=== PATIENT | male | born 1965 | race Caucasian/White ===

== ENCOUNTER 2016-07-16 17:17 | Inpatient (IN) | payer OTHER ==
[2016-07-16] MEDS ORDERED: SODIUM CHLORIDE 0.9% 1,000 ML IV STA (17:31)
[2016-07-16] MEDS ORDERED: RX INFO: IV CONTRAST WAS GIVEN 1 EACH MISC MISCELLANE PRN (17:31)
[2016-07-16] MEDS ORDERED: LORazepam 2 MG/ML SYRINGE IV STA (17:34)
[2016-07-16 17:36] LABS: Glucose,Whole Blood 93 mg/dL (75-99)
--- NOTE | 2016-07-16 17:36 | ED ---
General Adult HPI - General Chief complaint: Neuro Symptoms/Deficit Stated complaint: Right-sided weakness Time Seen by Provider: 07/16/16 17:24 Source: patient, family, RN notes reviewed Mode of arrival: wheelchair Limitations: no limitations - History of Present Illness Initial comments: Patient is a pleasant 50-year-old male presenting to the emergency Department with right sided weakness. Patient states around 3:00 he was walking and [employer] when his right arm suddenly dropped. Patient feels his right arm has mostly been weak since that time. Patient has had some twitching of the right arm. Patient has had twitching of the right face mostly persistent since that time. Patient did have some mild involvement of the right leg however that has been coming and going. Patient did have similar symptoms around a year ago associated with a stroke. No confusion. - Related Data Home Medications Medication Instructions Recorded Confirmed Buprenorphine HCl/Naloxone HCl 1 film SUBLINGUAL DAILY 07/16/16 07/16/16 [Suboxone 2 mg-0.5 mg Sl Film] Carvedilol [Coreg] 25 mg PO BID 07/16/16 07/16/16 QUEtiapine [SEROquel] 50 mg PO HS 07/16/16 07/16/16 Valsartan/Hydrochlorothiazide 1 tab PO DAILY 07/16/16 07/16/16 [Diovan Hct 160-25 mg Tablet] amLODIPine [Norvasc] 10 mg PO DAILY 07/16/16 07/16/16 hydrALAZINE HCL [Apresoline] 50 mg PO BID 07/16/16 07/16/16 levETIRAcetam [Keppra] 500 mg PO BID 07/16/16 07/16/16 Previous Rx's Medication Instructions Recorded Escitalopram [Lexapro] 20 mg PO DAILY #30 tab 01/28/16 Allergies Allergy/AdvReac Type Severity Reaction Status Date / Time No Known Allergies Allergy Verified 07/16/16 17:21 Review of Systems ROS Statement: Those systems with pertinent positive or pertinent negative responses have been documented in the HPI. ROS Other: All systems not noted in ROS Statement are negative. Constitutional: Denies: fever Eyes: Denies: eye pain ENT: Denies: ear pain Respiratory: Denies: cough Cardiovascular: Denies: chest pain Endocrine: Denies: fatigue Gastrointestinal: Denies: abdominal pain Genitourinary: Denies: dysuria Musculoskeletal: Denies: back pain Skin: Denies: rash Neurological: Reports: weakness, numbness. Denies: headache, confusion Past Medical History Past Medical History: Chest Pain / Angina, CVA/TIA, GERD/Reflux, Hypertension, Memory Impairment, Seizure Disorder Additional Past Medical History / Comment(s): He was tx for L intraparenchymal hemorrhage with R sided weakness of arm and leg and aphasia/dysphagia. He was discharged from there to rehab and had improvement in his R sided weakness, now has minimal slurring of words and pt states dysphagia. Other HX L lung pneumothorax d/t trauma yrs ago, , History of Any Multi-Drug Resistant Organisms: None Reported Past Surgical History: No Surgical Hx Reported Additional Past Surgical History / Comment(s): COLONOSCOPY POLYPS REMOVED-NEG, bilateral cataract removal, R testicular surgery as a little boy. Past Anesthesia/Blood Transfusion Reactions: No Reported Reaction Additional Past Anesthesia/Blood Transfusion Reaction / Comment(s): Pt has never recieved blood. 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 PT resides with a friend. He is independent with his ADLs. He uses a walker some of the time. He is suppose to be starting home PT soon-he was recently discharged from rehab. Pt has hx of ETOH abuse-he quit drinking 3 yrs ago with one slip last 2013. He has hx of polysubstance abuse per old record but pt states he has not used meds not prescribed to him. He smoked marijuana he states as a young person. He has had suicidal idealations in the past- but not recently. Smoking Status: Current some day smoker Past Alcohol Use History: None Reported Additional Past Alcohol Use History / Comment(s): STARTED SMOKING AT AGE-7- used to SMOKE 1.5 PPD BUT started cutting down in the past 2-3 weeks. PT HAS'NT DRANK IN 3 YEARS BUT USED TO BINGE DRINK FOR DAYS AT A TIME-he had one slip last 2013. WHEN YOUNGER SMOKED MARIJUANA NONE NOW Past Drug Use History: Prescription Drug Abuse Additional Drug Use History / Comment(s): Pt has hx of polysubstance abuse per PMR-Adderall/xanax/flexeril, however pt currently denies this. - Past Family History Father Family Medical History: Cancer, Hyperlipidemia, Hypertension, Prostate Disorder Additional Family Medical History / Comment(s): DAD IS 73, PROSTATE CA Mother Family Medical History: Osteoarthritis (OA) Additional Family Medical History / Comment(s): MOM IS 71 General Exam Limitations: no limitations General appearance: alert, other (Patient is having right-sided facial twitching persistent during exam. Patient also has some episodes of right distal arm and hand twitching.) Head exam: Present: atraumatic, normocephalic Eye exam: Present: normal appearance, PERRL ENT exam: Present: normal oropharynx Neck exam: Present: normal inspection Respiratory exam: Present: normal lung sounds bilaterally Cardiovascular Exam: Present: regular rate, normal rhythm GI/Abdominal exam: Present: soft. Absent: tenderness Extremities exam: Present: normal inspection Neurological exam: Present: alert Expanded Neurological exam: Present: protecting the airway, other (Right facial palsy that does not affect the forehead) Cranial nerves: EOM's Intact: Normal, Facial Sensation: Abnormal Right Sensory exam: Upper Extremity Light Touch: Abnormal Right, Lower Extremity Light Touch: Normal Motor strength exam: RUE: 4, LUE: 5, RLE: 5, LLE: 5 Eye Response: (4) open spontaneously Motor Response: (6) obeys commands Verbal Response: (5) oriented Psychiatric exam: Present: normal affect, normal mood Skin exam: Absent: rash Course Vital Signs 07/16/16 17:18 Temperature 97.6 F Pulse Rate 68 Respiratory 20 Rate Blood Pressure 136/78 O2 Sat by Pulse 100 Oximetry - Reevaluation(s) Reevaluation #1: 07/16/16 18:03 There is question of onset could have been around 2:00 however they feel was likely more 3:00. Patient has had some seizure activity. Patient does have 2 episodes of intercranial hemorrhage in 2015 and again in 2016. Secondary to all of these patient is felt to not be a good candidate for TPA. Case was discussed in detail with Dr. Dhillon who is in agreement the patient is not a good candidate for TPA. He has reviewed computed tomography scan and will still evaluate patient. Patient and family were updated. EKG Findings - EKG Comments: EKG Findings:: Sinus rhythm at 69. First degree AV block with a NE of 228. QRS 90. QT 418. QTC 447. Normal axis. Normal QRS. Normal ST-T. Medical Decision Making - Medical Decision Making Patient reevaluated and updated. did evaluate patient and recommends medical admission with aspirin and Lipitor and continued Keppra. Dr. Ervin has been paged for admission. - Lab Data Result diagrams: 07/16/16 17:32 07/16/16 17:32 Lab Results 07/16/16 07/16/16 07/16/16 Range/Units 17:32 17:32 17:32 WBC 5.7 (3.8-10.6) k/uL RBC 3.90 L (4.30-5.90) m/uL Hgb 12.2 L (13.0-17.5) gm/dL Hct 36.3 L (39.0-53.0) % MCV 93.2 (80.0-100.0) fL MCH 31.3 (25.0-35.0) pg MCHC 33.6 (31.0-37.0) g/dL RDW 12.5 (11.5-15.5) % Plt Count 261 (150-450) k/uL Neutrophils % 51 % Lymphocytes % 35 % Monocytes % 7 % Eosinophils % 4 % Basophils % 1 % Neutrophils # 2.9 (1.3-7.7) k/uL Lymphocytes # 2.0 (1.0-4.8) k/uL Monocytes # 0.4 (0-1.0) k/uL Eosinophils # 0.2 (0-0.7) k/uL Basophils # 0.1 (0-0.2) k/uL PT (9.0-12.0) sec INR (<1.1) APTT (22.0-30.0) sec Sodium 137 (137-145) mmol/L Potassium 4.7 (3.5-5.1) mmol/L Chloride 107 (98-107) mmol/L Carbon Dioxide 21 L (22-30) mmol/L Anion Gap 9 mmol/L BUN 29 H (9-20) mg/dL Creatinine 1.52 H (0.66-1.25) mg/dL Est GFR (MDRD) Af Amer 59 (>60 ml/min/1.73 sqM) Est GFR (MDRD) Non-Af 48 (>60 ml/min/1.73 sqM) Glucose 89 (74-99) mg/dL POC Glucose (mg/dL) (75-99) mg/dL POC Glu Yarn Dyer ID Calcium 9.6 (8.4-10.2) mg/dL Total Bilirubin 0.6 (0.2-1.3) mg/dL AST 15 L (17-59) U/L ALT 20 L (21-72) U/L Alkaline Phosphatase 47 (38-126) U/L Total Creatine Kinase 64 (55-170) U/L CK-MB (CK-2) 0.3 (0.0-2.4) ng/mL CK-MB (CK-2) Rel Index 0.5 Troponin I <0.012 (0.000-0.034) ng/mL Total Protein 7.1 (6.3-8.2) g/dL Albumin 4.4 (3.5-5.0) g/dL 07/16/16 07/16/16 Range/Units 17:32 17:35 WBC (3.8-10.6) k/uL RBC (4.30-5.90) m/uL Hgb (13.0-17.5) gm/dL Hct (39.0-53.0) % MCV (80.0-100.0) fL MCH (25.0-35.0) pg MCHC (31.0-37.0) g/dL RDW (11.5-15.5) % Plt Count (150-450) k/uL Neutrophils % % Lymphocytes % % Monocytes % % Eosinophils % % Basophils % % Neutrophils # (1.3-7.7) k/uL Lymphocytes # (1.0-4.8) k/uL Monocytes # (0-1.0) k/uL Eosinophils # (0-0.7) k/uL Basophils # (0-0.2) k/uL PT 10.3 (9.0-12.0) sec INR 1.0 (<1.1) APTT 24.5 (22.0-30.0) sec Sodium (137-145) mmol/L Potassium (3.5-5.1) mmol/L Chloride (98-107) mmol/L Carbon Dioxide (22-30) mmol/L Anion Gap mmol/L BUN (9-20) mg/dL Creatinine (0.66-1.25) mg/dL Est GFR (MDRD) Af Amer (>60 ml/min/1.73 sqM) Est GFR (MDRD) Non-Af (>60 ml/min/1.73 sqM) Glucose (74-99) mg/dL POC Glucose (mg/dL) 93 (75-99) mg/dL POC Glu Yarn Dyer ID Angela Geiger Calcium (8.4-10.2) mg/dL Total Bilirubin (0.2-1.3) mg/dL AST (17-59) U/L ALT (21-72) U/L Alkaline Phosphatase (38-126) U/L Total Creatine Kinase (55-170) U/L CK-MB (CK-2) (0.0-2.4) ng/mL CK-MB (CK-2) Rel Index Troponin I (0.000-0.034) ng/mL Total Protein (6.3-8.2) g/dL Albumin (3.5-5.0) g/dL - Radiology Data Radiology results: report reviewed (CTA shows no acute significant stenosis.), image reviewed (Computed tomography scan of brain shows old left-sided infarct, no acute Gemelli.) Critical Care Time Critical Care Time: Yes Total Critical Care Time: 32 Disposition Clinical Impression: Cerebrovascular accident, Seizure Disposition: ADMITTED IP TO THIS [facility] Condition: Serious
[2016-07-16 17:50] LABS: Basophils # (A) 0.1 k/uL (0-0.2); Basophils % (A) 1 %; CH 32.1; CHCM 34.5; Eosinophils # (A) 0.2 k/uL (0-0.7); Eosinophils % (A) 4 %; HCT 36.3 % (39.0-53.0); HDW 2.21; HGB 12.2 gm/dL (13.0-17.5); Luc # (Auto) 0.11; Luc % (Auto) 2; Lymphocytes % (A) 35 %; MCH 31.3 pg (25.0-35.0); MCHC 33.6 g/dL (31.0-37.0); MCV 93.2 fL (80.0-100.0); Monocytes # (A) 0.4 k/uL (0-1.0); Monocytes % (A) 7 %; Neutrophils # (A) 2.9 k/uL (1.3-7.7); Neutrophils % (A) 51 %; RDW 12.5 % (11.5-15.5); WBC 5.7 k/uL (3.8-10.6); WBC (Perox) 5.74
[2016-07-16 17:57] LABS: Partial Thromboplastin Time 24.5 sec (22.0-30.0); Prothrombin Time 10.3 sec (9.0-12.0)
[2016-07-16 18:00] LABS: Calcium 9.6 mg/dL (8.4-10.2); Potassium 4.7 mmol/L (3.5-5.1); Total Bilirubin 0.6 mg/dL (0.2-1.3); Total Protein 7.1 g/dL (6.3-8.2)
--- NOTE | 2016-07-16 18:05 | CT ---
EXAMINATION TYPE: CT brain wo con for TPA DATE OF EXAM: 07/16/2016 5:55 PM COMPARISON: 03/30/2015 HISTORY: 50 year-old male history of stroke. Right sided weakness. TECHNIQUE: Examination was done in axial plane without intravenous contrast. Coronal and sagittal r econstructions performed. CT DLP: 1451.20 mGycm Automated exposure control for dose reduction was used. FINDINGS: There is no evidence of acute intracranial hemorrhage, acute ischemic changes, mass, mass-effect, or extra-axial fluid collection. There is no effacement of cerebral sulci or basal subarachnoid cister ns. There is no hydrocephalus. There is no midline shift. Gordon-white matter distinction is preserv ed. Redemonstrated hypodensity at the left frontoparietal junction compatible with prior infarct. Complete opacification of the posterior left ethmoid air cells. Orbits and globes are intact. Mastoid air cells well pneumatized. 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 No acute intracranial abnormality seen. Follow-up CT or MRI if symptoms persist.
--- NOTE | 2016-07-16 18:12 | CT ---
EXAMINATION TYPE: CT angio head neck DATE OF EXAM: 07/16/2016 6:09 PM COMPARISON: Correlation CT brain same day HISTORY: 50-year-old male right-sided weakness, neurologic deficits. TECHNIQUE: Contiguous axial scanning of the neck and brain performed after administration of 65 mL Om nipaque 350 IV contrast. Coronal and sagittal MIP reconstructions performed. 3-D reconstructions gene rated on a dedicated independent workstation. CT DLP: 1451.2 mGycm Automated exposure control for dose reduction was used. FINDINGS: NECK: Conventional arch vessel branching anatomy. Both vertebral artery origins are patent and the vertebra l arteries are codominant and patent throughout her course. Both common carotid arteries are patent. No significant atherosclerotic change at the right carotid bifurcation. The right internal carotid ar bridget is patent. There is mild atherosclerotic change at the left carotid bulb without significant narrowing. HEAD: There is congenital variation of persistent origin of the right posterior cerebral artery Both vertebral, basilar, and internal carotid arteries remain patent. The anterior cerebral and middl e cerebral artery circulation appears satisfactory. No arterial occlusion, significant stenosis, or a neurysmal change is identified. IMPRESSION: 1. NO SIGNIFICANT COMMON CAROTID OR ICA STENOSIS ON EITHER SIDE. THE VERTEBRAL ARTERIES ARE CODOMINAN T AND PATENT. 2. 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 NO LARGE VESSEL INTRACRANIAL OCCLUSION, SIGNIFICANT STENOSIS, OR ANEURYSMAL CHANGE SEEN.
[2016-07-16 18:13] LABS: Creatine Kinase 64 U/L (55-170)
[2016-07-16 18:25] LABS: Creatine Kinase MB 0.3 ng/mL (0.0-2.4); Troponin I <0.012 ng/mL (0.000-0.034)
[2016-07-16] MEDS ORDERED: ASPIRIN 325 MG TAB PO STA (18:34)
[2016-07-16] MEDS ORDERED: ATORVASTATIN 80 MG TAB PO SCH (18:45)
--- NOTE | 2016-07-16 19:01 | XR ---
EXAMINATION TYPE: XR chest 1V portable DATE OF EXAM: 07/16/2016 6:36 PM Comparison: 01/19/2016 Clinical History: 50-year-old male, confusion, possible CVA, altered mental status Findings: The cardiomediastinal silhouette, aorta, and pulmonary vasculature are within normal limits. Some st zander atelectasis at the cardiac apex. Otherwise, lungs and pleural spaces are clear. Impression: No acute cardiopulmonary process.
[2016-07-16] MEDS ORDERED: SODIUM CHLORIDE 0.9% 500 ML IV STA (21:36)
[2016-07-16] MEDS: levETIRAcetam 500 MG TAB PO SCH (22:09)
[2016-07-16 22:15] VITALS: BMI 26.7
[2016-07-16] MEDS: SODIUM CHLORIDE 0.9% 1,000 ML IV SCH (22:24)
[2016-07-16] MEDS ORDERED: ACETAMINOPHEN TAB 325 MG TAB PO PRN (22:41)
[2016-07-16] MEDS ORDERED: QUEtiapine 50 MG TAB PO SCH (22:45)
[2016-07-17] MEDS: SODIUM CHLORIDE 0.9% 1,000 ML IV SCH ×3 (02:55→16:44)
[2016-07-17] MEDS: levETIRAcetam 500 MG TAB PO SCH ×2 (08:22→21:52)
[2016-07-17 08:59] LABS: Basophils # (A) 0.1 k/uL (0-0.2); Basophils % (A) 1 %; CH 31.6; CHCM 33.5; Eosinophils # (A) 0.2 k/uL (0-0.7); Eosinophils % (A) 3 %; HCT 31.2 % (39.0-53.0); HGB 10.4 gm/dL (13.0-17.5); Luc # (Auto) 0.08; Luc % (Auto) 2; Lymphocytes # (A) 1.8 k/uL (1.0-4.8); Lymphocytes % (A) 34 %; MCH 31.6 pg (25.0-35.0); MCHC 33.4 g/dL (31.0-37.0); MCV 94.8 fL (80.0-100.0); Mean Platelet Volume 7.1; Monocytes # (A) 0.3 k/uL (0-1.0); Monocytes % (A) 6 %; Neutrophils # (A) 2.9 k/uL (1.3-7.7); Neutrophils % (A) 54 %; RBC 3.29 m/uL (4.30-5.90); RDW 12.6 % (11.5-15.5); WBC 5.3 k/uL (3.8-10.6); WBC (Perox) 5.14
[2016-07-17] MEDS ORDERED: hydrALAZINE HCL 50 MG TAB PO SCH (09:00)
[2016-07-17] MEDS ORDERED: CARVEDILOL 12.5 MG TAB PO SCH (09:00)
[2016-07-17] MEDS ORDERED: amLODIPine 10 MG TAB PO SCH (09:00)
[2016-07-17 09:10] LABS: Calcium 8.4 mg/dL (8.4-10.2)
[2016-07-17] MEDS: ESCITALOPRAM 20 MG TAB PO SCH (10:00)
--- NOTE | 2016-07-17 10:45 | US ---
EXAMINATION TYPE: US carotid duplex BILAT DATE OF EXAM: 07/17/2016 9:00 AM COMPARISON: NONE CLINICAL HISTORY: Stenosis, CVA. EXAM MEASUREMENTS: RIGHT: Peak Systolic Velocity (PSV) cm/sec ----- Right CCA: 82.3 ----- Right ICA: 108.2 ----- Right ECA: 103.3 ICA/CCA ratio: 1.3 RIGHT: End Diastole cm/sec ----- Right CCA: 32.2 ----- Right ICA: 43.5 ----- Right ECA: 11.2 LEFT: Peak Systolic Velocity (PSV) cm/sec ----- Left CCA: 124.5 ----- Left ICA: 118.7 ----- Left ECA: 123.8 ICA/CCA ratio: 1.0 LEFT: End Diastole cm/sec ----- Left CCA: 39.1 ----- Left ICA: 42.2 ----- Left ECA: 26.8 VERTEBRALS (direction of flow): Right Vertebral: Antegrade Left Vertebral: Antegrade No significant velocity elevations. IMPRESSION: I DO NOT SEE EVIDENCE OF A HEMODYNAMICALLY SIGNIFICANT STENOSIS IN EITHER CAROTID SYSTEM. Criteria for Assigning % of Stenosis / Diameter reduction (Estimation based on the indirect measurements of the internal carotid artery velocities (ICA PSV). 1. Normal (no stenosis)=ICA PSV < 125 cm/s: ratio < 2.0: ICA EDV<40 cm/s. 2. Less than 50% stenosis=ICA PSV < 125 cm/s: ratio < 2.0: ICA EDV<40 cm/s. 3. 50 to 69% stenosis=ICA PSV of 125 to 230 cm/s: ration 2.0 ? 4.0: ICA EDV 40-100 cm/s. 4. Greater than 70% stenosis to near occlusion= ICA PSV > 230 cm/s: ratio > 4.0: ICA EDV > 100 cm/s. 5. Near occlusion= ICA PSV velocities may be low or undetectable: variable ratio and ICA EDV. 6. Total occlusion=unable to detect flow.
[2016-07-17] MEDS: ASPIRIN 325 MG TAB PO SCH (16:42)
--- NOTE | 2016-07-17 17:45 | P.HPIM ---
History of Present Illness H&P Date: 07/17/16 Chief Complaint: Right-sided weakness Patient is a 50-year-old male, with medical history significant for hemorrhagic CVA in 2015 with residual right arm numbness, GERD, hypertension, memory impairment, major depressive disorder, polysubstance abuse, alcohol abuse , and nicotine dependence. Patient presenting to the emergency department with complaints of right-sided weakness while he was walking stating his arm suddenly dropped. Patient also had some twitching of the right side of his face. CT of brain with evidence of old left frontoparietal junctional infarct. CT and graphically with no evidence of significant, carotid or ICA stenosis on either side. Carotid Doppler study with no evidence of significant stenosis in either carotid system. Chest x-ray with no acute cardiopulmonary process. Admission lab work with evidence of anemia with hemoglobin of 12.2 and acute renal failure with creatinine of 1.52. In the emergency department, patient was not felt to be a good candidate for TPA as time of onset was debatable. Patient was admitted to the selective care unit on aspirin, Lipitor, and Keppra will consult requested for neurology. Upon examination, patient is lying in bed. Patient states his right arm and leg still feels numb but less numb than yesterday. Patient denies recent illness, fevers, chills, shortness of breath, chest pain, headache, dysphagia, vision changes, tinnitus, abdominal pain, constipation or diarrhea, urinary frequency, urgency, or dysuria. Patient is urinating without difficulty. Past Medical History Past Medical History: Chest Pain / Angina, CVA/TIA, GERD/Reflux, Hypertension, Memory Impairment, Seizure Disorder Additional Past Medical History / Comment(s): He was tx for L intraparenchymal hemorrhage with R sided weakness of arm and leg and aphasia/dysphagia. He was discharged from there to rehab and had improvement in his R sided weakness, now has minimal slurring of words and pt states dysphagia. Other HX L lung pneumothorax d/t trauma yrs ago, , History of Any Multi-Drug Resistant Organisms: None Reported Past Surgical History: No Surgical Hx Reported Additional Past Surgical History / Comment(s): COLONOSCOPY POLYPS REMOVED-NEG, bilateral cataract removal, R testicular surgery as a little boy. Past Anesthesia/Blood Transfusion Reactions: No Reported Reaction Additional Past Anesthesia/Blood Transfusion Reaction / Comment(s): Pt has never recieved blood. 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 PT resides with a friend. He is independent with his ADLs. He uses a walker some of the time. He is suppose to be starting home PT soon-he was recently discharged from rehab. Pt has hx of ETOH abuse-he quit drinking 3 yrs ago with one slip last 2013. He has hx of polysubstance abuse per old record but pt states he has not used meds not prescribed to him. He smoked marijuana he states as a young person. He has had suicidal idealations in the past- but not recently. Smoking Status: Current every day smoker Past Alcohol Use History: None Reported Additional Past Alcohol Use History / Comment(s): STARTED SMOKING AT AGE-7- used to SMOKE 1.5 PPD Past Drug Use History: Prescription Drug Abuse Additional Drug Use History / Comment(s): Pt has hx of polysubstance abuse per PMR-Adderall/xanax/flexeril, however pt currently denies this. - Past Family History Father Family Medical History: Cancer, Hyperlipidemia, Hypertension, Prostate Disorder Additional Family Medical History / Comment(s): PROSTATE CA Mother Family Medical History: Osteoarthritis (OA) Additional Family Medical History / Comment(s): MOM IS 71 Medications and Allergies Home Medications Medication Instructions Recorded Confirmed Type Buprenorphine HCl/Naloxone HCl 1 film SUBLINGUAL DAILY 07/16/16 07/16/16 History [Suboxone 2 mg-0.5 mg Sl Film] Carvedilol [Coreg] 25 mg PO BID 07/16/16 07/16/16 History QUEtiapine [SEROquel] 50 mg PO HS 07/16/16 07/16/16 History Valsartan/Hydrochlorothiazide 1 tab PO DAILY 07/16/16 07/16/16 History [Diovan Hct 160-25 mg Tablet] amLODIPine [Norvasc] 10 mg PO DAILY 07/16/16 07/16/16 History hydrALAZINE HCL [Apresoline] 50 mg PO BID 07/16/16 07/16/16 History levETIRAcetam [Keppra] 500 mg PO BID 07/16/16 07/16/16 History Allergies Allergy/AdvReac Type Severity Reaction Status Date / Time No Known Allergies Allergy Verified 07/16/16 21:57 Physical Exam Vitals: Vital Signs Temp Pulse Pulse Pulse Resp BP BP 07/17/16 14:51 97.6 F 62 18 108/55 07/17/16 11:15 98.1 F 55 L 18 104/59 07/17/16 08:03 07/17/16 08:00 97.8 F 60 18 99/51 07/17/16 04:00 88 16 154/94 07/17/16 00:00 98.1 F 61 16 108/54 07/16/16 21:00 98.4 F 58 L 16 94/54 07/16/16 20:34 57 L 16 99/51 07/16/16 19:34 97.7 F 58 L 16 99/57 07/16/16 19:17 56 L 16 96/57 07/16/16 18:45 56 L 18 100/59 Pulse Ox 07/17/16 14:51 96 07/17/16 11:15 96 07/17/16 08:03 97 07/17/16 08:00 96 07/17/16 04:00 95 07/17/16 00:00 98 07/16/16 21:00 97 07/16/16 20:34 07/16/16 19:34 07/16/16 19:17 98 07/16/16 18:45 98 Intake and Output 07/17/16 07/17/16 07/17/16 06:59 14:59 22:59 Intake Total 875 1298.5 Output Total 450 250 Balance 425 1048.5 Intake: IV 875 1062.5 Sodium Chloride 0.9% 1, 875 1062.5 000 ml @ 125 mls/hr IV . Q8H [facility] Rx#:[id number] Oral 236 Output: Urine 450 250 Other: Voiding Method Urinal # Voids 1 Weight 75.1 kg 75.1 kg Patient Weight 07/18/16 06:59 Weight 75.1 kg GENERAL: Pt awake and alert, well-nourished, and in no acute distress. HEAD: Atraumatic, normocephalic. EYES: Pupils equal, round, and reactive to light, extraocular movements intact, sclera anicteric, conjunctiva are normal. ENT: Oropharynx clear without exudates. Moist mucous membranes. Tongue smooth, pink, no lesions, protrudes in midline. NECK:Normal range of motion, supple without lymphadenopathy or JVD. LUNGS: Breath sounds clear to auscultation bilaterally. No wheezes, rales, or rhonchi. HEART: Heart S1, S2, no S3 or S4. Regular rate and rhythm. No murmurs, rubs or gallops. ABDOMEN: Soft, nontender, nondistended, normoactive bowel sounds. No guarding, no rebound. No masses or organomegaly appreciated. EXTREMITIES: 2+ peripheral pulses. No edema. No calf tenderness. NEUROLOGICAL: Pt oriented x 3. Cranial nerves II through XII grossly intact. Strength and sensation slightly diminished to right upper extremity. Sensation slightly diminished to right lower extremity. PSYCH: Normal mood, normal affect. Normal speech. Good insight. Good judgment. SKIN: Warm, dry, intact. Normal turgor. No rashes or lesions. Results CBC & Chem 7: 07/17/16 08:33 07/17/16 08:33 Labs: Abnormal Lab Results - Last 24 Hours (Table) 07/17/16 07/17/16 Range/Units 08:33 08:33 RBC 3.29 L (4.30-5.90) m/uL Hgb 10.4 L (13.0-17.5) gm/dL Hct 31.2 L (39.0-53.0) % Chloride 110 H (98-107) mmol/L BUN 26 H (9-20) mg/dL Creatinine 1.51 H (0.66-1.25) mg/dL Glucose 132 H (74-99) mg/dL Chest x-ray: report reviewed Thrombosis Risk Factor Assmnt - DVT/VTE Prophylaxis DVT/VTE Prophylaxis: Mechanical Prophylaxis ordered - Choose All That Apply Any of the Below Risk Factors Present?: Yes Each Factor Represents 1 point: Age 41-60 years, Obesity (BMI >25) Other Risk Factors: No Other congenital or acquired thrombophilia - If yes, enter type in comment: Yes Each Risk Factor Represents 5 Points: Stroke (< 1 month) Thrombosis Risk Factor Assessment Total Risk Factor Score: 7 Thrombosis Risk Factor Assessment Level: High Risk Assessment and Plan Plan: Impression and plan: 1. Acute on chronic right-sided weakness suspect secondary to cerebrovascular accident. Neurology consult in place, recommendations pending. Continue full- strength aspirin, Lipitor 80 mg, advanced neuro assessments, PT/OT. 2. Right facial and right arm twitching suspect secondary to seizure activity. Continue Keppra 500 mg by mouth twice a day. 3. Anemia. Check iron studies. 3. Acute kidney injury suspect secondary to hypoperfusion and possible dehydration. Continue IV hydration. 4. History of hypertension. Will start blood pressure medication when systolic blood pressures greater than 140. 5. GERD. Continue Pepcid 20 mg daily. 6. Nicotine dependence. Smoking cessation encouraged. 7. History of seizures. Maintain seizure precautions. 8. History of polysubstance abuse in past. 9. History of remote alcohol abuse. 10. History of major depressive disorder. 11. DVT prophylaxis. Continue medical compression sleeves to bilateral lower extremities. Encouraged early ambulation. 12. GI prophylaxis. Continue Pepcid. 13. Repeat CBC and BMP in a.m. The above impression and plan have been discussed and directed Dr. Fisher. Mic WEISS acting as scribe for Dr. Fisher.
--- NOTE | 2016-07-17 18:24 | P.CNNES ---
History of Present Illness Consult date: 07/17/16 History of Present Illness: The patient is a 50-year-old man reports that yesterday around 3 PM he was at [facility] when suddenly his right arm became weaker. He states that he does have some right-sided weakness from a previous stroke one and a half years ago but yesterday while walking at [facility] his right arm became weaker and his right face seemed to droop more. Also felt some twitching of the right side of his face. That his arm became somewhat contorted towards his chest. Rent was with him drove him to the emergency room. Reports some improvement of symptoms today.'s right arm is now back to his baseline. Reports a history of seizures occurring 1-1/2 years ago at the time of his stroke. He states the stroke occurred 1-1/2 years ago and he reports taking medication for seizure. He the patient is on Keppra. 8 she is only had a total of 2 seizures. There was no reported seizure at [facility]. CT of the brain in the emergency room revealed old left frontoparietal infarct. He had a CTA which showed no significant stenosis he has also had a carotid ultrasound which was unremarkable Review of Systems Eyes: denies blurred vision, denies pain Cardiovascular: Denies chest pain, Denies shortness of breath Respiratory: Denies cough Neurological: Denies numbness, Denies weakness Psychiatric: Denies anxiety, Denies depression Past Medical History Past Medical History: Chest Pain / Angina, CVA/TIA, GERD/Reflux, Hypertension, Memory Impairment, Seizure Disorder Additional Past Medical History / Comment(s): He was tx for L intraparenchymal hemorrhage with R sided weakness of arm and leg and aphasia/dysphagia. He was discharged from there to rehab and had improvement in his R sided weakness, now has minimal slurring of words and pt states dysphagia. Other HX L lung pneumothorax d/t trauma yrs ago, , History of Any Multi-Drug Resistant Organisms: None Reported Past Surgical History: No Surgical Hx Reported Additional Past Surgical History / Comment(s): COLONOSCOPY POLYPS REMOVED-NEG, bilateral cataract removal, R testicular surgery as a little boy. Past Anesthesia/Blood Transfusion Reactions: No Reported Reaction Additional Past Anesthesia/Blood Transfusion Reaction / Comment(s): Pt has never recieved blood. 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 PT resides with a friend. He is independent with his ADLs. He uses a walker some of the time. He is suppose to be starting home PT soon-he was recently discharged from rehab. Pt has hx of ETOH abuse-he quit drinking 3 yrs ago with one slip last 2013. He has hx of polysubstance abuse per old record but pt states he has not used meds not prescribed to him. He smoked marijuana he states as a young person. He has had suicidal idealations in the past- but not recently. Smoking Status: Current every day smoker Past Alcohol Use History: None Reported Additional Past Alcohol Use History / Comment(s): STARTED SMOKING AT AGE-7- used to SMOKE 1.5 PPD Past Drug Use History: Prescription Drug Abuse Additional Drug Use History / Comment(s): Pt has hx of polysubstance abuse per PMR-Adderall/xanax/flexeril, however pt currently denies this. - Past Family History Father Family Medical History: Cancer, Hyperlipidemia, Hypertension, Prostate Disorder Additional Family Medical History / Comment(s): PROSTATE CA Mother Family Medical History: Osteoarthritis (OA) Additional Family Medical History / Comment(s): MOM IS 71 Medications and Allergies Home Medications Medication Instructions Recorded Confirmed Type Buprenorphine HCl/Naloxone HCl 1 film SUBLINGUAL DAILY 07/16/16 07/16/16 History [Suboxone 2 mg-0.5 mg Sl Film] Carvedilol [Coreg] 25 mg PO BID 07/16/16 07/16/16 History QUEtiapine [SEROquel] 50 mg PO HS 07/16/16 07/16/16 History Valsartan/Hydrochlorothiazide 1 tab PO DAILY 07/16/16 07/16/16 History [Diovan Hct 160-25 mg Tablet] amLODIPine [Norvasc] 10 mg PO DAILY 07/16/16 07/16/16 History hydrALAZINE HCL [Apresoline] 50 mg PO BID 07/16/16 07/16/16 History levETIRAcetam [Keppra] 500 mg PO BID 07/16/16 07/16/16 History Allergies Allergy/AdvReac Type Severity Reaction Status Date / Time No Known Allergies Allergy Verified 07/16/16 21:57 Physical Examination - Vital Signs Vital Signs: Vital Signs Temp Pulse Pulse Pulse Resp BP BP 07/17/16 14:51 97.6 F 62 18 108/55 07/17/16 11:15 98.1 F 55 L 18 104/59 07/17/16 08:03 07/17/16 08:00 97.8 F 60 18 99/51 07/17/16 04:00 88 16 154/94 07/17/16 00:00 98.1 F 61 16 108/54 07/16/16 21:00 98.4 F 58 L 16 94/54 07/16/16 20:34 57 L 16 99/51 07/16/16 19:34 97.7 F 58 L 16 99/57 07/16/16 19:17 56 L 16 96/57 07/16/16 18:45 56 L 18 100/59 Pulse Ox 07/17/16 14:51 96 07/17/16 11:15 96 07/17/16 08:03 97 07/17/16 08:00 96 07/17/16 04:00 95 07/17/16 00:00 98 07/16/16 21:00 97 07/16/16 20:34 07/16/16 19:34 07/16/16 19:17 98 07/16/16 18:45 98 Intake and Output 07/17/16 07/17/16 07/17/16 06:59 14:59 22:59 Intake Total 875 1298.5 Output Total 450 250 400 Balance 425 1048.5 -400 Intake: IV 875 1062.5 Sodium Chloride 0.9% 1, 875 1062.5 000 ml @ 125 mls/hr IV . Q8H [facility] Rx#:[id number] Oral 236 Output: Urine 450 250 400 Other: Voiding Method Urinal # Voids 1 # Bowel Movements 1 Weight 75.1 kg 75.1 kg Patient Weight 07/18/16 06:59 Weight 75.1 kg - Constitutional General appearance: average body habitus - EENT EENT: PERRL, hearing intact, vision intact - Respiratory Respiratory: lungs clear - Cardiovascular Cardiovascular: regular rate, normal S1, normal S2 - Neurologic Logic examination: Mental status he was awake alert and oriented he answered questions appropriately he was short tempered Cranial nerve examination pupils were 3 mm and equal there was no ptosis no nystagmus there was minimal right facial droop visual callejas were full extraocular movements were intact Motor examination he had a mild right arm drift next Coordination was intact next Gait could not be checked Speech examination: intact Sensorimotor examination: intact - Psychiatric Psychiatric: agitated Results - Laboratory Findings CBC and BMP: 07/17/16 08:33 07/17/16 08:33 Abnormal Lab Findings: Abnormal Labs 07/17/16 07/17/16 08:33 08:33 RBC 3.29 L Hgb 10.4 L Hct 31.2 L Chloride 110 H BUN 26 H Creatinine 1.51 H Glucose 132 H Assessment and Plan (1) Cerebrovascular accident Status: Acute Code(s): I63.9 - CEREBRAL INFARCTION, UNSPECIFIED (2) Multiple substance abuse Status: Chronic Code(s): F19.10 - OTHER PSYCHOACTIVE SUBSTANCE ABUSE, UNCOMPLICATED (3) Seizure Status: Chronic Code(s): R56.9 - UNSPECIFIED CONVULSIONS (4) Depression Status: Chronic Code(s): F32.9 - MAJOR DEPRESSIVE DISORDER, SINGLE EPISODE, UNSPECIFIED Plan: The patient has a history of old left frontal parietal infarct and presents to the hospital with acute exacerbation and possible new stroke. He is back to his baseline currently and he may have suffered a TIA. Recommend further evaluation with echocardiogram, EEG, and patient to start on aspirin daily and reports she was not taking any a platelet agent. Recommend check a trough Keppra level .
[2016-07-17] MEDS: QUEtiapine 50 MG TAB PO SCH (21:52)
[2016-07-17] MEDS: ATORVASTATIN 80 MG TAB PO SCH (21:52)
[2016-07-17 22:22] VITALS: RESP 16
[2016-07-18] MEDS: SODIUM CHLORIDE 0.9% 1,000 ML IV SCH ×3 (00:02→17:39)
[2016-07-18] MEDS ORDERED: NON-FORMULARY DRUG (Buprenorphine Hcl/Naloxone Hcl [Suboxone 2 Mg-0.5 Mg Sl Film] 1 FILM) SUBLINGUAL SCH (09:00)
[2016-07-18] MEDS: FAMOTIDINE 20 MG TAB PO SCH (09:44)
[2016-07-18] MEDS: ASPIRIN 325 MG TAB PO SCH (09:44)
[2016-07-18] MEDS: levETIRAcetam 500 MG TAB PO SCH ×2 (09:44→20:25)
[2016-07-18] MEDS: ESCITALOPRAM 20 MG TAB PO SCH (09:45)
[2016-07-18 11:43] LABS: Anion Gap 8 mmol/L; Blood Urea Nitrogen 16 mg/dL (9-20); Calcium 8.5 mg/dL (8.4-10.2); Carbon Dioxide 21 mmol/L (22-30); Chloride 114 mmol/L (98-107); Glucose 89 mg/dL (74-99); Iron 78 ug/dL (49-181); Non-African American GFR(MDRD) 53 (>60 ml/min/1.73 sqM); Potassium 4.5 mmol/L (3.5-5.1); Sodium 143 mmol/L (137-145)
--- NOTE | 2016-07-18 11:46 | ECHOF ---
Referral Reason:Thrombus MEASUREMENTS -------- HEIGHT: 167.6 cm WEIGHT: 74.8 kg BP: 154/94 RVIDd: 3.5 cm (< 3.3) IVSd: 0.9 cm (0.6 - 1.1) LVIDd: 5.1 cm (3.9 - 5.3) LVPWd: 0.7 cm (0.6 - 1.1) IVSs: 1.8 cm LVIDs: 2.5 cm LVPWs: 1.9 cm LAESV Index (A-L): 34.72 ml/m Ao Diam: 2.8 cm (2.0 - 3.7) AV Cusp: 1.8 cm (1.5 - 2.6) LA Diam: 3.4 cm (2.7 - 3.8) MV EXCURSION: 14.967 mm (> 18.000) MV EF SLOPE: 61 mm/s (70 - 150) MV E Jose: 1.18 m/s MV DecT: 236 ms MV A Jose: 0.90 m/s MV E/A Ratio: 1.31 RAP: 5.00 mmHg RVSP: 11.54 mmHg FINDINGS -------- Sinus rhythm. This was a technically good study. Left ventricular wall thickness is normal. Overall left ventricular systolic function is normal with, an EF between 60 - 65 %. The right ventricle is mildly enlarged. Moderator band is visualized in the right ventricular apex. LA is moderately dilated 34-39 ml/m2 The right atrium is normal in size. Aortic valve is trileaflet and is mildly thickened. The mitral valve leaflets are mildly thickened. There is trace mitral regurgitation. Trace tricuspid regurgitation present. The right ventricular systolic pressure, as measured by Doppler, is 11.54mmHg. The pulmonic valve is normal. The aortic root size is normal. The pericardium is normal. CONCLUSIONS -------- 1. Sinus rhythm. 2. The mitral valve leaflets are mildly thickened. 3. There is trace mitral regurgitation. 4. Trace tricuspid regurgitation present. 5. The right ventricular systolic pressure, as measured by Doppler, is 11.54mmHg. 6. The pulmonic valve is normal. 7. The aortic root size is normal. 8. The pericardium is normal. 9. This was a technically good study. 10. Left ventricular wall thickness is normal. 11. Overall left ventricular systolic function is normal with, an EF between 60 - 65 %. 12. The right ventricle is mildly enlarged. 13. Moderator band is visualized in the right ventricular apex. 14. LA is moderately dilated 34-39 ml/m2 15. The right atrium is normal in size. 16. Aortic valve is trileaflet and is mildly thickened. HOUSE PAINTING INSTRUCTOR: Taryn Ogden RDCS
[2016-07-18 11:52] LABS: % Iron Saturation 33.5 % (20-50); Total Iron Binding Capacity 233 ug/dL (261-462)
[2016-07-18 12:47] LABS: Vitamin B12 411 pg/mL (239-931)
[2016-07-18 14:15] LABS: Basophils # (A) 0.1 k/uL (0-0.2); Basophils % (A) 2 %; CH 31.6; Eosinophils # (A) 0.2 k/uL (0-0.7); Eosinophils % (A) 5 %; HCT 32.7 % (39.0-53.0); HDW 2.17; HGB 10.8 gm/dL (13.0-17.5); Luc # (Auto) 0.09; Luc % (Auto) 2; Lymphocytes # (A) 1.7 k/uL (1.0-4.8); Lymphocytes % (A) 32 %; MCH 31.6 pg (25.0-35.0); MCHC 32.9 g/dL (31.0-37.0); MCV 96.1 fL (80.0-100.0); Mean Platelet Volume 7.7; Monocytes # (A) 0.4 k/uL (0-1.0); Monocytes % (A) 7 %; Neutrophils # (A) 2.8 k/uL (1.3-7.7); Neutrophils % (A) 54 %; RDW 12.7 % (11.5-15.5); WBC 5.2 k/uL (3.8-10.6); WBC (Perox) 5.14
[2016-07-18] MEDS: QUEtiapine 50 MG TAB PO SCH (20:25)
[2016-07-18] MEDS: ATORVASTATIN 80 MG TAB PO SCH (20:25)
[2016-07-19] MEDS: SODIUM CHLORIDE 0.9% 1,000 ML IV SCH (04:23)
[2016-07-19] MEDS: ASPIRIN 325 MG TAB PO SCH (08:35)
[2016-07-19] MEDS: levETIRAcetam 500 MG TAB PO SCH (08:35)
[2016-07-19] MEDS: FAMOTIDINE 20 MG TAB PO SCH (08:36)
[2016-07-19] MEDS: ESCITALOPRAM 20 MG TAB PO SCH (08:36)
[2016-07-19 10:20] VITALS: BP 117/59; PULSE 72; TEMP 96.8
--- NOTE | 2016-07-19 10:25 | EEG ---
DATE OF SERVICE: 07/18/2016 INDICATIONS FOR EXAMINATION: This patient is a 50-year-old male being evaluated for right-sided weakness and possible TIA. Patient also with twitching of the right facial muscles. EEG to rule out seizure disorder. AGE: 50Y EEG FINDINGS: A routine 21-channel, awake digital EEG recording was accomplished utilizing the 10 - 20 international system with bipolar and referential montages. The background activity in the most alert resting state consists of a low to medium amplitude, fairly well-developed and well-sustained 6 Hz activity over the posterior head regions. This posterior rhythm attenuates to eye opening. There is a small amount of low amplitude 18 - 20 Hz beta activity seen maximally over the anterior head regions. Muscle and movement artifact was observed on several occasions during the tracing. Hyperventilation was not performed. Photic stimulation at flash frequencies of 2 - 30 Hz produced a minimal occipital driving response. No epileptiform discharges were seen. IMPRESSION: This EEG is moderately abnormal in diffuse fashion due to slowing of the EEG background. The EEG failed to reveal any focal, lateralized or epileptiform abnormalities. If clinically indicated, a followup EEG is recommended. Clinical correlation is recommended.
--- NOTE | 2016-07-19 15:21 | P.DS ---
Providers Date of admission: 07/16/16 18:34 Expected date of discharge: 07/19/16 Attending physician: Srikanth Ervin Consults: Dr. Aldo Lai neurology service Primary care physician: Srikanth Ervin [facility] Course: Patient is a 50-year-old male, with medical history significant for hemorrhagic CVA in 2014 with residual right arm numbness, GERD, hypertension, memory impairment, major depressive disorder, polysubstance abuse, alcohol abuse , and nicotine dependence. Patient presenting to the emergency department with complaints of right-sided weakness while he was walking stating his arm suddenly dropped. Patient also had some twitching of the right side of his face. CT of brain with evidence of old left frontoparietal junctional infarct. CT and graphically with no evidence of significant, carotid or ICA stenosis on either side. Carotid Doppler study with no evidence of significant stenosis in either carotid system. Chest x-ray with no acute cardiopulmonary process. Admission lab work with evidence of anemia with hemoglobin of 12.2 and acute renal failure with creatinine of 1.52. In the emergency department, patient was not felt to be a good candidate for TPA as time of onset was debatable. Patient was admitted to the selective care unit on aspirin, Lipitor, and Keppra with consult requested for neurology. Patient's symptoms resolved back to baseline during his hospital stay. Patient did have facial twitching and Keppra was increased to 750 mg twice a day per neurology. Patient will have Keppra level checked in 1 week after discharge. Patient was felt stable for discharge to home with follow-up in the outpatient setting. Discharge diagnoses: 1. Acute on chronic right-sided weakness suspect secondary to TIA with history of cerebrovascular accident. 2. Right facial and right arm twitching suspect secondary to seizure activity, resolved. 3. Anemia, suspect secondary to acute kidney injury. 3. Acute kidney injury suspect secondary to hypoperfusion and possible dehydration, improved. Blood pressure medications have been discontinued. 4. History of hypertension. 5. GERD. 6. Nicotine dependence. 7. History of seizures. 8. History of polysubstance abuse in past. 9. History of remote alcohol abuse. 10. History of major depressive disorder. The above impression and plan have been discussed and directed by Dr. Fisher. Mic WEISS acting as scribe for Dr. Fisher. Pertinent Studies: Brain CT; chest x-ray; angiographic CT; EKG; echocardiogram with Doppler; carotid Doppler study Procedures: EEG; brain CT; chest x-ray; angiographic CT; echocardiogram with Doppler Patient Condition at Discharge: Good Plan - Discharge Summary New Discharge Prescriptions: Aspirin 325 mg PO DAILY #30 tab Atorvastatin [Lipitor] 80 mg PO HS #30 tab levETIRAcetam [Keppra] 750 mg PO BID #60 tab Discharge Medication List Escitalopram [Lexapro] 20 mg PO DAILY #30 tab 01/28/16 [Rx] Buprenorphine HCl/Naloxone HCl [Suboxone 2 mg-0.5 mg Sl Film] 1 film SUBLINGUAL DAILY 07/16/16 [History] QUEtiapine [SEROquel] 50 mg PO HS 07/16/16 [History] Acetaminophen Tab [Tylenol] 650 mg PO Q6HR PRN #0 tab 07/18/16 [Rx] Aspirin 325 mg PO DAILY #30 tab 07/18/16 [Rx] Atorvastatin [Lipitor] 80 mg PO HS #30 tab 07/18/16 [Rx] levETIRAcetam [Keppra] 750 mg PO BID #60 tab 07/19/16 [Rx] Follow up Appointment(s)/Referral(s): Natalee Lai MD [STAFF PHYSICIAN] - 08/02/16 2:15 pm Srikanth Ervin MD [Primary Care Provider] - 1-2 days (SundayJuly 28 at 4:15) Ambulatory/Diagnostic Orders: Miscellaneous Lab Order [LAB.AMB] Time Frame: 07/26/16, Location: Determined By Patient Patient Instructions/Handouts: Transient Ischemic Attack (DC) Activity/Diet/Wound Care/Special Instructions: Heart healthy diet No driving Keppra level in one week Discharge Disposition: HOME SELF-CARE
--- NOTE | 2016-07-19 15:25 | P.PN ---
Subjective Principal diagnosis: TIA Patient is a 50-year-old male, with medical history significant for hemorrhagic CVA in 2015 with residual right arm numbness, GERD, hypertension, memory impairment, major depressive disorder, polysubstance abuse, alcohol abuse , and nicotine dependence. Patient presenting to the emergency department with complaints of right-sided weakness while he was walking stating his arm suddenly dropped. Patient also had some twitching of the right side of his face. CT of brain with evidence of old left frontoparietal junctional infarct. CT and graphically with no evidence of significant, carotid or ICA stenosis on either side. Carotid Doppler study with no evidence of significant stenosis in either carotid system. Chest x-ray with no acute cardiopulmonary process. Admission lab work with evidence of anemia with hemoglobin of 12.2 and acute renal failure with creatinine of 1.52. In the emergency department, patient was not felt to be a good candidate for TPA as time of onset was debatable. Patient was admitted to the selective care unit on aspirin, Lipitor, and Keppra will consult requested for neurology. Upon examination, patient is lying in bed. Patient states his right arm numbness is back to baseline. Patient denies right leg numbness. Patient complains of right sided facial twitching. Patient denies recent illness, fevers, chills, shortness of breath, chest pain, headache, dysphagia, vision changes, tinnitus, abdominal pain, constipation or diarrhea, urinary frequency, urgency, or dysuria. Patient is urinating without difficulty. Patient has been up ambulating to the bathroom without difficulty. Patient is scheduled for EEG. Objective - Vital Signs Vital signs: Vital Signs Temp 96.8 F L 07/19/16 08:00 Pulse 72 07/19/16 11:51 Resp 16 07/19/16 11:51 BP 117/59 07/19/16 08:00 Pulse Ox 96 07/19/16 08:00 Intake & Output 07/18/16 07/19/16 07/19/16 18:59 06:59 18:59 Intake Total 1380 300 240 Output Total 300 Balance 1380 0 240 Weight 78 kg Intake: IV 900 Sodium Chloride 0.9% 1, 900 000 ml @ 125 mls/hr IV . Q8H [facility] Rx#:[id number] Oral 480 300 240 Output: Urine 300 Other: Voiding Method Toilet Urinal # Voids 1 1 # Bowel Movements 0 - Exam GENERAL: Pt awake and alert, well-nourished, and in no acute distress. HEAD: Atraumatic, normocephalic. EYES: Pupils equal, round, and reactive to light, extraocular movements intact, sclera anicteric, conjunctiva are normal. ENT: Oropharynx clear without exudates. Moist mucous membranes. Tongue smooth, pink, no lesions, protrudes in midline. NECK:Normal range of motion, supple without lymphadenopathy or JVD. LUNGS: Breath sounds clear to auscultation bilaterally. No wheezes, rales, or rhonchi. HEART: Heart S1, S2, no S3 or S4. Regular rate and rhythm. No murmurs, rubs or gallops. ABDOMEN: Soft, nontender, nondistended, normoactive bowel sounds. No guarding, no rebound. No masses or organomegaly appreciated. EXTREMITIES: 2+ peripheral pulses. No edema. No calf tenderness. NEUROLOGICAL: Pt oriented x 3. Cranial nerves II through XII grossly intact. Strength and sensation slightly diminished to right upper extremity. Facial twitching noted to right face. PSYCH: Normal mood, normal affect. Normal speech. Good insight. Good judgment. SKIN: Warm, dry, intact. Normal turgor. No rashes or lesions. - Labs CBC & Chem 7: 07/18/16 10:47 07/18/16 10:47 Assessment and Plan Plan: Impression and plan: 1. Acute on chronic right-sided weakness suspect secondary to cerebrovascular accident. Neurology consult in place, recommendations noted. Continue full- strength aspirin, Lipitor 80 mg, advanced neuro assessments, PT/OT. 2. Right facial and right arm twitching suspect secondary to seizure activity. Continue Keppra 500 mg by mouth twice a day. 3. Anemia, suspect secondary to acute kidney injury. 3. Acute kidney injury suspect secondary to hypoperfusion and possible dehydration, improved. 4. History of hypertension. Continue to hold blood pressure medications. 5. GERD. Continue Pepcid 20 mg daily. 6. Nicotine dependence. Smoking cessation encouraged. 7. History of seizures. Maintain seizure precautions. 8. History of polysubstance abuse in past. 9. History of remote alcohol abuse. 10. History of major depressive disorder. 11. DVT prophylaxis. Continue medical compression sleeves to bilateral lower extremities. Encouraged early ambulation. 12. GI prophylaxis. Continue Pepcid. 13. Repeat CBC and BMP in a.m. The above impression and plan have been discussed and directed Dr. Fisher. Mic WEISS acting as scribe for Dr. Fisher.
== END 2016-07-19 12:55 | disposition home or self-care (01) | DRG 101 ==
LOC: EC 17:17 → 6SEL 18:34
PROVIDERS: ADMIT Family Medicine; ATTEND Family Medicine
DX: G40.909 Epilepsy, unspecified, not intractable, without status epilepticus (principal); N17.9 Acute kidney failure, unspecified; G45.9 Transient cerebral ischemic attack, unspecified; I69.351 Hemiplegia and hemiparesis following cerebral infarction affecting right dominant side; E86.0 Dehydration; D64.9 Anemia, unspecified; I10 Essential (primary) hypertension; K21.9 Gastro-esophageal reflux disease without esophagitis; F17.200 Nicotine dependence, unspecified, uncomplicated; F41.0 Panic disorder [episodic paroxysmal anxiety]; F32.9 Major depressive disorder, single episode, unspecified; F10.10 Alcohol abuse, uncomplicated; Z86.010 Personal history of colon polyps; Z87.898 Personal history of other specified conditions; Z98.42 Cataract extraction status, left eye; Z98.41 Cataract extraction status, right eye; Z79.899 Other long term (current) drug therapy
CPT/HCPCS: 36415; 70450; 70496; 70498; 71010; 80048; 80053; 80177; 82550; 82553; 82607; 82728; 82746; 83540; 83550; 84484; 85025; 85610; 85730; 93005; 93306; 93880; 94760; 95816

== ENCOUNTER → 2016-12-08 | Outpatient (CLI) | payer OTHER ==
--- NOTE | 2016-12-08 11:49 | CT ---
EXAMINATION TYPE: CT brain wo con DATE OF EXAM: 12/08/2016 COMPARISON: 07/16/2016 HISTORY: Dizziness, Rt side weakness CT DLP: 1036 mGycm Automated exposure control for dose reduction was used. FINDINGS: Extensive changes of sinusitis involving the ethmoid air cells on the left. Orbits have a normal appe arance. Ventricular system is midline. Intracranial atherosclerotic changes are noted. No acute hemorrhage or mass effect. Ventricular system is age compatible in size. Area of low attenuation left parietal white matter compatible with remote ischemia. Calvarium is intact. IMPRESSION: NO DEFINITE ACUTE PROCESS. Findings suggestive remote infarct left parietal lobe with no acute hemorr alexandra or mass effect. If there is concern for acute ischemia than MRI would BE recommended Changes of chronic sinusitis.
== END | disposition home or self-care (01) ==
LOC: RADCTMAIN 11:15
PROVIDERS: ATTEND Family Medicine
DX: I61.2 Nontraumatic intracerebral hemorrhage in hemisphere, unspecified (principal)
CPT/HCPCS: 70450

== ENCOUNTER 2017-04-22 18:47 | Inpatient (IN) | payer OTHER ==
[2017-04-22] MEDS ORDERED: SODIUM CHLORIDE 0.9% 1,000 ML IV STA (18:56)
[2017-04-22 19:00] LABS: Glucose,Whole Blood 99 mg/dL (75-99)
[2017-04-22 19:26] LABS: Basophils # (A) 0.1 k/uL (0-0.2); Basophils % (A) 1 %; Eosinophils # (A) 0.3 k/uL (0-0.7); Eosinophils % (A) 4 %; HCT 44.5 % (39.0-53.0); Lymphocytes # (A) 2.3 k/uL (1.0-4.8); Lymphocytes % (A) 35 %; MCH 31.7 pg (25.0-35.0); MCHC 33.8 g/dL (31.0-37.0); MCV 93.8 fL (80.0-100.0); Mean Platelet Volume 7.3; Monocytes # (A) 0.5 k/uL (0-1.0); Monocytes % (A) 7 %; Neutrophils # (A) 3.3 k/uL (1.3-7.7); Neutrophils % (A) 50 %; Platelet Count 237 k/uL (150-450); RBC 4.75 m/uL (4.30-5.90); RDW 13.6 % (11.5-15.5); WBC 6.7 k/uL (3.8-10.6)
--- NOTE | 2017-04-22 19:35 | CT ---
EXAMINATION TYPE: CT brain wo con DATE OF EXAM: 04/22/2017 COMPARISON: 12/08/2016 HISTORY: Seizure activity. CT DLP: 1074.1 mGycm Automated exposure control for dose reduction was used. FINDINGS: Ventricles appear normal. There is no mass effect nor midline shift. There is no sign of intracranial hemorrhage. There is hypodensity in the left parietal lobe convexity consistent with old infarct. Th is measures 3 x 2 cm. Calvarium is intact. IMPRESSION: OLD LEFT PARIETAL CORTICAL INFARCT. NO ACUTE INTRACRANIAL ABNORMALITY. NO CHANGE.
[2017-04-22 19:44] LABS: ALT 40 U/L (21-72); AST 29 U/L (17-59); Albumin 4.3 g/dL (3.5-5.0); Alcohol <10 mg/dL; Alkaline Phosphatase 91 U/L (38-126); Anion Gap 18 mmol/L; Blood Urea Nitrogen 19 mg/dL (9-20); Calcium 9.4 mg/dL (8.4-10.2); Carbon Dioxide 21 mmol/L (22-30); Chloride 100 mmol/L (98-107); Glucose 99 mg/dL (74-99); Phenytoin (Dilantin) <3.0 ug/mL; Potassium 3.6 mmol/L (3.5-5.1); Sodium 139 mmol/L (137-145); Total Bilirubin 0.4 mg/dL (0.2-1.3); Total Protein 6.9 g/dL (6.3-8.2)
[2017-04-22 21:31] LABS: Appearance,Urine Clear (Clear); Bilirubin,Urine Negative (Negative); Blood,Urine Trace (Negative); Color,Urine Yellow; Glucose,Urine (UA) Negative (Negative); Ketones,Urine Negative (Negative); Leukocyte Esterase,Urine Negative (Negative); Mucus,Urine Rare /hpf; Nitrite,Urine Negative (Negative); PH, Urine 6.5 (5.0-8.0); Protein,Urine Negative (Negative); RBC,Urine 2 /hpf (0-5); Specific Gravity,Urine 1.013 (1.001-1.035); Urobilinogen,Urine <2.0 mg/dL (<2.0); WBC,Urine 1 /hpf (0-5)
[2017-04-22 21:36] LABS: Amphetamine Screen,Urine Not Detected (NotDetected); Barbiturate Screen,Urine Detected (NotDetected); Benzodiazepines Screen,Urine Not Detected (NotDetected); Cocaine Screen,Urine Not Detected (NotDetected); Methadone Screen, Urine Not Detected (NotDetected); Opiate Screen,Urine Not Detected (NotDetected); Oxycodone Screen, Urine Not Detected (NotDetected); Phencyclidine Screen,Urine Not Detected (NotDetected); Tricyclic Antidepressant,Urine Detected (NotDetected); Urn Cannabinoid Scrn Not Detected (NotDetected)
[2017-04-22] MEDS ORDERED: PHENYTOIN SODIUM INJ 50 MG/ML 2 ML VIAL IVP STA (22:36)
[2017-04-22] MEDS ORDERED: ONDANSETRON 4 MG/2 ML VIAL IVP STA (22:37)
[2017-04-22] MEDS ORDERED: HYDROmorphone 2 MG/ML 1 ML SYRINGE IVP STA (22:37)
--- NOTE | 2017-04-22 22:41 | ED ---
Seizure HPI - General Chief Complaint: Seizure Stated Complaint: seizure Time Seen by Provider: 04/22/17 18:53 Source: EMS Mode of arrival: EMS Limitations: altered mental status - History of Present Illness Initial Comments: 30 years old gentleman with a history of seizure disorder and CVA in the past and brought in by ambulance with a recurrent seizure he was quite elevated and they declared him unresponsive on arrival he was only responding to sternal rub but later his GCS improved to 15 minutes but then his arrival to the ER. He said he has been quite compliant with his medications he denies any alcohol or any street drugs. He is complaining about the headache blurred vision no chest pain or shortness of breath abdominal pain no frequency urgency dysuria - Related Data Home Medications Medication Instructions Recorded Confirmed Aspirin EC [Ecotrin] 325 mg PO DAILY 04/22/17 04/22/17 Buprenorphine HCl/Naloxone HCl 1 film SL DAILY 04/22/17 04/22/17 [Suboxone 4 mg-1 mg Sl Film] Buprenorphine HCl/Naloxone HCl 1 film SL DAILY 04/22/17 04/22/17 [Suboxone 8 mg-2 mg Sl Film] Carvedilol [Coreg] 25 mg PO BID 04/22/17 04/22/17 Phenytoin Sodium Extended 100 mg PO TID 04/22/17 04/22/17 [Dilantin] QUEtiapine FUMARATE [SEROquel] 200 mg PO HS 04/22/17 04/22/17 Valsartan/Hydrochlorothiazide 1 tab PO DAILY 04/22/17 04/22/17 [Valsartan-Hctz 160-25 mg Tab] Previous Rx's Medication Instructions Recorded Escitalopram [Lexapro] 20 mg PO DAILY #30 tab 01/28/16 Atorvastatin [Lipitor] 80 mg PO HS #30 tab 07/18/16 levETIRAcetam [Keppra] 750 mg PO BID #60 tab 07/19/16 Allergies Allergy/AdvReac Type Severity Reaction Status Date / Time No Known Allergies Allergy Verified 04/22/17 19:00 Review of Systems ROS Statement: Those systems with pertinent positive or pertinent negative responses have been documented in the HPI. ROS Other: All systems not noted in ROS Statement are negative. Past Medical History Past Medical History: Chest Pain / Angina, CVA/TIA, GERD/Reflux, Hypertension, Memory Impairment, Seizure Disorder Additional Past Medical History / Comment(s): He was tx for L intraparenchymal hemorrhage with R sided weakness of arm and leg and aphasia/dysphagia. He was discharged from there to rehab and had improvement in his R sided weakness, now has minimal slurring of words and pt states dysphagia. Other HX L lung pneumothorax d/t trauma yrs ago, , History of Any Multi-Drug Resistant Organisms: None Reported Past Surgical History: No Surgical Hx Reported Additional Past Surgical History / Comment(s): COLONOSCOPY POLYPS REMOVED-NEG, bilateral cataract removal, R testicular surgery as a little boy. Past Anesthesia/Blood Transfusion Reactions: No Reported Reaction Additional Past Anesthesia/Blood Transfusion Reaction / Comment(s): Pt has never recieved blood. Past Psychological History: Anxiety, Bipolar, Depression, Panic Disorder Smoking Status: Current every day smoker Past Alcohol Use History: None Reported Past Drug Use History: Prescription Drug Abuse - Past Family History Father Family Medical History: Cancer, Hyperlipidemia, Hypertension, Prostate Disorder Additional Family Medical History / Comment(s): PROSTATE CA Mother Family Medical History: Osteoarthritis (OA) Additional Family Medical History / Comment(s): MOM IS 71 General Exam - General Exam Comments Initial Comments: General: The patient is a response to the sternal rub but within 5 minutes his GCS improved to 15 Skin: Skin is warm and dry and no rashes or lesions are noted. Eye: Pupils are equal, round and reactive to light, extra-ocular movements are intact; there is normal conjunctiva bilaterally. Ears, nose, mouth and throat: There are moist mucous membranes and no oral lesions. Neck: The neck is supple, there is no tenderness or JVD. Cardiovascular: There is a regular rate and rhythm. No murmur, rub or gallop is appreciated. Respiratory: To auscultation bilateral, no wheezing no rhonchi no distress respiratory berry noticed Gastrointestinal: Soft, non-distended, non-tender abdomen without masses or organomegaly noted. There is no rebound or guarding present. Bowel sounds are unremarkable. Back: There is no tenderness to palpation in the midline. There is no obvious deformity. Musculoskeletal: Normal ROM, no tenderness, There is no pedal edema. There is no calf tenderness or swelling. No cords were appreciated. Neurological: CN II-XII intact, Cranial nerves III through XII are intact. There are no obvious motor or sensory deficits. Coordination appears grossly intact. Speech is normal. Psychiatric: Cooperative, appropriate mood & affect, normal judgment. Limitations: altered mental status Course Vital Signs 04/22/17 04/22/17 04/22/17 18:53 19:01 21:20 Temperature 98.1 F Pulse Rate 74 77 66 Respiratory 16 20 18 Rate Blood Pressure 131/68 112/64 99/60 O2 Sat by Pulse 100 99 97 Oximetry 04/22/17 22:00 Temperature Pulse Rate 66 Respiratory 20 Rate Blood Pressure 119/69 O2 Sat by Pulse 97 Oximetry EKG is sinus rhythm with a first-degree AV block is ventricular rate is 77 MO interval is 234 QRS duration is 96 QT/QTc is 48/473 56 EKG reveal any T-wave inversion in lead [address] depression in lead [address] elevation or ST depression noticed progressively She was reassessed at 20/200, his CBC looks normal, she had 2 bicarb is slightly low urinalysis is normal head CT shows old CVA her Dilantin level is quite low though he states that he has been compliant. He forgot his Dilantin and asked what caused the seizure at 20/200 he is reluctant to go home he said he'll be lives alone in his seizure pattern is quite quite quite scary and she had a seizure. He had recurrent seizures following 24 hours + he do not want to go home and I agree with him, he be admitted to Dr. Ervin service and will allow consult neurology Dr. Lai the contrast Medical Decision Making - Lab Data Result diagrams: 04/22/17 18:56 04/22/17 18:56 Lab Results 04/22/17 04/22/17 04/22/17 Range/Units 18:56 18:56 18:58 WBC 6.7 (3.8-10.6) k/uL RBC 4.75 (4.30-5.90) m/uL Hgb 15.0 (13.0-17.5) gm/dL Hct 44.5 (39.0-53.0) % MCV 93.8 (80.0-100.0) fL MCH 31.7 (25.0-35.0) pg MCHC 33.8 (31.0-37.0) g/dL RDW 13.6 (11.5-15.5) % Plt Count 237 (150-450) k/uL Neutrophils % 50 % Lymphocytes % 35 % Monocytes % 7 % Eosinophils % 4 % Basophils % 1 % Neutrophils # 3.3 (1.3-7.7) k/uL Lymphocytes # 2.3 (1.0-4.8) k/uL Monocytes # 0.5 (0-1.0) k/uL Eosinophils # 0.3 (0-0.7) k/uL Basophils # 0.1 (0-0.2) k/uL Sodium 139 (137-145) mmol/L Potassium 3.6 (3.5-5.1) mmol/L Chloride 100 (98-107) mmol/L Carbon Dioxide 21 L (22-30) mmol/L Anion Gap 18 mmol/L BUN 19 (9-20) mg/dL Creatinine 1.20 (0.66-1.25) mg/dL Est GFR (MDRD) Af Amer >60 (>60 ml/min/1.73 sqM) Est GFR (MDRD) Non-Af >60 (>60 ml/min/1.73 sqM) Glucose 99 (74-99) mg/dL POC Glucose (mg/dL) 99 (75-99) mg/dL POC Glu Distribution Superintendent ID Kari, Margie Calcium 9.4 (8.4-10.2) mg/dL Total Bilirubin 0.4 (0.2-1.3) mg/dL AST 29 (17-59) U/L ALT 40 (21-72) U/L Alkaline Phosphatase 91 (38-126) U/L Total Protein 6.9 (6.3-8.2) g/dL Albumin 4.3 (3.5-5.0) g/dL Urine Color Urine Appearance (Clear) Urine pH (5.0-8.0) Ur Specific Elysian (1.001-1.035) Urine Protein (Negative) Urine Glucose (UA) (Negative) Urine Ketones (Negative) Urine Blood (Negative) Urine Nitrite (Negative) Urine Bilirubin (Negative) Urine Urobilinogen (<2.0) mg/dL Ur Leukocyte Esterase (Negative) Urine RBC (0-5) /hpf Urine WBC (0-5) /hpf Urine Mucus (None) /hpf Urine Opiates Screen (NotDetected) Ur Oxycodone Screen (NotDetected) Urine Methadone Screen (NotDetected) Ur Propoxyphene Screen (NotDetected) Ur Barbiturates Screen (NotDetected) Phenytoin <3.0 ug/mL U Tricyclic Antidepress (NotDetected) Ur Phencyclidine Scrn (NotDetected) Ur Amphetamines Screen (NotDetected) U Methamphetamines Scrn (NotDetected) U Benzodiazepines Scrn (NotDetected) Urine Cocaine Screen (NotDetected) U Marijuana (THC) Screen (NotDetected) Serum Alcohol <10 mg/dL 04/22/17 Range/Units 21:13 WBC (3.8-10.6) k/uL RBC (4.30-5.90) m/uL Hgb (13.0-17.5) gm/dL Hct (39.0-53.0) % MCV (80.0-100.0) fL MCH (25.0-35.0) pg MCHC (31.0-37.0) g/dL RDW (11.5-15.5) % Plt Count (150-450) k/uL Neutrophils % % Lymphocytes % % Monocytes % % Eosinophils % % Basophils % % Neutrophils # (1.3-7.7) k/uL Lymphocytes # (1.0-4.8) k/uL Monocytes # (0-1.0) k/uL Eosinophils # (0-0.7) k/uL Basophils # (0-0.2) k/uL Sodium (137-145) mmol/L Potassium (3.5-5.1) mmol/L Chloride (98-107) mmol/L Carbon Dioxide (22-30) mmol/L Anion Gap mmol/L BUN (9-20) mg/dL Creatinine (0.66-1.25) mg/dL Est GFR (MDRD) Af Amer (>60 ml/min/1.73 sqM) Est GFR (MDRD) Non-Af (>60 ml/min/1.73 sqM) Glucose (74-99) mg/dL POC Glucose (mg/dL) (75-99) mg/dL POC Glu Distribution Superintendent ID Calcium (8.4-10.2) mg/dL Total Bilirubin (0.2-1.3) mg/dL AST (17-59) U/L ALT (21-72) U/L Alkaline Phosphatase (38-126) U/L Total Protein (6.3-8.2) g/dL Albumin (3.5-5.0) g/dL Urine Color Yellow Urine Appearance Clear (Clear) Urine pH 6.5 (5.0-8.0) Ur Specific Elysian 1.013 (1.001-1.035) Urine Protein Negative (Negative) Urine Glucose (UA) Negative (Negative) Urine Ketones Negative (Negative) Urine Blood Trace H (Negative) Urine Nitrite Negative (Negative) Urine Bilirubin Negative (Negative) Urine Urobilinogen <2.0 (<2.0) mg/dL Ur Leukocyte Esterase Negative (Negative) Urine RBC 2 (0-5) /hpf Urine WBC 1 (0-5) /hpf Urine Mucus Rare H (None) /hpf Urine Opiates Screen Not Detected (NotDetected) Ur Oxycodone Screen Not Detected (NotDetected) Urine Methadone Screen Not Detected (NotDetected) Ur Propoxyphene Screen Not Detected (NotDetected) Ur Barbiturates Screen Detected H (NotDetected) Phenytoin ug/mL U Tricyclic Antidepress Detected H (NotDetected) Ur Phencyclidine Scrn Not Detected (NotDetected) Ur Amphetamines Screen Not Detected (NotDetected) U Methamphetamines Scrn Not Detected (NotDetected) U Benzodiazepines Scrn Not Detected (NotDetected) Urine Cocaine Screen Not Detected (NotDetected) U Marijuana (THC) Screen Not Detected (NotDetected) Serum Alcohol mg/dL Disposition Clinical Impression: Seizure disorder Disposition: ADMITTED IP TO THIS [facility] Condition: Good Referrals: Srikanth Ervin MD [Primary Care Provider] - 1-2 days
[2017-04-22] MEDS ORDERED: ONDANSETRON 4 MG/2 ML VIAL IVP PRN (22:46)
[2017-04-22] MEDS ORDERED: NALOXONE 0.4 MG/ML 1 ML VIAL IV PRN (22:46)
[2017-04-22] MEDS ORDERED: LORazepam 2 MG/ML INJ IV PRN (22:46)
[2017-04-22] MEDS ORDERED: PHENYTOIN SODIUM INJ 1,000 MG in SODIUM CHLORIDE 0.9% 100 ML IVPB STA (22:53)
[2017-04-22] MEDS ORDERED: ACETAMINOPHEN TAB 325 MG TAB PO STA (23:15)
[2017-04-23 00:09] VITALS: BMI 28.6
[2017-04-23] MEDS: BUPRENORPHINE HCL SL SCH (07:44)
[2017-04-23] MEDS: NON-FORMULARY DRUG (Buprenorphine Hcl/Naloxone Hcl [Suboxone 8 Mg-2 Mg Sl Film] 1 FILM) SL SCH (07:44)
[2017-04-23] MEDS: NALOXONE HCL SL SCH (07:44)
[2017-04-23] MEDS: CARVEDILOL 12.5 MG TAB PO SCH ×2 (07:45→17:19)
[2017-04-23] MEDS: VALSARTAN 160 MG TAB PO SCH (07:45)
[2017-04-23] MEDS: ASPIRIN 325 MG TAB PO SCH (07:45)
[2017-04-23] MEDS: PHENYTOIN SODIUM EXTENDED 100 MG CAP PO SCH ×3 (07:46→21:16)
[2017-04-23] MEDS: ESCITALOPRAM 20 MG TAB PO SCH (07:47)
[2017-04-23] MEDS: HYDROCHLOROTHIAZIDE 25 MG TAB PO SCH (07:47)
[2017-04-23] MEDS ORDERED: PHENYTOIN SODIUM EXTENDED 100 MG CAP PO STA ×2 (09:47→11:18)
[2017-04-23] MEDS: ACETAMINOPHEN TAB 325 MG TAB PO PRN ×2 (10:32→19:42)
[2017-04-23] MEDS ORDERED: PNEUMOCOCCAL VACC-PNEUMOVAX 23 25 MCG/0.5 ML VIAL IM ONE (10:55)
[2017-04-23] MEDS ORDERED: INFLUENZA VACCINE (6 MOS+) 60 MCG/0.5 ML SYRINGE IM ONE (10:55)
--- NOTE | 2017-04-23 14:40 | P.HPIM ---
History of Present Illness H&P Date: 04/23/17 Chief Complaint: Seizure 51-year-old male who presented to the emergency room on 04/22/2017 after having a seizure at home. The patient states he had just made chili and was O2 sat down towards the [employer] when he began to experience his right arm and leg begin to shake and he knew a seizure was coming on. He called a friend to tell them to call EMS. The next thing he remembers is waking up with EMS in his house. His Dilantin level was found to be less than 3. The patient originally stated that he takes his seizure medications and never misses a dose. Upon further discussion with the patient, he states he may have missed a dose or 2. The patient does have right-sided weakness from a previous CVA. He is complaining of increased weakness and stiffness of his right arm and leg which he states occurs after he experiences a seizure. The patient has a history of CVA with residual right-sided weakness, gastro- section reflux disease, hypertension, seizure disorder. He also has a history of anxiety, bipolar disorder, panic disorder, and depression. He is a current everyday cigarette smoker. The patient has a history of alcohol abuse but states he has been sober for a few years. The patient also has a history of polysubstance drug abuse. CT of the brain was completed revealing old left parietal cortical infarct. No acute intracranial and released. EKG: Sinus mechanism with first-degree AV block. Rate 77 Laboratory data: WBC 6.7. Hemoglobin 15. Platelet count 237. Sodium 139. Potassium 3.6. BUN 19. Creatinine 1.2. GFR greater than 60. Glucose 99. LFTs and pancreatic enzymes within normal limits Urinalysis reveals: Trace blood and rare mucus. Serum alcohol less than 10. Urine drug screen positive for tricyclic antidepressants and barbiturates. Patient is prescribed antidepressants per primary care physician. However he does not have a prescription for any barbiturates. The patient was admitted to the hospital under the care of Dr. Fisher. Consultations were placed to neurology. Review of Systems GENERAL: Patient denies fever. Denies chills. EYES: Denies blurred vision. Denies vision changes. Denies eye pain. EARS, NOSE, MOUTH, & THROAT: Positive for headache. Denies sore throat. Denies ear pain. RESPIRATORY: Denies cough. Denies shortness of breath. Denies sputum production. Denies hemoptysis. CARDIOVASCULAR: Denies chest pain or pressure. Denies palpitations. Denies arrhythmias. GASTROINTESTINAL: Denies abdominal pain. Denies diarrhea. Denies constipation. Denies nausea. Denies vomiting. Denies heartburn. Denies blood in the stool. GENITOURINARY: Denies urinary frequency. Denies burning. Denies dysuria. Denies cloudy urine. Denies blood in the urine. MUSCULOSKELETAL: Positive for right-sided weakness from CVA. Positive for increased weakness and stiffness of right arm and leg. INTEGUMENTARY: Denies pruitis. Denies rash. PSYCHIATRIC: Positive for history of anxiety, depression, and bipolar disorder. Denies suicidal or homicial ideations. ENDOCRINE: Denies weight change. Denies polydipsia. Denies polyuria. HEMATOLOGIC: Denies bleeding disorders. Past Medical History Past Medical History: CVA/TIA, GERD/Reflux, Hypertension, Memory Impairment, Seizure Disorder Additional Past Medical History / Comment(s): He was tx for L intraparenchymal hemorrhage with R sided weakness of arm and leg and aphasia/dysphagia. He was discharged from there to rehab and had improvement in his R sided weakness, now has minimal slurring of words and pt states dysphagia. Other HX L lung pneumothorax d/t trauma yrs ago, , History of Any Multi-Drug Resistant Organisms: None Reported Past Surgical History: No Surgical Hx Reported Additional Past Surgical History / Comment(s): COLONOSCOPY POLYPS REMOVED-NEG, bilateral cataract removal, R testicular surgery as a little boy. Past Anesthesia/Blood Transfusion Reactions: No Reported Reaction Additional Past Anesthesia/Blood Transfusion Reaction / Comment(s): Pt has never recieved blood. 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 PT resides with a friend. He is independent with his ADLs. He uses a walker some of the time. He is suppose to be starting home PT soon-he was recently discharged from rehab. Pt has hx of ETOH abuse-he quit drinking 3 yrs ago with one slip last 2013. He has hx of polysubstance abuse per old record but pt states he has not used meds not prescribed to him. He smoked marijuana he states as a young person. He has had suicidal idealations in the past- but not recently. Smoking Status: Current every day smoker Past Alcohol Use History: None Reported Additional Past Alcohol Use History / Comment(s): pt states he has been smoking for 20 years. patient states he smokes one pack per day. Past Drug Use History: Prescription Drug Abuse Additional Drug Use History / Comment(s): Pt has hx of polysubstance abuse per PMR-Adderall/xanax/flexeril, however pt currently denies this. - Past Family History Father Family Medical History: Cancer, Hyperlipidemia, Hypertension, Prostate Disorder Additional Family Medical History / Comment(s): PROSTATE CA Mother Family Medical History: Osteoarthritis (OA) Additional Family Medical History / Comment(s): MOM IS 71 Medications and Allergies Home Medications Medication Instructions Recorded Confirmed Type Escitalopram [Lexapro] 20 mg PO DAILY #30 tab 01/28/16 04/22/17 Rx Atorvastatin [Lipitor] 80 mg PO HS #30 tab 07/18/16 04/22/17 Rx levETIRAcetam [Keppra] 750 mg PO BID #60 tab 07/19/16 04/22/17 Rx Aspirin EC [Ecotrin] 325 mg PO DAILY 04/22/17 04/22/17 History Buprenorphine HCl/Naloxone HCl 1 film SL DAILY 04/22/17 04/22/17 History [Suboxone 4 mg-1 mg Sl Film] Buprenorphine HCl/Naloxone HCl 1 film SL DAILY 04/22/17 04/22/17 History [Suboxone 8 mg-2 mg Sl Film] Carvedilol [Coreg] 25 mg PO BID 04/22/17 04/22/17 History Phenytoin Sodium Extended 100 mg PO TID 04/22/17 04/22/17 History [Dilantin] QUEtiapine FUMARATE [SEROquel] 200 mg PO HS 04/22/17 04/22/17 History Valsartan/Hydrochlorothiazide 1 tab PO DAILY 04/22/17 04/22/17 History [Valsartan-Hctz 160-25 mg Tab] Allergies Allergy/AdvReac Type Severity Reaction Status Date / Time No Known Allergies Allergy Verified 04/22/17 19:00 Physical Exam Vitals: Vital Signs Temp Pulse Pulse Resp BP BP Pulse Ox 04/23/17 08:00 59 L 16 04/23/17 07:00 98.3 F 59 L 16 103/58 95 04/22/17 23:53 98.2 F 68 18 106/64 95 04/22/17 23:20 98 F 77 18 122/64 98 04/22/17 22:00 66 20 119/69 97 04/22/17 21:20 66 18 99/60 97 04/22/17 19:01 77 20 112/64 99 04/22/17 18:53 98.1 F 74 16 131/68 100 Intake and Output 04/22/17 04/23/17 04/23/17 22:59 06:59 14:59 Intake Total 900 Output Total 600 Balance 900 -600 Intake: Intake, IV Titration 900 Amount Phenytoin Sodium Inj 1, 100 000 mg In Sodium Chloride 0.9% 100 ml @ 200 mls/hr IVPB ONCE STA Rx#: [id number] Sodium Chloride 0.9% 1, 800 000 ml @ 100 mls/hr IV . Q10H STA Rx#:[id number] Output: Urine 600 Other: Voiding Method Toilet Toilet Urinal Urinal # Voids 2 3 Weight 85.411 kg 85.411 kg GENERAL: This is a 51-year-old male in no apparent distress at the time of examination. Pleasant and cooperative. HEENT: Head is atraumatic, normocephalic. Pupils are equal, round, and reactive to light. Sclerae anicteric. Conjunctivae are clear. Mucus membranes of the mouth are moist. Neck is supple. RESPIRATORY: Clear to ausculation. No wheezes, rales, or rhonchi. No use of accessory muscles. Patient maintaining oxygen saturation greater than 92%. No chest wall tenderness is noted on palpation or with deep breathing. CARDIOVASCULAR: Regular rate and rhythm. S1 and S2 noted. No systolic or diastolic murmur auscultated. No JVD noted. No S3 or S4 noted. GASTROINTESTINAL: No distention noted. Abdomen soft and round. Normal active bowel sounds auscultated x 4 quadrants. No pain or tenderness noted upon palpation. INTEGUMENTARY: No cyanosis. No jaundice. No rashes noted. No cellulitis noted. EXTREMITIES: Weakness noted to right arm and leg. 2+ peripheral pulses. No evidence of peripheral edema. No calf tenderness noted. NEUROLOGIC: Cranial nerves II-XII intact. PSYCHIATRIC: Awake, alert, and oriented X 3. Results CBC & Chem 7: 04/22/17 18:56 04/22/17 18:56 Labs: Abnormal Lab Results - Last 24 Hours (Table) 04/22/17 04/22/17 Range/Units 18:56 21:13 Carbon Dioxide 21 L (22-30) mmol/L Urine Blood Trace H (Negative) Urine Mucus Rare H (None) /hpf Ur Barbiturates Screen Detected H (NotDetected) U Tricyclic Antidepress Detected H (NotDetected) Thrombosis Risk Factor Assmnt - Choose All That Apply Any of the Below Risk Factors Present?: Yes Each Factor Represents 1 point: Age 41-60 years, Obesity (BMI >25) Other Risk Factors: No Thrombosis Risk Factor Assessment Total Risk Factor Score: 2 Thrombosis Risk Factor Assessment Level: Low Risk Assessment and Plan Plan: ASSESSMENT: Seizure with subtherapeutic Dilantin levels, likely secondary to medication noncompliance History of CVA with residual right-sided weakness Seizure disorder Essential hypertension Anxiety, unspecified Depression, unspecified Bipolar disorder Nicotine dependence, patient is a current every day cigarette smoker History of polysubstance drug abuse PLAN: Neurology on consult. Appreciate recommendations and input EEG ordered. Await results Psychiatrist on consult. Await further recommendations and input Seizure precautions Repeat Dilantin level at 1700 Tylenol PRN for headaches Consult PT and OT for increased weakness and stiffness of right arm and leg Home meds as appropriate Monitor labs GI prophylaxis: Protonix 40 mg PO Daily DVT prophylaxis: Venodyne's to bilateral lower extremities Monitor vital signs and address as appropriate Discharge planning: Patient to return home when stable Further recommendations pending patient's course Nurse practitioner note has been reviewed by physician. Signing provider agrees with the documented findings, assessment, and plan of care.
--- NOTE | 2017-04-23 14:48 | P.CN ---
Psychiatric Consult - . Consult date: 04/23/17 Consult:: 04/23/17 14:15 Identification: Patient is a 51-year-old male who was admitted via EMS due to having a seizure. Reason for Consult: Consultation was requested for a mental health evaluation History of Present Illness: Patient states that since he had a CVA on the left side about 2 years ago he has had seizures since that time. He states he has had 7 seizures since he had the stroke and states that he has had one a month for the last 2 months. Patient states he does not recall much other than that he felt a seizure coming on notified a friend who contacted EMS to bring the patient to the hospital. Patient states that he has been compliant with his medications. Patient states that he is upset due to having continued seizures states that he lives alone and needs to be able to take care of himself. He reported to me that today he feels that he can't walk and states that his right leg feels the same as it did when he had his stroke about 2 years ago. He states that he has not followed up with [facility] since his discharge from the psychiatric unit here in January 2016 but his psychiatric medications have been prescribed by his primary care physician. Patient has been continued on Seroquel 200 mg at bedtime and Lexapro 20 mg a day. Patient had been changed to Lexapro and Abilify during his last psychiatric hospitalization. Patient states he returned to Seroquel because the Abilify did not work. Patient states that he has been treated for symptoms of depression and states that he was diagnosed as bipolar in the past. Patient is unable to endorse any symptoms of hypomanic or manic behavior currently or in the past. He does endorse symptoms of depression with decreased energy, lack of motivation, difficulty sleeping, feeling tired and states that he has made multiple suicide attempts in the past. Patient declined to discuss these further. Patient was not able to endorse currently or in the past any psychotic symptoms or anxiety symptoms. Patient states that he thinks his medications are working to treat his depression but states that ever since he has had the seizures he has felt increasingly depressed and was unclear at this time if he was feeling depressed or not. Patient stated he felt tired and was unable to be more specific about his symptoms at this time. Patient did deny any current suicidal ideation. Patient was concerned that his Seroquel may be discontinued due to it interacting with his antiseizure medication. Patient states that he has not been in treatment at [facility] per the patient because they would not see him however the patient was given a mental health referral for outpatient follow up after his discharge in January 2016. Patient at this time reported his only concern is whether he will be able to walk and return home living on his own. He states that a friend does assist him with his medications, he does use a pillbox and the friend assist him in getting refills. He also reports that he has not been eating well for the last several days but could not tell me why. Past Psychiatric History: Patient has multiple prior psychiatric admissions, being admitted here in 2013 and twice in 2016. Patient states that he has attempted suicide on multiple occasions in the past but would not further elaborate with me. Patient states that he has also been in rehabilitation for his alcohol use and states he has not used alcohol since 1998. Patient states that he has been on Lexapro, Abilify, trazodone, Seroquel, Neurontin, Effexor, Prozac, Zoloft, Cymbalta, lithium and Celexa and most recently was on Seroquel and Lexapro. Patient was also on Klonopin in the past and has a childhood history of ADD. Past Medical/Surgical History: Patient has hypertension, GERD, status post CVA of the left parietal lobe, seizure disorder, status post pneumothorax, status post cataract surgery. Family History: Patient states his mother is being treated for depression and alcohol and substance abuse occurring his family, specifically father, mother and siblings. Social History: Patient states that his father is , mother is living in senior housing and he has 2 older brothers were both , from a motor vehicle accident and leukemia. He denied any service and states that he completed a GED. 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 Patient has not worked since he had his CVA over 2 years ago and is currently on Social Security disability. He states that he lives alone. Patient has no children and has never been . He denied any sexual or physical abuse in the past. Substance Use History: Patient states that he abused alcohol in the past, was in rehabilitation and has not used since 1998. Patient states that he was misusing Vicodin in the past and has been on Suboxone for the last year with good results. Patient denied any other drug abuse. Patient uses tobacco. Legal History: Patient states that 19 years ago he had many DUIs and has been in long term does not have a farm truck driver's license. Mental status: Appearance/Attitude: Patient was lying in a hospital bed, was cooperative during the interview but stated he was tired and would frequently closes his eyes. Behavior: Patient did not exhibit any psychomotor agitation or retardation. Speech/Language: Patient's speech was spontaneous and of normal volume and rhythm and he was coherent. Thought Process: Patient was goal-directed, there is no evidence of loose associations or flight of ideas and he was not circumstantial or tangential. Thought Content: Patient denied any auditory or visual hallucinations and no paranoid ideation was elicited. Patient stated that he has not been eating well for the last several days and reports that without the Seroquel he does not sleep well. Suicidal/Homicidal Ideation: Patient denied any current suicidal or homicidal ideation. Sensorium/Cognition: Patient was alert and oriented to person, place, and time and his recent and remote memory were grossly intact. Mood/Affect: Patient reports that he is depressed due to his having seizures since he had a stroke about 2 years ago, his affect was slightly blunted. Insight/Judgment: Patient's insight and judgment are intact. Assessment: Patient is currently admitted to the hospital due to having a seizure and a mental health evaluation was requested. Patient has been taking Seroquel and Lexapro prescribed by his primary care physician for depressive symptoms although the patient does state he has been diagnosed with bipolar disorder in the past but he is unable to endorse any manic or hypomanic symptoms. Patient is currently depressed as he states he is unable to walk because his right leg is currently feeling the way that it did after his stroke several years ago, he is concerned that he continues to have seizures, 7 since the stroke was diagnosed 2 years ago and is concerned as he lives alone. Currently the patient is being continued on his psychotropic medication. Patient is not currently having any psychotic symptoms, he denies any current suicidal ideation and there is no evidence of any manic or hypomanic symptoms. Patient does express symptoms of depression secondary to his continuing to have seizures. Diagnosis: Major depressive disorder, recurrent rule out bipolar type II disorder; opioid use disorder on maintenance therapy Plan: Would recommend continuing the patient on Seroquel 200 mg daily at bedtime and Lexapro 20 mg daily, as patient did feel that these were beneficial but is concerned that his seizure disorder is not well controlled and states that he is depressed due to this as well as with his recent concerns regarding his inability to walk. Patient is also being maintained on Suboxone as an outpatient. Patient and I discussed that I will return to reevaluate how he is doing once his seizure medications have been stabilized to see if there needs to be any adjustments to his psychotropic medication. At that time I will discuss with patient whether he would like a referral for outpatient psychiatric care as he has been receiving his psychotropic medication from his primary care physician. 04/23/17 14:36 04/23/17 14:41
--- NOTE | 2017-04-23 16:27 | P.CNNES ---
History of Present Illness Consult date: 04/23/17 History of Present Illness: The patient is a 51-year-old right-handed white male with history of stroke and seizure disorder. Resent to the hospital with breakthrough seizure. His seizure consists of jerking movements of his right face arm and leg. He had a CAT scan of the brain which showed an old left parietal cortical infarct. He has been taking Keppra and Dilantin. He states he was alone yesterday evening around 6 PM and he knew a seizure was coming so he called his friend. EMS came and brought him to the hospital. His Dilantin level was subtherapeutic on admission and he states that he may have missed some pills. He complains of increased right leg weakness. He has a history of right hemiparesis from his previous stroke but he reports that after seizures his right side will become weaker. He is unaware of the names of his medications. And asked to name his medicines he states it's whatever is in the chart. He is unaware of any medication changes in the past 6 months or year. Review of Systems Constitutional: Reports as per HPI Eyes: denies blurred vision, denies pain Respiratory: Denies cough Gastrointestinal: Denies abdominal pain, Denies diarrhea, Denies nausea, Denies vomiting Musculoskeletal: Denies myalgias Neurological: Reports as per HPI Psychiatric: Denies anxiety, Denies depression Past Medical History Past Medical History: CVA/TIA, GERD/Reflux, Hypertension, Memory Impairment, Seizure Disorder Additional Past Medical History / Comment(s): He was tx for L intraparenchymal hemorrhage with R sided weakness of arm and leg and aphasia/dysphagia. He was discharged from there to rehab and had improvement in his R sided weakness, now has minimal slurring of words and pt states dysphagia. Other HX L lung pneumothorax d/t trauma yrs ago, , History of Any Multi-Drug Resistant Organisms: None Reported Past Surgical History: No Surgical Hx Reported Additional Past Surgical History / Comment(s): COLONOSCOPY POLYPS REMOVED-NEG, bilateral cataract removal, R testicular surgery as a little boy. Past Anesthesia/Blood Transfusion Reactions: No Reported Reaction Additional Past Anesthesia/Blood Transfusion Reaction / Comment(s): Pt has never recieved blood. 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 PT resides with a friend. He is independent with his ADLs. He uses a walker some of the time. He is suppose to be starting home PT soon-he was recently discharged from rehab. Pt has hx of ETOH abuse-he quit drinking 3 yrs ago with one slip last 2013. He has hx of polysubstance abuse per old record but pt states he has not used meds not prescribed to him. He smoked marijuana he states as a young person. He has had suicidal idealations in the past- but not recently. Smoking Status: Current every day smoker Past Alcohol Use History: None Reported Additional Past Alcohol Use History / Comment(s): pt states he has been smoking for 20 years. patient states he smokes one pack per day. Past Drug Use History: Prescription Drug Abuse Additional Drug Use History / Comment(s): Pt has hx of polysubstance abuse per PMR-Adderall/xanax/flexeril, however pt currently denies this. - Past Family History Father Family Medical History: Cancer, Hyperlipidemia, Hypertension, Prostate Disorder Additional Family Medical History / Comment(s): PROSTATE CA Mother Family Medical History: Osteoarthritis (OA) Additional Family Medical History / Comment(s): MOM IS 71 Medications and Allergies Home Medications Medication Instructions Recorded Confirmed Type Escitalopram [Lexapro] 20 mg PO DAILY #30 tab 01/28/16 04/22/17 Rx Atorvastatin [Lipitor] 80 mg PO HS #30 tab 07/18/16 04/22/17 Rx levETIRAcetam [Keppra] 750 mg PO BID #60 tab 07/19/16 04/22/17 Rx Aspirin EC [Ecotrin] 325 mg PO DAILY 04/22/17 04/22/17 History Buprenorphine HCl/Naloxone HCl 1 film SL DAILY 04/22/17 04/22/17 History [Suboxone 4 mg-1 mg Sl Film] Buprenorphine HCl/Naloxone HCl 1 film SL DAILY 04/22/17 04/22/17 History [Suboxone 8 mg-2 mg Sl Film] Carvedilol [Coreg] 25 mg PO BID 04/22/17 04/22/17 History Phenytoin Sodium Extended 100 mg PO TID 04/22/17 04/22/17 History [Dilantin] QUEtiapine FUMARATE [SEROquel] 200 mg PO HS 04/22/17 04/22/17 History Valsartan/Hydrochlorothiazide 1 tab PO DAILY 04/22/17 04/22/17 History [Valsartan-Hctz 160-25 mg Tab] Allergies Allergy/AdvReac Type Severity Reaction Status Date / Time No Known Allergies Allergy Verified 04/22/17 19:00 Physical Examination - Vital Signs Vital Signs: Vital Signs Temp Pulse Pulse Resp BP BP Pulse Ox 04/23/17 15:31 59 L 16 04/23/17 15:00 97.6 F 58 L 18 114/57 95 04/23/17 08:00 59 L 16 04/23/17 07:00 98.3 F 59 L 16 103/58 95 04/22/17 23:53 98.2 F 68 18 106/64 95 04/22/17 23:20 98 F 77 18 122/64 98 04/22/17 22:00 66 20 119/69 97 04/22/17 21:20 66 18 99/60 97 04/22/17 19:01 77 20 112/64 99 04/22/17 18:53 98.1 F 74 16 131/68 100 Intake and Output 04/23/17 04/23/17 04/23/17 06:59 14:59 22:59 Intake Total 900 Output Total 600 Balance 900 -600 Intake: Intake, IV Titration 900 Amount Phenytoin Sodium Inj 1, 100 000 mg In Sodium Chloride 0.9% 100 ml @ 200 mls/hr IVPB ONCE STA Rx#: [id number] Sodium Chloride 0.9% 1, 800 000 ml @ 100 mls/hr IV . Q10H STA Rx#:[id number] Output: Urine 600 Other: Voiding Method Toilet Toilet Toilet Urinal Urinal Urinal # Voids 2 3 Weight 85.411 kg 85.411 kg Patient Weight 04/24/17 06:59 Weight 85.411 kg - Constitutional General appearance: average body habitus - EENT EENT: PERRL, hearing intact, vision intact - Cardiovascular Cardiovascular: regular rate, normal S1, normal S2 - Neurologic Cranial nerve examination: PERRL, EOMI, face symmetric, tongue midline, intact Speech examination: intact Detailed motor examination: other (Mild right hemiparesis) Detailed sensory examination: intact Reflexes: 3+: knee (Right side) - Psychiatric Psychiatric: agitated Results - Laboratory Findings CBC and BMP: 04/22/17 18:56 04/22/17 18:56 Abnormal Lab Findings: Abnormal Labs 04/22/17 04/22/17 18:56 21:13 Carbon Dioxide 21 L Urine Blood Trace H Urine Mucus Rare H Ur Barbiturates Screen Detected H U Tricyclic Antidepress Detected H Assessment and Plan (1) Seizure disorder Current Visit: Yes Status: Acute SNOMED Code(s): 765097730 (2) History of stroke Current Visit: Yes Status: Acute Code(s): Z86.73 - PRSNL HX OF TIA (TIA), AND CEREB INFRC W/O RESID DEFICITS SNOMED Code(s): 425421684 Plan: The patient has had a breakthrough seizure likely secondary a therapeutic Dilantin level. He reports that he may have missed some doses. His Keppra level will be drawn in a.m. As well as a repeat Dilantin level. Recommend further evaluation with EEG and MRI scan of the brain.
--- NOTE | 2017-04-23 19:38 | P.PN ---
Progress Note - Text Progress Note Date: 04/23/17 This is 51 years old male who was admitted to [facility] secondary to seizure activity, on admission patient was complaining ,of severe headache, patient was started on Tylenol 650 mg by mouth every 6 hours ,when necessary, patient reports that the current medication helping him to control his headache, and his headache completely controlled , for this reason that is no need to adjust his management, please don't hesitate, to contact pain management services for, any pain related issues.
[2017-04-23] MEDS ORDERED: QUEtiapine 200 MG TAB PO SCH ×2 (21:00)
[2017-04-23] MEDS ORDERED: ATORVASTATIN 80 MG TAB PO SCH (21:00)
[2017-04-24] MEDS ORDERED: PANTOPRAZOLE 40 MG TABLET PO SCH (07:30)
[2017-04-24 08:35] VITALS: BP 108/55; PULSE 61; RESP 18; TEMP 97.8
[2017-04-24] MEDS: ASPIRIN 325 MG TAB PO SCH (09:07)
[2017-04-24] MEDS: CARVEDILOL 12.5 MG TAB PO SCH ×2 (09:07→17:37)
[2017-04-24] MEDS: NALOXONE HCL SL SCH (09:08)
[2017-04-24] MEDS: ESCITALOPRAM 20 MG TAB PO SCH (09:08)
[2017-04-24] MEDS: BUPRENORPHINE HCL SL SCH (09:08)
[2017-04-24] MEDS: NON-FORMULARY DRUG (Buprenorphine Hcl/Naloxone Hcl [Suboxone 8 Mg-2 Mg Sl Film] 1 FILM) SL SCH (09:08)
[2017-04-24] MEDS: HYDROCHLOROTHIAZIDE 25 MG TAB PO SCH (09:08)
[2017-04-24] MEDS: VALSARTAN 160 MG TAB PO SCH (09:09)
[2017-04-24] MEDS: PHENYTOIN SODIUM EXTENDED 100 MG CAP PO SCH ×2 (09:09→16:08)
--- NOTE | 2017-04-24 10:57 | P.DS ---
Providers Date of admission: 04/22/17 22:46 Expected date of discharge: 04/24/17 Attending physician: Srikanth Ervin Consults: 04/23/17 06:19 Consult Physician Urgent Consulting Provider: Claudia Marina Consult Reason/Comments: pain management Do you want consulting provider notified?: Yes 04/23/17 06:25 Consult Physician Urgent Consulting Provider: Lashell Nichole Consult Reason/Comments: mental health eval Do you want consulting provider notified?: Yes, Notify in am 04/23/17 07:00 Consult Physician Stat Consulting Provider: Merissa Lai Consult Reason/Comments: Seizure disorder Do you want consulting provider notified?: Yes Primary care physician: Srikanth [facility] Course: 51-year-old male who presented to the emergency room on 04/22/2017 after having a seizure at home. The patient states he had just made chili and was O2 sat down towards the [employer] when he began to experience his right arm and leg begin to shake and he knew a seizure was coming on. He called a friend to tell them to call EMS. The next thing he remembers is waking up with EMS in his house. His Dilantin level was found to be less than 3. The patient originally stated that he takes his seizure medications and never misses a dose. Upon further discussion with the patient, he states he may have missed a dose or 2. The patient does have right-sided weakness from a previous CVA. He is complaining of increased weakness and stiffness of his right arm and leg which he states occurs after he experiences a seizure. The patient has a history of CVA with residual right-sided weakness, gastro- section reflux disease, hypertension, seizure disorder. He also has a history of anxiety, bipolar disorder, panic disorder, and depression. He is a current everyday cigarette smoker. The patient has a history of alcohol abuse but states he has been sober for a few years. The patient also has a history of polysubstance drug abuse. CT of the brain was completed revealing old left parietal cortical infarct. No acute intracranial and released. EKG: Sinus mechanism with first-degree AV block. Rate 77 Laboratory data: WBC 6.7. Hemoglobin 15. Platelet count 237. Sodium 139. Potassium 3.6. BUN 19. Creatinine 1.2. GFR greater than 60. Glucose 99. LFTs and pancreatic enzymes within normal limits Urinalysis reveals: Trace blood and rare mucus. Serum alcohol less than 10. Urine drug screen positive for tricyclic antidepressants and barbiturates. Patient is prescribed antidepressants per primary care physician. However he does not have a prescription for any barbiturates. The patient was admitted to the hospital under the care of Dr. Fisher. Consultations were placed to neurology. The patient was evaluated by neurology. EEG and MRI of the brain were ordered. Patient is refusing to have both of these tests completed. He received an extra dose of Dilantin during hospitalization and his Dilantin level is currently 12.4. Patient was seen by psychiatry during hospitalization. Psychiatry recommends continuing patient on Seroquel 200 mg daily at bedtime and Lexapro 20 mg daily. Physical therapy and occupational therapy were consulted during hospitalization secondary to patient's right-sided weakness secondary to CVA. The patient has not had further episodes of seizure activity during hospitalization. Seizure at home was likely due to patient's noncompliance with seizure medication. Patient was deemed stable for discharge per Dr. Fisher. He is to follow up on an outpatient basis. DISCHARGE DIAGNOSIS: Seizure with subtherapeutic Dilantin levels, likely secondary to medication noncompliance History of CVA with residual right-sided weakness Seizure disorder Essential hypertension Anxiety, unspecified Depression, unspecified Bipolar disorder Nicotine dependence, patient is a current every day cigarette smoker History of polysubstance drug abuse Nurse practitioner note has been reviewed by physician. Signing provider agrees with the documented findings, assessment, and plan of care. Patient Condition at Discharge: Good Plan - Discharge Summary New Discharge Prescriptions: Continue Escitalopram [Lexapro] 20 mg PO DAILY #30 tab Atorvastatin [Lipitor] 80 mg PO HS #30 tab levETIRAcetam [Keppra] 750 mg PO BID #60 tab Buprenorphine HCl/Naloxone HCl [Suboxone 4 mg-1 mg Sl Film] 1 film SL DAILY Buprenorphine HCl/Naloxone HCl [Suboxone 8 mg-2 mg Sl Film] 1 film SL DAILY Carvedilol [Coreg] 25 mg PO BID Phenytoin Sodium Extended [Dilantin] 100 mg PO TID Valsartan/Hydrochlorothiazide [Valsartan-Hctz 160-25 mg Tab] 1 tab PO DAILY Aspirin EC [Ecotrin] 325 mg PO DAILY QUEtiapine FUMARATE [SEROquel] 200 mg PO HS Discharge Medication List Escitalopram [Lexapro] 20 mg PO DAILY #30 tab 01/28/16 [Rx] Atorvastatin [Lipitor] 80 mg PO HS #30 tab 07/18/16 [Rx] levETIRAcetam [Keppra] 750 mg PO BID #60 tab 07/19/16 [Rx] Aspirin EC [Ecotrin] 325 mg PO DAILY 04/22/17 [History] Buprenorphine HCl/Naloxone HCl [Suboxone 4 mg-1 mg Sl Film] 1 film SL DAILY 07/04 [History] Buprenorphine HCl/Naloxone HCl [Suboxone 8 mg-2 mg Sl Film] 1 film SL DAILY 07/04 [History] Carvedilol [Coreg] 25 mg PO BID 04/22/17 [History] Phenytoin Sodium Extended [Dilantin] 100 mg PO TID 04/22/17 [History] QUEtiapine FUMARATE [SEROquel] 200 mg PO HS 04/22/17 [History] Valsartan/Hydrochlorothiazide [Valsartan-Hctz 160-25 mg Tab] 1 tab PO DAILY 07/04 [History] Follow up Appointment(s)/Referral(s): Derrick Fisher Jr, DO [Doctor of Osteopathic Medicine] - 05/01/17 3:00 pm Natalee Lai MD [STAFF PHYSICIAN] - 05/15/17 2:10 pm Patient Instructions/Handouts: Recurrent Seizures in Adults (DC) Discharge Disposition: HOME SELF-CARE
--- NOTE | 2017-04-24 16:40 | P.PN ---
Progress Note - Text Progress Note Date: 04/24/17 Interval History: Patient is a 51-year-old male who was seen yesterday in consultation after having had a seizure at home he was admitted to the medical floor. Patient was seen today and reported that he was frustrated and angry as physical therapy had yet to see him and they were discussing discharging him today. Patient also states that he refused an MRI as well as an EEG. Patient stated that he had also refused home health because he knew how to do exercises that were given to him the last time he was in rehab. Patient today stated that [facility]. Patient stated that he was not having any suicidal ideation today and did not want to continue our conversation because he was frustrated and angry about being told he was going to be discharged. Mental Status:Appearance/Attitude: Patient is lying in a hospital bed and in no acute distress, he reported feeling angry and frustrated and was superficially cooperative and asked not to continue the interview. Behavior: Patient did not exhibit any psychomotor retardation or agitation. Speech/Language: Speech was spontaneous, normal volume and rhythm he was coherent. Thought Process: Patient was goal-directed was no evidence of loose associations or flight of ideas. Thought Content: Patient denied any auditory or visual hallucinations and no delusions or paranoid ideation were elicited. Patient stated he was frustrated and angry to being told he was given to be discharged today. Suicidal/Homicidal Ideation: Patient denied any current suicidal or homicidal ideation. Sensorium/Cognition: Patient was alert and oriented to person, place, time and his memory was grossly intact. Mood/Affect: Patient's mood was angry and frustrated and his affect was appropriate to his mood. Insight/Judgment: His insight and judgment are fair. Assessment: Spoke to staff regarding the patient, patient had refused an MRI and EEG and so was told he would be discharged home. Patient also refused home health and was upset that physical therapy and yet to see him. Patient has yet to ambulate in the hospital and he stated to me that he would get up and show people that he couldn't walk. Patient stated to me that he was not feeling suicidal but was upset that he was being sent home. Patient has been continued on his Seroquel and Lexapro. Today he told me that [facility] and but had missed the intake appointment. Plan: Patient asked to have the interview cut short because he was upset about being told he would be discharged today. Patient has been continued on his Seroquel and Lexapro at his prior doses and I asked if he wanted a referral to social work to assist with arranging follow-up counseling. Patient declined stating he would contact [facility] himself to reschedule an intake appointment. Will return to see the patient tomorrow to see if he needs any assistance setting up outpatient counseling.
== END 2017-04-24 17:45 | disposition home or self-care (01) | DRG 101 ==
LOC: EC 18:47 → 5MS5E 22:46
PROVIDERS: ADMIT Family Medicine; ATTEND Family Medicine
DX: G40.909 Epilepsy, unspecified, not intractable, without status epilepticus (principal); I69.351 Hemiplegia and hemiparesis following cerebral infarction affecting right dominant side; F17.210 Nicotine dependence, cigarettes, uncomplicated; K21.9 Gastro-esophageal reflux disease without esophagitis; F31.9 Bipolar disorder, unspecified; I69.391 Dysphagia following cerebral infarction; I69.323 Fluency disorder following cerebral infarction; R13.10 Dysphagia, unspecified; F41.0 Panic disorder [episodic paroxysmal anxiety]; I10 Essential (primary) hypertension; I44.0 Atrioventricular block, first degree; Z79.82 Long term (current) use of aspirin; Z79.899 Other long term (current) drug therapy; Z80.42 Family history of malignant neoplasm of prostate; Z82.49 Family history of ischemic heart disease and other diseases of the circulatory system; Z91.14 Patient's other noncompliance with medication regimen
CPT/HCPCS: 36415; 70450; 80053; 80177; 80185; 80306; 80320; 81001; 85025; 90686; 90732; 93005; 96361; 96374; 96375; 99285

== ENCOUNTER → 2017-05-26 | Outpatient (CLI) | payer OTHER | END | disposition home or self-care (01) | LOC: LABWHC1 08:54 | PROVIDERS: ATTEND Psychiatry & Neurology Neurology | DX: I61.9 Nontraumatic intracerebral hemorrhage, unspecified (principal) | CPT/HCPCS: 36415; 80177; 80185 ==

== ENCOUNTER 2017-06-16 13:03 | Emergency (ER) | payer OTHER ==
[2017-06-16] MEDS ORDERED: MORPHINE SULFATE/PF 10MG/10ML VL IVP STA ×2 (13:20→15:21)
[2017-06-16] MEDS ORDERED: LORazepam 2 MG/ML INJ IV STA (13:20)
[2017-06-16] MEDS ORDERED: levETIRAcetam IV 1,000 MG in SALINE 1 100ML.BAG IVPB STA (13:21)
[2017-06-16 13:54] LABS: ALT 40 U/L (21-72); AST 27 U/L (17-59); Alkaline Phosphatase 103 U/L (38-126); Anion Gap 16 mmol/L; Blood Urea Nitrogen 19 mg/dL (9-20); Calcium 9.4 mg/dL (8.4-10.2); Carbon Dioxide 21 mmol/L (22-30); Chloride 105 mmol/L (98-107); Glucose 103 mg/dL (74-99); Phenytoin (Dilantin) <3.0 ug/mL; Potassium 4.6 mmol/L (3.5-5.1); Sodium 142 mmol/L (137-145); Total Bilirubin 0.3 mg/dL (0.2-1.3); Total Protein 6.7 g/dL (6.3-8.2)
[2017-06-16 13:55] LABS: Basophils # (A) 0.1 k/uL (0-0.2); Basophils % (A) 1 %; Eosinophils # (A) 0.2 k/uL (0-0.7); Eosinophils % (A) 3 %; HCT 40.9 % (39.0-53.0); HGB 14.5 gm/dL (13.0-17.5); Lymphocytes # (A) 1.8 k/uL (1.0-4.8); Lymphocytes % (A) 24 %; MCH 32.7 pg (25.0-35.0); MCHC 35.6 g/dL (31.0-37.0); MCV 91.9 fL (80.0-100.0); Mean Platelet Volume 7.7; Monocytes # (A) 0.5 k/uL (0-1.0); Monocytes % (A) 7 %; Neutrophils # (A) 4.9 k/uL (1.3-7.7); Neutrophils % (A) 64 %; Platelet Count 303 k/uL (150-450); RBC 4.45 m/uL (4.30-5.90); RDW 13.1 % (11.5-15.5); WBC 7.7 k/uL (3.8-10.6)
[2017-06-16] MEDS ORDERED: PHENYTOIN SODIUM EXTENDED 100 MG CAP PO STA (13:56)
--- NOTE | 2017-06-16 14:26 | ED ---
Seizure HPI - General Chief Complaint: Seizure Stated Complaint: SEIZURE Time Seen by Provider: 06/16/17 13:12 Source: patient, EMS Mode of arrival: EMS Limitations: no limitations - History of Present Illness Initial Comments: This is a 51-year-old male with a history of left parietal CVA with right-sided deficits and recent development of seizures who presents emergency department for seizure. The patient stated that it started this morning. It was typical for his seizures with right-sided shaking in the upper and lower extremity and also facial twitching. Patient states that he did forget to take one of his seizure medications however is unsure which one. He is on Keppra 750 mg twice a day and Dilantin 100 mg 3 times a day. The patient also was instructed by his neurologist to increase the dose of his Dilantin over the last 3 days which he has because of low levels. He denies any headaches. No falls. No new weakness. Patient is very frustrated with his seizures. - Related Data Home Medications Medication Instructions Recorded Confirmed Aspirin EC [Ecotrin] 325 mg PO DAILY 04/22/17 06/16/17 Buprenorphine HCl/Naloxone HCl 1 film SL DAILY 04/22/17 06/16/17 [Suboxone 4 mg-1 mg Sl Film] Buprenorphine HCl/Naloxone HCl 1 film SL DAILY 04/22/17 06/16/17 [Suboxone 8 mg-2 mg Sl Film] Carvedilol [Coreg] 25 mg PO BID 04/22/17 06/16/17 Phenytoin Sodium Extended 100 mg PO TID 04/22/17 06/16/17 [Dilantin] QUEtiapine FUMARATE [SEROquel] 200 mg PO HS 04/22/17 06/16/17 Valsartan/Hydrochlorothiazide 1 tab PO DAILY 04/22/17 06/16/17 [Valsartan-Hctz 160-25 mg Tab] Previous Rx's Medication Instructions Recorded Escitalopram [Lexapro] 20 mg PO DAILY #30 tab 01/28/16 Atorvastatin [Lipitor] 80 mg PO HS #30 tab 07/18/16 levETIRAcetam [Keppra] 750 mg PO BID #60 tab 07/19/16 LORazepam [Ativan] 1 mg PO TID PRN #6 tab 06/16/17 Allergies Allergy/AdvReac Type Severity Reaction Status Date / Time No Known Allergies Allergy Verified 06/16/17 13:38 Review of Systems ROS Statement: Those systems with pertinent positive or pertinent negative responses have been documented in the HPI. ROS Other: All systems not noted in ROS Statement are negative. Past Medical History Past Medical History: CVA/TIA, GERD/Reflux, Hypertension, Memory Impairment, Seizure Disorder Additional Past Medical History / Comment(s): He was tx for L intraparenchymal hemorrhage with R sided weakness of arm and leg and aphasia/dysphagia. He was discharged from there to rehab and had improvement in his R sided weakness, now has minimal slurring of words and pt states dysphagia. Other HX L lung pneumothorax d/t trauma yrs ago, , History of Any Multi-Drug Resistant Organisms: None Reported Past Surgical History: No Surgical Hx Reported Additional Past Surgical History / Comment(s): COLONOSCOPY POLYPS REMOVED-NEG, bilateral cataract removal, R testicular surgery as a little boy. Past Anesthesia/Blood Transfusion Reactions: No Reported Reaction Additional Past Anesthesia/Blood Transfusion Reaction / Comment(s): Pt has never recieved blood. Past Psychological History: Anxiety, Bipolar, Depression, Panic Disorder Smoking Status: Current every day smoker Past Alcohol Use History: None Reported Past Drug Use History: Prescription Drug Abuse - Past Family History Father Family Medical History: Cancer, Hyperlipidemia, Hypertension, Prostate Disorder Additional Family Medical History / Comment(s): PROSTATE CA Mother Family Medical History: Osteoarthritis (OA) Additional Family Medical History / Comment(s): MOM IS 71 General Exam - General Exam Comments Initial Comments: Constitutional: Awake alert Appears comfortable Head: Normocephalic atraumatic Eyes: no conjunctival injection No scleral icterus EOMI Neck: No JVD Supple Heart: Regular rate rhythm normal S1-S2 no murmurs Lungs: Clear to auscultation bilaterally No wheezing No rales Abdomen: Soft nondistended nontender Extremities: Non edematous DP pulses intact Radial pulses intact Neuro: A&Ox3 upon initial evaluation the patient had clonic motions of his upper and lower extremity on the right side. The patient was awake and alert at that time and able to answer questions. His neck appeared to be spasmed to the right. Psych: Appropriate mood and affect Limitations: no limitations Course Vital Signs 06/16/17 06/16/17 06/16/17 13:11 13:34 14:48 Temperature 98.2 F Pulse Rate 84 66 Respiratory 18 16 Rate Blood Pressure 171/76 129/64 O2 Sat by Pulse 98 97 Oximetry 06/16/17 16:21 Temperature 98.3 F Pulse Rate 67 Respiratory 18 Rate Blood Pressure 129/62 O2 Sat by Pulse 98 Oximetry Medical Decision Making - Medical Decision Making Is a 51-year-old who came in for recurrent seizures. The patient was given 2 of Ativan and loaded with Keppra on arrival. His seizure activity subsided. Dilantin level was noted to be very low. Question of compliance with the patient and the patient's . I spoke with Dr. Lai who recommended loading him with IV Dilantin. The patient will be discharged home. I did give him some oral Ativan for breakthrough seizures at home. Needs close follow-up with Dr. Lai next week. All questions answered. - Lab Data Result diagrams: 06/16/17 13:33 06/16/17 13:33 Lab Results 06/16/17 06/16/17 06/16/17 Range/Units 13:33 13:33 14:28 WBC 7.7 (3.8-10.6) k/uL RBC 4.45 (4.30-5.90) m/uL Hgb 14.5 (13.0-17.5) gm/dL Hct 40.9 (39.0-53.0) % MCV 91.9 (80.0-100.0) fL MCH 32.7 (25.0-35.0) pg MCHC 35.6 (31.0-37.0) g/dL RDW 13.1 (11.5-15.5) % Plt Count 303 (150-450) k/uL Neutrophils % 64 % Lymphocytes % 24 % Monocytes % 7 % Eosinophils % 3 % Basophils % 1 % Neutrophils # 4.9 (1.3-7.7) k/uL Lymphocytes # 1.8 (1.0-4.8) k/uL Monocytes # 0.5 (0-1.0) k/uL Eosinophils # 0.2 (0-0.7) k/uL Basophils # 0.1 (0-0.2) k/uL Sodium 142 (137-145) mmol/L Potassium 4.6 (3.5-5.1) mmol/L Chloride 105 (98-107) mmol/L Carbon Dioxide 21 L (22-30) mmol/L Anion Gap 16 mmol/L BUN 19 (9-20) mg/dL Creatinine 1.00 (0.66-1.25) mg/dL Est GFR (CKD-EPI)AfAm >90 (>60 ml/min/1.73 sqM) Est GFR (CKD-EPI)NonAf 86 (>60 ml/min/1.73 sqM) Glucose 103 H (74-99) mg/dL Calcium 9.4 (8.4-10.2) mg/dL Total Bilirubin 0.3 (0.2-1.3) mg/dL AST 27 (17-59) U/L ALT 40 (21-72) U/L Alkaline Phosphatase 103 (38-126) U/L Total Protein 6.7 (6.3-8.2) g/dL Albumin 4.0 (3.5-5.0) g/dL Urine Color Dark Brown Urine Appearance Cloudy (Clear) Urine pH 5.5 (5.0-8.0) Ur Specific [place] 1.031 (1.001-1.035) Urine Protein 1+ H (Negative) Urine Glucose (UA) Negative (Negative) Urine Ketones 1+ H (Negative) Urine Blood Negative (Negative) Urine Nitrite Negative (Negative) Urine Bilirubin 1+ H (Negative) Urine Urobilinogen 6.0 (<2.0) mg/dL Ur Leukocyte Esterase Negative (Negative) Urine WBC 2 (0-5) /hpf Hyaline Casts 11 H (0-2) /lpf Urine Mucus Many H (None) /hpf Phenytoin <3.0 ug/mL Disposition Clinical Impression: Breakthrough seizure Disposition: HOME SELF-CARE Condition: Stable Instructions: Recurrent Seizures in Adults (ED) Prescriptions: LORazepam [Ativan] 1 mg PO TID PRN #6 tab PRN Reason: Seizures Referrals: Srikanth Ervin MD [Primary Care Provider] - 1-2 days Natalee Lai MD [STAFF PHYSICIAN] - 1-2 days
[2017-06-16 14:52] LABS: Appearance,Urine Cloudy (Clear); Bilirubin,Urine 1+ (Negative); Blood,Urine Negative (Negative); Color,Urine Dark Brown; Glucose,Urine (UA) Negative (Negative); Hyaline Casts,Urine 11 /lpf (0-2); Ketones,Urine 1+ (Negative); Leukocyte Esterase,Urine Negative (Negative); Mucus,Urine Many /hpf; Nitrite,Urine Negative (Negative); PH, Urine 5.5 (5.0-8.0); Protein,Urine 1+ (Negative); Specific Gravity,Urine 1.031 (1.001-1.035); WBC,Urine 2 /hpf (0-5)
[2017-06-16] MEDS ORDERED: PHENYTOIN SODIUM INJ 1,000 MG in SODIUM CHLORIDE 0.9% 100 ML IVPB STA (15:10)
[2017-06-16 16:22] VITALS: BP 129/62; PULSE 67; RESP 18; TEMP 98.3
== END 2017-06-16 16:25 | disposition home or self-care (01) ==
LOC: EC 13:03
DX: R56.9 Unspecified convulsions (principal); I10 Essential (primary) hypertension; F17.200 Nicotine dependence, unspecified, uncomplicated; Z86.73 Personal history of transient ischemic attack (TIA), and cerebral infarction without residual deficits; Z79.82 Long term (current) use of aspirin; Z79.891 Long term (current) use of opiate analgesic; Z79.02 Long term (current) use of antithrombotics/antiplatelets; Z79.899 Other long term (current) drug therapy
CPT/HCPCS: 36415; 80186; 80053; 80177; 80185; 85025; 81001; 99284; 96365; 96367; 96375 ×2; 96376; J2060; J1165; J1953; J2270

== ENCOUNTER → 2017-06-22 | Outpatient (CLI) | payer OTHER | END | disposition home or self-care (01) | LOC: LABWHC1 15:49 | PROVIDERS: ATTEND Family Medicine | DX: G40.89 Other seizures (principal); I63.9 Cerebral infarction, unspecified | CPT/HCPCS: 36415; 80177; 80185 ==

== ENCOUNTER 2017-08-19 17:29 | Emergency (ER) | payer OTHER ==
[2017-08-19 17:36] VITALS: BP 125/73; PULSE 79; RESP 20; TEMP 98
[2017-08-19] MEDS ORDERED: LORazepam 1 MG TAB PO STA (18:10)
--- NOTE | 2017-08-19 18:22 | XR ---
EXAMINATION TYPE: XR hand complete RT DATE OF EXAM: 08/19/2017 CLINICAL HISTORY: Pain, possible foreign body near fourth digit TECHNIQUE: Frontal, lateral and oblique images of the right hand are obtained. COMPARISON: None. FINDINGS: There is no acute fracture/dislocation evident in the right hand. The joint spaces in the right hand appear within normal limits. There is persistent 3 mm linear density or foreign body in th e palmar surface at mid to distal level of first distal phalanx. IMPRESSION: There is no acute fracture or dislocation in the right hand. Tiny linear foreign body in the right thumb noted.
--- NOTE | 2017-08-19 18:30 | ED ---
Extremity Problem HPI - General Chief complaint: Extremity Problem,Nontraumatic Stated complaint: Hand pain/issue Time Seen by Provider: 08/19/17 17:37 Source: patient, RN notes reviewed Mode of arrival: ambulatory Limitations: no limitations - History of Present Illness Initial comments: This a 51-year-old male presents emergency Department with chief complaint of foreign body to his right hand. Patient states he is not exactly sure how long this is pending states that he was told that he had a catheter tip from an IV in his hand. Patient states that there is no associated pain denies any redness fevers chills or night sweats. Denies any weakness or paresthesias at this time. Patient states that he was recently at [place] for the doctor there told him this is what it was. Patient has no chest pain or shortness of breath - Related Data Home Medications Medication Instructions Recorded Confirmed Aspirin EC [Ecotrin] 325 mg PO DAILY 04/22/17 06/16/17 Buprenorphine HCl/Naloxone HCl 1 film SL DAILY 04/22/17 06/16/17 [Suboxone 4 mg-1 mg Sl Film] Buprenorphine HCl/Naloxone HCl 1 film SL DAILY 04/22/17 06/16/17 [Suboxone 8 mg-2 mg Sl Film] Carvedilol [Coreg] 25 mg PO BID 04/22/17 06/16/17 Phenytoin Sodium Extended 100 mg PO TID 04/22/17 06/16/17 [Dilantin] QUEtiapine FUMARATE [SEROquel] 200 mg PO HS 04/22/17 06/16/17 Valsartan/Hydrochlorothiazide 1 tab PO DAILY 04/22/17 06/16/17 [Valsartan-Hctz 160-25 mg Tab] Previous Rx's Medication Instructions Recorded Escitalopram [Lexapro] 20 mg PO DAILY #30 tab 01/28/16 Atorvastatin [Lipitor] 80 mg PO HS #30 tab 07/18/16 levETIRAcetam [Keppra] 750 mg PO BID #60 tab 07/19/16 LORazepam [Ativan] 1 mg PO TID PRN #6 tab 06/16/17 Allergies Allergy/AdvReac Type Severity Reaction Status Date / Time No Known Allergies Allergy Verified 08/19/17 17:35 Review of Systems ROS Statement: Those systems with pertinent positive or pertinent negative responses have been documented in the HPI. ROS Other: All systems not noted in ROS Statement are negative. Past Medical History Past Medical History: CVA/TIA, GERD/Reflux, Hypertension, Memory Impairment, Seizure Disorder Additional Past Medical History / Comment(s): He was tx for L intraparenchymal hemorrhage with R sided weakness of arm and leg and aphasia/dysphagia. He was discharged from there to rehab and had improvement in his R sided weakness, now has minimal slurring of words and pt states dysphagia. Other HX L lung pneumothorax d/t trauma yrs ago, , History of Any Multi-Drug Resistant Organisms: None Reported Past Surgical History: No Surgical Hx Reported Additional Past Surgical History / Comment(s): COLONOSCOPY POLYPS REMOVED-NEG, bilateral cataract removal, R testicular surgery as a little boy. Past Anesthesia/Blood Transfusion Reactions: No Reported Reaction Additional Past Anesthesia/Blood Transfusion Reaction / Comment(s): Pt has never recieved blood. Past Psychological History: Anxiety, Bipolar, Depression, Panic Disorder Smoking Status: Current every day smoker Past Alcohol Use History: None Reported Past Drug Use History: Prescription Drug Abuse - Past Family History Father Family Medical History: Cancer, Hyperlipidemia, Hypertension, Prostate Disorder Additional Family Medical History / Comment(s): PROSTATE CA Mother Family Medical History: Osteoarthritis (OA) Additional Family Medical History / Comment(s): MOM IS 71 General Exam Limitations: no limitations General appearance: alert, in no apparent distress Head exam: Present: atraumatic, normocephalic, normal inspection Neck exam: Present: normal inspection, full ROM. Absent: tenderness, meningismus, lymphadenopathy Respiratory exam: Present: normal lung sounds bilaterally. Absent: respiratory distress, wheezes, rales, rhonchi, stridor Cardiovascular Exam: Present: regular rate, normal rhythm, normal heart sounds. Absent: systolic murmur, diastolic murmur, rubs, gallop, clicks Extremities exam: Present: other (Right hand dorsal aspect there is 2 and half centimeter foreign body noted is slightly mobile nontender no erythema pulses equal bilaterally) Course Vital Signs 08/19/17 17:32 Temperature 98.0 F Pulse Rate 79 Respiratory 20 Rate Blood Pressure 125/73 O2 Sat by Pulse 100 Oximetry Medical Decision Making - Medical Decision Making 51-year-old male presented from it for performed by to his right hand. Patient did have an x-ray which shows no foreign body in the dorsal aspect there is a foreign body noted in his right thumb. Ultrasound the bedside showed foreign body. Patient's case discussed with Dr. Jonas by Dr. Steiner vascular surgery states that he can call tomorrow for an appointment on Sunday. There is no emergent procedure needed. Disposition Clinical Impression: Soft tissues foreign body Disposition: HOME SELF-CARE Condition: Stable Instructions: Soft Tissue Foreign Body (ED) Additional Instructions: Please call for an appointment was Dr. Jonas.Please return to the Emergency Department if symptoms worsen or any other concerns. Is patient prescribed a controlled substance at d/c from ED?: No Referrals: Srikanth Ervin MD [Primary Care Provider] - 1-2 days Benjy Jonas MD [STAFF PHYSICIAN] - 1-2 days Time of Disposition: 18:30
== END 2017-08-19 18:45 | disposition home or self-care (01) ==
LOC: EC 17:29
DX: S60.351A Superficial foreign body of right thumb, initial encounter (principal); I10 Essential (primary) hypertension; G40.909 Epilepsy, unspecified, not intractable, without status epilepticus; F31.9 Bipolar disorder, unspecified; F41.0 Panic disorder [episodic paroxysmal anxiety]; F17.200 Nicotine dependence, unspecified, uncomplicated; Z86.73 Personal history of transient ischemic attack (TIA), and cerebral infarction without residual deficits; Z79.82 Long term (current) use of aspirin; Z79.891 Long term (current) use of opiate analgesic; Z79.899 Other long term (current) drug therapy; W45.8XXA Other foreign body or object entering through skin, initial encounter
CPT/HCPCS: 99284

== ENCOUNTER 2017-08-24 17:07 | Inpatient (IN) | payer MEDICAID, OTHER ==
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
[2017-08-24 18:30] LABS: Amphetamine Screen,Urine Not Detected (NotDetected); Benzodiazepines Screen,Urine Not Detected (NotDetected); Cocaine Screen,Urine Not Detected (NotDetected); Methadone Screen, Urine Not Detected (NotDetected); Opiate Screen,Urine Detected (NotDetected); Phencyclidine Screen,Urine Not Detected (NotDetected); Tricyclic Antidepressant,Urine Detected (NotDetected); Urn Cannabinoid Scrn Not Detected (NotDetected)
[2017-08-24 18:31] LABS: Barbiturate Screen,Urine Detected (NotDetected); Oxycodone Screen, Urine Detected (NotDetected)
[2017-08-24] MEDS ORDERED: MAG HYDROX/AL HYDROX/SIMETH 30 ML CUP PO PRN (20:05)
[2017-08-24] MEDS ORDERED: MAGNESIUM HYDROXIDE 2,400 MG/10 ML CUP PO PRN (20:05)
[2017-08-24 20:36] LABS: Appearance,Urine Clear (Clear); Bilirubin,Urine Negative (Negative); Blood,Urine Negative (Negative); Color,Urine Light Yellow; Glucose,Urine (UA) Negative (Negative); Ketones,Urine Negative (Negative); Leukocyte Esterase,Urine Negative (Negative); Nitrite,Urine Negative (Negative); PH, Urine 6.5 (5.0-8.0); Protein,Urine Negative (Negative); Specific Gravity,Urine 1.009 (1.001-1.035); Urobilinogen,Urine <2.0 mg/dL (<2.0)
[2017-08-24] MEDS ORDERED: QUEtiapine 200 MG TAB PO SCH (21:00)
[2017-08-24 21:53] VITALS: BMI 26.9
[2017-08-24] MEDS: ATORVASTATIN 80 MG TAB PO SCH (22:41)
[2017-08-24] MEDS: PHENYTOIN SODIUM EXTENDED 100 MG CAP PO SCH (22:44)
[2017-08-24] MEDS: CARVEDILOL 12.5 MG TAB PO SCH (22:45)
[2017-08-25] MEDS: NICOTINE 21MG/24HR PATCH TRANSDERM SCH (08:05)
[2017-08-25] MEDS: ASPIRIN 325 MG TAB PO SCH (08:06)
[2017-08-25] MEDS: CARVEDILOL 12.5 MG TAB PO SCH ×2 (08:06→17:05)
[2017-08-25] MEDS: VALSARTAN 160 MG TAB PO SCH (08:06)
[2017-08-25] MEDS: PHENYTOIN SODIUM EXTENDED 100 MG CAP PO SCH ×2 (08:06→21:07)
[2017-08-25] MEDS: LORazepam 1 MG TAB PO PRN ×2 (08:07→17:02)
[2017-08-25] MEDS: HYDROCHLOROTHIAZIDE 25 MG TAB PO SCH (08:07)
[2017-08-25] MEDS: ACETAMINOPHEN TAB 325 MG TAB PO PRN ×3 (08:08→17:02)
[2017-08-25 08:57] LABS: Basophils # (A) 0.1 k/uL (0-0.2); Basophils % (A) 1 %; Eosinophils # (A) 0.2 k/uL (0-0.7); Eosinophils % (A) 2 %; HCT 46.1 % (39.0-53.0); Lymphocytes % (A) 23 %; MCH 33.4 pg (25.0-35.0); MCHC 34.8 g/dL (31.0-37.0); MCV 96.1 fL (80.0-100.0); Mean Platelet Volume 6.5; Monocytes # (A) 0.6 k/uL (0-1.0); Monocytes % (A) 7 %; Neutrophils # (A) 5.6 k/uL (1.3-7.7); Neutrophils % (A) 66 %; Platelet Count 285 k/uL (150-450); RDW 13.4 % (11.5-15.5); WBC 8.6 k/uL (3.8-10.6)
[2017-08-25 09:24] LABS: ALT 30 U/L (21-72); AST 21 U/L (17-59); Albumin 4.5 g/dL (3.5-5.0); Alkaline Phosphatase 79 U/L (38-126); Anion Gap 14 mmol/L; Blood Urea Nitrogen 17 mg/dL (9-20); Calcium 9.6 mg/dL (8.4-10.2); Carbon Dioxide 27 mmol/L (22-30); Chloride 101 mmol/L (98-107); Cholesterol 161 mg/dL (<200); Glucose 107 mg/dL (74-99); HDL Cholesterol 35 mg/dL (40-60); LDL Cholesterol,Calculated 78 mg/dL (0-99); Potassium 4.5 mmol/L (3.5-5.1); Sodium 142 mmol/L (137-145); Total Bilirubin 0.4 mg/dL (0.2-1.3); Total Protein 6.7 g/dL (6.3-8.2); Triglycerides 238 mg/dL (<150)
[2017-08-25 10:18] LABS: Phenytoin (Dilantin) 3.5 ug/mL
[2017-08-25] MEDS: PARoxetine 20 MG TAB PO SCH (13:47)
--- NOTE | 2017-08-25 14:10 | HP ---
HISTORY AND PHYSICAL DATE OF ADMISSION: 08/24/2017 IDENTIFYING DATA: A 51-year-old male patient. HISTORY OF PRESENT ILLNESS: Mr. Jeronimo presents to the inpatient psychiatric unit for admission with recent depression and thoughts of suicide. He says he has been off antidepressant for a while. He has still continued to take his Seroquel, but he started getting depressed. He says that he had been on an opioid pain medication and wanted to be off it because it was over powering for him, so he was placed on Suboxone, which he seemed to do well with, but when he went off of that, he started having significant headaches. His weight has dropped. He has been depressed. He started having some thoughts of suicide. Says he was not supposed to be taking Motrin at home, but was taking it along with Tylenol. He makes reference to still having 2 catheters in his hand and he says he was going to sliced them out. PSYCHIATRIC HISTORY: He has been admitted as an inpatient more than 10 times. He has had more than 5 suicide attempts and one time he had the gas going, one time he had a noose in a tree, another time he was going to jump in front of a truck. He does not recently see a psychiatrist or a counselor. He has been on Seroquel recently 200 mg at bedtime. He has been on several antidepressants in the past including Zoloft, Lexapro. It sounds like among others. He has never been on Paxil. History of diagnoses of bipolar disorder, polysubstance dependence, and panic disorder. PSYCHIATRIC FAMILY HISTORY: None known per chart history. Mom and aunt treated for depression. MEDICAL HISTORY: History of stroke, major headaches, still with weakness on the right side, seizure history, hypertension, hyperlipidemia, degenerative joint disease, goiter. DRUG AND ALCOHOL HISTORY: He says he has not used alcohol in 20 years. He would drink heavily in the past. Denies any history of street drugs. He says he has had an issue with pain medications. SOCIAL HISTORY: He lives by himself in an apartment. He is on disability from the stroke. No current relationship. He did have a short marriage which ended in divorce. He has no children. MENTAL STATUS EXAM: He is alert, cooperative, pleasant, not showing any agitation. His mood is described as "okay" if I can get rid of the headache. Regarding suicidal ideations, he currently denies. He does not voice any thoughts of harm to others. No evidence of psychosis or current agitation. Cognitively, he does have difficulty remembering things from the past. IMPRESSIONS: 1. Bipolar disorder, depressed. 2. History of polysubstance dependence. 3. History of panic disorder. PLAN/RECOMMENDATIONS: The patient will be admitted to the inpatient psychiatric unit at [facility] on a voluntary basis. He will be placed on SP 15-minute precautions. He will participate in group and activity therapies. Baseline laboratory workup will be done. A patient medical consultation will be ordered. Will maintain Seroquel 200 mg at bedtime to help with mood stabilization. We will add Paxil which he has never been on 20 mg daily to help with depression and any anxiety component. Will look into any support systems. Estimated length of stay is 3 to 5 days. Prognosis is guarded. We will continue to cover this patient through the weekend. PROMISE / ESVIN: [id number] /
--- NOTE | 2017-08-25 18:38 | P.PN ---
Progress Note - Text patient seen and examined, detailed note pending
[2017-08-25 18:49] LABS: Hemoglobin A1C 5.5 % (4.0-6.0)
--- NOTE | 2017-08-25 19:39 | CT ---
EXAMINATION TYPE: CT brain wo con DATE OF EXAM: 08/25/2017 COMPARISON: 04/22/2017 HISTORY: Right sided headache. CT DLP: 1003.4 mGycm Automated exposure control for dose reduction was used. FINDINGS: Mild generalized degenerative change. Area of low-attenuation the superior left parietal lobe is stab le from prior exam compatible with remote ischemia. No midline shift. No acute hemorrhage. Calvarium intact. Changes of chronic sinusitis are noted. Area of low attenuation within the white matter is nonspecific. IMPRESSION: REMOTE INFARCT LEFT PARIETAL LOBE WITH NONSPECIFIC WHITE MATTER CHANGES. FINDINGS ARE SIMILAR TO THE PRIOR EXAM. IF THERE IS CONCERN FOR ACUTE ISCHEMIA CORRELATE WITH MRI.
[2017-08-25] MEDS: BUTALB/APAP/CAFF 50-325-40MG TAB PO PRN (21:05)
[2017-08-25] MEDS: ATORVASTATIN 80 MG TAB PO SCH (21:06)
[2017-08-25] MEDS: QUEtiapine 50 MG TAB PO SCH (21:07)
[2017-08-26] MEDS: BUTALB/APAP/CAFF 50-325-40MG TAB PO PRN ×3 (06:39→21:23)
[2017-08-26] MEDS: LORazepam 1 MG TAB PO PRN ×2 (07:45→21:23)
[2017-08-26] MEDS: ASPIRIN 325 MG TAB PO SCH (07:45)
[2017-08-26] MEDS: VALSARTAN 160 MG TAB PO SCH (07:46)
[2017-08-26] MEDS: PHENYTOIN SODIUM EXTENDED 100 MG CAP PO SCH ×2 (07:47→21:19)
[2017-08-26] MEDS: CARVEDILOL 12.5 MG TAB PO SCH ×2 (07:47→17:53)
[2017-08-26] MEDS: PARoxetine 20 MG TAB PO SCH (07:47)
[2017-08-26] MEDS: HYDROCHLOROTHIAZIDE 25 MG TAB PO SCH (07:47)
[2017-08-26] MEDS: NICOTINE 21MG/24HR PATCH TRANSDERM SCH (07:48)
[2017-08-26] MEDS: ACETAMINOPHEN TAB 325 MG TAB PO PRN ×2 (09:16→16:54)
--- NOTE | 2017-08-26 17:31 | P.PN ---
Progress Note - Text Progress Note Date: 08/26/17 Interval history: Patient seen in [facility] today again. He reports that he continues to have a headache although it seems to be under better control today. It is noted that his Seroquel dose is 50 mg at bedtime today instead of the 200 mg, order was from Dr. Ervin. He seems to be tolerating the Paxil well. He does report that he addressed the catheters in his hand with Dr. Ervin. Mental status exam: He is alert and cooperative with the interview. Speech is fluent, not rapid or pressured. His mood he describes as a little better this morning but then seemed to go down some. He denies any current thoughts of harm to self or others. No evidence of psychosis. He does not show any agitation. Plan: Patient will be maintained on current dose of Paxil. We will inquire with Dr. Ervin regarding the change in Seroquel dosing. Continue to monitor his ongoing response to monitor for any medication side effects.
[2017-08-26] MEDS: ATORVASTATIN 80 MG TAB PO SCH (21:18)
[2017-08-26] MEDS: QUEtiapine 50 MG TAB PO SCH (21:20)
[2017-08-27] MEDS: BUTALB/APAP/CAFF 50-325-40MG TAB PO PRN ×3 (06:43→17:41)
[2017-08-27] MEDS: ACETAMINOPHEN TAB 325 MG TAB PO PRN ×3 (06:44→18:52)
[2017-08-27] MEDS: PARoxetine 20 MG TAB PO SCH (08:48)
[2017-08-27] MEDS: CARVEDILOL 12.5 MG TAB PO SCH ×2 (08:48→18:17)
[2017-08-27] MEDS: PHENYTOIN SODIUM EXTENDED 100 MG CAP PO SCH ×2 (08:48→21:24)
[2017-08-27] MEDS: HYDROCHLOROTHIAZIDE 25 MG TAB PO SCH (08:48)
[2017-08-27] MEDS: LORazepam 1 MG TAB PO PRN ×2 (08:48→17:45)
[2017-08-27] MEDS: VALSARTAN 160 MG TAB PO SCH (08:49)
[2017-08-27] MEDS: ASPIRIN 325 MG TAB PO SCH (08:49)
[2017-08-27] MEDS: NICOTINE 21MG/24HR PATCH TRANSDERM SCH (09:32)
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
[2017-08-27] MEDS: DIVALPROEX ER 500 MG TAB.ER.24H PO SCH (10:50)
[2017-08-27] MEDS ORDERED: LOPERAMIDE 2 MG CAP PO PRN (17:09)
[2017-08-27] MEDS: SODIUM CHLORIDE 0.9% 1,000 ML IV SCH (17:24)
[2017-08-27] MEDS: QUEtiapine 100 MG TAB PO SCH (21:24)
[2017-08-27] MEDS: ATORVASTATIN 80 MG TAB PO SCH (21:24)
[2017-08-28] MEDS: SODIUM CHLORIDE 0.9% 1,000 ML IV SCH ×3 (05:25→19:54)
[2017-08-28] MEDS: BUTALB/APAP/CAFF 50-325-40MG TAB PO PRN ×2 (06:55→13:31)
[2017-08-28] MEDS: ACETAMINOPHEN TAB 325 MG TAB PO PRN ×3 (06:56→20:48)
[2017-08-28] MEDS: NICOTINE 21MG/24HR PATCH TRANSDERM SCH (08:32)
[2017-08-28] MEDS: VALSARTAN 160 MG TAB PO SCH (08:33)
[2017-08-28] MEDS: DIVALPROEX ER 500 MG TAB.ER.24H PO SCH (08:33)
[2017-08-28] MEDS: CARVEDILOL 12.5 MG TAB PO SCH ×2 (08:33→17:51)
[2017-08-28] MEDS: PHENYTOIN SODIUM EXTENDED 100 MG CAP PO SCH ×2 (08:33→20:26)
[2017-08-28] MEDS: ASPIRIN 325 MG TAB PO SCH (08:33)
[2017-08-28] MEDS: HYDROCHLOROTHIAZIDE 25 MG TAB PO SCH (08:33)
[2017-08-28] MEDS: LORazepam 1 MG TAB PO PRN ×3 (08:34→21:58)
--- NOTE | 2017-08-28 10:20 | P.PN ---
Progress Note - Text Progress Note Date: 08/28/17 Patient was seen for a follow-up examination. Patient was started on IV fluids this morning as ordered at 8:45 by the medical service. Patient reported he was having diarrhea, got dehydrated and was started on IV fluids. His blood pressure at 653 this morning was 109/70 and at 845 this morning it was 131/82. His tongue is moist. Patient's Seroquel was increased from 50 to 100 mg at bedtime yesterday since he was telling me that he was taking 200 mg at bedtime. His blood pressure at 1:44 AM today was 126/79. Patient continues to say that he has headaches, drank some coffee and he feels better etc. He does not have any other complaints. This is a white ambulatory male with fair hygiene. He does not show any psychomotor agitation or retardation. His speech is fairly spontaneous and goal -directed. His mood is dysphoric and affect is somewhat constricted in range. He continues to deny hallucinations, delusional thinking, suicide and homicide thoughts. He continues to have some cognitive deficits. Plan: Continue Depakote Seroquel, groups and other therapies.
[2017-08-28] MEDS: ATORVASTATIN 80 MG TAB PO SCH (20:26)
[2017-08-28] MEDS: QUEtiapine 100 MG TAB PO SCH (20:26)
[2017-08-29] MEDS: ACETAMINOPHEN TAB 325 MG TAB PO PRN (06:29)
[2017-08-29] MEDS: BUTALB/APAP/CAFF 50-325-40MG TAB PO PRN (06:31)
[2017-08-29 06:42] VITALS: BP 114/67; PULSE 70; RESP 16; TEMP 97.5
[2017-08-29] MEDS: HYDROCHLOROTHIAZIDE 25 MG TAB PO SCH (09:08)
[2017-08-29] MEDS: ASPIRIN 325 MG TAB PO SCH (09:08)
[2017-08-29] MEDS: CARVEDILOL 12.5 MG TAB PO SCH (09:09)
[2017-08-29] MEDS: VALSARTAN 160 MG TAB PO SCH (09:09)
[2017-08-29] MEDS: PHENYTOIN SODIUM EXTENDED 100 MG CAP PO SCH (09:09)
[2017-08-29] MEDS: NICOTINE 21MG/24HR PATCH TRANSDERM SCH (09:09)
--- NOTE | 2017-08-29 09:12 | P.DS ---
Providers Date of admission: 08/24/17 19:38 Expected date of discharge: 08/29/17 Attending physician: Sarah Burnett Consults: 08/24/17 20:05 Consult Physician Routine Consulting Provider: Srikanth Ervin Consult Reason/Comments: H&P for mental Health admission Do you want consulting provider notified?: Yes Primary care physician: Srikanth Ervin Hospital Course: Patient had psychiatric evaluation done by Dr. Pinon, had physical examination and psychosocial evaluation. After psychiatric evaluation Dr. Gross started him on Paxil and continued Seroquel at 50 mg at bedtime and made the diagnosis of bipolar disorder depressed history of polysubstance dependence headache and history of panic disorder. I saw him on 08/27/2017 and I continued his diagnosis of bipolar 1 disorder depressed moderate and chained other diagnoses to opioid use disorder moderate mild neurocognitive disorder. Since he reported of headaches with some symptoms suggestive of migraine headaches, he was counseled and he agreed to try Depakote 1500 mg at bedtime. Patient's computed tomography scan of the brain showed mild generalized degenerative changes and old infarct of left parietal lobe. Patient continued to complain of right sided headache since he said he has left parietal lobe lesion. Patient continued to be quite somatic and at one point he felt he was dehydrated, his doctor was called who had ordered him IV fluids. Patient said he did not see any difference in headaches from any of the medications including Depakote and has been saying that only thing that helps him with the headache is drinking coffee. However he did not want to take/try Exedrin. Because of this his Depakote was discontinued. He said he is not suicidal or homicidal, would like to go home and continue with outpatient treatment with his family doctor Dr. Ervin. Since his acute status has resolved it was agreed to discharge him. Condition on discharge: This is a white ambulatory male who is unshaven. He is cooperative. He does not show psychomotor agitation or retardation. His speech is spontaneous and goal-directed. His mood is dull and affect is appropriate to the thought content. He continues to deny suicide and homicide thoughts hallucinations and delusional thinking. He plans on seeing his family doctor for continued outpatient treatment for the next 2 months and then to go to [place] where he has some property. He continues to have some cognitive deficits. His insight is fair to poor and judgment is adequate. Diagnosis on discharge: Bipolar 1 disorder most recent episode depressed moderate F 31.32. Opioid use disorder moderate F 11.20. 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 NKDA. Hypertension. Seizure disorder. Hyper lipidemia. Chronic headaches. Patient was advised and agreed to comply with outpatient treatment, not to drink alcohol or use drugs, not to drive or operate machinery, to call his doctor if he feels confused or develops suicidal thoughts and if he cannot get hold of the doctor to go to the nearest ER. Patient Condition at Discharge: Stable Plan - Discharge Summary Discharge Rx Participant: Yes New Discharge Prescriptions: New Acetaminophen Tab [Tylenol] 650 mg PO Q4HR PRN tab PRN Reason: Pain/Discomfort Butalb/APAP/Caff 50-325-40Mg [Fioricet 50-325-40] 1 each PO Q4HR PRN tab PRN Reason: Headache Mag Hydrox/Al Hydrox/Simeth [Maalox] 30 ml PO Q4HR PRN cup PRN Reason: GI Upset QUEtiapine [SEROquel] 100 mg PO HS tab Valsartan [Diovan] 160 mg PO DAILY tab Continue Atorvastatin [Lipitor] 80 mg PO HS #30 tab Carvedilol [Coreg] 25 mg PO BID Phenytoin Sodium Extended [Dilantin] 200 mg PO BID Aspirin EC [Ecotrin] 325 mg PO DAILY levETIRAcetam [Keppra] 750 mg PO HS levETIRAcetam [Keppra] 1,500 mg PO QAM Discontinued Valsartan/Hydrochlorothiazide [Valsartan-Hctz 160-25 mg Tab] 1 tab PO DAILY QUEtiapine FUMARATE [SEROquel] 200 mg PO HS Discharge Medication List Atorvastatin [Lipitor] 80 mg PO HS #30 tab 07/18/16 [Rx] Aspirin EC [Ecotrin] 325 mg PO DAILY 04/22/17 [History] Carvedilol [Coreg] 25 mg PO BID 04/22/17 [History] Phenytoin Sodium Extended [Dilantin] 200 mg PO BID 04/22/17 [History] levETIRAcetam [Keppra] 1,500 mg PO QAM 08/24/17 [History] levETIRAcetam [Keppra] 750 mg PO HS 08/24/17 [History] Acetaminophen Tab [Tylenol] 650 mg PO Q4HR PRN tab 08/29/17 [Rx] Butalb/APAP/Caff 50-325-40Mg [Fioricet 50-325-40] 1 each PO Q4HR PRN tab [Rx] Mag Hydrox/Al Hydrox/Simeth [Maalox] 30 ml PO Q4HR PRN cup 08/29/17 [Rx] QUEtiapine [SEROquel] 100 mg PO HS tab 08/29/17 [Rx] Valsartan [Diovan] 160 mg PO DAILY tab 08/29/17 [Rx] Follow up Appointment(s)/Referral(s): Srikanth Ervin MD [Primary Care Provider] - 1-2 days Benjy Jonas MD [STAFF PHYSICIAN] - 1-2 Days (Per pt's. d/c from the [facility] on 08/19/17 he is to call for a follow-up appointment with DR. Jonas/ Vascular Surgeon r/t XR RT Hand showing a 3 mm linear density foreign body in the palmar surface at mid to distal level of first distal phalanx. See previous EC d/c recommendations from 08/24/17.)
== END 2017-08-29 10:02 | disposition home or self-care (01) | DRG 885 ==
LOC: EC 17:07 → 3MHU 19:38
PROVIDERS: ADMIT Psychiatry & Neurology Psychiatry; ATTEND Psychiatry & Neurology Psychiatry
DX: F31.32 Bipolar disorder, current episode depressed, moderate (principal); R45.851 Suicidal ideations; F17.200 Nicotine dependence, unspecified, uncomplicated; I10 Essential (primary) hypertension; E78.5 Hyperlipidemia, unspecified; M19.90 Unspecified osteoarthritis, unspecified site; G40.909 Epilepsy, unspecified, not intractable, without status epilepticus; R51 Headache; G31.84 Mild cognitive impairment of uncertain or unknown etiology; K21.9 Gastro-esophageal reflux disease without esophagitis; F11.90 Opioid use, unspecified, uncomplicated; R13.10 Dysphagia, unspecified; E86.0 Dehydration; I69.128 Other speech and language deficits following nontraumatic intracerebral hemorrhage; I69.191 Dysphagia following nontraumatic intracerebral hemorrhage; Z79.82 Long term (current) use of aspirin; Z79.899 Other long term (current) drug therapy; Z80.42 Family history of malignant neoplasm of prostate; Z81.8 Family history of other mental and behavioral disorders; Z82.49 Family history of ischemic heart disease and other diseases of the circulatory system; Z91.5 Personal history of self-harm
CPT/HCPCS: 70450; 80053; 80061; 80185; 80306; 81003; 82075; 83036; 84443; 85025; 99285

== ENCOUNTER 2017-08-30 19:20 | Emergency (ER) | payer OTHER ==
[2017-08-30 19:37] VITALS: RESP 18; TEMP 98.6
[2017-08-30] MEDS ORDERED: ACETAMINOPHEN TAB 500 MG TAB PO STA (20:47)
--- NOTE | 2017-08-30 20:52 | ED ---
General Adult HPI - General Chief complaint: Psychiatric Symptoms Stated complaint: Mental Health Time Seen by Provider: 08/30/17 19:35 Source: patient, EMS, RN notes reviewed, old records reviewed Mode of arrival: EMS Limitations: no limitations - History of Present Illness Initial comments: Is a 31-year-old female the ER for evaluation. She presents today for evaluation regards to suicidal thoughts psychiatric symptoms. Patient was just discharged as he thought he was feeling better yesterday psychiatric unit. Patient returns with similar symptoms today, not feeling well, angry suicidal. - Related Data Home Medications Medication Instructions Recorded Confirmed Aspirin EC [Ecotrin] 325 mg PO DAILY 04/22/17 08/30/17 Carvedilol [Coreg] 25 mg PO BID 04/22/17 08/30/17 Phenytoin Sodium Extended 200 mg PO BID 04/22/17 08/30/17 [Dilantin] levETIRAcetam [Keppra] 1,500 mg PO QAM 08/24/17 08/30/17 levETIRAcetam [Keppra] 750 mg PO HS 08/24/17 08/30/17 Previous Rx's Medication Instructions Recorded Atorvastatin [Lipitor] 80 mg PO HS #30 tab 07/18/16 Acetaminophen Tab [Tylenol] 650 mg PO Q4HR PRN tab 08/29/17 Butalb/APAP/Caff 50-325-40Mg 1 each PO Q4HR PRN tab 08/29/17 [Fioricet 50-325-40] Mag Hydrox/Al Hydrox/Simeth 30 ml PO Q4HR PRN cup 08/29/17 [Maalox] QUEtiapine [SEROquel] 100 mg PO HS tab 08/29/17 Valsartan [Diovan] 160 mg PO DAILY tab 08/29/17 Allergies Allergy/AdvReac Type Severity Reaction Status Date / Time No Known Allergies Allergy Verified 08/30/17 19:50 Review of Systems ROS Statement: Those systems with pertinent positive or pertinent negative responses have been documented in the HPI. ROS Other: All systems not noted in ROS Statement are negative. Past Medical History Past Medical History: CVA/TIA, GERD/Reflux, Hypertension, Memory Impairment, Seizure Disorder Additional Past Medical History / Comment(s): He was tx for L intraparenchymal hemorrhage with R sided weakness of arm and leg and aphasia/dysphagia. He was discharged from there to rehab and had improvement in his R sided weakness, now has minimal slurring of words and pt states dysphagia. Other HX L lung pneumothorax d/t trauma yrs ago, , History of Any Multi-Drug Resistant Organisms: None Reported Past Surgical History: No Surgical Hx Reported Additional Past Surgical History / Comment(s): COLONOSCOPY POLYPS REMOVED-NEG, bilateral cataract removal, R testicular surgery as a little boy. Past Anesthesia/Blood Transfusion Reactions: No Reported Reaction Additional Past Anesthesia/Blood Transfusion Reaction / Comment(s): Pt has never recieved blood. Past Psychological History: Anxiety, Bipolar, Depression, Panic Disorder Smoking Status: Current every day smoker - Past Family History Father Family Medical History: Cancer, Hyperlipidemia, Hypertension, Prostate Disorder Additional Family Medical History / Comment(s): PROSTATE CA Mother Family Medical History: Osteoarthritis (OA) Additional Family Medical History / Comment(s): MOM IS 71 General Exam Limitations: no limitations General appearance: alert, in no apparent distress Head exam: Present: atraumatic, normocephalic, normal inspection Eye exam: Present: normal appearance, PERRL, EOMI. Absent: scleral icterus, conjunctival injection, periorbital swelling ENT exam: Present: normal exam, mucous membranes moist Neck exam: Present: normal inspection. Absent: tenderness, meningismus, lymphadenopathy Respiratory exam: Present: normal lung sounds bilaterally. Absent: respiratory distress, wheezes, rales, rhonchi, stridor Cardiovascular Exam: Present: regular rate, normal rhythm, normal heart sounds. Absent: systolic murmur, diastolic murmur, rubs, gallop, clicks GI/Abdominal exam: Present: soft, normal bowel sounds. Absent: distended, tenderness, guarding, rebound, rigid Extremities exam: Present: normal inspection, full ROM, normal capillary refill. Absent: tenderness, pedal edema, joint swelling, calf tenderness Back exam: Present: normal inspection Neurological exam: Present: alert, oriented X3, CN II-XII intact Psychiatric exam: Present: normal affect, normal mood Skin exam: Present: warm, dry, intact, normal color. Absent: rash Course Vital Signs 08/30/17 19:34 Temperature 98.6 F Pulse Rate 79 Respiratory 18 Rate Blood Pressure 120/77 O2 Sat by Pulse 98 Oximetry - Reevaluation(s) Reevaluation #1: 08/30/17 20:51 Patient is medically clear for psychiatric evaluation Medical Decision Making - Medical Decision Making 51 male seen evaluated with psychiatry, patient is stable for discharge home Disposition Clinical Impression: Major depression Disposition: HOME SELF-CARE Condition: Good Instructions: Depression (ED) Is patient prescribed a controlled substance at d/c from ED?: No Referrals: Srikanth Ervin MD [Primary Care Provider] - 1-2 days
[2017-08-30] MEDS ORDERED: HYDROcodone/APAP 5-325MG 1 EACH TAB PO STA (21:05)
[2017-08-30 21:58] VITALS: BP 130/77; PULSE 74
== END 2017-08-30 21:56 | disposition home or self-care (01) ==
LOC: EC 19:20
DX: F32.9 Major depressive disorder, single episode, unspecified (principal); I10 Essential (primary) hypertension; G40.909 Epilepsy, unspecified, not intractable, without status epilepticus; F17.200 Nicotine dependence, unspecified, uncomplicated; Z86.73 Personal history of transient ischemic attack (TIA), and cerebral infarction without residual deficits; Z79.82 Long term (current) use of aspirin; Z79.02 Long term (current) use of antithrombotics/antiplatelets; Z79.899 Other long term (current) drug therapy; Z53.20 Procedure and treatment not carried out because of patient's decision for unspecified reasons
CPT/HCPCS: 82075; 99285

== ENCOUNTER 2017-09-06 14:35 | Inpatient (IN) | payer MEDICAID, OTHER ==
--- NOTE | 2017-09-06 16:07 | ED ---
Psych HPI - General Chief Complaint: Psychiatric Symptoms Stated Complaint: depression Time Seen by Provider: 09/06/17 15:11 Source: patient, RN notes reviewed Mode of arrival: ambulatory Limitations: no limitations - History of Present Illness Initial Comments: 51-year-old male present emergency Department chief complaint of depression, suicidal ideation. Patient has been hospital with recent worsening depression psychiatric problems. Patient states that he needs help and he cannot tolerate this anymore. Patient denies any alcohol or drug abuse. Patient denies any physical complaints. - Related Data Home Medications Medication Instructions Recorded Confirmed Aspirin EC [Ecotrin] 325 mg PO DAILY 04/22/17 09/06/17 Carvedilol [Coreg] 25 mg PO BID 04/22/17 09/06/17 Phenytoin Sodium Extended 200 mg PO BID 04/22/17 09/06/17 [Dilantin] levETIRAcetam [Keppra] 1,500 mg PO QAM 08/24/17 09/06/17 levETIRAcetam [Keppra] 750 mg PO HS 08/24/17 09/06/17 Butalb/APAP/Caff 50-325-40Mg 1 tab PO Q4HR PRN 09/06/17 09/06/17 [Fioricet 50-325-40] Previous Rx's Medication Instructions Recorded Atorvastatin [Lipitor] 80 mg PO HS #30 tab 07/18/16 Acetaminophen Tab [Tylenol] 650 mg PO Q4HR PRN tab 08/29/17 Mag Hydrox/Al Hydrox/Simeth 30 ml PO Q4HR PRN cup 08/29/17 [Maalox] QUEtiapine [SEROquel] 100 mg PO HS tab 08/29/17 Valsartan [Diovan] 160 mg PO DAILY tab 08/29/17 Allergies Allergy/AdvReac Type Severity Reaction Status Date / Time No Known Allergies Allergy Verified 09/06/17 15:24 Review of Systems ROS Statement: Those systems with pertinent positive or pertinent negative responses have been documented in the HPI. ROS Other: All systems not noted in ROS Statement are negative. Past Medical History Past Medical History: CVA/TIA, GERD/Reflux, Hypertension, Memory Impairment, Seizure Disorder Additional Past Medical History / Comment(s): He was tx for L intraparenchymal hemorrhage with R sided weakness of arm and leg and aphasia/dysphagia. He was discharged from there to rehab and had improvement in his R sided weakness, now has minimal slurring of words and pt states dysphagia. Other HX L lung pneumothorax d/t trauma yrs ago, , History of Any Multi-Drug Resistant Organisms: None Reported Past Surgical History: No Surgical Hx Reported Additional Past Surgical History / Comment(s): COLONOSCOPY POLYPS REMOVED-NEG, bilateral cataract removal, R testicular surgery as a little boy. Past Anesthesia/Blood Transfusion Reactions: No Reported Reaction Additional Past Anesthesia/Blood Transfusion Reaction / Comment(s): Pt has never recieved blood. Past Psychological History: Anxiety, Bipolar, Depression, Panic Disorder Smoking Status: Current every day smoker - Past Family History Father Family Medical History: Cancer, Hyperlipidemia, Hypertension, Prostate Disorder Additional Family Medical History / Comment(s): PROSTATE CA Mother Family Medical History: Osteoarthritis (OA) Additional Family Medical History / Comment(s): MOM IS 71 General Exam Limitations: no limitations General appearance: alert, in no apparent distress Head exam: Present: atraumatic, normocephalic, normal inspection Eye exam: Present: normal appearance, PERRL, EOMI. Absent: scleral icterus, conjunctival injection, periorbital swelling ENT exam: Present: normal exam, normal oropharynx, mucous membranes moist Neck exam: Present: normal inspection, full ROM. Absent: tenderness, meningismus, lymphadenopathy Respiratory exam: Present: normal lung sounds bilaterally. Absent: respiratory distress, wheezes, rales, rhonchi, stridor Cardiovascular Exam: Present: regular rate, normal rhythm, normal heart sounds. Absent: systolic murmur, diastolic murmur, rubs, gallop, clicks GI/Abdominal exam: Present: soft, normal bowel sounds. Absent: distended, tenderness, guarding, rebound, rigid Neurological exam: Present: alert, oriented X3, CN II-XII intact Psychiatric exam: Present: depressed Skin exam: Present: warm, dry, intact, normal color. Absent: rash Course Vital Signs 09/06/17 14:54 Temperature 98.5 F Pulse Rate 99 Respiratory 18 Rate Blood Pressure 141/95 O2 Sat by Pulse 96 Oximetry Medical Decision Making - Lab Data Lab Results 09/06/17 Range/Units 16:46 Urine Opiates Screen Not Detected (NotDetected) Ur Oxycodone Screen Not Detected (NotDetected) Urine Methadone Screen Not Detected (NotDetected) Ur Propoxyphene Screen Not Detected (NotDetected) Ur Barbiturates Screen Detected H (NotDetected) U Tricyclic Antidepress Detected H (NotDetected) Ur Phencyclidine Scrn Not Detected (NotDetected) Ur Amphetamines Screen Not Detected (NotDetected) U Methamphetamines Scrn Not Detected (NotDetected) U Benzodiazepines Scrn Detected H (NotDetected) Urine Cocaine Screen Not Detected (NotDetected) U Marijuana (THC) Screen Not Detected (NotDetected) Disposition Clinical Impression: Depression, Suicidal ideation Disposition: ADMITTED IP TO THIS HOSP
[2017-09-06 17:09] LABS: Cocaine Screen,Urine Not Detected (NotDetected); Opiate Screen,Urine Not Detected (NotDetected); Phencyclidine Screen,Urine Not Detected (NotDetected); Urn Cannabinoid Scrn Not Detected (NotDetected)
[2017-09-06 17:10] LABS: Amphetamine Screen,Urine Not Detected (NotDetected); Barbiturate Screen,Urine Detected (NotDetected); Benzodiazepines Screen,Urine Detected (NotDetected); Methadone Screen, Urine Not Detected (NotDetected); Oxycodone Screen, Urine Not Detected (NotDetected); Tricyclic Antidepressant,Urine Detected (NotDetected)
[2017-09-06] MEDS ORDERED: ACETAMINOPHEN TAB 325 MG TAB PO PRN (17:46)
[2017-09-06] MEDS ORDERED: MAG HYDROX/AL HYDROX/SIMETH 30 ML CUP PO PRN (17:46)
[2017-09-06] MEDS ORDERED: MAGNESIUM HYDROXIDE 2,400 MG/10 ML CUP PO PRN (17:46)
[2017-09-06 18:02] LABS: Appearance,Urine Clear (Clear); Bilirubin,Urine Negative (Negative); Blood,Urine Small (Negative); Color,Urine Yellow; Glucose,Urine (UA) Negative (Negative); Ketones,Urine Negative (Negative); Leukocyte Esterase,Urine Negative (Negative); Mucus,Urine Rare /hpf; Nitrite,Urine Negative (Negative); PH, Urine 6.5 (5.0-8.0); Protein,Urine Trace (Negative); RBC,Urine 10 /hpf (0-5); Specific Gravity,Urine 1.019 (1.001-1.035); Urobilinogen,Urine <2.0 mg/dL (<2.0); WBC,Urine <1 /hpf (0-5)
[2017-09-06 18:46] VITALS: BMI 27.0
[2017-09-06] MEDS: NICOTINE 14MG/24HR PATCH TRANSDERM SCH (19:08)
[2017-09-06] MEDS: PHENYTOIN SODIUM EXTENDED 100 MG CAP PO SCH (20:46)
[2017-09-06] MEDS: CARVEDILOL 12.5 MG TAB PO SCH (20:46)
[2017-09-06] MEDS: ATORVASTATIN 80 MG TAB PO SCH (20:47)
[2017-09-06] MEDS ORDERED: QUEtiapine 100 MG TAB PO SCH (21:00)
[2017-09-07] MEDS: NICOTINE 14MG/24HR PATCH TRANSDERM SCH ×2 (08:32→10:50)
[2017-09-07] MEDS: PHENYTOIN SODIUM EXTENDED 100 MG CAP PO SCH ×2 (08:33→20:08)
[2017-09-07] MEDS: CARVEDILOL 12.5 MG TAB PO SCH ×2 (08:33→20:08)
[2017-09-07] MEDS: VALSARTAN 160 MG TAB PO SCH (08:33)
[2017-09-07] MEDS: ASPIRIN 325 MG TAB PO SCH (08:33)
[2017-09-07 10:43] LABS: Basophils # (A) 0.1 k/uL (0-0.2); Basophils % (A) 1 %; Eosinophils # (A) 0.1 k/uL (0-0.7); Eosinophils % (A) 1 %; HCT 45.3 % (39.0-53.0); HGB 15.5 gm/dL (13.0-17.5); Lymphocytes # (A) 1.5 k/uL (1.0-4.8); Lymphocytes % (A) 13 %; MCH 33.5 pg (25.0-35.0); MCHC 34.2 g/dL (31.0-37.0); MCV 98.1 fL (80.0-100.0); Mean Platelet Volume 7.2; Monocytes # (A) 0.9 k/uL (0-1.0); Monocytes % (A) 8 %; Neutrophils # (A) 8.9 k/uL (1.3-7.7); Neutrophils % (A) 77 %; Platelet Count 248 k/uL (150-450); RBC 4.61 m/uL (4.30-5.90); WBC 11.6 k/uL (3.8-10.6)
[2017-09-07] MEDS: AMITRIPTYLINE HCL 50 MG TAB PO SCH ×2 (10:45→20:09)
[2017-09-07] MEDS: LORazepam 1 MG TAB PO PRN (10:47)
[2017-09-07 10:55] LABS: ALT 50 U/L (21-72); AST 25 U/L (17-59); Albumin 4.4 g/dL (3.5-5.0); Alkaline Phosphatase 81 U/L (38-126); Anion Gap 9 mmol/L; Blood Urea Nitrogen 23 mg/dL (9-20); Calcium 9.6 mg/dL (8.4-10.2); Carbon Dioxide 25 mmol/L (22-30); Chloride 104 mmol/L (98-107); Cholesterol 160 mg/dL (<200); Glucose 115 mg/dL (74-99); HDL Cholesterol 48 mg/dL (40-60); LDL Cholesterol,Calculated 52 mg/dL (0-99); Phenytoin (Dilantin) 5.8 ug/mL; Potassium 4.8 mmol/L (3.5-5.1); Sodium 138 mmol/L (137-145); Total Bilirubin 0.5 mg/dL (0.2-1.3); Total Protein 6.5 g/dL (6.3-8.2); Triglycerides 298 mg/dL (<150)
--- NOTE | 2017-09-07 14:12 | P.CONS ---
History of Present Illness - Reason for Consult Consult date: 09/07/17 headaches. h/o CVA - History of Present Illness He is admitted to psych for worse depression and suicical ideation. He was just admitted 2 weeks ago for the same problem. At that visit, his headaches had been more of an issue, and Fioricet was used to help control. He reports BOO now better. NO CP, pressure, SOB, N/V, diarrrhea, constripation. and other than mood , is overall better. He has a h/o poor control of HTN, tobaccoism and Hemorrhagic CVA Review of Systems All systems: negative Past Medical History Past Medical History: CVA/TIA, GERD/Reflux, Hypertension, Memory Impairment, Seizure Disorder Additional Past Medical History / Comment(s): L intraparenchymal hemorrhage L lung pneumothorax , Migraine Headaches. History of Any Multi-Drug Resistant Organisms: None Reported Past Surgical History: No Surgical Hx Reported Additional Past Surgical History / Comment(s): COLONOSCOPY POLYPS REMOVED-NEG, bilateral cataract removal, R testicular surgery as a little boy. Past Anesthesia/Blood Transfusion Reactions: No Reported Reaction Additional Past Anesthesia/Blood Transfusion Reaction / Comm: Pt has never recieved blood. Past Psychological History: Anxiety, Bipolar, Depression, Panic Disorder Smoking Status: Current every day smoker Past Alcohol Use History: None Reported Past Drug Use History: Prescription Drug Abuse Additional Drug Use History / Comment(s): Pt has hx of polysubstance abuse per PMR-Adderall/xanax/flexeril, however pt currently denies this. - Past Family History Father Family Medical History: Cancer, Hyperlipidemia, Hypertension, Prostate Disorder Additional Family Medical History / Comment(s): PROSTATE CA Mother Family Medical History: Osteoarthritis (OA) Additional Family Medical History / Comment(s): MOM IS 71 Medications and Allergies Home Medications Medication Instructions Recorded Confirmed Type Atorvastatin [Lipitor] 80 mg PO HS #30 tab 07/18/16 09/06/17 Rx Aspirin EC [Ecotrin] 325 mg PO DAILY 04/22/17 09/06/17 History Carvedilol [Coreg] 25 mg PO BID 04/22/17 09/07/17 History Phenytoin Sodium Extended 200 mg PO BID 04/22/17 09/07/17 History [Dilantin] levETIRAcetam [Keppra] 1,500 mg PO QAM 08/24/17 09/07/17 History levETIRAcetam [Keppra] 750 mg PO HS 08/24/17 09/07/17 History Acetaminophen Tab [Tylenol] 650 mg PO Q4HR PRN tab 08/29/17 09/06/17 Rx Mag Hydrox/Al Hydrox/Simeth 30 ml PO Q4HR PRN cup 08/29/17 09/07/17 Rx [Maalox] QUEtiapine [SEROquel] 100 mg PO HS tab 08/29/17 09/07/17 Rx Valsartan [Diovan] 160 mg PO DAILY tab 08/29/17 09/07/17 Rx Butalb/APAP/Caff 50-325-40Mg 1 tab PO Q4HR PRN 09/06/17 09/07/17 History [Fioricet 50-325-40] Allergies Allergy/AdvReac Type Severity Reaction Status Date / Time No Known Allergies Allergy Verified 09/07/17 05:47 Physical Exam Vitals: Vital Signs Temp Pulse Pulse Resp BP BP Pulse Ox 09/07/17 06:33 98.1 F 63 16 92/51 09/06/17 18:37 98.1 F 79 20 130/77 96 09/06/17 17:59 99.1 F 78 18 136/91 96 09/06/17 14:54 98.5 F 99 18 141/95 96 Intake and Output 09/06/17 09/07/17 09/07/17 22:59 06:59 14:59 Other: Weight 78.216 kg - Constitutional General appearance: average body habitus - EENT Eyes: EOMI, PERRLA - Neck Neck: no lymphadenopathy, normal ROM, no thyromegaly - Respiratory Respiratory: bilateral: diminished - Cardiovascular Rhythm: regular Heart sounds: normal: S1, S2 Abnormal Heart Sounds: no systolic murmur - Gastrointestinal General gastrointestinal: normal bowel sounds - Neurologic Neurologic: CNII-XII intact - Musculoskeletal Musculoskeletal: gait normal - Psychiatric Psychiatric: A&O x's 3 (deferred to Psychiatry) Results CBC & Chem 7: 09/07/17 10:03 09/07/17 10:03 Labs: Abnormal Lab Results - Last 24 Hours (Table) 09/06/17 09/06/17 09/07/17 Range/Units 16:46 16:46 10:03 WBC 11.6 H (3.8-10.6) k/uL Neutrophils # 8.9 H (1.3-7.7) k/uL BUN (9-20) mg/dL Glucose (74-99) mg/dL Triglycerides (<150) mg/dL Urine Protein Trace H (Negative) Urine Blood Small H (Negative) Urine RBC 10 H (0-5) /hpf Urine Mucus Rare H (None) /hpf Ur Barbiturates Screen Detected H (NotDetected) U Tricyclic Antidepress Detected H (NotDetected) U Benzodiazepines Scrn Detected H (NotDetected) 09/07/17 Range/Units 10:03 WBC (3.8-10.6) k/uL Neutrophils # (1.3-7.7) k/uL BUN 23 H (9-20) mg/dL Glucose 115 H (74-99) mg/dL Triglycerides 298 H (<150) mg/dL Urine Protein (Negative) Urine Blood (Negative) Urine RBC (0-5) /hpf Urine Mucus (None) /hpf Ur Barbiturates Screen (NotDetected) U Tricyclic Antidepress (NotDetected) U Benzodiazepines Scrn (NotDetected) Assessment and Plan (1) Tobacco abuse Current Visit: Yes Status: Acute Code(s): Z72.0 - TOBACCO USE SNOMED Code( s): 613081633 (2) Opioid abuse, in remission Current Visit: Yes Status: Acute Code(s): F11.11 - OPIOID ABUSE, IN REMISSION SNOMED Code(s): 4953662718991 (3) Depression Current Visit: Yes Status: Acute Code(s): F32.9 - MAJOR DEPRESSIVE DISORDER , SINGLE EPISODE, UNSPECIFIED SNOMED Code(s): 75851727 (4) Headache Current Visit: No Status: Acute Code(s): R51 - HEADACHE SNOMED Code(s): 51672428 (5) Hypertension Current Visit: No Status: Acute Code(s): I10 - ESSENTIAL (PRIMARY) HYPERTENSION SNOMED Code(s): 14209818 (6) Essential (primary) hypertension Current Visit: Yes Status: Acute Code(s): I10 - ESSENTIAL (PRIMARY) HYPERTENSION SNOMED Code(s): 74314207 (7) Personal history of stroke with residual effects Current Visit: Yes Status: Acute Code(s): I69.30 - UNSPECIFIED SEQUELAE OF CEREBRAL INFARCTION SNOMED Code(s): 972271857 Plan: He will only use tylenol for headaches. He does not wish other pain meds at this time. We will f/u with him as needed through his stay.
--- NOTE | 2017-09-07 16:31 | P.HP ---
Psychiatric H&P - . H&P Date: 09/07/17 History & Physical: IDENTIFYING DATA: The patient is a 51-year-old male who has a history of a CVA, hemiparesis, seizure disorder and recurrent depression. He is readmitted this psychiatric unit with complaints of worsening depression and suicidal ideation. HISTORY OF PRESENT ILLNESS: He is had multiple admissions to this psychiatric unit and was just discharged about 1 weeks ago. He alleged that he was depressed when he was discharge. He stated that he went to a bar immediately after discharge and had 4 drinks. He has a history of alcohol use problems and realizes that if he continued drinking he would have a full relapse. He alleged that he has not had a drink of alcohol since that "slip". He complained of increasing sadness, hopelessness, helplessness and worthlessness. He is unemployed and he is unable to work due to his multiple medical problems. He lost his class [employer]'s license after he was diagnosed with a seizure disorder. He feels that hehas let himself and other peoples down. He has guilty ruminations about his past failures and "sometimes" thinks that his depression is a punishment. He did not express delusions of guilt, or described or accusatory or denunciatory auditory hallucinations. He feels that life is not worth living and "sometimes" wishes that he were . He has thoughts of and suicide but denied suicide gestures or attempts. He is difficulty falling and staying asleep and alleged that he only sleeps "a few hours" at night. He feels fatigued and weak. He experiences subjective tension and irritability. Somatic anxiety symptoms included dry mouth, headaches, heart palpitations and sweating. He has heaviness in his arms and breaks. He has no interest in sex and has lost his appetite. He denied the use of drugs to get high, help him sleep or changes mood. He denied a period of elevated mood or sustained irritability consistent with florentino or hypomania. His UDS was positive for barbiturates, tricyclic antidepressants and benzodiazepines. He denied obsessions or compulsions. He denied such psychotic symptoms as auditory, visual or olfactory hallucinations, ideas reference, thought insertion, thought broadcasting or thought control. PAST PSYCHIATRIC HISTORY: This is his sixth admission to this psychiatric unit since 2013. He was last discharged on 08/29/2017 with the diagnoses of bipolar 1 disorder most recent episode depressed, opiate use disorder moderate, mild vascular neurocognitive disorder. His only psychotropic medications at discharge was Seroquel 100 mg at bedtime. He is enrolled with [facility] but did not follow through with [facility] after his last discharge. He's been diagnosed with bipolar disorder due to the reported history of florentino. PAST MEDICAL HISTORY: He sustained a CVA 2 years ago that resulted in the right hemiparesis and a seizure disorder. His history of GERD/reflux, hypertension and memory impairment. He also has history of a left intraparenchymal hemorrhage and a left lung pneumothorax.. ALLERGIES: NO KNOWN DRUG ALLERGIES. SUBSTANCE USE HISTORY: He has a history of an alcohol use disorder with multiple other DUIs that resulted in a 2 year incarceration "several years ago" . He also has a history of opiate and psychostimulant use problems. He's been in several substance-abuse treatment programs primarily for his alcohol problems. There is also a history of Xanax and Flexeril abuse. FAMILY PSYCHIATRIC/SUBSTANCE USE HISTORY: His parents and history of alcohol use problems.. LEGAL HISTORY: He has had multiple other DUIs and was in long-term for 2 years following his last DUI convictions. SOCIAL HISTORY: He is and lives alone in his own apartment. He's been unemployed since his CVA. He receives social security income. He graduated from high school. MENTAL STATUS EXAM: He presented as a casually groomed and casually dressed middle-aged male who was pleasant on approach. He made eye contact and attended to the interview. He walks slowly with a limp. He had a slight right hemiparesis. He had a depressed facial expression. He was alert and oriented to person, place and time. He showed psychomotor retardation but no abnormal movements. His speech was spontaneous with decreased rate, rhythm and volume. He had no articulation difficulties. His affect was depressed and not reactive. He describes suicidal ideation and wishes. He denied suicide intent or plan. He denied homicidal ideation. He expressed depressive cognitions including hopelessness, helplessness and worthlessness. He ruminated about his physical disability and his inability to work. He did not express phobias, ideas reference, paranoid ideation or delusional thoughts. His thinking was concrete but his associations were logical, coherent goal directed. He denied hallucinations and did not appear to be responding to internal stimuli. Global impression of intellect is average. He is aware of his illness and need for mental health treatment. STRENGTHS: Stable housing, stable income, involvement community mental health services. WEAKNESSES: Poor compliance with mental health care, multiple medical problems. Allergies Allergy/AdvReac Type Severity Reaction Status Date / Time No Known Allergies Allergy Verified 09/07/17 05:47 Vital Signs Temp 98.1 F 09/07/17 06:33 Pulse 63 09/07/17 06:33 Resp 16 09/07/17 06:33 BP 92/51 09/07/17 06:33 Pulse Ox 96 09/06/17 18:37 Intake & Output 09/06/17 09/07/17 09/07/17 18:59 06:59 18:59 Weight 78.216 kg Laboratory Last Values WBC 11.6 k/uL (3.8-10.6) H 09/07/17 10:03 RBC 4.61 m/uL (4.30-5.90) 09/07/17 10:03 Hgb 15.5 gm/dL (13.0-17.5) 09/07/17 10:03 Hct 45.3 % (39.0-53.0) 09/07/17 10:03 MCV 98.1 fL (80.0-100.0) 09/07/17 10:03 MCH 33.5 pg (25.0-35.0) 09/07/17 10:03 MCHC 34.2 g/dL (31.0-37.0) 09/07/17 10:03 RDW 14.0 % (11.5-15.5) 09/07/17 10:03 Plt Count 248 k/uL (150-450) 09/07/17 10:03 Neutrophils % 77 % 09/07/17 10:03 Lymphocytes % 13 % 09/07/17 10:03 Monocytes % 8 % 09/07/17 10:03 Eosinophils % 1 % 09/07/17 10:03 Basophils % 1 % 09/07/17 10:03 Neutrophils # 8.9 k/uL (1.3-7.7) H 09/07/17 10:03 Lymphocytes # 1.5 k/uL (1.0-4.8) 09/07/17 10:03 Monocytes # 0.9 k/uL (0-1.0) 09/07/17 10:03 Eosinophils # 0.1 k/uL (0-0.7) 09/07/17 10:03 Basophils # 0.1 k/uL (0-0.2) 09/07/17 10:03 Sodium 138 mmol/L (137-145) 09/07/17 10:03 Potassium 4.8 mmol/L (3.5-5.1) 09/07/17 10:03 Chloride 104 mmol/L (98-107) 09/07/17 10:03 Carbon Dioxide 25 mmol/L (22-30) 09/07/17 10:03 Anion Gap 9 mmol/L 09/07/17 10:03 BUN 23 mg/dL (9-20) H 09/07/17 10:03 Creatinine 1.00 mg/dL (0.66-1.25) 09/07/17 10:03 Est GFR (CKD-EPI)AfAm >90 (>60 ml/min/1.73 sqM) 09/07/17 10:03 Est GFR (CKD-EPI)NonAf 86 (>60 ml/min/1.73 sqM) 09/07/17 10:03 Glucose 115 mg/dL (74-99) H 09/07/17 10:03 Calcium 9.6 mg/dL (8.4-10.2) 09/07/17 10:03 Total Bilirubin 0.5 mg/dL (0.2-1.3) 09/07/17 10:03 AST 25 U/L (17-59) 09/07/17 10:03 ALT 50 U/L (21-72) 09/07/17 10:03 Alkaline Phosphatase 81 U/L (38-126) 09/07/17 10:03 Total Protein 6.5 g/dL (6.3-8.2) 09/07/17 10:03 Albumin 4.4 g/dL (3.5-5.0) 09/07/17 10:03 Triglycerides 298 mg/dL (<150) H 09/07/17 10:03 Cholesterol 160 mg/dL (<200) 09/07/17 10:03 LDL Cholesterol, Calc 52 mg/dL (0-99) 09/07/17 10:03 HDL Cholesterol 48 mg/dL (40-60) 09/07/17 10:03 TSH 0.964 mIU/L (0.465-4.680) 09/07/17 10:03 Urine Color Yellow 09/06/17 16:46 Urine Appearance Clear (Clear) 09/06/17 16:46 Urine pH 6.5 (5.0-8.0) 09/06/17 16:46 Ur Specific [place] 1.019 (1.001-1.035) 09/06/17 16:46 Urine Protein Trace (Negative) H 09/06/17 16:46 Urine Glucose (UA) Negative (Negative) 09/06/17 16:46 Urine Ketones Negative (Negative) 09/06/17 16:46 Urine Blood Small (Negative) H 09/06/17 16:46 Urine Nitrite Negative (Negative) 09/06/17 16:46 Urine Bilirubin Negative (Negative) 09/06/17 16:46 Urine Urobilinogen <2.0 mg/dL (<2.0) 09/06/17 16:46 Ur Leukocyte Esterase Negative (Negative) 09/06/17 16:46 Urine RBC 10 /hpf (0-5) H 09/06/17 16:46 Urine WBC <1 /hpf (0-5) 09/06/17 16:46 Urine Mucus Rare /hpf (None) H 09/06/17 16:46 Urine Opiates Screen Not Detected (NotDetected) 09/06/17 16:46 Ur Oxycodone Screen Not Detected (NotDetected) 09/06/17 16:46 Urine Methadone Screen Not Detected (NotDetected) 09/06/17 16:46 Ur Propoxyphene Screen Not Detected (NotDetected) 09/06/17 16:46 Ur Barbiturates Screen Detected (NotDetected) H 09/06/17 16:46 Phenytoin 5.8 ug/mL 09/07/17 10:03 U Tricyclic Antidepress Detected (NotDetected) H 09/06/17 16:46 Ur Phencyclidine Scrn Not Detected (NotDetected) 09/06/17 16:46 Ur Amphetamines Screen Not Detected (NotDetected) 09/06/17 16:46 U Methamphetamines Scrn Not Detected (NotDetected) 09/06/17 16:46 U Benzodiazepines Scrn Detected (NotDetected) H 09/06/17 16:46 Urine Cocaine Screen Not Detected (NotDetected) 09/06/17 16:46 U Marijuana (THC) Screen Not Detected (NotDetected) 09/06/17 16:46 09/07/17 14:38 09/07/17 16:27 Assessment and Plan Assessment: He has a 51-year-old male who has a history of an alcohol use disorder , physical disability secondary to a CVA and intraparenchymal bleed, chronic depression and multiple psychiatric hospitalizations. He presented to the psychiatric unit about one week after his prior discharge with complaints of increasing depression and suicidal ideation. He attributes the increasing depression and suicidal ideation to inadequate treatment of his depressive illness. We discussed treatment options and he agreed to a trial of the antidepressant Elavil an increase in Seroquel. (1) Personal history of stroke with residual effects Current Visit: Yes Status: Chronic Priority: Medium Code(s): I69.30 - UNSPECIFIED SEQUELAE OF CEREBRAL INFARCTION SNOMED Code(s): 912892718 (2) Suicidal ideation Current Visit: Yes Status: Acute Priority: Medium Code(s): R45.851 - SUICIDAL IDEATIONS SNOMED Code(s): 2851439 (3) Seizure disorder Current Visit: No Status: Chronic Priority: Low Code(s): G40.909 - EPILEPSY, UNSP, NOT INTRACTABLE, WITHOUT STATUS EPILEPTICUS SNOMED Code(s): 870209253 (4) Major depression Current Visit: No Status: Chronic Priority: High Code(s): F32.9 - MAJOR DEPRESSIVE DISORDER, SINGLE EPISODE, UNSPECIFIED SNOMED Code(s): 810340440 Plan: Admitted to the psychiatric unit under care of this journalists and other writers. Safety precautions. Consult medicine service for initial physical exam and medical history. Continue outpatient medications including aspirin 325 mg daily, Lipitor 80 mg at bedtime, Coreg 25 mg twice a day, Keppra 6 750 mg at bedtime and 1500 mg a.m., Dilantin 200 mg twice a day and valsartan 160 mg daily. Increase Seroquel to 200 mg at bedtime and begin a trial of Elavil 50 mg by mouth twice a day for the treatment of depression. case worker to complete initial psychosocial evaluation. Encourage participation in therapeutic groups and activities. Evaluate clinical status response to treatment daily basis.
[2017-09-07 18:40] LABS: Hemoglobin A1C 5.3 % (4.0-6.0)
[2017-09-07] MEDS: ATORVASTATIN 80 MG TAB PO SCH (20:08)
[2017-09-07] MEDS: QUEtiapine 100 MG TAB PO SCH (20:08)
[2017-09-08] MEDS: VALSARTAN 160 MG TAB PO SCH (08:45)
[2017-09-08] MEDS: NICOTINE 14MG/24HR PATCH TRANSDERM SCH (08:45)
[2017-09-08] MEDS: CARVEDILOL 12.5 MG TAB PO SCH ×2 (08:45→19:49)
[2017-09-08] MEDS: AMITRIPTYLINE HCL 50 MG TAB PO SCH ×2 (08:45→19:53)
[2017-09-08] MEDS: PHENYTOIN SODIUM EXTENDED 100 MG CAP PO SCH ×2 (08:45→19:49)
[2017-09-08] MEDS: ASPIRIN 325 MG TAB PO SCH (08:45)
--- NOTE | 2017-09-08 12:40 | P.PN ---
Subjective Progress Note Date: 09/08/17 Principal diagnosis: Major depressive disorder recurrent multiple episodes, suicidal ideation, seizure disorder, personality history of a CVA with residual deficits I reviewed the medical record and interviewed the patient. He stated that he is "feeling safe" and has not experienced suicidal thoughts since admission. He continues to feel sad, hopeless and worthless. He denied side effects to the Elavil. We reviewed his seizure history and he stated that he has last seizure in April 2017. He is attended most therapeutic groups and activities. He slept 6 hours last night. Objective - Vital Signs Vital signs: Vital Signs Temp 97.7 F 09/08/17 05:46 Pulse 78 09/08/17 09:44 Resp 20 09/08/17 09:44 BP 136/76 09/08/17 09:44 Pulse Ox 96 09/06/17 18:37 - Psychiatric Psychiatric Comment(s): He presented as a casually groomed 50-year-old male who is wearing a T -shirt and pajama bottoms. He made eye contact and attended the interview. He walks slowly with a limp but had no prominent physical difficulties. He had a depressed facial expression. He showed psychomotor retardation but no abnormal movements. His speech was spontaneous with decreased rate, rhythm and volume. His affect was depressed and not reactive. He denied suicidal ideation or wishes. He denied homicidal ideation. He expressed such depressive cognitions as hopelessness, helplessness and worthlessness. He did not express ideas reference, phobias, paranoid ideation or delusions. His thinking was abstract and associations were coherent and logical. He denied hallucinations and did not appear to be responding to internal stimuli. - Labs CBC & Chem 7: 09/07/17 10:03 09/07/17 10:03 Assessment and Plan Assessment: He Continues to have signs and symptoms of a depressive disorder but is denying suicidal thoughts or wishes. (1) Suicidal ideation Current Visit: Yes Status: Acute Priority: Medium Code(s): R45.851 - SUICIDAL IDEATIONS SNOMED Code(s): 7063753 (2) Major depressive disorder, recurrent episode Current Visit: Yes Status: Acute Priority: High Code(s): F33.9 - MAJOR DEPRESSIVE DISORDER, RECURRENT, UNSPECIFIED SNOMED Code(s): 511320712 (3) Seizure disorder Current Visit: No Status: Chronic Priority: Low Code(s): G40.909 - EPILEPSY, UNSP, NOT INTRACTABLE, WITHOUT STATUS EPILEPTICUS SNOMED Code(s): 009924363 (4) Personal history of stroke with residual effects Current Visit: Yes Status: Chronic Priority: Medium Code(s): I69.30 - UNSPECIFIED SEQUELAE OF CEREBRAL INFARCTION SNOMED Code(s): 628449411 Plan: Continue inpatient psychiatric hospitalization. Safety precautions. Continue outpatient medications including aspirin 325 mg daily, Lipitor 80 mg at bedtime , Coreg 25 mg twice a day, Keppra 6 750 mg at bedtime and 1500 mg a.m., Dilantin 200 mg twice a day and valsartan 160 mg daily. Continue Seroquel to 200 mg at bedtime and Elavil 50 mg by mouth twice a day for the treatment of depression. Adjust the dose of Elavil based on therapeutic effect and clinical tolerance. Encourage continued participation in therapeutic groups and activities. Evaluate clinical status response to treatment daily basis.
[2017-09-08] MEDS: LORazepam 1 MG TAB PO PRN (17:05)
[2017-09-08] MEDS: ATORVASTATIN 80 MG TAB PO SCH (19:49)
[2017-09-08] MEDS: QUEtiapine 100 MG TAB PO SCH (19:52)
[2017-09-09] MEDS: NICOTINE 14MG/24HR PATCH TRANSDERM SCH (09:09)
[2017-09-09] MEDS: PHENYTOIN SODIUM EXTENDED 100 MG CAP PO SCH ×2 (09:10→20:58)
[2017-09-09] MEDS: AMITRIPTYLINE HCL 50 MG TAB PO SCH ×2 (09:11→20:58)
[2017-09-09] MEDS: ASPIRIN 325 MG TAB PO SCH (09:11)
[2017-09-09] MEDS: CARVEDILOL 12.5 MG TAB PO SCH ×2 (09:11→20:58)
[2017-09-09] MEDS: VALSARTAN 160 MG TAB PO SCH (09:15)
[2017-09-09] MEDS: LORazepam 1 MG TAB PO PRN ×2 (10:34→22:08)
--- NOTE | 2017-09-09 12:39 | P.PN ---
Subjective Progress Note Date: 09/09/17 Principal diagnosis: Major depressive disorder recurrent multiple episodes, suicidal ideation, seizure disorder, personality history of a CVA with residual deficits I reviewed the medical record and interviewed the patient. He feels less depressed than when he was at home. At home, he was preoccupied by thoughts of suicide. He stated he has experienced "occasional thoughts" of suicide but the frequency and intensity have decreased considerably. He talked about feeling depressed since his CVA. He believes that the CVA has affected a part of his brain that is responsible for happiness and contentment. He recognizes that his depression and anhedonia has worsened since he abruptly stop Suboxone (12 mg per day) 1 month ago. 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 She denied side effects to the current dose of Elavil. We discussed treatment options and agreed to increase the dose to 150 mg per day. Objective - Vital Signs Vital signs: Vital Signs Temp 97.7 F 09/09/17 06:26 Pulse 77 09/09/17 06:26 Resp 16 09/09/17 06:26 BP 118/83 09/09/17 06:26 Pulse Ox 96 09/06/17 18:37 - Psychiatric Psychiatric Comment(s): He presented as a casually dressed and casually groomed 51-year-old male who was pleasant on approach. He made eye contact and attended to the interview. He had a depressed facial expression. He showed psychomotor retardation but no abnormal movements. His gait was slow but steady. His speech was spontaneous with decreased rate, rhythm and volume. His affect was depressed and reactive briefly when he talked about his hobby. He denied experiencing current suicidal ideation or wishes. He denied homicidal ideation. He continues to experience feelings of hopelessness, helplessness and worthlessness. He talked considerably about his losses including the loss of his license due to seizure disorder and his inability to maintain employment. He did not express phobias, ideas reference or paranoid delusions. His thinking was abstract and associations were coherent and logical. He denied current auditory or visual hallucinations and did not appear to be responding to internal stimuli. - Labs CBC & Chem 7: 09/07/17 10:03 09/07/17 10:03 Assessment and Plan Assessment: He cut continues to demonstrate symptoms of depression but is less preoccupied with suicidal thoughts. Overall, he is moderately mentally ill and minimally improve from admission. (1) Suicidal ideation Current Visit: Yes Status: Acute Priority: Medium Code(s): R45.851 - SUICIDAL IDEATIONS SNOMED Code(s): 1241927 (2) Major depressive disorder, recurrent episode Current Visit: Yes Status: Acute Priority: High Code(s): F33.9 - MAJOR DEPRESSIVE DISORDER, RECURRENT, UNSPECIFIED SNOMED Code(s): 463364729 (3) Seizure disorder Current Visit: No Status: Chronic Priority: Low Code(s): G40.909 - EPILEPSY, UNSP, NOT INTRACTABLE, WITHOUT STATUS EPILEPTICUS SNOMED Code(s): 454715819 (4) Personal history of stroke with residual effects Current Visit: Yes Status: Chronic Priority: Medium Code(s): I69.30 - UNSPECIFIED SEQUELAE OF CEREBRAL INFARCTION SNOMED Code(s): 130322413 Plan: Continue inpatient psychiatric hospitalization. Safety precautions. Continue outpatient medications including aspirin 325 mg daily, Lipitor 80 mg at bedtime , Coreg 25 mg twice a day, Keppra 6 750 mg at bedtime and 1500 mg a.m., Dilantin 200 mg twice a day and valsartan 160 mg daily. Continue Seroquel to 200 mg at bedtime. Increase Elavil to 50 mg daily and 100 mg at bedtime. Adjust the dose of Elavil based on therapeutic effect and clinical tolerance. Encourage continued participation in therapeutic groups and activities. Evaluate clinical status response to treatment daily basis.
[2017-09-09] MEDS: ATORVASTATIN 80 MG TAB PO SCH (20:58)
[2017-09-09] MEDS: QUEtiapine 100 MG TAB PO SCH (20:58)
[2017-09-10] MEDS: NICOTINE 14MG/24HR PATCH TRANSDERM SCH (09:16)
[2017-09-10] MEDS: VALSARTAN 160 MG TAB PO SCH (09:17)
[2017-09-10] MEDS: ASPIRIN 325 MG TAB PO SCH (09:17)
[2017-09-10] MEDS: AMITRIPTYLINE HCL 50 MG TAB PO SCH ×2 (09:17→20:03)
[2017-09-10] MEDS: PHENYTOIN SODIUM EXTENDED 100 MG CAP PO SCH ×2 (09:18→20:04)
[2017-09-10] MEDS: CARVEDILOL 12.5 MG TAB PO SCH ×2 (09:19→20:03)
[2017-09-10] MEDS: LORazepam 1 MG TAB PO PRN ×2 (09:23→19:19)
--- NOTE | 2017-09-10 13:09 | P.PN ---
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 He feels more depressed than yesterday but denied thoughts of or suicide. He perseverated about the loss of his ability to feel happy or experience pleasure. He talked about a part of his brain that is "not working." He remembers staff at [facility] telling him this was the result of his long use of opiate medications and that it would take "a while" for him to be able to once again experience pleasure. He sought assurance that he would be able to feel normal again. He slept 4 hours last night and has been attending therapeutic groups and activities. He denied side effects to the increased dose of Elavil. Objective - Vital Signs Vital signs: Vital Signs Temp 97.8 F 09/10/17 06:12 Pulse 78 09/10/17 09:27 Resp 18 09/10/17 09:27 BP 134/87 09/10/17 09:27 Pulse Ox 96 09/06/17 18:37 Intake & Output 09/09/17 09/10/17 09/10/17 18:59 06:59 18:59 Weight 80.4 kg - Psychiatric Psychiatric Comment(s): He presented as a casually groomed 51-year-old male who was pleasant on approach. He made eye contact and attended to the interview. He had a depressed facial expression. He showed psychomotor retardation but no abnormal movements. Her speech was spontaneous with decreased rate, rhythm and volume. His affect was depressed and not reactive. He denied suicidal ideation or wishes. He expressed feelings of hopelessness and helplessness particularly with regard to his anhedonia. He did not express ideas reference, paranoid ideation or delusions. His thinking was abstract and associations were coherent and logical. He denied hallucinations and did not appear to be responding to internal stimuli. - Labs CBC & Chem 7: 09/07/17 10:03 09/07/17 10:03 Assessment and Plan Assessment: He remains sad, hopeless and helpless but is denying suicidal ideation, intent or plan. Overall, he is moderately mentally ill and minimally improve from admission. (1) Suicidal ideation Current Visit: Yes Status: Acute Priority: Medium Code(s): R45.851 - SUICIDAL IDEATIONS SNOMED Code(s): 1249125 (2) Major depressive disorder, recurrent episode Current Visit: Yes Status: Acute Priority: High Code(s): F33.9 - MAJOR DEPRESSIVE DISORDER, RECURRENT, UNSPECIFIED SNOMED Code(s): 357307137 (3) Seizure disorder Current Visit: No Status: Chronic Priority: Low Code(s): G40.909 - EPILEPSY, UNSP, NOT INTRACTABLE, WITHOUT STATUS EPILEPTICUS SNOMED Code(s): 309122039 (4) Personal history of stroke with residual effects Current Visit: Yes Status: Chronic Priority: Medium Code(s): I69.30 - UNSPECIFIED SEQUELAE OF CEREBRAL INFARCTION SNOMED Code(s): 596786430 Plan: Continue inpatient psychiatric hospitalization. Safety precautions. Continue Seroquel to 200 mg at bedtime and Elavil to 50 mg daily and 100 mg at bedtime. Adjust the dose of Elavil based on therapeutic effect and clinical tolerance. Continue outpatient medications including aspirin 325 mg daily, Lipitor 80 mg at bedtime, Coreg 25 mg twice a day, Keppra 6 750 mg at bedtime and 1500 mg a.m. , Dilantin 200 mg twice a day and valsartan 160 mg daily. Encourage continued participation in therapeutic groups and activities. Evaluate clinical status response to treatment daily basis.
[2017-09-10] MEDS: ATORVASTATIN 80 MG TAB PO SCH (20:03)
[2017-09-10] MEDS: QUEtiapine 100 MG TAB PO SCH (20:03)
[2017-09-11] MEDS: ASPIRIN 325 MG TAB PO SCH (09:01)
[2017-09-11] MEDS: NICOTINE 14MG/24HR PATCH TRANSDERM SCH (09:01)
[2017-09-11] MEDS: PHENYTOIN SODIUM EXTENDED 100 MG CAP PO SCH ×2 (09:01→21:14)
[2017-09-11] MEDS: VALSARTAN 160 MG TAB PO SCH (09:01)
[2017-09-11] MEDS: CARVEDILOL 12.5 MG TAB PO SCH ×2 (09:02→21:14)
[2017-09-11] MEDS: AMITRIPTYLINE HCL 50 MG TAB PO SCH ×2 (09:02→21:13)
[2017-09-11] MEDS: LORazepam 1 MG TAB PO PRN ×2 (11:11→19:00)
--- NOTE | 2017-09-11 14:25 | P.PN ---
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 He stated that he feels less depressed than on admission. He denied having thoughts of suicide. 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 He talked about the difficulty he has motivating himself to engage in his hobbies. We discussed discharge and aftercare. He spoke with the liaison to [facility] and plans to resume treatment with [facility]. I explained that we could not keep him in the hospital beyond this week and he agreed to be discharged tomorrow. Objective - Vital Signs Vital signs: Vital Signs Temp 98.0 F 09/11/17 06:21 Pulse 78 09/11/17 09:04 Resp 16 09/11/17 06:21 BP 130/77 09/11/17 09:04 Pulse Ox 96 09/06/17 18:37 - Psychiatric Psychiatric Comment(s): He presented as a casually dressed and groomed 51-year-old male who was pleasant on approach. He made eye contact and attended to the interview. He had a depressed facial expression that did not change during the interview. He showed some psychomotor slowing but no abnormal movements. His speech was spontaneous with normal rate, rhythm and volume. His affect was depressed and not reactive. He denied suicidal ideation or wishes. He did not express ideas reference, paranoid ideation or delusions. His thinking was concrete but his associations were coherent and logical. He denied auditory hallucinations and did not appear to be responding to internal stimuli. - Labs CBC & Chem 7: 09/07/17 10:03 09/07/17 10:03 Assessment and Plan Assessment: He is depressed and reports ongoing anhedonia. He is denying suicidal ideation , intent or plan. Overall, he is moderately mentally ill and moderately improve from admission. (1) Suicidal ideation Current Visit: Yes Status: Resolved Priority: Low Code(s): R45.851 - SUICIDAL IDEATIONS SNOMED Code(s): 9525166 (2) Major depressive disorder, recurrent episode Current Visit: Yes Status: Acute Priority: Medium Code(s): F33.9 - MAJOR DEPRESSIVE DISORDER, RECURRENT, UNSPECIFIED SNOMED Code(s): 401621053 (3) Seizure disorder Current Visit: No Status: Chronic Priority: Low Code(s): G40.909 - EPILEPSY, UNSP, NOT INTRACTABLE, WITHOUT STATUS EPILEPTICUS SNOMED Code(s): 517142631 (4) Personal history of stroke with residual effects Current Visit: Yes Status: Chronic Priority: Medium Code(s): I69.30 - UNSPECIFIED SEQUELAE OF CEREBRAL INFARCTION SNOMED Code(s): 790835933 Plan: Continue inpatient psychiatric hospitalization. Safety precautions. Continue Seroquel to 200 mg at bedtime. Increase Elavil to 100 mg twice a day. Continue outpatient medications including aspirin 325 mg daily, Lipitor 80 mg at bedtime , Coreg 25 mg twice a day, Keppra 6 750 mg at bedtime and 1500 mg a.m., Dilantin 200 mg twice a day and valsartan 160 mg daily. Encourage continued participation in therapeutic groups and activities. Evaluate clinical status response to treatment daily basis. Plan for discharge on 09/12/2017.
[2017-09-11] MEDS: ATORVASTATIN 80 MG TAB PO SCH (21:13)
[2017-09-11] MEDS: QUEtiapine 100 MG TAB PO SCH (21:14)
[2017-09-12] MEDS: PHENYTOIN SODIUM EXTENDED 100 MG CAP PO SCH ×2 (08:38→21:03)
[2017-09-12] MEDS: AMITRIPTYLINE HCL 50 MG TAB PO SCH ×2 (08:38→21:04)
[2017-09-12] MEDS: CARVEDILOL 12.5 MG TAB PO SCH ×2 (08:38→21:03)
[2017-09-12] MEDS: ASPIRIN 325 MG TAB PO SCH (08:38)
[2017-09-12] MEDS: NICOTINE 14MG/24HR PATCH TRANSDERM SCH (08:38)
[2017-09-12] MEDS: VALSARTAN 160 MG TAB PO SCH (08:38)
--- NOTE | 2017-09-12 11:19 | P.PN ---
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 He realized that he was enjoying himself during activities yesterday. In retrospect, he was surprised because he "can't remember" when he enjoyed himself interacting with others. He denied problems with sleep or appetite. He feels less tense and apprehensive. He denied experiencing dry mouth, dry skin, constipation or sedation with the increased dose of Elavil. We discussed discharged and he agreed with the plan to return home tomorrow. He plans to follow-up with [facility] and talked about his past positive experience working with staff at [facility]. Objective - Vital Signs Vital signs: Vital Signs Temp 98.0 F 09/11/17 06:21 Pulse 78 09/12/17 08:38 Resp 20 09/12/17 08:38 BP 123/76 09/12/17 08:38 Pulse Ox 96 09/06/17 18:37 - Psychiatric Psychiatric Comment(s): He presented as a casually dressed and casually groomed middle-aged male who was pleasant on approach. He made eye contact and attended to interview. He did not have and apprehensive facial expression. He should had no abnormality of psychomotor activity. His speech was spontaneous with normal rate, rhythm and volume. His affect was blunted but stable and appropriate. He denied suicidal ideation, wishes or homicidal ideation. He denied feeling hopeless, helpless or worthless. He ruminated about his multiple psychiatric hospitalizations and need for continued mental health services. He did not express ideas reference, paranoid ideation or delusional thoughts. His thinking was concrete but his associations are coherent or logical. He denied hallucinations and did not appear to be responding to internal stimuli. Continue inpatient hospitalization. Safety precautions. Continue Elavil 100 mg by mouth twice a day. Plan for discharge on 09/13/2017. Encouraged continued participation in therapeutic groups and activities. Evaluate clinical status response to treatment on a daily basis. - Labs CBC & Chem 7: 09/07/17 10:03 09/07/17 10:03 Assessment and Plan Assessment: He reported improved mood and decrease in anhedonia. Overall, he appears moderately mentally ill and much improved from admission. (1) Suicidal ideation Current Visit: Yes Status: Resolved Priority: Low Code(s): R45.851 - SUICIDAL IDEATIONS SNOMED Code(s): 9442355 (2) Major depressive disorder, recurrent episode Current Visit: Yes Status: Acute Priority: Medium Code(s): F33.9 - MAJOR DEPRESSIVE DISORDER, RECURRENT, UNSPECIFIED SNOMED Code(s): 349761027 (3) Seizure disorder Current Visit: No Status: Chronic Priority: Low Code(s): G40.909 - EPILEPSY, UNSP, NOT INTRACTABLE, WITHOUT STATUS EPILEPTICUS SNOMED Code(s): 079582546 (4) Personal history of stroke with residual effects Current Visit: Yes Status: Chronic Priority: Medium Code(s): I69.30 - UNSPECIFIED SEQUELAE OF CEREBRAL INFARCTION SNOMED Code(s): 538397868 Plan: Continue inpatient psychiatric hospitalization. Safety precautions. Continue Seroquel to 200 mg at bedtime. Continue Elavil to 100 mg twice a day. Continue outpatient medications including aspirin 325 mg daily, Lipitor 80 mg at bedtime , Coreg 25 mg twice a day, Keppra 6 750 mg at bedtime and 1500 mg a.m., Dilantin 200 mg twice a day and valsartan 160 mg daily. Encourage continued participation in therapeutic groups and activities. Evaluate clinical status response to treatment daily basis. Discharge 09/13/2017.
[2017-09-12] MEDS: LORazepam 1 MG TAB PO PRN ×2 (12:20→21:26)
[2017-09-12] MEDS: ATORVASTATIN 80 MG TAB PO SCH (21:03)
[2017-09-12] MEDS: QUEtiapine 100 MG TAB PO SCH (21:04)
[2017-09-13 06:48] VITALS: BP 100/59; PULSE 65; RESP 18; TEMP 97.8
[2017-09-13] MEDS: NICOTINE 14MG/24HR PATCH TRANSDERM SCH (08:16)
[2017-09-13] MEDS: PHENYTOIN SODIUM EXTENDED 100 MG CAP PO SCH (08:16)
[2017-09-13] MEDS: ASPIRIN 325 MG TAB PO SCH (08:16)
[2017-09-13] MEDS: VALSARTAN 160 MG TAB PO SCH (08:16)
[2017-09-13] MEDS: CARVEDILOL 12.5 MG TAB PO SCH (08:16)
[2017-09-13] MEDS: AMITRIPTYLINE HCL 50 MG TAB PO SCH (08:17)
--- NOTE | 2017-09-13 14:39 | P.DS ---
Providers Date of admission: 09/06/17 17:42 Attending physician: Farhat Craig MD Consults: 09/06/17 17:46 Consult Physician Routine Consulting Provider: Srikanth Ervin Consult Reason/Comments: follow up H & P Do you want consulting provider notified?: Yes Primary care physician: Srikanth Ervin - Discharge Diagnosis(es) (1) Suicidal ideation Status: Resolved Priority: Low (2) Major depressive disorder, recurrent episode Status: Chronic Priority: Medium (3) Seizure disorder Status: Chronic Priority: Low (4) Personal history of stroke with residual effects Status: Chronic Priority: Medium Hospital Course: The patient is a 51-year-old male who has history of CVA, hemiparesis, seizure disorder and recurrent depression. He presented to the psychiatric unit with complaints of worsening depression and suicidal ideation. He is had multiple psychiatric admissions and was discharge one week prior to this admission. He alleged that he was depressed when he was discharge. 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 He complained of increasing sadness, hopelessness, helplessness and worthlessness. He had guilty ruminations about his past failures and "sometimes " thinks that his depression is a punishment for his misdeeds. He did not express delusions of guilt or described accusatory or denunciatory auditory hallucinations. He described other symptoms of depression including subjective tension and irritability. He drank after he left the hospital but denied use of drugs get high, help with sleep or change her mood. We admitted him to the psychiatric unit under care of this headline writer. We provided a biopsychosocial assessment. The leasing sales consultant tso completed the initial physical exam and medical history. The tso diagnosed seizure disorder, headache and hypertension and recommended to continue the his outpatient for same including Keppra 1500 mg a.m. and 750 mg at bedtime, valsartan 106 mg daily , Dilantin 200 mg twice a day, Coreg 25 mg by mouth twice a day, Lipitor 80 mg at bedtime and Ecotrin 2325 mg daily. We prescribed Habitrol 14 mg for nicotine withdrawal. We increase at bedtime dose of Seroquel to 200 mg and prescribed Elavil for the symptoms depression and anxiety. We titrated dose of Elavil to 100 mg by mouth twice a day. He participated in therapeutic groups and activities. He posed no management problem and required no medications for behavioral dyscontrol. He reported that gradual improvement in his mood and a decrease in his anxiety. At time of discharge she presented as a casually dressed and casually groomed 51 -year-old male who was pleasant on approach. He made eye contact and attended to the interview. He had a slight right hemiparesis. He had a blunted but bright facial expression. He was alert and oriented to person, place and time. He showed slight psychomotor retardation but no abnormal movements. His speech was spontaneous with normal rate, rhythm and volume. He had no articulation difficulties. His affect was blunted but stable and appropriate. He was able to smile and expressed positive emotion during interview. He denied suicidal ideation or wishes. He denied homicidal ideation. He denied feeling hopeless, helpless or worthless. He did not express obsessions, ruminations, phobias, ideas reference, paranoid ideation or delusional thoughts. His thinking was abstract and associations were coherent, logical and goal directed. He denied hallucinations and did not appear to be responding to internal stimuli. Patient Condition at Discharge: Stable Plan - Discharge Summary Discharge Rx Participant: No New Discharge Prescriptions: New Amitriptyline HCl [Elavil] 100 mg PO BID #60 tab Nicotine 14Mg/24Hr Patch [Habitrol] 1 patch TRANSDERM DAILY #7 patch QUEtiapine [SEROquel] 200 mg PO HS #60 tab Continue Atorvastatin [Lipitor] 80 mg PO HS #30 tab Carvedilol [Coreg] 25 mg PO BID Phenytoin Sodium Extended [Dilantin] 200 mg PO BID Aspirin EC [Ecotrin] 325 mg PO DAILY levETIRAcetam [Keppra] 750 mg PO HS levETIRAcetam [Keppra] 1,500 mg PO QAM Acetaminophen Tab [Tylenol] 650 mg PO Q4HR PRN tab PRN Reason: Pain/Discomfort Valsartan [Diovan] 160 mg PO DAILY tab Discontinued Mag Hydrox/Al Hydrox/Simeth [Maalox] 30 ml PO Q4HR PRN cup PRN Reason: GI Upset QUEtiapine [SEROquel] 100 mg PO HS tab Butalb/APAP/Caff 50-325-40Mg [Fioricet 50-325-40] 1 tab PO Q4HR PRN PRN Reason: Headache Discharge Medication List Atorvastatin [Lipitor] 80 mg PO HS #30 tab 07/18/16 [Rx] Aspirin EC [Ecotrin] 325 mg PO DAILY 04/22/17 [History] Carvedilol [Coreg] 25 mg PO BID 04/22/17 [History] Phenytoin Sodium Extended [Dilantin] 200 mg PO BID 04/22/17 [History] levETIRAcetam [Keppra] 1,500 mg PO QAM 08/24/17 [History] levETIRAcetam [Keppra] 750 mg PO HS 08/24/17 [History] Acetaminophen Tab [Tylenol] 650 mg PO Q4HR PRN tab 08/29/17 [Rx] Valsartan [Diovan] 160 mg PO DAILY tab 08/29/17 [Rx] Amitriptyline HCl [Elavil] 100 mg PO BID #60 tab 09/13/17 [Rx] Nicotine 14Mg/24Hr Patch [Habitrol] 1 patch TRANSDERM DAILY #7 patch 09/13/17 [ Rx] QUEtiapine [SEROquel] 200 mg PO HS #60 tab 09/13/17 [Rx] Follow up Appointment(s)/Referral(s): [facility] [Outside] - 09/13/17 1:00 pm (today at 1pm at [facility]. ) Srikanth Ervin MD [Primary Care Provider] - 1-2 days Patient Instructions/Handouts: How to Stop Smoking (DC), Depression (DC), Suicide Prevention for Adults (DC) Activity/Diet/Wound Care/Special Instructions: Take all medications as ordered and keep your follow up appointment as scheduled. Do not drink alcohol or use street drugs. Call the Crisis Line if needed . Discharge Disposition: HOME SELF-CARE
== END 2017-09-13 12:20 | disposition home or self-care (01) | DRG 885 ==
LOC: EC 14:35 → 3MHU 17:42
PROVIDERS: ADMIT Psychiatry & Neurology Psychiatry; ATTEND Psychiatry & Neurology Psychiatry
DX: F33.9 Major depressive disorder, recurrent, unspecified (principal); R45.851 Suicidal ideations; G40.919 Epilepsy, unspecified, intractable, without status epilepticus; I69.151 Hemiplegia and hemiparesis following nontraumatic intracerebral hemorrhage affecting right dominant side; F17.203 Nicotine dependence unspecified, with withdrawal; I10 Essential (primary) hypertension; K21.9 Gastro-esophageal reflux disease without esophagitis; F41.0 Panic disorder [episodic paroxysmal anxiety]; F41.9 Anxiety disorder, unspecified; I69.120 Aphasia following nontraumatic intracerebral hemorrhage; I69.191 Dysphagia following nontraumatic intracerebral hemorrhage; R13.10 Dysphagia, unspecified; I69.198 Other sequelae of nontraumatic intracerebral hemorrhage; F10.10 Alcohol abuse, uncomplicated; F11.21 Opioid dependence, in remission; R29.818 Other symptoms and signs involving the nervous system; G43.909 Migraine, unspecified, not intractable, without status migrainosus; Z56.0 Unemployment, unspecified; Z98.42 Cataract extraction status, left eye; Z79.899 Other long term (current) drug therapy; Z79.82 Long term (current) use of aspirin; Z80.42 Family history of malignant neoplasm of prostate; Z98.41 Cataract extraction status, right eye; Z73.6 Limitation of activities due to disability; Z86.010 Personal history of colon polyps; Z81.1 Family history of alcohol abuse and dependence; Z82.49 Family history of ischemic heart disease and other diseases of the circulatory system; Z82.61 Family history of arthritis; Z80.9 Family history of malignant neoplasm, unspecified; Z83.49 Family history of other endocrine, nutritional and metabolic diseases; Z87.828 Personal history of other (healed) physical injury and trauma; Z87.09 Personal history of other diseases of the respiratory system; Z71.41 Alcohol abuse counseling and surveillance of alcoholic; Z71.51 Drug abuse counseling and surveillance of drug abuser
CPT/HCPCS: 80053; 80061; 80185; 80306; 81001; 82075; 83036; 84443; 85025; 99285

== ENCOUNTER 2017-10-17 13:11 | Emergency (ER) | payer OTHER ==
[2017-10-17 13:20] VITALS: PULSE 77; TEMP 99
[2017-10-17] MEDS ORDERED: LORazepam 2 MG/ML INJ IV STA (13:42)
[2017-10-17 13:51] LABS: Basophils # (A) 0.1 k/uL (0-0.2); Basophils % (A) 1 %; Eosinophils # (A) 0.2 k/uL (0-0.7); Eosinophils % (A) 2 %; HCT 46.5 % (39.0-53.0); HGB 15.7 gm/dL (13.0-17.5); Lymphocytes # (A) 2.3 k/uL (1.0-4.8); Lymphocytes % (A) 25 %; MCH 32.4 pg (25.0-35.0); MCHC 33.7 g/dL (31.0-37.0); MCV 96.1 fL (80.0-100.0); Mean Platelet Volume 6.9; Monocytes # (A) 0.6 k/uL (0-1.0); Monocytes % (A) 6 %; Neutrophils % (A) 65 %; Platelet Count 222 k/uL (150-450); RBC 4.84 m/uL (4.30-5.90); WBC 9.2 k/uL (3.8-10.6)
--- NOTE | 2017-10-17 13:51 | ED ---
General Adult HPI - General Chief complaint: Seizure Stated complaint: Seizure Time Seen by Provider: 10/17/17 13:27 Source: patient, EMS, RN notes reviewed Mode of arrival: EMS Limitations: no limitations - History of Present Illness Initial comments: Patient is a 52-year-old male presenting to the emergency room today with a chief complaint of a seizure. Patient does admit to seizure history. States he has been taking his Keppra and Dilantin. States he was driving the car and felt a seizure coming on. He was in the passenger seat. Patient states he then had a seizure. At this time started to feel normal. EMS was called by the tank truck driver and brought here to the hospital. Patient states that when he has his seizures seem to affect his right side. Her having seizures after stroke 2 years ago. Patient states this is normal for him with a seizure activity. Patient states she's been no changes in medications over the last 6 months. Complaints or symptoms. Patient denies any recent fever, chills, shortness of breath, chest pain, back pain, abdominal pain, nausea or vomiting, headaches or visual changes, or any other complaints. - Related Data Home Medications Medication Instructions Recorded Confirmed Aspirin EC [Ecotrin] 325 mg PO DAILY 04/22/17 10/17/17 Phenytoin Sodium Extended 200 mg PO BID 04/22/17 10/17/17 [Dilantin] levETIRAcetam [Keppra] 1,500 mg PO QAM 08/24/17 10/17/17 levETIRAcetam [Keppra] 750 mg PO HS 08/24/17 10/17/17 Atorvastatin Calcium [Lipitor] 80 mg PO HS 10/17/17 10/17/17 Carvedilol 25 mg PO BID 10/17/17 10/17/17 Previous Rx's Medication Instructions Recorded Amitriptyline HCl [Elavil] 100 mg PO BID #60 tab 09/13/17 QUEtiapine [SEROquel] 200 mg PO HS #60 tab 09/13/17 Allergies Allergy/AdvReac Type Severity Reaction Status Date / Time No Known Allergies Allergy Verified 10/17/17 13:57 Review of Systems ROS Statement: Those systems with pertinent positive or pertinent negative responses have been documented in the HPI. ROS Other: All systems not noted in ROS Statement are negative. Past Medical History Past Medical History: Hyperlipidemia, Seizure Disorder Additional Past Medical History / Comment(s): L intraparenchymal hemorrhage L lung pneumothorax , Migraine Headaches. History of Any Multi-Drug Resistant Organisms: None Reported Past Surgical History: No Surgical Hx Reported Additional Past Surgical History / Comment(s): COLONOSCOPY POLYPS REMOVED-NEG, bilateral cataract removal, R testicular surgery as a little boy. Past Anesthesia/Blood Transfusion Reactions: No Reported Reaction Additional Past Anesthesia/Blood Transfusion Reaction / Comment(s): Pt has never recieved blood. Past Psychological History: Anxiety, Bipolar, Depression, Panic Disorder Smoking Status: Current every day smoker Past Alcohol Use History: None Reported Past Drug Use History: None Reported - Past Family History Father Family Medical History: Cancer, Hyperlipidemia, Hypertension, Prostate Disorder Additional Family Medical History / Comment(s): PROSTATE CA Mother Family Medical History: Osteoarthritis (OA) Additional Family Medical History / Comment(s): MOM IS 71 General Exam - General Exam Comments Initial Comments: General: The patient is awake and alert, in no distress, and does not appear acutely ill. Eye: Pupils are equal, round and reactive to light, extra-ocular movements are intact. No nystagmus. There is normal conjunctiva bilaterally. No signs of icterus. Ears, nose, mouth and throat: There are moist mucous membranes and no oral lesions. Neck: The neck is supple, there is no tenderness or JVD. Cardiovascular: There is a regular rate and rhythm. No murmur, rub or gallop is appreciated. Respiratory: Lungs are clear to auscultation, respirations are non-labored, breath sounds are equal. No wheezes, stridor, rales, or rhonchi. Gastrointestinal: Soft, non-distended, non-tender abdomen without masses or organomegaly noted. There is no rebound or guarding present. No CVA tenderness. Bowel sounds are unremarkable. Musculoskeletal: Normal ROM, no tenderness. Strength 5/5. Sensation intact. Pulses equal bilaterally 2+. Neurological: A&O x 3. CN II-XII intact, There are no obvious motor or sensory deficits. Coordination appears grossly intact. Speech is normal. Skin: Skin is warm and dry and no rashes or lesions are noted. Psychiatric: Cooperative, appropriate mood & affect, normal judgment. Limitations: no limitations Course Vital Signs 10/17/17 10/17/17 13:15 14:07 Temperature 99 F Pulse Rate 77 77 Respiratory 18 16 Rate Blood Pressure 129/82 111/76 O2 Sat by Pulse 92 L 95 Oximetry Medical Decision Making - Medical Decision Making Patient lives been reviewed and are unremarkable. Chest x-rays negative. Both Keppra and Dilantin levels are pending. Patient will be discharged home as he is feeling well at this time will be discharged home - Lab Data Result diagrams: 10/17/17 13:25 10/17/17 13:25 Lab Results 10/17/17 10/17/17 10/17/17 Range/Units 13:25 13:25 14:39 WBC 9.2 (3.8-10.6) k/uL RBC 4.84 (4.30-5.90) m/uL Hgb 15.7 (13.0-17.5) gm/dL Hct 46.5 (39.0-53.0) % MCV 96.1 (80.0-100.0) fL MCH 32.4 (25.0-35.0) pg MCHC 33.7 (31.0-37.0) g/dL RDW 13.0 (11.5-15.5) % Plt Count 222 (150-450) k/uL Neutrophils % 65 % Lymphocytes % 25 % Monocytes % 6 % Eosinophils % 2 % Basophils % 1 % Neutrophils # 6.0 (1.3-7.7) k/uL Lymphocytes # 2.3 (1.0-4.8) k/uL Monocytes # 0.6 (0-1.0) k/uL Eosinophils # 0.2 (0-0.7) k/uL Basophils # 0.1 (0-0.2) k/uL Sodium 136 L (137-145) mmol/L Potassium 4.0 (3.5-5.1) mmol/L Chloride 103 (98-107) mmol/L Carbon Dioxide 25 (22-30) mmol/L Anion Gap 8 mmol/L BUN 21 H (9-20) mg/dL Creatinine 1.00 (0.66-1.25) mg/dL Est GFR (CKD-EPI)AfAm >90 (>60 ml/min/1.73 sqM) Est GFR (CKD-EPI)NonAf 85 (>60 ml/min/1.73 sqM) Glucose 82 (74-99) mg/dL Calcium 9.1 (8.4-10.2) mg/dL Total Bilirubin 0.4 (0.2-1.3) mg/dL AST 17 (17-59) U/L ALT 32 (21-72) U/L Alkaline Phosphatase 72 (38-126) U/L Total Protein 6.6 (6.3-8.2) g/dL Albumin 4.2 (3.5-5.0) g/dL Urine Color Light Yellow Urine Appearance Clear (Clear) Urine pH 6.0 (5.0-8.0) Ur Specific Calvin 1.006 (1.001-1.035) Urine Protein Negative (Negative) Urine Glucose (UA) Negative (Negative) Urine Ketones Negative (Negative) Urine Blood Trace H (Negative) Urine Nitrite Negative (Negative) Urine Bilirubin Negative (Negative) Urine Urobilinogen <2.0 (<2.0) mg/dL Ur Leukocyte Esterase Negative (Negative) Urine RBC 1 (0-5) /hpf Urine Bacteria Rare H (None) /hpf Urine Mucus Rare H (None) /hpf Disposition Clinical Impression: Seizure Disposition: HOME SELF-CARE Condition: Good Instructions: Recurrent Seizures in Adults (ED) Additional Instructions: Please follow-up with neurologist/family doctor in the next 2 days of symptoms have not improved. Please return to emergency room if the symptoms increase or worsen or for any other concerns. Is patient prescribed a controlled substance at d/c from ED?: No Referrals: Srikanth Ervin MD [Primary Care Provider] - 1-2 days Time of Disposition: 15:00
[2017-10-17 14:01] LABS: ALT 32 U/L (21-72); AST 17 U/L (17-59); Albumin 4.2 g/dL (3.5-5.0); Alkaline Phosphatase 72 U/L (38-126); Anion Gap 8 mmol/L; Blood Urea Nitrogen 21 mg/dL (9-20); Calcium 9.1 mg/dL (8.4-10.2); Carbon Dioxide 25 mmol/L (22-30); Chloride 103 mmol/L (98-107); Glucose 82 mg/dL (74-99); Sodium 136 mmol/L (137-145); Total Bilirubin 0.4 mg/dL (0.2-1.3); Total Protein 6.6 g/dL (6.3-8.2)
--- NOTE | 2017-10-17 14:06 | XR ---
EXAMINATION TYPE: XR chest 2V DATE OF EXAM: 10/17/2017 COMPARISON: 01/19/2016, 07/16/2016 TECHNIQUE: PA and lateral views submitted. HISTORY: Seizure FINDINGS: The lungs are clear and there is no pneumothorax, pleural effusion, or focal pneumonia. IMPRESSION: 1. No acute process.
[2017-10-17 14:08] VITALS: RESP 16
[2017-10-17 14:50] LABS: Appearance,Urine Clear (Clear); Bacteria,Urine Rare /hpf; Bilirubin,Urine Negative (Negative); Blood,Urine Trace (Negative); Color,Urine Light Yellow; Glucose,Urine (UA) Negative (Negative); Ketones,Urine Negative (Negative); Leukocyte Esterase,Urine Negative (Negative); Mucus,Urine Rare /hpf; Nitrite,Urine Negative (Negative); Protein,Urine Negative (Negative); RBC,Urine 1 /hpf (0-5); Specific Gravity,Urine 1.006 (1.001-1.035); Urobilinogen,Urine <2.0 mg/dL (<2.0)
[2017-10-17 15:29] VITALS: BP 107/60
[2017-10-18 04:39] LABS: Phenytoin (Dilantin) Free <0.8 ug/mL (0.8-2.0)
[2017-10-19 11:06] LABS: Levetiracetam (Keppra) 24.9 ug/mL (3.0-60.0)
== END 2017-10-17 15:28 | disposition home or self-care (01) ==
LOC: EC 13:11
DX: R56.9 Unspecified convulsions (principal); F41.9 Anxiety disorder, unspecified; E78.5 Hyperlipidemia, unspecified; F17.200 Nicotine dependence, unspecified, uncomplicated; Z79.82 Long term (current) use of aspirin; Z79.899 Other long term (current) drug therapy
CPT/HCPCS: 36415; 93005; 80186; 80053; 80177; 85025; 81001; 71046; 99285; 96374; J2060

== ENCOUNTER 2017-12-10 15:41 | Inpatient (IN) | payer MEDICAID, OTHER ==
--- NOTE | 2017-12-10 16:25 | ED ---
Psych HPI - General Chief Complaint: Psychiatric Symptoms Stated Complaint: mental health Time Seen by Provider: 12/10/17 15:52 Source: patient, RN notes reviewed Mode of arrival: ambulatory Limitations: no limitations - History of Present Illness Initial Comments: This a 52-year-old male presents emergency Department with chief complaint of depression, suicidal ideation. Patient states that he has been taken his medications as directed but has been having worsening depression. He states that he has no energy states that he is very down about his current life situation and that he has not been taking care of himself or his animals. Patient states that he has had some thoughts of hurting himself. Patient is here with family members with similar concerns. Patient denies any alcohol abuse. He did admit that he bought some Xanax recently because he states that he wanted to sleep or had thoughts of hurting herself with the medication. Patient has no physical complaints. - Related Data Home Medications Medication Instructions Recorded Confirmed Phenytoin Sodium Extended 200 mg PO BID 04/22/17 12/10/17 [Dilantin] levETIRAcetam [Keppra] 1,500 mg PO HS 08/24/17 12/10/17 levETIRAcetam [Keppra] 750 mg PO QAM 08/24/17 12/10/17 Atorvastatin Calcium [Lipitor] 80 mg PO HS 10/17/17 12/10/17 Carvedilol 25 mg PO BID 10/17/17 12/10/17 Amitriptyline HCl [Elavil] 150 mg PO BID 12/10/17 12/10/17 Aspirin [Adult Low Dose Aspirin EC] 81 mg PO DAILY 12/10/17 12/10/17 Escitalopram Oxalate [Lexapro] 20 mg PO DAILY 12/10/17 12/10/17 Valsartan/Hydrochlorothiazide 1 tab PO DAILY 12/10/17 12/10/17 [Valsartan-Hctz 160-25 mg Tab] amLODIPine [Norvasc] 10 mg PO DAILY 12/10/17 12/10/17 hydrOXYzine PAMOATE 50 mg PO BID 12/10/17 12/10/17 Previous Rx's Medication Instructions Recorded QUEtiapine [SEROquel] 200 mg PO HS #60 tab 09/13/17 Allergies Allergy/AdvReac Type Severity Reaction Status Date / Time No Known Allergies Allergy Verified 12/10/17 20:25 Review of Systems ROS Statement: Those systems with pertinent positive or pertinent negative responses have been documented in the HPI. ROS Other: All systems not noted in ROS Statement are negative. Past Medical History Past Medical History: Hyperlipidemia, Seizure Disorder Additional Past Medical History / Comment(s): L intraparenchymal hemorrhage L lung pneumothorax , Migraine Headaches. History of Any Multi-Drug Resistant Organisms: None Reported Past Surgical History: No Surgical Hx Reported Additional Past Surgical History / Comment(s): COLONOSCOPY POLYPS REMOVED-NEG, bilateral cataract removal, R testicular surgery as a little boy. Past Anesthesia/Blood Transfusion Reactions: No Reported Reaction Additional Past Anesthesia/Blood Transfusion Reaction / Comment(s): Pt has never recieved blood. Past Psychological History: Anxiety, Bipolar, Depression, Panic Disorder Smoking Status: Current every day smoker Past Alcohol Use History: None Reported Past Drug Use History: None Reported - Past Family History Father Family Medical History: Cancer, Hyperlipidemia, Hypertension, Prostate Disorder Additional Family Medical History / Comment(s): PROSTATE CA Mother Family Medical History: Osteoarthritis (OA) Additional Family Medical History / Comment(s): MOM IS 71 General Exam Limitations: no limitations General appearance: alert, in no apparent distress ENT exam: Present: normal exam, normal oropharynx, mucous membranes moist Neck exam: Present: normal inspection, full ROM. Absent: tenderness, meningismus, lymphadenopathy Respiratory exam: Present: normal lung sounds bilaterally. Absent: respiratory distress, wheezes, rales, rhonchi, stridor Cardiovascular Exam: Present: regular rate, normal rhythm, normal heart sounds. Absent: systolic murmur, diastolic murmur, rubs, gallop, clicks Neurological exam: Present: alert, oriented X3, CN II-XII intact Psychiatric exam: Present: depressed, flat affect Skin exam: Present: warm, dry, intact, normal color. Absent: rash Course Vital Signs 12/10/17 15:48 Temperature 98.2 F Pulse Rate 87 Respiratory 20 Rate Blood Pressure 104/76 O2 Sat by Pulse 98 Oximetry Medical Decision Making - Lab Data Lab Results 12/10/17 Range/Units 17:22 Urine Opiates Screen Not Detected (NotDetected) Ur Oxycodone Screen Not Detected (NotDetected) Urine Methadone Screen Not Detected (NotDetected) Ur Propoxyphene Screen Not Detected (NotDetected) Ur Barbiturates Screen Detected H (NotDetected) U Tricyclic Antidepress Detected H (NotDetected) Ur Phencyclidine Scrn Not Detected (NotDetected) Ur Amphetamines Screen Not Detected (NotDetected) U Methamphetamines Scrn Not Detected (NotDetected) U Benzodiazepines Scrn Detected H (NotDetected) Urine Cocaine Screen Not Detected (NotDetected) U Marijuana (THC) Screen Not Detected (NotDetected) Disposition Clinical Impression: Bipolar disorder, Depression Disposition: ADMITTED IP TO THIS HOSP Time of Disposition: 18:20
[2017-12-10 17:36] LABS: Amphetamine Screen,Urine Not Detected (NotDetected); Barbiturate Screen,Urine Detected (NotDetected); Benzodiazepines Screen,Urine Detected (NotDetected); Cocaine Screen,Urine Not Detected (NotDetected); Methadone Screen, Urine Not Detected (NotDetected); Opiate Screen,Urine Not Detected (NotDetected); Oxycodone Screen, Urine Not Detected (NotDetected); Phencyclidine Screen,Urine Not Detected (NotDetected); Tricyclic Antidepressant,Urine Detected (NotDetected); Urn Cannabinoid Scrn Not Detected (NotDetected)
[2017-12-10 19:05] VITALS: BMI 27.2
[2017-12-10] MEDS ORDERED: MAGNESIUM HYDROXIDE 2,400 MG/10 ML CUP PO PRN (19:53)
[2017-12-10] MEDS ORDERED: AMITRIPTYLINE HCL 50 MG TAB PO SCH (21:00)
[2017-12-10] MEDS: CARVEDILOL 12.5 MG TAB PO SCH (22:37)
[2017-12-10] MEDS: hydrOXYzine HCL 25 MG TAB PO SCH (22:37)
[2017-12-10] MEDS: ATORVASTATIN 80 MG TAB PO SCH (22:37)
[2017-12-10] MEDS: PHENYTOIN SODIUM EXTENDED 100 MG CAP PO SCH (22:38)
[2017-12-11] MEDS: NICOTINE 21MG/24HR PATCH TRANSDERM SCH (08:50)
[2017-12-11] MEDS: ASPIRIN 81 MG PO SCH (08:50)
[2017-12-11] MEDS: amLODIPine 10 MG TAB PO SCH (08:51)
[2017-12-11] MEDS: PHENYTOIN SODIUM EXTENDED 100 MG CAP PO SCH ×2 (08:51→21:25)
[2017-12-11] MEDS: CARVEDILOL 12.5 MG TAB PO SCH ×2 (08:51→17:21)
[2017-12-11] MEDS: hydrOXYzine HCL 25 MG TAB PO SCH (08:51)
[2017-12-11] MEDS: HYDROCHLOROTHIAZIDE 25 MG TAB PO SCH (08:53)
[2017-12-11] MEDS ORDERED: ESCITALOPRAM 20 MG TAB PO SCH (09:00)
[2017-12-11] MEDS: VALSARTAN 160 MG TAB PO SCH (09:28)
[2017-12-11 09:54] LABS: Basophils # (A) 0.1 k/uL (0-0.2); Basophils % (A) 1 %; Eosinophils # (A) 0.2 k/uL (0-0.7); Eosinophils % (A) 2 %; HCT 48.8 % (39.0-53.0); HGB 16.2 gm/dL (13.0-17.5); Lymphocytes # (A) 1.7 k/uL (1.0-4.8); Lymphocytes % (A) 22 %; MCH 32.2 pg (25.0-35.0); MCHC 33.1 g/dL (31.0-37.0); MCV 97.2 fL (80.0-100.0); Monocytes # (A) 0.5 k/uL (0-1.0); Monocytes % (A) 6 %; Neutrophils # (A) 5.3 k/uL (1.3-7.7); Neutrophils % (A) 68 %; Platelet Count 280 k/uL (150-450); RBC 5.02 m/uL (4.30-5.90); RDW 12.1 % (11.5-15.5); WBC 7.9 k/uL (3.8-10.6)
[2017-12-11 10:09] LABS: Albumin 4.3 g/dL (3.5-5.0); Calcium 9.2 mg/dL (8.4-10.2); Potassium 4.3 mmol/L (3.5-5.1); Total Bilirubin 0.5 mg/dL (0.2-1.3); Total Protein 7.1 g/dL (6.3-8.2)
--- NOTE | 2017-12-11 10:33 | P.HP ---
Psychiatric H&P - . H&P Date: 12/11/17 History & Physical: Allergies Allergy/AdvReac Type Severity Reaction Status Date / Time No Known Allergies Allergy Verified 12/10/17 20:25 Vital Signs Temp 97.9 F 12/11/17 06:39 Pulse 74 12/11/17 08:49 Resp 18 12/11/17 08:49 BP 123/80 12/11/17 08:49 Pulse Ox 97 12/10/17 18:58 Intake & Output 12/10/17 12/11/17 12/11/17 18:59 06:59 18:59 Weight 78.953 kg Laboratory Last Values WBC 7.9 k/uL (3.8-10.6) 12/11/17 09:09 RBC 5.02 m/uL (4.30-5.90) 12/11/17 09:09 Hgb 16.2 gm/dL (13.0-17.5) 12/11/17 09:09 Hct 48.8 % (39.0-53.0) 12/11/17 09:09 MCV 97.2 fL (80.0-100.0) 12/11/17 09:09 MCH 32.2 pg (25.0-35.0) 12/11/17 09:09 MCHC 33.1 g/dL (31.0-37.0) 12/11/17 09:09 RDW 12.1 % (11.5-15.5) 12/11/17 09:09 Plt Count 280 k/uL (150-450) 12/11/17 09:09 Neutrophils % 68 % 12/11/17 09:09 Lymphocytes % 22 % 12/11/17 09:09 Monocytes % 6 % 12/11/17 09:09 Eosinophils % 2 % 12/11/17 09:09 Basophils % 1 % 12/11/17 09:09 Neutrophils # 5.3 k/uL (1.3-7.7) 12/11/17 09:09 Lymphocytes # 1.7 k/uL (1.0-4.8) 12/11/17 09:09 Monocytes # 0.5 k/uL (0-1.0) 12/11/17 09:09 Eosinophils # 0.2 k/uL (0-0.7) 12/11/17 09:09 Basophils # 0.1 k/uL (0-0.2) 12/11/17 09:09 Urine Opiates Screen Not Detected (NotDetected) 12/10/17 17:22 Ur Oxycodone Screen Not Detected (NotDetected) 12/10/17 17:22 Urine Methadone Screen Not Detected (NotDetected) 12/10/17 17:22 Ur Propoxyphene Screen Not Detected (NotDetected) 12/10/17 17:22 Ur Barbiturates Screen Detected (NotDetected) H 12/10/17 17:22 U Tricyclic Antidepress Detected (NotDetected) H 12/10/17 17:22 Ur Phencyclidine Scrn Not Detected (NotDetected) 12/10/17 17:22 Ur Amphetamines Screen Not Detected (NotDetected) 12/10/17 17:22 U Methamphetamines Scrn Not Detected (NotDetected) 12/10/17 17:22 U Benzodiazepines Scrn Detected (NotDetected) H 12/10/17 17:22 Urine Cocaine Screen Not Detected (NotDetected) 12/10/17 17:22 U Marijuana (THC) Screen Not Detected (NotDetected) 12/10/17 17:22 Assessment and Plan (1) Bipolar disorder Current Visit: Yes Status: Acute Priority: High Code(s): F31.9 - BIPOLAR DISORDER, UNSPECIFIED SNOMED Code(s): 30930977 (2) History of stroke Current Visit: No Status: Acute Priority: Low Code(s): Z86.73 - PRSNL HX OF TIA (TIA), AND CEREB INFRC W/O RESID DEFICITS SNOMED Code(s): 864105573 (3) Hypertension Current Visit: No Status: Acute Priority: Low Code(s): I10 - ESSENTIAL ( PRIMARY) HYPERTENSION SNOMED Code(s): 78577361 (4) Seizure disorder Current Visit: No Status: Chronic Priority: Low Code(s): G40.909 - EPILEPSY, UNSP, NOT INTRACTABLE, WITHOUT STATUS EPILEPTICUS SNOMED Code(s): 700392325 (5) Suicidal ideation Current Visit: Yes Status: Resolved Priority: Medium Code(s): R45.851 - SUICIDAL IDEATIONS SNOMED Code(s): 4518189 Plan: Chief Complaint: [his a 52-year-old male presents emergency Department with chief complaint of depression, suicidal ideation. Patient states that he has been taken his medications as directed but has been having worsening depression. He states that he has no energy states that he is very down about his current life situation and that he has not been taking care of himself or his animals. Patient states that he has had some thoughts of hurting himself. Patient is here with family members with similar concerns. Patient denies any alcohol abuse. He did admit that he bought some Xanax recently because he states that he wanted to sleep or had thoughts of hurting herself with the medication. Patient has no physical complaints. The patient is a 51-year-old male who has history of CVA, hemiparesis, seizure disorder and recurrent depression. He presented to the psychiatric unit with complaints of worsening depression and suicidal ideation. 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 History of Any Multi-Drug Resistant Organisms: None Reported Past Surgical History: No Surgical Hx Reported Additional Past Surgical History / Comment(s): COLONOSCOPY POLYPS REMOVED-NEG, bilateral cataract removal, R testicular surgery as a little boy. Past Anesthesia/Blood Transfusion Reactions: No Reported Reaction Additional Past Anesthesia/Blood Transfusion Reaction / Comment(s): Pt has never recieved blood. Past Psychological History: Anxiety, Bipolar, Depression, Panic Disorder Smoking Status: Current every day smoker Past Alcohol Use History: None Reported Past Drug Use History: None Reported recent uses Xanax Allergies: [Is known known drug ALLERGIES] Social History: [Lives alone] Family History: [On contributory] Musculoskeletal Examination - Abnormal/Involuntary Movements: [ tremors] Strength: [greater than antigravity (greater than/equal to 3/5) in all extremities, right-sided weakness] Muscle Tone: [no impairment] Gait: [grossly normal] Station: [grossly normal] Mental Status Examination - General Appearance: [disheveled, casual, appears older than stated age] Speech/Language: [ slow, slurred, mumbling, hesitant] Attitude/Behavior: [cooperative, guarded, withdrawn] Mood: [depressed, anxious, fearful, hopelessness] Affect: [ flat, incongruent, blunted constricted] Orientation: [time, person, place situation] Thought Content: [wnl, delusions] Risk Factors: [suicidal (ideations, plan)] Perception: [wnl,] Thought Processes: [goal-oriented, concrete] Concentration/Attention Span: [impaired] [Per observation and interview with the patient] Recent Memory: [wnl, impaired] [1 out of 3 in 3 minutes] Remote Memory: [wnl, impaired] [past events, as related history] Intelligence: [below average] [based on history, based on vocabulary, syntax, grammar, and content] Judgement: [poor] [per patient's behavior/history of present illness] Insight: [fair] [understanding severity of illness/history of present illness] Admitting Diagnosis: [Bipolar affective disorder] Patient Strengths - Personal Skills: [Motivated related to get treatment] Achievements: [Lives in apartment and has so security disability] Steady employment/financial stability: [Social security disability and owns a pack] Housing stability: [Owns apartment] Able to vocalize needs: [Able to verbalize why he needs help] Motivation, determination, readiness for change: [He's tried medications since October and they have not gotten better and he wants help] Setting and pursuing goals, hopes, dreams, aspirations: [Goals are to feel better] Resources - social, interpersonal, monetary: [Stable on money and housing] Interpersonal relationships and supports available - friends: [Minute support] Patient Limitations: [medication, pathological/unsupported environment, no interests, intellectual impairment, complicated medical illness] Initial Plan of Care: [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 unable to explain and has Vistaril and reevaluate on 12/12/2017] Estimated Length of Stay: [7 days] Initial Discharge Plan: [[facility], referred to therapist] Prognosis: [guarded] Justification for Inpatient Hospitalization - [anxiety, depression resulting in significant loss of functioning.] [Dangerous to self [Emotional or behavioral conditions and complications requiring 24 hour medical and nursing care.] [Need for special drug therapy] [Failure of social functioning.] [Inability to meet basic life and health needs.] [Biomedical conditions and complications requiring 24 hour medical and nursing care.] [High relapse potential due to inability to control substance use.] [Failure of treatment at a lower level of care.] Continue Atorvastatin [Lipitor] 80 mg PO HS Carvedilol [Coreg] 25 mg PO BID Phenytoin Sodium Extended [Dilantin] 200 mg PO BID Aspirin EC [Ecotrin] 325 mg PO DAILY levETIRAcetam [Keppra] 750 mg PO HS levETIRAcetam [Keppra] 1,500 mg PO QAM Acetaminophen Tab [Tylenol] 650 mg PO Q4HR PRN tab PRN Reason: Pain/Discomfort Valsartan [Diovan] 160 mg PO DAILY tab Plan is to stop his amitriptyline and Lexapro and his anti-anxiety medicine that was prescribed by [facility] and we'll reevaluate his psychiatric symptoms on Time with Patient: Greater than 30
--- NOTE | 2017-12-11 10:57 | P.CONS ---
History of Present Illness - Reason for Consult Consult date: 12/11/17 medical management Requesting physician: Subhash Collazo - Chief Complaint depression - History of Present Illness 52-year-old male who presented to the emergency room due to depression and thoughts of self-harm. The patient has had multiple admissions to the mental health unit due to suicidal ideations. The patient reports that his depression continues to get worse. 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 Patient states this has had a toll on his mental health and contribute due to his suicidal ideations. The patient denies shortness of breath or cough. Denies chest pain or pressure. Denies nausea or vomiting. Denies lightheadedness or dizziness. Denies difficulty voiding or change in bowel habits. Denies headache. Review of Systems Those systems with pertinent positive or pertinent negative responses have been documented in the HPI Past Medical History Past Medical History: Hyperlipidemia, Seizure Disorder Additional Past Medical History / Comment(s): L intraparenchymal hemorrhage L lung pneumothorax , Migraine Headaches. History of Any Multi-Drug Resistant Organisms: None Reported Past Surgical History: No Surgical Hx Reported Additional Past Surgical History / Comment(s): COLONOSCOPY POLYPS REMOVED-NEG, bilateral cataract removal, R testicular surgery as a little boy. Past Anesthesia/Blood Transfusion Reactions: No Reported Reaction Additional Past Anesthesia/Blood Transfusion Reaction / Comm: Pt has never recieved blood. 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 PT resides with a friend. He is independent with his ADLs. He uses a walker some of the time. He is suppose to be starting home PT soon-he was recently discharged from rehab. Pt has hx of ETOH abuse-he quit drinking 3 yrs ago with one slip last 2013. He has hx of polysubstance abuse per old record but pt states he has not used meds not prescribed to him. He smoked marijuana he states as a young person. He has had suicidal idealations in the past- but not recently. Smoking Status: Current every day smoker Past Alcohol Use History: None Reported Additional Past Alcohol Use History / Comment(s): pt states he has been smoking for 20 years. patient states he smokes one pack per day. Past Drug Use History: None Reported Additional Drug Use History / Comment(s): Pt has hx of polysubstance abuse per PMR-Adderall/xanax/flexeril, however pt currently denies this. - Past Family History Father Family Medical History: Cancer, Hyperlipidemia, Hypertension, Prostate Disorder Additional Family Medical History / Comment(s): PROSTATE CA Mother Family Medical History: Osteoarthritis (OA) Additional Family Medical History / Comment(s): MOM IS 71 Medications and Allergies Home Medications Medication Instructions Recorded Confirmed Type Phenytoin Sodium Extended 200 mg PO BID 04/22/17 12/10/17 History [Dilantin] levETIRAcetam [Keppra] 1,500 mg PO HS 08/24/17 12/10/17 History levETIRAcetam [Keppra] 750 mg PO QAM 08/24/17 12/10/17 History QUEtiapine [SEROquel] 200 mg PO HS #60 tab 09/13/17 12/10/17 Rx Atorvastatin Calcium [Lipitor] 80 mg PO HS 10/17/17 12/10/17 History Carvedilol 25 mg PO BID 10/17/17 12/10/17 History Amitriptyline HCl [Elavil] 150 mg PO BID 12/10/17 12/10/17 History Aspirin [Adult Low Dose Aspirin EC] 81 mg PO DAILY 12/10/17 12/10/17 History Escitalopram Oxalate [Lexapro] 20 mg PO DAILY 12/10/17 12/10/17 History Valsartan/Hydrochlorothiazide 1 tab PO DAILY 12/10/17 12/10/17 History [Valsartan-Hctz 160-25 mg Tab] amLODIPine [Norvasc] 10 mg PO DAILY 12/10/17 12/10/17 History hydrOXYzine PAMOATE 50 mg PO BID 12/10/17 12/10/17 History Allergies Allergy/AdvReac Type Severity Reaction Status Date / Time No Known Allergies Allergy Verified 12/10/17 20:25 Physical Exam Vitals: Vital Signs Temp Pulse Pulse Resp BP BP Pulse Ox 12/11/17 08:49 74 18 123/80 12/11/17 06:39 97.9 F 72 16 96/68 12/10/17 18:58 97.7 F 76 16 101/69 97 12/10/17 15:48 98.2 F 87 20 104/76 98 Intake and Output 12/10/17 12/11/17 12/11/17 22:59 06:59 14:59 Other: Weight 78.953 kg GENERAL: This is a 52-year-old male in no apparent distress at the time of examination. Pleasant and cooperative. HEENT: Head is atraumatic, normocephalic. Sclerae anicteric. Conjunctivae are clear. Mucus membranes of the mouth are moist. Neck is supple. RESPIRATORY: Clear to ausculation. No wheezes, rales, or rhonchi. No use of accessory muscles. Patient maintaining oxygen saturation greater than 92% CARDIOVASCULAR: Regular rate and rhythm. S1 and S2 noted. No systolic or diastolic murmur auscultated. No JVD noted. No S3 or S4 noted. GASTROINTESTINAL: No distention noted. Abdomen soft and round. Normal active bowel sounds auscultated x 4 quadrants. No pain or tenderness noted upon palpation. INTEGUMENTARY: No cyanosis. No jaundice. No rashes noted. No cellulitis noted. EXTREMITIES: 2+ peripheral pulses. No evidence of peripheral edema. No calf tenderness noted. NEUROLOGIC: Cranial nerves II-XII intact. PSYCHIATRIC: Awake, alert, and oriented X 3. Results CBC & Chem 7: 12/11/17 09:09 12/11/17 09:09 Labs: Abnormal Lab Results - Last 24 Hours (Table) 12/10/17 12/11/17 Range/Units 17:22 09:09 BUN 21 H (9-20) mg/dL Glucose 102 H (74-99) mg/dL Ur Barbiturates Screen Detected H (NotDetected) U Tricyclic Antidepress Detected H (NotDetected) U Benzodiazepines Scrn Detected H (NotDetected) Assessment and Plan Plan: ASSESSMENT: Depression with suicidal ideations History of CVA: left intraparenchymal hemorrhage Hyperlipidemia History of migraine headaches History of seizure disorder Nicotine dependence PLAN: Continue psychiatric care per Dr. Collazo [facility] as appropriate Monitor vital signs and address as appropriate Further recommendations pending patient's course Thank you for this consultation Please do not hesitate to contact us if you have questions or concerns Nurse practitioner note has been reviewed by physician. Signing provider agrees with the documented findings, assessment, and plan of care.
[2017-12-11 11:34] LABS: Phenytoin (Dilantin) 6.6 ug/mL
[2017-12-11] MEDS: ATORVASTATIN 80 MG TAB PO SCH (21:24)
[2017-12-11] MEDS ORDERED: traZODone HCL 50 MG TAB PO ONE (21:41)
[2017-12-12] MEDS: NICOTINE 21MG/24HR PATCH TRANSDERM SCH (08:17)
[2017-12-12] MEDS: PHENYTOIN SODIUM EXTENDED 100 MG CAP PO SCH ×2 (08:18→20:06)
[2017-12-12] MEDS: VALSARTAN 160 MG TAB PO SCH (08:18)
[2017-12-12] MEDS: amLODIPine 10 MG TAB PO SCH (08:19)
[2017-12-12] MEDS: CARVEDILOL 12.5 MG TAB PO SCH ×2 (08:19→16:57)
[2017-12-12] MEDS: HYDROCHLOROTHIAZIDE 25 MG TAB PO SCH (08:19)
[2017-12-12] MEDS: ASPIRIN 81 MG PO SCH (08:20)
--- NOTE | 2017-12-12 12:32 | P.PN ---
Subjective Progress Note Date: 12/12/17 Principal diagnosis: Bipolar affective disorder with subsequent seizure disorder chronic The patient is a 51-year-old male who has history of CVA, hemiparesis, seizure disorder and recurrent depression. He presented to the psychiatric unit with complaints of worsening depression and suicidal ideation. He is had multiple psychiatric admissions ] History of Present Illness: [Depressed and has not gotten better over the last 8 weeks] Past Medical History: Hyperlipidemia, Seizure Disorder Additional Past Medical History / Comment(s): L intraparenchymal hemorrhage L lung pneumothorax , Migraine Headaches. History of Any Multi-Drug Resistant Organisms: None Reported Past Surgical History: No Surgical Hx Reported Additional Past Surgical History / Comment(s): COLONOSCOPY POLYPS REMOVED-NEG, bilateral cataract removal, R testicular surgery as a little boy. Past Anesthesia/Blood Transfusion Reactions: No Reported Reaction Additional Past Anesthesia/Blood Transfusion Reaction / Comment(s): Pt has never recieved blood. Past Psychological History: Anxiety, Bipolar, Depression, Panic Disorder Smoking Status: Current every day smoker Past Alcohol Use History: None Reported Past Drug Use History: None Reported recent uses Xanax Allergies: [Is known known drug ALLERGIES] Social History: [Lives alone] Mental Status Examination - General Appearance: [disheveled, casual, appears older than stated age] Speech/Language: [ slow, slurred, mumbling, hesitant] Attitude/Behavior: [cooperative, guarded, withdrawn] Mood: [depressed 6/10, anxious 7/10, fearful, hopelessness] Affect: [ flat, incongruent, blunted constricted] Orientation: [time, person, place situation] Thought Content: [wnl, delusions] Risk Factors: [suicidal (ideations, plan)] Perception: [wnl,] Thought Processes: [goal-oriented, concrete] Concentration/Attention Span: [impaired] [Per observation and interview with the patient] Recent Memory: [wnl, impaired] [1 out of 3 in 3 minutes] Remote Memory: [wnl, impaired] [past events, as related history] Intelligence: [below average] [based on history, based on vocabulary, syntax, grammar, and content] Judgement: [poor] [per patient's behavior/history of present illness] Insight: [fair] [understanding severity of illness/history of present illness] Plan of Care: [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 Estimated Length of Stay: [6 days] Initial Discharge Plan: [[facility], referred to therapist] Prognosis: [guarded] Justification for Inpatient Hospitalization - [anxiety, depression resulting in significant loss of functioning.] [Dangerous to self [Emotional or behavioral conditions and complications requiring 24 hour medical and nursing care.] [Need for special drug therapy] [Failure of social functioning.] [Inability to meet basic life and health needs.] [Biomedical conditions and complications requiring 24 hour medical and nursing care.] [High relapse potential due to inability to control substance use.] [Failure of treatment at a lower level of care.] Objective - Vital Signs Vital signs: Vital Signs Temp 97.9 F 12/12/17 06:15 Pulse 95 12/12/17 08:24 Resp 20 12/12/17 08:24 BP 109/74 12/12/17 08:24 Pulse Ox 97 12/10/17 18:58 - Constitutional General appearance: Present: severe distress - Neurologic Neurologic: Present: CNII-XII intact - Musculoskeletal Musculoskeletal: Present: generalized weakness - Labs CBC & Chem 7: 12/11/17 09:09 12/11/17 09:09 Assessment and Plan (1) Bipolar disorder Current Visit: Yes Status: Acute Priority: High Code(s): F31.9 - BIPOLAR DISORDER, UNSPECIFIED SNOMED Code(s): 39296909 (2) History of stroke Current Visit: No Status: Acute Priority: Low Code(s): Z86.73 - PRSNL HX OF TIA (TIA), AND CEREB INFRC W/O RESID DEFICITS SNOMED Code(s): 816808707 (3) Hypertension Current Visit: No Status: Acute Priority: Low Code(s): I10 - ESSENTIAL ( PRIMARY) HYPERTENSION SNOMED Code(s): 88132901 (4) Seizure disorder Current Visit: No Status: Chronic Priority: Low Code(s): G40.909 - EPILEPSY, UNSP, NOT INTRACTABLE, WITHOUT STATUS EPILEPTICUS SNOMED Code(s): 477741107 (5) Suicidal ideation Current Visit: Yes Status: Resolved Priority: Medium Code(s): R45.851 - SUICIDAL IDEATIONS SNOMED Code(s): 6999203
[2017-12-12] MEDS ORDERED: lamoTRIgine 25 MG TAB PO SCH (20:00)
[2017-12-12] MEDS: ATORVASTATIN 80 MG TAB PO SCH (20:06)
[2017-12-12] MEDS ORDERED: VENLAFAXINE HCL ER 37.5 MG CAP PO SCH (21:00)
[2017-12-13] MEDS: amLODIPine 10 MG TAB PO SCH (08:06)
[2017-12-13] MEDS: PHENYTOIN SODIUM EXTENDED 100 MG CAP PO SCH ×2 (08:06→20:24)
[2017-12-13] MEDS: NICOTINE 21MG/24HR PATCH TRANSDERM SCH (08:06)
[2017-12-13] MEDS: CARVEDILOL 12.5 MG TAB PO SCH ×2 (08:07→15:42)
[2017-12-13] MEDS: HYDROCHLOROTHIAZIDE 25 MG TAB PO SCH (08:07)
[2017-12-13] MEDS: VALSARTAN 160 MG TAB PO SCH (08:07)
[2017-12-13] MEDS: ASPIRIN 81 MG PO SCH (08:17)
--- NOTE | 2017-12-13 11:58 | P.PN ---
Subjective Progress Note Date: 12/13/17 Principal diagnosis: Bipolar affective disorder with subsequent seizure disorder chronic The patient is a 51-year-old male who has history of CVA, hemiparesis, seizure disorder and recurrent depression. He presented to the psychiatric unit with complaints of worsening depression and suicidal ideation. He is had multiple psychiatric admissions ] History of Present Illness: [Depressed and has not gotten better over the last 8 weeks] Past Medical History: Hyperlipidemia, Seizure Disorder Additional Past Medical History / Comment(s): L intraparenchymal hemorrhage L lung pneumothorax , Migraine Headaches. History of Any Multi-Drug Resistant Organisms: None Reported Past Surgical History: No Surgical Hx Reported Additional Past Surgical History / Comment(s): COLONOSCOPY POLYPS REMOVED-NEG, bilateral cataract removal, R testicular surgery as a little boy. Past Anesthesia/Blood Transfusion Reactions: No Reported Reaction Additional Past Anesthesia/Blood Transfusion Reaction / Comment(s): Pt has never recieved blood. Past Psychological History: Anxiety, Bipolar, Depression, Panic Disorder Smoking Status: Current every day smoker Past Alcohol Use History: None Reported Past Drug Use History: None Reported recent uses Xanax Allergies: [Is known known drug ALLERGIES] Social History: [Lives alone] Mental Status Examination - General Appearance: [disheveled, casual, appears older than stated age] Speech/Language: [ slow, slurred, mumbling, hesitant] Attitude/Behavior: [cooperative, guarded, withdrawn] Mood: [depressed 5/10, anxious 6/10, fearful, hopelessness] Affect: [ flat, incongruent, blunted constricted] Orientation: [time, person, place situation] Thought Content: [wnl, delusions] Risk Factors: [suicidal (ideations, plan)] Perception: [wnl,] Thought Processes: [goal-oriented, concrete] Concentration/Attention Span: [impaired] [Per observation and interview with the patient] Recent Memory: [wnl, impaired] [1 out of 3 in 3 minutes] Remote Memory: [wnl, impaired] [past events, as related history] Intelligence: [below average] [based on history, based on vocabulary, syntax, grammar, and content] Judgement: [poor] [per patient's behavior/history of present illness] Insight: [fair] [understanding severity of illness/history of present illness] Plan of Care: [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 and has Vistaril and reevaluate on 12/12/2017; 12/12/2017 started venlafaxine 75 mg XR at bedtime, Mirapex 2 mg po tid, Lamictal 50 mg by mouth daily at bedtime.; Remeroun 7.5 mg po qh Estimated Length of Stay: [5 days] Initial Discharge Plan: [[facility], referred to therapist] Prognosis: [guarded] Justification for Inpatient Hospitalization - [anxiety, depression resulting in significant loss of functioning.] [Dangerous to self [Emotional or behavioral conditions and complications requiring 24 hour medical and nursing care.] [Need for special drug therapy] [Failure of social functioning.] [Inability to meet basic life and health needs.] [Biomedical conditions and complications requiring 24 hour medical and nursing care.] [High relapse potential due to inability to control substance use.] [Failure of treatment at a lower level of care.] Objective - Vital Signs Vital signs: Vital Signs Temp 97.9 F 12/13/17 06:20 Pulse 92 12/13/17 08:09 Resp 18 12/13/17 08:09 BP 103/68 12/13/17 08:09 Pulse Ox 97 12/10/17 18:58 - Labs CBC & Chem 7: 12/11/17 09:09 12/11/17 09:09 Assessment and Plan (1) Bipolar disorder Current Visit: Yes Status: Acute Priority: High Code(s): F31.9 - BIPOLAR DISORDER, UNSPECIFIED SNOMED Code(s): 31302260 (2) History of stroke Current Visit: No Status: Acute Priority: Low Code(s): Z86.73 - PRSNL HX OF TIA (TIA), AND CEREB INFRC W/O RESID DEFICITS SNOMED Code(s): 045184738 (3) Hypertension Current Visit: No Status: Acute Priority: Low Code(s): I10 - ESSENTIAL ( PRIMARY) HYPERTENSION SNOMED Code(s): 62259947 (4) Seizure disorder Current Visit: No Status: Chronic Priority: Low Code(s): G40.909 - EPILEPSY, UNSP, NOT INTRACTABLE, WITHOUT STATUS EPILEPTICUS SNOMED Code(s): 027498230 (5) Suicidal ideation Current Visit: Yes Status: Resolved Priority: Medium Code(s): R45.851 - SUICIDAL IDEATIONS SNOMED Code(s): 6583123
[2017-12-13] MEDS: PRAMIPEXOLE 0.5 MG TAB PO SCH ×2 (15:40→21:17)
[2017-12-13] MEDS: ATORVASTATIN 80 MG TAB PO SCH (20:23)
[2017-12-13] MEDS: MIRTAZAPINE 15 MG TAB PO SCH (20:27)
[2017-12-13] MEDS ORDERED: VENLAFAXINE HCL ER 75 MG CAP PO SCH (21:00)
[2017-12-14] MEDS: ACETAMINOPHEN TAB 325 MG TAB PO PRN ×3 (01:45→15:11)
[2017-12-14] MEDS: MAG HYDROX/AL HYDROX/SIMETH 30 ML CUP PO PRN (03:16)
[2017-12-14] MEDS ORDERED: LORazepam 1 MG TAB PO STA (03:22)
[2017-12-14] MEDS: PHENYTOIN SODIUM EXTENDED 100 MG CAP PO SCH ×2 (09:30→20:13)
[2017-12-14] MEDS: ASPIRIN 81 MG PO SCH (09:30)
[2017-12-14] MEDS: CARVEDILOL 12.5 MG TAB PO SCH ×2 (09:30→16:39)
[2017-12-14] MEDS: amLODIPine 10 MG TAB PO SCH (09:31)
[2017-12-14] MEDS: NICOTINE 21MG/24HR PATCH TRANSDERM SCH (09:31)
[2017-12-14] MEDS: HYDROCHLOROTHIAZIDE 25 MG TAB PO SCH (09:31)
[2017-12-14] MEDS: PRAMIPEXOLE 0.5 MG TAB PO SCH ×3 (09:32→21:47)
[2017-12-14] MEDS: VALSARTAN 160 MG TAB PO SCH (09:33)
--- NOTE | 2017-12-14 10:26 | P.PN ---
Subjective Progress Note Date: 12/14/17 Principal diagnosis: Bipolar affective disorder with subsequent seizure disorder chronic The patient is a 51-year-old male who has history of CVA, hemiparesis, seizure disorder and recurrent depression. He presented to the psychiatric unit with complaints of worsening depression and suicidal ideation. He is had multiple psychiatric admissions ] Interval history today because he had difficulty sleeping last night and after further discussion was started on 25 mg of Seroquel at nighttime and Ema to titrate that over the weekend drinking coverage History of Present Illness: [Depressed and has not gotten better over the last 8 weeks] Past Medical History: Hyperlipidemia, Seizure Disorder Additional Past Medical History / Comment(s): L intraparenchymal hemorrhage L lung pneumothorax , Migraine Headaches. History of Any Multi-Drug Resistant Organisms: None Reported Past Surgical History: No Surgical Hx Reported Additional Past Surgical History / Comment(s): COLONOSCOPY POLYPS REMOVED-NEG, bilateral cataract removal, R testicular surgery as a little boy. Past Anesthesia/Blood Transfusion Reactions: No Reported Reaction Additional Past Anesthesia/Blood Transfusion Reaction / Comment(s): Pt has never recieved blood. Past Psychological History: Anxiety, Bipolar, Depression, Panic Disorder Smoking Status: Current every day smoker Past Alcohol Use History: None Reported Past Drug Use History: None Reported recent uses Xanax Allergies: [Is known known drug ALLERGIES] Social History: [Lives alone] Mental Status Examination - General Appearance: [disheveled, casual, appears older than stated age] Speech/Language: [ slow, slurred, mumbling, hesitant] Attitude/Behavior: [cooperative, guarded, withdrawn] Mood: [depressed 5/10, anxious 6/10, fearful, hopelessness] Affect: [ flat, incongruent, blunted constricted] Orientation: [time, person, place situation] Thought Content: [wnl, delusions] Risk Factors: [suicidal (ideations, plan)] Perception: [wnl,] Thought Processes: [goal-oriented, concrete] Concentration/Attention Span: [impaired] [Per observation and interview with the patient] Recent Memory: [wnl, impaired] [1 out of 3 in 3 minutes] Remote Memory: [wnl, impaired] [past events, as related history] Intelligence: [below average] [based on history, based on vocabulary, syntax, grammar, and content] Judgement: [poor] [per patient's behavior/history of present illness] Insight: [fair] [understanding severity of illness/history of present illness] Plan of Care: started venlafaxine 75 mg XR 9 AM +37.5 mg extended release in the morning, Mirapex 2 mg po tid, Lamictal 50 mg by mouth daily at bedtime.; Remeroun 7.5 mg po qh will add Seroquel 25 mg at bedtime to see if that helps calm down his racing thoughts and able to allow him to get sleep Estimated Length of Stay: [5 days] Initial Discharge Plan: [[facility], referred to therapist] Prognosis: [guarded] Justification for Inpatient Hospitalization - [anxiety, depression resulting in significant loss of functioning.] [Dangerous to self [Emotional or behavioral conditions and complications requiring 24 hour medical and nursing care.] [Need for special drug therapy] [Failure of social functioning.] [Inability to meet basic life and health needs.] [Biomedical conditions and complications requiring 24 hour medical and nursing care.] [High relapse potential due to inability to control substance use.] [Failure of treatment at a lower level of care.] Objective - Vital Signs Vital signs: Vital Signs Temp 97.6 F 12/14/17 01:45 Pulse 104 H 12/14/17 09:26 Resp 18 12/14/17 09:26 BP 134/100 12/14/17 09:26 Pulse Ox 98 12/14/17 01:45 - Labs CBC & Chem 7: 12/11/17 09:09 12/11/17 09:09 Assessment and Plan (1) Bipolar disorder Current Visit: Yes Status: Acute Priority: High Code(s): F31.9 - BIPOLAR DISORDER, UNSPECIFIED SNOMED Code(s): 60893267 (2) History of stroke Current Visit: No Status: Acute Priority: Low Code(s): Z86.73 - PRSNL HX OF TIA (TIA), AND CEREB INFRC W/O RESID DEFICITS SNOMED Code(s): 230212732 (3) Hypertension Current Visit: No Status: Acute Priority: Low Code(s): I10 - ESSENTIAL ( PRIMARY) HYPERTENSION SNOMED Code(s): 49517658 (4) Seizure disorder Current Visit: No Status: Chronic Priority: Low Code(s): G40.909 - EPILEPSY, UNSP, NOT INTRACTABLE, WITHOUT STATUS EPILEPTICUS SNOMED Code(s): 617897343 (5) Suicidal ideation Current Visit: Yes Status: Resolved Priority: Medium Code(s): R45.851 - SUICIDAL IDEATIONS SNOMED Code(s): 9056363
[2017-12-14] MEDS ORDERED: VENLAFAXINE HCL ER 75 MG CAP PO STA (10:57)
[2017-12-14] MEDS: ATORVASTATIN 80 MG TAB PO SCH (20:13)
[2017-12-14] MEDS: QUEtiapine 25 MG TAB PO SCH (20:13)
[2017-12-14] MEDS: MIRTAZAPINE 15 MG TAB PO SCH (20:13)
[2017-12-15] MEDS: ACETAMINOPHEN TAB 325 MG TAB PO PRN ×2 (00:11→05:23)
[2017-12-15] MEDS: MAG HYDROX/AL HYDROX/SIMETH 30 ML CUP PO PRN ×2 (00:15→05:17)
[2017-12-15] MEDS ORDERED: hydrOXYzine PAMOATE 25 MG CAP PO ONE (00:50)
[2017-12-15] MEDS: VALSARTAN 160 MG TAB PO SCH (08:04)
[2017-12-15] MEDS: VENLAFAXINE HCL ER 37.5 MG CAP PO SCH (08:04)
[2017-12-15] MEDS: amLODIPine 10 MG TAB PO SCH (08:05)
[2017-12-15] MEDS: CARVEDILOL 12.5 MG TAB PO SCH ×2 (08:05→17:23)
[2017-12-15] MEDS: ASPIRIN 81 MG PO SCH (08:05)
[2017-12-15] MEDS: PHENYTOIN SODIUM EXTENDED 100 MG CAP PO SCH ×2 (08:06→20:20)
[2017-12-15] MEDS: HYDROCHLOROTHIAZIDE 25 MG TAB PO SCH (08:06)
[2017-12-15] MEDS: PRAMIPEXOLE 0.5 MG TAB PO SCH ×3 (08:06→20:21)
[2017-12-15] MEDS: NICOTINE 21MG/24HR PATCH TRANSDERM SCH (08:07)
[2017-12-15] MEDS ORDERED: VENLAFAXINE HCL ER 75 MG CAP PO SCH (09:00)
[2017-12-15] MEDS ORDERED: LORazepam 1 MG TAB PO STA (16:38)
--- NOTE | 2017-12-15 17:04 | P.PN ---
Progress Note - Text Progress Note Date: 12/15/17 IDENTIFICATION DATA: 52-year-old male with history of bipolar disorder admitted due to worsening depression and suicidal ideations. INTERVAL HISTORY: Behavioral problems He is demanding for ativan 1mg to be given to help him relax. He claims to have received one ativan tablet two days ago and claims it has helped him. He claims he has not slept well in five days and reports feeling very restless. He also claims to have been taking seroquel 200mg for the past fifteen years. He reports his seroquel dose was cut down to 25mg at the time of admission. He claims seroquel has helped him to sleep better. He also states he can eat well and think better with it. Mood disorder: He reports elavil that was prescribed to him during his last admission hasnt worked well for him as he continues to struggle with depression. He is currently prescribed effexor. He reports being complaint with his medicatios currently . No side effects reported. He currently rates his depression as 10/10 , ten being worst. He reports poor concentration, feeling confused and paranoid . He reports low motivation. Not wanting to do anything , not cleaning the house etc. He denies current suicidal or homicidal ideations. He reports having residual effects of stroke suffered two years ago. He complains of inability to do most of the things due to feeling numb especially his right hand. Psychosis Reports feeling confused and paranoid. Denies auditory and visual hallucinations. MENTAL STATUS EXAMINATION: 52- year-old male. He appeared his stated age in fair grooming and hygiene. He is dressed casually. No abnormal movements noted. The patient is alert and oriented 4 and in no apparent distress. His speech and thought process are persevarative and requests for ativan tablet to be prescribed now. Mood is reported as DEPRESSED and affect is APPROPRIATE. Denies suicidal or homicidal ideation. Denies auditory or visual hallucaintions. Not delusional. insight and judgment are limited.. ASSESSMENT AND PLAN: Ativan 1mg po now. Increase the dose of seroquel to 100mg po qhs. Continue current medications Continue all precuations Monitor for symptoms
[2017-12-15] MEDS: QUEtiapine 25 MG TAB PO SCH (20:20)
[2017-12-15] MEDS: MIRTAZAPINE 15 MG TAB PO SCH (20:20)
[2017-12-15] MEDS: QUEtiapine 100 MG TAB PO SCH (20:20)
[2017-12-15] MEDS: ATORVASTATIN 80 MG TAB PO SCH (20:20)
[2017-12-16] MEDS: MAG HYDROX/AL HYDROX/SIMETH 30 ML CUP PO PRN ×3 (01:50→23:24)
[2017-12-16] MEDS: CARVEDILOL 12.5 MG TAB PO SCH ×2 (07:53→16:44)
[2017-12-16] MEDS: PHENYTOIN SODIUM EXTENDED 100 MG CAP PO SCH ×2 (08:43→20:22)
[2017-12-16] MEDS: VENLAFAXINE HCL ER 37.5 MG CAP PO SCH (08:43)
[2017-12-16] MEDS: ASPIRIN 81 MG PO SCH (08:43)
[2017-12-16] MEDS: VALSARTAN 160 MG TAB PO SCH (08:44)
[2017-12-16] MEDS: amLODIPine 10 MG TAB PO SCH (08:44)
[2017-12-16] MEDS: HYDROCHLOROTHIAZIDE 25 MG TAB PO SCH (08:44)
[2017-12-16] MEDS: PRAMIPEXOLE 0.5 MG TAB PO SCH ×3 (08:44→20:21)
[2017-12-16] MEDS: NICOTINE 21MG/24HR PATCH TRANSDERM SCH (08:44)
--- NOTE | 2017-12-16 16:31 | P.PN ---
Progress Note - Text Progress Note Date: 12/16/17 IDENTIFICATION DATA : 52-year-old male with history of bipolar disorder admitted due to worsening depression and suicidal ideations. INTERVAL HISTORY: Patient claims to have slept for five hours yesterday night. He is thankful about increasing the dose of seroquel. He claims he was able to eat well today. He reports going to most of his groups. No major behavioral problems reported. He claims he did not take his miraex today. He states mirapex gives him heart burn. He claims he did not have any heart burn today as he did not take his mirapex. He refuses to take it any more. MENTAL STATUS EXAMINATION: The patient is alert and oriented 4 and in no apparent distress. he appears in fair grooming and hygiene. Dressed casually. He is pleasant and cooperative. Mood is "sad" and affect is constricted. Denies auditory and visual hallucinations. thought processes is linear and goal directed. thought content is negative for suicidal or homicidal ideation. insight and judgment are improving ASSESSMENT AND PLAN: Patient is non complaint with mirapex, says it gives him heart burn and refuses to take it. Continue current medications Continue precuations Monitor for symptoms
[2017-12-16] MEDS: ATORVASTATIN 80 MG TAB PO SCH (20:22)
[2017-12-16] MEDS: QUEtiapine 25 MG TAB PO SCH (20:26)
[2017-12-16] MEDS: MIRTAZAPINE 15 MG TAB PO SCH (20:27)
[2017-12-16] MEDS: QUEtiapine 100 MG TAB PO SCH (20:28)
[2017-12-17] MEDS: NICOTINE 21MG/24HR PATCH TRANSDERM SCH (08:39)
[2017-12-17] MEDS: CARVEDILOL 12.5 MG TAB PO SCH ×2 (08:39→16:37)
[2017-12-17] MEDS: VENLAFAXINE HCL ER 37.5 MG CAP PO SCH (08:40)
[2017-12-17] MEDS: VALSARTAN 160 MG TAB PO SCH (08:41)
[2017-12-17] MEDS: ASPIRIN 81 MG PO SCH (08:42)
[2017-12-17] MEDS: PRAMIPEXOLE 0.5 MG TAB PO SCH (08:42)
[2017-12-17] MEDS: PHENYTOIN SODIUM EXTENDED 100 MG CAP PO SCH ×2 (08:42→20:20)
[2017-12-17] MEDS: HYDROCHLOROTHIAZIDE 25 MG TAB PO SCH (08:42)
[2017-12-17] MEDS: amLODIPine 10 MG TAB PO SCH (08:42)
--- NOTE | 2017-12-17 09:42 | P.PN ---
Subjective Progress Note Date: 12/17/17 Principal diagnosis: Bipolar affective disorder with subsequent seizure disorder chronic The patient is a 51-year-old male who has history of CVA, hemiparesis, seizure disorder and recurrent depression. He presented to the psychiatric unit with complaints of worsening depression and suicidal ideation. He is had multiple psychiatric admissions ] Interval history today because he had difficulty sleeping last night and after further discussion was started on 25 mg of Seroquel at nighttime and Ema to titrate that over the weekend drinking coverage Remains hopless and helpless. History of Present Illness: [Depressed and has not gotten better over the last 8 weeks] Past Medical History: Hyperlipidemia, Seizure Disorder Additional Past Medical History / Comment(s): L intraparenchymal hemorrhage L lung pneumothorax , Migraine Headaches. History of Any Multi-Drug Resistant Organisms: None Reported Past Surgical History: No Surgical Hx Reported Additional Past Surgical History / Comment(s): COLONOSCOPY POLYPS REMOVED-NEG, bilateral cataract removal, R testicular surgery as a little boy. Past Anesthesia/Blood Transfusion Reactions: No Reported Reaction Additional Past Anesthesia/Blood Transfusion Reaction / Comment(s): Pt has never recieved blood. Past Psychological History: Anxiety, Bipolar, Depression, Panic Disorder Smoking Status: Current every day smoker Past Alcohol Use History: None Reported Past Drug Use History: None Reported recent uses Xanax Allergies: [Is known known drug ALLERGIES] Social History: [Lives alone] Mental Status Examination - General Appearance: [disheveled, casual, appears older than stated age] Speech/Language: [ slow, slurred, mumbling, hesitant] Attitude/Behavior: [cooperative, guarded, withdrawn] Mood: [depressed 5/10, anxious 6/10, fearful, hopelessness] Affect: [ flat, incongruent, blunted constricted] Orientation: [time, person, place situation] Thought Content: [wnl, delusions] Risk Factors: [suicidal (ideations, plan)] Perception: [wnl,] Thought Processes: [goal-oriented, concrete] Concentration/Attention Span: [impaired] [Per observation and interview with the patient] Recent Memory: [wnl, impaired] [1 out of 3 in 3 minutes] Remote Memory: [wnl, impaired] [past events, as related history] Intelligence: [below average] [based on history, based on vocabulary, syntax, grammar, and content] Judgement: [poor] [per patient's behavior/history of present illness] Insight: [fair] [understanding severity of illness/history of present illness] Plan of Care: started venlafaxine 150 mg XR extended release in the morning, Lamictal 50 mg by mouth daily at bedtime.; Remeroun 7.5 mg po qh will add Seroquel 200 mg at bedtime to see if that helps calm down his racing thoughts and able to allow him to get sleep Estimated Length of Stay: [5 days] Initial Discharge Plan: [[facility], referred to therapist] Prognosis: [guarded] Justification for Inpatient Hospitalization - [anxiety, depression resulting in significant loss of functioning.] [Dangerous to self [Emotional or behavioral conditions and complications requiring 24 hour medical and nursing care.] [Need for special drug therapy] [Failure of social functioning.] [Inability to meet basic life and health needs.] [Biomedical conditions and complications requiring 24 hour medical and nursing care.] [High relapse potential due to inability to control substance use.] [Failure of treatment at a lower level of care.] Objective - Vital Signs Vital signs: Vital Signs Temp 98.2 F 12/17/17 06:55 Pulse 103 H 12/17/17 08:54 Resp 16 12/17/17 08:54 BP 110/74 12/17/17 08:54 Pulse Ox 98 12/14/17 01:45 Intake & Output 12/16/17 12/17/17 12/17/17 18:59 06:59 18:59 Weight 79 kg - Labs CBC & Chem 7: 12/11/17 09:09 12/11/17 09:09 Assessment and Plan (1) Bipolar disorder Current Visit: Yes Status: Acute Priority: High Code(s): F31.9 - BIPOLAR DISORDER, UNSPECIFIED SNOMED Code(s): 86279919 (2) History of stroke Current Visit: No Status: Acute Priority: Low Code(s): Z86.73 - PRSNL HX OF TIA (TIA), AND CEREB INFRC W/O RESID DEFICITS SNOMED Code(s): 290869795 (3) Hypertension Current Visit: No Status: Acute Priority: Low Code(s): I10 - ESSENTIAL ( PRIMARY) HYPERTENSION SNOMED Code(s): 54424222 (4) Seizure disorder Current Visit: No Status: Chronic Priority: Low Code(s): G40.909 - EPILEPSY, UNSP, NOT INTRACTABLE, WITHOUT STATUS EPILEPTICUS SNOMED Code(s): 644050240 (5) Suicidal ideation Current Visit: Yes Status: Resolved Priority: Medium Code(s): R45.851 - SUICIDAL IDEATIONS SNOMED Code(s): 7028757
[2017-12-17 11:29] LABS: Appearance,Urine Clear (Clear); Bilirubin,Urine Negative (Negative); Blood,Urine Small (Negative); Color,Urine Yellow; Glucose,Urine (UA) Negative (Negative); Ketones,Urine Negative (Negative); Leukocyte Esterase,Urine Negative (Negative); Mucus,Urine Rare /hpf; Nitrite,Urine Negative (Negative); PH, Urine 6.5 (5.0-8.0); Protein,Urine 1+ (Negative); RBC,Urine 20 /hpf (0-5); Specific Gravity,Urine 1.026 (1.001-1.035); WBC,Urine 2 /hpf (0-5)
[2017-12-17] MEDS: ACETAMINOPHEN TAB 325 MG TAB PO PRN (19:27)
[2017-12-17] MEDS: MAG HYDROX/AL HYDROX/SIMETH 30 ML CUP PO PRN (19:27)
[2017-12-17] MEDS: QUEtiapine 200 MG TAB PO SCH (20:20)
[2017-12-17] MEDS: MIRTAZAPINE 15 MG TAB PO SCH (20:20)
[2017-12-17] MEDS: ATORVASTATIN 80 MG TAB PO SCH (20:20)
[2017-12-18] MEDS ORDERED: VENLAFAXINE HCL ER 150 MG CAP PO SCH (09:00)
[2017-12-18] MEDS: NICOTINE 21MG/24HR PATCH TRANSDERM SCH (09:03)
[2017-12-18] MEDS: PHENYTOIN SODIUM EXTENDED 100 MG CAP PO SCH ×2 (09:04→20:22)
[2017-12-18] MEDS: amLODIPine 10 MG TAB PO SCH (09:04)
[2017-12-18] MEDS: CARVEDILOL 12.5 MG TAB PO SCH ×2 (09:04→16:28)
[2017-12-18] MEDS: ASPIRIN 81 MG PO SCH (09:04)
[2017-12-18] MEDS: HYDROCHLOROTHIAZIDE 25 MG TAB PO SCH (09:04)
[2017-12-18] MEDS: VALSARTAN 160 MG TAB PO SCH (09:07)
[2017-12-18] MEDS: ACETAMINOPHEN TAB 325 MG TAB PO PRN ×2 (09:25→16:28)
--- NOTE | 2017-12-18 12:26 | P.PN ---
Subjective Progress Note Date: 12/18/17 Principal diagnosis: Bipolar affective disorder with subsequent seizure disorder chronic The patient is a 51-year-old male who has history of CVA, hemiparesis, seizure disorder and recurrent depression. He presented to the psychiatric unit with complaints of worsening depression and suicidal ideation. He is had multiple psychiatric admissions ] Interval history today because he had difficulty sleeping last night and after further discussion was started on 25 mg of Seroquel at nighttime and Ema to titrate that over the weekend drinking coverage Remains hopless and helpless. History of Present Illness: [Depressed and has gotten better over the last 8 weeks] Past Medical History: Hyperlipidemia, Seizure Disorder Additional Past Medical History / Comment(s): L intraparenchymal hemorrhage L lung pneumothorax , Migraine Headaches. History of Any Multi-Drug Resistant Organisms: None Reported Past Surgical History: No Surgical Hx Reported Additional Past Surgical History / Comment(s): COLONOSCOPY POLYPS REMOVED-NEG, bilateral cataract removal, R testicular surgery as a little boy. Past Anesthesia/Blood Transfusion Reactions: No Reported Reaction Additional Past Anesthesia/Blood Transfusion Reaction / Comment(s): Pt has never recieved blood. Past Psychological History: Anxiety, Bipolar, Depression, Panic Disorder Smoking Status: Current every day smoker Past Alcohol Use History: None Reported Past Drug Use History: None Reported recent uses Xanax Allergies: [Is known known drug ALLERGIES] Social History: [Lives alone] Mental Status Examination - General Appearance: [ casual, appears older than stated age] Speech/Language: [ slow, slurred, mumbling, hesitant] Attitude/Behavior: [cooperative, guarded, withdrawn] Mood: [depressed 4/10, anxious 3/10, fearful, hopelessness] Affect: [ flat, incongruent] Orientation: [time, person, place situation] Thought Content: [wnl] Risk Factors: [minimal suicidal (ideations] Perception: [wnl,] Thought Processes: [goal-oriented, concrete] Concentration/Attention Span: [impaired] [Per observation and interview with the patient] Recent Memory: [ impaired] [2 out of 3 in 3 minutes] Remote Memory: [impaired] [past events, as related history] Intelligence: [below average] [based on history, based on vocabulary, syntax, grammar, and content] Judgement: [fair] [per patient's behavior/history of present illness] Insight: [fair] [understanding severity of illness/history of present illness] Plan of Care: started venlafaxine 225 mg XR extended release in the morning, Lamictal 50 mg by mouth daily at bedtime.; Remeroun 7.5 mg po qh will add Seroquel 200 mg at bedtime to see if that helps calm down his racing thoughts and able to allow him to get sleep Estimated Length of Stay: [3 days] Initial Discharge Plan: [[facility], referred to therapist] Prognosis: [guarded] Justification for Inpatient Hospitalization - [anxiety, depression resulting in significant loss of functioning.] [Emotional or behavioral conditions and complications requiring 24 hour medical and nursing care.] [Need for special drug therapy] [Failure of social functioning.] [Biomedical conditions and complications requiring 24 hour medical and nursing care. [Failure of treatment at a lower level of care.] Objective - Vital Signs Vital signs: Vital Signs Temp 97.8 F 12/18/17 06:51 Pulse 103 H 12/18/17 09:14 Resp 18 12/18/17 09:14 BP 118/66 12/18/17 09:14 Pulse Ox 98 12/14/17 01:45 - Labs CBC & Chem 7: 12/11/17 09:09 12/11/17 09:09 Assessment and Plan (1) Bipolar disorder Current Visit: Yes Status: Acute Priority: High Code(s): F31.9 - BIPOLAR DISORDER, UNSPECIFIED SNOMED Code(s): 90842753 (2) History of stroke Current Visit: No Status: Acute Priority: Low Code(s): Z86.73 - PRSNL HX OF TIA (TIA), AND CEREB INFRC W/O RESID DEFICITS SNOMED Code(s): 761642258 (3) Hypertension Current Visit: No Status: Acute Priority: Low Code(s): I10 - ESSENTIAL ( PRIMARY) HYPERTENSION SNOMED Code(s): 93085268 (4) Seizure disorder Current Visit: No Status: Chronic Priority: Low Code(s): G40.909 - EPILEPSY, UNSP, NOT INTRACTABLE, WITHOUT STATUS EPILEPTICUS SNOMED Code(s): 017011657 (5) Suicidal ideation Current Visit: Yes Status: Resolved Priority: Medium Code(s): R45.851 - SUICIDAL IDEATIONS SNOMED Code(s): 2054535
[2017-12-18] MEDS: MIRTAZAPINE 15 MG TAB PO SCH (20:22)
[2017-12-18] MEDS: QUEtiapine 200 MG TAB PO SCH (20:22)
[2017-12-18] MEDS: ATORVASTATIN 80 MG TAB PO SCH (20:22)
[2017-12-19 04:09] VITALS: TEMP 97.7
[2017-12-19] MEDS: amLODIPine 10 MG TAB PO SCH (07:52)
[2017-12-19] MEDS: HYDROCHLOROTHIAZIDE 25 MG TAB PO SCH (07:52)
[2017-12-19] MEDS: PHENYTOIN SODIUM EXTENDED 100 MG CAP PO SCH (07:52)
[2017-12-19] MEDS: ASPIRIN 81 MG PO SCH ×2 (07:52→07:53)
[2017-12-19] MEDS: NICOTINE 21MG/24HR PATCH TRANSDERM SCH (07:52)
[2017-12-19] MEDS: VALSARTAN 160 MG TAB PO SCH (07:52)
[2017-12-19] MEDS: CARVEDILOL 12.5 MG TAB PO SCH (07:53)
[2017-12-19 08:00] VITALS: BP 106/73; PULSE 96; RESP 18
--- NOTE | 2017-12-19 09:28 | P.DS ---
Providers Date of admission: 12/10/17 18:04 Expected date of discharge: 12/19/17 Attending physician: Subhash Collazo DO Consults: 12/10/17 19:53 Consult Physician Routine Consulting Provider: Srikanth Ervin Consult Reason/Comments: H & P Do you want consulting provider notified?: Already Contacted Primary care physician: Srikanth Ervin - Discharge Diagnosis(es) (1) Bipolar disorder Chief Complaint: [his a 52-year-old male presents emergency Department with chief complaint of depression, suicidal ideation. Patient states that he has been taken his medications as directed but has been having worsening depression. He states that he has no energy states that he is very down about his current life situation and that he has not been taking care of himself or his animals. Patient states that he has had some thoughts of hurting himself. Patient is here with family members with similar concerns. Patient denies any alcohol abuse. He did admit that he bought some Xanax recently because he states that he wanted to sleep or had thoughts of hurting herself with the medication. Patient has no physical complaints. The patient is a 51-year-old male who has history of CVA, hemiparesis, seizure disorder and recurrent depression. He presented to the psychiatric unit with complaints of worsening depression and suicidal ideation. 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 Current Visit: Yes Status: Acute Priority: Low (2) History of stroke Current Visit: No Status: Acute Priority: Low (3) Hypertension Current Visit: No Status: Acute Priority: Low (4) Seizure disorder Current Visit: No Status: Chronic Priority: Low (5) Suicidal ideation Current Visit: Yes Status: Resolved Priority: Medium Hospital Course: Chief Complaint: [his a 52-year-old male presents emergency Department with chief complaint of depression, suicidal ideation. Patient states that he has been taken his medications as directed but has been having worsening depression. He states that he has no energy states that he is very down about his current life situation and that he has not been taking care of himself or his animals. Patient states that he has had some thoughts of hurting himself. Patient is here with family members with similar concerns. Patient denies any alcohol abuse. He did admit that he bought some Xanax recently because he states that he wanted to sleep or had thoughts of hurting herself with the medication. Patient has no physical complaints. The patient is a 51-year-old male who has history of CVA, hemiparesis, seizure disorder and recurrent depression. He presented to the psychiatric unit with complaints of worsening depression and suicidal ideation. 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 The patient presents alert, pleasant, and cooperative. There calmly seated without any agitated behavior. [He] reports that [his] mood is good. Affect is congruent and euthymic. [He] deny having any suicidal or homicidal ideation intent or plan. [He] denies any auditory or visual hallucinations. There is no evidence of any delusional thought content. [He] thought process is linear and goal-directed. [His] speech is fluent and nonpressured. [His] memory and concentration is grossly intact for the purposes of this session. This is a 52-year-old male who was extremely engaging in treatment why he was here. He wanted change in his medications and we did so by discontinuing his Lexapro and tricyclic antidepressant and switched him to venlafaxine, Seroquel 200 mg at bedtime, and Remeron 7.5 mg by mouth daily at bedtime which has a more sedative effect on the PKU value for histamine. He is now sleeping 6-7 hours a night, slowly increasing his appetite and interaction with his peers in appropriate manner. I discussed with him that he needs to say away from street medications including marijuana cocaine and any other psychoactive medication. Pertinent Studies: Keppra 27.3 ug/ml Dilantin ug/ml UDS negative Plan - Discharge Summary Discharge Rx Participant: Yes New Discharge Prescriptions: New Carvedilol [Coreg*] 12.5 mg PO BID-W/MEALS tab levETIRAcetam [Keppra] 750 mg PO QAM tab levETIRAcetam [Keppra] 1,500 mg PO HS tab Mirtazapine [Remeron] 7.5 mg PO HS 30 Days #30 tab Phenytoin Sodium Extended [Dilantin] 200 mg PO BID cap QUEtiapine [SEROquel] 200 mg PO HS 30 Days #30 tab Venlafaxine HCl ER [Effexor XR] 225 mg PO 1999 30 Days #90 cap.er.24h Continue Atorvastatin Calcium [Lipitor] 80 mg PO HS Carvedilol 25 mg PO BID amLODIPine [Norvasc] 10 mg PO DAILY Aspirin [Adult Low Dose Aspirin EC] 81 mg PO DAILY Discontinued Phenytoin Sodium Extended [Dilantin] 200 mg PO BID levETIRAcetam [Keppra] 750 mg PO QAM levETIRAcetam [Keppra] 1,500 mg PO HS QUEtiapine [SEROquel] 200 mg PO HS #60 tab Valsartan/Hydrochlorothiazide [Valsartan-Hctz 160-25 mg Tab] 1 tab PO DAILY Escitalopram Oxalate [Lexapro] 20 mg PO DAILY hydrOXYzine PAMOATE 50 mg PO BID Amitriptyline HCl [Elavil] 150 mg PO BID Discharge Medication List Atorvastatin Calcium [Lipitor] 80 mg PO HS 10/17/17 [History] Carvedilol 25 mg PO BID 10/17/17 [History] Aspirin [Adult Low Dose Aspirin EC] 81 mg PO DAILY 12/10/17 [History] amLODIPine [Norvasc] 10 mg PO DAILY 12/10/17 [History] Carvedilol [Coreg*] 12.5 mg PO BID-W/MEALS tab 12/19/17 [Rx] Mirtazapine [Remeron] 7.5 mg PO HS 30 Days #30 tab 12/19/17 [Rx] Phenytoin Sodium Extended [Dilantin] 200 mg PO BID cap 12/19/17 [Rx] QUEtiapine [SEROquel] 200 mg PO HS 30 Days #30 tab 12/19/17 [Rx] Venlafaxine HCl ER [Effexor XR] 225 mg PO 1999 30 Days #90 cap.er.24h 12/19/17 [ Rx] levETIRAcetam [Keppra] 1,500 mg PO HS tab 12/19/17 [Rx] levETIRAcetam [Keppra] 750 mg PO QAM tab 12/19/17 [Rx] Follow up Appointment(s)/Referral(s): [facility] [Outside] - 12/25/17 10:00 am (12-25-17 @ 10:00 with Fred Arce 12-28-17 @ 4:30 with Deedee Valencia ) Srikanth Ervin MD [Primary Care Provider] - 1 Week (Follow-up with Dr. Ervin upon d/c r/t abn. UA and pt. c/o residual urine) Patient Instructions/Handouts: Bipolar Disorder (GEN), Depression (GEN), Suicide Prevention (GEN) Activity/Diet/Wound Care/Special Instructions: Activity and diet as tolerated. Avoid the use of street drugs and alcohol. Take all medications as prescribed. When you are in need of refills for your medications please contact your medical provider and/or outpatient psychiatrist to have this done. Please go to scheduled outpatient appointment for aftercare treatment. If symptoms return or become worse call the crisis line at [phone] and/or go to the nearest emergency room for an evaluation. Discharge Disposition: HOME SELF-CARE
[2017-12-19] MEDS ORDERED: VENLAFAXINE HCL ER 75 MG CAP PO SCH (20:00)
== END 2017-12-19 14:09 | disposition home or self-care (01) | DRG 885 ==
LOC: EC 15:41 → 3MHU 18:04
PROVIDERS: ADMIT Psychiatry & Neurology Psychiatry; ATTEND Psychiatry & Neurology Psychiatry
DX: F31.9 Bipolar disorder, unspecified (principal); G40.919 Epilepsy, unspecified, intractable, without status epilepticus; R45.851 Suicidal ideations; E78.5 Hyperlipidemia, unspecified; F17.200 Nicotine dependence, unspecified, uncomplicated; F41.0 Panic disorder [episodic paroxysmal anxiety]; F19.11 Other psychoactive substance abuse, in remission; Z86.73 Personal history of transient ischemic attack (TIA), and cerebral infarction without residual deficits; I10 Essential (primary) hypertension; Z79.82 Long term (current) use of aspirin; Z79.899 Other long term (current) drug therapy; Z80.42 Family history of malignant neoplasm of prostate; Z82.49 Family history of ischemic heart disease and other diseases of the circulatory system; Z98.42 Cataract extraction status, left eye; Z98.41 Cataract extraction status, right eye; Z86.010 Personal history of colon polyps
CPT/HCPCS: 80053; 80177; 80185; 80306; 81001; 82075; 84443; 85025; 99285

== ENCOUNTER 2018-01-16 15:31 | Inpatient (IN) | payer MEDICAID, OTHER ==
--- NOTE | 2018-01-16 16:00 | ED ---
General Adult HPI - General Chief complaint: Psychiatric Symptoms Stated complaint: mental Health Time Seen by Provider: 01/16/18 15:48 Source: patient, family, RN notes reviewed Mode of arrival: ambulatory Limitations: no limitations - History of Present Illness Initial comments: 52-year-old male presenting for mental health evaluation. Patient has history of bipolar depression. He has been admitted for suicidal ideation in the past. States that he does not want to live anymore, he is tired of his life. He states he has no children or family and wishes he was . Denies any suicide attempt today. Was brought in by his family. Denies any physical complaints. Denies EtOH or illicit drugs. - Related Data Home Medications Medication Instructions Recorded Confirmed Atorvastatin Calcium [Lipitor] 80 mg PO HS 10/17/17 01/16/18 Carvedilol 25 mg PO BID 10/17/17 01/16/18 amLODIPine [Norvasc] 10 mg PO DAILY 12/10/17 01/16/18 Aspirin EC [Ecotrin] 325 mg PO DAILY 01/16/18 01/16/18 Valsartan/Hydrochlorothiazide 1 tab PO DAILY 01/16/18 01/16/18 [Valsartan-Hctz 160-12.5 mg Tab] Venlafaxine HCl ER [Effexor XR] 225 mg PO HS 01/16/18 01/16/18 Previous Rx's Medication Instructions Recorded Mirtazapine [Remeron] 7.5 mg PO HS 30 Days #30 tab 12/19/17 Phenytoin Sodium Extended 200 mg PO BID cap 12/19/17 [Dilantin] QUEtiapine [SEROquel] 200 mg PO HS 30 Days #30 tab 12/19/17 levETIRAcetam [Keppra] 1,500 mg PO HS tab 12/19/17 levETIRAcetam [Keppra] 750 mg PO QAM tab 12/19/17 Allergies Allergy/AdvReac Type Severity Reaction Status Date / Time No Known Allergies Allergy Verified 01/16/18 21:27 Review of Systems ROS Statement: Those systems with pertinent positive or pertinent negative responses have been documented in the HPI. ROS Other: All systems not noted in ROS Statement are negative. Past Medical History Past Medical History: Hyperlipidemia, Seizure Disorder Additional Past Medical History / Comment(s): L intraparenchymal hemorrhage L lung pneumothorax , Migraine Headaches. History of Any Multi-Drug Resistant Organisms: None Reported Past Surgical History: No Surgical Hx Reported Additional Past Surgical History / Comment(s): COLONOSCOPY POLYPS REMOVED-NEG, bilateral cataract removal, R testicular surgery as a little boy. Past Anesthesia/Blood Transfusion Reactions: No Reported Reaction Additional Past Anesthesia/Blood Transfusion Reaction / Comment(s): Pt has never recieved blood. Past Psychological History: Anxiety, Bipolar, Depression, Panic Disorder Smoking Status: Current every day smoker Past Alcohol Use History: None Reported Past Drug Use History: None Reported - Past Family History Father Family Medical History: Cancer, Hyperlipidemia, Hypertension, Prostate Disorder Additional Family Medical History / Comment(s): PROSTATE CA Mother Family Medical History: Osteoarthritis (OA) Additional Family Medical History / Comment(s): MOM IS 71 General Exam Limitations: no limitations General appearance: alert, in no apparent distress Head exam: Present: atraumatic, normocephalic Eye exam: Present: normal appearance, PERRL ENT exam: Present: normal exam Neck exam: Present: normal inspection. Absent: tenderness Respiratory exam: Present: normal lung sounds bilaterally. Absent: respiratory distress, wheezes Cardiovascular Exam: Present: regular rate, normal rhythm GI/Abdominal exam: Present: soft. Absent: distended, tenderness Extremities exam: Present: normal inspection, normal capillary refill. Absent: pedal edema Neurological exam: Present: alert, oriented X3 Psychiatric exam: Present: depressed, agitated, suicidal ideation. Absent: homicidal ideation Skin exam: Present: warm, dry, intact. Absent: cyanosis, diaphoretic Course Vital Signs 01/16/18 15:42 Temperature 98.1 F Pulse Rate 76 Respiratory 18 Rate Blood Pressure 108/84 O2 Sat by Pulse 98 Oximetry Medical Decision Making - Medical Decision Making Patient evaluated by mental health, and will be admitted for further psychiatric treatment and evaluation. - Lab Data Lab Results 01/16/18 01/16/18 Range/Units 18:00 18:00 Urine Color Yellow Urine Appearance Clear (Clear) Urine pH 6.5 (5.0-8.0) Ur Specific [place] 1.013 (1.001-1.035) Urine Protein Negative (Negative) Urine Glucose (UA) Negative (Negative) Urine Ketones Negative (Negative) Urine Blood Negative (Negative) Urine Nitrite Negative (Negative) Urine Bilirubin Negative (Negative) Urine Urobilinogen <2.0 (<2.0) mg/dL Ur Leukocyte Esterase Negative (Negative) Urine Opiates Screen Not Detected (NotDetected) Ur Oxycodone Screen Not Detected (NotDetected) Urine Methadone Screen Not Detected (NotDetected) Ur Propoxyphene Screen Not Detected (NotDetected) Ur Barbiturates Screen Detected H (NotDetected) U Tricyclic Antidepress Detected H (NotDetected) Ur Phencyclidine Scrn Not Detected (NotDetected) Ur Amphetamines Screen Not Detected (NotDetected) U Methamphetamines Scrn Not Detected (NotDetected) U Benzodiazepines Scrn Detected H (NotDetected) Urine Cocaine Screen Not Detected (NotDetected) U Marijuana (THC) Screen Not Detected (NotDetected) Disposition Clinical Impression: Suicidal ideation, Bipolar disorder Disposition: ADMITTED IP TO THIS [facility] Condition: Stable Is patient prescribed a controlled substance at d/c from ED?: No Decision to Admit Reason: Admit from EC
[2018-01-16] MEDS ORDERED: LORazepam 2 MG/ML INJ IM STA (18:03)
[2018-01-16] MEDS ORDERED: levETIRAcetam 500 MG TAB PO STA (18:53)
[2018-01-16] MEDS ORDERED: VENLAFAXINE HCL ER 75 MG CAP PO STA (18:54)
[2018-01-16] MEDS ORDERED: QUEtiapine 200 MG TAB PO STA (18:54)
[2018-01-16] MEDS ORDERED: PHENYTOIN SODIUM EXTENDED 100 MG CAP PO STA (18:55)
[2018-01-16] MEDS ORDERED: MIRTAZAPINE 15 MG TAB PO STA (18:56)
[2018-01-16] MEDS ORDERED: ATORVASTATIN 80 MG TAB PO STA (18:56)
[2018-01-16] MEDS ORDERED: CARVEDILOL 12.5 MG TAB PO STA (18:57)
[2018-01-16 18:58] LABS: Amphetamine Screen,Urine Not Detected (NotDetected); Barbiturate Screen,Urine Detected (NotDetected); Benzodiazepines Screen,Urine Detected (NotDetected); Cocaine Screen,Urine Not Detected (NotDetected); Methadone Screen, Urine Not Detected (NotDetected); Opiate Screen,Urine Not Detected (NotDetected); Oxycodone Screen, Urine Not Detected (NotDetected); Phencyclidine Screen,Urine Not Detected (NotDetected); Tricyclic Antidepressant,Urine Detected (NotDetected); Urn Cannabinoid Scrn Not Detected (NotDetected)
[2018-01-16 20:39] VITALS: BMI 26.5
[2018-01-16] MEDS ORDERED: ZIPRASIDONE 20 MG VIAL IM PRN (21:05)
[2018-01-16] MEDS ORDERED: MAG HYDROX/AL HYDROX/SIMETH 30 ML CUP PO PRN (21:05)
[2018-01-16] MEDS ORDERED: MAGNESIUM HYDROXIDE 2,400 MG/10 ML CUP PO PRN (21:05)
[2018-01-16] MEDS ORDERED: LORazepam 1 MG TAB PO PRN (21:05)
[2018-01-16 21:33] LABS: Appearance,Urine Clear (Clear); Bilirubin,Urine Negative (Negative); Blood,Urine Negative (Negative); Color,Urine Yellow; Glucose,Urine (UA) Negative (Negative); Ketones,Urine Negative (Negative); Leukocyte Esterase,Urine Negative (Negative); Nitrite,Urine Negative (Negative); PH, Urine 6.5 (5.0-8.0); Protein,Urine Negative (Negative); Specific Gravity,Urine 1.013 (1.001-1.035); Urobilinogen,Urine <2.0 mg/dL (<2.0)
[2018-01-16] MEDS: QUEtiapine 200 MG TAB PO SCH (21:57)
[2018-01-16] MEDS: PHENYTOIN SODIUM EXTENDED 100 MG CAP PO SCH (21:57)
[2018-01-16] MEDS: MIRTAZAPINE 15 MG TAB PO SCH (21:57)
[2018-01-16] MEDS: VENLAFAXINE HCL ER 75 MG CAP PO SCH (21:57)
[2018-01-17] MEDS: ASPIRIN 325 MG TAB PO SCH (08:08)
[2018-01-17] MEDS: HYDROCHLOROTHIAZIDE 12.5 MG CAP PO SCH (08:09)
[2018-01-17] MEDS: amLODIPine 10 MG TAB PO SCH (08:09)
[2018-01-17] MEDS: CARVEDILOL 12.5 MG TAB PO SCH ×2 (08:09→17:38)
[2018-01-17] MEDS: VALSARTAN 160 MG TAB PO SCH (08:09)
[2018-01-17] MEDS: NICOTINE 21MG/24HR PATCH TRANSDERM SCH (08:11)
[2018-01-17] MEDS: PHENYTOIN SODIUM EXTENDED 100 MG CAP PO SCH ×2 (09:38→19:51)
[2018-01-17 09:53] LABS: Basophils # (A) 0.1 k/uL (0-0.2); Basophils % (A) 1 %; Eosinophils # (A) 0.2 k/uL (0-0.7); Eosinophils % (A) 3 %; HCT 47.9 % (39.0-53.0); HGB 15.5 gm/dL (13.0-17.5); Lymphocytes # (A) 2.3 k/uL (1.0-4.8); Lymphocytes % (A) 30 %; MCH 32.1 pg (25.0-35.0); MCHC 32.5 g/dL (31.0-37.0); MCV 98.9 fL (80.0-100.0); Mean Platelet Volume 6.5; Monocytes # (A) 0.5 k/uL (0-1.0); Monocytes % (A) 6 %; Neutrophils # (A) 4.5 k/uL (1.3-7.7); Neutrophils % (A) 59 %; Platelet Count 289 k/uL (150-450); RBC 4.84 m/uL (4.30-5.90); RDW 12.9 % (11.5-15.5); WBC 7.6 k/uL (3.8-10.6)
--- NOTE | 2018-01-17 09:56 | P.HP ---
Psychiatric H&P - . H&P Date: 01/17/18 History & Physical: Allergies Allergy/AdvReac Type Severity Reaction Status Date / Time No Known Allergies Allergy Verified 01/16/18 21:27 Vital Signs Temp 98.7 F 01/17/18 06:21 Pulse 95 01/17/18 08:12 Resp 20 01/17/18 08:12 BP 112/80 01/17/18 08:12 Pulse Ox 98 01/16/18 15:42 Intake & Output 01/16/18 01/17/18 01/17/18 18:59 06:59 18:59 Weight 79.379 kg 76.9 kg Laboratory Last Values Urine Color Yellow 01/16/18 18:00 Urine Appearance Clear (Clear) 01/16/18 18:00 Urine pH 6.5 (5.0-8.0) 01/16/18 18:00 Ur Specific [place] 1.013 (1.001-1.035) 01/16/18 18:00 Urine Protein Negative (Negative) 01/16/18 18:00 Urine Glucose (UA) Negative (Negative) 01/16/18 18:00 Urine Ketones Negative (Negative) 01/16/18 18:00 Urine Blood Negative (Negative) 01/16/18 18:00 Urine Nitrite Negative (Negative) 01/16/18 18:00 Urine Bilirubin Negative (Negative) 01/16/18 18:00 Urine Urobilinogen <2.0 mg/dL (<2.0) 01/16/18 18:00 Ur Leukocyte Esterase Negative (Negative) 01/16/18 18:00 Urine Opiates Screen Not Detected (NotDetected) 01/16/18 18:00 Ur Oxycodone Screen Not Detected (NotDetected) 01/16/18 18:00 Urine Methadone Screen Not Detected (NotDetected) 01/16/18 18:00 Ur Propoxyphene Screen Not Detected (NotDetected) 01/16/18 18:00 Ur Barbiturates Screen Detected (NotDetected) H 01/16/18 18:00 U Tricyclic Antidepress Detected (NotDetected) H 01/16/18 18:00 Ur Phencyclidine Scrn Not Detected (NotDetected) 01/16/18 18:00 Ur Amphetamines Screen Not Detected (NotDetected) 01/16/18 18:00 U Methamphetamines Scrn Not Detected (NotDetected) 01/16/18 18:00 U Benzodiazepines Scrn Detected (NotDetected) H 01/16/18 18:00 Urine Cocaine Screen Not Detected (NotDetected) 01/16/18 18:00 U Marijuana (THC) Screen Not Detected (NotDetected) 01/16/18 18:00 Assessment and Plan Assessment: Chief Complaint: [his a 52-year-old male presents emergency Department with chief complaint of depression, suicidal ideation. Patient states that he has been taken his medications as directed but has been having worsening depression. He states that he has no energy states that he is very down about his current life situation and that he has not been taking care of himself or his animals. Patient states that he has had some thoughts of hurting himself. Patient is here with family members with similar concerns. Patient denies any alcohol abuse. He did admit that he bought some Xanax recently because he states that he wanted to sleep or had thoughts of hurting herself with the medication. Patient has no physical complaints. The patient is a 51-year-old male who has history of CVA, hemiparesis, seizure disorder and recurrent depression. He presented to the psychiatric unit with complaints of worsening depression and suicidal ideation. 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 History of Any Multi-Drug Resistant Organisms: None Reported Past Surgical History: No Surgical Hx Reported Additional Past Surgical History / Comment(s): COLONOSCOPY POLYPS REMOVED-NEG, bilateral cataract removal, R testicular surgery as a little boy. Past Anesthesia/Blood Transfusion Reactions: No Reported Reaction Additional Past Anesthesia/Blood Transfusion Reaction / Comment(s): Pt has never recieved blood. Past Psychological History: Anxiety, Bipolar, Depression, Panic Disorder Smoking Status: Current every day smoker Past Alcohol Use History: None Reported Past Drug Use History: None Reported recent uses Xanax Allergies: [Is known known drug ALLERGIES] Social History: [Lives alone] Family History: [On contributory] Musculoskeletal Examination - Abnormal/Involuntary Movements: [ tremors] Strength: [greater than antigravity (greater than/equal to 3/5) in all extremities, right-sided weakness] Muscle Tone: [no impairment] Gait: [grossly normal] Station: [grossly normal] Mental Status Examination - General Appearance: [disheveled, casual, appears older than stated age] Speech/Language: [ slow, slurred, mumbling, hesitant] Attitude/Behavior: [cooperative, guarded, withdrawn] Mood: [depressed, anxious, fearful, hopelessness] Affect: [ flat, incongruent, blunted constricted] Orientation: [time, person, place situation] Thought Content: [wnl, delusions] Risk Factors: [suicidal (ideations, plan)] Perception: [wnl,] Thought Processes: [goal-oriented, concrete] Concentration/Attention Span: [impaired] [Per observation and interview with the patient] Recent Memory: [wnl, impaired] [1 out of 3 in 3 minutes] Remote Memory: [wnl, impaired] [past events, as related history] Intelligence: [below average] [based on history, based on vocabulary, syntax, grammar, and content] Judgement: [poor] [per patient's behavior/history of present illness] Insight: [fair] [understanding severity of illness/history of present illness] Admitting Diagnosis: [Bipolar affective disorder] Patient Strengths - Personal Skills: [Motivated related to get treatment] Achievements: [Lives in apartment and has so security disability] Steady employment/financial stability: [Social security disability and owns a pack] Housing stability: [Owns apartment] Able to vocalize needs: [Able to verbalize why he needs help] Motivation, determination, readiness for change: [He's tried medications since October and they have not gotten better and he wants help] Setting and pursuing goals, hopes, dreams, aspirations: [Goals are to feel better] Resources - social, interpersonal, monetary: [Stable on money and housing] Interpersonal relationships and supports available - friends: [Minute support] Patient Limitations: [medication, pathological/unsupported environment, no interests, intellectual impairment, complicated medical illness] Initial Plan of Care: [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 unable to explain and has Vistaril and reevaluate on 12/12/2017] Estimated Length of Stay: [7 days] Initial Discharge Plan: [[facility], referred to therapist] Prognosis: [guarded] Justification for Inpatient Hospitalization - [anxiety, depression resulting in significant loss of functioning.] [Dangerous to self [Emotional or behavioral conditions and complications requiring 24 hour medical and nursing care.] [Need for special drug therapy] [Failure of social functioning.] [Inability to meet basic life and health needs.] [Biomedical conditions and complications requiring 24 hour medical and nursing care.] [High relapse potential due to inability to control substance use.] [Failure of treatment at a lower level of care.] Continue Atorvastatin [Lipitor] 80 mg PO HS Carvedilol [Coreg] 25 mg PO BID Phenytoin Sodium Extended [Dilantin] 200 mg PO BID Aspirin EC [Ecotrin] 325 mg PO DAILY levETIRAcetam [Keppra] 750 mg PO HS levETIRAcetam [Keppra] 1,500 mg PO QAM Acetaminophen Tab [Tylenol] 650 mg PO Q4HR PRN tab PRN Reason: Pain/Discomfort Valsartan [Diovan] 160 mg PO DAILY tab Plan is to stop his amitriptyline and Lexapro and his anti-anxiety medicine that was prescribed by [facility] and we'll reevaluate his psychiatric symptoms on Time with Patient: Greater than 30 (1) Bipolar disorder Current Visit: Yes Status: Acute Priority: Low Code(s): F31.9 - BIPOLAR DISORDER, UNSPECIFIED SNOMED Code(s): 90244132 Plan: We met to the hospital and restarted his medications Time with Patient: Less than 30
[2018-01-17 10:25] LABS: Albumin 4.1 g/dL (3.5-5.0); Calcium 9.4 mg/dL (8.4-10.2); Potassium 4.3 mmol/L (3.5-5.1); Total Bilirubin 0.4 mg/dL (0.2-1.3); Total Protein 6.7 g/dL (6.3-8.2)
--- NOTE | 2018-01-17 11:49 | P.MDCNMH ---
History of Present Illness H&P Date: 01/17/18 Chief Complaint: Depression 52-year-old male who presented to the emergency room with a chief complaint of depression and suicidal thoughts. The patient has had multiple admissions to the mental health unit due to suicidal ideations. The patient states he was recently hospitalized and was started on a new medication for depression. He states that he thought it was starting to help but he had difficulties obtaining this medication from his pharmacy and his depression has worsened since that time. The patient denies shortness of breath, cough, or congestion. Denies chest pain or pressure. Denies nausea or vomiting. Denies lightheadedness or dizziness. Denies change in bowel habits. Patient states he occasionally gets a headache but it is relieved with Tylenol. The patient does report a 2 month history of having difficulty initiating urine stream. Patient states he feels that he is not able to empty his bladder completely and is only able to urinate a little bit at a time. He states he often has to change positions or sit on the toilet and feels that he has to "push out" his urine. He denies dysuria. Denies burning with urination. Denies malodorous urine. Denies flank pain. Denies hematuria. Urinalysis was performed on 01/16 which was unremarkable. Review of Systems GENERAL: Patient denies fever. Denies chills. EYES: Denies blurred vision. Denies vision changes. Denies eye pain. EARS, NOSE, MOUTH, & THROAT: Reports occasional headaches. Denies sore throat. Denies ear pain. RESPIRATORY: Denies cough. Denies shortness of breath. Denies sputum production. Denies hemoptysis. CARDIOVASCULAR: Denies chest pain or pressure. Denies palpitations. Denies arrhythmias. GASTROINTESTINAL: Denies abdominal pain. Denies diarrhea. Denies constipation. Denies nausea. Denies vomiting. Denies heartburn. Denies blood in the stool. GENITOURINARY: Reports difficulty initiating urine stream. Denies burning. Denies dysuria. Denies cloudy urine. Denies blood in the urine. MUSCULOSKELETAL: Denies myalgias. Denies joint swelling. Denies decreased range of motion beyond patients baseline. INTEGUMENTARY: Denies pruitis. Denies rash. PSYCHIATRIC: Reports depression. ENDOCRINE: Denies weight change. Denies polydipsia. Denies polyuria. HEMATOLOGIC: Denies bleeding disorders. Past Medical History Past Medical History: Hyperlipidemia, Seizure Disorder Additional Past Medical History / Comment(s): L intraparenchymal hemorrhage L lung pneumothorax , Migraine Headaches. History of Any Multi-Drug Resistant Organisms: None Reported Past Surgical History: No Surgical Hx Reported Additional Past Surgical History / Comment(s): COLONOSCOPY POLYPS REMOVED-NEG, bilateral cataract removal, R testicular surgery as a little boy. Past Anesthesia/Blood Transfusion Reactions: No Reported Reaction Additional Past Anesthesia/Blood Transfusion Reaction / Comment(s): Pt has never recieved blood. Past Psychological History: Anxiety, Bipolar, Depression, Panic Disorder Smoking Status: Current every day smoker Past Alcohol Use History: None Reported Past Drug Use History: None Reported - Past Family History Father Family Medical History: Cancer, Hyperlipidemia, Hypertension, Prostate Disorder Additional Family Medical History / Comment(s): PROSTATE CA Mother Family Medical History: Osteoarthritis (OA) Additional Family Medical History / Comment(s): MOM IS 71 Medications and Allergies Home Medications Medication Instructions Recorded Confirmed Type Atorvastatin Calcium [Lipitor] 80 mg PO HS 10/17/17 01/16/18 History Carvedilol 25 mg PO BID 10/17/17 01/16/18 History amLODIPine [Norvasc] 10 mg PO DAILY 12/10/17 01/16/18 History Mirtazapine [Remeron] 7.5 mg PO HS 30 Days #30 tab 12/19/17 01/16/18 Rx Phenytoin Sodium Extended 200 mg PO BID cap 12/19/17 01/16/18 Rx [Dilantin] QUEtiapine [SEROquel] 200 mg PO HS 30 Days #30 tab 12/19/17 01/16/18 Rx levETIRAcetam [Keppra] 1,500 mg PO HS tab 12/19/17 01/16/18 Rx levETIRAcetam [Keppra] 750 mg PO QAM tab 12/19/17 01/16/18 Rx Aspirin EC [Ecotrin] 325 mg PO DAILY 01/16/18 01/16/18 History Valsartan/Hydrochlorothiazide 1 tab PO DAILY 01/16/18 01/16/18 History [Valsartan-Hctz 160-12.5 mg Tab] Venlafaxine HCl ER [Effexor XR] 225 mg PO HS 01/16/18 01/16/18 History Allergies Allergy/AdvReac Type Severity Reaction Status Date / Time No Known Allergies Allergy Verified 01/16/18 21:27 Physical Exam Vitals: Vital Signs Temp Pulse Pulse Resp BP BP Pulse Ox 01/17/18 08:12 95 20 112/80 01/17/18 06:21 98.7 F 70 14 111/67 01/16/18 20:27 97.3 F L 74 18 117/74 01/16/18 15:42 98.1 F 76 18 108/84 98 Intake and Output 01/16/18 01/17/18 01/17/18 22:59 06:59 14:59 Other: Weight 76.9 kg GENERAL: This is a 52-year-old male in no apparent distress at the time of examination. Pleasant and cooperative. HEENT: Head is atraumatic, normocephalic. Pupils are equal, round, and reactive to light. Sclerae anicteric. Conjunctivae are clear. Mucus membranes of the mouth are moist. Neck is supple. RESPIRATORY: Clear to auscultation. No wheezes, rales, or rhonchi. No use of accessory muscles. Patient maintaining oxygen saturation greater than 92%. No chest wall tenderness is noted on palpation or with deep breathing. CARDIOVASCULAR: Regular rate and rhythm. S1 and S2 noted. No systolic or diastolic murmur auscultated. No JVD noted. No S3 or S4 noted. GASTROINTESTINAL: No distention noted. Abdomen soft and round. Normal active bowel sounds auscultated x 4 quadrants. No pain or tenderness noted upon palpation. INTEGUMENTARY: No cyanosis. No jaundice. No rashes noted. No cellulitis noted. EXTREMITIES: 2+ peripheral pulses. No evidence of peripheral edema. No calf tenderness noted. NEUROLOGIC: Cranial nerves II-XII intact. PSYCHIATRIC: Awake, alert, and oriented X 3. Cranial Nerve Examination - Cranial Nerves Cranial Nerve I- Olfactory: Intact Cranial Nerve II- Optic: Intact Cranial Nerve III- Oculomotor: Intact Cranial Nerve IV- Trochlear: Intact Cranial Nerve V- Trigeminal: Intact Cranial Nerve - Abducens: Intact Cranial Nerve VII- Facial: Intact Cranial Nerve VIII- Auditory: Intact Cranial Nerve IX- Glossopharyngeal: Intact Cranial Nerve X- Vagus: Intact Cranial Nerve XI- Accessory: Intact Cranial Nerve XII- Hypoglossal: Intact Results CBC & Chem 7: 01/17/18 09:33 01/17/18 09:33 Labs: Abnormal Lab Results - Last 24 Hours (Table) 01/16/18 01/17/18 Range/Units 18:00 09:33 Carbon Dioxide 31 H (22-30) mmol/L Glucose 137 H (74-99) mg/dL Triglycerides 188 H (<150) mg/dL Ur Barbiturates Screen Detected H (NotDetected) U Tricyclic Antidepress Detected H (NotDetected) U Benzodiazepines Scrn Detected H (NotDetected) Assessment and Plan Plan: ASSESSMENT: Depression with suicidal ideations Recurrent hospitalizations to mental health unit for depression/suicidal ideations History of CVA: Left intraparenchymal hemorrhage History of migraine headaches History of seizure disorder Nicotine dependence Difficulty initiating urinary stream, suspect secondary to BPH PLAN: Continue psychiatric care per Dr. Collazo Nicotine patch daily Home meds as appropriate Begin Flomax 0.4 mg daily Obtain ultrasound kidney/bladder Obtain postvoid residual Further recommendation pending patient's course Thank you for this consultation Please do not hesitate to contact us if you have questions or concerns Nurse practitioner note has been reviewed by physician. Signing provider agrees with the documented findings, assessment, and plan of care.
[2018-01-17] MEDS: ACETAMINOPHEN TAB 325 MG TAB PO PRN ×2 (14:45→19:38)
[2018-01-17] MEDS: TAMSULOSIN 0.4 MG CAP.ER.24H PO SCH (15:42)
--- NOTE | 2018-01-17 15:50 | US ---
EXAMINATION TYPE: US kidneys/renal and bladder DATE OF EXAM: 01/17/2018 COMPARISON: 12/05/2013 CLINICAL HISTORY: difficulty urinating. EXAM MEASUREMENTS: Right Kidney: 9.2 x 5.8 x 5.2 cm Left Kidney: 9.1 x 4.5 4.6 cm Post Void Residual Volume: 130 mL Right Kidney: No hydronephrosis, nephrolithiasis or masses seen Left Kidney: No hydronephrosis, nephrolithiasis or masses seen Bladder: wnl Normal Post Void Residual: no There is no evidence for hydronephrosis at this point in time. No nephrolithiasis is seen. No jourdan s are identified. The urinary bladder is anechoic. Bilateral ureteral jets are seen. IMPRESSION: No acute process.
[2018-01-17 19:19] LABS: Hemoglobin A1C 5.2 % (4.0-6.0)
[2018-01-17] MEDS: VENLAFAXINE HCL ER 75 MG CAP PO SCH ×2 (19:39→19:40)
[2018-01-17] MEDS: MIRTAZAPINE 15 MG TAB PO SCH (19:40)
[2018-01-17] MEDS: ATORVASTATIN 80 MG TAB PO SCH (19:40)
[2018-01-17] MEDS: QUEtiapine 200 MG TAB PO SCH ×2 (19:41→19:56)
[2018-01-18] MEDS: NICOTINE 21MG/24HR PATCH TRANSDERM SCH (07:37)
[2018-01-18] MEDS: amLODIPine 10 MG TAB PO SCH (07:38)
[2018-01-18] MEDS: ASPIRIN 325 MG TAB PO SCH (07:38)
[2018-01-18] MEDS: PHENYTOIN SODIUM EXTENDED 100 MG CAP PO SCH ×2 (07:38→20:04)
[2018-01-18] MEDS: CARVEDILOL 12.5 MG TAB PO SCH ×2 (07:38→16:56)
[2018-01-18] MEDS: HYDROCHLOROTHIAZIDE 12.5 MG CAP PO SCH (07:39)
[2018-01-18] MEDS: VALSARTAN 160 MG TAB PO SCH (07:39)
[2018-01-18] MEDS: TAMSULOSIN 0.4 MG CAP.ER.24H PO SCH (07:39)
--- NOTE | 2018-01-18 11:24 | P.PN ---
Subjective Progress Note Date: 01/18/18 Principal diagnosis: Major depressive disorder recurrent severe nonadherence to medications Today he states that he is tired and fatigued and wanted to go back to his original dose of Effexor to 225 mg by mouth daily at bedtime, Remeron 7.5 mg by mouth daily at bedtime and Seroquel 200 mg by mouth daily at bedtime. He remains depressed and hopeless helpless anxiety and fearful.. He has multiple somatic complaints on with a seizure disorder and does tend to ruminate about his prostate and urination. Objective - Vital Signs Vital signs: Vital Signs Temp 97.9 F 01/18/18 06:17 Pulse 90 01/18/18 07:43 Resp 18 01/18/18 07:43 BP 117/76 01/18/18 07:43 Pulse Ox 98 01/16/18 15:42 Intake & Output 01/17/18 01/18/18 01/18/18 18:59 06:59 18:59 Output Total 0 Balance 0 Output: Post Void Residual 0 - Labs CBC & Chem 7: 01/17/18 09:33 01/17/18 09:33 Assessment and Plan Assessment: Chief Complaint: [his a 52-year-old male presents emergency Department with chief complaint of depression, suicidal ideation. Patient states that he has been taken his medications as directed but has been having worsening depression. He states that he has no energy states that he is very down about his current life situation and that he has not been taking care of himself or his animals. Patient states that he has had some thoughts of hurting himself. Patient is here with family members with similar concerns. Patient denies any alcohol abuse. He did admit that he bought some Xanax recently because he states that he wanted to sleep or had thoughts of hurting herself with the medication. Patient has no physical complaints. The patient is a 51-year-old male who has history of CVA, hemiparesis, seizure disorder and recurrent depression. He presented to the psychiatric unit with complaints of worsening depression and suicidal ideation. 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 History of Any Multi-Drug Resistant Organisms: None Reported Past Surgical History: No Surgical Hx Reported Additional Past Surgical History / Comment(s): COLONOSCOPY POLYPS REMOVED-NEG, bilateral cataract removal, R testicular surgery as a little boy. Past Anesthesia/Blood Transfusion Reactions: No Reported Reaction Additional Past Anesthesia/Blood Transfusion Reaction / Comment(s): Pt has never recieved blood. Past Psychological History: Anxiety, Bipolar, Depression, Panic Disorder Smoking Status: Current every day smoker Past Alcohol Use History: None Reported Past Drug Use History: None Reported recent uses Xanax Allergies: [Is known known drug ALLERGIES] Social History: [Lives alone] Family History: [On contributory] Musculoskeletal Examination - Abnormal/Involuntary Movements: [ tremors] Strength: [greater than antigravity (greater than/equal to 3/5) in all extremities, right-sided weakness] Muscle Tone: [no impairment] Gait: [grossly normal] Station: [grossly normal] Mental Status Examination - General Appearance: [disheveled, casual, appears older than stated age] Speech/Language: [ slow, slurred, mumbling, hesitant] Attitude/Behavior: [cooperative, guarded, withdrawn] Mood: [depressed, anxious, fearful, hopelessness] Affect: [ flat, incongruent, blunted constricted] Orientation: [time, person, place situation] Thought Content: [wnl, delusions] Risk Factors: [suicidal (ideations, plan)] Perception: [wnl,] Thought Processes: [goal-oriented, concrete] Concentration/Attention Span: [impaired] [Per observation and interview with the patient] Recent Memory: [wnl, impaired] [1 out of 3 in 3 minutes] Remote Memory: [wnl, impaired] [past events, as related history] Intelligence: [below average] [based on history, based on vocabulary, syntax, grammar, and content] Judgement: [poor] [per patient's behavior/history of present illness] Insight: [fair] [understanding severity of illness/history of present illness] Admitting Diagnosis: [Bipolar affective disorder] Patient Strengths - Personal Skills: [Motivated related to get treatment] Achievements: [Lives in apartment and has so security disability] Steady employment/financial stability: [Social security disability and owns a pack] Housing stability: [Owns apartment] Able to vocalize needs: [Able to verbalize why he needs help] Motivation, determination, readiness for change: [He's tried medications since October and they have not gotten better and he wants help] Setting and pursuing goals, hopes, dreams, aspirations: [Goals are to feel better] Resources - social, interpersonal, monetary: [Stable on money and housing] Interpersonal relationships and supports available - friends: [Minute support] Patient Limitations: [medication, pathological/unsupported environment, no interests, intellectual impairment, complicated medical illness] Initial Plan of Care: [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 to 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 and has Vistaril and reevaluate on 12/12/2017] Estimated Length of Stay: 3 days] Initial Discharge Plan: [[facility], referred to therapist] Prognosis: [guarded] Justification for Inpatient Hospitalization - [anxiety, depression resulting in significant loss of functioning.] [Dangerous to self [Emotional or behavioral conditions and complications requiring 24 hour medical and nursing care.] [Need for special drug therapy] [Failure of social functioning.] [Inability to meet basic life and health needs.] [Biomedical conditions and complications requiring 24 hour medical and nursing care.] [High relapse potential due to inability to control substance use.] [Failure of treatment at a lower level of care.] Continue Atorvastatin [Lipitor] 80 mg PO HS Carvedilol [Coreg] 25 mg PO BID Phenytoin Sodium Extended [Dilantin] 200 mg PO BID Aspirin EC [Ecotrin] 325 mg PO DAILY levETIRAcetam [Keppra] 750 mg PO HS levETIRAcetam [Keppra] 1,500 mg PO QAM Acetaminophen Tab [Tylenol] 650 mg PO Q4HR PRN tab PRN Reason: Pain/Discomfort Valsartan [Diovan] 160 mg PO DAILY tab Time with Patient: Greater than 30 (1) Bipolar disorder Current Visit: Yes Status: Acute Priority: Low Code(s): F31.9 - BIPOLAR DISORDER, UNSPECIFIED SNOMED Code(s): 72895569 Plan: He is titrated to Effexor 225 by mouth daily at bedtime, Seroquel 200 mg by mouth daily at bedtime, Remeron 7.5 mg by mouth daily at bedtime. We'll follow and observe and expect an early discharge . Time with Patient: Less than 30
[2018-01-18] MEDS: VENLAFAXINE HCL ER 75 MG CAP PO SCH (20:03)
[2018-01-18] MEDS: MIRTAZAPINE 15 MG TAB PO SCH (20:04)
[2018-01-18] MEDS: PRAMIPEXOLE 0.5 MG TAB PO SCH (20:04)
[2018-01-18] MEDS: QUEtiapine 200 MG TAB PO SCH (20:05)
[2018-01-18] MEDS: ATORVASTATIN 80 MG TAB PO SCH (20:06)
[2018-01-19] MEDS: PHENYTOIN SODIUM EXTENDED 100 MG CAP PO SCH ×2 (07:30→20:20)
[2018-01-19] MEDS: NICOTINE 21MG/24HR PATCH TRANSDERM SCH (07:30)
[2018-01-19] MEDS: amLODIPine 10 MG TAB PO SCH (07:30)
[2018-01-19] MEDS: CARVEDILOL 12.5 MG TAB PO SCH ×2 (07:30→16:49)
[2018-01-19] MEDS: HYDROCHLOROTHIAZIDE 12.5 MG CAP PO SCH (07:31)
[2018-01-19] MEDS: ACETAMINOPHEN TAB 325 MG TAB PO PRN (07:31)
[2018-01-19] MEDS: VALSARTAN 160 MG TAB PO SCH (07:31)
[2018-01-19] MEDS: ASPIRIN 325 MG TAB PO SCH (07:31)
[2018-01-19] MEDS: TAMSULOSIN 0.4 MG CAP.ER.24H PO SCH (07:31)
--- NOTE | 2018-01-19 08:05 | P.PN ---
Progress Note - Text Progress Note Date: 01/19/18 Interval history: [place] [facility] [place]. He reports that he felt his medications were working for him as an outpatient, he ran out of the medications. He seems to be tolerating the current psychotropic medications well. He does describe his mood is doing better currently. Mental status exam: He is alert and cooperative with the interview. Speech is fluent, not rapid or pressured. Thought processes are organized. His mood is described as better today. He does not verbalize any thoughts of harm to self or others. No evidence of active psychosis or agitation. Plan: Patient will be maintained on current psychotropic medication regimen. Continue to monitor for any medication side effects and monitor his ongoing response to treatment.
[2018-01-19] MEDS: PRAMIPEXOLE 0.5 MG TAB PO SCH (20:20)
[2018-01-19] MEDS: VENLAFAXINE HCL ER 75 MG CAP PO SCH (20:20)
[2018-01-19] MEDS: ATORVASTATIN 80 MG TAB PO SCH (20:20)
[2018-01-19] MEDS: QUEtiapine 200 MG TAB PO SCH (20:20)
[2018-01-19] MEDS: MIRTAZAPINE 15 MG TAB PO SCH (20:24)
[2018-01-20] MEDS: ASPIRIN 325 MG TAB PO SCH (07:50)
[2018-01-20] MEDS: TAMSULOSIN 0.4 MG CAP.ER.24H PO SCH (07:50)
[2018-01-20] MEDS: CARVEDILOL 12.5 MG TAB PO SCH ×2 (07:50→16:34)
[2018-01-20] MEDS: PHENYTOIN SODIUM EXTENDED 100 MG CAP PO SCH ×2 (07:50→20:59)
[2018-01-20] MEDS: amLODIPine 10 MG TAB PO SCH (07:50)
[2018-01-20] MEDS: NICOTINE 21MG/24HR PATCH TRANSDERM SCH (07:50)
[2018-01-20] MEDS: VALSARTAN 160 MG TAB PO SCH (07:50)
[2018-01-20] MEDS: HYDROCHLOROTHIAZIDE 12.5 MG CAP PO SCH (07:50)
--- NOTE | 2018-01-20 13:08 | P.PN ---
Progress Note - Text Progress Note Date: 01/20/18 Interval history: Patient is seen in [facility] today again. He says he slept about 5 hours last night, relays his stomach was kind of upset. He currently feels better and he is eating well. He does not voice any adverse psychotropic medication side effects. His mood overall seems to be improved. Mental status exam: He is alert and cooperative with the interview. His speech is fluent, not rapid or pressured. His affect overall is restricted. His mood he seems to describe is improved. He denies any thoughts of harm to self. He does not voice any thoughts of harm to others. No evidence of psychosis or agitation. Plan: Patient be maintained on current psychotropic medication regimen. Continue to monitor for any medication side effects and monitor his ongoing response to treatment.
[2018-01-20] MEDS: ATORVASTATIN 80 MG TAB PO SCH (20:51)
[2018-01-20] MEDS: QUEtiapine 200 MG TAB PO SCH (20:52)
[2018-01-20] MEDS: PRAMIPEXOLE 0.5 MG TAB PO SCH (20:52)
[2018-01-20] MEDS: MIRTAZAPINE 15 MG TAB PO SCH (20:53)
[2018-01-20] MEDS: VENLAFAXINE HCL ER 75 MG CAP PO SCH (20:53)
[2018-01-21] MEDS: NICOTINE 21MG/24HR PATCH TRANSDERM SCH (08:57)
[2018-01-21] MEDS: PHENYTOIN SODIUM EXTENDED 100 MG CAP PO SCH ×2 (08:58→20:58)
[2018-01-21] MEDS: amLODIPine 10 MG TAB PO SCH (08:58)
[2018-01-21] MEDS: ASPIRIN 325 MG TAB PO SCH (08:58)
[2018-01-21] MEDS: TAMSULOSIN 0.4 MG CAP.ER.24H PO SCH (08:59)
[2018-01-21] MEDS: CARVEDILOL 12.5 MG TAB PO SCH ×2 (08:59→17:17)
[2018-01-21] MEDS: HYDROCHLOROTHIAZIDE 12.5 MG CAP PO SCH (08:59)
[2018-01-21] MEDS: VALSARTAN 160 MG TAB PO SCH (08:59)
--- NOTE | 2018-01-21 12:26 | P.PN ---
Subjective Progress Note Date: 01/21/18 Principal diagnosis: Major depressive disorder recurrent severe nonadherence to medications Today he states that he is tired and fatigued and wanted to go back to his original dose of Effexor to 225 mg by mouth daily at bedtime, Remeron 7.5 mg by mouth daily at bedtime and Seroquel 200 mg by mouth daily at bedtime. He remains depressed and hopeless helpless anxiety and fearful.. He has multiple somatic complaints on with a seizure disorder and does tend to ruminate about his prostate and urination. Objective - Vital Signs Vital signs: Vital Signs Temp 97.9 F 01/21/18 06:24 Pulse 88 01/21/18 09:02 Resp 14 01/21/18 06:24 BP 136/86 01/21/18 09:02 Pulse Ox 98 01/16/18 15:42 Intake & Output 01/20/18 01/21/18 01/21/18 18:59 06:59 18:59 Weight 79.7 kg - Labs CBC & Chem 7: 01/17/18 09:33 01/17/18 09:33 Assessment and Plan Assessment: Chief Complaint: [his a 52-year-old male presents emergency Department with chief complaint of depression, suicidal ideation. Patient states that he has been taken his medications as directed but has been having worsening depression. He states that he has no energy states that he is very down about his current life situation and that he has not been taking care of himself or his animals. Patient states that he has had some thoughts of hurting himself. Patient is here with family members with similar concerns. Patient denies any alcohol abuse. He did admit that he bought some Xanax recently because he states that he wanted to sleep or had thoughts of hurting herself with the medication. Patient has no physical complaints. The patient is a 51-year-old male who has history of CVA, hemiparesis, seizure disorder and recurrent depression. He presented to the psychiatric unit with complaints of worsening depression and suicidal ideation. 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 History of Any Multi-Drug Resistant Organisms: None Reported Past Surgical History: No Surgical Hx Reported Additional Past Surgical History / Comment(s): COLONOSCOPY POLYPS REMOVED-NEG, bilateral cataract removal, R testicular surgery as a little boy. Past Anesthesia/Blood Transfusion Reactions: No Reported Reaction Additional Past Anesthesia/Blood Transfusion Reaction / Comment(s): Pt has never recieved blood. Past Psychological History: Anxiety, Bipolar, Depression, Panic Disorder Smoking Status: Current every day smoker Past Alcohol Use History: None Reported Past Drug Use History: None Reported recent uses Xanax Allergies: [Is known known drug ALLERGIES] Social History: [Lives alone] Family History: [On contributory] Musculoskeletal Examination - Abnormal/Involuntary Movements: [ tremors] Strength: [greater than antigravity (greater than/equal to 3/5) in all extremities, right-sided weakness] Muscle Tone: [no impairment] Gait: [grossly normal] Station: [grossly normal] Mental Status Examination - General Appearance: [disheveled, casual, appears older than stated age] Speech/Language: [ slow, slurred, mumbling, hesitant] Attitude/Behavior: [cooperative, guarded, withdrawn] Mood: [depressed, anxious, fearful, hopelessness] Affect: [ flat, incongruent, blunted constricted] Orientation: [time, person, place situation] Thought Content: [wnl, delusions] Risk Factors: [suicidal (ideations, plan)] Perception: [wnl,] Thought Processes: [goal-oriented, concrete] Concentration/Attention Span: [impaired] [Per observation and interview with the patient] Recent Memory: [wnl, impaired] [1 out of 3 in 3 minutes] Remote Memory: [wnl, impaired] [past events, as related history] Intelligence: [below average] [based on history, based on vocabulary, syntax, grammar, and content] Judgement: [poor] [per patient's behavior/history of present illness] Insight: [fair] [understanding severity of illness/history of present illness] Admitting Diagnosis: [Bipolar affective disorder] Patient Strengths - Personal Skills: [Motivated related to get treatment] Achievements: [Lives in apartment and has so security disability] Steady employment/financial stability: [Social security disability and owns a pack] Housing stability: [Owns apartment] Able to vocalize needs: [Able to verbalize why he needs help] Motivation, determination, readiness for change: [He's tried medications since October and they have not gotten better and he wants help] Setting and pursuing goals, hopes, dreams, aspirations: [Goals are to feel better] Resources - social, interpersonal, monetary: [Stable on money and housing] Interpersonal relationships and supports available - friends: [Minute support] Patient Limitations: [medication, pathological/unsupported environment, no interests, intellectual impairment, complicated medical illness] Initial Plan of Care: [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 to 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 and has Vistaril and reevaluate on 12/12/2017] Estimated Length of Stay: 3 days] Initial Discharge Plan: [[facility], referred to therapist] Prognosis: [guarded] Justification for Inpatient Hospitalization - [anxiety, depression resulting in significant loss of functioning.] [Dangerous to self [Emotional or behavioral conditions and complications requiring 24 hour medical and nursing care.] [Need for special drug therapy] [Failure of social functioning.] [Inability to meet basic life and health needs.] [Biomedical conditions and complications requiring 24 hour medical and nursing care.] [High relapse potential due to inability to control substance use.] [Failure of treatment at a lower level of care.] Continue Atorvastatin [Lipitor] 80 mg PO HS Carvedilol [Coreg] 25 mg PO BID Phenytoin Sodium Extended [Dilantin] 200 mg PO BID Aspirin EC [Ecotrin] 325 mg PO DAILY levETIRAcetam [Keppra] 750 mg PO HS levETIRAcetam [Keppra] 1,500 mg PO QAM Acetaminophen Tab [Tylenol] 650 mg PO Q4HR PRN tab PRN Reason: Pain/Discomfort Valsartan [Diovan] 160 mg PO DAILY tab Time with Patient: Greater than 30 (1) Bipolar disorder Current Visit: Yes Status: Acute Priority: Low Code(s): F31.9 - BIPOLAR DISORDER, UNSPECIFIED SNOMED Code(s): 54127385 Plan: He is titrated to Effexor 225 by mouth daily in am, Seroquel 200 mg by mouth daily at bedtime, Remeron 7.5 mg by mouth daily at bedtime. We'll follow and observe and expect an early discharge Stop Mirapex . Time with Patient: Greater than 30
[2018-01-21] MEDS: ACETAMINOPHEN TAB 325 MG TAB PO PRN (12:30)
[2018-01-21] MEDS: ATORVASTATIN 80 MG TAB PO SCH (20:58)
[2018-01-21] MEDS: QUEtiapine 200 MG TAB PO SCH (20:59)
[2018-01-21] MEDS: MIRTAZAPINE 15 MG TAB PO SCH (20:59)
[2018-01-22 06:26] VITALS: RESP 18
[2018-01-22] MEDS: VENLAFAXINE HCL ER 75 MG CAP PO SCH (08:36)
[2018-01-22] MEDS: CARVEDILOL 12.5 MG TAB PO SCH ×2 (08:36→16:57)
[2018-01-22] MEDS: ASPIRIN 325 MG TAB PO SCH (08:36)
[2018-01-22] MEDS: PHENYTOIN SODIUM EXTENDED 100 MG CAP PO SCH ×2 (08:36→21:19)
[2018-01-22] MEDS: amLODIPine 10 MG TAB PO SCH (08:36)
[2018-01-22] MEDS: NICOTINE 21MG/24HR PATCH TRANSDERM SCH (08:36)
[2018-01-22] MEDS: VALSARTAN 160 MG TAB PO SCH (08:37)
[2018-01-22] MEDS: TAMSULOSIN 0.4 MG CAP.ER.24H PO SCH (08:37)
[2018-01-22] MEDS: HYDROCHLOROTHIAZIDE 12.5 MG CAP PO SCH (08:37)
--- NOTE | 2018-01-22 12:14 | P.PN ---
Subjective Progress Note Date: 01/22/18 Principal diagnosis: Major depressive disorder recurrent severe nonadherence to medications Today he states that he is tired and fatigued and wanted to go back to his original dose of Effexor to 225 mg by mouth daily at bedtime, Remeron 7.5 mg by mouth daily at bedtime and Seroquel 200 mg by mouth daily at bedtime. He remains depressed and hopeless helpless anxiety and fearful.. He has multiple somatic complaints on with a seizure disorder and does tend to ruminate about his prostate and urination. Objective - Vital Signs Vital signs: Vital Signs Temp 97.5 F L 01/22/18 06:25 Pulse 73 01/22/18 06:25 Resp 18 01/22/18 06:25 BP 104/57 01/22/18 06:25 Pulse Ox 98 01/16/18 15:42 - Labs CBC & Chem 7: 01/17/18 09:33 01/17/18 09:33 Assessment and Plan Assessment: Chief Complaint: [his a 52-year-old male presents emergency Department with chief complaint of depression, suicidal ideation. Patient states that he has been taken his medications as directed but has been having worsening depression. He states that he has no energy states that he is very down about his current life situation and that he has not been taking care of himself or his animals. Patient states that he has had some thoughts of hurting himself. Patient is here with family members with similar concerns. Patient denies any alcohol abuse. He did admit that he bought some Xanax recently because he states that he wanted to sleep or had thoughts of hurting herself with the medication. Patient has no physical complaints. The patient is a 51-year-old male who has history of CVA, hemiparesis, seizure disorder and recurrent depression. He presented to the psychiatric unit with complaints of worsening depression and suicidal ideation. 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 History of Any Multi-Drug Resistant Organisms: None Reported Past Surgical History: No Surgical Hx Reported Additional Past Surgical History / Comment(s): COLONOSCOPY POLYPS REMOVED-NEG, bilateral cataract removal, R testicular surgery as a little boy. Past Anesthesia/Blood Transfusion Reactions: No Reported Reaction Additional Past Anesthesia/Blood Transfusion Reaction / Comment(s): Pt has never recieved blood. Past Psychological History: Anxiety, Bipolar, Depression, Panic Disorder Smoking Status: Current every day smoker Past Alcohol Use History: None Reported Past Drug Use History: None Reported recent uses Xanax Allergies: [Is known known drug ALLERGIES] Social History: [Lives alone] Family History: [On contributory] Musculoskeletal Examination - Abnormal/Involuntary Movements: [ tremors] Strength: [greater than antigravity (greater than/equal to 3/5) in all extremities, right-sided weakness] Muscle Tone: [no impairment] Gait: [grossly normal] Station: [grossly normal] Mental Status Examination - General Appearance: [disheveled, casual, appears older than stated age] Speech/Language: [ slow, slurred, mumbling, hesitant] Attitude/Behavior: [cooperative, guarded, withdrawn] Mood: [depressed, anxious, fearful, hopelessness] Affect: [ flat, incongruent, blunted constricted] Orientation: [time, person, place situation] Thought Content: [wnl, delusions] Risk Factors: [suicidal (ideations, plan)] Perception: [wnl,] Thought Processes: [goal-oriented, concrete] Concentration/Attention Span: [impaired] [Per observation and interview with the patient] Recent Memory: [wnl, impaired] [1 out of 3 in 3 minutes] Remote Memory: [wnl, impaired] [past events, as related history] Intelligence: [below average] [based on history, based on vocabulary, syntax, grammar, and content] Judgement: [poor] [per patient's behavior/history of present illness] Insight: [fair] [understanding severity of illness/history of present illness] Admitting Diagnosis: [Bipolar affective disorder] Patient Strengths - Personal Skills: [Motivated related to get treatment] Achievements: [Lives in apartment and has so security disability] Steady employment/financial stability: [Social security disability and owns a pack] Housing stability: [Owns apartment] Able to vocalize needs: [Able to verbalize why he needs help] Motivation, determination, readiness for change: [He's tried medications since October and they have not gotten better and he wants help] Setting and pursuing goals, hopes, dreams, aspirations: [Goals are to feel better] Resources - social, interpersonal, monetary: [Stable on money and housing] Interpersonal relationships and supports available - friends: [Minute support] Patient Limitations: [medication, pathological/unsupported environment, no interests, intellectual impairment, complicated medical illness] Initial Plan of Care: [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 unable to explain and has Vistaril and reevaluate on 12/12/2017] Estimated Length of Stay: 3 days] Initial Discharge Plan: [[facility], referred to therapist] Prognosis: [guarded] Justification for Inpatient Hospitalization - [anxiety, depression resulting in significant loss of functioning.] [Dangerous to self [Emotional or behavioral conditions and complications requiring 24 hour medical and nursing care.] [Need for special drug therapy] [Failure of social functioning.] [Inability to meet basic life and health needs.] [Biomedical conditions and complications requiring 24 hour medical and nursing care.] [High relapse potential due to inability to control substance use.] [Failure of treatment at a lower level of care.] Continue Atorvastatin [Lipitor] 80 mg PO HS Carvedilol [Coreg] 25 mg PO BID Phenytoin Sodium Extended [Dilantin] 200 mg PO BID Aspirin EC [Ecotrin] 325 mg PO DAILY levETIRAcetam [Keppra] 750 mg PO HS levETIRAcetam [Keppra] 1,500 mg PO QAM Acetaminophen Tab [Tylenol] 650 mg PO Q4HR PRN tab PRN Reason: Pain/Discomfort Valsartan [Diovan] 160 mg PO DAILY tab Time with Patient: Greater than 30 (1) Bipolar disorder Current Visit: Yes Status: Acute Priority: Low Code(s): F31.9 - BIPOLAR DISORDER, UNSPECIFIED SNOMED Code(s): 85657756 Plan: He is titrated to Effexor 225 by mouth daily in am, Seroquel 200 mg by mouth daily at bedtime, Remeron 15 mg by mouth daily at bedtime. We'll follow and observe and expect an early discharge Stop Mirapex. He stated that he is afraid to go home and his anxiety has gone extremely high and therefore I am going to delay his discharge until tomorrow he had his first good night sleep last night. . Time with Patient: Less than 30
[2018-01-22] MEDS: ACETAMINOPHEN TAB 325 MG TAB PO PRN (15:25)
[2018-01-22] MEDS: MIRTAZAPINE 15 MG TAB PO SCH (21:19)
[2018-01-22] MEDS: QUEtiapine 200 MG TAB PO SCH (21:19)
[2018-01-22] MEDS: ATORVASTATIN 80 MG TAB PO SCH (21:20)
[2018-01-23 06:50] VITALS: BP 117/65; PULSE 69; TEMP 97.9
[2018-01-23] MEDS: NICOTINE 21MG/24HR PATCH TRANSDERM SCH (09:15)
[2018-01-23] MEDS: CARVEDILOL 12.5 MG TAB PO SCH (09:16)
[2018-01-23] MEDS: VALSARTAN 160 MG TAB PO SCH (09:17)
[2018-01-23] MEDS: HYDROCHLOROTHIAZIDE 12.5 MG CAP PO SCH (09:17)
[2018-01-23] MEDS: ASPIRIN 325 MG TAB PO SCH (09:17)
[2018-01-23] MEDS: amLODIPine 10 MG TAB PO SCH (09:17)
[2018-01-23] MEDS: VENLAFAXINE HCL ER 75 MG CAP PO SCH (09:22)
[2018-01-23] MEDS: PHENYTOIN SODIUM EXTENDED 100 MG CAP PO SCH (09:22)
[2018-01-23] MEDS: TAMSULOSIN 0.4 MG CAP.ER.24H PO SCH (09:22)
--- NOTE | 2018-01-23 09:38 | P.DS ---
Providers Date of admission: 01/16/18 19:53 Expected date of discharge: 01/23/18 Attending physician: Subhash Collazo DO Consults: 01/16/18 21:05 Consult Physician Routine Consulting Provider: Srikanth Ervin Consult Reason/Comments: H&P for mental health admission Do you want consulting provider notified?: Already Contacted Primary care physician: Srikanth Ervin - Discharge Diagnosis(es) (1) Bipolar disorder hief Complaint: [his a 52-year-old male presents emergency Department with chief complaint of depression, suicidal ideation. Patient states that he has been taken his medications as directed but has been having worsening depression. He states that he has no energy states that he is very down about his current life situation and that he has not been taking care of himself or his animals. Patient states that he has had some thoughts of hurting himself. Patient is here with family members with similar concerns. Patient denies any alcohol abuse. He did admit that he bought some Xanax recently because he states that he wanted to sleep or had thoughts of hurting herself with the medication. Patient has no physical complaints. The patient is a 51-year-old male who has history of CVA, hemiparesis, seizure disorder and recurrent depression. He presented to the psychiatric unit with complaints of worsening depression and suicidal ideation. 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 History of Any Multi-Drug Resistant Organisms: None Reported Past Surgical History: No Surgical Hx Reported Additional Past Surgical History / Comment(s): COLONOSCOPY POLYPS REMOVED-NEG, bilateral cataract removal, R testicular surgery as a little boy. Past Anesthesia/Blood Transfusion Reactions: No Reported Reaction Additional Past Anesthesia/Blood Transfusion Reaction / Comment(s): Pt has never recieved blood. Past Psychological History: Anxiety, Bipolar, Depression, Panic Disorder Smoking Status: Current every day smoker Past Alcohol Use History: None Reported Past Drug Use History: None Reported recent uses Xanax Allergies: [Is known known drug ALLERGIES] Social History: [Lives alone] Family History: [NOn contributory] Current Visit: Yes Status: Chronic Priority: Low Hospital Course: This is a 52-year-old male who is admitted because of not getting proper medications and worsening of depression. He was reinstituted on his medications which included Effexor, Remeron as outlined below and was able to be stabilized. His sleep was stabilized with the Remeron and Seroquel combination and he had no adverse consequences to the age. He was able to sleep Eat and function well. Mental status examination at the time of discharge The patient presents alert, pleasant, and cooperative. There calmly seated without any agitated behavior. He reports that [his] mood is good. Affect is congruent and euthymic. [He] deny having any suicidal or homicidal ideation intent or plan. [He] denies any auditory or visual hallucinations. There is no evidence of any delusional thought content. [His] thought process is linear and goal-directed. [His] speech is fluent and nonpressured. [His] memory and concentration is grossly intact for the purposes of this session. He has a mental health appointment made and therapist and psychiatrist are listed below. Diagnoses at time of discharge: Bipolar affective disorder depressive type which is mild and in early remission Patient Condition at Discharge: Stable Plan - Discharge Summary Discharge Rx Participant: Yes New Discharge Prescriptions: New Hydrochlorothiazide [Hydrodiuril] 12.5 mg PO DAILY cap Mirtazapine [Remeron] 15 mg PO HS 30 Days #30 tab Tamsulosin [Flomax] 0.4 mg PO PC-BRKFST 30 Days #30 cap.er.24h Venlafaxine HCl ER [Effexor XR] 225 mg PO DAILY cap.er.24h Continue Atorvastatin Calcium [Lipitor] 80 mg PO HS Carvedilol 25 mg PO BID amLODIPine [Norvasc] 10 mg PO DAILY levETIRAcetam [Keppra] 750 mg PO QAM tab levETIRAcetam [Keppra] 1,500 mg PO HS tab Phenytoin Sodium Extended [Dilantin] 200 mg PO BID cap Valsartan/Hydrochlorothiazide [Valsartan-Hctz 160-12.5 mg Tab] 1 tab PO DAILY QUEtiapine [SEROquel] 200 mg PO HS 30 Days #30 tab Venlafaxine HCl ER [Effexor XR] 225 mg PO HS 30 Days #90 cap.er.24h Discontinued Mirtazapine [Remeron] 7.5 mg PO HS 30 Days #30 tab Aspirin EC [Ecotrin] 325 mg PO DAILY Discharge Medication List Atorvastatin Calcium [Lipitor] 80 mg PO HS 10/17/17 [History] Carvedilol 25 mg PO BID 10/17/17 [History] amLODIPine [Norvasc] 10 mg PO DAILY 12/10/17 [History] Phenytoin Sodium Extended [Dilantin] 200 mg PO BID cap 12/19/17 [Rx] levETIRAcetam [Keppra] 1,500 mg PO HS tab 12/19/17 [Rx] levETIRAcetam [Keppra] 750 mg PO QAM tab 12/19/17 [Rx] Valsartan/Hydrochlorothiazide [Valsartan-Hctz 160-12.5 mg Tab] 1 tab PO DAILY [History] Hydrochlorothiazide [Hydrodiuril] 12.5 mg PO DAILY cap 01/23/18 [Rx] Mirtazapine [Remeron] 15 mg PO HS 30 Days #30 tab 01/23/18 [Rx] QUEtiapine [SEROquel] 200 mg PO HS 30 Days #30 tab 01/23/18 [Rx] Tamsulosin [Flomax] 0.4 mg PO PC-BRKFST 30 Days #30 cap.er.24h 01/23/18 [Rx] Venlafaxine HCl ER [Effexor XR] 225 mg PO DAILY cap.er.24h 01/23/18 [Rx] Venlafaxine HCl ER [Effexor XR] 225 mg PO HS 30 Days #90 cap.er.24h 01/23/18 [Rx ] Follow up Appointment(s)/Referral(s): [facility] [Outside] - 01/25/18 1:00 pm (01/25 @ 13:00 with Fred Mendez 01-25-18 @ 12:30 with DUY Foster ) Srikanth Ervin MD [Primary Care Provider] - 1-2 days Care Plan Goals (MU): Remove all firearms from the home; Refrain from street drugs and alcohol; Diet and activity as tolerated; Follow-up with your PCP in 1-2 days; Keep all scheduled follow-up appointments for continuity of care; When you need prescription refills, contact your PCP or aftercare psychiatrist; If you have any problems or worsen, call the Crisis Line at or go to the nearest for a psychiatric evaluation. Discharge Disposition: HOME SELF-CARE
== END 2018-01-23 14:16 | disposition home or self-care (01) | DRG 885 ==
LOC: EC 15:31 → 3MHU 19:53
PROVIDERS: ADMIT Psychiatry & Neurology Psychiatry; ATTEND Psychiatry & Neurology Psychiatry
DX: F31.30 Bipolar disorder, current episode depressed, mild or moderate severity, unspecified (principal); I69.359 Hemiplegia and hemiparesis following cerebral infarction affecting unspecified side; R45.851 Suicidal ideations; E78.5 Hyperlipidemia, unspecified; F17.200 Nicotine dependence, unspecified, uncomplicated; F41.0 Panic disorder [episodic paroxysmal anxiety]; G40.909 Epilepsy, unspecified, not intractable, without status epilepticus; G43.909 Migraine, unspecified, not intractable, without status migrainosus; Z91.128 Patient's intentional underdosing of medication regimen for other reason; Z79.82 Long term (current) use of aspirin; Z79.899 Other long term (current) drug therapy; Z86.010 Personal history of colon polyps; Z98.42 Cataract extraction status, left eye; Z98.41 Cataract extraction status, right eye; Z96.1 Presence of intraocular lens; Z80.42 Family history of malignant neoplasm of prostate; Z82.49 Family history of ischemic heart disease and other diseases of the circulatory system; Z82.61 Family history of arthritis; Z84.89 Family history of other specified conditions
CPT/HCPCS: 76770; 80053; 80061; 80185; 80306; 81003; 82075; 83036; 84443; 85025; 99285

== ENCOUNTER 2018-03-09 13:19 | Emergency (ER) | payer OTHER ==
[2018-03-09 13:29] VITALS: RESP 18
[2018-03-09] MEDS ORDERED: METOCLOPRAMIDE 5 MG/ML 2 ML VIAL IVP STA (13:56)
[2018-03-09] MEDS ORDERED: HYDROmorphone 0.5 MG/0.5 ML SYRINGE IVP STA (13:56)
[2018-03-09] MEDS ORDERED: diphenhydrAMINE 50 MG/ML 1 ML VIAL IVP STA (13:56)
[2018-03-09] MEDS ORDERED: SODIUM CHLORIDE 0.9% 500 ML 500 ML IV STA (13:56)
--- NOTE | 2018-03-09 13:59 | ED ---
General Adult HPI - General Chief complaint: Headache Stated complaint: Headache poss from medication Time Seen by Provider: 03/09/18 13:51 Source: patient, RN notes reviewed, old records reviewed Mode of arrival: ambulatory Limitations: no limitations - History of Present Illness Initial comments: 52-year-old male presenting with 10 day history of headache. Headache is right frontal. Patient does have history of chronic headaches although this is more severe. Describes it as an electrical sensation. Patient was recently started on Effexor, this medication was discontinued approximately 10 days ago. He was started on this for depression and mental health issues. He has been evaluated this institution for mental health issues on multiple occasions. He also has history of seizure disorder as well as intracranial hemorrhage. He's not currently on any blood thinners. Denies nausea vomiting. Denies focal numbness or weakness. - Related Data Home Medications Medication Instructions Recorded Confirmed Atorvastatin Calcium [Lipitor] 80 mg PO HS 10/17/17 03/09/18 Carvedilol 25 mg PO BID 10/17/17 03/09/18 amLODIPine [Norvasc] 10 mg PO DAILY 12/10/17 03/09/18 Aspirin EC [Ecotrin] 325 mg PO DAILY 03/09/18 03/09/18 Cyclobenzaprine [Flexeril] 10 mg PO TID 03/09/18 03/09/18 hydrALAZINE HCL [Apresoline] 50 mg PO BID 03/09/18 03/09/18 Previous Rx's Medication Instructions Recorded Phenytoin Sodium Extended 200 mg PO BID cap 12/19/17 [Dilantin] levETIRAcetam [Keppra] 1,500 mg PO HS tab 12/19/17 levETIRAcetam [Keppra] 750 mg PO QAM tab 12/19/17 Hydrochlorothiazide [Hydrodiuril] 12.5 mg PO DAILY cap 01/23/18 Mirtazapine [Remeron] 15 mg PO HS 30 Days #30 tab 01/23/18 QUEtiapine [SEROquel] 200 mg PO HS 30 Days #30 tab 01/23/18 Allergies Allergy/AdvReac Type Severity Reaction Status Date / Time No Known Allergies Allergy Verified 03/09/18 13:29 Review of Systems ROS Statement: Those systems with pertinent positive or pertinent negative responses have been documented in the HPI. ROS Other: All systems not noted in ROS Statement are negative. Past Medical History Past Medical History: Hyperlipidemia, Seizure Disorder Additional Past Medical History / Comment(s): L intraparenchymal hemorrhage L lung pneumothorax , Migraine Headaches. History of Any Multi-Drug Resistant Organisms: None Reported Past Surgical History: No Surgical Hx Reported Additional Past Surgical History / Comment(s): COLONOSCOPY POLYPS REMOVED-NEG, bilateral cataract removal, R testicular surgery as a little boy. Past Anesthesia/Blood Transfusion Reactions: No Reported Reaction Additional Past Anesthesia/Blood Transfusion Reaction / Comment(s): Pt has never recieved blood. Past Psychological History: Anxiety, Bipolar, Depression, Panic Disorder Smoking Status: Current every day smoker Past Alcohol Use History: None Reported Past Drug Use History: Marijuana - Past Family History Father Family Medical History: Cancer, Hyperlipidemia, Hypertension, Prostate Disorder Additional Family Medical History / Comment(s): PROSTATE CA Mother Family Medical History: Osteoarthritis (OA) Additional Family Medical History / Comment(s): MOM IS 71 General Exam Limitations: no limitations General appearance: alert, in no apparent distress Head exam: Present: atraumatic, normocephalic Eye exam: Present: normal appearance, PERRL, EOMI ENT exam: Present: mucous membranes dry Neck exam: Present: normal inspection. Absent: tenderness, meningismus Respiratory exam: Present: normal lung sounds bilaterally. Absent: respiratory distress, wheezes Cardiovascular Exam: Present: regular rate, normal rhythm GI/Abdominal exam: Present: soft. Absent: distended, tenderness Extremities exam: Present: normal inspection, normal capillary refill. Absent: pedal edema Neurological exam: Present: alert, oriented X3, CN II-XII intact. Absent: motor sensory deficit Psychiatric exam: Present: agitated Skin exam: Present: warm, dry, intact. Absent: cyanosis, diaphoretic Course Vital Signs 03/09/18 03/09/18 03/09/18 13:26 14:26 15:00 Temperature 97.9 F Pulse Rate 72 67 61 Respiratory 18 18 18 Rate Blood Pressure 169/83 108/90 126/86 O2 Sat by Pulse 100 97 98 Oximetry - Reevaluation(s) Reevaluation #1: 03/09/18 15:55 Patient reevaluated, headache went from 12/26- 06/26. He is comfortable. Medical Decision Making - Medical Decision Making 52-year-old with severe right-sided headache. Previous CVA, previous intracranial hemorrhage, CT repeated, shows left parietal encephalomalacia, no acute hemorrhage or acute findings. Normal CBC, normal CMP. Patient is reevaluated after treatment, pain is significantly improved. Patient is comfortable with discharge at this time. Will follow-up with both his neurologist and primary care physician. Return with worsening or changing symptoms. - Lab Data Result diagrams: 03/09/18 14:10 03/09/18 14:10 Lab Results 03/09/18 03/09/18 03/09/18 Range/Units 14:10 14:10 14:10 WBC 7.2 (3.8-10.6) k/uL RBC 4.55 (4.30-5.90) m/uL Hgb 14.9 (13.0-17.5) gm/dL Hct 43.7 (39.0-53.0) % MCV 96.0 (80.0-100.0) fL MCH 32.7 (25.0-35.0) pg MCHC 34.0 (31.0-37.0) g/dL RDW 12.4 (11.5-15.5) % Plt Count 238 (150-450) k/uL Neutrophils % 61 % Lymphocytes % 29 % Monocytes % 6 % Eosinophils % 2 % Basophils % 1 % Neutrophils # 4.4 (1.3-7.7) k/uL Lymphocytes # 2.1 (1.0-4.8) k/uL Monocytes # 0.4 (0-1.0) k/uL Eosinophils # 0.1 (0-0.7) k/uL Basophils # 0.1 (0-0.2) k/uL PT 9.6 (9.0-12.0) sec INR 0.9 (<1.2) APTT 22.8 (22.0-30.0) sec Sodium 140 (137-145) mmol/L Potassium 4.9 (3.5-5.1) mmol/L Chloride 108 H (98-107) mmol/L Carbon Dioxide 25 (22-30) mmol/L Anion Gap 7 mmol/L BUN 20 (9-20) mg/dL Creatinine 1.01 (0.66-1.25) mg/dL Est GFR (CKD-EPI)AfAm >90 (>60 ml/min/1.73 sqM) Est GFR (CKD-EPI)NonAf 84 (>60 ml/min/1.73 sqM) Glucose 94 (74-99) mg/dL Calcium 9.3 (8.4-10.2) mg/dL Total Bilirubin 0.3 (0.2-1.3) mg/dL AST 22 (17-59) U/L ALT 40 (21-72) U/L Alkaline Phosphatase 91 (38-126) U/L Total Protein 6.5 (6.3-8.2) g/dL Albumin 4.0 (3.5-5.0) g/dL Disposition Clinical Impression: Headache Disposition: HOME SELF-CARE Condition: Good Instructions: Acute Headache (ED) Is patient prescribed a controlled substance at d/c from ED?: No Referrals: Srikanth Ervin MD [Primary Care Provider] - 1-2 days Time of Disposition: 15:57
[2018-03-09 14:40] LABS: Basophils # (A) 0.1 k/uL (0-0.2); Basophils % (A) 1 %; Eosinophils # (A) 0.1 k/uL (0-0.7); Eosinophils % (A) 2 %; HCT 43.7 % (39.0-53.0); HGB 14.9 gm/dL (13.0-17.5); Lymphocytes # (A) 2.1 k/uL (1.0-4.8); Lymphocytes % (A) 29 %; MCH 32.7 pg (25.0-35.0); Mean Platelet Volume 7.5; Monocytes # (A) 0.4 k/uL (0-1.0); Monocytes % (A) 6 %; Neutrophils # (A) 4.4 k/uL (1.3-7.7); Neutrophils % (A) 61 %; Platelet Count 238 k/uL (150-450); RBC 4.55 m/uL (4.30-5.90); RDW 12.4 % (11.5-15.5); WBC 7.2 k/uL (3.8-10.6)
[2018-03-09 14:48] LABS: INR 0.9 (<1.2); Partial Thromboplastin Time 22.8 sec (22.0-30.0); Prothrombin Time 9.6 sec (9.0-12.0)
[2018-03-09 14:49] LABS: ALT 40 U/L (21-72); AST 22 U/L (17-59); Alkaline Phosphatase 91 U/L (38-126); Anion Gap 7 mmol/L; Blood Urea Nitrogen 20 mg/dL (9-20); Calcium 9.3 mg/dL (8.4-10.2); Carbon Dioxide 25 mmol/L (22-30); Chloride 108 mmol/L (98-107); Glucose 94 mg/dL (74-99); Potassium 4.9 mmol/L (3.5-5.1); Sodium 140 mmol/L (137-145); Total Bilirubin 0.3 mg/dL (0.2-1.3); Total Protein 6.5 g/dL (6.3-8.2)
--- NOTE | 2018-03-09 15:00 | CT ---
EXAMINATION TYPE: CT brain wo con DATE OF EXAM: 03/09/2018 COMPARISON: 08/25/2017 HISTORY: BOO x1 week CT DLP: 1109.4 mGycm Automated exposure control for dose reduction was used. FINDINGS: Ventricles of normal size. There is no mass effect nor midline shift. There is no sign of intracrania l hemorrhage. There is linear area of hypodensity in the left parietal lobe consistent with focal enc ephalomalacia. Calvarium is intact. IMPRESSION: LEFT PARIETAL LOBE ENCEPHALOMALACIA UNCHANGED COMPARED TO OLD EXAM. NO ACUTE INTRACRANIAL ABNORMALITY .
[2018-03-09 16:19] VITALS: BP 114/80; PULSE 62; TEMP 98.2
== END 2018-03-09 16:19 | disposition home or self-care (01) ==
LOC: EC 13:19
DX: R51 Headache (principal); G93.89 Other specified disorders of brain; R45.1 Restlessness and agitation; E78.5 Hyperlipidemia, unspecified; F17.200 Nicotine dependence, unspecified, uncomplicated; Z79.82 Long term (current) use of aspirin; Z79.899 Other long term (current) drug therapy; Z86.73 Personal history of transient ischemic attack (TIA), and cerebral infarction without residual deficits
CPT/HCPCS: 36415; 80053; 85025; 85610; 85730; 70450; 99284; 96374; 96375 ×2; 96361; J1200; J2765; J1170

== ENCOUNTER 2018-03-11 12:27 | Emergency (ER) | payer OTHER ==
[2018-03-11 12:33] VITALS: RESP 18; TEMP 97.4
[2018-03-11] MEDS ORDERED: diphenhydrAMINE 50 MG/ML 1 ML VIAL IVP STA (13:10)
[2018-03-11] MEDS ORDERED: SODIUM CHLORIDE 0.9% 1,000 ML IV ONE (13:10)
[2018-03-11] MEDS ORDERED: HYDROmorphone 0.5 MG/0.5 ML SYRINGE IVP STA (13:10)
[2018-03-11] MEDS ORDERED: METOCLOPRAMIDE 5 MG/ML 2 ML VIAL IVP STA (13:10)
[2018-03-11] MEDS ORDERED: methylPREDNISolone SOD SUCCI 125 MG/2 ML VIAL IV STA (14:22)
[2018-03-11] MEDS ORDERED: ACET/COD 300 MG/30 MG STARTER PACK 6 TAB BTL PO STA (14:29)
--- NOTE | 2018-03-11 14:29 | ED ---
Headache HPI - General Chief Complaint: Headache Stated Complaint: Revist, feels worse, major headache Time Seen by Provider: 03/11/18 12:57 Mode of arrival: ambulatory Limitations: no limitations - History of Present Illness Initial Comments: 52-year-old male patient presents to the emergency department today for evaluation of right-sided headache. Patient states he's had this headache for the last couple days after being weaned off of Effexor. Patient states that the pain is constant all day every day. States he was seen and evaluated here in the emergency department for this on 03/09/2018, states he did feel improved after receiving medications here in the emergency department however once they were off the headache returned. Patient states with the headache he does experience some blurred vision upon standing. States he also experiences a "whooshing" sound whenever he stands up. Patient denies any numbness or tingling to the extremities. Denies any new weakness to the extremities. 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 He denies any fevers or chills, nasal congestion, or cough. Change to the type of headache since the last visit. Does see a neurologist for management of his seizures. Patient does report a history of bipolar disorder and history of headaches in the past. Patient denies any recent rash, shortness breath, chest pain, abdominal pain, nausea, vomiting, diarrhea, constipation, back pain, hematuria, dysuria, urinary urgency, urinary frequency, or any other complaints. - Related Data Home Medications Medication Instructions Recorded Confirmed Atorvastatin Calcium [Lipitor] 80 mg PO HS 10/17/17 03/09/18 Carvedilol 25 mg PO BID 10/17/17 03/09/18 amLODIPine [Norvasc] 10 mg PO DAILY 12/10/17 03/09/18 Aspirin EC [Ecotrin] 325 mg PO DAILY 03/09/18 03/09/18 Cyclobenzaprine [Flexeril] 10 mg PO TID 03/09/18 03/09/18 hydrALAZINE HCL [Apresoline] 50 mg PO BID 03/09/18 03/09/18 Previous Rx's Medication Instructions Recorded Phenytoin Sodium Extended 200 mg PO BID cap 12/19/17 [Dilantin] levETIRAcetam [Keppra] 1,500 mg PO HS tab 12/19/17 levETIRAcetam [Keppra] 750 mg PO QAM tab 12/19/17 Hydrochlorothiazide [Hydrodiuril] 12.5 mg PO DAILY cap 01/23/18 Mirtazapine [Remeron] 15 mg PO HS 30 Days #30 tab 01/23/18 QUEtiapine [SEROquel] 200 mg PO HS 30 Days #30 tab 01/23/18 Allergies Allergy/AdvReac Type Severity Reaction Status Date / Time No Known Allergies Allergy Verified 03/11/18 12:33 Review of Systems ROS Statement: Those systems with pertinent positive or pertinent negative responses have been documented in the HPI. ROS Other: All systems not noted in ROS Statement are negative. Past Medical History Past Medical History: Hyperlipidemia, Seizure Disorder Additional Past Medical History / Comment(s): L intraparenchymal hemorrhage L lung pneumothorax , Migraine Headaches. History of Any Multi-Drug Resistant Organisms: None Reported Past Surgical History: No Surgical Hx Reported Additional Past Surgical History / Comment(s): COLONOSCOPY POLYPS REMOVED-NEG, bilateral cataract removal, R testicular surgery as a little boy. Past Anesthesia/Blood Transfusion Reactions: No Reported Reaction Additional Past Anesthesia/Blood Transfusion Reaction / Comment(s): Pt has never recieved blood. Past Psychological History: Anxiety, Bipolar, Depression, Panic Disorder Smoking Status: Current every day smoker Past Alcohol Use History: None Reported Past Drug Use History: Marijuana - Past Family History Father Family Medical History: Cancer, Hyperlipidemia, Hypertension, Prostate Disorder Additional Family Medical History / Comment(s): PROSTATE CA Mother Family Medical History: Osteoarthritis (OA) Additional Family Medical History / Comment(s): MOM IS 71 General Exam Limitations: no limitations General appearance: alert, in no apparent distress, other (This is a well- developed, well-nourished adult male patient in no acute distress. Vital signs upon presentation are temperature 97.4F, pulse 72, respirations 18, blood pressure 125/72, pulse ox 99% on room air.) Eye exam: Present: normal appearance, PERRL, EOMI. Absent: scleral icterus, conjunctival injection, nystagmus, periorbital swelling ENT exam: Present: normal exam, normal oropharynx, mucous membranes moist, TM's normal bilaterally Respiratory exam: Present: normal lung sounds bilaterally. Absent: respiratory distress, wheezes, rales, rhonchi, stridor Cardiovascular Exam: Present: regular rate, normal rhythm, normal heart sounds. Absent: systolic murmur, diastolic murmur, rubs, gallop, clicks GI/Abdominal exam: Present: soft, normal bowel sounds. Absent: distended, tenderness, guarding, rebound, rigid Neurological exam: Present: alert, oriented X3, CN II-XII intact, other ( Strength in the right upper and right lower extremity is 3/5. Strength in the left upper and lower extremities 5/5.) Psychiatric exam: Present: normal affect, normal mood Skin exam: Present: warm, dry, intact, normal color. Absent: rash Course Vital Signs 03/11/18 12:30 Temperature 97.4 F L Pulse Rate 72 Respiratory 18 Rate Blood Pressure 125/72 O2 Sat by Pulse 99 Oximetry Medical Decision Making - Medical Decision Making 52-year-old male patient presents to the emergency department today for evaluation of right-sided headache has been going on for the last 12 days. Physical examination is unremarkable. He has no acute neurologic deficits. Patient was seen and evaluated here on the of this month and did have labs and CT of the brain which showed no acute abnormalities or findings. Patient believes his headache may be related to discontinuation of his Effexor. Patient was given IV medications here in the emergency department, upon reevaluation he is feeling better. We'll attempt giving IV Solu-Medrol. He is instructed to follow-up with his neurologist or his primary care physician for recheck in 1-2 days, he is instructed to discuss MRI. Return parameters were discussed in detail. He verbalizes understanding and agrees with this plan. Disposition Clinical Impression: Acute headache Disposition: HOME SELF-CARE Condition: Good Instructions: Acute Headache (ED) Additional Instructions: Follow up with your primary care physician or neurologist for recheck in 1-2 days. Discuss possible MRI for persistent headache. Take medication as discussed. Return immediately for any new, worsening, or concerning symptoms. Is patient prescribed a controlled substance at d/c from ED?: No Referrals: Srikanth Ervin MD [Primary Care Provider] - 1-2 days Time of Disposition: 14:29
[2018-03-11 15:05] VITALS: BP 131/88; PULSE 60
== END 2018-03-11 15:01 | disposition home or self-care (01) ==
LOC: EC 12:27
DX: R51 Headache (principal); H53.8 Other visual disturbances; E78.5 Hyperlipidemia, unspecified; F31.9 Bipolar disorder, unspecified; F41.0 Panic disorder [episodic paroxysmal anxiety]; F17.200 Nicotine dependence, unspecified, uncomplicated; Z79.82 Long term (current) use of aspirin; Z79.899 Other long term (current) drug therapy
CPT/HCPCS: 99283; 96374; 96375 ×3; 96361; J1200; J2765; J2930; J1170

== ENCOUNTER 2018-03-18 10:41 | Emergency (ER) | payer OTHER ==
[2018-03-18] MEDS ORDERED: HYDROmorphone 0.5 MG/0.5 ML SYRINGE IVP STA (11:12)
[2018-03-18] MEDS ORDERED: SODIUM CHLORIDE 0.9% 1,000 ML IV STA (11:12)
[2018-03-18] MEDS ORDERED: diphenhydrAMINE 50 MG/ML 1 ML VIAL IVP STA (11:12)
[2018-03-18] MEDS ORDERED: METOCLOPRAMIDE 5 MG/ML 2 ML VIAL IVP STA (11:12)
--- NOTE | 2018-03-18 11:16 | ED ---
General Adult HPI - General Chief complaint: Headache Stated complaint: headache Time Seen by Provider: 03/18/18 11:05 Source: patient, RN notes reviewed, old records reviewed Mode of arrival: ambulatory Limitations: no limitations - History of Present Illness Initial comments: 52-year-old male presents for reevaluation of chronic headache. Patient has significant past medical history including chronic headache, bipolar depression , previous CVA. He has been dealing with constant headache for the past 10 days. Initially began after starting new depression medication. This medication has since been decreased. He complains of persistent left retro- orbital headache. Patient has residual right-sided weakness secondary to previous CVA. This is his third ER visit for evaluation of the same headache. Denies fever or chills. Denies or worsening weakness or numbness. Denies vision changes. - Related Data Home Medications Medication Instructions Recorded Confirmed Atorvastatin Calcium [Lipitor] 80 mg PO HS 10/17/17 03/18/18 Carvedilol 25 mg PO BID 10/17/17 03/18/18 amLODIPine [Norvasc] 10 mg PO DAILY 12/10/17 03/18/18 Aspirin EC [Ecotrin] 325 mg PO DAILY 03/09/18 03/18/18 Cyclobenzaprine [Flexeril] 10 mg PO TID 03/09/18 03/18/18 hydrALAZINE HCL [Apresoline] 50 mg PO BID 03/09/18 03/18/18 Mirtazapine 45 mg PO HS 03/18/18 03/18/18 levETIRAcetam [Keppra] 750 mg PO TID 03/18/18 03/18/18 Previous Rx's Medication Instructions Recorded QUEtiapine [SEROquel] 200 mg PO HS 30 Days #30 tab 01/23/18 Butalb/APAP/Caff 50-325-40Mg 1 tab PO Q6H PRN #12 tablet 03/18/18 [Fioricet 50-325-40] Allergies Allergy/AdvReac Type Severity Reaction Status Date / Time No Known Allergies Allergy Verified 03/18/18 12:54 Review of Systems ROS Statement: Those systems with pertinent positive or pertinent negative responses have been documented in the HPI. ROS Other: All systems not noted in ROS Statement are negative. Past Medical History Past Medical History: Hyperlipidemia, Seizure Disorder Additional Past Medical History / Comment(s): L intraparenchymal hemorrhage L lung pneumothorax , Migraine Headaches. History of Any Multi-Drug Resistant Organisms: None Reported Past Surgical History: No Surgical Hx Reported Additional Past Surgical History / Comment(s): COLONOSCOPY POLYPS REMOVED-NEG, bilateral cataract removal, R testicular surgery as a little boy. Past Anesthesia/Blood Transfusion Reactions: No Reported Reaction Additional Past Anesthesia/Blood Transfusion Reaction / Comment(s): Pt has never recieved blood. Past Psychological History: Anxiety, Bipolar, Depression, Panic Disorder Smoking Status: Current every day smoker Past Alcohol Use History: None Reported Past Drug Use History: Marijuana - Past Family History Father Family Medical History: Cancer, Hyperlipidemia, Hypertension, Prostate Disorder Additional Family Medical History / Comment(s): PROSTATE CA Mother Family Medical History: Osteoarthritis (OA) Additional Family Medical History / Comment(s): MOM IS 71 General Exam Limitations: no limitations General appearance: alert, in no apparent distress Head exam: Present: atraumatic, normocephalic Eye exam: Present: normal appearance, PERRL, EOMI Neck exam: Present: normal inspection. Absent: tenderness, meningismus Respiratory exam: Present: normal lung sounds bilaterally. Absent: respiratory distress, wheezes, rales Cardiovascular Exam: Present: regular rate, normal rhythm GI/Abdominal exam: Present: soft. Absent: distended, tenderness, guarding Extremities exam: Present: normal inspection, normal capillary refill. Absent: pedal edema Neurological exam: Present: alert, motor sensory deficit (Mild right upper extremity drift, and ataxia) Psychiatric exam: Present: normal affect, normal mood Skin exam: Present: warm, dry, intact. Absent: cyanosis, diaphoretic Course Vital Signs 03/18/18 10:51 Temperature 97.6 F Pulse Rate 72 Respiratory 20 Rate Blood Pressure 121/71 O2 Sat by Pulse 99 Oximetry - Reevaluation(s) Reevaluation #1: 03/18/18 13:39 Pain significantly improved. Medical Decision Making - Medical Decision Making Patient with chronic headache presenting for evaluation of headache. Patient is afebrile, stable vitals, neurologic exam unchanged from baseline. History of previous CVA and intracranial hemorrhage. I did see this patient proximally one week ago, workup at that time revealed normal labs, CT head showing no intracranial hemorrhage. Symptoms are unchanged since that time. I did discuss possibility of admission versus outpatient evaluation with the patient and his primary care physician Dr. Ervin. Patient's would prefer discharge and patient's primary care physician is able to see him this week. We will start Fioricet for symptom control. Please return with worsening or changing symptoms. - Lab Data Result diagrams: 03/18/18 11:53 03/18/18 11:53 Lab Results 03/18/18 03/18/18 Range/Units 11:53 11:53 WBC 10.5 (3.8-10.6) k/uL RBC 4.13 L (4.30-5.90) m/uL Hgb 13.9 (13.0-17.5) gm/dL Hct 39.9 (39.0-53.0) % MCV 96.7 (80.0-100.0) fL MCH 33.6 (25.0-35.0) pg MCHC 34.7 (31.0-37.0) g/dL RDW 12.7 (11.5-15.5) % Plt Count 210 (150-450) k/uL Neutrophils % 71 % Lymphocytes % 19 % Monocytes % 7 % Eosinophils % 2 % Basophils % 1 % Neutrophils # 7.4 (1.3-7.7) k/uL Lymphocytes # 1.9 (1.0-4.8) k/uL Monocytes # 0.8 (0-1.0) k/uL Eosinophils # 0.2 (0-0.7) k/uL Basophils # 0.1 (0-0.2) k/uL Sodium 138 (137-145) mmol/L Potassium 4.2 (3.5-5.1) mmol/L Chloride 110 H (98-107) mmol/L Carbon Dioxide 23 (22-30) mmol/L Anion Gap 5 mmol/L BUN 24 H (9-20) mg/dL Creatinine 0.93 (0.66-1.25) mg/dL Est GFR (CKD-EPI)AfAm >90 (>60 ml/min/1.73 sqM) Est GFR (CKD-EPI)NonAf >90 (>60 ml/min/1.73 sqM) Glucose 101 H (74-99) mg/dL Calcium 8.6 (8.4-10.2) mg/dL Total Bilirubin 0.3 (0.2-1.3) mg/dL AST 31 (17-59) U/L ALT 36 (21-72) U/L Alkaline Phosphatase 83 (38-126) U/L Total Protein 5.9 L (6.3-8.2) g/dL Albumin 3.5 (3.5-5.0) g/dL Disposition Clinical Impression: Recurrent headache Disposition: HOME SELF-CARE Condition: Fair Instructions: General Headache (ED) Prescriptions: Butalb/APAP/Caff 50-325-40Mg [Fioricet 50-325-40] 1 tab PO Q6H PRN #12 tablet PRN Reason: Headache Is patient prescribed a controlled substance at d/c from ED?: No Referrals: Srikanth Ervin MD [Primary Care Provider] - 1-2 days Taz Burr MD [REFERRING] - 1-2 days Time of Disposition: 13:43
[2018-03-18 12:17] LABS: Basophils # (A) 0.1 k/uL (0-0.2); Basophils % (A) 1 %; Eosinophils # (A) 0.2 k/uL (0-0.7); Eosinophils % (A) 2 %; HCT 39.9 % (39.0-53.0); HGB 13.9 gm/dL (13.0-17.5); Lymphocytes # (A) 1.9 k/uL (1.0-4.8); Lymphocytes % (A) 19 %; MCH 33.6 pg (25.0-35.0); MCHC 34.7 g/dL (31.0-37.0); MCV 96.7 fL (80.0-100.0); Mean Platelet Volume 7.4; Monocytes # (A) 0.8 k/uL (0-1.0); Monocytes % (A) 7 %; Neutrophils # (A) 7.4 k/uL (1.3-7.7); Neutrophils % (A) 71 %; Platelet Count 210 k/uL (150-450); RBC 4.13 m/uL (4.30-5.90); RDW 12.7 % (11.5-15.5); WBC 10.5 k/uL (3.8-10.6)
[2018-03-18 12:30] LABS: ALT 36 U/L (21-72); AST 31 U/L (17-59); Albumin 3.5 g/dL (3.5-5.0); Alkaline Phosphatase 83 U/L (38-126); Anion Gap 5 mmol/L; Blood Urea Nitrogen 24 mg/dL (9-20); Calcium 8.6 mg/dL (8.4-10.2); Carbon Dioxide 23 mmol/L (22-30); Chloride 110 mmol/L (98-107); Glucose 101 mg/dL (74-99); Potassium 4.2 mmol/L (3.5-5.1); Sodium 138 mmol/L (137-145); Total Bilirubin 0.3 mg/dL (0.2-1.3); Total Protein 5.9 g/dL (6.3-8.2)
[2018-03-18 13:57] VITALS: BP 129/81; PULSE 62; RESP 18; TEMP 98.2
== END 2018-03-18 13:57 | disposition home or self-care (01) ==
LOC: EC 10:41
DX: R51 Headache (principal); I69.351 Hemiplegia and hemiparesis following cerebral infarction affecting right dominant side; I69.393 Ataxia following cerebral infarction; E78.5 Hyperlipidemia, unspecified; G40.909 Epilepsy, unspecified, not intractable, without status epilepticus; F31.9 Bipolar disorder, unspecified; F41.9 Anxiety disorder, unspecified; F17.200 Nicotine dependence, unspecified, uncomplicated; Z79.82 Long term (current) use of aspirin; Z79.899 Other long term (current) drug therapy; Z86.79 Personal history of other diseases of the circulatory system
CPT/HCPCS: 36415; 80053; 85025; 99284; 96374; 96375 ×2; 96361; J1200; J2765; J1170

== ENCOUNTER 2018-03-25 12:54 | Inpatient (IN) | payer MEDICAID, OTHER ==
[2018-03-25] MEDS ORDERED: KETOROLAC 30 MG/ML 1 ML VIAL IVP STA (14:41)
[2018-03-25] MEDS ORDERED: diphenhydrAMINE 50 MG/ML 1 ML VIAL IVP STA (14:41)
[2018-03-25] MEDS ORDERED: SODIUM CHLORIDE 0.9% 1,000 ML IV STA ×2 (14:41)
[2018-03-25] MEDS ORDERED: METOCLOPRAMIDE 5 MG/ML 2 ML VIAL IVP STA (14:41)
[2018-03-25] MEDS ORDERED: HYDROmorphone 1 MG/ML 1 ML SYRINGE IVP STA (15:39)
--- NOTE | 2018-03-25 15:48 | ED ---
Psych HPI - General Source: patient, RN notes reviewed, old records reviewed Mode of arrival: ambulatory <Rupa Alberto - Last Filed: 03/25/18 17:42> <Foster Vergara Fernanda - Last Filed: 03/25/18 18:58> - General Chief Complaint: Psychiatric Symptoms Stated Complaint: headache, mental health Time Seen by Provider: 03/25/18 14:24 - History of Present Illness Initial Comments: Patient is a 52-year-old male presents emergency department today with his friend. He complains of a severe headache. He's had this headache for the past 20 days. He's been evaluated in the emergency department 3 times for this similar headache. She received IV Dilaudid and has relief. Patient was offered admission last time he stated he preferred to go home. Patient reports that he try to follow-up with his primary care physician however his primary care physician canceled on his appointments. This may Patient extremely upset. Apparently Patient threw his coffee table through the TV. Patient states he just wants his headache to go away. He is quite adamant that Dilaudid is the only thing that will help with his headache. Patient reports that his headache radiates from the right retrocular area. Patient has had these types of headaches in the past. He relates that these headaches started after he was discontinued off of Effexor. Patient states that he was placed on Effexor when he was last and in the mental health unit. We followed up with his psychiatrist Sayed he was upset about this and wanted to have that medication discontinued. Since this change in medication is complaining of sharp headaches. states that due to these headaches is increasingly depressed and has had some suicidal thoughts. (Rupa Alberto) - Related Data Home Medications Medication Instructions Recorded Confirmed Atorvastatin Calcium [Lipitor] 80 mg PO HS 10/17/17 03/25/18 Carvedilol 25 mg PO BID 10/17/17 03/25/18 amLODIPine [Norvasc] 10 mg PO DAILY 12/10/17 03/25/18 Aspirin EC [Ecotrin] 325 mg PO DAILY 03/09/18 03/25/18 Cyclobenzaprine [Flexeril] 10 mg PO TID 03/09/18 03/25/18 hydrALAZINE HCL [Apresoline] 50 mg PO BID 03/09/18 03/25/18 Mirtazapine 45 mg PO HS 03/18/18 03/25/18 levETIRAcetam [Keppra] 750 mg PO TID 03/18/18 03/25/18 Previous Rx's Medication Instructions Recorded QUEtiapine [SEROquel] 200 mg PO HS 30 Days #30 tab 01/23/18 Allergies Allergy/AdvReac Type Severity Reaction Status Date / Time No Known Allergies Allergy Verified 03/25/18 15:39 Review of Systems ROS Other: All systems not noted in ROS Statement are negative. <Rupa Alberto - Last Filed: 03/25/18 17:42> ROS Other: All systems not noted in ROS Statement are negative. <Foster Vergara - Last Filed: 03/25/18 18:58> ROS Statement: Those systems with pertinent positive or pertinent negative responses have been documented in the HPI. Past Medical History Past Medical History: Hyperlipidemia, Seizure Disorder Additional Past Medical History / Comment(s): L intraparenchymal hemorrhage L lung pneumothorax , Migraine Headaches. History of Any Multi-Drug Resistant Organisms: None Reported Past Surgical History: No Surgical Hx Reported Additional Past Surgical History / Comment(s): COLONOSCOPY POLYPS REMOVED-NEG, bilateral cataract removal, R testicular surgery as a little boy. Past Anesthesia/Blood Transfusion Reactions: No Reported Reaction Additional Past Anesthesia/Blood Transfusion Reaction / Comment(s): Pt has never recieved blood. Past Psychological History: Anxiety, Bipolar, Depression, Panic Disorder Smoking Status: Current every day smoker Past Alcohol Use History: None Reported Past Drug Use History: Marijuana - Past Family History Father Family Medical History: Cancer, Hyperlipidemia, Hypertension, Prostate Disorder Additional Family Medical History / Comment(s): PROSTATE CA Mother Family Medical History: Osteoarthritis (OA) Additional Family Medical History / Comment(s): MOM IS 71 <Rupa Alberto - Last Filed: 03/25/18 17:42> General Exam Limitations: no limitations Head exam: Present: atraumatic, normocephalic, normal inspection Eye exam: Present: normal appearance, PERRL, EOMI. Absent: scleral icterus, conjunctival injection, periorbital swelling ENT exam: Present: normal exam, normal oropharynx, mucous membranes moist Neck exam: Present: normal inspection. Absent: tenderness, meningismus, lymphadenopathy Respiratory exam: Present: normal lung sounds bilaterally. Absent: respiratory distress, wheezes, rales, rhonchi, stridor Cardiovascular Exam: Present: regular rate, normal rhythm, normal heart sounds. Absent: systolic murmur, diastolic murmur, rubs, gallop, clicks GI/Abdominal exam: Present: soft, normal bowel sounds. Absent: distended, tenderness, guarding, rebound, rigid Back exam: Present: normal inspection Neurological exam: Present: alert, oriented X3, CN II-XII intact Expanded Speech: Present: fluid speech Cranial nerves: EOM's Intact: Normal Cerebellar function: Finger to Nose: Normal Upper motor neuron: Pronator Drift: Normal Motor strength exam: RUE: 3 (Pt states that it is chronic ), LUE: 5, RLE: 5, LLE : 5 Eye Response: (4) open spontaneously Motor Response: (6) obeys commands Verbal Response: (5) oriented Davis Total: 15 Psychiatric exam: Present: depressed, agitated. Absent: normal affect, normal mood Skin exam: Present: warm, dry, intact, normal color. Absent: rash <Rupa Alberto - Last Filed: 03/25/18 17:42> <Foster Vergara - Last Filed: 03/25/18 18:58> - General Exam Comments Initial Comments: 52-year-old male. Patient is quite temperamental and upset. (Rupa Alberto) Vital Signs 03/25/18 14:09 Temperature 98.6 F Pulse Rate 81 Respiratory 18 Rate Blood Pressure 135/95 O2 Sat by Pulse 95 Oximetry Medical Decision Making - Lab Data Result diagrams: 03/25/18 16:30 03/25/18 16:30 - Radiology Data Radiology results: report reviewed <Rupa Alberto - Last Filed: 03/25/18 17:42> - Lab Data Result diagrams: 03/25/18 16:30 03/25/18 16:30 <Foster Vergara - Last Filed: 03/25/18 18:58> - Medical Decision Making 52-year-old male patient's presenting today with evaluation for chronic headache. His symptoms have been going on for the past month since discontinuing Effexor. Patient has been quite agitated and unruly when first evaluated. Patient was offered migraine cocktail and was quite adamant in not of these medications would help with his headache. He has a history of CVA a few years ago. He does have chronic right-sided weakness since that time. He is no acute changes with this today. Patient does have an no acute changes on the CT today. Lab work was reviewed and unremarkable. Patient is medically clear for EPS evaluation of his headache is diminished after receiving the pain medicine. I discussed the case with Dr. Vergara. (Rupa Alberto) Patient presenting with headache and nausea for psychiatric evaluation. Patient is cleared from a headache standpoint, is chronic in nature, head CT is negative for intracranial hemorrhage. Patient is evaluated by EPS in the emergency department, and will be admitted for further psychiatric treatment and evaluation. (Foster Vergara) - Lab Data Lab Results 03/25/18 03/25/18 Range/Units 16:30 16:30 WBC 5.2 (3.8-10.6) k/uL RBC 4.63 (4.30-5.90) m/uL Hgb 15.0 (13.0-17.5) gm/dL Hct 45.0 (39.0-53.0) % MCV 97.3 (80.0-100.0) fL MCH 32.4 (25.0-35.0) pg MCHC 33.3 (31.0-37.0) g/dL RDW 13.1 (11.5-15.5) % Plt Count 272 (150-450) k/uL Neutrophils % 57 % Lymphocytes % 31 % Monocytes % 6 % Eosinophils % 3 % Basophils % 1 % Neutrophils # 3.0 (1.3-7.7) k/uL Lymphocytes # 1.6 (1.0-4.8) k/uL Monocytes # 0.3 (0-1.0) k/uL Eosinophils # 0.2 (0-0.7) k/uL Basophils # 0.0 (0-0.2) k/uL Sodium 139 (137-145) mmol/L Potassium 4.6 (3.5-5.1) mmol/L Chloride 108 H (98-107) mmol/L Carbon Dioxide 24 (22-30) mmol/L Anion Gap 7 mmol/L BUN 23 H (9-20) mg/dL Creatinine 0.98 (0.66-1.25) mg/dL Est GFR (CKD-EPI)AfAm >90 (>60 ml/min/1.73 sqM) Est GFR (CKD-EPI)NonAf 88 (>60 ml/min/1.73 sqM) Glucose 94 (74-99) mg/dL Calcium 9.5 (8.4-10.2) mg/dL Total Bilirubin 0.4 (0.2-1.3) mg/dL AST 30 (17-59) U/L ALT 43 (21-72) U/L Alkaline Phosphatase 77 (38-126) U/L Total Protein 6.9 (6.3-8.2) g/dL Albumin 4.4 (3.5-5.0) g/dL - Radiology Data No acute intracranial hemorrhage or midline shift. There is old left-sided infarct redemonstrated. Left ethmoid sinus disease again is seen. (Rupa Alberto) Disposition <Rupa Alberto - Last Filed: 03/25/18 17:42> Is patient prescribed a controlled substance at d/c from ED?: No Decision to Admit Reason: Admit from EC Decision Date: 03/25/18 Decision Time: 18:57 <Foster Vergara - Last Filed: 03/25/18 18:58> Clinical Impression: Suicidal ideation, Recurrent headache, Depression Disposition: ADMITTED IP TO THIS HOSP Condition: Stable
--- NOTE | 2018-03-25 17:01 | CT ---
EXAMINATION TYPE: CT brain wo con DATE OF EXAM: 03/25/2018 HISTORY: Headache. CT DLP: 1093.4 mGycm. Automated Exposure Control for Dose Reduction was Utilized. TECHNIQUE: CT scan of the head is performed without contrast. COMPARISON: CT brain March 09, 2018. FINDINGS: There is no acute intracranial hemorrhage or midline shift identified. There is diffuse v entricular and sulcal prominence consistent with diffuse age-related cerebral atrophy. Old infarct hi gh left posterior frontal lobe axial image 42 through 45 is redemonstrated. There is hyperdense mater ial filling posterior left ethmoid sinus similar to prior study. The globes are intact and the remai nder sinuses are clear. IMPRESSION: No acute intracranial hemorrhage or midline shift. There is old left-sided infarct rede monstrated. Left ethmoid sinus disease is again seen.
[2018-03-25 17:12] LABS: Basophils % (A) 1 %; Eosinophils # (A) 0.2 k/uL (0-0.7); Eosinophils % (A) 3 %; Lymphocytes # (A) 1.6 k/uL (1.0-4.8); Lymphocytes % (A) 31 %; MCH 32.4 pg (25.0-35.0); MCHC 33.3 g/dL (31.0-37.0); MCV 97.3 fL (80.0-100.0); Mean Platelet Volume 7.5; Monocytes # (A) 0.3 k/uL (0-1.0); Monocytes % (A) 6 %; Neutrophils % (A) 57 %; Platelet Count 272 k/uL (150-450); RBC 4.63 m/uL (4.30-5.90); RDW 13.1 % (11.5-15.5); WBC 5.2 k/uL (3.8-10.6)
[2018-03-25 17:21] LABS: ALT 43 U/L (21-72); AST 30 U/L (17-59); Albumin 4.4 g/dL (3.5-5.0); Alkaline Phosphatase 77 U/L (38-126); Anion Gap 7 mmol/L; Blood Urea Nitrogen 23 mg/dL (9-20); Calcium 9.5 mg/dL (8.4-10.2); Carbon Dioxide 24 mmol/L (22-30); Chloride 108 mmol/L (98-107); Glucose 94 mg/dL (74-99); Potassium 4.6 mmol/L (3.5-5.1); Sodium 139 mmol/L (137-145); Total Bilirubin 0.4 mg/dL (0.2-1.3); Total Protein 6.9 g/dL (6.3-8.2)
[2018-03-25] MEDS ORDERED: MAG HYDROX/AL HYDROX/SIMETH 30 ML CUP PO PRN (20:50)
[2018-03-25] MEDS ORDERED: MAGNESIUM HYDROXIDE 2,400 MG/10 ML CUP PO PRN (20:50)
[2018-03-25] MEDS ORDERED: MIRTAZAPINE 15 MG TAB PO SCH (21:00)
[2018-03-25] MEDS: ATORVASTATIN 80 MG TAB PO SCH (22:16)
[2018-03-25] MEDS: levETIRAcetam 250 MG TAB PO SCH (22:16)
[2018-03-25] MEDS: QUEtiapine 200 MG TAB PO SCH (22:18)
[2018-03-25] MEDS: ACETAMINOPHEN TAB 325 MG TAB PO PRN (23:37)
[2018-03-26] MEDS ORDERED: HALOPERIDOL LACTATE 5 MG/ML 1 ML VIAL IM ONE (01:06)
[2018-03-26 02:19] VITALS: BMI 28.0
[2018-03-26] MEDS: levETIRAcetam 250 MG TAB PO SCH ×3 (08:43→21:00)
[2018-03-26] MEDS: ACETAMINOPHEN TAB 325 MG TAB PO PRN ×3 (08:44→18:58)
--- NOTE | 2018-03-26 12:09 | P.HP ---
Psychiatric H&P - . H&P Date: 03/26/18 History & Physical: Allergies Allergy/AdvReac Type Severity Reaction Status Date / Time No Known Allergies Allergy Verified 03/25/18 15:39 Vital Signs Temp 97.7 F 03/26/18 04:09 Pulse 69 03/26/18 04:09 Resp 20 03/26/18 04:09 BP 109/59 03/26/18 04:09 Pulse Ox 98 03/25/18 19:20 Intake & Output 03/25/18 03/26/18 03/26/18 18:59 06:59 18:59 Weight 81.647 kg 81.363 kg Laboratory Last Values WBC 5.2 k/uL (3.8-10.6) 03/25/18 16:30 RBC 4.63 m/uL (4.30-5.90) 03/25/18 16:30 Hgb 15.0 gm/dL (13.0-17.5) 03/25/18 16:30 Hct 45.0 % (39.0-53.0) 03/25/18 16:30 MCV 97.3 fL (80.0-100.0) 03/25/18 16:30 MCH 32.4 pg (25.0-35.0) 03/25/18 16:30 MCHC 33.3 g/dL (31.0-37.0) 03/25/18 16:30 RDW 13.1 % (11.5-15.5) 03/25/18 16:30 Plt Count 272 k/uL (150-450) 03/25/18 16:30 Neutrophils % 57 % 03/25/18 16:30 Lymphocytes % 31 % 03/25/18 16:30 Monocytes % 6 % 03/25/18 16:30 Eosinophils % 3 % 03/25/18 16:30 Basophils % 1 % 03/25/18 16:30 Neutrophils # 3.0 k/uL (1.3-7.7) 03/25/18 16:30 Lymphocytes # 1.6 k/uL (1.0-4.8) 03/25/18 16:30 Monocytes # 0.3 k/uL (0-1.0) 03/25/18 16:30 Eosinophils # 0.2 k/uL (0-0.7) 03/25/18 16:30 Basophils # 0.0 k/uL (0-0.2) 03/25/18 16:30 Sodium 139 mmol/L (137-145) 03/25/18 16:30 Potassium 4.6 mmol/L (3.5-5.1) 03/25/18 16:30 Chloride 108 mmol/L (98-107) H 03/25/18 16:30 Carbon Dioxide 24 mmol/L (22-30) 03/25/18 16:30 Anion Gap 7 mmol/L 03/25/18 16:30 BUN 23 mg/dL (9-20) H 03/25/18 16:30 Creatinine 0.98 mg/dL (0.66-1.25) 03/25/18 16:30 Est GFR (CKD-EPI)AfAm >90 (>60 ml/min/1.73 sqM) 03/25/18 16:30 Est GFR (CKD-EPI)NonAf 88 (>60 ml/min/1.73 sqM) 03/25/18 16:30 Glucose 94 mg/dL (74-99) 03/25/18 16:30 Calcium 9.5 mg/dL (8.4-10.2) 03/25/18 16:30 Total Bilirubin 0.4 mg/dL (0.2-1.3) 03/25/18 16:30 AST 30 U/L (17-59) 03/25/18 16:30 ALT 43 U/L (21-72) 03/25/18 16:30 Alkaline Phosphatase 77 U/L (38-126) 03/25/18 16:30 Total Protein 6.9 g/dL (6.3-8.2) 03/25/18 16:30 Albumin 4.4 g/dL (3.5-5.0) 03/25/18 16:30 Phenytoin 5.0 ug/mL 03/25/18 16:30 Assessment and Plan Assessment: Patient is a 52-year-old male presents emergency department today with his friend. He complains of a severe headache. He's had this headache for the past 20 days. He's been evaluated in the emergency department 3 times for this similar headache. She received IV Dilaudid and has relief. Patient was offered admission last time he stated he preferred to go home. Patient reports that he try to follow-up with his primary care physician however his primary care physician canceled on his appointments. This may Patient extremely upset. Apparently Patient threw his coffee table through the TV. Patient states he just wants his headache to go away. He is quite adamant that Dilaudid is the only thing that will help with his headache. Patient reports that his headache radiates from the right retrocular area. Patient has had these types of headaches in the past. He relates that these headaches started after he was discontinued off of Effexor. Patient states that he was placed on Effexor when he was last and in the mental health unit. Since this change in medication is complaining of sharp headaches. He states that due to these headaches is increasingly depressed and has had some suicidal thoughts. - Related Data Home Medications Medication Instructions Recorded Confirmed Atorvastatin Calcium [Lipitor] 80 mg PO HS 10/17/17 03/25/18 Carvedilol 25 mg PO BID 10/17/17 03/25/18 amLODIPine [Norvasc] 10 mg PO DAILY 12/10/17 03/25/18 Aspirin EC [Ecotrin] 325 mg PO DAILY 03/09/18 03/25/18 Cyclobenzaprine [Flexeril] 10 mg PO TID 03/09/18 03/25/18 hydrALAZINE HCL [Apresoline] 50 mg PO BID 03/09/18 03/25/18 Mirtazapine 45 mg PO HS 03/18/18 03/25/18 levETIRAcetam [Keppra] 750 mg PO TID 03/18/18 03/25/18 Previous Rx's Medication Instructions Recorded QUEtiapine [SEROquel] 200 mg PO HS 30 Days #30 tab 01/23/18 Allergies Allergy/AdvReac Type Severity Reaction Status Date / Time No Known Allergies Allergy Verified 03/25/18 15:39 Past Medical History Past Medical History: Hyperlipidemia, Seizure Disorder Additional Past Medical History / Comment(s): L intraparenchymal hemorrhage L lung pneumothorax , Migraine Headaches. History of Any Multi-Drug Resistant Organisms: None Reported Past Surgical History: No Surgical Hx Reported Additional Past Surgical History / Comment(s): COLONOSCOPY POLYPS REMOVED-NEG, bilateral cataract removal, R testicular surgery as a little boy. Past Anesthesia/Blood Transfusion Reactions: No Reported Reaction Additional Past Anesthesia/Blood Transfusion Reaction / Comment(s): Pt has never recieved blood. Past Psychological History: Anxiety, Bipolar, Depression, Panic Disorder Smoking Status: Current every day smoker Past Alcohol Use History: None Reported Past Drug Use History: Marijuana - Past Family History Father Family Medical History: Cancer, Hyperlipidemia, Hypertension, Prostate Disorder Additional Family Medical History / Comment(s): PROSTATE CA Mother Family Medical History: Osteoarthritis (OA) Additional Family Medical History / Comment(s): MOM IS 71 Musculoskeletal Examination - Abnormal/Involuntary Movements: [ tremors] Strength: [greater than antigravity (greater than/equal to 3/5) in all extremities, right-sided weakness] Muscle Tone: [no impairment] Gait: [grossly normal] Station: [grossly normal] Head ache still there:07/26 Mental Status Examination - General Appearance: [disheveled, casual, appears older than stated age] Speech/Language: [ slow, slurred, mumbling, hesitant] Attitude/Behavior: [cooperative, guarded, withdrawn, anger, agitation] Mood: [depressed, anxious, fearful, hopelessness] Affect: [ flat, incongruent, blunted constricted] Orientation: [time, person, place situation] Thought Content: [wnl, delusions] Risk Factors: [suicidal (ideations, plan)] Perception: [wnl,] Thought Processes: [goal-oriented, concrete] Concentration/Attention Span: [impaired] [Per observation and interview with the patient] Recent Memory: [wnl, impaired] [1 out of 3 in 3 minutes] Remote Memory: [wnl, impaired] [past events, as related history] Intelligence: [below average] [based on history, based on vocabulary, syntax, grammar, and content] Judgement: [poor] [per patient's behavior/history of present illness] Insight: [fair] [understanding severity of illness/history of present illness] Admitting Diagnosis: [Bipolar affective disorder] Patient Strengths - Personal Skills: [Motivated related to get treatment] Achievements: [Lives in apartment and has so security disability] Steady employment/financial stability: [Social security disability and owns a pack] Housing stability: [Owns apartment] Able to vocalize needs: [Able to verbalize why he needs help] Motivation, determination, readiness for change: [He's tried medications since October and they have not gotten better and he wants help] Setting and pursuing goals, hopes, dreams, aspirations: [Goals are to feel better] Resources - social, interpersonal, monetary: [Stable on money and housing] Interpersonal relationships and supports available - friends: [Minute support] Patient Limitations: [medication, pathological/unsupported environment, no interests, intellectual impairment, complicated medical illness] Initial Plan of Care:dilantin for seizure disorder , topamax for mood stability , remeron for depression, seroquel for mood stability: The patient was admitted for a medical, psychiatric and psychosocial evaluation. He was encouraged to engage in psychosocial rehabilitation programs and classes. Coordination with the patient's outpatient provider will be initiated. Medication initiation will be started; medication monitoring and adjustment will be done during his hospital stay. He will be referred back to [facility] for continued outpatient treatment once stable. He is admitted voluntarily. I discussed with the patient that I was not the pentecostalism and a fear of Effexor and actually come from previous psychiatric admissions and [facility] psychotic, didn't know that she was on Effexor. (1) Depression Current Visit: Yes Status: Acute Priority: High Code(s): F32.9 - MAJOR DEPRESSIVE DISORDER, SINGLE EPISODE, UNSPECIFIED SNOMED Code(s): 45271872 (2) Recurrent headache Current Visit: Yes Status: Acute Priority: High Code(s): R51 - HEADACHE SNOMED Code(s): 87447400 Time with Patient: Less than 30
[2018-03-26] MEDS: amLODIPine 10 MG TAB PO SCH (12:54)
[2018-03-26] MEDS: TAMSULOSIN 0.4 MG CAP.ER.24H PO SCH (12:54)
[2018-03-26] MEDS: ASPIRIN 325 MG TAB PO SCH (12:54)
[2018-03-26] MEDS ORDERED: PHENYTOIN SODIUM EXTENDED 100 MG CAP PO SCH (16:00)
[2018-03-26] MEDS: CARVEDILOL 12.5 MG TAB PO SCH (16:40)
[2018-03-26 19:05] LABS: Hemoglobin A1C 5.3 % (4.0-6.0)
[2018-03-26] MEDS: QUEtiapine 200 MG TAB PO SCH (21:00)
[2018-03-26] MEDS: ATORVASTATIN 80 MG TAB PO SCH (21:00)
[2018-03-26] MEDS: MIRTAZAPINE 45 MG TABLET PO SCH (21:01)
[2018-03-26] MEDS: TOPIRAMATE 25 MG TAB PO SCH (21:01)
[2018-03-26] MEDS: PHENYTOIN SODIUM EXTENDED 100 MG CAP PO SCH (21:01)
[2018-03-26] MEDS: hydrALAZINE HCL 50 MG TAB PO SCH (21:02)
[2018-03-26] MEDS ORDERED: ACETAMINOPHEN TAB 325 MG TAB ONE (23:11)
[2018-03-27] MEDS: levETIRAcetam 250 MG TAB PO SCH ×3 (08:56→21:06)
[2018-03-27] MEDS: hydrALAZINE HCL 50 MG TAB PO SCH ×2 (08:56→21:04)
[2018-03-27] MEDS: CARVEDILOL 12.5 MG TAB PO SCH ×2 (08:56→17:03)
[2018-03-27] MEDS: amLODIPine 10 MG TAB PO SCH (08:57)
[2018-03-27] MEDS: PHENYTOIN SODIUM EXTENDED 100 MG CAP PO SCH ×2 (08:57→21:05)
[2018-03-27] MEDS: TOPIRAMATE 25 MG TAB PO SCH ×2 (08:57→21:05)
[2018-03-27] MEDS: ASPIRIN 325 MG TAB PO SCH (08:57)
[2018-03-27] MEDS: TAMSULOSIN 0.4 MG CAP.ER.24H PO SCH (08:58)
[2018-03-27] MEDS: ACETAMINOPHEN TAB 325 MG TAB PO PRN ×3 (09:28→19:21)
--- NOTE | 2018-03-27 12:45 | P.PN ---
Subjective Progress Note Date: 03/27/18 Principal diagnosis: Major depressive disorder severe with history of seizure disorder "Old doctor I'm so confused whether I want to be here go home [place] be better off if I stay here" he complains of headache today depression hopeless helpless and overwhelmed tearful at times and attempting to going to groups. Objective - Vital Signs Vital signs: Vital Signs Temp 98.0 F 03/27/18 06:35 Pulse 74 03/27/18 09:05 Resp 20 03/27/18 09:05 BP 137/81 03/27/18 09:05 Pulse Ox 98 03/25/18 19:20 - Labs CBC & Chem 7: 03/25/18 16:30 03/25/18 16:30 Assessment and Plan Assessment: Mental Status Examination - General Appearance: [disheveled, casual, appears older than stated age] Speech/Language: [ slow, slurred, mumbling, hesitant] Attitude/Behavior: [cooperative, guarded, withdrawn, anger, agitation] Mood: [depressed, anxious, fearful, hopelessness] Affect: [ flat, incongruent, blunted constricted] Orientation: [time, person, place situation] Thought Content: [wnl, delusions] Risk Factors: [suicidal (ideations, plan)] Perception: [wnl,] Thought Processes: [goal-oriented, concrete] Concentration/Attention Span: [impaired] [Per observation and interview with the patient] Recent Memory: [wnl, impaired] [1 out of 3 in 3 minutes] Remote Memory: [wnl, impaired] [past events, as related history] Intelligence: [below average] [based on history, based on vocabulary, syntax, grammar, and content] Judgement: [poor] [per patient's behavior/history of present illness] Insight: [fair] [understanding severity of illness/history of present illness] Admitting Diagnosis: [Bipolar affective disorder] Initial Plan of Care:dilantin for seizure disorder , topamax for mood stability , remeron for depression, seroquel for mood stability: The patient was admitted for a medical, psychiatric and psychosocial evaluation. He was encouraged to engage in psychosocial rehabilitation programs and classes. Coordination with the patient's outpatient provider will be initiated. Medication initiation will be started; medication monitoring and adjustment will be done during his hospital stay. He will be referred back to [facility] for continued outpatient treatment once stable. He is admitted voluntarily. I discussed with the patient that I was not goal 1 who prescribed Effexor and a fear of Effexor and actually come from previous psychiatric admissions and [facility] psychiatrist, didn't know that he was on Effexor. Discussed with patient today about continuing saying and taking his Topamax and he has agreed for today. (1) Depression Current Visit: Yes Status: Acute Priority: High Code(s): F32.9 - MAJOR DEPRESSIVE DISORDER, SINGLE EPISODE, UNSPECIFIED SNOMED Code(s): 53060806 (2) Recurrent headache Current Visit: Yes Status: Acute Priority: High Code(s): R51 - HEADACHE SNOMED Code(s): 16090222 Time with Patient: Greater than 30
[2018-03-27] MEDS: METHOCARBAMOL 750 MG TAB PO PRN (18:49)
[2018-03-27] MEDS: ATORVASTATIN 80 MG TAB PO SCH (21:04)
[2018-03-27] MEDS: QUEtiapine 200 MG TAB PO SCH (21:05)
[2018-03-27] MEDS: MIRTAZAPINE 45 MG TABLET PO SCH (21:05)
[2018-03-28 06:50] VITALS: BP 122/73; PULSE 67; RESP 16; TEMP 97.7
[2018-03-28] MEDS: ACETAMINOPHEN TAB 325 MG TAB PO PRN ×2 (06:55→10:07)
[2018-03-28] MEDS: METHOCARBAMOL 750 MG TAB PO PRN (07:57)
[2018-03-28] MEDS: TOPIRAMATE 25 MG TAB PO SCH (08:25)
[2018-03-28] MEDS: ASPIRIN 325 MG TAB PO SCH (08:25)
[2018-03-28] MEDS: TAMSULOSIN 0.4 MG CAP.ER.24H PO SCH (08:25)
[2018-03-28] MEDS: levETIRAcetam 250 MG TAB PO SCH (08:25)
[2018-03-28] MEDS: CARVEDILOL 12.5 MG TAB PO SCH (08:26)
[2018-03-28] MEDS: amLODIPine 10 MG TAB PO SCH (08:26)
[2018-03-28] MEDS: hydrALAZINE HCL 50 MG TAB PO SCH (08:26)
[2018-03-28] MEDS: PHENYTOIN SODIUM EXTENDED 100 MG CAP PO SCH (08:26)
--- NOTE | 2018-03-28 10:44 | P.MDCNMH ---
History of Present Illness H&P Date: 03/27/18 Chief Complaint: Depression 52-year-old male who was admitted to the mental health unit for suicidal ideations. Dr. Fisher was consulted for medical management. The patient was examined in the mental health unit. The patient currently denies suicidal or homicidal ideations. The patient does report occasional headaches which has been chronic for the patient but reports it has worsened since psychiatry discontinued his Effexor. He also complains of right-sided neck pain which has been ongoing for a few weeks. Review of Systems Those systems with pertinent positive or pertinent negative responses have been documented in the HPI Past Medical History Past Medical History: CVA/TIA, Hyperlipidemia, Seizure Disorder Additional Past Medical History / Comment(s): L intraparenchymal hemorrhage L lung pneumothorax , Migraine Headaches. History of Any Multi-Drug Resistant Organisms: None Reported Past Surgical History: No Surgical Hx Reported Additional Past Surgical History / Comment(s): COLONOSCOPY POLYPS REMOVED-NEG, bilateral cataract removal, R testicular surgery as a little boy. Past Anesthesia/Blood Transfusion Reactions: No Reported Reaction Additional Past Anesthesia/Blood Transfusion Reaction / Comment(s): Pt has never recieved blood. Past Psychological History: Anxiety, Bipolar, Depression, Panic Disorder Additional Psychological History / Comment(s): Has been FOLLOWED BY [facility] for yrs until recent CVA- ANGELA IS PT'S WORKER AT [facility] OR DR TORRES AT [facility]. PT resides with a friend. He is independent with his ADLs. He uses a walker some of the time. He is suppose to be starting home PT soon-he was recently discharged from rehab. Pt has hx of ETOH abuse-he quit drinking 3 yrs ago with one slip last 2013. He has hx of polysubstance abuse per old record but pt states he has not used meds not prescribed to him. He smoked marijuana he states as a young person. He has had suicidal idealations in the past- but not recently. Smoking Status: Current every day smoker Past Alcohol Use History: None Reported Additional Past Alcohol Use History / Comment(s): pt states he has been smoking for 20 years. patient states he smokes one pack per day. Past Drug Use History: Marijuana Additional Drug Use History / Comment(s): Pt has hx of polysubstance abuse per PMR-Adderall/xanax/flexeril, however pt currently denies this. - Past Family History Father Family Medical History: Cancer, Hyperlipidemia, Hypertension, Prostate Disorder Additional Family Medical History / Comment(s): PROSTATE CA Mother Family Medical History: Osteoarthritis (OA) Additional Family Medical History / Comment(s): MOM IS 71 Medications and Allergies Home Medications Medication Instructions Recorded Confirmed Type Atorvastatin Calcium [Lipitor] 80 mg PO HS 10/17/17 03/25/18 History Carvedilol 25 mg PO BID 10/17/17 03/25/18 History amLODIPine [Norvasc] 10 mg PO DAILY 12/10/17 03/25/18 History QUEtiapine [SEROquel] 200 mg PO HS 30 Days #30 tab 01/23/18 03/25/18 Rx Aspirin EC [Ecotrin] 325 mg PO DAILY 03/09/18 03/25/18 History Cyclobenzaprine [Flexeril] 10 mg PO TID 03/09/18 03/25/18 History hydrALAZINE HCL [Apresoline] 50 mg PO BID 03/09/18 03/25/18 History Mirtazapine 45 mg PO HS 03/18/18 03/25/18 History levETIRAcetam [Keppra] 750 mg PO TID 03/18/18 03/25/18 History Allergies Allergy/AdvReac Type Severity Reaction Status Date / Time No Known Allergies Allergy Verified 03/25/18 15:39 Physical Exam Vitals: Vital Signs Temp Pulse Pulse Resp BP BP Pulse Ox 03/26/18 04:09 97.7 F 69 20 109/59 03/25/18 22:27 71 16 121/73 03/25/18 20:14 97.2 F L 67 16 131/71 03/25/18 19:20 98.6 F 61 18 137/88 98 03/25/18 14:09 98.6 F 81 18 135/95 95 Intake and Output 03/25/18 03/26/18 03/26/18 22:59 06:59 14:59 Other: Weight 81.363 kg 81.363 kg GENERAL: This is a 52-year-old male in no apparent distress at the time of examination. HEENT: Head is atraumatic, normocephalic. Pupils are equal, round, and reactive to light. Sclerae anicteric. Conjunctivae are clear. Mucus membranes of the mouth are moist. Neck is supple. RESPIRATORY: Clear to auscultation. No wheezes, rales, or rhonchi. No use of accessory muscles. Patient maintaining oxygen saturation greater than 92%. CARDIOVASCULAR: Regular rate and rhythm. S1 and S2 noted. No systolic or diastolic murmur auscultated. GASTROINTESTINAL: No distention noted. Abdomen soft and round. Normal active bowel sounds auscultated x 4 quadrants. INTEGUMENTARY: No cyanosis. No jaundice. No rashes noted. No cellulitis noted. EXTREMITIES: 2+ peripheral pulses. No evidence of peripheral edema. NEUROLOGIC: Cranial nerves II-XII intact. PSYCHIATRIC: Awake, alert, and oriented X 3. Cranial Nerve Examination - Cranial Nerves Cranial Nerve I- Olfactory: Intact Cranial Nerve II- Optic: Intact Cranial Nerve III- Oculomotor: Intact Cranial Nerve IV- Trochlear: Intact Cranial Nerve V- Trigeminal: Intact Cranial Nerve - Abducens: Intact Cranial Nerve VII- Facial: Intact Cranial Nerve VIII- Auditory: Intact Cranial Nerve IX- Glossopharyngeal: Intact Cranial Nerve X- Vagus: Intact Cranial Nerve XI- Accessory: Intact Cranial Nerve XII- Hypoglossal: Intact Results CBC & Chem 7: 03/25/18 16:30 03/25/18 16:30 Labs: Abnormal Lab Results - Last 24 Hours (Table) 03/25/18 03/26/18 Range/Units 16:30 09:39 Chloride 108 H (98-107) mmol/L BUN 23 H (9-20) mg/dL Triglycerides 213 H (<150) mg/dL Assessment and Plan Plan: ASSESSMENT: Depression with suicidal ideations Recurrent hospitalizations to mental health unit for depression/suicidal ideations History of CVA: Left intraparenchymal hemorrhage History of migraine headaches History of seizure disorder Hypertension Nicotine dependence History of difficulty initiating urinary stream, suspect secondary to BPH Right-sided neck pain, suspect musculoskeletal in natura PLAN: Continue psychiatric care per Dr. Collazo Nicotine patch daily Home meds as appropriate Topamax started per psychiatry for headaches Begin Robaxin 750 mg 4 times a day as needed for neck spasms/pain Further recommendation pending patient's course Thank you for this consultation Please do not hesitate to contact us if you have questions or concerns Nurse practitioner note has been reviewed by physician. Signing provider agrees with the documented findings, assessment, and plan of care.
--- NOTE | 2018-03-28 11:44 | P.DS ---
Providers Date of admission: 03/25/18 18:45 Expected date of discharge: 03/28/18 Attending physician: Subhash Collazo DO Consults: 03/25/18 20:50 Consult Physician Routine Consulting Provider: Derrick Fisher Jr Consult Reason/Comments: H and P with medical follow Do you want consulting provider notified?: Already Contacted Primary care physician: Srikanth Ervin - Discharge Diagnosis(es) (1) Depression Patient is a 52-year-old male presents emergency department today with his friend. He complains of a severe headache. He's had this headache for the past 20 days. He's been evaluated in the emergency department 3 times for this similar headache. She received IV Dilaudid and has relief. Patient was offered admission last time he stated he preferred to go home. Patient reports that he try to follow-up with his primary care physician however his primary care physician canceled on his appointments. This may Patient extremely upset. Apparently Patient threw his coffee table through the TV. Patient states he just wants his headache to go away. He is quite adamant that Dilaudid is the only thing that will help with his headache. Patient reports that his headache radiates from the right retrocular area. Patient has had these types of headaches in the past. He relates that these headaches started after he was discontinued off of Effexor. Patient states that he was placed on Effexor when he was last and in the mental health unit. Since this change in medication is complaining of sharp headaches. He states that due to these headaches is increasingly depressed and has had some suicidal thoughts. - Related Data Home Medications Medication Instructions Recorded Confirmed Atorvastatin Calcium [Lipitor] 80 mg PO HS 10/17/17 03/25/18 Carvedilol 25 mg PO BID 10/17/17 03/25/18 amLODIPine [Norvasc] 10 mg PO DAILY 12/10/17 03/25/18 Aspirin EC [Ecotrin] 325 mg PO DAILY 03/09/18 03/25/18 Cyclobenzaprine [Flexeril] 10 mg PO TID 03/09/18 03/25/18 hydrALAZINE HCL [Apresoline] 50 mg PO BID 03/09/18 03/25/18 Mirtazapine 45 mg PO HS 03/18/18 03/25/18 levETIRAcetam [Keppra] 750 mg PO TID 03/18/18 03/25/18 Previous Rx's Medication Instructions Recorded QUEtiapine [SEROquel] 200 mg PO HS 30 Days #30 tab 01/23/18 Allergies Allergy/AdvReac Type Severity Reaction Status Date / Time No Known Allergies Allergy Verified 03/25/18 15:39 Past Medical History Past Medical History: Hyperlipidemia, Seizure Disorder Additional Past Medical History / Comment(s): L intraparenchymal hemorrhage L lung pneumothorax , Migraine Headaches. History of Any Multi-Drug Resistant Organisms: None Reported Past Surgical History: No Surgical Hx Reported Additional Past Surgical History / Comment(s): COLONOSCOPY POLYPS REMOVED-NEG, bilateral cataract removal, R testicular surgery as a little boy. Past Anesthesia/Blood Transfusion Reactions: No Reported Reaction Additional Past Anesthesia/Blood Transfusion Reaction / Comment(s): Pt has never recieved blood. Past Psychological History: Anxiety, Bipolar, Depression, Panic Disorder Smoking Status: Current every day smoker Past Alcohol Use History: None Reported Past Drug Use History: Marijuana - Past Family History Father Family Medical History: Cancer, Hyperlipidemia, Hypertension, Prostate Disorder Additional Family Medical History / Comment(s): PROSTATE CA Mother Family Medical History: Osteoarthritis (OA) Additional Family Medical History / Comment(s): MOM IS 71 Current Visit: Yes Status: Acute Priority: Low (2) Recurrent headache Current Visit: Yes Status: Acute Priority: Low Hospital Course: Plan of Care:dilantin for seizure disorder , topamax for mood stability , remeron for depression, seroquel for mood stability: The patient was admitted for a medical, psychiatric and psychosocial evaluation. He was encouraged to engage in psychosocial rehabilitation programs and classes. Coordination with the patient's outpatient provider will be initiated through the liaison. Medication initiation will be started; medication monitoring and adjustment will be done during his hospital stay. He will be referred back to [facility] for continued outpatient treatment once stable. He is admitted voluntarily. I discussed with the patient that I was not the psychiatrist who had started him on Effexor and actually come from previous psychiatric admissions and [facility] psychiatrist, didn't know that he was on Effexor. He was started on Topamax for mood stability and titrated to 1200 mg by mouth twice a day without any side effects and discussed the benefits of regular ratio for the mood stabilizer along with his Keppra and Dilantin for seizures. He had came in stating that he was depressed and irritable and angry agitated and today stated that he wanted to go home. He signed in formal voluntary. He denies any suicidal homicidal ideation at the current time and denies that he has a gun at home. He was discussed in team today with social work and nursing staff and community mental health liaison. Mental status examination time of discharge: The patient presents alert, pleasant, and cooperative. There calmly seated without any agitated behavior. [He] reports that [his] mood is good. Affect is congruent and euthymic. [He] deny having any suicidal or homicidal ideation intent or plan. [He] denies any auditory or visual hallucinations. There is no evidence of any delusional thought content. [His] thought process is linear and goal-directed. [His] speech is fluent and nonpressured. [His] memory and concentration is grossly intact for the purposes of this session. Patient Condition at Discharge: Stable Plan - Discharge Summary Discharge Rx Participant: Yes New Discharge Prescriptions: New Atorvastatin [Lipitor] 80 mg PO HS tab levETIRAcetam [Keppra] 750 mg PO TID tab Methocarbamol [Robaxin] 750 mg PO QID PRN tab PRN Reason: Muscle Spasm Mirtazapine [Remeron] 45 mg PO HS tablet Phenytoin Sodium Extended [Dilantin] 200 mg PO BID cap QUEtiapine [SEROquel] 200 mg PO HS tab Topiramate [Topamax] 100 mg PO BID 30 Days #60 tab Continue Atorvastatin Calcium [Lipitor] 80 mg PO HS Carvedilol 25 mg PO BID amLODIPine [Norvasc] 10 mg PO DAILY QUEtiapine [SEROquel] 200 mg PO HS 30 Days #30 tab Cyclobenzaprine [Flexeril] 10 mg PO TID hydrALAZINE HCL [Apresoline] 50 mg PO BID Mirtazapine 45 mg PO HS levETIRAcetam [Keppra] 750 mg PO TID Discontinued Aspirin EC [Ecotrin] 325 mg PO DAILY Discharge Medication List Atorvastatin Calcium [Lipitor] 80 mg PO HS 10/17/17 [History] Carvedilol 25 mg PO BID 10/17/17 [History] amLODIPine [Norvasc] 10 mg PO DAILY 12/10/17 [History] QUEtiapine [SEROquel] 200 mg PO HS 30 Days #30 tab 01/23/18 [Rx] Cyclobenzaprine [Flexeril] 10 mg PO TID 03/09/18 [History] hydrALAZINE HCL [Apresoline] 50 mg PO BID 03/09/18 [History] Mirtazapine 45 mg PO HS 03/18/18 [History] levETIRAcetam [Keppra] 750 mg PO TID 03/18/18 [History] Atorvastatin [Lipitor] 80 mg PO HS tab 03/28/18 [Rx] Methocarbamol [Robaxin] 750 mg PO QID PRN tab 03/28/18 [Rx] Mirtazapine [Remeron] 45 mg PO HS tablet 03/28/18 [Rx] Phenytoin Sodium Extended [Dilantin] 200 mg PO BID cap 03/28/18 [Rx] QUEtiapine [SEROquel] 200 mg PO HS tab 03/28/18 [Rx] Topiramate [Topamax] 100 mg PO BID 30 Days #60 tab 03/28/18 [Rx] levETIRAcetam [Keppra] 750 mg PO TID tab 03/28/18 [Rx] Follow up Appointment(s)/Referral(s): [facility] [Outside] - 04/02/18 10:30 am (04-02-17 @ 10:30 with DUY Foster 04-02-17 @ 11:00 with Fred Arce ) Srikanth Ervin MD [Primary Care Provider] - 1-2 days Patient Instructions/Handouts: Depression (DC), Suicide Prevention (DC) Activity/Diet/Wound Care/Special Instructions: Activity and Diet as tolerated. Avoid the use of street drugs and alcohol. Take all medications as prescribed, when you are in need of refills contact your medical doctor or psychiatrist. Please go to all scheduled outpatient appointments for aftercare treatment. If symptoms return or worsen you can call the crisis line @ and/or return to the nearest emergency room for evaluation. Discharge Disposition: HOME SELF-CARE
[2018-03-28] MEDS ORDERED: TOPIRAMATE 100 MG TAB PO SCH (21:00)
== END 2018-03-28 11:55 | disposition home or self-care (01) | DRG 885 ==
LOC: EC 12:54 → 3MHU 18:45
PROVIDERS: ADMIT Psychiatry & Neurology Psychiatry; ATTEND Psychiatry & Neurology Psychiatry
DX: F31.9 Bipolar disorder, unspecified (principal); R45.851 Suicidal ideations; E78.5 Hyperlipidemia, unspecified; F17.210 Nicotine dependence, cigarettes, uncomplicated; F22 Delusional disorders; F41.0 Panic disorder [episodic paroxysmal anxiety]; G40.909 Epilepsy, unspecified, not intractable, without status epilepticus; Z79.82 Long term (current) use of aspirin; Z80.42 Family history of malignant neoplasm of prostate; Z82.49 Family history of ischemic heart disease and other diseases of the circulatory system; Z86.73 Personal history of transient ischemic attack (TIA), and cerebral infarction without residual deficits; F10.11 Alcohol abuse, in remission; F13.11 Sedative, hypnotic or anxiolytic abuse, in remission; N40.0 Benign prostatic hyperplasia without lower urinary tract symptoms; M54.2 Cervicalgia; Z88.8 Allergy status to other drugs, medicaments and biological substances; Z98.42 Cataract extraction status, left eye; Z98.41 Cataract extraction status, right eye; G43.909 Migraine, unspecified, not intractable, without status migrainosus
CPT/HCPCS: 36415; 70450; 80053; 80061; 80177; 80185; 82075; 83036; 84443; 85025; 96361; 96374; 96375; 99285

== ENCOUNTER 2018-05-11 12:46 | Emergency (ER) | payer OTHER ==
[2018-05-11 12:55] VITALS: TEMP 98.1
[2018-05-11] MEDS ORDERED: METOCLOPRAMIDE 5 MG/ML 2 ML VIAL IVP STA (13:30)
[2018-05-11] MEDS ORDERED: diphenhydrAMINE 50 MG/ML 1 ML VIAL IVP STA (13:30)
[2018-05-11] MEDS ORDERED: HYDROmorphone 0.5 MG/0.5 ML SYRINGE IVP STA (13:30)
--- NOTE | 2018-05-11 13:30 | ED ---
Seizure HPI - General Chief Complaint: Seizure Stated Complaint: Seizure Time Seen by Provider: 05/11/18 13:08 Source: patient Mode of arrival: wheelchair Limitations: no limitations - History of Present Illness Initial Comments: 52-year-old male presents with ongoing headache for the last month. Patient is been being worked up from his family practitioner for sinus infection. Patient just finished his antibiotic. Patient states it's not helping. Patient states it's a generalized headache causing nausea and fatigue. Patient denies any dizziness but doesn't blurry vision. Patient states he did have 2 possible seizures today as well. Patient states his right side was shaky. Patient doesn 't history of a CVA that affected his right side. Patient does admit to having increased weakness on that side as well. - Related Data Home Medications Medication Instructions Recorded Confirmed Atorvastatin Calcium [Lipitor] 80 mg PO HS 10/17/17 03/25/18 Carvedilol 25 mg PO BID 10/17/17 03/25/18 amLODIPine [Norvasc] 10 mg PO DAILY 12/10/17 03/25/18 Cyclobenzaprine [Flexeril] 10 mg PO TID 03/09/18 03/25/18 hydrALAZINE HCL [Apresoline] 50 mg PO BID 03/09/18 03/25/18 Mirtazapine 45 mg PO HS 03/18/18 03/25/18 levETIRAcetam [Keppra] 750 mg PO TID 03/18/18 03/25/18 Previous Rx's Medication Instructions Recorded QUEtiapine [SEROquel] 200 mg PO HS 30 Days #30 tab 01/23/18 Atorvastatin [Lipitor] 80 mg PO HS tab 03/28/18 Methocarbamol [Robaxin] 750 mg PO QID PRN tab 03/28/18 Mirtazapine [Remeron] 45 mg PO HS tablet 03/28/18 Phenytoin Sodium Extended 200 mg PO BID cap 03/28/18 [Dilantin] QUEtiapine [SEROquel] 200 mg PO HS tab 03/28/18 Topiramate [Topamax] 100 mg PO BID 30 Days #60 tab 03/28/18 levETIRAcetam [Keppra] 750 mg PO TID tab 03/28/18 Allergies Allergy/AdvReac Type Severity Reaction Status Date / Time No Known Allergies Allergy Verified 05/11/18 12:55 Review of Systems ROS Statement: Those systems with pertinent positive or pertinent negative responses have been documented in the HPI. ROS Other: All systems not noted in ROS Statement are negative. Past Medical History Past Medical History: CVA/TIA, Hyperlipidemia, Seizure Disorder Additional Past Medical History / Comment(s): L intraparenchymal hemorrhage L lung pneumothorax , Migraine Headaches. History of Any Multi-Drug Resistant Organisms: None Reported Past Surgical History: No Surgical Hx Reported Additional Past Surgical History / Comment(s): COLONOSCOPY POLYPS REMOVED-NEG, bilateral cataract removal, R testicular surgery as a little boy. Past Anesthesia/Blood Transfusion Reactions: No Reported Reaction Additional Past Anesthesia/Blood Transfusion Reaction / Comment(s): Pt has never recieved blood. Past Psychological History: Anxiety, Bipolar, Depression, Panic Disorder Smoking Status: Current every day smoker Past Alcohol Use History: None Reported Past Drug Use History: Marijuana - Past Family History Father Family Medical History: Cancer, Hyperlipidemia, Hypertension, Prostate Disorder Additional Family Medical History / Comment(s): PROSTATE CA Mother Family Medical History: Osteoarthritis (OA) Additional Family Medical History / Comment(s): MOM IS 71 General Exam Limitations: no limitations Neurological exam: Present: alert, oriented X3, CN II-XII intact, abnormal gait (slightly slow ), reflexes normal. Absent: motor sensory deficit Psychiatric exam: Present: normal affect, normal mood, agitated Skin exam: Present: warm, dry, intact, normal color. Absent: rash Course Vital Signs 05/11/18 05/11/18 12:51 14:36 Temperature 98.1 F Pulse Rate 114 H 67 Respiratory 18 20 Rate Blood Pressure 164/107 136/88 O2 Sat by Pulse 98 95 Oximetry Medical Decision Making - Medical Decision Making pt evaluated by dr. Roach. We will await lab results and call Dr. Fisher. After discussing with Dr. Pressley patient will be followed up in outpatient setting. Patient Dilantin level was found to be less than 3 we will order 1 g of Dilantin. I discussed multiple times importance of following up with neurologist and management development specialist. pt did not have any seizure while in ER. pt able to have full movement of the right side witnessed by both me and dr. roach Patient decided to leave AMA and not get the Dilantin IV piggyback. Patient states he had lots of oral Dilantin all normal does take when he gets home is not explained to him that he needed to get a dose here because he is not therapeutic - Lab Data Result diagrams: 05/11/18 13:30 05/11/18 13:30 Lab Results 05/11/18 05/11/18 05/11/18 Range/Units 13:30 13:30 13:30 WBC 13.3 H (3.8-10.6) k/uL RBC 4.12 L (4.30-5.90) m/uL Hgb 13.8 (13.0-17.5) gm/dL Hct 40.9 (39.0-53.0) % MCV 99.1 (80.0-100.0) fL MCH 33.5 (25.0-35.0) pg MCHC 33.8 (31.0-37.0) g/dL RDW 12.9 (11.5-15.5) % Plt Count 265 (150-450) k/uL Neutrophils % 89 % Lymphocytes % 7 % Monocytes % 3 % Eosinophils % 1 % Basophils % 0 % Neutrophils # 11.8 H (1.3-7.7) k/uL Lymphocytes # 0.9 L (1.0-4.8) k/uL Monocytes # 0.4 (0-1.0) k/uL Eosinophils # 0.1 (0-0.7) k/uL Basophils # 0.0 (0-0.2) k/uL Sodium 140 (137-145) mmol/L Potassium 4.1 (3.5-5.1) mmol/L Chloride 113 H (98-107) mmol/L Carbon Dioxide 20 L (22-30) mmol/L Anion Gap 7 mmol/L BUN 17 (9-20) mg/dL Creatinine 1.11 (0.66-1.25) mg/dL Est GFR (CKD-EPI)AfAm 87 (>60 ml/min/1.73 sqM) Est GFR (CKD-EPI)NonAf 75 (>60 ml/min/1.73 sqM) Glucose 111 H (74-99) mg/dL Calcium 9.2 (8.4-10.2) mg/dL Total Bilirubin 0.5 (0.2-1.3) mg/dL AST 14 L (17-59) U/L ALT 27 (21-72) U/L Alkaline Phosphatase 67 (38-126) U/L Total Protein 6.1 L (6.3-8.2) g/dL Albumin 3.8 (3.5-5.0) g/dL Urine Color Urine Appearance (Clear) Urine pH (5.0-8.0) Ur Specific [place] (1.001-1.035) Urine Protein (Negative) Urine Glucose (UA) (Negative) Urine Ketones (Negative) Urine Blood (Negative) Urine Nitrite (Negative) Urine Bilirubin (Negative) Urine Urobilinogen (<2.0) mg/dL Ur Leukocyte Esterase (Negative) Urine RBC (0-5) /hpf Urine WBC (0-5) /hpf Urine Mucus (None) /hpf Urine Opiates Screen (NotDetected) Ur Oxycodone Screen (NotDetected) Urine Methadone Screen (NotDetected) Ur Propoxyphene Screen (NotDetected) Ur Barbiturates Screen (NotDetected) Phenytoin <3.0 ug/mL U Tricyclic Antidepress (NotDetected) Ur Phencyclidine Scrn (NotDetected) Ur Amphetamines Screen (NotDetected) U Methamphetamines Scrn (NotDetected) U Benzodiazepines Scrn (NotDetected) Urine Cocaine Screen (NotDetected) U Marijuana (THC) Screen (NotDetected) 05/11/18 Range/Units 14:30 WBC (3.8-10.6) k/uL RBC (4.30-5.90) m/uL Hgb (13.0-17.5) gm/dL Hct (39.0-53.0) % MCV (80.0-100.0) fL MCH (25.0-35.0) pg MCHC (31.0-37.0) g/dL RDW (11.5-15.5) % Plt Count (150-450) k/uL Neutrophils % % Lymphocytes % % Monocytes % % Eosinophils % % Basophils % % Neutrophils # (1.3-7.7) k/uL Lymphocytes # (1.0-4.8) k/uL Monocytes # (0-1.0) k/uL Eosinophils # (0-0.7) k/uL Basophils # (0-0.2) k/uL Sodium (137-145) mmol/L Potassium (3.5-5.1) mmol/L Chloride (98-107) mmol/L Carbon Dioxide (22-30) mmol/L Anion Gap mmol/L BUN (9-20) mg/dL Creatinine (0.66-1.25) mg/dL Est GFR (CKD-EPI)AfAm (>60 ml/min/1.73 sqM) Est GFR (CKD-EPI)NonAf (>60 ml/min/1.73 sqM) Glucose (74-99) mg/dL Calcium (8.4-10.2) mg/dL Total Bilirubin (0.2-1.3) mg/dL AST (17-59) U/L ALT (21-72) U/L Alkaline Phosphatase (38-126) U/L Total Protein (6.3-8.2) g/dL Albumin (3.5-5.0) g/dL Urine Color Yellow Urine Appearance Clear (Clear) Urine pH 6.0 (5.0-8.0) Ur Specific [employer] [place] 1.017 (1.001-1.035) Urine Protein Negative (Negative) Urine Glucose (UA) Negative (Negative) Urine Ketones Negative (Negative) Urine Blood Trace H (Negative) Urine Nitrite Negative (Negative) Urine Bilirubin Negative (Negative) Urine Urobilinogen <2.0 (<2.0) mg/dL Ur Leukocyte Esterase Negative (Negative) Urine RBC 2 (0-5) /hpf Urine WBC 1 (0-5) /hpf Urine Mucus Rare H (None) /hpf Urine Opiates Screen Not Detected (NotDetected) Ur Oxycodone Screen Not Detected (NotDetected) Urine Methadone Screen Not Detected (NotDetected) Ur Propoxyphene Screen Not Detected (NotDetected) Ur Barbiturates Screen Detected H (NotDetected) Phenytoin ug/mL U Tricyclic Antidepress Not Detected (NotDetected) Ur Phencyclidine Scrn Not Detected (NotDetected) Ur Amphetamines Screen Not Detected (NotDetected) U Methamphetamines Scrn Not Detected (NotDetected) U Benzodiazepines Scrn Not Detected (NotDetected) Urine Cocaine Screen Not Detected (NotDetected) U Marijuana (THC) Screen Not Detected (NotDetected) Disposition Clinical Impression: Headache, Generalized seizure, Radiculopathy of arm, Neck pain Disposition: Left Against Medical Advice Condition: Fair Instructions (If sedation given, give patient instructions): Acute Headache (ED ), Recurrent Seizures in Adults (ED) Is patient prescribed a controlled substance at d/c from ED?: No Referrals: Srikanth Ervin MD [Primary Care Provider] - 1-2 days Westley Sexton DO [Medical Doctor] - 1-2 days
[2018-05-11 13:42] LABS: Basophils % (A) 0 %; Eosinophils # (A) 0.1 k/uL (0-0.7); Eosinophils % (A) 1 %; HCT 40.9 % (39.0-53.0); HGB 13.8 gm/dL (13.0-17.5); Lymphocytes # (A) 0.9 k/uL (1.0-4.8); Lymphocytes % (A) 7 %; MCH 33.5 pg (25.0-35.0); MCHC 33.8 g/dL (31.0-37.0); MCV 99.1 fL (80.0-100.0); Mean Platelet Volume 7.1; Monocytes # (A) 0.4 k/uL (0-1.0); Monocytes % (A) 3 %; Neutrophils # (A) 11.8 k/uL (1.3-7.7); Neutrophils % (A) 89 %; Platelet Count 265 k/uL (150-450); RBC 4.12 m/uL (4.30-5.90); RDW 12.9 % (11.5-15.5); WBC 13.3 k/uL (3.8-10.6)
[2018-05-11 13:53] LABS: Potassium 4.1 mmol/L (3.5-5.1)
[2018-05-11 13:54] LABS: Albumin 3.8 g/dL (3.5-5.0); Calcium 9.2 mg/dL (8.4-10.2); Total Bilirubin 0.5 mg/dL (0.2-1.3); Total Protein 6.1 g/dL (6.3-8.2)
--- NOTE | 2018-05-11 14:24 | CT ---
EXAMINATION TYPE: CT brain cspine wo con DATE OF EXAM: 05/11/2018 COMPARISON: NONE HISTORY: Seizure CT DLP: 1340.5 mGycm. Automated Exposure Control for Dose Reduction was Utilized. TECHNIQUE: CT scan of the head and cervical spine are performed without contrast. FINDINGS: There is no acute intracranial hemorrhage or mass effect. Encephalomalacia is again seen in the left frontal lobe. The ventricles and sulci are unchanged in the interval. The globes are inta ct. Left ethmoid sinuses unchanged. Cervical spine is visualized in its entirety from C1 through upper thoracic levels and demonstrates s atisfactory alignment without evidence of acute fracture or dislocation. Prevertebral soft tissue ap pears within normal limits. The C1-C2 articulation is unremarkable. IMPRESSION: 1. No acute fracture or dislocation in the cervical spine. 2. No acute intracranial hemorrhage. 3. Stable encephalomalacia left frontal lobe
[2018-05-11] MEDS ORDERED: KETOROLAC 30 MG/ML 1 ML VIAL IVP STA (14:28)
[2018-05-11 14:37] VITALS: BP 136/88; PULSE 67; RESP 20
[2018-05-11 14:52] LABS: Appearance,Urine Clear (Clear); Bilirubin,Urine Negative (Negative); Blood,Urine Trace (Negative); Color,Urine Yellow; Glucose,Urine (UA) Negative (Negative); Ketones,Urine Negative (Negative); Leukocyte Esterase,Urine Negative (Negative); Mucus,Urine Rare /hpf; Nitrite,Urine Negative (Negative); Protein,Urine Negative (Negative); RBC,Urine 2 /hpf (0-5); Specific Gravity,Urine 1.017 (1.001-1.035); Urobilinogen,Urine <2.0 mg/dL (<2.0)
[2018-05-11 15:04] LABS: Amphetamine Screen,Urine Not Detected (NotDetected); Barbiturate Screen,Urine Detected (NotDetected); Benzodiazepines Screen,Urine Not Detected (NotDetected); Cocaine Screen,Urine Not Detected (NotDetected); Methadone Screen, Urine Not Detected (NotDetected); Opiate Screen,Urine Not Detected (NotDetected); Oxycodone Screen, Urine Not Detected (NotDetected); Phencyclidine Screen,Urine Not Detected (NotDetected); Tricyclic Antidepressant,Urine Not Detected (NotDetected); Urn Cannabinoid Scrn Not Detected (NotDetected)
[2018-05-11] MEDS ORDERED: PHENYTOIN SODIUM INJ 1,000 MG in SODIUM CHLORIDE 0.9% 100 ML IVPB STA (16:41)
== END 2018-05-11 17:06 | disposition left against medical advice (07) ==
LOC: EC 12:46
DX: G40.909 Epilepsy, unspecified, not intractable, without status epilepticus (principal); R51 Headache; M54.10 Radiculopathy, site unspecified; M54.2 Cervicalgia; E55.9 Vitamin D deficiency, unspecified; R11.0 Nausea; E78.5 Hyperlipidemia, unspecified; F41.9 Anxiety disorder, unspecified; F32.9 Major depressive disorder, single episode, unspecified; F17.200 Nicotine dependence, unspecified, uncomplicated; Z86.69 Personal history of other diseases of the nervous system and sense organs; Z86.73 Personal history of transient ischemic attack (TIA), and cerebral infarction without residual deficits; Z79.899 Other long term (current) drug therapy; Z53.20 Procedure and treatment not carried out because of patient's decision for unspecified reasons
CPT/HCPCS: 36415; 80053; 80177; 80185; 85025; 81001; 80306; 72125; 70450; 99284; 96374; 96375 ×3; J1200; J2765; J1885; J1170

== ENCOUNTER 2018-05-22 11:26 | Inpatient (IN) | payer MEDICAID, OTHER ==
--- NOTE | 2018-05-22 11:52 | ED ---
General Adult HPI - General Chief complaint: Psychiatric Symptoms Stated complaint: Mental health Time Seen by Provider: 05/22/18 11:35 Source: patient, RN notes reviewed, old records reviewed Mode of arrival: ambulatory Limitations: no limitations - History of Present Illness Initial comments: 52-year-old male history of bipolar depression presenting with increasing depression and suicidal thoughts. Patient states she has been off his medication for approximately one week. Yesterday evening he had significant thoughts of suicide. Denies self-harm. Denies suicide attempt. Patient states she has been attempting to call his therapist for one week but has been unable to contact him. Patient is requesting evaluation by psychiatry. Patient has previous history of intracranial hemorrhage with residual right-sided weakness. He states he believes he may have had some worsening of the symptoms over the past one week but does not want any workup or evaluation of these symptoms at this time. - Related Data Home Medications Medication Instructions Recorded Confirmed Carvedilol 25 mg PO BID 10/17/17 05/22/18 levETIRAcetam [Keppra] 750 mg PO TID 03/18/18 05/22/18 Aspirin 81 mg PO DAILY 05/22/18 05/22/18 Valsartan/Hydrochlorothiazide 1 tab PO DAILY 05/22/18 05/22/18 [Valsartan-Hctz 160-25 mg Tab] amLODIPine BESYLATE 5 mg PO DAILY 05/22/18 05/22/18 Previous Rx's Medication Instructions Recorded QUEtiapine [SEROquel] 200 mg PO HS 30 Days #30 tab 01/23/18 Atorvastatin [Lipitor] 80 mg PO HS tab 03/28/18 Phenytoin Sodium Extended 200 mg PO BID cap 03/28/18 [Dilantin] Allergies Allergy/AdvReac Type Severity Reaction Status Date / Time No Known Allergies Allergy Verified 05/22/18 11:52 Review of Systems ROS Statement: Those systems with pertinent positive or pertinent negative responses have been documented in the HPI. ROS Other: All systems not noted in ROS Statement are negative. Past Medical History Past Medical History: CVA/TIA, Hyperlipidemia, Seizure Disorder Additional Past Medical History / Comment(s): L intraparenchymal hemorrhage L lung pneumothorax , Migraine Headaches. History of Any Multi-Drug Resistant Organisms: None Reported Past Surgical History: No Surgical Hx Reported Additional Past Surgical History / Comment(s): COLONOSCOPY POLYPS REMOVED-NEG, bilateral cataract removal, R testicular surgery as a little boy. Past Anesthesia/Blood Transfusion Reactions: No Reported Reaction Additional Past Anesthesia/Blood Transfusion Reaction / Comment(s): Pt has never recieved blood. Past Psychological History: Anxiety, Bipolar, Depression, Panic Disorder Smoking Status: Current every day smoker Past Alcohol Use History: None Reported Past Drug Use History: Marijuana - Past Family History Father Family Medical History: Cancer, Hyperlipidemia, Hypertension, Prostate Disorder Additional Family Medical History / Comment(s): PROSTATE CA Mother Family Medical History: Osteoarthritis (OA) Additional Family Medical History / Comment(s): MOM IS 71 General Exam Limitations: no limitations General appearance: alert, in no apparent distress Head exam: Present: atraumatic, normocephalic Eye exam: Present: normal appearance, PERRL ENT exam: Present: normal exam Neck exam: Present: normal inspection. Absent: tenderness, meningismus Respiratory exam: Present: normal lung sounds bilaterally. Absent: respiratory distress, wheezes Cardiovascular Exam: Present: regular rate, normal rhythm Rectal exam: Present: deferred Extremities exam: Present: normal inspection, normal capillary refill. 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 Absent: cyanosis, diaphoretic Course Vital Signs 05/22/18 05/22/18 05/22/18 11:29 14:41 15:39 Temperature 97.9 F Pulse Rate 70 57 L 60 Respiratory 18 18 16 Rate Blood Pressure 119/115 173/107 170/93 O2 Sat by Pulse 98 95 97 Oximetry - Reevaluation(s) Reevaluation #1: 05/22/18 11:51 Patient requesting mental health evaluation, does not want workup otherwise, no head CT. Patient believes he symptoms are related to his depression. Medical Decision Making - Medical Decision Making 52-year-old male presents for psychiatric evaluation. Patient has increasing depression and suicidal ideation. He is medically cleared in the emergency department, evaluated by EPS. Recommendation at this time is for admission for further psychiatric evaluation and treatment. Patient will be admitted to this institution - Lab Data Lab Results 05/22/18 Range/Units 12:00 Urine Opiates Screen Not Detected (NotDetected) Ur Oxycodone Screen Not Detected (NotDetected) Urine Methadone Screen Not Detected (NotDetected) Ur Propoxyphene Screen Not Detected (NotDetected) Ur Barbiturates Screen Detected H (NotDetected) U Tricyclic Antidepress Not Detected (NotDetected) Ur Phencyclidine Scrn Not Detected (NotDetected) Ur Amphetamines Screen Not Detected (NotDetected) U Methamphetamines Scrn Not Detected (NotDetected) U Benzodiazepines Scrn Detected H (NotDetected) Urine Cocaine Screen Not Detected (NotDetected) U Marijuana (THC) Screen Not Detected (NotDetected) Disposition Clinical Impression: Depression, Suicidal ideation Disposition: ADMITTED IP TO THIS [facility] Condition: Stable Is patient prescribed a controlled substance at d/c from ED?: No Referrals: Srikanth Ervin MD [Primary Care Provider] - 1-2 days Time of Disposition: 16:01
[2018-05-22 12:47] LABS: Amphetamine Screen,Urine Not Detected (NotDetected); Barbiturate Screen,Urine Detected (NotDetected); Benzodiazepines Screen,Urine Detected (NotDetected); Cocaine Screen,Urine Not Detected (NotDetected); Methadone Screen, Urine Not Detected (NotDetected); Opiate Screen,Urine Not Detected (NotDetected); Oxycodone Screen, Urine Not Detected (NotDetected); Phencyclidine Screen,Urine Not Detected (NotDetected); Tricyclic Antidepressant,Urine Not Detected (NotDetected); Urn Cannabinoid Scrn Not Detected (NotDetected)
[2018-05-22] MEDS: amLODIPine 5 MG TAB PO SCH (14:42)
[2018-05-22] MEDS: PHENYTOIN SODIUM EXTENDED 100 MG CAP PO SCH ×2 (15:41→20:24)
[2018-05-22] MEDS: CARVEDILOL 12.5 MG TAB PO SCH ×2 (17:41→20:24)
[2018-05-22] MEDS: VALSARTAN 160 MG TAB PO SCH (17:42)
[2018-05-22] MEDS: HYDROCHLOROTHIAZIDE 25 MG TAB PO SCH (17:42)
[2018-05-22] MEDS ORDERED: MAGNESIUM HYDROXIDE 2,400 MG/10 ML CUP PO PRN (18:25)
[2018-05-22] MEDS ORDERED: ZIPRASIDONE 20 MG VIAL IM PRN (18:25)
[2018-05-22] MEDS ORDERED: LORazepam 1 MG TAB PO PRN (18:25)
[2018-05-22] MEDS ORDERED: MAG HYDROX/AL HYDROX/SIMETH 30 ML CUP PO PRN (18:25)
[2018-05-22] MEDS: ATORVASTATIN 80 MG TAB PO SCH (20:23)
[2018-05-22] MEDS: QUEtiapine 200 MG TAB PO SCH (20:24)
[2018-05-23] MEDS: NICOTINE 14MG/24HR PATCH TRANSDERM SCH (08:45)
[2018-05-23] MEDS: ASPIRIN 81 MG PO SCH (08:46)
[2018-05-23] MEDS: PHENYTOIN SODIUM EXTENDED 100 MG CAP PO SCH ×2 (08:46→20:42)
[2018-05-23] MEDS: amLODIPine 5 MG TAB PO SCH (08:46)
[2018-05-23] MEDS: VALSARTAN 160 MG TAB PO SCH (08:46)
[2018-05-23] MEDS: CARVEDILOL 12.5 MG TAB PO SCH ×2 (08:46→20:42)
[2018-05-23] MEDS: HYDROCHLOROTHIAZIDE 25 MG TAB PO SCH (08:47)
[2018-05-23 09:05] LABS: Basophils # (A) 0.1 k/uL (0-0.2); Basophils % (A) 1 %; Eosinophils # (A) 0.2 k/uL (0-0.7); Eosinophils % (A) 2 %; HCT 48.6 % (39.0-53.0); HGB 16.4 gm/dL (13.0-17.5); Lymphocytes # (A) 1.7 k/uL (1.0-4.8); Lymphocytes % (A) 16 %; MCH 33.1 pg (25.0-35.0); MCHC 33.6 g/dL (31.0-37.0); MCV 98.6 fL (80.0-100.0); Mean Platelet Volume 7.4; Monocytes # (A) 0.6 k/uL (0-1.0); Monocytes % (A) 6 %; Neutrophils % (A) 75 %; Platelet Count 269 k/uL (150-450); RBC 4.94 m/uL (4.30-5.90); RDW 12.3 % (11.5-15.5); WBC 10.6 k/uL (3.8-10.6)
[2018-05-23 09:06] LABS: ALT 26 U/L (21-72); AST 17 U/L (17-59); Albumin 4.5 g/dL (3.5-5.0); Alkaline Phosphatase 75 U/L (38-126); Anion Gap 9 mmol/L; Bilirubin, Delta 0.2 mg/dL (0.0-0.2); Bilirubin,Unconjugated 0.5 mg/dL (0.0-1.1); Blood Urea Nitrogen 13 mg/dL (9-20); Calcium 9.9 mg/dL (8.4-10.2); Carbon Dioxide 27 mmol/L (22-30); Chloride 104 mmol/L (98-107); Cholesterol 178 mg/dL (<200); Glucose 117 mg/dL (74-99); HDL Cholesterol 51 mg/dL (40-60); LDL Cholesterol,Calculated 84 mg/dL (0-99); Potassium 4.4 mmol/L (3.5-5.1); Sodium 140 mmol/L (137-145); Total Bilirubin 0.7 mg/dL (0.2-1.3); Total Protein 7.1 g/dL (6.3-8.2); Triglycerides 216 mg/dL (<150)
--- NOTE | 2018-05-23 10:53 | HP ---
HISTORY AND PHYSICAL DATE OF SERVICE/DICTATION: 05/23/2018 IDENTIFYING DATA: This patient is a 52-year-old single male who was admitted to the mental health unit through the emergency room for suicidal ideation. HISTORY OF PRESENT ILLNESS: The patient is well known to this mental health service. He has now been admitted to our unit 10 times since February of 2014. He states that he presented "depressed again". He reports being off of his antidepressant for the last 2 months. He states that it caused significant side effect including severe cephalgia and an electrifying sensation. He indicates he has been tearful. He has been feeling hopeless. He states he is overwhelmed with his current living situation. He has been renting a house and he feels that it is in too of a remote of the location. He feels isolated from others. Transportation is poor and he just feels like the montes are moving in on him. He has been staying with his mother and friends lately. He indicates sleep has been stable with the Seroquel. Appetite has been decreased, but he did eat here today. Energy level is low. He describes feeling anxious on a regular basis. He is endorsing no panic attacks. He has been diagnosed with major depressive disorder and alternatively depressive bipolar disorder. He is endorsing no actual hypomanic or manic episodes, but endorses mood swings and racing thoughts at times. He reports no auditory or visual hallucinations or any specific delusions. He reports no ownership of guns. PAST PSYCHIATRIC HISTORY: This is his 10th admission since February of 2014. He has had several admissions within the last 12 months. He does go to [facility] for outpatient care. He works with a therapist and possibly a physician academic support assistant for medication management. He states he has had a total of 3 suicide attempts in the past, one of them including a hanging attempt. He has complied with Seroquel 200 mg at bedtime. In the past, he has been on Remeron, Topamax, Prozac, Effexor, Celexa, Lexapro, Vistaril, and Cymbalta. He states that the Effexor was the worst and he will never go on that again. He feels that Celexa was helpful. He was on that a number of years and would like to try it again. He states that his primary care physician gave him Vistaril, which he would like to try again as he does not want to be on a benzodiazepine for anxiety. PAST MEDICAL HISTORY: He endorses a seizure disorder, hypertension. He stated he has had a stroke and believes he had a mini-stroke just this past weekend. He did present to the hospital and was diagnosed with a seizure. He is on anticonvulsant medication. MEDICATIONS: Medications include Norvasc, aspirin, Lipitor, Coreg, HydroDIURIL, Keppra, Dilantin, Diovan. ALLERGIES: No known drug allergies. CHEMICAL DEPENDENCY HISTORY: He reports no use of alcohol or illicit drugs. When reviewing his drug screen, however, it was positive for benzodiazepines and barbiturates. He states that he did take 3 Xanax lately. He did use a Percocet and also a Fioricet. He does have an extensive past history of substance use. FAMILY PSYCHIATRIC HISTORY: He states his mother is known to have bipolar disorder. No suicides in the family. FAMILY CHEMICAL DEPENDENCY HISTORY: Both parents noted to have alcoholism. SOCIAL HISTORY: The patient is 52 years old. He is single. He has no children. He has been residing alone, but has been staying with friends and family to avoid his rental home as he is unhappy with the location. He is unemployed. He is on a disability income. No history of service. He has a 10th grade education and later earned a GED. He reports having no living siblings. He does have frequent contact with his mother. LEGAL HISTORY: He states he has been arrested numerous times in the past. He has had greater than 3 DUI arrests. He was in senior living for 2 years. He states he has not had any arrests in the last 20 years. No abuse history reported. MENTAL STATUS EXAM: The patient is a male appearing his stated age. Hygiene and grooming are impaired. He has a disheveled appearance. He wears a mustache. He is dressed in his own clothing. He frequently runs his hand through his hair. Eye contact intermittent. Speech is fluent, spontaneous, non pressured. There is some psychomotor slowing. He endorses a depressed mood. He is briefly tearful. He reported suicidal ideation, but feels safe here in the hospital now. He reports no homicidal ideation, intent, or plan. He is endorsing no auditory or visual hallucinations or any specific delusions. There is no observed evidence of psychosis. Thought process was circumstantial at times. He could also be linear with brief questions. He demonstrates no tangential thinking, loose associations or flight of ideas. He does not appear hypomanic or manic. He demonstrates no verbal or physical aggressiveness. He demonstrates no involuntary repetitive movements. He is oriented to person, place, and date. He is able to name the days of the week backwards. He maintains a bland affect throughout the session. STRENGTHS: Housing, income, support from family. WEAKNESSES: Medication noncompliance. INTELLECT: Average. IMPRESSIONS: 1. Major depressive disorder, recurrent, severe, without psychosis. Rule out bipolar depression. Anxiety unspecified. History of polysubstance use disorder. 2. Hyperlipidemia, hypertension, reported history of CVA, seizure disorder. 3. Dissatisfaction with housing. PLAN: The patient has been admitted to the mental health unit. He is here voluntarily. We reviewed his presenting symptoms and treatment options. We decided we would continue the Seroquel 200 mg at bedtime. We would reinitiate the Celexa 20 mg daily for depressive and anxiety symptoms. Vistaril 25 mg 3 times a day will be available for anxiety symptoms. We will discontinue the Ativan. He will be seen by Internal Medicine for routine history and physical exam. Vital signs reviewed. Blood pressure looked good this morning. No lab values available at this time. Social Work will meet with the patient to complete a psychosocial assessment and begin discharge planning. We will monitor him for safety and encourage participation in the milieu. PROMISE / ESVIN: [id number] /
[2018-05-23] MEDS: CITALOPRAM HYDROBROMIDE 20 MG TAB PO SCH (11:05)
[2018-05-23] MEDS: hydrOXYzine PAMOATE 25 MG CAP PO PRN ×2 (11:07→19:22)
[2018-05-23 16:41] LABS: Hemoglobin A1C 5.1 % (4.0-6.0)
[2018-05-23] MEDS: ACETAMINOPHEN TAB 325 MG TAB PO PRN (16:56)
[2018-05-23] MEDS: QUEtiapine 200 MG TAB PO SCH (20:42)
[2018-05-23] MEDS: ATORVASTATIN 80 MG TAB PO SCH (20:42)
[2018-05-24] MEDS: NICOTINE 14MG/24HR PATCH TRANSDERM SCH (08:41)
[2018-05-24] MEDS: CITALOPRAM HYDROBROMIDE 20 MG TAB PO SCH (08:41)
[2018-05-24] MEDS: CARVEDILOL 12.5 MG TAB PO SCH ×2 (08:41→21:36)
[2018-05-24] MEDS: VALSARTAN 160 MG TAB PO SCH (08:42)
[2018-05-24] MEDS: HYDROCHLOROTHIAZIDE 25 MG TAB PO SCH (08:42)
[2018-05-24] MEDS: amLODIPine 5 MG TAB PO SCH (08:42)
[2018-05-24] MEDS: PHENYTOIN SODIUM EXTENDED 100 MG CAP PO SCH ×2 (08:42→21:36)
[2018-05-24] MEDS: ASPIRIN 81 MG PO SCH (08:42)
--- NOTE | 2018-05-24 09:18 | P.PN ---
Progress Note - Text Interval history: The patient is found in the hallway he follows me to an interview room. He indicates he continues to have hopelessness thinking and suicidal thoughts. He states he can't believe this is where he is at in life. We reviewed his psychotropic medications and his questions were answered. He was able to sleep last night he did eat breakfast this morning he indicates he will be attending groups today. He is somewhat somatically preoccupied. We reviewed his recent blood pressure readings and he was reassured. Mental status exam: The patient is alert he is dressed in hospital gowns. He is ambulating without use of an implement. He describes his mood as being in sad hopeless and still has suicidal thoughts. He describes feelings of anger towards himself. He is reporting no auditory or visual hallucinations or any specific delusions. There is no observed evidence of psychosis. Thought process is linear he demonstrates no tangential thinking loose associations or flight of ideas. He does not appear hypomanic or manic. He demonstrates no verbal or physical aggressiveness. Insight and judgment limited. Plan: The patient will continue on his current psychotropic medication. He is encouraged to fully participate in the milieu. Vital signs reviewed. We will continue to monitor him for safety.
[2018-05-24] MEDS: ACETAMINOPHEN TAB 325 MG TAB PO PRN ×2 (10:08→18:37)
[2018-05-24] MEDS: hydrOXYzine PAMOATE 25 MG CAP PO PRN ×2 (10:09→18:37)
--- NOTE | 2018-05-24 17:40 | P.HPIM ---
History of Present Illness H&P Date: 05/24/18 Chief Complaint: Suicidal ideations Josey is a 52-year-old male well-known to my practice with a history of bipolar disorder and depression presenting with increasing depression and suicidal ideations, patient states he got frustrated and stopped taking all his meds approximately a week ago. He had ongoing suicidal thoughts with increased agitation. As of admission he had not harmed himself. No plan was put together to do harm to himself. Patient did state to me yearly and try to call his therapist over and over and over again and his therapist would not call him back we had started him at started him on Vistaril 3 times daily to help with his anxiety as he has been a dictated to benzodiazepines in the past and he steadfastly stated he did not want to be placed on them. He also developed increased right sided weakness which actually originally occurred secondary to a neurologic stroke is 3 years ago symptoms have become increased over the last week we did perform a CAT scan that did not show any new bleeding. I believe this may be a TIA we may repeat his CAT scan once patient is discharged from the hospital Review of Systems Constitutional: Reports as per HPI Ears, nose, mouth and throat: Reports as per HPI Cardiovascular: Reports as per HPI Respiratory: Reports as per HPI Gastrointestinal: Reports as per HPI Genitourinary: Reports as per HPI Musculoskeletal: Reports as per HPI (Right-sided weakness right arm right leg walking with a clip to gait, bruising to the dorsum of the right foot suggesting foot drop) Psychiatric: Reports anxiety, Reports depression, Reports paranoia Endocrine: Reports as per HPI Past Medical History Past Medical History: CVA/TIA, Hyperlipidemia, Seizure Disorder Additional Past Medical History / Comment(s): L intraparenchymal hemorrhage L lung pneumothorax , Migraine Headaches. Left sided hemorrhagic stroke approximately 3 years ago occurred because patient had stopped all meds including antihypertensives History of Any Multi-Drug Resistant Organisms: None Reported Past Surgical History: No Surgical Hx Reported Additional Past Surgical History / Comment(s): COLONOSCOPY POLYPS REMOVED-NEG, bilateral cataract removal, R testicular surgery as a little boy. Past Anesthesia/Blood Transfusion Reactions: No Reported Reaction Additional Past Anesthesia/Blood Transfusion Reaction / Comment(s): Pt has never recieved blood. Smoking Status: Current every day smoker - Past Family History Father Family Medical History: Cancer, Hyperlipidemia, Hypertension, Prostate Disorder Additional Family Medical History / Comment(s): PROSTATE CA Mother Family Medical History: Osteoarthritis (OA) Additional Family Medical History / Comment(s): MOM IS 71 Medications and Allergies Home Medications Medication Instructions Recorded Confirmed Type Carvedilol 25 mg PO BID 10/17/17 05/22/18 History QUEtiapine [SEROquel] 200 mg PO HS 30 Days #30 tab 01/23/18 05/22/18 Rx levETIRAcetam [Keppra] 750 mg PO TID 03/18/18 05/22/18 History Atorvastatin [Lipitor] 80 mg PO HS tab 03/28/18 05/22/18 Rx Phenytoin Sodium Extended 200 mg PO BID cap 03/28/18 05/22/18 Rx [Dilantin] Aspirin 81 mg PO DAILY 05/22/18 05/22/18 History Valsartan/Hydrochlorothiazide 1 tab PO DAILY 05/22/18 05/22/18 History [Valsartan-Hctz 160-25 mg Tab] amLODIPine BESYLATE 5 mg PO DAILY 05/22/18 05/22/18 History Allergies Allergy/AdvReac Type Severity Reaction Status Date / Time No Known Allergies Allergy Verified 05/22/18 11:52 Physical Exam Osteopathic Statement: *. No significant issues noted on an osteopathic structural exam other than those noted in the History and Physical/Consult. Vitals: Vital Signs Temp Pulse Pulse Resp BP BP 05/24/18 08:45 81 122/78 05/24/18 05:29 97.7 F 77 18 99/66 05/23/18 21:04 72 142/93 General: [Patient awake, alert and oriented times 3. Patient in no acute distress.] HEENT: [PERRL. EOMI. No pharyngeal erythema or exudate.] Neck: [No adenopathy.] Cardiac: [Heart regular in rate and rhythm. No S3. No S4. No clicks, rubs. No murmur.] Lungs: [Clear to auscultation bilaterally.] Abdomen: [No mass. No organomegaly. Bowel sounds presnt and normoactive in all 4 quadrants.] Extremes: [No edema no cyanosis no claudication normal pulses] right-sided weakness both right arm and right leg with what appears to be a drop foot on the right leg although this is improved from the last visit approximately 10 days ago in the office : Normal male genitalia Musculoskeletal: [No joint erythema, edema or tenderness.] Skin: [No rash.] Neurologic: [No lateralizing deficits. CN II - XII grossly intact.] Lymphatic: [No adenopathy.] Results CBC & Chem 7: 05/23/18 08:20 05/23/18 08:20 Thrombosis Risk Factor Assmnt - DVT/VTE Prophylaxis DVT/VTE Prophylaxis: Low risk, early ambulation encouraged - Choose All That Apply Each Factor Represents 1 point: Age 41-60 years Other congenital or acquired thrombophilia - If yes, enter type in comment: No Thrombosis Risk Factor Assessment Total Risk Factor Score: 1 Thrombosis Risk Factor Assessment Level: Low Risk Assessment and Plan (1) History of stroke Narrative/Plan: Patient appears to have had a recent TIA blood pressure is currently elevated Will start patient on hydralazine 25 mg twice daily as well as the other antihypertensives he's currently taking Current Visit: No Status: Acute Priority: Low Code(s): Z86.73 - PRSNL HX OF TIA (TIA), AND CEREB INFRC W/O RESID DEFICITS SNOMED Code(s): 134142145 (2) Hypertension Narrative/Plan: Currently not well controlled, start hydralazine 25 mg twice daily We'll reevaluate blood pressure readings tomorrow Current Visit: No Status: Acute Priority: Low Code(s): I10 - ESSENTIAL (PRIMARY) HYPERTENSION SNOMED Code(s): 54502894 Plan: Uncontrolled hypertension Add hydralazine 25 twice daily to current blood pressure regimen We'll reevaluate in the morning to assess efficacy of blood pressure meds We will continue to follow with you we'll consider repeating CT of brain and symptoms do not improve Time with Patient: Greater than 30
[2018-05-24 18:00] LABS: Appearance,Urine Clear (Clear); Bilirubin,Urine Negative (Negative); Blood,Urine Small (Negative); Color,Urine Yellow; Glucose,Urine (UA) Negative (Negative); Ketones,Urine Negative (Negative); Leukocyte Esterase,Urine Negative (Negative); Mucus,Urine Rare /hpf; Nitrite,Urine Negative (Negative); Protein,Urine Negative (Negative); RBC,Urine 5 /hpf (0-5); Specific Gravity,Urine 1.012 (1.001-1.035); Squamous Epithelial Cell,Urine <1 /hpf (0-4); Urobilinogen,Urine <2.0 mg/dL (<2.0); WBC,Urine <1 /hpf (0-5)
[2018-05-24] MEDS: hydrALAZINE HCL 25 MG TAB PO SCH ×2 (21:36→23:09)
[2018-05-24] MEDS: QUEtiapine 200 MG TAB PO SCH (21:37)
[2018-05-24] MEDS: ATORVASTATIN 80 MG TAB PO SCH (21:37)
[2018-05-25] MEDS: CITALOPRAM HYDROBROMIDE 20 MG TAB PO SCH (09:02)
[2018-05-25] MEDS: NICOTINE 14MG/24HR PATCH TRANSDERM SCH (09:02)
[2018-05-25] MEDS: HYDROCHLOROTHIAZIDE 25 MG TAB PO SCH (09:03)
[2018-05-25] MEDS: CARVEDILOL 12.5 MG TAB PO SCH ×2 (09:03→20:53)
[2018-05-25] MEDS: ASPIRIN 81 MG PO SCH (09:03)
[2018-05-25] MEDS: amLODIPine 5 MG TAB PO SCH (09:03)
[2018-05-25] MEDS: hydrALAZINE HCL 25 MG TAB PO SCH ×2 (09:04→20:53)
[2018-05-25] MEDS: VALSARTAN 160 MG TAB PO SCH (09:04)
[2018-05-25] MEDS: PHENYTOIN SODIUM EXTENDED 100 MG CAP PO SCH ×2 (09:05→20:54)
--- NOTE | 2018-05-25 11:00 | P.PN ---
Subjective Progress Note Date: 05/25/18 Principal diagnosis: Depression, suicidal ideations, hypertension uncontrolled Patient had hydralazine 25 mg by mouth twice a day 30 yesterday blood pressures have been completely stable Objective - Vital Signs Vital signs: Vital Signs Temp 98.3 F 05/25/18 06:47 Pulse 63 05/25/18 06:47 Resp 14 05/25/18 06:47 BP 117/75 05/25/18 09:08 Pulse Ox 97 05/22/18 18:56 - Exam General: [Patient awake, alert and oriented times 3. Patient in no acute distress.] HEENT: [PERRL. EOMI. No pharyngeal erythema or exudate.] Neck: [No adenopathy.] Cardiac: [Heart regular in rate and rhythm. No S3. No S4. No clicks, rubs. No murmur.] Lungs: [Clear to auscultation bilaterally.] Abdomen: [No mass. No organomegaly. Bowel sounds presnt and normoactive in all 4 quadrants.] Extremes: [No edema no cyanosis no claudication normal pulses right-sided weakness, both in the arm and the leg the dorsum of his right foot has some mild ecchymosis suggesting he may be experiencing drop foot] : [] Musculoskeletal: [No joint erythema, edema or tenderness.] Skin: [No rash.] Neurologic: [No lateralizing deficits. CN II - XII grossly intact.] Lymphatic: [No adenopathy.] - Labs CBC & Chem 7: 05/23/18 08:20 05/23/18 08:20 Labs: Abnormal Lab Results - Last 24 Hours (Table) 05/24/18 Range/Units 17:30 Urine Blood Small H (Negative) Urine Mucus Rare H (None) /hpf Assessment and Plan (1) History of stroke Current Visit: No Status: Acute Priority: Low Code(s): Z86.73 - PRSNL HX OF TIA (TIA), AND CEREB INFRC W/O RESID DEFICITS SNOMED Code(s): 104455592 (2) Hypertension Current Visit: No Status: Acute Priority: Low Code(s): I10 - ESSENTIAL (PRIMARY) HYPERTENSION SNOMED Code(s): 38272555 Plan: Uncontrolled hypertension Add hydralazine 25 twice daily to current blood pressure regimen response to hydralazine was excellent blood pressures are completely stable at this time We'll reevaluate in the morning to assess efficacy of blood pressure meds We will continue to follow with you we'll consider repeating CT of brain and symptoms do not improve Time with Patient: Greater than 30
[2018-05-25] MEDS: hydrOXYzine PAMOATE 25 MG CAP PO PRN ×2 (13:36→20:55)
--- NOTE | 2018-05-25 15:11 | P.PN ---
Progress Note - Text Progress Note Date: 05/25/18 Interval history: Patient [place] in [facility] [place]. He makes reference to having had a mini stroke before he came in the hospital and was admitted for depression. He reports that he had been off antidepressant it sounds like. He is now on Celexa. He does not voice any adverse psychotropic medication side effects. He is eating. Mental status exam: He is alert and cooperative with the interview. Speech is fluent, not rapid or pressured. Thought processes organized. His mood is dep ressed. He does not show any evidence of psychosis. He denies any thoughts of harm to self or others. No evidence of any agitation. Plan: Patient will be maintained on current psychotropic medication regimen. We'll continue to monitor his ongoing response to treatment monitor for any medication side effects. We'll continue to cover this patient to the weekend.
[2018-05-25] MEDS: ACETAMINOPHEN TAB 325 MG TAB PO PRN (19:25)
[2018-05-25] MEDS: ATORVASTATIN 80 MG TAB PO SCH (20:53)
[2018-05-25] MEDS: QUEtiapine 200 MG TAB PO SCH (20:53)
[2018-05-26] MEDS: NICOTINE 14MG/24HR PATCH TRANSDERM SCH (08:06)
[2018-05-26] MEDS: CITALOPRAM HYDROBROMIDE 20 MG TAB PO SCH (08:07)
[2018-05-26] MEDS: PHENYTOIN SODIUM EXTENDED 100 MG CAP PO SCH ×2 (08:07→20:59)
[2018-05-26] MEDS: ASPIRIN 81 MG PO SCH (08:07)
[2018-05-26] MEDS: amLODIPine 5 MG TAB PO SCH (09:02)
[2018-05-26] MEDS: CARVEDILOL 12.5 MG TAB PO SCH ×2 (09:02→20:58)
[2018-05-26] MEDS: hydrALAZINE HCL 25 MG TAB PO SCH ×2 (09:02→20:58)
[2018-05-26] MEDS: HYDROCHLOROTHIAZIDE 25 MG TAB PO SCH (09:02)
[2018-05-26] MEDS: VALSARTAN 160 MG TAB PO SCH (09:02)
--- NOTE | 2018-05-26 12:44 | P.PN ---
Progress Note - Text Progress Note Date: 05/26/18 Interval history: Patient seen in [facility] today. He reports that he did sleep through the night. He states that he doesn't have much of an appetite but he is making himself eat some. He has been in contact with his mom. He is consistent with taking his psychotropic medications. He denies any adverse psychotropic medication side effects. Mental status exam: He is alert and cooperative with the interview. His speech is fluent, not rapid or pressured. Thought processes organized. His mood is depressed. He denies any thoughts of harm to self or others. No evidence of any active psychosis or agitation. Plan: Patient be maintained on current psychotropic medication regimen. Continue to monitor for any medication side effects and monitor his ongoing response to treatment.
[2018-05-26] MEDS: ACETAMINOPHEN TAB 325 MG TAB PO PRN ×2 (13:57→19:43)
[2018-05-26] MEDS: hydrOXYzine PAMOATE 25 MG CAP PO PRN ×2 (13:57→22:12)
[2018-05-26] MEDS: QUEtiapine 200 MG TAB PO SCH (20:58)
[2018-05-26] MEDS: ATORVASTATIN 80 MG TAB PO SCH (20:58)
[2018-05-27] MEDS: HYDROCHLOROTHIAZIDE 25 MG TAB PO SCH (09:11)
[2018-05-27] MEDS: ASPIRIN 81 MG PO SCH (09:11)
[2018-05-27] MEDS: NICOTINE 14MG/24HR PATCH TRANSDERM SCH (09:11)
[2018-05-27] MEDS: CARVEDILOL 12.5 MG TAB PO SCH ×2 (09:11→20:35)
[2018-05-27] MEDS: PHENYTOIN SODIUM EXTENDED 100 MG CAP PO SCH ×2 (09:12→20:35)
[2018-05-27] MEDS: amLODIPine 5 MG TAB PO SCH (09:12)
[2018-05-27] MEDS: CITALOPRAM HYDROBROMIDE 20 MG TAB PO SCH (09:12)
[2018-05-27] MEDS: hydrALAZINE HCL 25 MG TAB PO SCH ×2 (09:12→21:07)
[2018-05-27] MEDS: VALSARTAN 160 MG TAB PO SCH (09:13)
[2018-05-27] MEDS: hydrOXYzine PAMOATE 25 MG CAP PO PRN ×2 (10:03→18:30)
--- NOTE | 2018-05-27 10:03 | P.PN ---
Progress Note - Text Interval history: The patient is found in his room he follows me to an interview room. Indicates his mood is depressed he feels hopeless and states he feels useless. He states he has no idea what he can change after he is discharged to help his situation. We discussed engaging more fully in outpatient services with [facility]. He continues to consider changing his residence as he feels too isolated at home. He states he did not sleep well last night staff recorded he slept 6 hours. Appetite stable. Mental status exam: The patient is alert he is a disheveled appearance he is dressed in the same clothing as the other day. He endorses a depressed mood with hopelessness thinking. He states he feels useless. He reports no homicidal ideation intent or plan. He does continue to have suicidal thoughts. He is reporting no auditory or visual hallucinations or any specific delusions. There is no observed evidence of psychosis. He demonstrates no tangential thinking loose associations or flight of ideas. Overall he is quite pessimistic and it is difficult to have him consider suggestions for cognitive reframing. He demonstrates no verbal or physical aggressiveness. Insight and judgment limited. He is oriented to person place and date. Plan: The patient will continue his current medication we will titrate the Celexa to 40 mg daily. We will monitor him for safety and encourage full participation in the milieu. Vital signs reviewed. He requires continued psychiatric hospitalization.
[2018-05-27] MEDS: ACETAMINOPHEN TAB 325 MG TAB PO PRN (18:31)
[2018-05-27] MEDS: ATORVASTATIN 80 MG TAB PO SCH (20:34)
[2018-05-27] MEDS: QUEtiapine 200 MG TAB PO SCH (20:35)
[2018-05-28] MEDS: HYDROCHLOROTHIAZIDE 25 MG TAB PO SCH (08:49)
[2018-05-28] MEDS: amLODIPine 5 MG TAB PO SCH (08:49)
[2018-05-28] MEDS: NICOTINE 14MG/24HR PATCH TRANSDERM SCH (08:49)
[2018-05-28] MEDS: CARVEDILOL 12.5 MG TAB PO SCH ×2 (08:49→21:00)
[2018-05-28] MEDS: hydrALAZINE HCL 25 MG TAB PO SCH ×2 (08:50→21:01)
[2018-05-28] MEDS: PHENYTOIN SODIUM EXTENDED 100 MG CAP PO SCH ×2 (08:50→21:01)
[2018-05-28] MEDS: CITALOPRAM HYDROBROMIDE 20 MG TAB PO SCH (08:50)
[2018-05-28] MEDS: ASPIRIN 81 MG PO SCH (08:50)
[2018-05-28] MEDS: VALSARTAN 160 MG TAB PO SCH (08:50)
[2018-05-28] MEDS: ACETAMINOPHEN TAB 325 MG TAB PO PRN ×2 (09:22→19:02)
--- NOTE | 2018-05-28 10:12 | P.PN ---
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 He indicates his mood is depressed he feels hopeless. He states yesterday was a bad day. He felt his mood was much more depressed for unexplained reasons. He indicates he did not attend groups throughout the day but will go today. We discussed the need for him to begin planning for the future. He is most bothered by his current residence. We discussed his options. He continues to be quite pessimistic and does not receive input very w john. He continues to externalize his problems to the medication and continues to state he hopes the medicine works. Mental status exam: The patient is alert hygiene is adequate he is a disheveled appearance. He is dressed in his own clothing. Eye contact is appropriate speech is fluent spontaneous nonpressured. He reports a depressed mood with hopelessness thinking. He reports ongoing passive suicidal thoughts. He reports no homicidal ideation intent or plan. He demonstrates no pressured speech. He demonstrates no tangential thinking loose associations or flight of ideas. He does not appear hypomanic or manic. He demonstrates no involuntary repetitive movements. He demonstrates no verbal or physical aggressiveness. Insight and judgment are impaired. He is oriented to person place and date. Plan: The patient will continue on his current psychotropic medication. We will monitor him for safety. He is encouraged to fully participate in the milieu. He is encouraged to attempt some future oriented planning. We will monitor him for safety and encourage participation in the milieu. He requires continued psychiatric hospitalization.
[2018-05-28] MEDS: hydrOXYzine PAMOATE 25 MG CAP PO PRN (16:05)
[2018-05-28] MEDS: ATORVASTATIN 80 MG TAB PO SCH (21:00)
[2018-05-28] MEDS: QUEtiapine 200 MG TAB PO SCH (21:01)
[2018-05-29] MEDS: NICOTINE 14MG/24HR PATCH TRANSDERM SCH (08:05)
[2018-05-29] MEDS: CITALOPRAM HYDROBROMIDE 20 MG TAB PO SCH (08:06)
[2018-05-29] MEDS: HYDROCHLOROTHIAZIDE 25 MG TAB PO SCH (08:06)
[2018-05-29] MEDS: hydrALAZINE HCL 25 MG TAB PO SCH ×2 (08:06→21:17)
[2018-05-29] MEDS: VALSARTAN 160 MG TAB PO SCH (08:06)
[2018-05-29] MEDS: ASPIRIN 81 MG PO SCH (08:06)
[2018-05-29] MEDS: CARVEDILOL 12.5 MG TAB PO SCH ×2 (08:06→21:16)
[2018-05-29] MEDS: PHENYTOIN SODIUM EXTENDED 100 MG CAP PO SCH ×2 (08:06→21:17)
[2018-05-29] MEDS: amLODIPine 5 MG TAB PO SCH (08:06)
--- NOTE | 2018-05-29 10:04 | P.PN ---
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 He continues to feel that he is severely depressed and is stuck. He states he did speak with the community mental health liaison yesterday and is hoping that he can facilitate his transfer to a different outpatient therapist. He states he went to 2 groups yesterday. We discussed the importance of him participating fully in the milieu. He has no questions or concerns regarding his medication. Mental status exam: The patient is alert hygiene grooming impaired. He is dressed in the same clothing. Eye contact is appropriate speech is fluent and spontaneous he will interrupt in conversation at times. He maintains a bland affect. He endorses a depressed hopeless mood. He reports feeling safe here in the hospital. He denies having any homicidal ideation intent or plan. He endorses no auditory or visual hallucinations or any specific delusions. He demonstrates no verbal or physical aggressiveness no involuntary repetitive movements. Insight and judgment limited. Plan: The patient will continue on his current psychotropic medication. We continue to offer suggestions for cognitive reframing. He identifies a goal of wanting to change his residence and we discussed steps in terms of planning for that move. He is hoping his outpatient therapist will be changed to someone he has worked with before. Vital signs reviewed. We will continue to monitor him for safety.
[2018-05-29] MEDS: hydrOXYzine PAMOATE 25 MG CAP PO PRN ×2 (11:01→21:17)
[2018-05-29] MEDS: ACETAMINOPHEN TAB 325 MG TAB PO PRN ×2 (11:02→19:23)
[2018-05-29] MEDS: ATORVASTATIN 80 MG TAB PO SCH (21:16)
[2018-05-29] MEDS: QUEtiapine 200 MG TAB PO SCH (21:17)
[2018-05-30] MEDS: hydrALAZINE HCL 25 MG TAB PO SCH ×2 (08:46→20:53)
[2018-05-30] MEDS: VALSARTAN 160 MG TAB PO SCH (08:46)
[2018-05-30] MEDS: HYDROCHLOROTHIAZIDE 25 MG TAB PO SCH (08:46)
[2018-05-30] MEDS: ASPIRIN 81 MG PO SCH (08:46)
[2018-05-30] MEDS: NICOTINE 14MG/24HR PATCH TRANSDERM SCH (08:46)
[2018-05-30] MEDS: CARVEDILOL 12.5 MG TAB PO SCH ×2 (08:47→20:53)
[2018-05-30] MEDS: PHENYTOIN SODIUM EXTENDED 100 MG CAP PO SCH ×2 (08:47→20:54)
[2018-05-30] MEDS: CITALOPRAM HYDROBROMIDE 20 MG TAB PO SCH (08:47)
[2018-05-30] MEDS: ACETAMINOPHEN TAB 325 MG TAB PO PRN ×2 (08:58→16:34)
[2018-05-30] MEDS: amLODIPine 5 MG TAB PO SCH (09:04)
--- NOTE | 2018-05-30 11:22 | P.PN ---
Progress Note - Text Interval history: The patient is found in group he follows me to an interview room. His former therapist from [facility] visited him he states that was a good talk and he feels a little better as a result. We spent some time discussing discharge planning. We reviewed his psychotropic medication. He has no questions or concerns regarding his medication at this time. He states after his discussion yesterday with Davey he is willing to recommit to outpatient care and complying with appointments. Mental status exam: The patient is alert hygiene is adequate grooming is improved from yesterday. He is dressed in the same clothing. Speech is fluent spontaneous nonpressured. He maintains a constricted affect. He reports a depressed mood with still some hopelessness thinking. He indicates he safe here in the hospital. No homicidal ideation intent or plan. No auditory or visual hallucinations no specific delusions. He does not appear hypomanic or manic. Insight and judgment slowly improving. Plan: The patient will continue on his current psychotropic medication. He is encouraged to fully participate in the milieu. We discussed possible discharge early next week. Vital signs reviewed. We will continue to monitor him for safety.
[2018-05-30] MEDS: hydrOXYzine PAMOATE 25 MG CAP PO PRN (13:55)
[2018-05-30] MEDS: ATORVASTATIN 80 MG TAB PO SCH (20:53)
[2018-05-30] MEDS: QUEtiapine 200 MG TAB PO SCH (20:54)
--- NOTE | 2018-05-31 09:03 | P.PN ---
Progress Note - Text Interval history: The patient is found in the hallway he follows me to an interview room. He indicates his mood is a little better yet. He describes having some difficulty with sleep last night and asked that we adjust the Seroquel. We discussed titrating it to 300 mg at bedtime and he is agreeable. He's been compliant with his other psychotropic medication and has no other concerns. He reports he did better attending groups yesterday. Appetite stable. He has showered. Staff reported that he slept 7 hours last night. Mental status exam: The patient is alert hygiene grooming are much improved. He is dressed in his own clothing. Eye contact is appropriate speech is fluent and spontaneous nonpressured. Affect remains constricted. He reports feeling better today. He has less hopeless thinking he does feel safe here in the hospital. He is reporting no homicidal ideation intent or plan. He is reporting no auditory or visual hallucinations or any specific delusions. There is no observed evidence of psychosis. He does not appear hypomanic or manic. He demonstrates no tangential thinking loose associations or flight of ideas. Insight and judgment slowly improving. He demonstrates no verbal or physical aggressiveness. He demonstrates no involuntary repetitive movements. Plan: The patient will continue on his current psychotropic medication however we will titrate the Seroquel to 300 mg at bedtime. He is cautioned to watch for any symptoms of hypotension. Vital signs reviewed. He is encouraged to fully comply with groups. I anticipate discharging him Sunday or Sunday depending on his clinical status.
[2018-05-31] MEDS: NICOTINE 14MG/24HR PATCH TRANSDERM SCH (09:07)
[2018-05-31] MEDS: PHENYTOIN SODIUM EXTENDED 100 MG CAP PO SCH ×2 (09:07→21:00)
[2018-05-31] MEDS: CARVEDILOL 12.5 MG TAB PO SCH ×2 (09:07→21:01)
[2018-05-31] MEDS: hydrALAZINE HCL 25 MG TAB PO SCH ×2 (09:07→21:00)
[2018-05-31] MEDS: ASPIRIN 81 MG PO SCH (09:07)
[2018-05-31] MEDS: VALSARTAN 160 MG TAB PO SCH (09:07)
[2018-05-31] MEDS: CITALOPRAM HYDROBROMIDE 20 MG TAB PO SCH (09:07)
[2018-05-31] MEDS: amLODIPine 5 MG TAB PO SCH (09:07)
[2018-05-31] MEDS: HYDROCHLOROTHIAZIDE 25 MG TAB PO SCH (09:07)
[2018-05-31] MEDS: ACETAMINOPHEN TAB 325 MG TAB PO PRN ×3 (09:08→21:03)
[2018-05-31] MEDS: hydrOXYzine PAMOATE 25 MG CAP PO PRN (11:06)
[2018-05-31] MEDS: ATORVASTATIN 80 MG TAB PO SCH (21:00)
[2018-05-31] MEDS: QUEtiapine 100 MG TAB PO SCH (21:00)
[2018-06-01] MEDS: NICOTINE 14MG/24HR PATCH TRANSDERM SCH (09:01)
[2018-06-01] MEDS: CARVEDILOL 12.5 MG TAB PO SCH ×2 (09:01→21:55)
[2018-06-01] MEDS: PHENYTOIN SODIUM EXTENDED 100 MG CAP PO SCH ×2 (09:01→21:55)
[2018-06-01] MEDS: ASPIRIN 81 MG PO SCH (09:02)
[2018-06-01] MEDS: VALSARTAN 160 MG TAB PO SCH (09:02)
[2018-06-01] MEDS: CITALOPRAM HYDROBROMIDE 20 MG TAB PO SCH (09:02)
[2018-06-01] MEDS: amLODIPine 5 MG TAB PO SCH (09:02)
[2018-06-01] MEDS: HYDROCHLOROTHIAZIDE 25 MG TAB PO SCH (09:03)
[2018-06-01] MEDS: hydrALAZINE HCL 25 MG TAB PO SCH ×2 (09:03→21:55)
[2018-06-01] MEDS: ACETAMINOPHEN TAB 325 MG TAB PO PRN ×2 (13:37→19:09)
[2018-06-01] MEDS: hydrOXYzine PAMOATE 25 MG CAP PO PRN (13:37)
--- NOTE | 2018-06-01 15:53 | P.PN ---
Progress Note - Text Progress Note Date: 06/01/18 interval history: This is a 52-year-old male who is well-known to myself who was lying in bed and did not want to get up at lunchtime and was interviewed at bedside. He still states that he is depressed hopeless helpless and difficulty focusing. Mental status examination: This is a 52-year-old male who looks older than his stated age. He was dressed in sweat pants and T-shirt was able to sit up and did not have any abnormalities and movement. His attitude and behaviors guarded withdrawn and indifferent. His mood is depressed anxious fearful hopelessness. Affect is flat and blunted constricted and restricted. Orientation person place and time situation is intact. Thought content within normal. Risk factors mild suicidal ideation. Perception within normal denies any auditory or visual or tactile hallucinations. Processes concrete and circumstantial and tangential. Concentration is slow but within normal. Recent and remote memory are within normal. Intelligence is below average. Judgment and insight are fair. Plan: Will continue 15 minute checks than his usual [facility] milieu therapeutic environment. He is engaging in groups in the [facility] and milieu therapeutic environment and adherent to a medical treatment plan. His medications will be continued as ordered.
[2018-06-01] MEDS: QUEtiapine 100 MG TAB PO SCH (21:54)
[2018-06-01] MEDS: ATORVASTATIN 80 MG TAB PO SCH (21:55)
[2018-06-02] MEDS: NICOTINE 14MG/24HR PATCH TRANSDERM SCH (08:50)
[2018-06-02] MEDS: VALSARTAN 160 MG TAB PO SCH (08:51)
[2018-06-02] MEDS: CITALOPRAM HYDROBROMIDE 20 MG TAB PO SCH (08:51)
[2018-06-02] MEDS: ASPIRIN 81 MG PO SCH (08:51)
[2018-06-02] MEDS: CARVEDILOL 12.5 MG TAB PO SCH ×2 (08:51→22:12)
[2018-06-02] MEDS: PHENYTOIN SODIUM EXTENDED 100 MG CAP PO SCH ×2 (08:51→22:12)
[2018-06-02] MEDS: hydrALAZINE HCL 25 MG TAB PO SCH ×2 (08:51→22:12)
[2018-06-02] MEDS: HYDROCHLOROTHIAZIDE 25 MG TAB PO SCH (08:51)
[2018-06-02] MEDS: amLODIPine 5 MG TAB PO SCH (08:52)
--- NOTE | 2018-06-02 10:38 | P.PN ---
Progress Note - Text Progress Note Date: 06/02/18 Interval history: This 52-year-old male was seen in his bedroom since he left group because he did not like hearing but they had to set. He denies any suicidal homicidal ideation current time. He has moments where he tends to isolate to his room and other times he interacts with [facility] milieu therapeutic environment with peers. He has no new complaints today. Mental status examination: This is a 52-year-old male who is casually appearance and appears older than his age. Speech and language are slow monotone soft in nature. Attitude and behaviors cooperative. Mood is depressed and anxious. Affect is flat and blunted. Orientation is person place and time and situation. Thought content is within normal. Risk factors he still remains mildly suicidal but has no plan. Perception within normal denies any auditory visual tactile hallucinations. Thought processes is sometimes tangential and concrete. Concentration and attention is within normal recent remote memory are within normal intelligence is below average his judgment is fair per patient's behavior and history of present illness. Insight is fair understanding severity of illness and history of present illness. He lacks redoing on the inside and how to take care of himself. Plan: He'll continue his current medications and remain on 15 minute checks and encourage him to be in [facility] milieu therapeutic environment. Encourage him to maintain non-isolation and interact in a positive manner with his peers and staff. Encourage him to take his medications as indicated.
[2018-06-02] MEDS: hydrOXYzine PAMOATE 25 MG CAP PO PRN (17:15)
[2018-06-02] MEDS: QUEtiapine 100 MG TAB PO SCH (22:11)
[2018-06-02] MEDS: ATORVASTATIN 80 MG TAB PO SCH (22:12)
[2018-06-02] MEDS: ACETAMINOPHEN TAB 325 MG TAB PO PRN (22:13)
[2018-06-03 07:25] VITALS: TEMP 98
[2018-06-03] MEDS: amLODIPine 5 MG TAB PO SCH (08:53)
[2018-06-03] MEDS: CITALOPRAM HYDROBROMIDE 20 MG TAB PO SCH (08:53)
[2018-06-03] MEDS: PHENYTOIN SODIUM EXTENDED 100 MG CAP PO SCH (08:53)
[2018-06-03] MEDS: NICOTINE 14MG/24HR PATCH TRANSDERM SCH (08:53)
[2018-06-03] MEDS: VALSARTAN 160 MG TAB PO SCH (08:53)
[2018-06-03] MEDS: ASPIRIN 81 MG PO SCH (08:54)
[2018-06-03] MEDS: hydrALAZINE HCL 25 MG TAB PO SCH (08:54)
[2018-06-03] MEDS: HYDROCHLOROTHIAZIDE 25 MG TAB PO SCH (08:54)
[2018-06-03] MEDS: CARVEDILOL 12.5 MG TAB PO SCH (08:54)
[2018-06-03 08:56] VITALS: BP 147/77; PULSE 81; RESP 20
--- NOTE | 2018-06-03 10:21 | P.DS ---
Providers Date of admission: 05/22/18 18:12 Expected date of discharge: 06/03/18 Attending physician: Yuriy Duncan Consults: 05/22/18 18:25 Consult Physician Routine Consulting Provider: Srikanth Ervin Consult Reason/Comments: H &P and medical care Do you want consulting provider notified?: Yes Primary care physician: Srikanth Ervin - Discharge Diagnosis(es) (1) Major depressive disorder, recurrent severe without psychotic features Current Visit: Yes Status: Acute Priority: High (2) Anxiety Current Visit: Yes Status: Acute Priority: Medium Hospital Course: Brief summary admission note: This patient is a 52-year-old single male who was admitted to the mental health unit through the emergency room for suicidal ideation. The patient reported feeling depressed he had been off of his medication for 2 months. He reported he was tearful feeling hopeless and overwhelmed with his current living situation. He reported decreased appetite low energy and feelings of anxiety on a regular basis. The patient is well known to the psychiatric service. For full details please refer to my psychiatric evaluation dated 05/23/2018. Summary of hospital course: The patient was admitted to the mental health unit voluntarily. We reviewed his presenting symptoms and treatment options. We decided to reinitiate Celexa and the dose was titrated to 40 mg daily. We continued the Seroquel and the dose was titrated to 300 mg at bedtime. Vistaril was used 25 mg up to 3 times a day for anxiety symptoms but he took it less often. He selectively attended groups. He was seen by internal medicine for routine history and physical exam. Social work met with the patient to complete a psychosocial assessment and for discharge planning purposes. [facility] was involved in the treatment process. The patient's former clinician that with the patient and he will be seen today by his current clinician and a strategic planning specialist. The patient demonstrated no agitated behavior while here. Over the course of his stay he slowly reported an improvement in mood. He is able to verbalize future oriented thinking. He reports a resolution of any acute suicidal ideation. Mental status exam: The patient is alert hygiene grooming are much improved. He stressors own clothing. Eye contact is appropriate speech is fluent spontaneous nonpressured. He maintains a constricted affect. He states his mood is better. He reports no longer feeling hopeless he reports no suicidal ideation intent or plan. He reports no homicidal ideation intent or plan. He endorses no auditory or visual hallucinations or any specific delusions. There is no observed evidence of psychosis. He demonstrates a linear thought process he demonstrates no tangential thinking loose associations or flight of ideas. Insight and judgment have improved. He is oriented to person place and date. He demonstrates no verbal or physical aggressiveness. He demonstrates no inv oluntary repetitive movements. Impressions 1. Major depressive disorder recurrent severe without psychosis, anxiety and specified, history of polysubstance use disorder 2. Hyperlipidemia, hypertension, history of CVA, seizure disorder Plan: The patient will be discharged mental health unit today. He is decided to return home. He will reengage in outpatient services with [facility]. There will be a meeting involving the patient his current therapist and appear support person prior to discharge. The patient will continue on Celexa 40 mg daily, Seroquel 300 mg at bedtime, Vistaril 25 mg up to twice daily as needed. The patient's instructed to abstain from any use of alcohol and marijuana or any other substance as he substances can elevate his safety risk. At this time there is no imminent safety risk is appropriate for transition outpatient care. He is instructed to return to the hospital with any acute safety concerns. Patient Condition at Discharge: Stable Plan - Discharge Summary Discharge Rx Participant: No New Discharge Prescriptions: New hydrALAZINE HCL [Apresoline] 25 mg PO BID #60 tab Citalopram Hydrobromide [CeleXA] 40 mg PO DAILY #30 tab Nicotine 14Mg/24Hr Patch [Habitrol] 1 patch TRANSDERM DAILY #10 patch Hydrochlorothiazide [Hydrodiuril] 25 mg PO DAILY #30 tab QUEtiapine FUMARATE [SEROquel] 300 mg PO HS #30 tab hydrOXYzine PAMOATE [Vistaril] 25 mg PO BID PRN #60 capsule PRN Reason: Anxiety Continue Carvedilol 25 mg PO BID levETIRAcetam [Keppra] 750 mg PO TID Atorvastatin [Lipitor] 80 mg PO HS tab Phenytoin Sodium Extended [Dilantin] 200 mg PO BID cap amLODIPine BESYLATE 5 mg PO DAILY Valsartan/Hydrochlorothiazide [Valsartan-Hctz 160-25 mg Tab] 1 tab PO DAILY Aspirin 81 mg PO DAILY Discontinued QUEtiapine [SEROquel] 200 mg PO HS 30 Days #30 tab Discharge Medication List Carvedilol 25 mg PO BID 10/17/17 [History] levETIRAcetam [Keppra] 750 mg PO TID 03/18/18 [History] Atorvastatin [Lipitor] 80 mg PO HS tab 03/28/18 [Rx] Phenytoin Sodium Extended [Dilantin] 200 mg PO BID cap 03/28/18 [Rx] Aspirin 81 mg PO DAILY 05/22/18 [History] Valsartan/Hydrochlorothiazide [Valsartan-Hctz 160-25 mg Tab] 1 tab PO DAILY 05/22/18 [History] amLODIPine BESYLATE 5 mg PO DAILY 05/22/18 [History] Citalopram Hydrobromide [CeleXA] 40 mg PO DAILY #30 tab 06/03/18 [Rx] Hydrochlorothiazide [Hydrodiuril] 25 mg PO DAILY #30 tab 06/03/18 [Rx] Nicotine 14Mg/24Hr Patch [Habitrol] 1 patch TRANSDERM DAILY #10 patch 06/03/18 [Rx] QUEtiapine FUMARATE [SEROquel] 300 mg PO HS #30 tab 06/03/18 [Rx] hydrALAZINE HCL [Apresoline] 25 mg PO BID #60 tab 06/03/18 [Rx] hydrOXYzine PAMOATE [Vistaril] 25 mg PO BID PRN #60 capsule 06/03/18 [Rx] Follow up Appointment(s)/Referral(s): [facility] [Outside] - 06/06/18 9:30 am (06-06-18 @ 9:30 with DUY Foster 06-10-18 @ 10:00 with Fred Arce ) Srikanth Ervin MD [Primary Care Provider] - 1-2 days
[2018-06-03] MEDS: hydrOXYzine PAMOATE 25 MG CAP PO PRN (11:31)
== END 2018-06-03 12:15 | disposition home or self-care (01) | DRG 885 ==
LOC: EC 11:26 → 3MHU 18:12
PROVIDERS: ADMIT Psychiatry & Neurology Psychiatry; ATTEND Psychiatry & Neurology Psychiatry
DX: F33.2 Major depressive disorder, recurrent severe without psychotic features (principal); I69.351 Hemiplegia and hemiparesis following cerebral infarction affecting right dominant side; G45.9 Transient cerebral ischemic attack, unspecified; R45.851 Suicidal ideations; E78.5 Hyperlipidemia, unspecified; F17.210 Nicotine dependence, cigarettes, uncomplicated; F41.0 Panic disorder [episodic paroxysmal anxiety]; G40.909 Epilepsy, unspecified, not intractable, without status epilepticus; I10 Essential (primary) hypertension; Z79.82 Long term (current) use of aspirin; Z79.899 Other long term (current) drug therapy; Z80.42 Family history of malignant neoplasm of prostate; Z82.49 Family history of ischemic heart disease and other diseases of the circulatory system; Z91.5 Personal history of self-harm; G43.909 Migraine, unspecified, not intractable, without status migrainosus; M21.371 Foot drop, right foot; S20.229A Contusion of unspecified back wall of thorax, initial encounter; Z86.010 Personal history of colon polyps; Z98.42 Cataract extraction status, left eye; Z98.41 Cataract extraction status, right eye; Z81.1 Family history of alcohol abuse and dependence; Z82.61 Family history of arthritis; Z56.0 Unemployment, unspecified; F19.11 Other psychoactive substance abuse, in remission
CPT/HCPCS: 80053; 80061; 80306; 81001; 82075; 82248; 83036; 84443; 85025; 99285

== ENCOUNTER 2018-06-27 14:08 | Emergency (ER) | payer OTHER ==
[2018-06-27] MEDS: LORazepam 2 MG/ML INJ IV STA ×2 (14:24→22:07)
[2018-06-27] MEDS ORDERED: LORazepam 2 MG/ML INJ IV STA (14:25)
[2018-06-27] MEDS ORDERED: SODIUM CHLORIDE 0.9% 500 ML 500 ML IV STA (14:29)
[2018-06-27] MEDS ORDERED: levETIRAcetam IV 1,000 MG in SALINE 1 100ML.BAG IVPB STA (14:32)
[2018-06-27 15:07] VITALS: RESP 18
[2018-06-27 15:09] LABS: Basophils # (A) 0.1 k/uL (0-0.2); Basophils % (A) 1 %; Eosinophils # (A) 0.2 k/uL (0-0.7); Eosinophils % (A) 3 %; HGB 15.8 gm/dL (13.0-17.5); Lymphocytes % (A) 28 %; MCH 32.5 pg (25.0-35.0); MCHC 33.7 g/dL (31.0-37.0); MCV 96.4 fL (80.0-100.0); Mean Platelet Volume 8.6; Monocytes # (A) 0.5 k/uL (0-1.0); Monocytes % (A) 6 %; Neutrophils # (A) 4.3 k/uL (1.3-7.7); Neutrophils % (A) 60 %; Platelet Count 262 k/uL (150-450); RBC 4.88 m/uL (4.30-5.90); RDW 13.2 % (11.5-15.5); WBC 7.2 k/uL (3.8-10.6)
--- NOTE | 2018-06-27 15:11 | CT ---
EXAMINATION TYPE: CT brain wo con DATE OF EXAM: 06/27/2018 COMPARISON: Prior CT dated 05/11/2018 HISTORY: seizure today CT DLP: 1217.4 mGycm Automated exposure control for dose reduction was used. Helical acquisition through the brain. FINDINGS: Encephalomalacia towards the convexity shows a stable appearance. There is no hemorrhage or hydroceph alus. Some artifact is noted. There is inflammatory change present within the ethmoid air cells as on prior exam IMPRESSION: STABLE EXAM, NO SIGNIFICANT INTERVAL CHANGE. NO ACUTE ABNORMALITIES EVIDENT. STABLE SINUS DISEASE.
--- NOTE | 2018-06-27 15:41 | ED ---
Seizure HPI - General Chief Complaint: Seizure Stated Complaint: seizure Time Seen by Provider: 06/27/18 14:20 Source: family, EMS, RN notes reviewed Mode of arrival: EMS Limitations: altered mental status - History of Present Illness Initial Comments: 52-year-old male presents emergency Department with EMS was like activity. Patient does have a history of psychiatric disorders, seizures and alcohol abuse. Information is limited at this time and provided by EMS. Patient currently having a seizure. Patient unable to converse. Patient reports that he is on Keppra and Dilantin. Unsure if he is taking his medications. Patient had no fall. EMS did state that he had his time where he was conversing with no difficulty while having seizure activity. No obvious signs of trauma no other pertinent information at this time. - Related Data Home Medications Medication Instructions Recorded Confirmed Carvedilol 25 mg PO BID 10/17/17 06/27/18 levETIRAcetam [Keppra] 750 mg PO TID 03/18/18 06/27/18 Aspirin 81 mg PO DAILY 05/22/18 06/27/18 Valsartan/Hydrochlorothiazide 1 tab PO DAILY 05/22/18 06/27/18 [Valsartan-Hctz 160-25 mg Tab] amLODIPine [Norvasc] 5 mg PO DAILY 06/27/18 06/27/18 busPIRone HCL [Buspar] 15 mg PO BID 06/27/18 06/27/18 hydrOXYzine PAMOATE [Vistaril] 50 mg PO BID 06/27/18 06/27/18 Previous Rx's Medication Instructions Recorded Atorvastatin [Lipitor] 80 mg PO HS tab 03/28/18 Phenytoin Sodium Extended 200 mg PO BID cap 03/28/18 [Dilantin] Citalopram Hydrobromide [CeleXA] 40 mg PO DAILY #30 tab 06/03/18 QUEtiapine FUMARATE [SEROquel] 300 mg PO HS #30 tab 06/03/18 Allergies Allergy/AdvReac Type Severity Reaction Status Date / Time No Known Allergies Allergy Verified 06/27/18 14:57 Review of Systems ROS Statement: Those systems with pertinent positive or pertinent negative responses have been documented in the HPI. ROS Other: All systems not noted in ROS Statement are negative. Past Medical History Past Medical History: CVA/TIA, Hyperlipidemia, Seizure Disorder Additional Past Medical History / Comment(s): L intraparenchymal hemorrhage L lung pneumothorax , Migraine Headaches. Left sided hemorrhagic stroke approximately 3 years ago occurred because patient had stopped all meds including antihypertensives History of Any Multi-Drug Resistant Organisms: None Reported Past Surgical History: No Surgical Hx Reported Additional Past Surgical History / Comment(s): COLONOSCOPY POLYPS REMOVED-NEG, bilateral cataract removal, R testicular surgery as a little boy. Past Anesthesia/Blood Transfusion Reactions: No Reported Reaction Additional Past Anesthesia/Blood Transfusion Reaction / Comment(s): Pt has never recieved blood. Past Psychological History: Anxiety, Bipolar, Depression, Panic Disorder Smoking Status: Current every day smoker - Past Family History Father Family Medical History: Cancer, Hyperlipidemia, Hypertension, Prostate Disorder Additional Family Medical History / Comment(s): PROSTATE CA Mother Family Medical History: Osteoarthritis (OA) Additional Family Medical History / Comment(s): MOM IS 71 General Exam Limitations: altered mental status General appearance: alert, in no apparent distress Head exam: Present: atraumatic, normocephalic, normal inspection Eye exam: Present: normal appearance, PERRL, EOMI. Absent: scleral icterus, conjunctival injection, periorbital swelling ENT exam: Present: normal exam, normal oropharynx, mucous membranes moist Neck exam: Present: normal inspection, full ROM. Absent: tenderness, meningismus, lymphadenopathy Respiratory exam: Present: normal lung sounds bilaterally. Absent: respiratory distress, wheezes, rales, rhonchi, stridor Cardiovascular Exam: Present: regular rate, normal rhythm, normal heart sounds. Absent: systolic murmur, diastolic murmur, rubs, gallop, clicks GI/Abdominal exam: Present: soft, normal bowel sounds. Absent: distended, tenderness, guarding, rebound, rigid Neurological exam: Present: other (Patient currently having seizure-like activity) Skin exam: Present: warm, dry, intact, normal color. Absent: rash Course Vital Signs 06/27/18 06/27/18 06/27/18 14:15 14:31 15:02 Temperature Pulse Rate 103 H 80 Respiratory 24 20 Rate Blood Pressure 190/104 129/76 O2 Sat by Pulse 100 91 L 95 Oximetry 06/27/18 06/27/18 15:05 16:01 Temperature 99.1 F Pulse Rate 72 70 Respiratory 18 18 Rate Blood Pressure 129/87 129/83 O2 Sat by Pulse 95 95 Oximetry Medical Decision Making - Medical Decision Making 52-year-old male presented for a seizure. Patient found to have subtherapeutic Dilantin level. Patient most likely subtherapeutic Keppra. Level is not available at this time secondary to venous and no red. Patient was given dose of Keppra, Dilantin. Patient will follow-up with PCP. Patient stable for discharge, patient is coherent, no magical deficits normal neuro exam. - Lab Data Result diagrams: 06/27/18 14:40 06/27/18 15:30 Lab Results 06/27/18 06/27/18 Range/Units 14:40 15:30 WBC 7.2 (3.8-10.6) k/uL RBC 4.88 (4.30-5.90) m/uL Hgb 15.8 (13.0-17.5) gm/dL Hct 47.0 (39.0-53.0) % MCV 96.4 (80.0-100.0) fL MCH 32.5 (25.0-35.0) pg MCHC 33.7 (31.0-37.0) g/dL RDW 13.2 (11.5-15.5) % Plt Count 262 (150-450) k/uL Neutrophils % 60 % Lymphocytes % 28 % Monocytes % 6 % Eosinophils % 3 % Basophils % 1 % Neutrophils # 4.3 (1.3-7.7) k/uL Lymphocytes # 2.0 (1.0-4.8) k/uL Monocytes # 0.5 (0-1.0) k/uL Eosinophils # 0.2 (0-0.7) k/uL Basophils # 0.1 (0-0.2) k/uL Sodium 136 L (137-145) mmol/L Potassium 3.8 (3.5-5.1) mmol/L Chloride 107 (98-107) mmol/L Carbon Dioxide 23 (22-30) mmol/L Anion Gap 6 mmol/L BUN 16 (9-20) mg/dL Creatinine 0.97 (0.66-1.25) mg/dL Est GFR (CKD-EPI)AfAm >90 (>60 ml/min/1.73 sqM) Est GFR (CKD-EPI)NonAf 89 (>60 ml/min/1.73 sqM) Glucose 82 (74-99) mg/dL Calcium 8.5 (8.4-10.2) mg/dL Total Bilirubin 0.5 (0.2-1.3) mg/dL AST 17 (17-59) U/L ALT 25 (21-72) U/L Alkaline Phosphatase 60 (38-126) U/L Total Protein 6.2 L (6.3-8.2) g/dL Albumin 4.0 (3.5-5.0) g/dL Acetaminophen <10.0 ug/mL Phenytoin 7.5 ug/mL Valproic Acid <10.0 ug/mL Disposition Clinical Impression: Generalized seizure, Seizure secondary to subtherapeutic anticonvulsant medication Disposition: HOME SELF-CARE Condition: Stable Instructions (If sedation given, give patient instructions): Recurrent Seizures in Adults (ED) Additional Instructions: Please return to the Emergency Department if symptoms worsen or any other concerns. Is patient prescribed a controlled substance at d/c from ED?: No Referrals: Srikanth Ervin MD [Primary Care Provider] - 1-2 days Time of Disposition: 16:27
[2018-06-27 15:51] LABS: ALT 25 U/L (21-72); AST 17 U/L (17-59); Acetaminophen <10.0 ug/mL; Alkaline Phosphatase 60 U/L (38-126); Anion Gap 6 mmol/L; Blood Urea Nitrogen 16 mg/dL (9-20); Calcium 8.5 mg/dL (8.4-10.2); Carbon Dioxide 23 mmol/L (22-30); Chloride 107 mmol/L (98-107); Glucose 82 mg/dL (74-99); Phenytoin (Dilantin) 7.5 ug/mL; Potassium 3.8 mmol/L (3.5-5.1); Sodium 136 mmol/L (137-145); Total Bilirubin 0.5 mg/dL (0.2-1.3); Total Protein 6.2 g/dL (6.3-8.2)
[2018-06-27 15:54] LABS: Valproic Acid (Depakene) <10.0 ug/mL
[2018-06-27] MEDS ORDERED: PHENYTOIN SODIUM EXTENDED 100 MG CAP PO STA (16:00)
[2018-06-27 16:43] VITALS: BP 121/78; PULSE 64; TEMP 98.9
== END 2018-06-27 16:48 | disposition home or self-care (01) ==
LOC: EC 14:08
DX: G40.409 Other generalized epilepsy and epileptic syndromes, not intractable, without status epilepticus (principal); T42.0X6A Underdosing of hydantoin derivatives, initial encounter; R41.82 Altered mental status, unspecified; F31.9 Bipolar disorder, unspecified; F41.0 Panic disorder [episodic paroxysmal anxiety]; F17.200 Nicotine dependence, unspecified, uncomplicated; Z79.82 Long term (current) use of aspirin; Z79.899 Other long term (current) drug therapy; Z53.8 Procedure and treatment not carried out for other reasons; Z86.69 Personal history of other diseases of the nervous system and sense organs; Z86.73 Personal history of transient ischemic attack (TIA), and cerebral infarction without residual deficits
CPT/HCPCS: 99284; 96374; 96375; 96361; 36415; 93005; 80164; 80053; 80185; 85025; 83520; 70450; J2060; J1953

== ENCOUNTER 2018-09-22 14:43 | Inpatient (IN) | payer MEDICAID, OTHER ==
[2018-09-22] MEDS ORDERED: ASPIRIN-ACET-CAFF 250-250-65MG 1 EACH TAB PO STA (15:41)
--- NOTE | 2018-09-22 15:41 | ED ---
General Adult HPI - General Chief complaint: Psychiatric Symptoms Stated complaint: Mental Health Time Seen by Provider: 09/22/18 14:45 Source: patient, family, RN notes reviewed Mode of arrival: ambulatory Limitations: no limitations - History of Present Illness Initial comments: This is a 52-year-old male who presents emergency Department complaining of depression and suicidal ideations. Patient states he has a past medical history of suicide attempts depression and bipolar. Patient states today he became very depressed and was constant putting suicide. Friend states she came over the house 400 mg with a belt tied and social way that he could possibly hanging himself. Patient denies any alcohol use or drug use. Patient doesn't know what set him off today and made him suicidal but he definitely was. Patient states he thinks he needs to be admitted to get of medications straightened out. Patient denies any recent fever chills. Patient denies any trauma. Patient denies any chest pain difficulty breathing or shortness of breath. Patient denies any abdominal pain patient's nausea vomiting diarrhea. Patient states he has chronic headaches and he has one currently. - Related Data Home Medications Medication Instructions Recorded Confirmed Carvedilol 25 mg PO BID 10/17/17 09/22/18 levETIRAcetam [Keppra] 750 mg PO TID 03/18/18 09/22/18 Aspirin 81 mg PO DAILY 05/22/18 09/22/18 Valsartan/Hydrochlorothiazide 1 tab PO DAILY 05/22/18 09/22/18 [Valsartan-Hctz 160-25 mg Tab] amLODIPine [Norvasc] 5 mg PO DAILY 06/27/18 09/22/18 busPIRone HCL [Buspar] 15 mg PO BID 06/27/18 09/22/18 clonazePAM [KlonoPIN] 0.5 mg PO BID 09/22/18 09/22/18 Previous Rx's Medication Instructions Recorded Atorvastatin [Lipitor] 80 mg PO HS tab 03/28/18 Phenytoin Sodium Extended 200 mg PO BID cap 03/28/18 [Dilantin] Citalopram Hydrobromide [CeleXA] 40 mg PO DAILY #30 tab 06/03/18 QUEtiapine FUMARATE [SEROquel] 300 mg PO HS #30 tab 06/03/18 Allergies Allergy/AdvReac Type Severity Reaction Status Date / Time No Known Allergies Allergy Verified 09/22/18 15:26 Review of Systems ROS Statement: Those systems with pertinent positive or pertinent negative responses have been documented in the HPI. ROS Other: All systems not noted in ROS Statement are negative. Past Medical History Past Medical History: CVA/TIA, Hyperlipidemia, Seizure Disorder Additional Past Medical History / Comment(s): L intraparenchymal hemorrhage L lung pneumothorax , Migraine Headaches. Left sided hemorrhagic stroke approximately 3 years ago occurred because patient had stopped all meds including antihypertensives History of Any Multi-Drug Resistant Organisms: None Reported Past Surgical History: No Surgical Hx Reported Additional Past Surgical History / Comment(s): COLONOSCOPY POLYPS REMOVED-NEG, bilateral cataract removal, R testicular surgery as a little boy. Past Anesthesia/Blood Transfusion Reactions: No Reported Reaction Additional Past Anesthesia/Blood Transfusion Reaction / Comment(s): Pt has never recieved blood. Past Psychological History: Anxiety, Bipolar, Depression, Panic Disorder Smoking Status: Current every day smoker Past Alcohol Use History: None Reported Past Drug Use History: None Reported - Past Family History Father Family Medical History: Cancer, Hyperlipidemia, Hypertension, Prostate Disorder Additional Family Medical History / Comment(s): PROSTATE CA Mother Family Medical History: Osteoarthritis (OA) Additional Family Medical History / Comment(s): MOM IS 71 General Exam - General Exam Comments Initial Comments: GENERAL: Patient is well-developed and well-nourished. Patient is nontoxic and well- hydrated and is in no acute distress. ENT: Neck is soft and supple. No significant lymphadenopathy is noted. Oropharynx is clear. Moist mucous membranes. Neck has full range of motion without eliciting any pain. EYES: The sclera were anicteric and conjunctiva were pink and moist. Extraocular movements were intact and pupils were equal round and reactive to light. Eyelids were unremarkable. PULMONARY: Unlabored respirations. Good breath sounds bilaterally. No audible rales rhonchi or wheezing was noted. CARDIOVASCULAR: There is a regular rate and rhythm without any murmurs gallops or rubs. ABDOMEN: Soft and nontender with normal bowel sounds. SKIN: Skin is clear with no lesions or rashes and otherwise unremarkable. NEUROLOGIC: Patient is alert and oriented x3. Cranial nerves II through XII are grossly intact. Motor and sensory are also intact. Normal speech, volume and content. Symmetrical smile. MUSCULOSKELETAL: Normal extremities with adequate strength and full range of motion. LYMPHATICS: No significant lymphadenopathy is noted PSYCHIATRIC: Patient states he is depressed and suicidal at this time Limitations: no limitations Course Vital Signs 09/22/18 14:46 Temperature 98.8 F Pulse Rate 70 Respiratory 18 Rate Blood Pressure 124/87 O2 Sat by Pulse 96 Oximetry Medical Decision Making - Medical Decision Making Dr. Farah will be taking care of this patient at 5 PM - Lab Data Lab Results 09/22/18 Range/Units 15:00 Urine Opiates Screen Not Detected (NotDetected) Ur Oxycodone Screen Not Detected (NotDetected) Urine Methadone Screen Not Detected (NotDetected) Ur Propoxyphene Screen Not Detected (NotDetected) Ur Barbiturates Screen Detected H (NotDetected) U Tricyclic Antidepress Detected H (NotDetected) Ur Phencyclidine Scrn Not Detected (NotDetected) Ur Amphetamines Screen Not Detected (NotDetected) U Methamphetamines Scrn Not Detected (NotDetected) U Benzodiazepines Scrn Detected H (NotDetected) Urine Cocaine Screen Not Detected (NotDetected) U Marijuana (THC) Screen Not Detected (NotDetected) Disposition Referrals: Srikanth Ervin MD [Primary Care Provider] - 1-2 days
[2018-09-22 15:50] LABS: Amphetamine Screen,Urine Not Detected (NotDetected); Barbiturate Screen,Urine Detected (NotDetected); Benzodiazepines Screen,Urine Detected (NotDetected); Cocaine Screen,Urine Not Detected (NotDetected); Methadone Screen, Urine Not Detected (NotDetected); Opiate Screen,Urine Not Detected (NotDetected); Oxycodone Screen, Urine Not Detected (NotDetected); Phencyclidine Screen,Urine Not Detected (NotDetected); Tricyclic Antidepressant,Urine Detected (NotDetected); Urn Cannabinoid Scrn Not Detected (NotDetected)
[2018-09-22] MEDS ORDERED: ZIPRASIDONE 20 MG VIAL IM PRN (18:20)
[2018-09-22] MEDS ORDERED: MAG HYDROX/AL HYDROX/SIMETH 30 ML CUP PO PRN (18:20)
[2018-09-22] MEDS ORDERED: MAGNESIUM HYDROXIDE 2,400 MG/10 ML CUP PO PRN (18:20)
[2018-09-22 18:38] VITALS: BMI 27.9
[2018-09-22] MEDS: CARVEDILOL 12.5 MG TAB PO SCH (20:48)
[2018-09-22] MEDS: QUEtiapine 100 MG TAB PO SCH (20:48)
[2018-09-22] MEDS: PHENYTOIN SODIUM EXTENDED 100 MG CAP PO SCH (20:48)
[2018-09-22] MEDS: clonazePAM 0.5 MG TAB PO SCH (20:48)
[2018-09-22] MEDS: ATORVASTATIN 80 MG TAB PO SCH (20:49)
[2018-09-22] MEDS: busPIRone HCl 5 MG TAB PO SCH (20:49)
[2018-09-23] MEDS: clonazePAM 0.5 MG TAB PO SCH ×2 (07:47→21:03)
[2018-09-23] MEDS: ASPIRIN 81 MG PO SCH (07:47)
[2018-09-23] MEDS: CITALOPRAM HYDROBROMIDE 20 MG TAB PO SCH (07:47)
[2018-09-23] MEDS: busPIRone HCl 5 MG TAB PO SCH (07:48)
[2018-09-23] MEDS: CARVEDILOL 12.5 MG TAB PO SCH ×2 (07:48→21:04)
[2018-09-23] MEDS: PHENYTOIN SODIUM EXTENDED 100 MG CAP PO SCH ×2 (07:48→21:04)
[2018-09-23] MEDS: amLODIPine 5 MG TAB PO SCH (07:48)
[2018-09-23] MEDS: VALSARTAN 160 MG TAB PO SCH (07:48)
[2018-09-23] MEDS: HYDROCHLOROTHIAZIDE 25 MG TAB PO SCH (07:48)
[2018-09-23 08:12] LABS: Glucose,Whole Blood 143 mg/dL (75-99)
[2018-09-23] MEDS: SODIUM CHLORIDE 0.9% 1,000 ML IV SCH (09:14)
[2018-09-23 09:27] LABS: Basophils % (A) 0 %; Eosinophils # (A) 0.1 k/uL (0-0.7); Eosinophils % (A) 1 %; HCT 44.3 % (39.0-53.0); Lymphocytes # (A) 1.4 k/uL (1.0-4.8); Lymphocytes % (A) 13 %; MCH 31.9 pg (25.0-35.0); MCHC 33.8 g/dL (31.0-37.0); MCV 94.3 fL (80.0-100.0); Mean Platelet Volume 6.9; Monocytes # (A) 0.9 k/uL (0-1.0); Monocytes % (A) 9 %; Neutrophils # (A) 8.1 k/uL (1.3-7.7); Neutrophils % (A) 76 %; Platelet Count 224 k/uL (150-450); RDW 12.3 % (11.5-15.5); WBC 10.7 k/uL (3.8-10.6)
[2018-09-23 10:09] LABS: Calcium 8.6 mg/dL (8.4-10.2); Total Bilirubin 0.7 mg/dL (0.2-1.3); Total Protein 6.3 g/dL (6.3-8.2)
[2018-09-23] MEDS: ACETAMINOPHEN TAB 325 MG TAB PO PRN (13:27)
--- NOTE | 2018-09-23 15:13 | P.HP ---
Psychiatric H&P - . H&P Date: 09/23/18 History & Physical: Allergies Allergy/AdvReac Type Severity Reaction Status Date / Time No Known Allergies Allergy Verified 09/22/18 20:03 Vital Signs Temp 98.2 F 09/23/18 07:08 Pulse 92 09/23/18 08:22 Resp 18 09/23/18 08:22 BP 127/89 09/23/18 08:22 Pulse Ox 99 09/23/18 08:07 Intake & Output 09/22/18 09/23/18 09/23/18 18:59 06:59 18:59 Intake Total 1000 Balance 1000 Weight 76.566 kg Intake: IV 1000 Invasive Line 1 1000 Laboratory Last Values WBC 10.7 k/uL (3.8-10.6) H 09/23/18 09:10 RBC 4.70 m/uL (4.30-5.90) 09/23/18 09:10 Hgb 15.0 gm/dL (13.0-17.5) 09/23/18 09:10 Hct 44.3 % (39.0-53.0) 09/23/18 09:10 MCV 94.3 fL (80.0-100.0) 09/23/18 09:10 MCH 31.9 pg (25.0-35.0) 09/23/18 09:10 MCHC 33.8 g/dL (31.0-37.0) 09/23/18 09:10 RDW 12.3 % (11.5-15.5) 09/23/18 09:10 Plt Count 224 k/uL (150-450) 09/23/18 09:10 Neutrophils % 76 % 09/23/18 09:10 Lymphocytes % 13 % 09/23/18 09:10 Monocytes % 9 % 09/23/18 09:10 Eosinophils % 1 % 09/23/18 09:10 Basophils % 0 % 09/23/18 09:10 Neutrophils # 8.1 k/uL (1.3-7.7) H 09/23/18 09:10 Lymphocytes # 1.4 k/uL (1.0-4.8) 09/23/18 09:10 Monocytes # 0.9 k/uL (0-1.0) 09/23/18 09:10 Eosinophils # 0.1 k/uL (0-0.7) 09/23/18 09:10 Basophils # 0.0 k/uL (0-0.2) 09/23/18 09:10 Sodium 138 mmol/L (137-145) 09/23/18 09:10 Potassium 4.0 mmol/L (3.5-5.1) 09/23/18 09:10 Chloride 102 mmol/L (98-107) 09/23/18 09:10 Carbon Dioxide 29 mmol/L (22-30) 09/23/18 09:10 Anion Gap 7 mmol/L 09/23/18 09:10 BUN 29 mg/dL (9-20) H 09/23/18 09:10 Creatinine 1.18 mg/dL (0.66-1.25) 09/23/18 09:10 Est GFR (CKD-EPI)AfAm 80 (>60 ml/min/1.73 sqM) 09/23/18 09:10 Est GFR (CKD-EPI)NonAf 70 (>60 ml/min/1.73 sqM) 09/23/18 09:10 Glucose 120 mg/dL (74-99) H 09/23/18 09:10 POC Glucose (mg/dL) 143 mg/dL (75-99) H 09/23/18 08:01 POC Glu Gelatin Powder Mixer Charisma Kaba 09/23/18 08:01 Calcium 8.6 mg/dL (8.4-10.2) 09/23/18 09:10 Magnesium 2.4 mg/dL (1.6-2.3) H 09/23/18 09:13 Total Bilirubin 0.7 mg/dL (0.2-1.3) 09/23/18 09:10 AST 15 U/L (17-59) L 09/23/18 09:10 ALT 17 U/L (21-72) L 09/23/18 09:10 Alkaline Phosphatase 74 U/L (38-126) 09/23/18 09:10 Total Protein 6.3 g/dL (6.3-8.2) 09/23/18 09:10 Albumin 4.0 g/dL (3.5-5.0) 09/23/18 09:10 Triglycerides 274 mg/dL (<150) H 09/23/18 09:10 Cholesterol 141 mg/dL (<200) 09/23/18 09:10 LDL Cholesterol, Calc 48 mg/dL (0-99) 09/23/18 09:10 HDL Cholesterol 38 mg/dL (40-60) L 09/23/18 09:10 TSH 1.520 mIU/L (0.465-4.680) 09/23/18 09:10 Urine Opiates Screen Not Detected (NotDetected) 09/22/18 15:00 Ur Oxycodone Screen Not Detected (NotDetected) 09/22/18 15:00 Urine Methadone Screen Not Detected (NotDetected) 09/22/18 15:00 Ur Propoxyphene Screen Not Detected (NotDetected) 09/22/18 15:00 Ur Barbiturates Screen Detected (NotDetected) H 09/22/18 15:00 U Tricyclic Antidepress Detected (NotDetected) H 09/22/18 15:00 Ur Phencyclidine Scrn Not Detected (NotDetected) 09/22/18 15:00 Ur Amphetamines Screen Not Detected (NotDetected) 09/22/18 15:00 U Methamphetamines Scrn Not Detected (NotDetected) 09/22/18 15:00 U Benzodiazepines Scrn Detected (NotDetected) H 09/22/18 15:00 Urine Cocaine Screen Not Detected (NotDetected) 09/22/18 15:00 U Marijuana (THC) Screen Not Detected (NotDetected) 09/22/18 15:00 09/23/18 15:01 Identification: Patient is a 52-year-old male presented to the emergency room complaining of suicidal thoughts and depression History of Present Illness: Patient states he had not been feeling well stating that he was "going to blow my brains out" because he was sick of being sick. Patient states he's been falling all the time thinks he's had several strokes because his right side isn't working as well get tingling in his arms complained about his hands turning black complaining about them having left a catheter in his hand when he was here last. Patient states that he hasn't been feeling well, was last seen at [facility] in June and states when he called them no one returned his calls. Patient states he is tired of going there and once his primary care doctor to handle all his medications. Patient reports that he's been taking his medications for both seizures and hypertension as well as his anxiety and depressive medications. Patient is currently prescribed BuSpar 15 mg twice a day, Celexa 40 mg a day and Seroquel 300 mg a day at bedtime by [facility] as well as Vistaril 50 mg capsules 3 times a day as needed however the patient is no longer using the Vistaril and has been taking Klonopin prescribed by his primary care 0.5 mg twice a day for his anxiety. Patient states that he comes to the hospital because he doesn't know what else to do and states that he was recently here for having a seizure. He doesn't think that it was a seizure he thinks he had another stroke. Patient since he's been falling at home because he is weaker on the right side and only just started using his walker at home again. He states he is not sleeping at night and has been taking his medication as a friend places it in a pillbox for him. Patient states that he thought the changes that were made in May when he was here in the inpatient unit did help but can't tell me sweats changed between now and then. Patient had an episode this morning on the inpatient unit where he got dizzy and was found on the ground. Patient states he's been falling and states it's because he feels dizzy. Patient states that he has been eating at home. He denies any drug use or alcohol use. Patient has a history of multiple prior admissions and multiple prior suicide attempts. Patient denies any manic symptoms, anxiety symptoms currently or in the past. Past Psychiatric History: Patient has multiple prior inpatient psychiatric admissions his last was here in May 2018 and he was here in March 2018 as well. He had 3 admissions here in 2018. Patient states he has attempted suicide numerous times in the past. Patient has been tried on multiple medications and currently is taking the above prescribed meds. Past Medical/Surgical History: Patient has a history of a CVA 2 years ago, seizure disorder and hypertension. Family History: Patient states his mother is diagnosed with bipolar disorder and completed suicides or alcohol or drug use history that he is aware of Social History: Patient was born and raised in [place] and his parents are alive and he has 2 siblings. 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 He states he's never been and has no children. He lives alone in an apartment and states he is not currently on disability. Patient denies an abuse history. States his friend who lives in the apartment with his meds in a pillbox for Substance Use History: Patient denies any current substance or alcohol use and states he hasn't had anything to drink for 20 years. Legal History: Patient states that he was in residential for DUIs and has had any in the past Mental status: Appearance/Attitude: Patient is dressed in a hospital gown, his grooming is poor and he appears disheveled, using a walker to ambulate makes intermittent eye contact and is superficially cooperative Behavior: Patient does not display any psychomotor agitation or retardation Speech/Language: Patient's speech is spontaneous of normal volume and rhythm and he is coherent Thought Process: Patient is goal-directed with little elaboration no evidence of loose associations or flight of ideas Thought Content: Patient denies any auditory or visual hallucinations no delusions or paranoid ideation or elicited. Patient states he is tired of feeling sick, complains of multiple somatic issues such as having a catheter broken off in his hand, the backs of his hands turning black, he is had several strokes recently that have made his right side not work as well as it should, and patient states he is just tired of feeling sick. Patient states he was go ing to blow his brains out and asked why he presented to the hospital. Patient states that he doesn't want to [facility] and once his primary care doctor to prescribe his medications. Patient states he wasn't sleeping at home and was eating fairly well. Suicidal/Homicidal Ideation: Patient denies any current homicidal ideation and states he still feels suicidal but no current plan or intent to act Sensorium/Cognition: Patient is alert and oriented to person, place and time and his recent and remote memory were grossly intact. Mood/Affect: Patient's mood is depressed, irritable his affect is blunted Insight/Judgment: Patient's insight and judgment are fair Intellectual Functioning: Patient's intellectual functioning appears average Strength/Weakness: Patient has housing/lack of follow-up Assessment: Patient presents complaining that his depression and suicidal thoughts have increased recently they did give me no precipitant other than that he states that he's had a recent stroke again not a seizure and feels that his right side is not functioning as well as it should and recounts numerous somatic complaints about his backs of his hands turning black a catheter being left again when he was last here in the emergency room. Patient has been followed at [facility] and was last seen in June and states no one called back when he called a month ago. Patient states that he's been taking his Celexa, Seroquel and Klonopin and states he should not be using BuSpar anymore because he doesn't work. Patient states that he has not been using Vistaril at home to his knowledge. Patient has had numerous prior admissions to the hospital is most recent being in May of this year. Patient states that he wishes he could go back to [facility] as he did 2 years ago after his stroke. Admission Diagnosis: Major depressive disorder, recurrent, moderate severity Plan: Patient was admitted on a voluntary basis, placed on routine observation i n group and activity therapy were ordered. Patient also had routine laboratory studies including a Dilantin level and was continued on his prior medications for his medical problems. A medical consultation was also obtained. Patient will continue on Celexa 40 mg daily, his Klonopin 0.5 mg twice a day and Seroquel 300 mg at bedtime I will discontinue the BuSpar as the patient states he doesn't wish to take it anymore. Patient was encouraged to attend groups and activities. Patient requires hospitalization to further stabilize his mood.
[2018-09-23 17:12] LABS: Hemoglobin A1C 5.5 % (4.0-6.0)
[2018-09-23] MEDS: LORazepam 1 MG TAB PO PRN (18:29)
[2018-09-23] MEDS ORDERED: IPRATROPIUM-ALBUTEROL 3 ML NEB INHALATION PRN (18:53)
--- NOTE | 2018-09-23 19:10 | P.CONS ---
History of Present Illness - Reason for Consult Consult date: 09/23/18 medical management of COPD and ICB Hx - History of Present Illness Robert is a 52 y/o WM well know to me. He has recurrent migraines, seizures, mental illness, h/o ICB, hypertension and continues to smoke. He has been feeling weak and falling , hands numb along with ohter vague c/o. W/u in ER has been negative. He has been seeing Dr Fisher lately. Last night he was given IV fluids for Dehydraton suspect and has improved. Currently, he denies any chest pain, pessure, min SOB, no nausea, vomitting, diarrhea, constipation. he is on the psych floor wanting to get better. Review of Systems All systems: negative Past Medical History Past Medical History: CVA/TIA, Hyperlipidemia, Seizure Disorder Additional Past Medical History / Comment(s): L intraparenchymal hemorrhage L lung pneumothorax , Migraine Headaches. Left sided hemorrhagic stroke approximately 3 years ago occurred because patient had stopped all meds including antihypertensives History of Any Multi-Drug Resistant Organisms: None Reported Past Surgical History: No Surgical Hx Reported Additional Past Surgical History / Comment(s): COLONOSCOPY POLYPS REMOVED-NEG, bilateral cataract removal, R testicular surgery as a little boy. Past Anesthesia/Blood Transfusion Reactions: No Reported Reaction Additional Past Anesthesia/Blood Transfusion Reaction / Comm: Pt has never recieved blood. 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 PT resides with a friend. He is independent with his ADLs. He uses a walker some of the time. He is suppose to be starting home PT soon-he was recently discharged from rehab. Pt has hx of ETOH abuse-he quit drinking 3 yrs ago with one slip last 2013. He has hx of polysubstance abuse per old record but pt states he has not used meds not prescribed to him. He smoked marijuana he states as a young person. He has had suicidal idealations in the past- but not recently. Smoking Status: Current every day smoker Past Alcohol Use History: None Reported Additional Past Alcohol Use History / Comment(s): pt states he has been smoking for 20 years. patient states he smokes one pack per day. Past Drug Use History: None Reported Additional Drug Use History / Comment(s): Pt has hx of polysubstance abuse per PMR-Adderall/xanax/flexeril, however pt currently denies this. - Past Family History Father Family Medical History: Cancer, Hyperlipidemia, Hypertension, Prostate Disorder Additional Family Medical History / Comment(s): PROSTATE CA Mother Family Medical History: Osteoarthritis (OA) Additional Family Medical History / Comment(s): MOM IS 71 Medications and Allergies Home Medications Medication Instructions Recorded Confirmed Type Carvedilol 25 mg PO BID 10/17/17 09/22/18 History levETIRAcetam [Keppra] 750 mg PO TID 03/18/18 09/22/18 History Atorvastatin [Lipitor] 80 mg PO HS tab 03/28/18 09/22/18 Rx Phenytoin Sodium Extended 200 mg PO BID cap 03/28/18 09/22/18 Rx [Dilantin] Aspirin 81 mg PO DAILY 05/22/18 09/22/18 History Valsartan/Hydrochlorothiazide 1 tab PO DAILY 05/22/18 09/22/18 History [Valsartan-Hctz 160-25 mg Tab] Citalopram Hydrobromide [CeleXA] 40 mg PO DAILY #30 tab 06/03/18 09/22/18 Rx QUEtiapine FUMARATE [SEROquel] 300 mg PO HS #30 tab 06/03/18 09/22/18 Rx amLODIPine [Norvasc] 5 mg PO DAILY 06/27/18 09/22/18 History busPIRone HCL [Buspar] 15 mg PO BID 06/27/18 09/22/18 History clonazePAM [KlonoPIN] 0.5 mg PO BID 09/22/18 09/22/18 History Allergies Allergy/AdvReac Type Severity Reaction Status Date / Time No Known Allergies Allergy Verified 09/22/18 20:03 Physical Exam Vitals: Vital Signs Temp Pulse Resp BP Pulse Ox 09/23/18 18:26 98.1 F 58 L 16 182/92 98 09/23/18 08:22 92 18 127/89 09/23/18 08:15 76 18 132/93 09/23/18 08:07 73 18 150/99 99 09/23/18 08:01 80 18 166/108 09/23/18 07:52 130/78 99 09/23/18 07:08 98.2 F 74 16 103/64 09/22/18 20:45 77 111/67 Intake and Output 09/23/18 09/23/18 09/23/18 06:59 14:59 22:59 Intake Total 1000 Balance 1000 Intake: IV 1000 Invasive Line 1 1000 - Constitutional General appearance: average body habitus, disheveled - EENT Eyes: PERRLA - Neck Neck: no lymphadenopathy, no thyromegaly Carotids: bilateral: upstroke normal - Respiratory Respiratory: bilateral: CTA, diminished - Cardiovascular Rhythm: regular Heart sounds: normal: S1, S2 Abnormal Heart Sounds: no systolic murmur - Gastrointestinal General gastrointestinal: no hepatomegaly, normal bowel sounds, no splenomegaly - Neurologic Neurologic: CNII-XII intact - Musculoskeletal Musculoskeletal: gait normal - Psychiatric Psychiatric: A&O x's 3 Results CBC & Chem 7: 09/23/18 09:10 09/23/18 09:10 Labs: Abnormal Lab Results - Last 24 Hours (Table) 09/23/18 09/23/18 09/23/18 Range/Units 08:01 09:10 09:10 WBC 10.7 H (3.8-10.6) k/uL Neutrophils # 8.1 H (1.3-7.7) k/uL BUN 29 H (9-20) mg/dL Glucose 120 H (74-99) mg/dL POC Glucose (mg/dL) 143 H (75-99) mg/dL Magnesium (1.6-2.3) mg/dL AST 15 L (17-59) U/L ALT 17 L (21-72) U/L Triglycerides 274 H (<150) mg/dL HDL Cholesterol 38 L (40-60) mg/dL 09/23/18 Range/Units 09:13 WBC (3.8-10.6) k/uL Neutrophils # (1.3-7.7) k/uL BUN (9-20) mg/dL Glucose (74-99) mg/dL POC Glucose (mg/dL) (75-99) mg/dL Magnesium 2.4 H (1.6-2.3) mg/dL AST (17-59) U/L ALT (21-72) U/L Triglycerides (<150) mg/dL HDL Cholesterol (40-60) mg/dL Assessment and Plan (1) Anxiety Current Visit: No Status: Acute Priority: Medium Code(s): F41.9 - ANXIETY DISORDER, UNSPECIFIED SNOMED Code(s): 96141085 (2) Cerebrovascular accident Current Visit: No Status: Acute Code(s): I63.9 - CEREBRAL INFARCTION, UNSPECIFIED SNOMED Code(s): 653822703 (3) Dehydration Narrative/Plan: restart home meds as appropriate staff to closely monitor BP tobaccoism and smoking cessation education will follow with you as needed Thank you for allowing us to participate in his care! Current Visit: No Status: Acute Code(s): E86.0 - DEHYDRATION SNOMED Code(s): 48952175 (4) Essential (primary) hypertension Current Visit: No Status: Acute Code(s): I10 - ESSENTIAL (PRIMARY) HYPERTENSION SNOMED Code(s): 60000400 (5) Headache Current Visit: No Status: Acute Code(s): R51 - HEADACHE SNOMED Code(s): 66937532 (6) History of stroke Current Visit: No Status: Acute Priority: Low Code(s): Z86.73 - PRSNL HX OF TIA (TIA), AND CEREB INFRC W/O RESID DEFICITS SNOMED Code(s): 442647545 (7) Intracerebral hemorrhage Current Visit: No Status: Acute Code(s): I61.9 - NONTRAUMATIC INTRACEREBRAL HEMORRHAGE, UNSPECIFIED SNOMED Code(s): 259314226 (8) Major depressive disorder, recurrent severe without psychotic features Current Visit: No Status: Acute Priority: High Code(s): F33.2 - MAJOR DEPRESSV DISORDER, RECURRENT SEVERE W/O PSYCH FEATURES SNOMED Code(s): 87770686 (9) Nausea and vomiting Current Visit: No Status: Acute Code(s): R11.2 - NAUSEA WITH VOMITING, UNSPECIFIED SNOMED Code(s): 12037252 (10) Right lower quadrant abdominal pain Current Visit: No Status: Acute Code(s): R10.31 - RIGHT LOWER QUADRANT PAIN SNOMED Code(s): 412130313 (11) Suicidal ideation Current Visit: No Status: Acute Code(s): R45.851 - SUICIDAL IDEATIONS SNOMED Code(s): 4780331
--- NOTE | 2018-09-23 19:26 | XR ---
EXAMINATION TYPE: XR chest 1V DATE OF EXAM: 09/23/2018 COMPARISON: 10/17/2017 HISTORY: 52-year-old male with chest pain TECHNIQUE: Single frontal view of the chest is obtained. FINDINGS: Heart normal size. Aorta and pulmonary vasculature are within normal limits. Strandy atelectasis in t he lower lungs. No consolidation or pleural effusion. IMPRESSION: No acute cardiopulmonary process.
[2018-09-23] MEDS: QUEtiapine 100 MG TAB PO SCH (21:03)
[2018-09-23] MEDS: ATORVASTATIN 80 MG TAB PO SCH (21:06)
[2018-09-24] MEDS: CARVEDILOL 12.5 MG TAB PO SCH ×2 (09:04→21:26)
[2018-09-24] MEDS: VALSARTAN 160 MG TAB PO SCH (09:04)
[2018-09-24] MEDS: PHENYTOIN SODIUM EXTENDED 100 MG CAP PO SCH ×2 (09:04→21:26)
[2018-09-24] MEDS: clonazePAM 0.5 MG TAB PO SCH ×2 (09:04→21:29)
[2018-09-24] MEDS: HYDROCHLOROTHIAZIDE 25 MG TAB PO SCH (09:04)
[2018-09-24] MEDS: CITALOPRAM HYDROBROMIDE 20 MG TAB PO SCH (09:05)
[2018-09-24] MEDS: ASPIRIN 81 MG PO SCH (09:05)
[2018-09-24] MEDS: amLODIPine 5 MG TAB PO SCH (09:05)
--- NOTE | 2018-09-24 12:43 | P.PN ---
Progress Note - Text Progress Note Date: 09/24/18 Interval History: Patient is a 52-year-old male who was seen in his room as he stated he doesn't feel like getting up patient states that he's hungry and wants to eat. When I questioned the patient about the incident that occurred after dinner he states that he was just spitting up saliva that he did not throw up his dinner but that this occurred after he only took 2 bites. Patient is not going to groups, states he doesn't want to discuss anything at this time because he doesn't feel well from a physical standpoint. Mental Status: Appearance/Attitude: Patient is lying in bed, refuses to get up and come to the interview room, makes no eye contact and was superficially cooperative Behavior: Patient does not exhibit any psychomotor agitation or retardation Speech/Language: Patient responds to questions with very brief answers, he is coherent Thought Process: Patient is goal-directed although non-elaborative Thought Content: Patient denies auditory or visual hallucinations and no paranoid or delusional ideation is elicited. Patient complains about feeling hungry, stating he wants to eat, complaining about not feeling well from a physical standpoint. He states that when he woke up last night he couldn't tell there were people in his room. Suicidal/Homicidal Ideation: Patient states he still has some suicidal thoughts but no plan or intent to act and no current homicidal ideation Sensorium/Cognition: Patient is alert and oriented to person, place and time Mood/Affect: Patient's mood remains irritable, depressed and his affect is appropriate to his mood Insight/Judgment: Patient's insight and judgment are fair Assessment: Patient has remained in his room sleeping, is not attending groups or activities and declined a physical therapy assessment this morning. Patient was placed nothing by mouth last night after reporting to staff that he was throwing up he states today that he was just spitting up some saliva. He states he is now hungry and wants to eat. Patient remains irritable, stating that he doesn't feel well physically and refuses to leave his room to his coming to the interview room to speak with me. Patient's vital signs have been stable. Dilantin level was 9.4 which is on the low side. Plan: Patient continues on Celexa 40 mg daily, Seroquel 300 mg at bedtime and Klonopin 0.5 mg twice a day, patient is encouraged to get up out of his room and attend groups and activities. Patient continues to require hospitalization to further stabilize his mood.
[2018-09-24] MEDS: ACETAMINOPHEN TAB 325 MG TAB PO PRN ×2 (14:00→21:27)
[2018-09-24] MEDS: LORazepam 1 MG TAB PO PRN ×2 (14:04→19:07)
[2018-09-24] MEDS: QUEtiapine 100 MG TAB PO SCH (21:28)
[2018-09-24] MEDS: ATORVASTATIN 80 MG TAB PO SCH (21:28)
[2018-09-25] MEDS: amLODIPine 5 MG TAB PO SCH ×2 (10:17→13:23)
--- NOTE | 2018-09-25 11:54 | P.PN ---
Progress Note - Text Progress Note Date: 09/25/18 Interval History: Patient is a 52-year-old male who was seen and did come out in the huerta but asked to stop before he got to the interview room because it was too far for him to walk. Patient states that he is feeling weak because he hasn't had anything to eat and states that he'll be on a regular diet at lunchtime. Patient states that he's been staying in bed and feels weak. Patient reports that he can't answer questions about how he is feeling physically can't think that quickly. Patient has not been attending groups and has been in his room in bed. Patient again stated that he does not want any of his medications changed and only wants to take Celexa, Seroquel and Klonopin. Mental Status: Appearance/Attitude: Patient is dressed in a hospital gown, his grooming is disheveled using a walker to ambulate, makes only intermittent eye contact and is cooperative Behavior: Patient does not display any psychomotor agitation or retardation Speech/Language: Patient responds to questions only, speaks in a normal volume and rhythm and he is coherent Thought Process: Patient is goal-directed although not elaborative in his responses no evidence of loose association or flight of ideas Thought Content: Patient denies any auditory or visual hallucinations and no paranoid or delusional ideation is elicited. Patient states he's feeling too weak physically to really respond to question insist that none of his medications be changed from a psychiatric standpoint. Patient states that he is feeling weak and has been staying in bed but feels his stomach is okay to begin eating regular food today at lunchtime. Patient states that he has been sleeping Suicidal/Homicidal Ideation: patient states that he is not currently having any homicidal ideation and stated to me that he is too tired and weak to answer whether he is feeling suicidal, he thinks that he still has some suicidal thoughts Sensorium/Cognition: patient is alert and oriented to person, place and time Mood/Affect: patient's mood remains bland his affect restricted Insight/Judgment: patient's insight and judgment are fair Assessment: Patient continues to have somatic complaints, today reporting feeling weak due to not eating and stating that he does not want his medications changed once to continue on Celexa, Seroquel and Klonopin. Patient states the case too weak to think rapidly enough to answer a lot of questions. Patient has been staying in bed is not been attending groups or activities. Plan: patient will continue on Celexa 40 mg a day, Seroquel 300 at bedtime and Klonopin 0.5 twice a day. Patient was encouraged to get up out of bed and walk as well as attend groups and activities. Patient had declined a physical therapy evaluation yesterday. Patient continues to require hospitalization to further stabilize his mood and consider discharge later in the week.
[2018-09-25] MEDS: CITALOPRAM HYDROBROMIDE 20 MG TAB PO SCH (13:23)
[2018-09-25] MEDS: clonazePAM 0.5 MG TAB PO SCH ×2 (13:23→20:54)
[2018-09-25] MEDS: CARVEDILOL 12.5 MG TAB PO SCH ×2 (13:23→20:58)
[2018-09-25] MEDS: ASPIRIN 81 MG PO SCH (13:24)
[2018-09-25] MEDS: HYDROCHLOROTHIAZIDE 25 MG TAB PO SCH (13:24)
[2018-09-25] MEDS: VALSARTAN 160 MG TAB PO SCH (13:29)
[2018-09-25] MEDS: PHENYTOIN SODIUM EXTENDED 100 MG CAP PO SCH ×2 (13:29→20:52)
[2018-09-25] MEDS: ATORVASTATIN 80 MG TAB PO SCH (20:54)
[2018-09-25] MEDS: QUEtiapine 100 MG TAB PO SCH (20:54)
[2018-09-25] MEDS: ACETAMINOPHEN TAB 325 MG TAB PO PRN (20:56)
[2018-09-26] MEDS: LORazepam 1 MG TAB PO PRN (06:24)
[2018-09-26] MEDS: CARVEDILOL 12.5 MG TAB PO SCH ×2 (07:48→21:21)
[2018-09-26] MEDS: ASPIRIN 81 MG PO SCH (07:48)
[2018-09-26] MEDS: CITALOPRAM HYDROBROMIDE 20 MG TAB PO SCH (07:48)
[2018-09-26] MEDS: PHENYTOIN SODIUM EXTENDED 100 MG CAP PO SCH ×2 (07:49→20:50)
[2018-09-26] MEDS: HYDROCHLOROTHIAZIDE 25 MG TAB PO SCH (07:49)
[2018-09-26] MEDS: VALSARTAN 160 MG TAB PO SCH (07:50)
[2018-09-26] MEDS: clonazePAM 0.5 MG TAB PO SCH ×2 (09:01→20:50)
[2018-09-26] MEDS: NICOTINE 14MG/24HR PATCH TRANSDERM SCH (12:10)
--- NOTE | 2018-09-26 14:45 | P.PN ---
Progress Note - Text Progress Note Date: 09/26/18 Interval History: Patient is a 52-year-old male who was seen today, he is using a walker to ambulate and reports that he thinks all of his difficulties were due to restarting Flexeril which he states he wasn't supposed to restart but was accidentally restarted and his friend he takes care of his medications has been giving it to him. Patient states that he took this in the past and had difficulties when he stopped it for a month with the same side effects of feeling dizzy, and seeing spider webs at times. Patient states that he is not feeling suicidal, and that all of his current symptoms are due to having been recently on Flexeril. Patient states that he is eating and moving his bowels and feels better from that standpoint. Mental Status: Appearance/Attitude: Patient is casually dressed using a walker to ambulate, makes eye contact and is cooperative Behavior: Patient does not exhibit any psychomotor agitation or retardation. Speech/Language: Patient's speech is spontaneous of normal volume and rhythm and he is coherent. Thought Process: Patient is goal-directed there is no evidence of loose association or flight of ideas. Thought Content: Patient denies any auditory hallucinations and states that he occasionally sees what he describes as spider webs, patient has no paranoid or delusional ideation. Patient states that he's been up eating and has moved his bowels and feels better. Patient states that he feels all of his problems have been from the restart of Flexeril as an outpatient which she believes was an accident as he had discontinued in the past due to side effects similar what he is been feeling which is week, following and lightheaded. Patient is sleeping well. Suicidal/Homicidal Ideation: Patient denies any current suicidal or homicidal ideation Sensorium/Cognition: Patient is alert and oriented to person, place and time and his recent and remote memory are grossly intact Mood/Affect: Patient's mood remains bland his affect blunted Insight/Judgment: Patient insight and judgment are fair Assessment: Patient is reports that he feels all of the problems he is had recently her due to having restarted Flexeril, of falls at home feeling weak and dizzy, seeing spider web's. Patient states that he knows that this is what is causing because this is the same symptoms he had the last time he was on Flexeril and discontinued it. Patient has been eating, sleeping well and states he's moved his bowels and feels better. Patient is no longer any suicidal ideation and states that his mood will improve once he is withdrawn from the Flexeril. Patient has not been attending groups or activities but staying in his room all day. Patient continues to insist that no changes to his medications be made. Patient's blood pressure has been running low and his blood pressure medications have been adjusted. Plan: Patient will continue on Celexa 40 mg daily Seroquel 300 mg at night and Klonopin 0.5 mg twice a day, patient and I discussed discharge with no medication changes have been made to his psychiatric meds he feels that his symptoms that precipitated the admission were due to starting Flexeril again. Patient and I discussed discharge and he was agreeable to being discharged tomorrow.
--- NOTE | 2018-09-26 15:11 | P.PN ---
Subjective Progress Note Date: 09/26/18 Robert is a 52 y/o WM well know to me. He has recurrent migraines, seizures, mental illness, h/o ICB, hypertension and continues to smoke. He has been feeling weak and falling , hands numb along with ohter vague c/o. W/u in ER has been negative. He has been seeing Dr Fisher lately. Last night he was given IV fluids for Dehydraton suspect and has improved. Currently, he denies any chest pain, pessure, min SOB, no nausea, vomitting, diarrhea, constipation. he is on the psych floor wanting to get better. 09/26/2018 hypotensive, asymptomatic. Denies chest pain, palpitations or shortness of breath. Denies lightheadedness dizziness or focal deficits. Reports good diet intake with no nausea or vomiting. No abdominal pain. Objective - Vital Signs Vital signs: Vital Signs Temp 97.8 F 09/26/18 06:20 Pulse 69 09/26/18 08:58 Resp 16 09/26/18 06:20 BP 89/49 09/26/18 08:58 Pulse Ox 98 09/23/18 18:26 - Exam - Constitutional General appearance: average body habitus, disheveled - EENT Eyes: PERRLA - Neck Neck: no lymphadenopathy, no thyromegaly Carotids: bilateral: upstroke normal - Respiratory Respiratory: bilateral: CTA, diminished - Cardiovascular Rhythm: regular Heart sounds: normal: S1, S2 Abnormal Heart Sounds: no systolic murmur - Gastrointestinal General gastrointestinal: no hepatomegaly, normal bowel sounds, no splenomegaly - Neurologic Neurologic: CNII-XII intact - Musculoskeletal Musculoskeletal: gait normal - Psychiatric Psychiatric: A&O x's 3 - Labs CBC & Chem 7: 09/23/18 09:10 09/23/18 09:10 Assessment and Plan Assessment: (1) Anxiety Current Visit: No Status: Acute Priority: Medium Code(s): F41.9 - ANXIETY DISORDER, UNSPECIFIED SNOMED Code(s): 04438999 (2) Cerebrovascular accident Current Visit: No Status: Acute Code(s): I63.9 - CEREBRAL INFARCTION, UNSPECIFIED SNOMED Code(s): 501574538 (3) Dehydration Narrative/Plan: restart home meds as appropriate staff to closely monitor BP tobaccoism and smoking cessation education will follow with you as needed Thank you for allowing us to participate in his care! Current Visit: No Status: Acute Code(s): E86.0 - DEHYDRATION SNOMED Code(s): 45711961 (4) Essential (primary) hypertension Current Visit: No Status: Acute Code(s): I10 - ESSENTIAL (PRIMARY) HYPERTENSION SNOMED Code(s): 78217665 (5) Headache Current Visit: No Status: Acute Code(s): R51 - HEADACHE SNOMED Code(s): 42398316 (6) History of stroke Current Visit: No Status: Acute Priority: Low Code(s): Z86.73 - PRSNL HX OF TIA (TIA), AND CEREB INFRC W/O RESID DEFICITS SNOMED Code(s): 823291611 (7) Intracerebral hemorrhage Current Visit: No Status: Acute Code(s): I61.9 - NONTRAUMATIC INTRACEREBRAL HEMORRHAGE, UNSPECIFIED SNOMED Code(s): 523765357 (8) Major depressive disorder, recurrent severe without psychotic features Current Visit: No Status: Acute Priority: High Code(s): F33.2 - MAJOR DEPRESSV DISORDER, RECURRENT SEVERE W/O PSYCH FEATURES SNOMED Code(s): 71069643 (9) Nausea and vomiting Current Visit: No Status: Acute Code(s): R11.2 - NAUSEA WITH VOMITING, UNSPECIFIED SNOMED Code(s): 58597770 (10) hypotension, medications adjusted; Norvasc and HCTZ discontinued Plan: Continue current medication regime ,monitoring and symptomatic treatment. Norvasc and HCTZ discontinued. Close monitoring of blood pressure. Further recommendations to follow.
[2018-09-26] MEDS: ACETAMINOPHEN TAB 325 MG TAB PO PRN (15:13)
[2018-09-26] MEDS: QUEtiapine 100 MG TAB PO SCH (20:50)
[2018-09-26] MEDS: ATORVASTATIN 80 MG TAB PO SCH (20:50)
[2018-09-26] MEDS: SODIUM CHLORIDE 0.9% 1,000 ML IV SCH (23:54)
[2018-09-27 07:03] VITALS: BP 115/80; PULSE 66; RESP 14; TEMP 98.3
[2018-09-27] MEDS: ASPIRIN 81 MG PO SCH (08:46)
[2018-09-27] MEDS: VALSARTAN 160 MG TAB PO SCH (08:47)
[2018-09-27] MEDS: clonazePAM 0.5 MG TAB PO SCH (08:47)
[2018-09-27] MEDS: PHENYTOIN SODIUM EXTENDED 100 MG CAP PO SCH (08:47)
[2018-09-27] MEDS: CARVEDILOL 12.5 MG TAB PO SCH (08:47)
[2018-09-27] MEDS: NICOTINE 14MG/24HR PATCH TRANSDERM SCH (08:47)
[2018-09-27] MEDS: CITALOPRAM HYDROBROMIDE 20 MG TAB PO SCH (08:49)
--- NOTE | 2018-09-27 10:38 | P.DS ---
Providers Date of admission: 09/22/18 17:36 Expected date of discharge: 09/27/18 Attending physician: Lashell Nichole MD Consults: 09/22/18 20:01 Consult Physician Routine Consulting Provider: Derrick Fisher Jr Consult Reason/Comments: H and P Do you want consulting provider notified?: Yes Primary care physician: Srikanth Ervin [facility] Course: Discharge Diagnosis: Major depressive disorder, recurrent, moderate severity Reason for Admission: Patient is a 52-year-old male presented to the emergency room complaining of suicidal thoughts and depression. Patient states he had not been feeling well stating that he was "going to blow my brains out" because he was sick of being sick. Patient states he's been falling all the time thinks he's had several strokes because his right side isn't working as well get tingling in his arms complained about his hands turning black complaining about them having left a catheter in his hand when he was here last. Patient states that he hasn't been feeling well, was last seen at [facility] in June and states when he called them no one returned his calls. Patient states he is tired of going there and once his primary care doctor to handle all his medications. Patient reports that he's been taking his medications for both seizures and hypertension as well as his anxiety and depressive medications. Patient is currently prescribed BuSpar 15 mg twice a day, Celexa 40 mg a day and Seroquel 300 mg a day at bedtime by [facility] as well as Vistaril 50 mg capsules 3 times a day as needed however the patient is no longer using the Vistaril and has been taking Klonopin prescribed by his primary care 0.5 mg twice a day for his anxiety. Patient states that he comes to the hospital because he doesn't know what else to do and states that he was recently here for having a seizure. He doesn't think that it was a seizure he thinks he had another stroke. Patient since he's been falling at home because he is weaker on the right side and only just started using his walker at home again. He states he is not sleeping at night and has been taking his medication as a friend places it in a pillbox for him. Patient states that he thought the changes that were made in May when he was here in the inpatient unit did help but can't tell me sweats changed between now and then. Patient had an episode this morning on the inpatient unit where he got dizzy and was found on the ground. Patient states he's been falling and states it's because he feels dizzy. Patient states that he has been eating at home. He denies any drug use or alcohol use. Patient has a history of multiple prior admissions and multiple prior suicide attempts. Patient denies any manic symptoms, anxiety symptoms currently or in the past. Mental status on Admission: Appearance/Attitude: Patient is dressed in a hospital gown, his grooming is poor and he appears disheveled, using a walker to ambulate makes intermittent eye contact and is superficially cooperative Behavior: Patient does not display any psychomotor agitation or retardation Speech/Language: Patient's speech is spontaneous of normal volume and rhythm and he is coherent Thought Process: Patient is goal-directed with little elaboration no evidence of loose associations or flight of ideas Thought Content: Patient denies any auditory or visual hallucinations no delusions or paranoid ideation or elicited. Patient states he is tired of feeling sick, complains of multiple somatic issues such as having a catheter broken off in his hand, the backs of his hands turning black, he is had several strokes recently that have made his right side not work as well as it should, and patient states he is just tired of feeling sick. Patient states he was going to blow his brains out and asked why he presented to the hospital. Patient states that he doesn't want to return to [facility] and once his primary care doctor to prescribe his medications. Patient states he wasn't sleeping at home and was eating fairly well. Suicidal/Homicidal Ideation: Patient denies any current homicidal ideation and states he still feels suicidal but no current plan or intent to act Sensorium/Cognition: Patient is alert and oriented to person, place and time and his recent and remote memory were grossly intact. Mood/Affect: Patient's mood is depressed, irritable his affect is blunted Insight/Judgment: Patient's insight and judgment are fair Hospital Course: Patient was admitted on a voluntary basis, placed on routine observation in group and activity therapy were ordered. Patient also had routine laboratory studies including a Dilantin level and was continued on prior medications for his medical problems. A medical consultation was also obtained. Patient was to continue on Celexa 40 mg daily, Klonopin 0.5 mg twice a day and Seroquel 300 mg at bedtime. Patient complained of feeling lightheaded and dizzy during the course of the stay and his medications were adjusted. Patient also complained of nausea and vomiting during his stay he was placed on a clear liquid diet for a time and slowly advanced to a regular diet and no longer reported any nausea or vomiting. Patient's blood pressure stabilized after his medications were adjusted and he no longer reported feeling dizzy or lightheaded. Patient complained of his right arm feeling heavy like a weight was attached, was requesting transfer back to a rehabilitation unit, used a walker to ambulate. Patient reported that he no longer had that heavy sensation in his right arm and the swelling and numbness were much better. Patient spent the bulk of his stay in his room not attending any groups or activities. Patient reported on the night prior to discharge that he slept well, woke up without that heavy sensation in his right arm and felt ready to return home. Patient felt with the adjustments in his medications that he was doing well. Patient was not having any suicidal thoughts and states that he wasn't feeling as depressed. Allergies No Known Allergies Allergy (Verified 09/22/18 20:03) Laboratory Last Values WBC 10.7 k/uL (3.8-10.6) H 09/23/18 09:10 RBC 4.70 m/uL (4.30-5.90) 09/23/18 09:10 Hgb 15.0 gm/dL (13.0-17.5) 09/23/18 09:10 Hct 44.3 % (39.0-53.0) 09/23/18 09:10 MCV 94.3 fL (80.0-100.0) 09/23/18 09:10 MCH 31.9 pg (25.0-35.0) 09/23/18 09:10 MCHC 33.8 g/dL (31.0-37.0) 09/23/18 09:10 RDW 12.3 % (11.5-15.5) 09/23/18 09:10 Plt Count 224 k/uL (150-450) 09/23/18 09:10 Neutrophils % 76 % 09/23/18 09:10 Lymphocytes % 13 % 09/23/18 09:10 Monocytes % 9 % 09/23/18 09:10 Eosinophils % 1 % 09/23/18 09:10 Basophils % 0 % 09/23/18 09:10 Neutrophils # 8.1 k/uL (1.3-7.7) H 09/23/18 09:10 Lymphocytes # 1.4 k/uL (1.0-4.8) 09/23/18 09:10 Monocytes # 0.9 k/uL (0-1.0) 09/23/18 09:10 Eosinophils # 0.1 k/uL (0-0.7) 09/23/18 09:10 Basophils # 0.0 k/uL (0-0.2) 09/23/18 09:10 Sodium 138 mmol/L (137-145) 09/23/18 09:10 Potassium 4.0 mmol/L (3.5-5.1) 09/23/18 09:10 Chloride 102 mmol/L (98-107) 09/23/18 09:10 Carbon Dioxide 29 mmol/L (22-30) 09/23/18 09:10 Anion Gap 7 mmol/L 09/23/18 09:10 BUN 29 mg/dL (9-20) H 09/23/18 09:10 Creatinine 1.18 mg/dL (0.66-1.25) 09/23/18 09:10 Est GFR (CKD-EPI)AfAm 80 (>60 ml/min/1.73 sqM) 09/23/18 09:10 Est GFR (CKD-EPI)NonAf 70 (>60 ml/min/1.73 sqM) 09/23/18 09:10 Glucose 120 mg/dL (74-99) H 09/23/18 09:10 POC Glucose (mg/dL) 143 mg/dL (75-99) H 09/23/18 08:01 POC Glu Manager Call Center Charisma Kaba 09/23/18 08:[address] Glu mg/dL 111 09/23/18 09:10 Hemoglobin A1c 5.5 % (4.0-6.0) 09/23/18 09:10 Calcium 8.6 mg/dL (8.4-10.2) 09/23/18 09:10 Magnesium 2.4 mg/dL (1.6-2.3) H 09/23/18 09:13 Total Bilirubin 0.7 mg/dL (0.2-1.3) 09/23/18 09:10 AST 15 U/L (17-59) L 09/23/18 09:10 ALT 17 U/L (21-72) L 09/23/18 09:10 Alkaline Phosphatase 74 U/L (38-126) 09/23/18 09:10 Total Protein 6.3 g/dL (6.3-8.2) 09/23/18 09:10 Albumin 4.0 g/dL (3.5-5.0) 09/23/18 09:10 Triglycerides 274 mg/dL (<150) H 09/23/18 09:10 Cholesterol 141 mg/dL (<200) 09/23/18 09:10 LDL Cholesterol, Calc 48 mg/dL (0-99) 09/23/18 09:10 HDL Cholesterol 38 mg/dL (40-60) L 09/23/18 09:10 TSH 1.520 mIU/L (0.465-4.680) 09/23/18 09:10 Urine Opiates Screen Not Detected (NotDetected) 09/22/18 15:00 Ur Oxycodone Screen Not Detected (NotDetected) 09/22/18 15:00 Urine Methadone Screen Not Detected (NotDetected) 09/22/18 15:00 Ur Propoxyphene Screen Not Detected (NotDetected) 09/22/18 15:00 Ur Barbiturates Screen Detected (NotDetected) H 09/22/18 15:00 Phenytoin 9.4 ug/mL 09/24/18 09:50 U Tricyclic Antidepress Detected (NotDetected) H 09/22/18 15:00 Ur Phencyclidine Scrn Not Detected (NotDetected) 09/22/18 15:00 Ur Amphetamines Screen Not Detected (NotDetected) 09/22/18 15:00 U Methamphetamines Scrn Not Detected (NotDetected) 09/22/18 15:00 U Benzodiazepines Scrn Detected (NotDetected) H 09/22/18 15:00 Urine Cocaine Screen Not Detected (NotDetected) 09/22/18 15:00 U Marijuana (THC) Screen Not Detected (NotDetected) 09/22/18 15:00 Discharge Mental Status: Appearance/Attitude: Patient is casually dressed, grooming is slightly disheveled, he makes eye contact and uses a walker to ambulate and was cooperative Behavior: Patient did not display any psychomotor agitation or retardation. Speech/Language: Patient's speech was spontaneous of normal volume and rhythm and he was coherent. Thought Process: Patient is goal-directed there is no evidence of loose association or flight of ideas Thought Content: Patient denied any auditory or visual hallucinations and no delusions or paranoid ideation were elicited. Patient reported that he slept very well last night, reported no longer having the numbness and tingling in his right arm and no longer felt heavy is overweight was attached to it as he had been complaining about during his stay. Patient reported that he was no longer feeling lightheaded and dizzy and had been eating well. Suicidal/Homicidal Ideation: Patient denied any current suicidal or homicidal ideation Sensorium/Cognition: Patient was alert and oriented to person, place, and time and his recent and remote memory are grossly intact Mood/Affect: Patient's mood was bland his affect was appropriate Insight/Judgment: Patient's insight and judgment are fair Risk Assessment: Patient's risk for readmission is moderate should he not be compliant with medications and follow-up care. Discharge Plan: Patient will return home, he will continue on low-dose aspirin, Lipitor 80 mg at bedtime, Coreg 25 mg twice a day, Celexa 40 mg in the morning, Klonopin 0.5 mg twice a day, Keppra 750 mg 3 times a day, Dilantin 200 mg twice a day, Seroquel 300 mg at bedtime and Diovan 160 mg in the morning. Patient will be given prescriptions for all of his medications except his Klonopin which he states he has sufficient at home. Patient was encouraged to follow-up with his primary care physician in the next several days. Patient was encouraged to be compliant with follow-up care and appointments and avoid all alcohol and drugs. Patient will follow-up at [facility]. Patient Condition at Discharge: Stable Plan - Discharge Summary New Discharge Prescriptions: New Valsartan [Diovan] 160 mg PO DAILY #14 tab Continue clonazePAM [KlonoPIN] 0.5 mg PO BID Aspirin 81 mg PO DAILY #28 chew Carvedilol 25 mg PO BID #28 tablet Citalopram Hydrobromide [CeleXA] 40 mg PO DAILY #14 tab Phenytoin Sodium Extended [Dilantin] 200 mg PO BID #56 cap levETIRAcetam [Keppra] 750 mg PO TID #42 tab Atorvastatin [Lipitor] 80 mg PO HS #14 tab QUEtiapine FUMARATE [SEROquel] 300 mg PO HS #14 tab Discontinued Valsartan/Hydrochlorothiazide [Valsartan-Hctz 160-25 mg Tab] 1 tab PO DAILY amLODIPine [Norvasc] 5 mg PO DAILY busPIRone HCL [Buspar] 15 mg PO BID Discharge Medication List clonazePAM [KlonoPIN] 0.5 mg PO BID 09/22/18 [History] Aspirin 81 mg PO DAILY #28 chew 09/27/18 [Rx] Atorvastatin [Lipitor] 80 mg PO HS #14 tab 09/27/18 [Rx] Carvedilol 25 mg PO BID #28 tablet 09/27/18 [Rx] Citalopram Hydrobromide [CeleXA] 40 mg PO DAILY #14 tab 09/27/18 [Rx] Phenytoin Sodium Extended [Dilantin] 200 mg PO BID #56 cap 09/27/18 [Rx] QUEtiapine FUMARATE [SEROquel] 300 mg PO HS #14 tab 09/27/18 [Rx] Valsartan [Diovan] 160 mg PO DAILY #14 tab 09/27/18 [Rx] levETIRAcetam [Keppra] 750 mg PO TID #42 tab 09/27/18 [Rx] Follow up Appointment(s)/Referral(s): [facility] [Outside] - 10/03/18 12:00 pm (10-03-18 @12:00 with GABRIELA Ernandez 10-07-18 @ 11:00 with Fred Arce ) Srikanth Ervin MD [Primary Care Provider] - 1-2 days Patient Instructions/Handouts: Depression (DC), Suicide Prevention (DC) Activity/Diet/Wound Care/Special Instructions: Activity and diet as tolerated. No guns or weapons in the home. Refrain from alcohol and drugs that are not prescribed by your physician. Take all medications as prescribed by your physicians, and attend all follow up appointments as scheduled. If in need of medication refills, please go to your primary care physician, or your out patient psychiatric provider. If in crisis, please call , or go the nearest ER for an evaluation. Discharge Disposition: HOME SELF-CARE
== END 2018-09-27 14:15 | disposition home or self-care (01) | DRG 885 ==
LOC: EC 14:43 → 3MHU 17:36
PROVIDERS: ADMIT Psychiatry & Neurology Psychiatry; ATTEND Psychiatry & Neurology Psychiatry
DX: F33.1 Major depressive disorder, recurrent, moderate (principal); R45.851 Suicidal ideations; I95.9 Hypotension, unspecified; G40.909 Epilepsy, unspecified, not intractable, without status epilepticus; F41.0 Panic disorder [episodic paroxysmal anxiety]; E78.5 Hyperlipidemia, unspecified; G43.909 Migraine, unspecified, not intractable, without status migrainosus; R29.6 Repeated falls; J44.9 Chronic obstructive pulmonary disease, unspecified; E86.0 Dehydration; F10.11 Alcohol abuse, in remission; I10 Essential (primary) hypertension; F17.210 Nicotine dependence, cigarettes, uncomplicated; R10.31 Right lower quadrant pain; R11.2 Nausea with vomiting, unspecified; Z71.6 Tobacco abuse counseling; Z79.82 Long term (current) use of aspirin; Z79.899 Other long term (current) drug therapy; Z91.5 Personal history of self-harm; Z86.73 Personal history of transient ischemic attack (TIA), and cerebral infarction without residual deficits; Z86.010 Personal history of colon polyps; Z82.49 Family history of ischemic heart disease and other diseases of the circulatory system; Z80.42 Family history of malignant neoplasm of prostate; Z83.49 Family history of other endocrine, nutritional and metabolic diseases; Z82.61 Family history of arthritis
CPT/HCPCS: 71045; 80053; 80061; 80185; 80306; 82075; 83036; 83735; 84443; 85025; 93005; 94640; 99285

== ENCOUNTER 2018-10-17 18:47 | Emergency (ER) | payer OTHER ==
[2018-10-17] MEDS ORDERED: SODIUM CHLORIDE 0.9% 1,000 ML IV STA (18:54)
[2018-10-17] MEDS ORDERED: DIAZEPAM 5 MG/ML 2 ML INJ IVP STA (18:54)
[2018-10-17 18:55] VITALS: TEMP 98.3
[2018-10-17] MEDS ORDERED: levETIRAcetam IV 1,500 MG in SALINE 1 100ML.BAG IVPB STA (18:55)
[2018-10-17 19:13] LABS: Basophils # (A) 0.1 k/uL (0-0.2); Basophils % (A) 1 %; Eosinophils # (A) 0.3 k/uL (0-0.7); Eosinophils % (A) 5 %; HCT 38.4 % (39.0-53.0); HGB 13.2 gm/dL (13.0-17.5); Lymphocytes # (A) 1.2 k/uL (1.0-4.8); Lymphocytes % (A) 19 %; MCH 33.6 pg (25.0-35.0); MCHC 34.4 g/dL (31.0-37.0); MCV 97.7 fL (80.0-100.0); Monocytes # (A) 0.3 k/uL (0-1.0); Monocytes % (A) 5 %; Neutrophils # (A) 4.3 k/uL (1.3-7.7); Neutrophils % (A) 68 %; Platelet Count 211 k/uL (150-450); RBC 3.93 m/uL (4.30-5.90); RDW 13.9 % (11.5-15.5); WBC 6.3 k/uL (3.8-10.6)
--- NOTE | 2018-10-17 19:14 | ED ---
Seizure HPI - General Chief Complaint: Seizure Stated Complaint: seizure Time Seen by Provider: 10/17/18 18:53 Source: patient, EMS, RN notes reviewed, old records reviewed Mode of arrival: EMS Limitations: no limitations - History of Present Illness Initial Comments: This is a 53-year-old male the ER for evaluation. Patient had seizure, epileptic seizure prior to arrival. Seizure was just like prior alcohol about 10 minutes. Last seizure 2 weeks prior. Patient denies taking any drugs or alcohol, patient states he did taking all medications as prescribed. He is having a headache for a few days to see is all are from an elevated blood pressure leading to a stroke. Patient not currently on a blood thinners no current trauma. No symptoms currently MD Complaint: seizure -: hour(s) Description of Episode: loss of consciousness, tonic-clonic movement -: minutes(s) Witnessed: yes - by bystander Trauma: No Seizure History: known seizure disorder Place: home Possible Precipitating Event: none Associated Symptoms: denies other symptoms Treatments Prior to Arrival: none - Related Data Home Medications Medication Instructions Recorded Confirmed clonazePAM [KlonoPIN] 0.5 mg PO BID 09/22/18 10/17/18 Previous Rx's Medication Instructions Recorded Aspirin 81 mg PO DAILY #28 chew 09/27/18 Atorvastatin [Lipitor] 80 mg PO HS #14 tab 09/27/18 Carvedilol 25 mg PO BID #28 tablet 09/27/18 Citalopram Hydrobromide [CeleXA] 40 mg PO DAILY #14 tab 09/27/18 Phenytoin Sodium Extended 200 mg PO BID #56 cap 09/27/18 [Dilantin] QUEtiapine FUMARATE [SEROquel] 300 mg PO HS #14 tab 09/27/18 Valsartan [Diovan] 160 mg PO DAILY #14 tab 09/27/18 levETIRAcetam [Keppra] 750 mg PO TID #42 tab 09/27/18 Allergies Allergy/AdvReac Type Severity Reaction Status Date / Time No Known Allergies Allergy Verified 10/17/18 19:12 Review of Systems ROS Statement: Those systems with pertinent positive or pertinent negative responses have been documented in the HPI. ROS Other: All systems not noted in ROS Statement are negative. Past Medical History Past Medical History: CVA/TIA, Hyperlipidemia, Seizure Disorder Additional Past Medical History / Comment(s): L intraparenchymal hemorrhage L lung pneumothorax , Migraine Headaches. Left sided hemorrhagic stroke approximately 3 years ago occurred because patient had stopped all meds including antihypertensives History of Any Multi-Drug Resistant Organisms: None Reported Past Surgical History: No Surgical Hx Reported Additional Past Surgical History / Comment(s): COLONOSCOPY POLYPS REMOVED-NEG, bilateral cataract removal, R testicular surgery as a little boy. Past Anesthesia/Blood Transfusion Reactions: No Reported Reaction Additional Past Anesthesia/Blood Transfusion Reaction / Comment(s): Pt has never recieved blood. Past Psychological History: Anxiety, Bipolar, Depression, Panic Disorder Smoking Status: Current every day smoker Past Alcohol Use History: None Reported Past Drug Use History: None Reported - Past Family History Father Family Medical History: Cancer, Hyperlipidemia, Hypertension, Prostate Disorder Additional Family Medical History / Comment(s): PROSTATE CA Mother Family Medical History: Osteoarthritis (OA) Additional Family Medical History / Comment(s): MOM IS 71 General Exam Limitations: no limitations General appearance: alert, in no apparent distress Head exam: Present: atraumatic, normocephalic, normal inspection Eye exam: Present: normal appearance, PERRL, EOMI. Absent: scleral icterus, conjunctival injection, periorbital swelling ENT exam: Present: normal exam, mucous membranes moist Neck exam: Present: normal inspection. Absent: tenderness, meningismus, lymphadenopathy Respiratory exam: Present: normal lung sounds bilaterally. Absent: respiratory distress, wheezes, rales, rhonchi, stridor Cardiovascular Exam: Present: regular rate, normal rhythm, normal heart sounds. Absent: systolic murmur, diastolic murmur, rubs, gallop, clicks GI/Abdominal exam: Present: soft, normal bowel sounds. Absent: distended, tenderness, guarding, rebound, rigid Extremities exam: Present: normal inspection, full ROM, normal capillary refill. Absent: tenderness, pedal edema, joint swelling, calf tenderness Back exam: Present: normal inspection Neurological exam: Present: alert, oriented X3, CN II-XII intact Psychiatric exam: Present: normal affect, normal mood Skin exam: Present: warm, dry, intact, normal color. Absent: rash Course Vital Signs 10/17/18 10/17/18 10/17/18 18:52 19:30 20:00 Temperature 98.3 F Pulse Rate 56 L 52 L 57 L Respiratory 18 18 17 Rate Blood Pressure 182/108 173/112 166/100 O2 Sat by Pulse 97 97 95 Oximetry - Reevaluation(s) Reevaluation #1: 10/17/18 21:34 Medical records reviewed Reevaluation #2: 10/17/18 21:34 No seizure-like activity here in the ER Reevaluation #3: 10/17/18 21:34 Headache is resolved Medical Decision Making - Medical Decision Making 83 male the ER for evaluation. Patient patient presents for evaluation of recurrent seizure history of seizures. No seizures here in the ER CT labwork is normal aside from antiepileptics which are given here in the ER, patient can be discharged home - Lab Data Result diagrams: 10/17/18 18:54 10/17/18 18:54 Lab Results 10/17/18 10/17/18 10/17/18 Range/Units 18:54 18:54 19:20 WBC 6.3 (3.8-10.6) k/uL RBC 3.93 L (4.30-5.90) m/uL Hgb 13.2 (13.0-17.5) gm/dL Hct 38.4 L (39.0-53.0) % MCV 97.7 (80.0-100.0) fL MCH 33.6 (25.0-35.0) pg MCHC 34.4 (31.0-37.0) g/dL RDW 13.9 (11.5-15.5) % Plt Count 211 (150-450) k/uL Neutrophils % 68 % Lymphocytes % 19 % Monocytes % 5 % Eosinophils % 5 % Basophils % 1 % Neutrophils # 4.3 (1.3-7.7) k/uL Lymphocytes # 1.2 (1.0-4.8) k/uL Monocytes # 0.3 (0-1.0) k/uL Eosinophils # 0.3 (0-0.7) k/uL Basophils # 0.1 (0-0.2) k/uL Sodium 140 (137-145) mmol/L Potassium 3.8 (3.5-5.1) mmol/L Chloride 112 H (98-107) mmol/L Carbon Dioxide 21 L (22-30) mmol/L Anion Gap 7 mmol/L BUN 12 (9-20) mg/dL Creatinine 1.02 (0.66-1.25) mg/dL Est GFR (CKD-EPI)AfAm >90 (>60 ml/min/1.73 sqM) Est GFR (CKD-EPI)NonAf 83 (>60 ml/min/1.73 sqM) Glucose 84 (74-99) mg/dL Calcium 8.7 (8.4-10.2) mg/dL Total Bilirubin 0.3 (0.2-1.3) mg/dL AST 14 L (17-59) U/L ALT 14 L (21-72) U/L Alkaline Phosphatase 67 (38-126) U/L Creatine Kinase 76 (55-170) U/L Total Protein 6.0 L (6.3-8.2) g/dL Albumin 3.7 (3.5-5.0) g/dL Salicylates <1.0 mg/dL Urine Opiates Screen Not Detected (NotDetected) Ur Oxycodone Screen Not Detected (NotDetected) Urine Methadone Screen Not Detected (NotDetected) Ur Propoxyphene Screen Not Detected (NotDetected) Acetaminophen <10.0 ug/mL Ur Barbiturates Screen Detected H (NotDetected) Phenytoin 6.2 ug/mL Valproic Acid <10.0 ug/mL Carbamazepine <3.0 ug/mL U Tricyclic Antidepress Not Detected (NotDetected) Ur Phencyclidine Scrn Not Detected (NotDetected) Ur Amphetamines Screen Not Detected (NotDetected) U Methamphetamines Scrn Not Detected (NotDetected) U Benzodiazepines Scrn Not Detected (NotDetected) Urine Cocaine Screen Not Detected (NotDetected) U Marijuana (THC) Screen Not Detected (NotDetected) Serum Alcohol <10 mg/dL - EKG Data -: EKG Interpreted by Me (EKG shows sinus recurred 54, TX 236, QRS 90, QTc 445) - Radiology Data Radiology results: report reviewed (CT brain is negative for acute disease), image reviewed Disposition Clinical Impression: Epileptic seizure, Seizure disorder, Headache Disposition: HOME SELF-CARE Condition: Good Instructions (If sedation given, give patient instructions): Recurrent Seizures in Adults (ED) Is patient prescribed a controlled substance at d/c from ED?: No Referrals: Derrick Fisher Jr, [Primary Care Provider] - 1-2 days
[2018-10-17 19:25] LABS: ALT 14 U/L (21-72); AST 14 U/L (17-59); Acetaminophen <10.0 ug/mL; African American GFR (CKD) >90 (>60 ml/min/1.73 sqM); Albumin 3.7 g/dL (3.5-5.0); Alcohol <10 mg/dL; Alkaline Phosphatase 67 U/L (38-126); Anion Gap 7 mmol/L; Blood Urea Nitrogen 12 mg/dL (9-20); Calcium 8.7 mg/dL (8.4-10.2); Carbamazepine (Tegretol) <3.0 ug/mL; Carbon Dioxide 21 mmol/L (22-30); Chloride 112 mmol/L (98-107); Creatine Kinase 76 U/L (55-170); Glucose 84 mg/dL (74-99); Phenytoin (Dilantin) 6.2 ug/mL; Potassium 3.8 mmol/L (3.5-5.1); Salicylate <1.0 mg/dL; Sodium 140 mmol/L (137-145); Total Bilirubin 0.3 mg/dL (0.2-1.3)
[2018-10-17] MEDS ORDERED: MORPHINE SULFATE 4 MG/ML SYRINGE IVP STA (19:36)
[2018-10-17 19:51] LABS: Amphetamine Screen,Urine Not Detected (NotDetected); Barbiturate Screen,Urine Detected (NotDetected); Benzodiazepines Screen,Urine Not Detected (NotDetected); Cocaine Screen,Urine Not Detected (NotDetected); Methadone Screen, Urine Not Detected (NotDetected); Opiate Screen,Urine Not Detected (NotDetected); Oxycodone Screen, Urine Not Detected (NotDetected); Phencyclidine Screen,Urine Not Detected (NotDetected); Tricyclic Antidepressant,Urine Not Detected (NotDetected); Urn Cannabinoid Scrn Not Detected (NotDetected)
[2018-10-17] MEDS ORDERED: HYDROmorphone 1 MG/ML 1 ML SYRINGE IVP STA (20:30)
[2018-10-17] MEDS ORDERED: HYDROmorphone 1 MG/ML 1 ML SYRINGE IVP PRN (20:30)
--- NOTE | 2018-10-17 20:32 | CT ---
EXAMINATION: CT brain wo con DATE AND TIME: 10/17/2018 8:07 PM CLINICAL INDICATION: [facility]; Pain TECHNIQUE: Standard departmental protocol.; 1058.4; COMPARISON: CT 06/27/2018 FINDINGS: The calvarium is intact. There is no intracranial hemorrhage. There is no intracranial mass or mass effect. No definite new intra-axial attenuation defect. 2 cm left encephalomalacia high over the convexity redemonstrated, without interval change. The paranasal sinuses are unchanged from the prior study. The middle ear cavities and mastoid sinus air cells are clear. The orbits are unremarkable. IMPRESSION: No acute process; stable CT appearance.
--- NOTE | 2018-10-17 20:33 | XR ---
EXAMINATION: XR chest 2V DATE AND TIME: 10/17/2018 8:08 PM CLINICAL INDICATION: PH[facility]; Pain TECHNIQUE: Departmental protocol COMPARISON: 09/23/2018 FINDINGS: The lungs are clear. The pleural spaces are negative. The cardiac silhouette is not enlarged. The remainder of the mediastinal silhouette is unremarkable. The skeletal structures and soft tissues are negative for acute findings. IMPRESSION: No acute process.
[2018-10-17] MEDS ORDERED: PHENYTOIN SODIUM INJ 50 MG/ML 2 ML VIAL IV STA (21:03)
[2018-10-17] MEDS ORDERED: PHENYTOIN SODIUM IVPB STA (21:06)
[2018-10-17] MEDS ORDERED: SODIUM CHLORIDE 0.9% IVPB STA (21:06)
[2018-10-17 22:39] VITALS: BP 161/93; PULSE 58; RESP 12
[2018-10-17] MEDS ORDERED: cloNIDine HCL 0.2 MG TAB PO STA (23:11)
== END 2018-10-17 23:14 | disposition home or self-care (01) ==
LOC: EC 18:47
DX: G40.909 Epilepsy, unspecified, not intractable, without status epilepticus (principal); R51 Headache; F17.200 Nicotine dependence, unspecified, uncomplicated; Z79.899 Other long term (current) drug therapy; Z86.73 Personal history of transient ischemic attack (TIA), and cerebral infarction without residual deficits
CPT/HCPCS: 99285; 96365; 96375 ×4; 96361 ×2; 36415; 93005; 80156; 80164; 80053; 80177; 82550; 80185; 85025; 80306; 83520; 71046; 70450; G0480 ×2; J2270; J1165; J3360; J1170; J1953; 80320; 80329

== ENCOUNTER 2018-10-24 12:15 | Inpatient (IN) | payer MEDICAID, OTHER ==
[2018-10-24] MEDS ORDERED: ASPIRIN-ACET-CAFF 250-250-65MG 1 EACH TAB PO PRN (12:46)
[2018-10-24 13:30] LABS: Basophils # (A) 0.1 k/uL (0-0.2); Basophils % (A) 1 %; Eosinophils # (A) 0.2 k/uL (0-0.7); Eosinophils % (A) 3 %; Lymphocytes # (A) 1.2 k/uL (1.0-4.8); Lymphocytes % (A) 16 %; MCH 33.2 pg (25.0-35.0); MCHC 33.7 g/dL (31.0-37.0); MCV 98.5 fL (80.0-100.0); Mean Platelet Volume 7.3; Monocytes # (A) 0.6 k/uL (0-1.0); Monocytes % (A) 7 %; Neutrophils # (A) 5.5 k/uL (1.3-7.7); Neutrophils % (A) 72 %; Platelet Count 237 k/uL (150-450); RBC 5.08 m/uL (4.30-5.90); RDW 15.2 % (11.5-15.5); WBC 7.7 k/uL (3.8-10.6)
[2018-10-24 13:38] LABS: Albumin 4.8 g/dL (3.5-5.0); Calcium 9.3 mg/dL (8.4-10.2); Phenytoin (Dilantin) 18.9 ug/mL; Potassium 4.2 mmol/L (3.5-5.1); Total Bilirubin 0.5 mg/dL (0.2-1.3); Total Protein 7.6 g/dL (6.3-8.2)
[2018-10-24 13:44] LABS: HGB 16.8 gm/dL (13.0-17.5)
[2018-10-24 14:42] LABS: Amphetamine Screen,Urine Not Detected (NotDetected); Barbiturate Screen,Urine Detected (NotDetected); Benzodiazepines Screen,Urine Detected (NotDetected); Cocaine Screen,Urine Not Detected (NotDetected); Methadone Screen, Urine Not Detected (NotDetected); Opiate Screen,Urine Not Detected (NotDetected); Oxycodone Screen, Urine Detected (NotDetected); Phencyclidine Screen,Urine Not Detected (NotDetected); Tricyclic Antidepressant,Urine Detected (NotDetected); Urn Cannabinoid Scrn Not Detected (NotDetected)
--- NOTE | 2018-10-24 15:12 | ED ---
General Adult HPI - General Chief complaint: Psychiatric Symptoms Stated complaint: EPS eval Time Seen by Provider: 10/24/18 12:25 Source: patient, RN notes reviewed Mode of arrival: wheelchair Limitations: no limitations - History of Present Illness Initial comments: This a 53-year-old male who presents to the emergency department complaining of being suicidal. Patient states she's been having seizures for the last couple years ever since he had a stroke. Patient states he lives alone and is afraid and anxious because he is current have a seizure and therefore he is more recently come to the point where he is suicidal because he states he does nothing to worry about having a seizure and being alone and dieting. Patient has no specific plan but does state he is depressed and does not want to live anymore. Patient denies any physical complaints today other than his chronic headache. - Related Data Home Medications Medication Instructions Recorded Confirmed Baclofen [Lioresal] 10 mg PO TID 10/24/18 10/24/18 Phenytoin Sodium Extended 200 mg PO TID 10/24/18 10/24/18 [Dilantin] amLODIPine [Norvasc] 5 mg PO DAILY 10/24/18 10/24/18 levETIRAcetam [Keppra] 1,500 mg PO TID 10/24/18 10/24/18 Previous Rx's Medication Instructions Recorded Aspirin 81 mg PO DAILY #28 chew 09/27/18 Carvedilol 25 mg PO BID #28 tablet 09/27/18 Citalopram Hydrobromide [CeleXA] 40 mg PO DAILY #14 tab 09/27/18 QUEtiapine FUMARATE [SEROquel] 300 mg PO HS #14 tab 09/27/18 Valsartan [Diovan] 160 mg PO DAILY #14 tab 09/27/18 Allergies Allergy/AdvReac Type Severity Reaction Status Date / Time No Known Allergies Allergy Verified 10/24/18 13:08 Review of Systems ROS Statement: Those systems with pertinent positive or pertinent negative responses have been documented in the HPI. ROS Other: All systems not noted in ROS Statement are negative. Past Medical History Past Medical History: CVA/TIA, Hyperlipidemia, Seizure Disorder Additional Past Medical History / Comment(s): L intraparenchymal hemorrhage L lung pneumothorax , Migraine Headaches. Left sided hemorrhagic stroke approximately 3 years ago occurred because patient had stopped all meds including antihypertensives History of Any Multi-Drug Resistant Organisms: None Reported Past Surgical History: No Surgical Hx Reported Additional Past Surgical History / Comment(s): COLONOSCOPY POLYPS REMOVED-NEG, bilateral cataract removal, R testicular surgery as a little boy. Past Anesthesia/Blood Transfusion Reactions: No Reported Reaction Additional Past Anesthesia/Blood Transfusion Reaction / Comment(s): Pt has never recieved blood. Past Psychological History: Anxiety, Bipolar, Depression, Panic Disorder Smoking Status: Current every day smoker Past Alcohol Use History: None Reported Past Drug Use History: None Reported - Past Family History Father Family Medical History: Cancer, Hyperlipidemia, Hypertension, Prostate Disorder Additional Family Medical History / Comment(s): PROSTATE CA Mother Family Medical History: Osteoarthritis (OA) Additional Family Medical History / Comment(s): MOM IS 71 General Exam - General Exam Comments Initial Comments: GENERAL: Patient is well-developed and well-nourished. Patient is nontoxic and well- hydrated and is in mild distress. ENT: Neck is soft and supple. No significant lymphadenopathy is noted. Oropharynx is clear. Moist mucous membranes. Neck has full range of motion without eliciting any pain. EYES: The sclera were anicteric and conjunctiva were pink and moist. Extraocular movements were intact and pupils were equal round and reactive to light. Eyelids were unremarkable. PULMONARY: Unlabored respirations. Good breath sounds bilaterally. No audible rales rhonchi or wheezing was noted. CARDIOVASCULAR: There is a regular rate and rhythm without any murmurs gallops or rubs. ABDOMEN: Soft and nontender with normal bowel sounds. No palpable organomegaly was noted. There is no palpable pulsatile mass. SKIN: Skin is clear with no lesions or rashes and otherwise unremarkable. NEUROLOGIC: Patient is alert and oriented x3. Cranial nerves II through XII are grossly intact. Motor and sensory are also intact. Normal speech, volume and content. Symmetrical smile. MUSCULOSKELETAL: Normal extremities with adequate strength and full range of motion. No lower extremity swelling or edema. No calf tenderness. LYMPHATICS: No significant lymphadenopathy is noted PSYCHIATRIC: Patient states she suicidal and is extremely anxious Limitations: no limitations Course Vital Signs 10/24/18 12:25 Temperature 98.1 F Pulse Rate 72 Respiratory 18 Rate Blood Pressure 112/74 O2 Sat by Pulse 97 Oximetry Medical Decision Making - Medical Decision Making EPS evaluated the patient decided the patient should be admitted. - Lab Data Result diagrams: 10/24/18 13:10 10/24/18 13:10 Lab Results 10/24/18 10/24/18 10/24/18 Range/Units 13:10 13:10 13:50 WBC 7.7 (3.8-10.6) k/uL RBC 5.08 (4.30-5.90) m/uL Hgb 16.8 D (13.0-17.5) gm/dL Hct 50.0 (39.0-53.0) % MCV 98.5 (80.0-100.0) fL MCH 33.2 (25.0-35.0) pg MCHC 33.7 (31.0-37.0) g/dL RDW 15.2 (11.5-15.5) % Plt Count 237 (150-450) k/uL Neutrophils % 72 % Lymphocytes % 16 % Monocytes % 7 % Eosinophils % 3 % Basophils % 1 % Neutrophils # 5.5 (1.3-7.7) k/uL Lymphocytes # 1.2 (1.0-4.8) k/uL Monocytes # 0.6 (0-1.0) k/uL Eosinophils # 0.2 (0-0.7) k/uL Basophils # 0.1 (0-0.2) k/uL Sodium 137 (137-145) mmol/L Potassium 4.2 (3.5-5.1) mmol/L Chloride 101 (98-107) mmol/L Carbon Dioxide 22 (22-30) mmol/L Anion Gap 14 mmol/L BUN 30 H (9-20) mg/dL Creatinine 1.29 H (0.66-1.25) mg/dL Est GFR (CKD-EPI)AfAm 72 (>60 ml/min/1.73 sqM) Est GFR (CKD-EPI)NonAf 62 (>60 ml/min/1.73 sqM) Glucose 96 (74-99) mg/dL Calcium 9.3 (8.4-10.2) mg/dL Total Bilirubin 0.5 (0.2-1.3) mg/dL AST 15 L (17-59) U/L ALT 14 L (21-72) U/L Alkaline Phosphatase 79 (38-126) U/L Total Protein 7.6 (6.3-8.2) g/dL Albumin 4.8 (3.5-5.0) g/dL Urine Opiates Screen Not Detected (NotDetected) Ur Oxycodone Screen Detected H (NotDetected) Urine Methadone Screen Not Detected (NotDetected) Ur Propoxyphene Screen Not Detected (NotDetected) Ur Barbiturates Screen Detected H (NotDetected) Phenytoin 18.9 ug/mL U Tricyclic Antidepress Detected H (NotDetected) Ur Phencyclidine Scrn Not Detected (NotDetected) Ur Amphetamines Screen Not Detected (NotDetected) U Methamphetamines Scrn Not Detected (NotDetected) U Benzodiazepines Scrn Detected H (NotDetected) Urine Cocaine Screen Not Detected (NotDetected) U Marijuana (THC) Screen Not Detected (NotDetected) Disposition Clinical Impression: Acute anxiety, Suicidal ideation, Depression Disposition: ADMITTED IP TO THIS HOSP Referrals: Srikanth Ervin MD [Primary Care Provider] - 1-2 days Time of Disposition: 17:01
[2018-10-24 17:59] LABS: Appearance,Urine Clear (Clear); Bilirubin,Urine Negative (Negative); Blood,Urine Trace (Negative); Color,Urine Yellow; Glucose,Urine (UA) Negative (Negative); Ketones,Urine Negative (Negative); Leukocyte Esterase,Urine Negative (Negative); Nitrite,Urine Negative (Negative); PH, Urine 5.5 (5.0-8.0); Protein,Urine Negative (Negative); RBC,Urine 1 /hpf (0-5); Specific Gravity,Urine 1.009 (1.001-1.035); Urobilinogen,Urine <2.0 mg/dL (<2.0)
[2018-10-24] MEDS: CARVEDILOL 12.5 MG TAB PO SCH (18:46)
[2018-10-24] MEDS: NICOTINE 14MG/24HR PATCH TRANSDERM SCH (18:46)
[2018-10-24] MEDS ORDERED: QUEtiapine 100 MG TAB PO SCH (21:00)
[2018-10-24] MEDS ORDERED: QUEtiapine 50 MG TAB PO SCH (21:00)
[2018-10-24] MEDS: BACLOFEN 10 MG TAB PO SCH (21:00)
[2018-10-24] MEDS: PHENYTOIN SODIUM EXTENDED 100 MG CAP PO SCH (21:00)
[2018-10-24] MEDS: clonazePAM 0.5 MG TAB PO PRN (21:03)
[2018-10-25] MEDS: PHENYTOIN SODIUM EXTENDED 100 MG CAP PO SCH ×3 (08:02→20:49)
[2018-10-25] MEDS: CITALOPRAM HYDROBROMIDE 20 MG TAB PO SCH (08:03)
[2018-10-25] MEDS: CARVEDILOL 12.5 MG TAB PO SCH ×2 (08:03→16:50)
[2018-10-25] MEDS: VALSARTAN 160 MG TAB PO SCH (08:03)
[2018-10-25] MEDS: amLODIPine 5 MG TAB PO SCH (08:03)
[2018-10-25] MEDS: ATORVASTATIN 80 MG TAB PO SCH (08:03)
[2018-10-25] MEDS: HYDROCHLOROTHIAZIDE 25 MG TAB PO SCH (08:03)
[2018-10-25] MEDS: ASPIRIN 81 MG PO SCH (08:03)
[2018-10-25] MEDS: NICOTINE 14MG/24HR PATCH TRANSDERM SCH (08:03)
[2018-10-25] MEDS: BACLOFEN 10 MG TAB PO SCH ×3 (08:03→20:49)
[2018-10-25] MEDS: clonazePAM 0.5 MG TAB PO PRN (13:53)
--- NOTE | 2018-10-25 14:50 | P.HP ---
Psychiatric H&P - . H&P Date: 10/25/18 History & Physical: Allergies Allergy/AdvReac Type Severity Reaction Status Date / Time No Known Allergies Allergy Verified 10/24/18 13:08 Vital Signs Temp 97.7 F 10/25/18 06:52 Pulse 56 L 10/25/18 06:52 Resp 18 10/25/18 06:52 BP 96/56 10/25/18 06:52 Pulse Ox 98 10/24/18 17:52 Intake & Output 10/24/18 10/25/18 10/25/18 18:59 06:59 18:59 Weight 78.2 kg Laboratory Last Values WBC 7.7 k/uL (3.8-10.6) 10/24/18 13:10 RBC 5.08 m/uL (4.30-5.90) 10/24/18 13:10 Hgb 16.8 gm/dL (13.0-17.5) D 10/24/18 13:10 Hct 50.0 % (39.0-53.0) 10/24/18 13:10 MCV 98.5 fL (80.0-100.0) 10/24/18 13:10 MCH 33.2 pg (25.0-35.0) 10/24/18 13:10 MCHC 33.7 g/dL (31.0-37.0) 10/24/18 13:10 RDW 15.2 % (11.5-15.5) 10/24/18 13:10 Plt Count 237 k/uL (150-450) 10/24/18 13:10 Neutrophils % 72 % 10/24/18 13:10 Lymphocytes % 16 % 10/24/18 13:10 Monocytes % 7 % 10/24/18 13:10 Eosinophils % 3 % 10/24/18 13:10 Basophils % 1 % 10/24/18 13:10 Neutrophils # 5.5 k/uL (1.3-7.7) 10/24/18 13:10 Lymphocytes # 1.2 k/uL (1.0-4.8) 10/24/18 13:10 Monocytes # 0.6 k/uL (0-1.0) 10/24/18 13:10 Eosinophils # 0.2 k/uL (0-0.7) 10/24/18 13:10 Basophils # 0.1 k/uL (0-0.2) 10/24/18 13:10 Sodium 137 mmol/L (137-145) 10/24/18 13:10 Potassium 4.2 mmol/L (3.5-5.1) 10/24/18 13:10 Chloride 101 mmol/L (98-107) 10/24/18 13:10 Carbon Dioxide 22 mmol/L (22-30) 10/24/18 13:10 Anion Gap 14 mmol/L 10/24/18 13:10 BUN 30 mg/dL (9-20) H 10/24/18 13:10 Creatinine 1.29 mg/dL (0.66-1.25) H 10/24/18 13:10 Est GFR (CKD-EPI)AfAm 72 (>60 ml/min/1.73 sqM) 10/24/18 13:10 Est GFR (CKD-EPI)NonAf 62 (>60 ml/min/1.73 sqM) 10/24/18 13:10 Glucose 96 mg/dL (74-99) 10/24/18 13:10 Calcium 9.3 mg/dL (8.4-10.2) 10/24/18 13:10 Total Bilirubin 0.5 mg/dL (0.2-1.3) 10/24/18 13:10 AST 15 U/L (17-59) L 10/24/18 13:10 ALT 14 U/L (21-72) L 10/24/18 13:10 Alkaline Phosphatase 79 U/L (38-126) 10/24/18 13:10 Total Protein 7.6 g/dL (6.3-8.2) 10/24/18 13:10 Albumin 4.8 g/dL (3.5-5.0) 10/24/18 13:10 Urine Color Yellow 10/24/18 13:50 Urine Appearance Clear (Clear) 10/24/18 13:50 Urine pH 5.5 (5.0-8.0) 10/24/18 13:50 Ur Specific [place]by 1.009 (1.001-1.035) 10/24/18 13:50 Urine Protein Negative (Negative) 10/24/18 13:50 Urine Glucose (UA) Negative (Negative) 10/24/18 13:50 Urine Ketones Negative (Negative) 10/24/18 13:50 Urine Blood Trace (Negative) H 10/24/18 13:50 Urine Nitrite Negative (Negative) 10/24/18 13:50 Urine Bilirubin Negative (Negative) 10/24/18 13:50 Urine Urobilinogen <2.0 mg/dL (<2.0) 10/24/18 13:50 Ur Leukocyte Esterase Negative (Negative) 10/24/18 13:50 Urine RBC 1 /hpf (0-5) 10/24/18 13:50 Urine Opiates Screen Not Detected (NotDetected) 10/24/18 13:50 Ur Oxycodone Screen Detected (NotDetected) H 10/24/18 13:50 Urine Methadone Screen Not Detected (NotDetected) 10/24/18 13:50 Ur Propoxyphene Screen Not Detected (NotDetected) 10/24/18 13:50 Ur Barbiturates Screen Detected (NotDetected) H 10/24/18 13:50 Phenytoin 18.9 ug/mL 10/24/18 13:10 U Tricyclic Antidepress Detected (NotDetected) H 10/24/18 13:50 Levetiracetam 56.6 ug/mL (3.0-60.0) 10/24/18 13:10 Ur Phencyclidine Scrn Not Detected (NotDetected) 10/24/18 13:50 Ur Amphetamines Screen Not Detected (NotDetected) 10/24/18 13:50 U Methamphetamines Scrn Not Detected (NotDetected) 10/24/18 13:50 U Benzodiazepines Scrn Detected (NotDetected) H 10/24/18 13:50 Urine Cocaine Screen Not Detected (NotDetected) 10/24/18 13:50 U Marijuana (THC) Screen Not Detected (NotDetected) 10/24/18 13:50 10/25/18 14:08 IDENTIFYING DATA: Patient is a 53-year-old malewith the chronic history of depression, and significant seizure disorder uncontrolled, who lives alone in an apartment, unmarried and currently collects Social Security. HPI: Patient presented to the hospital with complaints of having suicidal ideations which are increasing with no specific plan along with increasing depression and anxiety. patient was agreeable to be interviewed in the office today Destiny was somewhat directable. Patient appeared to have poor hygiene and poor grooming and appeared to have a depressed affect. He states that he has been going through a lot with his seizure history claiming that he often fears that he is could have seizure and state how painful they are when they do occur. He claims that he has had 2 in the past month and feels hopeless in trying to prevent him. Patient also claims that 2 years ago he suffered a stroke and lost the right side of his body's function. He claims that he went through rehab however has not been adjusting as well. Patient claims that he cannot walk properly without a walker and has become more irritable, agitated at times tearful and isolative since his strokes. Patient claims that he feels that he is a burden on everybody because he is hard to take care of. He states that his sleep is poor however his appetite is good. At this current time he denies any suicidal or homicidal ideations intent or plan. He denies any history or current manic symptoms. At this time patient denies any auditory or visual hallucinations. Patient denies any flight of ideas racing thoughts and increased in goal directed behavior. Patient denies the use of any other recreational drugs including marijuana and however admits to using a half a pack to 2 packs per day of smoking cigarettes. PAST PSYCHIATRIC HISTORY: depression, anxiety. Patient was last admitted to this unit and discharged by Dr. Nichole on 09/22/2018. Patient has history of multiple psychiatric admissions to this unit in the past. Patient has been set up with [facility] however has had difficulty connecting with them. He states that Fred is his counselor at [facility]. He denies having a regular psychiatrist. His previous and only suicide attempt in the past was in the 90s and he tended to hang himself however claims that his mother interrupted it. PMH:uncontrolled seizure disorder. History of CVA 2 years ago with right-sided hemiparesis. Hypertension, hyperlipidemia. ALLERGIES: NKDA CHEMICAL DEPENDENCY HISTORY: as above FAMILY PSYCHIATRIC/SUBSTANCE USE HISTORY: claims that his mother suffers from bipolar disorder. SOCIAL HISTORY: lives alone in an apartment. Has support from his mother and a close friend. He is single, unemployed and collecting Social Security. MENTAL STATUS EXAM: General Appearance: [Patient appears to be other than stated age is directable however appears to have a depressed affect. Behavior: [Patient is calmly seated without any agitated behavior.] Speech: Patient's speech is fluent and nonpressured. Mood/Affect: Patient reports their mood is depressed, affect is congruent and constricted Suicidality/Homicidality: Patient denies having any suicidal or homicidal ideation intent or plan. patient did have passive suicidal ideations. Perceptions: Patient denies any auditory or visual hallucinations. Though content/process: There is no evidence of any delusional thought content and thought process is linear and goal-directed. Memory and concentration: AOX3, grossly intact for the purposes of this session. Can spell "WORLD" backwards Judgment and insight: poor STRENGTHS/WEAKNESSES: poor coping skills and difficulty with adjustment. Patient is resilient INTELLECT: average IMPRESSIONS: major depressive disorder, moderate-severe. Anxiety disorder unspecified. Nicotine use disorder PLAN: -Patient is admitted under voluntary status to [facility] for stabilization of psychiatric symptoms and safety.patient signed for medications and signed adult voluntary form, placed in the chart. -Will restart patient on 300 mg of Seroquel daily at bedtime for mood/irritability/insomnia. We'll also restart patient's citalopram at 40 mg daily for mood. We'll resume Klonopin 0.5 mg twice a day when necessary for anxiety. -Haldol PRN for agitation/aggression -given patient's history of recurrent/uncontrolled seizures, along with history of CVA will consult neurology for evaluation and recommendation on better controlling seizures along with possibly switching Keppra to an antiepileptic which preferably would not make patient's psychiatric symptoms worse. -Patient's creatinine level was increased on admission along with BUN. Levels were 1.29/30. Patient was encouraged to hydrate orally with fluids and will repeat basic metabolic panel. -Patient was informed of the risks, benefits and side effects of the medication and patient verbally consented to taking the medications. Patient signed med consent form and was placed in chart. -NRT was offered and patient accepted, ordered nicotine patch. - on board for discharge planning. patient will need to be reconnected again and closely monitored by [facility] upon discharge and put in place a crisis prevention plan. 10/25/18 14:36 10/25/18 14:47
[2018-10-25] MEDS: HALOPERIDOL LACTATE 5 MG/ML 1 ML VIAL IM PRN (20:49)
[2018-10-25] MEDS: QUEtiapine 100 MG TAB PO SCH (20:49)
[2018-10-25] MEDS: ACETAMINOPHEN TAB 325 MG TAB PO PRN (20:51)
[2018-10-26] MEDS: CARVEDILOL 12.5 MG TAB PO SCH (09:07)
[2018-10-26] MEDS: PHENYTOIN SODIUM EXTENDED 100 MG CAP PO SCH ×3 (09:07→21:27)
[2018-10-26] MEDS: NICOTINE 14MG/24HR PATCH TRANSDERM SCH (09:07)
[2018-10-26] MEDS: CITALOPRAM HYDROBROMIDE 20 MG TAB PO SCH (09:07)
[2018-10-26] MEDS: VALSARTAN 160 MG TAB PO SCH (09:07)
[2018-10-26] MEDS: ATORVASTATIN 80 MG TAB PO SCH (09:07)
[2018-10-26] MEDS: HYDROCHLOROTHIAZIDE 25 MG TAB PO SCH (09:08)
[2018-10-26] MEDS: amLODIPine 5 MG TAB PO SCH (09:08)
[2018-10-26] MEDS: ASPIRIN 81 MG PO SCH (09:08)
[2018-10-26] MEDS: BACLOFEN 10 MG TAB PO SCH ×3 (09:08→21:27)
--- NOTE | 2018-10-26 12:36 | P.HPIM ---
History of Present Illness H&P Date: 10/26/18 Chief Complaint: Suicidal ideations\depression Robert Johnson is a 53-year-old male patient well-known to our practice, with a long-standing history of depression and suicidal ideations, known history of hemorrhagic stroke and uncontrolled hypertension, which has become controlled over the last several months I saw Robert in the office last Sunday ordered and a seizure medication levels including Keppra, and Dilantin levels. Robert states that he feels like he is having seizures all the time and he told me he becomes depressed about that in the past he is Keppra nor Dilantin levels ever reach therapeutic levels I would discuss his meds with him at length and how to take them, he stated he had a lady friend that would come in and put his medications in a med bonilla 4 daily doses for him and somehow the only time he was therapeutic on his antiseizure meds was when he was in the hospital. I dosed meds Dilantin 100 mg 2 pills 3 times daily and Keppra 750 mg 2 pills twice daily on Sunday once I noticed Dilantin levels from emergency room visit the night before were quite subtherapeutic I asked Robert to return to the office the following Sunday or Sunday to obtain accurate levels he did not show up in the office and on he was admitted to the medical unit for depression and suicidal ideations. His Dilantin and Keppra levels were both therapeutic as no thomas in the chart . Blood pressure was noted to be stable however slightly low I held his evening dose of 25 mg carvedilol, All other blood pressure medicines the same we will reassess blood pressure in the morning. Currently recommending Keppra be given 750 mg 1 pill 3 times a day, Dilantin to 100 mg extended release pills 3 times daily. Will continue to follow patient closely Review of Systems Constitutional: Reports as per HPI, Reports chronic headaches Ears, nose, mouth and throat: Reports as per HPI Cardiovascular: Reports as per HPI Respiratory: Reports as per HPI Gastrointestinal: Reports as per HPI Genitourinary: Reports as per HPI Musculoskeletal: Reports as per HPI Neurological: Reports ataxia, Reports balance difficulties, Reports seizures Psychiatric: Reports anhedonia, Reports anxiety, Reports depression, Reports difficulty concentrating, Reports hopelessness, Reports sleep disturbances, Reports suicidal ideation Endocrine: Reports as per HPI Past Medical History Past Medical History: CVA/TIA, Hyperlipidemia, Seizure Disorder Additional Past Medical History / Comment(s): L intraparenchymal hemorrhage L lung pneumothorax , Migraine Headaches. Left sided hemorrhagic stroke approximately 3 years ago occurred because patient had stopped all meds including antihypertensives. Please note that this patient indescriminately uses narcotic medications for headaches that are given to him by other people or he purchase this I have spoken to him about these issues multiple times. And have asked him to make appointments to address these issues when they arise. I made myself available to him when he needs it History of Any Multi-Drug Resistant Organisms: None Reported Past Surgical History: No Surgical Hx Reported Additional Past Surgical History / Comment(s): COLONOSCOPY POLYPS REMOVED-NEG, bilateral cataract removal, R testicular surgery as a little boy. Past Anesthesia/Blood Transfusion Reactions: No Reported Reaction Additional Past Anesthesia/Blood Transfusion Reaction / Comment(s): Pt has never recieved blood. Past Psychological History: Anxiety, Bipolar, Depression, Panic Disorder Smoking Status: Current every day smoker Past Alcohol Use History: None Reported Past Drug Use History: None Reported - Past Family History Father Family Medical History: Cancer, Hyperlipidemia, Hypertension, Prostate Disorder Additional Family Medical History / Comment(s): PROSTATE CA Mother Family Medical History: Osteoarthritis (OA) Additional Family Medical History / Comment(s): MOM IS 71 Medications and Allergies Home Medications Medication Instructions Recorded Confirmed Type Carvedilol 25 mg PO BID #28 tablet 09/27/18 10/24/18 Rx Citalopram Hydrobromide [CeleXA] 40 mg PO DAILY #14 tab 09/27/18 10/24/18 Rx QUEtiapine FUMARATE [SEROquel] 300 mg PO HS #14 tab 09/27/18 10/24/18 Rx Aspirin [Adult Low Dose Aspirin EC] 81 mg PO DAILY 10/24/18 10/24/18 History Atorvastatin [Lipitor] 80 mg PO DAILY 10/24/18 10/24/18 History Baclofen [Lioresal] 10 mg PO TID 10/24/18 10/24/18 History Phenytoin Sodium Extended 200 mg PO TID 10/24/18 10/24/18 History [Dilantin] Valsartan/Hydrochlorothiazide 1 tab PO DAILY 10/24/18 10/24/18 History [Valsartan-Hctz 160-25 mg Tab] amLODIPine [Norvasc] 5 mg PO DAILY 10/24/18 10/24/18 History clonazePAM [KlonoPIN] 0.5 mg PO BID PRN 10/24/18 10/24/18 History levETIRAcetam [Keppra] 1,500 mg PO BID 10/24/18 10/24/18 History Allergies Allergy/AdvReac Type Severity Reaction Status Date / Time No Known Allergies Allergy Verified 10/24/18 13:08 Physical Exam Osteopathic Statement: *. No significant issues noted on an osteopathic structural exam other than those noted in the History and Physical/Consult. Vitals: Vital Signs Temp Pulse Pulse Resp BP 10/26/18 06:41 97.6 F 53 L 18 108/72 10/25/18 17:00 54 L 18 101/57 General: [Patient awake, alert and oriented times 3. Patient in no acute distress.] HEENT: [PERRL. EOMI. No pharyngeal erythema or exudate.] Neck: [No adenopathy.] Cardiac: [Heart regular in rate and rhythm. No S3. No S4. No clicks, rubs. No murmur.] Lungs: [Clear to auscultation bilaterally.] Abdomen: [No mass. No organomegaly. Bowel sounds presnt and normoactive in all 4 quadrants.] Extremes: [No edema no cyanosis no claudication normal pulses] : [] Musculoskeletal: [No joint erythema, edema or tenderness.] Skin: [No rash.] Neurologic: [No lateralizing deficits. CN II - XII grossly intact.] Lymphatic: [No adenopathy.] Results CBC & Chem 7: 10/24/18 13:10 10/24/18 13:10 Assessment and Plan (1) Acute anxiety Current Visit: Yes Status: Acute Code(s): F41.9 - ANXIETY DISORDER, UNSPECIFIED SNOMED Code(s): 28097112 (2) Depression Current Visit: Yes Status: Acute Priority: Low Code(s): F32.9 - MAJOR DEPRESSIVE DISORDER, SINGLE EPISODE, UNSPECIFIED SNOMED Code(s): 62934705 (3) Suicidal ideation Current Visit: Yes Status: Acute Code(s): R45.851 - SUICIDAL IDEATIONS SNOMED Code(s): 2476945 (4) Abdominal pain Current Visit: No Status: Acute Code(s): R10.9 - UNSPECIFIED ABDOMINAL PAIN SNOMED Code(s): 81405414 (5) Cerebrovascular accident Current Visit: No Status: Acute Code(s): I63.9 - CEREBRAL INFARCTION, UNSPECIFIED SNOMED Code(s): 137307032 (6) Epileptic seizure Current Visit: No Status: Acute Code(s): G40.909 - EPILEPSY, UNSP, NOT INTRACTABLE, WITHOUT STATUS EPILEPTICUS SNOMED Code(s): 80934400 (7) Essential (primary) hypertension Current Visit: No Status: Acute Code(s): I10 - ESSENTIAL (PRIMARY) HYPERTENSION SNOMED Code(s): 31496334 (8) Recurrent headache Current Visit: No Status: Acute Priority: Low Code(s): R51 - HEADACHE SNOMED Code(s): 68813234 Plan: Will monitor blood pressure and seizures as issues arise Will go over all meds including antiseizure medications as well as antihypertensives prior to discharge how the meds are supposed to be taken and when. We will attempt to make this as simple as possible for Josey when the time comes for him to be discharged home Time with Patient: Greater than 30
[2018-10-26] MEDS: ACETAMINOPHEN TAB 325 MG TAB PO PRN ×2 (12:43→18:47)
[2018-10-26] MEDS: clonazePAM 0.5 MG TAB PO PRN ×2 (12:43→21:33)
--- NOTE | 2018-10-26 15:19 | P.PN ---
Progress Note - Text Progress Note Date: 10/26/18 Interval history: Patient reports he was admitted with depression. He states that he did have a recent seizure prior to admission. Dr. Fisher saw him today and he is on Dilantin and Keppra. He states he was admitted with depression and was having thoughts of suicide. He does not voice any adverse psychotropic medication side effects. Mental status exam: He is alert and cooperative with the interview. His speech is fluent, not rapid or pressured. His thought processes are organized. His mood he describes recent depression. He denies any current thoughts of suicide. He does not show any active evidence of psychosis or agitation. Plan: Patient will be maintained on current psychotropic medication regimen. He does describe that of Klonopin right now is every 12 hours as needed, we discussed making it every 8 hours as needed with maximum of 2 doses per day, as he would like to be able to take it earlier than 12 hours if needed for anxiety. Continue to monitor for any medication side effects and monitor his ongoing response to treatment.
[2018-10-26] MEDS: QUEtiapine 100 MG TAB PO SCH (21:27)
[2018-10-27] MEDS: amLODIPine 5 MG TAB PO SCH (07:51)
[2018-10-27] MEDS: PHENYTOIN SODIUM EXTENDED 100 MG CAP PO SCH ×3 (07:51→21:00)
[2018-10-27] MEDS: ATORVASTATIN 80 MG TAB PO SCH (07:51)
[2018-10-27] MEDS: NICOTINE 14MG/24HR PATCH TRANSDERM SCH (07:51)
[2018-10-27] MEDS: HYDROCHLOROTHIAZIDE 25 MG TAB PO SCH (07:51)
[2018-10-27] MEDS: CARVEDILOL 12.5 MG TAB PO SCH (07:51)
[2018-10-27] MEDS: VALSARTAN 160 MG TAB PO SCH (07:52)
[2018-10-27] MEDS: ASPIRIN 81 MG PO SCH (07:52)
[2018-10-27] MEDS: CITALOPRAM HYDROBROMIDE 20 MG TAB PO SCH (07:52)
[2018-10-27] MEDS: clonazePAM 0.5 MG TAB PO PRN ×2 (07:53→19:13)
[2018-10-27] MEDS: ACETAMINOPHEN TAB 325 MG TAB PO PRN ×3 (07:54→21:01)
[2018-10-27] MEDS: BACLOFEN 10 MG TAB PO SCH ×3 (07:58→21:00)
[2018-10-27 09:10] LABS: African American GFR (CKD) >90 (>60 ml/min/1.73 sqM); Anion Gap 11 mmol/L; Blood Urea Nitrogen 33 mg/dL (9-20); Calcium 9.5 mg/dL (8.4-10.2); Carbon Dioxide 25 mmol/L (22-30); Chloride 103 mmol/L (98-107); Glucose 139 mg/dL (74-99); Non-African American GFR(CKD) 78 (>60 ml/min/1.73 sqM); Potassium 4.6 mmol/L (3.5-5.1); Sodium 139 mmol/L (137-145)
--- NOTE | 2018-10-27 11:01 | P.PN ---
Progress Note - Text Progress Note Date: 10/27/18 Interval history: Patient seen in [facility] in today. He reports his sleep was on and off last night. He says he woke up in an okay mood today he verbalizes continuing to have some on and off thoughts of suicide but feels safe here on the unit. We discussed his blood pressure today and it is noted that his Keppra and Dilantin levels are within therapeutic range Mental status exam: He is alert and cooperative with the interview. His speech is fluent, not rapid or pressured. His affect overall is restricted. His mood he describes he woke up in an okay mood. He admits to some on and off thoughts of suicide but reports he feels safe here on the unit. I do not note any evidence of psychosis. He does not show any agitation. Plan: Patient will be maintained on current psychotropic medication regimen. We'll continue to monitor for any medication side effects and monitor his ongoing response to treatment.
[2018-10-27] MEDS: QUEtiapine 100 MG TAB PO SCH (21:00)
[2018-10-28] MEDS: NICOTINE 14MG/24HR PATCH TRANSDERM SCH (08:45)
[2018-10-28] MEDS: PHENYTOIN SODIUM EXTENDED 100 MG CAP PO SCH ×3 (08:45→20:55)
[2018-10-28] MEDS: CARVEDILOL 12.5 MG TAB PO SCH (08:46)
[2018-10-28] MEDS: BACLOFEN 10 MG TAB PO SCH ×3 (08:46→20:11)
[2018-10-28] MEDS: VALSARTAN 160 MG TAB PO SCH (08:46)
[2018-10-28] MEDS: ATORVASTATIN 80 MG TAB PO SCH (08:46)
[2018-10-28] MEDS: ASPIRIN 81 MG PO SCH (08:46)
[2018-10-28] MEDS: HYDROCHLOROTHIAZIDE 25 MG TAB PO SCH (08:46)
[2018-10-28] MEDS: CITALOPRAM HYDROBROMIDE 20 MG TAB PO SCH (08:46)
[2018-10-28] MEDS: amLODIPine 5 MG TAB PO SCH (09:24)
--- NOTE | 2018-10-28 13:59 | P.PN ---
Progress Note - Text Progress Note Date: 10/28/18 Interval History: Patient was seen in the hallways and was agreeable to speak to technical writer in room. Patient was more cooperative today and appeared to have a mildly brighter affect. Patient states that he continues to feel depressed and dizzy however it is mildly improving for him. He claims that he still has some suicidal ideations however no active plan and states that he feels safe in the hospital being cared for. Patient claims that he has been trying to go to more groups now and is finding some of them helpful. Patient claims that he spoke with a neurologist earlier today and is on board with switching his antiepileptic medications. He states that he continues to have anxiety and thoughts about his seizures and how painful they are. At this time patient denies any suicidal or homical ideations, intent or plan. Patient denies any auditory, visual hallucinations and denies any paranoia or delusions. Mental Status Exam: General Appearance: [Patient appears to be stated age is alert, cooperative and directable. Patient's grooming and hygiene are mildly improved. Behavior: [Patient is calmly seated without any agitated behavior.] Speech: Patient's speech is fluent and nonpressured. Mood/Affect: Patient reports their mood is improving, affect is congruent and constricted. Suicidality/Homicidality: Patient denies having any suicidal or homicidal ideation intent or plan. Perceptions: Patient denies any auditory or visual hallucinations. Though content/process: [There is no evidence of any delusional thought content and thought process is linear and goal-directed.] Some depressive content. Memory and concentration: AOX3, grossly intact for the purposes of this session Judgment and insight: Improving IMPRESSIONS: major depressive disorder, moderate-severe. Anxiety disorder unspecified. Nicotine use disorder PLAN: -Patient continues to meet criteria for inpatient psychiatric hospitalization for safety. patient signed for medications and signed adult voluntary form, placed in the chart. -Medications : We'll continue 300 mg of Seroquel daily at bedtime for mood/irritability/insomnia. Continue with citalopram at 40 mg daily for mood. Will decrease Klonopin to 0.5 mg twice a day when necessary for anxiety. -Haldol PRN for agitation/aggression -given patient's history of recurrent/uncontrolled seizures, along with history of CVA, neurology consult did and awaiting recommendations on cross titration of antiepileptics. -NRT was offered and patient accepted, ordered nicotine patch. -SW on board for discharge planning. patient will need to be reconnected again and closely monitored by [facility] upon discharge and put in place a crisis prevention plan.
[2018-10-28] MEDS: ACETAMINOPHEN TAB 325 MG TAB PO PRN ×2 (14:07→20:11)
[2018-10-28] MEDS: clonazePAM 0.5 MG TAB PO PRN ×2 (14:12→21:54)
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
[2018-10-28] MEDS ORDERED: ASPIRIN-ACET-CAFF 250-250-65MG 1 EACH TAB PO ONE ×2 (17:25→17:29)
[2018-10-28] MEDS: QUEtiapine 100 MG TAB PO SCH (20:11)
[2018-10-28] MEDS: HALOPERIDOL LACTATE 5 MG/ML 1 ML VIAL IM PRN (20:21)
[2018-10-29] MEDS: ATORVASTATIN 80 MG TAB PO SCH (09:03)
[2018-10-29] MEDS: NICOTINE 14MG/24HR PATCH TRANSDERM SCH (09:03)
[2018-10-29] MEDS: lamoTRIgine 25 MG TAB PO SCH (09:04)
[2018-10-29] MEDS: CARVEDILOL 12.5 MG TAB PO SCH (09:04)
[2018-10-29] MEDS: HYDROCHLOROTHIAZIDE 25 MG TAB PO SCH (09:04)
[2018-10-29] MEDS: CITALOPRAM HYDROBROMIDE 20 MG TAB PO SCH (09:05)
[2018-10-29] MEDS: VALSARTAN 160 MG TAB PO SCH (09:05)
[2018-10-29] MEDS: PHENYTOIN SODIUM EXTENDED 100 MG CAP PO SCH ×3 (09:05→20:59)
[2018-10-29] MEDS: amLODIPine 5 MG TAB PO SCH (09:05)
--- NOTE | 2018-10-29 09:06 | P.PN ---
Progress Note - Text Progress Note Date: 10/29/18 Interval History: Patient was seen this morning in the hallways and was agreeable to speak to wr margy. Patient appeared to be irritable today and states that he is upset because he was served a court paper to appear in court tomorrow from the [facility] with regards to noncompliance of follow-up and treatment. Patient states that he was feeling much better until he got served the court papers yesterday and states that it was downhill from there. Patient claims that today he feels slightly more positive about it and claims that he cannot explain to the housing court judge what happened. He claims that he is attempting to go to some groups and finding them beneficial. Patient continues to be preoccupied with his seizure medications and asked several questions about the new medication Lamictal which is being recommended to start.. At this time patient denies any suicidal or homical ideations, intent or plan. Patient denies any auditory, visual hallucinations and denies any paranoia or delusions. Patient denies any side effects from the medications and has been compliant with meds. Mental Status Exam: General Appearance: Patient appears to be stated age is alert, cooperative and directable. Patient's grooming and hygiene are mildly improved. Behavior: [Patient is calmly seated without any agitated behavior.] Speech: Patient's speech is fluent and nonpressured. Mood/Affect: Patient reports their mood is improving, affect is congruent and constricted. Suicidality/Homicidality: Patient denies having any suicidal or homicidal ideation intent or plan. Perceptions: Patient denies any auditory or visual hallucinations. Though content/process: [There is no evidence of any delusional thought content and thought process is linear and goal-directed.] Preoccupied with court and seizure medications. Memory and concentration: AOX3, grossly intact for the purposes of this session Judgment and insight: Improving IMPRESSIONS: major depressive disorder, moderate-severe. Anxiety disorder unspecified. Nicotine use disorder PLAN: -Patient continues to meet criteria for inpatient psychiatric hospitalization for safety. patient signed for medications and signed adult voluntary form, placed in the chart. -Medications : We'll continue 300 mg of Seroquel daily at bedtime for mood/irritability/insomnia. Continue with citalopram at 40 mg daily for mood. Will decrease Klonopin to 0.5 mg twice a day when necessary for anxiety. -As per neurology recommendation, we will start 50 mg of Lamictal daily with plan to titrate up to target dose and plan to titrate off Keppra as Keppra is likely contributing to increased in psychiatric symptoms. -Haldol PRN for agitation/aggression -NRT was offered and patient accepted, ordered nicotine patch. -SW on board for discharge planning. Patient was served papers to appear in court tomorrow to have a court order for mandated outpatient treatment.
[2018-10-29] MEDS: ASPIRIN 81 MG PO SCH (09:07)
[2018-10-29] MEDS: ACETAMINOPHEN TAB 325 MG TAB PO PRN ×2 (09:07→15:17)
[2018-10-29] MEDS: BACLOFEN 10 MG TAB PO SCH ×3 (09:55→20:58)
[2018-10-29] MEDS: clonazePAM 0.5 MG TAB PO PRN (19:21)
[2018-10-29] MEDS: QUEtiapine 100 MG TAB PO SCH (20:58)
[2018-10-30] MEDS: NICOTINE 14MG/24HR PATCH TRANSDERM SCH (08:49)
[2018-10-30] MEDS: amLODIPine 5 MG TAB PO SCH (08:50)
[2018-10-30] MEDS: CITALOPRAM HYDROBROMIDE 20 MG TAB PO SCH (08:50)
[2018-10-30] MEDS: lamoTRIgine 25 MG TAB PO SCH ×2 (08:51→21:41)
[2018-10-30] MEDS: ATORVASTATIN 80 MG TAB PO SCH (08:51)
[2018-10-30] MEDS: PHENYTOIN SODIUM EXTENDED 100 MG CAP PO SCH ×3 (08:51→21:41)
[2018-10-30] MEDS: VALSARTAN 160 MG TAB PO SCH (08:51)
[2018-10-30] MEDS: ASPIRIN 81 MG PO SCH (08:51)
[2018-10-30] MEDS: HYDROCHLOROTHIAZIDE 25 MG TAB PO SCH (08:51)
[2018-10-30] MEDS: CARVEDILOL 12.5 MG TAB PO SCH (08:51)
[2018-10-30] MEDS: BACLOFEN 10 MG TAB PO SCH ×3 (08:52→21:41)
[2018-10-30] MEDS: ACETAMINOPHEN TAB 325 MG TAB PO PRN ×3 (09:22→20:19)
[2018-10-30] MEDS: SODIUM CHLORIDE 0.65% NASAL SPRAY 44 ML BTL NASAL PRN ×2 (10:03→17:28)
--- NOTE | 2018-10-30 10:06 | P.PN ---
Progress Note - Text Progress Note Date: 10/30/18 Interval History: Patient was seen in group this morning, was participating and was agreeable to speak to continuity writer in the office. Patient continues to be somatically preoccupied with pain and restrictions in his movement with his arm due to his stroke which has been chronic. Patient always also speaks of headaches which she's had and how he thinks it may be migraines. Patient spoke of having anxiety about court today and claims that he is willing to go at 3 PM. Patient claims that his mood is improving gradually and feels less depressed. He claims that his anxiety is a little more under control. He states that his sleep is still "on and off". He states that he is eating well at this time. At this time patient denies any suicidal or homical ideations, intent or plan. Patient denies any auditory, visual hallucinations and denies any paranoia or delusions. Patient has been compliant with meds. Mental Status Exam: General Appearance: Patient appears to be stated age is alert, cooperative and directable. Patient's grooming and hygiene are mildly improved. Behavior: Patient is calmly seated without any agitated behavior. Speech: Patient's speech is fluent and nonpressured. Mood/Affect: Patient reports their mood is mildly improving, affect is congruent and constricted. Suicidality/Homicidality: Patient denies having any suicidal or homicidal ideation intent or plan. Perceptions: Patient denies any auditory or visual hallucinations. Though content/process: There is no evidence of any delusional thought content and thought process is linear and goal-directed. Preoccupied with court and seizure medications, and somatic symptoms. Memory and concentration: AOX3, grossly intact for the purposes of this session Judgment and insight: Improving IMPRESSIONS: major depressive disorder, moderate-severe rule out bipolar depression. Anxiety disorder unspecified. Nicotine use disorder PLAN: -Patient continues to meet criteria for inpatient psychiatric hospitalization for safety. patient signed for medications and signed adult voluntary form, placed in the chart. -Medications : We'll continue 300 mg of Seroquel daily at bedtime for mood/irritability/insomnia. Continue with citalopram at 40 mg daily for mood. Will continue with Klonopin to 0.5 mg twice a day when necessary for anxiety. -As per neurology recommendation, we will continue with cross titration of Lamictal with Keppra. Today increase Lamictal to 50 mg daily +25 mg daily at bedtime with plan to titrate up to target dose and plan to titrate off Keppra as Keppra is likely contributing to increased in psychiatric symptoms. -Haldol PRN for agitation/aggression -NRT was offered and patient accepted, ordered nicotine patch. -SW on board for discharge planning. Patient was served papers to appear in court today to have a court order for mandated outpatient treatment.
[2018-10-30] MEDS: clonazePAM 0.5 MG TAB PO PRN (10:55)
[2018-10-30] MEDS: QUEtiapine 100 MG TAB PO SCH (21:41)
[2018-10-31] MEDS ORDERED: lamoTRIgine 25 MG TAB PO SCH (09:00)
[2018-10-31] MEDS: ATORVASTATIN 80 MG TAB PO SCH (09:03)
[2018-10-31] MEDS: NICOTINE 14MG/24HR PATCH TRANSDERM SCH (09:03)
[2018-10-31] MEDS: VALSARTAN 160 MG TAB PO SCH (09:03)
[2018-10-31] MEDS: lamoTRIgine 25 MG TAB PO SCH ×2 (09:03→20:40)
[2018-10-31] MEDS: BACLOFEN 10 MG TAB PO SCH ×3 (09:03→20:41)
[2018-10-31] MEDS: CITALOPRAM HYDROBROMIDE 20 MG TAB PO SCH (09:03)
[2018-10-31] MEDS: PHENYTOIN SODIUM EXTENDED 100 MG CAP PO SCH ×3 (09:03→20:42)
[2018-10-31] MEDS: amLODIPine 5 MG TAB PO SCH (09:04)
[2018-10-31] MEDS: HYDROCHLOROTHIAZIDE 25 MG TAB PO SCH (09:04)
[2018-10-31] MEDS: ASPIRIN 81 MG PO SCH (09:04)
[2018-10-31] MEDS: CARVEDILOL 12.5 MG TAB PO SCH (09:04)
[2018-10-31] MEDS: ACETAMINOPHEN TAB 325 MG TAB PO PRN ×3 (09:08→20:44)
[2018-10-31] MEDS: SODIUM CHLORIDE 0.65% NASAL SPRAY 44 ML BTL NASAL PRN ×3 (09:46→20:44)
--- NOTE | 2018-10-31 09:48 | P.PN ---
Progress Note - Text Progress Note Date: 10/31/18 Interval History: Patient was seen in the hallways and was agreeable to speak to casualty underwriter, patient was directable and appropriate during interview. Patient continues to state that he has ongoing headaches from the moment that he wakes up he claims that coffee/caffeine is helping with that however patient points to his sinuses in the back of his neck and states that it is ongoing and would really like something to help with that. She states that he is attempting to use less of a walker to walk around which is helping him to become more mobile. Patient claims that his mood is gradually improving with the medications and states they're important to him. Patient also spoke about the meeting with the assistant administrator yesterday claims that he opted to defer a court at this time and agrees with the order for follow-up. Patient claims that his anxiety is improving. He states that he slept a little bit better last night. At this time patient admits to passive suicidal ideations however no active plan or intent. Patient denies any auditory, visual hallucinations and denies any paranoia or delusions. Patient denies any side effects from the medications and has been compliant with meds. Patient was again informed of the risk of a rash associated with Lamictal, patient claims that he does not have any significant rash and shows casualty underwriter his arms legs which don't appear to have any new rash. Mental Status Exam: General Appearance: Patient appears to be stated age is alert, cooperative and directable. Patient's grooming and hygiene are mildly improved. Behavior: Patient is calmly seated without any agitated behavior. Speech: Patient's speech is fluent and nonpressured. Mood/Affect: Patient reports their mood is mildly improving, affect is congruent and constricted. Suicidality/Homicidality: Patient denies having any suicidal or homicidal ideation intent or plan. Perceptions: Patient denies any auditory or visual hallucinations. Somatically preoccupied Though content/process: There is no evidence of any delusional thought content and thought process is linear and goal-directed. Preoccupied with court and seizure medications, and somatic symptoms. Memory and concentration: AOX3, grossly intact for the purposes of this session Judgment and insight: Improving mildly IMPRESSIONS: major depressive disorder, moderate-severe. R/O bipolar depression. Anxiety disorder unspecified. Nicotine use disorder PLAN: -Patient continues to meet criteria for inpatient psychiatric hospitalization for safety. patient signed for medications and signed adult voluntary form, placed in the chart. -Medications : We'll continue 300 mg of Seroquel daily at bedtime for mood stabilization/irritability/insomnia. Continue with citalopram at 40 mg daily for mood. Will continue with Klonopin to 0.5 mg twice a day when necessary for anxiety. -As per neurology recommendation, we will continue with cross titration of Lamictal with Keppra. Continue with Lamictal to 50 mg daily +25 mg daily at bedtime with plan to titrate up to target dose and plan to titrate off Keppra as Keppra is likely contributing to increased in psychiatric symptoms. -Haldol PRN for agitation/aggression -NRT - nicotine patch. - on board for discharge planning. Patient has deferred a court and agreed to mandated outpatient treatment. When psychiatrically stable, patient to follow up with [facility] with appropriate home visits and contact.
[2018-10-31] MEDS ORDERED: diphenhydrAMINE 25 MG CAP PO STA (15:02)
[2018-10-31] MEDS: clonazePAM 0.5 MG TAB PO PRN (19:23)
[2018-10-31] MEDS: QUEtiapine 100 MG TAB PO SCH (20:41)
[2018-11-01] MEDS: NICOTINE 14MG/24HR PATCH TRANSDERM SCH (08:49)
[2018-11-01] MEDS: VALSARTAN 160 MG TAB PO SCH (08:49)
[2018-11-01] MEDS: ATORVASTATIN 80 MG TAB PO SCH (08:49)
[2018-11-01] MEDS: ASPIRIN 81 MG PO SCH (08:50)
[2018-11-01] MEDS: CITALOPRAM HYDROBROMIDE 20 MG TAB PO SCH (08:50)
[2018-11-01] MEDS: CARVEDILOL 12.5 MG TAB PO SCH (08:50)
[2018-11-01] MEDS: BACLOFEN 10 MG TAB PO SCH ×3 (08:50→21:41)
[2018-11-01] MEDS: lamoTRIgine 25 MG TAB PO SCH ×2 (08:51→21:40)
[2018-11-01] MEDS: PHENYTOIN SODIUM EXTENDED 100 MG CAP PO SCH ×3 (08:51→21:39)
[2018-11-01] MEDS: amLODIPine 5 MG TAB PO SCH (08:51)
[2018-11-01] MEDS: HYDROCHLOROTHIAZIDE 25 MG TAB PO SCH (08:52)
[2018-11-01] MEDS: ACETAMINOPHEN TAB 325 MG TAB PO PRN ×2 (08:55→17:20)
--- NOTE | 2018-11-01 10:39 | P.PN ---
Progress Note - Text Progress Note Date: 11/01/18 Interval History: patient was seen in the hallways and was agreeable to speak with the comic writer in the office. Patient states that he is continuing to have headaches which started in the morning and are only relieved by caffeine however persist throughout the day. Patient claims that he used ice pack yesterday which gave him some relief. He states that overall his mood and anxiety have gradually been improving. Patient claims that he is still anxious about being discharged soon however acknowledges it. Patient was trying to walk without a walker. He states that he is sleeping better at night and has fair energy and appetite.. At this time patient denies any suicidal or homical ideations, intent or plan. Patient denies any auditory, visual hallucinations and denies any paranoia or delusions. Patient denies any side effects from the medications and has been compliant with meds. Mental Status Exam: General Appearance: Patient appears to be stated age is alert, cooperative and directable. Patient's grooming and hygiene are mildly improved. Behavior: Patient is calmly seated without any agitated behavior. Speech: Patient's speech is fluent and nonpressured. Mood/Affect: Patient reports their mood is mildly improving, affect is congruent and constricted. Suicidality/Homicidality: Patient denies having any suicidal or homicidal ideation intent or plan. Perceptions: Patient denies any auditory or visual hallucinations. Somatically preoccupied Though content/process: There is no evidence of any delusional thought content and thought process is linear and goal-directed. Memory and concentration: AOX3, grossly intact for the purposes of this session Judgment and insight: Improving mildly IMPRESSIONS: major depressive disorder, moderate-severe. R/O bipolar depression. Anxiety disorder unspecified. Nicotine use disorder PLAN: -Patient continues to meet criteria for inpatient psychiatric hospitalization for safety. patient signed for medications and signed adult voluntary form, placed in the chart. -Medications : We'll continue 300 mg of Seroquel daily at bedtime for mood stabilization/irritability/insomnia. Continue with citalopram at 40 mg daily for mood. Will continue with Klonopin to 0.5 mg twice a day when necessary for anxiety. -As per neurology recommendation, we will continue with cross titration of Lamictal with Keppra. Continue increasing Lamictal to 50 mg daily +50 mg daily at bedtime with plan to titrate up to target dose and plan to titrate off Keppra as Keppra is likely contributing to increased in psychiatric symptoms.Keppra would likely need to be titrated off as an outpatient by his neurologist. -we'll appreciate further recommendations by medical doctor with regards to management of chronic persistent headaches. -Haldol PRN for agitation/aggression -NRT - nicotine patch. -SW on board for discharge planning. Patient has deferred a court and agreed to mandated outpatient treatment. When psychiatrically stable, patient to follow up with [facility] with appropriate home visits and contact.
[2018-11-01] MEDS ORDERED: SUMAtriptan SUCCINATE 50 MG TAB PO STA (13:33)
[2018-11-01] MEDS ORDERED: TOPIRAMATE 25 MG TAB PO SCH (13:45)
--- NOTE | 2018-11-01 14:00 | P.PN ---
Subjective Progress Note Date: 11/01/18 Robert Johnson is a 53-year-old male patient well-known to our practice, with a long-standing history of depression and suicidal ideations, known history of hemorrhagic stroke and uncontrolled hypertension, which has become controlled over the last several months I saw Robert in the office last Sunday ordered and a seizure medication levels including Keppra, and Dilantin levels. Robert states that he feels like he is having seizures all the time and he told me he becomes depressed about that in the past he is Keppra nor Dilantin levels ever reach therapeutic levels I would discuss his meds with him at length and how to take them, he stated he had a lady friend that would come in and put his medications in a med bonilla 4 daily doses for him and somehow the only time he was therapeutic on his antiseizure meds was when he was in the hospital. I dosed meds Dilantin 100 mg 2 pills 3 times daily and Keppra 750 mg 2 pills twice daily on Sunday once I noticed Dilantin levels from emergency room visit the night before were quite subtherapeutic I asked Robert to return to the office the following Sunday or Sunday to obtain accurate levels he did not show up in the office and on he was admitted to the medical unit for depression and suicidal ideations. His Dilantin and Keppra levels were both therapeutic as noted in the chart . Blood pressure was noted to be stable however slightly low I held his evening dose of 25 mg carvedilol, All other blood pressure medicines the same we will reassess blood pressure in the morning. Currently recommending Keppra be given 750 mg 1 pill 3 times a day, Dilantin to 100 mg extended release pills 3 times daily. Will continue to follow patient closely 11/01/2018 Complaints of fluctuating headache that recurred last night, radiating from neck, up through frontal head. Mild worsening with light. Denies blurred vision, lightheadedness, dizziness or focal deficits. No nausea or vomiting. VSS, blood pressure controlled, no tachycardia, afebrile. Objective - Vital Signs Vital signs: Vital Signs Temp 98 F 11/01/18 06:53 Pulse 63 11/01/18 06:53 Resp 18 11/01/18 06:53 BP 129/79 11/01/18 06:53 Pulse Ox 98 10/27/18 19:10 - Exam General: [Patient awake, alert and oriented times 3. Patient in no acute distress.] HEENT: [PERRL. EOMI. No pharyngeal erythema or exudate. Positive horizontal nystagmus Neck: [No adenopathy.] Negative Spurling's Cardiac: [Heart regular in rate and rhythm. No S3. No S4. No clicks, rubs. No murmur.] Lungs: [Clear to auscultation bilaterally.] Abdomen: [No mass. No organomegaly. Bowel sounds presnt and normoactive in all 4 quadrants.] Extremes: [No edema no cyanosis no claudication normal pulses] Musculoskeletal: [No joint erythema, edema or tenderness.] Skin: [No rash.] Neurologic: Positive horizontal nystagmus. Ambulating with walker without difficulty, no motor strength/sensitivity loss, speech fluent and appropriate. Strength and sensation grossly intact Lymphatic: [No adenopathy.] - Labs CBC & Chem 7: 10/24/18 13:10 10/27/18 08:26 Assessment and Plan Assessment: (1) Acute anxiety Current Visit: Yes Status: Acute Code(s): F41.9 - ANXIETY DISORDER, UNSPECIFIED SNOMED Code(s): 92452563 (2) Depression Current Visit: Yes Status: Acute Priority: Low Code(s): F32.9 - MAJOR DEPRESSIVE DISORDER, SINGLE EPISODE, UNSPECIFIED SNOMED Code(s): 41593676 (3) Suicidal ideation Current Visit: Yes Status: Acute Code(s): R45.851 - SUICIDAL IDEATIONS SNOMED Code(s): 6828547 (4) Abdominal pain Current Visit: No Status: Acute Code(s): R10.9 - UNSPECIFIED ABDOMINAL PAIN SNOMED Code(s): 65677172 (5) Cerebrovascular accident Current Visit: No Status: Acute Code(s): I63.9 - CEREBRAL INFARCTION, UNSPECIFIED SNOMED Code(s): 744589001 (6) Epileptic seizure Current Visit: No Status: Acute Code(s): G40.909 - EPILEPSY, UNSP, NOT INTRACTABLE, WITHOUT STATUS EPILEPTICUS SNOMED Code(s): 74607049 (7) Essential (primary) hypertension Current Visit: No Status: Acute Code(s): I10 - ESSENTIAL (PRIMARY) HYPERTENSION SNOMED Code(s): 01952665 (8) Recurrent headache Current Visit: No Status: Acute Priority: Low Code(s): R51 - HEADACHE SNOMED Code(s): 58910692 Plan: Continue current medication regime ,monitoring and symptomatic treatment. Imitrex, Topamax ordered. Head CT ordered. Further recommendations to follow. The impression and plan of care has been dictated as directed. : I performed a history and examination of this patient, discussed the same with the dictator. I agree with the dictator's note ,documented as a scribe. Any additional findings or plans will be noted.
--- NOTE | 2018-11-01 15:07 | CT ---
EXAMINATION TYPE: CT brain wo con DATE OF EXAM: 11/01/2018 COMPARISON: 10/17/2018 HISTORY: Headache. CT DLP: 1061.8 mGycm Automated exposure control for dose reduction was used. FINDINGS: No acute intracranial hemorrhage. Redemonstration of left frontal linear areas encephalomalacia exten ding to the callosal junction, similar to prior. Extra-axial spaces are clear. No hydrocephalus. Ther e appears to be an asymmetric low-attenuation area in the medial right temporal lobe on axial image 1 6 and coronal image 30. Otherwise, werner-white matter differentiation is preserved. Skull base is inta ct. Redemonstration of opacified left middle and posterior ethmoid air cells. Mastoid air cells are c lear. Orbits are intact. IMPRESSION: NO ACUTE INTRACRANIAL HEMORRHAGE. SLIGHTLY ASYMMETRIC AREA OF LOW ATTENUATION IN THE MEDIAL RIGHT TEMPORAL LOBE IN THE MIDDLE CRANIAL F VANDANA. FINDINGS ARE LIKELY RELATED TO STREAK ARTIFACT FROM BONE, BUT OTHER ETIOLOGIES ARE NOT EXCLUDED . IF SYMPTOMS PERSIST, FURTHER EVALUATION WITH MRI OF THE BRAIN WITHOUT CONTRAST MAY BE PERFORMED.
[2018-11-01] MEDS: SODIUM CHLORIDE 0.65% NASAL SPRAY 44 ML BTL NASAL PRN (17:41)
[2018-11-01] MEDS: clonazePAM 0.5 MG TAB PO PRN (19:11)
[2018-11-01] MEDS: QUEtiapine 100 MG TAB PO SCH (21:39)
[2018-11-02] MEDS: VALSARTAN 160 MG TAB PO SCH (08:50)
[2018-11-02] MEDS: lamoTRIgine 25 MG TAB PO SCH ×2 (08:55→21:01)
[2018-11-02] MEDS: CARVEDILOL 12.5 MG TAB PO SCH (08:55)
[2018-11-02] MEDS: PHENYTOIN SODIUM EXTENDED 100 MG CAP PO SCH ×3 (08:55→21:01)
[2018-11-02] MEDS: amLODIPine 5 MG TAB PO SCH (08:55)
[2018-11-02] MEDS: HYDROCHLOROTHIAZIDE 25 MG TAB PO SCH (08:55)
[2018-11-02] MEDS: NICOTINE 14MG/24HR PATCH TRANSDERM SCH (08:56)
[2018-11-02] MEDS: ATORVASTATIN 80 MG TAB PO SCH (08:56)
[2018-11-02] MEDS: BACLOFEN 10 MG TAB PO SCH ×3 (08:56→21:02)
[2018-11-02] MEDS: CITALOPRAM HYDROBROMIDE 20 MG TAB PO SCH (08:56)
[2018-11-02] MEDS: ASPIRIN 81 MG PO SCH (08:56)
[2018-11-02] MEDS: clonazePAM 0.5 MG TAB PO PRN ×2 (08:57→21:00)
[2018-11-02] MEDS: ACETAMINOPHEN TAB 325 MG TAB PO PRN ×2 (08:58→18:57)
[2018-11-02] MEDS: SODIUM CHLORIDE 0.65% NASAL SPRAY 44 ML BTL NASAL PRN ×2 (13:03→21:02)
[2018-11-02] MEDS: IBUPROFEN 800 MG TAB PO PRN ×2 (15:42→20:23)
--- NOTE | 2018-11-02 18:48 | PN ---
PROGRESS NOTE DATE OF SERVICE: 11/02/2018. CHIEF COMPLAINT: The patient had depression with suicidal thinking without a plan. He had a number of stress issues including having recurrent seizures. INTERVAL HISTORY: Patient has been doing fair. He had a quiet evening last night. He comes out in the day area. He will wander about. He will interact some with others. Mostly he seems to keep to himself. He has been having persistent complaints of a headache. He says he gets headaches in the back of his head that radiate over the top of his head and down to his sinuses. He reports that he sleeps fair at night. Today, he has been up. He comes out in the day area. He attends groups sporadically. His main focus is on his headache and he seeks medications to help. He talked at length about seizure problems that he has had which causes him a lot of distress. He seems to indicate that he is quite prone to recurring seizures. He notes that he can feel a seizure coming on. He described to Ms Lala in the office prior to admission that he feels like he is having a seizure "all the time." He says that is one factor in his depression because he feels helpless and scared. He was seen by Dr. Muhammad on the . Dr. Muhammad apparently ordered an EEG, though it has yet to be completed. He had 3 past EEGs that were unremarkable and did not show seizure activity. The patient said his mood has been fair. He feels he is doing somewhat better with his medications. He tolerates his psychotropic medications. It is noted, the patient was quite concerned about his having been petitioned by his therapist at [facility], he said that he deferred because he had no interest in pursuing the process in court. He notes that he has been working with a therapist that he found to be not helpful. He said the [facility] liaison person indicated he would be setting up getting set up for the ACT team once he is discharged. MENTAL STATUS: Patient gave fair eye contact. He was somewhat restless. He answered questions with direct responses. He, at times, made tangential comments about some of his treatment issues. His affect was constricted. He was somewhat anxious. His mood dysphoric. He seems somewhat distressed. There was no outward evidence of thought disorder. Cognition was clear. ASSESSMENT: I will continue the current diagnosis and treatment plan. I will continue psychotropic medications the same. I will add Motrin 800 mg 3 times a day for headaches. The patient indicates that he has used Motrin at home with good relief of headaches. I reviewed his psychotropic medications. He is in the process of being cross titrated, adding Lamictal and ultimately going off Keppra. We will continue to focus on stabilization and discharge planning. PROMISE / ESVIN: [id number] /
[2018-11-02] MEDS: QUEtiapine 100 MG TAB PO SCH (21:01)
[2018-11-03] MEDS: HYDROCHLOROTHIAZIDE 25 MG TAB PO SCH (09:28)
[2018-11-03] MEDS: CITALOPRAM HYDROBROMIDE 20 MG TAB PO SCH (09:28)
[2018-11-03] MEDS: amLODIPine 5 MG TAB PO SCH (09:28)
[2018-11-03] MEDS: ATORVASTATIN 80 MG TAB PO SCH (09:28)
[2018-11-03] MEDS: ASPIRIN 81 MG PO SCH (09:28)
[2018-11-03] MEDS: VALSARTAN 160 MG TAB PO SCH (09:28)
[2018-11-03] MEDS: BACLOFEN 10 MG TAB PO SCH ×4 (09:29→19:54)
[2018-11-03] MEDS: CARVEDILOL 12.5 MG TAB PO SCH (09:29)
[2018-11-03] MEDS: NICOTINE 14MG/24HR PATCH TRANSDERM SCH (09:30)
[2018-11-03] MEDS: PHENYTOIN SODIUM EXTENDED 100 MG CAP PO SCH ×3 (09:31→20:49)
[2018-11-03] MEDS: lamoTRIgine 25 MG TAB PO SCH ×2 (09:32→20:48)
[2018-11-03] MEDS: IBUPROFEN 800 MG TAB PO PRN ×3 (09:37→20:51)
--- NOTE | 2018-11-03 11:53 | PN ---
PROGRESS NOTE DATE OF SERVICE: 11/03/2018. CHIEF COMPLAINT: The patient had depression with suicidal thinking without a plan. He had a number of stress issues including having recurrent seizures. INTERVAL HISTORY: Patient continues to struggle. His main focus is headaches. He described persistent headaches as noted yesterday. He was asking for some additional doses of Imitrex and Topamax which he received on Sunday. He says that Motrin which was added has not helped him. He said he is taking it at home and it had not helped, though it is noteworthy, when I talked to him yesterday, he seemed to indicate that he would get some benefit from Motrin, though typically he would take 1600 mg at a time. His mood was down. He slept fair last night. Today he has been up. He wanders about the unit. He continues to show a down mood. He attended group at 9:30 am this morning. He was noted to show the following: "Depressed, flat, disheveled, drowsy, minimally verbal, low energy." He appears to tolerate his psychotropic medications. MENTAL STATUS: Patient gave fair eye contact. He was restless. He answered questions with brief responses. His thoughts were clear. His affect was flat. Mood depressed. He was significantly distressed. There was no outward evidence of thought disorder. ASSESSMENT: I will continue the current diagnosis and treatment plan. I discussed options for his headaches with the patient. I offered that we go up on Seroquel and give him some lower doses during the day time, which may help reduce stress, calm his body down and potentially help with headaches. The patient was adamant about not wanting to take any more Seroquel and said he was fixed on just taking his nighttime Seroquel as prescribed. I also said we could consider adding caffeine. In regard to his request for Imitrex and Topamax, I indicated to the patient that Dr. Ervin had written the order for those medications on Sunday, then in consultation with Dr. Alatorre the medications were discontinued. I indicated that we would try to contact Dr. Ervin or his partner and if we were not able to get a hold of either of them, I would not be able to prescribe those medications given that the clinical decision was made between Dr. Ervin and Dr. Alatorre. We would have to defer those issues until [place]. We will continue to focus on stabilization and discharge planning. MMODL / IJN: [id number] /
[2018-11-03] MEDS ORDERED: SUMAtriptan SUCCINATE 50 MG TAB PO PRN (12:15)
[2018-11-03] MEDS ORDERED: SUMAtriptan SUCCINATE 6 MG/0.5 ML VIAL SQ PRN (12:16)
[2018-11-03] MEDS ORDERED: ASPIRIN-ACET-CAFF 250-250-65MG 1 EACH TAB PO PRN (12:17)
[2018-11-03] MEDS: clonazePAM 0.5 MG TAB PO PRN ×2 (15:11→20:49)
[2018-11-03] MEDS: SODIUM CHLORIDE 0.65% NASAL SPRAY 44 ML BTL NASAL PRN (15:18)
[2018-11-03] MEDS: QUEtiapine 100 MG TAB PO SCH (20:48)
[2018-11-04] MEDS: NICOTINE 14MG/24HR PATCH TRANSDERM SCH (08:52)
[2018-11-04] MEDS: BACLOFEN 10 MG TAB PO SCH ×3 (08:53→20:44)
[2018-11-04] MEDS: CITALOPRAM HYDROBROMIDE 20 MG TAB PO SCH (08:53)
[2018-11-04] MEDS: ATORVASTATIN 80 MG TAB PO SCH (08:53)
[2018-11-04] MEDS: CARVEDILOL 12.5 MG TAB PO SCH (08:53)
[2018-11-04] MEDS: amLODIPine 5 MG TAB PO SCH (08:53)
[2018-11-04] MEDS: VALSARTAN 160 MG TAB PO SCH (08:53)
[2018-11-04] MEDS: lamoTRIgine 25 MG TAB PO SCH ×2 (08:53→20:44)
[2018-11-04] MEDS: PHENYTOIN SODIUM EXTENDED 100 MG CAP PO SCH ×3 (08:53→20:45)
[2018-11-04] MEDS: HYDROCHLOROTHIAZIDE 25 MG TAB PO SCH (08:53)
[2018-11-04] MEDS: ASPIRIN 81 MG PO SCH (08:53)
[2018-11-04] MEDS: IBUPROFEN 800 MG TAB PO PRN ×3 (08:54→20:52)
[2018-11-04 08:57] VITALS: RESP 18
[2018-11-04] MEDS: SODIUM CHLORIDE 0.65% NASAL SPRAY 44 ML BTL NASAL PRN (08:58)
--- NOTE | 2018-11-04 10:30 | P.PN ---
Progress Note - Text Progress Note Date: 11/04/18 Interval History: Patient was seen in the hallways and was agreeable to speak to publications writer in the o ffice. And appears to have some breathing difficulties during the interview however when nursing staff took vitals patient was saturating 97% on room air and on physical exam did not have any wheezing or rhonchi on chest auscultation. Patient states that he is sleeping much better at this time and claims that his mood is gradually improving however he continues to be somatically preoccupied. Patient continues to express concern about his Keppra and how he would like to titrate off it. Patient denied any rashes that he's noticed on his skin and visual examination of the skin did not reveal any rashes that were notably present. Patient states that his anxiety is improving and his headaches have mildly improved as well as ibuprofen. Patient states that he would like to speak to a neurologist prior to his discharge about his headache medication and also his antiepileptic medication. Patient states that he's been going to group and trying to participate and has been walking around the unit without his walker. He states that he has appetite is good and his energy is fair. At this time patient denies any suicidal or homical ideations, intent or plan. Patient denies any auditory, visual hallucinations and denies any paranoia or delusions. Patient admits to being compliant with meds. Mental Status Exam: General Appearance: Patient appears to be stated age is alert, cooperative and directable. Patient's grooming and hygiene are mildly improved. Behavior: Patient is calmly seated without any agitated behavior. Speech: Patient's speech is fluent and nonpressured. Mood/Affect: Patient reports their mood is mildly improving, affect is congruent and constricted. Suicidality/Homicidality: Patient denies having any suicidal or homicidal ideation intent or plan. Perceptions: Patient denies any auditory or visual hallucinations. Somatically preoccupied Though content/process: There is no evidence of any delusional thought content and thought process is linear and goal-directed. Memory and concentration: AOX3, grossly intact for the purposes of this session Judgment and insight: Improving mildly IMPRESSIONS: major depressive disorder, moderate-severe. R/O bipolar depression. Anxiety disorder unspecified. Nicotine use disorder PLAN: -Patient continues to meet criteria for inpatient psychiatric hospitalization for safety. patient signed for medications and signed adult voluntary form, placed in the chart. -Medications : We'll continue 300 mg of Seroquel daily at bedtime for mood stabilization/irritability/insomnia. Continue with citalopram at 40 mg daily for mood. Will continue with Klonopin to 0.5 mg twice a day when necessary for anxiety. -As per neurology recommendation, we will continue with cross titration of Lamictal with Keppra. Continue with Lamictal to 50 mg daily +50 mg daily at bedtime with plan to titrate up to target dose and plan to titrate off Keppra as Keppra is likely contributing to increased in psychiatric symptoms. Keppra would likely need to be titrated off as an outpatient by his neurologist or primary care physician as this will take weeks to do. -we'll appreciate further recommendations by neurologist with regards to antiepileptic medication and chronic headaches. -Haldol PRN for agitation/aggression -NRT - nicotine patch. -SW on board for discharge planning. Patient has deferred a court and agreed to mandated outpatient treatment. When psychiatrically stable, patient to follow up with [facility] with appropriate home visits and contact. Patient to be connected with the ACT team for close outpatient monitoring due to patient being high risk for relapse of symptoms and noncompliance of medications.
[2018-11-04] MEDS: ACETAMINOPHEN TAB 325 MG TAB PO PRN ×2 (13:32→20:47)
--- NOTE | 2018-11-04 18:03 | P.PN ---
Subjective Progress Note Date: 11/04/18 Principal diagnosis: Seizure disorder Chronic headache h/o hemorrhagic CVA d/t HTN Dr. Muhammad in neurology saw patient on 10/24/18 and started patient on lamotrigine. Called by psychiatry to see patient again to adjust his AEDs and provide additional recs for headache management. He had sumatriptan in-house that did not do that. He is concerned about taking ibuprofen 800mg because of his h/o hemorrhagic CVA. He is scheduled to go home tomorrow. Remains on PHT 200mg po tid and LEV 750mg po tid. LTG is now 50mg po bid as he is on an enzyme- inducing AED, i.e. PHT. Objective - Vital Signs Vital signs: Vital Signs Temp 97.7 F 11/04/18 06:35 Pulse 77 11/04/18 10:00 Resp 18 11/04/18 10:00 BP 119/74 11/04/18 10:00 Pulse Ox 98 11/01/18 20:14 Intake & Output 11/03/18 11/04/18 11/04/18 18:59 06:59 18:59 Weight 79.7 kg - Exam Gen NAD Pleasant and cooperative MS A+Ox4 Normal speech CN Mild right UMN FD o/w remainder of II-XII grossly intact no nystagmus Motor Normal bulk/tone No tremors Strength 4+/5 right 5/5 left Sens Intact to LT x4 No neglect Coord No dysmetria on FTN bilaterally DTRs 2+/4 sym throughout Gait Deferred NIHSS 3 - Labs CBC & Chem 7: 10/24/18 13:10 10/27/18 08:26 Labs: 10/24/18. PHT 18.9 LEV 56.6 Assessment and Plan Assessment: Seizure disorder- AED titration in progress Chronic headache h/o hemorrhagic CVA Plan: -Agree with patient that he should shy away from strong NSAID given his h/o hemorrhagic CVA. Would also be careful with vasoconstrictor use such as triptan given his h/o HTN and hemorrhagic CVA -So, options a bit limited, but it is safe to start him on MgOx 400mg po qd that was studied in migraine prophylaxis with good level of evidence for efficacy -Decrease LEV to 500mg po tid -Continue LTG 50mg po bid with further titration as previously detailed in Dr. Muhammad's consult note on 10/24/18 -He will need to follow up outpatient for continued AED titration; goal would be for him to be on PHT/LTG together and LEV tapered off -d/w patient at length. All questions answered -No further inpatient neuro recs at this time. Patient is scheduled to be discharged tomorrow. Will revisit patient prn. Please call with new ?. Thank you again for this consultation. Time with Patient: Greater than 30 (Time spent in direct patient care, greater than 50% of which was spent in [id number] counseling and coordination of care: 35 minutes)
[2018-11-04] MEDS: MAGNESIUM OXIDE 400 MG TAB PO SCH (18:32)
[2018-11-04] MEDS: clonazePAM 0.5 MG TAB PO PRN (18:33)
[2018-11-04] MEDS: levETIRAcetam 500 MG TAB PO SCH (20:44)
[2018-11-04] MEDS: QUEtiapine 100 MG TAB PO SCH (20:45)
[2018-11-05 06:42] VITALS: BP 116/67; PULSE 69; TEMP 98
[2018-11-05] MEDS: NICOTINE 14MG/24HR PATCH TRANSDERM SCH (09:23)
[2018-11-05] MEDS: PHENYTOIN SODIUM EXTENDED 100 MG CAP PO SCH (09:23)
[2018-11-05] MEDS: ASPIRIN 81 MG PO SCH (09:23)
[2018-11-05] MEDS: amLODIPine 5 MG TAB PO SCH (09:23)
[2018-11-05] MEDS: CITALOPRAM HYDROBROMIDE 20 MG TAB PO SCH (09:24)
[2018-11-05] MEDS: HYDROCHLOROTHIAZIDE 25 MG TAB PO SCH (09:24)
[2018-11-05] MEDS: VALSARTAN 160 MG TAB PO SCH (09:24)
[2018-11-05] MEDS: levETIRAcetam 500 MG TAB PO SCH (09:24)
[2018-11-05] MEDS: CARVEDILOL 12.5 MG TAB PO SCH (09:24)
[2018-11-05] MEDS: MAGNESIUM OXIDE 400 MG TAB PO SCH (09:24)
[2018-11-05] MEDS: ATORVASTATIN 80 MG TAB PO SCH (09:24)
[2018-11-05] MEDS: lamoTRIgine 25 MG TAB PO SCH (09:25)
[2018-11-05] MEDS: IBUPROFEN 800 MG TAB PO PRN (09:26)
[2018-11-05] MEDS: clonazePAM 0.5 MG TAB PO PRN (09:26)
[2018-11-05] MEDS: ACETAMINOPHEN TAB 325 MG TAB PO PRN (09:30)
[2018-11-05] MEDS: BACLOFEN 10 MG TAB PO SCH (09:39)
--- NOTE | 2018-11-05 11:34 | P.DS ---
Providers Date of admission: 10/24/18 17:14 Expected date of discharge: 11/05/18 Attending physician: Yared Rodriguez MD Consults: 10/24/18 17:30 Consult Physician Routine Consulting Provider: Srikanth Ervin Consult Reason/Comments: H & P and medical care Do you want consulting provider notified?: Yes 10/25/18 14:53 Consult Physician Routine Consulting Provider: Leda Muhammad Consult Reason/Comments: CVA, R sided hemipar. Uncontrolled seizures. Change Keppra? Do you want consulting provider notified?: Yes 11/04/18 13:55 Consult Physician Routine Consulting Provider: Vish Samson Consult Reason/Comments: headaches and seizure meds Do you want consulting provider notified?: Yes Primary care physician: Srikanth Ervin - Discharge Diagnosis(es) (1) Major depress dis, severe Current Visit: Yes Status: Acute Priority: High (2) Nicotine dependence Current Visit: Yes Status: Acute Priority: Medium (3) Acute anxiety Current Visit: Yes Status: Acute Priority: High Hospital Course: Admission HPI: Patient is a 53-year-old malewith the chronic history of depression, and significant seizure disorder uncontrolled, who lives alone in an apartment, unmarried and currently collects Social Security. Patient presented to the hospital with complaints of having suicidal ideations which are increasing with no specific plan along with increasing depression and anxiety. patient was agreeable to be interviewed in the office today Destiny was somewhat directable. Patient appeared to have poor hygiene and poor grooming and appeared to have a depressed affect. He states that he has been going through a lot with his seizure history claiming that he often fears that he is could have seizure and state how painful they are when they do occur. He claims that he has had 2 in the past month and feels hopeless in trying to prevent him. Patient also claims that 2 years ago he suffered a stroke and lost the right side of his body's function. He claims that he went through rehab however has not been adjusting as well. Patient claims that he cannot walk properly without a walker and has become more irritable, agitated at times tearful and isolative since his strokes. Patient claims that he feels that he is a burden on everybody because he is hard to take care of. He states that his sleep is poor however his appetite is good. At this current time he denies any suicidal or homicidal ideations intent or plan. He denies any history or current manic symptoms. At this time patient denies any auditory or visual hallucinations. Patient denies any flight of ideas racing thoughts and increased in goal directed behavior. Patient denies the use of any other recreational drugs including marijuana and however admits to using a half a pack to 2 packs per day of smoking cigarettes. Hospital course: Upon admission to the unit patient was initially noted to have a depressed affect, poor mood and poor coping skills along with thoughts of wanting to end his life. Patient was agreeable to treatment and attempted to engage with it. Patient got along well with other patients on the unit and followed unit protocol. Patient was compliant with the medications overall however was somatically preoccupied, speaking of his poor ability to use his arms and legs, gait disturbance, headaches. Patient was started on his home medications Seroquel 300 mg daily at bedtime for insomnia and mood stabilization, Celexa 40 mg daily for mood and anxiety. Patient was also started on Lamictal and titrated up to 50 mg twice a day for mood stabilization and as an AED. It was discussed with patient that Keppra which she was on may have been contributing to his agitation/irritability/mood symptoms which he has been experiencing and it may be a good idea to be titrated off and switched for lamotrigine. Neurology consult was placed and neurologists recommended patient to have the switch in AEDs further titrated as an outpatient. Final recommendation was to have patient on Dilantin and lamotrigine only for seizures. Neurology also recommended avoiding NSAIDs and acetaminophen due to risk of hemorrhagic stroke in the patient. The recommendation was to proceed with magnesium oxide daily for headache prophylaxis. Patient gradually improved in terms of his gait and motor function and was walking without his walker on the unit. Patient spoke of his stressors and engaged in therapy both group and individual. Patient was also seen by medical team for history and physical exam. A outpatient court order was also generated by [facility] as patient was failing to follow up with his appointments and not taking his medications leaving him at high risk at home. Patient is now agreeable to a court order and to have the ACT team to make frequent contacts with them at home. Throughout the course of the hospitalization patient gradually improved with regards to mood, anxiety and sleep and became future oriented and hopeful for the future. On the day of discharge patient denied any suicidal or homicidal ideations intent or plan denied any auditory or visual hallucinations. Patient denied any paranoia and did not endorse any delusions. [Patient does not have a significant history of substance abuse however was counseled on abstaining from all substances incl uding alcohol and marijuana.] [Patient was also counseled on the medications and need for regular compliance and was encouraged to follow-up with their outpatient appointment for mental health and also for primary care.] Prior to discharge patient will meet with the ACT team to set up further care and management. Mental status exam: General Appearance: [Patient appears to be stated age is alert, pleasant, and cooperative. Patient is in no acute distress and has fair hygiene and grooming] Behavior: [Patient is calmly seated without any agitated behavior.] Speech: Patient's speech is fluent and nonpressured. Mood/Affect: Patient reports their mood is "good", affect is congruent and euthymic. Suicidality/Homicidality: Patient denies having any suicidal or homicidal ideation intent or plan. Perceptions: Patient denies any auditory or visual hallucinations. Though content/process: There is no evidence of any delusional thought content and thought process is linear and goal-directed. Memory and concentration: AOX3, grossly intact for the purposes of this session. Can spell "WORLD" backwards correctly. Judgment and insight: fair, improved Impression: Major depressive disorder, moderate-severe. Anxiety disorder unspecified. Nicotine use disorder Plan: -Continue with discharge today as patient has improved and stabilized psychiatrically and no longer remains an imminent threat to [himself] and/or others. -Continue medications: Seroquel 300 mg daily at bedtime for insomnia and mood stabilization. Celexa 40 mg daily for mood and anxiety. Continue with Lamictal 50 mg twice a day for mood stabilization and AED. The plan will be to continue titrating up gradually the Lamictal and continue the downward titration of Keppra for his seizure disorder. Patient to follow-up with his primary care doctor or neurologist to continue the cross titration. -Patient was counseled on the need for medication compliance and appropriate follow-up at mental health and also primary care for medical issues. Patient verbalized understanding and agreed. -An outpatient court order was also generated by [facility] as patient was failing to follow up with his appointments and not taking his medications leaving him at high risk at home. Patient is now agreeable to the court order and to have the ACT team to make frequent contacts with him at home. Patient to continue following up with [facility] for a psychiatric care. -Patient counseled on abstaining from recreational drugs and marijuana and alcohol. Was informed/educated on the adverse effects on their physical and mental health. -Patient was instructed to return to the hospital or seek immediate medical care if their psychiatric or medical systems do worsen or reoccur. Allergies Allergy/AdvReac Type Severity Reaction Status Date / Time No Known Allergies Allergy Verified 10/24/18 13:08 Laboratory Results WBC 7.7 k/uL (3.8-10.6) 10/24/18 13:10 RBC 5.08 m/uL (4.30-5.90) 10/24/18 13:10 Hgb 16.8 gm/dL (13.0-17.5) D 10/24/18 13:10 Hct 50.0 % (39.0-53.0) 10/24/18 13:10 MCV 98.5 fL (80.0-100.0) 10/24/18 13:10 MCH 33.2 pg (25.0-35.0) 10/24/18 13:10 MCHC 33.7 g/dL (31.0-37.0) 10/24/18 13:10 RDW 15.2 % (11.5-15.5) 10/24/18 13:10 Plt Count 237 k/uL (150-450) 10/24/18 13:10 Neutrophils % 72 % 10/24/18 13:10 Lymphocytes % 16 % 10/24/18 13:10 Monocytes % 7 % 10/24/18 13:10 Eosinophils % 3 % 10/24/18 13:10 Basophils % 1 % 10/24/18 13:10 Neutrophils # 5.5 k/uL (1.3-7.7) 10/24/18 13:10 Lymphocytes # 1.2 k/uL (1.0-4.8) 10/24/18 13:10 Monocytes # 0.6 k/uL (0-1.0) 10/24/18 13:10 Eosinophils # 0.2 k/uL (0-0.7) 10/24/18 13:10 Basophils # 0.1 k/uL (0-0.2) 10/24/18 13:10 Sodium 139 mmol/L (137-145) 10/27/18 08:26 Potassium 4.6 mmol/L (3.5-5.1) 10/27/18 08:26 Chloride 103 mmol/L (98-107) 10/27/18 08:26 Carbon Dioxide 25 mmol/L (22-30) 10/27/18 08:26 Anion Gap 11 mmol/L 10/27/18 08:26 BUN 33 mg/dL (9-20) H 10/27/18 08:26 Creatinine 1.07 mg/dL (0.66-1.25) 10/27/18 08:26 Est GFR (CKD-EPI)AfAm >90 (>60 ml/min/1.73 sqM) 10/27/18 08:26 Est GFR (CKD-EPI)NonAf 78 (>60 ml/min/1.73 sqM) 10/27/18 08:26 Glucose 139 mg/dL (74-99) H 10/27/18 08:26 Calcium 9.5 mg/dL (8.4-10.2) 10/27/18 08:26 Total Bilirubin 0.5 mg/dL (0.2-1.3) 10/24/18 13:10 AST 15 U/L (17-59) L 10/24/18 13:10 ALT 14 U/L (21-72) L 10/24/18 13:10 Alkaline Phosphatase 79 U/L (38-126) 10/24/18 13:10 Total Protein 7.6 g/dL (6.3-8.2) 10/24/18 13:10 Albumin 4.8 g/dL (3.5-5.0) 10/24/18 13:10 Urine Color Yellow 10/24/18 13:50 Urine Appearance Clear (Clear) 10/24/18 13:50 Urine pH 5.5 (5.0-8.0) 10/24/18 13:[address] 1.009 (1.001-1.035) 10/24/18 13:50 Urine Protein Negative (Negative) 10/24/18 13:50 Urine Glucose (UA) Negative (Negative) 10/24/18 13:50 Urine Ketones Negative (Negative) 10/24/18 13:50 Urine Blood Trace (Negative) H 10/24/18 13:50 Urine Nitrite Negative (Negative) 10/24/18 13:50 Urine Bilirubin Negative (Negative) 10/24/18 13:50 Urine Urobilinogen <2.0 mg/dL (<2.0) 10/24/18 13:50 Ur Leukocyte Esterase Negative (Negative) 10/24/18 13:50 Urine RBC 1 /hpf (0-5) 10/24/18 13:50 Urine Opiates Screen Not Detected (NotDetected) 10/24/18 13:50 Ur Oxycodone Screen Detected (NotDetected) H 10/24/18 13:50 Urine Methadone Screen Not Detected (NotDetected) 10/24/18 13:50 Ur Propoxyphene Screen Not Detected (NotDetected) 10/24/18 13:50 Ur Barbiturates Screen Detected (NotDetected) H 10/24/18 13:50 Phenytoin 18.9 ug/mL 10/24/18 13:10 U Tricyclic Antidepress Detected (NotDetected) H 10/24/18 13:50 Levetiracetam 56.6 ug/mL (3.0-60.0) 10/24/18 13:10 Ur Phencyclidine Scrn Not Detected (NotDetected) 10/24/18 13:50 Ur Amphetamines Screen Not Detected (NotDetected) 10/24/18 13:50 U Methamphetamines Scrn Not Detected (NotDetected) 10/24/18 13:50 U Benzodiazepines Scrn Detected (NotDetected) H 10/24/18 13:50 Urine Cocaine Screen Not Detected (NotDetected) 10/24/18 13:50 U Marijuana (THC) Screen Not Detected (NotDetected) 10/24/18 13:50 Vital Signs Temp 98 F 11/05/18 06:41 Pulse 69 11/05/18 06:41 Resp 18 11/05/18 06:41 BP 116/67 11/05/18 06:41 Pulse Ox 98 11/01/18 20:14 Patient Condition at Discharge: Stable Plan - Discharge Summary Discharge Rx Participant: No New Discharge Prescriptions: New Citalopram Hydrobromide [CeleXA] 40 mg PO DAILY #28 tab Nicotine 14Mg/24Hr Patch [Habitrol] 1 patch TRANSDERM DAILY #7 patch levETIRAcetam [Keppra] 500 mg PO TID #42 tab clonazePAM [KlonoPIN] 0.5 mg PO BID PRN tab PRN Reason: Anxiety lamoTRIgine [LaMICtal] 50 mg PO DAILY #56 tab Magnesium Oxide [Mag-Ox] 400 mg PO DAILY #28 tab Continue Carvedilol 25 mg PO BID #28 tablet Phenytoin Sodium Extended [Dilantin] 200 mg PO TID amLODIPine [Norvasc] 5 mg PO DAILY Baclofen [Lioresal] 10 mg PO TID Valsartan/Hydrochlorothiazide [Valsartan-Hctz 160-25 mg Tab] 1 tab PO DAILY Atorvastatin [Lipitor] 80 mg PO DAILY Aspirin [Adult Low Dose Aspirin EC] 81 mg PO DAILY QUEtiapine FUMARATE [SEROquel] 300 mg PO HS #28 tab Discontinued Citalopram Hydrobromide [CeleXA] 40 mg PO DAILY #14 tab levETIRAcetam [Keppra] 1,500 mg PO BID clonazePAM [KlonoPIN] 0.5 mg PO BID PRN PRN Reason: Anxiety Discharge Medication List Carvedilol 25 mg PO BID #28 tablet 09/27/18 [Rx] Aspirin [Adult Low Dose Aspirin EC] 81 mg PO DAILY 10/24/18 [History] Atorvastatin [Lipitor] 80 mg PO DAILY 10/24/18 [History] Baclofen [Lioresal] 10 mg PO TID 10/24/18 [History] Phenytoin Sodium Extended [Dilantin] 200 mg PO TID 10/24/18 [History] Valsartan/Hydrochlorothiazide [Valsartan-Hctz 160-25 mg Tab] 1 tab PO DAILY 10/24/18 [History] amLODIPine [Norvasc] 5 mg PO DAILY 10/24/18 [History] Citalopram Hydrobromide [CeleXA] 40 mg PO DAILY #28 tab 11/05/18 [Rx] Magnesium Oxide [Mag-Ox] 400 mg PO DAILY #28 tab 11/05/18 [Rx] Nicotine 14Mg/24Hr Patch [Habitrol] 1 patch TRANSDERM DAILY #7 patch 11/05/18 [Rx] QUEtiapine FUMARATE [SEROquel] 300 mg PO HS #28 tab 11/05/18 [Rx] clonazePAM [KlonoPIN] 0.5 mg PO BID PRN tab 11/05/18 [Rx] lamoTRIgine [LaMICtal] 50 mg PO DAILY #56 tab 11/05/18 [Rx] levETIRAcetam [Keppra] 500 mg PO TID #42 tab 11/05/18 [Rx] Follow up Appointment(s)/Referral(s): 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 No guns or weapons in the home. Refrain from any alcohol and drugs not prescribed by physician. Please take all medications as prescribed, and attend all after care appointments as scheduled. If in need of medication refills, please go to your primary care physician, or your out patient psychiatric provider. If in crisis, please go the nearest ER for evaluation, or call the crisis line at [phone]. Discharge Disposition: HOME WITH HOME HEALTH SERVICES
== END 2018-11-05 13:24 | disposition home or self-care (01) | DRG 885 ==
LOC: EC 12:15 → 3MHU 17:14
PROVIDERS: ADMIT Psychiatry & Neurology Psychiatry; ATTEND Psychiatry & Neurology Psychiatry
DX: F32.2 Major depressive disorder, single episode, severe without psychotic features (principal); R45.851 Suicidal ideations; G81.91 Hemiplegia, unspecified affecting right dominant side; G40.909 Epilepsy, unspecified, not intractable, without status epilepticus; F41.0 Panic disorder [episodic paroxysmal anxiety]; G47.00 Insomnia, unspecified; G43.909 Migraine, unspecified, not intractable, without status migrainosus; R40.2362 Coma scale, best motor response, obeys commands, at arrival to emergency department; R40.2142 Coma scale, eyes open, spontaneous, at arrival to emergency department; R40.2252 Coma scale, best verbal response, oriented, at arrival to emergency department; R10.9 Unspecified abdominal pain; I10 Essential (primary) hypertension; E78.5 Hyperlipidemia, unspecified; Z91.19 Patient's noncompliance with other medical treatment and regimen; F17.210 Nicotine dependence, cigarettes, uncomplicated; Z71.6 Tobacco abuse counseling; Z98.42 Cataract extraction status, left eye; Z79.82 Long term (current) use of aspirin; Z79.899 Other long term (current) drug therapy; Z91.5 Personal history of self-harm; Z87.820 Personal history of traumatic brain injury; Z98.890 Other specified postprocedural states; Z86.010 Personal history of colon polyps; Z98.41 Cataract extraction status, right eye; Z80.42 Family history of malignant neoplasm of prostate; Z82.49 Family history of ischemic heart disease and other diseases of the circulatory system; Z83.49 Family history of other endocrine, nutritional and metabolic diseases; Z82.61 Family history of arthritis; Z81.8 Family history of other mental and behavioral disorders
CPT/HCPCS: 36415; 70450; 80048; 80053; 80177; 80185; 80306; 81001; 82075; 85025; 99285

== ENCOUNTER 2018-11-19 22:03 | Observation (INO) | payer OTHER ==
[2018-11-19] MEDS ORDERED: NALOXONE 0.4 MG/ML 1 ML VIAL IV STA (22:53)
--- NOTE | 2018-11-19 23:00 | ED ---
Altered Mental Status HPI - General Chief Complaint: Altered Mental Status Stated Complaint: Altered Mental Time Seen by Provider: 11/19/18 22:24 Source: police, EMS Mode of arrival: EMS Limitations: no limitations - History of Present Illness Initial Comments: This patient is 53-year-old man who comes emergency Department be evaluated for mental status change. It is reported to me that the patient's neighbor found him in the patient's home, on the floor and inappropriate. He was speaking in the triage reportedly but when I see the patient, he is somnolent. He is not providing any history. MD Complaint: altered mental status -: unknown Severity: moderate Consistency of Symptoms: getting worse - Related Data Home Medications Medication Instructions Recorded Confirmed Aspirin [Adult Low Dose Aspirin EC] 81 mg PO DAILY 10/24/18 11/19/18 Atorvastatin [Lipitor] 80 mg PO DAILY 10/24/18 11/19/18 Baclofen [Lioresal] 10 mg PO TID 10/24/18 11/19/18 Phenytoin Sodium Extended 200 mg PO TID 10/24/18 11/19/18 [Dilantin] Valsartan/Hydrochlorothiazide 1 tab PO DAILY 10/24/18 11/19/18 [Valsartan-Hctz 160-25 mg Tab] amLODIPine [Norvasc] 5 mg PO DAILY 10/24/18 11/19/18 Previous Rx's Medication Instructions Recorded Carvedilol 25 mg PO BID #28 tablet 09/27/18 Citalopram Hydrobromide [CeleXA] 40 mg PO DAILY #28 tab 11/05/18 Magnesium Oxide [Mag-Ox] 400 mg PO DAILY #28 tab 11/05/18 Nicotine 14Mg/24Hr Patch [Habitrol] 1 patch TRANSDERM DAILY #7 patch 11/05/18 QUEtiapine FUMARATE [SEROquel] 300 mg PO HS #28 tab 11/05/18 clonazePAM [KlonoPIN] 0.5 mg PO BID PRN tab 11/05/18 lamoTRIgine [LaMICtal] 50 mg PO DAILY #56 tab 11/05/18 levETIRAcetam [Keppra] 500 mg PO TID #42 tab 11/05/18 Allergies Allergy/AdvReac Type Severity Reaction Status Date / Time No Known Allergies Allergy Verified 11/19/18 22:08 Review of Systems ROS Statement: Those systems with pertinent positive or pertinent negative responses have been documented in the HPI. ROS Other: All systems not noted in ROS Statement are negative. Limitations: ROS unobtainable due to patients medical condition (Patient not giving any verbal history.) Past Medical History Past Medical History: CVA/TIA, Hyperlipidemia, Seizure Disorder Additional Past Medical History / Comment(s): L intraparenchymal hemorrhage L lung pneumothorax , Migraine Headaches. Left sided hemorrhagic stroke approxi mately 3 years ago occurred because patient had stopped all meds including antihypertensives. Please note that this patient indescriminately uses narcotic medications for headaches that are given to him by other people or he purchase this I have spoken to him about these issues multiple times. And have asked him to make appointments to address these issues when they arise. I made myself available to him when he needs it History of Any Multi-Drug Resistant Organisms: None Reported Past Surgical History: No Surgical Hx Reported Additional Past Surgical History / Comment(s): COLONOSCOPY POLYPS REMOVED-NEG, bilateral cataract removal, R testicular surgery as a little boy. Past Anesthesia/Blood Transfusion Reactions: No Reported Reaction Additional Past Anesthesia/Blood Transfusion Reaction / Comment(s): Pt has never recieved blood. Past Psychological History: Anxiety, Bipolar, Depression, Panic Disorder Smoking Status: Current every day smoker Past Alcohol Use History: None Reported Past Drug Use History: None Reported - Past Family History Father Family Medical History: Cancer, Hyperlipidemia, Hypertension, Prostate Disorder Additional Family Medical History / Comment(s): PROSTATE CA Mother Family Medical History: Osteoarthritis (OA) Additional Family Medical History / Comment(s): MOM IS 71 General Exam Limitations: no limitations General appearance: obtunded Head exam: Present: atraumatic, normocephalic Eye exam: Present: normal appearance. Absent: scleral icterus, conjunctival injection Pupils: Present: miosis ENT exam: Present: mucous membranes dry, normal external ear exam Neck exam: Present: normal inspection, full ROM. Absent: tenderness, meningismus Respiratory exam: Present: normal lung sounds bilaterally. Absent: respiratory distress, wheezes, rales, rhonchi, stridor Cardiovascular Exam: Present: regular rate, normal rhythm, normal heart sounds. Absent: systolic murmur, diastolic murmur, rubs, gallop GI/Abdominal exam: Present: soft. Absent: tenderness, guarding, rebound, mass Extremities exam: Present: normal inspection, normal capillary refill. Absent: pedal edema, calf tenderness Back exam: Present: normal inspection. Absent: CVA tenderness (R), CVA tenderness (L) Neurological exam: Present: altered Skin exam: Present: warm, dry, intact, normal color. Absent: rash Course Vital Signs 11/19/18 11/19/18 11/20/18 22:06 23:15 01:00 Temperature 98 F Pulse Rate 74 55 L 62 Respiratory 16 15 15 Rate Blood Pressure 138/63 134/76 126/84 O2 Sat by Pulse 96 96 95 Oximetry 11/20/18 11/20/18 01:51 02:00 Temperature Pulse Rate 58 L Respiratory 14 16 Rate Blood Pressure 115/68 O2 Sat by Pulse 96 Oximetry Medical Decision Making - Lab Data Result diagrams: 11/19/18 23:35 11/19/18 23:35 Lab Results 11/19/18 11/19/18 11/19/18 Range/Units 23:35 23:35 23:35 WBC 11.4 H (3.8-10.6) k/uL RBC 4.15 L (4.30-5.90) m/uL Hgb 13.9 (13.0-17.5) gm/dL Hct 40.7 (39.0-53.0) % MCV 98.1 (80.0-100.0) fL MCH 33.6 (25.0-35.0) pg MCHC 34.3 (31.0-37.0) g/dL RDW 13.4 (11.5-15.5) % Plt Count 266 (150-450) k/uL Neutrophils % 77 % Lymphocytes % 14 % Monocytes % 6 % Eosinophils % 2 % Basophils % 1 % Neutrophils # 8.8 H (1.3-7.7) k/uL Lymphocytes # 1.5 (1.0-4.8) k/uL Monocytes # 0.7 (0-1.0) k/uL Eosinophils # 0.3 (0-0.7) k/uL Basophils # 0.1 (0-0.2) k/uL PT 10.0 (9.0-12.0) sec INR 0.9 (<1.2) APTT 22.4 (22.0-30.0) sec Sodium 139 (137-145) mmol/L Potassium 4.6 (3.5-5.1) mmol/L Chloride 106 (98-107) mmol/L Carbon Dioxide 26 (22-30) mmol/L Anion Gap 7 mmol/L BUN 25 H (9-20) mg/dL Creatinine 1.24 (0.66-1.25) mg/dL Est GFR (CKD-EPI)AfAm 76 (>60 ml/min/1.73 sqM) Est GFR (CKD-EPI)NonAf 65 (>60 ml/min/1.73 sqM) Glucose 124 H (74-99) mg/dL POC Glucose (mg/dL) (75-99) mg/dL POC Glu Brake Repairer Air ID Plasma Lactic Acid Shahbaz (0.7-2.0) mmol/L Calcium 8.3 L (8.4-10.2) mg/dL Total Bilirubin 0.5 (0.2-1.3) mg/dL AST 25 (17-59) U/L ALT 16 L (21-72) U/L Alkaline Phosphatase 61 (38-126) U/L Ammonia (<30) umol/L Troponin I (0.000-0.034) ng/mL Total Protein 6.2 L (6.3-8.2) g/dL Albumin 3.7 (3.5-5.0) g/dL Serum Alcohol <10 mg/dL 11/19/18 11/19/18 11/20/18 Range/Units 23:35 23:35 01:46 WBC (3.8-10.6) k/uL RBC (4.30-5.90) m/uL Hgb (13.0-17.5) gm/dL Hct (39.0-53.0) % MCV (80.0-100.0) fL MCH (25.0-35.0) pg MCHC (31.0-37.0) g/dL RDW (11.5-15.5) % Plt Count (150-450) k/uL Neutrophils % % Lymphocytes % % Monocytes % % Eosinophils % % Basophils % % Neutrophils # (1.3-7.7) k/uL Lymphocytes # (1.0-4.8) k/uL Monocytes # (0-1.0) k/uL Eosinophils # (0-0.7) k/uL Basophils # (0-0.2) k/uL PT (9.0-12.0) sec INR (<1.2) APTT (22.0-30.0) sec Sodium (137-145) mmol/L Potassium (3.5-5.1) mmol/L Chloride (98-107) mmol/L Carbon Dioxide (22-30) mmol/L Anion Gap mmol/L BUN (9-20) mg/dL Creatinine (0.66-1.25) mg/dL Est GFR (CKD-EPI)AfAm (>60 ml/min/1.73 sqM) Est GFR (CKD-EPI)NonAf (>60 ml/min/1.73 sqM) Glucose (74-99) mg/dL POC Glucose (mg/dL) 107 H (75-99) mg/dL POC Glu Brake Repairer Air ID Marce Gamboa Plasma Lactic Acid Shahbaz 1.4 (0.7-2.0) mmol/L Calcium (8.4-10.2) mg/dL Total Bilirubin (0.2-1.3) mg/dL AST (17-59) U/L ALT (21-72) U/L Alkaline Phosphatase (38-126) U/L Ammonia 22 (<30) umol/L Troponin I <0.012 (0.000-0.034) ng/mL Total Protein (6.3-8.2) g/dL Albumin (3.5-5.0) g/dL Serum Alcohol mg/dL - EKG Data -: EKG Interpreted by [facility] EKG shows normal: sinus rhythm, axis (Normal), intervals (VA interval is 222 ms, prolonged consistent with first-degree AV block. QRS duration 90 ms, normal. QTC 480 ms prolonged.), QRS complexes (Normal), ST-T waves (Normal) Rate: normal (Normal) Disposition Clinical Impression: Altered mental status Disposition: ADMITTED IP TO THIS HOSP Condition: Fair Referrals: Srikanth Ervin MD [Primary Care Provider] - 1-2 days
--- NOTE | 2018-11-19 23:50 | XR ---
EXAM: XR Chest, 1 View CLINICAL HISTORY: altered mental status TECHNIQUE: Frontal view of the chest. COMPARISON: 10/17/2018 FINDINGS: Lungs: Hypoventilatory lungs. No consolidation. Pleural space: Unremarkable. No pneumothorax. Heart: Stable cardiomediastinal silhouette. Mediastinum: See above. Bones/joints: No acute osseous abnormality. IMPRESSION: No acute cardiopulmonary process.
[2018-11-19 23:58] LABS: Basophils # (A) 0.1 k/uL (0-0.2); Basophils % (A) 1 %; Eosinophils # (A) 0.3 k/uL (0-0.7); Eosinophils % (A) 2 %; HCT 40.7 % (39.0-53.0); HGB 13.9 gm/dL (13.0-17.5); Lymphocytes # (A) 1.5 k/uL (1.0-4.8); Lymphocytes % (A) 14 %; MCH 33.6 pg (25.0-35.0); MCHC 34.3 g/dL (31.0-37.0); MCV 98.1 fL (80.0-100.0); Mean Platelet Volume 6.9; Monocytes # (A) 0.7 k/uL (0-1.0); Monocytes % (A) 6 %; Neutrophils # (A) 8.8 k/uL (1.3-7.7); Neutrophils % (A) 77 %; Platelet Count 266 k/uL (150-450); RBC 4.15 m/uL (4.30-5.90); RDW 13.4 % (11.5-15.5); WBC 11.4 k/uL (3.8-10.6)
[2018-11-20 00:11] LABS: Lactic Acid, Venous 1.4 mmol/L (0.7-2.0)
[2018-11-20 00:13] LABS: AST 25 U/L (17-59); African American GFR (CKD) 76 (>60 ml/min/1.73 sqM); Albumin 3.7 g/dL (3.5-5.0); Alcohol <10 mg/dL; Calcium 8.3 mg/dL (8.4-10.2); Carbon Dioxide 26 mmol/L (22-30); Glucose 124 mg/dL (74-99); Sodium 139 mmol/L (137-145)
--- NOTE | 2018-11-20 00:21 | CT ---
EXAM: CT Head Without Intravenous Contrast CLINICAL HISTORY: altered mental status TECHNIQUE: Axial computed tomography images of the head/brain without intravenous contrast. CTDI is 0.085, 0.085, 49.1 mGy and DLP is 1117.4 mGy-cm. This CT exam was performed using one or more of the following dose reduction techniques: automated exposure control, adjustment of the mA and/or kV according to patient size, and/or use of iterative reconstruction technique. COMPARISON: 11/01/2018 FINDINGS: Brain: No acute intracranial hemorrhage, acute cortical infarct, or significant mass effect. Small area of encephalomalacia in the left frontal lobe, similar to prior. Ventricles: Unremarkable. No ventriculomegaly. Bones/joints: Unremarkable. No acute fracture. Soft tissues: Unremarkable. Sinuses: Opacification of the left middle and posterior ethmoid air cells with high density material. Mastoid air cells: Unremarkable. IMPRESSION: No acute intracranial abnormality. Chronic left ethmoid sinus disease.
[2018-11-20] MEDS ORDERED: LORazepam 2 MG/ML INJ IM STA (00:24)
[2018-11-20 00:27] LABS: ALT 16 U/L (21-72); Alkaline Phosphatase 61 U/L (38-126); Anion Gap 7 mmol/L; Blood Urea Nitrogen 25 mg/dL (9-20); Chloride 106 mmol/L (98-107); Total Bilirubin 0.5 mg/dL (0.2-1.3); Total Protein 6.2 g/dL (6.3-8.2)
[2018-11-20 00:29] LABS: Potassium 4.6 mmol/L (3.5-5.1)
[2018-11-20 00:31] LABS: INR 0.9 (<1.2); Partial Thromboplastin Time 22.4 sec (22.0-30.0)
[2018-11-20 01:48] LABS: Glucose,Whole Blood 107 mg/dL (75-99)
[2018-11-20] MEDS ORDERED: NALOXONE 0.4 MG/ML 1 ML VIAL IV PRN (02:41)
[2018-11-20 03:28] LABS: Appearance,Urine Clear (Clear); Bilirubin,Urine Negative (Negative); Blood,Urine Moderate (Negative); Color,Urine Yellow; Glucose,Urine (UA) Negative (Negative); Hyaline Casts,Urine 7 /lpf (0-2); Ketones,Urine Negative (Negative); Leukocyte Esterase,Urine Negative (Negative); Mucus,Urine Rare /hpf; Nitrite,Urine Negative (Negative); Protein,Urine Negative (Negative); RBC,Urine 39 /hpf (0-5); Specific Gravity,Urine 1.017 (1.001-1.035); Squamous Epithelial Cell,Urine 1 /hpf (0-4); Transitional Epi Cells,Urine 1 /hpf (0-1); Urobilinogen,Urine <2.0 mg/dL (<2.0); WBC,Urine 2 /hpf (0-5)
[2018-11-20 03:31] LABS: Amphetamine Screen,Urine Not Detected (NotDetected); Barbiturate Screen,Urine Detected (NotDetected); Benzodiazepines Screen,Urine Detected (NotDetected); Cocaine Screen,Urine Not Detected (NotDetected); Methadone Screen, Urine Not Detected (NotDetected); Opiate Screen,Urine Not Detected (NotDetected); Oxycodone Screen, Urine Not Detected (NotDetected); Phencyclidine Screen,Urine Not Detected (NotDetected); Tricyclic Antidepressant,Urine Detected (NotDetected); Urn Cannabinoid Scrn Not Detected (NotDetected)
--- NOTE | 2018-11-20 04:13 | CT ---
EXAM: CT Lumbar Spine Without Intravenous Contrast CLINICAL HISTORY: Pain TECHNIQUE: Axial computed tomography images of the lumbar spine without intravenous contrast. CTDI is 0.085, 0.085, 29.8 mGy and DLP is 1226 mGy- cm. This CT exam was performed using one or more of the following dose reduction techniques: automated exposure control, adjustment of the mA and/or kV according to patient size, and/or use of iterative reconstruction technique. COMPARISON: 02/15/2014 FINDINGS: Artifacts: Motion. Vertebrae: No acute fracture or malalignment. Straightening of the normal lumbar lordosis. Small disc bulges, facet arthropathy, and thickening of the ligamentum flavum, in combination with developmental narrowing of the spinal canal, result in multilevel spinal stenosis which is worst/severe at L4-L5. Multilevel foraminal narrowing. Discs/spinal canal/neural foramina: Developmental narrowing of the spinal canal. Soft tissues: Unremarkable. Vasculature: Aortic atherosclerosis. Kidneys and ureters: Mild bilateral nonspecific perinephric stranding. No calcified renal calculi or hydronephrosis. IMPRESSION: Degenerative changes in combination with developmental narrowing of the spinal canal result in multilevel spinal and foraminal stenosis.
[2018-11-20] MEDS ORDERED: LORazepam 2 MG/ML INJ IV STA (07:52)
[2018-11-20] MEDS: SODIUM CHLORIDE 0.9% 1,000 ML IV SCH (08:01)
[2018-11-20] MEDS: CARVEDILOL 12.5 MG TAB PO SCH ×2 (08:02→16:41)
[2018-11-20] MEDS ORDERED: lamoTRIgine 25 MG TAB PO SCH (09:00)
[2018-11-20] MEDS: ASPIRIN 81 MG PO SCH (11:31)
[2018-11-20] MEDS: amLODIPine 5 MG TAB PO SCH (11:31)
[2018-11-20] MEDS: MAGNESIUM OXIDE 400 MG TAB PO SCH (11:32)
[2018-11-20] MEDS: ATORVASTATIN 80 MG TAB PO SCH (11:32)
[2018-11-20] MEDS: FAMOTIDINE 20 MG TAB PO SCH ×2 (11:32→22:43)
[2018-11-20] MEDS: HYDROCHLOROTHIAZIDE 25 MG TAB PO SCH (11:32)
[2018-11-20] MEDS: levETIRAcetam 500 MG TAB PO SCH ×3 (11:32→22:42)
[2018-11-20] MEDS: VALSARTAN 160 MG TAB PO SCH (11:33)
[2018-11-20] MEDS: PHENYTOIN SODIUM EXTENDED 100 MG CAP PO SCH ×3 (11:33→22:43)
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
[2018-11-20] MEDS ORDERED: LORazepam 2 MG/ML INJ IV PRN ×3 (16:31)
[2018-11-20] MEDS ORDERED: THIAMINE 100 MG/ML 2 ML VIAL IM STA (16:31)
--- NOTE | 2018-11-20 17:05 | P.PN ---
Progress Note - Text Progress Note Date: 11/20/18 We attempted to see the patient today at bedside. He declined a consultation for her spine surgery stated that he is really not having any significant pain in his back reveals legs. He was unsure why spine surgery was counseled for him. He does have some history of degenerative changes at his low back and lower extremity radicular symptoms for which he sees neurology on an outpatient basis. We will go ahead and cancel the consultation is patient declines.
[2018-11-20] MEDS ORDERED: QUEtiapine 100 MG TAB PO SCH (21:00)
[2018-11-20] MEDS: lamoTRIgine 25 MG TAB PO SCH (22:43)
[2018-11-21] MEDS: SODIUM CHLORIDE 0.9% 1,000 ML IV SCH ×4 (03:04→08:41)
[2018-11-21 05:08] VITALS: RESP 18
[2018-11-21] MEDS: ACETAMINOPHEN TAB 325 MG TAB PO PRN ×2 (05:15→10:54)
[2018-11-21 08:18] LABS: Basophils % (A) 1 %; Eosinophils # (A) 0.1 k/uL (0-0.7); Eosinophils % (A) 2 %; HCT 41.3 % (39.0-53.0); HGB 13.8 gm/dL (13.0-17.5); Lymphocytes # (A) 1.9 k/uL (1.0-4.8); Lymphocytes % (A) 26 %; MCHC 33.5 g/dL (31.0-37.0); MCV 98.4 fL (80.0-100.0); Mean Platelet Volume 7.2; Monocytes # (A) 0.5 k/uL (0-1.0); Monocytes % (A) 7 %; Neutrophils # (A) 4.5 k/uL (1.3-7.7); Neutrophils % (A) 63 %; Platelet Count 238 k/uL (150-450); RDW 13.3 % (11.5-15.5); WBC 7.1 k/uL (3.8-10.6)
[2018-11-21 08:29] LABS: African American GFR (CKD) >90 (>60 ml/min/1.73 sqM); Anion Gap 6 mmol/L; Blood Urea Nitrogen 17 mg/dL (9-20); Calcium 8.9 mg/dL (8.4-10.2); Carbon Dioxide 25 mmol/L (22-30); Chloride 109 mmol/L (98-107); Glucose 91 mg/dL (74-99); Potassium 4.1 mmol/L (3.5-5.1); Sodium 140 mmol/L (137-145)
[2018-11-21] MEDS: levETIRAcetam 500 MG TAB PO SCH (08:39)
[2018-11-21] MEDS: FAMOTIDINE 20 MG TAB PO SCH (08:39)
[2018-11-21] MEDS: THIAMINE 100 MG TAB PO SCH ×2 (08:39→17:37)
[2018-11-21] MEDS: MAGNESIUM OXIDE 400 MG TAB PO SCH (08:39)
[2018-11-21] MEDS: ATORVASTATIN 80 MG TAB PO SCH (08:39)
[2018-11-21] MEDS: CARVEDILOL 12.5 MG TAB PO SCH ×2 (08:39→17:37)
[2018-11-21] MEDS: ASPIRIN 81 MG PO SCH (08:39)
[2018-11-21] MEDS: amLODIPine 5 MG TAB PO SCH (08:39)
[2018-11-21] MEDS: lamoTRIgine 25 MG TAB PO SCH (08:40)
[2018-11-21] MEDS: HYDROCHLOROTHIAZIDE 25 MG TAB PO SCH (08:40)
[2018-11-21] MEDS: PHENYTOIN SODIUM EXTENDED 100 MG CAP PO SCH ×2 (08:40→16:15)
[2018-11-21] MEDS: VALSARTAN 160 MG TAB PO SCH (08:41)
--- NOTE | 2018-11-21 08:56 | P.PN ---
Progress Note - Text Progress Note Date: 11/21/18 SUBJECTIVE/INTERVAL EVENTS: No acute overnight events. Patient states that he slept very well overnight. Patient is not sure how he is taking his medications. I provided a sheet with the medication names, dose, frequency, which the patient will use to get help from his friend who helps with his pillbox. PHYSICAL EXAMINATION: VITAL SIGNS: Temperature 98.1 pulse rate 58 respiratory rate 18 blood pressure 123/80 O2 saturation 99% on room air GEN.: NAD, cooperative HEENT: NCAT, sclera without icterus NECK: Supple SKIN AND EXTREMITIES: Warm to touch, no edema NEURO: MENTAL STATUS: Patient alert and oriented to self, place, time. (yesterday, patient said 2018) Able to name the current president. Speech fluent, able to name and repeat, following all commands readily. CRANIAL NERVES II THROUGH XII: II: Pupils are equal and reactive to light symmetrically. No afferent pupillary defect. Visual callejas are intact. III, IV, : No ptosis. Extraocular movements full. No nystagmus. V: Facial sensation intact from V1-3. VII. mild right facial droop VIII: Hearing intact to finger rub bilaterally. IX, X: Symmetric palate elevation. XII: Shoulder shrug intact. XII: Tongue midline without fasciculation or atrophy. MOTOR: Normal bulk/tone. No pronator drift or tremor. Strength is 4+/5 in right upper and lower extremity. However, patient also gives poor effort when examining his right extremities. 5/5 in left upper and lower extremities. SENSORY: Intact to light touch, temperature, pinprick in all 4 extremities. REFLEXES: 2+ throughout. Toes are downgoing. COORDINATION: Finger to nose intact. No dysmetria. Slightly slow when using his right upper extremity. GAIT: Narrow-based with much caution DIAGNOSTIC TESTING: LABORATORY: WBC 11.4 hemoglobin 13.9 platelet 266 PT 10 INR 0.9 sodium 139 potassium 4.6 chloride 106 bicarb 26 BUN 25 creatinine 1.24 glucose 124 AST 25 ALT 16 and alk phos 61 troponin<0.012 urinalysis negative utox +barbiturate, benzo, TCA IMAGING: CT brain without contrast 10/17/2018: No acute process. 2 cm left encephalomalacia over the complexity be demonstrated without interval change ASSESSMENT: Mr. Jeronimo is a 53 year-old man with past medical history of hemorrhagic stroke 3 years ago (most likely secondary to HTN), hyperlipidemia, seizure disorder, migraines, depression, anxiety, multiple psychiatric admissions, presented to [facility] for [facility] ideation, consulting neurology for altered mental status. Patient has no recollection of the last 2-3 days. Unclear if patient is providing effort to actually remember those days. It is possible the patient had a seizure episode. RECOMMENDATIONS: 1. Continue with phenytoin 200 mg TID 2. Continue with Keppra 500mg BID. With increased dosing of lamotrigine in the future to at least 100 mg twice a day dosing, Keppra should be taken off. 3. Continue with lamotrigine dose to 50mg BID 4. Continue with lamotrigine with strict titration schedule this patient with multiple psychiatric conditions: - Week 1 and 2: 50 mg BID - Week 3 and beyond: 100 mg BID and follow up with outpatient Neurologist to continue titrating up on this medication. 5. Please educate patient about the importance of looking out for any rashes. If patient sees any rashes, patient is to go to urgent care or emergency room immediately. 6. Patient also needs to be followed up with psychiatry as outpatient 1-2 weeks after discharge as patient currently does not have an outpatient neurologist, and patient is to closely monitored with the new addition of lamotrigine. It appears that patient has seen the the sister Dr. Lai. Patient will prefer to be seen by the brother Dr. Lai. 7. Neurology will sign off
[2018-11-21 12:01] VITALS: BP 124/82; PULSE 74; TEMP 98.2
--- NOTE | 2018-11-21 14:34 | P.HPIM ---
Past Medical History Past Medical History: CVA/TIA, GERD/Reflux, Hyperlipidemia, Hypertension, Pneumonia, Seizure Disorder Additional Past Medical History / Comment(s): L hemorrhagic stroke-R sided weakness and has had occasions of increased irritability/agitation/isolation, multiple mental health unit admissions with most recent on 10/24/18 [facility] with major depression/suicidal ideations without plan/acute anxiety, uncontrolled seizures, L pneumothorax with chest tube, migraines-has used other people's narcotics in the past per past medical record but pt denies, chronic back and R hip pain, benign rectal polyp. History of Any Multi-Drug Resistant Organisms: None Reported Past Surgical History: No Surgical Hx Reported Additional Past Surgical History / Comment(s): COLONOSCOPY POLYPS REMOVED-NEG, bilateral cataract removal, R testicular surgery as a little boy. Past Anesthesia/Blood Transfusion Reactions: No Reported Reaction Additional Past Anesthesia/Blood Transfusion Reaction / Comment(s): Pt has never recieved blood. Smoking Status: Current every day smoker - Past Family History Father Family Medical History: Cancer, Hyperlipidemia, Hypertension, Prostate Disorder Additional Family Medical History / Comment(s): PROSTATE CA Mother Family Medical History: Osteoarthritis (OA) Additional Family Medical History / Comment(s): MOM IS 71 Medications and Allergies Home Medications Medication Instructions Recorded Confirmed Type Carvedilol 25 mg PO BID #28 tablet 09/27/18 11/19/18 Rx Aspirin [Adult Low Dose Aspirin EC] 81 mg PO DAILY 10/24/18 11/19/18 History Atorvastatin [Lipitor] 80 mg PO DAILY 10/24/18 11/19/18 History Baclofen [Lioresal] 10 mg PO TID 10/24/18 11/19/18 History Phenytoin Sodium Extended 200 mg PO TID 10/24/18 11/19/18 History [Dilantin] Valsartan/Hydrochlorothiazide 1 tab PO DAILY 10/24/18 11/19/18 History [Valsartan-Hctz 160-25 mg Tab] amLODIPine [Norvasc] 5 mg PO DAILY 10/24/18 11/19/18 History Citalopram Hydrobromide [CeleXA] 40 mg PO DAILY #28 tab 11/05/18 11/19/18 Rx Magnesium Oxide [Mag-Ox] 400 mg PO DAILY #28 tab 11/05/18 11/19/18 Rx Nicotine 14Mg/24Hr Patch [Habitrol] 1 patch TRANSDERM DAILY #7 patch 11/05/18 11/19/18 Rx QUEtiapine FUMARATE [SEROquel] 300 mg PO HS #28 tab 11/05/18 11/19/18 Rx clonazePAM [KlonoPIN] 0.5 mg PO BID PRN tab 11/05/18 11/19/18 Rx lamoTRIgine [LaMICtal] 50 mg PO DAILY #56 tab 11/05/18 11/19/18 Rx levETIRAcetam [Keppra] 500 mg PO TID #42 tab 11/05/18 11/19/18 Rx Allergies Allergy/AdvReac Type Severity Reaction Status Date / Time No Known Allergies Allergy Verified 11/19/18 22:08 Physical Exam Vitals: Vital Signs Temp Pulse Pulse Resp BP BP Pulse Ox 11/20/18 12:22 16 11/20/18 11:34 96.4 F L 71 15 154/105 97 11/20/18 10:32 98.6 F 90 16 139/90 98 11/20/18 08:00 97.6 F 67 17 124/91 98 11/20/18 02:00 58 L 16 115/68 96 11/20/18 01:51 14 11/20/18 01:00 62 15 126/84 95 11/19/18 23:15 55 L 15 134/76 96 11/19/18 22:06 98 F 74 16 138/63 96 Intake and Output 11/19/18 11/20/18 11/20/18 22:59 06:59 14:59 Output Total 200 Balance -200 Output: Urine 200 Straight 200 Other: Voiding Method Toilet Urinal Weight 77.111 kg Results CBC & Chem 7: 11/19/18 23:35 11/19/18 23:35 Labs: Abnormal Lab Results - Last 24 Hours (Table) 11/19/18 11/19/18 11/20/18 Range/Units 23:35 23:35 01:46 WBC 11.4 H (3.8-10.6) k/uL RBC 4.15 L (4.30-5.90) m/uL Neutrophils # 8.8 H (1.3-7.7) k/uL BUN 25 H (9-20) mg/dL Glucose 124 H (74-99) mg/dL POC Glucose (mg/dL) 107 H (75-99) mg/dL Calcium 8.3 L (8.4-10.2) mg/dL ALT 16 L (21-72) U/L Total Protein 6.2 L (6.3-8.2) g/dL Urine Blood (Negative) Urine RBC (0-5) /hpf Hyaline Casts (0-2) /lpf Urine Mucus (None) /hpf Ur Barbiturates Screen (NotDetected) U Tricyclic Antidepress (NotDetected) U Benzodiazepines Scrn (NotDetected) 11/20/18 11/20/18 Range/Units 02:53 02:53 WBC (3.8-10.6) k/uL RBC (4.30-5.90) m/uL Neutrophils # (1.3-7.7) k/uL BUN (9-20) mg/dL Glucose (74-99) mg/dL POC Glucose (mg/dL) (75-99) mg/dL Calcium (8.4-10.2) mg/dL ALT (21-72) U/L Total Protein (6.3-8.2) g/dL Urine Blood Moderate H (Negative) Urine RBC 39 H (0-5) /hpf Hyaline Casts 7 H (0-2) /lpf Urine Mucus Rare H (None) /hpf Ur Barbiturates Screen Detected H (NotDetected) U Tricyclic Antidepress Detected H (NotDetected) U Benzodiazepines Scrn Detected H (NotDetected) Thrombosis Risk Factor Assmnt - Choose All That Apply Any of the Below Risk Factors Present?: Yes Each Factor Represents 1 point: Age 41-60 years Other Risk Factors: No Other congenital or acquired thrombophilia - If yes, enter type in comment: No Thrombosis Risk Factor Assessment Total Risk Factor Score: 1 Thrombosis Risk Factor Assessment Level: Low Risk
--- NOTE | 2018-11-21 16:25 | P.CN ---
Psychiatric Consult - . Consult date: 11/21/18 Consult:: 11/21/18 16:15 IDENTIFYING DATA: This patient is a 83-year-old male with a history of depression and seizures and noncompliance with medications currently lives alone in an apartment unmarried HISTORY OF PRESENT ILLNESS: The patient was brought into the emergency room for altered mental status as one of his neighbors found him on the floor in his house. Patient was somnolent and appeared to have had a seizure at per report. Patient was recently discharged from the mental health unit last month for stay relating to depression and noncompliance. Psychiatry was consulted for site psychiatric evaluation for depression. Patient was seen by caption writer walking the hallways and was agreeable to speak in his room. Patient states that he is upset at [facility] for not giving him his proper medications and states that after he was discharged from mental health unit last month he was on a strict regimen to titrate up on his Lamictal and titrated off his Keppra and patient understands that this however he states that [facility] fail to deliver his medications and were not calling him back. Patient currently is on a court order for outpatient treatment which was started last month. She claims that "I'm firing everybody from [facility] and the act team". Patient claims that he would like to just follow up with his primary care doctor at this time for his medications. Patient denies any depression at this time denies any symptoms of florentino denies any anxiety. He states that his seizure could've been prevented if he was on his medications. At this time patient denies any suicidal or homical ideations, intent or plan. Patient denies any auditory, visual hallucinations and denies any paranoia or delusions. PAST PSYCHIATRIC HISTORY: Patient has a diagnosis of depression and is currently on Celexa 40 mg daily Seroquel 300 mg daily at bedtime and Klonopin 0.5 mg twice a day when necessary. Patient was recently discharged from the mental health unit at [facility] for depression last month. Patient denies any previous suicide attempts and states that he is not using any substances at this time.. PAST MEDICAL HISTORY: Seizures, hypertension, hyperlipidemia, previous history of stroke. ALLERGIES: No known drug allergies. CHEMICAL DEPENDENCY HISTORY: As per HPI. FAMILY PSYCHIATRIC/SUBSTANCE USE HISTORY: Denies. SOCIAL HISTORY: Patient currently lives in a apartment is currently single unemployed collecting Social Security. MENTAL STATUS EXAM: General Appearance: Patient appears to be stated age is alert, directable, and cooperative. Patient appeared to be in somewhat mild distress and was upset Behavior: Patient is calmly sitting in bed without any agitated behavior. Speech: Patient's speech is fluent and nonpressured. Mood/Affect: Patient reports their mood is "just fine", affect is congruent Suicidality/Homicidality: Patient denies having any suicidal or homicidal ideation intent or plan. Perceptions: Patient denies any auditory or visual hallucinations. Though content/process: There is no evidence of any delusional thought content and thought process is linear and goal-directed. He showed his accusational. Memory and concentration: AOX3, grossly intact for the purposes of this session. Can spell "WORLD" backwards Judgment and insight: Superficial IMPRESSIONS: Major depressive disorder, mild PLAN: -At this time patient patient does NOT meet criteria for inpatient psychiatric admission. -Would recommend the following medication changes/additions: Continue with the same medication regimen Celexa 40 mg daily for mood Seroquel 300 mg daily at bedtime for mood stabilization/insomnia Klonopin 0.5 mg twice a day when necessary for anxiety. -Patient understands and was well-informed by neurology and his other physicians of the cross titration schedule for increasing Lamictal from 50 mg twice a day up to possible dose of 200 mg daily for his seizures. Also to gradually titrated off Keppra as Keppra may be contributing to his psychiatric symptoms. - was seen by neurology who recommends patient have outpatient neurology follow-up. -Will inform [facility] liaison in the hospital as patient is currently on outpatient order which was started last month. At this time patient claims he is refusing to meet with anyone from [facility] including the ACT team. -Patient feels comfortable following up with his primary care physician for cross titration of his antiepileptic meds and refill of his medications. -Psychiatry will sign off at this point Thank you for the consult 11/21/18 16:22
--- NOTE | 2018-12-04 10:24 | P.DS ---
Providers Date of admission: 11/20/18 02:44 Expected date of discharge: 11/21/18 Attending physician: Srikanth Ervin Consults: 11/20/18 14:20 Consult Physician Routine Consulting Provider: Leda Muhammad Consult Reason/Comments: confusion Do you want consulting provider notified?: Yes 11/20/18 14:47 Consult Physician Routine Consulting Provider: Yared Rodriguez Consult Reason/Comments: possible overdose Do you want consulting provider notified?: Already Contacted Primary care physician: Srikanth Ervin Hospital Course: Final diagnoses -Altered mental status, possibly post ictal for recurrent breakthrough seizures in a patient with history of uncontrolled seizure disorder with recent medication changes in October 2018. -Depression, recently discharged from mental health unit -Bipolar, history of -History of hemorrhagic stroke with right-sided residual weakness -Gastroesophageal reflux disease -Hypertension Hospital course.This is a 53-year-old gentleman brought into the ER via EMS secondary to change in mental status, in a patient with history of hemorrhagic CVA with residual right-sided weakness, leg gastroesophageal reflux disease, hypertension, hyperlipidemia, uncontrolled seizure disorder-last med adjustments noted in October 2018, anxiety, bipolar, depression, scratch:-Recently discharged from mental health unit, panic disorder and multiple other medical issues. Patient was discovered by a neighbor, on the floor, crawling, inappropriate. Patient does not recall any events of the last couple of days. Denies nausea vomiting or diarrhea. Denies chest pain, palpitations or shortness of breath. Denies lightheadedness dizziness or focal deficits. Denies any seizure activity. Afebrile, WBC 11.4, creatinine 1.24, baseline 1. Brain CT, chest x- ray reporting nonacute. Lumbar spine reported multilevel spinal and foraminal stenosis worse at L4-L5. Toxicology screen detected barbiturates, tricyclics and benzodiazepines, serum alcohol less than 10. Troponin negative 1. EKG reporting normal sinus rhythm with first-degree AV block. Orthopedic surgery, neurology and psychiatry consulted. Significant clinical improvement. Patient will be discharged today in a stable condition with guarded prognosis pending evaluation, final DC recommendations and clearance from both neurology and psychiatry. EXAM: GENERAL: Alert and oriented 3, no acute distress CARDIOVASCULAR: S1, S2 regular.. No murmur RESPIRATION: Breath sounds diminished in the bases. No rhonchi or crackles. No bronchial breathing. ABDOMEN: Soft, nontender . No guarding. no masses palpable. Bowel sounds heard. NERVOUS SYSTEM: No focal deficits. The impression and plan of care has been dictated as directed. : I performed a history and examination of this patient, discussed the same with the dictator. I agree with the dictator's note ,documented as a scribe. Any additional findings or plans will be noted. Patient Condition at Discharge: Stable Plan - Discharge Summary Discharge Rx Participant: No New Discharge Prescriptions: New lamoTRIgine [LaMICtal] See Taper PO BID 30 Days #168 tab levETIRAcetam [Keppra] 500 mg PO BID tab Famotidine [Pepcid] 20 mg PO BID #60 tab Continue Carvedilol 25 mg PO BID #28 tablet Phenytoin Sodium Extended [Dilantin] 200 mg PO TID amLODIPine [Norvasc] 5 mg PO DAILY Baclofen [Lioresal] 10 mg PO TID Valsartan/Hydrochlorothiazide [Valsartan-Hctz 160-25 mg Tab] 1 tab PO DAILY Atorvastatin [Lipitor] 80 mg PO DAILY Aspirin [Adult Low Dose Aspirin EC] 81 mg PO DAILY Citalopram Hydrobromide [CeleXA] 40 mg PO DAILY #28 tab Nicotine 14Mg/24Hr Patch [Habitrol] 1 patch TRANSDERM DAILY #7 patch clonazePAM [KlonoPIN] 0.5 mg PO BID PRN tab PRN Reason: Anxiety Magnesium Oxide [Mag-Ox] 400 mg PO DAILY #28 tab QUEtiapine FUMARATE [SEROquel] 300 mg PO HS #28 tab Discontinued levETIRAcetam [Keppra] 500 mg PO TID #42 tab lamoTRIgine [LaMICtal] 50 mg PO DAILY #56 tab Discharge Medication List Carvedilol 25 mg PO BID #28 tablet 09/27/18 [Rx] Aspirin [Adult Low Dose Aspirin EC] 81 mg PO DAILY 10/24/18 [History] Atorvastatin [Lipitor] 80 mg PO DAILY 10/24/18 [History] Baclofen [Lioresal] 10 mg PO TID 10/24/18 [History] Phenytoin Sodium Extended [Dilantin] 200 mg PO TID 10/24/18 [History] Valsartan/Hydrochlorothiazide [Valsartan-Hctz 160-25 mg Tab] 1 tab PO DAILY 10/24/18 [History] amLODIPine [Norvasc] 5 mg PO DAILY 10/24/18 [History] Citalopram Hydrobromide [CeleXA] 40 mg PO DAILY #28 tab 11/05/18 [Rx] Magnesium Oxide [Mag-Ox] 400 mg PO DAILY #28 tab 11/05/18 [Rx] Nicotine 14Mg/24Hr Patch [Habitrol] 1 patch TRANSDERM DAILY #7 patch 11/05/18 [Rx] QUEtiapine FUMARATE [SEROquel] 300 mg PO HS #28 tab 11/05/18 [Rx] clonazePAM [KlonoPIN] 0.5 mg PO BID PRN tab 11/05/18 [Rx] Famotidine [Pepcid] 20 mg PO BID #60 tab 11/21/18 [Rx] lamoTRIgine [LaMICtal] See Taper PO BID 30 Days #168 tab 11/21/18 [Rx] levETIRAcetam [Keppra] 500 mg PO BID tab 11/21/18 [Rx] Follow up Appointment(s)/Referral(s): RASHAWN, psychiatry [Other] - 1 Week (Patient to call and make own appt. [facility] unwilling to make appt. stating HIPPA compliance was an issue. ) Merissa Lai MD [STAFF PHYSICIAN] - 12/09/18 2:00 pm Srikanth Ervin MD [Primary Care Provider] - 11/25/18 2:30 pm Patient Instructions/Handouts: Famotidine (By mouth), Lamotrigine (By mouth) Activity/Diet/Wound Care/Special Instructions: Per Dr. Muhammad inpatient neurologist RECOMMENDATIONS: 1. Continue with phenytoin 200 mg TID 2. Continue with Keppra 500mg BID. With increased dosing of lamotrigine in the future to at least 100 mg twice a day dosing, Keppra should be taken off. 3. Continue with lamotrigine dose to 50mg BID 4. Continue with lamotrigine with strict titration schedule this patient with multiple psychiatric conditions: - Week 1 and 2: 50 mg BID - Week 3 and beyond: 100 mg BID and follow up with outpatient Neurologist to co ntinue titrating up on this medication. 5. Please educate patient about the importance of looking out for any rashes. If patient sees any rashes, patient is to go to urgent care or emergency room i mmediately. 6. Patient also needs to be followed up with psychiatry as outpatient 1-2 weeks after discharge as patient currently does not have an outpatient neurologist, and patient is to closely monitored with the new addition of lamotrigine. It appears that patient has seen the the sister Dr. Lai. Patient will prefer to be seen by the brother Dr. Lai. Discharge Disposition: HOME SELF-CARE
== END 2018-11-21 18:00 | disposition home or self-care (01) ==
LOC: EC 22:03 → 3NMEDONC 11-20 02:43 → OBSVTOIN 11-20 02:44 → INTOOBSV 11-20 02:44 → 4MS4W 11-20 06:16 → 3NMEDONC 11-20 06:58 → UNDODISIN 11-21 18:00
PROVIDERS: ADMIT Family Medicine; ATTEND Family Medicine
DX: R41.82 Altered mental status, unspecified (principal); G40.909 Epilepsy, unspecified, not intractable, without status epilepticus; I69.351 Hemiplegia and hemiparesis following cerebral infarction affecting right dominant side; R45.851 Suicidal ideations; I44.0 Atrioventricular block, first degree; F17.200 Nicotine dependence, unspecified, uncomplicated; K21.9 Gastro-esophageal reflux disease without esophagitis; M48.061 Spinal stenosis, lumbar region without neurogenic claudication; E78.5 Hyperlipidemia, unspecified; F31.9 Bipolar disorder, unspecified; F41.0 Panic disorder [episodic paroxysmal anxiety]; I10 Essential (primary) hypertension; Z87.820 Personal history of traumatic brain injury; Z79.82 Long term (current) use of aspirin; Z79.899 Other long term (current) drug therapy; Z80.42 Family history of malignant neoplasm of prostate; Z82.49 Family history of ischemic heart disease and other diseases of the circulatory system; Z82.61 Family history of arthritis; Z87.01 Personal history of pneumonia (recurrent); G43.909 Migraine, unspecified, not intractable, without status migrainosus; G89.29 Other chronic pain; M25.551 Pain in right hip; Z91.14 Patient's other noncompliance with medication regimen; Z60.2 Problems related to living alone; R45.1 Restlessness and agitation; Z87.19 Personal history of other diseases of the digestive system
CPT/HCPCS: 96376 ×2; 96361 ×3; 51701; 96374; 96375; 99285; 36415 ×2; 93005; 80053; 80048; 82140; 83605; 84484; 85025 ×2; 85610; 85730; 81001; 80306; 71045; 72131; 70450; G0378 ×2; G0480; J2060 ×2; J2310; 80320

== ENCOUNTER → 2019-04-15 | Outpatient (CLI) | payer OTHER ==
[2019-04-15 17:38] LABS: Phenytoin (Dilantin) 7.2 ug/mL (10.0-20.0)
[2019-04-15 18:12] LABS: ALT 15 U/L (10-49); AST 15 U/L (14-35); Albumin/Globulin Ratio 2.75 (1.60-3.17); Alkaline Phosphatase 100 U/L (41-126); Bilirubin, Conjugated <0.20 mg/dL (0.20-0.40); Globulin 1.6 g/dL (1.6-3.3); Total Bilirubin 0.2 mg/dL (0.2-1.2)
== END | disposition home or self-care (01) ==
LOC: LABWHC1 09:16
PROVIDERS: ATTEND Psychiatry & Neurology Neurology
DX: I10 Essential (primary) hypertension (principal); F41.1 Generalized anxiety disorder; G40.109 Localization-related (focal) (partial) symptomatic epilepsy and epileptic syndromes with simple partial seizures, not intractable, without status epilepticus; Z86.73 Personal history of transient ischemic attack (TIA), and cerebral infarction without residual deficits
CPT/HCPCS: 36415; 80076; 80175; 80185

== ENCOUNTER → 2019-05-13 | Outpatient (CLI) | payer OTHER | END | disposition home or self-care (01) | LOC: LABWHC1 15:07 | PROVIDERS: ATTEND Psychiatry & Neurology Neurology | DX: Z09 Encounter for follow-up examination after completed treatment for conditions other than malignant neoplasm (principal); Z86.73 Personal history of transient ischemic attack (TIA), and cerebral infarction without residual deficits | CPT/HCPCS: 36415; 80175; 80185 ==

== ENCOUNTER → 2019-05-28 | Outpatient (CLI) | payer OTHER | END | disposition home or self-care (01) | LOC: LABWHC1 14:45 | PROVIDERS: ATTEND Psychiatry & Neurology Neurology | DX: G40.209 Localization-related (focal) (partial) symptomatic epilepsy and epileptic syndromes with complex partial seizures, not intractable, without status epilepticus (principal) | CPT/HCPCS: 36415; 80175; 80185 ==

== ENCOUNTER → 2019-10-08 | Outpatient (CLI) | payer OTHER ==
[2019-10-08 21:18] LABS: Phenytoin (Dilantin) 3.5 ug/mL (10.0-20.0)
== END | disposition home or self-care (01) ==
LOC: LABWHC1 13:17
PROVIDERS: ATTEND Psychiatry & Neurology Neurology
DX: G40.209 Localization-related (focal) (partial) symptomatic epilepsy and epileptic syndromes with complex partial seizures, not intractable, without status epilepticus (principal)
CPT/HCPCS: 36415; 80175; 80185; 84450; 84460

== ENCOUNTER 2019-12-24 19:11 | Observation (INO) | payer OTHER ==
[2019-12-24] MEDS ORDERED: DIAZEPAM 5 MG/ML 2 ML INJ IVP STA (19:56)
[2019-12-24] MEDS ORDERED: PHENYTOIN SODIUM INJ 1,000 MG in SODIUM CHLORIDE 0.9% 100 ML IVPB STA (19:56)
[2019-12-24] MEDS ORDERED: SODIUM CHLORIDE 0.9% 500 ML 500 ML IV STA (19:56)
[2019-12-24] MEDS ORDERED: SODIUM CHLORIDE 0.9% 1,000 ML IV STA ×2 (19:56)
--- NOTE | 2019-12-24 19:57 | ED ---
Seizure HPI - General Chief Complaint: Seizure Stated Complaint: Seizure Time Seen by Provider: 12/24/19 19:54 Source: patient, EMS, RN notes reviewed, old records reviewed Mode of arrival: EMS Limitations: no limitations - History of Present Illness Initial Comments: This is a 54-year-old male DF for evaluation postictal for a prolonged seizure. Patient is a 10 Minute Seizure Prior to Arrival Has Been off His Seizure Medications for about a Week Now. Patient States He Was Unable to Get in and See His Neurologist Prior to This Decision and He Went to Get His Medications at [facility] They Do Not Have His Medications. Patient Is Been off His Medications Again for about a Week Emesis for Seizures since MD Complaint: seizure -: minutes(s) Description of Episode: loss of consciousness, tonic-clonic movement, post-event confusion -: minutes(s) Witnessed: yes - by bystander Trauma: No Seizure History: known seizure disorder, history of withdrawal seizures Place: home Possible Precipitating Event: none Associated Symptoms: denies other symptoms Treatments Prior to Arrival: none - Related Data Home Medications Medication Instructions Recorded Confirmed Aspirin [Adult Low Dose Aspirin EC] 81 mg PO DAILY 10/24/18 12/24/19 Atorvastatin [Lipitor] 80 mg PO HS 10/24/18 12/24/19 Baclofen [Lioresal] 10 mg PO TID 10/24/18 12/24/19 amLODIPine [Norvasc] 5 mg PO DAILY 10/24/18 12/24/19 Tamsulosin HCl [Flomax] 0.4 mg PO DAILY 12/24/19 12/24/19 Valsartan 160 mg PO DAILY 12/24/19 12/24/19 hydroCHLOROthiazide [Hydrodiuril] 25 mg PO DAILY 12/24/19 12/24/19 Previous Rx's Medication Instructions Recorded carvediloL [Carvedilol] 25 mg PO BID #28 tablet 09/27/18 Citalopram Hydrobromide [CeleXA] 40 mg PO DAILY #28 tab 11/05/18 Magnesium Oxide [Mag-Ox] 400 mg PO DAILY #28 tab 11/05/18 QUEtiapine FUMARATE [SEROquel] 300 mg PO HS #28 tab 11/05/18 clonazePAM [KlonoPIN] 0.5 mg PO BID PRN tab 11/05/18 Famotidine [Pepcid] 20 mg PO BID #60 tab 11/21/18 Allergies Allergy/AdvReac Type Severity Reaction Status Date / Time No Known Allergies Allergy Verified 11/19/18 22:08 Review of Systems ROS Statement: Those systems with pertinent positive or pertinent negative responses have been documented in the HPI. ROS Other: All systems not noted in ROS Statement are negative. Past Medical History Past Medical History: CVA/TIA, GERD/Reflux, Hyperlipidemia, Hypertension, Pneumonia, Seizure Disorder Additional Past Medical History / Comment(s): L hemorrhagic stroke-R sided weakness and has had occasions of increased irritability/agitation/isolation, multiple mental health unit admissions with most recent on 10/24/18 [facility] with major depression/suicidal ideations without plan/acute anxiety, uncontrolled seizures, L pneumothorax with chest tube, migraines-has used other people's narcotics in the past per past medical record but pt denies, chronic back and R hip pain, benign rectal polyp. History of Any Multi-Drug Resistant Organisms: None Reported Past Surgical History: No Surgical Hx Reported Additional Past Surgical History / Comment(s): COLONOSCOPY POLYPS REMOVED-NEG, bilateral cataract removal, R testicular surgery as a little boy. Past Anesthesia/Blood Transfusion Reactions: No Reported Reaction Additional Past Anesthesia/Blood Transfusion Reaction / Comment(s): Pt has never recieved blood. Past Psychological History: Anxiety, Bipolar, Depression, Panic Disorder Past Alcohol Use History: None Reported Past Drug Use History: None Reported - Past Family History Father Family Medical History: Cancer, Hyperlipidemia, Hypertension, Prostate Disorder Additional Family Medical History / Comment(s): PROSTATE CA Mother Family Medical History: Osteoarthritis (OA) Additional Family Medical History / Comment(s): MOM IS 71 General Exam Limitations: no limitations General appearance: alert, in no apparent distress, anxious Head exam: Present: atraumatic, normocephalic, normal inspection Eye exam: Present: normal appearance, PERRL, EOMI. Absent: scleral icterus, conjunctival injection, periorbital swelling ENT exam: Present: normal exam, mucous membranes moist Neck exam: Present: normal inspection. Absent: tenderness, meningismus, lymphadenopathy Respiratory exam: Present: normal lung sounds bilaterally. Absent: respiratory distress, wheezes, rales, rhonchi, stridor Cardiovascular Exam: Present: regular rate, normal rhythm, normal heart sounds. Absent: systolic murmur, diastolic murmur, rubs, gallop, clicks GI/Abdominal exam: Present: soft, normal bowel sounds. Absent: distended, tenderness, guarding, rebound, rigid Extremities exam: Present: normal inspection, full ROM, normal capillary refill. Absent: tenderness, pedal edema, joint swelling, calf tenderness Back exam: Present: normal inspection Neurological exam: Present: alert, oriented X3, CN II-XII intact Psychiatric exam: Present: normal affect, normal mood Skin exam: Present: warm, dry, intact, normal color. Absent: rash Course Vital Signs 12/24/19 19:19 Temperature 98.7 F Pulse Rate 84 Respiratory 16 Rate Blood Pressure 99/68 O2 Sat by Pulse 95 Oximetry - Reevaluation(s) Reevaluation #1: 12/24/19 21:14 Medical records reviewed Reevaluation #2: 12/24/19 21:14 Patient has no recurrent seizure here in the ER Medical Decision Making - Medical Decision Making 54 male DEL with seizure disorder recurrent seizures. For medication ad ministration and monitoring. Patient is off all medications as he was unable to get them filled - Lab Data Result diagrams: 12/24/19 20:11 12/24/19 20:11 Lab Results 12/24/19 12/24/19 Range/Units 20:11 20:11 WBC 7.5 (3.8-10.6) k/uL RBC 4.30 (4.30-5.90) m/uL Hgb 13.7 (13.0-17.5) gm/dL Hct 41.8 (39.0-53.0) % MCV 97.2 (80.0-100.0) fL MCH 31.9 (25.0-35.0) pg MCHC 32.8 (31.0-37.0) g/dL RDW 12.6 (11.5-15.5) % Plt Count 232 (150-450) k/uL Neutrophils % 79 % Lymphocytes % 11 % Monocytes % 7 % Eosinophils % 2 % Basophils % 1 % Neutrophils # 5.9 (1.3-7.7) k/uL Lymphocytes # 0.8 L (1.0-4.8) k/uL Monocytes # 0.5 (0-1.0) k/uL Eosinophils # 0.1 (0-0.7) k/uL Basophils # 0.0 (0-0.2) k/uL Sodium 135 L (137-145) mmol/L Potassium 4.2 (3.5-5.1) mmol/L Chloride 104 (98-107) mmol/L Carbon Dioxide 15 L (22-30) mmol/L Anion Gap 16 mmol/L BUN 15 (9-20) mg/dL Creatinine 1.32 H (0.66-1.25) mg/dL Est GFR (CKD-EPI)AfAm 70 (>60 ml/min/1.73 sqM) Est GFR (CKD-EPI)NonAf 60 (>60 ml/min/1.73 sqM) Glucose 91 (74-99) mg/dL Calcium 9.4 (8.4-10.2) mg/dL Phosphorus 3.1 (2.5-4.5) mg/dL Magnesium 2.4 H (1.6-2.3) mg/dL Total Bilirubin 0.4 (0.2-1.3) mg/dL AST 28 (17-59) U/L ALT 19 (4-49) U/L Alkaline Phosphatase 62 (38-126) U/L Total Protein 6.7 (6.3-8.2) g/dL Albumin 4.3 (3.5-5.0) g/dL Salicylates <1.0 mg/dL Acetaminophen <10.0 ug/mL Phenytoin <3.0 ug/mL Serum Alcohol <10 mg/dL - EKG Data -: EKG Interpreted by Me (EKG shows sinus rhythm 65 WA 204 QRS 82 QTc 474) Disposition Clinical Impression: Epileptic seizure, generalized, Intractable seizure disorder, Nausea and vomiting, Dehydration Disposition: ADMITTED IP TO THIS HOSP Condition: Fair Is patient prescribed a controlled substance at d/c from ED?: No Referrals: Derrick Fisher Jr, [Primary Care Provider] - 1-2 days
[2019-12-24 20:21] LABS: Basophils % (A) 1 %; Eosinophils # (A) 0.1 k/uL (0-0.7); Eosinophils % (A) 2 %; HCT 41.8 % (39.0-53.0); HGB 13.7 gm/dL (13.0-17.5); Lymphocytes # (A) 0.8 k/uL (1.0-4.8); Lymphocytes % (A) 11 %; MCH 31.9 pg (25.0-35.0); MCHC 32.8 g/dL (31.0-37.0); MCV 97.2 fL (80.0-100.0); Mean Platelet Volume 8.4; Monocytes # (A) 0.5 k/uL (0-1.0); Monocytes % (A) 7 %; Neutrophils # (A) 5.9 k/uL (1.3-7.7); Neutrophils % (A) 79 %; Platelet Count 232 k/uL (150-450); RDW 12.6 % (11.5-15.5); WBC 7.5 k/uL (3.8-10.6)
[2019-12-24 20:31] LABS: AST 28 U/L (17-59); Acetaminophen <10.0 ug/mL; African American GFR (CKD) 70 (>60 ml/min/1.73 sqM); Albumin 4.3 g/dL (3.5-5.0); Alcohol <10 mg/dL; Alkaline Phosphatase 62 U/L (38-126); Anion Gap 16 mmol/L; Blood Urea Nitrogen 15 mg/dL (9-20); Calcium 9.4 mg/dL (8.4-10.2); Carbon Dioxide 15 mmol/L (22-30); Chloride 104 mmol/L (98-107); Glucose 91 mg/dL (74-99); Magnesium 2.4 mg/dL (1.6-2.3); Non-African American GFR(CKD) 60 (>60 ml/min/1.73 sqM); Phenytoin (Dilantin) <3.0 ug/mL; Phosphorus 3.1 mg/dL (2.5-4.5); Potassium 4.2 mmol/L (3.5-5.1); Salicylate <1.0 mg/dL; Sodium 135 mmol/L (137-145); Total Bilirubin 0.4 mg/dL (0.2-1.3); Total Protein 6.7 g/dL (6.3-8.2)
[2019-12-24 20:35] LABS: ALT 19 U/L (4-49)
[2019-12-24] MEDS ORDERED: SODIUM CHLORIDE 0.9% 1,000 ML IV ONE (21:10)
[2019-12-24] MEDS ORDERED: LORazepam 2 MG/ML INJ IV PRN ×4 (21:10→21:15)
[2019-12-24] MEDS ORDERED: LORazepam 2 MG/ML INJ IV STA (21:10)
[2019-12-24] MEDS ORDERED: THIAMINE 100 MG/ML 2 ML VIAL IM STA (21:15)
[2019-12-24] MEDS: THIAMINE 100 MG TAB PO SCH (21:21)
[2019-12-24 22:10] LABS: Amphetamine Screen,Urine Not Detected (NotDetected); Barbiturate Screen,Urine Detected (NotDetected); Benzodiazepines Screen,Urine Not Detected (NotDetected); Cocaine Screen,Urine Not Detected (NotDetected); Methadone Screen, Urine Not Detected (NotDetected); Opiate Screen,Urine Not Detected (NotDetected); Oxycodone Screen, Urine Not Detected (NotDetected); Phencyclidine Screen,Urine Not Detected (NotDetected); Tricyclic Antidepressant,Urine Detected (NotDetected); Urn Cannabinoid Scrn Not Detected (NotDetected)
[2019-12-25] MEDS ORDERED: clonazePAM 0.5 MG TAB PO PRN (00:16)
[2019-12-25] MEDS ORDERED: QUEtiapine 100 MG TAB PO SCH (00:30)
[2019-12-25] MEDS: BACLOFEN 10 MG TAB PO SCH ×2 (07:38→17:23)
[2019-12-25] MEDS: THIAMINE 100 MG TAB PO SCH ×2 (07:38→17:23)
[2019-12-25] MEDS: carvediloL 12.5 MG TAB PO SCH ×2 (07:38→17:25)
[2019-12-25] MEDS ORDERED: amLODIPine 5 MG TAB PO SCH (09:00)
[2019-12-25] MEDS ORDERED: ASPIRIN 81 MG PO SCH (09:00)
[2019-12-25] MEDS ORDERED: CITALOPRAM HYDROBROMIDE 20 MG TAB PO SCH (09:00)
[2019-12-25] MEDS ORDERED: FAMOTIDINE 20 MG TAB PO SCH (09:00)
[2019-12-25] MEDS ORDERED: VALSARTAN 160 MG TAB PO SCH (09:00)
[2019-12-25] MEDS ORDERED: TAMSULOSIN 0.4 MG CAP.ER.24H PO SCH (09:00)
[2019-12-25] MEDS ORDERED: MAGNESIUM OXIDE 400 MG TAB PO SCH (09:00)
[2019-12-25] MEDS ORDERED: hydroCHLOROthiazide 25 MG TAB PO SCH (09:00)
[2019-12-25 12:12] VITALS: TEMP 98.7
--- NOTE | 2019-12-25 13:53 | P.HPIM ---
History of Present Illness H&P Date: 12/25/19 Chief Complaint: Seizure Rboert is a 54-year-old male well-known to the practice, who was admitted for prolonged seizure. His Dilantin levels were basically 0, he had not gotten into the office in fact he no showed 3 appointments over the last week and had not been taking his seizure meds either because he ran out or he just stopped taking it. Review of Systems Constitutional: Reports as per HPI, Reports fatigue, Reports lethargy Ears, nose, mouth and throat: Reports as per HPI Cardiovascular: Reports as per HPI Respiratory: Reports as per HPI Gastrointestinal: Reports as per HPI Genitourinary: Reports as per HPI Musculoskeletal: Reports as per HPI Integumentary: Reports as per HPI Neurological: Reports seizures (Known hemorrhagic stroke by history, patient has been having episodic seizures since that time and has been on both Keppra and or Dilantin since that time) Psychiatric: Reports anxiety, Reports depression, Reports difficulty concentrating, Reports memory loss, Reports mood swings Past Medical History Past Medical History: CVA/TIA, GERD/Reflux, Hyperlipidemia, Hypertension, Pneumonia, Seizure Disorder Additional Past Medical History / Comment(s): L hemorrhagic stroke-R sided weakness and has had occasions of increased irritability/agitation/isolation, multiple mental health unit admissions with most recent on [facility]/24/[facility] with major depression/suicidal ideations without plan/acute anxiety, uncontrolled seizures, L pneumothorax with chest tube, migraines-has used other people's narcotics in the past per past medical record but pt denies, benign rectal polyp, etoh last drink more than 10 years ago. History of Any Multi-Drug Resistant Organisms: None Reported Past Surgical History: No Surgical Hx Reported Additional Past Surgical History / Comment(s): COLONOSCOPY POLYPS REMOVED-NEG, bilateral cataract removal, R testicular surgery as a little boy. Past Anesthesia/Blood Transfusion Reactions: No Reported Reaction Additional Past Anesthesia/Blood Transfusion Reaction / Comment(s): Pt has never recieved blood. Past Psychological History: Anxiety, Bipolar, Depression, Panic Disorder Additional Psychological History / Comment(s): Pt resides alone in an apartment. He states he has hx of depression and has had suicidal ideation in the past few weeks but no specific plan. When what would he do to commit suicide he states "I don't know, I would just do it." Pt recently re-established with [facility] and has a ACT team. He does not drive, he uses the bus to get to appointments. He uses a walker to ambulate. He states he can cook. Smoking Status: Current every day smoker Past Alcohol Use History: None Reported Additional Past Alcohol Use History / Comment(s): Pt started smoking in 1976 and is a 1 ppd smoker. He has hx of alcohol abuse but quit long ago. Past Drug Use History: None Reported Additional Drug Use History / Comment(s): Pt has hx of polysubstance abuse per PMR-Adderall/xanax/flexeril, however pt currently denies this. - Past Family History Father Family Medical History: Cancer, Hyperlipidemia, Hypertension, Prostate Disorder Additional Family Medical History / Comment(s): PROSTATE CA Mother Family Medical History: Osteoarthritis (OA) Additional Family Medical History / Comment(s): MOM IS 71 Medications and Allergies Home Medications Medication Instructions Recorded Confirmed Type carvediloL [Carvedilol] 25 mg PO BID #28 tablet 09/27/18 12/24/19 Rx Aspirin [Adult Low Dose Aspirin EC] 81 mg PO DAILY 10/24/18 12/24/19 History Atorvastatin [Lipitor] 80 mg PO HS 10/24/18 12/24/19 History Baclofen [Lioresal] 10 mg PO TID 10/24/18 12/24/19 History amLODIPine [Norvasc] 5 mg PO DAILY 10/24/18 12/24/19 History Citalopram Hydrobromide [CeleXA] 40 mg PO DAILY #28 tab 11/05/18 12/24/19 Rx Magnesium Oxide [Mag-Ox] 400 mg PO DAILY #28 tab 11/05/18 12/24/19 Rx QUEtiapine FUMARATE [SEROquel] 300 mg PO HS #28 tab 11/05/18 12/24/19 Rx clonazePAM [KlonoPIN] 0.5 mg PO BID PRN tab 11/05/18 12/24/19 Rx Famotidine [Pepcid] 20 mg PO BID #60 tab 11/21/18 12/24/19 Rx Tamsulosin HCl [Flomax] 0.4 mg PO DAILY 12/24/19 12/24/19 History Valsartan 160 mg PO DAILY 12/24/19 12/24/19 History hydroCHLOROthiazide [Hydrodiuril] 25 mg PO DAILY 12/24/19 12/24/19 History Buprenorphine HCl/Naloxone HCl 1 film PO HS 12/25/19 12/25/19 History [Suboxone 4 mg-1 mg Sl Film] Buprenorphine HCl/Naloxone HCl 1 film PO QAM 12/25/19 12/25/19 History [Suboxone 8 mg-2 mg Sl Film] Allergies Allergy/AdvReac Type Severity Reaction Status Date / Time No Known Allergies Allergy Verified 11/19/18 22:08 Physical Exam Osteopathic Statement: *. No significant issues noted on an osteopathic structural exam other than those noted in the History and Physical/Consult. Vitals: Vital Signs Temp Pulse Pulse Resp BP BP Pulse Ox 12/25/19 12:11 98.7 F 66 18 85/50 96 12/25/19 05:00 97.8 F 56 L 18 95/61 95 12/24/19 22:30 98.1 F 70 18 97/60 95 12/24/19 19:19 98.7 F 84 16 99/68 95 Intake and Output 12/24/19 12/25/19 12/25/19 22:59 06:59 14:59 Intake Total 800 Balance 800 Intake: Intake, IV Titration 800 Amount Sodium Chloride 0.9% 1, 800 000 ml @ 100 mls/hr IV . Q10H ONE Rx#:[id number] Other: Voiding Method Toilet Urinal # Voids 1 1 1 Weight 74.843 kg General: [Patient awake, alert and oriented times 3. Patient in no acute dis tress.] HEENT: [PERRL. EOMI. No pharyngeal erythema or exudate.] Neck: [No adenopathy.] Cardiac: [Heart regular in rate and rhythm. No S3. No S4. No clicks, rubs. No murmur.] Lungs: [Clear to auscultation bilaterally.] Abdomen: [No mass. No organomegaly. Bowel sounds presnt and normoactive in all 4 quadrants.] Extremes: [No edema no cyanosis no claudication normal pulses] : Normal male genitalia Musculoskeletal: [No joint erythema, edema or tenderness.] Skin: [No rash.] Neurologic: [No lateralizing deficits. CN II - XII grossly intact.] Lymphatic: [No adenopathy.] Results CBC & Chem 7: 12/24/19 20:11 12/24/19 20:11 Labs: Abnormal Lab Results - Last 24 Hours (Table) 12/24/19 12/24/19 12/24/19 Range/Units 20:11 20:11 21:38 Lymphocytes # 0.8 L (1.0-4.8) k/uL Sodium 135 L (137-145) mmol/L Carbon Dioxide 15 L (22-30) mmol/L Creatinine 1.32 H (0.66-1.25) mg/dL Magnesium 2.4 H (1.6-2.3) mg/dL Ur Barbiturates Screen Detected H (NotDetected) U Tricyclic Antidepress Detected H (NotDetected) Thrombosis Risk Factor Assmnt - DVT/VTE Prophylaxis DVT/VTE Prophylaxis: Low risk, early ambulation encouraged - Choose All That Apply Any of the Below Risk Factors Present?: Yes Each Factor Represents 1 point: Age 41-60 years Other Risk Factors: No Thrombosis Risk Factor Assessment Total Risk Factor Score: 1 Thrombosis Risk Factor Assessment Level: Low Risk Assessment and Plan (1) Non-compliant behavior Current Visit: Yes Status: Acute Code(s): R46.89 - OTHER SYMPTOMS AND SIGNS INVOLVING APPEARANCE AND BEHAVIOR SNOMED Code(s): 454592495 (2) Dehydration Current Visit: Yes Status: Acute Code(s): E86.0 - DEHYDRATION SNOMED Code(s): 62522948 (3) Epileptic seizure, generalized Current Visit: Yes Status: Acute Code(s): G40.309 - GEN IDIOPATHIC EPILEPSY, NOT INTRACTABLE, W/O STAT EPI SNOMED Code(s): 07031380 (4) Essential (primary) hypertension Current Visit: No Status: Acute Code(s): I10 - ESSENTIAL (PRIMARY) HYPERTENSION SNOMED Code(s): 10837394 (5) Tobacco abuse Current Visit: No Status: Acute Code(s): Z72.0 - TOBACCO USE SNOMED Code(s): 274018815 (6) Personal history of stroke with residual effects Current Visit: No Status: Chronic Priority: Medium Code(s): I69.30 - UNSPECIFIED SEQUELAE OF CEREBRAL INFARCTION SNOMED Code(s): 6588831183970 (7) Seizure Current Visit: No Status: Chronic Code(s): R56.9 - UNSPECIFIED CONVULSIONS SNOMED Code(s): 37967050 Plan: Renew antiseizure medication Load orally with Dilantin Discharge patient home Follow up with either Dr. Fisher, Dr. Ervin or one of the mid-level's We will renew Dilantin as scheduled Time with Patient: Greater than 30
--- NOTE | 2019-12-25 14:02 | P.DS ---
Providers Date of admission: 12/24/19 21:10 Expected date of discharge: 12/25/19 Attending physician: Derrick Fisher Primary care physician: Derrick Fisher - Discharge Diagnosis(es) (1) Non-compliant behavior Current Visit: Yes Status: Acute (2) Dehydration Current Visit: Yes Status: Acute (3) Epileptic seizure, generalized Current Visit: Yes Status: Acute (4) Essential (primary) hypertension Current Visit: No Status: Acute (5) Tobacco abuse Current Visit: No Status: Acute (6) Personal history of stroke with residual effects Current Visit: No Status: Chronic Priority: Medium (7) Seizure Current Visit: No Status: Chronic Hospital Course: We'll discharge home today pending Dilantin level Patient Condition at Discharge: Fair Plan - Discharge Summary Discharge Rx Participant: No New Discharge Prescriptions: New Phenytoin Sodium Extended [Dilantin] 200 mg PO TID #30 capsule No Action carvediloL [Carvedilol] 25 mg PO BID #28 tablet amLODIPine [Norvasc] 5 mg PO DAILY Baclofen [Lioresal] 10 mg PO TID Atorvastatin [Lipitor] 80 mg PO HS Aspirin [Adult Low Dose Aspirin EC] 81 mg PO DAILY Citalopram Hydrobromide [CeleXA] 40 mg PO DAILY #28 tab clonazePAM [KlonoPIN] 0.5 mg PO BID PRN tab PRN Reason: Anxiety Magnesium Oxide [Mag-Ox] 400 mg PO DAILY #28 tab QUEtiapine FUMARATE [SEROquel] 300 mg PO HS #28 tab Famotidine [Pepcid] 20 mg PO BID #60 tab Valsartan 160 mg PO DAILY hydroCHLOROthiazide [Hydrodiuril] 25 mg PO DAILY Tamsulosin HCl [Flomax] 0.4 mg PO DAILY Buprenorphine HCl/Naloxone HCl [Suboxone 4 mg-1 mg Sl Film] 1 film PO HS Buprenorphine HCl/Naloxone HCl [Suboxone 8 mg-2 mg Sl Film] 1 film PO QAM Discharge Medication List carvediloL [Carvedilol] 25 mg PO BID #28 tablet 09/27/18 [Rx] Aspirin [Adult Low Dose Aspirin EC] 81 mg PO DAILY 10/24/18 [History] Atorvastatin [Lipitor] 80 mg PO HS 10/24/18 [History] Baclofen [Lioresal] 10 mg PO TID 10/24/18 [History] amLODIPine [Norvasc] 5 mg PO DAILY 10/24/18 [History] Citalopram Hydrobromide [CeleXA] 40 mg PO DAILY #28 tab 11/05/18 [Rx] Magnesium Oxide [Mag-Ox] 400 mg PO DAILY #28 tab 11/05/18 [Rx] QUEtiapine FUMARATE [SEROquel] 300 mg PO HS #28 tab 11/05/18 [Rx] clonazePAM [KlonoPIN] 0.5 mg PO BID PRN tab 11/05/18 [Rx] Famotidine [Pepcid] 20 mg PO BID #60 tab 11/21/18 [Rx] Tamsulosin HCl [Flomax] 0.4 mg PO DAILY 12/24/19 [History] Valsartan 160 mg PO DAILY 12/24/19 [History] hydroCHLOROthiazide [Hydrodiuril] 25 mg PO DAILY 12/24/19 [History] Buprenorphine HCl/Naloxone HCl [Suboxone 4 mg-1 mg Sl Film] 1 film PO HS 12/25/19 [History] Buprenorphine HCl/Naloxone HCl [Suboxone 8 mg-2 mg Sl Film] 1 film PO QAM 12/25/19 [History] Phenytoin Sodium Extended [Dilantin] 200 mg PO TID #30 capsule 12/25/19 [Rx] Follow up Appointment(s)/Referral(s): Derrick Fisher Jr, DO [Primary Care Provider] - 1-2 days
[2019-12-25 17:23] VITALS: BP 121/70; PULSE 53; RESP 16
[2019-12-25] MEDS ORDERED: PHENYTOIN SODIUM EXTENDED 100 MG CAP PO STA (18:17)
[2019-12-25] MEDS ORDERED: ATORVASTATIN 80 MG TAB PO SCH (21:00)
== END 2019-12-25 20:56 | disposition home or self-care (01) ==
LOC: EC 19:11 → INTOOBSV 21:10 → 6NMEDSUR 21:10 → UNDODISIN 12-25 20:56
PROVIDERS: ADMIT Family Medicine; ATTEND Family Medicine
DX: G40.419 Other generalized epilepsy and epileptic syndromes, intractable, without status epilepticus (principal); I69.298 Other sequelae of other nontraumatic intracranial hemorrhage; E86.0 Dehydration; I69.251 Hemiplegia and hemiparesis following other nontraumatic intracranial hemorrhage affecting right dominant side; R45.851 Suicidal ideations; F17.210 Nicotine dependence, cigarettes, uncomplicated; E78.5 Hyperlipidemia, unspecified; F31.9 Bipolar disorder, unspecified; G43.909 Migraine, unspecified, not intractable, without status migrainosus; F41.0 Panic disorder [episodic paroxysmal anxiety]; I10 Essential (primary) hypertension; K21.9 Gastro-esophageal reflux disease without esophagitis; Z91.19 Patient's noncompliance with other medical treatment and regimen; T42.76XA Underdosing of unspecified antiepileptic and sedative-hypnotic drugs, initial encounter; Z91.128 Patient's intentional underdosing of medication regimen for other reason; F10.11 Alcohol abuse, in remission; Z79.82 Long term (current) use of aspirin; Z79.899 Other long term (current) drug therapy; Z87.01 Personal history of pneumonia (recurrent); Z98.42 Cataract extraction status, left eye; Z98.41 Cataract extraction status, right eye; Z86.010 Personal history of colon polyps; Z80.42 Family history of malignant neoplasm of prostate; Z82.49 Family history of ischemic heart disease and other diseases of the circulatory system; Z82.61 Family history of arthritis
CPT/HCPCS: 96361; 96374; 96375; 99285; 36415; 93005; 80053; 80175; 80185 ×2; 83735; 84100; 85025; 80306; 83520; G0378 ×2; G0480 ×2; J2060; J1165; J3360; 80320; 80329; 96365; 96366

== ENCOUNTER 2020-01-12 21:56 | Inpatient (IN) | payer OTHER ==
--- NOTE | 2020-01-12 22:22 | ED ---
General Adult HPI - General Chief complaint: Weakness Stated complaint: weakness Time Seen by Provider: 01/12/20 22:10 Source: patient, EMS Mode of arrival: EMS Limitations: physical limitation - History of Present Illness Initial comments: Dictation was produced using [employer] dictation software. please excuse any grammatical, word or spelling errors. This patient was cared for during a federal and state declared state of emergency secondary to Covid 19 Chief Complaint: 54-year-old male past medical history of stroke and seizures. He presents today with weakness, difficulty ambulating History of Present Illness: Patient is 54-year-old male. He has past medical history of stroke. Patient states that he suffered a stroke 3 years ago and now has chronic seizures secondary to this. His neurologist is Dr. Lai. He takes Dilantin. Patient states she's been compliant with his medication. On Sunday he reports that he had a stroke. Patient has history of partial right- sided seizures. Patient states that since then he has been feeling weak and having difficulty ambulating. Patient does feel like the room was spinning. Denies any fever, chills or night sweats. He has history of residual right- sided weakness however since Sunday he is having worsening right-sided weakness. Patient feels as though the room is spinning. He states it's worse with position changes. No constitutional symptoms. The ROS documented in this emergency department record has been reviewed and confirmed by me. Those systems with pertinent positive or negative responses have been documented in the HPI. All other systems are other negative and/or noncontributory. PHYSICAL EXAM: General Impression: Alert and oriented x3, not in acute distress HEENT: Normocephalic atraumatic, extra-ocular movements intact, pupils equal and reactive to light bilaterally, dry mucous membranes Cardiovascular: Heart regular rate and rhythm Chest: Able to complete full sentences, no retractions, no tachypnea Abdomen: abdomen soft, non-tender, non-distended, no organomegaly Musculoskeletal: Pulses present and equal in all extremities, no peripheral edema Motor: no focal deficits noted Neurological: CN II-XII grossly intact, drift of the right lower extremity, no drift of the upper extremities, left beating nystagmus with left gaze, non-dire ction changing, no truncal ataxia Skin: Intact with no visualized rashes Psych: Normal affect and mood ED course: 54-year-old male presents with generalized weakness. Vital signs upon arrival are within acceptable limits. His physical exam shows nystagmus with left gaze. The fast phases to the left. It is not direction changing. Patient reports having difficulty ambulating. Chart review was performed. Patient has history of taking Dilantin. He has long history of medication noncompliance. He was recently admitted earlier this month for seizure with prolonged postictal state. Laboratory evaluation obtained. CBC unremarkable. Coag panel unremarkable. Metabolic panel is negative. Patient care will be signed out to Dr. Banegas EKG interpretation: Ventricular rate 59, sinus bradycardia,. Interval to 18, QRS 110, QTc 473. No NC prolongation, no QTC prolongation, no ST or T-wave changes noted. EKG compared to 12/24/2019 showing no changes. Overall, this EKG is unremarkable - Related Data Home Medications Medication Instructions Recorded Confirmed Aspirin [Adult Low Dose Aspirin EC] 81 mg PO DAILY 10/24/18 01/13/20 Atorvastatin [Lipitor] 80 mg PO HS 10/24/18 01/13/20 amLODIPine [Norvasc] 5 mg PO DAILY 10/24/18 01/13/20 Tamsulosin HCl [Flomax] 0.4 mg PO DAILY 12/24/19 01/13/20 Valsartan 160 mg PO DAILY 12/24/19 01/13/20 hydroCHLOROthiazide [Hydrodiuril] 25 mg PO DAILY 12/24/19 01/13/20 Baclofen [Lioresal] 20 mg PO TID 01/12/20 01/13/20 Citalopram Hydrobromide [CeleXA] 40 mg PO DAILY 01/12/20 01/13/20 lamoTRIgine [LaMICtal] 25 mg PO BID 01/13/20 01/13/20 lamoTRIgine [LaMICtal] 200 mg PO BID 01/13/20 01/13/20 Previous Rx's Medication Instructions Recorded carvediloL [Carvedilol] 25 mg PO BID #28 tablet 09/27/18 Magnesium Oxide [Mag-Ox] 400 mg PO DAILY #28 tab 11/05/18 QUEtiapine FUMARATE [SEROquel] 300 mg PO HS #28 tab 11/05/18 Famotidine [Pepcid] 20 mg PO BID #60 tab 11/21/18 Phenytoin Sodium Extended 200 mg PO TID #30 capsule 12/25/19 [Dilantin] Allergies Allergy/AdvReac Type Severity Reaction Status Date / Time No Known Allergies Allergy Verified 01/13/20 12:07 Review of Systems ROS Statement: Those systems with pertinent positive or pertinent negative responses have been documented in the HPI. ROS Other: All systems not noted in ROS Statement are negative. Past Medical History Past Medical History: CVA/TIA, GERD/Reflux, Hyperlipidemia, Hypertension, Pneumonia, Seizure Disorder Additional Past Medical History / Comment(s): L hemorrhagic stroke-R sided weakness and has had occasions of increased irritability/agitation/isolation, multiple mental health unit admissions with most recent on 10/24/18 [facility] with major depression/suicidal ideations without plan/acute anxiety, uncontrolled seizures, L pneumothorax with chest tube, migraines-has used other people's narcotics in the past per past medical record but pt denies, benign rectal polyp, etoh last drink more than 10 years ago. History of Any Multi-Drug Resistant Organisms: None Reported Past Surgical History: No Surgical Hx Reported Additional Past Surgical History / Comment(s): COLONOSCOPY POLYPS REMOVED-NEG, bilateral cataract removal, R testicular surgery as a little boy. Past Anesthesia/Blood Transfusion Reactions: No Reported Reaction Additional Past Anesthesia/Blood Transfusion Reaction / Comment(s): Pt has never recieved blood. Past Psychological History: Anxiety, Bipolar, Depression, Panic Disorder Smoking Status: Current every day smoker Past Alcohol Use History: None Reported Past Drug Use History: None Reported - Past Family History Father Family Medical History: Cancer, Hyperlipidemia, Hypertension, Prostate Disorder Additional Family Medical History / Comment(s): PROSTATE CA Mother Family Medical History: Osteoarthritis (OA) Additional Family Medical History / Comment(s): MOM IS 71 General Exam Limitations: physical limitation Course Vital Signs 01/12/20 01/12/20 01/12/20 22:02 22:56 23:45 Temperature 98.9 F Pulse Rate 64 60 64 Respiratory 18 18 20 Rate Blood Pressure 133/81 117/83 129/84 O2 Sat by Pulse 98 94 L 97 Oximetry 01/13/20 01/13/20 00:00 01:00 Temperature Pulse Rate 59 L 61 Respiratory 18 20 Rate Blood Pressure 115/70 116/74 O2 Sat by Pulse 97 97 Oximetry Medical Decision Making - Lab Data Result diagrams: 01/12/20 22:21 01/12/20 22:21 Lab Results 01/12/20 01/12/20 01/12/20 Range/Units 22:21 22:21 22:21 WBC 7.6 (3.8-10.6) k/uL RBC 4.34 (4.30-5.90) m/uL Hgb 14.2 (13.0-17.5) gm/dL Hct 42.6 (39.0-53.0) % MCV 98.1 (80.0-100.0) fL MCH 32.6 (25.0-35.0) pg MCHC 33.3 (31.0-37.0) g/dL RDW 12.0 (11.5-15.5) % Plt Count 288 (150-450) k/uL Neutrophils % 66 % Lymphocytes % 23 % Monocytes % 6 % Eosinophils % 2 % Basophils % 1 % Neutrophils # 5.0 (1.3-7.7) k/uL Lymphocytes # 1.8 (1.0-4.8) k/uL Monocytes # 0.5 (0-1.0) k/uL Eosinophils # 0.2 (0-0.7) k/uL Basophils # 0.1 (0-0.2) k/uL PT 10.2 (9.0-12.0) sec INR 1.0 (<1.2) APTT 24.4 (22.0-30.0) sec Sodium 136 L (137-145) mmol/L Potassium 3.8 (3.5-5.1) mmol/L Chloride 102 (98-107) mmol/L Carbon Dioxide 26 (22-30) mmol/L Anion Gap 8 mmol/L BUN 15 (9-20) mg/dL Creatinine 1.07 (0.66-1.25) mg/dL Est GFR (CKD-EPI)AfAm >90 (>60 ml/min/1.73 sqM) Est GFR (CKD-EPI)NonAf 78 (>60 ml/min/1.73 sqM) Glucose 117 H (74-99) mg/dL Calcium 9.2 (8.4-10.2) mg/dL Magnesium 2.1 (1.6-2.3) mg/dL Total Bilirubin 0.4 (0.2-1.3) mg/dL AST 22 (17-59) U/L ALT 13 (4-49) U/L Alkaline Phosphatase 73 (38-126) U/L Total Protein 6.9 (6.3-8.2) g/dL Albumin 4.2 (3.5-5.0) g/dL Disposition Clinical Impression: Weakness Disposition: ADMITTED IP TO THIS [facility] Condition: Fair Decision Time: 15:02
[2020-01-12] MEDS ORDERED: MECLIZINE 12.5 MG TAB PO STA (22:30)
[2020-01-12 22:34] LABS: Basophils # (A) 0.1 k/uL (0-0.2); Basophils % (A) 1 %; Eosinophils # (A) 0.2 k/uL (0-0.7); Eosinophils % (A) 2 %; HCT 42.6 % (39.0-53.0); HGB 14.2 gm/dL (13.0-17.5); Lymphocytes # (A) 1.8 k/uL (1.0-4.8); Lymphocytes % (A) 23 %; MCH 32.6 pg (25.0-35.0); MCHC 33.3 g/dL (31.0-37.0); MCV 98.1 fL (80.0-100.0); Mean Platelet Volume 7.7; Monocytes # (A) 0.5 k/uL (0-1.0); Monocytes % (A) 6 %; Neutrophils % (A) 66 %; Platelet Count 288 k/uL (150-450); RBC 4.34 m/uL (4.30-5.90); WBC 7.6 k/uL (3.8-10.6)
[2020-01-12 22:37] LABS: Partial Thromboplastin Time 24.4 sec (22.0-30.0); Prothrombin Time 10.2 sec (9.0-12.0)
[2020-01-12 22:40] LABS: ALT 13 U/L (4-49); AST 22 U/L (17-59); African American GFR (CKD) >90 (>60 ml/min/1.73 sqM); Albumin 4.2 g/dL (3.5-5.0); Alkaline Phosphatase 73 U/L (38-126); Anion Gap 8 mmol/L; Blood Urea Nitrogen 15 mg/dL (9-20); Calcium 9.2 mg/dL (8.4-10.2); Carbon Dioxide 26 mmol/L (22-30); Chloride 102 mmol/L (98-107); Glucose 117 mg/dL (74-99); Magnesium 2.1 mg/dL (1.6-2.3); Non-African American GFR(CKD) 78 (>60 ml/min/1.73 sqM); Potassium 3.8 mmol/L (3.5-5.1); Sodium 136 mmol/L (137-145); Total Bilirubin 0.4 mg/dL (0.2-1.3); Total Protein 6.9 g/dL (6.3-8.2)
--- NOTE | 2020-01-12 23:09 | CT ---
EXAMINATION TYPE: CT brain wo con DATE OF EXAM: 01/12/2020 COMPARISON: 11/19/2018 HISTORY: Weakness, pt states he cannot walk. CT DLP: 1247.4 mGycm Automated exposure control for dose reduction was used. Ventricles have normal size. There is grade white matter hypodensity left posterior parietal lobe con sistent with an old infarct. There is no mass effect nor midline shift. There is no evidence of intra cranial hemorrhage. The calvarium is intact. There is mucosal thickening left side of the ethmoid sin us that measures 2.5 cm. I see no definite bone destruction. IMPRESSION: Old left parietal infarct unchanged compared to old exam. No acute intracranial abnormality. Chronic left side ethmoid sinusitis not significantly different than old exam. This could be a mucocele or mu cous retention cyst.
[2020-01-12] MEDS ORDERED: CALCIUM CARBONATE 500 MG CHEWABLE PO STA (23:33)
[2020-01-13] MEDS ORDERED: DIAZEPAM 5 MG/ML 2 ML INJ IVP STA (01:06)
[2020-01-13] MEDS ORDERED: NALOXONE 0.4 MG/ML 1 ML VIAL IV PRN (01:22)
[2020-01-13] MEDS: carvediloL 12.5 MG TAB PO SCH ×2 (06:26→17:21)
[2020-01-13] MEDS: ASPIRIN 81 MG PO SCH (10:37)
[2020-01-13] MEDS: amLODIPine 5 MG TAB PO SCH (10:37)
[2020-01-13] MEDS: FAMOTIDINE 20 MG TAB PO SCH ×2 (10:38→21:31)
[2020-01-13] MEDS: CITALOPRAM HYDROBROMIDE 20 MG TAB PO SCH (10:38)
[2020-01-13] MEDS: hydroCHLOROthiazide 25 MG TAB PO SCH (10:39)
[2020-01-13] MEDS: VALSARTAN 160 MG TAB PO SCH (10:39)
[2020-01-13] MEDS: PHENYTOIN SODIUM EXTENDED 100 MG CAP PO SCH ×3 (10:39→17:24)
[2020-01-13] MEDS: MAGNESIUM OXIDE 400 MG TAB PO SCH (13:10)
[2020-01-13] MEDS: lamoTRIgine 100 MG TAB PO SCH ×2 (13:10→21:30)
[2020-01-13] MEDS: lamoTRIgine 25 MG TAB PO SCH ×2 (13:10→21:31)
--- NOTE | 2020-01-13 13:49 | P.HPIM ---
History of Present Illness H&P Date: 01/06/20 Chief Complaint: dizzyness This is a 54 y/o male well known to me from my practice c.o 4 day h/o dizzyness with any head movement and walking. He reports some worsening of his right sided hemiplegia. He has a h/o hemorraghic CVA in 2015. he has seizures disorder related to that event and an extensive psych histroy with depression. anxiety and suicidal ideation. Most recetnly He has been tx with Subxone for OUD. He continues to smoke and occasionally use NSAIDS despite my warnings. currently he resting comfortably in the bed. He is able to stand and walk with walker but states he feels dizzy and would otherwise fall without support. He denies any chest pain, pressure, SOB, nausea or vomiting. HE states his wekness is better now Per the pateint, He recently had seen his neurologist and had his Dilantin doubled to 100mg , 2 tabs tid Review of Systems All systems: negative Past Medical History Past Medical History: CVA/TIA, GERD/Reflux, Hyperlipidemia, Hypertension, Pneumonia, Seizure Disorder Additional Past Medical History / Comment(s): L hemorrhagic stroke-R sided weakness and has had occasions of increased irritability/agitation/isolation, multiple mental health unit admissions with most recent on 10/24/18 [facility] with major depression/suicidal ideations without plan/acute anxiety, uncontrolled seizures, L pneumothorax with chest tube, migraines-has used other people's narcotics in the past per past medical record but pt denies, benign rectal sabrina yp, etoh last drink more than 10 years ago. History of Any Multi-Drug Resistant Organisms: None Reported Past Surgical History: No Surgical Hx Reported Additional Past Surgical History / Comment(s): COLONOSCOPY POLYPS REMOVED-NEG, bilateral cataract removal, R testicular surgery as a little boy. Past Anesthesia/Blood Transfusion Reactions: No Reported Reaction Additional Past Anesthesia/Blood Transfusion Reaction / Comment(s): Pt has never recieved blood. Past Psychological History: Anxiety, Bipolar, Depression, Panic Disorder Additional Psychological History / Comment(s): Pt resides alone in an apartment. He states he has hx of depression and has had suicidal ideation. Pt recently re- established with [facility] and has a ACT team. He does not drive, he uses the bus to get to appointments. He uses a walker to ambulate. He states he can cook. Smoking Status: Current every day smoker Past Alcohol Use History: None Reported Additional Past Alcohol Use History / Comment(s): Pt started smoking in 1976 and is a 1 ppd smoker. He has hx of alcohol abuse but quit long ago. Past Drug Use History: None Reported Additional Drug Use History / Comment(s): Pt has hx of polysubstance abuse per PMR-Adderall/xanax/flexeril, however pt currently denies this. - Past Family History Father Family Medical History: Cancer, Hyperlipidemia, Hypertension, Prostate Disorder Additional Family Medical History / Comment(s): PROSTATE CA Mother Family Medical History: Osteoarthritis (OA) Additional Family Medical History / Comment(s): MOM IS 71 Medications and Allergies Home Medications Medication Instructions Recorded Confirmed Type carvediloL [Carvedilol] 25 mg PO BID #28 tablet 09/27/18 01/13/20 Rx Aspirin [Adult Low Dose Aspirin EC] 81 mg PO DAILY 10/24/18 01/13/20 History Atorvastatin [Lipitor] 80 mg PO HS 10/24/18 01/13/20 History amLODIPine [Norvasc] 5 mg PO DAILY 10/24/18 01/13/20 History Magnesium Oxide [Mag-Ox] 400 mg PO DAILY #28 tab 11/05/18 01/13/20 Rx QUEtiapine FUMARATE [SEROquel] 300 mg PO HS #28 tab 11/05/18 01/13/20 Rx Famotidine [Pepcid] 20 mg PO BID #60 tab 11/21/18 01/13/20 Rx Tamsulosin HCl [Flomax] 0.4 mg PO DAILY 12/24/19 01/13/20 History Valsartan 160 mg PO DAILY 12/24/19 01/13/20 History hydroCHLOROthiazide [Hydrodiuril] 25 mg PO DAILY 12/24/19 01/13/20 History Phenytoin Sodium Extended 200 mg PO TID #30 capsule 12/25/19 01/13/20 Rx [Dilantin] Baclofen [Lioresal] 20 mg PO TID 01/12/20 01/13/20 History Citalopram Hydrobromide [CeleXA] 40 mg PO DAILY 01/12/20 01/13/20 History lamoTRIgine [LaMICtal] 25 mg PO BID 01/13/20 01/13/20 History lamoTRIgine [LaMICtal] 200 mg PO BID 01/13/20 01/13/20 History Allergies Allergy/AdvReac Type Severity Reaction Status Date / Time No Known Allergies Allergy Verified 01/13/20 12:07 Physical Exam Vitals: Vital Signs Temp Pulse Pulse Resp BP BP Pulse Ox 01/13/20 11:48 98.1 F 57 L 17 119/69 97 01/13/20 07:51 98.1 F 60 18 99/57 95 01/13/20 03:00 98.1 F 61 19 149/79 96 01/13/20 02:03 78 20 100/65 97 01/13/20 01:00 61 20 116/74 97 01/13/20 00:00 59 L 18 115/70 97 01/12/20 23:45 64 20 129/84 97 01/12/20 22:56 60 18 117/83 94 L 01/12/20 22:02 98.9 F 64 18 133/81 98 Intake and Output 01/12/20 01/13/20 01/13/20 22:59 06:59 14:59 Output Total 200 Balance -200 Output: Urine 200 Other: # Voids 1 Weight 79.333 kg 79.1 kg - Constitutional General appearance: average body habitus - EENT obvious right sided nystagmus horizontally Eyes: EOMI, PERRLA ENT: normal oropharynx - Neck Neck: no lymphadenopathy Carotids: bilateral: upstroke normal Thyroid: bilateral: normal size - Respiratory Respiratory: bilateral: diminished - Cardiovascular Rhythm: regular Heart sounds: normal: S1, S2 Abnormal Heart Sounds: no systolic murmur - Gastrointestinal General gastrointestinal: normal bowel sounds - Neurologic Neurologic: CNII-XII intact, focal deficits (minimal right sided weakness) - Psychiatric Psychiatric: A&O x's 3 (flat affect-baseline) Results CBC & Chem 7: 01/12/20 22:21 01/12/20 22:21 Labs: Abnormal Lab Results - Last 24 Hours (Table) 01/12/20 Range/Units 22:21 Sodium 136 L (137-145) mmol/L Glucose 117 H (74-99) mg/dL CT Scan - head: report reviewed Thrombosis Risk Factor Assmnt - DVT/VTE Prophylaxis DVT/VTE Prophylaxis: Low risk, early ambulation encouraged - Choose All That Apply Each Factor Represents 1 point: Age 41-60 years Thrombosis Risk Factor Assessment Total Risk Factor Score: 1 Thrombosis Risk Factor Assessment Level: Low Risk Assessment and Plan Plan: assessment: dizzyness h/o hemorraghic CVA right sided hemiplegia tobaccoism hypertension seizure disorder Anxiety Migraine Opiod use disorder Depression Anxiety plan: ambulation, pt/ot to evaluate consult neurology check dliantin and lamictal levels repeat labs monitor will reevaluate in 24 hr
--- NOTE | 2020-01-13 14:00 | P.CNNES ---
History of Present Illness Consult date: 01/13/20 Requesting physician: Freda Banegas Reason for Consult: dizziness and weakness with hx of hemorrhagic stroke 2017 with seizure History of Present Illness: This is a 54-year-old right-handed gentleman with medical history of hemorrhagic stroke (left parietal) 2015 with residual right sided weakness, seizure disorder, hypertension, hyperlipidemia who presented emergency department on 01/12/2020 for worsening weakness over the right side, difficulty ambulating and feeling dizzy for the past 4-5 days. Patient is accompanied by his was at bedside that. Because of his history of stroke he has residual right-sided weakness and he feels he has progression of his weakness recently. He said when he walks he feels wobbly. He feels the room is spining around him and mostly it is positional but alleviated with rest. Yesterday in afternoon he had diplopia out of both eyes (side to side) lasting one hour and when covered either eye it resolved. Denies ringing of ears or hearing loss. He denies any fever or chills. Denies any head trauma. Patient smokes 1 pack a day and he's been smoking in the 4 years. He denies F any alcohol use. Denies of any illicit drug use. Regarding his seizures he said that he usually has a tonic-clonic over the right upper and lower extremity at. Initially starts with numbness over the right hand then it progresses to tonic-clonic over right upper extremity and lower extremity at. He denies any loss of consciousness this episode. Denies any tongue bite. Sometimes he has urinary incontinence with this episode. Denies any bowel incontinence. Episode happens once every 2 weeks at. Last episode was about 2 weeks ago and he said that during the episode he lost consciousness and that episode was prolonged at. He saw Dr. Lai his neurologist, and he increased his Dilantin ER from the 100 mg 1 tablet 3 times a day to 200 mg 3 times a day the past 1-2 weeks. He continues to be on lamotrigine 225 mg twice a day. He said that he doesn't believe that he is over that indicating on seizure medication and it's in the box pill. In the past he was on Keppra and he said he not have any side effects from the medication but he felt like it wasn't working for him. He doesn't recall the dose that he was on. Last time he saw Dr. Lai was a within the last 1 month. Prior to the hemorrhagic stroke in 2015 the patient never had any seizures. Patient's history is the normal. He was a product of normal gestation, and then no complication. There is no family history of seizures. Workup in the hospital consisted of: Initial vital signs is blood pressure of 133/81, heart rate of 64, respiratory of 18, temperature of 98.9 Fahrenheit oral and pulse ox of 98% room air. CT of the head which is reported as old left parietal infarct unchanged compared to old exam. No acute intracranial abnormality. Chronic left sided ethmoid sinusitis not significant only different than old exam. This could be and mucosal or mucous retention cyst. I did review the CT of the head and the patient does have an old left parietal encephalomalacia consistent with his history of stroke stroke. There is no acute the ischemia or hemorrhage is seen on the CT of the head. EKG was reported as sinus bradycardia with first-degree AV block. Ventricle rate of 59. Otherwise normal EKG. Also the patient the was on Dilantin for years since the patient had seizures. He was also on Keppra but then it was a titrated down and discontinued and then the lamotrigine was started because of the psychiatric problems in which also helps with his seizures. Patient was seen by the neuro hospitalist at [facility] on 11/20/2018 for altered mental status. He was also seen by Dr. Lai and 2017/2017. Last routine EEG in our system is on 2017 and was reported as diffuse background slowing of moderate encephalopathy. There is no focal slowing, a platform discharges or seizures. In 2014 the EEG was normal. Patient had CT angiography of the head and neck and was reported no significant common carotid oral ICA stenosis of on either side. The vertebral arteries are codominant dominants and patent. 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 No large vessel intracranial occlusion, significant stenosis or aneurysm changes seen. Patient was told that he had hemorrhagic stroke as a result of hypertension. Review of Systems Review of system: The 12 point system was reviewed and apparent positive and negative per HPI. Past Medical History Past Medical History: CVA/TIA, GERD/Reflux, Hyperlipidemia, Hypertension, Pneumonia, Seizure Disorder Additional Past Medical History / Comment(s): L hemorrhagic stroke-R sided weakness and has had occasions of increased irritability/agitation/isolation, multiple mental health unit admissions with most recent on 10/24/18 [facility] with major depression/suicidal ideations without plan/acute anxiety, uncontrolled seizures, L pneumothorax with chest tube, migraines-has used other people's narcotics in the past per past medical record but pt denies, benign rectal polyp, etoh last drink more than 10 years ago. History of Any Multi-Drug Resistant Organisms: None Reported Past Surgical History: No Surgical Hx Reported Additional Past Surgical History / Comment(s): COLONOSCOPY POLYPS REMOVED-NEG, bilateral cataract removal, R testicular surgery as a little boy. Past Anesthesia/Blood Transfusion Reactions: No Reported Reaction Additional Past Anesthesia/Blood Transfusion Reaction / Comment(s): Pt has never recieved blood. Past Psychological History: Anxiety, Bipolar, Depression, Panic Disorder Additional Psychological History / Comment(s): Pt resides alone in an apartment. He states he has hx of depression and has had suicidal ideation. Pt recently re- established with [facility] and has a ACT team. He does not drive, he uses the bus to get to appointments. He uses a walker to ambulate. He states he can cook. Smoking Status: Current every day smoker Past Alcohol Use History: None Reported Additional Past Alcohol Use History / Comment(s): Pt started smoking in 1976 and is a 1 ppd smoker. He has hx of alcohol abuse but quit long ago. Past Drug Use History: None Reported Additional Drug Use History / Comment(s): Pt has hx of polysubstance abuse per PMR-Adderall/xanax/flexeril, however pt currently denies this. - Past Family History Father Family Medical History: Cancer, Hyperlipidemia, Hypertension, Prostate Disorder Additional Family Medical History / Comment(s): PROSTATE CA Mother Family Medical History: Osteoarthritis (OA) Additional Family Medical History / Comment(s): MOM IS 71 Medications and Allergies Home Medications Medication Instructions Recorded Confirmed Type carvediloL [Carvedilol] 25 mg PO BID #28 tablet 09/27/18 01/13/20 Rx Aspirin [Adult Low Dose Aspirin EC] 81 mg PO DAILY 10/24/18 01/13/20 History Atorvastatin [Lipitor] 80 mg PO HS 10/24/18 01/13/20 History amLODIPine [Norvasc] 5 mg PO DAILY 10/24/18 01/13/20 History Magnesium Oxide [Mag-Ox] 400 mg PO DAILY #28 tab 11/05/18 01/13/20 Rx QUEtiapine FUMARATE [SEROquel] 300 mg PO HS #28 tab 11/05/18 01/13/20 Rx Famotidine [Pepcid] 20 mg PO BID #60 tab 11/21/18 01/13/20 Rx Tamsulosin HCl [Flomax] 0.4 mg PO DAILY 12/24/19 01/13/20 History Valsartan 160 mg PO DAILY 12/24/19 01/13/20 History hydroCHLOROthiazide [Hydrodiuril] 25 mg PO DAILY 12/24/19 01/13/20 History Phenytoin Sodium Extended 200 mg PO TID #30 capsule 12/25/19 01/13/20 Rx [Dilantin] Baclofen [Lioresal] 20 mg PO TID 01/12/20 01/13/20 History Citalopram Hydrobromide [CeleXA] 40 mg PO DAILY 01/12/20 01/13/20 History lamoTRIgine [LaMICtal] 25 mg PO BID 01/13/20 01/13/20 History lamoTRIgine [LaMICtal] 200 mg PO BID 01/13/20 01/13/20 History Allergies Allergy/AdvReac Type Severity Reaction Status Date / Time No Known Allergies Allergy Verified 01/13/20 12:07 Physical Examination - Vital Signs Vital Signs: Vital Signs Temp Pulse Pulse Resp BP BP Pulse Ox 01/13/20 11:48 98.1 F 57 L 17 119/69 97 01/13/20 07:51 98.1 F 60 18 99/57 95 01/13/20 03:00 98.1 F 61 19 149/79 96 01/13/20 02:03 78 20 100/65 97 01/13/20 01:00 61 20 116/74 97 01/13/20 00:00 59 L 18 115/70 97 01/12/20 23:45 64 20 129/84 97 01/12/20 22:56 60 18 117/83 94 L 01/12/20 22:02 98.9 F 64 18 133/81 98 Intake and Output 01/12/20 01/13/20 01/13/20 22:59 06:59 14:59 Output Total 200 Balance -200 Output: Urine 200 Other: # Voids 1 Weight 79.333 kg 79.1 kg GENERAL: The patient is lying in bed and is not in acute distress. CHEST: The heart rate is regular rate rhythm. No murmurs to auscultation. LUNG: Clear to auscultation bilaterally no wheezing noted throughout. Not labored breathing. ABDOMEN/GI: Bowel sounds present in all 4 quadrants. No tenderness to palpation throughout. NEUROLOGICAL: Higher mental function: The patient is awake, alert, oriented to self, place and time. Patient is following commands. No aphasia and no neglect. Cranial nerves: The pupils are round, equal and reactive to light and acco mmodation. Visual callejas are full to confrontation throughout. Extraocular movement is intact no nystagmus is noted. Facial sensation is normal to touch throughout. The facial strength is normal throughout. Hearing is normal bilaterally to hand rub. Tongue is midline and moved [id number] without any difficulty. No dysarthria is noted. Shoulder shrug is normal bilaterally. Motor: Gait: He seemed somewhat wobbly upon walking but was not leaning towards one side or the other. The strength is right deltoid is 5-, Knee extension and flexion is 4+ to 5- otherwise 5/5 throughout. Normal tone and bulk. Cerebellum: Right finger to nose seemed ataxiac over the right otherwise normal over the left. Heel to mcknight is normal bilaterally. Sensation: Sensation is normal to touch throughout. Reflexes (right/left): Bradchioradialis 3+ bilaterally, patellar 3+ bilaterally Otherwise 2+ throughout. Plantars are downgoing bilaterally. Results AST of 22, ALT of 13. Dilation study: PT of 10.2, INR 1.0 and PTT of 24.4. - Laboratory Findings CBC and BMP: 01/12/20 22:21 01/12/20 22:21 Abnormal Lab Findings: Abnormal Labs 01/12/20 22:21 Sodium 136 L Glucose 117 H Assessment and Plan Assessment: 54-year-old gentleman with medical history of hemorrhagic stroke (left parietal) 2015 with residual right sided weakness, seizure disorder, who presented emergency department on 01/12/2020 for worsening weakness over the right side, difficulty ambulating and feeling dizzy for the past 4-5 days. He had an episode of having diplopia out of both eyes yesterday lasting 1 hour. His dilantin was increased in last 1-2 weeks from 100mg 1 tab tid to 200mg 1 tab tid and on chronic dose of Lamictal 225mg 1 tab bid. 1. Vertigo seems positional, transient diplopia (resolved) and feeling wobbly upon walking: I felt one of the possibilities is a drastic increase in Dilantin which was done in the last the 1-2 weeks, another possibility was the it could be benign positional vertigo and lastly I could not rule out a stroke. 2. Old left parietal hemorrhagic stroke (2014) with residual right-sided weakness 3. Seizure disorder due to above 4. Hypertension 5. Tobacco use Plan: I ordered a Dilantin level as well as the Lamictal levels. Regarding the patient vertigo the patient was given meclizine 50 mg once in the ED as well as was given Valium 5 mg IVP. Start the patient on meclizine 12.5 mg a 1 tablet twice a day. I notified the patient that the like to get MRI of the brain the but he stated that he is claustrophobic. I notified him that I can give him some Ativan prior to the MRI but he declined and he said that he once again open MRI as an outpatient. Continue home Dilantin ER 200mg 1 tab tid 200mg Lamictal 225mg 1 tab bid. Patient is also continued on the his home aspirin 81 mg and Lipitor 80 mg daily for secondary stroke prophylaxis. My opinion that the patient had a hemorrhagic stroke and don't see a reason for the aspirin or statin but I'll defer to his the outpatient neurologist. She was notified to continue controlling his hypertension. Patient was counseled on tobacco cessation Upon discharge the patient needs to follow-up with Dr. Lai as an outpatient. The plan was discussed with the patient as well as his . Thank you for the consultation. Jose Fernando M.D. Neuro-hospitalist Time with Patient: Greater than 30
[2020-01-13] MEDS ORDERED: LORazepam 2 MG/ML INJ IV STA (14:02)
[2020-01-13] MEDS: MECLIZINE 12.5 MG TAB PO SCH (21:30)
[2020-01-13] MEDS: QUEtiapine 100 MG TAB PO SCH (21:31)
[2020-01-13] MEDS: ATORVASTATIN 80 MG TAB PO SCH (21:44)
[2020-01-14] MEDS: carvediloL 12.5 MG TAB PO SCH ×2 (06:20→17:30)
[2020-01-14 07:46] LABS: Lamotrigine (Lamictal) 3.5 ug/mL (2.0-15.0)
[2020-01-14] MEDS: CITALOPRAM HYDROBROMIDE 20 MG TAB PO SCH (10:01)
[2020-01-14] MEDS: lamoTRIgine 25 MG TAB PO SCH ×2 (10:01→21:21)
[2020-01-14] MEDS: lamoTRIgine 100 MG TAB PO SCH ×2 (10:01→21:20)
[2020-01-14] MEDS: MAGNESIUM OXIDE 400 MG TAB PO SCH (10:01)
[2020-01-14] MEDS: ASPIRIN 81 MG PO SCH (10:01)
[2020-01-14] MEDS: FAMOTIDINE 20 MG TAB PO SCH ×2 (10:01→21:20)
[2020-01-14] MEDS: hydroCHLOROthiazide 25 MG TAB PO SCH (10:01)
[2020-01-14] MEDS: TAMSULOSIN 0.4 MG CAP.ER.24H PO SCH (10:02)
[2020-01-14] MEDS: amLODIPine 5 MG TAB PO SCH (10:02)
[2020-01-14] MEDS: PHENYTOIN SODIUM EXTENDED 100 MG CAP PO SCH ×2 (10:02→21:21)
[2020-01-14] MEDS: MECLIZINE 12.5 MG TAB PO SCH ×2 (12:26→21:21)
[2020-01-14] MEDS: VALSARTAN 160 MG TAB PO SCH (12:26)
--- NOTE | 2020-01-14 16:27 | P.PN ---
Subjective Progress Note Date: 01/14/20 Patient was seen at bedside and he said that he is doing better today compared to yesterday. He still continues to have some dizziness with position but nothing like yesterday. He denies of any nausea any vomiting. Denies of any further worsening of the weakness. His free Dilantin is supratherapeutic at 2.3 normal ranges 0.8 to 2. Also the the total Dilantin level was supratherapeutic was 27.9 and the normal range is a 10-20. The lumbar to G level is within the therapeutic range it's the 3.5 norm al range is between 2 to 15. Objective - Vital Signs Vital signs: Vital Signs Temp 97.7 F 01/14/20 12:00 Pulse 65 01/14/20 12:00 Resp 18 01/14/20 12:00 BP 112/69 01/14/20 12:00 Pulse Ox 97 01/14/20 12:00 Intake & Output 01/13/20 01/14/20 01/14/20 18:59 06:59 18:59 Intake Total 200 360 Output Total 1000 260 Balance -800 -260 360 Weight 74.3 kg Intake: Oral 200 360 Output: Urine 1000 260 Other: Voiding Method Toilet Bedside Commode # Voids 3 1 1 - Exam GENERAL: The patient is lying in bed and is not in acute distress. CHEST: The heart rate is regular rate rhythm. No murmurs to auscultation. LUNG: Clear to auscultation bilaterally no wheezing noted throughout. Not labored breathing. ABDOMEN/GI: Bowel sounds present in all 4 quadrants. No tenderness to palpation throughout. NEUROLOGICAL: Higher mental function: The patient is awake, alert, oriented to self, place and time. Patient is following commands. No aphasia and no neglect. Cranial nerves: The pupils are round, equal and reactive to light and accommodation. Visual callejas are full to confrontation throughout. Extraocular movement is intact no nystagmus is noted. Facial sensation is normal to touch throughout. The facial strength is normal throughout. Hearing is normal bilaterally to hand rub. Tongue is midline and moved [id number] without any difficulty. No dysarthria is noted. Shoulder shrug is normal bilaterally. Motor: Gait: He seemed somewhat wobbly upon walking but was not leaning towards one side or the other. The strength is right deltoid is 5-, Knee extension and flexion is 4+ to 5- otherwise 5/5 throughout. Normal tone and bulk. Cerebellum: Right finger to nose seemed ataxiac over the right otherwise normal over the left. Heel to mcknight is normal bilaterally. Sensation: Sensation is normal to touch throughout. Reflexes (right/left): Bradchioradialis 3+ bilaterally, patellar 3+ bilaterally Otherwise 2+ throughout. Plantars are downgoing bilaterally. - Labs CBC & Chem 7: 01/12/20 22:21 01/12/20 22:21 Labs: Abnormal Lab Results - Last 24 Hours (Table) 01/13/20 Range/Units 14:40 Free Phenytoin 2.3 H (0.8-2.0) ug/mL Assessment and Plan Assessment: 54-year-old gentleman with medical history of hemorrhagic stroke (left parietal) 2014 with residual right sided weakness, seizure disorder, who presented emergency department on 01/12/2020 for worsening weakness over the right side, difficulty ambulating and feeling dizzy for the past 4-5 days. He had an episode of having diplopia out of both eyes yesterday lasting 1 hour. His dilantin was increased in last 1-2 weeks from 100mg 1 tab tid to 200mg 1 tab tid and on chronic dose of Lamictal 225mg 1 tab bid. 1. Vertigo seems positional, transient diplopia (resolved) and feeling wobbly upon walking:Likely due to supratherapeutic dilantin. So the patient has a component of the benign positional vertigo. 2. Supratherapeutic Dilantin 3. Old left parietal hemorrhagic stroke (2014) with residual right-sided weakness 4. Seizure disorder due to above 5. Hypertension 6. Tobacco use Plan: Decrease the Dilantin ER from 200 mg 1 tablet the 3 times a day 250 one tablet 3 times a day. I will increase the Lamictal from 225 one tablet twice a day to the 250 mg twice a day. Regarding the patient vertigo the patient was given meclizine 50 mg once in the ED as well as was given Valium 5 mg IVP. Continue meclizine 12.5 mg a 1 tablet twice a day. He refused MRI the brain since she is claustrophobic and he said he'll get as an outpatient but I will think its needed as an inpatient since there is improvement in his condition and likely it's the super therapeutic Dilantin the is likely the culprit. The reason for MRI initially was he stated that he was having the dizziness worsening weakness and the was having visual disturbance as well. Patient is also continued on the his home aspirin 81 mg and Lipitor 80 mg daily for secondary stroke prophylaxis. My opinion that the patient had a hemorrhagic stroke and don't see a reason for the aspirin or statin but I'll defer to his the outpatient neurologist. He was notified to continue controlling his hypertension. Patient was counseled on tobacco cessation He is improving compared to yesterday and if he continues to improve by tomorrow and then the he is clear from a neurology perspective. Upon discharge the patient needs to follow-up with Dr. Lai as an outpatient. The plan was discussed with the patient We'll continue to follow Jose Fernando M.D. Neuro-hospitalist Time with Patient: Less than 30
--- NOTE | 2020-01-14 17:25 | P.PN ---
Subjective This is a 54 y/o male well known to me from my practice c.o 4 day h/o dizzyness with any head movement and walking. He reports some worsening of his right sided hemiplegia. He has a h/o hemorraghic CVA in 2014. he has seizures disorder related to that event and an extensive psych histroy with depression. anxiety and suicidal ideation. Most recetnly He has been tx with Subxone for OUD. He continues to smoke and occasionally use NSAIDS despite my warnings. currently he resting comfortably in the bed. He is able to stand and walk with walker but states he feels dizzy and would otherwise fall without support. He denies any chest pain, pressure, SOB, nausea or vomiting. HE states his wekness is better now Per the pateint, He recently had seen his neurologist and had his Dilantin doubled to 100mg , 2 tabs tid 01/14/2020: pateint was found to have elevated dialntin level, which may be casuing his vertigo sx. He is still refusing an MRI brain today requested by Neuro. Reassuranc and meds d/w pt for his claustraphobia. He reports sx better today a little. no chest paion, sob, nausea or vomitting. Neuro notes reviewed Objective - Vital Signs Vital signs: Vital Signs Temp 97.7 F 01/14/20 12:00 Pulse 65 01/14/20 12:00 Resp 18 01/14/20 16:00 BP 112/69 01/14/20 12:00 Pulse Ox 97 01/14/20 12:00 Intake & Output 01/13/20 01/14/20 01/14/20 18:59 06:59 18:59 Intake Total 200 360 Output Total 1000 260 Balance -800 -260 360 Weight 74.3 kg Intake: Oral 200 360 Output: Urine 1000 260 Other: Voiding Method Toilet Toilet Bedside Commode Bedside Commode # Voids 3 1 1 - Constitutional General appearance: Present: average body habitus - Neck Neck: Absent: lymphadenopathy Carotids: bilateral: upstroke normal Thyroid: bilateral: normal size - Respiratory Respiratory: bilateral: diminished - Cardiovascular Rhythm: regular Heart sounds: normal: S1, S2 - Neurologic Neurologic: Present: focal deficits (minmal right LE wekaness) - Psychiatric Psychiatric: Present: A&O x's 3 (flat affect) - Allied health notes Allied health notes reviewed: nursing - Labs CBC & Chem 7: 01/12/20 22:21 01/12/20 22:21 Labs: Abnormal Lab Results - Last 24 Hours (Table) 01/13/20 Range/Units 14:40 Free Phenytoin 2.3 H (0.8-2.0) ug/mL Assessment and Plan (1) Vertigo Current Visit: Yes Status: Acute Code(s): R42 - DIZZINESS AND GIDDINESS SNOMED Code(s): 256793622 (2) H/O intracranial hemorrhage Current Visit: Yes Status: Acute Code(s): Z86.79 - PERSONAL HISTORY OF OTHER DISEASES OF THE CIRCULATORY SYSTEM SNOMED Code(s): 07992162476184785 (3) Hypertension Current Visit: No Status: Acute Priority: Low Code(s): I10 - ESSENTIAL (PRIMARY) HYPERTENSION SNOMED Code(s): 53638386 (4) Nicotine dependence Current Visit: No Status: Acute Priority: Medium Code(s): F17.200 - NICOTINE DEPENDENCE, UNSPECIFIED, UNCOMPLICATED SNOMED Code(s): 73550911 (5) Non-compliant behavior Current Visit: No Status: Acute Code(s): R46.89 - OTHER SYMPTOMS AND SIGNS INVOLVING APPEARANCE AND BEHAVIOR SNOMED Code(s): 694583695 (6) Tobacco abuse Current Visit: No Status: Acute Code(s): Z72.0 - TOBACCO USE SNOMED Code(s): 144424171 (7) Bipolar disorder Current Visit: No Status: Chronic Priority: Low Code(s): F31.9 - BIPOLAR DISORDER, UNSPECIFIED SNOMED Code(s): 10340520 (8) Multiple substance abuse Current Visit: No Status: Chronic Code(s): F19.10 - OTHER PSYCHOACTIVE SUBSTANCE ABUSE, UNCOMPLICATED SNOMED Code(s): 61677989 (9) Personal history of stroke with residual effects Current Visit: No Status: Chronic Priority: Medium Code(s): I69.30 - UNSPECIFIED SEQUELAE OF CEREBRAL INFARCTION SNOMED Code(s): 0274905347233 (10) Seizure disorder Current Visit: No Status: Chronic Priority: Low Code(s): G40.909 - EPILEPSY, UNSP, NOT INTRACTABLE, WITHOUT STATUS EPILEPTICUS SNOMED Code(s): 552374676 (11) Elevated Dilantin level Current Visit: Yes Status: Acute Code(s): R78.89 - FINDING OF OTH SUBSTANCES, NOT NORMALLY FOUND IN BLOOD SNOMED Code(s): 300257392 (12) Medication side effects present Current Visit: Yes Status: Acute Code(s): T50.905A - ADVERSE EFFECT OF UNSP DRUG/MEDS/BIOL SUBST, INIT SNOMED Code(s): 312249301 Plan: add ENT to consults add prednisone to address a component of peripheral vertigo pt/ot continue Neuro Evaluation recheck dliantin and lamictal levels repeat labs monitor will reevaluate in 24 hr
[2020-01-14] MEDS: predniSONE 20 MG TAB PO SCH (18:17)
[2020-01-14] MEDS: QUEtiapine 100 MG TAB PO SCH (21:21)
[2020-01-14] MEDS: ATORVASTATIN 80 MG TAB PO SCH (21:21)
[2020-01-14] MEDS: PHENYTOIN 50 MG CHEWABLE PO SCH (21:22)
[2020-01-14] MEDS ORDERED: PHENYTOIN SODIUM EXTENDED 100 MG CAP PO SCH (22:00)
[2020-01-15] MEDS: carvediloL 12.5 MG TAB PO SCH ×2 (06:15→18:31)
[2020-01-15] MEDS: MECLIZINE 12.5 MG TAB PO SCH ×2 (08:43→20:37)
[2020-01-15] MEDS: predniSONE 20 MG TAB PO SCH (08:43)
[2020-01-15] MEDS: amLODIPine 5 MG TAB PO SCH (08:44)
[2020-01-15] MEDS: CITALOPRAM HYDROBROMIDE 20 MG TAB PO SCH (08:44)
[2020-01-15] MEDS: hydroCHLOROthiazide 25 MG TAB PO SCH (08:44)
[2020-01-15] MEDS: VALSARTAN 160 MG TAB PO SCH (08:44)
[2020-01-15] MEDS: TAMSULOSIN 0.4 MG CAP.ER.24H PO SCH (08:44)
[2020-01-15] MEDS: lamoTRIgine 25 MG TAB PO SCH ×2 (08:44→20:36)
[2020-01-15] MEDS: ASPIRIN 81 MG PO SCH (08:44)
[2020-01-15] MEDS: FAMOTIDINE 20 MG TAB PO SCH ×2 (08:44→20:36)
[2020-01-15] MEDS: lamoTRIgine 100 MG TAB PO SCH ×2 (08:44→20:35)
[2020-01-15] MEDS: MAGNESIUM OXIDE 400 MG TAB PO SCH (08:46)
[2020-01-15 08:56] LABS: Basophils # (A) 0.1 k/uL (0-0.2); Basophils % (A) 1 %; Eosinophils % (A) 1 %; HCT 46.6 % (39.0-53.0); HGB 15.4 gm/dL (13.0-17.5); Lymphocytes # (A) 1.5 k/uL (1.0-4.8); Lymphocytes % (A) 19 %; MCH 32.9 pg (25.0-35.0); MCV 99.8 fL (80.0-100.0); Mean Platelet Volume 7.7; Monocytes # (A) 0.5 k/uL (0-1.0); Monocytes % (A) 6 %; Neutrophils # (A) 5.6 k/uL (1.3-7.7); Neutrophils % (A) 72 %; Platelet Count 254 k/uL (150-450); RBC 4.67 m/uL (4.30-5.90); RDW 11.8 % (11.5-15.5); WBC 7.9 k/uL (3.8-10.6)
[2020-01-15 09:10] LABS: Albumin 4.4 g/dL (3.5-5.0); Calcium 9.7 mg/dL (8.4-10.2); Magnesium 2.2 mg/dL (1.6-2.3); Phenytoin (Dilantin) 21.8 ug/mL; Potassium 4.2 mmol/L (3.5-5.1); Total Bilirubin 0.5 mg/dL (0.2-1.3); Total Protein 7.3 g/dL (6.3-8.2)
[2020-01-15] MEDS: PHENYTOIN SODIUM EXTENDED 100 MG CAP PO SCH ×2 (12:35→20:36)
--- NOTE | 2020-01-15 12:44 | P.PN ---
Subjective Progress Note Date: 01/15/20 Patient stated that he is feeling dizzy he is having the diplopia feels somewhat nauseous. Otherwise denies any new weakness or numbness. Yesterday his Dilantin was reintroduced but was cut down from 200 TID to 250 TID. His Lamictal was increased from 225 twice a day to 250 twice a day. His total Chris tin level today is 21.8. Objective - Vital Signs Vital signs: Vital Signs Temp 97.7 F 01/15/20 04:00 Pulse 63 01/15/20 08:00 Resp 16 01/15/20 12:00 BP 138/84 01/15/20 08:00 Pulse Ox 99 01/15/20 08:00 Intake & Output 01/14/20 01/15/20 01/15/20 18:59 06:59 18:59 Intake Total 480 180 Output Total 300 Balance 480 -300 180 Weight 74 kg Intake: Oral 480 180 Output: Urine 300 Other: Voiding Method Toilet Toilet Toilet Bedside Commode Bedside Commode Bedside Commode # Voids 1 2 1 - Exam GENERAL: The patient is lying in bed and is not in acute distress. CHEST: The heart rate is regular rate rhythm. No murmurs to auscultation. LUNG: Clear to auscultation bilaterally no wheezing noted throughout. Not labored breathing. ABDOMEN/GI: Bowel sounds present in all 4 quadrants. No tenderness to palpation throughout. NEUROLOGICAL: Higher mental function: The patient is awake, alert, oriented to self, place and time. Patient is following commands. No aphasia and no neglect. Cranial nerves: The pupils are round, equal and reactive to light and accommodation. Visual callejas are full to confrontation throughout. Extraocular movement is intact and horizontal nystagmus is seen when looking to the right or to the left. Patient did have diplopia [id number] on either eye bowling covered he said it was somewhat improved. Facial sensation is normal to touch throughout. The facial strength is normal throughout. Hearing is normal bilaterally to hand rub. Tongue is midline and moved [id number] without any difficulty. No dysarthria is noted. Shoulder shrug is normal bilaterally. Motor: Gait: He seemed somewhat wobbly upon walking but was not leaning towards one side or the other. The strength is right deltoid is 5-, right hand marriage therapist was 4+ to 5-, right Knee extension and flexion are 5- otherwise 5/5 throughout. Normal tone and bulk. Cerebellum: Right finger to nose seemed ataxiac over the right otherwise normal over the left. Heel to mcknight is normal bilaterally. Sensation: Sensation is normal to touch throughout. Reflexes (right/left): Bradchioradialis 3+ bilaterally, patellar 3+ bilaterally Otherwise 2+ throughout. Plantars are downgoing bilaterally. - Labs CBC & Chem 7: 01/15/20 07:37 01/15/20 07:37 Labs: Abnormal Lab Results - Last 24 Hours (Table) 01/15/20 Range/Units 07:37 BUN 26 H (9-20) mg/dL Assessment and Plan Assessment: 54-year-old gentleman with medical history of hemorrhagic stroke (left parietal) 2014 with residual right sided weakness, seizure disorder, who presented emergency department on 01/12/2020 for worsening weakness over the right side, difficulty ambulating and feeling dizzy for the past 4-5 days. He had an episode of having diplopia out of both eyes yesterday lasting 1 hour. His dilantin was increased in last 1-2 weeks from 100mg 1 tab tid to 200mg 1 tab tid and on chronic dose of Lamictal 225mg 1 tab bid. 1. Vertigo, diplopia and feeling wobbly upon walking: Likely due to supratherapeutic Dilantin. 2. Supratherapeutic Dilantin 3. Old left parietal hemorrhagic stroke (2014) with residual right-sided weakness 4. Seizure disorder due to above 5. Hypertension 6. Tobacco use Plan: Decrease the Dilantin ER from 200 mg 1 tablet the 3 times to 100mg ER 1 tab TID and 50mg 1 tab tid (so no ER in hospital) yesterday but continues to have symptoms and Dilantin is supratherapeutic. So I will decrease the Dilantin to 100 mg extended release 1 tablet 3 times a day. Continue Lamictal 250 mg twice a day (from 225mg 1 tab bid home dose) Regarding the patient vertigo the patient was given meclizine 50 mg once in the ED as well as was given Valium 5 mg IVP. Continue meclizine 12.5 mg a 1 tablet twice a day. He refused MRI the brain since she is claustrophobic and he said he'll get as an outpatient but I will think its needed as an inpatient since there is improvem ent in his condition and likely it's the super therapeutic Dilantin the is likely the culprit. The reason for MRI initially was he stated that he was having the dizziness worsening weakness and the was having visual disturbance as well. Patient is also continued on the his home aspirin 81 mg and Lipitor 80 mg daily for secondary stroke prophylaxis. My opinion that the patient had a hemorrhagic stroke and don't see a reason for the aspirin or statin but I'll defer to his the outpatient neurologist. He was notified to continue controlling his hypertension. Patient was counseled on tobacco cessation Upon discharge the patient needs to follow-up with Dr. Lai as an outpatient. The plan was discussed with the patient We'll continue to follow Jose Fernando M.D. Neuro-hospitalist Time with Patient: Less than 30
--- NOTE | 2020-01-15 14:32 | P.PN ---
Subjective Progress Note Date: 01/15/20 This is a 54 y/o male well known to me from my practice c.o 4 day h/o dizzyness with any head movement and walking. He reports some worsening of his right sided hemiplegia. He has a h/o hemorraghic CVA in 2014. he has seizures disorder related to that event and an extensive psych histroy with depression. anxiety and suicidal ideation. Most recetnly He has been tx with Subxone for OUD. He continues to smoke and occasionally use NSAIDS despite my warnings. currently he resting comfortably in the bed. He is able to stand and walk with walker but states he feels dizzy and would otherwise fall without support. He denies any chest pain, pressure, SOB, nausea or vomiting. HE states his wekness is better now Per the pateint, He recently had seen his neurologist and had his Dilantin doubled to 100mg , 2 tabs tid 01/14/2020: pateint was found to have elevated dialntin level, which may be casuing his vertigo sx. He is still refusing an MRI brain today requested by Neuro. Reassuranc and meds d/w pt for his claustraphobia. He reports sx better today a little. no chest paion, sob, nausea or vomitting. Neuro notes reviewed 01/15/2020 complains of double vision, dizziness. Patient's Dilantin level on a dmission was's toxic, initially placed on hold. Later resumed at a lower dose as per neurology with Lamictal increased. Dilantin level trending down, currently 21.8. No seizure activity. Denies chest pain, palpitations or shortness of breath. Continues to refuse inpatient MRI. Objective - Vital Signs Vital signs: Vital Signs Temp 97.7 F 01/15/20 04:00 Pulse 69 01/15/20 12:00 Resp 16 01/15/20 12:00 BP 120/66 01/15/20 12:00 Pulse Ox 91 L 01/15/20 12:00 Intake & Output 01/14/20 01/15/20 01/15/20 18:59 06:59 18:59 Intake Total 480 180 Output Total 300 Balance 480 -300 180 Weight 74 kg Intake: Oral 480 180 Output: Urine 300 Other: Voiding Method Toilet Toilet Toilet Bedside Commode Bedside Commode Bedside Commode # Voids 1 2 1 - Exam - Constitutional General appearance: Present: average body habitus - Neck Neck: Absent: lymphadenopathy Carotids: bilateral: upstroke normal Thyroid: bilateral: normal size - Respiratory Respiratory: bilateral: diminished - Cardiovascular Rhythm: regular Heart sounds: normal: S1, S2 - Neurologic Neurologic: Present: focal deficits (minmal right LE wekaness), right nystagmus - Psychiatric Psychiatric: Present: A&O x's 3 (flat affect) - Allied health notes Allied health notes reviewed: nursing - Labs CBC & Chem 7: 01/15/20 07:37 01/15/20 07:37 Labs: Abnormal Lab Results - Last 24 Hours (Table) 01/15/20 Range/Units 07:37 BUN 26 H (9-20) mg/dL Assessment and Plan Assessment: (1) Vertigo, related to toxic levels of Dilantin, possibly some BPV as well. Current Visit: Yes Status: Acute Code(s): R42 - DIZZINESS AND GIDDINESS SNOMED Code(s): 615961463 (2) H/O intracranial hemorrhage Current Visit: Yes Status: Acute Code(s): Z86.79 - PERSONAL HISTORY OF OTHER DISEASES OF THE CIRCULATORY SYSTEM SNOMED Code(s): 77931293664067214 (3) Hypertension Current Visit: No Status: Acute Priority: Low Code(s): I10 - ESSENTIAL (PRIMARY) HYPERTENSION SNOMED Code(s): 51540157 (4) Nicotine dependence Current Visit: No Status: Acute Priority: Medium Code(s): F17.200 - NICOTINE DEPENDENCE, UNSPECIFIED, UNCOMPLICATED SNOMED Code(s): 02489967 (5) Non-compliant behavior Current Visit: No Status: Acute Code(s): R46.89 - OTHER SYMPTOMS AND SIGNS INVOLVING APPEARANCE AND BEHAVIOR SNOMED Code(s): 772914543 (6) Tobacco abuse Current Visit: No Status: Acute Code(s): Z72.0 - TOBACCO USE SNOMED Code(s): 327531417 (7) Bipolar disorder Current Visit: No Status: Chronic Priority: Low Code(s): F31.9 - BIPOLAR DISORDER, UNSPECIFIED SNOMED Code(s): 81750255 (8) Multiple substance abuse Current Visit: No Status: Chronic Code(s): F19.10 - OTHER PSYCHOACTIVE SUBSTANCE ABUSE, UNCOMPLICATED SNOMED Code(s): 21727032 (9) Personal history of stroke with residual effects Current Visit: No Status: Chronic Priority: Medium Code(s): I69.30 - UNSPECIFIED SEQUELAE OF CEREBRAL INFARCTION SNOMED Code(s): 0374133578735 (10) Seizure disorder Current Visit: No Status: Chronic Priority: Low Code(s): G40.909 - EPILEPSY, UNSP, NOT INTRACTABLE, WITHOUT STATUS EPILEPTICUS SNOMED Code(s): 791816346 (11) Elevated Dilantin level Current Visit: Yes Status: Acute Code(s): R78.89 - FINDING OF OTH SUBSTANCES, NOT NORMALLY FOUND IN BLOOD SNOMED Code(s): 239909368 (12) Medication side effects present, toxic encephalopathy Current Visit: Yes Status: Acute Code(s): T50.905A - ADVERSE EFFECT OF UNSP DRUG/MEDS/BIOL SUBST, INIT SNOMED Code(s): 766790433 Assessment : Continue on current medication regime , prednisone, monitoring and symptomatic treatment. ENT consult in place, recommendations pending. Close monitoring of Dilantin levels, with antiepileptic medication regimen as per neurology Complaining of decreased strength and balance. Evaluated by PT, recommended subacute rehab. Patient in agreement for short-term rehab, requesting [facility]. Discharge planning as early as tomorrow pending final DC recommendations and clearance from neurology. Patient continues to refuse inpatient MRI and will need outpatient open MRI for further evaluation. Smoking cessation reinforced. The impression and plan of care has been dictated as directed. : I performed a history and examination of this patient, discussed the same with the dictator. I agree with the dictator's note ,documented as a scribe. Any additional findings or plans will be noted.
[2020-01-15] MEDS: ATORVASTATIN 80 MG TAB PO SCH (20:36)
[2020-01-15] MEDS: QUEtiapine 100 MG TAB PO SCH (20:37)
[2020-01-16] MEDS: carvediloL 12.5 MG TAB PO SCH ×3 (06:18→16:42)
[2020-01-16] MEDS: TAMSULOSIN 0.4 MG CAP.ER.24H PO SCH (09:35)
[2020-01-16] MEDS: PHENYTOIN SODIUM EXTENDED 100 MG CAP PO SCH (09:35)
[2020-01-16] MEDS: amLODIPine 5 MG TAB PO SCH (09:35)
[2020-01-16] MEDS: hydroCHLOROthiazide 25 MG TAB PO SCH (09:35)
[2020-01-16] MEDS: FAMOTIDINE 20 MG TAB PO SCH ×2 (09:35→20:29)
[2020-01-16] MEDS: lamoTRIgine 25 MG TAB PO SCH ×2 (09:35→20:29)
[2020-01-16] MEDS: MECLIZINE 12.5 MG TAB PO SCH ×2 (09:36→20:30)
[2020-01-16] MEDS: ASPIRIN 81 MG PO SCH (09:36)
[2020-01-16] MEDS: lamoTRIgine 100 MG TAB PO SCH ×2 (09:36→20:30)
[2020-01-16] MEDS: CITALOPRAM HYDROBROMIDE 20 MG TAB PO SCH (09:36)
[2020-01-16] MEDS: predniSONE 20 MG TAB PO SCH (09:37)
[2020-01-16] MEDS: VALSARTAN 160 MG TAB PO SCH (09:37)
[2020-01-16] MEDS: MAGNESIUM OXIDE 400 MG TAB PO SCH (09:37)
[2020-01-16] MEDS ORDERED: lamoTRIgine 100 MG TAB PO STA (10:17)
--- NOTE | 2020-01-16 10:27 | P.PN ---
Subjective Progress Note Date: 01/16/20 Patient was seen at bedside and he said that she continues to feel dizzy, having double vision on both eyes, feels nauseous. It's with rest as well as position. He said that the he received prednisone ordered by the primary team and he felt like he could not tolerate really well. He felt like he could not sleep. Otherwise denies any worsening of his symptoms. Patient free Dilantin level yesterday was 2.0. His total Dilantin level today is 20.2. He did not receive his Dilantin dose in the morning or the afternoon but recently that night at around 2200. Objective - Vital Signs Vital signs: Vital Signs Temp 98.8 F 01/16/20 04:00 Pulse 66 01/16/20 04:00 Resp 18 01/16/20 04:00 BP 106/70 01/16/20 04:00 Pulse Ox 96 01/16/20 04:00 Intake & Output 01/15/20 01/16/20 01/16/20 18:59 06:59 18:59 Intake Total 420 480 Output Total 0 0 Balance 420 480 Weight 74 kg Intake: Oral 420 480 Output: Stool 0 0 Other: Voiding Method Toilet Toilet Bedside Commode Bedside Commode # Voids 1 2 # Bowel Movements 0 - Exam GENERAL: The patient is lying in bed and is not in acute distress. CHEST: The heart rate is regular rate rhythm. No murmurs to auscultation. LUNG: Clear to auscultation bilaterally no wheezing noted throughout. Not labored breathing. ABDOMEN/GI: Bowel sounds present in all 4 quadrants. No tenderness to palpation throughout. NEUROLOGICAL: Higher mental function: The patient is awake, alert, oriented to self, place and time. Patient is following commands. No aphasia and no neglect. Cranial nerves: The pupils are round, equal and reactive to light and accommodation. Visual callejas are full to confrontation throughout. Extraocular movement is intact and no nystagmus. Patient did have diplopia [id number] on either eye bowling covered he said it was somewhat improved. Facial sensation is normal to touch throughout. The facial strength is normal throughout. Hearing is normal bilaterally to hand rub. Tongue is midline and moved [id number] without any difficulty. No dysarthria is noted. Shoulder shrug is normal bilaterally. Motor: Gait: He seemed somewhat wobbly upon walking but was not leaning towards one side or the other. The strength is right deltoid is 5-, right hand heat treat supervisor was 4+ to 5-, right Knee extension and flexion are 5- otherwise 5/5 throughout. Normal tone and bulk. Cerebellum: Right finger to nose seemed ataxiac over the right (but improved compared to yesterday) and slightly over the left. Heel to mcknight is normal bilaterally. Sensation: Sensation is normal to touch throughout. Reflexes (right/left): Bradchioradialis 3+ bilaterally, patellar 3+ bilaterally Otherwise 2+ throughout. Plantars are downgoing bilaterally. - Labs CBC & Chem 7: 01/15/20 07:37 01/15/20 07:37 Assessment and Plan Assessment: 54-year-old gentleman with medical history of hemorrhagic stroke (left parietal) 2014 with residual right sided weakness, seizure disorder, who presented emergency department on 01/12/2020 for worsening weakness over the right side, difficulty ambulating and feeling dizzy for the past 4-5 days. He had an episode of having diplopia out of both eyes yesterday lasting 1 hour. His dilantin was increased in last 1-2 weeks from 100mg 1 tab tid to 200mg 1 tab tid and on chronic dose of Lamictal 225mg 1 tab bid. 1. Vertigo, diplopia and feeling wobbly upon walking: Likely due to supratherapeutic Dilantin 2. Supratherapeutic Dilantin-coming down 3. Old left parietal hemorrhagic stroke (2014) with residual right-sided weakness 4. Seizure disorder due to above 5. Hypertension 6. Tobacco use Plan: Decrease the Dilantin ER from 200 mg 1 tablet the 3 times to 100mg ER 1 tab TID and 50mg 1 tab tid (no ER in hospital) but continued to have symptoms so decreased it yesterday to 100mg ER 1 tab tid (yesterday only received night dose). As a result of his symptoms, patient was to be off Dilantin. I will stop the Dilantin. And I'll place the patient on the Vimpat (Lacosamide), load him with 200 mg a in the morning and then 100 mg twice a day. Patient is in agreement. Continue Lamictal 250 mg twice a day (from 225mg 1 tab bid home dose) Regarding the patient vertigo the patient was given meclizine 50 mg once in the ED as well as was given Valium 5 mg IVP. Continue meclizine 12.5 mg a 1 tablet twice a day. I initially wanted to get MRI of the brain to rule out any intracranial process. He refused MRI the brain since she is claustrophobic and he said he'll get as an outpatient but I will think its needed as an inpatient since there is improvement in his condition and likely it's the super therapeutic Dilantin the is likely the culprit. The reason for MRI initially was he stated that he was having the dizziness worsening weakness and the was having visual disturbance as well. Patient is also continued on the his home aspirin 81 mg and Lipitor 80 mg daily for secondary stroke prophylaxis. My opinion that the patient had a hemorrhagic stroke and don't see a reason for the aspirin or statin but I'll defer to his the outpatient neurologist. He was notified to continue controlling his hypertension. Patient was counseled on tobacco cessation Upon discharge the patient needs to follow-up with Dr. Lai as an outpatient. The plan was discussed with the patient. There is no neurology coverage over the weekend. If needed please Perfect Serve. Jose Fernando M.D. Neuro-hospitalist Time with Patient: Less than 30
--- NOTE | 2020-01-16 11:31 | P.DS ---
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 Current Visit: Yes Status: Acute Code(s): R42 - DIZZINESS AND GIDDINESS SNOMED Code(s): 809659480 (2) H/O intracranial hemorrhage Current Visit: Yes Status: Acute Code(s): Z86.79 - PERSONAL HISTORY OF OTHER DISEASES OF THE CIRCULATORY SYSTEM SNOMED Code(s): 07399791091303065 (3) Hypertension Current Visit: No Status: Acute Priority: Low Code(s): I10 - ESSENTIAL (PRIMARY) HYPERTENSION SNOMED Code(s): 16463362 (4) Nicotine dependence Current Visit: No Status: Acute Priority: Medium Code(s): F17.200 - NICOTINE DEPENDENCE, UNSPECIFIED, UNCOMPLICATED SNOMED Code(s): 02233664 (5) Non-compliant behavior Current Visit: No Status: Acute Code(s): R46.89 - OTHER SYMPTOMS AND SIGNS INVOLVING APPEARANCE AND BEHAVIOR SNOMED Code(s): 708249777 (6) Tobacco abuse Current Visit: No Status: Acute Code(s): Z72.0 - TOBACCO USE SNOMED Code(s): 121856589 (7) Bipolar disorder Current Visit: No Status: Chronic Priority: Low Code(s): F31.9 - BIPOLAR DISORDER, UNSPECIFIED SNOMED Code(s): 57482673 (8) Multiple substance abuse Current Visit: No Status: Chronic Code(s): F19.10 - OTHER PSYCHOACTIVE SUBSTANCE ABUSE, UNCOMPLICATED SNOMED Code(s): 29666341 (9) Personal history of stroke with residual effects Current Visit: No Status: Chronic Priority: Medium Code(s): I69.30 - UNSPECIFIED SEQUELAE OF CEREBRAL INFARCTION SNOMED Code(s): 2783140758274 (10) Seizure disorder Current Visit: No Status: Chronic Priority: Low Code(s): G40.909 - EPILEPSY, UNSP, NOT INTRACTABLE, WITHOUT STATUS EPILEPTICUS SNOMED Code(s): 384785040 (11) Elevated Dilantin level Current Visit: Yes Status: Acute Code(s): R78.89 - FINDING OF OTH SUBSTANCES, NOT NORMALLY FOUND IN BLOOD SNOMED Code(s): 506292831 (12) Medication side effects present, toxic encephalopathy Current Visit: Yes Status: Acute Code(s): T50.905A - ADVERSE EFFECT OF UNSP DRUG/MEDS/BIOL SUBST, INIT SNOMED Code(s): 588658343 Hospital course:This is a 54 y/o male well known to me from my practice c.o 4 day h/o dizzyness with any head movement and walking. He reports some worsening of his right sided hemiplegia. He has a h/o hemorraghic CVA in 2014. he has seizures disorder related to that event and an extensive psych histroy with depression. anxiety and suicidal ideation. Most recetnly He has been tx with Subxone for OUD. He continues to smoke and occasionally use NSAIDS despite my warnings. currently he resting comfortably in the bed. He is able to stand and walk with walker but states he feels dizzy and would otherwise fall without support. He denies any chest pain, pressure, SOB, nausea or vomiting. HE states his wekness is better now Per the pateint, He recently had seen his neurologist and had his Dilantin doubled to 100mg , 2 tabs tid 01/14/2020: pateint was found to have elevated dialntin level, which may be casuing his vertigo sx. He is still refusing an MRI brain today requested by Neuro. Reassuranc and meds d/w pt for his claustraphobia. He reports sx better today a little. no chest paion, sob, nausea or vomitting. Neuro notes reviewed 01/15/2020 complains of double vision, dizziness. Patient's Dilantin level on admission was's toxic, initially placed on hold. Later resumed at a lower dose as per neurology with Lamictal increased. Dilantin level trending down, currently 21.8. No seizure activity. Denies chest pain, palpitations or shortness of breath. Continues to refuse inpatient MRI. Further adjustments of antiepileptic med regimen with Dilantin discontinued as per neurology. Significant clinical improvement. Patient will be discharged to [facility] subacute rehab today in a stable condition with guarded prognosis pending final DC recommendations and clearance from neurology. Please refer to EHR for specific details. The impression and plan of care has been dictated as directed. : I performed a history and examination of this patient, discussed the same with the dictator. I agree with the dictator's note ,documented as a scribe. Any additional findings or plans will be noted. Patient Condition at Discharge: Stable Plan - Discharge Summary Discharge Rx Participant: No New Discharge Prescriptions: New Meclizine [Antivert] 12.5 mg PO BID tab lamoTRIgine [LaMICtal] 50 mg PO BID tab lamoTRIgine [LaMICtal] 200 mg PO BID tab predniSONE 10 mg PO DIRECTED #30 tab Lacosamide [Vimpat] 100 mg PO BID tablet Continue carvediloL [Carvedilol] 25 mg PO BID #28 tablet amLODIPine [Norvasc] 5 mg PO DAILY Atorvastatin [Lipitor] 80 mg PO HS Aspirin [Adult Low Dose Aspirin EC] 81 mg PO DAILY Magnesium Oxide [Mag-Ox] 400 mg PO DAILY #28 tab QUEtiapine FUMARATE [SEROquel] 300 mg PO HS #28 tab Famotidine [Pepcid] 20 mg PO BID #60 tab Valsartan 160 mg PO DAILY hydroCHLOROthiazide [Hydrodiuril] 25 mg PO DAILY Tamsulosin HCl [Flomax] 0.4 mg PO DAILY Citalopram Hydrobromide [CeleXA] 40 mg PO DAILY Discontinued Phenytoin Sodium Extended [Dilantin] 200 mg PO TID #30 capsule Baclofen [Lioresal] 20 mg PO TID lamoTRIgine [LaMICtal] 200 mg PO BID lamoTRIgine [LaMICtal] 25 mg PO BID Discharge Medication List carvediloL [Carvedilol] 25 mg PO BID #28 tablet 09/27/18 [Rx] Aspirin [Adult Low Dose Aspirin EC] 81 mg PO DAILY 10/24/18 [History] Atorvastatin [Lipitor] 80 mg PO HS 10/24/18 [History] amLODIPine [Norvasc] 5 mg PO DAILY 10/24/18 [History] Magnesium Oxide [Mag-Ox] 400 mg PO DAILY #28 tab 11/05/18 [Rx] QUEtiapine FUMARATE [SEROquel] 300 mg PO HS #28 tab 11/05/18 [Rx] Famotidine [Pepcid] 20 mg PO BID #60 tab 11/21/18 [Rx] Tamsulosin HCl [Flomax] 0.4 mg PO DAILY 12/24/19 [History] Valsartan 160 mg PO DAILY 12/24/19 [History] hydroCHLOROthiazide [Hydrodiuril] 25 mg PO DAILY 12/24/19 [History] Citalopram Hydrobromide [CeleXA] 40 mg PO DAILY 01/12/20 [History] Lacosamide [Vimpat] 100 mg PO BID tablet 01/16/20 [Rx] Meclizine [Antivert] 12.5 mg PO BID tab 01/16/20 [Rx] lamoTRIgine [LaMICtal] 50 mg PO BID tab 01/16/20 [Rx] lamoTRIgine [LaMICtal] 200 mg PO BID tab 01/16/20 [Rx] predniSONE 10 mg PO DIRECTED #30 tab 01/16/20 [Rx] Follow up Appointment(s)/Referral(s): Derrick Fisher Jr, DO [Primary Care Provider] - 1 Week (After DC from subacute rehab) Natalee Lai MD [REFERRING] - 2 Weeks Activity/Diet/Wound Care/Special Instructions: Pending final DC recommendations and clearance from neurology. Outpatient open MRI of the brain to rule out any intracranial process. Patient refused secondary to his being claustrophobic.
[2020-01-16] MEDS: ATORVASTATIN 80 MG TAB PO SCH (20:29)
[2020-01-16] MEDS: LACOSAMIDE 50 MG TABLET PO SCH (20:29)
[2020-01-16] MEDS: QUEtiapine 100 MG TAB PO SCH (20:30)
[2020-01-16] MEDS: PHENYTOIN 50 MG CHEWABLE PO SCH (20:34)
[2020-01-17] MEDS: carvediloL 12.5 MG TAB PO SCH (06:31)
[2020-01-17] MEDS: VALSARTAN 160 MG TAB PO SCH (09:40)
[2020-01-17] MEDS: MAGNESIUM OXIDE 400 MG TAB PO SCH (09:40)
[2020-01-17] MEDS: FAMOTIDINE 20 MG TAB PO SCH (09:40)
[2020-01-17] MEDS: MECLIZINE 12.5 MG TAB PO SCH (09:40)
[2020-01-17] MEDS: hydroCHLOROthiazide 25 MG TAB PO SCH (09:40)
[2020-01-17] MEDS: TAMSULOSIN 0.4 MG CAP.ER.24H PO SCH (09:40)
[2020-01-17] MEDS: amLODIPine 5 MG TAB PO SCH (09:40)
[2020-01-17] MEDS: CITALOPRAM HYDROBROMIDE 20 MG TAB PO SCH (09:40)
[2020-01-17] MEDS: lamoTRIgine 100 MG TAB PO SCH (09:41)
[2020-01-17] MEDS: lamoTRIgine 25 MG TAB PO SCH (09:41)
[2020-01-17] MEDS: predniSONE 20 MG TAB PO SCH (09:42)
[2020-01-17] MEDS: LACOSAMIDE 50 MG TABLET PO SCH (09:42)
[2020-01-17] MEDS: ASPIRIN 81 MG PO SCH (09:46)
[2020-01-17 11:19] VITALS: BP 110/68; PULSE 66; RESP 14; TEMP 98
== END 2020-01-17 12:32 | DRG 917 ==
LOC: EC 21:56 → 3SCARD 01-13 01:22 → OBSVTOIN 01-15 08:36
PROVIDERS: ADMIT Family Medicine; ATTEND Family Medicine
DX: T42.0X1A Poisoning by hydantoin derivatives, accidental (unintentional), initial encounter (principal); G92 Toxic encephalopathy; G40.919 Epilepsy, unspecified, intractable, without status epilepticus; I69.351 Hemiplegia and hemiparesis following cerebral infarction affecting right dominant side; E78.5 Hyperlipidemia, unspecified; F17.210 Nicotine dependence, cigarettes, uncomplicated; F31.9 Bipolar disorder, unspecified; F41.0 Panic disorder [episodic paroxysmal anxiety]; G43.909 Migraine, unspecified, not intractable, without status migrainosus; H55.00 Unspecified nystagmus; H53.2 Diplopia; H81.10 Benign paroxysmal vertigo, unspecified ear; I10 Essential (primary) hypertension; I44.0 Atrioventricular block, first degree; R32 Unspecified urinary incontinence; Z79.82 Long term (current) use of aspirin; Z79.899 Other long term (current) drug therapy; Z80.42 Family history of malignant neoplasm of prostate; Z20.828 Contact with and (suspected) exposure to other viral communicable diseases; Z82.49 Family history of ischemic heart disease and other diseases of the circulatory system; Z91.14 Patient's other noncompliance with medication regimen; Z91.19 Patient's noncompliance with other medical treatment and regimen; J32.2 Chronic ethmoidal sinusitis; F40.240 Claustrophobia; F10.11 Alcohol abuse, in remission; F15.11 Other stimulant abuse, in remission; F13.11 Sedative, hypnotic or anxiolytic abuse, in remission; Z60.2 Problems related to living alone; Z79.1 Long term (current) use of non-steroidal anti-inflammatories (NSAID); Z86.010 Personal history of colon polyps; Z98.42 Cataract extraction status, left eye; Z98.41 Cataract extraction status, right eye; Z82.61 Family history of arthritis
CPT/HCPCS: 36415; 70450; 80053; 80175; 80185; 80186; 83735; 85025; 85610; 85730; 87635; 93005; 96374; 99285

== ENCOUNTER 2020-04-12 17:50 | Emergency (ER) | payer OTHER ==
[2020-04-12 17:58] VITALS: RESP 16; TEMP 97.9
[2020-04-12] MEDS ORDERED: SODIUM CHLORIDE 0.9% 1,000 ML IV STA (18:06)
--- NOTE | 2020-04-12 18:10 | ED ---
General Adult HPI - General Chief complaint: Seizure Stated complaint: seizure Time Seen by Provider: 04/12/20 17:52 Source: patient, EMS, RN notes reviewed Mode of arrival: EMS Limitations: no limitations - History of Present Illness Initial comments: Patient is a pleasant 54-year-old male presenting to the emergency department following seizure. Seizure reportedly lasted 5 or 6 minutes. Patient is drowsy at this time. Patient denies any recent illness. Patient denies any seen doses of his medications. Patient states he does get seizures quite frequently, last was around 5 days ago. Patient denies any injury. Patient states he does have right-sided weakness which is chronic from a previous stroke. Patient states this is unchanged - Related Data Home Medications Medication Instructions Recorded Confirmed Aspirin [Adult Low Dose Aspirin EC] 81 mg PO DAILY 10/24/18 04/12/20 Atorvastatin [Lipitor] 80 mg PO HS 10/24/18 04/12/20 amLODIPine [Norvasc] 5 mg PO DAILY 10/24/18 04/12/20 Tamsulosin HCl [Flomax] 0.4 mg PO DAILY 12/24/19 04/12/20 Valsartan 160 mg PO DAILY 12/24/19 04/12/20 hydroCHLOROthiazide [Hydrodiuril] 25 mg PO DAILY 12/24/19 04/12/20 Baclofen [Lioresal] 20 mg PO TID 04/12/20 04/12/20 Buprenorphine HCl/Naloxone HCl 1 film SL DAILY 04/12/20 04/12/20 [Suboxone 4 mg-1 mg Sl Film] Buprenorphine HCl/Naloxone HCl 1 film SL DAILY 04/12/20 04/12/20 [Suboxone 8 mg-2 mg Sl Film] Previous Rx's Medication Instructions Recorded carvediloL [Carvedilol] 25 mg PO BID #28 tablet 09/27/18 Magnesium Oxide [Mag-Ox] 400 mg PO DAILY #28 tab 11/05/18 Famotidine [Pepcid] 20 mg PO BID #60 tab 11/21/18 Lacosamide [Vimpat] 100 mg PO BID 3 Days #6 tab 01/16/20 lamoTRIgine [LaMICtal] 50 mg PO BID tab 01/16/20 lamoTRIgine [LaMICtal] 200 mg PO BID tab 01/16/20 Allergies Allergy/AdvReac Type Severity Reaction Status Date / Time No Known Allergies Allergy Verified 04/12/20 17:58 Review of Systems ROS Statement: Those systems with pertinent positive or pertinent negative responses have been documented in the HPI. ROS Other: All systems not noted in ROS Statement are negative. Constitutional: Denies: fever Eyes: Denies: eye pain ENT: Denies: ear pain Respiratory: Denies: cough Cardiovascular: Denies: chest pain Endocrine: Denies: fatigue Gastrointestinal: Denies: abdominal pain Genitourinary: Denies: dysuria Musculoskeletal: Denies: back pain Skin: Denies: rash Neurological: Denies: headache Past Medical History Past Medical History: CVA/TIA, GERD/Reflux, Hyperlipidemia, Hypertension, Pneumonia, Seizure Disorder Additional Past Medical History / Comment(s): L hemorrhagic stroke-R sided weakness and has had occasions of increased irritability/agitation/isolation, multiple mental health unit admissions with most recent on 10/24/18 [facility] with major depression/suicidal ideations without plan/acute anxiety, uncontrolled seizures, L pneumothorax with chest tube, migraines-has used other people's narcotics in the past per past medical record but pt denies, benign rectal p olyp, etoh last drink more than 10 years ago. History of Any Multi-Drug Resistant Organisms: None Reported Past Surgical History: No Surgical Hx Reported Additional Past Surgical History / Comment(s): COLONOSCOPY POLYPS REMOVED-NEG, bilateral cataract removal, R testicular surgery as a little boy. Past Anesthesia/Blood Transfusion Reactions: No Reported Reaction Additional Past Anesthesia/Blood Transfusion Reaction / Comment(s): Pt has never recieved blood. Past Psychological History: Anxiety, Bipolar, Depression, Panic Disorder Smoking Status: Current every day smoker Past Alcohol Use History: None Reported Past Drug Use History: None Reported - Past Family History Father Family Medical History: Cancer, Hyperlipidemia, Hypertension, Prostate Disorder Additional Family Medical History / Comment(s): PROSTATE CA Mother Family Medical History: Osteoarthritis (OA) Additional Family Medical History / Comment(s): MOM IS 71 General Exam Limitations: no limitations General appearance: in no apparent distress Head exam: Present: atraumatic, normocephalic Eye exam: Present: normal appearance, PERRL, EOMI Neck exam: Present: normal inspection. Absent: tenderness Respiratory exam: Present: normal lung sounds bilaterally Cardiovascular Exam: Present: regular rate, normal rhythm GI/Abdominal exam: Present: soft. Absent: tenderness Extremities exam: Present: normal inspection Neurological exam: Present: alert, CN II-XII intact Expanded Neurological exam: Present: protecting the airway Cranial nerves: EOM's Intact: Normal Sensory exam: Upper Extremity Light Touch: Normal, Lower Extremity Light Touch: Normal Motor strength exam: RUE: 4 (Patient states normal), LUE: 5, RLE: 4 (Patient states normal), LLE: 5 Eye Response: (3) open to voice Motor Response: (6) obeys commands Verbal Response: (5) oriented Psychiatric exam: Present: normal affect, normal mood Skin exam: Present: normal color Course Vital Signs 04/12/20 04/12/20 17:52 19:43 Temperature 97.9 F Pulse Rate 73 66 Respiratory 16 16 Rate Blood Pressure 104/73 105/61 O2 Sat by Pulse 98 96 Oximetry EKG Findings - EKG Comments: EKG Findings:: Sinus rhythm at 74. For screening AV block MS of 226. QRS 112. QT 442. QTC 490. Left axis. Normal QRS. No acute ST change. Medical Decision Making - Medical Decision Making Patient reevaluated and resting comfortably in bed. Patient is awake and appropriate. Patient updated on results and plan. Case was discussed with Dr. Pressley who is familiar with this patient and agreeable with discharge. - Lab Data Result diagrams: 04/12/20 18:22 04/12/20 18:22 Lab Results 04/12/20 04/12/20 04/12/20 Range/Units 18:22 18:22 19:13 WBC 12.4 H (3.8-10.6) k/uL RBC 4.16 L (4.30-5.90) m/uL Hgb 13.8 (13.0-17.5) gm/dL Hct 40.3 (39.0-53.0) % MCV 96.8 (80.0-100.0) fL MCH 33.0 (25.0-35.0) pg MCHC 34.1 (31.0-37.0) g/dL RDW 12.3 (11.5-15.5) % Plt Count 235 (150-450) k/uL MPV 7.8 Neutrophils % 86 % Lymphocytes % 8 % Monocytes % 4 % Eosinophils % 2 % Basophils % 1 % Neutrophils # 10.6 H (1.3-7.7) k/uL Lymphocytes # 1.0 (1.0-4.8) k/uL Monocytes # 0.5 (0-1.0) k/uL Eosinophils # 0.2 (0-0.7) k/uL Basophils # 0.1 (0-0.2) k/uL Sodium 134 L (137-145) mmol/L Potassium 4.2 (3.5-5.1) mmol/L Chloride 102 (98-107) mmol/L Carbon Dioxide 17 L (22-30) mmol/L Anion Gap 15 mmol/L BUN 20 (9-20) mg/dL Creatinine 1.64 H (0.66-1.25) mg/dL Est GFR (CKD-EPI)AfAm 53 (>60 ml/min/1.73 sqM) Est GFR (CKD-EPI)NonAf 46 (>60 ml/min/1.73 sqM) Glucose 126 H (74-99) mg/dL Calcium 9.7 (8.4-10.2) mg/dL Total Bilirubin 0.6 (0.2-1.3) mg/dL AST 20 (17-59) U/L ALT 17 (4-49) U/L Alkaline Phosphatase 65 (38-126) U/L Total Protein 7.3 (6.3-8.2) g/dL Albumin 4.5 (3.5-5.0) g/dL Urine Opiates Screen Not Detected (NotDetected) Ur Oxycodone Screen Not Detected (NotDetected) Urine Methadone Screen Not Detected (NotDetected) Ur Propoxyphene Screen Not Detected (NotDetected) Ur Barbiturates Screen Not Detected (NotDetected) U Tricyclic Antidepress Detected H (NotDetected) Ur Phencyclidine Scrn Not Detected (NotDetected) Ur Amphetamines Screen Not Detected (NotDetected) U Methamphetamines Scrn Not Detected (NotDetected) U Benzodiazepines Scrn Not Detected (NotDetected) Urine Cocaine Screen Not Detected (NotDetected) U Marijuana (THC) Screen Not Detected (NotDetected) Serum Alcohol <10 mg/dL - Radiology Data Radiology results: report reviewed (Computed tomography scan of the brain reveals old left parietal infarct. No acute abdomen abnormality.) Disposition Clinical Impression: Generalized seizure Disposition: HOME SELF-CARE Condition: Stable Instructions (If sedation given, give patient instructions): Recurrent Seizures in Adults (ED) Additional Instructions: Please follow-up with Dr. Pressley in the next couple of days for recheck. Return for uncontrolled seizures, increased weakness, worsening or change in symptoms or other concerns. Is patient prescribed a controlled substance at d/c from ED?: No Referrals: Derrick Fisher Jr, [Primary Care Provider] - 1-2 days Time of Disposition: 19:54
[2020-04-12 18:26] LABS: Basophils # (A) 0.1 k/uL (0-0.2); Basophils % (A) 1 %; Eosinophils # (A) 0.2 k/uL (0-0.7); Eosinophils % (A) 2 %; HCT 40.3 % (39.0-53.0); HGB 13.8 gm/dL (13.0-17.5); Lymphocytes % (A) 8 %; MCHC 34.1 g/dL (31.0-37.0); MCV 96.8 fL (80.0-100.0); Mean Platelet Volume 7.8; Monocytes # (A) 0.5 k/uL (0-1.0); Monocytes % (A) 4 %; Neutrophils # (A) 10.6 k/uL (1.3-7.7); Neutrophils % (A) 86 %; Platelet Count 235 k/uL (150-450); RBC 4.16 m/uL (4.30-5.90); RDW 12.3 % (11.5-15.5); WBC 12.4 k/uL (3.8-10.6)
[2020-04-12 18:36] LABS: ALT 17 U/L (4-49); AST 20 U/L (17-59); African American GFR (CKD) 53 (>60 ml/min/1.73 sqM); Albumin 4.5 g/dL (3.5-5.0); Alcohol <10 mg/dL; Alkaline Phosphatase 65 U/L (38-126); Anion Gap 15 mmol/L; Blood Urea Nitrogen 20 mg/dL (9-20); Calcium 9.7 mg/dL (8.4-10.2); Carbon Dioxide 17 mmol/L (22-30); Chloride 102 mmol/L (98-107); Glucose 126 mg/dL (74-99); Non-African American GFR(CKD) 46 (>60 ml/min/1.73 sqM); Potassium 4.2 mmol/L (3.5-5.1); Sodium 134 mmol/L (137-145); Total Bilirubin 0.6 mg/dL (0.2-1.3); Total Protein 7.3 g/dL (6.3-8.2)
--- NOTE | 2020-04-12 19:26 | CT ---
EXAMINATION TYPE: CT brain wo con DATE OF EXAM: 04/12/2020 COMPARISON: 01/12/2020 HISTORY: Seizure activity. CT DLP: 1090.4 mGycm Automated exposure control for dose reduction was used. There is 3 x 1 cm area of fluid density in the left parietal lobe consistent with old area of encepha lomalacia unchanged. There is no mass effect nor midline shift. There is no sign of intracranial hemo rrhage. Calvarium is intact. There is no evidence of cerebral edema. There is slight enlargement of t he left lateral ventricle compared to the right consistent with the adjacent parietal atrophy and enc ephalomalacia. IMPRESSION: Old infarct left posterior parietal lobe. No acute intracranial abnormality. No change compared to ol d exam.
[2020-04-12 19:42] LABS: Amphetamine Screen,Urine Not Detected (NotDetected); Barbiturate Screen,Urine Not Detected (NotDetected); Benzodiazepines Screen,Urine Not Detected (NotDetected); Cocaine Screen,Urine Not Detected (NotDetected); Methadone Screen, Urine Not Detected (NotDetected); Opiate Screen,Urine Not Detected (NotDetected); Oxycodone Screen, Urine Not Detected (NotDetected); Phencyclidine Screen,Urine Not Detected (NotDetected); Tricyclic Antidepressant,Urine Detected (NotDetected); Urn Cannabinoid Scrn Not Detected (NotDetected)
[2020-04-12 19:47] VITALS: BP 105/61; PULSE 66
[2020-04-12] MEDS ORDERED: LORazepam 2 MG/ML INJ IV STA (19:53)
== END 2020-04-12 20:28 | disposition home or self-care (01) ==
LOC: EC 17:50
DX: G40.909 Epilepsy, unspecified, not intractable, without status epilepticus (principal); I10 Essential (primary) hypertension; E78.5 Hyperlipidemia, unspecified; F17.200 Nicotine dependence, unspecified, uncomplicated; Z79.82 Long term (current) use of aspirin; Z79.899 Other long term (current) drug therapy; Z86.73 Personal history of transient ischemic attack (TIA), and cerebral infarction without residual deficits
CPT/HCPCS: 93005; 80053; 80175; 85025; 80306; 70450; 99284; 96374; 96361 ×2; G0480; J2060; 36415; 80320

== ENCOUNTER 2020-04-26 05:31 | Inpatient (IN) | payer OTHER ==
[2020-04-26 05:35] LABS: Glucose,Whole Blood 96 mg/dL (75-99)
--- NOTE | 2020-04-26 05:45 | ED ---
Altered Mental Status HPI - General Chief Complaint: Altered Mental Status Stated Complaint: Altered Mental Status Time Seen by Provider: 04/26/20 05:38 Source: patient, EMS Mode of arrival: EMS Limitations: altered mental status - History of Present Illness Initial Comments: This patient is 54-year-old man who reportedly has history of previous hemorrh agic stroke as well as seizure disorder, brought by ambulance to be evaluated for altered mental status. It is reported that a friend had come to check on him at 4:30 this morning and found him to be unresponsive. Friend had reported that he had not been acting his usual self for approximately one week. Patient is not able to give any history.. MD Complaint: decreased responsiveness -: unknown Severity: severe Consistency of Symptoms: getting worse Context: seizure disorder - Related Data Home Medications Medication Instructions Recorded Confirmed Aspirin [Adult Low Dose Aspirin EC] 81 mg PO DAILY 10/24/18 04/26/20 Atorvastatin [Lipitor] 80 mg PO HS 10/24/18 04/26/20 Tamsulosin HCl [Flomax] 0.4 mg PO DAILY 12/24/19 04/26/20 Citalopram Hydrobromide [CeleXA] 40 mg PO DAILY 04/26/20 04/26/20 Lacosamide [Vimpat] 150 mg PO BID 04/26/20 04/26/20 Meclizine HCl 25 mg PO DAILY PRN 04/26/20 04/26/20 QUEtiapine FUMARATE [SEROquel] 300 mg PO HS 04/26/20 04/26/20 lamoTRIgine [LaMICtal] 25 mg PO BID 04/26/20 04/26/20 Previous Rx's Medication Instructions Recorded Magnesium Oxide [Mag-Ox] 400 mg PO DAILY #28 tab 11/05/18 Famotidine [Pepcid] 20 mg PO BID #60 tab 11/21/18 lamoTRIgine [LaMICtal] 200 mg PO BID tab 01/16/20 carvediloL [Coreg] 6.25 mg PO BID #60 tab 04/27/20 Allergies Allergy/AdvReac Type Severity Reaction Status Date / Time No Known Allergies Allergy Verified 04/26/20 07:04 Review of Systems ROS Statement: Those systems with pertinent positive or pertinent negative responses have been documented in the HPI. ROS Other: All systems not noted in ROS Statement are negative. Limitations: ROS unobtainable due to patients medical condition Past Medical History Past Medical History: CVA/TIA, GERD/Reflux, Hyperlipidemia, Hypertension, Pneumonia, Seizure Disorder Additional Past Medical History / Comment(s): L hemorrhagic stroke-R sided weakness and has had occasions of increased irritability/agitation/isolation, multiple mental health unit admissions with most recent on 10/24/18 [facility] with major depression/suicidal ideations without plan/acute anxiety, uncontrolled seizures, L pneumothorax with chest tube, migraines-has used other people's narcotics in the past per past medical record but pt denies, benign rectal polyp, etoh last drink more than 10 years ago. History of Any Multi-Drug Resistant Organisms: None Reported Past Surgical History: No Surgical Hx Reported Additional Past Surgical History / Comment(s): COLONOSCOPY POLYPS REMOVED-NEG, bilateral cataract removal, R testicular surgery as a little boy. Past Anesthesia/Blood Transfusion Reactions: No Reported Reaction Additional Past Anesthesia/Blood Transfusion Reaction / Comment(s): Pt has never recieved blood. Past Psychological History: Anxiety, Bipolar, Depression, Panic Disorder Smoking Status: Current every day smoker Past Alcohol Use History: None Reported Past Drug Use History: None Reported - Past Family History Father Family Medical History: Cancer, Hyperlipidemia, Hypertension, Prostate Disorder Additional Family Medical History / Comment(s): PROSTATE CA Mother Family Medical History: Osteoarthritis (OA) Additional Family Medical History / Comment(s): MOM IS 71 General Exam Limitations: no limitations General appearance: obtunded Head exam: Present: atraumatic, normocephalic Eye exam: Present: normal appearance, PERRL. Absent: scleral icterus, conjunctival injection ENT exam: Present: mucous membranes dry Neck exam: Present: normal inspection. Absent: tenderness Respiratory exam: Present: normal lung sounds bilaterally. Absent: respiratory distress, wheezes, rales, rhonchi, stridor, accessory muscle use, decreased breath sounds, prolonged expiratory Cardiovascular Exam: Present: normal rhythm, bradycardia, normal heart sounds. Absent: systolic murmur, diastolic murmur, rubs, gallop GI/Abdominal exam: Present: soft. Absent: distended, tenderness, guarding, rigid, mass Extremities exam: Present: normal inspection, normal capillary refill. Absent: pedal edema, calf tenderness Neurological exam: Present: altered, CN II-XII intact, reflexes normal, other (GCS is 13 (E=4, V=4, M=5). Patient not able to cooperate with neurologic exam.). Absent: motor sensory deficit Skin exam: Present: warm, dry, intact, normal color. Absent: rash Course Vital Signs 04/26/20 04/26/20 04/26/20 05:33 05:55 06:00 Temperature 97.6 F Pulse Rate 58 L 54 L 60 Respiratory 12 14 14 Rate Blood Pressure 110/73 99/60 95/63 O2 Sat by Pulse 96 96 97 Oximetry 04/26/20 04/26/20 04/26/20 06:05 06:15 06:30 Temperature Pulse Rate 62 61 Respiratory 12 14 16 Rate Blood Pressure 106/63 91/59 O2 Sat by Pulse 97 96 Oximetry 04/26/20 04/26/20 07:11 07:21 Temperature 98 F Pulse Rate 61 Respiratory 56 H 16 Rate Blood Pressure 87/53 93/60 O2 Sat by Pulse 96 98 Oximetry - Reevaluation(s) Reevaluation #1: 04/26/20 06:51 Patient is 54-year-old man brought for altered mental status. On arrival, he is unresponsive, and sent directly for CAT scan. On return from CAT scan he is beginning to attempt to speak, and over the next 20-30 minutes was beginning to produce intelligible speech though he is still clearly disoriented. He does follow commands. Patient creatinine markedly elevated versus his baseline, and patient be admitted for further workup of the acute kidney injury and nephrology consultation. Medical Decision Making - Medical Decision Making Patient's 54-year-old man who is sent for evaluation after he was found with altered mental status. The patient's mental status is showing marked improvement from his arrival. The differential diagnosis did include postictal period following seizure, as well as uremia due to the acute kidney injury suspected dehydration. Patient be admitted to have further evaluation and treatment of the kidney function as well as his mental status changes. - Lab Data Result diagrams: 04/28/20 05:49 04/28/20 05:49 Lab Results 04/26/20 04/26/20 04/26/20 Range/Units 05:34 05:47 05:47 WBC 8.3 (3.8-10.6) k/uL RBC 3.98 L (4.30-5.90) m/uL Hgb 13.1 (13.0-17.5) gm/dL Hct 37.5 L (39.0-53.0) % MCV 94.4 (80.0-100.0) fL MCH 33.0 (25.0-35.0) pg MCHC 35.0 (31.0-37.0) g/dL RDW 11.8 (11.5-15.5) % Plt Count 224 (150-450) k/uL MPV 7.7 Neutrophils % 64 % Lymphocytes % 22 % Monocytes % 9 % Eosinophils % 2 % Basophils % 1 % Neutrophils # 5.3 (1.3-7.7) k/uL Lymphocytes # 1.9 (1.0-4.8) k/uL Monocytes # 0.7 (0-1.0) k/uL Eosinophils # 0.2 (0-0.7) k/uL Basophils # 0.1 (0-0.2) k/uL PT 10.1 (9.0-12.0) sec INR 0.9 (<1.2) APTT 23.7 (22.0-30.0) sec Sodium (137-145) mmol/L Potassium (3.5-5.1) mmol/L Chloride (98-107) mmol/L Carbon Dioxide (22-30) mmol/L Anion Gap mmol/L BUN (9-20) mg/dL Creatinine (0.66-1.25) mg/dL Est GFR (CKD-EPI)AfAm (>60 ml/min/1.73 sqM) Est GFR (CKD-EPI)NonAf (>60 ml/min/1.73 sqM) Glucose (74-99) mg/dL POC Glucose (mg/dL) 96 (75-99) mg/dL POC Glu Legal Editor ID Katherine Denson Osmolality (280-301) mosm/kg Plasma Lactic Acid Shahbaz (0.7-2.0) mmol/L Calcium (8.4-10.2) mg/dL Total Bilirubin (0.2-1.3) mg/dL AST (17-59) U/L ALT (4-49) U/L Alkaline Phosphatase (38-126) U/L Ammonia (<30) umol/L Troponin I (0.000-0.034) ng/mL Total Protein (6.3-8.2) g/dL Albumin (3.5-5.0) g/dL Urine Color Urine Appearance (Clear) Urine pH (5.0-8.0) Ur Specific Johnston (1.001-1.035) Urine Protein (Negative) Urine Glucose (UA) (Negative) Urine Ketones (Negative) Urine Blood (Negative) Urine Nitrite (Negative) Urine Bilirubin (Negative) Urine Urobilinogen (<2.0) mg/dL Ur Leukocyte Esterase (Negative) Urine Osmolality (50-1400) mosm/kg Urine Opiates Screen (NotDetected) Ur Oxycodone Screen (NotDetected) Urine Methadone Screen (NotDetected) Ur Propoxyphene Screen (NotDetected) Ur Barbiturates Screen (NotDetected) Lamotrigine (2.0-15.0) ug/mL U Tricyclic Antidepress (NotDetected) Ur Phencyclidine Scrn (NotDetected) Ur Amphetamines Screen (NotDetected) U Methamphetamines Scrn (NotDetected) U Benzodiazepines Scrn (NotDetected) Urine Cocaine Screen (NotDetected) U Marijuana (THC) Screen (NotDetected) Serum Alcohol mg/dL 04/26/20 04/26/20 04/26/20 Range/Units 05:47 05:47 05:47 WBC (3.8-10.6) k/uL RBC (4.30-5.90) m/uL Hgb (13.0-17.5) gm/dL Hct (39.0-53.0) % MCV (80.0-100.0) fL MCH (25.0-35.0) pg MCHC (31.0-37.0) g/dL RDW (11.5-15.5) % Plt Count (150-450) k/uL MPV Neutrophils % % Lymphocytes % % Monocytes % % Eosinophils % % Basophils % % Neutrophils # (1.3-7.7) k/uL Lymphocytes # (1.0-4.8) k/uL Monocytes # (0-1.0) k/uL Eosinophils # (0-0.7) k/uL Basophils # (0-0.2) k/uL PT (9.0-12.0) sec INR (<1.2) APTT (22.0-30.0) sec Sodium 134 L (137-145) mmol/L Potassium 3.8 (3.5-5.1) mmol/L Chloride 97 L (98-107) mmol/L Carbon Dioxide 26 (22-30) mmol/L Anion Gap 11 mmol/L BUN 61 H (9-20) mg/dL Creatinine 5.11 H (0.66-1.25) mg/dL Est GFR (CKD-EPI)AfAm 13 (>60 ml/min/1.73 sqM) Est GFR (CKD-EPI)NonAf 12 (>60 ml/min/1.73 sqM) Glucose 87 (74-99) mg/dL POC Glucose (mg/dL) (75-99) mg/dL POC Glu Legal Editor ID Osmolality (280-301) mosm/kg Plasma Lactic Acid Shahbaz 0.7 (0.7-2.0) mmol/L Calcium 8.8 (8.4-10.2) mg/dL Total Bilirubin 0.3 (0.2-1.3) mg/dL AST 18 (17-59) U/L ALT 9 (4-49) U/L Alkaline Phosphatase 59 (38-126) U/L Ammonia 13 (<30) umol/L Troponin I <0.012 (0.000-0.034) ng/mL Total Protein 6.5 (6.3-8.2) g/dL Albumin 4.1 (3.5-5.0) g/dL Urine Color Urine Appearance (Clear) Urine pH (5.0-8.0) Ur Specific Johnston (1.001-1.035) Urine Protein (Negative) Urine Glucose (UA) (Negative) Urine Ketones (Negative) Urine Blood (Negative) Urine Nitrite (Negative) Urine Bilirubin (Negative) Urine Urobilinogen (<2.0) mg/dL Ur Leukocyte Esterase (Negative) Urine Osmolality (50-1400) mosm/kg Urine Opiates Screen (NotDetected) Ur Oxycodone Screen (NotDetected) Urine Methadone Screen (NotDetected) Ur Propoxyphene Screen (NotDetected) Ur Barbiturates Screen (NotDetected) Lamotrigine (2.0-15.0) ug/mL U Tricyclic Antidepress (NotDetected) Ur Phencyclidine Scrn (NotDetected) Ur Amphetamines Screen (NotDetected) U Methamphetamines Scrn (NotDetected) U Benzodiazepines Scrn (NotDetected) Urine Cocaine Screen (NotDetected) U Marijuana (THC) Screen (NotDetected) Serum Alcohol <10 mg/dL 04/26/20 04/26/20 04/26/20 Range/Units 05:47 05:47 06:17 WBC (3.8-10.6) k/uL RBC (4.30-5.90) m/uL Hgb (13.0-17.5) gm/dL Hct (39.0-53.0) % MCV (80.0-100.0) fL MCH (25.0-35.0) pg MCHC (31.0-37.0) g/dL RDW (11.5-15.5) % Plt Count (150-450) k/uL MPV Neutrophils % % Lymphocytes % % Monocytes % % Eosinophils % % Basophils % % Neutrophils # (1.3-7.7) k/uL Lymphocytes # (1.0-4.8) k/uL Monocytes # (0-1.0) k/uL Eosinophils # (0-0.7) k/uL Basophils # (0-0.2) k/uL PT (9.0-12.0) sec INR (<1.2) APTT (22.0-30.0) sec Sodium (137-145) mmol/L Potassium (3.5-5.1) mmol/L Chloride (98-107) mmol/L Carbon Dioxide (22-30) mmol/L Anion Gap mmol/L BUN (9-20) mg/dL Creatinine (0.66-1.25) mg/dL Est GFR (CKD-EPI)AfAm (>60 ml/min/1.73 sqM) Est GFR (CKD-EPI)NonAf (>60 ml/min/1.73 sqM) Glucose (74-99) mg/dL POC Glucose (mg/dL) (75-99) mg/dL POC Glu Legal Editor ID Osmolality 293 (280-301) mosm/kg Plasma Lactic Acid Shahbaz (0.7-2.0) mmol/L Calcium (8.4-10.2) mg/dL Total Bilirubin (0.2-1.3) mg/dL AST (17-59) U/L ALT (4-49) U/L Alkaline Phosphatase (38-126) U/L Ammonia (<30) umol/L Troponin I (0.000-0.034) ng/mL Total Protein (6.3-8.2) g/dL Albumin (3.5-5.0) g/dL Urine Color Yellow Urine Appearance Clear (Clear) Urine pH 6.0 (5.0-8.0) Ur Specific Johnston 1.014 (1.001-1.035) Urine Protein Trace H (Negative) Urine Glucose (UA) Negative (Negative) Urine Ketones Negative (Negative) Urine Blood Negative (Negative) Urine Nitrite Negative (Negative) Urine Bilirubin Negative (Negative) Urine Urobilinogen <2.0 (<2.0) mg/dL Ur Leukocyte Esterase Negative (Negative) Urine Osmolality (50-1400) mosm/kg Urine Opiates Screen Not Detected (NotDetected) Ur Oxycodone Screen Not Detected (NotDetected) Urine Methadone Screen Not Detected (NotDetected) Ur Propoxyphene Screen Not Detected (NotDetected) Ur Barbiturates Screen Not Detected (NotDetected) Lamotrigine 15.2 H (2.0-15.0) ug/mL U Tricyclic Antidepress Detected H (NotDetected) Ur Phencyclidine Scrn Not Detected (NotDetected) Ur Amphetamines Screen Not Detected (NotDetected) U Methamphetamines Scrn Not Detected (NotDetected) U Benzodiazepines Scrn Detected H (NotDetected) Urine Cocaine Screen Not Detected (NotDetected) U Marijuana (THC) Screen Not Detected (NotDetected) Serum Alcohol mg/dL 04/26/20 Range/Units 06:17 WBC (3.8-10.6) k/uL RBC (4.30-5.90) m/uL Hgb (13.0-17.5) gm/dL Hct (39.0-53.0) % MCV (80.0-100.0) fL MCH (25.0-35.0) pg MCHC (31.0-37.0) g/dL RDW (11.5-15.5) % Plt Count (150-450) k/uL MPV Neutrophils % % Lymphocytes % % Monocytes % % Eosinophils % % Basophils % % Neutrophils # (1.3-7.7) k/uL Lymphocytes # (1.0-4.8) k/uL Monocytes # (0-1.0) k/uL Eosinophils # (0-0.7) k/uL Basophils # (0-0.2) k/uL PT (9.0-12.0) sec INR (<1.2) APTT (22.0-30.0) sec Sodium (137-145) mmol/L Potassium (3.5-5.1) mmol/L Chloride (98-107) mmol/L Carbon Dioxide (22-30) mmol/L Anion Gap mmol/L BUN (9-20) mg/dL Creatinine (0.66-1.25) mg/dL Est GFR (CKD-EPI)AfAm (>60 ml/min/1.73 sqM) Est GFR (CKD-EPI)NonAf (>60 ml/min/1.73 sqM) Glucose (74-99) mg/dL POC Glucose (mg/dL) (75-99) mg/dL POC Glu Legal Editor ID Osmolality (280-301) mosm/kg Plasma Lactic Acid Shahbaz (0.7-2.0) mmol/L Calcium (8.4-10.2) mg/dL Total Bilirubin (0.2-1.3) mg/dL AST (17-59) U/L ALT (4-49) U/L Alkaline Phosphatase (38-126) U/L Ammonia (<30) umol/L Troponin I (0.000-0.034) ng/mL Total Protein (6.3-8.2) g/dL Albumin (3.5-5.0) g/dL Urine Color Urine Appearance (Clear) Urine pH (5.0-8.0) Ur Specific Johnston (1.001-1.035) Urine Protein (Negative) Urine Glucose (UA) (Negative) Urine Ketones (Negative) Urine Blood (Negative) Urine Nitrite (Negative) Urine Bilirubin (Negative) Urine Urobilinogen (<2.0) mg/dL Ur Leukocyte Esterase (Negative) Urine Osmolality 346 (50-1400) mosm/kg Urine Opiates Screen (NotDetected) Ur Oxycodone Screen (NotDetected) Urine Methadone Screen (NotDetected) Ur Propoxyphene Screen (NotDetected) Ur Barbiturates Screen (NotDetected) Lamotrigine (2.0-15.0) ug/mL U Tricyclic Antidepress (NotDetected) Ur Phencyclidine Scrn (NotDetected) Ur Amphetamines Screen (NotDetected) U Methamphetamines Scrn (NotDetected) U Benzodiazepines Scrn (NotDetected) Urine Cocaine Screen (NotDetected) U Marijuana (THC) Screen (NotDetected) Serum Alcohol mg/dL - EKG Data -: EKG Interpreted by Ok EKG shows normal: sinus rhythm, axis (Normal), intervals (FL interval 238 ms, prolonged consistent with first-degree AV block. QRS duration 116 ms, QTC 451 ms, both normal.), QRS complexes (Normal), ST-T waves (Normal) Rate: bradycardia Critical Care Time Critical Care Time: Yes (35 minutes) Disposition Clinical Impression: Altered mental status, Acute kidney injury Disposition: ADMITTED IP TO THIS [facility] Condition: Stable
[2020-04-26] MEDS ORDERED: NALOXONE 0.4 MG/ML 1 ML VIAL IVP STA (05:59)
[2020-04-26 06:14] LABS: Basophils # (A) 0.1 k/uL (0-0.2); Basophils % (A) 1 %; Eosinophils # (A) 0.2 k/uL (0-0.7); Eosinophils % (A) 2 %; HCT 37.5 % (39.0-53.0); HGB 13.1 gm/dL (13.0-17.5); Lymphocytes # (A) 1.9 k/uL (1.0-4.8); Lymphocytes % (A) 22 %; MCV 94.4 fL (80.0-100.0); Mean Platelet Volume 7.7; Monocytes # (A) 0.7 k/uL (0-1.0); Monocytes % (A) 9 %; Neutrophils # (A) 5.3 k/uL (1.3-7.7); Neutrophils % (A) 64 %; Platelet Count 224 k/uL (150-450); RBC 3.98 m/uL (4.30-5.90); RDW 11.8 % (11.5-15.5); WBC 8.3 k/uL (3.8-10.6)
[2020-04-26] MEDS ORDERED: SODIUM CHLORIDE 0.9% 1,000 ML IV ONE ×2 (06:20→06:44)
[2020-04-26 06:22] LABS: INR 0.9 (<1.2); Partial Thromboplastin Time 23.7 sec (22.0-30.0); Prothrombin Time 10.1 sec (9.0-12.0)
[2020-04-26 06:28] LABS: Lactic Acid, Venous 0.7 mmol/L (0.7-2.0)
[2020-04-26 06:29] LABS: ALT 9 U/L (4-49); AST 18 U/L (17-59); African American GFR (CKD) 13 (>60 ml/min/1.73 sqM); Albumin 4.1 g/dL (3.5-5.0); Alcohol <10 mg/dL; Alkaline Phosphatase 59 U/L (38-126); Anion Gap 11 mmol/L; Blood Urea Nitrogen 61 mg/dL (9-20); Calcium 8.8 mg/dL (8.4-10.2); Carbon Dioxide 26 mmol/L (22-30); Chloride 97 mmol/L (98-107); Glucose 87 mg/dL (74-99); Non-African American GFR(CKD) 12 (>60 ml/min/1.73 sqM); Potassium 3.8 mmol/L (3.5-5.1); Sodium 134 mmol/L (137-145); Total Bilirubin 0.3 mg/dL (0.2-1.3); Total Protein 6.5 g/dL (6.3-8.2)
[2020-04-26 06:32] LABS: Appearance,Urine Clear (Clear); Bilirubin,Urine Negative (Negative); Blood,Urine Negative (Negative); Color,Urine Yellow; Glucose,Urine (UA) Negative (Negative); Ketones,Urine Negative (Negative); Leukocyte Esterase,Urine Negative (Negative); Nitrite,Urine Negative (Negative); Protein,Urine Trace (Negative); Specific Gravity,Urine 1.014 (1.001-1.035); Urobilinogen,Urine <2.0 mg/dL (<2.0)
--- NOTE | 2020-04-26 06:37 | CT ---
EXAM: CT Head Without Intravenous Contrast CLINICAL HISTORY: Reason: Altered mental status TECHNIQUE: Axial computed tomography images of the head/brain without intravenous contrast. CTDI is 49.27 mGy and DLP is 1164.40 mGy-cm. This CT exam was performed using one or more of the following dose reduction techniques: automated exposure control, adjustment of the mA and/or kV according to patient size, and/or use of iterative reconstruction technique. COMPARISON: 04/12/20. FINDINGS: Brain: No evidence of acute intracranial hemorrhage. No mass effect or midline shift. Chronic superior parasagittal left frontal lobe cortical infarct. Ventricles: Unremarkable. No ventriculomegaly. Bones/joints: Unremarkable. No acute fracture. Soft tissues: Unremarkable. Sinuses: Again seen is complete opacification of several left-sided ethmoid sinus cells. Remaining paranasal sinuses are well pneumatized. Mastoid air cells: Unremarkable as visualized. No mastoid effusion. IMPRESSION: No evidence of acute intracranial abnormality.
--- NOTE | 2020-04-26 06:40 | XR ---
EXAM: XR Chest, 1 View CLINICAL HISTORY: Reason: altered mental status TECHNIQUE: Frontal view of the chest. COMPARISON: 11/19/18 FINDINGS: Lungs: Lungs are slightly hypoinflated. No evidence of airspace consolidation. No pulmonary edema. Pleural space: Unremarkable. No pneumothorax. Heart: Cardiac silhouette is within normal limits. Mediastinum: No mediastinal widening or shift. Bones/joints: No acute osseous abnormality. IMPRESSION: No definite airspace consolidation or pulmonary edema.
[2020-04-26 06:44] LABS: Amphetamine Screen,Urine Not Detected (NotDetected); Barbiturate Screen,Urine Not Detected (NotDetected); Benzodiazepines Screen,Urine Detected (NotDetected); Cocaine Screen,Urine Not Detected (NotDetected); Methadone Screen, Urine Not Detected (NotDetected); Opiate Screen,Urine Not Detected (NotDetected); Oxycodone Screen, Urine Not Detected (NotDetected); Phencyclidine Screen,Urine Not Detected (NotDetected); Tricyclic Antidepressant,Urine Detected (NotDetected); Urn Cannabinoid Scrn Not Detected (NotDetected)
[2020-04-26] MEDS ORDERED: NALOXONE 0.4 MG/ML 1 ML VIAL IV PRN (06:45)
[2020-04-26] MEDS: SODIUM CHLORIDE 0.9% 1,000 ML IV SCH ×2 (07:02→09:02)
--- NOTE | 2020-04-26 08:17 | US ---
EXAMINATION TYPE: US renals and bladder DATE OF EXAM: 04/26/2020 COMPARISON: US 2018 CLINICAL HISTORY: Acute kidney injury. EXAM MEASUREMENTS: Right Kidney: 10.0 x 5.9 x 5.8 cm Left Kidney: 10.4 x 6.1 x 5.6 cm Right Kidney: No hydronephrosis or masses seen Left Kidney: No hydronephrosis or masses seen Bladder: wnl Bilateral Jets seen: yes There is no evidence for hydronephrosis at this point in time. No nephrolithiasis is seen. Cortical medullary differentiation is maintained. No masses are identified. The urinary bladder is anechoic. Bilateral ureteral jets are seen. IMPRESSION: Normal renal ultrasound.
[2020-04-26] MEDS ORDERED: VALSARTAN 160 MG TAB PO SCH (09:00)
[2020-04-26] MEDS ORDERED: FAMOTIDINE 20 MG TAB PO SCH (09:00)
[2020-04-26] MEDS ORDERED: amLODIPine 5 MG TAB PO SCH (09:00)
[2020-04-26] MEDS ORDERED: carvediloL 12.5 MG TAB PO SCH (09:00)
[2020-04-26 09:55] LABS: Glucose,Whole Blood 119 mg/dL (75-99)
[2020-04-26 11:29] LABS: ABG Base Excess -5.2 mmol/L; ABG HCO3 21 mmol/L (21-25); ABG Oxygen Saturation 94.2 % (94-97); ABG PCO2 39 mmHg (35-45); ABG PH 7.33 (7.35-7.45); ABG PO2 79 mmHg (83-108); ABG TCO2 22 mmol/L (19-24); Allen Test Performed? Yes
[2020-04-26] MEDS: MAGNESIUM OXIDE 400 MG TAB PO SCH (13:45)
[2020-04-26] MEDS: lamoTRIgine 100 MG TAB PO SCH ×2 (13:45→21:19)
[2020-04-26] MEDS: PANTOPRAZOLE 40 MG/10 ML VIAL IVP SCH (13:45)
[2020-04-26] MEDS: TAMSULOSIN 0.4 MG CAP.ER.24H PO SCH (13:45)
[2020-04-26] MEDS: lamoTRIgine 25 MG TAB PO SCH ×2 (13:45→21:18)
[2020-04-26] MEDS: LACOSAMIDE 50 MG TABLET PO SCH ×2 (13:45→21:19)
[2020-04-26] MEDS: NON FORMULARY DRUG (Buprenorphine Hcl/Naloxone Hcl [Suboxone 4 Mg-1 Mg Sl Film] 1 EACH Fil SUBLINGUAL SCH (13:45)
--- NOTE | 2020-04-26 14:59 | P.CNPUL ---
History of Present Illness Consult date: 04/26/20 Chief complaint: Altered mentation History of present illness: 54-year-old male patient with previous history of CVA and chronic right-sided hemiplegia related to previous hemorrhagic stroke and no history of polysubstance abuse came into the emergency department after the patient was found by a friend to be unresponsive and very difficult to arouse. He was found at around 4:30 AM and apparently was not acting himself for almost a week. The patient admitted to take any drugs that he could've put his hand on. Specifically, or he had taken a total of 8 tablets of Xanax and he took this yesterday during the day yesterday and high and strictly for pleasure. He has no intention to harm himself. His urine drug screen was positive for monserrat zodiazepines and tricyclics. Covid 19 testing came back negative. The patient came into the emergency department. He was found to be in acute kidney injury. His creatinine was up to 5.1 with a mean of 61 and this is consistent with an acute kidney injury knowing that his previous renal function was within normal limits. The rest of the electrolytes were within normal. The patient had a blood gas of pH of 7.33 with a pCO2 of 39 and pO2 of 79 this was on room air oxygen. His white cell count is at 8.3 with hemoglobin of 13.1. Coagulation profile was within normal limits. The CAT scan of the brain was within normal limits and showed no acute abnormalities. The chest x-ray was also within normal limits and there was no evidence of any airspace disease or consolidation. Renal ultrasound showed no evidence of any hydronephrosis. The patient was given IV fluids a total of 3 L in the emergency department and patient is currently on normal sed rate of 130 mL an hour. His home medications were resumed including his seizure medication which includes a combination of Lamictal and Vimpat. A Saenz catheter will be inserted to monitor his urine output. Nephrology consultation is been obtained. Note that the patient has history of seizure disorder. He has hypertension and hyperlipidemia. Has difficulty with ambulation. 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 Review of Systems ROS unobtainable: due to mental status Past Medical History Past Medical History: CVA/TIA, GERD/Reflux, Hyperlipidemia, Hypertension, Osteoarthritis (OA), Pneumonia, Prostate Disorder, Seizure Disorder Additional Past Medical History / Comment(s): Pt's friend (Charles) and exgirl friend of 20 yrs states pt has had weakness/falls/ not eating or drinking much and change of behavior for the past few days. She states pt is a very heavy smoker and coffee drinker and has not wanted either past few days, he refused medical help then last night he asked her to call 911. Pt's friend has been staying with him the past few days d/t these concerns. Other hx: L hemorrhagic stroke-R sided weakness and has had occasions of increased irritability/agitation/isolation, multiple mental health unit admissions with major depression/suicidal, anxiety, seizures-unsure when had last seizure, L pneumothorax with chest tube, migraines benign rectal polyp, etoh last drink more than 10 years ago with the exception of one slip, polysubstance abuse/pt is on suboxone, BPH, past vertigo with toxic levels of dilantin. History of Any Multi-Drug Resistant Organisms: None Reported Past Surgical History: No Surgical Hx Reported Additional Past Surgical History / Comment(s): COLONOSCOPY POLYPS REMOVED-NEG, bilateral cataract removal, R testicular surgery as a little boy. Past Anesthesia/Blood Transfusion Reactions: No Reported Reaction Additional Past Anesthesia/Blood Transfusion Reaction / Comment(s): Pt has never recieved blood. Smoking Status: Current every day smoker, Heavy tobacco smoker - Past Family History Father Family Medical History: Cancer, Hyperlipidemia, Hypertension, Osteoarthritis (OA), Prostate Disorder Additional Family Medical History / Comment(s): PROSTATE CA. Father lives in [facility]. Mother Family Medical History: Osteoarthritis (OA) Additional Family Medical History / Comment(s): Mother has mental health issues. Medications and Allergies Home Medications Medication Instructions Recorded Confirmed Type carvediloL [Carvedilol] 25 mg PO BID #28 tablet 09/27/18 04/26/20 Rx Aspirin [Adult Low Dose Aspirin EC] 81 mg PO DAILY 10/24/18 04/26/20 History Atorvastatin [Lipitor] 80 mg PO HS 10/24/18 04/26/20 History amLODIPine [Norvasc] 5 mg PO DAILY 10/24/18 04/26/20 History Magnesium Oxide [Mag-Ox] 400 mg PO DAILY #28 tab 11/05/18 04/26/20 Rx Famotidine [Pepcid] 20 mg PO BID #60 tab 11/21/18 04/26/20 Rx Tamsulosin HCl [Flomax] 0.4 mg PO DAILY 12/24/19 04/26/20 History Valsartan 160 mg PO DAILY 12/24/19 04/26/20 History lamoTRIgine [LaMICtal] 200 mg PO BID tab 01/16/20 04/26/20 Rx Citalopram Hydrobromide [CeleXA] 40 mg PO DAILY 04/26/20 04/26/20 History Lacosamide [Vimpat] 150 mg PO BID 04/26/20 04/26/20 History Meclizine HCl 25 mg PO DAILY PRN 04/26/20 04/26/20 History QUEtiapine FUMARATE [SEROquel] 300 mg PO HS 04/26/20 04/26/20 History hydroCHLOROthiazide 25 mg PO DAILY 04/26/20 04/26/20 History lamoTRIgine [LaMICtal] 25 mg PO BID 04/26/20 04/26/20 History Allergies Allergy/AdvReac Type Severity Reaction Status Date / Time No Known Allergies Allergy Verified 04/26/20 07:04 Physical Exam Vitals: Vital Signs Temp Pulse Resp BP Pulse Ox 04/26/20 14:00 61 14 124/87 97 04/26/20 13:00 51 L 9 L 85/50 96 04/26/20 12:00 51 L 10 L 81/48 94 L 04/26/20 11:00 51 L 11 L 9 L 04/26/20 10:00 97.8 F 62 21 114/67 93 L 04/26/20 09:52 60 14 95 04/26/20 07:21 98 F 61 16 93/60 98 04/26/20 07:11 56 H 87/53 96 04/26/20 06:30 61 16 91/59 96 04/26/20 06:15 62 14 106/63 97 04/26/20 06:05 12 04/26/20 06:00 60 14 95/63 97 04/26/20 05:55 54 L 14 99/60 96 04/26/20 05:33 97.6 F 58 L 12 110/73 96 Intake and Output 04/25/20 04/26/20 04/26/20 22:59 06:59 14:59 Intake Total 520 Output Total 400 650 Balance -400 -130 Intake: IV 520 Sodium Chloride 0.9% 1, 520 000 ml @ 130 mls/hr IV . [id number] [facility] Rx#:[id number] Output: Urine 400 650 Straight 400 Other: Voiding Method Urinal Weight 77.111 kg 77.111 kg Gen. appearance, comfortable likely distress. He is very much lethargic and arousable. Head exam was generally normal. There was no scleral icterus or corneal arcus. Mucous membranes were moist. No the Sominex stiffness. Neck was supple and without jugular venous distension, thyromegaly, or carotid bruits. Carotids were easily palpable bilaterally. There was no adenopathy. Lungs were clear to auscultation and percussion, and with normal diaphragmatic excursion. No wheezes or rales were noted. Cardiac exam revealed the PMI to be normally situated and sized. The rhythm was regular and no extrasystoles were noted during several minutes of auscultation. The first and second heart sounds were normal and physiologic splitting of the second heart sound was noted. There were no murmurs, rubs, clicks, or gallops. Abdominal exam revealed normal bowel sounds. The abdomen was soft, non-tender, and without masses, organomegaly, or appreciable enlargement of the abdominal aorta. Examination of the extremities revealed easily palpable radial, femoral and pedal pulses. There was no cyanosis, clubbing or edema. Examination of the skin revealed no evidence of significant rashes, suspicious appearing nevi or other concerning lesions. Neurologically, the patient is arousable. He is withdrawing to painful stimulation. He does have weakness in his right side and is very to call beverage specialist shahnaz motor weakness. Gait was not assessed. Reflexes are slightly more hyper on the right and the patient has adequate strength on the left and strength on the right is about 4 out of 5. No neck stiffness. There is some facial asymmetry with right sided facial droop. Tongue is in the midline. His pupils are equal and reactive to light. No nystagmus. Results - Laboratory Findings CBC and BMP: 04/26/20 05:47 04/26/20 05:47 ABG ABG pH 7.33 (7.35-7.45) L 04/26/20 11:26 ABG pCO2 39 mmHg (35-45) 02/08/21 11:26 ABG pO2 79 mmHg (83-108) L 04/26/20 11:26 ABG O2 Saturation 94.2 % (94-97) 04/26/20 11:26 PT/INR, D-dimer PT 10.1 sec (9.0-12.0) 04/26/20 05:47 INR 0.9 (<1.2) 04/26/20 05:47 Abnormal lab findings: Abnormal Labs 04/26/20 04/26/20 04/26/20 05:47 05:47 06:17 RBC 3.98 L Hct 37.5 L ABG pH ABG pO2 Sodium 134 L Chloride 97 L BUN 61 H Creatinine 5.11 H POC Glucose (mg/dL) Urine Protein Trace H U Tricyclic Antidepress Detected H U Benzodiazepines Scrn Detected H 04/26/20 04/26/20 09:53 11:26 RBC Hct ABG pH 7.33 L ABG pO2 79 L Sodium Chloride BUN Creatinine POC Glucose (mg/dL) 119 H Urine Protein U Tricyclic Antidepress U Benzodiazepines Scrn - Diagnostic Findings Chest x-ray: image reviewed Assessment and Plan Plan: 1 altered mentation, likely secondary to medication effect as the patient has been taking various drugs most recently Xanax. CAT scan of the brain was negative. No seizure activity has been reported and no clear indication of any and there is no evidence of hydronephrosis. recurrent stroke or seizure activity or postictal state. Also consider the possibility of metabolic encephalopathy. The patient is an acute kidney injury which is obviously a new finding 2 acute kidney injury, likely secondary to intravascular volume depletion. The patient is being resuscitated IV fluids. No evidence of hydronephrosis. A total of 3 L of fluid was given and the patient is currently on a maintenance 3 history of an old left parietal hemorrhagic stroke 2015 with right-sided weakness 4 seizure disorder 5 hypertension 6 major depression with multiple admissions to the psychiatric unit 7 hypertension 8 hyperlipidemia 9 chronic anxiety disorder 10 smoker Plan For now, the obvious concern is that is mental status change and acute kidney injury that has evolved since his last hospitalization. My recommendation is to continue IV fluids. The patient particularly being given a total of 3 L. We'll continue the maintenance at the rate of 130s's an hour. Monitor the electrolytes. Monitor metabolic encephalopathy. Avoid any nephrotoxic agents. Restart Vimpat and Lamictal for now. Watch for any seizure activity. There is no indication for any infections this point in time. We'll continue to follow. We'll monitor the patient ICU for 24 hours.
--- NOTE | 2020-04-26 15:40 | P.HPIM ---
History of Present Illness H&P Date: 04/26/20 Chief Complaint: Altered mental status, brought in by EMS This is a 54-year-old gentleman with past medical history of hemorrhagic stroke, seizure disorder, noncompliant behavior, probably into the ER for altered mental status. ER reports friend discovered him unresponsive at 4:30 in the morning and that patient had not been acting like his normal self for the last week. Brain CT reported no acute intracranial abnormality. EKG reported sinus bradycardia with first degree AV block, troponin negative 1. Afebrile, normal WBC.Covid 19 testing came back negative. Urine drug screen was positive for benzodiazepines and tricyclics. At time of exam, patient unresponsive, systolic Blood pressure dropped into the 60s, is currently on his third liter fluid bolus with report that patient had been Narcan'd in the ER. Maintaining O2 sats in the 90s on 2 L nasal cannula. Sodium 134, potassium 3.8, chloride 97, BUN 61, creatinine 5.11-significantly elevated, baseline 1.1. Hemoglobin 13.1, MCV 94.4, platelets 224. Coagulation profile within normal limits. T bili, LFTs within normal limits. Review of Systems Unable to obtain, secondary to current mental status Past Medical History Past Medical History: CVA/TIA, GERD/Reflux, Hyperlipidemia, Hypertension, Osteoarthritis (OA), Pneumonia, Prostate Disorder, Seizure Disorder Additional Past Medical History / Comment(s): Pt's friend (Charles) and exgirlfriend of 20 yrs states pt has had weakness/falls/ not eating or drinking much and change of behavior for the past few days. She states pt is a very heavy smoker and coffee drinker and has not wanted either past few days, he refused medical help then last night he asked her to call 911. Pt's friend has been staying with him the past few days d/t these concerns. Other hx: L hemorrhagic stroke-R sided weakness and has had occasions of increased irritability/agitation/isolation, multiple mental health unit admissions with major depression/suicidal, anxiety, seizures-unsure when had last seizure, L pneumothorax with chest tube, migraines benign rectal polyp, etoh last drink more than 10 years ago with the exception of one slip, polysubstance abuse/pt is on suboxone, BPH, past vertigo with toxic levels of dilantin. History of Any Multi-Drug Resistant Organisms: None Reported Past Surgical History: No Surgical Hx Reported Additional Past Surgical History / Comment(s): COLONOSCOPY POLYPS REMOVED-NEG, bilateral cataract removal, R testicular surgery as a little boy. Past Anesthesia/Blood Transfusion Reactions: No Reported Reaction Additional Past Anesthesia/Blood Transfusion Reaction / Comment(s): Pt has never recieved blood. Smoking Status: Current every day smoker, Heavy tobacco smoker - Past Family History Father Family Medical History: Cancer, Hyperlipidemia, Hypertension, Osteoarthritis (OA), Prostate Disorder Additional Family Medical History / Comment(s): PROSTATE CA. Father lives in [facility]. Mother Family Medical History: Osteoarthritis (OA) Additional Family Medical History / Comment(s): Mother has mental health issues. Medications and Allergies Home Medications Medication Instructions Recorded Confirmed Type carvediloL [Carvedilol] 25 mg PO BID #28 tablet 09/27/18 04/26/20 Rx Aspirin [Adult Low Dose Aspirin EC] 81 mg PO DAILY 10/24/18 04/26/20 History Atorvastatin [Lipitor] 80 mg PO HS 10/24/18 04/26/20 History amLODIPine [Norvasc] 5 mg PO DAILY 10/24/18 04/26/20 History Magnesium Oxide [Mag-Ox] 400 mg PO DAILY #28 tab 11/05/18 04/26/20 Rx Famotidine [Pepcid] 20 mg PO BID #60 tab 11/21/18 04/26/20 Rx Tamsulosin HCl [Flomax] 0.4 mg PO DAILY 12/24/19 04/26/20 History Valsartan 160 mg PO DAILY 12/24/19 04/26/20 History lamoTRIgine [LaMICtal] 200 mg PO BID tab 01/16/20 04/26/20 Rx Citalopram Hydrobromide [CeleXA] 40 mg PO DAILY 04/26/20 04/26/20 History Lacosamide [Vimpat] 150 mg PO BID 04/26/20 04/26/20 History Meclizine HCl 25 mg PO DAILY PRN 04/26/20 04/26/20 History QUEtiapine FUMARATE [SEROquel] 300 mg PO HS 04/26/20 04/26/20 History hydroCHLOROthiazide 25 mg PO DAILY 04/26/20 04/26/20 History lamoTRIgine [LaMICtal] 25 mg PO BID 04/26/20 04/26/20 History Allergies Allergy/AdvReac Type Severity Reaction Status Date / Time No Known Allergies Allergy Verified 04/26/20 07:04 Physical Exam Vitals: Vital Signs Temp Pulse Resp BP Pulse Ox 04/26/20 07:21 98 F 61 16 93/60 98 04/26/20 07:11 56 H 87/53 96 04/26/20 06:30 61 16 91/59 96 04/26/20 06:15 62 14 106/63 97 04/26/20 06:05 12 04/26/20 06:00 60 14 95/63 97 04/26/20 05:55 54 L 14 99/60 96 04/26/20 05:33 97.6 F 58 L 12 110/73 96 Intake and Output 04/25/20 04/26/20 04/26/20 22:59 06:59 14:59 Output Total 400 Balance -400 Output: Urine 400 Straight 400 Other: Weight 77.111 kg 77.111 kg PHYSICAL EXAM: VITAL SIGNS: As above GENERAL: Lying in bed, Trendelenburg position, unresponsive HEENT: Conjunctivae normal. eyes normal, reactive. Oral mucosa dry. NECK: No JVD. No thyroid enlargement. No LNs CARDIOVASCULAR: S1, S2 regular..No murmur RESPIRATION: Breath sounds diminished in the bases. No rhonchi or crackles. No bronchial breathing. ABDOMEN: Soft, nontender . No guarding. no masses palpable. No ascites, No hepatosplenomegaly.Bowel sounds heard. LEGS: No edema. no swelling PSYCHIATRY: Currently unable to assess NERVOUS SYSTEM: Currently to assess, patient unresponsive, not responding to noxious stimuli, pending transfer to ICU Skin: Warm and dry, no rash Lymphatic system. No LN neck axilla. Results CBC & Chem 7: 04/26/20 05:47 04/26/20 05:47 Labs: Abnormal Lab Results - Last 24 Hours (Table) 04/26/20 04/26/20 04/26/20 Range/Units 05:47 05:47 06:17 RBC 3.98 L (4.30-5.90) m/uL Hct 37.5 L (39.0-53.0) % Sodium 134 L (137-145) mmol/L Chloride 97 L (98-107) mmol/L BUN 61 H (9-20) mg/dL Creatinine 5.11 H (0.66-1.25) mg/dL Urine Protein Trace H (Negative) U Tricyclic Antidepress Detected H (NotDetected) U Benzodiazepines Scrn Detected H (NotDetected) Thrombosis Risk Factor Assmnt - Choose All That Apply Any of the Below Risk Factors Present?: Yes Each Factor Represents 1 point: Age 41-60 years, Medical pt on bed rest Other Risk Factors: Yes Each Risk Factor Represents 2 Points: Patient confined to bed Other congenital or acquired thrombophilia - If yes, enter type in comment: No Thrombosis Risk Factor Assessment Total Risk Factor Score: 4 Thrombosis Risk Factor Assessment Level: Moderate Risk Assessment and Plan Assessment: Acute metabolic encephalopathy, secondary to acute renal failure ,possibly toxic encephalopathy in a patient with noncompliant behavior, tricyclics and benzos on toxicology screen. Acute renal failure secondary to dehydration, currently on third liter fluid bolus, baseline is around 1.1. Hypotension, secondary to the above h/o hemorraghic CVA, left parietal 2015 with residual right-sided weakness History of BPH Nicotine dependence History of hypertension Hyperlipidemia seizure disorder Anxiety Migraine Opiod use disorder, polysubstance abuse Major Depression Anxiety Noncompliant Plan: Continue on current medication regime ,monitoring and symptomatic treatment. Maintain IV fluid resuscitation, nephrology evaluation this morning.renal ultrasound .Saenz catheter .ABGs ordered .Transfer to ICU, discus sed with blue line trimmer team. Seizure precautions, Lamictal and Vimpat levels ordered. Seizure precautions. The impression and plan of care has been dictated as directed. : I performed a history and examination of this patient, discussed the same with the dictator. I agree with the dictator's note ,documented as a scribe. Any additional findings or plans will be noted.
[2020-04-26] MEDS: carvediloL 6.25 MG TAB PO SCH (21:19)
[2020-04-26] MEDS: FAMOTIDINE 20 MG TAB PO SCH (21:20)
[2020-04-26] MEDS: HEPARIN SODIUM,PORCINE 5,000 UNIT/ML 1 ML VIAL SQ SCH (21:20)
--- NOTE | 2020-04-26 22:53 | CONS ---
CONSULTATION REASON FOR CONSULT: Renal failure. HISTORY OF PRESENT ILLNESS: Patient is a 54-year-old male who was admitted to the hospital early this morning with complaints of weakness, lethargy, not feeling well. He has a previous history of seizure disorder, and a friend had found the patient to be unresponsive and called EMS. The patient was quite lethargic this morning and was therefore transferred to the ICU. However, it appears that he was sleepy and did wake up when he was aroused. It also appears that the patient had taken benzodiazepines prior to admission. His creatinine was noted to be 5.1 mg/dL, and a previous creatinine on 04/12/2020 was 1.64, and on 01/14 it was 1.10. I do not see any nonsteroidal anti-inflammatory agents on his medication list. However, patient is maintained on angiotensin receptor blockers. He is also on hydrochlorothiazide. The patient has had good urine output. According to nursing staff, he has been voiding. His potassium was 3.8 mEq/L. Patient's blood pressure was low with systolic in the 80s and he has received fluid boluses. Currently blood pressure later this afternoon was 124/87. Ultrasound showed no evidence of hydronephrosis. His UA is quite benign with urine protein of trace. Random urine sodium was 42. Urine drug screen was positive for benzodiazepines and tricyclic antidepressants. PAST MEDICAL HISTORY: Significant for hypertension, history of CVA, left hemorrhagic stroke with right-sided weakness, previous history of agitation and irritability with hospitalization in mental health unit for major depression and suicidal ideations, history of seizures, history of pneumothorax, migraines, rectal polyp, ETOH abuse, bipolar disorder, panic disorder, cataracts bilaterally. PAST SURGICAL HISTORY: Cataract surgery, right testicular surgery during childhood, colonoscopy with polypectomy. SOCIAL HISTORY: Positive for smoking. The patient did have history of EtOH abuse as well. No other drug abuse at this point. MEDICATIONS: Medications prior to admission included Norvasc, Lipitor, aspirin, Flomax, hydrochlorothiazide, valsartan, baclofen, Coreg, magnesium, Pepcid, Vimpat, Lamictal. ALLERGIES: NONE. REVIEW OF SYSTEMS: Review of systems cannot be obtained, but no ongoing bleeding, fever, nausea, vomiting or abdominal pain. PHYSICAL EXAMINATION: Patient is sleeping. He is arousable but goes back to sleep. His blood pressure was 85/50, heart rate 51 per minute. EXAMINATION OF THE HEART: S1 and S2. EXAMINATION OF LUNGS: Bilateral breath sounds are heard. ABDOMEN: Soft, non-tender. Examination of lower extremities shows no evidence of edema. 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 However, he is not able to communicate at this point. LABS: Labs show sodium 134, potassium 3.8, chloride 97. CO2 is 26, BUN 61, serum creatinine 5.1. UA shows trace protein. Drug screen positive for benzodiazepines and tricyclic antidepressant. Alcohol level less than 10. Coronavirus not detected. ASSESSMENT: 1. Acute kidney injury, mostly prerenal and ischemic acute tubular necrosis associated with low blood pressure, hypovolemia, as well as use of angiotensin receptor blockers. There is no evidence of hydronephrosis on ultrasound and UA is quite benign. Agree with fluid resuscitation. I will discontinue the valsartan and the Coreg for now. Avoid any other nephrotoxic agents. 2. Lethargy and mental status changes, most likely associated with use of benzodiazepine, tricyclic antidepressants. Brain CT was negative for acute findings. 3. History of cerebrovascular accident prior to admission which was hemorrhagic, and history of weakness on the right side. 4. Hypotension associated with hypovolemia; rule out sepsis. No obvious source of infection identified at this time. PLAN: Continue with IV hydration. Discontinue valsartan, Coreg. Repeat labs in a.m. Avoid nephrotoxic agents. Continue with Flomax. Thank you for this consultation. We will continue to follow the patient with you during his hospitalization. MMODL / IJN: [id number] /
[2020-04-27 06:10] LABS: Basophils % (A) 1 %; Eosinophils # (A) 0.1 k/uL (0-0.7); Eosinophils % (A) 3 %; HCT 35.3 % (39.0-53.0); HGB 11.9 gm/dL (13.0-17.5); Lymphocytes # (A) 1.6 k/uL (1.0-4.8); Lymphocytes % (A) 28 %; MCH 32.7 pg (25.0-35.0); MCHC 33.8 g/dL (31.0-37.0); MCV 96.7 fL (80.0-100.0); Mean Platelet Volume 7.7; Monocytes # (A) 0.4 k/uL (0-1.0); Monocytes % (A) 7 %; Neutrophils # (A) 3.4 k/uL (1.3-7.7); Neutrophils % (A) 60 %; Platelet Count 195 k/uL (150-450); RBC 3.66 m/uL (4.30-5.90); RDW 11.9 % (11.5-15.5); WBC 5.7 k/uL (3.8-10.6)
[2020-04-27 06:33] LABS: Calcium 8.3 mg/dL (8.4-10.2); Potassium 3.7 mmol/L (3.5-5.1)
--- NOTE | 2020-04-27 09:34 | P.PN ---
Subjective Progress Note Date: 04/27/20 54-year-old male patient with previous history of CVA and chronic right-sided hemiplegia related to previous hemorrhagic stroke and no history of polysubstance abuse came into the emergency department after the patient was found by a friend to be unresponsive and very difficult to arouse. He was found at around 4:30 AM and apparently was not acting himself for almost a week. The patient admitted to take any drugs that he could've put his hand on. Specifically, or he had taken a total of 8 tablets of Xanax and he took this yesterday during the day yesterday and high and strictly for pleasure. He has no intention to harm himself. His urine drug screen was positive for benzodiazepines and tricyclics. Covid 19 testing came back negative. The patient came into the emergency department. He was found to be in acute kidney injury. His creatinine was up to 5.1 with a mean of 61 and this is consistent with an acute kidney injury knowing that his previous renal function was within normal limits. The rest of the electrolytes were within normal. The patient had a blood gas of pH of 7.33 with a pCO2 of 39 and pO2 of 79 this was on room air oxygen. His white cell count is at 8.3 with hemoglobin of 13.1. Coagulation profile was within normal limits. The CAT scan of the brain was within normal limits and showed no acute abnormalities. The chest x-ray was also within normal limits and there was no evidence of any airspace disease or consolidation. Renal ultrasound showed no evidence of any hydronephrosis. The patient was given IV fluids a total of 3 L in the emergency department and patient is currently on normal sed rate of 130 mL an hour. His home medications were resumed including his seizure medication which includes a combination of Lamictal and Vimpat. A Saenz catheter will be inserted to monitor his urine output. Nephrology consultation is been obtained. Note that the patient has history of seizure disorder. He has hypertension and hyperlipidemia. Has difficulty with ambulation. He needs infertility medical assistant and his is the main caregiver. On 04/27/2020 patient is seen in follow-up in intensive care unit, he is much more arousable today, he is answering questions, stated that he doesn't believe that he was unresponsive when he came in he states that she came in because he could not walk. On room air, and a pulse ox of 95%, afebrile, hemodynamically patient is stable, he is in sinus mechanism, with a rate of 56. No specific complaints, no difficulty breathing, no complaints of chest pain, lung sounds are clear. Labs have been reviewed, showing with blood cell count is 5.7, hemoglobin of 11.9, potassium is 3.7, sodium is 140, chloride is 114, CO2 is 20, BUN is 32 creatinine is 2.33 and renal profile has significantly improved, he continues on 0.9 normal saline at a rate of 130 mL hour. No nausea vomiting or diarrhea. He is tested for coronavirus and tested negative. Objective - Vital Signs Vital signs: Vital Signs Temp 98.3 F 04/27/20 04:00 Pulse 56 L 04/27/20 07:00 Resp 14 04/27/20 07:00 BP 101/61 04/27/20 07:00 Pulse Ox 95 04/27/20 07:00 Intake & Output 04/26/20 04/27/20 04/27/20 18:59 06:59 18:59 Intake Total 1170 1560 Output Total 1500 1670 Balance -330 -110 Weight 77.111 kg 81.3 kg Intake: IV 1170 1560 Sodium Chloride 0.9% 1, 1170 1560 000 ml @ 130 mls/hr IV . Q7H42M [facility] Rx#:[id number] Output: Urine 1500 1670 Other: Voiding Method Indwelling Catheter Indwelling Catheter - Exam GENERAL EXAM: Alert, pleasant, 54-year-old white male, resting comfortably in bed, on room air comfortable in no apparent distress. HEAD: Normocephalic/atraumatic. EYES: Normal reaction of pupils, equal size. Conjunctiva pink, sclera white. NOSE: Clear with pink turbinates. THROAT: No erythema or exudates. NECK: No masses, no JVD, no thyroid enlargement, no adenopathy. CHEST: No chest wall deformity. Symmetrical expansion. LUNGS: Equal air entry with no crackles, wheeze, rhonchi or dullness. CVS: Regular rate and rhythm, normal S1 and S2, no gallops, no murmurs, no rubs ABDOMEN: Soft, nontender. No hepatosplenomegaly, normal bowel sounds, no gu arding or rigidity. EXTREMITIES: No clubbing, no edema, no cyanosis, 2+ pulses and upper and lower e xtremities. MUSCULOSKELETAL: Muscle strength and tone normal. Right sided weakness from history of a stroke SPINE: No scoliosis or deformity SKIN: No rashes CENTRAL NERVOUS SYSTEM: Alert and oriented -3. No focal deficits, tone is normal in all 4 extremities. PSYCHIATRIC: Alert and oriented -3. Appropriate affect. Intact judgment and insight. - Labs CBC & Chem 7: 04/27/20 05:32 04/27/20 05:32 Labs: Abnormal Lab Results - Last 24 Hours (Table) 04/26/20 04/26/20 04/27/20 Range/Units 09:53 11:26 05:32 RBC 3.66 L (4.30-5.90) m/uL Hgb 11.9 L (13.0-17.5) gm/dL Hct 35.3 L (39.0-53.0) % ABG pH 7.33 L (7.35-7.45) ABG pO2 79 L (83-108) mmHg Chloride (98-107) mmol/L Carbon Dioxide (22-30) mmol/L BUN (9-20) mg/dL Creatinine (0.66-1.25) mg/dL POC Glucose (mg/dL) 119 H (75-99) mg/dL Calcium (8.4-10.2) mg/dL 04/27/20 Range/Units 05:32 RBC (4.30-5.90) m/uL Hgb (13.0-17.5) gm/dL Hct (39.0-53.0) % ABG pH (7.35-7.45) ABG pO2 (83-108) mmHg Chloride 114 H (98-107) mmol/L Carbon Dioxide 20 L (22-30) mmol/L BUN 32 H (9-20) mg/dL Creatinine 2.33 H (0.66-1.25) mg/dL POC Glucose (mg/dL) (75-99) mg/dL Calcium 8.3 L (8.4-10.2) mg/dL Assessment and Plan Plan: Assessment: 1 altered mentation, likely secondary to medication effect as the patient has been taking various drugs most recently Xanax. CAT scan of the brain was negative. No seizure activity has been reported and no clear indication of any and there is no evidence of hydronephrosis. recurrent stroke or seizure activity or postictal state. Also consider the possibility of metabolic encephalopathy. The patient is an acute kidney injury which is obviously a new finding. On April 27, 2020 is seen in follow-up in the intensive care unit, remains on IV hydration, today's labs reveal improving renal function and creatinine is down to 2.33 on today's labs. 2 acute kidney injury, likely secondary to intravascular volume depletion, impoving. The patient is being resuscitated IV fluids. No evidence of hydronephrosis. A total of 3 L of fluid was given and the patient is currently on a maintenance 3 history of an old left parietal hemorrhagic stroke 2014 with right-sided weakness 4 seizure disorder 5 hypertension 6 major depression with multiple admissions to the psychiatric unit 7 hypertension 8 hyperlipidemia 9 chronic anxiety disorder 10 smoker Plan: IV hydration, renal profile is improving, patient has had no acute events overnight, vital signs have been stable, no fever or chills, hemodynamically patient has been stable, no nausea vomiting or diarrhea. No seizure activity. Much more awake and alert on today's exam, answering questions appropriately. Lactic patient can be transferred to general medical floor. Continue current medical treatment. I performed a history & physical examination of the patient and discussed their management with my nurse practitioner, Viviana Fields. I reviewed the nurse practitioner's note and agree with the documented findings and plan of care. Lung sounds are positive for diffuse wheezes throughout the lung callejas. The findings and the impression was discussed with the patient. I attest to the documentation by the nurse practitioner.
[2020-04-27] MEDS: MAGNESIUM OXIDE 400 MG TAB PO SCH (09:43)
[2020-04-27] MEDS: carvediloL 6.25 MG TAB PO SCH ×2 (09:43→21:38)
[2020-04-27] MEDS: lamoTRIgine 100 MG TAB PO SCH ×2 (09:43→21:38)
[2020-04-27] MEDS: TAMSULOSIN 0.4 MG CAP.ER.24H PO SCH (09:43)
[2020-04-27] MEDS: PANTOPRAZOLE 40 MG/10 ML VIAL IVP SCH (09:43)
[2020-04-27] MEDS: HEPARIN SODIUM,PORCINE 5,000 UNIT/ML 1 ML VIAL SQ SCH ×2 (09:43→21:37)
[2020-04-27] MEDS: LACOSAMIDE 50 MG TABLET PO SCH ×2 (09:43→21:38)
[2020-04-27] MEDS: lamoTRIgine 25 MG TAB PO SCH ×2 (09:44→21:38)
[2020-04-27] MEDS: NON FORMULARY DRUG (Buprenorphine Hcl/Naloxone Hcl [Suboxone 4 Mg-1 Mg Sl Film] 1 EACH Fil SUBLINGUAL SCH (10:31)
[2020-04-27 11:14] VITALS: BMI 25.7
[2020-04-27] MEDS: SODIUM CHLORIDE 0.9% 1,000 ML IV SCH ×4 (11:43→21:39)
--- NOTE | 2020-04-27 13:40 | P.PN ---
Subjective Progress Note Date: 04/27/20 This is a 54-year-old gentleman with past medical history of hemorrhagic stroke, seizure disorder, noncompliant behavior, probably into the ER for altered mental status. ER reports friend discovered him unresponsive at 4:30 in the morning and that patient had not been acting like his normal self for the last week. Brain CT reported no acute intracranial abnormality. EKG reported sinus bradycardia with first degree AV block, troponin negative 1. Afebrile, normal WBC.Covid 19 testing came back negative. Urine drug screen was positive for benzodiazepines and tricyclics. At time of exam, patient unresponsive, systolic Blood pressure dropped into the 60s, is currently on his third liter fluid bolus with report that patient had been Narcan'd in the ER. Maintaining O2 sats in the 90s on 2 L nasal cannula. Sodium 134, potassium 3.8, chloride 97, BUN 61, creatinine 5.11-significantly elevated, baseline 1.1. Hemoglobin 13.1, MCV 94.4, platelets 224. Coagulation profile within normal limits. T bili, LFTs within normal limits. 04/27/2020 maintained on aggressive IV fluid hydration, significant clinical improvement. BUN 32, creatinine 2.33, vital signs stable, and her O2 sats in the 90s on room air. Afebrile, normal WBC .Telemetry sinus rhythm. No seizure activity. Denies chest pain, palpitations or shortness of breath.Discussed his toxicology screen findings which detected both tricyclics and benzodiazepines- patient denies the same, at this time. Objective - Vital Signs Vital signs: Vital Signs Temp 98.4 F 04/27/20 09:00 Pulse 58 L 04/27/20 11:00 Resp 11 L 04/27/20 11:00 BP 113/59 04/27/20 11:00 Pulse Ox 95 04/27/20 11:00 Intake & Output 04/26/20 04/27/20 04/27/20 18:59 06:59 18:59 Intake Total 1170 1560 750 Output Total 1500 1670 300 Balance -330 -110 450 Weight 77.111 kg 81.3 kg 81.3 kg Intake: IV 1170 1560 390 Sodium Chloride 0.9% 1, 1170 1560 390 000 ml @ 130 mls/hr IV . Q7H42M [facility] Rx#:[id number] Oral 360 Output: Urine 1500 1670 300 Other: Voiding Method Indwelling Catheter Indwelling Catheter Indwelling Catheter - Exam PHYSICAL EXAM: VITAL SIGNS: As above GENERAL: Sitting up in bed, no acute distress, staring up at the ceiling, minimally conversing. HEENT: Conjunctivae normal. eyes normal, reactive. Oral mucosa moist NECK: Supple, No JVD. CARDIOVASCULAR: S1, S2 regular.No murmur RESPIRATION: Breath sounds diminished in the bases. No rhonchi ,crackles, or expiratory wheezes. ABDOMEN: Soft, nondistended, nontender . No guarding. Positive Bowel sounds. LEGS: No edema. no swelling. No calf tenderness. PSYCHIATRY: Alert and oriented 3, mood and affect normal. NERVOUS SYSTEM: Cranial nerves II through XII grossly intact, moves all extremities, no focal deficits Skin: Warm and dry, no rash. - Labs CBC & Chem 7: 04/27/20 05:32 04/27/20 05:32 Labs: Abnormal Lab Results - Last 24 Hours (Table) 04/26/20 04/27/20 04/27/20 Range/Units 05:47 05:32 05:32 RBC 3.66 L (4.30-5.90) m/uL Hgb 11.9 L (13.0-17.5) gm/dL Hct 35.3 L (39.0-53.0) % Chloride 114 H (98-107) mmol/L Carbon Dioxide 20 L (22-30) mmol/L BUN 32 H (9-20) mg/dL Creatinine 2.33 H (0.66-1.25) mg/dL Calcium 8.3 L (8.4-10.2) mg/dL Lamotrigine 15.2 H (2.0-15.0) ug/mL Assessment and Plan Assessment: Acute metabolic encephalopathy, secondary to acute renal failure , toxic encephalopathy in a patient with noncompliant behavior, polysubstance abuse; tricyclics and benzos on toxicology screen. Acute renal failure secondary to dehydration, hypotension, currently on third liter fluid bolus, baseline is around 1.1. Prerenal and ischemic ATN.Significantly improved Hypotension, secondary to the above, resolved with IV fluid hydration h/o hemorraghic CVA, left parietal 2014 with residual right-sided weakness History of BPH Nicotine dependence History of hypertension Hyperlipidemia seizure disorder Anxiety Migraine Opiod use disorder, polysubstance abuse Major Depression Anxiety Noncompliant Plan: Continue on current medication regime ,monitoring and symptomatic treatment. Maintain Seizure precautions, Lamictal and Vimpat levels pending. Stable for transfer out of ICU, MedSurg bed pending. Discussed benzodiazepines and tricyclic abuse; patient declining substance abuse at this time. Patient is on Suboxone, will need for someone to bring in from outside, Discharge planning in progress for tomorrow. The impression and plan of care has been dictated as directed. : I performed a history and examination of this patient, discussed the same with the dictator. I agree with the dictator's note ,documented as a scribe. Any additional findings or plans will be noted.
--- NOTE | 2020-04-27 16:06 | PN ---
PROGRESS NOTE Patient is seen for followup for acute kidney injury. Currently patient is awake, comfortable. He denies any significant complaints. On examination today, blood pressure was 113/59, heart rate 58 per minute. He is afebrile. EXAMINATION OF THE HEART: S1 and S2. EXAMINATION OF LUNGS: Bilateral breath sounds are heard. Decreased breath sounds at bases. ABDOMEN: Soft, non-tender. Examination of lower extremities shows no evidence of edema. 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 Labs show sodium 140, potassium 3.7, chloride 114. CO2 is 20, BUN 32, creatinine 2.3, hemoglobin 11.9 g/dL. ASSESSMENT: 1. Acute kidney injury secondary to hypotension, hypoperfusion and hypovolemia in the setting of use of angiotensin receptor blockers, currently significantly improved with creatinine down from 5.1 to 2.3 mg/dL. Patient has good urine output. His blood pressure is improved. He is maintained on IV fluids. 2. Mental status changes secondary to benzodiazepines as well as renal failure, now improved. 3. Hypotension associated with hypovolemia, improved post resuscitation. No evidence of sepsis. 4. History of cerebrovascular accident prior to admission with right-sided weakness. Current CT scan did not show any significant abnormalities. PLAN: Continue to encourage increased oral intake. Continue physical therapy. Maintain IV fluids. Repeat labs in a.m. Continue to avoid nephrotoxic medications. MMODL / IJN: [id number] /
--- NOTE | 2020-04-27 18:07 | P.CNNES ---
History of Present Illness Consult date: 04/27/20 Requesting physician: Andreas Lemus Reason for Consult: Leg pain, weakness, unable to walk History of Present Illness: Patient is a 54-year-old right-handed male with history of hemorrhagic stroke involving left parietal region in 2014, with residual mild right hemiparesis, came to the hospital yesterday by ambulance at 5:31 AM for altered mental status. According to EMS flow sheet patient's friend was on the scene stated that patient has not been acting normal for about a week. Friend was unaware when she saw him last normal. Friend has mentioned that he has not been eating or drinking and has become increasingly more week. EKG shows sinus rhythm. Patient's blood pressure at the scene was 111/78, pulse rate 56, respirations 16 saturation 96%. Blood glucose was 101. On arrival, vital signs were blood pressure 110/73, pulse rate 58, temperature 97.6 CT head showed no evidence of acute intracranial abnormality. Chronic superior parasagittal left frontal lobe cortical infarct. Chest x-ray showed no definite airspace consolidation or pulmonary edema. EKG shows sinus bradycardia with first-degree AV block. Patient's EEG from 07/17/2016 showed background slowing with no epileptiform activity. Blood test shows WBC 8.3 hemoglobin 13.1, platelets 224. PT/PTT normal. Sodium 134 potassium 3.8, BUN 61, creatinine 5.11. Renal functions are improving now, BUN 32, creatinine 2.33. Ammonia is 13, hepatic panel normal, UA negative, urine drug screen positive for tricyclics and benzodiazepine. Lamictal level was elevated 15.2 (2-15). Blood alcohol level negative, boss virus PCR negative. Patient says that he had stroke about 3-4 years ago, which affected his right side. He has seizure disorder for which she follows up with Dr. Ramirez. Patient states that currently he is taking Vimpat and Lamictal. He gets seizures once every 2 weeks. He does not remember exact doses of seizure medication, as he gets a bubble pack from the pharmacy and he takes the pills as directed. On his medication list, it appears he takes Lamictal 225 mg twice a day and Vimpat 150 mg twice a day. Patient states that he smoked 1 pack per day for 30 years. He quit drinking about 26 years ago. He is drank heavily for 5-10 years. He lives by himself, has no children. On review of records, it appears patient was on Dilantin in the past, as well as Keppra 1500 mg twice a day as well as Dilantin 200 mg 3 times a day in the past. Review of Systems Patient denies any headache problems with vision, hoarseness, sore throat, dysphagia. Denies any chest pain, abdominal pain, nausea vomiting diarrhea. Patient has chronic right-sided weakness. Denies any diplopia. Denies loss of control of urine. Denies dysuria. All other review of systems noncontributory. Past Medical History Past Medical History: CVA/TIA, GERD/Reflux, Hyperlipidemia, Hypertension, Osteoarthritis (OA), Pneumonia, Prostate Disorder, Seizure Disorder Additional Past Medical History / Comment(s): Pt's friend (Charles) and exgirlfrie nd of 20 yrs states pt has had weakness/falls/ not eating or drinking much and change of behavior for the past few days. She states pt is a very heavy smoker and coffee drinker and has not wanted either past few days, he refused medical help then last night he asked her to call 911. Pt's friend has been staying with him the past few days d/t these concerns. Other hx: L hemorrhagic stroke-R sided weakness and has had occasions of increased irritability/agitation/isolation, multiple mental health unit admissions with major depression/suicidal, anxiety, seizures-unsure when had last seizure, L pneumothorax with chest tube, migraines benign rectal polyp, etoh last drink more than 10 years ago with the exception of one slip, polysubstance abuse/pt is on suboxone, BPH, past vertigo with toxic levels of dilantin. History of Any Multi-Drug Resistant Organisms: None Reported Past Surgical History: No Surgical Hx Reported Additional Past Surgical History / Comment(s): COLONOSCOPY POLYPS REMOVED-NEG, bilateral cataract removal, R testicular surgery as a little boy. Past Anesthesia/Blood Transfusion Reactions: No Reported Reaction Additional Past Anesthesia/Blood Transfusion Reaction / Comment(s): Pt has never recieved blood. Smoking Status: Current every day smoker, Heavy tobacco smoker - Past Family History Father Family Medical History: Cancer, Hyperlipidemia, Hypertension, Osteoarthritis (OA), Prostate Disorder Additional Family Medical History / Comment(s): PROSTATE CA. Father lives in [facility]. Mother Family Medical History: Osteoarthritis (OA) Additional Family Medical History / Comment(s): Mother has mental health issues. Medications and Allergies Home Medications Medication Instructions Recorded Confirmed Type Aspirin [Adult Low Dose Aspirin EC] 81 mg PO DAILY 10/24/18 04/26/20 History Atorvastatin [Lipitor] 80 mg PO HS 10/24/18 04/26/20 History Magnesium Oxide [Mag-Ox] 400 mg PO DAILY #28 tab 11/05/18 04/26/20 Rx Famotidine [Pepcid] 20 mg PO BID #60 tab 11/21/18 04/26/20 Rx Tamsulosin HCl [Flomax] 0.4 mg PO DAILY 12/24/19 04/26/20 History lamoTRIgine [LaMICtal] 200 mg PO BID tab 01/16/20 04/26/20 Rx Citalopram Hydrobromide [CeleXA] 40 mg PO DAILY 04/26/20 04/26/20 History Lacosamide [Vimpat] 150 mg PO BID 04/26/20 04/26/20 History Meclizine HCl 25 mg PO DAILY PRN 04/26/20 04/26/20 History QUEtiapine FUMARATE [SEROquel] 300 mg PO HS 04/26/20 04/26/20 History lamoTRIgine [LaMICtal] 25 mg PO BID 04/26/20 04/26/20 History carvediloL [Coreg] 6.25 mg PO BID #60 tab 04/27/20 Rx Allergies Allergy/AdvReac Type Severity Reaction Status Date / Time No Known Allergies Allergy Verified 04/26/20 07:04 Physical Examination - Vital Signs Vital Signs: Vital Signs Temp Pulse Resp BP Pulse Ox 04/27/20 13:00 59 L 108/69 91 L 04/27/20 12:00 98.0 F 59 L 11 L 113/59 93 L 04/27/20 11:00 58 L 11 L 113/59 95 04/27/20 10:00 61 19 93/71 95 04/27/20 09:00 98.4 F 56 L 6 L 95/58 94 L 04/27/20 08:00 54 L 8 L 94/65 95 04/27/20 07:00 56 L 14 101/61 95 04/27/20 06:00 58 L 12 97/54 91 L 04/27/20 05:00 60 12 99/61 94 L 04/27/20 04:00 98.3 F 56 L 14 107/63 94 L 04/27/20 03:00 55 L 16 111/64 93 L 04/27/20 02:00 63 15 85/63 94 L 04/27/20 01:00 55 L 12 91/59 93 L 04/27/20 00:00 98.5 F 52 L 12 98/59 95 04/26/20 23:24 16 04/26/20 23:00 54 L 16 98/53 94 L 04/26/20 22:00 53 L 16 105/69 94 L 04/26/20 21:00 59 L 20 81/60 96 04/26/20 20:00 98.3 F 52 L 16 98/54 12 L 04/26/20 19:00 51 L 12 97/69 96 04/26/20 18:00 50 L 16 78/57 97 04/26/20 17:00 52 L 12 83/50 97 04/26/20 16:00 54 L 16 88/55 97 04/26/20 15:00 52 L 11 L 94/54 95 04/26/20 14:00 61 14 124/87 97 Intake and Output 04/26/20 04/27/20 04/27/20 22:59 06:59 14:59 Intake Total 1040 1170 1640 Output Total 1400 1120 650 Balance -360 50 990 Intake: IV 1040 1170 780 Sodium Chloride 0.9% 1, 1040 1170 780 000 ml @ 130 mls/hr IV . Q7H42M [facility] Rx#:[id number] Oral 860 Output: Urine 1400 1120 650 Other: Voiding Method Indwelling Catheter Indwelling Catheter Indwelling Catheter Weight 81.3 kg 81.3 kg On examination patient is a middle aged male, in no acute distress. Patient is alert and awake fairly well oriented. Patient states that it is Willi solano and the year is 2020. He knows that he is in [facility] in the previous in the current president. On cranial nerve exam her pupils are round and reacting to light, visual callejas are full on confrontation, extraocular muscles are intact with no nystagmus. Face is symmetric, tongue protrudes the midline. Palatal elevation and sensation normal. Hearing and shoulder shrug normal. Facial sensation normal on muscle strength testing patient has mild right pronation no drift. The strength is normal in the left arm and left leg. 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 Reflexes are (right/left) biceps 2/1+, brachioradialis 2/1+, knees 2+/to ankle 2+/1, plantar is up on the right, down on left. Sensory touch is slightly decreased on the right. No ataxia for [id number], tone is slightly increased on the right, and bulk of muscles normal. On generalization is no carotid bruit or murmur, peripheral pulses present, abdomen soft nontender, chest is clear. Results - Laboratory Findings CBC and BMP: 04/27/20 05:32 04/27/20 05:32 Abnormal Lab Findings: Abnormal Labs 04/26/20 04/26/20 04/26/20 05:47 05:47 05:47 RBC 3.98 L Hgb Hct 37.5 L ABG pH ABG pO2 Sodium 134 L Chloride 97 L Carbon Dioxide BUN 61 H Creatinine 5.11 H POC Glucose (mg/dL) Calcium Urine Protein Lamotrigine 15.2 H U Tricyclic Antidepress U Benzodiazepines Scrn 04/26/20 04/26/20 04/26/20 06:17 09:53 11:26 RBC Hgb Hct ABG pH 7.33 L ABG pO2 79 L Sodium Chloride Carbon Dioxide BUN Creatinine POC Glucose (mg/dL) 119 H Calcium Urine Protein Trace H Lamotrigine U Tricyclic Antidepress Detected H U Benzodiazepines Scrn Detected H 04/27/20 04/27/20 05:32 05:32 RBC 3.66 L Hgb 11.9 L Hct 35.3 L ABG pH ABG pO2 Sodium Chloride 114 H Carbon Dioxide 20 L BUN 32 H Creatinine 2.33 H POC Glucose (mg/dL) Calcium 8.3 L Urine Protein Lamotrigine U Tricyclic Antidepress U Benzodiazepines Scrn Assessment and Plan Assessment: * 54-year-old male with history of post stroke epilepsy, was found unresponsive at home. Uncertain if patient had an unwitnessed seizure with postictal state. Patient was also in acute renal failure, therefore metabolic encephalopathy is also in the differential. Current examination shows no new focal findings except for some mild weakness on the right from previous stroke. Some concern about possible taking multiple drugs including Xanax. * Seizure disorder, not well controlled, probably medically intractable. * History of left parietal hemorrhagic stroke in 2015 with residual mild right hemiparesis * Tobacco use * Hypertension * Depression Plan: * Patient's mentation has improved, likely due to improvement in his metabolic encephalopathy. Patient's renal functions are improving. * Continue same dose of Lamictal 225 mg twice a day, and Vimpat 150 mg twice a day * May follow up with his neurologist as outpatient, to further optimize control of seizure disorder.
[2020-04-27] MEDS: FAMOTIDINE 20 MG TAB PO SCH (21:38)
[2020-04-28 05:05] VITALS: RESP 16
[2020-04-28 07:38] LABS: Basophils # (A) 0.1 k/uL (0-0.2); Basophils % (A) 1 %; Eosinophils # (A) 0.2 k/uL (0-0.7); Eosinophils % (A) 4 %; HCT 34.4 % (39.0-53.0); HGB 11.8 gm/dL (13.0-17.5); Lymphocytes # (A) 1.7 k/uL (1.0-4.8); Lymphocytes % (A) 32 %; MCH 33.1 pg (25.0-35.0); MCHC 34.4 g/dL (31.0-37.0); MCV 96.2 fL (80.0-100.0); Mean Platelet Volume 9.1; Monocytes # (A) 0.4 k/uL (0-1.0); Monocytes % (A) 8 %; Neutrophils # (A) 2.9 k/uL (1.3-7.7); Neutrophils % (A) 54 %; Platelet Count 197 k/uL (150-450); RBC 3.57 m/uL (4.30-5.90); RDW 11.9 % (11.5-15.5); WBC 5.4 k/uL (3.8-10.6)
[2020-04-28 07:50] LABS: Potassium 3.5 mmol/L (3.5-5.1)
[2020-04-28 07:51] LABS: Calcium 8.6 mg/dL (8.4-10.2)
[2020-04-28 08:01] VITALS: BP 107/57; PULSE 55; TEMP 98.2
[2020-04-28] MEDS: LACOSAMIDE 50 MG TABLET PO SCH (08:12)
[2020-04-28] MEDS: HEPARIN SODIUM,PORCINE 5,000 UNIT/ML 1 ML VIAL SQ SCH (08:12)
[2020-04-28] MEDS: carvediloL 6.25 MG TAB PO SCH (08:12)
[2020-04-28] MEDS: PANTOPRAZOLE 40 MG/10 ML VIAL IVP SCH (08:12)
[2020-04-28] MEDS: TAMSULOSIN 0.4 MG CAP.ER.24H PO SCH (08:12)
[2020-04-28] MEDS: MAGNESIUM OXIDE 400 MG TAB PO SCH (08:12)
[2020-04-28] MEDS: lamoTRIgine 100 MG TAB PO SCH (08:12)
[2020-04-28] MEDS: SODIUM CHLORIDE 0.9% 1,000 ML IV SCH (08:15)
[2020-04-28] MEDS: NON FORMULARY DRUG (Buprenorphine Hcl/Naloxone Hcl [Suboxone 4 Mg-1 Mg Sl Film] 1 EACH Fil SUBLINGUAL SCH (08:15)
[2020-04-28] MEDS: lamoTRIgine 25 MG TAB PO SCH (09:24)
--- NOTE | 2020-04-28 09:29 | P.DS ---
Providers Date of admission: 04/26/20 06:47 Expected date of discharge: 04/28/20 Attending physician: Srikanth Ervin Consults: 04/26/20 06:46 Consult Physician Routine Consulting Provider: Bobbi Kaufman Consult Reason/Comments: Acute kidney injury Do you want consulting provider notified?: Yes 04/26/20 09:20 Consult Physician Routine Consulting Provider: Andreas Lemus Consult Reason/Comments: icu management Do you want consulting provider notified?: Yes 04/27/20 10:18 Consult Physician Routine Consulting Provider: Soniya Lancaster Consult Reason/Comments: leg pain weakness unable to walk Do you want consulting provider notified?: Yes Primary care physician: [facility] Course: Final Diagnoses: Acute metabolic encephalopathy, secondary to acute renal failure , toxic encephalopathy in a patient with noncompliant behavior, polysubstance abuse; tricyclics and benzos on toxicology screen. Acute renal failure secondary to dehydration, hypotension, currently on third liter fluid bolus, baseline is around 1.1. 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 ER reports friend discovered him unresponsive at 4:30 in the morning and that patient had not been acting like his normal self for the last week. Brain CT reported no acute intracranial abnormality. EKG reported sinus bradycardia with first degree AV block, troponin negative 1. Afebrile, normal WBC.Covid 19 testing came back negative. Urine drug screen was positive for benzodiazepines and tricyclics. At time of exam, patient unresponsive, systolic Blood pressure dropped into the 60s, is currently on his third liter fluid bolus with report that patient had been Narcan'd in the ER. Maintaining O2 sats in the 90s on 2 L nasal cannula. Sodium 134, potassium 3.8, chloride 97, BUN 61, creatinine 5.11-significantly elevated, baseline 1.1. Hemoglobin 13.1, MCV 94.4, platelets 224. Coagulation profile within normal limits. T bili, LFTs within normal limits. 04/27/2020 maintained on aggressive IV fluid hydration, significant clinical improvement. BUN 32, creatinine 2.33, vital signs stable, and her O2 sats in the 90s on room air. Afebrile, normal WBC .Telemetry sinus rhythm. No seizure activity. Denies chest pain, palpitations or shortness of breath.Discussed his toxicology screen findings which detected both tricyclics and benzodiazepines- patient denies the same, at this time. Evaluated by neurology ; recommending continuing same home dose of Lamictal 225 mg twice a day and Vimpat 150 mg twice a day.Significant clinical improvement. Cleared by neurology for discharge. Patient will be discharged home today, in a stable condition with guarded prognosis, pending final DC recommendations and clearance from nephrology. Polysubstance abuse and Smoking cessation reinf orced. No driving reinforced secondary to seizure disorder and possible unwitnessed seizure. The impression and plan of care has been dictated as directed. : I performed a history and examination of this patient, discussed the same with the dictator. I agree with the dictator's note ,documented as a scribe. Any additional findings or plans will be noted. Patient Condition at Discharge: Stable Plan - Discharge Summary Discharge Rx Participant: No New Discharge Prescriptions: New carvediloL [Coreg] 6.25 mg PO BID #60 tab Buprenorphine HCl/Naloxone HCl [Suboxone 4 mg-1 mg Sl Film] 1 film SUBLINGUAL DAILY Lacosamide [Vimpat] 150 mg PO BID 3 Days #6 tab Continue Atorvastatin [Lipitor] 80 mg PO HS Aspirin [Adult Low Dose Aspirin EC] 81 mg PO DAILY Magnesium Oxide [Mag-Ox] 400 mg PO DAILY #28 tab Famotidine [Pepcid] 20 mg PO BID #60 tab Tamsulosin HCl [Flomax] 0.4 mg PO DAILY lamoTRIgine [LaMICtal] 200 mg PO BID tab QUEtiapine FUMARATE [SEROquel] 300 mg PO HS Citalopram Hydrobromide [CeleXA] 40 mg PO DAILY lamoTRIgine [LaMICtal] 25 mg PO BID #0 Changed Meclizine HCl 12.5 mg PO BID PRN #0 PRN Reason: Vertigo Discontinued carvediloL [Carvedilol] 25 mg PO BID #28 tablet amLODIPine [Norvasc] 5 mg PO DAILY Valsartan 160 mg PO DAILY Lacosamide [Vimpat] 150 mg PO BID hydroCHLOROthiazide 25 mg PO DAILY Discharge Medication List Aspirin [Adult Low Dose Aspirin EC] 81 mg PO DAILY 10/24/18 [History] Atorvastatin [Lipitor] 80 mg PO HS 10/24/18 [History] Magnesium Oxide [Mag-Ox] 400 mg PO DAILY #28 tab 11/05/18 [Rx] Famotidine [Pepcid] 20 mg PO BID #60 tab 11/21/18 [Rx] Tamsulosin HCl [Flomax] 0.4 mg PO DAILY 12/24/19 [History] lamoTRIgine [LaMICtal] 200 mg PO BID tab 01/16/20 [Rx] Citalopram Hydrobromide [CeleXA] 40 mg PO DAILY 04/26/20 [History] QUEtiapine FUMARATE [SEROquel] 300 mg PO HS 04/26/20 [History] carvediloL [Coreg] 6.25 mg PO BID #60 tab 04/27/20 [Rx] Buprenorphine HCl/Naloxone HCl [Suboxone 4 mg-1 mg Sl Film] 1 film SUBLINGUAL DAILY 04/28/20 [Rx] Lacosamide [Vimpat] 150 mg PO BID 3 Days #6 tab 04/28/20 [Rx] Meclizine HCl 12.5 mg PO BID PRN #0 04/28/20 [Rx] lamoTRIgine [LaMICtal] 25 mg PO BID #0 04/28/20 [Rx] Follow up Appointment(s)/Referral(s): Derrick Fisher Jr, DO [Primary Care Provider] - 05/03/20 2:15 pm Natalee Lai MD [REFERRING] - 1 Week Ambulatory/Diagnostic Orders: Complete Blood Count w/diff [LAB.AMB] Time Frame: 3 Days, Location: None Selected Activity/Diet/Wound Care/Special Instructions: No driving, seizure precautions. Discharge Disposition: TRANSFER TO SNF/ECF
--- NOTE | 2020-04-28 14:02 | P.PN ---
Subjective Progress Note Date: 04/28/20 54-year-old male patient with previous history of CVA and chronic right-sided hemiplegia related to previous hemorrhagic stroke and no history of polysubstance abuse came into the emergency department after the patient was found by a friend to be unresponsive and very difficult to arouse. He was found at around 4:30 AM and apparently was not acting himself for almost a week. The patient admitted to take any drugs that he could've put his hand on. Specifically, or he had taken a total of 8 tablets of Xanax and he took this yesterday during the day yesterday and high and strictly for pleasure. He has no intention to harm himself. His urine drug screen was positive for benzodiazepines and tricyclics. Covid 19 testing came back negative. The patient came into the emergency department. He was found to be in acute kidney injury. His creatinine was up to 5.1 with a mean of 61 and this is consistent with an acute kidney injury knowing that his previous renal function was within normal limits. The rest of the electrolytes were within normal. The patient had a blood gas of pH of 7.33 with a pCO2 of 39 and pO2 of 79 this was on room air oxygen. His white cell count is at 8.3 with hemoglobin of 13.1. Coagulation profile was within normal limits. The CAT scan of the brain was within normal limits and showed no acute abnormalities. The chest x-ray was also within normal limits and there was no evidence of any airspace disease or consolidation. Renal ultrasound showed no evidence of any hydronephrosis. The patient was given IV fluids a total of 3 L in the emergency department and patient is currently on normal sed rate of 130 mL an hour. His home medications were resumed including his seizure medication which includes a combination of Lamictal and Vimpat. A Saenz catheter will be inserted to monitor his urine output. Nephrology consultation is been obtained. Note that the patient has history of seizure disorder. He has hypertension and hyperlipidemia. Has difficulty with ambulation. He needs special education educational assistant and his is the main caregiver. On 04/27/2020 patient is seen in follow-up in intensive care unit, he is much more arousable today, he is answering questions, stated that he doesn't believe that he was unresponsive when he came in he states that she came in because he could not walk. On room air, and a pulse ox of 95%, afebrile, hemodynamically patient is stable, he is in sinus mechanism, with a rate of 56. No specific complaints, no difficulty breathing, no complaints of chest pain, lung sounds are clear. Labs have been reviewed, showing with blood cell count is 5.7, hemoglobin of 11.9, potassium is 3.7, sodium is 140, chloride is 114, CO2 is 20, BUN is 32 creatinine is 2.33 and renal profile has significantly improved, he continues on 0.9 normal saline at a rate of 130 mL hour. No nausea vomiting or diarrhea. He is tested for coronavirus and tested negative. 04/28/2020 the patient is doing well. He is already been transferred out of the intensive care unit. He is sitting up on a chair and his communicating. No altered mentation. He has chronic focal neurological deficit related to previous CVA. Mother the patient has had a previous hemorrhagic stroke and he has right-sided weakness. His speech is within normal limits. Unfortunately continues to improve in the creatinine is down to 1.39. BUN is at 21. Rest of the electrodes are within normal limits. The patient's at 5.4 with a hemoglobin of 11.8. Platelet count is also within normal limits. Cultures are all within normal limits. Outpatient medication of been all resumed. Objective - Vital Signs Vital signs: Vital Signs Temp 98.2 F 04/28/20 08:00 Pulse 55 L 04/28/20 08:00 Resp 16 04/28/20 08:00 BP 107/57 04/28/20 08:00 Pulse Ox 95 04/28/20 08:00 Intake & Output 04/27/20 04/28/20 04/28/20 18:59 06:59 18:59 Intake Total 2420 Output Total 1300 Balance 1120 Weight 81.3 kg Intake: IV 1560 Sodium Chloride 0.9% 1, 1560 000 ml @ 130 mls/hr IV . Q7H42M [facility] Rx#:[id number] Oral 860 Output: Urine 1300 Other: Voiding Method Indwelling Catheter # Voids 3 # Bowel Movements 1 1 - Exam GENERAL EXAM: Alert, pleasant, 54-year-old white male, resting comfortably in bed, on room air comfortable in no apparent distress. HEAD: Normocephalic/atraumatic. EYES: Normal reaction of pupils, equal size. Conjunctiva pink, sclera white. NOSE: Clear with pink turbinates. THROAT: No erythema or exudates. NECK: No masses, no JVD, no thyroid enlargement, no adenopathy. CHEST: No chest wall deformity. Symmetrical expansion. LUNGS: Equal air entry with no crackles, wheeze, rhonchi or dullness. CVS: Regular rate and rhythm, normal S1 and S2, no gallops, no murmurs, no rubs ABDOMEN: Soft, nontender. No hepatosplenomegaly, normal bowel sounds, no guarding or rigidity. EXTREMITIES: No clubbing, no edema, no cyanosis, 2+ pulses and upper and lower extremities. MUSCULOSKELETAL: Muscle strength and tone normal. Right sided weakness from history of a stroke SPINE: No scoliosis or deformity SKIN: No rashes CENTRAL NERVOUS SYSTEM: Alert and oriented -3. There is right-sided weakness secondary to previous hemorrhagic stroke causing right-sided weakness and deficits. PSYCHIATRIC: Alert and oriented -3. Appropriate affect. Intact judgment and insight. - Labs CBC & Chem 7: 04/28/20 05:49 04/28/20 05:49 Labs: Abnormal Lab Results - Last 24 Hours (Table) 04/28/20 04/28/20 Range/Units 05:49 05:49 RBC 3.57 L (4.30-5.90) m/uL Hgb 11.8 L (13.0-17.5) gm/dL Hct 34.4 L (39.0-53.0) % Chloride 110 H (98-107) mmol/L BUN 21 H (9-20) mg/dL Creatinine 1.39 H (0.66-1.25) mg/dL Glucose 109 H (74-99) mg/dL Assessment and Plan Plan: 1 altered mentation, likely secondary to medication effect as the patient has been taking various drugs most recently Xanax. CAT scan of the brain was negative. No seizure activity has been reported and no clear indication of any and there is no evidence of hydronephrosis. recurrent stroke or seizure activity or postictal state. Also consider the possibility of metabolic encephalopathy. The patient is an acute kidney injury . The patient was initially admitted to the intensive care unit. His mental status completely recovered. He is seen by neurology. He is back to his baseline for now. Consider drug effect/metabolic encephalopathy which is also improving. 2 acute kidney injury, likely secondary to intravascular volume depletion, recovering with fluid resuscitation creatinine is down to 1.39 3 history of an old left parietal hemorrhagic stroke 2014 with right-sided weakness 4 seizure disorder 5 hypertension 6 major depression with multiple admissions to the psychiatric unit 7 hypertension 8 hyperlipidemia 9 chronic anxiety disorder 10 smoker Plan mental status is back to his baseline. Renal function is improving. No other major pulmonary or critical care issue and we are going to sign off the case. Possible discharge either today or tomorrow and I will leave it up to the medica l team to decide on his discharge.
--- NOTE | 2020-04-28 15:12 | PN ---
PROGRESS NOTE significantly it was mostly prerenal secondary to low blood pressure and hypovolemia. JASON inhibitors were held. Creatinine is down to 1.39 today from 5 on initial admission. UA is quite benign and ultrasound showed no significant abnormalities. PHYSICAL EXAMINATION: On examination today, patient is comfortable. Blood pressure is 107/57, heart rate 55 per minute. He is afebrile. EXAMINATION OF THE HEART: S1, S2. EXAMINATION OF THE LUNGS: Bilateral breath sounds are heard. Abdomen is soft, nontender. Examination of lower extremities shows no significant edema. [employer] exam grossly intact. LABS: Labs show sodium 139, potassium 3.5, BUN 21, creatinine 1.39. Hemoglobin 11.8 g/dL. ASSESSMENT: 1. Acute kidney injury, prerenal, currently improved. 2. Volume depletion, now resolved, status post IV fluids. 3. Mental status changes associated with use of benzodiazepines failure, now resolved. 4. History of cerebrovascular accident with right-sided weakness. PLAN: Patient is stable for discharge from nephrology standpoint. Monitor blood pressure at home and if it is elevated, he can resume lower dose of JASON inhibitors. However, at this time blood pressure remains on the lower side. MMODL / IJN: [id number] /
[2020-04-28] MEDS ORDERED: FAMOTIDINE 20 MG TAB PO SCH (21:00)
[2020-04-29] MEDS ORDERED: PANTOPRAZOLE 40 MG TABLET PO SCH (07:30)
== END 2020-04-28 13:39 | disposition home health service (06) | DRG 682 ==
LOC: EC 05:31 → 5NMEDONC 06:47 → 2SICU 10:01 → 4SSUR 04-27 22:18
PROVIDERS: ADMIT Family Medicine; ATTEND Family Medicine
DX: N17.0 Acute kidney failure with tubular necrosis (principal); G92 Toxic encephalopathy; G40.919 Epilepsy, unspecified, intractable, without status epilepticus; I69.351 Hemiplegia and hemiparesis following cerebral infarction affecting right dominant side; E86.1 Hypovolemia; E86.0 Dehydration; E78.5 Hyperlipidemia, unspecified; F10.10 Alcohol abuse, uncomplicated; Z20.822 Contact with and (suspected) exposure to COVID-19; F17.200 Nicotine dependence, unspecified, uncomplicated; F41.0 Panic disorder [episodic paroxysmal anxiety]; F31.9 Bipolar disorder, unspecified; G43.909 Migraine, unspecified, not intractable, without status migrainosus; I10 Essential (primary) hypertension; I44.0 Atrioventricular block, first degree; N40.0 Benign prostatic hyperplasia without lower urinary tract symptoms; H26.9 Unspecified cataract; Z91.19 Patient's noncompliance with other medical treatment and regimen; Z82.49 Family history of ischemic heart disease and other diseases of the circulatory system; Z80.42 Family history of malignant neoplasm of prostate; Z79.899 Other long term (current) drug therapy; Z79.82 Long term (current) use of aspirin; Z82.61 Family history of arthritis; I69.398 Other sequelae of cerebral infarction
CPT/HCPCS: 36415; 36600; 51701; 70450; 71045; 76770; 80048; 80053; 80175; 80235; 80306; 80320; 81003; 82140; 82570; 82805; 83605; 83930; 83935; 84133; 84300; 84484; 85025; 85610; 85730; 87635; 93005; 96360; 96361; 96374; 99291

== ENCOUNTER 2020-04-30 02:42 | Observation (INO) | payer OTHER ==
[2020-04-30] MEDS ORDERED: SODIUM CHLORIDE 0.9% 1,000 ML IV STA ×2 (02:53)
--- NOTE | 2020-04-30 02:59 | ED ---
Seizure HPI - General Chief Complaint: Seizure Stated Complaint: Seizure Time Seen by Provider: 04/30/20 02:43 Source: EMS, RN notes reviewed, old records reviewed Mode of arrival: EMS Limitations: altered mental status - History of Present Illness Initial Comments: This is a 54-year-old male who is a poor historian. Patient presents for unresponsive episode possible seizure-like activity with history of seizures. Patient states he is acting fine feels fine and has no complaints here in the emergency department. MD Complaint: seizure, possible seizure, shaking, other (ams) Description of Episode: loss of consciousness, tonic-clonic movement -: second(s) Witnessed: yes - by bystander Seizure History: known seizure disorder, history of withdrawal seizures, history of non-compliance with treatment Place: home Possible Precipitating Event: none Associated Symptoms: confusion Treatments Prior to Arrival: none - Related Data Home Medications Medication Instructions Recorded Confirmed Aspirin [Adult Low Dose Aspirin EC] 81 mg PO DAILY 10/24/18 04/26/20 Atorvastatin [Lipitor] 80 mg PO HS 10/24/18 04/26/20 Tamsulosin HCl [Flomax] 0.4 mg PO DAILY 12/24/19 04/26/20 Citalopram Hydrobromide [CeleXA] 40 mg PO DAILY 04/26/20 04/26/20 QUEtiapine FUMARATE [SEROquel] 300 mg PO HS 04/26/20 04/26/20 Previous Rx's Medication Instructions Recorded Magnesium Oxide [Mag-Ox] 400 mg PO DAILY #28 tab 11/05/18 Famotidine [Pepcid] 20 mg PO BID #60 tab 11/21/18 lamoTRIgine [LaMICtal] 200 mg PO BID tab 01/16/20 carvediloL [Coreg] 6.25 mg PO BID #60 tab 04/27/20 Buprenorphine HCl/Naloxone HCl 1 film SUBLINGUAL DAILY 04/28/20 [Suboxone 4 mg-1 mg Sl Film] Lacosamide [Vimpat] 150 mg PO BID 3 Days #6 tab 04/28/20 Meclizine HCl 12.5 mg PO BID PRN #0 04/28/20 lamoTRIgine [LaMICtal] 25 mg PO BID #0 04/28/20 Allergies Allergy/AdvReac Type Severity Reaction Status Date / Time No Known Allergies Allergy Verified 04/30/20 02:48 Review of Systems ROS Statement: Those systems with pertinent positive or pertinent negative responses have been documented in the HPI. ROS Other: All systems not noted in ROS Statement are negative. Past Medical History Past Medical History: CVA/TIA, GERD/Reflux, Hyperlipidemia, Hypertension, Pneumonia, Seizure Disorder Additional Past Medical History / Comment(s): L hemorrhagic stroke-R sided weakness and has had occasions of increased irritability/agitation/isolation, multiple mental health unit admissions with most recent on 10/24/18 [facility] with major depression/suicidal ideations without plan/acute anxiety, uncontrolled seizures, L pneumothorax with chest tube, migraines-has used other people's narcotics in the past per past medical record but pt denies, benign rectal polyp, etoh last drink more than 10 years ago. History of Any Multi-Drug Resistant Organisms: None Reported Past Surgical History: No Surgical Hx Reported Additional Past Surgical History / Comment(s): COLONOSCOPY POLYPS REMOVED-NEG, bilateral cataract removal, R testicular surgery as a little boy. Past Anesthesia/Blood Transfusion Reactions: No Reported Reaction Additional Past Anesthesia/Blood Transfusion Reaction / Comment(s): Pt has never recieved blood. Past Psychological History: Anxiety, Bipolar, Depression, Panic Disorder Smoking Status: Current every day smoker Past Alcohol Use History: None Reported Past Drug Use History: None Reported - Past Family History Father Family Medical History: Cancer, Hyperlipidemia, Hypertension, Prostate Disorder Additional Family Medical History / Comment(s): PROSTATE CA Mother Family Medical History: Osteoarthritis (OA) Additional Family Medical History / Comment(s): MOM IS 71 General Exam Limitations: altered mental status General appearance: alert, in no apparent distress Head exam: Present: atraumatic, normocephalic, normal inspection Eye exam: Present: normal appearance, PERRL, EOMI. Absent: scleral icterus, conjunctival injection, periorbital swelling ENT exam: Present: normal exam, mucous membranes moist Neck exam: Present: normal inspection. Absent: tenderness, meningismus, lymphadenopathy Respiratory exam: Present: normal lung sounds bilaterally. Absent: respiratory distress, wheezes, rales, rhonchi, stridor Cardiovascular Exam: Present: regular rate, normal rhythm, normal heart sounds. Absent: systolic murmur, diastolic murmur, rubs, gallop, clicks GI/Abdominal exam: Present: soft, normal bowel sounds. Absent: distended, tenderness, guarding, rebound, rigid Extremities exam: Present: normal inspection, full ROM, normal capillary refill. Absent: tenderness, pedal edema, joint swelling, calf tenderness Back exam: Present: normal inspection Neurological exam: Present: alert, oriented X3, CN II-XII intact Psychiatric exam: Present: normal affect, normal mood Skin exam: Present: warm, dry, intact, normal color. Absent: rash Course Vital Signs 04/30/20 04/30/20 02:44 04:25 Temperature 98.6 F Pulse Rate 78 68 Respiratory 18 16 Rate Blood Pressure 117/75 114/74 O2 Sat by Pulse 99 100 Oximetry - Reevaluation(s) Reevaluation #1: 04/30/20 03:34 Medical records reviewed Reevaluation #2: 04/30/20 04:31 patient acting inappropriate still sleeping but arousable - Consultations Consultation #1: spoke w Dr Fisher and ok for admission, does state patient has substance abuse issues Medical Decision Making - Medical Decision Making 54 male to the ED co ams, possible seizure, weakness, not feeling well. Patient is having persistent sleeping and weakness. - Lab Data Result diagrams: 04/30/20 02:55 04/30/20 02:55 Lab Results 04/30/20 04/30/20 Range/Units 02:55 02:55 WBC 9.3 (3.8-10.6) k/uL RBC 3.95 L (4.30-5.90) m/uL Hgb 12.9 L (13.0-17.5) gm/dL Hct 37.3 L (39.0-53.0) % MCV 94.6 (80.0-100.0) fL MCH 32.7 (25.0-35.0) pg MCHC 34.6 (31.0-37.0) g/dL RDW 11.9 (11.5-15.5) % Plt Count 240 (150-450) k/uL MPV 7.5 Neutrophils % 67 % Lymphocytes % 19 % Monocytes % 8 % Eosinophils % 4 % Basophils % 1 % Neutrophils # 6.2 (1.3-7.7) k/uL Lymphocytes # 1.7 (1.0-4.8) k/uL Monocytes # 0.7 (0-1.0) k/uL Eosinophils # 0.4 (0-0.7) k/uL Basophils # 0.1 (0-0.2) k/uL Sodium 142 (137-145) mmol/L Potassium 3.9 (3.5-5.1) mmol/L Chloride 107 (98-107) mmol/L Carbon Dioxide 25 (22-30) mmol/L Anion Gap 10 mmol/L BUN 17 (9-20) mg/dL Creatinine 1.67 H (0.66-1.25) mg/dL Est GFR (CKD-EPI)AfAm 52 (>60 ml/min/1.73 sqM) Est GFR (CKD-EPI)NonAf 45 (>60 ml/min/1.73 sqM) Glucose 91 (74-99) mg/dL Calcium 9.4 (8.4-10.2) mg/dL Phosphorus 3.8 (2.5-4.5) mg/dL Magnesium 1.8 (1.6-2.3) mg/dL Total Bilirubin 0.5 (0.2-1.3) mg/dL AST 18 (17-59) U/L ALT 15 (4-49) U/L Alkaline Phosphatase 69 (38-126) U/L Total Protein 6.7 (6.3-8.2) g/dL Albumin 4.3 (3.5-5.0) g/dL Salicylates <1.0 mg/dL Acetaminophen <10.0 ug/mL Phenytoin <3.0 ug/mL Valproic Acid <10.0 ug/mL Carbamazepine <3.0 ug/mL [place] <0.2 mmol/L Serum Alcohol <10 mg/dL - EKG Data -: EKG Interpreted by Me (EKG is sinus rhythm 74 [place] 204 QRS 96 QTc 492) Disposition Clinical Impression: Weakness, Altered mental status, Epileptic seizure, generalized Disposition: ADMITTED IP TO THIS HOSP Condition: Fair Is patient prescribed a controlled substance at d/c from ED?: No Referrals: Derrick Fisher Jr, [Primary Care Provider] - 1-2 days
[2020-04-30 03:04] LABS: Basophils # (A) 0.1 k/uL (0-0.2); Basophils % (A) 1 %; Eosinophils # (A) 0.4 k/uL (0-0.7); Eosinophils % (A) 4 %; HCT 37.3 % (39.0-53.0); HGB 12.9 gm/dL (13.0-17.5); Lymphocytes # (A) 1.7 k/uL (1.0-4.8); Lymphocytes % (A) 19 %; MCH 32.7 pg (25.0-35.0); MCHC 34.6 g/dL (31.0-37.0); MCV 94.6 fL (80.0-100.0); Mean Platelet Volume 7.5; Monocytes # (A) 0.7 k/uL (0-1.0); Monocytes % (A) 8 %; Neutrophils # (A) 6.2 k/uL (1.3-7.7); Neutrophils % (A) 67 %; Platelet Count 240 k/uL (150-450); RBC 3.95 m/uL (4.30-5.90); RDW 11.9 % (11.5-15.5); WBC 9.3 k/uL (3.8-10.6)
[2020-04-30 03:22] LABS: ALT 15 U/L (4-49); AST 18 U/L (17-59); Acetaminophen <10.0 ug/mL; African American GFR (CKD) 52 (>60 ml/min/1.73 sqM); Albumin 4.3 g/dL (3.5-5.0); Alcohol <10 mg/dL; Alkaline Phosphatase 69 U/L (38-126); Anion Gap 10 mmol/L; Blood Urea Nitrogen 17 mg/dL (9-20); Calcium 9.4 mg/dL (8.4-10.2); Carbon Dioxide 25 mmol/L (22-30); Chloride 107 mmol/L (98-107); Glucose 91 mg/dL (74-99); Magnesium 1.8 mg/dL (1.6-2.3); Non-African American GFR(CKD) 45 (>60 ml/min/1.73 sqM); Phosphorus 3.8 mg/dL (2.5-4.5); Potassium 3.9 mmol/L (3.5-5.1); Salicylate <1.0 mg/dL; Sodium 142 mmol/L (137-145); Total Bilirubin 0.5 mg/dL (0.2-1.3); Total Protein 6.7 g/dL (6.3-8.2)
[2020-04-30 04:06] LABS: Carbamazepine (Tegretol) <3.0 ug/mL; Lithium <0.2 mmol/L; Phenytoin (Dilantin) <3.0 ug/mL
[2020-04-30 04:19] LABS: Valproic Acid (Depakene) <10.0 ug/mL
[2020-04-30] MEDS ORDERED: NALOXONE 0.4 MG/ML 1 ML VIAL IV PRN (04:22)
[2020-04-30] MEDS: DEXTROSE 5%-0.45% NACL 1,000 ML IV SCH ×2 (05:19→19:40)
[2020-04-30] MEDS ORDERED: MECLIZINE 25 MG TAB PO PRN (09:28)
[2020-04-30] MEDS ORDERED: lamoTRIgine 25 MG TAB PO SCH (09:30)
[2020-04-30] MEDS ORDERED: HALOPERIDOL LACTATE 5 MG/ML 1 ML VIAL IM ONE (11:22)
[2020-04-30] MEDS ORDERED: HALOPERIDOL LACTATE 5 MG/ML 1 ML VIAL IM PRN ×2 (11:22→13:36)
[2020-04-30] MEDS: ENOXAPARIN 40 MG/0.4 ML SYRINGE SQ SCH (11:58)
[2020-04-30] MEDS: TAMSULOSIN 0.4 MG CAP.ER.24H PO SCH (12:05)
[2020-04-30] MEDS: lamoTRIgine 100 MG TAB PO SCH ×2 (12:05→20:35)
[2020-04-30] MEDS: LACOSAMIDE 150 MG TABLET PO SCH ×2 (12:05→20:35)
--- NOTE | 2020-04-30 13:44 | P.CN ---
Psychiatric Consult - . Consult date: 04/30/20 Consult:: 04/30/20 13:40 Patient is a 54-year-old male who is single unemployed and currently lives with his friend. Psychiatrist consulted for altered mental status. Patient was brought into the ER for a witnessed seizure. Patient apparently had been denying any complaints in the ER however due to confusion and inappropriate behaviors and a history of noncompliance patient was admitted to the medical floors. Patient does have a history of seizures substance abuse and bipolar disorder. Patient's nurse claims the patient was aggressive earlier when he first came onto the medical floors however has been fairly somnolent since then. Patient was seen at the bedside by writer producer and writer producer attempted to wake up patient several times however patient was not responding and was somnolent. Plan: Due to patient's history of aggression/agitation will order Haldol IM and by mouth prns. Can continue with current medications including Seroquel, Lamictal and Celexa. It is likely that patient is delirious versus having postictal conf usion. Was not able to do a evaluation and will have weekend psychiatrist re- attempt to evaluate patient tomorrow to give any further recommendations.
--- NOTE | 2020-04-30 15:25 | P.HPIM ---
History of Present Illness H&P Date: 04/30/20 Chief Complaint: Altered mental status History and physical and discharge summary This is a 54-year-old gentleman with past medical history of hemorrhagic stroke, seizure disorder, noncompliant behavior, brought into the ER by EMS for altered mental status in a patient who was just discharged nearly 48 hours ago for similar presentation. At that time evaluated by neurology with neuro workup completed. EMS report states patient was standing up upon their arrival, with some confusion at 2:30 in the morning, girlfriend stated patient's behavior was not the norm for him and they brought him into the ER. Nursing staff reports girlfriend reported at 2 AM he came into her bedroom was leaning against her bed post, not acting right and was aggressive, called EMS and had him brought into the ER. Psychiatry attempted to evaluate patient secondary to the patient's aggressive behavior earlier, which has since subsided. Patient would not wake up for psychiatrist for full evaluation. Evaluated by Dr. Fisher, patient was awakened, alert and oriented 2, discussed plan of care including discharge home with follow-up in office on Sunday. Review of Systems Review systems unable to obtain at this time secondary to patient's behavior; aggressive, threatening, inappropriate-security at bedside Past Medical History Past Medical History: CVA/TIA, GERD/Reflux, Hyperlipidemia, Hypertension, Pneumonia, Seizure Disorder Additional Past Medical History / Comment(s): L hemorrhagic stroke-R sided weakness and has had occasions of increased irritability/agitation/isolation, multiple mental health unit admissions with most recent on 10/24/18 [facility] with major depression/suicidal ideations without plan/acute anxiety, uncontrolled seizures, L pneumothorax with chest tube, migraines-has used other people's narcotics in the past per past medical record but pt denies, benign rectal polyp, etoh last drink more than 10 years ago. History of Any Multi-Drug Resistant Organisms: None Reported Past Surgical History: No Surgical Hx Reported Additional Past Surgical History / Comment(s): COLONOSCOPY POLYPS REMOVED-NEG, bilateral cataract removal, R testicular surgery as a little boy. Past Anesthesia/Blood Transfusion Reactions: No Reported Reaction Additional Past Anesthesia/Blood Transfusion Reaction / Comment(s): Pt has never recieved blood. Past Psychological History: Anxiety, Bipolar, Depression, Panic Disorder Smoking Status: Current every day smoker Past Alcohol Use History: None Reported Past Drug Use History: None Reported - Past Family History Father Family Medical History: Cancer, Hyperlipidemia, Hypertension, Prostate Disorder Additional Family Medical History / Comment(s): PROSTATE CA Mother Family Medical History: Osteoarthritis (OA) Additional Family Medical History / Comment(s): MOM IS 71 Medications and Allergies Home Medications Medication Instructions Recorded Confirmed Type Aspirin [Adult Low Dose Aspirin EC] 81 mg PO DAILY 10/24/18 04/30/20 History Atorvastatin [Lipitor] 80 mg PO HS 10/24/18 04/30/20 History Magnesium Oxide [Mag-Ox] 400 mg PO DAILY #28 tab 11/05/18 04/30/20 Rx Famotidine [Pepcid] 20 mg PO BID #60 tab 11/21/18 04/30/20 Rx Tamsulosin HCl [Flomax] 0.4 mg PO DAILY 12/24/19 04/30/20 History lamoTRIgine [LaMICtal] 200 mg PO BID tab 01/16/20 04/30/20 Rx Citalopram Hydrobromide [CeleXA] 40 mg PO DAILY 04/26/20 04/30/20 History QUEtiapine FUMARATE [SEROquel] 300 mg PO HS 04/26/20 04/30/20 History carvediloL [Coreg] 6.25 mg PO BID #60 tab 04/27/20 04/30/20 Rx Lacosamide [Vimpat] 150 mg PO BID 3 Days #6 tab 04/28/20 04/30/20 Rx Meclizine HCl 12.5 mg PO BID PRN #0 04/28/20 04/30/20 Rx lamoTRIgine [LaMICtal] 25 mg PO BID #0 04/28/20 04/30/20 Rx Buprenorphine HCl/Naloxone HCl 1 film SUBLINGUAL DAILY 04/30/20 04/30/20 History [Suboxone 4 mg-1 mg Sl Film] Allergies Allergy/AdvReac Type Severity Reaction Status Date / Time No Known Allergies Allergy Verified 04/30/20 07:05 Physical Exam Vitals: Vital Signs Temp Pulse Pulse Resp BP BP Pulse Ox 04/30/20 07:51 70 20 04/30/20 07:24 98.6 F 70 20 152/55 93 L 04/30/20 06:41 52 L 16 100/62 98 04/30/20 04:25 68 16 114/74 100 04/30/20 02:44 98.6 F 78 18 117/75 99 Intake and Output 04/29/20 04/30/20 04/30/20 22:59 06:59 14:59 Other: Weight 104.326 kg PHYSICAL EXAM: VITAL SIGNS: As above GENERAL: Sitting up in bed, no acute distress HEENT: Conjunctivae normal. eyes normal. Oral mucosa moist NECK: No JVD. No thyroid enlargement. No LNs CARDIOVASCULAR: S1, S2 regular.. No murmur RESPIRATION: Breath sounds diminished in the bases. No rhonchi or crackles. No bronchial breathing. ABDOMEN: Soft, nontender . No guarding. no masses palpable. No ascites, No hepatosplenomegaly.Bowel sounds heard. LEGS: No edema. no swelling PSYCHIATRY: Alert and oriented X2, mood and affect normal. NERVOUS SYSTEM: Cranial N 2-12 grossly normal. Moves all 4 limbs. Diffuse weakness No focal deficits. Strength and sensation grossly intact. Skin: Warm and dry, no rash Lymphatic system. No LN neck axilla or groin. Results CBC & Chem 7: 04/30/20 02:55 04/30/20 02:55 Labs: Abnormal Lab Results - Last 24 Hours (Table) 04/30/20 04/30/20 Range/Units 02:55 02:55 RBC 3.95 L (4.30-5.90) m/uL Hgb 12.9 L (13.0-17.5) gm/dL Hct 37.3 L (39.0-53.0) % Creatinine 1.67 H (0.66-1.25) mg/dL Assessment and Plan Assessment: Recently discharged with Acute metabolic encephalopathy, secondary to acute re nal failure , toxic encephalopathy in a patient with noncompliant behavior, polysubstance abuse; tricyclics and benzos on toxicology screen. Recent Acute renal failure secondary to dehydration, hypotension, currently on third liter fluid bolus, baseline is around 1.1. Prerenal and ischemic ATN.Sign ificantly improved Seizure disorder, with recent possible unwitnessed seizure with post ictal state h/o hemorraghic CVA, left parietal 2014 with residual mild right-sided hemiparesis History of BPH Nicotine dependence History of hypertension Hyperlipidemia Anxiety Migraine Opiod use disorder, polysubstance abuse Major Depression Anxiety Noncompliant Plan: Continue on current medication regime ,monitoring and symptomatic treatment. Evaluated by currently at the bedside. No seizure activity. Patient is being discharged home today in a stable condition with guarded prognosis. No driving. The impression and plan of care has been dictated as directed. : I performed a history and examination of this patient, discussed the same with the dictator. I agree with the dictator's note ,documented as a scribe. Any additional findings or plans will be noted.
[2020-04-30] MEDS: carvediloL 6.25 MG TAB PO SCH (17:26)
[2020-04-30] MEDS ORDERED: LORazepam 2 MG/ML INJ IM STA (19:58)
[2020-04-30] MEDS ORDERED: HALOPERIDOL LACTATE 5 MG/ML 1 ML VIAL IM STA (19:58)
[2020-04-30] MEDS ORDERED: FAMOTIDINE 20 MG TAB PO SCH ×2 (21:00)
[2020-04-30] MEDS ORDERED: ATORVASTATIN 80 MG TAB PO SCH (21:00)
[2020-04-30] MEDS ORDERED: QUEtiapine 100 MG TAB PO SCH (21:00)
[2020-05-01] MEDS: DEXTROSE 5%-0.45% NACL 1,000 ML IV SCH (02:52)
[2020-05-01 08:14] VITALS: BP 133/82; PULSE 65; RESP 16; TEMP 97.5
[2020-05-01] MEDS ORDERED: MAGNESIUM OXIDE 400 MG TAB PO SCH (09:00)
[2020-05-01] MEDS ORDERED: CITALOPRAM HYDROBROMIDE 20 MG TAB PO SCH (09:00)
[2020-05-01] MEDS ORDERED: NALOXONE HCL SUBLINGUAL SCH (09:00)
[2020-05-01] MEDS ORDERED: ASPIRIN 81 MG PO SCH (09:00)
[2020-05-01] MEDS ORDERED: BUPRENORPHINE HCL SUBLINGUAL SCH (09:00)
[2020-05-01] MEDS: LACOSAMIDE 150 MG TABLET PO SCH (09:32)
[2020-05-01] MEDS: TAMSULOSIN 0.4 MG CAP.ER.24H PO SCH (09:32)
[2020-05-01] MEDS: ENOXAPARIN 40 MG/0.4 ML SYRINGE SQ SCH (09:33)
[2020-05-01] MEDS: lamoTRIgine 100 MG TAB PO SCH (09:33)
[2020-05-01] MEDS: carvediloL 6.25 MG TAB PO SCH (09:33)
--- NOTE | 2020-05-01 12:00 | P.CON ---
Consult Note - . Consult date: 05/01/20 Assessment/Plan:: Clinical Problems: Delirium due to multiple medical conditions, chronic renal failure, personal history of CVA with residual effects, seizure disorder, history of major depressive disorder Interim history: I reviewed the medical record, spoke with the his nurse about his medical management and interviewed the patient. He is known to psychiatry service from prior admissions. He is a 54-year-old male who has a psychiatric history of a recurrent depressive disorder. He was last discharged from the psychiatric unit in October 2018 with the diagnoses of major depressive disorder and anxiety disorder. His medical history is significant for a left hemorrhagic stroke with right-sided weakness and uncontrolled seizure disorder. He was discharged from medicine service on 04/28/2020 with the diagnoses of acute metabolic encephalopathy secondary to acute renal failure, toxic encephalopathy, polysubstance abuse and a seizure disorder. He is angry and minimally cooperative. He complained that he has been held in the hospital against his will. He was angry that he was not discharged yesterday and placed in restraints. He perseverated on "not doing anything wrong." He received 2 injections of Haldol and 2 mg of Ativan yesterday evening for agitation and aggression. He is unable to provide a clear explanation as to the reason for his medical hospitalization. He was "at home" when "they brought me here." He believes that his girlfriend may have called EMS because she told him that she was concerned about him. According to the medical record he was readmitted 48 hours after he is discharged with the diagnosis of a metabolic encephalopathy. His girlfriend called EMS because she was concerned about his well-being. She told the nursing staff that he was "not acting right and was "aggressive." He impr ession of the intestines this was that the confusion was possibly related to attend unwitnessed seizure with postictal state in addition to recovering from her recent metabolic encephalopathy with acute renal failure. The patient denied thoughts of or suicide. He denied homicidal ideation. He denied experiencing auditory, visual or olfactory hallucinations, ideas reference, thought insertion or thought broadcasting. He denied recent use of alcohol or drugs; a recent urine drug screen was not available for review. Mental status exam: He presented as a somewhat disheveled appearing 54-year-old male who made eye contact and appeared to attend to the interview. He had no distinction features are prominent physical abnormalities. He had an angry facial expression. He was alert and oriented to person and place. He was not restless, agitated, or irritable. His speech was nonspontaneous and consistent with his mood. His affect was angry, irritable and uncooperative. He denied suicidal ideation and wishes. He denied homicidal ideation. He did not express feelings of hopelessness or worthlessness. He feels helpless regarding this hospitalization and our unwillingness to allow him to leave the hospital. He did not express ideas reference, paranoid ideation or delusions. He ruminated about the episodes of seclusion or restraint yesterday. His thinking was concrete but his associations were goal-directed. He denied hallucinations and did not appear to be responding to internal stimuli. Assessment: This gentleman with prominent medical problems including residual from the left CVA and uncontrolled seizure disorder. He presented to medicine with increasing confusion 2 days after discharge. His behavior is unlike the result of a psychiatric illness and has mostly she related to his underlying medical disorders. There is no indication for transfer to the psychiatric unit at this time. Plan: Continue Seroquel 300 mg at bedtime, continue with antiseizure medications Lamictal 200 mg twice a day and Vimpat 150 mg twice a day, follow up with his primary care provider. Thank you for this consult.
[2020-05-01 12:49] LABS: Appearance,Urine Clear (Clear); Bilirubin,Urine Negative (Negative); Blood,Urine Negative (Negative); Color,Urine Yellow; Glucose,Urine (UA) Negative (Negative); Ketones,Urine Negative (Negative); Leukocyte Esterase,Urine Negative (Negative); Nitrite,Urine Negative (Negative); PH, Urine 7.5 (5.0-8.0); Protein,Urine Negative (Negative); Specific Gravity,Urine 1.014 (1.001-1.035); Urobilinogen,Urine <2.0 mg/dL (<2.0)
[2020-05-01 13:09] LABS: Amphetamine Screen,Urine Not Detected (NotDetected); Barbiturate Screen,Urine Not Detected (NotDetected); Benzodiazepines Screen,Urine Detected (NotDetected); Cocaine Screen,Urine Not Detected (NotDetected); Methadone Screen, Urine Not Detected (NotDetected); Opiate Screen,Urine Not Detected (NotDetected); Oxycodone Screen, Urine Not Detected (NotDetected); Phencyclidine Screen,Urine Not Detected (NotDetected); Tricyclic Antidepressant,Urine Detected (NotDetected); Urn Cannabinoid Scrn Not Detected (NotDetected)
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
== END 2020-05-01 14:16 | disposition home or self-care (01) ==
LOC: EC 02:42 → 6NMEDSUR 04:22 → 4SSUR 05:24
PROVIDERS: ADMIT Family Medicine; ATTEND Family Medicine
DX: R41.82 Altered mental status, unspecified (principal); R53.1 Weakness; R42 Dizziness and giddiness; R45.1 Restlessness and agitation; E78.5 Hyperlipidemia, unspecified; K21.9 Gastro-esophageal reflux disease without esophagitis; I69.351 Hemiplegia and hemiparesis following cerebral infarction affecting right dominant side; G43.909 Migraine, unspecified, not intractable, without status migrainosus; F31.9 Bipolar disorder, unspecified; F41.0 Panic disorder [episodic paroxysmal anxiety]; F17.200 Nicotine dependence, unspecified, uncomplicated; G40.909 Epilepsy, unspecified, not intractable, without status epilepticus; N40.0 Benign prostatic hyperplasia without lower urinary tract symptoms; Z91.19 Patient's noncompliance with other medical treatment and regimen; F11.90 Opioid use, unspecified, uncomplicated; F19.10 Other psychoactive substance abuse, uncomplicated; F05 Delirium due to known physiological condition; N18.9 Chronic kidney disease, unspecified; I12.9 Hypertensive chronic kidney disease with stage 1 through stage 4 chronic kidney disease, or unspecified chronic kidney disease; G40.409 Other generalized epilepsy and epileptic syndromes, not intractable, without status epilepticus; Z79.82 Long term (current) use of aspirin; Z79.899 Other long term (current) drug therapy; Z87.01 Personal history of pneumonia (recurrent); Z87.19 Personal history of other diseases of the digestive system; Z80.42 Family history of malignant neoplasm of prostate; Z82.49 Family history of ischemic heart disease and other diseases of the circulatory system; Z82.61 Family history of arthritis; Z56.0 Unemployment, unspecified; Z78.1 Physical restraint status; Z20.822 Contact with and (suspected) exposure to COVID-19
CPT/HCPCS: 96372; 96360; 96361; 99285; 36415; 93005; 80156; 80164; 80053; 80185; 80178; 83735; 84100; 85025; 81003; 80306; 80143; 87635; 80179; G0378 ×2; G0480; J2060; J1630; 80320

== ENCOUNTER 2020-05-02 11:09 | Emergency (ER) | payer OTHER ==
--- NOTE | 2020-05-02 11:32 | ED ---
General Adult HPI - General Chief complaint: Altered Mental Status Stated complaint: Altered LOC Source: EMS, RN notes reviewed Mode of arrival: EMS Limitations: altered mental status - History of Present Illness Initial comments: Patient is a 54-year-old male that presents to emergency department via EMS with altered level of consciousness/altered mental status. Patient was uncooperative initially with examination interview. Stated that he knows where he is at noted daily has but couldn't tell us exactly where he was at or location. EMS noted that he tried giving them his home address can accurately given. Patient does have a history of seizure-like activities but it is unknown if he had 1 prior to arrival. Patient was very poor historian. He denied any chest pain shortness of breath headache nausea vomiting diarrhea constipation fever fatigue chills. - Related Data Home Medications Medication Instructions Recorded Confirmed Aspirin [Adult Low Dose Aspirin EC] 81 mg PO DAILY 10/24/18 05/02/20 Atorvastatin [Lipitor] 80 mg PO HS 10/24/18 05/02/20 Tamsulosin HCl [Flomax] 0.4 mg PO DAILY 12/24/19 05/02/20 Citalopram Hydrobromide [CeleXA] 40 mg PO DAILY 04/26/20 05/02/20 QUEtiapine FUMARATE [SEROquel] 300 mg PO HS 04/26/20 05/02/20 Buprenorphine HCl/Naloxone HCl 1 film SUBLINGUAL DAILY 04/30/20 05/02/20 [Suboxone 4 mg-1 mg Sl Film] Previous Rx's Medication Instructions Recorded Magnesium Oxide [Mag-Ox] 400 mg PO DAILY #28 tab 11/05/18 Famotidine [Pepcid] 20 mg PO BID #60 tab 11/21/18 lamoTRIgine [LaMICtal] 200 mg PO BID tab 01/16/20 carvediloL [Coreg] 6.25 mg PO BID #60 tab 04/27/20 Lacosamide [Vimpat] 150 mg PO BID 3 Days #6 tab 04/28/20 Meclizine HCl 12.5 mg PO BID PRN #0 04/28/20 lamoTRIgine [LaMICtal] 25 mg PO BID #0 04/28/20 Allergies Allergy/AdvReac Type Severity Reaction Status Date / Time No Known Allergies Allergy Verified 04/30/20 07:05 Review of Systems ROS Statement: Those systems with pertinent positive or pertinent negative responses have been documented in the HPI. ROS Other: All systems not noted in ROS Statement are negative. Past Medical History Past Medical History: CVA/TIA, GERD/Reflux, Hyperlipidemia, Hypertension, Pneumonia, Seizure Disorder Additional Past Medical History / Comment(s): L hemorrhagic stroke-R sided weakness and has had occasions of increased irritability/agitation/isolation, multiple mental health unit admissions with most recent on 10/24/18 [facility] with major depression/suicidal ideations without plan/acute anxiety, uncontrolled seizures, L pneumothorax with chest tube, migraines-has used other people's narcotics in the past per past medical record but pt denies, benign rectal polyp, etoh last drink more than 10 years ago. History of Any Multi-Drug Resistant Organisms: None Reported Past Surgical History: No Surgical Hx Reported Additional Past Surgical History / Comment(s): COLONOSCOPY POLYPS REMOVED-NEG, bilateral cataract removal, R testicular surgery as a little boy. Past Anesthesia/Blood Transfusion Reactions: No Reported Reaction Additional Past Anesthesia/Blood Transfusion Reaction / Comment(s): Pt has never recieved blood. Past Psychological History: Anxiety, Bipolar, Depression, Panic Disorder Smoking Status: Current every day smoker Past Alcohol Use History: None Reported Past Drug Use History: None Reported - Past Family History Father Family Medical History: Cancer, Hyperlipidemia, Hypertension, Prostate Disorder Additional Family Medical History / Comment(s): PROSTATE CA Mother Family Medical History: Osteoarthritis (OA) Additional Family Medical History / Comment(s): MOM IS 71 General Exam Limitations: altered mental status General appearance: alert, in no apparent distress Head exam: Present: atraumatic, normocephalic, normal inspection Eye exam: Present: normal appearance, PERRL, EOMI. Absent: scleral icterus, conjunctival injection, periorbital swelling ENT exam: Present: normal exam, mucous membranes moist Neck exam: Present: normal inspection. Absent: tenderness, meningismus, lymphadenopathy Respiratory exam: Present: normal lung sounds bilaterally. Absent: respiratory distress, wheezes, rales, rhonchi, stridor Cardiovascular Exam: Present: regular rate, normal rhythm, normal heart sounds. Absent: systolic murmur, diastolic murmur, rubs, gallop, clicks GI/Abdominal exam: Present: soft, normal bowel sounds. Absent: distended, tenderness, guarding, rebound, rigid Extremities exam: Present: normal inspection, full ROM, normal capillary refill. Absent: tenderness, pedal edema, joint swelling, calf tenderness Neurological exam: Present: alert, CN II-XII intact. Absent: oriented X3 (Patient does not know his location or time.) Psychiatric exam: Present: depressed, agitated, flat affect. Absent: normal affect, normal mood Skin exam: Present: warm, dry, intact, normal color. Absent: rash Course Vital Signs 05/02/20 05/02/20 05/02/20 11:13 11:33 12:33 Temperature 98.6 F Pulse Rate 75 Respiratory 18 18 18 Rate Blood Pressure 156/94 O2 Sat by Pulse 98 Oximetry 05/02/20 05/02/20 05/02/20 13:33 14:00 15:00 Temperature Pulse Rate 68 71 69 Respiratory 18 18 18 Rate Blood Pressure 139/67 O2 Sat by Pulse 98 98 98 Oximetry 05/02/20 05/02/20 05/02/20 16:00 17:00 18:00 Temperature Pulse Rate 62 65 63 Respiratory 18 18 18 Rate Blood Pressure 100/62 116/83 O2 Sat by Pulse 98 98 99 Oximetry 05/02/20 05/02/20 19:15 21:32 Temperature Pulse Rate 67 67 Respiratory 18 18 Rate Blood Pressure 146/89 O2 Sat by Pulse 99 99 Oximetry Medical Decision Making - Medical Decision Making 54-year-old male with altered level of consciousness. Basic labs, EKG ordered. Labs unremarkable, Ativan ordered for acute agitation. Patient refused urine sample and straight cath. Patient is medically cleared. Case discussed with Dr. Steiner, was decided to get patient a psych consult on the emergency department. - Lab Data Result diagrams: 05/02/20 12:00 05/02/20 12:00 Lab Results 05/02/20 05/02/20 05/02/20 Range/Units 12:00 12:00 17:36 WBC 9.6 (3.8-10.6) k/uL RBC 3.90 L (4.30-5.90) m/uL Hgb 12.4 L (13.0-17.5) gm/dL Hct 36.8 L (39.0-53.0) % MCV 94.4 (80.0-100.0) fL MCH 31.9 (25.0-35.0) pg MCHC 33.8 (31.0-37.0) g/dL RDW 12.8 (11.5-15.5) % Plt Count 282 (150-450) k/uL MPV 8.3 Neutrophils % 73 % Lymphocytes % 13 % Monocytes % 8 % Eosinophils % 4 % Basophils % 1 % Neutrophils # 7.0 (1.3-7.7) k/uL Lymphocytes # 1.3 (1.0-4.8) k/uL Monocytes # 0.7 (0-1.0) k/uL Eosinophils # 0.4 (0-0.7) k/uL Basophils # 0.1 (0-0.2) k/uL Sodium 142 (137-145) mmol/L Potassium 4.5 (3.5-5.1) mmol/L Chloride 110 H (98-107) mmol/L Carbon Dioxide 22 (22-30) mmol/L Anion Gap 10 mmol/L BUN 18 (9-20) mg/dL Creatinine 1.10 (0.66-1.25) mg/dL Est GFR (CKD-EPI)AfAm 86 (>60 ml/min/1.73 sqM) Est GFR (CKD-EPI)NonAf 75 (>60 ml/min/1.73 sqM) Glucose 119 H (74-99) mg/dL Calcium 9.8 (8.4-10.2) mg/dL Total Bilirubin 0.4 (0.2-1.3) mg/dL AST 26 (17-59) U/L ALT 17 (4-49) U/L Alkaline Phosphatase 59 (38-126) U/L Total Protein 6.9 (6.3-8.2) g/dL Albumin 4.4 (3.5-5.0) g/dL Serum Alcohol <10 mg/dL Coronavirus (PCR) (Not Detectd) 05/02/20 Range/Units 17:36 WBC (3.8-10.6) k/uL RBC (4.30-5.90) m/uL Hgb (13.0-17.5) gm/dL Hct (39.0-53.0) % MCV (80.0-100.0) fL MCH (25.0-35.0) pg MCHC (31.0-37.0) g/dL RDW (11.5-15.5) % Plt Count (150-450) k/uL MPV Neutrophils % % Lymphocytes % % Monocytes % % Eosinophils % % Basophils % % Neutrophils # (1.3-7.7) k/uL Lymphocytes # (1.0-4.8) k/uL Monocytes # (0-1.0) k/uL Eosinophils # (0-0.7) k/uL Basophils # (0-0.2) k/uL Sodium (137-145) mmol/L Potassium (3.5-5.1) mmol/L Chloride (98-107) mmol/L Carbon Dioxide (22-30) mmol/L Anion Gap mmol/L BUN (9-20) mg/dL Creatinine (0.66-1.25) mg/dL Est GFR (CKD-EPI)AfAm (>60 ml/min/1.73 sqM) Est GFR (CKD-EPI)NonAf (>60 ml/min/1.73 sqM) Glucose (74-99) mg/dL Calcium (8.4-10.2) mg/dL Total Bilirubin (0.2-1.3) mg/dL AST (17-59) U/L ALT (4-49) U/L Alkaline Phosphatase (38-126) U/L Total Protein (6.3-8.2) g/dL Albumin (3.5-5.0) g/dL Serum Alcohol mg/dL Coronavirus (PCR) Not Detected (Not Detectd) - EKG Data -: EKG Interpreted by Tx EKG Comments: Ventricular rate 71 bpm, CA interval 230 ms, QRS duration 94 ms, QT/QTc 416/450 ms, PT axes 1/-38/-7. Sinus rhythm with first-degree AV block, left axis deviation, ST and T-wave abnormality, consider inferior ischemia, abnormal ECG. Nurse noted the patient would not sit still for test and will retry in a few minutes. Disposition Clinical Impression: Delirium due to general medical condition, Depression, Seizure Disposition: ADMITTED IP TO THIS [facility] Instructions (If sedation given, give patient instructions): Altered Mental Status (ED) Referrals: Srikanth Ervin MD [Primary Care Provider] - 1-2 days
[2020-05-02 11:33] VITALS: RESP 18; TEMP 98.6
[2020-05-02 12:10] LABS: Basophils # (A) 0.1 k/uL (0-0.2); Basophils % (A) 1 %; Eosinophils # (A) 0.4 k/uL (0-0.7); Eosinophils % (A) 4 %; HCT 36.8 % (39.0-53.0); HGB 12.4 gm/dL (13.0-17.5); Lymphocytes # (A) 1.3 k/uL (1.0-4.8); Lymphocytes % (A) 13 %; MCH 31.9 pg (25.0-35.0); MCHC 33.8 g/dL (31.0-37.0); MCV 94.4 fL (80.0-100.0); Mean Platelet Volume 8.3; Monocytes # (A) 0.7 k/uL (0-1.0); Monocytes % (A) 8 %; Neutrophils % (A) 73 %; Platelet Count 282 k/uL (150-450); RDW 12.8 % (11.5-15.5); WBC 9.6 k/uL (3.8-10.6)
[2020-05-02 12:18] LABS: Albumin 4.4 g/dL (3.5-5.0); Calcium 9.8 mg/dL (8.4-10.2); Potassium 4.5 mmol/L (3.5-5.1); Total Bilirubin 0.4 mg/dL (0.2-1.3); Total Protein 6.9 g/dL (6.3-8.2)
[2020-05-02] MEDS ORDERED: LORazepam 2 MG/ML INJ IV STA (13:14)
[2020-05-02] MEDS ORDERED: LORazepam 2 MG/ML INJ IM STA (13:14)
[2020-05-02] MEDS ORDERED: HALOPERIDOL LACTATE 5 MG/ML 1 ML VIAL IVP STA (13:14)
[2020-05-02 19:15] VITALS: PULSE 67
[2020-05-02 21:56] VITALS: BP 146/89
== END 2020-05-02 21:45 | disposition other institution (70) ==
LOC: EC 11:09
DX: F05 Delirium due to known physiological condition (principal); F41.9 Anxiety disorder, unspecified; F31.9 Bipolar disorder, unspecified; F41.0 Panic disorder [episodic paroxysmal anxiety]; F17.200 Nicotine dependence, unspecified, uncomplicated; I10 Essential (primary) hypertension; G40.909 Epilepsy, unspecified, not intractable, without status epilepticus; Z20.822 Contact with and (suspected) exposure to COVID-19; Z79.82 Long term (current) use of aspirin; Z79.899 Other long term (current) drug therapy; Z86.73 Personal history of transient ischemic attack (TIA), and cerebral infarction without residual deficits; Z98.42 Cataract extraction status, left eye; Z98.41 Cataract extraction status, right eye
CPT/HCPCS: 99285; 96374; 96372; 93005; 80053; 85025; 87635; G0480; J2060; J1630; 80320

== ENCOUNTER 2020-05-15 20:33 | Emergency (ER) | payer OTHER ==
[2020-05-15] MEDS ORDERED: NALOXONE 0.4 MG/ML 1 ML VIAL IVP STA (20:41)
[2020-05-15 20:49] LABS: Glucose,Whole Blood 124 mg/dL (75-99)
--- NOTE | 2020-05-15 20:54 | ED ---
General Adult HPI - General Stated complaint: Altered Mental Status Time Seen by Provider: 05/15/20 20:40 - History of Present Illness Initial comments: Dictation was produced using [employer] dictation software. please excuse any grammatical, word or spelling errors. This patient was cared for during a federal and state declared state of emergency secondary to Covid 19 Chief Complaint: 54-year-old male with past medical history of CVA, distal edema hypertension seizure disorder presents to the emergency department for altered mental status History of Present Illness: 54-year-old male. It's unclear what patient's medical history is. EMS reports that they're familiar with the patient. He has extensive history of altered mental status, combative behavior, illicit drug abuse. Patient was last seen normal at approximately 3 PM today. Allegedly patient told his roommate or family member that he was given a have a seizure. Patient supposedly has past medical history of seizure disorder. Patient is unable to provide HPI. Normal sugar and normal vitals per EMS. He reports that he was responsive to painful stimuli. Unable to obtain R was secondary to mental status PHYSICAL EXAM: General Impression: Eyes open, not acute distress HEENT: Normocephalic atraumatic, extra-ocular movements intact, pupils equal and reactive to light bilaterally, mucous membranes moist. Cardiovascular: Heart regular rate and rhythm Chest: no retractions, no tachypnea Abdomen: abdomen soft, non-distended, no organomegaly Musculoskeletal: Pulses present and equal in all extremities, no peripheral edema Neurologic: Unresponsive, does not follow commands, eyes open, moves all extremities with painful stimuli Skin: Intact with no visualized rashes ED course: 54-year-old male presents with acute altered mental status. Last seen normal at 3 PM. Vital signs upon arrival are within acceptable limits. Point of care blood glucose is unremarkable. I am not familiar with this patient however chart review shows that patient has been seen here in emergency department on multiple occasions within the last 2 years. I did obtain more history from patient's primary care physician Dr. Fisher who is familiar with patient states that he has extensive history of drug abuse, hemorrhagic stroke and aggressive behavior. He is allegedly noncompliant. Also a Suboxone user. Code stroke was paged. After discussion with code stroke doctor recommend CT and CTA. Patient's 88 candidate for TPA. ED skin the brain and CT angios the head and neck shows no acute processes. Chest x-rays negative. Images reviewed by stroke doctor who recommended patient is not a TPA or thrombectomy candidate. Laboratory evaluation obtained. CBC, coag panel is unremarkable. Metabolic panel shows creatinine of 2.0. Patient's history of kidney injury. Rest of blood labs are unremarkable. Patient reevaluated at 10 PM with significant improvement of symptoms. He is now able to have normal conversation. He Is moving most of the extremities. EKG interpretation: Ventricular rate 55, sinus bradycardia with first-degree AV block, NC interval to 54, QRS 116, QTc 464. No NC prolongation, no QTC prolongation, no ST or T-wave changes noted. EKG compared to 05/02/2020 showing no changes. Overall, this EKG is unremarkable Laboratory evaluation obtained. CBC, coag panel, metabolic panel is obtained. Patient has slight elevation in renal markers. Tox labs negative. Urine drug screen is negative. Computed tomography scan of the brain, CT angios the head and neck and chest x-ray all appear nonacute. Patient reevaluated at 1045 found to be in stable medical condition. Discussed with patient and recommend that he be admitted to the hospital for altered mental status workup. Patient believes that he had a seizure because he has this often. Since that he is compliant with his seizure medication. Patient refuses admission. He wants to sign out AGAINST MEDICAL ADVICE. Patient told that he could have a significant severe life-threatening process occurring currently. Patient understands. Patient feels at baseline at this point. Return parameters discussed. Patient signed out AMA. Risks, Benefits, and Treatment alternatives were discussed in detail with the patient. The patient is alert and oriented X 3 and has the capacity to make an informed decision. The risks of increased morbidity including the possibly of were explained to and understood by the patient who is choosing to leave against medical advice. The patient is encouraged to return any time should they want further treatment and diagnostic investigation. - Related Data Home Medications Medication Instructions Recorded Confirmed Aspirin [Adult Low Dose Aspirin EC] 81 mg PO DAILY 10/24/18 05/15/20 Atorvastatin [Lipitor] 80 mg PO HS 10/24/18 05/15/20 Tamsulosin HCl [Flomax] 0.4 mg PO DAILY 12/24/19 05/15/20 Citalopram Hydrobromide [CeleXA] 40 mg PO DAILY 04/26/20 05/15/20 QUEtiapine FUMARATE [SEROquel] 300 mg PO HS 04/26/20 05/15/20 Carvedilol [Coreg] 25 mg PO BID 05/15/20 05/15/20 Lacosamide [Vimpat] 50 mg PO BID 05/15/20 05/15/20 Lacosamide [Vimpat] 100 mg PO BID 05/15/20 05/15/20 Valsartan [Diovan] 160 mg PO DAILY 05/15/20 05/15/20 amLODIPine [Norvasc] 5 mg PO DAILY 05/15/20 05/15/20 hydroCHLOROthiazide [Hydrodiuril] 25 mg PO DAILY 05/15/20 05/15/20 Previous Rx's Medication Instructions Recorded Magnesium Oxide [Mag-Ox] 400 mg PO DAILY #28 tab 11/05/18 Famotidine [Pepcid] 20 mg PO BID #60 tab 11/21/18 lamoTRIgine [LaMICtal] 200 mg PO BID tab 01/16/20 Meclizine HCl 12.5 mg PO BID PRN #0 04/28/20 lamoTRIgine [LaMICtal] 25 mg PO BID #0 04/28/20 Allergies Allergy/AdvReac Type Severity Reaction Status Date / Time No Known Allergies Allergy Verified 05/15/20 22:18 Review of Systems ROS Statement: Those systems with pertinent positive or pertinent negative responses have been documented in the HPI. ROS Other: All systems not noted in ROS Statement are negative. Past Medical History Past Medical History: CVA/TIA, GERD/Reflux, Hyperlipidemia, Hypertension, Pneumonia, Seizure Disorder Additional Past Medical History / Comment(s): L hemorrhagic stroke-R sided weakness and has had occasions of increased irritability/agitation/isolation, multiple mental health unit admissions with most recent on 10/24/18 [facility] with major depression/suicidal ideations without plan/acute anxiety, uncontrolled seizures, L pneumothorax with chest tube, migraines-has used other people's narcotics in the past per past medical record but pt denies, benign rectal polyp, etoh last drink more than 10 years ago. History of Any Multi-Drug Resistant Organisms: None Reported Past Surgical History: No Surgical Hx Reported Additional Past Surgical History / Comment(s): COLONOSCOPY POLYPS REMOVED-NEG, bilateral cataract removal, R testicular surgery as a little boy. Past Anesthesia/Blood Transfusion Reactions: No Reported Reaction Additional Past Anesthesia/Blood Transfusion Reaction / Comment(s): Pt has never recieved blood. Past Psychological History: Anxiety, Bipolar, Depression, Panic Disorder Smoking Status: Current every day smoker Past Alcohol Use History: None Reported Past Drug Use History: None Reported - Past Family History Father Family Medical History: Cancer, Hyperlipidemia, Hypertension, Prostate Disorder Additional Family Medical History / Comment(s): PROSTATE CA Mother Family Medical History: Osteoarthritis (OA) Additional Family Medical History / Comment(s): MOM IS 71 Course Vital Signs 05/15/20 05/15/20 05/15/20 20:45 20:50 21:02 Temperature 97.6 F Pulse Rate 58 L 99 Respiratory 24 24 24 Rate Blood Pressure 130/81 108/57 O2 Sat by Pulse 97 99 Oximetry 05/15/20 05/15/20 05/15/20 22:00 22:15 22:30 Temperature Pulse Rate 80 78 70 Respiratory 20 20 18 Rate Blood Pressure 117/72 110/82 116/78 O2 Sat by Pulse 98 99 99 Oximetry 05/15/20 22:45 Temperature Pulse Rate 64 Respiratory 18 Rate Blood Pressure 118/64 O2 Sat by Pulse 98 Oximetry Medical Decision Making - Lab Data Result diagrams: 05/15/20 20:52 05/15/20 20:52 Lab Results 05/15/20 05/15/20 05/15/20 Range/Units 20:42 20:52 20:52 WBC 7.8 (3.8-10.6) k/uL RBC 3.89 L (4.30-5.90) m/uL Hgb 12.8 L (13.0-17.5) gm/dL Hct 37.2 L (39.0-53.0) % MCV 95.7 (80.0-100.0) fL MCH 33.0 (25.0-35.0) pg MCHC 34.5 (31.0-37.0) g/dL RDW 12.5 (11.5-15.5) % Plt Count 272 (150-450) k/uL MPV 7.7 Neutrophils % 75 % Lymphocytes % 15 % Monocytes % 5 % Eosinophils % 3 % Basophils % 1 % Neutrophils # 5.9 (1.3-7.7) k/uL Lymphocytes # 1.2 (1.0-4.8) k/uL Monocytes # 0.4 (0-1.0) k/uL Eosinophils # 0.3 (0-0.7) k/uL Basophils # 0.1 (0-0.2) k/uL PT 10.0 (9.0-12.0) sec INR 0.9 (<1.2) APTT 19.1 L (22.0-30.0) sec Sodium (137-145) mmol/L Potassium (3.5-5.1) mmol/L Chloride (98-107) mmol/L Carbon Dioxide (22-30) mmol/L Anion Gap mmol/L BUN (9-20) mg/dL Creatinine (0.66-1.25) mg/dL Est GFR (CKD-EPI)AfAm (>60 ml/min/1.73 sqM) Est GFR (CKD-EPI)NonAf (>60 ml/min/1.73 sqM) Glucose (74-99) mg/dL POC Glucose (mg/dL) 124 H (75-99) mg/dL POC Glu [employer] Rodrigo Javier Osmolality (280-301) mosm/kg Calcium (8.4-10.2) mg/dL Magnesium (1.6-2.3) mg/dL Total Bilirubin (0.2-1.3) mg/dL AST (17-59) U/L ALT (4-49) U/L Alkaline Phosphatase (38-126) U/L Troponin I (0.000-0.034) ng/mL Total Protein (6.3-8.2) g/dL Albumin (3.5-5.0) g/dL Salicylates mg/dL Urine Opiates Screen (NotDetected) Ur Oxycodone Screen (NotDetected) Urine Methadone Screen (NotDetected) Ur Propoxyphene Screen (NotDetected) Acetaminophen ug/mL Ur Barbiturates Screen (NotDetected) U Tricyclic Antidepress (NotDetected) Ur Phencyclidine Scrn (NotDetected) Ur Amphetamines Screen (NotDetected) U Methamphetamines Scrn (NotDetected) U Benzodiazepines Scrn (NotDetected) Urine Cocaine Screen (NotDetected) U Marijuana (THC) Screen (NotDetected) 05/15/20 05/15/20 05/15/20 Range/Units 20:52 20:52 Unknown WBC (3.8-10.6) k/uL RBC (4.30-5.90) m/uL Hgb (13.0-17.5) gm/dL Hct (39.0-53.0) % MCV (80.0-100.0) fL MCH (25.0-35.0) pg MCHC (31.0-37.0) g/dL RDW (11.5-15.5) % Plt Count (150-450) k/uL MPV Neutrophils % % Lymphocytes % % Monocytes % % Eosinophils % % Basophils % % Neutrophils # (1.3-7.7) k/uL Lymphocytes # (1.0-4.8) k/uL Monocytes # (0-1.0) k/uL Eosinophils # (0-0.7) k/uL Basophils # (0-0.2) k/uL PT (9.0-12.0) sec INR (<1.2) APTT (22.0-30.0) sec Sodium 135 L (137-145) mmol/L Potassium 4.3 (3.5-5.1) mmol/L Chloride 105 (98-107) mmol/L Carbon Dioxide 21 L (22-30) mmol/L Anion Gap 9 mmol/L BUN 22 H (9-20) mg/dL Creatinine 2.00 H (0.66-1.25) mg/dL Est GFR (CKD-EPI)AfAm 42 (>60 ml/min/1.73 sqM) Est GFR (CKD-EPI)NonAf 36 (>60 ml/min/1.73 sqM) Glucose 119 H (74-99) mg/dL POC Glucose (mg/dL) (75-99) mg/dL POC Glu [employer] ID Osmolality 288 ([phone]) mosm/kg Calcium 9.3 (8.4-10.2) mg/dL Magnesium 2.3 (1.6-2.3) mg/dL Total Bilirubin 0.5 (0.2-1.3) mg/dL AST 17 (17-59) U/L ALT 11 (4-49) U/L Alkaline Phosphatase 74 (38-126) U/L Troponin I <0.012 (0.000-0.034) ng/mL Total Protein 6.8 (6.3-8.2) g/dL Albumin 4.4 (3.5-5.0) g/dL Salicylates <1.0 mg/dL Urine Opiates Screen Not Detected (NotDetected) Ur Oxycodone Screen Not Detected (NotDetected) Urine Methadone Screen Not Detected (NotDetected) Ur Propoxyphene Screen Not Detected (NotDetected) Acetaminophen <10.0 ug/mL Ur Barbiturates Screen Not Detected (NotDetected) U Tricyclic Antidepress Detected H (NotDetected) Ur Phencyclidine Scrn Not Detected (NotDetected) Ur Amphetamines Screen Not Detected (NotDetected) U Methamphetamines Scrn Not Detected (NotDetected) U Benzodiazepines Scrn Not Detected (NotDetected) Urine Cocaine Screen Not Detected (NotDetected) U Marijuana (THC) Screen Not Detected (NotDetected) Disposition Clinical Impression: Altered mental status Disposition: Left Against Medical Advice Condition: Fair Instructions (If sedation given, give patient instructions): Altered Mental Status (ED) Is patient prescribed a controlled substance at d/c from ED?: No Referrals: Srikanth Ervin MD [Primary Care Provider] - 1-2 days Time of Disposition: 22:55
[2020-05-15 20:59] LABS: Basophils # (A) 0.1 k/uL (0-0.2); Basophils % (A) 1 %; Eosinophils # (A) 0.3 k/uL (0-0.7); Eosinophils % (A) 3 %; HCT 37.2 % (39.0-53.0); HGB 12.8 gm/dL (13.0-17.5); Lymphocytes # (A) 1.2 k/uL (1.0-4.8); Lymphocytes % (A) 15 %; MCHC 34.5 g/dL (31.0-37.0); MCV 95.7 fL (80.0-100.0); Mean Platelet Volume 7.7; Monocytes # (A) 0.4 k/uL (0-1.0); Monocytes % (A) 5 %; Neutrophils # (A) 5.9 k/uL (1.3-7.7); Neutrophils % (A) 75 %; Platelet Count 272 k/uL (150-450); RBC 3.89 m/uL (4.30-5.90); RDW 12.5 % (11.5-15.5); WBC 7.8 k/uL (3.8-10.6)
[2020-05-15 21:12] LABS: ALT 11 U/L (4-49); AST 17 U/L (17-59); Acetaminophen <10.0 ug/mL; African American GFR (CKD) 42 (>60 ml/min/1.73 sqM); Albumin 4.4 g/dL (3.5-5.0); Alkaline Phosphatase 74 U/L (38-126); Anion Gap 9 mmol/L; Blood Urea Nitrogen 22 mg/dL (9-20); Calcium 9.3 mg/dL (8.4-10.2); Carbon Dioxide 21 mmol/L (22-30); Chloride 105 mmol/L (98-107); Glucose 119 mg/dL (74-99); Magnesium 2.3 mg/dL (1.6-2.3); Non-African American GFR(CKD) 36 (>60 ml/min/1.73 sqM); Potassium 4.3 mmol/L (3.5-5.1); Salicylate <1.0 mg/dL; Sodium 135 mmol/L (137-145); Total Bilirubin 0.5 mg/dL (0.2-1.3); Total Protein 6.8 g/dL (6.3-8.2)
[2020-05-15 21:14] LABS: INR 0.9 (<1.2)
--- NOTE | 2020-05-15 21:20 | CT ---
EXAMINATION TYPE: CT brain wo con for TPA DATE OF EXAM: 05/15/2020 COMPARISON: 04/26/2020 HISTORY: Neuro deficits, stroke suspected. CT DLP: 1250.8 mGycm Automated exposure control for dose reduction was used. Exam performed without contrast. Ventricles have normal size. There is some cortical hypodensity left posterior parietal lobe that chan sures 4 x 1 cm and consistent with an old infarct. There is no midline shift. There is no sign of int racranial hemorrhage. There is mucosal thickening in the left side ethmoid sinus with mild wall thick ening of the sinus. This measures approximate 2.4 cm in diameter. There is mild expansile appearance. IMPRESSION: Old left parietal infarct. No acute intracranial abnormality. Mucosal thickening left side ethmoid sinus that could relate to a mucocele and not changed compared t o recent exam.
[2020-05-15 21:22] LABS: Partial Thromboplastin Time 19.1 sec (22.0-30.0)
--- NOTE | 2020-05-15 21:22 | XR ---
EXAMINATION TYPE: XR chest 1V DATE OF EXAM: 05/15/2020 COMPARISON: 04/26/2020 HISTORY: Altered mental status Heart and mediastinum are normal. Lungs are clear of consolidation. There are no hilar masses. There are chest leads. Costophrenic angles are clear. IMPRESSION: No active cardiopulmonary disease. No significant change.
--- NOTE | 2020-05-15 21:56 | CT ---
EXAMINATION TYPE: CT angio head neck DATE OF EXAM: 05/15/2020 COMPARISON: 07/16/2016 HISTORY: Neuro deficits, stroke suspected CT DLP: 542.2 mGycm Automated exposure control for dose reduction was used. CONTRAST: Performed with IV Contrast, patient injected with 65 mL of Isovue 370. There are 3-D post processed images. Images obtained from the aortic arch to the vertex of the brain with IV contrast. There is normal branching pattern of the great vessels on the aortic arch. There is arterial flow in both subclavian arteries. There is arterial flow in the common internal and external carotid arteries bilaterally. There is some mild plaque formation at the carotid artery bifurcations and less than 10 % stenosis. There is no evidence of carotid or vertebral artery aneurysm or dissection. There is wide patency of the vertebral arteries. There is arterial flow in the anterior middle and posterior cerebral arteries. There is no mass effec t. There is no evidence of intracranial aneurysm or neovascularity. There is normal contrast opacific ation of the venous sinuses. There is mucosal thickening in the left side ethmoid sinus with some expansion and consistent with a mucocele. Unchanged compared to CT scan of 07/16/2016. IMPRESSION: Negative CT angiogram of the neck. Negative CT angiogram of the brain. No evidence of hemodynamic yan nosis.
[2020-05-15] MEDS ORDERED: ASPIRIN 81 MG PO STA (22:02)
[2020-05-15 22:43] LABS: Amphetamine Screen,Urine Not Detected (NotDetected); Barbiturate Screen,Urine Not Detected (NotDetected); Benzodiazepines Screen,Urine Not Detected (NotDetected); Cocaine Screen,Urine Not Detected (NotDetected); Methadone Screen, Urine Not Detected (NotDetected); Opiate Screen,Urine Not Detected (NotDetected); Oxycodone Screen, Urine Not Detected (NotDetected); Phencyclidine Screen,Urine Not Detected (NotDetected); Tricyclic Antidepressant,Urine Detected (NotDetected); Urn Cannabinoid Scrn Not Detected (NotDetected)
[2020-05-15 23:30] VITALS: BP 118/78; PULSE 72; RESP 16; TEMP 97.8
== END 2020-05-15 23:20 | disposition left against medical advice (07) ==
LOC: EC 20:33
DX: R41.82 Altered mental status, unspecified (principal); Z53.29 Procedure and treatment not carried out because of patient's decision for other reasons; Z91.19 Patient's noncompliance with other medical treatment and regimen; E78.5 Hyperlipidemia, unspecified; I10 Essential (primary) hypertension; G40.909 Epilepsy, unspecified, not intractable, without status epilepticus; F41.0 Panic disorder [episodic paroxysmal anxiety]; F31.9 Bipolar disorder, unspecified; F17.200 Nicotine dependence, unspecified, uncomplicated; Z79.82 Long term (current) use of aspirin; Z79.02 Long term (current) use of antithrombotics/antiplatelets; Z79.899 Other long term (current) drug therapy; Z86.73 Personal history of transient ischemic attack (TIA), and cerebral infarction without residual deficits
CPT/HCPCS: 36415; 93005; 83930; 80053; 83735; 84484; 85025; 85610; 85730; 80306; 80143; 80179; 71045; 70496; 70450; 70498; 99285; 96374; J2310; Q9967

== ENCOUNTER 2021-01-25 14:12 | Inpatient (IN) | payer OTHER ==
[2021-01-25] MEDS ORDERED: SODIUM CHLORIDE 0.9% 1,000 ML IV STA (14:18)
--- NOTE | 2021-01-25 14:27 | ED ---
Seizure HPI - General Stated Complaint: seizure, head injury Time Seen by Provider: 01/25/21 14:12 Source: RN/MD, RN notes reviewed, old records reviewed Mode of arrival: EMS - History of Present Illness Initial Comments: 55-year-old male history of seizure disorder as well as history bipolar depression history of substance abuse in the past history of acute kidney injury who was last seen in his usual self last evening and was found by apparently family and the floor next to his chair which was toppled over. No definitive seizure activity was seen by the suspected he had a seizure he normally does have a somewhat prolonged postictal state. Patient was noted have trauma to the left orbit initially was somnolent and sonorous but became more responsive in route to. He was noted to be moving all of his extremities. He did respond to physical stimulus. No other history available at this time MD Complaint: possible seizure - Related Data Home Medications Medication Instructions Recorded Confirmed Aspirin [Adult Low Dose Aspirin EC] 81 mg PO DAILY 10/24/18 01/25/21 Atorvastatin [Lipitor] 80 mg PO HS 10/24/18 01/25/21 Tamsulosin HCl [Flomax] 0.4 mg PO DAILY 12/24/19 01/25/21 Citalopram Hydrobromide [CeleXA] 40 mg PO DAILY 04/26/20 01/25/21 QUEtiapine FUMARATE [SEROquel] 300 mg PO HS 04/26/20 01/25/21 Carvedilol [Coreg] 25 mg PO BID 05/15/20 01/25/21 amLODIPine [Norvasc] 5 mg PO DAILY 05/15/20 01/25/21 hydroCHLOROthiazide [Hydrodiuril] 25 mg PO DAILY 05/15/20 01/25/21 Baclofen [Lioresal] 20 mg PO TID 01/25/21 01/25/21 Valsartan/Hydrochlorothiazide 1 tab PO DAILY 01/25/21 01/25/21 [Valsartan-Hctz 160-25 mg Tab] Zonisamide [Zonegran] 200 mg PO BID 01/25/21 01/25/21 Previous Rx's Medication Instructions Recorded Magnesium Oxide [Mag-Ox] 400 mg PO DAILY #28 tab 11/05/18 Famotidine [Pepcid] 20 mg PO BID #60 tab 11/21/18 lamoTRIgine [LaMICtal] 200 mg PO BID tab 01/16/20 lamoTRIgine [LaMICtal] 25 mg PO BID #0 04/28/20 Allergies Allergy/AdvReac Type Severity Reaction Status Date / Time No Known Allergies Allergy Verified 01/25/21 16:26 Review of Systems ROS Statement: Those systems with pertinent positive or pertinent negative responses have been documented in the HPI. ROS Other: All systems not noted in ROS Statement are negative. Limitations: ROS unobtainable due to patients medical condition Past Medical History Past Medical History: CVA/TIA, GERD/Reflux, Hyperlipidemia, Hypertension, Pneumonia, Seizure Disorder Additional Past Medical History / Comment(s): L hemorrhagic stroke-R sided weakness and has had occasions of increased irritability/agitation/isolation, multiple mental health unit admissions with most recent on 10/24/18 [facility] with major depression/suicidal ideations without plan/acute anxiety, uncontrolled seizures, L pneumothorax with chest tube, migraines-has used other people's narcotics in the past per past medical record but pt denies, benign rectal polyp, etoh last drink more than 10 years ago. History of Any Multi-Drug Resistant Organisms: None Reported Past Surgical History: No Surgical Hx Reported Additional Past Surgical History / Comment(s): COLONOSCOPY POLYPS REMOVED-NEG, bilateral cataract removal, R testicular surgery as a little boy. Past Anesthesia/Blood Transfusion Reactions: No Reported Reaction Additional Past Anesthesia/Blood Transfusion Reaction / Comment(s): Pt has never recieved blood. Past Psychological History: Anxiety, Bipolar, Depression, Panic Disorder Smoking Status: Current every day smoker Past Alcohol Use History: None Reported Past Drug Use History: None Reported - Past Family History Father Family Medical History: Cancer, Hyperlipidemia, Hypertension, Prostate Disorder Additional Family Medical History / Comment(s): PROSTATE CA Mother Family Medical History: Osteoarthritis (OA) Additional Family Medical History / Comment(s): MOM IS 71 General Exam - General Exam Comments Initial Comments: This is a well-developed well-nourished male who was lethargic does respond to painful stimulus is moving his extremities. Limitations: altered mental status, physical limitation General appearance: lethargic, obtunded Head exam: Present: other (Ecchymosis seen around the left orbit with edema to the eyelids. No definitive step-off or crepitation.) Eye exam: Present: PERRL, EOMI, other (Slight amount of exudate the left eye.) ENT exam: Present: mucous membranes dry Neck exam: Present: normal inspection, other (No overt tenderness palpation also given a bruise) Respiratory exam: Present: normal lung sounds bilaterally. Absent: respiratory distress, wheezes, rales, rhonchi, stridor Cardiovascular Exam: Present: regular rate, normal rhythm, normal heart sounds. Absent: systolic murmur, diastolic murmur, rubs, gallop, clicks GI/Abdominal exam: Present: soft, normal bowel sounds. Absent: distended, tenderness, guarding, rebound, rigid Rectal exam: Present: deferred Extremities exam: Present: full ROM, normal capillary refill, other (Old bruising seen to the extremities). Absent: tenderness Back exam: Present: normal inspection Neurological exam: Present: altered, CN II-XII intact, reflexes normal Psychiatric exam: Present: other (Unable to evaluate) Skin exam: Present: warm, dry. Absent: normal color Course Vital Signs 01/25/21 01/25/21 14:16 14:41 Temperature 97.2 F L Pulse Rate 67 71 Respiratory 26 H 20 Rate Blood Pressure 85/69 126/86 O2 Sat by Pulse 98 96 Oximetry - Reevaluation(s) Reevaluation #1: 01/25/21 16:59 Reevaluation patient finds that he does respond to physical stimulus I did discuss the case with the patient's significant other he apparently was seen by her to have a seizure today he did fall out of his chair and chair over he has been noncompliant with his medication recently. No reports of fevers chills nausea vomiting sweats or other illnesses. Reevaluation #2: 01/25/21 17:00 Hernia insertion of a Saenz catheter patient was noted to be more awake alert and conversant. Medical Decision Making - Medical Decision Making I did discuss findings with the patient's significant other as well as with Dr. Delcid and Dr. Marley. Patient be admitted he does appear to have a seizure with a prolonged postictal state. Also demonstrates on CAT scan a left orbital hematoma with a possibly nondisplaced zygomatic arch fracture. He does have chronic sinusitis and appears. He will be admitted with neurological consultation. - Lab Data Result diagrams: 01/25/21 14:34 01/25/21 14:34 Lab Results 01/25/21 01/25/21 Range/Units 14:34 14:34 WBC 11.9 H (3.8-10.6) k/uL RBC 4.11 L (4.30-5.90) m/uL Hgb 13.8 (13.0-17.5) gm/dL Hct 39.4 (39.0-53.0) % MCV 95.9 (80.0-100.0) fL MCH 33.6 (25.0-35.0) pg MCHC 35.0 (31.0-37.0) g/dL RDW 12.3 (11.5-15.5) % Plt Count 231 (150-450) k/uL MPV 8.1 Neutrophils % 84 % Lymphocytes % 7 % Monocytes % 7 % Eosinophils % 1 % Basophils % 0 % Neutrophils # 10.0 H (1.3-7.7) k/uL Lymphocytes # 0.8 L (1.0-4.8) k/uL Monocytes # 0.9 (0-1.0) k/uL Eosinophils # 0.1 (0-0.7) k/uL Basophils # 0.0 (0-0.2) k/uL Sodium 142 (137-145) mmol/L Potassium 4.6 (3.5-5.1) mmol/L Chloride 106 (98-107) mmol/L Carbon Dioxide 24 (22-30) mmol/L Anion Gap 12 mmol/L BUN 40 H (9-20) mg/dL Creatinine 2.26 H (0.66-1.25) mg/dL Est GFR (CKD-EPI)AfAm 36 (>60 ml/min/1.73 sqM) Est GFR (CKD-EPI)NonAf 31 (>60 ml/min/1.73 sqM) Glucose 135 H (74-99) mg/dL Calcium 9.8 (8.4-10.2) mg/dL Magnesium 2.6 H (1.6-2.3) mg/dL Total Bilirubin 0.6 (0.2-1.3) mg/dL AST 44 (17-59) U/L ALT 55 H (4-49) U/L Alkaline Phosphatase 86 (38-126) U/L Total Protein 7.0 (6.3-8.2) g/dL Albumin 4.5 (3.5-5.0) g/dL Serum Alcohol <10 mg/dL - EKG Data -: EKG Interpreted by Me EKG shows normal: sinus rhythm EKG Comments: Sinus rhythm first-degree AV block rate 70. Interval to 42 QRS 110 QT since QTC 466/503 that exodeviation prolonged QT - Radiology Data Radiology results: report reviewed, image reviewed Critical Care Time Critical Care Time: Yes Total Critical Care Time: 39 Critical Care Time: Critical care time includes initial presentation with history physical labs x- rays multiple reevaluation the patient review old charting was available discussed with multiple physicians and the significant other discussed with paramedics upon arrival review of old charting documentation the above and admission orders Disposition Clinical Impression: Generalized seizure, Post-ictal state, Contusion of left orbital tissues, Zygomatic arch fracture, Renal insufficiency syndrome, Noncompliance Disposition: ADMITTED IP TO THIS [facility] Condition: Fair Instructions (If sedation given, give patient instructions): Seizure/Epilepsy Discharge Instructions & Follow-Up Referrals: Srikanth Ervin MD [STAFF PHYSICIAN] - 1-2 days
[2021-01-25] MEDS ORDERED: levETIRAcetam IV 1,000 MG in SALINE 1 100ML.BAG IVPB STA (14:40)
[2021-01-25 14:46] LABS: Basophils % (A) 0 %; Eosinophils # (A) 0.1 k/uL (0-0.7); Eosinophils % (A) 1 %; HCT 39.4 % (39.0-53.0); HGB 13.8 gm/dL (13.0-17.5); Lymphocytes # (A) 0.8 k/uL (1.0-4.8); Lymphocytes % (A) 7 %; MCH 33.6 pg (25.0-35.0); MCV 95.9 fL (80.0-100.0); Mean Platelet Volume 8.1; Monocytes # (A) 0.9 k/uL (0-1.0); Monocytes % (A) 7 %; Neutrophils % (A) 84 %; Platelet Count 231 k/uL (150-450); RBC 4.11 m/uL (4.30-5.90); RDW 12.3 % (11.5-15.5); WBC 11.9 k/uL (3.8-10.6)
[2021-01-25 14:59] LABS: ALT 55 U/L (4-49); AST 44 U/L (17-59); African American GFR (CKD) 36 (>60 ml/min/1.73 sqM); Albumin 4.5 g/dL (3.5-5.0); Alcohol <10 mg/dL; Alkaline Phosphatase 86 U/L (38-126); Anion Gap 12 mmol/L; Blood Urea Nitrogen 40 mg/dL (9-20); Calcium 9.8 mg/dL (8.4-10.2); Carbon Dioxide 24 mmol/L (22-30); Chloride 106 mmol/L (98-107); Glucose 135 mg/dL (74-99); Magnesium 2.6 mg/dL (1.6-2.3); Non-African American GFR(CKD) 31 (>60 ml/min/1.73 sqM); Potassium 4.6 mmol/L (3.5-5.1); Sodium 142 mmol/L (137-145); Total Bilirubin 0.6 mg/dL (0.2-1.3)
--- NOTE | 2021-01-25 15:14 | XR ---
EXAMINATION TYPE: XR chest 1V portable DATE OF EXAM: 01/25/2021 COMPARISON: Chest x-ray May 15, 2020 HISTORY: Seizure and weakness. TECHNIQUE: Single frontal view of the chest is obtained. FINDINGS: There is no new suspicious focal air space opacity, pleural effusion, or pneumothorax seen . The cardiac silhouette size is stable and within normal limits. The osseous structures are intac t. IMPRESSION: No acute process. No significant change from prior.
--- NOTE | 2021-01-25 16:00 | CT ---
EXAMINATION TYPE: CT brain cspine wo con DATE OF EXAM: 01/25/2021 COMPARISON: Brain 05/15/2020 HISTORY: 55-year-old male Left sided orbital bruising, pain, and swelling. Possible seizure. CT DLP: 1261 mGycm Automated exposure control for dose reduction was used. Technique: Examination of the head was done in axial plane without intravenous contrast. Coronal and sagittal reconstructions performed. CT of the cervical spine was obtained in axial plane without intravenous injection of contrast mater ial. Coronal and sagittal reformatted images were obtained from the axial views for evaluation of f ractures, spinal alignment and canal. FINDINGS: Head: There is no evidence of acute intracranial hemorrhage, acute ischemic changes, mass, mass-effect, or extra-axial fluid collection. There is no effacement of cerebral sulci or basal subarachnoid cister ns. There is no hydrocephalus. There is no midline shift. Gordon-white matter distinction is preserv ed. Continued severe opacification posterior left ethmoid air cells. Otherwise, facial bones reported sep arately. Mastoid air cells well pneumatized. No calvarial fracture. There is anterior and left fronta l scalp contusion. Old encephalomalacia at the left frontoparietal junction superiorly. Cervical spine: No craniocervical junction abnormality, predental space widening, or prevertebral soft tissue swellin g. Some degenerative change of the C1 dens articulation. Straightening of the normal cervical lordosis. Mild to moderate degenerative disc disease especially C4-C5 and C6-C7 levels. Discussed by complexes may contribute to variable mild narrowing of the spinal canal. However, assessment of the spinal charo l from C4 to C5 and below is limited due to artifact from patient's shoulders. No acute fracture of the cervical spine. Scattered facet and uncovertebral joint arthropathy. Changes result in variable mild neuroforaminal s tenoses, more moderate to severe on the left and moderate on the right at C6-C7. Sagittal and coronal reformatted images confirm above findings. COMBINED IMPRESSION: 1. No acute intracranial abnormality seen. Facial bones reported separately. Old encephalomalacia lef t frontoparietal junction. 2. Mild/moderate spondylytic change. No acute fracture or malalignment. 3. Facial bones reported separately.
--- NOTE | 2021-01-25 16:06 | CT ---
EXAMINATION TYPE: CT facial bones wo con DATE OF EXAM: 01/25/2021 COMPARISON: None HISTORY: 55-year-old male Left sided orbital bruising, pain, and swelling. Possible seizure. TECHNIQUE: Contiguous axial scanning of the facial bones without IV contrast. Coronal reconstructions performed. CT DLP: 1261 mGycm Automated exposure control for dose reduction was used. FINDINGS: Continued severe opacification posterior left ethmoid air cells. Otherwise, the paranasal sinuses rem ain clear. Slight rightward nasal septal deviation. The mandible, TMJ's, pterygoid plates, zygomatic arches, nasal bones appear intact. There is a linear lucency extending at the anterior margin of the left zygomatic arch. Given the asso ciated left premaxillary and left periorbital soft tissue contusion and hematoma, unable to exclude a subtle nondisplaced fracture here. Otherwise, the facial bones appear intact. Orbits and globes appear intact swelling extends to the bridge of the nose. No underlying nasal bone fracture is clearly identified. IMPRESSION: 1. Extensive soft tissue swelling, bruising, hematoma along the left premaxillary and left periorbita l region extending over the bridge of the nose and bifrontal regions. 2. Underlying nondisplaced fracture along the anterior margin of the left zygomatic arch suspected, r efer to coronal image 26. 3. No additional acute facial bone fracture identified.
[2021-01-25] MEDS ORDERED: NALOXONE 0.4 MG/ML 1 ML VIAL IV PRN (17:05)
[2021-01-25 17:08] LABS: Appearance,Urine Clear (Clear); Bilirubin,Urine Negative (Negative); Blood,Urine Negative (Negative); Color,Urine Yellow; Glucose,Urine (UA) Negative (Negative); Hyaline Casts,Urine 4 /lpf (0-2); Ketones,Urine Negative (Negative); Leukocyte Esterase,Urine Negative (Negative); Nitrite,Urine Negative (Negative); PH, Urine 6.5 (5.0-8.0); Protein,Urine 1+ (Negative); RBC,Urine 2 /hpf (0-5); Specific Gravity,Urine 1.019 (1.001-1.035); Squamous Epithelial Cell,Urine <1 /hpf (0-4); Urobilinogen,Urine <2.0 mg/dL (<2.0); WBC,Urine <1 /hpf (0-5)
[2021-01-25 17:16] LABS: Amphetamine Screen,Urine Not Detected (NotDetected); Barbiturate Screen,Urine Not Detected (NotDetected); Benzodiazepines Screen,Urine Not Detected (NotDetected); Cocaine Screen,Urine Not Detected (NotDetected); Methadone Screen, Urine Not Detected (NotDetected); Opiate Screen,Urine Not Detected (NotDetected); Oxycodone Screen, Urine Detected (NotDetected); Phencyclidine Screen,Urine Not Detected (NotDetected); Tricyclic Antidepressant,Urine Detected (NotDetected); Urn Cannabinoid Scrn Not Detected (NotDetected)
--- NOTE | 2021-01-25 20:23 | HP ---
HISTORY AND PHYSICAL DATE OF SERVICE: 01/25/2021. CHIEF COMPLAINT: Seizure. HISTORY OF PRESENT ILLNESS: This 55-year-old gentleman with a past medical history of multiple medical problems, including CVA, TIA, GERD, hypertension, hyperlipidemia, history of pneumonia, seizure disorder, being followed by Dr. Marlow in the outpatient setting, apparently was noncompliant with medications. The patient also has a history of substance abuse. The family found him and toppled over and he apparently had a seizure which was not witnessed. The patient also had significant ecchymosis and hematoma over the left eye. The patient is confused. Patient is admitted for further evaluation and treatment. The patient is unable to give any coherent history; most of the history is taken from my discussion with staff as well as discussion with the ER physician, Dr. Steiner. CT scan has been done which showed no evidence of any acute abnormality. Severe opacification of the posterior left ethmoid was noted. encephalomalacia of the left frontoparietal junction was also noted. PAST MEDICAL HISTORY: History of CVA, TIA, history of GERD, hypertension, hyperlipidemia, history of pneumonia, history of seizure disorder. HOME MEDICATIONS: Lamictal, zonisamide, valsartan, hydrochlorothiazide, Seroquel, Lioresal, HydroDIURIL, Norvasc, Flomax, Pepcid, Celexa, Coreg, Lipitor. Doses are reviewed. ALLERGIES: NONE. Family history, social history, review of systems could not be taken. Per chart, hypertension, hyperlipidemia, prostate cancer in the family and smoking history. PHYSICAL EXAMINATION: Patient is arousable, confused. Pulse 71, blood pressure 126/83, respiration 20, temperature 97.2, pulse ox 96% on room air. HEENT: Conjunctivae normal. Significant left ecchymosis present. Otherwise, oral mucosa is moist. NECK: No jugular venous distention. No carotid bruit. No lymph node enlargement. CARDIOVASCULAR: S1, S2 muffled. RESPIRATION: Breath sounds diminished at the bases. A few scattered rhonchi. ABDOMEN: Soft, nontender. LEGS: No edema. No swelling. NERVOUS SYSTEM: Moves all 4 limbs. No focal deficit appreciated. SKIN: As mentioned earlier. JOINTS: No active deforming arthropathy. LYMPHATICS: No lymph node palpable in neck, axillae or groin. LABS: WBC 7.3, hemoglobin 13.8, sodium 142, potassium 4.6. Creatinine is 2.26. The baseline creatinine was 2. ASSESSMENT: 1. Acute seizure disorder with breakthrough seizures, possibly secondary to noncompliance. 2. Change in mental status, acute metabolic encephalopathy secondary to seizures. 3. Left eye ecchymosis and hematoma. 4. Increased white count. 5. Increased creatinine with chronic kidney disease, stage 3. 6. History of gastroesophageal reflux disease. 7. History of cerebrovascular accident. 8.encephalomalacia in the left frontoparietal junction. 9. Pneumonia. 10.History of seizure disorder. 11.History of left hemorrhagic stroke with right-sided weakness. 12.Anxiety, bipolar, depression, panic disorder. 13.FULL CODE. RECOMMENDATIONS AND DISCUSSION: In this 55-year-old gentleman who presented with multiple complex medical issues, we will monitor the patient closely. The patient has already received Keppra. Neurology consultation. Seizure precautions. Resume the home medications. Prognosis guarded because of multiple complex medical issues. Further recommendations to follow. Surgery has also been consulted because of the fall and other injuries. See orders for further details. A copy of this dictation is being forwarded to Dr. aMrlow, who is the primary physician. MMSYLVIAL / DEBRAN: [id number] / MTDD
[2021-01-25] MEDS ORDERED: FAMOTIDINE 20 MG TAB PO SCH (21:00)
[2021-01-25] MEDS: lamoTRIgine 25 MG TAB PO SCH (21:23)
[2021-01-25] MEDS: carvediloL 12.5 MG TAB PO SCH (21:23)
[2021-01-25] MEDS: lamoTRIgine 100 MG TAB PO SCH (21:23)
[2021-01-25] MEDS: ATORVASTATIN 80 MG TAB PO SCH (21:23)
[2021-01-25] MEDS: QUEtiapine 100 MG TAB PO SCH (21:23)
[2021-01-25] MEDS: ZONISAMIDE 100 MG CAP PO SCH (21:23)
[2021-01-25] MEDS: BACLOFEN 10 MG TAB PO SCH (21:24)
[2021-01-26] MEDS: SODIUM CHLORIDE 0.9% 1,000 ML IV SCH ×3 (00:03→19:18)
--- NOTE | 2021-01-26 01:18 | ED ---
Medical Decision Making - Lab Data Result diagrams: 01/25/21 14:34 01/25/21 14:34 Lab Results 01/25/21 01/25/21 01/25/21 Range/Units 14:34 14:34 16:58 WBC 11.9 H (3.8-10.6) k/uL RBC 4.11 L (4.30-5.90) m/uL Hgb 13.8 (13.0-17.5) gm/dL Hct 39.4 (39.0-53.0) % MCV 95.9 (80.0-100.0) fL MCH 33.6 (25.0-35.0) pg MCHC 35.0 (31.0-37.0) g/dL RDW 12.3 (11.5-15.5) % Plt Count 231 (150-450) k/uL MPV 8.1 Neutrophils % 84 % Lymphocytes % 7 % Monocytes % 7 % Eosinophils % 1 % Basophils % 0 % Neutrophils # 10.0 H (1.3-7.7) k/uL Lymphocytes # 0.8 L (1.0-4.8) k/uL Monocytes # 0.9 (0-1.0) k/uL Eosinophils # 0.1 (0-0.7) k/uL Basophils # 0.0 (0-0.2) k/uL Sodium 142 (137-145) mmol/L Potassium 4.6 (3.5-5.1) mmol/L Chloride 106 (98-107) mmol/L Carbon Dioxide 24 (22-30) mmol/L Anion Gap 12 mmol/L BUN 40 H (9-20) mg/dL Creatinine 2.26 H (0.66-1.25) mg/dL Est GFR (CKD-EPI)AfAm 36 (>60 ml/min/1.73 sqM) Est GFR (CKD-EPI)NonAf 31 (>60 ml/min/1.73 sqM) Glucose 135 H (74-99) mg/dL Calcium 9.8 (8.4-10.2) mg/dL Magnesium 2.6 H (1.6-2.3) mg/dL Total Bilirubin 0.6 (0.2-1.3) mg/dL AST 44 (17-59) U/L ALT 55 H (4-49) U/L Alkaline Phosphatase 86 (38-126) U/L Total Protein 7.0 (6.3-8.2) g/dL Albumin 4.5 (3.5-5.0) g/dL Urine Color Yellow Urine Appearance Clear (Clear) Urine pH 6.5 (5.0-8.0) Ur Specific [place] 1.019 (1.001-1.035) Urine Protein 1+ H (Negative) Urine Glucose (UA) Negative (Negative) Urine Ketones Negative (Negative) Urine Blood Negative (Negative) Urine Nitrite Negative (Negative) Urine Bilirubin Negative (Negative) Urine Urobilinogen <2.0 (<2.0) mg/dL Ur Leukocyte Esterase Negative (Negative) Urine RBC 2 (0-5) /hpf Urine WBC <1 (0-5) /hpf Ur Squamous Epith Cells <1 (0-4) /hpf Hyaline Casts 4 H (0-2) /lpf Urine Opiates Screen Not Detected (NotDetected) Ur Oxycodone Screen Detected H (NotDetected) Urine Methadone Screen Not Detected (NotDetected) Ur Propoxyphene Screen Not Detected (NotDetected) Ur Barbiturates Screen Not Detected (NotDetected) U Tricyclic Antidepress Detected H (NotDetected) Ur Phencyclidine Scrn Not Detected (NotDetected) Ur Amphetamines Screen Not Detected (NotDetected) U Methamphetamines Scrn Not Detected (NotDetected) U Benzodiazepines Scrn Not Detected (NotDetected) Urine Cocaine Screen Not Detected (NotDetected) U Marijuana (THC) Screen Not Detected (NotDetected) Serum Alcohol <10 mg/dL Disposition Clinical Impression: Generalized seizure, Post-ictal state, Contusion of left orbital tissues, Zygomatic arch fracture, Renal insufficiency syndrome, Noncompliance Disposition: ADMITTED IP TO THIS [facility] Condition: Fair Procedures - Restraint - Face to Face Restraint Occurrence 1 Patient's Immediate Situation: Endangers self safety Patient's Reaction to the Intervention: Appropriate, Uncooperative, Restless, Resistive to care Patient's Medical & Behavioral Condition: Awake Need to Continue or Terminate Restraint or Seclusion: Continue Face to Face Eval of Restraint Date: 01/25/21 Face to Face Eval of Restraint Time: 23:30
[2021-01-26 06:22] LABS: Basophils # (A) 0.1 k/uL (0-0.2); Basophils % (A) 0 %; Eosinophils % (A) 0 %; HCT 43.8 % (39.0-53.0); HGB 14.7 gm/dL (13.0-17.5); Lymphocytes % (A) 6 %; MCH 33.6 pg (25.0-35.0); MCHC 33.6 g/dL (31.0-37.0); Mean Platelet Volume 8.3; Monocytes # (A) 1.5 k/uL (0-1.0); Monocytes % (A) 10 %; Neutrophils # (A) 13.1 k/uL (1.3-7.7); Neutrophils % (A) 83 %; Platelet Count 235 k/uL (150-450); RBC 4.38 m/uL (4.30-5.90); RDW 12.3 % (11.5-15.5); WBC 15.8 k/uL (3.8-10.6)
[2021-01-26] MEDS ORDERED: FAMOTIDINE 20 MG TAB PO SCH (09:00)
[2021-01-26] MEDS: lamoTRIgine 100 MG TAB PO SCH ×2 (09:01→21:02)
[2021-01-26] MEDS: lamoTRIgine 25 MG TAB PO SCH (09:01)
[2021-01-26] MEDS: CITALOPRAM HYDROBROMIDE 20 MG TAB PO SCH (09:01)
[2021-01-26] MEDS: amLODIPine 5 MG TAB PO SCH (09:01)
[2021-01-26] MEDS: carvediloL 12.5 MG TAB PO SCH ×2 (09:01→14:47)
[2021-01-26] MEDS: hydroCHLOROthiazide 25 MG TAB PO SCH (09:01)
[2021-01-26] MEDS: BACLOFEN 10 MG TAB PO SCH ×3 (09:01→21:02)
[2021-01-26] MEDS: MAGNESIUM OXIDE 400 MG TAB PO SCH (09:02)
[2021-01-26] MEDS: TAMSULOSIN 0.4 MG CAP.ER.24H PO SCH (09:02)
[2021-01-26] MEDS: VALSARTAN 160 MG TAB PO SCH (09:02)
[2021-01-26] MEDS: ZONISAMIDE 100 MG CAP PO SCH ×2 (09:02→21:03)
--- NOTE | 2021-01-26 09:04 | P.CNNES ---
History of Present Illness Consult date: 01/26/21 Requesting physician: Foster Steiner Reason for Consult: seizure with post-ictal state History of Present Illness: This is a 55-year-old gentleman with medical history of epilepsy (due to post- stroke), old left parietal hemorrhagic stroke (2014) with residual right sided weakness, hypertension, tobacco use, depression who presented to the emergency department who presented to the emergency department for suspected seizure. Patient is known to our neurology service. Some of the history is obtained from medical records and patient's nurse since patient is unable to provide that history. The ED note it is mentioned that the patient was in his usual state last evening and was found apparently by family on the floor next his chair and he was toppled over. It is documented by the ED that is there is no definite of seizure activity that was seen by family. The patient was noted to have trauma to left orbit. He was more responsive on route to the hospital and was moving all extremities. Was notified by the patient's nurse that the patient the has a history of medication noncompliance as well as polysubstance use. Per the patient's nurse and she stated that overnight the patient was hostile and aggressive and was spitting and nurses therefore the patient had to be 4 point restraint as well as the placed a knit mask over the face to avoid spitting. Otherwise no seizure-like activity. Per the EMR patient home medication for seizures is Lamictal 225 mg 1 tablet twice a day as well as zonogram 200 mg 1 tablet twice a day. He is also on home medication of baclofen and Seroquel 300 mg daily at bedtime. Patient was seen last by Dr. Lancaster on 04/27/2020 an episode of unresponsiveness. He recommended for the patient the to continue the same dose of Lamictal 225 mg twice a day and Vimpat 150 mg twice a day. Some of the workup in the hospital consisted of: Initial vital signs his blood pressure of 85/69, heart rate of 67, respiratory of 26, temperature of 97.2 Fahrenheit axillary and pulse ox of 98% room air. Otherwise patient's a blood pressure has been in the range of 120s to 140s systolic. Initial white blood cell is 11.9 repeated 15.8. Creatinine is 2.26, sodium is 142, glucose is 135, calcium is 9.8, magnesium 2.6, AST is 44 and ALT of 55. Urine drug screen: +ve for oxycodone and Tricyclic. Lamotrigene is 7.0 (normal is 2-15). Serum alcohol was less than 10. Otherwise the rest of urine drug serene is negative. Batres virus PCR was not detected. Urinalysis negative for urinary tract infection. CT of the head is reported as old encephalomalacia over the left frontal parietal junction. No acute intracranial abnormality seen. Facial bone reported that separately. Personally reviewed the CT of the head there is no acute subacute ischemic stroke or no parenchymal hemorrhage is appreciated. CT of the cervical spine is reported as Mild to moderate spondylitic change. No acute fracture or malalignment. CT facial is reported as extensive soft tissue swelling or bruising, hematoma along the left Giorgio maxillary and left periorbital region extending over the bridge of the nose and not bifrontal region. Underlying non-displaced fracture along the anterior margin of the left zygomatic arch suspected, refer to the coronal image 26. No additional acute left facial bone fracture identified. Review of Systems Review of system is limited but the pertitent positive and negative as per HPI. Past Medical History Past Medical History: CVA/TIA, GERD/Reflux, Hyperlipidemia, Hypertension, Pne umonia, Seizure Disorder Additional Past Medical History / Comment(s): L hemorrhagic stroke-R sided weakness and has had occasions of increased irritability/agitation/isolation, multiple mental health unit admissions with most recent on [facility]/18 [facility] with major depression/suicidal ideations without plan/acute anxiety, uncontrolled seizures, L pneumothorax with chest tube, migraines-has used other people's narcotics in the past per past medical record but pt denies, benign rectal polyp, etoh last drink more than 10 years ago. History of Any Multi-Drug Resistant Organisms: None Reported Past Surgical History: No Surgical Hx Reported Additional Past Surgical History / Comment(s): COLONOSCOPY POLYPS REMOVED-NEG, bilateral cataract removal, R testicular surgery as a little boy. Past Anesthesia/Blood Transfusion Reactions: No Reported Reaction Additional Past Anesthesia/Blood Transfusion Reaction / Comment(s): Pt has never recieved blood. Past Psychological History: Anxiety, Bipolar, Depression, Panic Disorder Additional Psychological History / Comment(s): Pt normally resides alone. He uses a walker prn. He does not drive, his friend, Charles, takes him to [employer]. He gets his prescriptions thru [facility] in blister packs and normally can manage his meds from there but not the past few days, his friend has been giving him his prescribed medications. Pt's friend, Charles, states pt takes prescription drugs like xanax that are not prescribed to him. She states pt's mother just recently gave him some xanax. Smoking Status: Current every day smoker Past Alcohol Use History: None Reported Additional Past Alcohol Use History / Comment(s): Pt has hx of alcohol abuse but has not drank in 10 yrs except for one slip on his birthday 1 yrs ago. He is at least a 2 ppd smoker. Past Drug Use History: None Reported Additional Drug Use History / Comment(s): Pt has hx of polysubstance abuse per PMR-Adderall/xanax/flexeril. Pt's friend states he has polysubstance abuse with prescription meds/not always his own prescriptions. - Past Family History Father Family Medical History: Cancer, Hyperlipidemia, Hypertension, Prostate Disorder Additional Family Medical History / Comment(s): PROSTATE CA Mother Family Medical History: Osteoarthritis (OA) Additional Family Medical History / Comment(s): MOM IS 71 Medications and Allergies Home Medications Medication Instructions Recorded Confirmed Type Aspirin [Adult Low Dose Aspirin EC] 81 mg PO DAILY 10/24/18 01/25/21 History Atorvastatin [Lipitor] 80 mg PO HS 10/24/18 01/25/21 History Magnesium Oxide [Mag-Ox] 400 mg PO DAILY #28 tab 11/05/18 01/25/21 Rx Famotidine [Pepcid] 20 mg PO BID #60 tab 11/21/18 01/25/21 Rx Tamsulosin HCl [Flomax] 0.4 mg PO DAILY 12/24/19 01/25/21 History lamoTRIgine [LaMICtal] 200 mg PO BID tab 01/16/20 01/25/21 Rx Citalopram Hydrobromide [CeleXA] 40 mg PO DAILY 04/26/20 01/25/21 History QUEtiapine FUMARATE [SEROquel] 300 mg PO HS 04/26/20 01/25/21 History lamoTRIgine [LaMICtal] 25 mg PO BID #0 04/28/20 01/25/21 Rx Carvedilol [Coreg] 25 mg PO BID 05/15/20 01/25/21 History amLODIPine [Norvasc] 5 mg PO DAILY 05/15/20 01/25/21 History hydroCHLOROthiazide [Hydrodiuril] 25 mg PO DAILY 05/15/20 01/25/21 History Baclofen [Lioresal] 20 mg PO TID 01/25/21 01/25/21 History Valsartan/Hydrochlorothiazide 1 tab PO DAILY 01/25/21 01/25/21 History [Valsartan-Hctz 160-25 mg Tab] Zonisamide [Zonegran] 200 mg PO BID 01/25/21 01/25/21 History Allergies Allergy/AdvReac Type Severity Reaction Status Date / Time No Known Allergies Allergy Verified 01/25/21 16:26 Physical Examination - Vital Signs Vital Signs: Vital Signs Temp Pulse Pulse Resp BP BP Pulse Ox 01/26/21 04:58 99.1 F 69 16 141/78 99 01/26/21 00:50 98.4 F 77 16 141/89 96 01/26/21 00:45 16 01/25/21 23:57 81 18 139/87 99 01/25/21 22:30 80 18 140/80 98 01/25/21 21:15 70 18 129/79 92 L 01/25/21 19:20 72 20 127/94 95 01/25/21 18:27 83 20 131/81 96 01/25/21 17:30 74 18 128/83 96 01/25/21 16:58 82 18 105/56 95 01/25/21 16:30 78 18 126/76 98 01/25/21 15:30 80 20 122/70 98 01/25/21 14:41 71 20 126/86 96 01/25/21 14:16 97.2 F L 67 26 H 85/69 98 Intake and Output 01/25/21 01/26/21 01/26/21 22:59 06:59 14:59 Output Total 1000 Balance -1000 Output: Urine 1000 Other: Voiding Method Indwelling Catheter GENERAL: The patient is lying in bed and is restless. He seems to be in acute distress. HENT: Has hematoma around the left eye and bruise in mid-forehead. Is moving his neck side to side without difficulty. Has a knit mask over face. CHEST: The heart rate is regular rate rhythm. No murmurs to auscultation. LUNG: Clear to auscultation bilaterally no wheezing noted throughout. Not labored breathing. ABDOMEN/GI: Bowel sounds present in all 4 quadrants. No tenderness to palpation throughout. NEUROLOGICAL: Limited because of his cooperation. Higher mental function: The patient is awake, alert oriented to self. With options he was able to chose the correct year. Otherwise the patient is preservation and repeating himself. Unable to assess his language. Followed few simple command (thumbs up and stuck his tongue out once). Otherwise not following commands. , Cranial nerves: The pupil over the right is 2-3mm and reactive to light but has hematoma over the left and upon trying his left eye he was in pain and was resistant. Could not assess Visual callejas. No facial weakness appreciated. No dysarthria. Rest of cranial nerves could not be assessed. Motor: Gait is deferred. Upon removing his all 4 point restraints The strength is moving the left side > right side (has history of mild hemiparesis over the right from old stroke). Normal bulk. Could not assess tone because of cooperation. Cerebellum: Could not asses. Sensation:Could not asses. Reflexes (right/left): Could not asses. Plantars are mute bilaterally. Results - Laboratory Findings CBC and BMP: 01/26/21 05:23 01/25/21 14:34 Abnormal Lab Findings: Abnormal Labs 01/25/21 01/25/21 01/25/21 14:34 14:34 16:58 WBC 11.9 H RBC 4.11 L Neutrophils # 10.0 H Lymphocytes # 0.8 L Monocytes # BUN 40 H Creatinine 2.26 H Glucose 135 H Magnesium 2.6 H ALT 55 H Urine Protein 1+ H Hyaline Casts 4 H Ur Oxycodone Screen Detected H U Tricyclic Antidepress Detected H 01/26/21 05:23 WBC 15.8 H RBC Neutrophils # 13.1 H Lymphocytes # Monocytes # 1.5 H BUN Creatinine Glucose Magnesium ALT Urine Protein Hyaline Casts Ur Oxycodone Screen U Tricyclic Antidepress Assessment and Plan Assessment: Episode of unresponsiveness home with confusion afterwards. Suspect provoked seizure due to medication non-compliance (would expect his Lamictal level to be higher since on high dose). Suspected Non-displaced fracture of left zygomatic arch from fall. History of post stroke epilepsy History of left fronto-parietal hemorrhage in 2015 with residual mild right hemiparesis Acute on chronic kidney insufficiency Hypertension Polysubstance use (+UDS for Oxycodone even though per EMR is not perscribed) Tobacco use Depression Plan: * In the ED the patient was given Keppra 1 g once. * He was continued on his home dose of Lamictal 225mg one tablet twice a day area didn't is also continued on his home dose of zonisamide 200 mg 1 tablet twice a day. In the past per Dr. Lancaster he recommended on Vimpat 150mg 1 tab bid in addition to his Lamictal but not sure if patient could not tolerate medication or his Neurologist modified medication since it failed. Will verify what medication he truly is on. * Patient is on seizure precaution pads. * Continue neuro checks * General surgery is consulted. * We'll defer the rest of the medical management to the primary team. * Upon discharge recommend the patient to follow-up with his neurologist within 1-2 weeks. Update: Spoke with the patient's girlfriend via phone and she stated that patient a day prior to presenting to the hospital he missed he night dose and next morning dose. He forgets to take his medication mostly at night.She said he is having a seizure on a daily basis. She denies patient has any history of illicit drug use and not sure about use of Oxycodone. He had an Epilepsy Monitoring Unit (a couple months ago) for p ossibly 3-5 days at [facility] ([place]) he was started on Zonisamide. She said that she think at that time he was taken off a medication (?Lacosamide) and was kept on Lamictal. She is unsure of exact dose but thinks 125mg 1 tab bid for Lamictal. She said the patient continues to be dizzy. He could not tolerate Keppra in the past. Patient follow-up with Dr. Lai for his neurological management and has a follow-up appointment soon. I spoke with our inpatient pharmacy and they contacted his pharmacy and it was verified that he is perscribed Lamictal 225mg 1 tab bid and Zonisamide 200mg 1 tab bid. I asked his girlfriend to verify with the bottle. Also I asked her for patient to continue to follow-up with epilepsy team at [facility] since he had a recent EMU and help with management. I will decrease Lamictal from 225mg 1 tab bid to 200mg bid, continue Zonisamide 200mg bid and start patient on Onfi 5mg 1 tab bid (asked pharmacy if we get the medication since not available as formulary). I feel patient is on high dose of Lamictal which can cause dizziness and recommend titrating slowly and can be done as outpatient after following-up with his neurology team. Thank you for the consultation. The plan is discussed with the patient's nurse. Jose Fernando MD Neuro-Hospitalist. Time with Patient: Greater than 30
[2021-01-26] MEDS ORDERED: LORazepam 2 MG/ML INJ IV STA (09:47)
[2021-01-26] MEDS ORDERED: HALOPERIDOL LACTATE 5 MG/ML 1 ML VIAL IM PRN (10:56)
--- NOTE | 2021-01-26 12:10 | P.GSCN ---
History of Present Illness Consult date: 01/26/21 History of present illness: CHIEF COMPLAINT: Head injury and episode of unresponsiveness HISTORY OF PRESENT ILLNESS: This is a 55-year-old male with a history of seizure disorder and substance abuse. History was obtained from patient's chart. He is currently in 4. restraints due to aggressive episode last night and he is awake but unable to answer questions. Apparently patient had been sitting in a chair at home and family found him on the floor with the chair palpable. Patient has injury to his face. He is noncompliant with his seizure medications. Neurology is following and has adjusted seizure medications. Patient did have a computed tomography scan of the face completed which did show a hematoma of the left maxillary and left periorbital region as well as a nondisplaced fracture of the left zygomatic arch is suspected. Patient states no to every question that is asked. He was unable to even tell me his name or where he was. Currently afebrile. Vitals are stable. Surgical service consulted due to fall and trauma PAST MEDICAL HISTORY: Seizure, CVA, GERD, hyperlipidemia, hypertension. Anxiety, bipolar, depression, panic disorder PAST SURGICAL HISTORY: None MEDICATIONS: See list. ALLERGIES: See list. SOCIAL HISTORY: No illicit drug use. Smoker. Prior history of alcohol use. REVIEW OF SYSTEMS: CONSTITUTIONAL: Denies fever or chills. HEENT: Denies blurred vision, vision changes, or eye pain. Denies hemoptysis CARDIOVASCULAR: Denies chest pain or pressure. RESPIRATORY: No shortness of breath. GASTROINTESTINAL: Denies any nausea or vomiting or bowel movement changes HEMATOLOGIC: Denies bleeding disorders. GENITOURINARY: Denies any blood in urine or increased urinary frequency. SKIN: Denies pruitis. Denies rash. PHYSICAL EXAM: VITAL SIGNS: Reviewed GENERAL: Well-developed in no acute distress. HEENT: No sclera icterus. Extraocular movements grossly intact. Moist buccal mucosa. Head is traumatic, normocephalic. No nasal drainage. Patient has significant bruising and swelling around both eyes. Left eye patient is able to open a small amount. ABDOMEN: Soft. Nondistended. Nontender NEUROLOGIC: Awake and alert. Orientated 0. Patient answers no to every question. LABORATORY DATA: WBC 15.8 Hgb 14.7 platelets 235 Creatinine 2.26 potassium 4.6 sodium 142 magnesium 2.6 AST 44 ALT 55 Drug screen positive for oxycodone and tricyclic antidepressants Alcohol level less than 10 IMAGING: Computed tomography scan of face extensive soft tissue swelling, bruising, hematoma along the left pre-maxillary and left periorbital region extending over the bridge of the nose and bifrontal regions. Underlying nondisplaced fracture along the anterior margin of the left zygomatic arch suspected. No additional acute facial bone fracture identified. CT of head and cervical spine no acute intracranial abnormality seen. Old encephalomalacia left frontal parietal junction. No acute fracture or malalignment Chest x-ray no acute process ASSESSMENT: 1. Fall with trauma to facial bones 2. Hematoma along the left premaxillary and left periorbital region 3. Possible nondisplaced fracture of the left zygomatic arch 4. Episode of unresponsiveness and confusion. Possible seizure. Followed by neurology 5. Medication noncompliance PLAN: -No surgical intervention planned -Continue supportive care -Continue neurology workup -Continue regular diet -Recommend ENT consult for suspected zygomatic arch fracture Thank you for this consultation Physician Director Product note has been reviewed by physician. Signing provider agrees with the documented findings, assessment, and plan of care. Past Medical History Past Medical History: CVA/TIA, GERD/Reflux, Hyperlipidemia, Hypertension, Pneumonia, Seizure Disorder Additional Past Medical History / Comment(s): L hemorrhagic stroke-R sided weakness and has had occasions of increased irritability/agitation/isolation, multiple mental health unit admissions with most recent on 10/24/18 [facility] with major depression/suicidal ideations without plan/acute anxiety, uncontrolled seizures, L pneumothorax with chest tube, migraines-has used other people's narcotics in the past per past medical record but pt denies, benign rectal polyp, etoh last drink more than 10 years ago. History of Any Multi-Drug Resistant Organisms: None Reported Past Surgical History: No Surgical Hx Reported Additional Past Surgical History / Comment(s): COLONOSCOPY POLYPS REMOVED-NEG, bilateral cataract removal, R testicular surgery as a little boy. Past Anesthesia/Blood Transfusion Reactions: No Reported Reaction Additional Past Anesthesia/Blood Transfusion Reaction / Comm: Pt has never recieved blood. Past Psychological History: Anxiety, Bipolar, Depression, Panic Disorder Additional Psychological History / Comment(s): Pt normally resides alone. He uses a walker prn. He does not drive, his friend, Charles, takes him to [facility]. H e gets his prescriptions thru [facility] in blister packs and normally can manage his meds from there but not the past few days, his friend has been giving him his prescribed medications. Pt's friend, Charles, states pt takes prescription drugs like xanax that are not prescribed to him. She states pt's mother just recently gave him some xanax. Smoking Status: Current every day smoker Past Alcohol Use History: None Reported Additional Past Alcohol Use History / Comment(s): Pt has hx of alcohol abuse but has not drank in 10 yrs except for one slip on his birthday 1 yrs ago. He is at least a 2 ppd smoker. Past Drug Use History: None Reported Additional Drug Use History / Comment(s): Pt has hx of polysubstance abuse per PMR-Adderall/xanax/flexeril. Pt's friend states he has polysubstance abuse with prescription meds/not always his own prescriptions. - Past Family History Father Family Medical History: Cancer, Hyperlipidemia, Hypertension, Prostate Disorder Additional Family Medical History / Comment(s): PROSTATE CA Mother Family Medical History: Osteoarthritis (OA) Additional Family Medical History / Comment(s): MOM IS 71 Medications and Allergies Home Medications Medication Instructions Recorded Confirmed Type Aspirin [Adult Low Dose Aspirin EC] 81 mg PO DAILY 10/24/18 01/25/21 History Atorvastatin [Lipitor] 80 mg PO HS 10/24/18 01/25/21 History Magnesium Oxide [Mag-Ox] 400 mg PO DAILY #28 tab 11/05/18 01/25/21 Rx Famotidine [Pepcid] 20 mg PO BID #60 tab 11/21/18 01/25/21 Rx Tamsulosin HCl [Flomax] 0.4 mg PO DAILY 12/24/19 01/25/21 History lamoTRIgine [LaMICtal] 200 mg PO BID tab 01/16/20 01/25/21 Rx Citalopram Hydrobromide [CeleXA] 40 mg PO DAILY 04/26/20 01/25/21 History QUEtiapine FUMARATE [SEROquel] 300 mg PO HS 04/26/20 01/25/21 History lamoTRIgine [LaMICtal] 25 mg PO BID #0 04/28/20 01/25/21 Rx Carvedilol [Coreg] 25 mg PO BID 05/15/20 01/25/21 History amLODIPine [Norvasc] 5 mg PO DAILY 05/15/20 01/25/21 History hydroCHLOROthiazide [Hydrodiuril] 25 mg PO DAILY 05/15/20 01/25/21 History Baclofen [Lioresal] 20 mg PO TID 01/25/21 01/25/21 History Valsartan/Hydrochlorothiazide 1 tab PO DAILY 01/25/21 01/25/21 History [Valsartan-Hctz 160-25 mg Tab] Zonisamide [Zonegran] 200 mg PO BID 01/25/21 01/25/21 History Allergies Allergy/AdvReac Type Severity Reaction Status Date / Time No Known Allergies Allergy Verified 01/25/21 16:26 Surgical - Exam Vital Signs Temp Pulse Resp BP Pulse Ox 97.2 F L 67 26 H 85/69 98 01/25/21 14:16 01/25/21 14:16 01/25/21 14:16 01/25/21 14:16 01/25/21 14:16 Results - Labs 01/26/21 05:23 01/26/21 05:23 Abnormal Lab Results - Last 24 Hours (Table) 01/25/21 01/25/21 01/25/21 Range/Units 14:34 14:34 16:58 WBC 11.9 H (3.8-10.6) k/uL RBC 4.11 L (4.30-5.90) m/uL Neutrophils # 10.0 H (1.3-7.7) k/uL Lymphocytes # 0.8 L (1.0-4.8) k/uL Monocytes # (0-1.0) k/uL BUN 40 H (9-20) mg/dL Creatinine 2.26 H (0.66-1.25) mg/dL Glucose 135 H (74-99) mg/dL Magnesium 2.6 H (1.6-2.3) mg/dL ALT 55 H (4-49) U/L Urine Protein 1+ H (Negative) Hyaline Casts 4 H (0-2) /lpf Ur Oxycodone Screen Detected H (NotDetected) U Tricyclic Antidepress Detected H (NotDetected) 01/26/21 Range/Units 05:23 WBC 15.8 H (3.8-10.6) k/uL RBC (4.30-5.90) m/uL Neutrophils # 13.1 H (1.3-7.7) k/uL Lymphocytes # (1.0-4.8) k/uL Monocytes # 1.5 H (0-1.0) k/uL BUN (9-20) mg/dL Creatinine (0.66-1.25) mg/dL Glucose (74-99) mg/dL Magnesium (1.6-2.3) mg/dL ALT (4-49) U/L Urine Protein (Negative) Hyaline Casts (0-2) /lpf Ur Oxycodone Screen (NotDetected) U Tricyclic Antidepress (NotDetected) Diabetes panel 01/25/21 Range/Units 14:34 Sodium 142 (137-145) mmol/L Potassium 4.6 (3.5-5.1) mmol/L Chloride 106 (98-107) mmol/L Carbon Dioxide 24 (22-30) mmol/L BUN 40 H (9-20) mg/dL Creatinine 2.26 H (0.66-1.25) mg/dL Glucose 135 H (74-99) mg/dL Calcium 9.8 (8.4-10.2) mg/dL AST 44 (17-59) U/L ALT 55 H (4-49) U/L Alkaline Phosphatase 86 (38-126) U/L Total Protein 7.0 (6.3-8.2) g/dL Albumin 4.5 (3.5-5.0) g/dL Calcium panel 01/25/21 Range/Units 14:34 Calcium 9.8 (8.4-10.2) mg/dL Albumin 4.5 (3.5-5.0) g/dL Pituitary panel 01/25/21 Range/Units 14:34 Sodium 142 (137-145) mmol/L Potassium 4.6 (3.5-5.1) mmol/L Chloride 106 (98-107) mmol/L Carbon Dioxide 24 (22-30) mmol/L BUN 40 H (9-20) mg/dL Creatinine 2.26 H (0.66-1.25) mg/dL Glucose 135 H (74-99) mg/dL Calcium 9.8 (8.4-10.2) mg/dL Adrenal panel 01/25/21 Range/Units 14:34 Sodium 142 (137-145) mmol/L Potassium 4.6 (3.5-5.1) mmol/L Chloride 106 (98-107) mmol/L Carbon Dioxide 24 (22-30) mmol/L BUN 40 H (9-20) mg/dL Creatinine 2.26 H (0.66-1.25) mg/dL Glucose 135 H (74-99) mg/dL Calcium 9.8 (8.4-10.2) mg/dL Total Bilirubin 0.6 (0.2-1.3) mg/dL AST 44 (17-59) U/L ALT 55 H (4-49) U/L Alkaline Phosphatase 86 (38-126) U/L Total Protein 7.0 (6.3-8.2) g/dL Albumin 4.5 (3.5-5.0) g/dL
[2021-01-26 12:45] LABS: African American GFR (CKD) 57.2 (60.0-200.0); Anion Gap 16.8 mmol/L (4.00-12.00); BUN/Creat Ratio 22.08 Ratio (12.00-20.00); Calcium 9.7 mg/dL (8.7-10.3); Carbon Dioxide 18.2 mmol/L (21.6-31.8); Non-African American GFR(CKD) 49.4 (60.0-200.0); Potassium 3.8 mmol/L (3.5-5.5)
[2021-01-26] MEDS: 1: THIAMINE 100 MG, FOLIC ACID 1 MG in SODIUM CHLORIDE 0.9% 1,000 ML 2: SODIUM CHLORIDE IVPB SCH ×3 (12:45→23:10)
[2021-01-26] MEDS: MULTIVITAMINS, THERA 1 EACH TAB PO SCH (12:45)
--- NOTE | 2021-01-26 13:10 | P.PN ---
Progress Note - Text Progress Note Date: 01/26/21 Psychiatry attempted to evaluate the patient at approximately 12:45 PM. As at the patient's bedside is the patient's friend/significant other Charles. The patient is unable to participate in the psychiatric interview as he appears to be sedated and unarousable at this time. The patient's significant other Charles provides some collateral information stating that she the patient has been expressing low energy, sleeping all day, and has likely been nonadherent with his medications for at least the night before and the morning of his hospitalization. Psychiatry will reattempt to evaluate the patient tomorrow when he is more appropriate for the psychiatric interview.
[2021-01-26] MEDS: FAMOTIDINE 20 MG TAB PO SCH (21:02)
[2021-01-26] MEDS: ATORVASTATIN 80 MG TAB PO SCH (21:03)
[2021-01-26] MEDS: QUEtiapine 100 MG TAB PO SCH (21:05)
--- NOTE | 2021-01-26 21:52 | PN ---
PROGRESS NOTE DATE OF SERVICE: 01/26/2021 This 55-year-old gentleman admitted with seizure disorder also had significant change in mental status. The patient also left eye ecchymosis. No chest pain. No palpitations. No fever. PHYSICAL EXAMINATION: Alert and oriented x3. Pulse is 68, blood pressure 145/51, respirations 16, temperature 98.1, pulse ox 92% on room air. HEENT: Conjunctivae normal. Left eye ecchymosis present. NECK: No jugular venous distention. CARDIOVASCULAR: S1, S2 muffled. RESPIRATION: Breath sounds diminished at the bases. ABDOMEN: Soft, nontender. LABS: WBC 15.8, hemoglobin 14.7. Sodium 140, potassium 3.8 and creatine kinase 728. ASSESSMENT: 1. Acute seizure disorder and breakthrough seizures, possibly secondary to noncompliance. 2. Change in mental status, acute metabolic encephalopathy secondary to seizures. 3. Left eye ecchymosis and hematoma. 4. Increased white count. 5. Increased creatinine with chronic kidney disease, stage 3. 6. History of gastroesophageal reflux disease. 7. History of cerebrovascular accident. 8. Encephalomalacia in the left frontoparietal junction. 9. History of pneumonia. 10.History of seizure disorder. 11.History of left hemorrhagic stroke with right-sided weakness. 12.History of anxiety, bipolar, depression, panic disorder. 13.FULL CODE. RECOMMENDATIONS AND DISCUSSION: I recommend to continue current medications, continue with symptomatic treatment. Closely follow with Neurology. Prognosis guarded because of multiple complex medical issues. Further recommendations to follow. Drug screen is positive for oxycodone and tricyclic antidepressants only. COVID-19 is negative. Further recommendations to follow. We will also obtain ophthalmology consultation. MMODL / IJN: [id number] /
[2021-01-27] MEDS: MAGNESIUM OXIDE 400 MG TAB PO SCH (09:16)
[2021-01-27] MEDS: lamoTRIgine 100 MG TAB PO SCH ×2 (09:16→21:38)
[2021-01-27] MEDS: TAMSULOSIN 0.4 MG CAP.ER.24H PO SCH (09:16)
[2021-01-27] MEDS: MULTIVITAMINS, THERA 1 EACH TAB PO SCH (09:16)
[2021-01-27] MEDS: FAMOTIDINE 20 MG TAB PO SCH ×2 (09:16→21:38)
[2021-01-27] MEDS: carvediloL 12.5 MG TAB PO SCH ×2 (09:16→18:12)
[2021-01-27] MEDS: VALSARTAN 160 MG TAB PO SCH (09:17)
[2021-01-27] MEDS: hydroCHLOROthiazide 25 MG TAB PO SCH (09:17)
[2021-01-27] MEDS: ZONISAMIDE 100 MG CAP PO SCH ×2 (09:17→21:40)
[2021-01-27] MEDS: BACLOFEN 10 MG TAB PO SCH ×3 (09:17→21:38)
[2021-01-27] MEDS: amLODIPine 5 MG TAB PO SCH (09:17)
[2021-01-27] MEDS: CITALOPRAM HYDROBROMIDE 20 MG TAB PO SCH (09:17)
[2021-01-27] MEDS: SODIUM CHLORIDE 0.9% 1,000 ML IV SCH ×2 (09:20→22:22)
[2021-01-27] MEDS: CLOBAZAM 10 MG PO SCH ×3 (09:44→21:38)
--- NOTE | 2021-01-27 11:08 | P.PN ---
Subjective Progress Note Date: 01/27/21 The patient is seen at bedside and he stated he is doing better. No further seizure-like activity. Per the patient he is compliant taking his seizure medications and denies of side-effects. He denies that he had a seizure recently. Objective - Vital Signs Vital signs: Vital Signs Temp 98.3 F 01/27/21 04:31 Pulse 65 01/27/21 09:15 Resp 18 01/27/21 04:31 BP 144/83 01/27/21 09:15 Pulse Ox 99 01/27/21 04:31 Intake & Output 01/26/21 01/27/21 01/27/21 18:59 06:59 18:59 Intake Total 1140 2601.2 Output Total 1100 500 Balance 40 2101.2 Intake: Intake, IV Titration 900 2201.2 Amount Sodium Chloride 0.9% 1, 1200 000 ml @ 100 mls/hr IVPB .BY DURATION PRISCILA Rx#: [id number] Sodium Chloride 0.9% 1, 900 000 ml @ 75 mls/hr IV . [id number] PRISCILA Rx#:[id number] Thiamine 100 mg Folic 1001.2 Acid 1 mg In Sodium Chloride 0.9% 1,000 ml @ 100 mls/hr IVPB .BY DURATION PRISCILA Rx#: [id number] Oral 240 400 Output: Urine 1100 500 Other: Voiding Method Indwelling Catheter Indwelling Catheter - Exam GENERAL: The patient is lying in bed and is not in acute distress. HENT: Has hematoma around the left eye and bruise in mid-forehead. NEUROLOGICAL: Higher mental function: The patient is awake, alert, oriented to self, place and time. Patient is following commands. No aphasia and no neglect. Cranial nerves: The pupils are round, equal and reactive to light and accommodation. He has hematoma meredith-orbital eye and is able to open eye. Visual callejas are full to confrontation throughout. Extraocular movement is intact no nystagmus is noted. Facial sensation is normal to touch throughout. The facial strength is normal throughout. Tongue is midline and moved nccn-[id number] without any difficulty. No dysarthria is noted. Motor: The motor strength is limited but seems the left side is 4+. Cerebellum: Normal finger to nose bilaterally. Sensation: Sensation is normal to touch throughout. - Labs CBC & Chem 7: 01/26/21 05:23 01/26/21 05:23 Labs: Abnormal Lab Results - Last 24 Hours (Table) 01/26/21 Range/Units 05:23 Carbon Dioxide 18.2 L (21.6-31.8) mmol/L Anion Gap 16.80 H (4.00-12.00) mmol/L BUN 34.0 H (9.0-27.0) mg/dL Est GFR (CKD-EPI)AfAm 57.2 L (60.0-200.0) Est GFR (CKD-EPI)NonAf 49.4 L (60.0-200.0) BUN/Creatinine Ratio 22.08 H (12.00-20.00) Ratio Glucose 115 H (70-110) mg/dL Creatine Kinase 728 H (35-257) U/L Assessment and Plan Assessment: Episode of unresponsiveness home with postictal confusion. Suspect provoked seizure due to medication non-compliance (would expect his Lamictal level to be higher since on high dose). Medication non-compliance. Per patient's girlfriend patient has history of medication non-compliance (forget to take his medication at night and states he is having dizziness to his medication but patient denies) Suspected Non-displaced fracture of left zygomatic arch from fall. 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 Started the patient on Onfi 5mg 1 tab bid (is not in formulary and pending for pharmacy to get medication). I feel patient is on high dose of Lamictal which can cause dizziness and recommend titrating slowly and can be done as outpatient after following-up with his neurology team.Waiting for the patient's girlfriend to bring his home antiepileptic bottles to verity what he is taking. (Of note patient could not tolerate Keppra and possibly Vimpat). * Patient is on seizure precaution pads. * Continue neuro checks * An EEG is not warranted. * General surgery is consulted. * We'll defer the rest of the medical management to the primary team. * Patient was notified that per [place] DMV that he cannot drive for 6 month unless seizure free, to avoid heights, using heavy machinary or swim unassisted. * Upon discharge recommend the patient to follow-up with his neurologist within 1-2 weeks (Dr. Lai and Neurology team at [facility] since he had Epilepsy Monitoring Unit). The plan is discussed with the patient and his nurse. Jose Fernando MD Neuro-Hospitalist. Time with Patient: Less than 30
--- NOTE | 2021-01-27 11:20 | P.CN ---
Psychiatric Consult - . Consult date: 01/27/21 Consult:: 01/27/21 11:19 IDENTIFYING DATA: This patient is a single, on Social Security, 55-year-old male with significant history of seizure disorder and depression was admitted to the hospital for suspected seizure. HISTORY OF PRESENT ILLNESS: The patient presented to the hospital on 01/25/21 brought into the hospital for suspected seizure. The patient was found by his family on the floor next to his chair and he was toppled over. The seizure was not witnessed by any family. The patient was noted in the emergency department to have significant signs of facial trauma including swelling and lacerations over his face and over his left orbit. On the wrists department, the patient was also noted to be hostile and aggressive and was spitting at nurses and required 4-point restraints. Psychiatry has been consulted for the patient's history of depression and bipolar disorder. Upon evaluation on the hospital floor, the patient is currently not endorsing any significant issues regarding mood. He states he does not remember anything prior to coming to the hospital. When inquiring about any mood disorder, the patient denies any symptoms of depression or bipolar disorder over the past year. He reports no anhedonia, issues with sleep, appetite, hopelessness, or helplessness. He vehemently denies any suicidal or homicidal ideation, intention, or plan. He reports that he has been happy with his life and has not been expressing any significant psychiatric symptoms over the past year. The patient currently denies any illicit drug use. He states he only smokes 1 PPD of tobacco. He did test positive for oxycodone and TCAs prior to this admission to the hospital. PAST PSYCHIATRIC HISTORY: Patient has a a history of bipolar disorder and depression. The patient is currently on a home regimen of Lamictal 225 mg by mouth twice a day, Nenana 30 mg by mouth at bedtime, Celexa 40 mg by mouth daily. The patient has had multiple inpatient psychiatric hospitalizations with the last time being in October 2018. The patient has had about 11 inpatient psychiatric hospitalizations on 3 W. Currently denies any outpatient psychiatric follow-up. Admit previous suicide attempts but denies any current suicidal ideation. PAST MEDICAL HISTORY: Past Medical History: CVA/TIA, GERD/Reflux, Hyperlipidemia, Hypertension, Pneumonia, Seizure Disorder Additional Past Medical History / Comment(s): L hemorrhagic stroke-R sided weakness and has had occasions of increased irritability/agitation/isolation, multiple mental health unit admissions with most recent on 10/24/18 [facility] with major depression/suicidal ideations without plan/acute anxiety, uncontrolled seizures, L pneumothorax with chest tube, migraines-has used other people's narcotics in the past per past medical record but pt denies, benign rectal polyp, etoh last drink more than 10 years ago. History of Any Multi-Drug Resistant Organisms: None Reported Past Surgical History: No Surgical Hx Reported Additional Past Surgical History / Comment(s): COLONOSCOPY POLYPS REMOVED-NEG, bilateral cataract removal, R testicular surgery as a little boy. Past Anesthesia/Blood Transfusion Reactions: No Reported Reaction Additional Past Anesthesia/Blood Transfusion Reaction / Comment(s): Pt has never recieved blood. Past Psychological History: Anxiety, Bipolar, Depression, Panic Disorder Smoking Status: Current every day smoker Past Alcohol Use History: None Reported Past Drug Use History: None Reported ALLERGIES: NO KNOWN DRUG ALLERGIES. CHEMICAL DEPENDENCY HISTORY: The patient is currently denying any substance abuse aside from tobacco. Despite this, the patient's urinary drug screen did test positive for oxycodone. FAMILY PSYCHIATRIC/SUBSTANCE USE HISTORY: The patient's mother was diagnosed bipolar disorder. SOCIAL HISTORY: Patient was born and raised in [place]. He has 2 siblings. 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 He has been never been and has no children. MENTAL STATUS EXAM: General Appearance: Patient appears to be stated age is alert, pleasant, and cooperative. Patient appears to have poor hygiene and grooming wearing hospital gown with fair eye contact. The patient has significant hematoma around his left eye. He has numerous lacerations all over his face. Behavior: Patient is calmly lying in bed without any agitated behavior. Speech: Patient's speech is fluent and nonpressured. Mood/Affect: Patient reports their mood is "I just have a headache", affect is constricted in range but otherwise euthymic. Suicidality/Homicidality: Patient is denying any suicidal or homicidal ideation, intention, and/or plan. Perceptions: Patient denies any visual hallucinations and denies any auditory hallucinations Though content/process: There is no evidence of any delusional thought content and thought process is linear and goal-directed. Memory and concentration: Patient is alert and oriented to person and place but believed the year was 2019. He was able to identify the current president. Concentration grossly intact for the purposes of this session. Can spell "WORLD" backwards Judgment and insight: Appears fair at this time IMPRESSIONS: Seizure disorder History of poststroke epilepsy History of left frontal parietal hemorrhage in 2015 Rule out opiate use disorder Nicotine dependence Major depressive disorder Alcohol use disorder, in sustained remission PLAN: -At this time patient DOES NOT meet criteria for inpatient psychiatric admission. Currently, the patient is not reporting any significant psychiatric pathology at this time. He is denying any suicidal or homicidal ideation, intention, and/or plan. He appears to be future goal oriented. -Delirium precautions recommended with patient including - avoiding use of narcotics and POTATO SORTER sedatives, limit anticholinergic medications when possible, frequent re-orientation, minimize use of restraints, open window shades during the day and close them at night -Would recommend the following medication changes/additions: Continue Seroquel 200 mg by mouth at bedtime for mood stabilization/augmentation Continue citalopram 40 mg by mouth daily for depression/anxiety Agree with Lamictal 200 mg by mouth twice a day for seizure disorder. Agree with taper from 225 mg as per recommendation from neurology. The patient may continue the taper of Lamictal and the outpatient setting. Patient is also receiving zonisamide 200 mg by mouth twice a day. -Psychiatry will sign off at this point, please contact with any questions. 01/27/21 11:19
[2021-01-27] MEDS: ACETAMINOPHEN TAB 325 MG TAB PO PRN ×2 (13:03→18:25)
--- NOTE | 2021-01-27 13:16 | P.PN ---
Subjective Progress Note Date: 01/27/21 CHIEF COMPLAINT: Head injury and episode of unresponsiveness HISTORY OF PRESENT ILLNESS: Patient is currently sleeping comfortably. Per nurse patient is doing better. He has been up and ambulating. No further seizures. He is tolerating's small amount of diet. Afebrile. PHYSICAL EXAM: VITAL SIGNS: Reviewed. GENERAL: Well-developed in no acute distress. HEENT: No sclera icterus. Extraocular movements grossly intact. Moist buccal mucosa. Head is atraumatic, normocephalic. ABDOMEN: Soft. Nondistended. Nontender. NEUROLOGIC: Alert and oriented. Cranial nerves II through XII grossly intact. ASSESSMENT: 1. Fall with trauma to facial bones 2. Hematoma along the left premaxillary and left periorbital region 3. Possible nondisplaced fracture of the left zygomatic arch 4. Episode of unresponsiveness and confusion. Possible seizure. Followed by neurology 5. Medication noncompliance PLAN: -No surgical intervention planned -Continue supportive care -Continue regular diet -Recommend ENT consult for suspected zygomatic arch fracture Physician Fire Officer note has been reviewed by physician. Signing provider agrees with the documented findings, assessment, and plan of care. Objective - Vital Signs Vital signs: Vital Signs Temp 98.3 F 01/27/21 04:31 Pulse 65 01/27/21 09:15 Resp 18 01/27/21 04:31 BP 144/83 01/27/21 09:15 Pulse Ox 99 01/27/21 04:31 Intake & Output 01/26/21 01/27/21 01/27/21 18:59 06:59 18:59 Intake Total 1140 2601.2 Output Total 1100 500 Balance 40 2101.2 Intake: Intake, IV Titration 900 2201.2 Amount Sodium Chloride 0.9% 1, 1200 000 ml @ 100 mls/hr IVPB .BY DURATION PRISCILA Rx#: [id number] Sodium Chloride 0.9% 1, 900 000 ml @ 75 mls/hr IV . [id number] PRISCILA Rx#:[id number] Thiamine 100 mg Folic 1001.2 Acid 1 mg In Sodium Chloride 0.9% 1,000 ml @ 100 mls/hr IVPB .BY DURATION PRISCILA Rx#: [id number] Oral 240 400 Output: Urine 1100 500 Other: Voiding Method Indwelling Catheter Indwelling Catheter - Labs CBC & Chem 7: 01/26/21 05:23 01/26/21 05:23 Labs: Abnormal Lab Results - Last 24 Hours (Table) 01/26/21 Range/Units 05:23 Carbon Dioxide 18.2 L (21.6-31.8) mmol/L Anion Gap 16.80 H (4.00-12.00) mmol/L BUN 34.0 H (9.0-27.0) mg/dL Est GFR (CKD-EPI)AfAm 57.2 L (60.0-200.0) Est GFR (CKD-EPI)NonAf 49.4 L (60.0-200.0) BUN/Creatinine Ratio 22.08 H (12.00-20.00) Ratio Glucose 115 H (70-110) mg/dL Creatine Kinase 728 H (35-257) U/L
[2021-01-27] MEDS: 1: THIAMINE 100 MG, FOLIC ACID 1 MG in SODIUM CHLORIDE 0.9% 1,000 ML 2: SODIUM CHLORIDE IVPB SCH (18:13)
--- NOTE | 2021-01-27 21:28 | PN ---
PROGRESS NOTE DATE OF SERVICE: 01/27/2021 This 55-year-old gentleman who was admitted with seizure disorder had breakthrough seizures. The patient also received thiamine and the patient also had possible Wernicke's encephalopathy. No chest pain. No palpitations. No fever. PHYSICAL EXAMINATION: Alert and oriented x2. Pulse 60, blood pressure 130/76, respiration 16, temperature 97.2, pulse ox 98% on room air. HEENT: Conjunctivae normal. NECK: No jugular venous distention. CARDIOVASCULAR: S1, S2 muffled. RESPIRATION: Breath sounds diminished at the bases. ABDOMEN: Soft. NERVOUS SYSTEM: No focal deficit. Vision is normal. LABS: WBC 15.8, hemoglobin 14.7. Creatine kinase 728. ASSESSMENT: 1. Acute seizure disorder and breakthrough seizures, possibly secondary to noncompliance. 2. Change in mental status, acute metabolic encephalopathy secondary to seizures. 3. Wernicke's encephalopathy, acute. 4. Left eye ecchymosis and hematoma without any visual changes. 5. Increased white count. 6. Creatinine with chronic kidney disease, stage 3. 7. History of gastroesophageal reflux disease. 8. History of cardiovascular incident. 9. Encephalomalacia, left frontoparietal area. 10.History of pneumonia. 11.History of seizure disorder. 12.History of left hemorrhagic stroke with right-sided weakness. 13.History of anxiety, bipolar, depression and panic disorder. 14.FULL CODE. RECOMMENDATIONS AND DISCUSSION: I recommend to continue current medications, continue with symptomatic treatment. Otherwise at this time I recommend continuing with vitamin supplementations. Otherwise, social service evaluation. Guarded prognosis because of multiple complex medical issues. Further recommendations to follow. MMODL / IJN: [id number] /
[2021-01-27] MEDS: ATORVASTATIN 80 MG TAB PO SCH (21:38)
[2021-01-27] MEDS: QUEtiapine 100 MG TAB PO SCH (21:39)
[2021-01-28 04:37] VITALS: RESP 18
[2021-01-28 07:24] LABS: Basophils # (A) 0.1 k/uL (0-0.2); Basophils % (A) 1 %; Eosinophils # (A) 0.2 k/uL (0-0.7); Eosinophils % (A) 4 %; HCT 37.8 % (39.0-53.0); HGB 12.5 gm/dL (13.0-17.5); Lymphocytes % (A) 37 %; MCH 32.4 pg (25.0-35.0); MCHC 33.1 g/dL (31.0-37.0); MCV 97.9 fL (80.0-100.0); Mean Platelet Volume 8.4; Monocytes # (A) 0.4 k/uL (0-1.0); Monocytes % (A) 8 %; Neutrophils # (A) 2.6 k/uL (1.3-7.7); Neutrophils % (A) 47 %; Platelet Count 193 k/uL (150-450); RBC 3.86 m/uL (4.30-5.90); WBC 5.5 k/uL (3.8-10.6)
[2021-01-28] MEDS: lamoTRIgine 100 MG TAB PO SCH (08:48)
[2021-01-28] MEDS: MAGNESIUM OXIDE 400 MG TAB PO SCH (08:49)
[2021-01-28] MEDS: CITALOPRAM HYDROBROMIDE 20 MG TAB PO SCH (08:49)
[2021-01-28] MEDS: amLODIPine 5 MG TAB PO SCH (08:49)
[2021-01-28] MEDS: VALSARTAN 160 MG TAB PO SCH (08:49)
[2021-01-28] MEDS: BACLOFEN 10 MG TAB PO SCH (08:49)
[2021-01-28] MEDS: hydroCHLOROthiazide 25 MG TAB PO SCH (08:49)
[2021-01-28] MEDS: TAMSULOSIN 0.4 MG CAP.ER.24H PO SCH (08:49)
[2021-01-28] MEDS: MULTIVITAMINS, THERA 1 EACH TAB PO SCH (08:49)
[2021-01-28] MEDS: ZONISAMIDE 100 MG CAP PO SCH (08:50)
[2021-01-28] MEDS: FAMOTIDINE 20 MG TAB PO SCH (08:50)
[2021-01-28] MEDS: carvediloL 12.5 MG TAB PO SCH (08:51)
[2021-01-28] MEDS: CLOBAZAM 10 MG PO SCH (09:10)
[2021-01-28 11:16] LABS: African American GFR (CKD) 79.7 (60.0-200.0); Anion Gap 11.7 mmol/L (4.00-12.00); BUN/Creat Ratio 15.9 Ratio (12.00-20.00); Blood Urea Nitrogen 18.6 mg/dL (9.0-27.0); Calcium 8.4 mg/dL (8.7-10.3); Carbon Dioxide 18.7 mmol/L (21.6-31.8); Non-African American GFR(CKD) 68.8 (60.0-200.0); Potassium 3.1 mmol/L (3.5-5.5)
--- NOTE | 2021-01-28 11:39 | P.PN ---
Subjective Progress Note Date: 01/28/21 CHIEF COMPLAINT: Head injury and episode of unresponsiveness HISTORY OF PRESENT ILLNESS: Patient is sitting up in bed eating breakfast. Patient is awake and alert. Able to answer questions. He has been up and ambulating. Denies any nausea or vomiting. Tolerating diet. He is followed by psychiatry and neurology. For his facial bone fracture he will be following up with ENT service outpatient. Patient denies any difficulty with vision. PHYSICAL EXAM: VITAL SIGNS: Reviewed. GENERAL: Well-developed in no acute distress. HEENT: No sclera icterus. Extraocular movements grossly intact. Moist buccal mucosa. Head is traumatic, normocephalic. Significant bruising periorbital on the left. He is now able to open his eyes fully. ABDOMEN: Soft. Nondistended. Nontender. NEUROLOGIC: Alert and oriented. Cranial nerves II through XII grossly intact. ASSESSMENT: 1. Fall with trauma to facial bones 2. Hematoma along the left premaxillary and left periorbital region 3. Possible nondisplaced fracture of the left zygomatic arch 4. Episode of unresponsiveness and confusion. Possible seizure. Followed by neurology 5. Medication noncompliance PLAN: -No surgical intervention planned -Continue supportive care -Continue regular diet -Follow up with ENT outpatient -Trauma service will sign off. Please call with any questions or concerns Physician Recreation Therapy Aide note has been reviewed by physician. Signing provider agrees with the documented findings, assessment, and plan of care. Objective - Vital Signs Vital signs: Vital Signs Temp 97.7 F 01/28/21 04:35 Pulse 54 L 01/28/21 08:47 Resp 18 01/28/21 04:35 BP 118/70 01/28/21 08:47 Pulse Ox 96 01/28/21 04:35 Intake & Output 01/27/21 01/28/21 01/28/21 18:59 06:59 18:59 Intake Total 2800 1500 Balance 2800 1500 Intake: Intake, IV Titration 2200 900 Amount Sodium Chloride 0.9% 1, 2200 000 ml @ 100 mls/hr IVPB .BY DURATION PRISCILA Rx#: [id number] Sodium Chloride 0.9% 1, 900 000 ml @ 75 mls/hr IV . [id number] PRISCILA Rx#:[id number] Oral 600 600 Other: Voiding Method Toilet Toilet Toilet Diaper Diaper Diaper # Voids 2 3 # Bowel Movements 1 - Labs CBC & Chem 7: 01/28/21 06:25 01/28/21 06:25 Labs: Abnormal Lab Results - Last 24 Hours (Table) 01/28/21 01/28/21 Range/Units 06:25 06:25 RBC 3.86 L (4.30-5.90) m/uL Hgb 12.5 L (13.0-17.5) gm/dL Hct 37.8 L (39.0-53.0) % Potassium 3.1 L (3.5-5.5) mmol/L Chloride 111 H (96-109) mmol/L Carbon Dioxide 18.7 L (21.6-31.8) mmol/L Glucose 132 H (70-110) mg/dL Calcium 8.4 L (8.7-10.3) mg/dL
--- NOTE | 2021-01-28 11:50 | P.PN ---
Subjective Progress Note Date: 01/28/21 The patient is seen at bedside and had no further seizure-like activity. He states he is doing well. Objective - Vital Signs Vital signs: Vital Signs Temp 97.7 F 01/28/21 04:35 Pulse 54 L 01/28/21 08:47 Resp 18 01/28/21 04:35 BP 118/70 01/28/21 08:47 Pulse Ox 96 01/28/21 04:35 Intake & Output 01/27/21 01/28/21 01/28/21 18:59 06:59 18:59 Intake Total 2800 1500 Balance 2800 1500 Intake: Intake, IV Titration 2200 900 Amount Sodium Chloride 0.9% 1, 2200 000 ml @ 100 mls/hr IVPB .BY DURATION PRISCILA Rx#: [id number] Sodium Chloride 0.9% 1, 900 000 ml @ 75 mls/hr IV . [id number] PRISCILA Rx#:[id number] Oral 600 600 Other: Voiding Method Toilet Toilet Toilet Diaper Diaper Diaper # Voids 2 3 # Bowel Movements 1 - Exam GENERAL: The patient is lying in bed and is not in acute distress. HENT: Has hematoma around the left eye and bruise in mid-forehead--improving. NEUROLOGICAL: Higher mental function: The patient is awake, alert, oriented to self, place and time. Patient is following commands. No aphasia and no neglect. Cranial nerves: The pupils are round, equal and reactive to light and accommodation. He has hematoma meredith-orbital eye and is able to open eye. Visual callejas are full to confrontation throughout. Extraocular movement is intact no nystagmus is noted. Facial sensation is normal to touch throughout. The facial strength is normal throughout. Tongue is midline and moved [id number] without any difficulty. No dysarthria is noted. Motor: The motor strength is right upper is 5- and lower is 5-. Otherwise 5/5 throughout. Cerebellum: Normal finger to nose bilaterally. Sensation: Sensation is normal to touch throughout. - Labs CBC & Chem 7: 01/28/21 06:25 01/28/21 06:25 Labs: Abnormal Lab Results - Last 24 Hours (Table) 01/28/21 01/28/21 Range/Units 06:25 06:25 RBC 3.86 L (4.30-5.90) m/uL Hgb 12.5 L (13.0-17.5) gm/dL Hct 37.8 L (39.0-53.0) % Potassium 3.1 L (3.5-5.5) mmol/L Chloride 111 H (96-109) mmol/L Carbon Dioxide 18.7 L (21.6-31.8) mmol/L Glucose 132 H (70-110) mg/dL Calcium 8.4 L (8.7-10.3) mg/dL Assessment and Plan Assessment: Episode of unresponsiveness home with postictal confusion. Suspect provoked seizure due to medication non-compliance (would expect his Lamictal level to be higher since on high dose). Medication non-compliance. Per patient's girlfriend patient has history of medication non-compliance (forget to take his medication at night and states he is having dizziness to his medication but patient denies) Suspected Non-displaced fracture of left zygomatic arch from fall. 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 Continue Onfi 5mg 1 tab bid (is not in formulary . I feel patient is on high dose of Lamictal which can cause dizziness and recommend titrating slowly and can be done as outpatient after following-up with his neurology team. Per nurse patient brought pills but does not have labels of dose. Per patient he is on Lamictal 225mg at home and Zoninsamide 200mg 1 tab bid for both. (Of note patient could not tolerate Keppra and possibly Vimpat in past). * Patient is on seizure precaution pads. * Continue neuro checks * An EEG is not warranted. * General surgery is consulted. * We'll defer the rest of the medical management to the primary team. * Patient was notified that per [facility] that he cannot drive for 6 month unless seizure free, to avoid heights, using heavy machinary or swim unassisted. * Upon discharge recommend the patient to follow-up with his neurologist within 1-2 weeks (Dr. Lai and Neurology team at [facility] since he had Epilepsy Monitoring Unit). The plan is discussed with the patient and his nurse. Patient is clear from neurological perspective. Jose Fernando MD Neuro-Hospitalist. Time with Patient: Less than 30
[2021-01-28] MEDS ORDERED: THIAMINE 100 MG TAB PO SCH (12:00)
[2021-01-28 13:07] VITALS: BP 94/60; PULSE 57; TEMP 97.5
[2021-01-28] MEDS: ACETAMINOPHEN TAB 325 MG TAB PO PRN (13:08)
--- NOTE | 2021-02-01 08:57 | CDI ---
Documentation Clarification Form Date: 02/01/21 From: Sadie Limon Admit Date: 01/25/2021 05:07:00 PM Patient Name: Robert Jeronimo Visit Number: [id number] Discharge Date: 01/28/2021 04:32:00 PM ATTENTION: The Clinical Documentation Specialists (CDI) and [facility] Coding Staff appreciate your assistance in clarifying documentation. Please respond to the clarification below the line at the bottom and electronically sign. The CDI & [facility] Coding staff will review the response and follow-up if needed. Please note: Queries are made part of the Legal Health Record. If you have any questions, please contact the author of this message via ITS. Dr. Ramon Delcid, Your patient has an elevated creatinine on admission of 2.26. Based on this information and the findings below, is there an additional diagnosis that is clinically appropriate for this patient? Patient history/risk factors: HTN w Stage 3 CKD, right hemiparesis and epilepsy Clinical Indicators: H&P states increased creatinine with CKD stage 3. Treatment: IV fluids Is there an additional diagnosis that is clinically appropriate for this patient? [ ] Acute kidney injury [ ] Other, please specify [ ] Unable to determine Acute kidney injury MTDD
--- NOTE | 2021-02-01 10:59 | CDI ---
Documentation Clarification Form Date: 02/01/21 From: Sadie Limon Admit Date: 01/25/2021 05:07:00 PM Patient Name: Robert Jeronimo Visit Number: [id number] Discharge Date: 01/28/2021 04:32:00 PM ATTENTION: The Clinical Documentation Specialists (CDI) and [facility] Coding Staff appreciate your assistance in clarifying documentation. Please respond to the clarification below the line at the bottom and electronically sign. The CDI & [facility] Coding staff will review the response and follow-up if needed. Please note: Queries are made part of the Legal Health Record. If you have any questions, please contact the author of this message via ITS. Dr. Ramon Delcid, Conflicting documentation has been found in the medical record. As attending physician, please provide clarification. Per your H&P & 01/26 PN "Change in mental status, acute metabolic encephalopathy secondary to seizures." Per your 01/27 PN "Change in mental status, acute metabolic encephalopathy secondary to seizures. 3.Wernicke's encephalopathy, acute." History/Risk Factors: Epilepsy, HTN w Stage 3 CKD, right hemiparesis Clinical Indicators: This 55-year-old gentleman admitted with seizure disorder also had significant change in mental status. Treatment: CT brain cspine wo con, narcon 0.2 IV on 01/25, Haldol 5 mg IM 01/26, Please clarify which diagnosis is most appropriate: [ ] Metabolic encephalopathy [ ] Wernicke's encephalopathy [ ] Both metabolic & Wernicke's encephalopathy [ ] Other (please specify) [ ] Unable to determine Wernicke's encephalopathy already documented MTDD
== END 2021-01-28 16:32 | disposition home or self-care (01) | DRG 101 ==
LOC: SUPCPDRO 14:12 → EC 14:12 → 5NMEDONC 17:07
PROVIDERS: ADMIT Hospitalist; ATTEND Hospitalist
DX: G40.909 Epilepsy, unspecified, not intractable, without status epilepticus (principal); N17.9 Acute kidney failure, unspecified; S02.40FA Zygomatic fracture, left side, initial encounter for closed fracture; I69.351 Hemiplegia and hemiparesis following cerebral infarction affecting right dominant side; E51.2 Wernicke's encephalopathy; F31.30 Bipolar disorder, current episode depressed, mild or moderate severity, unspecified; N18.30 Chronic kidney disease, stage 3 unspecified; F13.11 Sedative, hypnotic or anxiolytic abuse, in remission; Z20.822 Contact with and (suspected) exposure to COVID-19; G93.89 Other specified disorders of brain; S05.12XA Contusion of eyeball and orbital tissues, left eye, initial encounter; T50.916A Underdosing of multiple unspecified drugs, medicaments and biological substances, initial encounter; I12.9 Hypertensive chronic kidney disease with stage 1 through stage 4 chronic kidney disease, or unspecified chronic kidney disease; I69.398 Other sequelae of cerebral infarction; Z91.128 Patient's intentional underdosing of medication regimen for other reason; G43.909 Migraine, unspecified, not intractable, without status migrainosus; I44.0 Atrioventricular block, first degree; K21.9 Gastro-esophageal reflux disease without esophagitis; E78.5 Hyperlipidemia, unspecified; F41.0 Panic disorder [episodic paroxysmal anxiety]; J32.9 Chronic sinusitis, unspecified; F10.11 Alcohol abuse, in remission; F17.210 Nicotine dependence, cigarettes, uncomplicated; Z71.6 Tobacco abuse counseling; Z91.19 Patient's noncompliance with other medical treatment and regimen; Z79.82 Long term (current) use of aspirin; Z79.899 Other long term (current) drug therapy; Z78.1 Physical restraint status; Z87.01 Personal history of pneumonia (recurrent); Z91.5 Personal history of self-harm; Z86.018 Personal history of other benign neoplasm; Z98.42 Cataract extraction status, left eye; Z98.41 Cataract extraction status, right eye; Z87.438 Personal history of other diseases of male genital organs; Z98.890 Other specified postprocedural states; Y63.6 Underdosing and nonadministration of necessary drug, medicament or biological substance; W07.XXXA Fall from chair, initial encounter; Z80.42 Family history of malignant neoplasm of prostate; Z82.49 Family history of ischemic heart disease and other diseases of the circulatory system; Z81.1 Family history of alcohol abuse and dependence; Z82.61 Family history of arthritis; Z83.49 Family history of other endocrine, nutritional and metabolic diseases; Y92.039 Unspecified place in apartment as the place of occurrence of the external cause
CPT/HCPCS: 36415; 70450; 70486; 71045; 72125; 80048; 80053; 80175; 80306; 80320; 81001; 82550; 83735; 85025; 87635; 93005; 96361; 96374; 99291

== ENCOUNTER → 2021-02-02 | Outpatient (CLI) | payer OTHER ==
[2021-02-03 01:47] LABS: ALT 21 U/L (10-49); AST 14 U/L (14-35)
[2021-02-03 07:14] LABS: Lamotrigine (Lamictal) 7.5 ug/mL (2.0-15.0)
== END | disposition home or self-care (01) ==
LOC: LABWHC1 14:30
PROVIDERS: ATTEND Psychiatry & Neurology Neurology
DX: G40.209 Localization-related (focal) (partial) symptomatic epilepsy and epileptic syndromes with complex partial seizures, not intractable, without status epilepticus (principal); Z86.73 Personal history of transient ischemic attack (TIA), and cerebral infarction without residual deficits
CPT/HCPCS: 36415; 80175; 80203; 84450; 84460

== ENCOUNTER 2021-02-13 13:16 | Inpatient (IN) | payer OTHER ==
[2021-02-13] MEDS ORDERED: SODIUM CHLORIDE 0.9% 1,000 ML IV ONE (13:21)
[2021-02-13] MEDS ORDERED: levETIRAcetam IV 2,000 MG in SODIUM CHLORIDE 0.9% 250 ML IVPB ONE (13:21)
[2021-02-13] MEDS ORDERED: MAGNESIUM SULFATE-D5W PMX 1 GM in DEXTROSE/WATER 1 100ML.BAG IVPB ONE (13:29)
[2021-02-13 13:48] LABS: Basophils # (A) 0.1 k/uL (0-0.2); Basophils % (A) 0 %; Eosinophils # (A) 0.2 k/uL (0-0.7); Eosinophils % (A) 1 %; HCT 38.6 % (39.0-53.0); HGB 13.4 gm/dL (13.0-17.5); Lymphocytes # (A) 0.8 k/uL (1.0-4.8); Lymphocytes % (A) 5 %; MCH 32.9 pg (25.0-35.0); MCHC 34.6 g/dL (31.0-37.0); MCV 95.1 fL (80.0-100.0); Monocytes # (A) 0.9 k/uL (0-1.0); Monocytes % (A) 5 %; Neutrophils # (A) 14.6 k/uL (1.3-7.7); Neutrophils % (A) 88 %; Platelet Count 299 k/uL (150-450); RBC 4.06 m/uL (4.30-5.90); RDW 12.7 % (11.5-15.5); WBC 16.6 k/uL (3.8-10.6)
[2021-02-13 13:57] LABS: ALT 18 U/L (4-49); AST 22 U/L (17-59); African American GFR (CKD) 30 (>60 ml/min/1.73 sqM); Albumin 4.4 g/dL (3.5-5.0); Alcohol <10 mg/dL; Alkaline Phosphatase 93 U/L (38-126); Anion Gap 13 mmol/L; Blood Urea Nitrogen 41 mg/dL (9-20); Calcium 9.5 mg/dL (8.4-10.2); Carbon Dioxide 22 mmol/L (22-30); Chloride 106 mmol/L (98-107); Creatine Kinase 67 U/L (55-170); Glucose 147 mg/dL (74-99); Non-African American GFR(CKD) 26 (>60 ml/min/1.73 sqM); Potassium 4.3 mmol/L (3.5-5.1); Sodium 141 mmol/L (137-145); Total Bilirubin 0.4 mg/dL (0.2-1.3)
[2021-02-13 14:04] LABS: INR 0.9 (<1.2); Prothrombin Time 10.2 sec (9.0-12.0)
[2021-02-13] MEDS ORDERED: SODIUM CHLORIDE 0.9% 1,000 ML IV STA (14:04)
--- NOTE | 2021-02-13 14:10 | ED ---
General Adult HPI - General Chief complaint: Seizure Stated complaint: seizures/head injury Time Seen by Provider: 02/13/21 13:20 Source: EMS, RN notes reviewed, old records reviewed Mode of arrival: EMS Limitations: altered mental status - History of Present Illness Initial comments: Patient is a 55-year-old male who frequents this emergency department presents after being found down at home. Patient was found face down. He does have a history of seizures with breakthrough seizures. He is on Lamictal at home. He had a unknown downtime at home. He was recently seen for similar complaints, and had a left-sided hematoma around the left eye as well as zygomatic arch fracture. He was admitted and eventually discharged home. Patient has a hist ory of prolonged post ictal phase. He presents currently confused, nonverbal. He is moving all 4 extremities. There are no tonic-clonic movements or seizure activity at this time. Pupils are 3 mm and equally reactive to light. He is unable to provide much history otherwise. He is not on blood thinners. - Related Data Home Medications Medication Instructions Recorded Confirmed Aspirin [Adult Low Dose Aspirin EC] 81 mg PO DAILY 10/24/18 02/13/21 Atorvastatin [Lipitor] 80 mg PO HS 10/24/18 02/13/21 Tamsulosin HCl [Flomax] 0.4 mg PO DAILY 12/24/19 02/13/21 Citalopram Hydrobromide [CeleXA] 40 mg PO DAILY 04/26/20 02/13/21 QUEtiapine FUMARATE [SEROquel] 300 mg PO HS 04/26/20 02/13/21 Carvedilol [Coreg] 25 mg PO BID 05/15/20 02/13/21 amLODIPine [Norvasc] 5 mg PO DAILY 05/15/20 02/13/21 hydroCHLOROthiazide [Hydrodiuril] 25 mg PO DAILY 05/15/20 02/13/21 Baclofen [Lioresal] 20 mg PO TID 01/25/21 02/13/21 Valsartan/Hydrochlorothiazide 1 tab PO DAILY 01/25/21 02/13/21 [Valsartan-Hctz 160-25 mg Tab] Zonisamide [Zonegran] 200 mg PO BID 01/25/21 02/13/21 Multivitamins, Thera [Multivitamin 1 tab PO DAILY 02/13/21 02/13/21 (formulary)] Previous Rx's Medication Instructions Recorded Magnesium Oxide [Mag-Ox] 400 mg PO DAILY #28 tab 11/05/18 Famotidine [Pepcid] 20 mg PO BID #60 tab 11/21/18 lamoTRIgine [LaMICtal] 200 mg PO BID tab 01/16/20 lamoTRIgine [LaMICtal] 25 mg PO BID #0 04/28/20 Thiamine [Vitamin B-1] 100 mg PO DAILY@1200 tab 01/28/21 Allergies Allergy/AdvReac Type Severity Reaction Status Date / Time No Known Allergies Allergy Verified 02/13/21 14:07 Review of Systems ROS Statement: Those systems with pertinent positive or pertinent negative responses have been documented in the HPI. Unable to obtain secondary to patient's current clinical status. ROS Other: All systems not noted in ROS Statement are negative. Past Medical History Past Medical History: CVA/TIA, GERD/Reflux, Hyperlipidemia, Hypertension, Pneumonia, Seizure Disorder Additional Past Medical History / Comment(s): L hemorrhagic stroke-R sided weakness and has had occasions of increased irritability/agitation/isolation, multiple mental health unit admissions with most recent on 10/24/18 [facility] with major depression/suicidal ideations without plan/acute anxiety, uncontrolled seizures, L pneumothorax with chest tube, migraines-has used other people's narcotics in the past per past medical record but pt denies, benign rectal polyp, etoh last drink more than 10 years ago. History of Any Multi-Drug Resistant Organisms: None Reported Past Surgical History: No Surgical Hx Reported Additional Past Surgical History / Comment(s): COLONOSCOPY POLYPS REMOVED-NEG, bilateral cataract removal, R testicular surgery as a little boy. Past Anesthesia/Blood Transfusion Reactions: No Reported Reaction Additional Past Anesthesia/Blood Transfusion Reaction / Comment(s): Pt has never recieved blood. Past Psychological History: Anxiety, Bipolar, Depression, Panic Disorder Smoking Status: Current every day smoker Past Alcohol Use History: None Reported Past Drug Use History: None Reported - Past Family History Father Family Medical History: Cancer, Hyperlipidemia, Hypertension, Prostate Disorder Additional Family Medical History / Comment(s): PROSTATE CA Mother Family Medical History: Osteoarthritis (OA) Additional Family Medical History / Comment(s): MOM IS 71 General Exam - General Exam Comments Initial Comments: General: Appears postictal HEAD: Patient has a large hematoma located over his forehead muscles in the left side. No obvious fractures or deformities. Gabriel sign negative, raccoon eyes negative. EYES: PERRLA, EOMI, conjunctiva normal, no discharge. ENT: Hearing grossly intact, normal oropharynx. No nasal septal hematoma. no hemotympanum RESPIRATORY: Clear breath sounds bilaterally. No wheezes, rales, or rhonchi. C/V: Regular rate and rhythm. S1 and S2 auscultated, no edema, peripheral pulses 2+ and intact throughout ABD: Abd is soft, nontender, nondistended EXT: Normal range of motion, no obvious deformity SKIN: No rashes or lesions observed on exposed skin. NEURO: Alert. Not oriented. Appears postictal. Moving all 4 extremities. Below mental status baseline. Limitations: altered mental status Course Vital Signs 02/13/21 02/13/21 02/13/21 13:24 14:29 15:35 Pulse Rate 72 80 68 Respiratory 16 20 18 Rate Blood Pressure 112/68 86/56 124/80 O2 Sat by Pulse 98 Oximetry 02/13/21 16:46 Pulse Rate 69 Respiratory 18 Rate Blood Pressure 109/76 O2 Sat by Pulse Oximetry Medical Decision Making - Medical Decision Making Based on the patient's presentation and physical exam, he currently appears postictal was found face down at home. Only obvious injury is a hematoma loca thomas over his forehead which is similar on his last presentation. He is not yet back to baseline. Therefore we will obtain CT imaging of the head, face, neck in addition to laboratory studies as well as an EKG and chest x-ray. He'll be administered 2 g of IV Keppra. He'll be given a fluid bolus. We also obtain a CPK level. Patient will be administered magnesium due to the slightly prolonged QT. We will observe the patient in the emergency department on continuous cardiac monitoring and assessment improvement, however he will likely require admission to hospital due to his history of prolonged postictal phases. EKG shows no signs of acute ischemia.Patient's CT imaging revealed no acute intracranial process but there is a nasal bone fracture as well as a forehead hematoma. Chest x-ray reveals slightly increased interstitial markings compared to the old exam. There is no heart failure pulmonary consolidation. Laboratory studies were remarkable for a leukocytosis of 16.6 which is likely reactive with no obvious source of infection. Patient has an AK I with an acutely elevated creatinine of 2.61 and be on a 41. Like to lites are otherwise normal. Lactate is negative. Tox screen is negative. Troponin is negative. Covid swab is negative. Attempts are made to straight cath the patient, however he does wake up and is more agitated at this time. Less stimuli appears to be needed to awaken the patient. This does appear similar to prior admission, with a prolonged post ictal phase following seizures that were suspected at home. He does not appear to be having acute seizures, as he is having some purposeful movements towards stimuli, and is actively snoring and sleeping. I will place the patient on empiric Rest therapy until he awakens and can continue his Lamictal. Neurology was consulted to evaluate in the morning. I initially did speak with trauma surgery, Dr. Graham who turned the patient down as admission to their service. They requested to be a consult. Patient's only to medic injury was the hematoma as well as nasal bone fracture. He requested that I consult ENT which was done. Patient will receive a one-time dose of Unasyn empirically for the nasal bone fracture. ENT was consulted to evaluate the patient tomorrow. I initially spoke with the admitting team, Dr. Santiago accepted the patient, however patient's mother presented and we found that the patient has a PCP, Dr. Marlow who admits to [facility]. Therefore I contacted [facility], Dr. Alvarenga who accepted the patient. Patient will be admitted in serious condition to telemetry bed for his prolonged postictal state and altered mental status likely secondary to breakthrough seizures as he appears to have poor outpatient follow-up. - Lab Data Result diagrams: 02/13/21 13:37 02/13/21 13:37 Lab Results 02/13/21 02/13/21 02/13/21 Range/Units 13:37 13:37 13:37 WBC 16.6 H (3.8-10.6) k/uL RBC 4.06 L (4.30-5.90) m/uL Hgb 13.4 (13.0-17.5) gm/dL Hct 38.6 L (39.0-53.0) % MCV 95.1 (80.0-100.0) fL MCH 32.9 (25.0-35.0) pg MCHC 34.6 (31.0-37.0) g/dL RDW 12.7 (11.5-15.5) % Plt Count 299 (150-450) k/uL MPV 8.0 Neutrophils % 88 % Lymphocytes % 5 % Monocytes % 5 % Eosinophils % 1 % Basophils % 0 % Neutrophils # 14.6 H (1.3-7.7) k/uL Lymphocytes # 0.8 L (1.0-4.8) k/uL Monocytes # 0.9 (0-1.0) k/uL Eosinophils # 0.2 (0-0.7) k/uL Basophils # 0.1 (0-0.2) k/uL PT 10.2 (9.0-12.0) sec INR 0.9 (<1.2) APTT 21.5 L (22.0-30.0) sec Sodium 141 (137-145) mmol/L Potassium 4.3 (3.5-5.1) mmol/L Chloride 106 (98-107) mmol/L Carbon Dioxide 22 (22-30) mmol/L Anion Gap 13 mmol/L BUN 41 H (9-20) mg/dL Creatinine 2.61 H (0.66-1.25) mg/dL Est GFR (CKD-EPI)AfAm 30 (>60 ml/min/1.73 sqM) Est GFR (CKD-EPI)NonAf 26 (>60 ml/min/1.73 sqM) Glucose 147 H (74-99) mg/dL Plasma Lactic Acid Shahbaz (0.7-2.0) mmol/L Calcium 9.5 (8.4-10.2) mg/dL Total Bilirubin 0.4 (0.2-1.3) mg/dL AST 22 (17-59) U/L ALT 18 (4-49) U/L Alkaline Phosphatase 93 (38-126) U/L Ammonia (<30) umol/L Creatine Kinase 67 (55-170) U/L Troponin I (0.000-0.034) ng/mL Total Protein 7.0 (6.3-8.2) g/dL Albumin 4.4 (3.5-5.0) g/dL Salicylates mg/dL Acetaminophen ug/mL Serum Alcohol <10 mg/dL 02/13/21 02/13/2102/13/21 Range/Units 13:37 13:37 13:37 WBC (3.8-10.6) k/uL RBC (4.30-5.90) m/uL Hgb (13.0-17.5) gm/dL Hct (39.0-53.0) % MCV (80.0-100.0) fL MCH (25.0-35.0) pg MCHC (31.0-37.0) g/dL RDW (11.5-15.5) % Plt Count (150-450) k/uL MPV Neutrophils % % Lymphocytes % % Monocytes % % Eosinophils % % Basophils % % Neutrophils # (1.3-7.7) k/uL Lymphocytes # (1.0-4.8) k/uL Monocytes # (0-1.0) k/uL Eosinophils # (0-0.7) k/uL Basophils # (0-0.2) k/uL PT (9.0-12.0) sec INR (<1.2) APTT (22.0-30.0) sec Sodium (137-145) mmol/L Potassium (3.5-5.1) mmol/L Chloride (98-107) mmol/L Carbon Dioxide (22-30) mmol/L Anion Gap mmol/L BUN (9-20) mg/dL Creatinine (0.66-1.25) mg/dL Est GFR (CKD-EPI)AfAm (>60 ml/min/1.73 sqM) Est GFR (CKD-EPI)NonAf (>60 ml/min/1.73 sqM) Glucose (74-99) mg/dL Plasma Lactic Acid Shahbaz (0.7-2.0) mmol/L Calcium (8.4-10.2) mg/dL Total Bilirubin (0.2-1.3) mg/dL AST (17-59) U/L ALT (4-49) U/L Alkaline Phosphatase (38-126) U/L Ammonia 13 (<30) umol/L Creatine Kinase (55-170) U/L Troponin I <0.012 (0.000-0.034) ng/mL Total Protein (6.3-8.2) g/dL Albumin (3.5-5.0) g/dL Salicylates <1.0 mg/dL Acetaminophen <10.0 ug/mL Serum Alcohol mg/dL 02/13/21 Range/Units 14:39 WBC (3.8-10.6) k/uL RBC (4.30-5.90) m/uL Hgb (13.0-17.5) gm/dL Hct (39.0-53.0) % MCV (80.0-100.0) fL MCH (25.0-35.0) pg MCHC (31.0-37.0) g/dL RDW (11.5-15.5) % Plt Count (150-450) k/uL MPV Neutrophils % % Lymphocytes % % Monocytes % % Eosinophils % % Basophils % % Neutrophils # (1.3-7.7) k/uL Lymphocytes # (1.0-4.8) k/uL Monocytes # (0-1.0) k/uL Eosinophils # (0-0.7) k/uL Basophils # (0-0.2) k/uL PT (9.0-12.0) sec INR (<1.2) APTT (22.0-30.0) sec Sodium (137-145) mmol/L Potassium (3.5-5.1) mmol/L Chloride (98-107) mmol/L Carbon Dioxide (22-30) mmol/L Anion Gap mmol/L BUN (9-20) mg/dL Creatinine (0.66-1.25) mg/dL Est GFR (CKD-EPI)AfAm (>60 ml/min/1.73 sqM) Est GFR (CKD-EPI)NonAf (>60 ml/min/1.73 sqM) Glucose (74-99) mg/dL Plasma Lactic Acid Shahbaz 1.1 (0.7-2.0) mmol/L Calcium (8.4-10.2) mg/dL Total Bilirubin (0.2-1.3) mg/dL AST (17-59) U/L ALT (4-49) U/L Alkaline Phosphatase (38-126) U/L Ammonia (<30) umol/L Creatine Kinase (55-170) U/L Troponin I (0.000-0.034) ng/mL Total Protein (6.3-8.2) g/dL Albumin (3.5-5.0) g/dL Salicylates mg/dL Acetaminophen ug/mL Serum Alcohol mg/dL - EKG Data -: EKG Interpreted by Me EKG Comments: 12-lead Electrocardiogram Interpretation Note EKG was reviewed and interpreted by myself. 12-lead ECG performed at 1324 is interpreted by me as revealing normal sinus rhythm at a rate of 72 beats per minute. [place] is normal. PA interval is 192 ms, QRS duration is 100 ms, QTc is 505 ms.. There were no ST or T wave abnormalities to suggest myocardial ischemia or injury. R wave progression across the precordium was satisfactory. By my interpretation this EKG is non-diagnostic for acute ischemia. Disposition Clinical Impression: Breakthrough seizure, Post-ictal state, Fall, MARY (acute kidney injury), Nasal bone fracture, Traumatic hematoma of forehead Disposition: ADMITTED IP TO THIS HOSP Condition: Serious
[2021-02-13 14:11] LABS: Partial Thromboplastin Time 21.5 sec (22.0-30.0)
--- NOTE | 2021-02-13 14:42 | CT ---
EXAMINATION TYPE: CT facial bones wo con DATE OF EXAM: 02/13/2021 COMPARISON: HISTORY: History of seizures, Found in home unconscious and bloody CT DLP: 1266.6 mGycm Automated exposure control for dose reduction was used. Images obtained from the bottom of the mandible to the top of the frontal sinuses without contrast. The mandibular ring is intact. Temporomandibular joints are intact. Zygomatic arches appear normal. T he maxilla is intact. There is fracture of the nasal bone on the right side. There is some right late ral mild displacement. There is increased density in the anterior nasopharynx and anterior ethmoid ai r cells on the left side consistent with hemorrhage and debris. There is soft tissue swelling around the frontal bone and left orbit. There is scalp hematoma over the left frontal bone that measures 8 m m in thickness. There is no evidence of orbital blowout fracture. There is no retro-orbital mass. Orbital margins are intact. There is normal aeration of the mastoid sinuses. Temporal bones are intact. IMPRESSION: Left side frontal scalp hematoma and periorbital soft tissue swelling. Nasal bone fracture.
--- NOTE | 2021-02-13 14:48 | CT ---
EXAMINATION TYPE: CT brain cspine wo con DATE OF EXAM: 02/13/2021 COMPARISON: 01/25/2021 HISTORY: AMS, History of seizures, Found in home unconscious and bloody CT DLP: 1266.6 mGycm Automated exposure control for dose reduction was used. Images obtained of the brain and cervical spine without contrast. Ventricles have normal size. There is no mass effect nor midline shift. There is no sign of intracran ial hemorrhage. Calvarium is intact. Skull base appears intact. There is normal aeration of the masto id sinuses. The cervical vertebra have normal alignment. There is mild degenerative disc space narrowing at C6-7 with spurring. Facet joints are intact. There is left side chronic mucosal thickening in the left dylan e ethmoid sinus and nasopharynx. This is slightly increased compared to old exam. I see no focal bone destruction. IMPRESSION: No acute intracranial abnormality. Brain not changed compared to old exam. There is left side ethmoid sinusitis slightly increased compared to old exam. Sinus disease not significantly different than ol dasha CT scan of 11/20/2018 and consistent with benign etiology. Mild spondylotic changes in the lower cervical spine. No fracture. No change.
[2021-02-13] MEDS ORDERED: AMPICILLIN-SULBACTAM 3 GM in SODIUM CHLORIDE 0.9% 100 ML IVPB STA (15:06)
[2021-02-13] MEDS ORDERED: NALOXONE 0.4 MG/ML 1 ML VIAL IV PRN (15:21)
--- NOTE | 2021-02-13 15:31 | XR ---
EXAMINATION TYPE: XR chest 1V portable DATE OF EXAM: 02/13/2021 COMPARISON: 01/25/2021 HISTORY: Seizure TECHNIQUE: Single view FINDINGS: There is some mild coarsening of the interstitial markings. Heart size is normal. There is no pleural effusion. There are no hilar masses. IMPRESSION: Slight increased interstitial markings compared to old exam. No heart failure or pulmonar y consolidation.
[2021-02-13] MEDS ORDERED: LORazepam 2 MG/ML INJ IV STA (17:14)
[2021-02-13 17:27] LABS: Acetaminophen <10.0 ug/mL; Salicylate <1.0 mg/dL
[2021-02-13] MEDS: carvediloL 12.5 MG TAB PO SCH (17:31)
[2021-02-13] MEDS: ATORVASTATIN 80 MG TAB PO SCH (20:39)
[2021-02-13] MEDS: FAMOTIDINE 20 MG TAB PO SCH (20:39)
[2021-02-13] MEDS: SODIUM CHLORIDE 0.9% 1,000 ML IV SCH (20:56)
[2021-02-13] MEDS: lamoTRIgine 25 MG TAB PO SCH (22:18)
[2021-02-13] MEDS: lamoTRIgine 100 MG TAB PO SCH (22:18)
[2021-02-13] MEDS: ZONISAMIDE 100 MG CAP PO SCH (22:18)
[2021-02-13] MEDS: levETIRAcetam IV 1,000 MG in SALINE 1 100ML.BAG IVPB SCH (22:30)
[2021-02-13] MEDS: LORazepam 2 MG/ML INJ IV PRN (23:59)
[2021-02-14] MEDS: LORazepam 2 MG/ML INJ IV PRN ×3 (04:42→22:22)
[2021-02-14] MEDS: SODIUM CHLORIDE 0.9% 1,000 ML IV SCH ×2 (05:43→16:38)
[2021-02-14 06:48] LABS: Basophils # (A) 0.1 k/uL (0-0.2); Basophils % (A) 0 %; Eosinophils % (A) 0 %; HCT 39.3 % (39.0-53.0); HGB 13.2 gm/dL (13.0-17.5); Lymphocytes # (A) 0.6 k/uL (1.0-4.8); Lymphocytes % (A) 4 %; MCH 32.2 pg (25.0-35.0); MCHC 33.6 g/dL (31.0-37.0); MCV 96.1 fL (80.0-100.0); Mean Platelet Volume 8.1; Monocytes # (A) 0.8 k/uL (0-1.0); Monocytes % (A) 5 %; Neutrophils # (A) 14.2 k/uL (1.3-7.7); Neutrophils % (A) 90 %; Platelet Count 292 k/uL (150-450); RBC 4.09 m/uL (4.30-5.90); RDW 12.6 % (11.5-15.5); WBC 15.9 k/uL (3.8-10.6)
[2021-02-14 07:19] LABS: Calcium 9.2 mg/dL (8.4-10.2); Potassium 3.8 mmol/L (3.5-5.1)
[2021-02-14] MEDS ORDERED: NON FORMULARY DRUG (Valsartan/Hydrochlorothiazide [Valsartan-Hctz 160-25 Mg Tab] 1 EACH Ta PO SCH (09:00)
--- NOTE | 2021-02-14 11:03 | P.CNNES ---
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 Per EMS flow sheet, when they arrived, patient was sitting in the chair in kitchen. Patient was responsive to pain with no purposeful movement. Patient was noted to have blood on his face. Patient was found facedown in the kitchen. Patient remained unresponsive while being transported to the hospital. Patient's vital signs the scene blood pressure 130/49, pulse rate 72, respiration 18, saturation 98%. Patient's blood test shows WBC 16.6, hemoglobin 13.4, platelets 299. PT/PTT normal, electrolytes normal, BUN 41, creatinine 2.61, which has now improved to 33/1.45 respectively. Hepatic panel normal, ammonia normal, CK normal. Troponin negative. Blood alcohol level negative. Batres virus PCR negative. Patient's last Vimpat level on 04/12/2020 was 5.8 (normally levels up to 15.0 g per mL). Computed tomography scan of the head shows no acute intracranial abnormality. There is left-sided ethmoid sinusitis slightly increased compared to old exam. Mild spondylotic changes in the lower cervical spine. No fracture. CT of the facial bones revealed nasal bone fracture. Left-sided frontal scalp hematoma and prior to orbital soft tissue swelling. Patient at present not able to provide any history. He appears obviously postictal/encephalopathic, restless, does not follow, wants. Please refer to examination below. Patient not able to provide any history. I spoke to patient's significant other Miss Soto, who states that she was going to get her laundry done, but went to his home to check on him and found him laying on the floor face down with blood all over his face. He had a seizure 2 weeks ago for which he was not hospitalized for 3-4 days. He broke his eye socket with that seizure. He keeps on slamming his face on the floor with each seizure. She states that he receive his medication as a bubble pack by the pharmacist. His girlfriend believes that he does take medication regularly although does not take according to the days of the month listed on the bubble pack. He just takes a medication randomly from any days from the bubble pack. I called the pharmacy and spoke to the pharmacist, and appears that he is picking up his medications regularly at the pharmacy. The last time he refilled was on 01/24/2021 and the one prior was on 12/23/2020. Patient does not drink any alcohol. He still smokes 2 packs per day. Patient's home medications include Lipitor 80 mg, aspirin 81 mg, magnesium 400 mg, Pepcid, Flomax, Lamictal 200 mg twice a day, Seroquel 300 mg at bedtime, Celexa 40 mg, Lamictal 25 mg twice a day, HCTZ, amlodipine 5 mg, carvedilol, zonisamide 200 mg twice a day, valsartan/HCTZ, baclofen 20 mg 3 times a day, thiamine and multivitamin. Patient had stroke about 4 years ago, which affected his right side. He has developed seizure disorder for which he follows up with Dr. Ramirez. Patient was taking Vimpat and Lamictal. Patient gets seizures once every 2 weeks. Review of Systems ROS unobtainable: due to mental status Past Medical History Past Medical History: CVA/TIA, GERD/Reflux, Hyperlipidemia, Hypertension, Pneumonia, Seizure Disorder Additional Past Medical History / Comment(s): L hemorrhagic stroke-R sided weakness and has had occasions of increased irritability/agitation/isolation, multiple mental health unit admissions with most recent on 10/24/18 [facility] with major depression/suicidal ideations without plan/acute anxiety, uncontrolled seizures, L pneumothorax with chest tube, migraines-has used other people's n arcotics in the past per past medical record but pt denies, benign rectal polyp, etoh last drink more than 10 years ago. History of Any Multi-Drug Resistant Organisms: None Reported Past Surgical History: No Surgical Hx Reported Additional Past Surgical History / Comment(s): COLONOSCOPY POLYPS REMOVED-NEG, bilateral cataract removal, R testicular surgery as a little boy. Past Anesthesia/Blood Transfusion Reactions: No Reported Reaction Additional Past Anesthesia/Blood Transfusion Reaction / Comment(s): Pt has never recieved blood. Past Psychological History: Anxiety, Bipolar, Depression, Panic Disorder Smoking Status: Current every day smoker Past Alcohol Use History: None Reported Past Drug Use History: None Reported - Past Family History Father Family Medical History: Cancer, Hyperlipidemia, Hypertension, Prostate Disorder Additional Family Medical History / Comment(s): PROSTATE CA Mother Family Medical History: Osteoarthritis (OA) Additional Family Medical History / Comment(s): MOM IS 71 Medications and Allergies Home Medications Medication Instructions Recorded Confirmed Type Aspirin [Adult Low Dose Aspirin EC] 81 mg PO DAILY 10/24/18 02/13/21 History Atorvastatin [Lipitor] 80 mg PO HS 10/24/18 02/13/21 History Magnesium Oxide [Mag-Ox] 400 mg PO DAILY #28 tab 11/05/18 02/13/21 Rx Famotidine [Pepcid] 20 mg PO BID #60 tab 11/21/18 02/13/21 Rx Tamsulosin HCl [Flomax] 0.4 mg PO DAILY 12/24/19 02/13/21 History lamoTRIgine [LaMICtal] 200 mg PO BID tab 01/16/20 02/13/21 Rx Citalopram Hydrobromide [CeleXA] 40 mg PO DAILY 04/26/20 02/13/21 History QUEtiapine FUMARATE [SEROquel] 300 mg PO HS 04/26/20 02/13/21 History lamoTRIgine [LaMICtal] 25 mg PO BID #0 04/28/20 02/13/21 Rx Carvedilol [Coreg] 25 mg PO BID 05/15/20 02/13/21 History amLODIPine [Norvasc] 5 mg PO DAILY 05/15/20 02/13/21 History hydroCHLOROthiazide [Hydrodiuril] 25 mg PO DAILY 05/15/20 02/13/21 History Baclofen [Lioresal] 20 mg PO TID 01/25/21 02/13/21 History Valsartan/Hydrochlorothiazide 1 tab PO DAILY 01/25/21 02/13/21 History [Valsartan-Hctz 160-25 mg Tab] Zonisamide [Zonegran] 200 mg PO BID 01/25/21 02/13/21 History Thiamine [Vitamin B-1] 100 mg PO DAILY@1200 tab 01/28/21 02/13/21 Rx Multivitamins, Thera [Multivitamin 1 tab PO DAILY 02/13/21 02/13/21 History (formulary)] Allergies Allergy/AdvReac Type Severity Reaction Status Date / Time No Known Allergies Allergy Verified 02/13/21 14:07 Physical Examination - Vital Signs Vital Signs: Vital Signs Temp Pulse Pulse Resp BP BP Pulse Ox 02/14/21 08:07 98.9 F 87 20 164/94 98 02/14/21 03:32 85 20 172/98 94 L 02/14/21 00:00 97.6 F 79 20 140/91 95 02/13/21 20:00 97.5 F L 76 20 129/83 95 02/13/21 16:46 69 18 109/76 02/13/21 15:35 68 18 124/80 98 02/13/21 14:29 80 20 86/56 02/13/21 13:24 72 16 112/68 Intake and Output 02/13/21 02/14/21 02/14/21 22:59 06:59 14:59 Intake Total 0 900 Balance 0 900 Intake: Intake, IV Titration 900 Amount Sodium Chloride 0.9% 1, 900 000 ml @ 75 mls/hr IV . [id number] [facility] Rx#:[id number] Oral 0 Other: Voiding Method Diaper Diaper Diaper # Voids 2 1 # Bowel Movements 2 Patient is a middle aged male, who is very confused, encephalopathic. Patient is awake, but very restless, laying diagonally in the bed, trying to get out of the bed sometimes. Inform the nurse. Patient does not follow commands. He does open his eyes, has dried up blood on his face. He has dried up blood noticeable in the inside of the lips and the teeth. Patient did not protrude his tongue to look for any oral trauma. Patient not able to tell me his name, or any other questions. He does moan sometimes. Speech and language functions cannot be assessed. Attention, concentration and fund of knowledge is severely limited. On cranial examination, pupils are round and reacting to light, patient's left eyelids are swollen shut, but does open his eyelids, and pupils are then visible. Visual callejas cannot be tested. extraocular muscles are intact, as he does look to both sides. No abnormal obvious nystagmus. Face is symmetric, patient did not protrude his tongue, and lower cranial nerves couldn't be assessed. Patient did not shrug his shoulders. On muscle strength testing, patient has mild right-sided weakness, which is baseline. He did not cooperate with the examination at all. Patient's right arm drops down faster as compared to the left. He does move his left arm and both legs spontaneously. Deep tendon reflexes adiminished and plantars is possible up on the right, down on left. Sensory to tcould not be assessed. Patient does moan to painful stimuli bilaterally. Cerebellar function cannot be tested Tone is increased in the right upper limb as compared to the left and bulk of muscles normal. Gait not able to be checked. On general examination, there is no carotid bruit or murmur, S1-S2 audible. Abdomen is soft nontender. Chest is clear. Peripheral pulses are present. No edema. 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 Patient came with breakthrough seizure with prolonged postictal state. * Breakthrough seizure, unclear etiology. Apparently based upon report from patient's girlfriend and patient's pharmacist, he is taking medication regularly. * Altered mental status, encephalopathy, probably due to postictal state. * Nasal bone fracture, due to the fall from seizure. * History of left parietal hemorrhagic stroke in 2015 with residual mild right hemiparesis * History of tobacco use, still smokes 2 packs per day. * Hypertension * Depression. Plan: * Check Lamictal level, zonisamide level. * EEG * Repeat CT head, rule out slow-growing subdural hematoma. * Resume his medications including Lamictal 225 mg twice a day and zonisamide 200 mg twice a day. * Patient may benefit from prolonged EEG monitoring at epilepsy monitoring unit for further evaluation of medically intractable epilepsy. * We will follow patient clinically.
[2021-02-14] MEDS: carvediloL 12.5 MG TAB PO SCH ×2 (11:30→16:34)
[2021-02-14] MEDS: ASPIRIN 81 MG PO SCH (11:30)
[2021-02-14] MEDS: lamoTRIgine 100 MG TAB PO SCH ×3 (11:31→23:20)
[2021-02-14] MEDS: TAMSULOSIN 0.4 MG CAP.ER.24H PO SCH (11:31)
[2021-02-14] MEDS: lamoTRIgine 25 MG TAB PO SCH ×3 (11:31→23:20)
[2021-02-14] MEDS: ZONISAMIDE 100 MG CAP PO SCH ×3 (11:32→23:19)
[2021-02-14] MEDS: levETIRAcetam IV 1,000 MG in SALINE 1 100ML.BAG IVPB SCH ×2 (11:40→20:42)
--- NOTE | 2021-02-14 12:12 | P.GSCN ---
History of Present Illness Consult date: 02/14/21 History of present illness: Is a 55-year-old male presented to the emergency department with a known history of seizure disorder he was postictal when he arrived at the emergency department found down. He did have some ecchymosis across to his orbits. On CT he did have a nasal bone fracture and a scalp hematoma. No other acute traumatic injuries noted. Trauma was consulted Past Medical History Past Medical History: CVA/TIA, GERD/Reflux, Hyperlipidemia, Hypertension, Pneumonia, Seizure Disorder Additional Past Medical History / Comment(s): L hemorrhagic stroke-R sided weakn ess and has had occasions of increased irritability/agitation/isolation, multiple mental health unit admissions with most recent on 10/24/18 [facility] with major depression/suicidal ideations without plan/acute anxiety, uncontrolled seizures, L pneumothorax with chest tube, migraines-has used other people's narcotics in the past per past medical record but pt denies, benign rectal polyp, etoh last drink more than 10 years ago. History of Any Multi-Drug Resistant Organisms: None Reported Past Surgical History: No Surgical Hx Reported Additional Past Surgical History / Comment(s): COLONOSCOPY POLYPS REMOVED-NEG, bilateral cataract removal, R testicular surgery as a little boy. Past Anesthesia/Blood Transfusion Reactions: No Reported Reaction Additional Past Anesthesia/Blood Transfusion Reaction / Comm: Pt has never recieved blood. Past Psychological History: Anxiety, Bipolar, Depression, Panic Disorder Smoking Status: Current every day smoker Past Alcohol Use History: None Reported Past Drug Use History: None Reported - Past Family History Father Family Medical History: Cancer, Hyperlipidemia, Hypertension, Prostate Disorder Additional Family Medical History / Comment(s): PROSTATE CA Mother Family Medical History: Osteoarthritis (OA) Additional Family Medical History / Comment(s): MOM IS 71 Medications and Allergies Home Medications Medication Instructions Recorded Confirmed Type Aspirin [Adult Low Dose Aspirin EC] 81 mg PO DAILY 10/24/18 02/13/21 History Atorvastatin [Lipitor] 80 mg PO HS 10/24/18 02/13/21 History Magnesium Oxide [Mag-Ox] 400 mg PO DAILY #28 tab 11/05/18 02/13/21 Rx Famotidine [Pepcid] 20 mg PO BID #60 tab 11/21/18 02/13/21 Rx Tamsulosin HCl [Flomax] 0.4 mg PO DAILY 12/24/19 02/13/21 History lamoTRIgine [LaMICtal] 200 mg PO BID tab 01/16/20 02/13/21 Rx Citalopram Hydrobromide [CeleXA] 40 mg PO DAILY 04/26/20 02/13/21 History QUEtiapine FUMARATE [SEROquel] 300 mg PO HS 04/26/20 02/13/21 History lamoTRIgine [LaMICtal] 25 mg PO BID #0 04/28/20 02/13/21 Rx Carvedilol [Coreg] 25 mg PO BID 05/15/20 02/13/21 History amLODIPine [Norvasc] 5 mg PO DAILY 05/15/20 02/13/21 History hydroCHLOROthiazide [Hydrodiuril] 25 mg PO DAILY 05/15/20 02/13/21 History Baclofen [Lioresal] 20 mg PO TID 01/25/21 02/13/21 History Valsartan/Hydrochlorothiazide 1 tab PO DAILY 01/25/21 02/13/21 History [Valsartan-Hctz 160-25 mg Tab] Zonisamide [Zonegran] 200 mg PO BID 01/25/21 02/13/21 History Thiamine [Vitamin B-1] 100 mg PO DAILY@1200 tab 01/28/21 02/13/21 Rx Multivitamins, Thera [Multivitamin 1 tab PO DAILY 02/13/21 02/13/21 History (formulary)] Allergies Allergy/AdvReac Type Severity Reaction Status Date / Time No Known Allergies Allergy Verified 02/13/21 14:07 Surgical - Exam Osteopathic Statement: *. No significant issues noted on an osteopathic structural exam other than those noted in the History and Physical/Consult. Vital Signs Pulse Resp BP 72 16 112/68 02/13/21 13:24 02/13/21 13:24 02/13/21 13:24 - General well developed, no distress - Eyes PERRL - ENT Ecchymosis across bilateral orbits - Neck trachea midline - Respiratory normal expansion, normal respiratory effort - Cardiovascular Rhythm: regular - Abdomen Abdomen: soft, non tender - Neurologic disoriented Results - Labs 02/14/21 05:54 02/14/21 05:54 Abnormal Lab Results - Last 24 Hours (Table) 02/13/21 02/13/21 02/13/21 Range/Units 13:37 13:37 13:37 WBC 16.6 H (3.8-10.6) k/uL RBC 4.06 L (4.30-5.90) m/uL Hct 38.6 L (39.0-53.0) % Neutrophils # 14.6 H (1.3-7.7) k/uL Lymphocytes # 0.8 L (1.0-4.8) k/uL APTT 21.5 L (22.0-30.0) sec Chloride (98-107) mmol/L Carbon Dioxide (22-30) mmol/L BUN 41 H (9-20) mg/dL Creatinine 2.61 H (0.66-1.25) mg/dL Glucose 147 H (74-99) mg/dL 02/14/21 02/14/21 Range/Units 05:54 05:54 WBC 15.9 H (3.8-10.6) k/uL RBC 4.09 L (4.30-5.90) m/uL Hct (39.0-53.0) % Neutrophils # 14.2 H (1.3-7.7) k/uL Lymphocytes # 0.6 L (1.0-4.8) k/uL APTT (22.0-30.0) sec Chloride 113 H (98-107) mmol/L Carbon Dioxide 18 L (22-30) mmol/L BUN 33 H (9-20) mg/dL Creatinine 1.45 H (0.66-1.25) mg/dL Glucose 132 H (74-99) mg/dL Diabetes panel 02/13/21 02/14/21 Range/Units 13:37 05:54 Sodium 141 142 (137-145) mmol/L Potassium 4.3 3.8 (3.5-5.1) mmol/L Chloride 106 113 H (98-107) mmol/L Carbon Dioxide 22 18 L (22-30) mmol/L BUN 41 H 33 H (9-20) mg/dL Creatinine 2.61 H 1.45 H (0.66-1.25) mg/dL Glucose 147 H 132 H (74-99) mg/dL Calcium 9.5 9.2 (8.4-10.2) mg/dL AST 22 (17-59) U/L ALT 18 (4-49) U/L Alkaline Phosphatase 93 (38-126) U/L Total Protein 7.0 (6.3-8.2) g/dL Albumin 4.4 (3.5-5.0) g/dL Calcium panel 02/13/21 02/14/21 Range/Units 13:37 05:54 Calcium 9.5 9.2 (8.4-10.2) mg/dL Albumin 4.4 (3.5-5.0) g/dL Pituitary panel 02/13/21 02/14/21 Range/Units 13:37 05:54 Sodium 141 142 (137-145) mmol/L Potassium 4.3 3.8 (3.5-5.1) mmol/L Chloride 106 113 H (98-107) mmol/L Carbon Dioxide 22 18 L (22-30) mmol/L BUN 41 H 33 H (9-20) mg/dL Creatinine 2.61 H 1.45 H (0.66-1.25) mg/dL Glucose 147 H 132 H (74-99) mg/dL Calcium 9.5 9.2 (8.4-10.2) mg/dL Adrenal panel 02/13/21 02/14/21 Range/Units 13:37 05:54 Sodium 141 142 (137-145) mmol/L Potassium 4.3 3.8 (3.5-5.1) mmol/L Chloride 106 113 H (98-107) mmol/L Carbon Dioxide 22 18 L (22-30) mmol/L BUN 41 H 33 H (9-20) mg/dL Creatinine 2.61 H 1.45 H (0.66-1.25) mg/dL Glucose 147 H 132 H (74-99) mg/dL Calcium 9.5 9.2 (8.4-10.2) mg/dL Total Bilirubin 0.4 (0.2-1.3) mg/dL AST 22 (17-59) U/L ALT 18 (4-49) U/L Alkaline Phosphatase 93 (38-126) U/L Total Protein 7.0 (6.3-8.2) g/dL Albumin 4.4 (3.5-5.0) g/dL Assessment and Plan Assessment: Status post seizure. Nasal bone fracture, scalp hematoma Plan: There is no acute injury requiring trauma surgery intervention. Neurology and medicine recs regarding seizure disorder. ENT is consulted follow-up recommendations for nasal bone fracture. Trauma surgery will sign off please contact directly with any further concerns.
[2021-02-14] MEDS: hydroCHLOROthiazide 25 MG TAB PO SCH ×2 (12:16)
[2021-02-14] MEDS: VALSARTAN 160 MG TAB PO SCH (12:16)
[2021-02-14] MEDS: CITALOPRAM HYDROBROMIDE 20 MG TAB PO SCH (12:16)
--- NOTE | 2021-02-14 12:28 | P.HPIM ---
History of Present Illness This is a pleasant 55 years old male with past medical history of CVA/TIA, GERD/Reflux, Hyperlipidemia, Hypertension, Seizure Disorder, L hemorrhagic stroke-R sided weakness and has had occasions of increased irritability/agitation/isolation, multiple mental health unit admissions with most recent on [facility] with major depression/suicidal ideations without plan/acute anxiety, uncontrolled seizures, L pneumothorax with chest tube, migraines Patient is poor historian, he looks confused and agitated, hiccups moving his extremity, he has no attention span, he does not follow commands. Patient cannot provide information and they were obtained from the mother at bedside for most of her records. Mother she haven't seen him recently however she talked him Prince. And then she got a call yesterday from his friends that they found him on the floor patient has ecchymosis around his both eyes, some swelling around his nose. He has tenderness in the left lower quadrant, patient does not allow me to touch this area Vitas looks stable, slightly tachypneic, blood pressure is slightly elevated 16 . He has mild leukocytosis 15.9 K. INR is 0.9. Elevated creatinine 2.6, and down to baseline at 1.4, baseline is 1.2-1.5 Her enzymes not elevated. Troponin is negative less than 0.01 Salicylate less than 1, serum alcohol less than 10, Tylenol level less than 10. Coronavirus not detected. Chest x-ray: Slightly increased interstitial markings compared to old exam. No heart failure or pulmonary consolidation EKG showed normal sinus rhythm at 72 CT of the head showed no acute intracranial abnormality. Face CT: Left side frontal scalp hematoma and periorbital soft tissue swelling. Nasal bone fracture in Emergency room he was started on Unasyn and Keppra and IV fluids, currently he is on normal saline 75 mL/h he also received 2 L of NS Review of Systems n/a he cannot provide Past Medical History Past Medical History: CVA/TIA, GERD/Reflux, Hyperlipidemia, Hypertension, Pneumonia, Seizure Disorder Additional Past Medical History / Comment(s): L hemorrhagic stroke-R sided weakness and has had occasions of increased irritability/agitation/isolation, multiple mental health unit admissions with most recent on 10/24/18 [facility] with major depression/suicidal ideations without plan/acute anxiety, uncontrolled seizures, L pneumothorax with chest tube, migraines-has used other people's narcotics in the past per past medical record but pt denies, benign rectal polyp, etoh last drink more than 10 years ago. History of Any Multi-Drug Resistant Organisms: None Reported Past Surgical History: No Surgical Hx Reported Additional Past Surgical History / Comment(s): COLONOSCOPY POLYPS REMOVED-NEG, bilateral cataract removal, R testicular surgery as a little boy. Past Anesthesia/Blood Transfusion Reactions: No Reported Reaction Additional Past Anesthesia/Blood Transfusion Reaction / Comment(s): Pt has never recieved blood. Past Psychological History: Anxiety, Bipolar, Depression, Panic Disorder Smoking Status: Current every day smoker Past Alcohol Use History: None Reported Past Drug Use History: None Reported - Past Family History Father Family Medical History: Cancer, Hyperlipidemia, Hypertension, Prostate Disorder Additional Family Medical History / Comment(s): PROSTATE CA Mother Family Medical History: Osteoarthritis (OA) Additional Family Medical History / Comment(s): MOM IS 71 Medications and Allergies Home Medications Medication Instructions Recorded Confirmed Type Aspirin [Adult Low Dose Aspirin EC] 81 mg PO DAILY 10/24/18 02/13/21 History Atorvastatin [Lipitor] 80 mg PO HS 10/24/18 02/13/21 History Magnesium Oxide [Mag-Ox] 400 mg PO DAILY #28 tab 11/05/18 02/13/21 Rx Famotidine [Pepcid] 20 mg PO BID #60 tab 11/21/18 02/13/21 Rx Tamsulosin HCl [Flomax] 0.4 mg PO DAILY 12/24/19 02/13/21 History lamoTRIgine [LaMICtal] 200 mg PO BID tab 01/16/20 02/13/21 Rx Citalopram Hydrobromide [CeleXA] 40 mg PO DAILY 04/26/20 02/13/21 History QUEtiapine FUMARATE [SEROquel] 300 mg PO HS 04/26/20 02/13/21 History lamoTRIgine [LaMICtal] 25 mg PO BID #0 04/28/20 02/13/21 Rx Carvedilol [Coreg] 25 mg PO BID 05/15/20 02/13/21 History amLODIPine [Norvasc] 5 mg PO DAILY 05/15/20 02/13/21 History hydroCHLOROthiazide [Hydrodiuril] 25 mg PO DAILY 05/15/20 02/13/21 History Baclofen [Lioresal] 20 mg PO TID 01/25/21 02/13/21 History Valsartan/Hydrochlorothiazide 1 tab PO DAILY 01/25/21 02/13/21 History [Valsartan-Hctz 160-25 mg Tab] Zonisamide [Zonegran] 200 mg PO BID 01/25/21 02/13/21 History Thiamine [Vitamin B-1] 100 mg PO DAILY@1200 tab 01/28/21 02/13/21 Rx Multivitamins, Thera [Multivitamin 1 tab PO DAILY 02/13/21 02/13/21 History (formulary)] Allergies Allergy/AdvReac Type Severity Reaction Status Date / Time No Known Allergies Allergy Verified 02/13/21 14:07 Physical Exam Vitals: Vital Signs Temp Pulse Pulse Resp BP BP Pulse Ox 02/14/21 08:07 98.9 F 87 20 164/94 98 02/14/21 03:32 85 20 172/98 94 L 02/14/21 00:00 97.6 F 79 20 140/91 95 02/13/21 20:00 97.5 F L 76 20 129/83 95 02/13/21 16:46 69 18 109/76 02/13/21 15:35 68 18 124/80 98 02/13/21 14:29 80 20 86/56 02/13/21 13:24 72 16 112/68 Intake and Output 02/13/21 02/14/21 02/14/21 22:59 06:59 14:59 Intake Total 0 900 Balance 0 900 Intake: Intake, IV Titration 900 Amount Sodium Chloride 0.9% 1, 900 000 ml @ 75 mls/hr IV . [id number] [facility] Rx#:[id number] Oral 0 Other: Voiding Method Diaper Diaper Diaper # Voids 2 1 # Bowel Movements 2 -GENERAL: The patient is confused, patient keeps moving while in bed, not in any acute distress. Well developed, well nourished. -HEENT: Pupils are round and equally reacting to light. EOMI. No scleral icterus. No conjunctival pallor. Normocephalic, atraumatic. No pharyngeal erythema. No thyromegaly. Ecchymosis around both eyes CARDIOVASCULAR: S1 and S2 present. No murmurs, rubs, or gallops. PULMONARY: Chest is clear to auscultation, no wheezing or crackles. ABDOMEN: Soft, nontender, nondistended, normoactive bowel sounds. No palpable organomegaly. MUSCULOSKELETAL: No joint swelling or deformity. EXTREMITIES: No cyanosis, clubbing, or pedal edema. -NEUROLOGICAL: Examination is limited by patient mental status changes. Current on the proximal intact. Patient moves both upper and lower extremities symmetrically. SKIN: No rashes. No petechiae Results CBC & Chem 7: 02/14/21 05:54 02/14/21 05:54 Labs: Abnormal Lab Results - Last 24 Hours (Table) 02/13/21 02/13/21 02/13/21 Range/Units 13:37 13:37 13:37 WBC 16.6 H (3.8-10.6) k/uL RBC 4.06 L (4.30-5.90) m/uL Hct 38.6 L (39.0-53.0) % Neutrophils # 14.6 H (1.3-7.7) k/uL Lymphocytes # 0.8 L (1.0-4.8) k/uL APTT 21.5 L (22.0-30.0) sec Chloride (98-107) mmol/L Carbon Dioxide (22-30) mmol/L BUN 41 H (9-20) mg/dL Creatinine 2.61 H (0.66-1.25) mg/dL Glucose 147 H (74-99) mg/dL 02/14/21 02/14/21 Range/Units 05:54 05:54 WBC 15.9 H (3.8-10.6) k/uL RBC 4.09 L (4.30-5.90) m/uL Hct (39.0-53.0) % Neutrophils # 14.2 H (1.3-7.7) k/uL Lymphocytes # 0.6 L (1.0-4.8) k/uL APTT (22.0-30.0) sec Chloride 113 H (98-107) mmol/L Carbon Dioxide 18 L (22-30) mmol/L BUN 33 H (9-20) mg/dL Creatinine 1.45 H (0.66-1.25) mg/dL Glucose 132 H (74-99) mg/dL Assessment and Plan Assessment: Altered mental status, rule out intracranial lesions. Possible metabolic encephalopathy Breakthrough seizureA suspected Left lower quadrant tenderness Nasal bone fracture Left forehead hematoma Patient with mild tachypnea and leukocytosis Acute kidney injury, present on admission. Improving Hypertension Chronic kidney disease stage III Hyperlipidemia History of GERD History of left side hemorrhagic stroke with right hemiparesis with periods of irritable and agitation History of depression and suicidal ideation History of left pneumothorax status post chest tube Plan: Sizer pleasant 55 years old male who presents with breakthrough seizure Ativan as needed Currently on Keppra 1000 twice a day. Continued on Lamictal home dose of Neurology consult ENT and surgery consulted for trauma and broken nasal bone Were going to order CT of the abdomen and pelvis with no contrast for patients with elevated creatinine Patient is a started empirically on Unasyn. Follow-up calcitonin. Blood cult ure, sent urine in analysis labs and meds were reviewed.. Continue same treatment. Continue with s ymptomatic treatment. Resume home medication. Monitor lytes and vitals. DVT and GI prophylaxis. Further recommendations depends on the clinical course of the patient DVT prophylaxis: Subcutaneous heparin GI Prophylaxis: Pepcid Prognosis is guarded
[2021-02-14] MEDS: amLODIPine 5 MG TAB PO SCH (13:02)
--- NOTE | 2021-02-14 13:20 | CT ---
EXAMINATION TYPE: CT abdomen pelvis wo con DATE OF EXAM: 02/14/2021 COMPARISON: 02/15/2014 INDICATION: LLQ tenderness DLP: 1669.4 mGycm, Automated exposure control for dose reduction was used. CONTRAST: 0 mL of Isovue 300. Study performed without Oral Contrast TECHNIQUE: Axial images were obtained from above the diaphragm to the pubic rami in the axial plane a t 5 mm thick sections. Reconstructed images are reviewed on the computer in the coronal plane. Ther e is some limitation due to motion artifact present especially the diaphragms. FINDINGS: Limited CT sections are obtained the lung bases. The lung bases are clear. CT ABDOMEN: Liver: Normal Spleen: Normal Pancreas: Normal Adrenal glands: The adrenal glands are normal. Gallbladder: Normal Kidneys: No masses are evident. There is some prominence of the renal pelves and proximal ureters. Ho wever, the ureters mediastinum normal caliber within the proximal portions without suspicious etiolog ies for obstruction. No suspicious renal or ureteral calcifications are identified. No cysts are pre sent. Aorta: Vascular calcification is within the aorta. Inferior vena cava: Normal. CT PELVIS: Loops of bowel within the abdomen and pelvis are normal. Study is without oral contrast limiting bowel evaluation. Appendix: Normal as visualized. Urinary bladder: Distended. Genitourinary structures: Prostate appears normal. Osseous structures: No suspicious lytic or sclerotic lesions. IMPRESSIONS: 1. Urinary bladder distention with some prominence of the proximal bilateral renal collecting system s. No suspicious etiology for obstruction is identified and findings are in interval development.
[2021-02-14 15:54] LABS: Appearance,Urine Clear (Clear); Bacteria,Urine Rare /hpf; Bilirubin,Urine Negative (Negative); Blood,Urine Small (Negative); Color,Urine Yellow; Glucose,Urine (UA) Negative (Negative); Ketones,Urine Negative (Negative); Leukocyte Esterase,Urine Negative (Negative); Mucus,Urine Rare /hpf; Nitrite,Urine Negative (Negative); PH, Urine 6.5 (5.0-8.0); Protein,Urine 1+ (Negative); RBC,Urine 119 /hpf (0-5); Specific Gravity,Urine 1.021 (1.001-1.035); Squamous Epithelial Cell,Urine <1 /hpf (0-4); Urobilinogen,Urine <2.0 mg/dL (<2.0); WBC,Urine 1 /hpf (0-5)
[2021-02-14 16:00] LABS: Amphetamine Screen,Urine Not Detected (NotDetected); Barbiturate Screen,Urine Not Detected (NotDetected); Benzodiazepines Screen,Urine Detected (NotDetected); Cocaine Screen,Urine Not Detected (NotDetected); Methadone Screen, Urine Not Detected (NotDetected); Opiate Screen,Urine Not Detected (NotDetected); Oxycodone Screen, Urine Not Detected (NotDetected); Phencyclidine Screen,Urine Not Detected (NotDetected); Tricyclic Antidepressant,Urine Detected (NotDetected); Urn Cannabinoid Scrn Not Detected (NotDetected)
[2021-02-14] MEDS: FAMOTIDINE 20 MG TAB PO SCH (20:38)
[2021-02-14] MEDS: ATORVASTATIN 80 MG TAB PO SCH (20:38)
[2021-02-14] MEDS: HEPARIN SODIUM,PORCINE/PF 5,000 UNIT/0.5 ML SYRINGE SQ SCH (20:41)
[2021-02-15] MEDS: carvediloL 12.5 MG TAB PO SCH ×2 (06:25→18:52)
[2021-02-15] MEDS: SODIUM CHLORIDE 0.9% 1,000 ML IV SCH ×2 (06:25→23:04)
--- NOTE | 2021-02-15 08:02 | XR ---
EXAMINATION TYPE: XR chest 1V DATE OF EXAM: 02/15/2021 COMPARISON: 02/13/2021 HISTORY: Shortness of breath TECHNIQUE: Single frontal view of the chest is obtained. FINDINGS: Subsegmental changes at the left lung base. No pleural effusion or pneumothorax. No overt failure. Mild hyperinflation. Interstitium is improved. IMPRESSION: Improving interstitium which now has a normal appearance. Left basilar atelectasis versu s early infiltrate correlate clinically.
[2021-02-15 08:51] LABS: Basophils # (A) 0.1 k/uL (0-0.2); Basophils % (A) 1 %; Eosinophils # (A) 0.2 k/uL (0-0.7); Eosinophils % (A) 3 %; HCT 35.3 % (39.0-53.0); HGB 12.4 gm/dL (13.0-17.5); Lymphocytes # (A) 1.4 k/uL (1.0-4.8); Lymphocytes % (A) 15 %; MCH 33.6 pg (25.0-35.0); MCHC 35.2 g/dL (31.0-37.0); MCV 95.4 fL (80.0-100.0); Mean Platelet Volume 7.8; Monocytes # (A) 0.9 k/uL (0-1.0); Monocytes % (A) 9 %; Neutrophils # (A) 6.9 k/uL (1.3-7.7); Neutrophils % (A) 72 %; Platelet Count 244 k/uL (150-450); RDW 12.6 % (11.5-15.5); WBC 9.6 k/uL (3.8-10.6)
[2021-02-15 08:56] LABS: Calcium 8.4 mg/dL (8.4-10.2); Potassium 3.4 mmol/L (3.5-5.1)
[2021-02-15] MEDS: ASPIRIN 81 MG PO SCH (09:00)
[2021-02-15] MEDS: levETIRAcetam IV 1,000 MG in SALINE 1 100ML.BAG IVPB SCH ×2 (10:00→21:47)
[2021-02-15] MEDS: lamoTRIgine 25 MG TAB PO SCH ×2 (10:00→21:46)
[2021-02-15] MEDS: CITALOPRAM HYDROBROMIDE 20 MG TAB PO SCH (10:00)
[2021-02-15] MEDS: amLODIPine 5 MG TAB PO SCH (10:00)
[2021-02-15] MEDS: ZONISAMIDE 100 MG CAP PO SCH ×2 (10:00→21:48)
[2021-02-15] MEDS: lamoTRIgine 100 MG TAB PO SCH ×2 (10:00→21:45)
[2021-02-15] MEDS: HEPARIN SODIUM,PORCINE/PF 5,000 UNIT/0.5 ML SYRINGE SQ SCH ×2 (10:00→23:05)
--- NOTE | 2021-02-15 11:41 | EEG ---
ELECTROENCEPHALOGRAM REPORT DATE OF SERVICE: 02/15/2021 PREAMBLE: This is a 55-year-old male with seizure disorder. This study is performed to evaluate for any epileptiform activity. EEG FINDINGS: This is a 21-channel digital EEG recorded with video component, utilizing 10/20 international system with referential bipolar montages. Background consists of moderately developed, poorly regulated, predominantly moderate amplitude theta in the 5- 6 hertz range, seen bilaterally in anterior and posterior head regions. Background does not seem to be reactive to eye opening or closing. Occasional left temporal sharp- appearing waves were seen, particularly in the later part of the study. Different stages of sleep were not seen. Photic driving response was not seen. No electrographic seizure was recorded. EKG channel showed no arrhythmia. Hyperventilation was not done. IMPRESSION: This is an abnormal EEG due to: 1) background slowing of moderate degree, suggestive of generalized cerebral dysfunction as can be seen in toxic metabolic encephalopathy or due to diffuse structural brain abnormality or from postictal state; 2) occasional left temporal sharp-appearing waves were seen. These did not appear clearly epileptiform. Consider prolonged EEG. No electrographic seizure was recorded. MMODL / IJN: [id number] / MTDD
[2021-02-15] MEDS: VALSARTAN 160 MG TAB PO SCH (12:00)
[2021-02-15] MEDS: TAMSULOSIN 0.4 MG CAP.ER.24H PO SCH (12:00)
[2021-02-15] MEDS: hydroCHLOROthiazide 25 MG TAB PO SCH ×2 (12:08)
--- NOTE | 2021-02-15 15:20 | CONS ---
CONSULTATION REASON FOR CONSULT: Acute kidney injury. HISTORY OF PRESENT ILLNESS: The patient is a 55-year-old male who was admitted to the hospital with increased irritability and agitation. He was found on the floor by his friend and was noted to have significant ecchymosis around his eyes and swelling on the face. Face CT done on February 13 on initial admission showed left side frontal scalp hematoma and periorbital soft tissue swelling. Nasal bone fracture was seen. A CT of the abdomen showed no major abnormalities. Urinary bladder was distended with prominent of bilateral renal collecting systems was noted. Patient's serum creatinine was 2.6 on initial admission. The patient now has a Saenz catheter. His creatinine is down to 1.17. Review of vital signs shows blood pressure was low on 2 locations with systolic of 86 and 109, otherwise it has been mostly above 120 mmHg systolic. MEDICATIONS: Home medications included hydrochlorothiazide. I do not see any JASON inhibitors. I do see angiotensin receptor blockers and no NSAIDs. PAST MEDICAL HISTORY: History of CVA, TIA, gastroesophageal reflux disease, hyperlipidemia, hypertension, previous history of pneumonia, seizure disorder, left hemorrhagic stroke with right- sided weakness, history of depression, history of left pneumothorax with chest tube placement, a narcotic addiction. PAST SURGICAL HISTORY: Colonoscopy, cataract surgery, testicular surgery during childhood. SOCIAL HISTORY: Positive for current smoking. MEDICATIONS: Medications prior to admission included aspirin, Lipitor, magnesium oxide, Pepcid, Flomax, Lamictal, Seroquel, Lamictal, Seroquel, Coreg, Norvasc, hydrochlorothiazide, valsartan, vitamin B1, multivitamins. ALLERGIES: None. REVIEW OF SYSTEMS: As per HPI. Other systems negative. EXAMINATION: Awake, comfortable. He is not in any acute distress. He has significant ecchymosis on the eyes. Examination of the heart S1, S2. Examination of the lungs, bilateral breath sounds are heard. Abdomen is soft, nontender. Examination of lower extremities shows no edema. EN[employer] MARK[employer] exam cannot be assessed accurately. There is some right-sided weakness noted. Patient is not very cooperative. LAB: Show sodium 140, potassium 3.4, chloride 113, BUN 31, creatinine 1.17, hemoglobin 12.4 g/dL. ASSESSMENT: 1. Acute kidney injury prerenal associated with low blood pressure, volume depletion as well as obstructive uropathy currently with indwelling Saenz catheter with good urine output and improving renal function. Patient is maintained on IV fluids which I will continue. I will hold off on the hydrochlorothiazide and the Diovan as blood pressure remains low. If blood pressure is high, we can resume the angiotensin receptor blockers. 2. Status post fall and ecchymosis with nasal fracture. 3. History of depression and agitation. 4. History of cerebrovascular accident with intracranial hemorrhage and right-sided weakness. PLAN: Continue with the Saenz catheter. Continue with IV fluids. Hold diuretics and can resume angiotensin receptor blockers if blood pressure is elevated. MMODL / IJN: [id number] /
--- NOTE | 2021-02-15 19:30 | CT ---
EXAMINATION TYPE: CT brain wo con DATE OF EXAM: 02/15/2021 COMPARISON: Brain CT 02/13/2021 and 01/25/2021 HISTORY: Confusion. CT DLP: 1174.3 mGycm Automated exposure control for dose reduction was used. FINDINGS: There is new serpiginous hyperdensity in the left central sulcus. There is redemonstration of a left greater than right scalp hematoma and periorbital swelling. No large vessel territory territory infarct, mass, mass effect or midline shift. No hydrocephalus. Th e werner-white distinction is maintained. Opacification of ethmoid air cells on the left. The temporal bone structures are well-aerated. The gl obes and orbits skull base and calvarium of an unremarkable appearance. IMPRESSION: 1. NEW LEFT SUBARACHNOID HEMORRHAGE. 2. There is redemonstration of a left greater than right scalp hematoma ad periorbital swelling.
[2021-02-15] MEDS: FAMOTIDINE 20 MG TAB PO SCH (21:45)
[2021-02-15] MEDS: ATORVASTATIN 80 MG TAB PO SCH (21:47)
[2021-02-15] MEDS: ACETAMINOPHEN TAB 325 MG TAB PO PRN (21:47)
[2021-02-16] MEDS: carvediloL 12.5 MG TAB PO SCH ×2 (06:27→18:22)
[2021-02-16] MEDS: levETIRAcetam IV 1,000 MG in SALINE 1 100ML.BAG IVPB SCH ×2 (08:48→20:39)
[2021-02-16] MEDS: VALSARTAN 160 MG TAB PO SCH (08:48)
[2021-02-16] MEDS: lamoTRIgine 25 MG TAB PO SCH ×2 (08:49→20:38)
[2021-02-16] MEDS: amLODIPine 5 MG TAB PO SCH (08:49)
[2021-02-16] MEDS: TAMSULOSIN 0.4 MG CAP.ER.24H PO SCH (08:49)
[2021-02-16] MEDS: lamoTRIgine 100 MG TAB PO SCH ×2 (08:49→20:37)
[2021-02-16] MEDS: CITALOPRAM HYDROBROMIDE 20 MG TAB PO SCH (08:49)
[2021-02-16] MEDS: ZONISAMIDE 100 MG CAP PO SCH ×2 (08:50→20:38)
[2021-02-16] MEDS: SODIUM CHLORIDE 0.9% 1,000 ML IV SCH (08:52)
--- NOTE | 2021-02-16 09:04 | P.PN ---
Subjective Progress Note Date: 02/15/21 Patient was seen for a follow-up. Patient's mother was also present today. Patient's mother states that he is sleeping a lot. He is not eating much. However she feels he is better than how he was. Still very confused. Patient's mother states that he lives by himself. He follows up with Dr. Lai. No further seizures have been reported. Patient complains of headache, and in in the nose from nasal fracture. Objective - Vital Signs Vital signs: Vital Signs Temp 97.9 F 02/16/21 04:00 Pulse 79 02/16/21 06:25 Resp 18 02/16/21 04:00 BP 127/62 02/16/21 06:25 Pulse Ox 97 02/16/21 04:00 Intake & Output 02/15/21 02/16/21 02/16/21 18:59 06:59 18:59 Intake Total 1460 Output Total 475 1125 Balance 985 -1125 Intake: IV 20 Invasive Line 4 20 Oral 1440 Output: Urine 475 1125 Other: Voiding Method Indwelling Catheter Indwelling Catheter # Bowel Movements 1 - Exam Patient is still slightly drowsy, but much more awake, and follows commands. He has recall eyes. Left orbital swelling more than the right. Pupils are round and reacting. Visual callejas appears full, face is symmetric. Muscle strength is normal in the arms and legs. No ataxia. Sensations equal. 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 Patient came with breakthrough seizure with prolonged postictal state. * Breakthrough seizure, unclear etiology. Apparently based upon report from patient's girlfriend and patient's pharmacist, he is taking medication regularly. * Altered mental status, encephalopathy, probably due to postictal state. * Nasal bone fracture, due to the fall from seizure. * History of left parietal hemorrhagic stroke in 2015 with residual mild right hemiparesis * History of tobacco use, still smokes 2 packs per day. * Hypertension * Depression. Plan: * Lamictal level 7.7 (2-15), zonisamide level 22 (10-40). Both are in therapeutic range. * EEG was performed, which revealed background slowing of moderate degree, suggestive of generalized cerebral dysfunction as can be seen with toxic me tabolic encephalopathy or due to diffuse structural brain abnormality or from postictal state. Occasional left temporal sharp-appearing waves were seen. These did not appear clearly epileptiform. Consider prolonged EEG. * Repeat CT head today, rule out slow-growing subdural hematoma. * Resume his medications including Lamictal 225 mg twice a day and zonisamide 200 mg twice a day. * Patient may benefit from prolonged EEG monitoring at epilepsy monitoring unit for further evaluation of medically intractable epilepsy. * Discussed with patient's mother in detail. Addendum: CT head was performed at 7:20 PM. It revealed new left subarachnoid hemorrhage. There is redemonstration of a left greater than right scalp hematoma and periorbital swelling. We will stop heparin and aspirin. Repeat CT head in couple days.
[2021-02-16 10:36] LABS: ALT 15 U/L (4-49); AST 19 U/L (17-59); African American GFR (CKD) >90 (>60 ml/min/1.73 sqM); Albumin 3.1 g/dL (3.5-5.0); Alkaline Phosphatase 60 U/L (38-126); Anion Gap 6 mmol/L; Blood Urea Nitrogen 18 mg/dL (9-20); Calcium 8.4 mg/dL (8.4-10.2); Carbon Dioxide 19 mmol/L (22-30); Chloride 111 mmol/L (98-107); Glucose 93 mg/dL (74-99); Non-African American GFR(CKD) 82 (>60 ml/min/1.73 sqM); Potassium 3.3 mmol/L (3.5-5.1); Sodium 136 mmol/L (137-145); Total Bilirubin 0.6 mg/dL (0.2-1.3); Total Protein 5.5 g/dL (6.3-8.2)
[2021-02-16] MEDS ORDERED: Potassium Replacement Protocol 1 EACH MISC MISCELLANE PRN (12:12)
[2021-02-16] MEDS: POTASSIUM CHLORIDE ER 20 MEQ TAB.ER PO SCH ×2 (12:29→14:11)
[2021-02-16 14:15] LABS: Glucose,Whole Blood 88 mg/dL (75-99)
--- NOTE | 2021-02-16 14:15 | P.PN ---
Subjective Progress Note Date: 02/16/21 Patient was seen for a follow-up. Patient's mother was also present today. Patient states the headache is 2-3/10. It involves right orbital region. He appears much more alert and awake. Denies any new numbness tingling or any problem with the vision. Patient is laying comfortably in the bed. Patient states that he was taking aspirin for headaches, does not have any cardiac issues. Objective - Vital Signs Vital signs: Vital Signs Temp 97.2 F L 02/16/21 12:07 Pulse 61 02/16/21 12:07 Resp 18 02/16/21 12:07 BP 134/82 02/16/21 12:07 Pulse Ox 98 02/16/21 12:07 Intake & Output 02/15/21 02/16/21 02/16/21 18:59 06:59 18:59 Intake Total 1460 20 Output Total 475 1125 Balance 985 -1125 20 Weight 60.5 kg Intake: IV 20 20 Invasive Line 4 20 20 Oral 1440 0 Output: Urine 475 1125 Other: Voiding Method Indwelling Catheter Indwelling Catheter Indwelling Catheter # Bowel Movements 1 - Exam Patient is mildly drowsy, but much more alert and awake than yesterday, answering appropriately. Patient knows the year is 21, could not concentrate about a month. He knows name of the president and that he is in [facility]. Speech and language functions are normal. Pupils are round and reacting to light. Visual callejas are full. Extraocular muscles are intact. Facial bruises and left orbital swelling has much improved. Face is symmetric. Tongue protrudes the midline. Muscle strength is normal in the arms and legs except hip flexion which is 4+ bilaterally. Sensations are equal. No ataxia. 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 Patient came with breakthrough seizure with prolonged postictal state. * Breakthrough seizure, unclear etiology. Apparently based upon report from patient's girlfriend and patient's pharmacist, he is taking medication regularly. * Altered mental status, encephalopathy, probably due to postictal state, concussion, now improved. * Nasal bone fracture, due to the fall from seizure. * History of left parietal hemorrhagic stroke in 2015 with residual mild right hemiparesis * History of tobacco use, still smokes 2 packs per day. * Hypertension * Depression. Plan: * Lamictal level 7.7 (2-15), zonisamide level 22 (10-40). Both are in therapeutic range. * EEG was performed, which revealed background slowing of moderate degree, suggestive of generalized cerebral dysfunction as can be seen with toxic metabolic encephalopathy or due to diffuse structural brain abnormality or from postictal state. Occasional left temporal sharp-appearing waves were seen. These did not appear clearly epileptiform. Consider prolonged EEG. * Repeat CT head today, rule out slow-growing subdural hematoma. * Resume his medications including Lamictal 225 mg twice a day and zonisamide 200 mg twice a day. * Patient may benefit from prolonged EEG monitoring at epilepsy monitoring unit for further evaluation of medically intractable epilepsy. * Discussed with patient's mother in detail. * CT head was performed 02/15/2021 revealed right-sided subdural hematoma along the right tentorium. Also revealed new left subarachnoid hemorrhage. There is redemonstration of a left greater than right scalp hematoma and periorbital swelling. * We will stop heparin and aspirin. * Repeat CT head in a.m. * Patient being considered for transfer to higher level of care for neurosurgical evaluation.
--- NOTE | 2021-02-16 16:24 | PN ---
PROGRESS NOTE Patient is seen for followup for acute kidney injury, mostly prerenal, improved with IV hydration. The patient's creatinine is down to 1.01 from 2.6 on initial admission. PHYSICAL EXAMINATION: On examination today, blood pressure is 134/82, heart rate 61 per minute. He is afebrile. Examination of the heart S1, S2. Examination of the lungs, bilateral breath sounds are heard. Abdomen is soft, nontender and there is no evidence of edema. Patient has bilateral ecchymosis on the face around the eyes. LAB: Show sodium 136, potassium 3.3, chloride 111, CO2 is 19, BUN 18, creatinine 1.0. ASSESSMENT: 1. Acute kidney injury, prerenal, currently improved with IV hydration. Patient also had obstructive uropathy, currently with indwelling Saenz catheter with good urine output. Blood pressure has been low and diuretics and angiotensin receptor blockers on hold. 2. Status post fall and ecchymosis with nasal fracture. 3. History of depression and agitation. 4. History of cerebrovascular accident with intracranial hemorrhage and right-sided weakness. PLAN: Continue with the IV fluids for now. Decrease dose of Diovan if blood pressure remains low, however, currently it is mostly around 119-130 mmHg. Therefore, we can continue with the same dose for now. MMODL / IJN: [id number] /
--- NOTE | 2021-02-16 18:06 | P.CNPUL ---
History of Present Illness Consult date: 02/16/21 Chief complaint: Subarachnoid hemorrhage History of present illness: This is a 55-year-old male patient who got transferred to the intensive care unit for monitoring of the mental status. The patient was hospitalized on 02/14/2021. 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 The patient arrived to the hospital as the patient was found to be unresponsive and he was noted to have some blood on his face. The patient was found face down in the kitchen and he was unresponsive during transport to the hospital. His vitals were stable. Workup that was done in the maintenance department showed a white second of 16.6 remote over 15.4. Normal correlation profile. Normal platelet count. Creatinine of 2.6 with a mean of 41. Normal LFTs. Normal ammonia level. Normal CPK level. Troponins were negative. Alcohol was negative. Overnight the testing was negative. The patient's Vimpat level was 5.8 which is subtherapeutic knowing that he has history of seizures. CAT scan of the brain was done that showed no acute infection or abnormalities. The patient had a left-sided ethmoid sinusitis. No fractures. CAT scan of the facial bones revealed some nose bone fracture. The patient also had a left-sided frontal scalp hematoma and some left orbital soft tissue swelling. He was unable to provide any history. Seizure was suspected. Post ictal state was suspected. Apparently his last seizure was around 2 weeks ago for which she was hospita lized for several days. He had broken his eye socket with that seizure. Based on the history, the patient continues to have episodes where he stands his face on the floor with the seizures. No history of any drug noncompliance.. Apparently he developed seizure disorder following his hemorrhagic stroke approximately 5 years ago. During the hospital stay, the patient had some recovery in his mentation. He appeared much more alert and awake on subsequent follow-ups. A repeat CAT scan of the brain that was done on 02/15/2021 showed a new left subarachnoid hemorrhage and there was also demonstration of the left greater than right scalp hematoma. For that reason, the patient got transferred to the ICU for further monitoring and the patient is ultimately going to be transferred to neurology service at [facility]. The patient is currently on IV Keppra for seizures. The patient is also on Lamictal. His renal function is normalized. He was started on IV Rocephin for a possibility of an underlying urine checked infection. Urine injection was positive for tricyclics and benzodiazepines. His pro-calcitonin level is at 0.1. His white cell count is down to 9.6. Review of Systems Constitutional: Reports daytime sleepiness, Reports fatigue, Reports lethargy, Reports poor appetite Eyes: denies as per HPI, denies blurred vision, denies bulging eye, denies decreased vision, denies diplopia, denies discharge, denies dry eye, denies irritation, denies itching, denies pain, denies photophobia, denies loss of meredith pheral vision, denies loss of vision, denies tunnel vision/blind spots Ears: deny: decreased hearing, ear discharge, earache, tinnitus Ears, nose, mouth and throat: Reports as per HPI Cardiovascular: Reports as per HPI Respiratory: Reports as per HPI Gastrointestinal: Reports as per HPI Genitourinary: Reports as per HPI Musculoskeletal: Reports frequent falls Musculoskeletal: absent: ankle pain, ankle stiffness, ankle swelling Integumentary: Reports as per HPI Neurological: Reports head injury, Reports paralysis, Reports seizures, Reports weakness Psychiatric: Reports as per HPI Endocrine: Reports as per HPI, Reports fatigue Hematologic/Lymphatic: Reports as per HPI Allergic/Immunologic: Reports as per HPI Past Medical History Past Medical History: CVA/TIA, GERD/Reflux, Hyperlipidemia, Hypertension, Pneumonia, Seizure Disorder Additional Past Medical History / Comment(s): L hemorrhagic stroke-R sided weakness and has had occasions of increased irritability/agitation/isolation, multiple mental health unit admissions with [facility] on [facility] with major depression/suicidal ideations without plan/acute anxiety, uncontrolled seizures, L pneumothorax with chest tube, migraines-has used other people's narcotics in the past per past medical record but pt denies, benign rectal polyp, etoh last drink more than 10 years ago. History of Any Multi-Drug Resistant Organisms: None Reported Past Surgical History: No Surgical Hx Reported Additional Past Surgical History / Comment(s): COLONOSCOPY POLYPS REMOVED-NEG, bilateral cataract removal, R testicular surgery as a little boy. Past Anesthesia/Blood Transfusion Reactions: No Reported Reaction Additional Past Anesthesia/Blood Transfusion Reaction / Comment(s): Pt has never recieved blood. Past Psychological History: Anxiety, Bipolar, Depression, Panic Disorder Smoking Status: Current every day smoker Past Alcohol Use History: None Reported Past Drug Use History: None Reported - Past Family History Father Family Medical History: Cancer, Hyperlipidemia, Hypertension, Prostate Disorder Additional Family Medical History / Comment(s): PROSTATE CA Mother Family Medical History: Osteoarthritis (OA) Additional Family Medical History / Comment(s): MOM IS 71 Medications and Allergies Home Medications Medication Instructions Recorded Confirmed Type Aspirin [Adult Low Dose Aspirin EC] 81 mg PO DAILY 10/24/18 02/13/21 History Atorvastatin [Lipitor] 80 mg PO HS 10/24/18 02/13/21 History Magnesium Oxide [Mag-Ox] 400 mg PO DAILY #28 tab 11/05/18 02/13/21 Rx Famotidine [Pepcid] 20 mg PO BID #60 tab 11/21/18 02/13/21 Rx Tamsulosin HCl [Flomax] 0.4 mg PO DAILY 12/24/19 02/13/21 History lamoTRIgine [LaMICtal] 200 mg PO BID tab 01/16/20 02/13/21 Rx Citalopram Hydrobromide [CeleXA] 40 mg PO DAILY 04/26/20 02/13/21 History QUEtiapine FUMARATE [SEROquel] 300 mg PO HS 04/26/20 02/13/21 History lamoTRIgine [LaMICtal] 25 mg PO BID #0 04/28/20 02/13/21 Rx Carvedilol [Coreg] 25 mg PO BID 05/15/20 02/13/21 History amLODIPine [Norvasc] 5 mg PO DAILY 05/15/20 02/13/21 History hydroCHLOROthiazide [Hydrodiuril] 25 mg PO DAILY 05/15/20 02/13/21 History Baclofen [Lioresal] 20 mg PO TID 01/25/21 02/13/21 History Valsartan/Hydrochlorothiazide 1 tab PO DAILY 01/25/21 02/13/21 History [Valsartan-Hctz 160-25 mg Tab] Zonisamide [Zonegran] 200 mg PO BID 01/25/21 02/13/21 History Thiamine [Vitamin B-1] 100 mg PO DAILY@1200 tab 01/28/21 02/13/21 Rx Multivitamins, Thera [Multivitamin 1 tab PO DAILY 02/13/21 02/13/21 History (formulary)] Allergies Allergy/AdvReac Type Severity Reaction Status Date / Time No Known Allergies Allergy Verified 02/13/21 14:07 Physical Exam Vitals: Vital Signs Temp Pulse Resp BP Pulse Ox 02/16/21 12:07 97.2 F L 61 18 134/82 98 02/16/21 08:49 97.6 F 62 18 119/58 98 02/16/21 06:25 79 127/62 02/16/21 04:00 97.9 F 63 18 104/62 97 02/16/21 00:00 97.9 F 67 20 135/81 98 02/15/21 20:00 97.8 F 63 18 126/70 97 Intake and Output 02/16/21 02/16/21 02/16/21 06:59 14:59 22:59 Intake Total 695 150 Output Total 1125 200 Balance -1125 495 150 Intake: IV 695 75 Invasive Line 4 20 Sodium Chloride 0.9% 1, 525 75 000 ml @ 75 mls/hr IV . [id number] [facility] Rx#:[id number] cefTRIAXone 2 gm In 50 Sodium Chloride 0.9% 50 ml @ 100 mls/hr IVPB Q24HR [facility] Rx#:[id number] levETIRAcetam IV 1,000 mg 100 In Saline 1 100ml.bag @ 400 mls/hr IVPB Q12HR [facility] Rx#:[id number] Intake, IV Titration 75 Amount Sodium Chloride 0.9% 1, 75 000 ml @ 75 mls/hr IV . [id number] [facility] Rx#:[id number] Oral 0 Output: Urine 1125 200 Other: Voiding Method Indwelling Catheter Indwelling Catheter Weight 60.5 kg -GENERAL: The patient is awake and alert and following commands, not in any acute distress. Well developed, well nourished. The patient has left orbital swelling and without evidence swelling, left more than right -HEENT: Pupils are round and equally reacting to light. EOMI. No scleral icterus. No conjunctival pallor. Normocephalic, atraumatic. No pharyngeal erythema. No thyromegaly. Ecchymosis around both eyes CARDIOVASCULAR: S1 and S2 present. No murmurs, rubs, or gallops. PULMONARY: Chest is clear to auscultation, no wheezing or crackles. ABDOMEN: Soft, nontender, nondistended, normoactive bowel sounds. No palpable organomegaly. MUSCULOSKELETAL: No joint swelling or deformity. EXTREMITIES: No cyanosis, clubbing, or pedal edema. -NEUROLOGICAL: Patient is still slightly drowsy, but much more awake, and follows commands. He has recall eyes. Left orbital swelling more than the right. Pupils are round and reacting. Visual callejas appears full, face is symmetric. Muscle strength is normal in the arms and legs. No ataxia. Sensations equal. SKIN: No rashes. No petechiae Results - Laboratory Findings CBC and BMP: 02/15/21 07:58 02/16/21 17:01 PT/INR, D-dimer PT 10.2 sec (9.0-12.0) 02/13/21 13:37 INR 0.9 (<1.2) 02/13/21 13:37 Abnormal lab findings: Abnormal Labs 02/13/21 02/13/21 02/13/21 13:37 13:37 13:37 WBC 16.6 H RBC 4.06 L Hgb Hct 38.6 L Neutrophils # 14.6 H Lymphocytes # 0.8 L APTT 21.5 L Sodium Potassium Chloride Carbon Dioxide BUN 41 H Creatinine 2.61 H Glucose 147 H Total Protein Albumin Procalcitonin Urine Protein Urine Blood Urine RBC Urine Bacteria Urine Mucus U Tricyclic Antidepress U Benzodiazepines Scrn 02/14/21 02/14/21 02/14/21 05:54 05:54 15:26 WBC 15.9 H RBC 4.09 L Hgb Hct Neutrophils # 14.2 H Lymphocytes # 0.6 L APTT Sodium Potassium Chloride 113 H Carbon Dioxide 18 L BUN 33 H Creatinine 1.45 H Glucose 132 H Total Protein Albumin Procalcitonin Urine Protein 1+ H Urine Blood Small H Urine RBC 119 H Urine Bacteria Rare H Urine Mucus Rare H U Tricyclic Antidepress Detected H U Benzodiazepines Scrn Detected H 02/15/21 02/15/21 02/15/21 07:58 07:58 07:58 WBC RBC 3.70 L Hgb 12.4 L Hct 35.3 L Neutrophils # Lymphocytes # APTT Sodium Potassium 3.4 L Chloride 113 H Carbon Dioxide 21 L BUN 31 H Creatinine Glucose 100 H Total Protein Albumin Procalcitonin 0.10 H Urine Protein Urine Blood Urine RBC Urine Bacteria Urine Mucus U Tricyclic Antidepress U Benzodiazepines Scrn 02/16/21 10:04 WBC RBC Hgb Hct Neutrophils # Lymphocytes # APTT Sodium 136 L Potassium 3.3 L Chloride 111 H Carbon Dioxide 19 L BUN Creatinine Glucose Total Protein 5.5 L Albumin 3.1 L Procalcitonin Urine Protein Urine Blood Urine RBC Urine Bacteria Urine Mucus U Tricyclic Antidepress U Benzodiazepines Scrn - Diagnostic Findings Chest x-ray: image reviewed Assessment and Plan Plan: 1 new-onset left-sided subarachnoid hemorrhage, awaiting to be transferred to a neurology surgical Center at [facility]. This could be traumatic in nature. 2 history of seizure disorder. The patient has medical intractable epilepsy and the patient has been having frequent breakthrough seizure and the patient was postictal state at a time of admission, improved 3 altered mentation secondary to postictal state in addition to possibility of a brain concussion due to fall and trauma, improving 4 history of a hemorrhagic stroke involving the left parietal hemisphere with some right-sided weakness back in 2016 [place] by development of epilepsy 5 nasal bone fracture secondary to fall 6 hypertension 7 depression 8 history of smoking 9 acute kidney injury improving with fluid 10 hypertension 11 hyperlipidemia Plan Management of seizures and epilepsy per neurology. The patient is on Lamictal and zonisamide and IV Keppra. Neurochecks Follow-up CAT scan regarding the subarachnoid hemorrhage which is of a new onset Stop all form of anticoagulant including aspirin and heparin Seizure precautions IV fluids IV Rocephin EEG per neurology We'll continue to follow.
[2021-02-16] MEDS: ATORVASTATIN 80 MG TAB PO SCH (20:36)
[2021-02-16] MEDS: FAMOTIDINE 20 MG TAB PO SCH (20:37)
--- NOTE | 2021-02-16 23:33 | P.PN ---
Subjective Progress Note Date: 02/15/21 Principal diagnosis: Altered mental status due to toxic metabolic encephalopathy and postictal state. Status post fall and nasal bone fracture. This is a pleasant 55 years old male with past medical history of CVA/TIA, GERD/Reflux, Hyperlipidemia, Hypertension, Seizure Disorder, L hemorrhagic stroke-R sided weakness and has had occasions of increased i rritability/agitation/isolation, multiple mental health unit admissions with most recent on 10/24/18 [facility] with major depression/suicidal ideations without plan/acute anxiety, uncontrolled seizures, L pneumothorax with chest tube, migraines Patient is poor historian, he looks confused and agitated, hiccups moving his extremity, he has no attention span, he does not follow commands. Patient cannot provide information and they were obtained from the mother at bedside for most of her records. Mother she haven't seen him recently however she talked him Sunday. And then she got a call yesterday from his friends that they found him on the floor patient has ecchymosis around his both eyes, some swelling around his nose. He has tenderness in the left lower quadrant, patient does not allow me to touch this area Vitas looks stable, slightly tachypneic, blood pressure is slightly elevated 164/94. He has mild leukocytosis 15.9 K. INR is 0.9. Elevated creatinine 2.6, and down to baseline at 1.4, baseline is 1.2-1.5 Her enzymes not elevated. Troponin is negative less than 0.01 Salicylate less than 1, serum alcohol less than 10, Tylenol level less than 10. Coronavirus not detected. Chest x-ray: Slightly increased interstitial markings compared to old exam. No heart failure or pulmonary consolidation EKG showed normal sinus rhythm at 72 CT of the head showed no acute intracranial abnormality. Face CT: Left side frontal scalp hematoma and periorbital soft tissue swelling. Nasal bone fracture in Emergency room he was started on Unasyn and Keppra and IV fluids, currently he is on normal saline 75 mL/h he also received 2 L of NS 02/15/2021 Patient is currently lying in the bed. Patient is sleeping a lot and confused and drowsy. Patient's mother at bedside who is able to provide history. Otherwise patient denied any complaints of headache. No complaints of eye pain. CT head and cervical spine showed no acute intra-abdominal 3. There is a left- sided ethmoid sinusitis slightly increasing compared to well exam. Facial CT showed left-sided facial scalp hematoma and periorbital soft tissue swelling and nasal bone fracture. Repeat CT brain was ordered and neurology is on board. EEG showed background slowing of moderate degree suggestive of generalized cerebral dysfunction as seen in the toxic versus metabolic encephalopathy are due to diffuse structural brain abnormality or from postictal state. Chest x-ray showed improving interstitial which now has a normal appearance. Left basilar atelectasis versus early infiltrate correlate clinically. Laboratory data showed WBC 9.6 hemoglobin 12.4 and platelets 244 Sodium 140 potassium 3.4 chloride 113 BUN 31 and creatinine 1.17 and procalcitonin level is 0.10 patient is antibiotics involve ceftriaxone. Current medications reviewed. Objective - Vital Signs Vital signs: Vital Signs Temp 98.3 F 02/15/21 12:00 Pulse 63 02/15/21 12:00 Resp 18 02/15/21 12:00 BP 123/83 02/15/21 12:00 Pulse Ox 98 02/15/21 12:00 Intake & Output 02/14/21 02/15/21 02/15/21 18:59 06:59 18:59 Intake Total 1000 1340 Output Total 1100 400 Balance -100 -400 1340 Intake: IV 20 Invasive Line 4 20 Intake, IV Titration 1000 Amount Sodium Chloride 0.9% 1, 900 000 ml @ 75 mls/hr IV . [id number] [facility] Rx#:[id number] levETIRAcetam IV 1,000 mg 100 In Saline 1 100ml.bag @ 400 mls/hr IVPB Q12HR [facility] Rx#:[id number] Oral 1320 Output: Urine 1100 400 Straight 1100 Other: Voiding Method Diaper Indwelling Catheter Indwelling Catheter # Voids 2 # Bowel Movements 1 - Exam -GENERAL: The patient is confused, patient keeps moving while in bed, not in any acute distress. Well developed, well nourished. -HEENT: Pupils are round and equally reacting to light. EOMI. No scleral icterus. No conjunctival pallor. Normocephalic, atraumatic. No pharyngeal erythema. No thyromegaly. Ecchymosis around both eyes CARDIOVASCULAR: S1 and S2 present. No murmurs, rubs, or gallops. PULMONARY: Chest is clear to auscultation, no wheezing or crackles. ABDOMEN: Soft, nontender, nondistended, normoactive bowel sounds. No palpable organomegaly. MUSCULOSKELETAL: No joint swelling or deformity. EXTREMITIES: No cyanosis, clubbing, or pedal edema. -NEUROLOGICAL: Examination is limited by patient mental status changes. Patient moves both upper and lower extremities symmetrically. SKIN: No rashes. No petechiae - Labs CBC & Chem 7: 02/15/21 07:58 02/16/21 17:01 Labs: Abnormal Lab Results - Last 24 Hours (Table) 02/15/21 02/15/21 02/15/21 Range/Units 07:58 07:58 07:58 RBC 3.70 L (4.30-5.90) m/uL Hgb 12.4 L (13.0-17.5) gm/dL Hct 35.3 L (39.0-53.0) % Potassium 3.4 L (3.5-5.1) mmol/L Chloride 113 H (98-107) mmol/L Carbon Dioxide 21 L (22-30) mmol/L BUN 31 H (9-20) mg/dL Glucose 100 H (74-99) mg/dL Procalcitonin 0.10 H (0.02-0.09) ng/mL Microbiology - Last 24 Hours (Table) 02/14/21 10:36 Blood Culture - Preliminary Blood No Growth after 24 hours Assessment and Plan Assessment: Altered mental status, ruled out intracranial lesions. Possible metabolic encephalopathy Breakthrough seizure suspected Left lower quadrant tenderness Nasal bone fracture Left forehead hematoma Patient with mild tachypnea and leukocytosis Acute kidney injury, present on admission. Improving Hypertension Chronic kidney disease stage III Hyperlipidemia History of GERD History of left side hemorrhagic stroke with right hemiparesis with periods of irritable and agitation History of depression and suicidal ideation History of left pneumothorax status post chest tube Plan: Pt. is a pleasant 55 years old male who presents with breakthrough seizure Ativan as needed Currently on Keppra 1000 twice a day. Continued on Lamictal home dose of Neurology is following ENT and surgery consulted for trauma and broken nasal bone Patient is a started empirically on ceftriaxone. calcitonin 0.1. Blood culture, sent urine in analysis-no growth labs and meds were reviewed.. DVT prophylaxis: Subcutaneous heparin GI Prophylaxis: Pepcid Prognosis is guarded Time with Patient: Greater than 30
--- NOTE | 2021-02-16 23:36 | P.PN ---
Subjective Progress Note Date: 02/16/21 Principal diagnosis: Altered mental status due to toxic metabolic encephalopathy and postictal state. Status post fall and nasal bone fracture. This is a pleasant 55 years old male with past medical history of CVA/TIA, GERD/Reflux, Hyperlipidemia, Hypertension, Seizure Disorder, L hemorrhagic stroke-R sided weakness and has had occasions of increased i rritability/agitation/isolation, multiple mental health unit admissions with most recent on 10/24/18 [facility] with major depression/suicidal ideations without plan/acute anxiety, uncontrolled seizures, L pneumothorax with chest tube, migraines Patient is poor historian, he looks confused and agitated, hiccups moving his extremity, he has no attention span, he does not follow commands. Patient cannot provide information and they were obtained from the mother at bedside for most of her records. Mother she haven't seen him recently however she talked him Sunday. And then she got a call yesterday from his friends that they found him on the floor patient has ecchymosis around his both eyes, some swelling around his nose. He has tenderness in the left lower quadrant, patient does not allow me to touch this area Vitas looks stable, slightly tachypneic, blood pressure is slightly elevated 164/94. He has mild leukocytosis 15.9 K. INR is 0.9. Elevated creatinine 2.6, and down to baseline at 1.4, baseline is 1.2-1.5 Her enzymes not elevated. Troponin is negative less than 0.01 Salicylate less than 1, serum alcohol less than 10, Tylenol level less than 10. Coronavirus not detected. Chest x-ray: Slightly increased interstitial markings compared to old exam. No heart failure or pulmonary consolidation EKG showed normal sinus rhythm at 72 CT of the head showed no acute intracranial abnormality. Face CT: Left side frontal scalp hematoma and periorbital soft tissue swelling. Nasal bone fracture in Emergency room he was started on Unasyn and Keppra and IV fluids, currently he is on normal saline 75 mL/h he also received 2 L of NS 02/15/2021 Patient is currently lying in the bed. Patient is sleeping a lot and confused and drowsy. Patient's mother at bedside who is able to provide history. Otherwise patient denied any complaints of headache. No complaints of eye pain. CT head and cervical spine showed no acute intra-abdominal 3. There is a left- sided ethmoid sinusitis slightly increasing compared to well exam. Facial CT showed left-sided facial scalp hematoma and periorbital soft tissue swelling and nasal bone fracture. Repeat CT brain was ordered and neurology is on board. EEG showed background slowing of moderate degree suggestive of generalized cerebral dysfunction as seen in the toxic versus metabolic encephalopathy are due to diffuse structural brain abnormality or from postictal state. Chest x-ray showed improving interstitial which now has a normal appearance. Left basilar atelectasis versus early infiltrate correlate clinically. Laboratory data showed WBC 9.6 hemoglobin 12.4 and platelets 244 Sodium 140 potassium 3.4 chloride 113 BUN 31 and creatinine 1.17 and procalcitonin level is 0.10 patient is antibiotics involve ceftriaxone. 02/16/2021 Patient is currently lying in the bed. Awake alert and oriented. Denies any complaints of chest pain or shortness of. Patient has been afebrile. No headache or dizziness. Patient is being continued on seizure precautions and fall precautions. Patient had repeat CT head yesterday evening showed right-sided subdural hematoma as well as a left-sided subarachnoid hemorrhage are both related to fall at home. Patient also has nasal bone fracture with admission. Due to new finding of subarachnoid hemorrhage neurology recommends neurosurgery evaluation. I did discuss with neurosurgery and admitting service at [facility]. Patient was not accepted at this time. Critical care team was consulted for possible ICU transfer and continued neuro checks. Laboratory showed sodium 136 potassium 3.3 chloride 101 bicarb is 19 BUN 18 and creatinine 1.01 Current medications reviewed. Objective - Vital Signs Vital signs: Vital Signs Temp 97.6 F 02/16/21 20:00 Pulse 56 L 02/16/21 20:00 Resp 14 02/16/21 20:00 BP 132/87 02/16/21 20:00 Pulse Ox 97 02/16/21 20:00 Intake & Output 02/16/21 02/16/21 02/17/21 06:59 18:59 06:59 Intake Total 920 250 Output Total 1125 575 175 Balance -1125 345 75 Weight 60.5 kg Intake: IV 845 150 Invasive Line 4 20 Sodium Chloride 0.9% 1, 675 150 000 ml @ 75 mls/hr IV . [id number] [facility] Rx#:[id number] cefTRIAXone 2 gm In 50 Sodium Chloride 0.9% 50 ml @ 100 mls/hr IVPB Q24HR [facility] Rx#:[id number] levETIRAcetam IV 1,000 mg 100 In Saline 1 100ml.bag @ 400 mls/hr IVPB Q12HR [facility] Rx#:[id number] Intake, IV Titration 75 100 Amount Sodium Chloride 0.9% 1, 75 000 ml @ 75 mls/hr IV . [id number] [facility] Rx#:[id number] levETIRAcetam IV 1,000 mg 100 In Saline 1 100ml.bag @ 400 mls/hr IVPB Q12HR [facility] Rx#:[id number] Oral 0 Output: Urine 1125 575 175 Other: Voiding Method Indwelling Catheter Indwelling Catheter Indwelling Catheter - Exam -GENERAL: The patient is confused, patient keeps moving while in bed, not in any acute distress. Well developed, well nourished. -HEENT: Pupils are round and equally reacting to light. EOMI. No scleral icterus. No conjunctival pallor. Normocephalic, atraumatic. No pharyngeal erythema. No thyromegaly. Ecchymosis around both eyes CARDIOVASCULAR: S1 and S2 present. No murmurs, rubs, or gallops. PULMONARY: Chest is clear to auscultation, no wheezing or crackles. ABDOMEN: Soft, nontender, nondistended, normoactive bowel sounds. No palpable organomegaly. MUSCULOSKELETAL: No joint swelling or deformity. EXTREMITIES: No cyanosis, clubbing, or pedal edema. -NEUROLOGICAL: Examination is limited by patient mental status changes. Patient moves both upper and lower extremities symmetrically. SKIN: No rashes. No petechiae - Labs CBC & Chem 7: 02/15/21 07:58 02/16/21 17:01 Labs: Abnormal Lab Results - Last 24 Hours (Table) 02/16/21 Range/Units 10:04 Sodium 136 L (137-145) mmol/L Potassium 3.3 L (3.5-5.1) mmol/L Chloride 111 H (98-107) mmol/L Carbon Dioxide 19 L (22-30) mmol/L Total Protein 5.5 L (6.3-8.2) g/dL Albumin 3.1 L (3.5-5.0) g/dL Microbiology - Last 24 Hours (Table) 02/14/21 10:36 Blood Culture - Preliminary Blood No Growth after 48 hours Assessment and Plan Assessment: Subarachnoid hemorrhage due to fall at home. Altered mental status, ruled out intracranial lesions. Possible metabolic encephalopathy.Patient is more awake and oriented at this time. Breakthrough seizure suspected Left lower quadrant tenderness Nasal bone fracture Left forehead hematoma Patient with mild tachypnea and leukocytosis Acute kidney injury, present on admission. Improving Hypertension Chronic kidney disease stage III Hyperlipidemia History of GERD History of left side hemorrhagic stroke with right hemiparesis with periods of irritable and agitation History of depression and suicidal ideation History of left pneumothorax status post chest tube Plan: Pt. is a pleasant 55 years old male who presents with breakthrough seizure Ativan as needed Currently on Keppra 1000 twice a day. Continued on Lamictal home dose of Neurology is following ENT and surgery consulted for trauma and broken nasal bone Anticoagulation including heparin and aspirin on hold. Patient is a started empirically on ceftriaxone. Follow-up calcitonin. Blood culture, sent urine in analysis labs and meds were reviewed. Monitor lytes and vitals. DVT and GI prophylaxis. DVT prophylaxis: Subcutaneous heparin GI Prophylaxis: Pepcid Prognosis is guarded Time with Patient: Greater than 30
[2021-02-17 04:24] LABS: Basophils # (A) 0.1 k/uL (0-0.2); Basophils % (A) 1 %; Eosinophils # (A) 0.3 k/uL (0-0.7); Eosinophils % (A) 6 %; HCT 34.6 % (39.0-53.0); Lymphocytes # (A) 1.6 k/uL (1.0-4.8); Lymphocytes % (A) 29 %; MCH 32.8 pg (25.0-35.0); MCHC 34.8 g/dL (31.0-37.0); MCV 94.4 fL (80.0-100.0); Mean Platelet Volume 7.7; Monocytes # (A) 0.5 k/uL (0-1.0); Monocytes % (A) 9 %; Neutrophils % (A) 54 %; Platelet Count 262 k/uL (150-450); RBC 3.67 m/uL (4.30-5.90); RDW 12.1 % (11.5-15.5); WBC 5.5 k/uL (3.8-10.6)
[2021-02-17 04:30] LABS: African American GFR (CKD) >90 (>60 ml/min/1.73 sqM); Anion Gap 6 mmol/L; Blood Urea Nitrogen 16 mg/dL (9-20); Calcium 8.6 mg/dL (8.4-10.2); Carbon Dioxide 18 mmol/L (22-30); Chloride 110 mmol/L (98-107); Glucose 110 mg/dL (74-99); Non-African American GFR(CKD) 81 (>60 ml/min/1.73 sqM); Potassium 3.5 mmol/L (3.5-5.1); Sodium 134 mmol/L (137-145)
[2021-02-17] MEDS: ACETAMINOPHEN TAB 325 MG TAB PO PRN (05:01)
[2021-02-17] MEDS: POTASSIUM CHLORIDE ER 20 MEQ TAB.ER PO SCH ×2 (05:04→07:08)
[2021-02-17] MEDS: SODIUM CHLORIDE 0.9% 1,000 ML IV SCH ×2 (05:04→15:30)
[2021-02-17] MEDS: carvediloL 12.5 MG TAB PO SCH ×2 (07:08→19:13)
[2021-02-17] MEDS: lamoTRIgine 100 MG TAB PO SCH ×2 (08:41→22:04)
[2021-02-17] MEDS: amLODIPine 5 MG TAB PO SCH (08:41)
[2021-02-17] MEDS: TAMSULOSIN 0.4 MG CAP.ER.24H PO SCH (08:41)
[2021-02-17] MEDS: VALSARTAN 160 MG TAB PO SCH (08:41)
[2021-02-17] MEDS: CITALOPRAM HYDROBROMIDE 20 MG TAB PO SCH (08:41)
[2021-02-17] MEDS: ZONISAMIDE 100 MG CAP PO SCH ×2 (08:42→22:05)
[2021-02-17] MEDS: lamoTRIgine 25 MG TAB PO SCH ×2 (08:47→22:04)
--- NOTE | 2021-02-17 09:05 | P.PN ---
Subjective Progress Note Date: 02/17/21 This is a 55-year-old male patient who got transferred to the intensive care unit for monitoring of the mental status. The patient was hospitalized on 02/14/2021. 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 The patient arrived to the hospital as the patient was found to be unresponsive and he was noted to have some blood on his face. The patient was found face down in the kitchen and he was unresponsive during transport to the hospital. His vitals were stable. Workup that was done in the maintenance department showed a white second of 16.6 remote over 15.4. Normal correlation profile. Normal platelet c ount. Creatinine of 2.6 with a mean of 41. Normal LFTs. Normal ammonia level. Normal CPK level. Troponins were negative. Alcohol was negative. Overnight the testing was negative. The patient's Vimpat level was 5.8 which is subtherapeutic knowing that he has history of seizures. CAT scan of the brain was done that showed no acute infection or abnormalities. The patient had a left-sided ethmoid sinusitis. No fractures. CAT scan of the facial bones revealed some nose bone fracture. The patient also had a left-sided frontal scalp hematoma and some left orbital soft tissue swelling. He was unable to provide any history. Seizure was suspected. Post ictal state was suspected. Apparently his last seizure was around 2 weeks ago for which she was hospitalized for several days. He had broken his eye socket with that seizure. Based on the history, the patient continues to have episodes where he stands his face on the floor with the seizures. No history of any drug noncompliance.. Apparently he developed seizure disorder following his hemorrhagic stroke approximately 5 years ago. During the hospital stay, the patient had some recovery in his mentation. He appeared much more alert and awake on subsequent follow-ups. A repeat CAT scan of the brain that was done on 02/15/2021 showed a new left subarachnoid hemorrhage and there was also demonstration of the left greater than right scalp hematoma. For that reason, the patient got transferred to the ICU for further monitoring and the patient is ultimately going to be transferred to neurology service at [facility]. The patient is currently on IV Keppra for seizures. The patient is also on Lamictal. His renal function is normalized. He was started on IV Rocephin for a possibility of an underlying urine checked infection. Urine injection was positive for tricyclics and benzodiazepines. His pro-calcitonin level is at 0.1. His white cell count is down to 9.6. 2 2020, the patient is occasionally confused. For the most part his communicating. He expressed wishes of going home yesterday. I think he was feeling gases. He was given a dose of Ativan at 0.5 mg an ECC much more comfortable today. He is moving all 4 extremities. He is weak and he has global generalized weakness in all 4 extremities. He denies having any headaches. He is able to swallow without any major difficulties. No seizure activity has been noted. The plan for today is to do an EEG and monitor his neuro status. He has a follow-up CAT scan of the head to be done tomorrow per neurology recommendations. In terms of his blood work, the patient has a serum bicarb of 18, sodium is at 134, white cell count is at 5.5 with a platelet of 262. Saenz catheter is still in place. No other significant events overnight otherwise. Objective - Vital Signs Vital signs: Vital Signs Temp 98.2 F 02/17/21 04:00 Pulse 64 02/17/21 07:00 Resp 14 02/17/21 07:00 BP 134/82 02/17/21 07:00 Pulse Ox 96 02/17/21 07:00 Intake & Output 02/16/21 02/17/21 02/17/21 18:59 06:59 18:59 Intake Total 920 1050 75 Output Total 575 975 150 Balance 345 75 -75 Weight 60.5 kg 80.3 kg Intake: IV 845 950 75 Invasive Line 4 20 Sodium Chloride 0.9% 1, 675 800 75 000 ml @ 75 mls/hr IV . [id number] [facility] Rx#:[id number] cefTRIAXone 2 gm In 50 150 Sodium Chloride 0.9% 50 ml @ 100 mls/hr IVPB Q24HR [facility] Rx#:[id number] levETIRAcetam IV 1,000 mg 100 In Saline 1 100ml.bag @ 400 mls/hr IVPB Q12HR [facility] Rx#:[id number] Intake, IV Titration 75 100 Amount Sodium Chloride 0.9% 1, 75 000 ml @ 75 mls/hr IV . [id number] [facility] Rx#:[id number] levETIRAcetam IV 1,000 mg 100 In Saline 1 100ml.bag @ 400 mls/hr IVPB Q12HR [facility] Rx#:[id number] Oral 0 Output: Urine 575 975 150 Other: Voiding Method Indwelling Catheter Indwelling Catheter # Bowel Movements 1 - Exam -GENERAL: The patient is awake and alert and following commands, not in any [place] distress. Well developed, well nourished. The patient has left orbital swelling and without evidence swelling, left more than right -HEENT: Pupils are round and equally reacting to light. EOMI. No scleral icterus. No conjunctival pallor. Normocephalic, atraumatic. No pharyngeal erythema. No thyromegaly. Ecchymosis around both eyes CARDIOVASCULAR: S1 and S2 present. No murmurs, rubs, or gallops. PULMONARY: Chest is clear to auscultation, no wheezing or crackles. ABDOMEN: Soft, nontender, nondistended, normoactive bowel sounds. No palpable organomegaly. MUSCULOSKELETAL: No joint swelling or deformity. EXTREMITIES: No cyanosis, clubbing, or pedal edema. -NEUROLOGICAL: Patient is still slightly drowsy, but much more awake, and follows commands. He has recall eyes. Left orbital swelling more than the right. Pupils are round and reacting. Visual callejas appears full, face is symmetric. Muscle strength is normal in the arms and legs. No ataxia. Sensations equal. SKIN: No rashes. No petechiae - Labs CBC & Chem 7: 02/17/21 03:32 02/17/21 03:32 Labs: Abnormal Lab Results - Last 24 Hours (Table) 02/16/21 02/17/21 02/17/21 Range/Units 10:04 03:32 03:32 RBC 3.67 L (4.30-5.90) m/uL Hgb 12.0 L (13.0-17.5) gm/dL Hct 34.6 L (39.0-53.0) % Sodium 136 L 134 L (137-145) mmol/L Potassium 3.3 L (3.5-5.1) mmol/L Chloride 111 H 110 H (98-107) mmol/L Carbon Dioxide 19 L 18 L (22-30) mmol/L Glucose 110 H (74-99) mg/dL Total Protein 5.5 L (6.3-8.2) g/dL Albumin 3.1 L (3.5-5.0) g/dL Microbiology - Last 24 Hours (Table) 02/14/21 10:36 Blood Culture - Preliminary Blood No Growth after 48 hours Assessment and Plan Plan: 1 new-onset left-sided subarachnoid hemorrhage, awaiting to be transferred to a neurology surgical Center at [facility]. This could be traumatic in nature. Neurologically stable. No headaches for now. The follow-up CAT scan of the brain will be done tomorrow. The patient was supposed to get transferred to [facility] for further neurologic evaluation. Apparently was able to be a nonsurgical case and the patient was accordingly kept here in our hospital. Neurologically stable for the past 24 hours. 2 history of seizure disorder. The patient has medical intractable epilepsy and the patient has been having frequent breakthrough seizure and the patient was postictal state at a time of admission, improved, and the patient is seizure free for now on a combination of antiepileptic medications. 3 altered mentation secondary to postictal state in addition to possibility of a brain concussion due to fall and trauma, improving 4 history of a hemorrhagic stroke involving the left parietal hemisphere with some right-sided weakness back in 2016 complicated by development of epilepsy 5 nasal bone fracture secondary to fall 6 hypertension 7 depression 8 history of smoking 9 acute kidney injury improving with fluid 10 hypertension 11 hyperlipidemia Plan Management of seizures and epilepsy per neurology. The patient is on Lamictal and zonisamide and IV Keppra. Neurochecks EEG today CT head tomorrow regarding the subarachnoid hemorrhage which is of a new onset Stop all form of anticoagulant including aspirin and heparin Seizure precautions IV fluids 75 cc/hr NSS IV Rocephin We'll continue to follow. The patient can be downgraded to a medical floor. The patient also can be sent to extended EEG monitoring at neurology lab
[2021-02-17] MEDS: levETIRAcetam IV 1,000 MG in SALINE 1 100ML.BAG IVPB SCH ×2 (09:15→22:05)
[2021-02-17] MEDS: LORazepam 2 MG/ML INJ IV PRN ×2 (13:04→22:05)
--- NOTE | 2021-02-17 14:33 | PN ---
PROGRESS NOTE Patient is seen for followup for acute kidney injury. Renal function has improved with IV hydration. The patient is currently resting comfortably. He is going down for repeat EEG. EXAMINATION: Today blood pressure is 135/79, heart rate 63 per minute. Patient is afebrile. Examination of the heart S1, S2. Examination of the lungs, bilateral breath sounds are heard. Abdomen is soft, nontender. Examination of lower extremities shows no significant edema. Patient has ecchymosis bilaterally on the face near the eyes. LAB: Show sodium 134, potassium 3.5, chloride 110, CO2 is 18, BUN 16, creatinine 1.0, hemoglobin 12.0 g/dL. ASSESSMENT: 1. Acute kidney injury, prerenal, currently improved with IV hydration. 2. Status post fall, nasal fracture and ecchymosis. 3. History of depression and agitation. 4. History of recent CVA with intracranial hemorrhage and right-sided weakness prior to admission. 5. Hypertension, blood pressure controlled. 6. Hypokalemia currently being replaced. PLAN: Continue IV fluids. Replace potassium. Continue with Diovan. MMODL / IJN: [id number] /
[2021-02-17 15:15] VITALS: BMI 26.9
--- NOTE | 2021-02-17 16:03 | EEG ---
ELECTROENCEPHALOGRAM REPORT DATE OF SERVICE: 02/17/2021 PREAMBLE: This is a 55-year-old male with a seizure, fall. This study is performed to evaluate for any epileptiform activity. EEG FINDINGS THIS: This is a 21-channel digital EEG recorded with video competent, utilizing 10/20 international system with referential and bipolar montages. Background consists of moderately well developed but poorly regulated, predominantly 6-7 hertz moderate amplitude theta, seen in bihemispheric region. Background does not seem to be reactive to eye opening or closing. Photic driving response was not seen. Different stages of sleep were not seen. This study was intended for 2-1/2 hours, but after 37 minutes, patient declined further continuation of the study. Different stages of sleep were not seen. No focal or generalized epileptiform activity was seen. Frequent myogenic artifact was also seen. IMPRESSION: This is an abnormal EEG due to background slowing of moderate degree. This is suggestive of generalized cerebral dysfunction as can be seen with toxic metabolic encephalopathy or related to diffuse structural brain abnormality. No epileptiform activity was seen. MMODL / IJN: [id number] / [facility]OSPITALJudah
--- NOTE | 2021-02-17 16:16 | P.PN ---
Subjective Progress Note Date: 02/17/21 Patient was seen for a follow-up. Patient was asleep, when I came to see the patient. He did wake up, answer appropriately, but was still groggy, possibly mildly encephalopathic. Patient however denies headache or any visual symptoms. Denies any new numbness tingling. Patient is laying comfortably in the bed. Patient states that he was taking aspirin for headaches, does not have any cardiac issues. Objective - Vital Signs Vital signs: Vital Signs Temp 98.5 F 02/17/21 15:22 Pulse 67 02/17/21 15:22 Resp 16 02/17/21 15:22 BP 140/76 02/17/21 15:22 Pulse Ox 96 02/17/21 15:22 Intake & Output 02/16/21 02/17/21 02/17/21 18:59 06:59 18:59 Intake Total 920 1050 690 Output Total 058 740 5313 Balance 345 75 -1210 Weight 60.5 kg 80.3 kg 80.3 kg Intake: IV 845 950 450 Invasive Line 4 20 Sodium Chloride 0.9% 1, 675 800 450 000 ml @ 75 mls/hr IV . [id number] [facility] Rx#:[id number] cefTRIAXone 2 gm In 50 150 Sodium Chloride 0.9% 50 ml @ 100 mls/hr IVPB Q24HR [facility] Rx#:[id number] levETIRAcetam IV 1,000 mg 100 In Saline 1 100ml.bag @ 400 mls/hr IVPB Q12HR [facility] Rx#:[id number] Intake, IV Titration 75 100 Amount Sodium Chloride 0.9% 1, 75 000 ml @ 75 mls/hr IV . [id number] [facility] Rx#:[id number] levETIRAcetam IV 1,000 mg 100 In Saline 1 100ml.bag @ 400 mls/hr IVPB Q12HR [facility] Rx#:[id number] Oral 0 240 Output: Urine 535 495 6293 Other: Voiding Method Indwelling Catheter Indwelling Catheter Indwelling Catheter # Bowel Movements 1 - Exam Patient was asleep, when he woke up, was groggy. Speech and language functions appears normal. Pupils are round and reacting, visual callejas are full, face is symmetric and tongue protrudes to the midline. On muscle strength testing (right/left) deltoid 4/5, biceps 5-/5, triceps 5/5, fire inspector 5-/5 minus. In the lower limbs hip flexion is 4+, ankles are normal. Patient has very tender right big toe and metatarsal. Sensations are equal. No ataxia. - Labs CBC & Chem 7: 02/17/21 03:32 02/17/21 03:32 Labs: Abnormal Lab Results - Last 24 Hours (Table) 02/17/21 02/17/21 Range/Units 03:32 03:32 RBC 3.67 L (4.30-5.90) m/uL Hgb 12.0 L (13.0-17.5) gm/dL Hct 34.6 L (39.0-53.0) % Sodium 134 L (137-145) mmol/L Chloride 110 H (98-107) mmol/L Carbon Dioxide 18 L (22-30) mmol/L Glucose 110 H (74-99) mg/dL Microbiology - Last 24 Hours (Table) 02/14/21 10:36 Blood Culture - Preliminary Blood No Growth after 72 hours Assessment and Plan Assessment: * Seizure disorder, probable medically intractable post stroke epilepsy. Patient came with breakthrough seizure with prolonged postictal state. * Breakthrough seizure, unclear etiology. Apparently based upon report from patient's girlfriend and patient's pharmacist, he is taking medication regular ly. Patient's seizure medications levels are therapeutic. * Altered mental status, encephalopathy, probably due to postictal state, concussion, now improved. * Right subdural hematoma along the tentorium, left parietal subarachnoid hemorrhage, likely traumatic, due to seizure/fall. * Nasal bone fracture, due to the fall from seizure. * History of left parietal hemorrhagic stroke in 2015 with residual mild right hemiparesis * History of tobacco use, still smokes 2 packs per day. * Hypertension * Depression. Plan: * Patient could not be transferred to higher level of care, either unavailability of the bed, or declined transfer related to nonsurgical subdural/subarachnoid hemorrhages. * We will repeat computed tomography scan of the head to follow-up on subarac hnoid hemorrhage and subdural hematoma. * CTA of head and neck, rule out aneurysm, rule out dissection. * X-ray of the right foot, possible fracture of the big toe or first metatarsal bone. * Lamictal level 7.7 (2-15), zonisamide level 22 (10-40). Both are in therapeutic range. * Patient was sent for prolonged EEG for 2.5 hours recording to the EEG lab. Patient's EEG was started, but after 37 minutes of recording, he wanted to quit. It revealed background slowing of moderate degree, suggestive of generalized cerebral dysfunction as can be seen with toxic metabolic encephalopathy or due to diffuse structural brain abnormality. No epileptiform activity was seen. * Continue seizure medications including Lamictal 225 mg twice a day and zonisamide 200 mg twice a day. * Patient may benefit from prolonged EEG monitoring at epilepsy monitoring unit for further evaluation of medically intractable epilepsy. * stay heparin and aspirin. * Patient on SCDs for DVT prophylaxis.
--- NOTE | 2021-02-17 16:52 | XR ---
EXAMINATION TYPE: XR foot complete RT DATE OF EXAM: 02/17/2021 CLINICAL HISTORY: Pain and swelling after seizure injury. TECHNIQUE: Frontal, lateral, and oblique images of the right foot are obtained. COMPARISON: None FINDINGS: There is osseous overlap first interphalangeal joint on frontal and oblique images. This i s suboptimally evaluated on lateral view due to osseous overlap. It appears grossly within normal heredia its on lateral view. Cannot exclude subluxation or dislocation at this level on frontal and oblique i mages. No acute fracture in the right foot clearly seen. Small calcifications distal Achilles tendon near its calcaneal insertion. The overlying soft tissue appears unremarkable. IMPRESSION: As above.
--- NOTE | 2021-02-17 18:19 | CT ---
EXAMINATION: CT brain wo con DATE AND TIME: 02/17/2021 5:49 PM CLINICAL INDICATION: PHH; Follow-up subarachnoid hemorrhage, subdural hemato TECHNIQUE: Standard departmental protocol Dose: 1102.8 mGy-cm COMPARISON: CT brain without contrast 02/15/2021 FINDINGS: The previously seen abnormalities, including the right tentorial and left central sulcus hyperdensiti es are redemonstrated. There are stable appearance, with no interval change. There are no new proces ses. There is no intracranial mass or mass effect. No definite new intra-axial or extra-axial attenua tion defect. Except for the previously seen right nasal bone fracture, the skeletal structures are otherwise intac t. Except for the left middle and posterior ethmoid sinus air cells, which are completely opacified as s een on the prior study, the remainder of the paranasal sinuses, middle ear cavities, and mastoid sinu s air cells are clear. Orbits are unremarkable. IMPRESSION: Stable CT appearance.
--- NOTE | 2021-02-17 20:52 | CT ---
EXAMINATION TYPE: CT angio head neck DATE OF EXAM: 02/17/2021 HISTORY: Follow-up subarachnoid hemorrhage, subdural hematoma TECHNIQUE: Departmental protocol CT DLP: 697 mGycm. Automated Exposure Control for Dose Reduction was Utilized. COMPARISON: 05/15/2020 FINDINGS: NECK CTA: Bilateral carotid and vertebral arterial systems are widely patent, without dissection or focal steno sis or filling defect. NASCET criteria was used in interpretation of this exam. ? Other: No incidental extravascular neck findings. BRAIN CTA: The anterior and posterior arterial circulation are widely patent, without aneurysm or focal stenosis or filling defect or dissection. Other: No incidental extravascular intracranial findings. IMPRESSION: No acute process.
[2021-02-17] MEDS: FAMOTIDINE 20 MG TAB PO SCH (22:04)
[2021-02-17] MEDS: ATORVASTATIN 80 MG TAB PO SCH (22:04)
[2021-02-18] MEDS: SODIUM CHLORIDE 0.9% 1,000 ML IV SCH (02:38)
[2021-02-18] MEDS: TAMSULOSIN 0.4 MG CAP.ER.24H PO SCH (08:17)
[2021-02-18] MEDS: lamoTRIgine 100 MG TAB PO SCH ×2 (08:17→20:14)
[2021-02-18] MEDS: VALSARTAN 160 MG TAB PO SCH (08:17)
[2021-02-18] MEDS: lamoTRIgine 25 MG TAB PO SCH ×2 (08:17→20:14)
[2021-02-18] MEDS: carvediloL 12.5 MG TAB PO SCH ×2 (08:17→18:10)
[2021-02-18] MEDS: CITALOPRAM HYDROBROMIDE 20 MG TAB PO SCH (08:17)
[2021-02-18] MEDS: amLODIPine 5 MG TAB PO SCH (08:17)
[2021-02-18] MEDS: LORazepam 2 MG/ML INJ IV PRN ×2 (08:18→18:10)
[2021-02-18] MEDS: ZONISAMIDE 100 MG CAP PO SCH ×2 (08:18→20:14)
[2021-02-18] MEDS: levETIRAcetam IV 1,000 MG in SALINE 1 100ML.BAG IVPB SCH (09:14)
--- NOTE | 2021-02-18 12:44 | P.PN ---
Subjective Progress Note Date: 02/18/21 This is a 55-year-old male patient who got transferred to the intensive care unit for monitoring of the mental status. The patient was hospitalized on 02/14/2021. 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 The patient arrived to the hospital as the patient was found to be unresponsive and he was noted to have some blood on his face. The patient was found face down in the kitchen and he was unresponsive during transport to the hospital. His vitals were stable. Workup that was done in the maintenance department showed a white second of 16.6 remote over 15.4. Normal correlation profile. Normal platelet count. Creatinine of 2.6 with a mean of 41. Normal LFTs. Normal ammonia level. Normal CPK level. Troponins were negative. Alcohol was negative. Overnight the testing was negative. The patient's Vimpat level was 5.8 which is subtherapeutic knowing that he has history of seizures. CAT scan of the brain was done that showed no acute infection or abnormalities. The patient had a left-sided ethmoid sinusitis. No fractures. CAT scan of the facial bones revealed some nose bone fracture. The patient also had a left-sided frontal scalp hematoma and some left orbital soft tissue swelling. He was unable to provide any history. Seizure was suspected. Post ictal state was suspected. Apparently his last seizure was around 2 weeks ago for which she was hospitalized for several days. He had broken his eye socket with that seizure. Based on the history, the patient continues to have episodes where he stands his face on the floor with the seizures. No history of any drug noncompliance.. Apparently he developed seizure disorder following his hemorrhagic stroke approximately 5 years ago. During the hospital stay, the patient had some recovery in his mentation. He appeared much more alert and awake on subsequent follow-ups. A repeat CAT scan of the brain that was done on 02/15/2021 showed a new left subarachnoid hemorrhage and there was also demonstration of the left greater than right scalp hematoma. For that reason, the patient got transferred to the ICU for further monitoring and the patient is ultimately going to be transferred to neurology service at [facility]. The patient is currently on IV Keppra for seizures. The patient is also on Lamictal. His renal function is normalized. He was started on IV Rocephin for a possibility of an underlying urine checked infection. Urine injection was positive for tricyclics and benzodiazepines. His pro-calcitonin level is at 0.1. His white cell count is down to 9.6. 02 17 2021, the patient is occasionally confused. For the most part his communicating. He expressed wishes of going home yesterday. I think he was feeling gases. He was given a dose of Ativan at 0.5 mg an ECC much more comfortable today. He is moving all 4 extremities. He is weak and he has global generalized weakness in all 4 extremities. He denies having any headaches. He is able to swallow without any major difficulties. No seizure activity has been noted. The plan for today is to do an EEG and monitor his neuro status. He has a follow-up CAT scan of the head to be done tomorrow per neurology recommendations. In terms of his blood work, the patient has a serum bicarb of 18, sodium is at 134, white cell count is at 5.5 with a platelet of 262. Saenz catheter is still in place. No other significant events overnight otherwise. The patient is seen today 02/18/2021 in follow-up on the regular medical floor. He is currently resting in bed. Arousable. He continues to be quite weak with generalized weakness in all 4 extremities. EEG revealed an abnormal background slowing of moderate degree. Suggestive of generalized cerebral dysfunction is seen with toxic metabolic encephalopathy or diffuse structural brain abn ormality. No epileptiform activity was seen. Computed tomography scan of the brain revealed previously seen abnormalities including right tentorial and left central sulcus hyperdensities. There is stable appearance with no interval change. No new processes seen. Previously seen right nasal bone fracture. CT angiogram revealed widely patent bilateral carotid and vertebral arteries. No dissection or focal stenosis. CT angiogram of the brain revealed anterior and posterior arterial circulation widely patent without aneurysm or focal stenosis, filling defect or dissection. No acute process. Cultures reveal no growth. No labs today. He is continued on ceftriaxone and anticonvulsants. 0.9 normal saline at 75 ML's per hour. Objective - Vital Signs Vital signs: Vital Signs Temp 97.8 F 02/18/21 07:20 Pulse 60 02/18/21 07:20 Resp 18 02/18/21 07:20 BP 158/85 02/18/21 07:20 Pulse Ox 96 02/18/21 07:50 Intake & Output 02/17/21 02/18/21 02/18/21 18:59 06:59 18:59 Intake Total 765 1975 Output Total 2500 1800 Balance -1735 175 Weight 80.3 kg 77 kg Intake: IV 525 375 Sodium Chloride 0.9% 1, 525 375 000 ml @ 75 mls/hr IV . [id number] PRISCILA Rx#:[id number] Intake, IV Titration 900 Amount Sodium Chloride 0.9% 1, 900 000 ml @ 75 mls/hr IV . [id number] PRISCILA Rx#:[id number] Oral 240 700 Output: Urine 2500 1800 Other: Voiding Method Indwelling Catheter Indwelling Catheter Indwelling Catheter # Bowel Movements 1 1 - Exam -GENERAL: The patient is awake and alert and following commands, not in any acute distress. Well developed, well nourished. The patient has left orbital swelling and without evidence swelling, left more than right -HEENT: Pupils are round and equally reacting to light. EOMI. No scleral icterus. No conjunctival pallor. Normocephalic, atraumatic. No pharyngeal erythema. No thyromegaly. Ecchymosis around both eyes CARDIOVASCULAR: S1 and S2 present. No murmurs, rubs, or gallops. PULMONARY: Chest is clear to auscultation, no wheezing or crackles. ABDOMEN: Soft, nontender, nondistended, normoactive bowel sounds. No palpable organomegaly. MUSCULOSKELETAL: No joint swelling or deformity. EXTREMITIES: No cyanosis, clubbing, or pedal edema. -NEUROLOGICAL: Patient is still slightly drowsy, but much more awake, and follows commands. He has recall eyes. Left orbital swelling more than the right. Pupils are round and reacting. Visual callejas appears full, face is symmetric. Muscle strength is normal in the arms and legs. No ataxia. Sensations equal. SKIN: No rashes. No petechiae - Labs CBC & Chem 7: 02/17/21 03:32 02/17/21 03:32 Labs: Microbiology - Last 24 Hours (Table) 02/14/21 10:36 Blood Culture - Preliminary Blood No Growth after 72 hours Assessment and Plan Assessment: 1 new-onset left-sided subarachnoid hemorrhage, awaiting to be transferred to a neurology surgical Center at [facility]. This could be traumatic in nature. Neurologically stable. No headaches for now. Follow up Computed tomography scan of the brain revealed previously seen abnormalities including ri ght tentorial and left central sulcus hyperdensities. There is stable appearance with no interval change. No new processes seen. Previously seen right nasal bone fracture. CT angiogram revealed widely patent bilateral carotid and vertebral arteries. No dissection or focal stenosis. CT angiogram of the brain revealed anterior and posterior arterial circulation widely patent without aneurysm or focal stenosis, filling defect or dissection. No acute process. The patient was supposed to get transferred to [facility] for further neurologic evaluation. Apparently was able to be a nonsurgical case and the patient was accordingly kept here in our hospital. Neurologically stable for the past 24 hours. 2 history of seizure disorder. The patient has medical intractable epilepsy and the patient has been having frequent breakthrough seizure and the patient was postictal state at a time of admission, improved, and the patient is seizure free for now on a combination of antiepileptic medications. 3 altered mentation secondary to postictal state in addition to possibility of a brain concussion due to fall and trauma, improving 4 history of a hemorrhagic stroke involving the left parietal hemisphere with some right-sided weakness back in 2016 complicated by development of epilepsy 5 nasal bone fracture secondary to fall 6 hypertension 7 depression 8 history of smoking 9 acute kidney injury improving with fluid 10 hypertension 11 hyperlipidemia Plan The patient was seen and evaluated today Computed tomography scan of the brain, EEG and CT angiogram reviewed Stable from the pulmonary and critical care standpoint We will see as needed
--- NOTE | 2021-02-18 18:04 | P.PN ---
Subjective Progress Note Date: 02/18/21 Patient was seen for a follow-up. Patient's mother was also present. Patient is much more alert and awake. Patient just wants to go home. Denies any new numbness tingling. Patient is laying comfortably in the bed. Patient states that he was taking aspirin for headaches, does not have any cardiac issues. Objective - Vital Signs Vital signs: Vital Signs Temp 98.4 F 02/18/21 13:00 Pulse 60 02/18/21 13:00 Resp 17 02/18/21 13:00 BP 113/74 02/18/21 13:00 Pulse Ox 96 02/18/21 13:00 Intake & Output 02/17/21 02/18/21 02/18/21 18:59 06:59 18:59 Intake Total 765 1975 Output Total 2500 1800 1000 Balance -1735 175 -1000 Weight 80.3 kg 77 kg Intake: IV 525 375 Sodium Chloride 0.9% 1, 525 375 000 ml @ 75 mls/hr IV . [id number] PRISCILA Rx#:[id number] Intake, IV Titration 900 Amount Sodium Chloride 0.9% 1, 900 000 ml @ 75 mls/hr IV . [id number] PRISCILA Rx#:[id number] Oral 240 700 Output: Urine 2500 1800 1000 Straight 1000 Other: Voiding Method Indwelling Catheter Indwelling Catheter Indwelling Catheter # Bowel Movements 1 1 - Exam Patient is still slightly groggy, but much more alert and awake. Speech and language functions appears normal. Pupils are round and reacting, visual callejas are full, face is symmetric and tongue protrudes to the midline. Periorbital swelling much improved. On muscle strength testing (right/left) deltoid 4/5, biceps 5-/5, triceps 5/5, credit adjuster 5-/5 minus. In the lower limbs hip flexion is 4+, ankles are normal. Patient has very tender right big toe and metatarsal. Sensations are equal. No ataxia. 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 Patient came with breakthrough seizure with a severe fall with prolonged postictal state. * Breakthrough seizure, unclear etiology. Apparently based upon report from patient's girlfriend and patient's pharmacist, he is taking medication regularly. Patient's seizure medications levels are therapeutic. * Altered mental status, encephalopathy, probably due to postictal state, concussion, now improved. * Right subdural hematoma along the tentorium, left parietal subarachnoid hemorrhage, likely traumatic, due to seizure/fall. * Nasal bone fracture, due to the fall from seizure. * History of left parietal hemorrhagic stroke in 2015 with residual mild right hemiparesis * History of tobacco use, still smokes 2 packs per day. * Hypertension * Depression. Plan: * Patient could not be transferred to higher level of care, either unavailability of the bed, or declined transfer related to nonsurgical s ubdural/subarachnoid hemorrhages. * CT head from 02/17/[address] appearance. The right subdural hematoma along the tentorium appears slightly less pronounced. The left sided subarachnoid hemorrhage remains unchanged. * CTA of head and neck, showed no aneurysm, dissection. * X-ray of the right foot showed osseous overlap, cannot rule out fracture. Suggest orthopedic consultation. * Lamictal level 7.7 (2-15), zonisamide level 22 (10-40). Both are in therapeutic range. * Stop Keppra, increase Lamictal to 250 mg twice a day. Continue same dose of zonisamide 200 mg twice a day. Patient states that he follows up with Dr. Lai. She had previously arranged him to go to [facility] for 5 days of inpatient video EEG monitoring, and was recommended above AED regimen. He was doing very well for quite some time but now started having breakthrough seizures. He has previously failed Keppra. I am not sure if he has ever tried Vimpat. * Patient was sent for prolonged EEG for 2.5 hours recording to the EEG lab. Patient's EEG was started, but after 37 minutes of recording, he wanted to quit. It revealed background slowing of moderate degree, suggestive of gener alized cerebral dysfunction as can be seen with toxic metabolic encephalopathy or due to diffuse structural brain abnormality. No epileptiform activity was seen. * stay off heparin and aspirin. * Patient on SCDs for DVT prophylaxis. * PT OT evaluate gait and for home safety. Otherwise patient may be a candidate for short-term rehab. * If patient is discharged, need to follow-up with his neurologist in 1 week, with pre-clinic CT head to follow-up on subdural hematoma and subarachnoid hemorrhage. * Dr. Jose Fernando Will resume neurology service from the morning.
[2021-02-18] MEDS: FAMOTIDINE 20 MG TAB PO SCH (20:14)
[2021-02-18] MEDS: ATORVASTATIN 80 MG TAB PO SCH (20:14)
[2021-02-19] MEDS: LORazepam 2 MG/ML INJ IV PRN ×4 (01:06→22:00)
[2021-02-19] MEDS: SODIUM CHLORIDE 0.9% 1,000 ML IV SCH ×2 (04:30→11:10)
[2021-02-19] MEDS: ZONISAMIDE 100 MG CAP PO SCH ×2 (11:12→20:20)
[2021-02-19] MEDS: lamoTRIgine 25 MG TAB PO SCH ×2 (11:13→20:19)
[2021-02-19] MEDS: VALSARTAN 160 MG TAB PO SCH (11:13)
[2021-02-19] MEDS: carvediloL 12.5 MG TAB PO SCH ×2 (11:17→16:37)
[2021-02-19] MEDS: amLODIPine 5 MG TAB PO SCH (11:18)
[2021-02-19] MEDS: CITALOPRAM HYDROBROMIDE 20 MG TAB PO SCH (11:18)
[2021-02-19] MEDS: TAMSULOSIN 0.4 MG CAP.ER.24H PO SCH (11:19)
[2021-02-19] MEDS: lamoTRIgine 100 MG TAB PO SCH ×2 (11:19→20:19)
--- NOTE | 2021-02-19 14:00 | PN ---
PROGRESS NOTE Patient is seen for followup for acute kidney injury, mostly prerenal. Renal function has improved now with IV hydration. Patient was admitted status post fall. His creatinine has improved significantly, down to 1.0 now from 2.6 on initial admission. Patient has been tolerating oral intake. He is maintained on IV fluids at 75 mL/hour. On examination today, blood pressure 131/76, heart rate 62 per minute. He is afebrile. EXAMINATION OF THE HEART: S1 and S2. EXAMINATION OF LUNGS: Bilateral breath sounds are heard. Abdomen is soft, non-tender. Examination of lower extremities shows no evidence of edema. KENO MANAGER EXAM: Grossly intact. Ecchymoses on bilateral eyes are now improved. Labs show sodium 135, potassium 3.5, chloride 110, CO2 is 18, BUN 16, creatinine 1.03, hemoglobin 12.0. ASSESSMENT: 1. Acute kidney injury, prerenal, currently improved. 2. Hypokalemia, status post replacement. 3. Status post fall, nasal fractures, bilateral ecchymosis on the eyes, currently improved. 4. History of recent cerebrovascular accident. 5. New left-sided subarachnoid hemorrhage, being followed by Neurology. PLAN: Continue to encourage increased oral intake. Will sign off. MMODL / IJN: [id number] /
--- NOTE | 2021-02-19 15:52 | P.PN ---
Subjective Progress Note Date: 02/17/21 Principal diagnosis: Altered mental status due to toxic metabolic encephalopathy and postictal state. Status post fall and nasal bone fracture. This is a pleasant 55 years old male with past medical history of CVA/TIA, GERD/Reflux, Hyperlipidemia, Hypertension, Seizure Disorder, L hemorrhagic stroke-R sided weakness and has had occasions of increased i rritability/agitation/isolation, multiple mental health unit admissions with most recent on 10/24/18 [facility] with major depression/suicidal ideations without plan/acute anxiety, uncontrolled seizures, L pneumothorax with chest tube, migraines Patient is poor historian, he looks confused and agitated, hiccups moving his extremity, he has no attention span, he does not follow commands. Patient cannot provide information and they were obtained from the mother at bedside for most of her records. Mother she haven't seen him recently however she talked him Sunday. And then she got a call yesterday from his friends that they found him on the floor patient has ecchymosis around his both eyes, some swelling around his nose. He has tenderness in the left lower quadrant, patient does not allow me to touch this area Vitas looks stable, slightly tachypneic, blood pressure is slightly elevated 164/94. He has mild leukocytosis 15.9 K. INR is 0.9. Elevated creatinine 2.6, and down to baseline at 1.4, baseline is 1.2-1.5 Her enzymes not elevated. Troponin is negative less than 0.01 Salicylate less than 1, serum alcohol less than 10, Tylenol level less than 10. Coronavirus not detected. Chest x-ray: Slightly increased interstitial markings compared to old exam. No heart failure or pulmonary consolidation EKG showed normal sinus rhythm at 72 CT of the head showed no acute intracranial abnormality. Face CT: Left side frontal scalp hematoma and periorbital soft tissue swelling. Nasal bone fracture in Emergency room he was started on Unasyn and Keppra and IV fluids, currently he is on normal saline 75 mL/h he also received 2 L of NS 02/15/2021 Patient is currently lying in the bed. Patient is sleeping a lot and confused and drowsy. Patient's mother at bedside who is able to provide history. Otherwise patient denied any complaints of headache. No complaints of eye pain. CT head and cervical spine showed no acute intra-abdominal 3. There is a left- sided ethmoid sinusitis slightly increasing compared to well exam. Facial CT showed left-sided facial scalp hematoma and periorbital soft tissue swelling and nasal bone fracture. Repeat CT brain was ordered and neurology is on board. EEG showed background slowing of moderate degree suggestive of generalized cerebral dysfunction as seen in the toxic versus metabolic encephalopathy are due to diffuse structural brain abnormality or from postictal state. Chest x-ray showed improving interstitial which now has a normal appearance. Left basilar atelectasis versus early infiltrate correlate clinically. Laboratory data showed WBC 9.6 hemoglobin 12.4 and platelets 244 Sodium 140 potassium 3.4 chloride 113 BUN 31 and creatinine 1.17 and procalcitonin level is 0.10 patient is antibiotics involve ceftriaxone. 02/16/2021 Patient is currently lying in the bed. Awake alert and oriented. Denies any complaints of chest pain or shortness of. Patient has been afebrile. No headache or dizziness. Patient is being continued on seizure precautions and fall precautions. Patient had repeat CT head yesterday evening showed right-sided subdural hematoma as well as a left-sided subarachnoid hemorrhage are both related to fall at home. Patient also has nasal bone fracture with admission. Due to new finding of subarachnoid hemorrhage neurology recommends neurosurgery evaluation. I did discuss with neurosurgery and admitting service at [facility]. Patient was not accepted at this time. Critical care team was consulted for possible ICU transfer and continued neuro checks. Laboratory showed sodium 136 potassium 3.3 chloride 101 bicarb is 19 BUN 18 and creatinine 1.01 02-17 Patient is awake alert and but still confused. No complaints of headache or dizziness. Patient was given a dose of Ativan 0.5 mg due to anxiety. No complaints of chest pain or shortness of breath. No further seizure activity was noted. Repeat EEG is being done today. Laboratory data showed WBC 5.4 hemoglobin 12.0 and platelets 262, sodium 134 potassium 3.5 chloride 110 bicarb is 18 years 16 and creatinine 1[address] head showed stable appearance. Current medications reviewed. Objective - Vital Signs Vital signs: Vital Signs Temp 98.2 F 02/17/21 04:00 Pulse 63 02/17/21 11:00 Resp 12 02/17/21 11:00 BP 135/79 02/17/21 11:00 Pulse Ox 97 02/17/21 11:00 Intake & Output 02/16/21 02/17/21 02/17/21 18:59 06:59 18:59 Intake Total 920 1050 690 Output Total 607 515 9605 Balance 345 75 -710 Weight 60.5 kg 80.3 kg Intake: IV 845 950 450 Invasive Line 4 20 Sodium Chloride 0.9% 1, 675 800 450 000 ml @ 75 mls/hr IV . [id number] PRISCILA Rx#:[id number] cefTRIAXone 2 gm In 50 150 Sodium Chloride 0.9% 50 ml @ 100 mls/hr IVPB Q24HR PRISCILA Rx#:[id number] levETIRAcetam IV 1,000 mg 100 In Saline 1 100ml.bag @ 400 mls/hr IVPB Q12HR PRISCILA Rx#:[id number] Intake, IV Titration 75 100 Amount Sodium Chloride 0.9% 1, 75 000 ml @ 75 mls/hr IV . [id number] PRISCILA Rx#:[id number] levETIRAcetam IV 1,000 mg 100 In Saline 1 100ml.bag @ 400 mls/hr IVPB Q12HR PRISCILA Rx#:[id number] Oral 0 240 Output: Urine 817 286 3518 Other: Voiding Method Indwelling Catheter Indwelling Catheter Indwelling Catheter # Bowel Movements 1 - Exam -GENERAL: The patient is confused, patient keeps moving while in bed, not in any acute distress. Well developed, well nourished. -HEENT: Pupils are round and equally reacting to light. EOMI. No scleral icterus. No conjunctival pallor. Normocephalic, atraumatic. No pharyngeal erythema. No thyromegaly. Ecchymosis around both eyes CARDIOVASCULAR: S1 and S2 present. No murmurs, rubs, or gallops. PULMONARY: Chest is clear to auscultation, no wheezing or crackles. ABDOMEN: Soft, nontender, nondistended, normoactive bowel sounds. No palpable organomegaly. MUSCULOSKELETAL: No joint swelling or deformity. EXTREMITIES: No cyanosis, clubbing, or pedal edema. -NEUROLOGICAL: Examination is limited by patient mental status changes. Patient moves both upper and lower extremities symmetrically. SKIN: No rashes. No petechiae - Labs CBC & Chem 7: 02/17/21 03:32 02/17/21 03:32 Labs: Abnormal Lab Results - Last 24 Hours (Table) 02/17/21 02/17/21 Range/Units 03:32 03:32 RBC 3.67 L (4.30-5.90) m/uL Hgb 12.0 L (13.0-17.5) gm/dL Hct 34.6 L (39.0-53.0) % Sodium 134 L (137-145) mmol/L Chloride 110 H (98-107) mmol/L Carbon Dioxide 18 L (22-30) mmol/L Glucose 110 H (74-99) mg/dL Microbiology - Last 24 Hours (Table) 02/14/21 10:36 Blood Culture - Preliminary Blood No Growth after 72 hours Assessment and Plan Assessment: Subarachnoid hemorrhage due to fall at home. Repeat CT stable. Altered mental status, ruled out intracranial lesions. Possible metabolic encephalopathy.Patient is more awake and oriented at this time. Breakthrough seizure suspected Left lower quadrant tenderness Nasal bone fracture Left forehead hematoma Patient with mild tachypnea and leukocytosis Acute kidney injury, present on admission. Improving Hypertension Chronic kidney disease stage III Hyperlipidemia History of GERD History of left side hemorrhagic stroke with right hemiparesis with periods of irritable and agitation History of depression and suicidal ideation History of left pneumothorax status post chest tube Plan: Pt. is a pleasant 55 years old male who presents with breakthrough seizure Ativan as needed Currently on Keppra 1000 twice a day. Continued on Lamictal home dose of Neurology is following ENT and surgery consulted for trauma and broken nasal bone Anticoagulation including heparin and aspirin on hold. Patient is a started empirically on ceftriaxone. Follow-up calcitonin. Blood culture, sent urine in analysis labs and meds were reviewed. Monitor lytes and vitals. DVT and GI prophylaxis. DVT prophylaxis: Subcutaneous heparin GI Prophylaxis: Pepcid Prognosis is guarded. PTOT will be consulted.
--- NOTE | 2021-02-19 16:02 | P.PN ---
Subjective Progress Note Date: 02/18/21 Principal diagnosis: Altered mental status due to toxic metabolic encephalopathy and postictal state. Status post fall and nasal bone fracture. This is a pleasant 55 years old male with past medical history of CVA/TIA, GERD/Reflux, Hyperlipidemia, Hypertension, Seizure Disorder, L hemorrhagic stroke-R sided weakness and has had occasions of increased i rritability/agitation/isolation, multiple mental health unit admissions with most recent on 10/24/18 [facility] with major depression/suicidal ideations without plan/acute anxiety, uncontrolled seizures, L pneumothorax with chest tube, migraines Patient is poor historian, he looks confused and agitated, hiccups moving his extremity, he has no attention span, he does not follow commands. Patient cannot provide information and they were obtained from the mother at bedside for most of her records. Mother she haven't seen him recently however she talked him Sunday. And then she got a call yesterday from his friends that they found him on the floor patient has ecchymosis around his both eyes, some swelling around his nose. He has tenderness in the left lower quadrant, patient does not allow me to touch this area Vitas looks stable, slightly tachypneic, blood pressure is slightly elevated 164/94. He has mild leukocytosis 15.9 K. INR is 0.9. Elevated creatinine 2.6, and down to baseline at 1.4, baseline is 1.2-1.5 Her enzymes not elevated. Troponin is negative less than 0.01 Salicylate less than 1, serum alcohol less than 10, Tylenol level less than 10. Coronavirus not detected. Chest x-ray: Slightly increased interstitial markings compared to old exam. No heart failure or pulmonary consolidation EKG showed normal sinus rhythm at 72 CT of the head showed no acute intracranial abnormality. Face CT: Left side frontal scalp hematoma and periorbital soft tissue swelling. Nasal bone fracture in Emergency room he was started on Unasyn and Keppra and IV fluids, currently he is on normal saline 75 mL/h he also received 2 L of NS 02/15/2021 Patient is currently lying in the bed. Patient is sleeping a lot and confused and drowsy. Patient's mother at bedside who is able to provide history. Otherwise patient denied any complaints of headache. No complaints of eye pain. CT head and cervical spine showed no acute intra-abdominal 3. There is a left- sided ethmoid sinusitis slightly increasing compared to well exam. Facial CT showed left-sided facial scalp hematoma and periorbital soft tissue swelling and nasal bone fracture. Repeat CT brain was ordered and neurology is on board. EEG showed background slowing of moderate degree suggestive of generalized cerebral dysfunction as seen in the toxic versus metabolic encephalopathy are due to diffuse structural brain abnormality or from postictal state. Chest x-ray showed improving interstitial which now has a normal appearance. Left basilar atelectasis versus early infiltrate correlate clinically. Laboratory data showed WBC 9.6 hemoglobin 12.4 and platelets 244 Sodium 140 potassium 3.4 chloride 113 BUN 31 and creatinine 1.17 and procalcitonin level is 0.10 patient is antibiotics involve ceftriaxone. 02/16/2021 Patient is currently lying in the bed. Awake alert and oriented. Denies any complaints of chest pain or shortness of. Patient has been afebrile. No headache or dizziness. Patient is being continued on seizure precautions and fall precautions. Patient had repeat CT head yesterday evening showed right-sided subdural hematoma as well as a left-sided subarachnoid hemorrhage are both related to fall at home. Patient also has nasal bone fracture with admission. Due to new finding of subarachnoid hemorrhage neurology recommends neurosurgery evaluation. I did discuss with neurosurgery and admitting service at [facility]. Patient was not accepted at this time. Critical care team was consulted for possible ICU transfer and continued neuro checks. Laboratory showed sodium 136 potassium 3.3 chloride 101 bicarb is 19 BUN 18 and creatinine 1.01 12-2 21 Patient is awake alert and but still confused. No complaints of headache or dizziness. Patient was given a dose of Ativan 0.5 mg due to anxiety. No complaints of chest pain or shortness of breath. No further seizure activity was noted. Repeat EEG is being done today. Laboratory data showed WBC 5.4 hemoglobin 12.0 and platelets 262, sodium 134 potassium 3.5 chloride 110 bicarb is 18 years 16 and creatinine 1.[address] head showed stable appearance. 02/18/2021 Patient is currently lying in the bed awake alert and oriented. Still feels weak and could not get out of bed. PT OT will be consulted. X-ray of the right foot showed osseous overlap first interphalangeal joint on frontal and oblique images. It appears grossly within normal limits on W. Cannot exclude subluxation or dislocation at this level on frontal en darterectomies. Orthopedic surgery was consulted. Otherwise patient is being continued on lidocaine dose increased to 250 mg twice daily and continue zonisamide 200 mg twice a day. Keppra has been discontinued. Neurology is following. Patient wants to be discharged home. Discussed with the patient and his mother at bedside in detail. Current medications reviewed. Objective - Vital Signs Vital signs: Vital Signs Temp 98.6 F 02/18/21 20:50 Pulse 64 02/18/21 20:50 Resp 16 02/18/21 20:50 BP 163/84 02/18/21 20:50 Pulse Ox 98 02/18/21 20:50 Intake & Output 02/18/21 02/18/21 02/19/21 06:59 18:59 06:59 Intake Total 1975 1150 Output Total 1800 2000 Balance 175 -850 Weight 77 kg Intake: IV 375 600 Sodium Chloride 0.9% 1, 375 600 000 ml @ 75 mls/hr IV . [id number] PRISCILA Rx#:[id number] Intake, IV Titration 900 150 Amount Sodium Chloride 0.9% 1, 900 000 ml @ 75 mls/hr IV . [id number] PRISCILA Rx#:[id number] cefTRIAXone 2 gm In 50 Sodium Chloride 0.9% 50 ml @ 100 mls/hr IVPB Q24HR PRISC[facility]A Rx#:[id number] levETIRAcetam IV 1,000 mg 100 In Saline 1 100ml.bag @ 400 mls/hr IVPB Q12HR PRISCILA Rx#:[id number] Oral 700 400 Output: Urine 1800 2000 Straight 1000 Other: Voiding Method Indwelling Catheter Indwelling Catheter # Bowel Movements 1 - Exam -GENERAL: The patient is confused, patient keeps moving while in bed, not in any acute distress. Well developed, well nourished. -HEENT: Pupils are round and equally reacting to light. EOMI. No scleral icterus. No conjunctival pallor. Normocephalic, atraumatic. No pharyngeal erythema. No thyromegaly. Ecchymosis around both eyes CARDIOVASCULAR: S1 and S2 present. No murmurs, rubs, or gallops. PULMONARY: Chest is clear to auscultation, no wheezing or crackles. ABDOMEN: Soft, nontender, nondistended, normoactive bowel sounds. No palpable organomegaly. MUSCULOSKELETAL: No joint swelling or deformity. EXTREMITIES: No cyanosis, clubbing, or pedal edema. -NEUROLOGICAL: Examination is limited by patient mental status changes. Patient moves both upper and lower extremities symmetrically. SKIN: No rashes. No petechiae - Labs CBC & Chem 7: 02/17/21 03:32 02/17/21 03:32 Labs: Microbiology - Last 24 Hours (Table) 02/14/21 10:36 Blood Culture - Preliminary Blood No Growth after 96 hours Assessment and Plan Assessment: Subarachnoid hemorrhage due to fall at home. Repeat CT stable. Altered mental status, ruled out intracranial lesions. Possible metabolic encephalopathy.Patient is more awake and oriented at this time. Breakthrough seizure suspected Left lower quadrant tenderness Nasal bone fracture Left forehead hematoma Patient with mild tachypnea and leukocytosis Acute kidney injury, present on admission. Improving Hypertension Chronic kidney disease stage III Hyperlipidemia History of GERD History of left side hemorrhagic stroke with right hemiparesis with periods of irritable and agitation History of depression and suicidal ideation History of left pneumothorax status post chest tube Plan: Pt. is a pleasant 55 years old male who presents with breakthrough seizure. Repeat CT study showed normal appearance. Resolving subarachnoid hemorrhage. Patient could not be transferred to the [facility] for neurosurgical evaluation due to be done abnormality. Stop Keppra, increase Lamictal to 250 mg twice a day. Continue same dose of zonisamide 200 mg twice a day. Patient states that he follows up with Dr. Lai. ENT and surgery consulted for trauma and broken nasal bone . No surgical intervention recommended this time. Anticoagulation including heparin and aspirin on hold. Pain does not have any cardiac issues. labs and meds were reviewed. Monitor lytes and vitals. DVT and GI prophylaxis. DVT prophylaxis: Subcutaneous heparin GI Prophylaxis: Pepcid Prognosis is guarded. PTOT will be consulted. Patient may need rehab transfer. Time with Patient: Greater than 30
--- NOTE | 2021-02-19 16:28 | P.PN ---
Subjective Progress Note Date: 02/19/21 I am seeing the patient for the first time during this admission for neurological management. Please refer to Dr. Lancaster for further details. Per the patient's nurse, no further seizure overnight or today. Objective - Vital Signs Vital signs: Vital Signs Temp 97.7 F 02/19/21 12:46 Pulse 67 02/19/21 12:46 Resp 18 02/19/21 08:40 BP 136/72 02/19/21 12:46 Pulse Ox 97 02/19/21 12:46 Intake & Output 02/18/21 02/19/21 02/19/21 18:59 06:59 18:59 Intake Total 1150 Output Total 2000 3000 1600 Balance -850 -3000 -1600 Intake: IV 600 Sodium Chloride 0.9% 1, 600 000 ml @ 75 mls/hr IV . [id number] PRISCILA Rx#:[id number] Intake, IV Titration 150 Amount cefTRIAXone 2 gm In 50 Sodium Chloride 0.9% 50 ml @ 100 mls/hr IVPB Q24HR PRISCILA Rx#:[id number] levETIRAcetam IV 1,000 mg 100 In Saline 1 100ml.bag @ 400 mls/hr IVPB Q12HR PRISCILA Rx#:[id number] Oral 400 Output: Urine 2000 3000 1600 Straight 1000 Other: Voiding Method Indwelling Catheter Indwelling Catheter Indwelling Catheter # Voids 2 2 - Exam GENERAL: The patient is lying in bed and is not in acute distress. NEUROLOGICAL: Higher mental function: The patient is awake, alert, oriented to self, place and time. Patient is following commands. No aphasia and no neglect. Cranial nerves: The pupils are round, equal and reactive to light. Visual callejas are full to confrontation throughout. Has echymoses around his eyes. Extraocular movement is intact no nystagmus is noted. Facial sensation is normal to touch throughout. The facial strength is normal throughout. Tongue is midline and moved [id number] without any difficulty. No dysarthria is noted. Shoulder shrug is normal bilaterally. Motor: The strength is right forearm extension is 4+ while left forearm flexion is 4+ to 5-. Otherwise 5 over 5 throughout. Normal tone and bulk. Cerebellum: Normal finger to nose bilaterally. Sensation: Sensation is normal to touch throughout. 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 Patient came with breakthrough seizure with a severe fall with prolonged postictal state. * Breakthrough seizure, unclear etiology. Apparently based upon report from patient's girlfriend and patient's pharmacist, he is taking medication regularly. Patient's seizure medications levels are therapeutic. * Altered mental status, encephalopathy, probably due to postictal state, concussion, now improved. * Right subdural hematoma along the tentorium, left parietal subarachnoid hemorrhage, likely traumatic, due to seizure/fall. * Nasal bone fracture, due to the fall from seizure. * History of left fronto-parietal hemorrhagic stroke in 2014 with residual mild right hemiparesis * History of tobacco use, still smokes 2 packs per day. * Hypertension * Depression. Plan: * Patient could not be transferred to higher level of care, either unavailability of the bed, or declined transfer related to nonsurgical subdural/subarachnoid hemorrhages. * CT head from 02/17/[address] appearance. The right subdural hematoma along the tentorium appears slightly less pronounced. The left sided subarachnoid hemorrhage remains unchanged. * CTA of head and neck, showed no aneurysm, dissection. * X-ray of the right foot showed osseous overlap, cannot rule out fracture. Suggest orthopedic consultation. * Lamictal level 7.7 (2-15), zonisamide level 22 (10-40). Both are in therapeutic range. * Keppra was stopped during this admission, Dr. Lancaster increased Lamictal to 250 mg twice a day. Continue same dose of zonisamide 200 mg twice a day. Patient states that he follows up with Dr. Lai. She had previously arranged him to go to [facility] for 5 days of inpatient video EEG monitoring, and was recommended above AED regimen. He was doing very well for quite some time but now started having breakthrough seizures. He has previously failed Keppra. Personally saw the patient on 01/28/2021 and at that time and noted that the patient could not tight Keppra and possibly Vimpat in the past. * Patient was sent for prolonged EEG for 2.5 hours recording to the EEG lab. Patient's EEG was started, but after 37 minutes of recording, he wanted to quit. It revealed background slowing of moderate degree, suggestive of generalized cerebral dysfunction as can be seen with toxic metabolic encephalopathy or due to diffuse structural brain abnormality. No epilep tiform activity was seen. * stay off heparin and aspirin. * Patient on SCDs for DVT prophylaxis. * PT OT evaluate gait and for home safety. Otherwise patient may be a candidate for short-term rehab. * If patient is discharged, need to follow-up with his neurologist in 1 week, with pre-clinic CT head to follow-up on subdural hematoma and subarachnoid hemorrhage. * Commend the patient to follow-up with [facility] neurology team (especially since had Epilepsy monitoring unit) which will help to detect whether down line he is a surgical candidate for his seizure or only treatment with medication. Jose Fernando MD Neuro-Hospitalist Time with Patient: Less than 30
--- NOTE | 2021-02-19 17:06 | P.CNOR ---
History of Present Illness - [facility] Consult date: 02/19/21 Requesting physician: Shivani Durbin Consult reason: other (possible Fx of Right foot and ankle) History of present illness: Patient is a 55-year-old male who presents to the emergency department on 02/05/2021 after being found on the floor at home. Patient has a history of seizures. Patient was recently seen for similar complaints and issues. Patient has a past medical history of CVA/TIA and hypertension and hyperlipidemia. We are consult for possible right foot/ankle fracture. Patient was seen at bedside this morning resting comfortably sitting up in chair. nurse was present throughout the encounter in the room. Nurse did mention patient got up for the first time during this stay at the hospital this morning with assistance and a walker. Nurse did mention patient was little bit unsteady but was able to use a walker to get up from bed and get to the chair. Nurse mentions patient did not complain of any right foot/ankle pain while he was up. Patient mentions he is not having any right foot/ankle pain at this time. Throughout the encounter patient is plantar and dorsiflexion right ankle without pain. There is no evident swelling/erythema/ecchymosis on the right foot/ankle. Patient denies any other issues. Patient denies chest pain, fever, shortness breath, nausea, vomiting, change in vision, loss of bowel/bladder control. Past Medical History Past Medical History: CVA/TIA, GERD/Reflux, Hyperlipidemia, Hypertension, Pneumonia, Seizure Disorder Additional Past Medical History / Comment(s): L hemorrhagic stroke-R sided weakness and has had occasions of increased irritability/agitation/isolation, multiple mental health unit admissions with most recent on 10/24/18 [facility] with major depression/suicidal ideations without plan/acute anxiety, uncontrolled seizures, L pneumothorax with chest tube, migraines-has used other people's narcotics in the past per past medical record but pt denies, benign rectal polyp, etoh last drink more than 10 years ago. History of Any Multi-Drug Resistant Organisms: None Reported Past Surgical History: No Surgical Hx Reported Additional Past Surgical History / Comment(s): COLONOSCOPY POLYPS REMOVED-NEG, bilateral cataract removal, R testicular surgery as a little boy. Past Anesthesia/Blood Transfusion Reactions: No Reported Reaction Additional Past Anesthesia/Blood Transfusion Reaction / Comm: Pt has never recieved blood. Past Psychological History: Anxiety, Bipolar, Depression, Panic Disorder Smoking Status: Current every day smoker Past Alcohol Use History: None Reported Past Drug Use History: None Reported - Past Family History Father Family Medical History: Cancer, Hyperlipidemia, Hypertension, Prostate Disorder Additional Family Medical History / Comment(s): PROSTATE CA Mother Family Medical History: Osteoarthritis (OA) Additional Family Medical History / Comment(s): MOM IS 71 Medications and Allergies Home Medications Medication Instructions Recorded Confirmed Type Aspirin [Adult Low Dose Aspirin EC] 81 mg PO DAILY 10/24/18 02/13/21 History Atorvastatin [Lipitor] 80 mg PO HS 10/24/18 02/13/21 History Magnesium Oxide [Mag-Ox] 400 mg PO DAILY #28 tab 11/05/18 02/13/21 Rx Famotidine [Pepcid] 20 mg PO BID #60 tab 11/21/18 02/13/21 Rx Tamsulosin HCl [Flomax] 0.4 mg PO DAILY 12/24/19 02/13/21 History lamoTRIgine [LaMICtal] 200 mg PO BID tab 01/16/20 02/13/21 Rx Citalopram Hydrobromide [CeleXA] 40 mg PO DAILY 04/26/20 02/13/21 History QUEtiapine FUMARATE [SEROquel] 300 mg PO HS 04/26/20 02/13/21 History lamoTRIgine [LaMICtal] 25 mg PO BID #0 04/28/20 02/13/21 Rx Carvedilol [Coreg] 25 mg PO BID 05/15/20 02/13/21 History amLODIPine [Norvasc] 5 mg PO DAILY 05/15/20 02/13/21 History hydroCHLOROthiazide [Hydrodiuril] 25 mg PO DAILY 05/15/20 02/13/21 History Baclofen [Lioresal] 20 mg PO TID 01/25/21 02/13/21 History Valsartan/Hydrochlorothiazide 1 tab PO DAILY 01/25/21 02/13/21 History [Valsartan-Hctz 160-25 mg Tab] Zonisamide [Zonegran] 200 mg PO BID 01/25/21 02/13/21 History Thiamine [Vitamin B-1] 100 mg PO DAILY@1200 tab 01/28/21 02/13/21 Rx Multivitamins, Thera [Multivitamin 1 tab PO DAILY 02/13/21 02/13/21 History (formulary)] Allergies Allergy/AdvReac Type Severity Reaction Status Date / Time No Known Allergies Allergy Verified 02/13/21 14:07 Physical Examination focused - right foot/ankle inspection - scabs present over digits in right foot. Scab present over right lateral malleolus. Negative for any open fractures, erythema, ecchymoses. Sensation - sensation is equal, symmetric, bilaterally intact throughout lower extremities Palpation - nontender to palpation throughout the right foot and right ankle. Range of motion - patient has full range of motion of digits of right foot and extension flexion. Full range of motion in plantar and dorsiflexion right ankle without pain Motor - 4+/5 in resisted plantar/dorsiflexion of her ankle. Neurovascular - DP pulses intact, bilaterally, 2+. Cap refill below 3 seconds bilaterally and digits of feet Results - Labs Labs: Microbiology - Last 24 Hours (Table) 02/14/21 10:36 Blood Culture - Preliminary Blood No Growth after 96 hours H & H 02/13/21 02/14/21 02/15/21 Range/Units 13:37 05:54 07:58 Hgb 13.4 13.2 12.4 L (13.0-17.5) gm/dL Hct 38.6 L 39.3 35.3 L (39.0-53.0) % 02/17/21 Range/Units 03:32 Hgb 12.0 L (13.0-17.5) gm/dL Hct 34.6 L (39.0-53.0) % Coagulation 02/13/21 Range/Units 13:37 INR 0.9 (<1.2) Result Diagrams: 02/17/21 03:32 02/17/21 03:32 Assessment and Plan Assessment: 1. Right foot/ankle pain 2. History of seizures 3. Multiple medical comorbidities Plan: 1. Right foot/ankle pain - x-ray right foot has been reviewed and I did review the images with my attending, Dr. Brooks. X-rays negative for any fr actures. At this time we do not recommend any urgent/emergent orthopedic surgical intervention. Patient is able to ambulate on his own this morning getting up from bed and getting to chair using walker. Patient did not complain of any right foot/ankle plain throughout the encounter. Patient is stable from an orthopedic standpoint for discharge home. Orthopedics is signing off at this time. Please do not hesitate to contact us for any further questions. 2. Appreciate medical management 3. Pain Management - Tylenol 4. GI ppx - pepcid 5. PT/OT - WBAT w/walker and assistance 6. Appreciate consult Time with Patient: Less than 30
[2021-02-19] MEDS: FAMOTIDINE 20 MG TAB PO SCH (20:19)
[2021-02-19] MEDS: ATORVASTATIN 80 MG TAB PO SCH (20:19)
[2021-02-20] MEDS: SODIUM CHLORIDE 0.9% 1,000 ML IV SCH ×3 (03:32→21:42)
[2021-02-20] MEDS: LORazepam 2 MG/ML INJ IV PRN ×2 (03:52→20:15)
[2021-02-20] MEDS ORDERED: LORazepam 0.5 MG TAB PO ONE (09:06)
[2021-02-20] MEDS: lamoTRIgine 25 MG TAB PO SCH ×2 (09:09→20:08)
[2021-02-20] MEDS: lamoTRIgine 100 MG TAB PO SCH ×2 (09:09→20:07)
[2021-02-20] MEDS: TAMSULOSIN 0.4 MG CAP.ER.24H PO SCH (09:09)
[2021-02-20] MEDS: amLODIPine 5 MG TAB PO SCH (09:09)
[2021-02-20] MEDS: CITALOPRAM HYDROBROMIDE 20 MG TAB PO SCH (09:09)
[2021-02-20] MEDS: ZONISAMIDE 100 MG CAP PO SCH ×2 (09:10→20:48)
[2021-02-20] MEDS: VALSARTAN 160 MG TAB PO SCH (09:10)
[2021-02-20] MEDS: carvediloL 12.5 MG TAB PO SCH ×2 (09:12→18:07)
--- NOTE | 2021-02-20 15:45 | P.PN ---
Subjective Progress Note Date: 02/20/21 The patient is seen at bedside and feels he is doing well. No further seizures. He denies of any further neurological problems. He wants to go home today but his mother and girlfriend do not feel comfortable. Objective - Vital Signs Vital signs: Vital Signs Temp 98.1 F 02/20/21 11:41 Pulse 62 02/20/21 11:41 Resp 18 02/20/21 11:41 BP 111/70 02/20/21 11:41 Pulse Ox 95 02/20/21 11:41 Intake & Output 02/19/21 02/20/21 02/20/21 18:59 06:59 18:59 Intake Total 240 Output Total 1600 1000 Balance -1360 -1000 Intake: Oral 240 Output: Urine 1600 1000 Other: Voiding Method Indwelling Catheter Indwelling Catheter Toilet # Voids 1 5 - Exam GENERAL: The patient is lying in bed and is not in acute distress. NEUROLOGICAL: Higher mental function: The patient is awake, alert, oriented to self, place and time. Patient is following commands. No aphasia and no neglect. Cranial nerves: The pupils are round, equal and reactive to light. Visual callejas are full to confrontation throughout. Has echymoses around his eyes. Extraocular movement is intact no nystagmus is noted. Facial sensation is normal to touch throughout. The facial strength is normal throughout. Tongue is midline and moved [id number] without any difficulty. No dysarthria is noted. Shoulder shrug is normal bilaterally. Motor: The strength is right forearm extension is 4+ while left forearm flexion is 4+ to 5-. Otherwise 5 over 5 throughout. Normal tone and bulk. Cerebellum: Normal finger to nose bilaterally. Sensation: Sensation is normal to touch throughout. WORK-UP: * Patient was sent for prolonged EEG for 2.5 hours recording to the EEG lab. Patient's EEG was started, but after 37 minutes of recording, he wanted to quit. It revealed background slowing of moderate degree, suggestive of generalized cerebral dysfunction as can be seen with toxic metabolic encephalopathy or due to diffuse structural brain abnormality. No epileptiform activity was seen. * CT head from 02/17/[address] appearance. The right subdural hematoma along the tentorium appears slightly less pronounced. The left sided subarachnoid hemorrhage remains unchanged. * CTA of head and neck, showed no aneurysm, dissection. * X-ray of the right foot showed osseous overlap, cannot rule out fracture. * Lamictal level 7.7 (2-15), zonisamide level 22 (10-40). Both are in therapeutic range. 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 Patient came with breakthrough seizure with a severe fall with prolonged postictal state. * Breakthrough seizure, unclear etiology. Apparently based upon report from patient's girlfriend and patient's pharmacist, he is taking medication regularly. Patient's seizure medications levels are therapeutic. I feel patient has medical refractory seizure. * Altered mental status, encephalopathy, probably due to postictal state, concussion, now improved. * Right subdural hematoma along the tentorium, left parietal subarachnoid hemorrhage, likely traumatic, due to seizure/fall. * Nasal bone fracture, due to the fall from seizure. * History of left fronto-parietal hemorrhagic stroke in 2014 with residual mild right hemiparesis * History of tobacco use, still smokes 2 packs per day. * Hypertension * Depression. Plan: * Patient could not be transferred to higher level of care, either unavailabilit y of the bed, or declined transfer related to nonsurgical subdural/subarachnoid hemorrhages. * Keppra was stopped during this admission, Dr. Lancaster increased Lamictal to 250 mg twice a day. I will increase his zonisamide 200 mg twice a day to 250mg twice a day. Recommend patient to follow-up with his neurologist NATE to evaluate if his medications (antiepileptic drugs) needs to be modified further. * Patient states that he follows up with Dr. Lai. She had previously arranged him to go to [facility] for 5 days of inpatient video EEG monitoring, and was recommended above AED regimen. He was doing very well for quite some time but now started having breakthrough seizures. He has previously failed Keppra. Personally saw the patient on 01/28/2021 and at that time and noted that the patient could not tolerate Keppra and possibly Vimpat in the past. * I will get repeat CT head tomorrow AM. * stay off heparin and aspirin because of bleed. * Orthopedic team is on board * ENT team is on board * Patient on SCDs for DVT prophylaxis. * PT OT evaluate gait and for home safety. Otherwise patient may be a candidate for short-term rehab. * If patient is discharged, need to follow-up with his neurologist in 1 week, with pre-clinic CT head to follow-up on subdural hematoma and subarachnoid hemorrhage. * Commend the patient to follow-up with [facility] neurology team (especially since had Epilepsy monitoring unit) which will help to detect whether down line he is a surgical candidate for his seizure or only treatment with medication. * Per [place] DMV, patient was notified he cannot drive for 6 months until seizure free, to avoid height, heavy machinery or swim unassisted. The plan is discussed with patient and primary team. Jose Fernando MD Neuro-Hospitalist Time with Patient: Less than 30
[2021-02-20] MEDS: FAMOTIDINE 20 MG TAB PO SCH (20:07)
[2021-02-20] MEDS: ATORVASTATIN 80 MG TAB PO SCH (20:07)
[2021-02-20 20:11] VITALS: RESP 16
[2021-02-20] MEDS: ZONISAMIDE 25 MG CAP PO SCH (21:44)
--- NOTE | 2021-02-21 00:22 | P.PN ---
Subjective Progress Note Date: 02/20/21 Principal diagnosis: Altered mental status due to toxic metabolic encephalopathy and postictal state. Status post fall and nasal bone fracture. This is a pleasant 55 years old male with past medical history of CVA/TIA, GERD/Reflux, Hyperlipidemia, Hypertension, Seizure Disorder, L hemorrhagic stroke-R sided weakness and has had occasions of increased i rritability/agitation/isolation, multiple mental health unit admissions with most recent on 10/24/18 [facility] with major depression/suicidal ideations without plan/acute anxiety, uncontrolled seizures, L pneumothorax with chest tube, migraines Patient is poor historian, he looks confused and agitated, hiccups moving his extremity, he has no attention span, he does not follow commands. Patient cannot provide information and they were obtained from the mother at bedside for most of her records. Mother she haven't seen him recently however she talked him Sunday. And then she got a call yesterday from his friends that they found him on the floor patient has ecchymosis around his both eyes, some swelling around his nose. He has tenderness in the left lower quadrant, patient does not allow me to touch this area Vitas looks stable, slightly tachypneic, blood pressure is slightly elevated 164/94. He has mild leukocytosis 15.9 K. INR is 0.9. Elevated creatinine 2.6, and down to baseline at 1.4, baseline is 1.2-1.5 Her enzymes not elevated. Troponin is negative less than 0.01 Salicylate less than 1, serum alcohol less than 10, Tylenol level less than 10. Coronavirus not detected. Chest x-ray: Slightly increased interstitial markings compared to old exam. No heart failure or pulmonary consolidation EKG showed normal sinus rhythm at 72 CT of the head showed no acute intracranial abnormality. Face CT: Left side frontal scalp hematoma and periorbital soft tissue swelling. Nasal bone fracture in Emergency room he was started on Unasyn and Keppra and IV fluids, currently he is on normal saline 75 mL/h he also received 2 L of NS 02/15/2021 Patient is currently lying in the bed. Patient is sleeping a lot and confused and drowsy. Patient's mother at bedside who is able to provide history. Otherwise patient denied any complaints of headache. No complaints of eye pain. CT head and cervical spine showed no acute intra-abdominal 3. There is a left- sided ethmoid sinusitis slightly increasing compared to well exam. Facial CT showed left-sided facial scalp hematoma and periorbital soft tissue swelling and nasal bone fracture. Repeat CT brain was ordered and neurology is on board. EEG showed background slowing of moderate degree suggestive of generalized cerebral dysfunction as seen in the toxic versus metabolic encephalopathy are due to diffuse structural brain abnormality or from postictal state. Chest x-ray showed improving interstitial which now has a normal appearance. Left basilar atelectasis versus early infiltrate correlate clinically. Laboratory data showed WBC 9.6 hemoglobin 12.4 and platelets 244 Sodium 140 potassium 3.4 chloride 113 BUN 31 and creatinine 1.17 and procalcitonin level is 0.10 patient is antibiotics involve ceftriaxone. 02/16/2021 Patient is currently lying in the bed. Awake alert and oriented. Denies any complaints of chest pain or shortness of. Patient has been afebrile. No headache or dizziness. Patient is being continued on seizure precautions and fall precautions. Patient had repeat CT head yesterday evening showed right-sided subdural hematoma as well as a left-sided subarachnoid hemorrhage are both related to fall at home. Patient also has nasal bone fracture with admission. Due to new finding of subarachnoid hemorrhage neurology recommends neurosurgery evaluation. I did discuss with neurosurgery and admitting service at [facility]. Patient was not accepted at this time. Critical care team was consulted for possible ICU transfer and continued neuro checks. Laboratory showed sodium 136 potassium 3.3 chloride 101 bicarb is 19 BUN 18 and creatinine 1.01 12-2 21 Patient is awake alert and but still confused. No complaints of headache or dizziness. Patient was given a dose of Ativan 0.5 mg due to anxiety. No complaints of chest pain or shortness of breath. No further seizure activity was noted. Repeat EEG is being done today. Laboratory data showed WBC 5.4 hemoglobin 12.0 and platelets 262, sodium 134 potassium 3.5 chloride 110 bicarb is 18 years [address] creatinine [address] head showed stable appearance. 02/18/2021 Patient is currently lying in the bed awake alert and oriented. Still feels weak and could not get out of bed. PT OT will be consulted. X-ray of the right foot showed osseous overlap first interphalangeal joint on frontal and oblique images. It appears grossly within normal limits on W. Cannot exclude subluxation or dislocation at this level on frontal en darterectomies. Orthopedic surgery was consulted. Otherwise patient is being continued on lamictal dose increased to 250 mg twice daily and continue zonisamide 200 mg twice a day. Keppra has been discontinued. Neurology is following. Patient wants to be discharged home. Discussed with the patient and his mother at bedside in detail. 02/19/2021 Patient is currently resting in bed. Awake alert and oriented. Patient still weak and lethargic and unable to get out of bed. No episodes of follow-up seizures. Patient is being continued on Lamictal and zonisamide 200 mg twice a day. Neurology is on board. PT OT will be consulted and possible discharge to rehab versus home. Patient is tolerating oral diet. No complaints of headache. No nausea vomiting or abdominal pain. Patient did have involvement. No fever no chills. No further episodes of seizures. 02/20/2021 Patient is currently lying in the bed. Denied any complaints of further episodes of seizures. No chest pain. No nausea vomiting abdominal pain. No shortness breath. No fever or chills. Patient would like to go home. PT OT was consulted. Neurology is following. Zonisamide dose increased to 50 mg twice daily. Current medications reviewed. Objective - Vital Signs Vital signs: Vital Signs Temp 98 F 02/20/21 20:10 Pulse 62 02/20/21 20:10 Resp 16 02/20/21 20:10 BP 123/75 02/20/21 20:10 Pulse Ox 97 02/20/21 20:10 Intake & Output 02/20/21 02/20/21 02/21/21 06:59 18:59 06:59 Intake Total 240 Output Total 1000 800 Balance -1000 -560 Intake: Oral 240 Output: Urine 1000 800 Other: Voiding Method Indwelling Catheter Toilet # Voids 5 - Exam -GENERAL: The patient is confused, patient keeps moving while in bed, not in any acute distress. Well developed, well nourished. -HEENT: Pupils are round and equally reacting to light. EOMI. No scleral icterus. No conjunctival pallor. Normocephalic, atraumatic. No pharyngeal erythema. No thyromegaly. Ecchymosis around both eyes CARDIOVASCULAR: S1 and S2 present. No murmurs, rubs, or gallops. PULMONARY: Chest is clear to auscultation, no wheezing or crackles. ABDOMEN: Soft, nontender, nondistended, normoactive bowel sounds. No palpable organomegaly. MUSCULOSKELETAL: No joint swelling or deformity. EXTREMITIES: No cyanosis, clubbing, or pedal edema. -NEUROLOGICAL: Examination is limited by patient mental status changes. Patient moves both upper and lower extremities symmetrically. SKIN: No rashes. No petechiae - Labs CBC & Chem 7: 02/17/21 03:32 02/17/21 03:32 Labs: Microbiology - Last 24 Hours (Table) 02/14/21 10:36 Blood Culture - Final Blood No Growth after 144 hours Assessment and Plan Assessment: Subarachnoid hemorrhage due to fall at home. Repeat CT stable. Altered mental status, ruled out intracranial lesions. Possible metabolic encephalopathy.Patient is more awake and oriented at this time. Breakthrough seizures Left lower quadrant tenderness Nasal bone fracture Left forehead hematoma Patient with mild tachypnea and leukocytosis Acute kidney injury, present on admission. Improving Hypertension Chronic kidney disease stage III Hyperlipidemia History of GERD History of left side hemorrhagic stroke with right hemiparesis with periods of irritable and agitation History of depression and suicidal ideation History of left pneumothorax status post chest tube Plan: Pt. is a pleasant 55 years old male who presents with breakthrough seizure. Repeat CT study showed normal appearance. Resolving subarachnoid hemorrhage. Patient could not be transferred to the [facility] for neurosurgical evaluation due to be done abnormality. Stop Keppra, increase Lamictal to 250 mg twice a day. Continue same dose of zonisamide 200 mg-->250mg twice a day. Patient states that he follows up with Dr. Lai. ENT and surgery consulted for trauma and broken nasal bone . No surgical intervention recommended this time. Anticoagulation including heparin and aspirin on hold. Pain does not have any cardiac issues. labs and meds were reviewed. Monitor lytes and vitals. DVT and GI prophylaxis. DVT prophylaxis: Subcutaneous heparin GI Prophylaxis: Pepcid Prognosis is guarded. PTOT will be consulted. Patient may need rehab transfer.
[2021-02-21] MEDS: LORazepam 2 MG/ML INJ IV PRN ×2 (03:42→09:48)
[2021-02-21 06:23] LABS: Basophils # (A) 0.1 k/uL (0-0.2); Basophils % (A) 1 %; Eosinophils # (A) 0.3 k/uL (0-0.7); Eosinophils % (A) 3 %; HCT 37.6 % (39.0-53.0); HGB 13.6 gm/dL (13.0-17.5); Lymphocytes # (A) 1.7 k/uL (1.0-4.8); Lymphocytes % (A) 22 %; MCH 33.9 pg (25.0-35.0); MCHC 36.1 g/dL (31.0-37.0); MCV 93.9 fL (80.0-100.0); Mean Platelet Volume 7.8; Monocytes # (A) 0.7 k/uL (0-1.0); Monocytes % (A) 9 %; Neutrophils % (A) 64 %; Platelet Count 295 k/uL (150-450); WBC 7.8 k/uL (3.8-10.6)
[2021-02-21] MEDS: CITALOPRAM HYDROBROMIDE 20 MG TAB PO SCH (09:39)
[2021-02-21] MEDS: lamoTRIgine 25 MG TAB PO SCH (09:40)
[2021-02-21] MEDS: amLODIPine 5 MG TAB PO SCH (09:40)
[2021-02-21] MEDS: TAMSULOSIN 0.4 MG CAP.ER.24H PO SCH (09:40)
[2021-02-21] MEDS: lamoTRIgine 100 MG TAB PO SCH (09:40)
[2021-02-21] MEDS: carvediloL 12.5 MG TAB PO SCH (09:40)
[2021-02-21] MEDS: VALSARTAN 160 MG TAB PO SCH (09:41)
[2021-02-21] MEDS: ZONISAMIDE 100 MG CAP PO SCH (09:41)
[2021-02-21 09:47] LABS: African American GFR (CKD) 96.4 (60.0-200.0); Anion Gap 11.2 mmol/L (10.00-18.00); BUN/Creat Ratio 13.5 Ratio (12.00-20.00); Blood Urea Nitrogen 13.5 mg/dL (9.0-27.0); Calcium 9.2 mg/dL (8.7-10.3); Carbon Dioxide 17.8 mmol/L (20.0-27.5); Non-African American GFR(CKD) 83.2 (60.0-200.0); Potassium 3.6 mmol/L (3.5-5.5)
--- NOTE | 2021-02-21 09:49 | CT ---
EXAMINATION TYPE: CT brain wo con DATE OF EXAM: 02/21/2021 HISTORY: Evaluate bleeding evolution CT DLP: 1159 mGycm. Automated Exposure Control for Dose Reduction was Utilized. TECHNIQUE: CT scan of the head is performed without contrast. COMPARISON: CT brain 4 days ago and older studies. FINDINGS: There is no new acute intracranial hemorrhage or midline shift identified. Ventricles and sulci are stable and within normal limits in size for patient's age. Linear hyperdensity along the p ost central sulcus is unchanged from several most recent prior studies back through February 15. Some focal CSF prominence superior to this remains present axial image 44 towards the midline suspect old infarct. There is stable high left frontoparietal extra-axial or subdural CSF prominence isodense to CSF. Mucous retention cysts or polyps in the left ethmoid sinus is redemonstrated. Globes are intact bilaterally. IMPRESSION: No new acute intracranial hemorrhage or midline shift. Stable linear hyperdensity appear s to localize to the posterior central sulcus or motor cortex adjacent to the central gyrus. 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 No significant change from most recent CT. Tiny high left-sided subdural chronic hematoma or hygroma redemonstrated.
--- NOTE | 2021-02-21 10:16 | P.PN ---
Subjective Progress Note Date: 02/21/21 Patient is seen at bedside and he stated he is doing drastically better. Per his nurse no further seizures. He feels back to baseline and being assessed by physical therapy in the morning. He denies alcohol use and stated he is compliant taking medications. Objective - Vital Signs Vital signs: Vital Signs Temp 98.2 F 02/21/21 05:00 Pulse 73 02/21/21 05:00 Resp 16 02/21/21 05:00 BP 105/68 02/21/21 05:00 Pulse Ox 98 02/21/21 05:00 Intake & Output 02/20/21 02/21/21 02/21/21 18:59 06:59 18:59 Intake Total 240 Output Total 800 Balance -560 Intake: Oral 240 Output: Urine 800 Other: Voiding Method Toilet Toilet # Voids 6 - Exam GENERAL: The patient is lying in bed and is not in acute distress. NEUROLOGICAL: Higher mental function: The patient is awake, alert, oriented to self, place and time. Patient is following commands. No aphasia and no neglect. Cranial nerves: The pupils are round, equal and reactive to light. Visual callejas are full to confrontation throughout. Has echymoses around his eyes---resolved. Extraocular movement is intact no nystagmus is noted. Facial sensation is normal to touch throughout. The facial strength is normal throughout. Tongue is midline and moved [id number] without any difficulty. No dysarthria is noted. Shoulder shrug is normal bilaterally. Motor: Gait is normal. The strength is right forearm extension is 4+ while left forearm flexion is 4+ to 5-. Otherwise 5 over 5 throughout. Normal tone and bulk. Cerebellum: Normal finger to nose bilaterally. Sensation: Sensation is normal to touch throughout. WORK-UP: * Patient was sent for prolonged EEG for 2.5 hours recording to the EEG lab. Patient's EEG was started, but after 37 minutes of recording, he wanted to quit. It revealed background slowing of moderate degree, suggestive of gener alized cerebral dysfunction as can be seen with toxic metabolic encephalopathy or due to diffuse structural brain abnormality. No epileptiform activity was seen. * CT head from 02/17/[address] appearance. The right subdural hematoma along the tentorium appears slightly less pronounced. The left sided subarachnoid hemorrhage remains unchanged. * CTA of head and neck, showed no aneurysm, dissection. * X-ray of the right foot showed osseous overlap, cannot rule out fracture. * Lamictal level 7.7 (2-15), zonisamide level 22 (10-40). Both are in therapeutic range. * Urine drug screen is positive for tricyclic antidepressants as well as benzo. Serum alcohol was less than 10, acetaminophen less than 10, salsalate is less than 1.0. 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 Patient came with breakthrough seizure with a severe fall with prolonged postictal state. * Breakthrough seizure, unclear etiology. Apparently based upon report from patient's girlfriend and patient's pharmacist, he is taking medication regularly. Patient's seizure medications levels are therapeutic. I feel patient has medical refractory seizure. * Altered mental status, encephalopathy, probably due to postictal state, concussion, now improved. * Right subdural hematoma along the tentorium, left parietal subarachnoid hemorrhage, likely traumatic, due to seizure/fall. * Nasal bone fracture, due to the fall from seizure. * History of left fronto-parietal hemorrhagic stroke in 2014 with residual mild right hemiparesis * History of tobacco use, still smokes 2 packs per day. * Hypertension * Depression. Plan: * Patient could not be transferred to higher level of care, either unavailability of the bed, or declined transfer related to nonsurgical subdural/subarachnoid hemorrhages. * Keppra was stopped during this admission, Dr. Lancaster increased Lamictal to 250 mg twice a day (from 225mg 1 tab bid). Continue zonisamide 250mg 1 tab twice a day (was increased during this admission from 200mg 1 tab bid). Recommend patient to follow-up with his neurologist NATE to evaluate if his medications (antiepileptic drugs) needs to be modified further. * Patient states that he follows up with Dr. Lai. She had previously a rranged him to go to [facility] for 5 days of inpatient video EEG monitoring, and was recommended above AED regimen. He was doing very well for quite some time but now started having breakthrough seizures. Personally saw the patient on 01/28/2021 and at that time and noted that the patient could not tolerate Keppra and possibly Vimpat in the past. I do not understand why the patient continues to have seizures at home while in the hospital his seizures seems to be controlled. * Repeat CT head today AM: Was reported as no new acute intracranial hemorrhage or midline shift. Stable linear hyperdensity appears to localize to the posterior central sulcus or motor cortex adjacent to the central gyrus. 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 No significant change from most recent CT. Tiny high left-sided subdural chronic hematoma or hygroma redemonstrated. * Avoid antiplatelet for now because of his bleed. Recommend a repeat CT of the head in 5 days as outpatient and if it stable possibly consider antiplatelets. Will defer that as an outpatient for his neurologist or primary team. * Orthopedic team is on board * ENT team is on board * Patient on SCDs for DVT prophylaxis. Recommend the subcu heparin 5000 units every 12 hours since the the bleed is stable * PT OT evaluate gait and for home safety. Otherwise patient may be a candidate for short-term rehab. * If patient is discharged, need to follow-up with his neurologist in 1 week. * Recommend the patient to follow-up with [facility] neurology team (especially since had Epilepsy monitoring unit) which will help to detect whether down line he is a surgical candidate for his seizure or only medical management. Also to continue to follow-up with Dr. Lai (local neurologist). * Per [place] DMV, patient was notified he cannot drive for 6 months until seizure free, to avoid height, heavy machinery or swim unassisted and this is explained to patient. The plan is discussed with patient and his nurse. There is no further neurological work-up. Jose Fernando MD Neuro-Hospitalist Time with Patient: Less than 30
[2021-02-21] MEDS: ZONISAMIDE 25 MG CAP PO SCH (11:36)
[2021-02-21 14:22] VITALS: BP 110/70; PULSE 66; TEMP 97.8
[2021-02-21 16:11] LABS: Amorphous Sediment,Urine Occasional /hpf; Appearance,Urine Turbid (Clear); Bilirubin,Urine Negative (Negative); Blood,Urine Negative (Negative); Color,Urine Yellow; Glucose,Urine (UA) Negative (Negative); Ketones,Urine Negative (Negative); Leukocyte Esterase,Urine Negative (Negative); Mucus,Urine Many /hpf; Nitrite,Urine Negative (Negative); PH, Urine 6.5 (5.0-8.0); Protein,Urine Trace (Negative); RBC,Urine 18 /hpf (0-5); Specific Gravity,Urine 1.015 (1.001-1.035); Squamous Epithelial Cell,Urine 1 /hpf (0-4); Urobilinogen,Urine <2.0 mg/dL (<2.0)
== END 2021-02-21 18:10 | disposition home or self-care (01) | DRG 100 ==
LOC: EC 13:16 → 3SCARD 15:21 → 2SICU 02-16 14:05 → 5NMEDONC 02-17 23:48
PROVIDERS: ADMIT Internal Medicine; ATTEND Internal Medicine
DX: G40.919 Epilepsy, unspecified, intractable, without status epilepticus (principal); S06.5X0A Traumatic subdural hemorrhage without loss of consciousness, initial encounter; S06.6X0A Traumatic subarachnoid hemorrhage without loss of consciousness, initial encounter; G92.8 Other toxic encephalopathy; I69.351 Hemiplegia and hemiparesis following cerebral infarction affecting right dominant side; N17.9 Acute kidney failure, unspecified; F11.20 Opioid dependence, uncomplicated; S02.402A Zygomatic fracture, unspecified side, initial encounter for closed fracture; Z20.822 Contact with and (suspected) exposure to COVID-19; D72.829 Elevated white blood cell count, unspecified; E78.5 Hyperlipidemia, unspecified; E86.9 Volume depletion, unspecified; E87.6 Hypokalemia; F17.210 Nicotine dependence, cigarettes, uncomplicated; F31.9 Bipolar disorder, unspecified; F41.0 Panic disorder [episodic paroxysmal anxiety]; I12.9 Hypertensive chronic kidney disease with stage 1 through stage 4 chronic kidney disease, or unspecified chronic kidney disease; J32.2 Chronic ethmoidal sinusitis; N13.9 Obstructive and reflux uropathy, unspecified; N18.30 Chronic kidney disease, stage 3 unspecified; F32.9 Major depressive disorder, single episode, unspecified; W18.30XA Fall on same level, unspecified, initial encounter; Z91.81 History of falling; Y92.009 Unspecified place in unspecified non-institutional (private) residence as the place of occurrence of the external cause; Z79.82 Long term (current) use of aspirin; Z79.899 Other long term (current) drug therapy; S06.0X0A Concussion without loss of consciousness, initial encounter; I69.398 Other sequelae of cerebral infarction; Z87.01 Personal history of pneumonia (recurrent); Z82.49 Family history of ischemic heart disease and other diseases of the circulatory system; Z80.42 Family history of malignant neoplasm of prostate; K21.9 Gastro-esophageal reflux disease without esophagitis; R94.31 Abnormal electrocardiogram [ECG] [EKG]; R79.89 Other specified abnormal findings of blood chemistry
CPT/HCPCS: 36415; 70450; 70486; 70496; 70498; 71045; 72125; 74176; 80048; 80053; 80143; 80175; 80179; 80203; 80306; 80320; 81001; 82140; 82550; 83605; 84132; 84145; 84484; 85025; 85610; 85730; 87040; 87635; 93005; 94760; 95816; 96360; 96361; 99285

== ENCOUNTER 2021-07-13 14:27 | Emergency (ER) | payer OTHER ==
[2021-07-13 15:25] VITALS: BP 107/72; PULSE 61; RESP 16; TEMP 98
--- NOTE | 2021-07-13 17:40 | ED ---
General Adult HPI - General Chief complaint: Recheck/Abnormal Lab/Rx Stated complaint: med refil Time Seen by Provider: 07/13/21 15:51 Source: patient Mode of arrival: ambulatory Limitations: no limitations - History of Present Illness Initial comments: This 55-year-old male presents to the emergency department requesting medication refill. Patient states he was seeing who has seen for years, however he went to refill of his medication a few days ago and they informed him that they no longer take patient's insurance which was [employer]. Patient's and room states she got in contact with her insurance company to see which physicians in the area will take her insurance. She states she did schedule an appointment with Dr. Jaziel Lockhart for July 26 but states they only have 2 more days worth of medications. Patient denies any symptoms at this time. He denies any chest pain, shortness of breath, abdominal pain, nausea, vomiting, change in bowel or bladder, change in appetite, swelling, weakness, fever, rash, lightheadedness, dizziness, change in vision, sore throat, cough. Patient states he feels well with no complaints other than being unable to refill his medication. - Related Data Home Medications Medication Instructions Recorded Confirmed Atorvastatin [Lipitor] 80 mg PO HS 10/24/18 02/13/21 Tamsulosin HCl [Flomax] 0.4 mg PO DAILY 12/24/19 02/13/21 Citalopram Hydrobromide [CeleXA] 40 mg PO DAILY 04/26/20 02/13/21 amLODIPine [Norvasc] 5 mg PO DAILY 05/15/20 02/13/21 Zonisamide [Zonegran] 200 mg PO BID 01/25/21 02/13/21 Multivitamins, Thera [Multivitamin 1 tab PO DAILY 02/13/21 02/13/21 (formulary)] Previous Rx's Medication Instructions Recorded Magnesium Oxide [Mag-Ox] 400 mg PO DAILY #28 tab 11/05/18 Famotidine [Pepcid] 20 mg PO BID #60 tab 11/21/18 lamoTRIgine [LaMICtal] 200 mg PO BID tab 01/16/20 Thiamine [Vitamin B-1] 100 mg PO DAILY@1200 tab 01/28/21 Valsartan [Diovan] 160 mg PO DAILY #30 tab 02/21/21 Zonisamide [Zonegran] 50 mg PO BID #60 cap 02/21/21 carvediloL [Coreg*] 12.5 mg PO BID-W/MEALS #60 tab 02/21/21 lamoTRIgine [LaMICtal] 50 mg PO BID #60 tab 02/21/21 Atorvastatin [Lipitor] 80 mg PO HS #30 tab 07/13/21 Atorvastatin [Lipitor] 80 mg PO HS #30 tab 07/13/21 Baclofen [Lioresal] 20 mg PO TID #15 tab 07/13/21 Carvedilol [Coreg] 25 mg PO BID #60 tablet 07/13/21 Citalopram Hydrobromide 40 mg PO DAILY #30 tablet 07/13/21 Famotidine 20 mg PO BID #60 tab 07/13/21 QUEtiapine FUMARATE [SEROquel] 300 mg PO HS #30 tab 07/13/21 Tamsulosin [Flomax] 0.4 mg PO DAILY #30 cap 07/13/21 Valsartan/Hydrochlorothiazide 1 each PO DAILY #30 tablet 07/13/21 [Valsartan-Hctz 160-25 mg Tab] Zonisamide 100 mg PO BID #60 capsule 07/13/21 amLODIPine [Norvasc] 5 mg PO DAILY #30 tab 07/13/21 hydroCHLOROthiazide 25 mg PO DAILY #30 tablet 07/13/21 lamoTRIgine 200 mg PO BID #60 tablet 07/13/21 lamoTRIgine [LaMICtal] 25 mg PO BID #60 tab 07/13/21 Allergies Allergy/AdvReac Type Severity Reaction Status Date / Time No Known Allergies Allergy Verified 07/13/21 15:25 Review of Systems ROS Statement: Those systems with pertinent positive or pertinent negative responses have been documented in the HPI. ROS Other: All systems not noted in ROS Statement are negative. Past Medical History Past Medical History: CVA/TIA, GERD/Reflux, Hyperlipidemia, Hypertension, Pneumonia, Seizure Disorder Additional Past Medical History / Comment(s): L hemorrhagic stroke-R sided weakness and has had occasions of increased irritability/agitation/isolation, multiple mental health unit admissions with most recent [facility] with major depression/suicidal ideations without plan/acute anxiety, uncontrolled seizures, L pneumothorax with chest tube, migraines-has used other people's narcotics in the past per past medical record but pt denies, benign rectal polyp, etoh last drink more than 10 years ago. History of Any Multi-Drug Resistant Organisms: None Reported Past Surgical History: No Surgical Hx Reported Additional Past Surgical History / Comment(s): COLONOSCOPY POLYPS REMOVED-NEG, bilateral cataract removal, R testicular surgery as a little boy. Past Anesthesia/Blood Transfusion Reactions: No Reported Reaction Additional Past Anesthesia/Blood Transfusion Reaction / Comment(s): Pt has never recieved blood. Past Psychological History: Anxiety, Bipolar, Depression, Panic Disorder Smoking Status: Current every day smoker Past Alcohol Use History: None Reported Past Drug Use History: None Reported - Past Family History Father Family Medical History: Cancer, Hyperlipidemia, Hypertension, Prostate Disorder Additional Family Medical History / Comment(s): PROSTATE CA Mother Family Medical History: Osteoarthritis (OA) Additional Family Medical History / Comment(s): MOM IS 71 General Exam Limitations: no limitations General appearance: alert, in no apparent distress Head exam: Present: atraumatic, normocephalic, normal inspection Eye exam: Present: normal appearance, PERRL, EOMI. Absent: scleral icterus, conjunctival injection, periorbital swelling Pupils: Present: normal accommodation ENT exam: Present: normal exam, mucous membranes moist Neck exam: Present: normal inspection, full ROM. Absent: tenderness, meningismus, lymphadenopathy Respiratory exam: Present: normal lung sounds bilaterally. Absent: respiratory distress, wheezes, rales, rhonchi, stridor, chest wall tenderness Cardiovascular Exam: Present: regular rate, normal rhythm, normal heart sounds. Absent: systolic murmur, diastolic murmur, rubs, gallop, clicks GI/Abdominal exam: Present: soft, normal bowel sounds. Absent: distended, tenderness, guarding, rebound, rigid Extremities exam: Present: normal inspection, full ROM, normal capillary refill. Absent: tenderness, pedal edema, joint swelling, calf tenderness Back exam: Present: full ROM. Absent: CVA tenderness (R), CVA tenderness (L), paraspinal tenderness, vertebral tenderness Neurological exam: Present: alert, oriented X3, CN II-XII intact Psychiatric exam: Present: normal affect, normal mood Skin exam: Present: warm, dry, intact, normal color. Absent: rash Course Vital Signs 07/13/21 15:18 Temperature 98.0 F Pulse Rate 61 Respiratory 16 Rate Blood Pressure 107/72 O2 Sat by Pulse 98 Oximetry Medical Decision Making - Medical Decision Making This 65-year-old male presents emergency Department requesting refill prescription. Patient did have his bubble pack with medication names listed along with dosing on his bubble pack. For all medications that he takes once a day I did prescribed 30 pills and instructed him to take as prescribed. For all BID prescriptions I gave 60 pills and instructed him to take as prescribed. I did not refill patient medications that he was able to get [id number] such aspirin and magnesium. I did re-prescribe his baclofen TID that is pres cribed TID, however I only gave 15 pills (5 days worth). Instructed patient to call Jaziel Lockhart for earliest appointment or present to his scheduled appointment on August 05. Strict return precautions were discussed. Patient verbally agreed to plan. Patient sent home in stable condition. Case discussed in detail attending, Dr. Pringle. Disposition Clinical Impression: Encounter for medication refill Disposition: HOME SELF-CARE Condition: Stable Instructions (If sedation given, give patient instructions): Medicine Refill (ED) Additional Instructions: Please follow-up with your primary care provider as soon as possible. Return to the emergency department if any symptoms arise. Prescriptions: Citalopram Hydrobromide 40 mg PO DAILY #30 tablet Carvedilol [Coreg] 25 mg PO BID #60 tablet Famotidine 20 mg PO BID #60 tab Tamsulosin [Flomax] 0.4 mg PO DAILY #30 cap hydroCHLOROthiazide 25 mg PO DAILY #30 tablet lamoTRIgine [LaMICtal] 25 mg PO BID #60 tab lamoTRIgine 200 mg PO BID #60 tablet Baclofen [Lioresal] 20 mg PO TID #15 tab Atorvastatin [Lipitor] 80 mg PO HS #30 tab Atorvastatin [Lipitor] 80 mg PO HS #30 tab amLODIPine [Norvasc] 5 mg PO DAILY #30 tab QUEtiapine FUMARATE [SEROquel] 300 mg PO HS #30 tab Valsartan/Hydrochlorothiazide [Valsartan-Hctz 160-25 mg Tab] 1 each PO DAILY #30 tablet Zonisamide 100 mg PO BID #60 capsule Is patient prescribed a controlled substance at d/c from ED?: No Referrals: None,Stated [Primary Care Provider] - 1-2 days Jaziel Lockhart MD [STAFF PHYSICIAN] - 1-2 days Time of Disposition: 17:40
== END 2021-07-13 18:08 | disposition home or self-care (01) ==
LOC: EC 14:27
DX: Z76.0 Encounter for issue of repeat prescription (principal); K21.9 Gastro-esophageal reflux disease without esophagitis; E78.5 Hyperlipidemia, unspecified; I10 Essential (primary) hypertension; G40.909 Epilepsy, unspecified, not intractable, without status epilepticus; F41.9 Anxiety disorder, unspecified; F31.9 Bipolar disorder, unspecified; F17.200 Nicotine dependence, unspecified, uncomplicated; Z86.73 Personal history of transient ischemic attack (TIA), and cerebral infarction without residual deficits; Z87.19 Personal history of other diseases of the digestive system; Z79.899 Other long term (current) drug therapy
CPT/HCPCS: 99281

== ENCOUNTER 2021-07-26 13:21 | Emergency (ER) | payer OTHER ==
[2021-07-26 13:36] VITALS: BP 97/71; PULSE 80; RESP 16; TEMP 98.1
--- NOTE | 2021-07-26 14:16 | XR ---
EXAMINATION TYPE: XR chest 2V DATE OF EXAM: 07/26/2021 COMPARISON: 02/15/2021 TECHNIQUE: PA and lateral views submitted. HISTORY: Pain FINDINGS: The lungs are clear and there is no pneumothorax, pleural effusion, or focal pneumonia. Heart size normal. No overt failure. Biapical pleural thickening. Mild hyperinflation correlate for COPD. Hypert rophic and degenerative changes of the spine. IMPRESSION: 1. No acute process.
--- NOTE | 2021-07-26 16:41 | ED ---
Fall HPI - General Chief Complaint: Fall Stated Complaint: Fall/back/side pain Time Seen by Provider: 07/26/21 15:15 Source: patient Mode of arrival: wheelchair - History of Present Illness Initial Comments: 55-year-old male with past history of CVA and right-sided weakness, hypertension, hyperlipidemia presents emergency Department after he sustained a fall 2 days ago. He reports that he was working on his car, tripped over some tables and fell on the right chest wall, on top of his drill. He was able to get him today. Denies any headache injury. No neck or back pain. Does report to right-sided chest wall pain. States it's difficult to take in a deep breath. He denies any hematemesis. No fevers. No purulent cough. No other injuries. Denies syncope and admits to mechanical fall. No other alleviating, precipitating or modifying factors - Related Data Home Medications Medication Instructions Recorded Confirmed Atorvastatin [Lipitor] 80 mg PO HS 10/24/18 02/13/21 Tamsulosin HCl [Flomax] 0.4 mg PO DAILY 12/24/19 02/13/21 Citalopram Hydrobromide [CeleXA] 40 mg PO DAILY 04/26/20 02/13/21 amLODIPine [Norvasc] 5 mg PO DAILY 05/15/20 02/13/21 Zonisamide [Zonegran] 200 mg PO BID 01/25/21 02/13/21 Multivitamins, Thera [Multivitamin 1 tab PO DAILY 02/13/21 02/13/21 (formulary)] Previous Rx's Medication Instructions Recorded Magnesium Oxide [Mag-Ox] 400 mg PO DAILY #28 tab 11/05/18 Famotidine [Pepcid] 20 mg PO BID #60 tab 11/21/18 lamoTRIgine [LaMICtal] 200 mg PO BID tab 01/16/20 Thiamine [Vitamin B-1] 100 mg PO DAILY@1200 tab 01/28/21 Valsartan [Diovan] 160 mg PO DAILY #30 tab 02/21/21 Zonisamide [Zonegran] 50 mg PO BID #60 cap 02/21/21 carvediloL [Coreg*] 12.5 mg PO BID-W/MEALS #60 tab 02/21/21 lamoTRIgine [LaMICtal] 50 mg PO BID #60 tab 02/21/21 Atorvastatin [Lipitor] 80 mg PO HS #30 tab 07/13/21 Atorvastatin [Lipitor] 80 mg PO HS #30 tab 07/13/21 Baclofen [Lioresal] 20 mg PO TID #15 tab 07/13/21 Carvedilol [Coreg] 25 mg PO BID #60 tablet 07/13/21 Citalopram Hydrobromide 40 mg PO DAILY #30 tablet 07/13/21 Famotidine 20 mg PO BID #60 tab 07/13/21 QUEtiapine FUMARATE [SEROquel] 300 mg PO HS #30 tab 07/13/21 Tamsulosin [Flomax] 0.4 mg PO DAILY #30 cap 07/13/21 Valsartan/Hydrochlorothiazide 1 each PO DAILY #30 tablet 07/13/21 [Valsartan-Hctz 160-25 mg Tab] Zonisamide 100 mg PO BID #60 capsule 07/13/21 amLODIPine [Norvasc] 5 mg PO DAILY #30 tab 07/13/21 hydroCHLOROthiazide 25 mg PO DAILY #30 tablet 07/13/21 lamoTRIgine 200 mg PO BID #60 tablet 07/13/21 lamoTRIgine [LaMICtal] 25 mg PO BID #60 tab 07/13/21 HYDROcodone/APAP 7.5-325MG [Celoron 1 tab PO Q6HR PRN 3 Days #12 tab 07/26/21 7.5-325] Lidocaine [Lidoderm 5% Patch] 1 patch TRANSDERM DAILY #20 patch 07/26/21 Allergies Allergy/AdvReac Type Severity Reaction Status Date / Time No Known Allergies Allergy Verified 07/26/21 13:36 Review of Systems ROS Statement: Those systems with pertinent positive or pertinent negative responses have been documented in the HPI. ROS Other: All systems not noted in ROS Statement are negative. Past Medical History Past Medical History: CVA/TIA, GERD/Reflux, Hyperlipidemia, Hypertension, Pneumonia, Seizure Disorder Additional Past Medical History / Comment(s): L hemorrhagic stroke-R sided weakness and has had occasions of increased irritability/agitation/isolation, multiple mental health unit admissions with most [facility] with major depression/suicidal ideations without plan/acute anxiety, uncontrolled seizures, L pneumothorax with chest tube, migraines-has used other people's narcotics in the past per past medical record but pt denies, benign rectal polyp, etoh last drink more than 10 years ago. History of Any Multi-Drug Resistant Organisms: None Reported Past Surgical History: No Surgical Hx Reported Additional Past Surgical History / Comment(s): COLONOSCOPY POLYPS REMOVED-NEG, bilateral cataract removal, R testicular surgery as a little boy. Past Anesthesia/Blood Transfusion Reactions: No Reported Reaction Additional Past Anesthesia/Blood Transfusion Reaction / Comment(s): Pt has never recieved blood. Past Psychological History: Anxiety, Bipolar, Depression, Panic Disorder Smoking Status: Current every day smoker Past Alcohol Use History: None Reported Past Drug Use History: None Reported - Past Family History Father Family Medical History: Cancer, Hyperlipidemia, Hypertension, Prostate Disorder Additional Family Medical History / Comment(s): PROSTATE CA Mother Family Medical History: Osteoarthritis (OA) Additional Family Medical History / Comment(s): MOM IS 71 General Exam Limitations: no limitations General appearance: alert, in no apparent distress Head exam: Present: atraumatic, normocephalic, normal inspection Eye exam: Present: normal appearance, PERRL, EOMI. Absent: scleral icterus, conjunctival injection, periorbital swelling ENT exam: Present: normal exam, mucous membranes moist Neck exam: Present: normal inspection. Absent: tenderness, meningismus, lymphadenopathy Respiratory exam: Present: normal lung sounds bilaterally, chest wall tenderness (right lateral chest wall - ribs 4-8. mild overlying ecchymosis in this area. no palpable step offs). Absent: respiratory distress, wheezes, rales, rhonchi, stridor Cardiovascular Exam: Present: regular rate, normal rhythm, normal heart sounds. Absent: systolic murmur, diastolic murmur, rubs, gallop, clicks GI/Abdominal exam: Present: soft, normal bowel sounds. Absent: distended, tenderness, guarding, rebound, rigid Extremities exam: Present: normal inspection, full ROM, normal capillary refill. Absent: tenderness, pedal edema, joint swelling, calf tenderness Back exam: Present: normal inspection Neurological exam: Present: alert, oriented X3, CN II-XII intact Psychiatric exam: Present: normal affect, normal mood Skin exam: Present: warm, dry, intact, normal color. Absent: rash Course Vital Signs 07/26/21 13:34 Temperature 98.1 F Pulse Rate 80 Respiratory 16 Rate Blood Pressure 97/71 O2 Sat by Pulse 99 Oximetry Medical Decision Making - Medical Decision Making Upon arrival patient is placed into [facility]. He is sent over for an x-ray as well as a right-sided rib x-ray. Results are reviewed and are negative. Patient will be given a Lidoderm patches and Celoron for pain control. Recommended providing him with an incentive spirometer however patient refused. Patient is to follow-up with his primary care doctor in 2-4 days and return for any new or worsening symptoms. Patient was discharged home in stable condition Disposition Clinical Impression: Fall, Rib pain on right side Disposition: HOME SELF-CARE Condition: Stable Instructions (If sedation given, give patient instructions): Chest Wall Pain (ED) Additional Instructions: Follow up with your PCP in 2-4 days. Return for any new or worsening symptoms. Prescriptions: Lidocaine [Lidoderm 5% Patch] 1 patch TRANSDERM DAILY #20 patch HYDROcodone/APAP 7.5-325MG [Celoron 7.5-325] 1 tab PO Q6HR PRN 3 Days #12 tab PRN Reason: Pain Is patient prescribed a controlled substance at d/c from ED?: Yes When asked, does pt state using other controlled substances?: No If prescribed controlled substance>3 days was MAPS reviewed?: Prescribed <3 Days If opioid is for acute pain is fill amount 7 days or less?: Yes If Rx opioid, was Start Talking consent form obtained?: Yes Referrals: Jaziel Lockhart MD [Primary Care Provider] - 1-2 days Time of Disposition: 16:57
--- NOTE | 2021-07-26 16:49 | XR ---
EXAMINATION TYPE: XR ribs RT DATE OF EXAM: 07/26/2021 COMPARISON: NONE HISTORY: Rib pain TECHNIQUE: 4 views FINDINGS: There is no evidence of pleural effusion or pneumothorax. Right lung is clear of infiltrate . No rib fracture seen. IMPRESSION: Negative right rib exam.
== END 2021-07-26 17:01 | disposition home or self-care (01) ==
LOC: EC 13:21
DX: S20.211A Contusion of right front wall of thorax, initial encounter (principal); I10 Essential (primary) hypertension; G40.909 Epilepsy, unspecified, not intractable, without status epilepticus; K21.9 Gastro-esophageal reflux disease without esophagitis; E78.5 Hyperlipidemia, unspecified; F31.9 Bipolar disorder, unspecified; F41.9 Anxiety disorder, unspecified; F17.200 Nicotine dependence, unspecified, uncomplicated; Z86.73 Personal history of transient ischemic attack (TIA), and cerebral infarction without residual deficits; Z79.899 Other long term (current) drug therapy; W01.198A Fall on same level from slipping, tripping and stumbling with subsequent striking against other object, initial encounter
CPT/HCPCS: 71046; 99284

== ENCOUNTER 2021-09-03 22:22 | Inpatient (IN) | payer OTHER ==
[2021-09-03] MEDS ORDERED: SODIUM CHLORIDE 0.9% 1,000 ML IV STA (22:59)
[2021-09-03 23:18] LABS: Basophils # (A) 0.1 k/uL (0-0.2); Basophils % (A) 2 %; Eosinophils # (A) 0.1 k/uL (0-0.7); Eosinophils % (A) 3 %; HGB 13.2 gm/dL (13.0-17.5); Lymphocytes # (A) 0.8 k/uL (1.0-4.8); Lymphocytes % (A) 16 %; MCH 34.8 pg (25.0-35.0); MCHC 33.9 g/dL (31.0-37.0); MCV 102.6 fL (80.0-100.0); Macrocytosis Slight; Mean Platelet Volume 7.9; Monocytes # (A) 0.3 k/uL (0-1.0); Monocytes % (A) 6 %; Neutrophils # (A) 3.3 k/uL (1.3-7.7); Neutrophils % (A) 71 %; Platelet Count 230 k/uL (150-450); RDW 13.2 % (11.5-15.5); WBC 4.6 k/uL (3.8-10.6)
[2021-09-03 23:31] LABS: Albumin 3.8 g/dL (3.5-5.0); Calcium 8.3 mg/dL (8.4-10.2); Magnesium 2.1 mg/dL (1.6-2.3); Potassium 3.8 mmol/L (3.5-5.1); Total Bilirubin 0.3 mg/dL (0.2-1.3); Total Protein 6.1 g/dL (6.3-8.2)
[2021-09-04] MEDS ORDERED: levETIRAcetam IV 2,000 MG in SODIUM CHLORIDE 0.9% 250 ML IVPB ONE (00:39)
[2021-09-04] MEDS ORDERED: NALOXONE 0.4 MG/ML 1 ML VIAL IV PRN (00:46)
--- NOTE | 2021-09-04 00:46 | ED ---
Seizure HPI - General Chief Complaint: Seizure Stated Complaint: Seizure Time Seen by Provider: 09/03/21 22:58 Source: patient Mode of arrival: ambulatory - History of Present Illness Initial Comments: Robert is a 55-year-old male history of seizure disorder which developed after he had a previous stroke. Patient follows with Dr. Lai he is compliant with his medications. However the past couple months patient seizures event happening and increased frequency. Patient reports he had a seizure earlier in the day today, girlfriend and witnessed a second seizure which lasted approximately 6 minutes due to recurrent seizures EMS was called, found to the hospital the patient had a third seizure without returning to his baseline mental status he was treated with Versed. On arrival patient is sedated, answers one word answers. No complaints of headache or pain. No obvious injuries. Reports that his girlfriend manages all his meds and he doesn't miss doses or refused to take them. Patient states that historically he would only have about 1 seizure a month but now he's having multiple daily. - Related Data Home Medications Medication Instructions Recorded Confirmed Atorvastatin [Lipitor] 80 mg PO HS 10/24/18 02/13/21 Tamsulosin HCl [Flomax] 0.4 mg PO DAILY 12/24/19 02/13/21 Citalopram Hydrobromide [CeleXA] 40 mg PO DAILY 04/26/20 02/13/21 amLODIPine [Norvasc] 5 mg PO DAILY 05/15/20 02/13/21 Zonisamide [Zonegran] 200 mg PO BID 01/25/21 02/13/21 Multivitamins, Thera [Multivitamin 1 tab PO DAILY 02/13/21 02/13/21 (formulary)] Previous Rx's Medication Instructions Recorded Magnesium Oxide [Mag-Ox] 400 mg PO DAILY #28 tab 11/05/18 Famotidine [Pepcid] 20 mg PO BID #60 tab 11/21/18 lamoTRIgine [LaMICtal] 200 mg PO BID tab 01/16/20 Thiamine [Vitamin B-1] 100 mg PO DAILY@1200 tab 01/28/21 Valsartan [Diovan] 160 mg PO DAILY #30 tab 02/21/21 Zonisamide [Zonegran] 50 mg PO BID #60 cap 02/21/21 carvediloL [Coreg*] 12.5 mg PO BID-W/MEALS #60 tab 02/21/21 lamoTRIgine [LaMICtal] 50 mg PO BID #60 tab 02/21/21 Atorvastatin [Lipitor] 80 mg PO HS #30 tab 07/13/21 Atorvastatin [Lipitor] 80 mg PO HS #30 tab 07/13/21 Baclofen [Lioresal] 20 mg PO TID #15 tab 07/13/21 Citalopram Hydrobromide 40 mg PO DAILY #30 tablet 07/13/21 [Citalopram HBr] Famotidine 20 mg PO BID #60 tab 07/13/21 QUEtiapine FUMARATE [SEROquel] 300 mg PO HS #30 tab 07/13/21 Tamsulosin [Flomax] 0.4 mg PO DAILY #30 cap 07/13/21 Valsartan/Hydrochlorothiazide 1 each PO DAILY #30 tablet 07/13/21 [Valsartan-Hctz 160-25 mg Tab] Zonisamide 100 mg PO BID #60 capsule 07/13/21 amLODIPine [Norvasc] 5 mg PO DAILY #30 tab 07/13/21 carvediloL [Coreg] 25 mg PO BID #60 tablet 07/13/21 hydroCHLOROthiazide 25 mg PO DAILY #30 tablet 07/13/21 lamoTRIgine 200 mg PO BID #60 tablet 07/13/21 lamoTRIgine [LaMICtal] 25 mg PO BID #60 tab 07/13/21 HYDROcodone/APAP 7.5-325MG [[place] 1 tab PO Q6HR PRN 3 Days #12 tab 07/26/21 7.5-325] Lidocaine [Lidoderm 5% Patch] 1 patch TRANSDERM DAILY #20 patch 07/26/21 Allergies Allergy/AdvReac Type Severity Reaction Status Date / Time No Known Allergies Allergy Verified 07/26/21 13:36 Review of Systems ROS Statement: Those systems with pertinent positive or pertinent negative responses have been documented in the HPI. ROS Other: All systems not noted in ROS Statement are negative. Past Medical History Past Medical History: CVA/TIA, GERD/Reflux, Hyperlipidemia, Hypertension, Pneumo eula, Seizure Disorder Additional Past Medical History / Comment(s): L hemorrhagic stroke-R sided weakness and has had occasions of increased irritability/agitation/isolation, multiple mental health unit admissions with most recent on 10/24/18 [facility] with major depression/suicidal ideations without plan/acute anxiety, uncontrolled seizures, L pneumothorax with chest tube, migraines-has used other people's narcotics in the past per past medical record but pt denies, benign rectal polyp, etoh last drink more than 10 years ago. History of Any Multi-Drug Resistant Organisms: None Reported Past Surgical History: No Surgical Hx Reported Additional Past Surgical History / Comment(s): COLONOSCOPY POLYPS REMOVED-NEG, bilateral cataract removal, R testicular surgery as a little boy. Past Anesthesia/Blood Transfusion Reactions: No Reported Reaction Additional Past Anesthesia/Blood Transfusion Reaction / Comment(s): Pt has never recieved blood. Past Psychological History: Anxiety, Bipolar, Depression, Panic Disorder Smoking Status: Current every day smoker Past Alcohol Use History: None Reported Past Drug Use History: None Reported - Past Family History Father Family Medical History: Cancer, Hyperlipidemia, Hypertension, Prostate Disorder Additional Family Medical History / Comment(s): PROSTATE CA Mother Family Medical History: Osteoarthritis (OA) Additional Family Medical History / Comment(s): MOM IS 71 General Exam - General Exam Comments Initial Comments: Physical Exam GENERAL: Patient is well-developed and well-nourished. Patient is nontoxic and well-hydrated HENT: Normocephalic, Atraumatic. EYES: PERRL, EOMI PULMONARY: Unlabored respirations. CARDIOVASCULAR: RRR ABDOMEN: non-distended SKIN: Minimal injury : Deferred NEUROLOGIC: Patient is alert and oriented to person, able to identify hes in the hospital, knows he had seizures earlier Moving all extremities spontaneously MUSCULOSKELETAL: Normal extremities with adequate strength and full range of motion. No lower extremity swelling or edema. No calf tenderness. Course Vital Signs 09/03/21 22:24 Temperature 98 F Pulse Rate 62 Respiratory 19 Rate Blood Pressure 143/98 O2 Sat by Pulse 98 Oximetry Medical Decision Making - Medical Decision Making Patient was seen and evaluated, history is obtained from the patient and mother bedside Mother concerned that these could be results of recurrent strokes not to seizures so the patient did respond appropriately to benzodiazepine medications. I advised him that he had 3 seizures in a very short period of time in 2 of those happen without returning to his mental baseline status could be considered status epilepticus and we will admit him for further evaluation by neurology. Plan for admission was discussed with who accepts. - Lab Data Result diagrams: 09/03/21 23:04 09/03/21 23:04 Lab Results 09/03/21 09/03/21 Range/Units 23:04 23:04 WBC 4.6 (3.8-10.6) k/uL RBC 3.80 L (4.30-5.90) m/uL Hgb 13.2 (13.0-17.5) gm/dL Hct 39.0 (39.0-53.0) % MCV 102.6 H (80.0-100.0) fL MCH 34.8 (25.0-35.0) pg MCHC 33.9 (31.0-37.0) g/dL RDW 13.2 (11.5-15.5) % Plt Count 230 (150-450) k/uL MPV 7.9 Neutrophils % 71 % Lymphocytes % 16 % Monocytes % 6 % Eosinophils % 3 % Basophils % 2 % Neutrophils # 3.3 (1.3-7.7) k/uL Lymphocytes # 0.8 L (1.0-4.8) k/uL Monocytes # 0.3 (0-1.0) k/uL Eosinophils # 0.1 (0-0.7) k/uL Basophils # 0.1 (0-0.2) k/uL Macrocytosis Slight Sodium 137 (137-145) mmol/L Potassium 3.8 (3.5-5.1) mmol/L Chloride 112 H (98-107) mmol/L Carbon Dioxide 18 L (22-30) mmol/L Anion Gap 7 mmol/L BUN 15 (9-20) mg/dL Creatinine 1.26 H (0.66-1.25) mg/dL Est GFR (CKD-EPI)AfAm 73 (>60 ml/min/1.73 sqM) Est GFR (CKD-EPI)NonAf 63 (>60 ml/min/1.73 sqM) Glucose 70 L (74-99) mg/dL Calcium 8.3 L (8.4-10.2) mg/dL Magnesium 2.1 (1.6-2.3) mg/dL Total Bilirubin 0.3 (0.2-1.3) mg/dL AST 18 (17-59) U/L ALT 16 (4-49) U/L Alkaline Phosphatase 66 (38-126) U/L Total Protein 6.1 L (6.3-8.2) g/dL Albumin 3.8 (3.5-5.0) g/dL Disposition Clinical Impression: Status epilepticus Disposition: ADMITTED IP TO THIS [facility] Condition: Serious Instructions (If sedation given, give patient instructions): Seizure/Epilepsy Discharge Instructions & Follow-Up Is patient prescribed a controlled substance at d/c from ED?: No Referrals: Jaziel Lockhart MD [Primary Care Provider] - 1-2 days
[2021-09-04] MEDS: SODIUM CHLORIDE 0.9% 1,000 ML IV SCH ×4 (01:16→23:51)
[2021-09-04 02:11] LABS: Amphetamine Screen,Urine Not Detected (NotDetected); Barbiturate Screen,Urine Not Detected (NotDetected); Benzodiazepines Screen,Urine Not Detected (NotDetected); Cocaine Screen,Urine Not Detected (NotDetected); Methadone Screen, Urine Not Detected (NotDetected); Opiate Screen,Urine Not Detected (NotDetected); Oxycodone Screen, Urine Not Detected (NotDetected); Phencyclidine Screen,Urine Not Detected (NotDetected); Tricyclic Antidepressant,Urine Detected (NotDetected); Urn Cannabinoid Scrn Not Detected (NotDetected)
[2021-09-04 05:52] LABS: Glucose,Whole Blood 115 mg/dL (70-110)
[2021-09-04] MEDS ORDERED: lamoTRIgine 25 MG TAB PO SCH (13:15)
[2021-09-04] MEDS ORDERED: ACETAMINOPHEN TAB 325 MG TAB PO PRN (13:44)
[2021-09-04] MEDS: lamoTRIgine 100 MG TAB PO SCH ×2 (13:48→20:37)
[2021-09-04] MEDS: HEPARIN SODIUM,PORCINE/PF 5,000 UNIT/0.5 ML SYRINGE SQ SCH ×2 (15:35→23:54)
[2021-09-04] MEDS ORDERED: KETOROLAC 15 MG/ML 1 ML VIAL IM STA (16:36)
[2021-09-04] MEDS: HYDROcodone/APAP 5-325MG 1 EACH TAB PO PRN ×2 (17:10→22:28)
[2021-09-04] MEDS: carvediloL 12.5 MG TAB PO SCH (20:35)
[2021-09-04] MEDS: FAMOTIDINE 20 MG TAB PO SCH (20:35)
[2021-09-04] MEDS: lamoTRIgine 25 MG TAB PO SCH (20:35)
[2021-09-04] MEDS: ZONISAMIDE 100 MG CAP PO SCH (20:35)
[2021-09-04] MEDS ORDERED: QUEtiapine 100 MG TAB PO SCH (21:00)
[2021-09-04] MEDS ORDERED: ATORVASTATIN 80 MG TAB PO SCH (21:00)
[2021-09-04 22:19] VITALS: RESP 16
--- NOTE | 2021-09-05 00:43 | P.CNNES ---
History of Present Illness Consult date: 09/04/21 Requesting physician: Freda Banegas Reason for Consult: Recurrent seizures History of Present Illness: This is a telemedicine neurology consultation performed today on 09/04/2021. 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 As per EMS flow sheet when they a rrived, found patient on the couch postictal after having a seizure that according to his friend lasted about 6-7 minutes. Patient has history of seizure disorder. Patient's friend stated that he took his nighttime seizure medication just prior to the start of it. Upon EMS arrival, he was postictal and not responsive. He started having more seizure activity and was given 10 mg of Versed IM which stopped seizure activity. EKG shows sinus rhythm. The heart rate of 60. Oxygen saturation was 93%. Blood pressure 144/82, pulse is 61, blood sugar 103. Patient states that with his seizure, he was sitting in the couch, therefore did not hit his head. Patient states he gets seizures about once a month. Lately he has been having seizures, that are occurring 2 in a row. He follows up with Dr. Lai. He states that he gets a warning signs of numbness of the right arm lasting for a minute before he has a seizure. The seizure only involves the right side of the body. He sometimes gets loss of control of urine, but never had any tongue bite. He lives by himself, has no children. He smokes one pack per day for last 30 years. Denies any alcohol use, marijuana or drugs. Patient has been seen by myself the last time on 02/14/2021 for breakthrough seizures. 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 Patient follows up with Dr. Ramirez. Patient has previously tried Vimpat and Lamictal. On the last time he was seen in the hospital, he was taking Lamictal 225 mg twice a day and zonisamide 200 mg twice a day. His zonisamide level was therapeutic 22 (10-40), and Lamictal level was 7.7 (2-15). On review of records, it appears patient was previously on Dilantin 200 mg 3 times a day back in April 2017. He also was on Vimpat 150 mg twice a day in the past. He was started on Lamictal on by Dr. Muhammad. Patient's blood test shows normal WBC hemoglobin 13.2, platelets 2:30. Left right side normal, BUN 15 creatinine 1.26. Hepatic panel normal, urine drug screen positive for tricyclic antidepressant. Patient's previous CT head from 02/21/2021 showed stable linear hyperdensity appears to localize to the posterior central sulcus or motor cortex adjacent to the central gyrus. 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 Tiny high left-sided subdural chronic hematoma or hygroma redemonstrated. Review of Systems Negative except as mentioned in HPI. Past Medical History Past Medical History: CVA/TIA, GERD/Reflux, Hyperlipidemia, Hypertension, Pneumonia, Seizure Disorder Additional Past Medical History / Comment(s): L hemorrhagic stroke-R sided weakness and has had occasions of increased irritability/agitation/isolation, multiple mental health unit admissions with [facility] with major depression/suicidal ideations without plan/acute anxiety, uncontrolled seizures, L pneumothorax with chest tube, migraines-has used other people's narcotics in the past per past medical record but pt denies, benign rectal polyp, etoh last drink more than 10 years ago. History of Any Multi-Drug Resistant Organisms: None Reported Past Surgical History: No Surgical Hx Reported Additional Past Surgical History / Comment(s): COLONOSCOPY POLYPS REMOVED-NEG, bilateral cataract removal, R testicular surgery as a little boy. Past Anesthesia/Blood Transfusion Reactions: No Reported Reaction Additional Past Anesthesia/Blood Transfusion Reaction / Comment(s): Pt has never recieved blood. Past Psychological History: Anxiety, Bipolar, Depression, Panic Disorder Additional Psychological History / Comment(s): Pt normally resides alone. He uses a walker prn. He does not drive, his friend, Charles, takes him to [facility]. He gets his prescriptions thru [facility] in blister packs and normally can manage his meds from there but not the past few days, his friend has been giving him his prescribed medications. Pt's friend, Charles, states pt takes prescription drugs like xanax that are not prescribed to him. She states pt's mother just recently gave him some xanax. 09/04/21 Pt denies taking prescription drugs that are not prescribed to him currently. Smoking Status: Current every day smoker Past Alcohol Use History: None Reported Additional Past Alcohol Use History / Comment(s): Pt has hx of alcohol abuse but has not drank in 10 yrs except for one slip on his birthday 2 yrs ago. He is 1ppd smoker Past Drug Use History: None Reported Additional Drug Use History / Comment(s): Pt has hx of polysubstance abuse per PMR-Adderall/xanax/flexeril. Pt's friend states he has polysubstance abuse with prescription meds/not always his own prescriptions. - Past Family History Father Family Medical History: Cancer, Hyperlipidemia, Hypertension, Prostate Disorder Additional Family Medical History / Comment(s): PROSTATE CA Mother Family Medical History: Osteoarthritis (OA) Additional Family Medical History / Comment(s): MOM IS 71 Medications and Allergies Home Medications Medication Instructions Recorded Confirmed Type Magnesium Oxide [Mag-Ox] 400 mg PO DAILY #28 tab 11/05/18 09/04/21 Rx Famotidine [Pepcid] 20 mg PO BID #60 tab 11/21/18 09/04/21 Rx lamoTRIgine [LaMICtal] 200 mg PO BID tab 01/16/20 09/04/21 Rx Atorvastatin [Lipitor] 80 mg PO HS #30 tab 07/13/21 09/04/21 Rx Baclofen [Lioresal] 20 mg PO TID #15 tab 07/13/21 09/04/21 Rx QUEtiapine FUMARATE [SEROquel] 300 mg PO HS #30 tab 07/13/21 09/04/21 Rx Tamsulosin [Flomax] 0.4 mg PO DAILY #30 cap 07/13/21 09/04/21 Rx Zonisamide 100 mg PO BID #60 capsule 07/13/21 09/04/21 Rx amLODIPine [Norvasc] 5 mg PO DAILY #30 tab 07/13/21 09/04/21 Rx carvediloL [Coreg] 25 mg PO BID #60 tablet 07/13/21 09/04/21 Rx lamoTRIgine [LaMICtal] 25 mg PO BID #60 tab 07/13/21 09/04/21 Rx Aspirin EC [Ecotrin Low Dose] 81 mg PO DAILY 09/04/21 09/04/21 History Allergies Allergy/AdvReac Type Severity Reaction Status Date / Time No Known Allergies Allergy Verified 09/04/21 12:08 Physical Examination - Vital Signs Vital Signs: Vital Signs Temp Pulse Pulse Pulse Resp BP BP 09/04/21 07:37 09/04/21 05:41 97.8 F 49 L 16 114/69 09/04/21 02:44 98.3 F 60 18 147/82 09/04/21 01:14 97.6 F 59 L 18 132/83 09/03/21 22:24 98 F 62 19 143/98 Pulse Ox 09/04/21 07:37 94 L 09/04/21 05:41 97 09/04/21 02:44 100 09/04/21 01:14 100 09/03/21 22:24 98 Intake and Output 09/03/21 09/04/21 09/04/21 22:59 06:59 14:59 Intake Total 300 Balance 300 Intake: Intake, IV Titration 300 Amount Sodium Chloride 0.9% 1, 300 000 ml @ 75 mls/hr IV . [id number] [facility] Rx#:[id number] Other: Voiding Method Toilet # Voids 1 Weight 90.718 kg 90.718 kg Patient is a middle aged male, in no acute distress. Patient is alert awake oriented to time place and person. Patient knows it is August 2011 through that he is in [place] in [place] in [facility]. Speech and language functions are normal. Attention, concentration and fund of knowledge is adequate. On cranial nerve examination, pupils are round and reacting to light, visual callejas are full on confrontation, extraocular muscles are intact with no nystagmus. Face is symmetric, tongue protrudes to the midline. Palatal elevation and sensation normal, hearing and shoulder shrug normal, facial sensa tion normal. Shoulder shrug normal. On muscle strength testing, there is no pronator drift and the strength is slightly weak in the right upper extremity as compared to the left. The right senior hardware design engineer is 4, left 5. In the lower extremity right hip flexion is slightly weaker as compared to the left. Right foot is also slightly weaker than the left. Deep tendon reflexes are diminished and plantars probable upon the right, downgoing left. Sensory to touch is equal with no neglect. Cerebellar function showed mild ataxia for [id number] testing on the right. Tone is increased on the right and bulk of muscles normal. Gait not checked. On general examination, there is no carotid bruit or murmur, S1-S2 audible. Abdomen is soft nontender. No organomegaly, bowel sounds present. Chest is c lear. Peripheral pulses are present. No edema. Results - Laboratory Findings CBC and BMP: 09/03/21 23:04 09/03/21 23:04 Abnormal Lab Findings: Abnormal Labs 09/03/21 09/03/21 09/04/21 23:04 23:04 01:26 RBC 3.80 L MCV 102.6 H Lymphocytes # 0.8 L Chloride 112 H Carbon Dioxide 18 L Creatinine 1.26 H Glucose 70 L POC Glucose (mg/dL) Calcium 8.3 L Total Protein 6.1 L U Tricyclic Antidepress Detected H 09/04/21 05:51 RBC MCV Lymphocytes # Chloride Carbon Dioxide Creatinine Glucose POC Glucose (mg/dL) 115 H Calcium Total Protein U Tricyclic Antidepress Assessment and Plan Assessment: * Post stroke epilepsy. Patient came with breakthrough seizure. Exact cause is uncertain. * History of left parietal hemorrhagic stroke in 2014 with mild residual right hemiparesis. * History of tobacco use * Hypertension * Depression Plan: * Continue Lamictal 275 mg twice a day. * Continue zonisamide 100 mg twice a day. * Patient has previously tried Dilantin, Keppra and Vimpat. We will now start him on Trileptal 150 mg twice a day. He should follow-up with his neurologist in 1-2 weeks for a follow-up. Consider taking off zonisamide, as it has not been effective. Patient was informed to stop medication if he gets any rash. * Patient probably should undergo evaluation at comprehensive epilepsy center for identification of the epileptic focus, and consideration for vagal nerve stimulator or possible epilepsy surgery, if possible. * Patient is aware of [place] state law of no driving unless seizure free for 6 months, climbing ladders or operating dangerous machinery or unsupervised swimming. * Neurologically clear for discharge, if he remains stable overnight. * Thank you for the consult.
--- NOTE | 2021-09-05 03:08 | P.HPIM ---
History of Present Illness H&P Date: 09/04/21 Chief Complaint: Seizures Patient is a 55-year-old male with a known history of CVA/TIA with right-sided weakness, hypertension, hyperlipidemia, seizure disorder and a prior history of left hemorrhagic stroke, depression/suicidal ideation, anxiety, currently everyday smoker, anxiety/depression and bipolar disorder and panic disorder and other multiple medical problems presents to ER due to seizures. Patient states that he was at home and suddenly started having generalized shaking movement. Patient did have another seizure episode after half an hour. Which is unusual for for him as per patient. Patient's girlfriend called the ER. Patient states that he woke up in the ER. Patient was given 10 mg of Versed IM which stopped seizure activity. EKG showed normal sinus rhythm. Patient was given Keppra loading dose in the ER and was admitted to hospital. Patient is currently taking Lamictal and zonisamide at home. Laboratory test showed WBC 5.6 hemoglobin 13.1 platelets 230 Sodium 137 potassium 3.8 chloride 112 bicarb is 18 BUN 15 and creatinine 1.26 and UDS is positive for tricyclic antidepressants. Patient states that he had a fall few weeks ago and since then he has been having right-sided rib cage pain. Chest x-ray on 07/26/2021 showed negative right rib exam. Review of Systems Constitutional: Patient denies any fever or chills . no Generalized weakness. Abdomen: Patient denied any nausea or vomiting or abd. pain Cardiovascular: Patient denies any chest pain or short of breath no palpitations. Respiratory: patient denied any cough is from production. No shortness of breath Neurologic: Patient denied any numbness or tingling headache. Musculoskeletal: Patient denies any complaints of joint swelling or deformity. rt rib pain Skin: Negative Psychiatric: Negative Endocrine: No heat or cold intolerance. No recent weight gain. Genitourinary: No dysuria or hematuria. All other 14 point ROS negative except the above Past Medical History Past Medical History: CVA/TIA, GERD/Reflux, Hyperlipidemia, Hypertension, Pneumonia, Seizure Disorder Additional Past Medical History / Comment(s): L hemorrhagic stroke-R sided weakness and has had occasions of increased irritability/agitation/isolation, multiple mental health unit admissions with most recent on 10/24/18 [facility] with major depression/suicidal ideations without plan/acute anxiety, uncontrolled seizures, L pneumothorax with chest tube, migraines-has used other people's narcotics in the past per past medical record but pt denies, benign rectal polyp, etoh last drink more than 10 years ago. History of Any Multi-Drug Resistant Organisms: None Reported Past Surgical History: No Surgical Hx Reported Additional Past Surgical History / Comment(s): COLONOSCOPY POLYPS REMOVED-NEG, bilateral cataract removal, R testicular surgery as a little boy. Past Anesthesia/Blood Transfusion Reactions: No Reported Reaction Additional Past Anesthesia/Blood Transfusion Reaction / Comment(s): Pt has never recieved blood. Past Psychological History: Anxiety, Bipolar, Depression, Panic Disorder Additional Psychological History / Comment(s): Pt normally resides alone. He uses a walker prn. He does not drive, his friend, Charles, takes him to [employer]. He gets his prescriptions thru [facility] in blister packs and normally can manage his meds from there but not the past few days, his friend has been giving him his prescribed medications. Pt's friend, Charles, states pt takes prescription drugs like xanax that are not prescribed to him. She states pt's mother just recently gave him some xanax. 09/04/21 Pt denies taking prescription drugs that are not prescribed to him currently. Smoking Status: Current every day smoker Past Alcohol Use History: None Reported Additional Past Alcohol Use History / Comment(s): Pt has hx of alcohol abuse but has not drank in 10 yrs except for one slip on his birthday 1 yrs ago. He is 1ppd smoker Past Drug Use History: None Reported Additional Drug Use History / Comment(s): Pt has hx of polysubstance abuse per PMR-Adderall/xanax/flexeril. Pt's friend states he has polysubstance abuse with prescription meds/not always his own prescriptions. - Past Family History Father Family Medical History: Cancer, Hyperlipidemia, Hypertension, Prostate Disorder Additional Family Medical History / Comment(s): PROSTATE CA Mother Family Medical History: Osteoarthritis (OA) Additional Family Medical History / Comment(s): MOM IS 71 Medications and Allergies Home Medications Medication Instructions Recorded Confirmed Type RX: Magnesium Oxide [Mag-Ox] 400 mg PO DAILY #28 tab 11/05/18 09/04/21 Rx RX: Famotidine [Pepcid] 20 mg PO BID #60 tab 11/21/18 09/04/21 Rx RX: lamoTRIgine [LaMICtal] 200 mg PO BID tab 01/16/20 09/04/21 Rx QUEtiapine FUMARATE [SEROquel] 300 mg PO HS #30 tab 07/13/21 09/04/21 Rx RX: Atorvastatin [Lipitor] 80 mg PO HS #30 tab 07/13/21 09/04/21 Rx RX: Baclofen [Lioresal] 20 mg PO TID #15 tab 07/13/21 09/04/21 Rx RX: Tamsulosin [Flomax] 0.4 mg PO DAILY #30 cap 07/13/21 09/04/21 Rx RX: Zonisamide 100 mg PO BID #60 capsule 07/13/21 09/04/21 Rx RX: amLODIPine [Norvasc] 5 mg PO DAILY #30 tab 07/13/21 09/04/21 Rx RX: carvediloL [Coreg] 25 mg PO BID #60 tablet 07/13/21 09/04/21 Rx RX: lamoTRIgine [LaMICtal] 25 mg PO BID #60 tab 07/13/21 09/04/21 Rx Aspirin EC [Ecotrin Low Dose] 81 mg PO DAILY 09/04/21 09/04/21 History Allergies Allergy/AdvReac Type Severity Reaction Status Date / Time No Known Allergies Allergy Verified 09/04/21 12:08 Physical Exam Vitals: Vital Signs Temp Pulse Pulse Pulse Resp BP BP 09/04/21 07:37 09/04/21 05:41 97.8 F 49 L 16 114/69 09/04/21 02:44 98.3 F 60 18 147/82 09/04/21 01:14 97.6 F 59 L 18 132/83 09/03/21 22:24 98 F 62 19 143/98 Pulse Ox 09/04/21 07:37 94 L 09/04/21 05:41 97 09/04/21 02:44 100 09/04/21 01:14 100 09/03/21 22:24 98 Intake and Output 09/03/21 09/04/21 09/04/21 22:59 06:59 14:59 Intake Total 300 Balance 300 Intake: Intake, IV Titration 300 Amount Sodium Chloride 0.9% 1, 300 000 ml @ 75 mls/hr IV . [id number] [facility] Rx#:[id number] Other: Voiding Method Toilet Toilet # Voids 1 Weight 90.718 kg 90.718 kg PHYSICAL EXAMINATION: Patient is lying in the bed comfortably, no acute distress, awake alert and oriented.. HEENT: Normocephalic. Neck is supple. Pupils reactive. Nostrils clear. Oral cavity is moist. Neck reveals no JVD, carotid bruits, or thyromegaly. CHEST EXAMINATION: Trachea is central. Symmetrical expansion. Right lower rib cage tenderness. Lung callejas clear to auscultation and percussion. CARDIAC: Normal S1, S2 with no gallops. No murmurs ABDOMEN: Soft. Bowel sounds present. Nontender. No organomegaly. No abdominal bruits. Extremities: reveal no edema. No clubbing or cyanosis Neurologically awake, alert, oriented x3. Patient does have right-sided weakness. Skin: No rash or skin lesions. Psychiatric: Coperative. Nonsuicidal, anxious. Musculoskeletal: No joint swelling or deformity. Results CBC & Chem 7: 09/03/21 23:04 09/03/21 23:04 Labs: Abnormal Lab Results - Last 24 Hours (Table) 09/03/21 09/03/21 09/04/21 Range/Units 23:04 23:04 01:26 RBC 3.80 L (4.30-5.90) m/uL MCV 102.6 H (80.0-100.0) fL Lymphocytes # 0.8 L (1.0-4.8) k/uL Chloride 112 H (98-107) mmol/L Carbon Dioxide 18 L (22-30) mmol/L Creatinine 1.26 H (0.66-1.25) mg/dL Glucose 70 L (74-99) mg/dL POC Glucose (mg/dL) (70-110) mg/dL Calcium 8.3 L (8.4-10.2) mg/dL Total Protein 6.1 L (6.3-8.2) g/dL U Tricyclic Antidepress Detected H (NotDetected) 09/04/21 Range/Units 05:51 RBC (4.30-5.90) m/uL MCV (80.0-100.0) fL Lymphocytes # (1.0-4.8) k/uL Chloride (98-107) mmol/L Carbon Dioxide (22-30) mmol/L Creatinine (0.66-1.25) mg/dL Glucose (74-99) mg/dL POC Glucose (mg/dL) 115 H (70-110) mg/dL Calcium (8.4-10.2) mg/dL Total Protein (6.3-8.2) g/dL U Tricyclic Antidepress (NotDetected) Thrombosis Risk Factor Assmnt - Choose All That Apply Any of the Below Risk Factors Present?: Yes Each Factor Represents 1 point: Age 41-60 years Other Risk Factors: No Other congenital or acquired thrombophilia - If yes, enter type in comment: No Thrombosis Risk Factor Assessment Total Risk Factor Score: 1 Thrombosis Risk Factor Assessment Level: Low Risk Assessment and Plan Assessment: Acute breakthrough seizures. History of left parietal hemorrhagic stroke in 2014 with right-sided weakness. Right lower rib cage pain. GERD Hypertension Hyperlipidemia Anxiety/depression, bipolar disorder and panic disorder Currently everyday smoker DVT prophylax with heparin subcu Plan: Patient (with precautions and fall precautions. Started back on Lamictal and zonisamide. Patient was started on Trileptal as per neurology recommendations. Patient will need to follow-up with his neurologist and evaluation at [facility]. Continue to monitor closely. Patient will be continued pain management for right lower rib cage pain. Follow-up chest x-ray. Encourage incentive spirometry. Continue with home medications. Anticipate discharge tomorrow. Time with Patient: Greater than 30
[2021-09-05] MEDS: carvediloL 12.5 MG TAB PO SCH (08:28)
[2021-09-05] MEDS: lamoTRIgine 100 MG TAB PO SCH (08:28)
[2021-09-05] MEDS: FAMOTIDINE 20 MG TAB PO SCH (08:29)
[2021-09-05] MEDS: lamoTRIgine 25 MG TAB PO SCH (08:29)
[2021-09-05] MEDS: ZONISAMIDE 100 MG CAP PO SCH (08:30)
[2021-09-05] MEDS: HEPARIN SODIUM,PORCINE/PF 5,000 UNIT/0.5 ML SYRINGE SQ SCH (08:32)
[2021-09-05] MEDS: HYDROcodone/APAP 5-325MG 1 EACH TAB PO PRN (08:39)
[2021-09-05 08:44] LABS: Basophils # (A) 0.06 X 10*3/uL (0.00-0.10); Basophils % (A) 1.4 %; Eosinophils # (A) 0.14 X 10*3/uL (0.04-0.35); Eosinophils % (A) 3.2 %; HCT 35.3 % (39.6-50.0); HGB 11.6 g/dL (13.0-17.0); Immature Grans, Automated 0.2 %; Lymphocytes # (A) 1.72 X 10*3/uL (0.90-5.00); Lymphocytes % (A) 39.6 %; MCHC 32.9 g/dL (32.0-37.0); MCV 100.3 fL (80.0-97.0); Mean Platelet Volume 10.8 fL (9.5-12.2); Monocytes # (A) 0.44 X 10*3/uL (0.20-1.00); Monocytes % (A) 10.1 %; NRBC Per 100 WBC 0 /100 WBCS (0.0-0.0); Neutrophils # (A) 1.97 X 10*3/uL (1.80-7.70); Neutrophils % (A) 45.5 %; Platelet Count 220 X 10*3/uL (140-440); RBC 3.52 X 10*6/uL (4.40-5.60); RDW 13.8 % (11.5-14.5); WBC 4.34 X 10*3/uL (4.50-10.00)
--- NOTE | 2021-09-05 08:48 | XR ---
EXAMINATION TYPE: XR chest 2V DATE OF EXAM: 09/05/2021 COMPARISON: Chest x-ray 07/26/2021 HISTORY: Right lower rib pain TECHNIQUE: Frontal and lateral views of the chest are obtained. FINDINGS: There is no focal air space opacity, pleural effusion, or pneumothorax seen. The cardiac silhouette size is within normal limits. The osseous structures are stable. IMPRESSION: No acute cardiopulmonary process. Consider bone scan for increased sensitivity.
[2021-09-05] MEDS ORDERED: OXcarbazepine 150 MG TAB PO SCH (09:00)
[2021-09-05] MEDS ORDERED: TAMSULOSIN 0.4 MG CAP.ER.24H PO SCH (09:00)
[2021-09-05] MEDS ORDERED: amLODIPine 5 MG TAB PO SCH (09:00)
[2021-09-05] MEDS ORDERED: ASPIRIN 81 MG PO SCH (09:00)
[2021-09-05 09:01] LABS: African American GFR (CKD) 77.3 (60.0-200.0); Anion Gap 9.6 mmol/L (10.00-18.00); BUN/Creat Ratio 11.83 Ratio (12.00-20.00); Blood Urea Nitrogen 14.2 mg/dL (9.0-27.0); Calcium 8.6 mg/dL (8.7-10.3); Carbon Dioxide 18.4 mmol/L (20.0-27.5); Non-African American GFR(CKD) 66.7 (60.0-200.0); Potassium 3.7 mmol/L (3.5-5.5)
[2021-09-05 11:44] VITALS: TEMP 98.3
[2021-09-05 11:46] VITALS: BP 149/75; PULSE 58
[2021-09-05 13:27] VITALS: BMI 27.1
--- NOTE | 2021-09-06 10:03 | P.DS ---
Providers Date of admission: 09/04/21 00:46 Expected date of discharge: 09/05/21 Attending physician: Shivani Durbin Consults: 09/04/21 00:46 Consult Physician Urgent Consulting Provider: Soniya Lancaster Consult Reason/Comments: recurrent seizures Do you want consulting provider notified?: Yes, Notify in am Primary care physician: Jazile Lockhart Hospital Course: Final diagnosis Acute breakthrough seizures History of left parietal hemorrhagic stroke in 2015 with right-sided weakness. Right lower rib cage pain. GERD Hypertension Hyperlipidemia Anxiety/depression, bipolar disorder and panic disorder Currently everyday smoker DVT prophylaxis Full code Discharge disposition Patient is being discharged in a stable condition with guarded prognosis to home. Patient will follow-up with Dr. Lockhart in the outpatient setting upon discharge. Patient is to allow up with neurology Dr. Lai as scheduled next week. Patient will continue on Trileptal twice a day . Total time taken is greater than 35 minutes. Hospital course This is a 55-year-old male who was recently admitted with seizure activity. Patient has been reportedly having seizures and follows with neurology in the outpatient setting. Patient has been on Keppra and Lamictal and continues to have seizures. Patient was seen and evaluated by neurology and started on Trileptal and will follow-up with his neurologist Dr. Lai next week. No further seizure-like activity and patient is anxious and asking to go home. Patient has been cleared by neurology to follow-up in the outpatient setting. Currently no reports of chest pain, shortness of breath, or palpitations. Patient is afebrile. No reports of nausea or vomiting and patient is tolerating diet. Patient will be discharged home today. Guarded prognosis. On exam vital signs are stable. Cardio S1, S2 are muffled. Respiratory system shows diminished breath sounds at the bases with no wheezing or rhonchi noted. Abdomen is soft and nontender. Nervous system shows no focal deficits. Please refer to medication reconciliation sheet for a list of medications. The impression and plan of care has been dictated by Freda Ellis, Nurse Practitioner as directed. Dr. Bhavin MD I have performed a history and examination and MDM of this patient, discussed the same with the dictator, and agree with the dictator's assessment and plan as written ,documented as a scribe. Based on total visit time, I have performed more than 50% of the visit. Patient Condition at Discharge: Stable Plan - Discharge Summary Discharge Rx Participant: No New Discharge Prescriptions: New OXcarbazepine [Trileptal] 150 mg PO BID 30 Days #60 tab Acetaminophen Tab [Tylenol] 650 mg PO Q6HR PRN #30 tab PRN Reason: Fever And/ Or Pain Continue Magnesium Oxide [Mag-Ox] 400 mg PO DAILY #28 tab Famotidine [Pepcid] 20 mg PO BID #60 tab lamoTRIgine [LaMICtal] 200 mg PO BID tab Tamsulosin [Flomax] 0.4 mg PO DAILY #30 cap lamoTRIgine [LaMICtal] 25 mg PO BID #60 tab carvediloL [Coreg] 25 mg PO BID #60 tablet amLODIPine [Norvasc] 5 mg PO DAILY #30 tab Atorvastatin [Lipitor] 80 mg PO HS #30 tab Zonisamide 100 mg PO BID #60 capsule QUEtiapine FUMARATE [SEROquel] 300 mg PO HS #30 tab Aspirin EC [Ecotrin Low Dose] 81 mg PO DAILY Discontinued Baclofen [Lioresal] 20 mg PO TID #15 tab Discharge Medication List Magnesium Oxide [Mag-Ox] 400 mg PO DAILY #28 tab 11/05/18 [Rx] Famotidine [Pepcid] 20 mg PO BID #60 tab 11/21/18 [Rx] lamoTRIgine [LaMICtal] 200 mg PO BID tab 01/16/20 [Rx] Atorvastatin [Lipitor] 80 mg PO HS #30 tab 07/13/21 [Rx] QUEtiapine FUMARATE [SEROquel] 300 mg PO HS #30 tab 07/13/21 [Rx] Tamsulosin [Flomax] 0.4 mg PO DAILY #30 cap 07/13/21 [Rx] Zonisamide 100 mg PO BID #60 capsule 07/13/21 [Rx] amLODIPine [Norvasc] 5 mg PO DAILY #30 tab 07/13/21 [Rx] carvediloL [Coreg] 25 mg PO BID #60 tablet 07/13/21 [Rx] lamoTRIgine [LaMICtal] 25 mg PO BID #60 tab 07/13/21 [Rx] Aspirin EC [Ecotrin Low Dose] 81 mg PO DAILY 09/04/21 [History] Acetaminophen Tab [Tylenol] 650 mg PO Q6HR PRN #30 tab 09/05/21 [Rx] OXcarbazepine [Trileptal] 150 mg PO BID 30 Days #60 tab 09/05/21 [Rx] Follow up Appointment(s)/Referral(s): Jaziel Lockhart MD [Primary Care Provider] - 09/07/21 4:20 pm Merissa Lai MD [REFERRING] - 09/14/21 9:50 am Patient Instructions/Handouts: Seizure/Epilepsy Discharge Instructions & Follow-Up, Acetaminophen (By mouth), Oxcarbazepine (By mouth) Activity/Diet/Wound Care/Special Instructions: Activity Limited until follow-up Follow-up with primary care provider on discharge Recommend follow-up labs for Lamictal and Trileptal with neurology Continue taking medications as prescribed Follow-up with neurology in 1-2 weeks Discharge Disposition: HOME SELF-CARE
== END 2021-09-05 14:38 | disposition home or self-care (01) | DRG 100 ==
LOC: EC 22:22 → 5NMEDONC 09-04 00:46
PROVIDERS: ADMIT Internal Medicine; ATTEND Internal Medicine
DX: G40.909 Epilepsy, unspecified, not intractable, without status epilepticus (principal); I62.03 Nontraumatic chronic subdural hemorrhage; I69.251 Hemiplegia and hemiparesis following other nontraumatic intracranial hemorrhage affecting right dominant side; E78.5 Hyperlipidemia, unspecified; F17.210 Nicotine dependence, cigarettes, uncomplicated; F31.9 Bipolar disorder, unspecified; F41.0 Panic disorder [episodic paroxysmal anxiety]; I10 Essential (primary) hypertension; K21.9 Gastro-esophageal reflux disease without esophagitis; R27.0 Ataxia, unspecified; F41.9 Anxiety disorder, unspecified; W19.XXXA Unspecified fall, initial encounter; R07.81 Pleurodynia; F10.11 Alcohol abuse, in remission; F19.11 Other psychoactive substance abuse, in remission; G43.909 Migraine, unspecified, not intractable, without status migrainosus; I69.398 Other sequelae of cerebral infarction; Z79.82 Long term (current) use of aspirin; Z79.899 Other long term (current) drug therapy; Z71.3 Dietary counseling and surveillance; Z98.42 Cataract extraction status, left eye; Z98.41 Cataract extraction status, right eye; Z87.01 Personal history of pneumonia (recurrent); Z91.51 Personal history of suicidal behavior; Z87.09 Personal history of other diseases of the respiratory system; Z98.890 Other specified postprocedural states; Z86.010 Personal history of colon polyps; Z80.42 Family history of malignant neoplasm of prostate; Z82.49 Family history of ischemic heart disease and other diseases of the circulatory system; Z82.61 Family history of arthritis
CPT/HCPCS: 36415; 71046; 80048; 80053; 80306; 83735; 85025; 93005; 94760; 96361; 96374; 99285

== ENCOUNTER 2021-10-09 14:42 | Emergency (ER) | payer OTHER ==
[2021-10-09] MEDS ORDERED: levETIRAcetam IV 1,000 MG in SALINE 1 100ML.BAG IVPB STA (15:14)
[2021-10-09] MEDS ORDERED: OXcarbazepine 150 MG TAB PO STA (15:15)
[2021-10-09] MEDS ORDERED: lamoTRIgine 100 MG TAB PO STA (15:15)
[2021-10-09] MEDS ORDERED: lamoTRIgine 25 MG TAB PO STA (15:15)
[2021-10-09] MEDS ORDERED: ZONISAMIDE 100 MG CAP PO STA (15:15)
[2021-10-09] MEDS ORDERED: SODIUM CHLORIDE 0.9% 1,000 ML IV STA (15:15)
[2021-10-09 15:26] LABS: Basophils # (A) 0.1 k/uL (0-0.2); Basophils % (A) 2 %; Eosinophils # (A) 0.2 k/uL (0-0.7); Eosinophils % (A) 3 %; HGB 13.1 gm/dL (13.0-17.5); Lymphocytes % (A) 16 %; MCH 32.2 pg (25.0-35.0); MCV 100.5 fL (80.0-100.0); Mean Platelet Volume 8.1; Monocytes # (A) 0.4 k/uL (0-1.0); Monocytes % (A) 6 %; Neutrophils # (A) 4.2 k/uL (1.3-7.7); Neutrophils % (A) 72 %; Platelet Count 248 k/uL (150-450); RBC 4.07 m/uL (4.30-5.90); RDW 12.6 % (11.5-15.5); WBC 5.9 k/uL (3.8-10.6)
[2021-10-09 15:37] LABS: ALT 14 U/L (4-49); AST 19 U/L (17-59); African American GFR (CKD) >90 (>60 ml/min/1.73 sqM); Albumin 3.6 g/dL (3.5-5.0); Alcohol <10 mg/dL; Alkaline Phosphatase 72 U/L (38-126); Anion Gap 4 mmol/L; Blood Urea Nitrogen 20 mg/dL (9-20); Calcium 8.5 mg/dL (8.4-10.2); Carbon Dioxide 21 mmol/L (22-30); Chloride 111 mmol/L (98-107); Glucose 97 mg/dL (74-99); Magnesium 1.9 mg/dL (1.6-2.3); Non-African American GFR(CKD) 81 (>60 ml/min/1.73 sqM); Sodium 136 mmol/L (137-145); Total Bilirubin 0.7 mg/dL (0.2-1.3)
[2021-10-09 15:44] LABS: Potassium 3.9 mmol/L (3.5-5.1)
--- NOTE | 2021-10-09 16:17 | ED ---
General Adult HPI - General Chief complaint: Seizure Stated complaint: Seizure Time Seen by Provider: 10/09/21 14:44 Source: patient, RN notes reviewed, old records reviewed Mode of arrival: ambulatory Limitations: no limitations - History of Present Illness Initial comments: Patient is a 56-year-old male with past medical history remarkable for prior CVA with residual right-sided numbness, as well as right-sided seizures post CVA, hypertension who presents emergency Department after having a breakthrough seizure. Patient is noncompliant with his seizure medications this morning as he was at a [facility] yesterday and forgot to bring them with him. Was having focal right arm and right side of face seizures witnessed by EMS. They provided him with 2 mg of IV Versed and symptoms stopped. No further symptoms. These were typical seizures for the patient. Is due to follow-up with his neurologist soon. Denies any acute complaints at this time. Presents for further evaluation. States some of his antiepileptic medications he has not been very compliant with because he doesn't like how they make him feel. - Related Data Home Medications Medication Instructions Recorded Confirmed Aspirin EC [Ecotrin Low Dose] 81 mg PO DAILY 09/04/21 09/04/21 Previous Rx's Medication Instructions Recorded Magnesium Oxide [Mag-Ox] 400 mg PO DAILY #28 tab 11/05/18 Famotidine [Pepcid] 20 mg PO BID #60 tab 11/21/18 lamoTRIgine [LaMICtal] 200 mg PO BID tab 01/16/20 Atorvastatin [Lipitor] 80 mg PO HS #30 tab 07/13/21 QUEtiapine FUMARATE [SEROquel] 300 mg PO HS #30 tab 07/13/21 Tamsulosin [Flomax] 0.4 mg PO DAILY #30 cap 07/13/21 Zonisamide 100 mg PO BID #60 capsule 07/13/21 amLODIPine [Norvasc] 5 mg PO DAILY #30 tab 07/13/21 carvediloL [Coreg] 25 mg PO BID #60 tablet 07/13/21 lamoTRIgine [LaMICtal] 25 mg PO BID #60 tab 07/13/21 Acetaminophen Tab [Tylenol] 650 mg PO Q6HR PRN #30 tab 09/05/21 OXcarbazepine [Trileptal] 150 mg PO BID 30 Days #60 tab 09/05/21 Allergies Allergy/AdvReac Type Severity Reaction Status Date / Time No Known Allergies Allergy Verified 10/09/21 14:54 Review of Systems ROS Statement: Those systems with pertinent positive or pertinent negative responses have been documented in the HPI. Review of Systems: CONST: Denies fever EYES: Denies blurry vision ENT: Denies nasal congestion C/V: Denies Chest pain RESP: Denies shortness of breath GI: Denies abdominal pain : Denies dysuria SKIN: Denies rash. MSK: Denies joint pain. NEURO: Denies headache ROS Other: All systems not noted in ROS Statement are negative. Past Medical History Past Medical History: CVA/TIA, GERD/Reflux, Hyperlipidemia, Hypertension, Pneumonia, Seizure Disorder Additional Past Medical History / Comment(s): L hemorrhagic stroke-R sided weakness and has had occasions of increased irritability/agitation/isolation, multiple mental health unit admissions with most recent on 10/24/18 [facility] with major depression/suicidal ideations without plan/acute anxiety, uncontrolled seizures, L pneumothorax with chest tube, migraines-has used other people's narcotics in the past per past medical record but pt denies, benign rectal polyp, etoh last drink more than 10 years ago. History of Any Multi-Drug Resistant Organisms: None Reported Past Surgical History: No Surgical Hx Reported Additional Past Surgical History / Comment(s): COLONOSCOPY POLYPS REMOVED-NEG, bilateral cataract removal, R testicular surgery as a little boy. Past Anesthesia/Blood Transfusion Reactions: No Reported Reaction Additional Past Anesthesia/Blood Transfusion Reaction / Comment(s): Pt has never recieved blood. Past Psychological History: Anxiety, Bipolar, Depression, Panic Disorder Smoking Status: Current every day smoker Past Alcohol Use History: None Reported Past Drug Use History: None Reported - Past Family History Father Family Medical History: Cancer, Hyperlipidemia, Hypertension, Prostate Disorder Additional Family Medical History / Comment(s): PROSTATE CA Mother Family Medical History: Osteoarthritis (OA) Additional Family Medical History / Comment(s): MOM IS 71 General Exam - General Exam Comments Initial Comments: General: Appears in no acute distress. HEAD: Normal with no signs of head trauma. EYES: PERRLA, EOMI, conjunctiva normal, no discharge. ENT: Hearing grossly intact, normal oropharynx. RESPIRATORY: Clear breath sounds bilaterally. No wheezes, rales, or rhonchi. C/V: Regular rate and rhythm. S1 and S2 auscultated, no edema, peripheral pulses 2+ and intact throughout ABD: Abd is soft, nontender, nondistended EXT: Normal range of motion, no obvious deformity SKIN: No rashes or lesions observed on exposed skin. NEURO: Alert and oriented x 4. Cranial nerves II-XII intact. No focal sensory or strength deficits. NIH of 0. GCS is 15. Limitations: no limitations Course Vital Signs 10/09/21 14:54 Temperature 98.2 F Pulse Rate 66 Respiratory 16 Rate Blood Pressure 145/95 O2 Sat by Pulse 96 Oximetry Medical Decision Making - Medical Decision Making Abdomen the patient's presentation and physical exam, I do believe he is experiencing a breakthrough seizure secondary to medication noncompliance. Is uncertain which medications he is still taking. Empirically he will be started given a 1 g bolus of Keppra while we attempt to figure this out. We'll obtain basic labs. No current seizure activity. Vital signs within normal limits. Seizure precautions were placed. Patient will be observed here in the department for further seizures. He was in agreement this plan. EKG showed no signs of acute ischemia, chronic first degree av block. Laboratory studies were unremarkable. After discussion with the patient's mother who presents at bedside, patient was restarted on his home antiepileptic medications and given his morning dose of Lamictal, Trileptal, Zonegran. He'll be observed for any breakthrough seizure activity. He was in agreement this plan. After 2 hours of observation here in the department, patient no further seizure s. Will be discharged home at this time. He was in agreement this plan. Recommended plan to follow-up with neurology. He does not require refills on any medications. Counseled him on proper medication complaints. I instructed the patient to follow up with their PCP in the next 1-3 days. I explained that the patient should return to the emergency department if they experience any worsening symptoms. Strict return precautions were discussed with the patient. The patient expressed understanding of these instructions. I answered all questions that the patient had. The patient was discharged home in good condition with their prescriptions and follow up information. - Lab Data Result diagrams: 10/09/21 15:16 10/09/21 15:16 Lab Results 10/09/21 10/09/21 Range/Units 15:16 15:16 WBC 5.9 (3.8-10.6) k/uL RBC 4.07 L (4.30-5.90) m/uL Hgb 13.1 (13.0-17.5) gm/dL Hct 41.0 (39.0-53.0) % MCV 100.5 H (80.0-100.0) fL MCH 32.2 (25.0-35.0) pg MCHC 32.0 (31.0-37.0) g/dL RDW 12.6 (11.5-15.5) % Plt Count 248 (150-450) k/uL MPV 8.1 Neutrophils % 72 % Lymphocytes % 16 % Monocytes % 6 % Eosinophils % 3 % Basophils % 2 % Neutrophils # 4.2 (1.3-7.7) k/uL Lymphocytes # 1.0 (1.0-4.8) k/uL Monocytes # 0.4 (0-1.0) k/uL Eosinophils # 0.2 (0-0.7) k/uL Basophils # 0.1 (0-0.2) k/uL Sodium 136 L (137-145) mmol/L Potassium 3.9 (3.5-5.1) mmol/L Chloride 111 H (98-107) mmol/L Carbon Dioxide 21 L (22-30) mmol/L Anion Gap 4 mmol/L BUN 20 (9-20) mg/dL Creatinine 1.02 (0.66-1.25) mg/dL Est GFR (CKD-EPI)AfAm >90 (>60 ml/min/1.73 sqM) Est GFR (CKD-EPI)NonAf 81 (>60 ml/min/1.73 sqM) Glucose 97 (74-99) mg/dL Calcium 8.5 (8.4-10.2) mg/dL Magnesium 1.9 (1.6-2.3) mg/dL Total Bilirubin 0.7 (0.2-1.3) mg/dL AST 19 (17-59) U/L ALT 14 (4-49) U/L Alkaline Phosphatase 72 (38-126) U/L Total Protein 6.0 L (6.3-8.2) g/dL Albumin 3.6 (3.5-5.0) g/dL Serum Alcohol <10 mg/dL - EKG Data -: EKG Interpreted by Me EKG Comments: 12-lead Electrocardiogram Interpretation Note EKG was reviewed and interpreted by myself. 12-lead ECG performed at 1447 is interpreted by me as revealing normal sinus rhythm at a rate of 65 beats per minute. [place] is normal. TN interval is 235 ms. QRS duration is 117 ms, QTc is 438 ms. Patient is an isolated T-wave inversion in lead III.. There were no ST or T wave abnormalities to suggest myocardial ischemia or injury. R wave progression across the precordium was satisfactory. By my interpretation this EKG is non-diagnostic for acute ischemia. Disposition Clinical Impression: Breakthrough seizure, Nonadherence to medication, First degree AV block Disposition: HOME SELF-CARE Condition: Good Instructions (If sedation given, give patient instructions): Seizure/Epilepsy Discharge Instructions & Follow-Up Is patient prescribed a controlled substance at d/c from ED?: No Referrals: Jaziel Lockhart MD [Primary Care Provider] - 1-2 days Time of Disposition: 16:30
[2021-10-09 16:41] VITALS: BP 132/84; PULSE 57; RESP 18; TEMP 98
== END 2021-10-09 16:42 | disposition home or self-care (01) ==
LOC: EC 14:42
DX: R56.9 Unspecified convulsions (principal); I44.0 Atrioventricular block, first degree; Z91.14 Patient's other noncompliance with medication regimen; E78.5 Hyperlipidemia, unspecified; F17.200 Nicotine dependence, unspecified, uncomplicated; I10 Essential (primary) hypertension; K21.9 Gastro-esophageal reflux disease without esophagitis; Z79.83 Long term (current) use of bisphosphonates; Z86.73 Personal history of transient ischemic attack (TIA), and cerebral infarction without residual deficits
CPT/HCPCS: 36415; 80053; 83735; 85025; 99285; 96374; 96361; G0480; J1953; 80320

== ENCOUNTER 2021-11-07 14:03 | Observation (INO) | payer OTHER ==
[2021-11-07 15:19] LABS: Basophils # (A) 0.1 k/uL (0-0.2); Basophils % (A) 1 %; Eosinophils # (A) 0.1 k/uL (0-0.7); Eosinophils % (A) 1 %; HCT 43.5 % (39.0-53.0); HGB 14.2 gm/dL (13.0-17.5); Lymphocytes # (A) 0.8 k/uL (1.0-4.8); Lymphocytes % (A) 7 %; MCH 32.6 pg (25.0-35.0); MCHC 32.6 g/dL (31.0-37.0); MCV 100.1 fL (80.0-100.0); Mean Platelet Volume 7.9; Monocytes # (A) 0.3 k/uL (0-1.0); Monocytes % (A) 3 %; Neutrophils # (A) 10.2 k/uL (1.3-7.7); Neutrophils % (A) 89 %; Platelet Count 268 k/uL (150-450); RBC 4.35 m/uL (4.30-5.90); RDW 12.6 % (11.5-15.5); WBC 11.5 k/uL (3.8-10.6)
[2021-11-07 15:39] LABS: Albumin 4.4 g/dL (3.5-5.0); Calcium 9.4 mg/dL (8.4-10.2); Magnesium 2.3 mg/dL (1.6-2.3); Potassium 4.1 mmol/L (3.5-5.1); Total Bilirubin 0.5 mg/dL (0.2-1.3); Total Protein 7.1 g/dL (6.3-8.2)
--- NOTE | 2021-11-07 15:51 | CT ---
EXAMINATION TYPE: CT brain wo con CT DLP: 1125.4 mGycm, Automated exposure control for dose reduction was used. DATE OF EXAM: 11/07/2021 3:40 PM COMPARISON: Prior CT Brain from 02/21/2021 . CLINICAL INDICATION:Male, 56 years old with history of weakness, TECHNIQUE: Brain: Multiple axial CT images of the brain were obtained without IV contrast. Coronal and sagittal reformats reviewed. FINDINGS: Brain: Extra-axial spaces: No abnormal extra-axial fluid collections. Stable high left frontoparietal extra- axial or subdural CSF prominence isodense to CSF. Ventricular system: Within normal limits Cerebral parenchyma: No acute intraparenchymal hemorrhage or mass effect. The werner-white junction is well differentiated. Redemonstration of linear hyperdensity along the postcentral sulcus which is un changed. Focal CSF prominence superior to this remains present towards the midline, suspect old infar ct. Cerebellum: Unremarkable. Mass effect: No evidence of midline shift. Intracranial vasculature: unremarkable Soft tissues: Normal. Calvarium/osseous structures: No depressed skull fracture. Paranasal sinuses and mastoid air cells: Complete opacification left ethmoid sinus again demonstrated . Visualized orbits: Orbital contents are intact. IMPRESSION: No acute intracranial process. No significant change from prior exams.
--- NOTE | 2021-11-07 16:36 | ED ---
General Adult HPI - General Chief complaint: Weakness Stated complaint: failure to thrive Time Seen by Provider: 11/07/21 14:20 Source: patient, EMS, RN notes reviewed, old records reviewed Mode of arrival: EMS Limitations: no limitations - History of Present Illness Initial comments: This a 56-year-old male who presents emergency Department with EMS. Only history we received from EMS that the patient cannot walk. Patient agrees that twice here he cannot walk however he doesn't answer all questions accurately. Patient denies any trauma. Patient denies any pain. Patient denies chest pain difficulty breathing first breath per patient denies abdominal pain patient states today inability to ambulate started about 3 days ago and he states it's w eakness in both legs. Patient states he can move his legs in bed but when he goes to stand on he can't get steady and he feels like it's in a fall over. - Related Data Home Medications Medication Instructions Recorded Confirmed Aspirin EC [Ecotrin Low Dose] 81 mg PO DAILY 09/04/21 11/07/21 Atorvastatin [Lipitor] 80 mg PO DAILY 11/07/21 11/07/21 Baclofen [Lioresal] 20 mg PO TID 11/07/21 11/07/21 Zonisamide 200 mg PO BID 11/07/21 11/07/21 lamoTRIgine [LaMICtal] 75 mg PO BID 11/07/21 11/07/21 lamoTRIgine [LaMICtal] 200 mg PO BID 11/07/21 11/07/21 Previous Rx's Medication Instructions Recorded Magnesium Oxide [Mag-Ox] 400 mg PO DAILY #28 tab 11/05/18 Famotidine [Pepcid] 20 mg PO BID #60 tab 11/21/18 QUEtiapine FUMARATE [SEROquel] 300 mg PO HS #30 tab 07/13/21 Tamsulosin [Flomax] 0.4 mg PO DAILY #30 cap 07/13/21 amLODIPine [Norvasc] 5 mg PO DAILY #30 tab 07/13/21 carvediloL [Coreg] 25 mg PO BID #60 tablet 07/13/21 Allergies Allergy/AdvReac Type Severity Reaction Status Date / Time No Known Allergies Allergy Verified 11/07/21 16:15 Review of Systems ROS Statement: Those systems with pertinent positive or pertinent negative responses have been documented in the HPI. ROS Other: All systems not noted in ROS Statement are negative. Past Medical History Past Medical History: CVA/TIA, GERD/Reflux, Hyperlipidemia, Hypertension, Pneumonia, Seizure Disorder Additional Past Medical History / Comment(s): L hemorrhagic stroke-R sided weakness and has had occasions of increased irritability/agitation/isolation, multiple mental health unit admissions with most recent on 10/24/18 [facility] with major depression/suicidal ideations without plan/acute anxiety, uncontrolled seizures, L pneumothorax with chest tube, migraines-has used other people's narcotics in the past per past medical record but pt denies, benign rectal polyp, etoh last drink more than 10 years ago. History of Any Multi-Drug Resistant Organisms: None Reported Past Surgical History: No Surgical Hx Reported Additional Past Surgical History / Comment(s): COLONOSCOPY POLYPS REMOVED-NEG, bilateral cataract removal, R testicular surgery as a little boy. Past Anesthesia/Blood Transfusion Reactions: No Reported Reaction Additional Past Anesthesia/Blood Transfusion Reaction / Comment(s): Pt has never recieved blood. Past Psychological History: Anxiety, Bipolar, Depression, Panic Disorder Smoking Status: Current every day smoker Past Alcohol Use History: None Reported Past Drug Use History: None Reported - Past Family History Father Family Medical History: Cancer, Hyperlipidemia, Hypertension, Prostate Disorder Additional Family Medical History / Comment(s): PROSTATE CA Mother Family Medical History: Osteoarthritis (OA) Additional Family Medical History / Comment(s): MOM IS 71 General Exam - General Exam Comments Initial Comments: GENERAL: Patient is well-developed and well-nourished. Patient is nontoxic and well-hydrated and is in no acute distress. ENT: Neck is soft and supple. No significant lymphadenopathy is noted. Oropharynx is clear. Moist mucous membranes. Neck has full range of motion without eliciting any pain. EYES: The sclera were anicteric and conjunctiva were pink and moist. Extraocular movements were intact and pupils were equal round and reactive to light. Eyelids were unremarkable. PULMONARY: Unlabored respirations. Good breath sounds bilaterally. No audible rales rhonchi or wheezing was noted. CARDIOVASCULAR: There is a regular rate and rhythm without any murmurs gallops or rubs. ABDOMEN: Soft and nontender with normal bowel sounds. SKIN: Skin is clear with no lesions or rashes and otherwise unremarkable. NEUROLOGIC: Patient is alert and oriented 2. Cranial nerves II through XII are grossly intact. Motor and sensory are also intact. MUSCULOSKELETAL: Normal extremities with adequate strength and full range of motion. I started the patient up and he was unable to steady himself though his legs did appear strong enough to hold him up he became very unsteady on his feet LYMPHATICS: No significant lymphadenopathy is noted PSYCHIATRIC: Difficult to assess since he doesn't always answer questions Limitations: no limitations Course Vital Signs 11/07/21 14:20 Temperature 97.0 F L Pulse Rate 64 Respiratory 12 Rate Blood Pressure 159/100 O2 Sat by Pulse 94 L Oximetry Medical Decision Making - Medical Decision Making EKG shows sinus rhythm at 63 bpm ME interval is 261 QRS is 149 QT interval is 458 QTC is 465. Patient's EKG shows no ST segment elevation or depression. CT of the brain shows no acute normalities. I went back in the room to reevaluate the patient he still was complaining that he couldn't walk and he seemed altered to me and the ex- was in the room and states that he on a regular basis abuses baclofen and use to abuse narcotics. Patient refuses to give us a urine. - Lab Data Result diagrams: 11/07/21 14:38 11/07/21 14:38 Lab Results 11/07/21 11/07/21 11/07/21 Range/Units 14:38 14:38 14:38 WBC 11.5 H (3.8-10.6) k/uL RBC 4.35 (4.30-5.90) m/uL Hgb 14.2 (13.0-17.5) gm/dL Hct 43.5 (39.0-53.0) % MCV 100.1 H (80.0-100.0) fL MCH 32.6 (25.0-35.0) pg MCHC 32.6 (31.0-37.0) g/dL RDW 12.6 (11.5-15.5) % Plt Count 268 (150-450) k/uL MPV 7.9 Neutrophils % 89 % Lymphocytes % 7 % Monocytes % 3 % Eosinophils % 1 % Basophils % 1 % Neutrophils # 10.2 H (1.3-7.7) k/uL Lymphocytes # 0.8 L (1.0-4.8) k/uL Monocytes # 0.3 (0-1.0) k/uL Eosinophils # 0.1 (0-0.7) k/uL Basophils # 0.1 (0-0.2) k/uL PT (9.0-12.0) sec INR (<1.2) APTT (22.0-30.0) sec Sodium 139 (137-145) mmol/L Potassium 4.1 (3.5-5.1) mmol/L Chloride 106 (98-107) mmol/L Carbon Dioxide 20 L (22-30) mmol/L Anion Gap 13 mmol/L BUN 17 (9-20) mg/dL Creatinine 1.09 (0.66-1.25) mg/dL Est GFR (CKD-EPI)AfAm 86 (>60 ml/min/1.73 sqM) Est GFR (CKD-EPI)NonAf 75 (>60 ml/min/1.73 sqM) Glucose 139 H (74-99) mg/dL Plasma Lactic Acid Shahbaz 1.4 (0.7-2.0) mmol/L Calcium 9.4 (8.4-10.2) mg/dL Magnesium 2.3 (1.6-2.3) mg/dL Total Bilirubin 0.5 (0.2-1.3) mg/dL AST 24 (17-59) U/L ALT 33 (4-49) U/L Alkaline Phosphatase 99 (38-126) U/L Troponin I (0.000-0.034) ng/mL Total Protein 7.1 (6.3-8.2) g/dL Albumin 4.4 (3.5-5.0) g/dL 11/07/21 11/07/21 Range/Units 14:38 16:39 WBC (3.8-10.6) k/uL RBC (4.30-5.90) m/uL Hgb (13.0-17.5) gm/dL Hct (39.0-53.0) % MCV (80.0-100.0) fL MCH (25.0-35.0) pg MCHC (31.0-37.0) g/dL RDW (11.5-15.5) % Plt Count (150-450) k/uL MPV Neutrophils % % Lymphocytes % % Monocytes % % Eosinophils % % Basophils % % Neutrophils # (1.3-7.7) k/uL Lymphocytes # (1.0-4.8) k/uL Monocytes # (0-1.0) k/uL Eosinophils # (0-0.7) k/uL Basophils # (0-0.2) k/uL PT 10.3 (9.0-12.0) sec INR 0.9 (<1.2) APTT 20.5 L (22.0-30.0) sec Sodium (137-145) mmol/L Potassium (3.5-5.1) mmol/L Chloride (98-107) mmol/L Carbon Dioxide (22-30) mmol/L Anion Gap mmol/L BUN (9-20) mg/dL Creatinine (0.66-1.25) mg/dL Est GFR (CKD-EPI)AfAm (>60 ml/min/1.73 sqM) Est GFR (CKD-EPI)NonAf (>60 ml/min/1.73 sqM) Glucose (74-99) mg/dL Plasma Lactic Acid Shahbaz (0.7-2.0) mmol/L Calcium (8.4-10.2) mg/dL Magnesium (1.6-2.3) mg/dL Total Bilirubin (0.2-1.3) mg/dL AST (17-59) U/L ALT (4-49) U/L Alkaline Phosphatase (38-126) U/L Troponin I <0.012 (0.000-0.034) ng/mL Total Protein (6.3-8.2) g/dL Albumin (3.5-5.0) g/dL Disposition Clinical Impression: Altered mental status, Ataxia Disposition: ADMITTED IP TO THIS HOSP Referrals: Jaziel Lockhart MD [Primary Care Provider] - 1-2 days Time of Disposition: 17:40
[2021-11-07 17:06] LABS: INR 0.9 (<1.2); Prothrombin Time 10.3 sec (9.0-12.0)
[2021-11-07 17:15] LABS: Partial Thromboplastin Time 20.5 sec (22.0-30.0)
[2021-11-07] MEDS ORDERED: SODIUM CHLORIDE 0.9% 1,000 ML IV ONE (17:41)
[2021-11-07 17:56] LABS: Amphetamine Screen,Urine Not Detected (NotDetected); Barbiturate Screen,Urine Not Detected (NotDetected); Benzodiazepines Screen,Urine Detected (NotDetected); Cocaine Screen,Urine Not Detected (NotDetected); Methadone Screen, Urine Not Detected (NotDetected); Opiate Screen,Urine Not Detected (NotDetected); Oxycodone Screen, Urine Detected (NotDetected); Phencyclidine Screen,Urine Not Detected (NotDetected); Tricyclic Antidepressant,Urine Detected (NotDetected); Urn Cannabinoid Scrn Not Detected (NotDetected)
[2021-11-07] MEDS ORDERED: ONDANSETRON 4 MG/2 ML VIAL IVP PRN (20:53)
[2021-11-07] MEDS: carvediloL 12.5 MG TAB PO SCH (21:49)
[2021-11-07] MEDS: ZONISAMIDE 100 MG CAP PO SCH (21:49)
[2021-11-07] MEDS: FAMOTIDINE 20 MG TAB PO SCH (21:49)
[2021-11-08] MEDS: amLODIPine 5 MG TAB PO SCH (09:05)
[2021-11-08] MEDS: carvediloL 12.5 MG TAB PO SCH ×2 (09:05→21:39)
[2021-11-08] MEDS: FAMOTIDINE 20 MG TAB PO SCH ×2 (09:05→21:39)
[2021-11-08] MEDS: ATORVASTATIN 80 MG TAB PO SCH (09:05)
[2021-11-08] MEDS: ASPIRIN 81 MG PO SCH (09:06)
[2021-11-08] MEDS: MAGNESIUM OXIDE 400 MG TAB PO SCH (09:06)
[2021-11-08] MEDS: TAMSULOSIN 0.4 MG CAP.ER.24H PO SCH (09:06)
[2021-11-08 09:11] LABS: Basophils # (A) 0.06 X 10*3/uL (0.00-0.10); Basophils % (A) 0.6 %; HCT 36.5 % (39.6-50.0); Immature Grans, Automated 0.4 %; Lymphocytes # (A) 1.73 X 10*3/uL (0.90-5.00); Lymphocytes % (A) 17.3 %; MCH 34.8 pg (27.0-32.0); MCHC 35.6 g/dL (32.0-37.0); MCV 97.6 fL (80.0-97.0); Mean Platelet Volume 10.6 fL (9.5-12.2); Monocytes # (A) 1.04 X 10*3/uL (0.20-1.00); Monocytes % (A) 10.4 %; NRBC Per 100 WBC 0 /100 WBCS (0.0-0.0); Neutrophils # (A) 7.02 X 10*3/uL (1.80-7.70); Neutrophils % (A) 70.3 %; Platelet Count 241 X 10*3/uL (140-440); RBC 3.74 X 10*6/uL (4.40-5.60); RDW 12.7 % (11.5-14.5); WBC 9.99 X 10*3/uL (4.50-10.00)
[2021-11-08] MEDS: ZONISAMIDE 100 MG CAP PO SCH ×2 (09:23→21:40)
[2021-11-08 09:25] LABS: African American GFR (CKD) 85.3 (60.0-200.0); Anion Gap 11.7 mmol/L (10.00-18.00); BUN/Creat Ratio 16.82 Ratio (12.00-20.00); Blood Urea Nitrogen 18.5 mg/dL (9.0-27.0); Calcium 9.1 mg/dL (8.7-10.3); Carbon Dioxide 19.3 mmol/L (20.0-27.5); Non-African American GFR(CKD) 73.6 (60.0-200.0); Potassium 3.7 mmol/L (3.5-5.5)
--- NOTE | 2021-11-08 10:35 | P.CNNES ---
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 Patient states that he could not walk for last 2 days, was crawling to the bathroom. He does have mild residual right-sided weakness from his previous stroke. He denies overdosing on baclofen. He states that he is taking a whole big pile of medication every morning. He believes it is the blood pressure medication that makes him weak. He says that he has not taken his baclofen for last 2 days. He has been feeling dizzy. Sometimes he feels pending. As per EMS flow sheet, patient was complaining of decreased ability to walk for last 3 days and failure to thrive. Patient came home from [facility] 3 days ago for rehab with his walking. Patient was walking on his own at the rehab facility therefore was brought home. Once he got home, he laid on the couch and refused to get up and was barely eating. He was alert and oriented 4 as per EMS, answering all questions appropriately. Stroke scale was negative. Patient mentioned that he was feeling weak and wanted to be seen in the ER. Patient's blood pressure was 149/86 pulse rate 59 respiration 14 saturation 97% and blood sugar 174. Patient's blood test shows WBC 11.5 hemoglobin 14.2 with elevated MCV 100.1 and platelets 268. PT/PTT normal, Chem-20 normal. Troponin negative. Urine drug screen positive for oxycodone, tricyclic and benzodiazepine. Patient's previous B12 was 411 on 07/18/[address] folate borderline 6.69. CT head showed no acute intracranial process. Patient at present is taking Mag-Ox 400 mg daily, Pepcid, Flomax, Coreg, amlodipine, Seroquel 300 mg at bedtime, aspirin 81 mg, Lamictal 200 mg twice a day and 75 mg twice a day. Baclofen 20 mg 3 times a day, Lipitor 80 mg and zonisamide 200 mg twice a day. Patient states that he has been smoking one pack per day for last 20 years, recently cut back to 3/4 quarters pack per day. Patient states he is feeling better. Patient states that he walked to the bathroom with his walker and was feeling all right. Review of Systems Constitutional: Denies chills, Denies fever Eyes: denies blurred vision, denies pain Ears, nose, mouth and throat: Denies headache, Denies sore throat Cardiovascular: Denies chest pain, Denies shortness of breath Respiratory: Denies cough Gastrointestinal: Denies abdominal pain, Denies diarrhea, Denies nausea, Denies vomiting Musculoskeletal: Denies myalgias Neurological: Reports as per HPI Endocrine: Reports fatigue Past Medical History Past Medical History: CVA/TIA, GERD/Reflux, Hyperlipidemia, Hypertension, Pneumonia, Seizure Disorder Additional Past Medical History / Comment(s): L hemorrhagic stroke-R sided weakness and has had occasions of increased irritability/agitation/isolation, multiple mental health unit admissions with most recent on 10/24/18 [facility] with major depression/suicidal ideations without plan/acute anxiety, uncontrolled sei zures, L pneumothorax with chest tube, migraines-has used other people's narcotics in the past per past medical record but pt denies, benign rectal polyp, etoh last drink more than 10 years ago. History of Any Multi-Drug Resistant Organisms: None Reported Past Surgical History: No Surgical Hx Reported Additional Past Surgical History / Comment(s): COLONOSCOPY POLYPS REMOVED-NEG, bilateral cataract removal, R testicular surgery as a little boy. Past Anesthesia/Blood Transfusion Reactions: No Reported Reaction Additional Past Anesthesia/Blood Transfusion Reaction / Comment(s): Pt has never recieved blood. Past Psychological History: Anxiety, Bipolar, Depression, Panic Disorder Additional Psychological History / Comment(s): Pt normally resides alone. He uses a walker prn. He does not drive, his friend, Charles, takes him to [employer] [place]. He gets his prescriptions thru [facility] in blister packs and normally can manage his meds from there but not the past few days, his friend has been giving him his prescribed medications. Pt's friend, Charles, states pt takes prescription drugs like xanax that are not prescribed to him. She states pt's mother just recently gave him some xanax. Smoking Status: Current every day smoker Past Alcohol Use History: None Reported Additional Past Alcohol Use History / Comment(s): Pt has hx of alcohol abuse but has not drank in 10 yrs except for one slip on his birthday 2 yrs ago. He is 1ppd smoker Past Drug Use History: None Reported Additional Drug Use History / Comment(s): Pt has hx of polysubstance abuse per PMR-Adderall/xanax/flexeril/baclofen. Pt's friend states he has polysubstance abuse with prescription meds/not always his own prescriptions. - Past Family History Father Family Medical History: Cancer, Hyperlipidemia, Hypertension, Prostate Disorder Additional Family Medical History / Comment(s): PROSTATE CA Mother Family Medical History: Osteoarthritis (OA) Additional Family Medical History / Comment(s): MOM IS 71 Medications and Allergies Home Medications Medication Instructions Recorded Confirmed Type Magnesium Oxide [Mag-Ox] 400 mg PO DAILY #28 tab 11/05/18 11/07/21 Rx Famotidine [Pepcid] 20 mg PO BID #60 tab 11/21/18 11/07/21 Rx QUEtiapine FUMARATE [SEROquel] 300 mg PO HS #30 tab 07/13/21 11/07/21 Rx Tamsulosin [Flomax] 0.4 mg PO DAILY #30 cap 07/13/21 11/07/21 Rx amLODIPine [Norvasc] 5 mg PO DAILY #30 tab 07/13/21 11/07/21 Rx carvediloL [Coreg] 25 mg PO BID #60 tablet 07/13/21 11/07/21 Rx Aspirin EC [Ecotrin Low Dose] 81 mg PO DAILY 09/04/21 11/07/21 History Atorvastatin [Lipitor] 80 mg PO DAILY 11/07/21 11/07/21 History Baclofen [Lioresal] 20 mg PO TID 11/07/21 11/07/21 History Zonisamide 200 mg PO BID 11/07/21 11/07/21 History lamoTRIgine [LaMICtal] 75 mg PO BID 11/07/21 11/07/21 History lamoTRIgine [LaMICtal] 200 mg PO BID 11/07/21 11/07/21 History Allergies Allergy/AdvReac Type Severity Reaction Status Date / Time No Known Allergies Allergy Verified 11/07/21 16:15 Physical Examination - Vital Signs Vital Signs: Vital Signs Temp Pulse Pulse Resp BP BP Pulse Ox 11/08/21 04:36 98.8 F 69 18 116/55 95 11/07/21 18:46 71 16 153/94 97 11/07/21 14:20 97.0 F L 64 12 159/100 94 L Intake and Output 11/07/21 11/08/21 11/08/21 22:59 06:59 14:59 Intake Total 240 480 Output Total 350 Balance 240 130 Intake: Oral 240 480 Output: Urine 350 Other: Weight 90.718 kg Patient is a middle aged male, in no acute distress. Patient is alert awake oriented to time place and person. He knows it is October 2021 and that he is in [facility] in [place].More the current president. Speech and language functions are normal. Patient can name and repeat very well. No aphasia or dysarthria. Attention, concentration and fund of knowledge is adequate. On cranial nerve examination, pupils are equal, round and reacting to light, visual callejas are full on confrontation, with no neglect on double simultaneous depression. Extraocular muscles are intact with no nystagmus. Patient has very minimal right-sided facial asymmetry. His tongue protrudes to the midline. Palatal elevation and sensation normal, hearing and shoulder shrug normal, facial sensation normal. On muscle strength testing, there is no pronator drift and the strength is normal in arms and legs distally and proximally, except right shoulder 4, and right hip flexion 5-, rest of the strength testing is normal. Deep tendon reflexes are (right/left) biceps 2/1+, brachioradialis 2/1+, knee 2+/1+, plantar is flat on the right, downgoing on the left. Sensory to touch is equal with no neglect on double simultaneous stimulation. Cerebellar function showed no ataxia for [id number] testing. No dysdiadoch okinesia. No ataxia for [id number] testing on either side. Tone and bulk of muscles normal. Gait deferred.. On general examination, there is no carotid bruit or murmur, S1-S2 audible. Chest is clear on consultation. Abdomen is soft nontender. No organomegaly, bowel sounds present. Peripheral pulses are present. No edema. Results - Laboratory Findings CBC and BMP: 11/08/21 04:24 11/08/21 04:24 Abnormal Lab Findings: Abnormal Labs 11/07/21 11/07/21 11/07/21 14:38 14:38 14:38 WBC 11.5 H MCV 100.1 H Neutrophils # 10.2 H Lymphocytes # 0.8 L APTT Carbon Dioxide 20 L Glucose 139 H Ur Oxycodone Screen Detected H U Tricyclic Antidepress Detected H U Benzodiazepines Scrn Detected H 11/07/21 16:39 WBC MCV Neutrophils # Lymphocytes # APTT 20.5 L Carbon Dioxide Glucose Ur Oxycodone Screen U Tricyclic Antidepress U Benzodiazepines Scrn Assessment and Plan Assessment: * Gait imbalance, dizziness, possible medication side effect. Patient believes it is either blood pressure medication, or Lamictal that is making him dizzy. He is on Lamictal 275 mg twice a day, which is a fairly high dose. Also on zonisamide 200 mg twice a day. * Post stroke epilepsy * History of tobacco use * Hypertension * Depression Plan: * We will check B12, folate, MMA, B6, TSH, Lamictal level * Continue zonisamide 200 mg twice a day for seizure prophylaxis. * Decrease Lamictal to 225 mg twice a day. (Patient prior to arrival on Lamictal 275 mg twice a day). He has not received his Lamictal since last night and is feeling better. * Patient states he is feeling better, and if stable, would be clear for discharge if above blood test comes back normal. * Patient has an appointment with his neurologist Dr. Lai on 11/25/2021. * Thank you for the consult.
[2021-11-08] MEDS: lamoTRIgine 100 MG TAB PO SCH ×2 (12:28→21:39)
[2021-11-08] MEDS: HEPARIN SODIUM,PORCINE/PF 5,000 UNIT/0.5 ML SYRINGE SQ SCH (21:41)
[2021-11-09] MEDS: ASPIRIN 81 MG PO SCH (08:16)
[2021-11-09] MEDS: ATORVASTATIN 80 MG TAB PO SCH (08:16)
[2021-11-09] MEDS: TAMSULOSIN 0.4 MG CAP.ER.24H PO SCH (08:16)
[2021-11-09] MEDS: lamoTRIgine 100 MG TAB PO SCH (08:17)
[2021-11-09] MEDS: FAMOTIDINE 20 MG TAB PO SCH (08:17)
[2021-11-09] MEDS: ZONISAMIDE 100 MG CAP PO SCH (08:17)
[2021-11-09] MEDS: MAGNESIUM OXIDE 400 MG TAB PO SCH (08:17)
[2021-11-09] MEDS: amLODIPine 5 MG TAB PO SCH (08:17)
[2021-11-09] MEDS: carvediloL 12.5 MG TAB PO SCH (08:17)
[2021-11-09] MEDS: HEPARIN SODIUM,PORCINE/PF 5,000 UNIT/0.5 ML SYRINGE SQ SCH (08:18)
--- NOTE | 2021-11-09 08:40 | HP ---
HISTORY AND PHYSICAL CHIEF COMPLAINT: Weakness, tremors, and ataxia. HISTORY OF PRESENT ILLNESS: This is a 56-year-old gentleman with a past medical history of multiple medical problems including CVA and GERD, being followed by Dr. Jaziel Lockhart. Now, the patient complains of dizziness. The patient is taking Lamictal. Blood pressure is also elevated. There is no history of any fever, rigors, or chills at this time. Neurology evaluation in progress. PAST MEDICAL HISTORY: Reviewed and includes hypertension and hyperlipidemia. HOME MEDICATIONS: Reviewed, Seroquel. Dose and rest of the medications reviewed. ALLERGIES: None. FAMILY HISTORY: Multiple history of hypertension and hyperlipidemia. SOCIAL HISTORY: History of smoking. Previous history of alcohol abuse. REVIEW OF SYSTEMS: A 14-point review of systems is negative except mentioned earlier. PHYSICAL EXAMINATION: VITAL SIGNS: Pulse 61, blood pressure , respirations 16. HEENT: Conjunctivae are normal. NECK: No jugular venous distention. CARDIOVASCULAR: S1 and S2 muffled. RESPIRATORY: Breath sounds diminished at the bases. No rhonchi. ABDOMEN: Soft and nontender. LEGS: No edema. CENTRAL NERVOUS SYSTEM: Diffusely weak and ataxic. Tremors present. SKIN: No ulcers or rashes. JOINTS: No active deforming arthropathy. LABORATORY DATA: WBC is 9.99. Other labs are reviewed. ASSESSMENT: 1. Ataxia and tremors, possibly drug-induced. 2. Gait dysfunction. Rule out transient ischemic attack versus stroke. 3. Hypertension. 4. Hyperlipidemia. 5. Seizure disorder. 6. Multiple medical issues. RECOMMENDATIONS AND DISCUSSION: This is a 56-year-old gentleman presented with multiple complex medical issues. We will monitor the patient closely. . A CT brain, which was reviewed personally by me. Neurology is following the patient closely. Neuro checks. Fall precautions. PT and OT evaluation. Lamictal p.o. b.i.d., and continue to monitor. Further recommendations to follow. MMODL / IJN: [id number] / MTDD
[2021-11-09 09:09] LABS: Basophils # (A) 0.08 X 10*3/uL (0.00-0.10); Basophils % (A) 1.2 %; Eosinophils # (A) 0.15 X 10*3/uL (0.04-0.35); Eosinophils % (A) 2.3 %; HCT 39.2 % (39.6-50.0); HGB 13.3 g/dL (13.0-17.0); Immature Grans, Automated 0.5 %; Lymphocytes # (A) 1.96 X 10*3/uL (0.90-5.00); Lymphocytes % (A) 29.9 %; MCH 32.8 pg (27.0-32.0); MCHC 33.9 g/dL (32.0-37.0); MCV 96.8 fL (80.0-97.0); Mean Platelet Volume 10.7 fL (9.5-12.2); Monocytes # (A) 0.69 X 10*3/uL (0.20-1.00); Monocytes % (A) 10.5 %; NRBC Per 100 WBC 0 /100 WBCS (0.0-0.0); Neutrophils # (A) 3.65 X 10*3/uL (1.80-7.70); Neutrophils % (A) 55.6 %; Platelet Count 264 X 10*3/uL (140-440); RBC 4.05 X 10*6/uL (4.40-5.60); RDW 12.7 % (11.5-14.5); WBC 6.56 X 10*3/uL (4.50-10.00)
[2021-11-09] MEDS ORDERED: lamoTRIgine 25 MG TAB PO SCH (09:15)
[2021-11-09 09:39] LABS: African American GFR (CKD) 63.7 (60.0-200.0); Anion Gap 11.1 mmol/L (10.00-18.00); BUN/Creat Ratio 16.36 Ratio (12.00-20.00); Blood Urea Nitrogen 22.9 mg/dL (9.0-27.0); Carbon Dioxide 19.9 mmol/L (20.0-27.5); Potassium 3.5 mmol/L (3.5-5.5)
[2021-11-09] MEDS ORDERED: FOLIC ACID 1 MG TAB PO SCH (12:00)
[2021-11-09] MEDS ORDERED: THIAMINE 100 MG TAB PO SCH (12:00)
[2021-11-09] MEDS ORDERED: MULTIVITAMINS, THERA 1 EACH TAB PO SCH (12:00)
[2021-11-09 12:15] VITALS: BP 137/84; PULSE 59; RESP 19; TEMP 97.3
[2021-11-09] MEDS ORDERED: LORazepam 2 MG/ML INJ IV STA (13:47)
--- NOTE | 2021-11-11 15:23 | P.DS ---
Providers Date of admission: 11/07/21 17:41 Expected date of discharge: 11/09/21 Attending physician: Ramon Delcid Consults: 11/07/21 17:41 Consult Physician Urgent Consulting Provider: Soniya Lancaster Consult Reason/Comments: Altered mental status, ataxia Do you want consulting provider notified?: Yes Primary care physician: Jaziel Lockhart Hospital Course: Final diagnosis Ataxia and tremors, possibly drug-induced Gait dysfunction, ruled out TIA versus stroke Elevated Lamictal levels Hypertension hyperlipidemia seizure disorder Multiple medical issues Discharge disposition Patient is being discharged in a stable condition with guarded prognosis to home. Patient will follow-up with Dr. Lockhart in the outpatient setting upon discharge. Patient is to also follow-up with neurologist in the outpatient setting. Patient is to continued on decreased dose of Lamictal per neurology recommendations and prescription provided for repeat labs in the next 2-3 days. Total time taken is greater than 35 minutes. Hospital course This is a 56-year-old male who was recently admitted with dizziness and possible baclofen overdose. Patient was being closely monitored with neurology following and Lamictal levels were elevated with decreased dose being recommended and close outpatient follow-up. Patient does have appointment with Dr. Lai neurologist this week. Patient also has been off baclofen for 2 days. Patient having some dizziness although improved and continues with some anxiety and will give some oral Ativan as needed and encourage the patient to follow-up with [facility] care provider along with neurology as scheduled. Patient reports to feeling better and would like to go home. Encourage the patient to monitor blood pressure and keep a diary of readings for primary or follow-up. Currently no reports of chest pain, shortness of breath, or palpitations. Patient is afebrile. No reports of nausea or vomiting and patient is tolerating diet. Patient will be discharged home today. Guarded prognosis Physical exam: Gen: This is a 56-year-old male awake, alert and oriented 3, well-developed, well-nourished. HEENT: Head is atraumatic, normocephalic. Pupils equal, round. Sclerae is anicteric. NECK: Supple. No JVD. No lymphadenopathy. No thyromegaly. LUNGS: Diminished breath sounds bilaterally with no wheezes or rhonchi. No intercostal retractions. HEART: S1, S2 are muffled ABDOMEN: Soft. Bowel sounds are present. No masses. No tenderness. EXTREMITIES: No pedal edema. No calf tenderness. NEUROLOGICAL: Patient is awake, alert and oriented x3. Cranial nerves 2 through 12 are grossly intact. Please refer to medication reconciliation sheet for a list of medications. The impression and plan of care has been dictated by Freda Ellis, Nurse Practitioner as directed. Dr. Bhavin MD I have performed a history and examination and MDM of this patient, discussed the same with the dictator, and agree with the dictator's assessment and plan as written ,documented as a scribe. Based on total visit time, I have performed more than 50% of the visit. Patient Condition at Discharge: Fair Plan - Discharge Summary New Discharge Prescriptions: New LORazepam [Ativan] 0.5 mg PO TID PRN #6 tab PRN Reason: Anxiety Folic Acid 1 mg PO DAILY@1200 #30 tab Thiamine [Vitamin B-1] 100 mg PO DAILY@1200 #30 tab Multivitamins, Thera [Multivitamin (formulary)] 1 each PO DAILY@1200 #30 tab Continue Magnesium Oxide [Mag-Ox] 400 mg PO DAILY #28 tab Famotidine [Pepcid] 20 mg PO BID #60 tab Tamsulosin [Flomax] 0.4 mg PO DAILY #30 cap lamoTRIgine [LaMICtal] 200 mg PO BID Atorvastatin [Lipitor] 80 mg PO DAILY carvediloL [Coreg] 25 mg PO BID #60 tablet amLODIPine [Norvasc] 5 mg PO DAILY #30 tab Aspirin EC [Ecotrin Low Dose] 81 mg PO DAILY Zonisamide 200 mg PO BID lamoTRIgine [LaMICtal] 25 mg PO BID #0 Discontinued QUEtiapine FUMARATE [SEROquel] 300 mg PO HS #30 tab Baclofen [Lioresal] 20 mg PO TID Discharge Medication List Magnesium Oxide [Mag-Ox] 400 mg PO DAILY #28 tab 11/05/18 [Rx] Famotidine [Pepcid] 20 mg PO BID #60 tab 11/21/18 [Rx] Tamsulosin [Flomax] 0.4 mg PO DAILY #30 cap 07/13/21 [Rx] amLODIPine [Norvasc] 5 mg PO DAILY #30 tab 07/13/21 [Rx] carvediloL [Coreg] 25 mg PO BID #60 tablet 07/13/21 [Rx] Aspirin EC [Ecotrin Low Dose] 81 mg PO DAILY 09/04/21 [History] Atorvastatin [Lipitor] 80 mg PO DAILY 11/07/21 [History] Zonisamide 200 mg PO BID 11/07/21 [History] lamoTRIgine [LaMICtal] 200 mg PO BID 11/07/21 [History] Folic Acid 1 mg PO DAILY@1200 #30 tab 11/09/21 [Rx] LORazepam [Ativan] 0.5 mg PO TID PRN #6 tab 11/09/21 [Rx] Multivitamins, Thera [Multivitamin (formulary)] 1 each PO DAILY@1200 #30 tab 11/09/21 [Rx] Thiamine [Vitamin B-1] 100 mg PO DAILY@1200 #30 tab 11/09/21 [Rx] lamoTRIgine [LaMICtal] 25 mg PO BID #0 11/09/21 [Rx] Follow up Appointment(s)/Referral(s): Jaziel Lockhart MD [Primary Care Provider] - 11/16/21 11:00 am Merissa Lai MD [REFERRING] - 1 Week (Keep your already scheduled appointment) Ambulatory/Diagnostic Orders: Basic Metabolic Panel [LAB.AMB] Time Frame: 3 Days, Location: None Selected Activity/Diet/Wound Care/Special Instructions: Activity Limited until follow-up Follow-up with primary care provider on discharge Follow-up with your neurologist at your scheduled appointment Follow-up with [facility] outpatient Continue taking medications as prescribed Recommend repeat labs in the next 2-3 days Discharge Disposition: HOME SELF-CARE
== END 2021-11-09 16:20 | disposition home or self-care (01) ==
LOC: EC 14:03 → 5NMEDONC 17:41 → INTOOBSV 17:41 → 5NMEDONC 17:55 → UNDODISIN 11-09 16:20
PROVIDERS: ADMIT Hospitalist; ATTEND Hospitalist
DX: R27.0 Ataxia, unspecified (principal); R25.1 Tremor, unspecified; I69.351 Hemiplegia and hemiparesis following cerebral infarction affecting right dominant side; K21.9 Gastro-esophageal reflux disease without esophagitis; E78.5 Hyperlipidemia, unspecified; I10 Essential (primary) hypertension; G40.909 Epilepsy, unspecified, not intractable, without status epilepticus; F31.9 Bipolar disorder, unspecified; F32.A Depression, unspecified; F41.0 Panic disorder [episodic paroxysmal anxiety]; F17.200 Nicotine dependence, unspecified, uncomplicated; Z79.82 Long term (current) use of aspirin; Z79.899 Other long term (current) drug therapy; Z98.42 Cataract extraction status, left eye; Z98.41 Cataract extraction status, right eye; Z82.49 Family history of ischemic heart disease and other diseases of the circulatory system; Z80.42 Family history of malignant neoplasm of prostate; Z82.61 Family history of arthritis
CPT/HCPCS: 96374; 99285; 36415; 93005; 97162; 97166; 84207; 83921; 80053; 80048 ×2; 80175; 84443; 82607; 82746; 83605; 83735; 84484; 85025 ×3; 85610; 85730; 80306; 70450; G0378 ×3; J2060

== ENCOUNTER → 2021-11-28 | Outpatient (CLI) | payer OTHER ==
[2021-11-29 07:05] LABS: Lamotrigine (Lamictal) 11.6 ug/mL (2.0-15.0)
== END | disposition home or self-care (01) ==
LOC: LABWHC1 11:15
PROVIDERS: ATTEND Psychiatry & Neurology Neurology
DX: Z86.73 Personal history of transient ischemic attack (TIA), and cerebral infarction without residual deficits (principal)
CPT/HCPCS: 36415; 80175; 80203

== ENCOUNTER 2022-02-21 09:49 | Day surgery (SDC) | payer OTHER ==
[2022-02-20 10:53] VITALS: BMI 25.8
[~2022-02-21 09:49] MED LIST: LACTATED RINGERS 1,000 ML IV SCH; LIDOCAINE 1% (10MG/ML) FOR IV START INTRADERMA PRN
[2022-02-21] MEDS ORDERED: IV FLUID CONTINUATION 1,000 ML IV ONE (11:20)
== END 2022-02-21 10:45 | disposition home or self-care (01) ==
LOC: ORWHC2ENDO 09:49
PROVIDERS: ATTEND Surgery
DX: Z53.9 Procedure and treatment not carried out, unspecified reason (principal)

== ENCOUNTER 2022-07-25 08:24 | Day surgery (SDC) | payer OTHER ==
[2022-07-19 16:22] VITALS: BMI 26.6
[2022-07-25] MEDS ORDERED: LACTATED RINGERS 1,000 ML IV ONE (08:36)
[2022-07-25 08:44] VITALS: RESP 16; TEMP 98
[2022-07-25] MEDS ORDERED: PROPOFOL 10 MG/ML 20 ML VIAL IV ONE (09:00)
[2022-07-25] MEDS ORDERED: LIDOCAINE 2% INJ 20 MG/ML (2 ML VIAL) ONE (09:00)
--- NOTE | 2022-07-25 09:02 | P.GSHP ---
History of Present Illness H&P Date: 07/25/22 Chief Complaint: Colon cancer screening with history of polyps 56-year-old male here for colonoscopy. He is unsure when his last colonoscopy was. He thinks he had polyps. No family history of colon cancer. No bowel complaints. Past Medical History Past Medical History: CVA/TIA, GERD/Reflux, Hyperlipidemia, Hypertension, Pneumonia, Seizure Disorder Additional Past Medical History / Comment(s): L hemorrhagic stroke-R sided weakness and has had occasions of increased irritability/agitation/isolation, multiple mental health unit admissions, uncontrolled seizures, L pneumothorax with chest tube, migraines History of Any Multi-Drug Resistant Organisms: None Reported Past Surgical History: No Surgical Hx Reported Additional Past Surgical History / Comment(s): COLONOSCOPY w/ POLYPS REMOVED- NEG, bilateral cataract removal, R testicular surgery as a child Past Anesthesia/Blood Transfusion Reactions: No Reported Reaction Additional Past Anesthesia/Blood Transfusion Reaction / Comment(s): Pt has never recieved blood. Past Psychological History: Anxiety, Bipolar, Depression, Panic Disorder Additional Psychological History / Comment(s): previous mental health admissions Smoking Status: Current every day smoker Past Alcohol Use History: None Reported Additional Past Alcohol Use History / Comment(s): past hx of etoh abuse, last drink about 10 yrs ago Past Drug Use History: None Reported Additional Drug Use History / Comment(s): Pt has hx of polysubstance abuse per PMR-Adderall/xanax/flexeril/baclofen. Pt's friend states he has polysubstance abuse with prescription meds/not always his own prescriptions. - Past Family History Father Family Medical History: Cancer, Hyperlipidemia, Hypertension, Prostate Disorder Additional Family Medical History / Comment(s): PROSTATE CA Mother Family Medical History: Osteoarthritis (OA) Additional Family Medical History / Comment(s): MOM IS 71 Medications and Allergies Home Medications Medication Instructions Recorded Confirmed Type Magnesium Oxide [Mag-Ox] 400 mg PO DAILY #28 tab 11/05/18 07/25/22 Rx Famotidine [Pepcid] 20 mg PO BID #60 tab 11/21/18 07/25/22 Rx carvediloL [Coreg] 25 mg PO BID #60 tablet 07/13/21 07/25/22 Rx Aspirin EC [Ecotrin Low Dose] 81 mg PO DAILY 09/04/21 07/25/22 History Atorvastatin [Lipitor] 80 mg PO DAILY 11/07/21 07/25/22 History Zonisamide 200 mg PO BID 11/07/21 07/25/22 History lamoTRIgine [LaMICtal] 275 mg PO BID 11/07/21 07/25/22 History Tamsulosin [Flomax] 0.4 mg PO QAM 02/20/22 07/25/22 History amLODIPine [Norvasc] 5 mg PO QAM 02/20/22 07/25/22 History Allergies Allergy/AdvReac Type Severity Reaction Status Date / Time No Known Allergies Allergy Verified 07/25/22 08:39 Surgical - Exam Vital Signs Temp Pulse Resp BP Pulse Ox 98 F 65 16 121/82 96 07/25/22 08:43 07/25/22 08:43 07/25/22 08:43 07/25/22 08:43 07/25/22 08:43 Physical exam: General: Well-developed, well-nourished HEENT: Normocephalic, sclerae nonicteric Abdomen: Nontender, nondistended Extremities: No edema Neuro: Alert and oriented Assessment and Plan (1) Colon cancer screening Narrative/Plan: Will proceed with colonoscopy at this time Current Visit: Yes Status: Acute Code(s): Z12.11 - ENCOUNTER FOR SCREENING FOR MALIGNANT NEOPLASM OF COLON SNOMED Code(s): 859466738
--- NOTE | 2022-07-25 09:18 | P.PCN ---
Date of Procedure: 07/25/22 Procedure(s) Performed: PREOPERATIVE DIAGNOSIS: Screening, history of polyps POSTOPERATIVE DIAGNOSIS: Transverse colon polyp, diverticulosis PROCEDURE: Colonoscopy with snare polypectomy ANESTHESIA: MAC SURGEON: Dago Rojo M.D. SPECIMENS: Polyp ENDOSCOPIC PROCEDURE: The patient was placed on the endoscopy table in the left decubitus position. The Olympus colonoscope was inserted into the anus and passed under direct visualization to the base of the cecum. The appendiceal orifice was visualized. From that point the scope was slowly withdrawn inspecting all surfaces carefully. There were no neoplastic inflammatory or polypoid lesions throughout the cecum or ascending colon. In the transverse colon small polyp was seen and removed using the snare with cautery technique. The remainder of the transverse descending sigmoid and rectum is normal. There was scattered diverticulosis. Digital rectal examination was normal. The patient was taken to the recovery room in stable condition per anesthesia guidelines. RECOMMENDATIONS: Await biopsy results. Repeat colonoscopy in 5 years.
[2022-07-25 09:37] VITALS: BP 129/78; PULSE 57
== END 2022-07-25 10:08 ==
LOC: ORWHC2ENDO 08:24
PROVIDERS: ATTEND Surgery
DX: Z12.11 Encounter for screening for malignant neoplasm of colon (principal); D12.3 Benign neoplasm of transverse colon; K57.30 Diverticulosis of large intestine without perforation or abscess without bleeding; E78.5 Hyperlipidemia, unspecified; I10 Essential (primary) hypertension; K21.9 Gastro-esophageal reflux disease without esophagitis; F17.200 Nicotine dependence, unspecified, uncomplicated; F31.9 Bipolar disorder, unspecified; F41.9 Anxiety disorder, unspecified; Z86.73 Personal history of transient ischemic attack (TIA), and cerebral infarction without residual deficits; Z86.010 Personal history of colon polyps; Z86.59 Personal history of other mental and behavioral disorders; Z82.61 Family history of arthritis; Z82.49 Family history of ischemic heart disease and other diseases of the circulatory system; Z83.49 Family history of other endocrine, nutritional and metabolic diseases; Z79.82 Long term (current) use of aspirin; Z79.899 Other long term (current) drug therapy
CPT/HCPCS: 88305; 45385; J2704; J2001

== ENCOUNTER 2022-09-18 16:16 | Observation (INO) | payer OTHER ==
[2022-09-18 17:42] LABS: Basophils # (A) 0.1 k/uL (0-0.2); Basophils % (A) 1 %; Eosinophils # (A) 0.4 k/uL (0-0.7); Eosinophils % (A) 4 %; HCT 48.3 % (39.0-53.0); HGB 16.4 gm/dL (13.0-17.5); Lymphocytes # (A) 1.4 k/uL (1.0-4.8); Lymphocytes % (A) 15 %; MCH 33.7 pg (25.0-35.0); MCHC 33.9 g/dL (31.0-37.0); MCV 99.4 fL (80.0-100.0); Monocytes # (A) 0.4 k/uL (0-1.0); Monocytes % (A) 5 %; Neutrophils % (A) 75 %; Platelet Count 281 k/uL (150-450); RBC 4.86 m/uL (4.30-5.90); RDW 12.1 % (11.5-15.5); WBC 9.3 k/uL (3.8-10.6)
[2022-09-18 17:50] LABS: Partial Thromboplastin Time 25.4 sec (22.0-30.0); Prothrombin Time 10.3 sec (9.0-12.0)
--- NOTE | 2022-09-18 17:56 | XR ---
EXAMINATION TYPE: XR chest 2V DATE OF EXAM: 09/18/2022 5:36 PM COMPARISON: Chest radiographs from 09/05/2021 TECHNIQUE: XR chest 2V Frontal and lateral views of the chest. CLINICAL INDICATION:Male, 56 years old with history of Chest Pain; FINDINGS: Lungs/Pleura: There is no evidence of pleural effusion, focal consolidation, or pneumothorax. Pulmonary vascularity: Unremarkable. Heart/mediastinum: Cardiomediastinal silhouette is unremarkable. Musculoskeletal: No acute osseous pathology. IMPRESSION: No acute cardiopulmonary disease/process.
[2022-09-18 18:04] LABS: ALT 27 U/L (4-49); AST 26 U/L (17-59); African American GFR (CKD) 59 (>60 ml/min/1.73 sqM); Albumin 4.8 g/dL (3.5-5.0); Alkaline Phosphatase 99 U/L (38-126); Anion Gap 11 mmol/L; Blood Urea Nitrogen 16 mg/dL (9-20); Calcium 9.5 mg/dL (8.4-10.2); Carbon Dioxide 21 mmol/L (22-30); Chloride 108 mmol/L (98-107); Glucose 109 mg/dL (74-99); Magnesium 2.4 mg/dL (1.6-2.3); Non-African American GFR(CKD) 51 (>60 ml/min/1.73 sqM); Sodium 140 mmol/L (137-145); Total Bilirubin 0.7 mg/dL (0.2-1.3); Total Protein 7.8 g/dL (6.3-8.2)
--- NOTE | 2022-09-18 19:05 | ED ---
General Adult HPI - General Chief complaint: Chest Pain Stated complaint: Chest Pain Time Seen by Provider: 09/18/22 18:18 Source: patient, family Mode of arrival: ambulatory Limitations: no limitations - History of Present Illness Initial comments: Dictation was produced using [employer] dictation software. please excuse any grammatical, word or spelling errors. Chief Complaint: 56-year-old male presents to the emergency room 2 months of chest pain History of Present Illness: Patient is a 56-year-old male he presents with pressure to the left anterior chest. Pain is nonradiating no associated diaphoresis or nausea. Pain are reproduced with deep inspiration or movements. He has had this pain consistently for the last 2 months. Patient has a history of heart attack he has history of tobacco use high cholesterol and hypertension. The ROS documented in this emergency department record has been reviewed and confirmed by me. Those systems with pertinent positive or negative responses have been documented in the HPI. All other systems are other negative and/or noncontributory. - Related Data Home Medications Medication Instructions Recorded Confirmed Aspirin EC [Ecotrin Low Dose] 81 mg PO DAILY 09/04/21 07/25/22 Atorvastatin [Lipitor] 80 mg PO DAILY 11/07/21 07/25/22 Zonisamide 200 mg PO BID 11/07/21 07/25/22 lamoTRIgine [LaMICtal] 275 mg PO BID 11/07/21 07/25/22 Tamsulosin [Flomax] 0.4 mg PO QAM 02/20/22 07/25/22 amLODIPine [Norvasc] 5 mg PO QAM 02/20/22 07/25/22 Previous Rx's Medication Instructions Recorded Magnesium Oxide [Mag-Ox] 400 mg PO DAILY #28 tab 11/05/18 Famotidine [Pepcid] 20 mg PO BID #60 tab 11/21/18 carvediloL [Coreg] 25 mg PO BID #60 tablet 07/13/21 Allergies Allergy/AdvReac Type Severity Reaction Status Date / Time No Known Allergies Allergy Verified 07/25/22 08:39 Review of Systems ROS Statement: Those systems with pertinent positive or pertinent negative responses have been documented in the HPI. ROS Other: All systems not noted in ROS Statement are negative. Past Medical History Past Medical History: CVA/TIA, GERD/Reflux, Hyperlipidemia, Hypertension, Pneumonia, Seizure Disorder Additional Past Medical History / Comment(s): L hemorrhagic stroke-R sided weakness and has had occasions of increased irritability/agitation/isolation, multiple mental health unit admissions, uncontrolled seizures, L pneumothorax with chest tube, migraines History of Any Multi-Drug Resistant Organisms: None Reported Past Surgical History: No Surgical Hx Reported Additional Past Surgical History / Comment(s): COLONOSCOPY w/ POLYPS REMOVED- NEG, bilateral cataract removal, R testicular surgery as a child Past Anesthesia/Blood Transfusion Reactions: No Reported Reaction Additional Past Anesthesia/Blood Transfusion Reaction / Comment(s): Pt has never recieved blood. Past Psychological History: Anxiety, Bipolar, Depression, Panic Disorder Smoking Status: Current every day smoker Past Alcohol Use History: None Reported Past Drug Use History: None Reported - Past Family History Father Family Medical History: Cancer, Hyperlipidemia, Hypertension, Prostate Disorder Additional Family Medical History / Comment(s): PROSTATE CA Mother Family Medical History: Osteoarthritis (OA) Additional Family Medical History / Comment(s): MOM IS 71 General Exam - General Exam Comments Initial Comments: PHYSICAL EXAM: General Impression: Alert and oriented x3, not in acute distress HEENT: Normocephalic atraumatic, extra-ocular movements intact, pupils equal and reactive to light bilaterally, mucous membranes moist. Cardiovascular: Heart regular rate and rhythm Chest: Able to complete full sentences, no retractions, no tachypnea Abdomen: abdomen soft, non-tender, non-distended, no organomegaly Musculoskeletal: Pulses present and equal in all extremities, no peripheral edema Motor: no focal deficits noted Neurological: CN II-XII grossly intact, no focal motor or sensory deficits noted Skin: Intact with no visualized rashes Psych: Normal affect and mood Limitations: no limitations Course Vital Signs 09/18/22 09/18/22 16:26 18:02 Temperature 98.3 F 98.5 F Pulse Rate 67 64 Respiratory 18 18 Rate Blood Pressure 145/84 158/100 O2 Sat by Pulse 96 96 Oximetry EKG Findings - EKG Comments: EKG Findings:: My EKG interpretation: Ventricular rate 67, sinus rhythm,. Interval to 25, QRS 120, QTC 439. No OR prolongation, no QTC prolongation, no ST or T-wave changes noted. Overall, this EKG is unremarkable Medical Decision Making - Medical Decision Making Was pt. sent in by a medical professional or institution (, PA, [employer], urgent care, hospital, or senior living...) When possible be specific @ -No Did you speak to anyone other than the patient for history (EMS, parent, family, police, friend...)? What history was obtained from this source @ -No Did you review nursing and triage notes (agree or disagree)? Why? @ -I reviewed and agree with nursing and triage notes Were old charts reviewed (outside hosp., previous admission, EMS record, old EKG, old radiological studies, urgent care reports/EKG's, senior living records)? Report findings @ -No old charts were reviewed Differential Diagnosis (chest pain, altered mental status, abdominal pain women, abdominal pain men, vaginal bleeding, musculoskeletal, weakness, fever, dyspnea, syncope, headache, dizziness, GI bleed, back pain, seizure, CVA, palpatations, mental health)? @ -Differential Chest Pain: Stable Angina, Unstable Angina, STEMI, NSTEMI Aortic Dissection, Pneumothorax, Musculoskeletal, Esophageal Spasm GERD, Cholecystitis, Pancreatitis, Zoster, this is not meant to be an all-inclusive list. EKG interpreted by me (3pts min.). @ -See above X-rays interpreted by me (1pt min.). @ -None done CT interpreted by me (1pt min.). @ -None done U/S interpreted by me (1pt. min.). @ -None done What testing was considered but not performed or refused? (CT, X-rays, U/S, labs)? Why? @ -None What meds were considered but not given or refused? Why? @ -None Did you discuss the management of the patient with other professionals (professionals i.e. , PA, [employer], lab, RT, psych nurse, social media assistant, customer manager, teacher, chief financial officer, high risk case manager)? Give summary @ -Case discussed with on-call hospitalist for admission to [facility] hospitalist group Was smoking cessation discussed for >3mins.? @ -No Was critical care preformed (if so, how long)? @ -No Were there social determinants of health that impacted care today? How? (Homel essness, low income, unemployed, alcoholism, drug addiction, transportation, low edu. Level, literacy, decrease access to med. care, mcc, rehab)? @ -No Was there de-escalation of care discussed even if they declined (Discuss DNR or withdrawal of care, Hospice)? DNR status @ -No What co-morbidities impacted this encounter? (DM, HTN, Smoking, COPD, CAD, Cancer, CVA, ARF, Chemo, Hep., AIDS, mental health diagnosis, sleep apnea, morbid obesity)? @ -None Was patient admitted / discharged? Hospital course, mention meds given and route, prescriptions, significant lab abnormalities, going to OR and other pertinent info. @ -48-year-old male presents emergency department with atypical chest pain typical features. Vital signs upon arrival are within acceptable limits. EKG does not show any signs of ischemia infarction. Laboratory evaluation obtained. Troponin is negative. Chest x-ray is nonacute. Patient will be admitted consultation cardiology. Patient given aspirin Undiagnosed new problem with uncertain prognosis? @ -No Drug Therapy requiring intensive monitoring for toxicity (Heparin, Nitro, I nsulin, Cardizem)? @ -No Were any procedures done? @ -No Diagnosis/symptom? Acute, or Chronic, or Acute on Chronic? Uncomplicated (without systemic symptoms) or Complicated (systemic symptoms)? @ -1. Chest pain Side effects of treatment? @ -No Exacerbation, Progression, or Severe Exacerbation? @ -No Poses a threat to life or bodily function? How? (Chest pain, [place], [place], pneumonia, PE, COPD, DKA, ARF, appy, cholecystitis, CVA, Diverticulitis, Homicidal, Suicidal, threat to staff... and all critical care pts) @ -yes - Lab Data Result diagrams: 09/18/22 17:32 09/18/22 17:32 Lab Results 09/18/22 09/18/22 09/18/22 Range/Units 17:32 17:32 17:32 WBC 9.3 (3.8-10.6) k/uL RBC 4.86 (4.30-5.90) m/uL Hgb 16.4 (13.0-17.5) gm/dL Hct 48.3 (39.0-53.0) % MCV 99.4 (80.0-100.0) fL MCH 33.7 (25.0-35.0) pg MCHC 33.9 (31.0-37.0) g/dL RDW 12.1 (11.5-15.5) % Plt Count 281 (150-450) k/uL MPV 8.0 Neutrophils % 75 % Lymphocytes % 15 % Monocytes % 5 % Eosinophils % 4 % Basophils % 1 % Neutrophils # 7.0 (1.3-7.7) k/uL Lymphocytes # 1.4 (1.0-4.8) k/uL Monocytes # 0.4 (0-1.0) k/uL Eosinophils # 0.4 (0-0.7) k/uL Basophils # 0.1 (0-0.2) k/uL PT 10.3 (9.0-12.0) sec INR 1.0 (<1.2) APTT 25.4 (22.0-30.0) sec Sodium 140 (137-145) mmol/L Potassium 4.0 (3.5-5.1) mmol/L Chloride 108 H (98-107) mmol/L Carbon Dioxide 21 L (22-30) mmol/L Anion Gap 11 mmol/L BUN 16 (9-20) mg/dL Creatinine 1.50 H (0.66-1.25) mg/dL Est GFR (CKD-EPI)AfAm 59 (>60 ml/min/1.73 sqM) Est GFR (CKD-EPI)NonAf 51 (>60 ml/min/1.73 sqM) Glucose 109 H (74-99) mg/dL Calcium 9.5 (8.4-10.2) mg/dL Magnesium 2.4 H (1.6-2.3) mg/dL Total Bilirubin 0.7 (0.2-1.3) mg/dL AST 26 (17-59) U/L ALT 27 (4-49) U/L Alkaline Phosphatase 99 (38-126) U/L Troponin I (0.000-0.034) ng/mL Total Protein 7.8 (6.3-8.2) g/dL Albumin 4.8 (3.5-5.0) g/dL 09/18/22 Range/Units 17:32 WBC (3.8-10.6) k/uL RBC (4.30-5.90) m/uL Hgb (13.0-17.5) gm/dL Hct (39.0-53.0) % MCV (80.0-100.0) fL MCH (25.0-35.0) pg MCHC (31.0-37.0) g/dL RDW (11.5-15.5) % Plt Count (150-450) k/uL MPV Neutrophils % % Lymphocytes % % Monocytes % % Eosinophils % % Basophils % % Neutrophils # (1.3-7.7) k/uL Lymphocytes # (1.0-4.8) k/uL Monocytes # (0-1.0) k/uL Eosinophils # (0-0.7) k/uL Basophils # (0-0.2) k/uL PT (9.0-12.0) sec INR (<1.2) APTT (22.0-30.0) sec Sodium (137-145) mmol/L Potassium (3.5-5.1) mmol/L Chloride (98-107) mmol/L Carbon Dioxide (22-30) mmol/L Anion Gap mmol/L BUN (9-20) mg/dL Creatinine (0.66-1.25) mg/dL Est GFR (CKD-EPI)AfAm (>60 ml/min/1.73 sqM) Est GFR (CKD-EPI)NonAf (>60 ml/min/1.73 sqM) Glucose (74-99) mg/dL Calcium (8.4-10.2) mg/dL Magnesium (1.6-2.3) mg/dL Total Bilirubin (0.2-1.3) mg/dL AST (17-59) U/L ALT (4-49) U/L Alkaline Phosphatase (38-126) U/L Troponin I <0.012 (0.000-0.034) ng/mL Total Protein (6.3-8.2) g/dL Albumin (3.5-5.0) g/dL Disposition Clinical Impression: Chest pain Disposition: ADMITTED IP TO THIS [facility] Condition: Fair Referrals: Jaziel Lockhart MD [Primary Care Provider] - 1-2 days Decision Time: 19:40
[2022-09-18] MEDS ORDERED: NITROGLYCERIN SL TABS 0.4 MG TAB SUBLINGUAL PRN (19:37)
[2022-09-18] MEDS ORDERED: ASPIRIN 81 MG PO STA (19:37)
[2022-09-19] MEDS ORDERED: ASPIRIN 325 MG TAB PO SCH (09:00)
[2022-09-19 10:15] LABS: Chol/HDL Ratio 3.52 Ratio; LDL Cholesterol,Calculated 83.4 mg/dL (0.0-131.0); VLDL Calculation 16.76 mg/dL (5.00-40.00)
--- NOTE | 2022-09-19 10:28 | P.CRDCN ---
History of Present Illness History of present illness: HISTORY OF PRESENT ILLNESS: This is a 56-year-old male with a past medical history significant for hypertension, hyperlipidemia, and nicotine dependence. 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 We have been asked to see the patient in consultation for chest pain. Patient examined at the bedside. Patient states he has been having chest pain for the past 2 months. He states that it used to be intermittent but now it is occurring every day and is pretty much constant. He states it feels like a pressure type sensation. He states nothing makes the pain better or worse. He denies any radiation of the pain. He states the pain is not worse with deep inspiration or with chest wall palpation. The patient reports he is a current smoker and smokes presently 1 pack per day. He denies any drug or alcohol use. He denies a family history of coronary artery disease. * EKG reveals sinus mechanism with no signs of acute ischemia * Chest xray negative for acute process * Laboratory data: WBC 9.3. Hemoglobin 16.4. Platelet count 281. Sodium 140. Potassium 4.0. BUN 16. Creatinine 1.50. Troponin negative 3 * Current home cardiac medications include aspirin 81 mg daily, Lipitor 80 mg at night, carvedilol 25 mg twice a day, amlodipine 5 mg at night * Most recent echocardiogram obtained in July 2016 revealed ejection fraction 60- 65% REVIEW OF SYSTEMS: At the time of my exam: CONSTITUTIONAL: Denies fever or chills. HEENT: Denies blurred vision, vision changes, or eye pain. Denies hemoptysis CARDIOVASCULAR: Denies chest pain. Denies orthopnea. Denies PND. Denies palpitations RESPIRATORY: Denies shortness of breath. GASTROINTESTINAL: Denies abdominal pain. Denies nausea or vomiting. HEMATOLOGIC: Denies bleeding disorders. GENITOURINARY: Denies any blood in urine. SKIN: Denies pruitis. Denies rash. PHYSICAL EXAM: VITAL SIGNS: Reviewed. GENERAL: Well-developed in no acute distress. HEENT: Head is normocephalic. Pupils are equal, round. Sclerae anicteric. Mucous membranes of the mouth are moist. Neck supple. No JVD or thyromegaly LUNGS: Respirations even and unlabored. Lungs essentially clear to auscultation bilaterally. HEART: Regular rate and rhythm. S1 and S2 heard. ABDOMEN: Soft. Nondistended. Nontender. EXTREMITIES: Normal range of motion. No clubbing or cyanosis. Peripheral pulses intact. No lower extremity edema NEUROLOGIC: Awake and alert. Oriented x 3. ASSESSMENT: Chest pain, troponin negative x 3 Hypertension Hyperlipidemia Nicotine dependence PLAN: An acute coronary event has been ruled out Resume home cardiac medications Obtain 2-D echo to assess cardiac structure and function Nothing by mouth at midnight Hold Coreg in AM Patient to undergo stress echocardiogram tomorrow Further recommendations pending patient's course Nurse practitioner note has been reviewed by physician. Signing provider agrees with the documented findings, assessment, and plan of care. Past Medical History Past Medical History: CVA/TIA, GERD/Reflux, Hyperlipidemia, Hypertension, Pneumonia, Seizure Disorder Additional Past Medical History / Comment(s): L hemorrhagic stroke-R sided weakness and has had occasions of increased irritability/agitation/isolation, multiple mental health unit admissions, uncontrolled seizures, L pneumothorax with chest tube, migraines History of Any Multi-Drug Resistant Organisms: None Reported Past Surgical History: No Surgical Hx Reported Additional Past Surgical History / Comment(s): COLONOSCOPY w/ POLYPS REMOVED- NEG, bilateral cataract removal, R testicular surgery as a child Past Anesthesia/Blood Transfusion Reactions: No Reported Reaction Additional Past Anesthesia/Blood Transfusion Reaction / Comment(s): Pt has never recieved blood. Past Psychological History: Anxiety, Bipolar, Depression, Panic Disorder Additional Psychological History / Comment(s): previous mental health admissions Smoking Status: Current every day smoker Past Alcohol Use History: None Reported Additional Past Alcohol Use History / Comment(s): past hx of etoh abuse, last drink about 10 yrs ago Past Drug Use History: None Reported Additional Drug Use History / Comment(s): Pt has hx of polysubstance abuse per PMR-Adderall/xanax/flexeril/baclofen. Pt's friend states he has polysubstance abuse with prescription meds/not always his own prescriptions. - Past Family History Father Family Medical History: Cancer, Hyperlipidemia, Hypertension, Prostate Disorder Additional Family Medical History / Comment(s): PROSTATE CA Mother Family Medical History: Osteoarthritis (OA) Additional Family Medical History / Comment(s): MOM IS 71 Medications and Allergies Home Medications Medication Instructions Recorded Confirmed Type Famotidine [Pepcid] 20 mg PO BID #60 tab 11/21/18 09/18/22 Rx carvediloL [Coreg] 25 mg PO BID #60 tablet 07/13/21 09/18/22 Rx Aspirin EC [Ecotrin Low Dose] 81 mg PO HS 09/04/21 09/18/22 History Atorvastatin [Lipitor] 80 mg PO HS 11/07/21 09/18/22 History Zonisamide 200 mg PO BID 11/07/21 09/18/22 History Tamsulosin [Flomax] 0.4 mg PO DAILY 02/20/22 09/18/22 History amLODIPine [Norvasc] 5 mg PO HS 02/20/22 09/18/22 History Baclofen [Lyvispah] 20 mg PO TID 09/18/22 09/18/22 History Magnesium Oxide [Mag-Ox] 400 mg PO HS 09/18/22 09/18/22 History QUEtiapine FUMARATE [SEROquel] 300 mg PO HS 09/18/22 09/18/22 History lamoTRIgine [LaMICtal] 75 mg PO BID 09/18/22 09/18/22 History lamoTRIgine [LaMICtal] 200 mg PO DIRECTED 09/18/22 09/18/22 History Allergies Allergy/AdvReac Type Severity Reaction Status Date / Time No Known Allergies Allergy Verified 09/18/22 20:29 Physical Exam Vitals: Vital Signs Temp Pulse Pulse Resp BP BP Pulse Ox 09/19/22 08:00 97.9 F 64 16 134/78 96 09/19/22 07:25 55 L 18 100/66 95 09/19/22 04:02 59 L 18 92/56 94 L 09/18/22 23:30 64 18 109/72 94 L 09/18/22 18:02 98.5 F 64 18 158/100 96 09/18/22 16:26 98.3 F 67 18 145/84 96 Intake and Output 09/18/22 09/19/22 09/19/22 22:59 06:59 14:59 Other: Weight 81.647 kg 81.647 kg Results 09/18/22 17:32 09/18/22 17:32 Cardiac Enzymes 09/18/22 09/18/22 09/18/22 Range/Units 17:32 17:32 20:33 AST 26 (17-59) U/L Troponin I <0.012 <0.012 (0.000-0.034) ng/mL 09/18/22 Range/Units 23:14 AST (17-59) U/L Troponin I <0.012 (0.000-0.034) ng/mL Coagulation 09/18/22 Range/Units 17:32 PT 10.3 (9.0-12.0) sec APTT 25.4 (22.0-30.0) sec CBC 09/18/22 Range/Units 17:32 WBC 9.3 (3.8-10.6) k/uL RBC 4.86 (4.30-5.90) m/uL Hgb 16.4 (13.0-17.5) gm/dL Hct 48.3 (39.0-53.0) % Plt Count 281 (150-450) k/uL Comprehensive Metabolic Panel 09/18/22 Range/Units 17:32 Sodium 140 (137-145) mmol/L Potassium 4.0 (3.5-5.1) mmol/L Chloride 108 H (98-107) mmol/L Carbon Dioxide 21 L (22-30) mmol/L BUN 16 (9-20) mg/dL Creatinine 1.50 H (0.66-1.25) mg/dL Glucose 109 H (74-99) mg/dL Calcium 9.5 (8.4-10.2) mg/dL AST 26 (17-59) U/L ALT 27 (4-49) U/L Alkaline Phosphatase 99 (38-126) U/L Total Protein 7.8 (6.3-8.2) g/dL Albumin 4.8 (3.5-5.0) g/dL Current Medications Generic Name Dose Route Start Last Admin Trade Name Freq PRN Reason Stop Dose Admin Aspirin 325 mg 09/19/22 09:00 Aspirin 325 Mg Tab PO DAILY PRISCILA Nitroglycerin 0.4 mg 09/18/22 19:37 Nitroglycerin Sl Tabs 0.4 Mg Tab SUBLINGUAL Q5M PRN Chest Pain Intake and Output 09/18/22 09/19/22 09/19/22 22:59 06:59 14:59 Other: Weight 81.647 kg 81.647 kg Patient Weight 09/20/22 06:59 Weight 81.647 kg 09/18/22 17:32 09/18/22 17:32
--- NOTE | 2022-09-19 11:56 | HP ---
HISTORY AND PHYSICAL CHIEF COMPLAINT: Chest pain. HISTORY OF PRESENT ILLNESS: A 56-year-old gentleman with a past medical history of multiple medical problems, CVA, TIA, hypertension, and hyperlipidemia, was admitted with chest pain, which was felt in the anterior part of chest, it is a pressure-type of pain with no associated radiation or diaphoresis or nausea. The patient came to [facility]. Troponins are negative. Cardiology saw the patient. Creatinine is elevated to 1.5. The EKG showed non- progression R-waves. R-waves showed nonspecific changes. Cardiology is planning a stress test tomorrow. There is no history of any fever, rigors, or chills. PAST MEDICAL HISTORY: Reviewed, include hypertension, hyperlipidemia. Rest of the history and rest of the chart is also reviewed. HOME MEDICATIONS: Reviewed include Janumet. Dose and rest of medications reviewed. ALLERGIES: None. FAMILY HISTORY: History of hypertension, hyperlipidemia. Rest reviewed. SOCIAL HISTORY: History of smoking. REVIEW OF SYSTEMS: Fourteen-point review is negative except as mentioned earlier. PHYSICAL EXAMINATION: VITAL SIGNS: Pulse is 59, blood pressure 100/66, respirations 18. HEENT: Conjunctivae normal. NECK: No jugular venous distention. RESPIRATIONS: Breath sounds diminished at the bases. ABDOMEN: Soft and nontender. LEGS: No edema. NERVOUS SYSTEM: No focal deficits. SKIN: No ulcers or rashes. JOINTS: No active deforming arthropathy. LABORATORY DATA: Reviewed. ASSESSMENT: 1. Chest pain, possible unstable angina. 2. Hypertension. 3. Hyperlipidemia. 4. History of seizure disorder. 5. Multiple medical issues. RECOMMENDATIONS: This is a 56-year-old gentleman, who presented with multiple complex medical issues. We will monitor the patient closely. Rule out myocardial infarction. Unstable angina protocol. Closely follow with Cardiology. Possible stress test. Repeat labs. IV fluids. Resume the home medications. Prognosis guarded. Further recommendations to follow. Discussed with the patient. MMODL / IJN: [id number] /
[2022-09-19] MEDS: BACLOFEN 10 MG TAB PO SCH ×3 (12:58→20:58)
[2022-09-19] MEDS: FAMOTIDINE 20 MG TAB PO SCH ×2 (12:58→20:58)
[2022-09-19] MEDS: lamoTRIgine 25 MG TAB PO SCH ×2 (12:58→20:58)
[2022-09-19] MEDS: ZONISAMIDE 100 MG CAP PO SCH ×2 (12:58→20:58)
[2022-09-19] MEDS: TAMSULOSIN 0.4 MG CAP.ER.24H PO SCH (12:59)
--- NOTE | 2022-09-19 14:48 | CA ---
Transthoracic Echo Report Name: Robert Jeronimo Age: 56 Gender: M : 1965 Exam Date: 09/19/2022 13:02 Exam Location: [facility] Ht (in): 67 Wt (lb): 180 Ordering Physician: Kevin Mayberry MD ([id number]) Attending/Referring Phys: Jefe BARROW [employer] Operator Hayde Hollingsworth [facility] Procedure CPT: Indications: Chest Pain Cardiac Hx: Technical Quality: Fair Contrast 1: Total Dose (mL): Contrast 2: Total Dose (mL): MEASUREMENTS (Male / Female) Normal Values 2D ECHO LV Diastolic Diameter PLAX 4.2 cm 4.2 - 5.9 / 3.9 - 5.3 cm LV Systolic Diameter PLAX 2.7 cm IVS Diastolic Thickness 1.0 cm 0.6 - 1.0 / 0.6 - 0.9 cm LVPW Diastolic Thickness 1.0 cm 0.6 - 1.0 / 0.6 - 0.9 cm LV Relative Wall Thickness 0.5 Ascending Aorta Diameter 3.3 cm M-MODE Aortic Root Diameter MM 2.7 cm LA Systolic Diameter MM 3.4 cm LA Ao Ratio MM 1.2 AV Cusp Separation MM 2.0 cm DOPPLER AV Peak Velocity 115.4 cm/s AV Peak Gradient 5.3 mmHg AV Mean Velocity 88.7 cm/s AV Mean Gradient 3.4 mmHg AV Velocity Time Integral 26.7 cm LVOT Peak Velocity 121.1 cm/s LVOT Peak Gradient 5.9 mmHg LVOT Velocity Time Integral 26.9 cm Mitral E Point Velocity 80.1 cm/s Mitral A Point Velocity 74.8 cm/s Mitral E to A Ratio 1.1 MV Deceleration Time 276.0 ms LV E' Lateral Velocity 9.3 cm/s Mitral E to LV E' Lateral Ratio 8.6 LV E' Septal Velocity 8.0 cm/s Mitral E to LV E' Septal Ratio 10.0 Right Atrial Pressure 3.0 mmHg FINDINGS Left Ventricle Mildly increased left ventricular wall thickness. Left ventricular cavity size normal. No obvious regional wall motion abnormalities. Left ventricular ejection fraction is estimated at 55-60%. Right Ventricle Normal right ventricular size and function. Right Atrium Normal right atrial size. Left Atrium Normal left atrial size. Mitral Valve Structurally normal mitral valve. No mitral regurgitation. Aortic Valve Trileaflet aortic valve. No aortic valve stenosis or regurgitation. Tricuspid Valve Structurally normal tricuspid valve. No tricuspid regurgitation. Pulmonic Valve Structurally normal pulmonic valve. No pulmonic regurgitation. Pericardium No pericardial effusion. Echo free space anterior to the right ventricle likely represents a fat pad. Aorta Normal size aortic root and proximal ascending aorta. CONCLUSIONS Normal LV systolic function Previewed by: Dr. Kevin Mayberry MD (Electronically Signed) Final Date: 19 September 2022 14:47
[2022-09-19] MEDS: SODIUM CHLORIDE 0.9% 1,000 ML IV SCH (17:08)
[2022-09-19] MEDS: carvediloL 12.5 MG TAB PO SCH (17:09)
[2022-09-19] MEDS ORDERED: amLODIPine 5 MG TAB PO SCH (21:00)
[2022-09-19] MEDS ORDERED: ATORVASTATIN 80 MG TAB PO SCH (21:00)
[2022-09-19] MEDS ORDERED: MAGNESIUM OXIDE 400 MG TAB PO SCH (21:00)
[2022-09-19] MEDS ORDERED: QUEtiapine 100 MG TAB PO SCH (21:00)
[2022-09-20] MEDS: SODIUM CHLORIDE 0.9% 1,000 ML IV SCH (03:30)
--- NOTE | 2022-09-20 07:37 | P.PN ---
Subjective HISTORY OF PRESENT ILLNESS: This is a 56-year-old male with a past medical history significant for hypertension, hyperlipidemia, and nicotine dependence. 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 We have been asked to see the patient in consultation for chest pain. Patient examined at the bedside. Patient states he has been having chest pain for the past 2 months. He states that it used to be intermittent but now it is occurring every day and is pretty much constant. He states it feels like a pressure type sensation. He states nothing makes the pain better or worse. He denies any radiation of the pain. He states the pain is not worse with deep inspiration or with chest wall palpation. The patient reports he is a current smoker and smokes presently 1 pack per day. He denies any drug or alcohol use. He denies a family history of coronary artery disease. * EKG reveals sinus mechanism with no signs of acute ischemia * Chest xray negative for acute process * Laboratory data: WBC 9.3. Hemoglobin 16.4. Platelet count 281. Sodium 140. Potassium 4.0. BUN 16. Creatinine 1.50. Troponin negative 3 * Current home cardiac medications include aspirin 81 mg daily, Lipitor 80 mg at night, carvedilol 25 mg twice a day, amlodipine 5 mg at night * Most recent echocardiogram obtained in July 2016 revealed ejection fraction 60- 65% 09/20/2022 Patient examined this morning at the bedside. Patient denies any chest pain or pressure. Denies SOB. Echo completed revealing 55-60%. Vital signs are stable. PHYSICAL EXAM: VITAL SIGNS: Reviewed. GENERAL: Well-developed in no acute distress. HEENT: Head is normocephalic. Pupils are equal, round. Sclerae anicteric. Mucous membranes of the mouth are moist. Neck supple. No JVD or thyromegaly LUNGS: Respirations even and unlabored. Lungs essentially clear to auscultation bilaterally. HEART: Regular rate and rhythm. S1 and S2 heard. ABDOMEN: Soft. Nondistended. Nontender. EXTREMITIES: Normal range of motion. No clubbing or cyanosis. Peripheral pulses intact. No lower extremity edema NEUROLOGIC: Awake and alert. Oriented x 3. ASSESSMENT: Chest pain, troponin negative x 3 Hypertension Hyperlipidemia Nicotine dependence PLAN: An acute coronary event has been ruled out Continue current cardiac medications Patient to undergo stress echocardiogram today If negative, patient may be discharged home today from a cardiac standpoint Further recommendations pending patient's course Nurse practitioner note has been reviewed by physician. Signing provider agrees with the documented findings, assessment, and plan of care. Objective - Vital Signs Vital signs: Vital Signs Temp 98.1 F 09/20/22 03:00 Pulse 54 L 09/20/22 03:00 Resp 15 09/20/22 03:00 BP 126/73 09/20/22 03:00 Pulse Ox 97 09/20/22 03:00 FiO2 Intake & Output 09/19/22 09/20/22 09/20/22 18:59 06:59 18:59 Intake Total 236 Balance 236 Weight 81.647 kg Intake: Oral 236 Other: Voiding Method Toilet # Voids 2 2 - Labs CBC & Chem 7: 09/18/22 17:32 09/18/22 17:32 Labs: Abnormal Lab Results - Last 24 Hours (Table) 09/19/22 Range/Units 06:15 HDL Cholesterol 39.80 L (40.00-60.00) mg/dL
[2022-09-20] MEDS: FAMOTIDINE 20 MG TAB PO SCH (08:17)
[2022-09-20] MEDS: lamoTRIgine 25 MG TAB PO SCH (08:17)
[2022-09-20] MEDS: BACLOFEN 10 MG TAB PO SCH (08:17)
[2022-09-20] MEDS: TAMSULOSIN 0.4 MG CAP.ER.24H PO SCH ×2 (08:18→08:21)
[2022-09-20] MEDS: ZONISAMIDE 100 MG CAP PO SCH (08:21)
[2022-09-20 08:39] LABS: Basophils # (A) 0.12 X 10*3/uL (0.00-0.10); Basophils % (A) 1.6 %; Eosinophils % (A) 4.1 %; HGB 15.2 d/dL (12.0-15.0); Lymphocytes # (A) 2.04 X 10*3/uL (0.90-5.00); Lymphocytes % (A) 27.7 %; MCH 33.5 pg (27.0-32.0); MCHC 33.8 d/dL (32.0-37.0); MCV 99.1 FL (80.0-97.0); Mean Platelet Volume 10.3 FL (9.5-12.2); Monocytes # (A) 0.78 X 10*3/uL (0.20-1.00); Monocytes % (A) 10.6 %; NRBC Per 100 WBC 0 X 10*3/uL (0.00-0.01); Neutrophils # (A) 4.11 X 10*3/uL (1.80-7.70); Neutrophils % (A) 55.7 %; Platelet Count 233 X 10*3/uL (140-440); RBC 4.54 X 10*6/uL (4.40-5.60); RDW 12.4 % (11.5-14.5); WBC 7.37 X 10*3/uL (4.50-10.00)
[2022-09-20] MEDS ORDERED: ASPIRIN 81 MG PO SCH (09:00)
[2022-09-20 09:17] LABS: ALT 21 U/L (10-49); AST 14 U/L (14-35); Albumin 4.4 d/dL (3.8-4.9); Alkaline Phosphatase 98 U/L (41-126); Calcium 9.7 mg/dL (8.7-10.3); Carbon Dioxide 19.9 mmol/L (21.6-31.8); Chloride 110 mmol/L (96-109); Glucose 107 mg/dL (70-110); Magnesium 2.3 mg/dL (1.5-2.4); Potassium 4.1 mmol/L (3.5-5.5); Sodium 144 mmol/L (135-145); Total Bilirubin 0.2 mg/dL (0.3-1.2); Total Protein 6.4 d/dL (6.2-8.2)
[2022-09-20] MEDS ORDERED: lamoTRIgine 100 MG TAB PO ONE (09:30)
[2022-09-20] MEDS ORDERED: lamoTRIgine 100 MG TAB PO SCH ×2 (09:30→21:00)
[2022-09-20] MEDS ORDERED: lamoTRIgine 25 MG TAB PO ONE (09:30)
[2022-09-20] MEDS ORDERED: DOBUTamine DRIP for NUC MED 500 MG in DEXTROSE/WATER 1 250ML.BAG IV PRN ×2 (10:30→11:31)
[2022-09-20] MEDS ORDERED: DOBUTamine DRIP for NUC MED 500 MG/250 ML BAG IV ONE (10:45)
[2022-09-20] MEDS: carvediloL 12.5 MG TAB PO SCH (11:50)
[2022-09-20 15:01] VITALS: BP 114/68; PULSE 65; RESP 18; TEMP 98.1
[2022-09-21] MEDS ORDERED: FAMOTIDINE 20 MG TAB PO SCH (09:00)
--- NOTE | 2022-09-21 13:28 | CA ---
Dobutamine Stress Echocardiogram Report Robert Jeronimo Age: 56 Gender: M : 1965 Exam Date: 09/20/2022 10:20 Exam Location: [place] [facility] Ordering Physician: Shila Patel Referring Physician: [id number] Administrator: Inna Watts RDCS Technologist: Ht (in): 67 Wt (lb): 180 Procedure CPT: Indication: CP ICD-9 Codes: Rhythm: Patient History: Chest pain Cardiac Medications: Medications in past 24 hours: Contrast: Total Dose (mL): Stress Results Protocol: Dobutamine Peak Dose (???g/kg/min): 40 Duration (min:sec): Atropine:(mg) Target HR: 138 Double Product: [id number] Resting HR: 61 Resting BP: 124 / 80 Peak HR: 87 Peak BP: 168 / 82 Max Predicted HR: 162 54 % Max Predicted HR Stress Summary: BP Response: Reason for Termination: Infusion complete Cardiac Symptoms: No symptoms ECG Analysis Resting EKG: Stress EKG: Arrhythmia: Echo Analysis Base Echo Analysis: Low Echo Anaylsis: Peak Echo Analysis: Recovery Echo: MEASUREMENTS (Male/Female) Normal Values CONCLUSIONS Patient unable to exercise on a Obi protocol on account of foot pain 2 between stress echo performed No ECG evidence for ischemia Stepwise augmentation of overall LV contractility, without development of any wall motion abnormalities At recovery, regional and global LV systolic function with normal Impression No ECG also ischemia or arrhythmia No echocardiographic evidence for ischemia Dr. Clay Hernández MD (Electronically Signed) Final Date: 20 September 2022 12:12
--- NOTE | 2022-09-25 06:53 | P.DS ---
Providers Date of admission: 09/18/22 19:37 Expected date of discharge: 09/20/22 Attending physician: Ramon Delcid Consults: 09/18/22 19:37 Consult Physician Urgent Consulting Provider: Zenon Cotton Consult Reason/Comments: chest pain Do you want consulting provider notified?: Yes Primary care physician: Jaziel Lockhart Hospital Course: Final diagnosis Chest pain, possible unstable angina, ruled out ACS History of hypertension History of hyperlipidemia History of seizure disorder GI prophylaxis DVT prophylaxis Full code Discharge disposition Patient is being discharged in a stable condition with guarded prognosis to home Patient will follow-up with Dr. Lockhart in the outpatient setting upon discharge. Patient is to follow-up with cardiology outpatient as scheduled. Total time taken is greater than 35 minutes. Hospital course This is a 56-year-old male who was recently admitted with chest pain and pressure being closely monitored. Patient maintained on telemetry monitoring underwent cardiac stress test which was negative and patient has been cleared by consultations for discharge today. Please refer to other consultation notes for further HPI. Currently no reports of chest pain, shortness of breath, or palpitations. Patient is afebrile. No reports of nausea or vomiting and patient is tolerating diet. Patient will be discharged home today. Guarded prognosis. Physical exam: Gen: This is a 48-year-old male who is awake, alert and oriented 3, well- developed, well-nourished HEENT: Head is atraumatic, normocephalic. Pupils equal, round. Sclerae is anicteric. NECK: Supple. No JVD. No lymphadenopathy. No thyromegaly. LUNGS: Clear to auscultation. No wheezes or rhonchi. No intercostal retractions. HEART: Regular rate and rhythm. No murmur. ABDOMEN: Soft. Bowel sounds are present. No masses. No tenderness. EXTREMITIES: No pedal edema. No calf tenderness. NEUROLOGICAL: Patient is awake, alert and oriented x3. Cranial nerves 2 through 12 are grossly intact. Please refer to medication reconciliation sheet for a list of medications. The impression and plan of care has been dictated by Freda Ellis, Nurse Practitioner as directed. Dr. Bhavin MD I have performed a history and examination and MDM of this patient, discussed the same with the dictator, and agree with the dictator's assessment and plan as written ,documented as a scribe. Based on total visit time, I have performed more than 50% of the visit. Patient Condition at Discharge: Fair Plan - Discharge Summary New Discharge Prescriptions: New Nitroglycerin Sl Tabs [Nitrostat] 0.4 mg SUBLINGUAL Q5M PRN #20 tab PRN Reason: Chest Pain Continue Famotidine [Pepcid] 20 mg PO BID #60 tab Atorvastatin [Lipitor] 80 mg PO HS Tamsulosin [Flomax] 0.4 mg PO DAILY QUEtiapine FUMARATE [SEROquel] 300 mg PO HS lamoTRIgine [LaMICtal] 200 mg PO BID carvediloL [Coreg] 25 mg PO BID #60 tablet Aspirin EC [Ecotrin Low Dose] 81 mg PO HS Zonisamide 200 mg PO BID amLODIPine [Norvasc] 5 mg PO HS Magnesium Oxide [Mag-Ox] 400 mg PO HS Baclofen [Lyvispah] 20 mg PO TID Discharge Medication List Famotidine [Pepcid] 20 mg PO BID #60 tab 11/21/18 [Rx] carvediloL [Coreg] 25 mg PO BID #60 tablet 07/13/21 [Rx] Aspirin EC [Ecotrin Low Dose] 81 mg PO HS 09/04/21 [History] Atorvastatin [Lipitor] 80 mg PO HS 11/07/21 [History] Zonisamide 200 mg PO BID 11/07/21 [History] Tamsulosin [Flomax] 0.4 mg PO DAILY 02/20/22 [History] amLODIPine [Norvasc] 5 mg PO HS 02/20/22 [History] Baclofen [Lyvispah] 20 mg PO TID 09/18/22 [History] Magnesium Oxide [Mag-Ox] 400 mg PO HS 09/18/22 [History] QUEtiapine FUMARATE [SEROquel] 300 mg PO HS 09/18/22 [History] lamoTRIgine [LaMICtal] 200 mg PO BID 09/18/22 [History] Nitroglycerin Sl Tabs [Nitrostat] 0.4 mg SUBLINGUAL Q5M PRN #20 tab 09/20/22 [Rx] Follow up Appointment(s)/Referral(s): Jaziel Lockhart MD [Primary Care Provider] - 1-2 days Hima Keyes MD [STAFF PHYSICIAN] - 1 Week (office will call patient with appointment ) Ambulatory/Diagnostic Orders: Basic Metabolic Panel [LAB.AMB] Time Frame: 3 Days, Location: None Selected Patient Instructions/Handouts: Chest Pain (DC) Activity/Diet/Wound Care/Special Instructions: Activity Limited until follow-up Follow-up with cardiology in 1-2 weeks Follow-up with primary care provider on discharge Continue taking medications as prescribed Recommend follow-up labs in the next few days to monitor kidney functions Discharge Disposition: HOME SELF-CARE
== END 2022-09-20 15:13 | disposition home or self-care (01) ==
LOC: EC 16:16 → 6NMEDSUR 19:37
PROVIDERS: ADMIT Hospitalist; ATTEND Hospitalist
DX: R07.89 Other chest pain (principal); I10 Essential (primary) hypertension; E78.00 Pure hypercholesterolemia, unspecified; K21.9 Gastro-esophageal reflux disease without esophagitis; G81.91 Hemiplegia, unspecified affecting right dominant side; G40.909 Epilepsy, unspecified, not intractable, without status epilepticus; R79.89 Other specified abnormal findings of blood chemistry; F17.210 Nicotine dependence, cigarettes, uncomplicated; G43.909 Migraine, unspecified, not intractable, without status migrainosus; I25.2 Old myocardial infarction; F41.0 Panic disorder [episodic paroxysmal anxiety]; F31.9 Bipolar disorder, unspecified; F41.9 Anxiety disorder, unspecified; Z79.82 Long term (current) use of aspirin; Z79.899 Other long term (current) drug therapy; Z86.73 Personal history of transient ischemic attack (TIA), and cerebral infarction without residual deficits; Z87.01 Personal history of pneumonia (recurrent); Z86.010 Personal history of colon polyps; Z98.42 Cataract extraction status, left eye; Z98.41 Cataract extraction status, right eye; Z90.79 Acquired absence of other genital organ(s); Z87.898 Personal history of other specified conditions; Z80.42 Family history of malignant neoplasm of prostate; Z82.49 Family history of ischemic heart disease and other diseases of the circulatory system; Z83.49 Family history of other endocrine, nutritional and metabolic diseases; Z82.61 Family history of arthritis
CPT/HCPCS: 99285; 36415; 93005; 93306; 93351; 80061; 80053 ×2; 80175; 83735 ×2; 84484; 85025 ×2; 85610; 85730; 71046; G0378 ×3; J1250

== ENCOUNTER 2023-04-16 16:00 | Emergency (ER) | payer OTHER ==
[2023-04-16 16:27] LABS: Glucose,Whole Blood 135 mg/dL (70-110)
--- NOTE | 2023-04-16 16:33 | ED ---
General Adult HPI - General Chief complaint: Seizure Stated complaint: Seizure Time Seen by Provider: 04/16/23 16:02 Source: EMS Mode of arrival: EMS Limitations: altered mental status - History of Present Illness Initial comments: Dictation was produced using [employer] dictation software. please excuse any grammatical, word or spelling errors. Chief Complaint: 57-year-old male presents to the emergency department after having had seizure History of Present Illness: Patient is a 57-year-old male who has extensive history of seizure disorder, stroke GERD and dyslipidemia. Patient takes multiple seizure medications. Patient brought in by EMS. EMS provides the history of present illness. EMS states that they are very familiar with the patient. He allegedly had a seizure that lasted for around 10 minutes. EMS states that normally they called to the house for seizure however did not usually last this long and after being monitored for couple minutes he returns to baseline and refuses transfer to the hospital. This time he did not return b ack to baseline after having had a 10-minute seizure. Unable to obtain ROS secondary to mental status - Related Data Home Medications Medication Instructions Recorded Confirmed Aspirin EC [Ecotrin Low Dose] 81 mg PO HS 09/04/21 09/18/22 Atorvastatin [Lipitor] 80 mg PO HS 11/07/21 09/18/22 Zonisamide 200 mg PO BID 11/07/21 09/18/22 Tamsulosin [Flomax] 0.4 mg PO DAILY 02/20/22 09/18/22 amLODIPine [Norvasc] 5 mg PO HS 02/20/22 09/18/22 Baclofen [Lyvispah] 20 mg PO TID 09/18/22 09/18/22 Magnesium Oxide [Mag-Ox] 400 mg PO HS 09/18/22 09/18/22 QUEtiapine FUMARATE [SEROquel] 300 mg PO HS 09/18/22 09/18/22 lamoTRIgine [LaMICtal] 200 mg PO BID 09/18/22 09/20/22 Previous Rx's Medication Instructions Recorded Famotidine [Pepcid] 20 mg PO BID #60 tab 11/21/18 carvediloL [Coreg] 25 mg PO BID #60 tablet 07/13/21 Nitroglycerin Sl Tabs [Nitrostat] 0.4 mg SUBLINGUAL Q5M PRN #20 tab 09/20/22 Allergies Allergy/AdvReac Type Severity Reaction Status Date / Time No Known Allergies Allergy Verified 04/16/23 16:17 Review of Systems ROS Statement: Those systems with pertinent positive or pertinent negative responses have been documented in the HPI. ROS Other: All systems not noted in ROS Statement are negative. Past Medical History Past Medical History: CVA/TIA, GERD/Reflux, Hyperlipidemia, Hypertension, Pneumonia, Seizure Disorder Additional Past Medical History / Comment(s): L hemorrhagic stroke-R sided weakness and has had occasions of increased irritability/agitation/isolation, multiple mental health unit admissions, uncontrolled seizures, L pneumothorax with chest tube, migraines History of Any Multi-Drug Resistant Organisms: None Reported Past Surgical History: No Surgical Hx Reported Additional Past Surgical History / Comment(s): COLONOSCOPY w/ POLYPS REMOVED- NEG, bilateral cataract removal, R testicular surgery as a child Past Anesthesia/Blood Transfusion Reactions: No Reported Reaction Additional Past Anesthesia/Blood Transfusion Reaction / Comment(s): Pt has never recieved blood. Past Psychological History: Anxiety, Bipolar, Depression, Panic Disorder Smoking Status: Current every day smoker Past Alcohol Use History: None Reported Past Drug Use History: None Reported - Past Family History Father Family Medical History: Cancer, Hyperlipidemia, Hypertension, Prostate Disorder Additional Family Medical History / Comment(s): PROSTATE CA Mother Family Medical History: Osteoarthritis (OA) Additional Family Medical History / Comment(s): MOM IS 71 General Exam - General Exam Comments Initial Comments: PHYSICAL EXAM: General Impression: Alert, lethargic HEENT: Normocephalic atraumatic, extra-ocular movements intact, pupils equal and reactive to light bilaterally, mucous membranes moist. Cardiovascular: Heart regular rate and rhythm Chest: no retractions, no tachypnea Abdomen: abdomen soft, non-tender, non-distended, no organomegaly Musculoskeletal: Pulses present and equal in all extremities, no peripheral edema Motor: no focal deficits noted Neurological: Face is symmetrical, patient is lethargic and minimally follows commands, no hyperreflexia to the extremities, no clonus, localizes pain Skin: Intact with no visualized rashes Psych: Normal affect and mood Limitations: altered mental status Course Vital Signs 04/16/23 04/16/23 04/16/23 16:10 16:19 16:21 Temperature 97.9 F Pulse Rate 64 Respiratory 20 Rate Blood Pressure 103/71 O2 Sat by Pulse 83 L 94 L Oximetry 04/16/23 04/16/23 17:49 18:52 Temperature Pulse Rate 60 69 Respiratory 20 20 Rate Blood Pressure 120/79 130/93 O2 Sat by Pulse 91 L 97 Oximetry EKG Findings - EKG Comments: EKG Findings:: My EKG interpretation: Ventricular rate 62, sinus rhythm,. Oh to 59, cures 132, QTc 457. No SC prolongation, no QTC prolongation, no ST or T- wave changes noted. EKG compared to September 18, 2022 showing no changes. Overall, this EKG is unremarkable Medical Decision Making - Medical Decision Making Was pt. sent in by a medical professional or institution (, PA, MIXING TUMBLER OPERATOR, urgent care, hospital, or group home...) When possible be specific @ -No Did you speak to anyone other than the patient for history (EMS, parent, family, police, friend...)? What history was obtained from this source @ -EMS as discussed above Did you review nursing and triage notes (agree or disagree)? Why? @ -I reviewed and agree with nursing and triage notes Were old charts reviewed (outside hosp., previous admission, EMS record, old EKG, old radiological studies, urgent care reports/EKG's, group home records)? Report findings @ -No old charts were reviewed Differential Diagnosis (chest pain, altered mental status, abdominal pain women, abdominal pain men, vaginal bleeding, musculoskeletal, weakness, fever, dyspnea, syncope, headache, dizziness, GI bleed, back pain, seizure, CVA, palpatations, mental health)? @ -Differential Seizure: Recurrent seizure disorder, febrile seizure, alcohol withdrawal, stimulants, meningitis, encephalitis, intercranial hemorrhage, intracranial tumor, stroke, eclampsia, thyrotoxicosis, hypocalcemia, hyponatremia, hypernatremia, hypomagnesemia, psychogenic, this is not meant to be an all-inclusive list. EKG interpreted by me (3pts min.). @ -See above X-rays interpreted by me (1pt min.). @ -None done CT interpreted by me (1pt min.). @ -CT scan the brain shows no acute processes U/S interpreted by me (1pt. min.). @ -None done What testing was considered but not performed or refused? (CT, X-rays, U/S, labs)? Why? @ -Admission was offered however patient refused What meds were considered but not given or refused? Why? @ -None Did you discuss the management of the patient with other professionals (professionals i.e. , PA, MIXING TUMBLER OPERATOR, lab, RT, psych nurse, social services manager, six sigma black trainer, teacher, juvenile detention officer, case sealer)? Give summary @ -No Was smoking cessation discussed for >3mins.? @ -No Was critical care preformed (if so, how long)? @ -No Were there social determinants of health that impacted care today? How? (Homelessness, low income, unemployed, alcoholism, drug addiction, t ransportation, low edu. Level, literacy, decrease access to med. care, [facility], rehab)? @ -No Was there de-escalation of care discussed even if they declined (Discuss DNR or withdrawal of care, Hospice)? DNR status @ -No What co-morbidities impacted this encounter? (DM, HTN, Smoking, COPD, CAD, Cance r, CVA, ARF, Chemo, Hep., AIDS, mental health diagnosis, sleep apnea, morbid obesity)? @ -None Was patient admitted / discharged? Hospital course, mention meds given and route, prescriptions, significant lab abnormalities, going to OR and other pertinent info. @ -57-year-old male presents emergency department with seizure. Patient had prolonged postictal state. Imaging studies were negative. Patient has extensive history of sugars. Initial physical examination shows obtunded male that appears to be in a postictal state. Laboratory evaluation obtained. CBC is unremarkable. Coag panel negative. Metabolic panel shows lactic acidosis. Creatinine is 1.6. CT imaging is negative. Patient reevaluated bedside 7:15 PM he is awake alert oriented times 4 out of 4. Denies any symptoms whatsoever. It is recommended that he be admitted for seizure with prolonged postictal state. Patient refused. He is well-known to our hospital for multiple admissions. States that if he is put in the hospital that they will do nothing again. Patient is going to sign out AGAINST MEDICAL ADVICE after refusing further medical care. He is of sound mind and judgment during the conversation of AMA. Risk and benefits were discussed including risk of and worsening neurologic function. Patient signed out at 7:20 PM. Undiagnosed new problem with uncertain prognosis? @ -No Drug Therapy requiring intensive monitoring for toxicity (Heparin, Nitro, Insulin, Cardizem)? @ -No Were any procedures done? @ -No Diagnosis/symptom? Acute, or Chronic, or Acute on Chronic? Uncomplicated (without systemic symptoms) or Complicated (systemic symptoms)? @ -Seizure complicated by prolonged postictal state Side effects of treatment? @ -No Exacerbation, Progression, or Severe Exacerbation? @ -No Poses a threat to life or bodily function? How? (Chest pain, [place], [place], pneumonia, PE, COPD, DKA, ARF, appy, cholecystitis, CVA, Diverticulitis, Homicidal, Suicidal, threat to staff... and all critical care pts) @ -yes - Lab Data Result diagrams: 04/16/23 16:25 04/16/23 16:25 Lab Results 04/16/23 04/16/23 04/16/23 Range/Units 16:25 16:25 16:25 WBC 10.1 (3.8-10.6) k/uL RBC 4.50 (4.30-5.90) m/uL Hgb 15.0 (13.0-17.5) gm/dL Hct 45.2 (39.0-53.0) % MCV 100.5 H (80.0-100.0) fL MCH 33.3 (25.0-35.0) pg MCHC 33.1 (31.0-37.0) g/dL RDW 12.1 (11.5-15.5) % Plt Count 236 (150-450) k/uL MPV 8.7 Neutrophils % 74 % Lymphocytes % 15 % Monocytes % 5 % Eosinophils % 3 % Basophils % 1 % Neutrophils # 7.5 (1.3-7.7) k/uL Lymphocytes # 1.5 (1.0-4.8) k/uL Monocytes # 0.5 (0-1.0) k/uL Eosinophils # 0.3 (0-0.7) k/uL Basophils # 0.1 (0-0.2) k/uL PT 11.5 (10.0-12.5) sec INR 1.1 (<1.2) APTT 23.3 (22.0-30.0) sec Sodium 139 (137-145) mmol/L Potassium 4.9 (3.5-5.1) mmol/L Chloride 108 H (98-107) mmol/L Carbon Dioxide 15 L (22-30) mmol/L Anion Gap 16 mmol/L BUN 17 (9-20) mg/dL Creatinine 1.60 H (0.66-1.25) mg/dL Est GFR (CKD-EPI)AfAm 54 (>60 ml/min/1.73 sqM) Est GFR (CKD-EPI)NonAf 47 (>60 ml/min/1.73 sqM) Glucose 136 H (74-99) mg/dL POC Glucose (mg/dL) (70-110) mg/dL POC Glu Mortgage Loan Counselor ID Plasma Lactic Acid Shahbaz (0.7-2.0) mmol/L Calcium 9.1 (8.4-10.2) mg/dL Magnesium 2.2 (1.6-2.3) mg/dL Total Bilirubin 0.9 (0.2-1.3) mg/dL AST 41 (17-59) U/L ALT 29 (4-49) U/L Alkaline Phosphatase 95 (38-126) U/L Troponin I (0.000-0.034) ng/mL Total Protein 7.5 (6.3-8.2) g/dL Albumin 4.7 (3.5-5.0) g/dL TSH 3.780 (0.465-4.680) mIU/L 04/16/23 04/16/23 04/16/23 Range/Units 16:25 16:25 16:25 WBC (3.8-10.6) k/uL RBC (4.30-5.90) m/uL Hgb (13.0-17.5) gm/dL Hct (39.0-53.0) % MCV (80.0-100.0) fL MCH (25.0-35.0) pg MCHC (31.0-37.0) g/dL RDW (11.5-15.5) % Plt Count (150-450) k/uL MPV Neutrophils % % Lymphocytes % % Monocytes % % Eosinophils % % Basophils % % Neutrophils # (1.3-7.7) k/uL Lymphocytes # (1.0-4.8) k/uL Monocytes # (0-1.0) k/uL Eosinophils # (0-0.7) k/uL Basophils # (0-0.2) k/uL PT (10.0-12.5) sec INR (<1.2) APTT (22.0-30.0) sec Sodium (137-145) mmol/L Potassium (3.5-5.1) mmol/L Chloride (98-107) mmol/L Carbon Dioxide (22-30) mmol/L Anion Gap mmol/L BUN (9-20) mg/dL Creatinine (0.66-1.25) mg/dL Est GFR (CKD-EPI)AfAm (>60 ml/min/1.73 sqM) Est GFR (CKD-EPI)NonAf (>60 ml/min/1.73 sqM) Glucose (74-99) mg/dL POC Glucose (mg/dL) 135 H (70-110) mg/dL POC Glu Mortgage Loan Counselor ID Clovis Thorne Plasma Lactic Acid Shahbaz 6.3 H* (0.7-2.0) mmol/L Calcium (8.4-10.2) mg/dL Magnesium (1.6-2.3) mg/dL Total Bilirubin (0.2-1.3) mg/dL AST (17-59) U/L ALT (4-49) U/L Alkaline Phosphatase (38-126) U/L Troponin I <0.012 (0.000-0.034) ng/mL Total Protein (6.3-8.2) g/dL Albumin (3.5-5.0) g/dL TSH (0.465-4.680) mIU/L Disposition Clinical Impression: Seizure Disposition: LEFT AGAINST MEDICAL ADVICE Condition: Fair Instructions (If sedation given, give patient instructions): Recurrent Seizures in Adults (ED) Is patient prescribed a controlled substance at d/c from ED?: No Referrals: Jaziel Lockhart MD [Primary Care Provider] - 1-2 days Time of Disposition: 19:22
--- NOTE | 2023-04-16 16:59 | CT ---
EXAMINATION TYPE: CT brain wo con DATE OF EXAM: 04/16/2023 COMPARISON: 11/07/2021 HISTORY: Seizure, prolonged postictal CT DLP: 1183.[address] of the brain was performed. The ventricles, basal cisterns and sulci overlying the cerebral convexities demonstrate mild enlargem ent. Remote insult high left frontal region. There is no evidence for intracranial hemorrhage or sulcal effacement. There is decreased attenuation about the periventricular white matter and deep white matter of both c erebral hemispheres, compatible with chronic small vessel ischemia. Differential diagnosis does inclu de demyelination. No mass effects are seen.No midline shift. Osseous calvarium is intact. If symptoms persist consider MRI. Chronic ethmoidal sinusitis left maxillary sinus. IMPRESSION: 1. Age related atrophic and chronic small vessel ischemic change without acute intracranial process s een at this time.
[2023-04-16 17:20] LABS: Basophils # (A) 0.1 k/uL (0-0.2); Basophils % (A) 1 %; Eosinophils # (A) 0.3 k/uL (0-0.7); Eosinophils % (A) 3 %; HCT 45.2 % (39.0-53.0); Lymphocytes # (A) 1.5 k/uL (1.0-4.8); Lymphocytes % (A) 15 %; MCH 33.3 pg (25.0-35.0); MCHC 33.1 g/dL (31.0-37.0); MCV 100.5 fL (80.0-100.0); Mean Platelet Volume 8.7; Monocytes # (A) 0.5 k/uL (0-1.0); Monocytes % (A) 5 %; Neutrophils # (A) 7.5 k/uL (1.3-7.7); Neutrophils % (A) 74 %; Platelet Count 236 k/uL (150-450); RDW 12.1 % (11.5-15.5); WBC 10.1 k/uL (3.8-10.6)
[2023-04-16 17:35] LABS: INR 1.1 (<1.2); Partial Thromboplastin Time 23.3 sec (22.0-30.0); Prothrombin Time 11.5 sec (10.0-12.5)
[2023-04-16 17:40] LABS: ALT 29 U/L (4-49); AST 41 U/L (17-59); African American GFR (CKD) 54 (>60 ml/min/1.73 sqM); Albumin 4.7 g/dL (3.5-5.0); Alkaline Phosphatase 95 U/L (38-126); Anion Gap 16 mmol/L; Blood Urea Nitrogen 17 mg/dL (9-20); Calcium 9.1 mg/dL (8.4-10.2); Carbon Dioxide 15 mmol/L (22-30); Chloride 108 mmol/L (98-107); Glucose 136 mg/dL (74-99); Magnesium 2.2 mg/dL (1.6-2.3); Non-African American GFR(CKD) 47 (>60 ml/min/1.73 sqM); Sodium 139 mmol/L (137-145); Total Bilirubin 0.9 mg/dL (0.2-1.3); Total Protein 7.5 g/dL (6.3-8.2)
[2023-04-16 17:58] LABS: Potassium 4.9 mmol/L (3.5-5.1)
[2023-04-16 19:36] VITALS: BP 125/85; PULSE 64; RESP 18; TEMP 98
== END 2023-04-16 20:02 | disposition left against medical advice (07) ==
LOC: EC 16:00
DX: R56.9 Unspecified convulsions (principal); I10 Essential (primary) hypertension; E78.5 Hyperlipidemia, unspecified; K21.9 Gastro-esophageal reflux disease without esophagitis; F31.9 Bipolar disorder, unspecified; F41.9 Anxiety disorder, unspecified; F17.200 Nicotine dependence, unspecified, uncomplicated; Z79.82 Long term (current) use of aspirin; Z79.899 Other long term (current) drug therapy; Z53.29 Procedure and treatment not carried out because of patient's decision for other reasons
CPT/HCPCS: 36415; 70450; 80053; 83605; 83735; 84443; 84484; 85025; 85610; 85730; 93005; 99285

== ENCOUNTER 2023-06-14 22:25 | Emergency (ER) | payer OTHER ==
[2023-06-14 23:18] VITALS: RESP 18; TEMP 98.5
--- NOTE | 2023-06-14 23:28 | ED ---
General Adult HPI - General Chief complaint: Seizure Stated complaint: Seizure Time Seen by Provider: 06/14/23 22:32 Source: patient Mode of arrival: EMS - History of Present Illness Initial comments: 57-year-old male well-known to our department with a history of seizures presenting to the ED with a chief complaint of seizure. Patient states known history of seizures and reports that he has been compliant with all his medications. States today he felt aura typical of his seizures and ended up having a seizure which described by EMS focal in nature. At this time, patient reports that he feels back to his normal self and would like to go home. Currently has no complaints. No chest pain, shortness of breath, headache, abdominal pain, nausea, vomiting, diarrhea, fever, chills. No other complaints at this time. - Related Data Home Medications Medication Instructions Recorded Confirmed Aspirin EC [Ecotrin Low Dose] 81 mg PO HS 09/04/21 09/18/22 Atorvastatin [Lipitor] 80 mg PO HS 11/07/21 09/18/22 Zonisamide 200 mg PO BID 11/07/21 09/18/22 Tamsulosin [Flomax] 0.4 mg PO DAILY 02/20/22 09/18/22 amLODIPine [Norvasc] 5 mg PO HS 02/20/22 09/18/22 Baclofen [Lyvispah] 20 mg PO TID 09/18/22 09/18/22 Magnesium Oxide [Mag-Ox] 400 mg PO HS 09/18/22 09/18/22 QUEtiapine FUMARATE [SEROquel] 300 mg PO HS 09/18/22 09/18/22 lamoTRIgine [LaMICtal] 200 mg PO BID 09/18/22 09/20/22 Previous Rx's Medication Instructions Recorded Famotidine [Pepcid] 20 mg PO BID #60 tab 11/21/18 carvediloL [Coreg] 25 mg PO BID #60 tablet 07/13/21 Nitroglycerin Sl Tabs [Nitrostat] 0.4 mg SUBLINGUAL Q5M PRN #20 tab 09/20/22 Allergies Allergy/AdvReac Type Severity Reaction Status Date / Time No Known Allergies Allergy Verified 06/14/23 22:56 Review of Systems ROS Statement: Those systems with pertinent positive or pertinent negative responses have been documented in the HPI. ROS Other: All systems not noted in ROS Statement are negative. Past Medical History Past Medical History: CVA/TIA, GERD/Reflux, Hyperlipidemia, Hypertension, Pneumonia, Seizure Disorder Additional Past Medical History / Comment(s): L hemorrhagic stroke-R sided weakness and has had occasions of increased irritability/agitation/isolation, multiple mental health unit admissions, uncontrolled seizures, L pneumothorax with chest tube, migraines History of Any Multi-Drug Resistant Organisms: None Reported Past Surgical History: No Surgical Hx Reported Additional Past Surgical History / Comment(s): COLONOSCOPY w/ POLYPS REMOVED- NEG, bilateral cataract removal, R testicular surgery as a child Past Anesthesia/Blood Transfusion Reactions: No Reported Reaction Additional Past Anesthesia/Blood Transfusion Reaction / Comment(s): Pt has never recieved blood. Past Psychological History: Anxiety, Bipolar, Depression, Panic Disorder Smoking Status: Current every day smoker Past Alcohol Use History: None Reported Past Drug Use History: None Reported - Past Family History Father Family Medical History: Cancer, Hyperlipidemia, Hypertension, Prostate Disorder Additional Family Medical History / Comment(s): PROSTATE CA Mother Family Medical History: Osteoarthritis (OA) Additional Family Medical History / Comment(s): MOM IS 71 General Exam General appearance: alert, in no apparent distress Head exam: Present: atraumatic, normocephalic Eye exam: Present: normal appearance, PERRL, EOMI Respiratory exam: Present: normal lung sounds bilaterally Cardiovascular Exam: Present: regular rate GI/Abdominal exam: Present: soft, normal bowel sounds. Absent: distended, tenderness, guarding, rebound, rigid Neurological exam: Present: alert, oriented X3, CN II-XII intact Skin exam: Present: warm, dry Course Vital Signs 06/14/23 06/14/23 06/14/23 22:31 23:02 23:44 Temperature 98.5 F Pulse Rate 69 72 68 Respiratory 18 18 18 Rate Blood Pressure 114/81 121/84 119/73 O2 Sat by Pulse 97 96 94 L Oximetry Medical Decision Making - Medical Decision Making Was pt. sent in by a medical professional or institution (, PA, CITY MAGISTRATE, urgent care, hospital, or prison...) When possible be specific @ -No Did you speak to anyone other than the patient for history (EMS, parent, family, police, friend...)? What history was obtained from this source @ -No Did you review nursing and triage notes (agree or disagree)? Why? @ -I reviewed and agree with nursing and triage notes Were old charts reviewed (outside hosp., previous admission, EMS record, old EKG, old radiological studies, urgent care reports/EKG's, prison records)? Report findings @ -Prior charts reviewed showing extensive history of seizures and multiple visits to this facility secondary to those complaints. Differential Diagnosis (chest pain, altered mental status, abdominal pain women, abdominal pain men, vaginal bleeding, weakness, fever, dyspnea, syncope, headache, dizziness, GI bleed, back pain, seizure, CVA, palpatations, mental health, musculoskeletal)? @ -Differential Seizure: Recurrent seizure disorder, febrile seizure, alcohol withdrawal, stimulants, meningitis, encephalitis, intercranial hemorrhage, intracranial tumor, stroke, eclampsia, thyrotoxicosis, hypocalcemia, hyponatremia, hypernatremia, hypomagnesemia, psychogenic, this is not meant to be an all-inclusive list. EKG interpreted by me (3pts min.). @ -None X-rays interpreted by me (1pt min.). @ -None done CT interpreted by me (1pt min.). @ -None done U/S interpreted by me (1pt. min.). @ -None done What testing was considered but not performed or refused? (CT, X-rays, U/S, labs)? Why? @ -None What meds were considered but not given or refused? Why? @ -None Did you discuss the management of the patient with other professionals (professionals i.e. , PA, [employer] MAGIST[employer], lab, RT, psych nurse, professor of social work, animal health technician, teacher, code enforcement officer, case mgr)? Give summary @ -No Was smoking cessation discussed for >3mins.? @ -No Was critical care preformed (if so, how long)? @ -No Were there social determinants of health that impacted care today? How? (Homelessness, low income, unemployed, alcoholism, drug addiction, transportation, low edu. Level, literacy, decrease access to med. care, detention, rehab)? @ -No Was there de-escalation of care discussed even if they declined (Discuss DNR or withdrawal of care, Hospice)? DNR status @ -No What co-morbidities impacted this encounter? (DM, HTN, Smoking, COPD, CAD, Cancer, CVA, ARF, Chemo, Hep., AIDS, mental health diagnosis, sleep apnea, morbid obesity)? @ -Seizure disorder Was patient admitted / discharged? Hospital course, mention meds given and route, prescriptions, significant lab abnormalities, going to OR and other pertinent info. @ -Discharge 57-year-old male presenting to the ED with a chief complaint of seizures. Patient has known history of seizure disorder and has been been compliant with his medications. Patient reports today had aura typical prior to his seizures and reportedly had a focal seizure. At this time patient is back to his normal self. Neurologic exam largely unremarkable. Patient reports that he would like to go home and would not like to have any further testing. Patient discharged home in stable condition. Discussed strict return precautions with patient who verbalized agreement. Undiagnosed new problem with uncertain prognosis? @ -No Drug Therapy requiring intensive monitoring for toxicity (Heparin, Nitro, Insulin, Cardizem)? @ -No Were any procedures done? @ -No Diagnosis/symptom? @ -Seizure Acute, or Chronic, or Acute on Chronic? @ -Acute on chronic Uncomplicated (without systemic symptoms) or Complicated (systemic symptoms)? @ -Complicated Side effects of treatment? @ -No Exacerbation, Progression, or Severe Exacerbation? @ -No Poses a threat to life or bodily function? How? (Chest pain, [place], [place], pneumonia, PE, COPD, DKA, ARF, appy, cholecystitis, CVA, Diverticulitis, Homicidal, Suicidal, threat to staff... and all critical care pts) @ -Unlikely Disposition Clinical Impression: Seizure Disposition: HOME SELF-CARE Condition: Good Instructions (If sedation given, give patient instructions): Recurrent Seizures in Adults (ED) Additional Instructions: Please return to the Emergency Department if symptoms worsen or any other concerns. Please follow-up with your primary care provider and neurologist. Continue taking medications as prescribed. Is patient prescribed a controlled substance at d/c from ED?: No Referrals: Jaziel Lockhart MD [Primary Care Provider] - 1-2 days Time of Disposition: 23:15
[2023-06-14 23:50] VITALS: BP 119/73; PULSE 68
== END 2023-06-15 00:08 | disposition home or self-care (01) ==
LOC: EC 22:25
DX: G40.909 Epilepsy, unspecified, not intractable, without status epilepticus (principal); F17.200 Nicotine dependence, unspecified, uncomplicated
CPT/HCPCS: 99285

== ENCOUNTER 2023-06-20 18:22 | Inpatient (IN) | payer OTHER ==
--- NOTE | 2023-06-20 19:18 | ED ---
General Adult HPI - General Chief complaint: Neuro Symptoms/Deficit Stated complaint: Weakness Time Seen by Provider: 06/20/23 18:30 Source: patient, EMS, RN notes reviewed, old records reviewed Mode of arrival: EMS Limitations: no limitations - History of Present Illness Initial comments: This is a 57-year-old male who presents to the emergency department stating that since she is had a stroke 6 years ago he had some right-sided deficit. Patient states the last time he had a seizure he was in the hospital and ever since then his right side has been weaker. Patient states he is at the point where he feels as though he is not can to be able to use his walker and get around and he comes in because he thinks he needs rehabilitation again. Patient denies any recent fall or injury patient denies any fever chills or cough or patient has any chest pain difficult breathing shortness of breath. Patient denies any nausea vomiting diarrhea. Patient has any abdominal pain. - Related Data Home Medications Medication Instructions Recorded Confirmed Aspirin EC [Ecotrin Low Dose] 81 mg PO HS 09/04/21 06/20/23 Atorvastatin [Lipitor] 80 mg PO DAILY 11/07/21 06/20/23 Tamsulosin [Flomax] 0.4 mg PO DAILY 02/20/22 06/20/23 amLODIPine [Norvasc] 5 mg PO DAILY 02/20/22 06/20/23 Baclofen [Lyvispah] 20 mg PO TID 09/18/22 06/20/23 Magnesium Oxide [Mag-Ox] 400 mg PO DAILY 09/18/22 06/20/23 QUEtiapine FUMARATE [SEROquel] 300 mg PO DIRECTED 09/18/22 06/20/23 lamoTRIgine [LaMICtal] 200 mg PO BID 09/18/22 06/20/23 Brivaracetam [Briviact] 100 mg PO BID 06/20/23 06/20/23 Cholecalciferol [Vitamin D3 (25 50 mcg PO DAILY 06/20/23 06/20/23 Mcg = 1000 Iu)] Clopidogrel [Plavix] 75 mg PO DAILY 06/20/23 06/20/23 lamoTRIgine [LaMICtal] 75 mg PO BID 06/20/23 06/20/23 Previous Rx's Medication Instructions Recorded Famotidine [Pepcid] 20 mg PO BID #60 tab 09/05/19 carvediloL [Coreg] 25 mg PO BID #60 tablet 07/13/21 Nitroglycerin Sl Tabs [Nitrostat] 0.4 mg SUBLINGUAL Q5M PRN #20 tab 09/20/22 Allergies Allergy/AdvReac Type Severity Reaction Status Date / Time No Known Allergies Allergy Verified 06/20/23 18:37 Review of Systems ROS Statement: Those systems with pertinent positive or pertinent negative responses have been documented in the HPI. ROS Other: All systems not noted in ROS Statement are negative. Past Medical History Past Medical History: CVA/TIA, GERD/Reflux, Hyperlipidemia, Hypertension, Pneumo eula, Seizure Disorder Additional Past Medical History / Comment(s): L hemorrhagic stroke-R sided weakness and has had occasions of increased irritability/agitation/isolation, multiple mental health unit admissions, uncontrolled seizures, L pneumothorax with chest tube, migraines History of Any Multi-Drug Resistant Organisms: None Reported Past Surgical History: No Surgical Hx Reported Additional Past Surgical History / Comment(s): COLONOSCOPY w/ POLYPS REMOVED- NEG, bilateral cataract removal, R testicular surgery as a child Past Anesthesia/Blood Transfusion Reactions: No Reported Reaction Additional Past Anesthesia/Blood Transfusion Reaction / Comment(s): Pt has never recieved blood. Past Psychological History: Anxiety, Bipolar, Depression, Panic Disorder Smoking Status: Current every day smoker Past Alcohol Use History: None Reported Past Drug Use History: None Reported - Past Family History Father Family Medical History: Cancer, Hyperlipidemia, Hypertension, Prostate Disorder Additional Family Medical History / Comment(s): PROSTATE CA Mother Family Medical History: Osteoarthritis (OA) Additional Family Medical History / Comment(s): MOM IS 71 General Exam - General Exam Comments Initial Comments: GENERAL: Patient is well-developed and well-nourished. Patient is nontoxic and well- hydrated and is in no acute distress. ENT: Neck is soft and supple. No significant lymphadenopathy is noted. Oropharynx is clear. Moist mucous membranes. Neck has full range of motion without eliciting any pain. EYES: The sclera were anicteric and conjunctiva were pink and moist. Extraocular movements were intact and pupils were equal round and reactive to light. Eyelids were unremarkable. PULMONARY: Unlabored respirations. Good breath sounds bilaterally. No audible rales rhonchi or wheezing was noted. CARDIOVASCULAR: There is a regular rate and rhythm without any murmurs gallops or rubs. ABDOMEN: Soft and nontender with normal bowel sounds. SKIN: Skin is clear with no lesions or rashes and otherwise unremarkable. NEUROLOGIC: Patient is alert and oriented x3. Cranial nerves II through XII are grossly intact. Normal speech, volume and content. Symmetrical smile. MUSCULOSKELETAL: Patient has weakness in the right arm and leg for out of 5 compared to the left side LYMPHATICS: No significant lymphadenopathy is noted PSYCHIATRIC: Normal psychiatric evaluation. Limitations: no limitations Course Vital Signs 06/20/23 18:25 Temperature 98.5 F Pulse Rate 75 Respiratory 20 Rate Blood Pressure 138/87 O2 Sat by Pulse 95 Oximetry Medical Decision Making - Medical Decision Making EKG is interpreted by myself. EKG shows a sinus rhythm at 64 bpm NH interval is 232 QRS is 124 QT interval is 443 QTc is 452. Patient's EKG shows no ST segment ovation or depression Was pt. sent in by a medical professional or institution (, PA, LOANS CONSULTANT, urgent care, hospital, or fpc...) When possible be specific @ -No Did you speak to anyone other than the patient for history (EMS, parent, family, police, friend...)? What history was obtained from this source @ -No Did you review nursing and triage notes (agree or disagree)? Why? @ -I reviewed and agree with nursing and triage notes Were old charts reviewed (outside hosp., previous admission, EMS record, old E KG, old radiological studies, urgent care reports/EKG's, fpc records)? Report findings @ -I reviewed patient's prior CT scan to compare to the current CT scan. I also looked at the patient's prior lab work. And compared to today's lab work. Differential Diagnosis (chest pain, altered mental status, abdominal pain women, abdominal pain men, vaginal bleeding, weakness, fever, dyspnea, syncope, headache, dizziness, GI bleed, back pain, seizure, CVA, palpatations, mental health, musculoskeletal)? @ -Differential Seizure: Recurrent seizure disorder, febrile seizure, alcohol withdrawal, stimulants, meningitis, encephalitis, intercranial hemorrhage, intracranial tumor, stroke, eclampsia, thyrotoxicosis, hypocalcemia, hyponatremia, hypernatremia, hypomagnesemia, psychogenic, this is not meant to be an all-inclusive list. EKG interpreted by me (3pts min.). @ -As above X-rays interpreted by me (1pt min.). @ -None done CT interpreted by me (1pt min.). @ -CT scan showed no acute abnormality U/S interpreted by me (1pt. min.). @ -None done What testing was considered but not performed or refused? (CT, X-rays, U/S, labs)? Why? @ -None What meds were considered but not given or refused? Why? @ -None Did you discuss the management of the patient with other professionals (professionals i.e. , PA, LOANS CONSULTANT, lab, RT, psych nurse, drug abuse social worker, landfill gas collection operator, teacher, chief fundraising officer, case management manager)? Give summary @ -I spoke with [facility]ist they agreed to admit the patient Was smoking cessation discussed for >3mins.? @ -No Was critical care preformed (if so, how long)? @ -No Were there social determinants of health that impacted care today? How? (Homelessness, low income, unemployed, alcoholism, drug addiction, transportation, low edu. Level, literacy, decrease access to med. care, senior living, rehab)? @ -No Was there de-escalation of care discussed even if they declined (Discuss DNR or withdrawal of care, Hospice)? DNR status @ -No What co-morbidities impacted this encounter? (DM, HTN, Smoking, COPD, CAD, Cancer, CVA, ARF, Chemo, Hep., AIDS, mental health diagnosis, sleep apnea, morbid obesity)? @ -None Was patient admitted / discharged? Hospital course, mention meds given and route, prescriptions, significant lab abnormalities, going to OR and other pertinent info. @ -Patient's lab work was unremarkable. I spoke with [facility] they agreed admit the patient admit the patient wrote admitting orders Undiagnosed new problem with uncertain prognosis? @ -No Drug Therapy requiring intensive monitoring for toxicity (Heparin, Nitro, Insulin, Cardizem)? @ -No Were any procedures done? @ -No Diagnosis/symptom? @ -Right-sided weakness Acute, or Chronic, or Acute on Chronic? @ -Acute on chronic Uncomplicated (without systemic symptoms) or Complicated (systemic symptoms)? @ -Complicated Side effects of treatment? @ -No Exacerbation, Progression, or Severe Exacerbation? @ -No Poses a threat to life or bodily function? How? (Chest pain, [place], [place], pneumonia, PE, COPD, DKA, ARF, appy, cholecystitis, CVA, Diverticulitis, Homicidal, Suicidal, threat to staff... and all critical care pts) @ -No - Lab Data Result diagrams: 06/20/23 19:20 06/20/23 19:20 Lab Results 06/20/23 06/20/23 06/20/23 Range/Units 19:20 19:20 19:20 WBC 9.7 (3.8-10.6) k/uL RBC 5.01 (4.30-5.90) m/uL Hgb 16.4 (13.0-17.5) gm/dL Hct 49.3 (39.0-53.0) % MCV 98.4 (80.0-100.0) fL MCH 32.7 (25.0-35.0) pg MCHC 33.2 (31.0-37.0) g/dL RDW 11.9 (11.5-15.5) % Plt Count 279 (150-450) k/uL MPV 7.9 Neutrophils % 72 % Lymphocytes % 13 % Monocytes % 8 % Eosinophils % 4 % Basophils % 1 % Neutrophils # 7.0 (1.3-7.7) k/uL Lymphocytes # 1.3 (1.0-4.8) k/uL Monocytes # 0.7 (0-1.0) k/uL Eosinophils # 0.4 (0-0.7) k/uL Basophils # 0.1 (0-0.2) k/uL PT 10.7 (10.0-12.5) sec INR 1.0 (<1.2) APTT 25.7 (22.0-30.0) sec Sodium 140 (137-145) mmol/L Potassium 4.5 (3.5-5.1) mmol/L Chloride 107 (98-107) mmol/L Carbon Dioxide 20 L (22-30) mmol/L Anion Gap 13 mmol/L BUN 20 (9-20) mg/dL Creatinine 1.63 H (0.66-1.25) mg/dL Est GFR (CKD-EPI)AfAm 53 (>60 ml/min/1.73 sqM) Est GFR (CKD-EPI)NonAf 45 (>60 ml/min/1.73 sqM) Glucose 96 (74-99) mg/dL Calcium 9.6 (8.4-10.2) mg/dL Total Bilirubin 0.6 (0.2-1.3) mg/dL AST 26 (17-59) U/L ALT 20 (4-49) U/L Alkaline Phosphatase 109 (38-126) U/L Creatine Kinase 49 L (55-170) U/L Troponin I (0.000-0.034) ng/mL Total Protein 7.4 (6.3-8.2) g/dL Albumin 4.7 (3.5-5.0) g/dL 06/20/23 Range/Units 19:20 WBC (3.8-10.6) k/uL RBC (4.30-5.90) m/uL Hgb (13.0-17.5) gm/dL Hct (39.0-53.0) % MCV (80.0-100.0) fL MCH (25.0-35.0) pg MCHC (31.0-37.0) g/dL RDW (11.5-15.5) % Plt Count (150-450) k/uL MPV Neutrophils % % Lymphocytes % % Monocytes % % Eosinophils % % Basophils % % Neutrophils # (1.3-7.7) k/uL Lymphocytes # (1.0-4.8) k/uL Monocytes # (0-1.0) k/uL Eosinophils # (0-0.7) k/uL Basophils # (0-0.2) k/uL PT (10.0-12.5) sec INR (<1.2) APTT (22.0-30.0) sec Sodium (137-145) mmol/L Potassium (3.5-5.1) mmol/L Chloride (98-107) mmol/L Carbon Dioxide (22-30) mmol/L Anion Gap mmol/L BUN (9-20) mg/dL Creatinine (0.66-1.25) mg/dL Est GFR (CKD-EPI)AfAm (>60 ml/min/1.73 sqM) Est GFR (CKD-EPI)NonAf (>60 ml/min/1.73 sqM) Glucose (74-99) mg/dL Calcium (8.4-10.2) mg/dL Total Bilirubin (0.2-1.3) mg/dL AST (17-59) U/L ALT (4-49) U/L Alkaline Phosphatase (38-126) U/L Creatine Kinase (55-170) U/L Troponin I <0.012 (0.000-0.034) ng/mL Total Protein (6.3-8.2) g/dL Albumin (3.5-5.0) g/dL Disposition Clinical Impression: Right sided weakness Disposition: ADMITTED IP TO THIS HOSP Referrals: Jaziel Lockhart MD [Primary Care Provider] - 1-2 days Time of Disposition: 20:18
[2023-06-20 19:26] LABS: Basophils # (A) 0.1 k/uL (0-0.2); Basophils % (A) 1 %; Eosinophils # (A) 0.4 k/uL (0-0.7); Eosinophils % (A) 4 %; HCT 49.3 % (39.0-53.0); HGB 16.4 gm/dL (13.0-17.5); Lymphocytes # (A) 1.3 k/uL (1.0-4.8); Lymphocytes % (A) 13 %; MCH 32.7 pg (25.0-35.0); MCHC 33.2 g/dL (31.0-37.0); MCV 98.4 fL (80.0-100.0); Mean Platelet Volume 7.9; Monocytes # (A) 0.7 k/uL (0-1.0); Monocytes % (A) 8 %; Neutrophils % (A) 72 %; Platelet Count 279 k/uL (150-450); RBC 5.01 m/uL (4.30-5.90); RDW 11.9 % (11.5-15.5); WBC 9.7 k/uL (3.8-10.6)
[2023-06-20 19:36] LABS: Partial Thromboplastin Time 25.7 sec (22.0-30.0); Prothrombin Time 10.7 sec (10.0-12.5)
[2023-06-20 19:47] LABS: ALT 20 U/L (4-49); AST 26 U/L (17-59); African American GFR (CKD) 53 (>60 ml/min/1.73 sqM); Albumin 4.7 g/dL (3.5-5.0); Alkaline Phosphatase 109 U/L (38-126); Anion Gap 13 mmol/L; Blood Urea Nitrogen 20 mg/dL (9-20); Calcium 9.6 mg/dL (8.4-10.2); Carbon Dioxide 20 mmol/L (22-30); Chloride 107 mmol/L (98-107); Creatine Kinase 49 U/L (55-170); Glucose 96 mg/dL (74-99); Non-African American GFR(CKD) 45 (>60 ml/min/1.73 sqM); Potassium 4.5 mmol/L (3.5-5.1); Sodium 140 mmol/L (137-145); Total Bilirubin 0.6 mg/dL (0.2-1.3); Total Protein 7.4 g/dL (6.3-8.2)
[2023-06-20] MEDS: ASPIRIN 325 MG TAB PO STA (20:56)
--- NOTE | 2023-06-20 21:47 | CT ---
EXAMINATION TYPE: CT brain wo con CT DLP: 1091.4 mGycm, Automated exposure control for dose reduction was used. DATE OF EXAM: 06/20/2023 8:30 PM COMPARISON: CT 04/16/2023. CLINICAL INDICATION:Male, 57 years old with history of Neuro deficit, acute, stroke suspected, diffic ulty walking TECHNIQUE: Brain: Axial CT images of the brain were obtained with coronal and sagittal reformats created and rev iewed. Contrast used: None. Oral contrast used: None. FINDINGS: Mild atrophy with mild commensurate enlargement of the CSF spaces, as before. No significant white ma tter abnormalities by CT, however mild chronic ischemic changes cannot be excluded. No acute intracranial hemorrhage, midline shift, or mass effect. There is slightly asymmetric appearance of the right parieto-occipital region compared to the left wi th asymmetrically small occipital horn, however the appearance is stable from prior and this is most compatible with anatomic variation. There is no definite new loss of werner/white matter distinction to suggest acute territorial infarct. Basilar cisterns are patent. There is a small structure of near CSF attenuation seen axial image 41 which appears to lie at the an terior aspect of the parietal lobe, this appears similar to prior and of uncertain etiology but very likely benign such as sequela of remote insult or a cystic structure such as arachnoid cyst. There is no evidence of calvarial fracture. The left mid and anterior ethmoid air cells are nearly co mpletely opacified, similar to prior, likely from mucosal thickening versus polyps. Other paranasal s inuses appear clear. Mastoid air cells are clear. There are mild calcifications of the ICAs suggested at the skull base. Orbits and extra cranial soft tissues show no acute or concerning abnormality. MRI is more sensitive for detecting acute processes such as infarct, and may be considered if clinica lly warranted. IMPRESSION: Overall stable intracranial findings. No CT evidence of an acute intracranial abnormality.
[2023-06-21] MEDS ORDERED: NITROGLYCERIN SL TABS 0.4 MG TAB SUBLINGUAL PRN (07:36)
[2023-06-21] MEDS ORDERED: ACETAMINOPHEN TAB 325 MG TAB PO PRN (07:37)
[2023-06-21] MEDS ORDERED: ASPIRIN 325 MG TAB PO SCH (09:00)
[2023-06-21] MEDS: BRIVARACETAM 50 MG PO SCH (09:07)
[2023-06-21] MEDS: CLOPIDOGREL 75 MG TAB PO SCH (09:10)
[2023-06-21] MEDS: FAMOTIDINE 20 MG TAB PO SCH ×2 (09:10→22:56)
[2023-06-21] MEDS: TAMSULOSIN 0.4 MG CAP.ER.24H PO SCH (09:10)
[2023-06-21] MEDS: CHOLECALCIFEROL 25 MCG (1000 IU) TABLET PO SCH (09:10)
[2023-06-21] MEDS: lamoTRIgine 100 MG TAB PO SCH (09:10)
[2023-06-21] MEDS: MAGNESIUM OXIDE 400 MG TAB PO SCH (09:10)
[2023-06-21] MEDS: ATORVASTATIN 80 MG TAB PO SCH (09:10)
[2023-06-21] MEDS: HEPARIN SODIUM,PORCINE 5,000 UNIT/ML 1 ML VIAL SQ SCH (09:11)
[2023-06-21] MEDS: carvediloL 12.5 MG TAB PO SCH (09:15)
[2023-06-21] MEDS: lamoTRIgine 25 MG TAB PO SCH ×2 (09:16→22:56)
[2023-06-21 10:08] LABS: Chol/HDL Ratio 3.54 Ratio; LDL Cholesterol,Calculated 85.8 mg/dL (0.0-131.0)
[2023-06-21 10:41] LABS: African American GFR (CKD) 73 (>60 ml/min/1.73 sqM); Anion Gap 10 mmol/L; Blood Urea Nitrogen 23 mg/dL (9-20); Calcium 9.1 mg/dL (8.4-10.2); Carbon Dioxide 21 mmol/L (22-30); Chloride 109 mmol/L (98-107); Glucose 104 mg/dL (74-99); Magnesium 2.1 mg/dL (1.6-2.3); Non-African American GFR(CKD) 63 (>60 ml/min/1.73 sqM); Sodium 140 mmol/L (137-145)
--- NOTE | 2023-06-21 15:03 | P.HPIM ---
History of Present Illness H&P Date: 06/21/23 This is a 57-year-old male who presented to the emergency department via EMS with increased weakness with [place] right-sided deficits. Patient follows with Dr. Lockhart in the outpatient setting with a past medical history of CVA/TIA, GERD, hyperlipidemia, hypertension, seizure disorder poststroke, migraines, anxiety, bipolar depression, panic disorder. Patient reports to continued ongoing nicotine dependence daily and denies any other drug use or alcohol use. Patient takes a number of psychiatric medications as well as attempted seizure medications although reports nothing has been helping. Patient reports since his for stroke 5 or 6 years ago he has had seizures and difficulty with right- sided weakness. Patient reports over the last few days and 2 weeks he has been progressively becoming more weak and reports to having a seizure although unsure of when but reported significant right-sided weakness that has developed into allowing him not to walk and is also having difficulty using a walker. Patient was admitted with neurological evaluation along with PT/OT therapy and social work for possible ECF. Patient reports he had gone to [facility] previously for continued rehab which helped. Patient also reports he was seeing Dr. Patino previously neurology although he does not accept his insurance and was discharged from his practice. Patient does have an upcoming appointment with Dr. Burr next week to establish. Patient also was mentioning following up in the [facility] system for possible surgical intervention regarding his continued seizures. CT brain showed overall stable intracranial findings with no evidence of acute intracranial abnormality. Labs reviewed showing normal CBC, sodium 140, potassium 4.0, BUN 20, creatinine 1.63, LFTs within normal limits, magn esium 2.1, troponin negative, cholesterol panel ordered and pending REVIEW OF SYSTEMS: CONSTITUTIONAL: No fever, no malaise, no fatigue. HEENT: No recent visual problems or hearing problems. Denied any sore throat. CARDIOVASCULAR: No chest pain, orthopnea, PND, no palpitations, no syncope. PULMONARY: No shortness of breath, no cough, no hemoptysis. GASTROINTESTINAL: No diarrhea, no nausea, no vomiting, no abdominal pain. NEUROLOGICAL: No headaches, reports of right-sided weakness, reports of right leg numbness. Reports gait dysfunction HEMATOLOGICAL: Denies any bleeding or petechiae. GENITOURINARY: Denies any burning micturition, frequency, or urgency. MUSCULOSKELETAL/RHEUMATOLOGICAL: Denies any joint pain, swelling, or any muscle pain. ENDOCRINE: Denies any polyuria or polydipsia. The rest of the 14-point review of systems is negative. PHYSICAL EXAMINATION: GENERAL: The patient is alert and oriented x3, not in any acute distress. Well developed, well nourished. HEENT: Pupils are round and equally reacting to light. EOMI. No scleral icterus. No conjunctival pallor. Normocephalic, atraumatic. No pharyngeal erythema. No thyromegaly. CARDIOVASCULAR: S1 and S2 present. No murmurs, rubs, or gallops. PULMONARY: Chest is clear to auscultation, no wheezing or crackles. ABDOMEN: Soft, nontender, nondistended, normoactive bowel sounds. No palpable organomegaly. MUSCULOSKELETAL: No joint swelling or deformity. EXTREMITIES: No cyanosis, clubbing, or pedal edema. NEUROLOGICAL: Gross neurological examination did not reveal any focal deficits. Diffusely weak SKIN: No rashes. Assessment: Right-sided weakness with history of CVA/TIA and reported right-sided deficits since History of seizures status post CVA following with neurology outpatient discussing possible surgical intervention for uncontrolled seizures GERD Hyperlipidemia Hypertension History of left hemorrhagic stroke with right-sided weakness History of anxiety, bipolar, depression, panic disorder Continued ongoing nicotine dependence Gait dysfunction with generalized weakness GI prophylaxis DVT prophylaxis Full code Plan: Patient was admitted with neurology on consult and is currently pending. CT of the brain shows no acute intracranial process noted. Will await neurological workup Recommend PT/OT therapy evaluation as patient feels weak and would like to go to rehab. Social work consulted and pending patient would like to go to [facility]. Patient reports he was previously at [facility] although they did not have much equipment for physical therapy. Home medications reviewed and resumed Discussed complete tobacco cessation and medication compliance Patient will need outpatient follow-up with his neurologist to establish next week as scheduled with Dr. Burr The impression and plan of care has been dictated by Freda Ellis, Nurse Practitioner as directed. Dr. Lu MD I have performed a history and examination and MDM of this patient, discussed the same with the dictator, and agree with the dictator's assessment and plan as written ,documented as a scribe. Based on total visit time, I have performed more than 50% of the visit. Past Medical History Past Medical History: CVA/TIA, GERD/Reflux, Hyperlipidemia, Hypertension, Pneumonia, Seizure Disorder Additional Past Medical History / Comment(s): L hemorrhagic stroke-R sided weakness and has had occasions of increased irritability/agitation/isolation, multiple mental health unit admissions, uncontrolled seizures, L pneumothorax with chest tube, migraines History of Any Multi-Drug Resistant Organisms: None Reported Past Surgical History: No Surgical Hx Reported Additional Past Surgical History / Comment(s): COLONOSCOPY w/ POLYPS REMOVED- NEG, bilateral cataract removal, R testicular surgery as a child Past Anesthesia/Blood Transfusion Reactions: No Reported Reaction Additional Past Anesthesia/Blood Transfusion Reaction / Comment(s): Pt has never recieved blood. Past Psychological History: Anxiety, Bipolar, Depression, Panic Disorder Additional Psychological History / Comment(s): previous mental health admissions Smoking Status: Current every day smoker Past Alcohol Use History: None Reported Additional Past Alcohol Use History / Comment(s): past hx of etoh abuse, last drink about 10 yrs ago Past Drug Use History: None Reported Additional Drug Use History / Comment(s): Pt has hx of polysubstance abuse per PMR-Adderall/xanax/flexeril/baclofen. Pt's friend states he has polysubstance abuse with prescription meds/not always his own prescriptions. - Past Family History Father Family Medical History: Cancer, Hyperlipidemia, Hypertension, Prostate Disorder Additional Family Medical History / Comment(s): PROSTATE CA Mother Family Medical History: Osteoarthritis (OA) Additional Family Medical History / Comment(s): MOM IS 71 Medications and Allergies Home Medications Medication Instructions Recorded Confirmed Type Famotidine [Pepcid] 20 mg PO BID #60 tab 11/21/18 06/20/23 Rx carvediloL [Coreg] 25 mg PO BID #60 tablet 07/13/21 06/20/23 Rx Aspirin EC [Ecotrin Low Dose] 81 mg PO HS 09/04/21 06/20/23 History Atorvastatin [Lipitor] 80 mg PO DAILY 11/07/21 06/20/23 History Tamsulosin [Flomax] 0.4 mg PO DAILY 02/20/22 06/20/23 History amLODIPine [Norvasc] 5 mg PO DAILY 02/20/22 06/20/23 History Baclofen [Lyvispah] 20 mg PO TID 09/18/22 06/20/23 History Magnesium Oxide [Mag-Ox] 400 mg PO DAILY 09/18/22 06/20/23 History QUEtiapine FUMARATE [SEROquel] 300 mg PO HS 09/18/22 06/21/23 History lamoTRIgine [LaMICtal] 200 mg PO BID 09/18/22 06/20/23 History Nitroglycerin Sl Tabs [Nitrostat] 0.4 mg SUBLINGUAL Q5M PRN #20 tab 09/20/22 06/20/23 Rx Brivaracetam [Briviact] 100 mg PO BID 06/20/23 06/20/23 History Cholecalciferol [Vitamin D3 (25 50 mcg PO DAILY 06/20/23 06/20/23 History Mcg = 1000 Iu)] Clopidogrel [Plavix] 75 mg PO DAILY 06/20/23 06/20/23 History lamoTRIgine [LaMICtal] 75 mg PO BID 06/20/23 06/20/23 History Allergies Allergy/AdvReac Type Severity Reaction Status Date / Time No Known Allergies Allergy Verified 06/20/23 18:37 Physical Exam Vitals: Vital Signs Temp Pulse Pulse Resp BP BP Pulse Ox 06/21/23 07:00 98.4 F 58 L 16 102/70 93 L 06/21/23 02:03 98.4 F 86 15 108/71 98 06/20/23 23:36 98.3 F 59 L 16 164/90 94 L 06/20/23 23:22 67 18 132/73 95 06/20/23 23:19 67 18 132/73 95 06/20/23 22:19 67 18 119/90 95 06/20/23 21:19 64 18 137/89 94 L 06/20/23 21:11 70 18 137/89 95 06/20/23 20:19 65 18 151/61 96 06/20/23 18:25 98.5 F 75 20 138/87 95 Intake and Output 06/20/23 06/21/23 06/21/23 22:59 06:59 14:59 Other: # Voids 2 Weight 81.647 kg Results CBC & Chem 7: 06/20/23 19:20 06/21/23 10:07 Labs: Abnormal Lab Results - Last 24 Hours (Table) 06/20/23 Range/Units 19:20 Carbon Dioxide 20 L (22-30) mmol/L Creatinine 1.63 H (0.66-1.25) mg/dL Creatine Kinase 49 L (55-170) U/L Thrombosis Risk Factor Assmnt - DVT/VTE Prophylaxis DVT/VTE Prophylaxis: Pharmacologic Prophylaxis ordered Assessment and Plan Time with Patient: Greater than 30
--- NOTE | 2023-06-21 16:00 | P.CNNES ---
History of Present Illness Consult date: 06/21/23 Requesting physician: Owen Roach Reason for Consult: Right-sided weakness History of Present Illness: Patient is a 57-year-old right-handed male, with history of previous CVA with residual right hemiparesis, medically intractable seizure disorder, came to the hospital by ambulance yesterday at 6:22 PM for breakthrough seizure. Patient states that he had a seizure couple weeks ago and then went to rehab at [facility]. He was doing very well, and just got out of the rehab about a week ago. He was walking fairly well no need for walker. Patient had a breakthrough seizure for which she was brought to the hospital. Patient states that he can feel seizure coming on, which consist of an "electric bolt in the right arm and then his right arm started shaking and then the leg and then his right cheek started stevie rashi twitching. The seizure lasted about 2 minutes although lately there has been lasting longer and sometimes up to 10 to 20 minutes. He does not drop to the ground, and he remembers most of the sequence of events during the seizure. Patient states that he is having seizure about once a month. Patient was following up with [facility], and underwent 14-day of video EEG monitoring as an inpatient and was diagnosed with seizures. He was put on Lamictal. He was scheduled for epilepsy surgery in September 2022, but the procedure was canceled at the last minute, as the doctor felt sick. Patient used to follow-up with Dr. Lai, but now was scheduled to be seen by Dr. Fermin office, and has an appointment on 06/30/2023 for new consultation. Most recently, he has been started on Briviact 100 mg twice daily. Patient states whenever he has a seizure, his right side gets more weaker. It feels like a wet noodle. He has been having difficulty walking since his last seizure and has been walking using a walker "inch by inch". EMS flowsheet not available in the chart. Vital signs on arrival blood pressure 138/87, pulse rate 75 temperature 98.5. Blood test shows normal CBC PT PTT, normal CMP, BUN was 20, creatinine 1.63, which is improved now. Troponin is negative, CK normal. EKG shows sinus rhythm with first-degree AV block CT head reported mild atrophy. No acute process. Stable findings as compared to previous CAT scan from 04/16/2023. Patient does take aspirin 81 mg, Plavix 75 mg Lipitor 80 mg, Coreg, Pepcid, amlodipine, Flomax, Seroquel, Lamictal 200 mg twice daily, baclofen 20 mg 3 times daily, Lamictal 75 mg twice daily, Briviact 100 mg twice daily Patient states he is very compliant with the medication, never misses his dose. Patient states that whenever he takes his morning medications all at the same time, he cannot walk even with his walker. He stumbles, falls, crawls to the toilet and sometimes even cannot get up to the toilet. He sees double, triple vision at that time. Therefore he has been taking his morning medications "bit by bit", as he takes 1 pill, then waits for half an hour and takes the other 1. At night he takes his Seroquel, and when he is ready for sleep, he takes his medication and goes to sleep. Suspect Lamictal toxicity. Patient has been seen by myself previously on 02/14/2021 for breakthrough seizures. 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 Patient follows up with Dr. Ramirez. Patient has previously tried Vimpat and Lamictal. On the last time he was seen in the hospital, he was taking Lamictal 225 mg twice a day and zonisamide 200 mg twice a day. His zonisamide level was therapeutic 22 (10-40), and Lamictal level was 7.7 (2-15). On review of records, it appears patient was previously on Dilantin 200 mg 3 times a day back in April 2017. He also was on Vimpat 150 mg twice a day in the past. He was started on Lamictal on 04/23/[address] Muhammad. He also has previously tried Keppra, Trileptal, zonisamide. Patient still smokes 1 pack/day. He quit drinking long time ago. Patient is limited to level 14.1 (2-15) on 05/07/2023. Review of Systems Constitutional: Denies chills, Denies fever Eyes: denies blurred vision, denies pain, denies loss of vision Ears: deny: decreased hearing, ear discharge Ears, nose, mouth and throat: Denies headache, Denies sore throat Cardiovascular: Reports lightheadedness, Denies chest pain, Denies shortness of breath Respiratory: Denies cough, Denies excessive sputum Gastrointestinal: Denies abdominal pain, Denies diarrhea, Denies nausea, Denies vomiting Musculoskeletal: Denies low back pain, Denies neck pain Integumentary: Denies pruritus, Denies rash Neurological: Reports as per HPI Psychiatric: Reports anxiety, Reports depression Past Medical History Past Medical History: CVA/TIA, GERD/Reflux, Hyperlipidemia, Hypertension, Pneumonia, Seizure Disorder Additional Past Medical History / Comment(s): L hemorrhagic stroke-R sided weakness and has had occasions of increased irritability/agitation/isolation, multiple mental health unit admissions, uncontrolled seizures, L pneumothorax with chest tube, migraines History of Any Multi-Drug Resistant Organisms: None Reported Past Surgical History: No Surgical Hx Reported Additional Past Surgical History / Comment(s): COLONOSCOPY w/ POLYPS REMOVED- NEG, bilateral cataract removal, R testicular surgery as a child Past Anesthesia/Blood Transfusion Reactions: No Reported Reaction Additional Past Anesthesia/Blood Transfusion Reaction / Comment(s): Pt has never recieved blood. Past Psychological History: Anxiety, Bipolar, Depression, Panic Disorder Additional Psychological History / Comment(s): previous mental health admissions Smoking Status: Current every day smoker Past Alcohol Use History: None Reported Additional Past Alcohol Use History / Comment(s): past hx of etoh abuse, last drink about 10 yrs ago Past Drug Use History: None Reported Additional Drug Use History / Comment(s): Pt has hx of polysubstance abuse per PMR-Adderall/xanax/flexeril/baclofen. Pt's friend states he has polysubstance abuse with prescription meds/not always his own prescriptions. - Past Family History Father Family Medical History: Cancer, Hyperlipidemia, Hypertension, Prostate Disorder Additional Family Medical History / Comment(s): PROSTATE CA Mother Family Medical History: Osteoarthritis (OA) Additional Family Medical History / Comment(s): MOM IS 71 Medications and Allergies Home Medications Medication Instructions Recorded Confirmed Type Famotidine [Pepcid] 20 mg PO BID #60 tab 11/21/18 06/20/23 Rx carvediloL [Coreg] 25 mg PO BID #60 tablet 07/13/21 06/20/23 Rx Aspirin EC [Ecotrin Low Dose] 81 mg PO HS 09/04/21 06/20/23 History Atorvastatin [Lipitor] 80 mg PO DAILY 11/07/21 06/20/23 History Tamsulosin [Flomax] 0.4 mg PO DAILY 02/20/22 06/20/23 History amLODIPine [Norvasc] 5 mg PO DAILY 02/20/22 06/20/23 History Baclofen [Lyvispah] 20 mg PO TID 09/18/22 06/20/23 History Magnesium Oxide [Mag-Ox] 400 mg PO DAILY 09/18/22 06/20/23 History QUEtiapine FUMARATE [SEROquel] 300 mg PO HS 09/18/22 06/21/23 History lamoTRIgine [LaMICtal] 200 mg PO BID 09/18/22 06/20/23 History Nitroglycerin Sl Tabs [Nitrostat] 0.4 mg SUBLINGUAL Q5M PRN #20 tab 09/20/22 06/20/23 Rx Brivaracetam [Briviact] 100 mg PO BID 06/20/23 06/20/23 History Cholecalciferol [Vitamin D3 (25 50 mcg PO DAILY 06/20/23 06/20/23 History Mcg = 1000 Iu)] Clopidogrel [Plavix] 75 mg PO DAILY 06/20/23 06/20/23 History lamoTRIgine [LaMICtal] 75 mg PO BID 06/20/23 06/20/23 History Allergies Allergy/AdvReac Type Severity Reaction Status Date / Time No Known Allergies Allergy Verified 06/20/23 18:37 Physical Examination - Vital Signs Vital Signs: Vital Signs Temp Pulse Pulse Resp BP BP Pulse Ox 06/21/23 09:10 16 06/21/23 07:00 98.4 F 58 L 16 102/70 93 L 06/21/23 02:03 98.4 F 86 15 108/71 98 06/20/23 23:36 98.3 F 59 L 16 164/90 94 L 06/20/23 23:22 67 18 132/73 95 06/20/23 23:19 67 18 132/73 95 06/20/23 22:19 67 18 119/90 95 06/20/23 21:19 64 18 137/89 94 L 06/20/23 21:11 70 18 137/89 95 06/20/23 20:19 65 18 151/61 96 06/20/23 18:25 98.5 F 75 20 138/87 95 Intake and Output 06/20/23 06/21/23 06/21/23 22:59 06:59 14:59 Other: Voiding Method Toilet # Voids 2 Weight 81.647 kg Patient is a middle aged male, in no acute distress. Patient is alert awake oriented to time place and person. Speech and language functions are normal. Patient can name and repeat very well. No aphasia, although patient is slightly dysarthric. Attention, concentration and fund of knowledge is adequate. On cranial nerve examination, pupils are equal, round and reacting to light, visual callejas are full on confrontation, with no neglect on double simultaneous stimulation. Extraocular muscles are intact, and there is mild nystagmus noted at the end gaze. Face is slightly asymmetric, with droopiness on the right side, is tongue protrudes to the midline, with no evidence of tongue laceration. Palatal elevation and sensation normal, hearing and shoulder shrug normal, facial sensation normal. On muscle strength testing, there is right pronator drift and the strength is (right/left) deltoid 4/5, biceps 5/5, triceps 5/5, grip wrapper 5/5. In the lower limbs hip flexion 5-/5, ankle dorsiflexion 5/5. Deep tendon reflexes are symmetric (right/left) [] Sensory to touch is equal with no neglect on double simultaneous stimulation. Cerebellar function showed mild ataxia for [id number]-[id number] testing bilaterally. No dysdiadochokinesia. He has at least moderate ataxia for gjib-[id number] testing on either side, right side worse. Tone and bulk of muscles normal. Gait patient walked with a walker to the bathroom, was quite unsteady. He was taking short steps. On general examination, there is no carotid bruit or murmur, S1-S2 audible. Chest is clear on consultation. Abdomen is soft nontender. No organomegaly, bowel sounds present. Peripheral pulses are present. No peripheral edema. Results - Laboratory Findings CBC and BMP: 06/20/23 19:20 06/22/23 06:27 Abnormal Lab Findings: Abnormal Labs 06/20/23 06/21/23 19:20 10:07 Chloride 109 H Carbon Dioxide 20 L 21 L BUN 23 H Creatinine 1.63 H Glucose 104 H Creatine Kinase 49 L Assessment and Plan Assessment: * Gait imbalance, dizziness, falls, diplopia, ataxia, likely due to Lamictal toxicity. He is on Lamictal 275 mg twice a day, which is a fairly high dose. On previous admissions, his dose was decreased to 225 mg twice daily because of Lamictal toxicity, but now is back on high-dose for unclear cause. * Breakthrough seizure * Post stroke epilepsy, medically intractable * History of left parietal hemorrhagic stroke in 2014 with mild residual right hemiparesis. * History of tobacco use * Hypertension * Depression Plan: * Stat Lamictal level. Also check B12, folate, B6 levels. * Patient initially did not want changes in his seizure medication. He just wanted to go to rehabilitation. Informed him that his falls and all symptoms are likely related to Lamictal toxicity. He did agree to decrease Lamictal to 225 mg twice daily. * Continue Briviact 100 mg twice daily. * Patient is a fall risk. * Observe overnight. * Continue aspirin, Plavix 75 mg and Lipitor 80 mg. * Recommend complete tobacco cessation. * Patient need to follow-up with [facility] for further management of his medically intractable epilepsy. He may be a candidate for epilepsy surgery versus VNS. * Neurology will follow. Thank you for the consult.
[2023-06-21] MEDS: ASPIRIN 81 MG PO SCH (22:57)
[2023-06-22] MEDS ORDERED: FAMOTIDINE 20 MG TAB PO SCH (09:00)
[2023-06-22] MEDS: BACLOFEN 10 MG TAB PO SCH (09:52)
[2023-06-22 10:38] LABS: BUN/Creat Ratio 16.31 Ratio (12.00-20.00); Blood Urea Nitrogen 21.2 mg/dL (9.0-27.0); Calcium 9.4 mg/dL (8.7-10.3); Carbon Dioxide 20.5 mmol/L (21.6-31.8); Chloride 107 mmol/L (96-109); Glucose 91 mg/dL (70-110); Potassium 4.1 mmol/L (3.5-5.5); Sodium 141 mmol/L (135-145)
[2023-06-22] MEDS: QUEtiapine 100 MG TAB PO SCH (21:53)
--- NOTE | 2023-06-23 04:35 | P.PN ---
Subjective Progress Note Date: 06/22/23 This is a 57-year-old male who presented to the emergency department via EMS with increased weakness with [place] right-sided deficits. Patient follows with Dr. Lockhart in the outpatient setting with a past medical history of CVA/TIA, GERD, hyperlipidemia, hypertension, seizure disorder poststroke, migraines, anxiety, bipolar depression, panic disorder. Patient reports to continued ongoing nicotine dependence daily and denies any other drug use or alcohol use. Patient takes a number of psychiatric medications as well as attempted seizure medications although reports nothing has been helping. Patient reports since his for stroke 5 or 6 years ago he has had seizures and difficulty with right-s ided weakness. Patient reports over the last few days and 2 weeks he has been progressively becoming more weak and reports to having a seizure although unsure of when but reported significant right-sided weakness that has developed into allowing him not to walk and is also having difficulty using a walker. Patient was admitted with neurological evaluation along with PT/OT therapy and social work for possible ECF. Patient reports he had gone to [facility] previously for continued rehab which helped. Patient also reports he was seeing Dr. Patino previously neurology although he does not accept his insurance and was discharged from his practice. Patient does have an upcoming appointment with Dr Julia Burr next week to establish. Patient also was mentioning following up in the [facility] system for possible surgical intervention regarding his continued seizures. CT brain showed overall stable intracranial findings with no evidence of acute intracranial abnormality. Labs reviewed showing normal CBC, sodium 140, potassium 4.0, BUN 20, creatinine 1.63, LFTs within normal limits, magnesium 2.1, troponin negative, cholesterol panel ordered and pending 06/22/2023 Patient is seen in follow-up today reports to feeling continued weakness on the right side. Patient followed by neurology with concerns of toxicity from Lamictal as patient was taking a high dose. Lamictal level pending. Patient seen and evaluated by physical therapy recommending rehab with social work following. Patient currently denies any chest pain, shortness of breath, or palpitations. Patient tolerating diet with no reported nausea or vomiting. Patient has been encouraged to increase activity as tolerated. Patient will require insurance authorization to ECF. Review of systems: Constitutional: No reports of fatigue, fever, or chills Cardiovascular: No reports of chest pain or palpitations Respiratory: No reports of shortness of breath or cough GI: No reports of nausea, vomiting, or diarrhea : No reports of dysuria or retention Neurovascular:reports of generalized weakness and continued right side weakness especially the right lower extremity The rest of the 14-point review of systems is negative. PHYSICAL EXAMINATION: GENERAL: The patient is alert and oriented x3, not in any acute distress. Well developed, well nourished. Elderly appearing, unkempt HEENT: Pupils are round and equally reacting to light. EOMI. No scleral icterus. No conjunctival pallor. Normocephalic, atraumatic. No pharyngeal erythema. No thyromegaly. CARDIOVASCULAR: S1 and S2 present. No murmurs, rubs, or gallops. PULMONARY: Chest is clear to auscultation, no wheezing or crackles. ABDOMEN: Soft, nontender, nondistended, normoactive bowel sounds. No palpable organomegaly. MUSCULOSKELETAL: No joint swelling or deformity. EXTREMITIES: No cyanosis, clubbing, or pedal edema. NEUROLOGICAL: Gross neurological examination did not reveal any focal deficits. Diffusely weak SKIN: No rashes. Assessment: Right-sided weakness with concerns of Lamictal toxicity, Lamictal level is 17.6 history of CVA/TIA with residual right-sided deficits since History of seizures status post CVA, following with neurology outpatient discussing possible surgical intervention for uncontrolled seizures, continue outpatient follow-up at [facility] GERD Hyperlipidemia Hypertension History of left hemorrhagic stroke with right-sided weakness History of anxiety, bipolar, depression, panic disorder Continued ongoing nicotine dependence Gait dysfunction with generalized weakness GI prophylaxis DVT prophylaxis Full code Plan: Patient was admitted with neurology following. CT of the brain shows no acute intracranial process noted. Concerns for possible toxicity from Lamictal as patient is taking an extremely high dose. Lamictal level is 17.6 and dose has been decreased. Patient will need close outpatient follow-up monitoring this. PT/OT evaluated the patient recommending rehab and patient is agreeable. Social work consulted and following as patient would like to go to [facility]. [facility] has denied the patient although [facility] has excepted pending insurance authorization. Home medications reviewed and resumed Discussed complete tobacco cessation and medication compliance Patient will need outpatient follow-up with his neurologist to establish next week as scheduled with Dr. Burr as well as [facility] follow-up Possible discharge planning in the next 24 hours The impression and plan of care has been dictated by Freda Ellis, Nurse Practitioner as directed. Dr. Lu MD I have performed a history and examination and MDM of this patient, discussed the same with the dictator, and agree with the dictator's assessment and plan as written ,documented as a scribe. Based on total visit time, I have performed more than 50% of the visit. Objective - Vital Signs Vital signs: Vital Signs Temp 97.6 F 06/22/23 07:25 Pulse 59 L 06/22/23 07:25 Resp 18 06/22/23 07:25 BP 111/74 06/22/23 07:25 Pulse Ox 96 06/22/23 07:25 FiO2 Intake & Output 06/21/23 06/22/23 06/22/23 18:59 06:59 18:59 Intake Total 220 Balance 220 Intake: Oral 220 Other: Voiding Method Toilet Toilet # Voids 1 1 1 - Labs CBC & Chem 7: 06/20/23 19:20 06/22/23 06:27 Labs: Abnormal Lab Results - Last 24 Hours (Table) 06/21/23 Range/Units 10:07 Chloride 109 H (98-107) mmol/L Carbon Dioxide 21 L (22-30) mmol/L BUN 23 H (9-20) mg/dL Glucose 104 H (74-99) mg/dL
--- NOTE | 2023-06-23 09:27 | P.PN ---
Subjective Progress Note Date: 06/22/23 Patient was seen for a follow-up. Patient is laying comfortably in the bed. He just wants to go to rehab. No new concerns. No seizures. No rash. Objective - Vital Signs Vital signs: Vital Signs Temp 98 F 06/22/23 14:29 Pulse 61 06/22/23 14:29 Resp 17 06/22/23 14:29 BP 142/75 06/22/23 14:29 Pulse Ox 98 06/22/23 14:29 FiO2 Intake & Output 06/21/23 06/22/23 06/22/23 18:59 06:59 18:59 Intake Total 220 118 Balance 220 118 Intake: Oral 220 118 Other: Voiding Method Toilet Toilet Toilet # Voids 1 1 2 - Exam Patient has ataxia for [id number] testing bilaterally, right more than left, but much better. In the lower limbs, there is ataxia only the right leg, and also that looks better. - Labs CBC & Chem 7: 06/20/23 19:20 06/22/23 06:27 Labs: Abnormal Lab Results - Last 24 Hours (Table) 06/21/23 06/22/23 Range/Units 17:47 06:27 Carbon Dioxide 20.5 L (21.6-31.8) mmol/L Anion Gap 13.50 H (4.00-12.00) mmol/L Lamotrigine 17.6 H (2.0-15.0) ug/mL Assessment and Plan Assessment: * Lamictal toxicity. Patient has presented with gait imbalance, dizziness, falls, diplopia, ataxia, likely due to Lamictal toxicity. He is on Lamictal 275 mg twice a day, which is a fairly high dose. On previous admissions, his dose was decreased to 225 mg twice daily because of Lamictal toxicity, but now was back on high-dose for unclear cause. * Breakthrough seizure * Post stroke epilepsy, medically intractable * History of left parietal hemorrhagic stroke in 2015 with mild residual right hemiparesis. * History of tobacco use * Hypertension * Depression Plan: * Lamictal level 17.6 (2-15). Patient's Lamictal dose decreased from 275 mg twice a day down to 225 mg twice a day. * B12 778, folate 17.6, B6 levels. * Patient initially did not want changes in his seizure medication. He just wanted to go to rehabilitation. Informed him that his falls and all symptoms are likely related to Lamictal toxicity. He did agree to decrease Lamictal to 225 mg twice daily. * Continue Briviact 100 mg twice daily. * Patient is a fall risk. * Continue aspirin, Plavix 75 mg and Lipitor 80 mg. * Recommend complete tobacco cessation. * Patient need to follow-up with [facility] for further management of his medically intractable epilepsy. He may be a candidate for epilepsy surgery versus VNS. * Neurologically clear, when patients balance comes back to baseline, and cleared by PT OT.
--- NOTE | 2023-06-23 15:33 | P.PN ---
Subjective Progress Note Date: 06/23/23 This is a 57-year-old male who presented to the emergency department via EMS with increased weakness with [place] right-sided deficits. Patient follows with Dr. Lockhart in the outpatient setting with a past medical history of CVA/TIA, GERD, hyperlipidemia, hypertension, seizure disorder poststroke, migraines, anxiety, bipolar depression, panic disorder. Patient reports to continued ongoing nicotine dependence daily and denies any other drug use or alcohol use. Patient takes a number of psychiatric medications as well as attempted seizure medications although reports nothing has been helping. Patient reports since his for stroke 5 or 6 years ago he has had seizures and difficulty with right-sided weakness. Patient reports over the last few days and 2 weeks he has been progressively becoming more weak and reports to having a seizure although unsure of when but reported significant right-sided weakness that has developed into allowing him not to walk and is also having difficulty using a walker. Patient was admitted with neurological evaluation along with PT/OT therapy and social work for possible ECF. Patient reports he had gone to [facility] previously for continued rehab which helped. Patient also reports he was seeing Dr. Patino previously neurology although he does not accept his insurance and was discharged from his practice. Patient does have an upcoming appointment with Dr. Burr next week to establish. Patient also was mentioning following up in the [facility] system for possible surgical intervention regarding his continued seizures. CT brain showed overall stable intracranial findings with no evidence of acute intracranial abnormality. Labs reviewed showing normal CBC, sodium 140, potassium 4.0, BUN 20, creatinine 1.63, LFTs within normal limits, magnesium 2.1, troponin negative, cholesterol panel ordered and pending 06/22/2023 Patient is seen in follow-up today reports to feeling continued weakness on the right side. Patient followed by neurology with concerns of toxicity from Lamictal as patient was taking a high dose. Lamictal level pending. Patient seen and evaluated by physical therapy recommending rehab with social work following. Patient currently denies any chest pain, shortness of breath, or palpitations. Patient tolerating diet with no reported nausea or vomiting. Patient has been encouraged to increase activity as tolerated. Patient will require insurance authorization to ECF. 06/23/2023 Patient is evaluated in follow-up today. He continues to report weakness in the right side. Lamictal dose was decreased by neurology down to 225 mg twice a day and patient is agreements to this. He is still pending authorization for disc harge to subacute rehab. Review of systems: Constitutional: No reports of fatigue, fever, or chills Cardiovascular: No reports of chest pain or palpitations Respiratory: No reports of shortness of breath or cough GI: No reports of nausea, vomiting, or diarrhea : No reports of dysuria or retention Neurovascular:reports of generalized weakness and continued right side weakness especially the right lower extremity The rest of the 14-point review of systems is negative. PHYSICAL EXAMINATION: GENERAL: The patient is alert and oriented x3, not in any acute distress. Well developed, well nourished. Elderly appearing, unkempt HEENT: Pupils are round and equally reacting to light. EOMI. No scleral icterus. No conjunctival pallor. Normocephalic, atraumatic. No pharyngeal erythema. No thyromegaly. CARDIOVASCULAR: S1 and S2 present. No murmurs, rubs, or gallops. PULMONARY: Chest is clear to auscultation, no wheezing or crackles. ABDOMEN: Soft, nontender, nondistended, normoactive bowel sounds. No palpable organomegaly. MUSCULOSKELETAL: No joint swelling or deformity. EXTREMITIES: No cyanosis, clubbing, or pedal edema. NEUROLOGICAL: Gross neurological examination did not reveal any focal deficits. Diffusely weak SKIN: No rashes. Assessment: Right-sided weakness with concerns of Lamictal toxicity, Lamictal level is 17.6 history of CVA/TIA with residual right-sided deficits since History of seizures status post CVA, following with neurology outpatient discussing possible surgical intervention for uncontrolled seizures, continue outpatient follow-up at [facility] GERD Hyperlipidemia Hypertension History of left hemorrhagic stroke with right-sided weakness History of anxiety, bipolar, depression, panic disorder Continued ongoing nicotine dependence Gait dysfunction with generalized weakness GI prophylaxis DVT prophylaxis Full code Plan: Patient was admitted with neurology following. CT of the brain shows no acute intracranial process noted. Concerns for possible toxicity from Lamictal as patient is taking an extremely high dose. Lamictal level is 17.6 and dose has been decreased. Patient will need close outpatient follow-up monitoring this. PT/OT evaluated the patient recommending rehab and patient is agreeable. Social work consulted and following as patient would like to go to [facility]. [facility] has denied the patient although [facility] has excepted pending insurance authorization. Home medications reviewed and resumed Discussed complete tobacco cessation and medication compliance Patient will need outpatient follow-up with his neurologist to establish next week as scheduled with Dr. Burr as well as [facility] follow-up Did not receive insurance authorization today on Sunday and discharge will not have to wait until Sunday. The impression and plan of care has been dictated by Mary Beebe, Nurse Practitioner as directed. Dr. Lu MD I have performed a history and physical examination and medical decision making of this patient, discussed the same with the dictator, and agree with the dictators assessment and plan as written, documented as a scribe. Based on total visit time, I have performed more than 50% of this visit. Objective - Vital Signs Vital signs: Vital Signs Temp 97.9 F 06/23/23 07:00 Pulse 58 L 06/23/23 07:00 Resp 16 06/23/23 07:00 BP 139/85 06/23/23 07:00 Pulse Ox 99 06/23/23 07:00 FiO2 Intake & Output 06/22/23 06/23/23 06/23/23 18:59 06:59 18:59 Intake Total 236 118 Balance 236 118 Intake: Oral 236 118 Other: Voiding Method Toilet Toilet # Voids 2 1 1 - Labs CBC & Chem 7: 06/20/23 19:20 06/22/23 06:27 Assessment and Plan Time with Patient: Less than 30
--- NOTE | 2023-06-24 15:36 | P.PN ---
Subjective Progress Note Date: 06/24/23 This is a 57-year-old male who presented to the emergency department via EMS with increased weakness with [place] right-sided deficits. Patient follows with Dr. Lockhart in the outpatient setting with a past medical history of CVA/TIA, GERD, hyperlipidemia, hypertension, seizure disorder poststroke, migraines, anxiety, bipolar depression, panic disorder. Patient reports to continued ongoing nicotine dependence daily and denies any other drug use or alcohol use. Patient takes a number of psychiatric medications as well as attempted seizure medications although reports nothing has been helping. Patient reports since his for stroke 5 or 6 years ago he has had seizures and difficulty with right-sided weakness. Patient reports over the last few days and 2 weeks he has been progressively becoming more weak and reports to having a seizure although unsure of when but reported significant right-sided weakness that has developed into allowing him not to walk and is also having difficulty using a walker. Patient was admitted with neurological evaluation along with PT/OT therapy and social work for possible ECF. Patient reports he had gone to [facility] previously for continued rehab which helped. Patient also reports he was seeing Dr. Patino previously neurology although he does not accept his insurance and was discharged from his practice. Patient does have an upcoming appointment with Dr. Burr next week to establish. Patient also was mentioning following up in the [facility] system for possible surgical intervention regarding his continued seizures. CT brain showed overall stable intracranial findings with no evidence of acute intracranial abnormality. Labs reviewed showing normal CBC, sodium 140, potassium 4.0, BUN 20, creatinine 1.63, LFTs within normal limits, magnesium 2.1, troponin negative, cholesterol panel ordered and pending 06/22/2023 Patient is seen in follow-up today reports to feeling continued weakness on the right side. Patient followed by neurology with concerns of toxicity from Lamictal as patient was taking a high dose. Lamictal level pending. Patient seen and evaluated by physical therapy recommending rehab with social work following. Patient currently denies any chest pain, shortness of breath, or palpitations. Patient tolerating diet with no reported nausea or vomiting. Patient has been encouraged to increase activity as tolerated. Patient will require insurance authorization to ECF. 06/23/2023 Patient is evaluated in follow-up today. He continues to report weakness in the right side. Lamictal dose was decreased by neurology down to 225 mg twice a day and patient is agreements to this. He is still pending authorization for disc harge to subacute rehab. 06/24/2023 Patient is evaluated in follow up. No acute complaints overnight. He is tolerating diet. He has mostly been sleeping. Continues on decreased lamictal dose with no evidence for any further breakthrough seizures. Patient is pending insurance auth for discharge to [facility]. Review of systems: Constitutional: No reports of fatigue, fever, or chills Cardiovascular: No reports of chest pain or palpitations Respiratory: No reports of shortness of breath or cough GI: No reports of nausea, vomiting, or diarrhea : No reports of dysuria or retention Neurovascular:reports of generalized weakness and continued right side weakness especially the right lower extremity The rest of the 14-point review of systems is negative. PHYSICAL EXAMINATION: GENERAL: The patient is alert and oriented x3, not in any acute distress. Well developed, well nourished. Elderly appearing, unkempt HEENT: Pupils are round and equally reacting to light. EOMI. No scleral icterus. No conjunctival pallor. Normocephalic, atraumatic. No pharyngeal erythema. No thyromegaly. CARDIOVASCULAR: S1 and S2 present. No murmurs, rubs, or gallops. PULMONARY: Chest is clear to auscultation, no wheezing or crackles. ABDOMEN: Soft, nontender, nondistended, normoactive bowel sounds. No palpable organomegaly. MUSCULOSKELETAL: No joint swelling or deformity. EXTREMITIES: No cyanosis, clubbing, or pedal edema. NEUROLOGICAL: Gross neurological examination did not reveal any focal deficits. Diffusely weak SKIN: No rashes. Assessment: Right-sided weakness with concerns of Lamictal toxicity, Lamictal level is 17.6 history of CVA/TIA with residual right-sided deficits since History of seizures status post CVA, following with neurology outpatient discussing possible surgical intervention for uncontrolled seizures, continue outpatient follow-up at [facility] GERD Hyperlipidemia Hypertension History of left hemorrhagic stroke with right-sided weakness History of anxiety, bipolar, depression, panic disorder Continued ongoing nicotine dependence Gait dysfunction with generalized weakness GI prophylaxis DVT prophylaxis Full code Plan: Patient was admitted with neurology following. CT of the brain shows no acute intracranial process noted. Concerns for possible toxicity from Lamictal as patient is taking an extremely high dose. Lamictal level is 17.6 and dose has been decreased. Patient will need close outpatient follow-up monitoring this. PT/OT evaluated the patient recommending rehab and patient is agreeable. Social work consulted and following as patient would like to go to [facility]. [facility] has denied the patient although [facility] has excepted pending insurance authorization. Home medications reviewed and resumed Discussed complete tobacco cessation and medication compliance Patient will need outpatient follow-up with his neurologist to establish next week as scheduled with Dr. Burr as well as [facility] follow-up Did not receive insurance authorization today on Sunday and discharge will not have to wait until Sunday. The impression and plan of care has been dictated by Mary Beebe, Nurse Practitioner as directed. Dr. Lu MD I have performed a history and physical examination and medical decision making of this patient, discussed the same with the dictator, and agree with the dictators assessment and plan as written, documented as a scribe. Based on total visit time, I have performed more than 50% of this visit. Objective - Vital Signs Vital signs: Vital Signs Temp 97.4 F L 06/24/23 07:00 Pulse 60 06/24/23 07:00 Resp 18 06/24/23 07:00 BP 96/66 06/24/23 07:00 Pulse Ox 95 06/24/23 07:00 FiO2 Intake & Output 06/23/23 06/24/23 06/24/23 18:59 06:59 18:59 Intake Total 354 Output Total 400 Balance -46 Intake: Oral 354 Output: Urine 400 Other: Voiding Method Toilet # Voids 1 0 1 # Bowel Movements 1 1 - Labs CBC & Chem 7: 06/20/23 19:20 06/22/23 06:27 Assessment and Plan Time with Patient: Less than 30
[2023-06-25 08:02] VITALS: RESP 16
--- NOTE | 2023-06-25 09:05 | P.PN ---
Subjective Progress Note Date: 06/24/23 Patient was seen for a follow-up. Patient is laying comfortably in the bed. He states he is now doing good, as he is aggravated in the room. He states that he got up, had a head guidry and then was able to walk to the bathroom with walker. His legs feel like "wet noodle". He just wants to go to rehab. No seizures. No rash. Objective - Vital Signs Vital signs: Vital Signs Temp 98.1 F 06/25/23 07:00 Pulse 55 L 06/25/23 07:00 Resp 16 06/25/23 07:00 BP 103/65 06/25/23 07:00 Pulse Ox 97 06/25/23 08:47 FiO2 Intake & Output 06/24/23 06/25/23 06/25/23 18:59 06:59 18:59 Other: # Voids 1 1 - Exam Patient has ataxia for [id number] testing bilaterally, right more than left, but much better. In the lower limbs, there is ataxia only the right leg, and also that looks better. Rest of exam is unchanged. - Labs CBC & Chem 7: 06/20/23 19:20 06/22/23 06:27 Assessment and Plan Assessment: * Lamictal toxicity. Patient has presented with gait imbalance, dizziness, f alls, diplopia, ataxia, likely due to Lamictal toxicity. He is on Lamictal 275 mg twice a day, which is a fairly high dose. On previous admissions, his dose was decreased to 225 mg twice daily because of Lamictal toxicity, but now was back on high-dose for unclear cause. * Breakthrough seizure * Post stroke epilepsy, medically intractable * History of left parietal hemorrhagic stroke in 2015 with mild residual right hemiparesis. * History of tobacco use * Hypertension * Depression Plan: * Lamictal level 17.6 (2-15). Patient's Lamictal dose decreased from 275 mg twice a day down to 225 mg twice a day. * B12 778, folate 17.6, B6 levels. * Patient initially did not want changes in his seizure medication. He just wanted to go to rehabilitation. Informed him that his falls and all symptoms are likely related to Lamictal toxicity. He did agree to decrease Lamictal to 225 mg twice daily. * Continue Briviact 100 mg twice daily. * Patient is a fall risk. * Continue aspirin, Plavix 75 mg and Lipitor 80 mg. * Recommend complete tobacco cessation. * Patient need to follow-up with for further management of his medically intractable epilepsy. He may be a candidate for epilepsy surgery versus VNS. * Patient's ataxia has improved. We will repeat Lamictal level in the morning. * Neurologically clear for transfer to rehab, pending insurance authorization. Dr. Jose Fernando starting neurology service in the morning for any concerns.
--- NOTE | 2023-06-25 19:56 | P.PN ---
Subjective Progress Note Date: 06/25/23 This is a 57-year-old male who presented to the emergency department via EMS with increased weakness with [place] right-sided deficits. Patient follows with Dr. Lockhart in the outpatient setting with a past medical history of CVA/TIA, GERD, hyperlipidemia, hypertension, seizure disorder poststroke, migraines, anxiety, bipolar depression, panic disorder. Patient reports to continued ongoing nicotine dependence daily and denies any other drug use or alcohol use. Patient takes a number of psychiatric medications as well as attempted seizure medications although reports nothing has been helping. Patient reports since his for stroke 5 or 6 years ago he has had seizures and difficulty with right-s ided weakness. Patient reports over the last few days and 2 weeks he has been progressively becoming more weak and reports to having a seizure although unsure of when but reported significant right-sided weakness that has developed into allowing him not to walk and is also having difficulty using a walker. Patient was admitted with neurological evaluation along with PT/OT therapy and social work for possible ECF. Patient reports he had gone to [facility] previously for continued rehab which helped. Patient also reports he was seeing Dr. Patino previously neurology although he does not accept his insurance and was discharged from his practice. Patient does have an upcoming appointment with Dr Julia Burr next week to establish. Patient also was mentioning following up in the [facility] system for possible surgical intervention regarding his continued seizures. CT brain showed overall stable intracranial findings with no evidence of acute intracranial abnormality. Labs reviewed showing normal CBC, sodium 140, potassium 4.0, BUN 20, creatinine 1.63, LFTs within normal limits, magnesium 2.1, troponin negative, cholesterol panel ordered and pending 06/22/2023 Patient is seen in follow-up today reports to feeling continued weakness on the right side. Patient followed by neurology with concerns of toxicity from Lamictal as patient was taking a high dose. Lamictal level pending. Patient seen and evaluated by physical therapy recommending rehab with social work following. Patient currently denies any chest pain, shortness of breath, or palpitations. Patient tolerating diet with no reported nausea or vomiting. Patient has been encouraged to increase activity as tolerated. Patient will require insurance authorization to ECF. 06/23/2023 Patient is evaluated in follow-up today. He continues to report weakness in the right side. Lamictal dose was decreased by neurology down to 225 mg twice a day and patient is agreements to this. He is still pending authorization for d ischarge to subacute rehab. 06/24/2023 Patient is evaluated in follow up. No acute complaints overnight. He is tolerating diet. He has mostly been sleeping. Continues on decreased lamictal dose with no evidence for any further breakthrough seizures. Patient is pending insurance auth for discharge to [facility]. 06/25/2023 Patient seen in follow-up today with no acute overnight issues. Recommend upd ated PT/OT therapy evaluation. Patient has been accepted at [facility] although pending insurance authorization. Social work following with no updates on authorization. Patient is afebrile denies chest pain or shortness of breath. Will follow-up on repeat Patient will need outpatient follow-up with neurology. Review of systems: Constitutional: No reports of fatigue, fever, or chills Cardiovascular: No reports of chest pain or palpitations Respiratory: No reports of shortness of breath or cough GI: No reports of nausea, vomiting, or diarrhea : No reports of dysuria or retention Neurovascular:reports of generalized weakness and continued right side weakness especially the right lower extremity The rest of the 14-point review of systems is negative. PHYSICAL EXAMINATION: GENERAL: The patient is alert and oriented x3, not in any acute distress. Well developed, well nourished. Elderly appearing, unkempt HEENT: Pupils are round and equally reacting to light. EOMI. No scleral icterus. No conjunctival pallor. Normocephalic, atraumatic. No pharyngeal erythema. No thyromegaly. CARDIOVASCULAR: S1 and S2 present. No murmurs, rubs, or gallops. PULMONARY: Chest is clear to auscultation, no wheezing or crackles. ABDOMEN: Soft, nontender, nondistended, normoactive bowel sounds. No palpable organomegaly. MUSCULOSKELETAL: No joint swelling or deformity. EXTREMITIES: No cyanosis, clubbing, or pedal edema. NEUROLOGICAL: Gross neurological examination did not reveal any focal deficits. Diffusely weak SKIN: No rashes. Assessment: Right-sided weakness with concerns of Lamictal toxicity, Lamictal level is 17.6 history of CVA/TIA with residual right-sided deficits since History of seizures status post CVA, following with neurology outpatient discussing possible surgical intervention for uncontrolled seizures, continue outpatient follow-up at [facility] GERD Hyperlipidemia Hypertension History of left hemorrhagic stroke with right-sided weakness History of anxiety, bipolar, depression, panic disorder Continued ongoing nicotine dependence Gait dysfunction with generalized weakness GI prophylaxis DVT prophylaxis Full code Plan: Patient was admitted with neurology following. CT of the brain shows no acute intracranial process noted. Concerns for possible toxicity from Lamictal as patient is taking an extremely high dose. Lamictal level was 17.6 and dose has been decreased. Patient will need close outpatient follow-up monitoring this. PT/OT evaluated the patient recommending rehab and patient is agreeable. Social work consulted and following working on insurance patient has been accepted at [facility] pending auth. Home medications reviewed and resumed Discussed complete tobacco cessation and medication compliance Patient will need outpatient follow-up with his neurologist to establish next week as scheduled with Dr. Burr as well as [facility] follow-up Patient is medically stable for discharge pending insurance authorization to ECF Possible discharge in 24 hours The impression and plan of care has been dictated by Freda SANCHEZ , Nurse Practitioner as directed. Dr. Ramakrishna MD I have performed a history and physical examination and medical decision making of this patient, discussed the same with the dictator, and agree with the dic tators assessment and plan as written, documented as a scribe. Based on total visit time, I have performed more than 50% of this visit. Objective - Vital Signs Vital signs: Vital Signs Temp 97.4 F L 06/25/23 14:45 Pulse 69 06/25/23 14:45 Resp 16 06/25/23 14:45 BP 122/81 06/25/23 14:45 Pulse Ox 100 06/25/23 14:45 FiO2 Intake & Output 06/25/23 06/25/23 06/26/23 06:59 18:59 06:59 Intake Total 417 Balance 417 Intake: Oral 417 Other: Voiding Method Toilet # Voids 1 1 - Labs CBC & Chem 7: 06/20/23 19:20 06/22/23 06:27
--- NOTE | 2023-06-26 13:31 | P.DS ---
Providers Date of admission: 06/20/23 20:19 Expected date of discharge: 06/26/23 Attending physician: Ramon Delcid Consults: 06/20/23 20:18 Consult Physician Routine Consulting Provider: Soniya Lancaster Consult Reason/Comments: Right-sided weakness Do you want consulting provider notified?: Yes Primary care physician: Jaziel Lockhart Hospital Course: Final diagnosis Right-sided weakness with concerns of Lamictal toxicity, Lamictal level is 17.6 history of CVA/TIA with residual right-sided deficits since History of seizures status post CVA, following with neurology outpatient discussing possible surgical intervention for uncontrolled seizures, continue outpatient follow-up at [facility] G[facility] Hyperlipidemia Hypertension History of left hemorrhagic stroke with right-sided weakness History of anxiety, bipolar, depression, panic disorder Continued ongoing nicotine dependence Gait dysfunction with generalized weakness GI prophylaxis DVT prophylaxis Full code Discharge disposition Patient is being discharged in a stable condition with guarded prognosis to [facility]. Patient will follow-up with Dr. Jaziel Lockhart in the outpatient setting upon discharge. Patient is to continue with current dosing of medications and close outpatient follow-up with neurology as well as [facility] in the outpatient setting regarding seizures as scheduled. Total time taken is greater than 35 minutes. Hospital course This is a 57-year-old male who was recently admitted with increased right-sided weakness with difficulty in ambulation and reporting inability to ambulate. Patient reports he had a CVA a few years ago and since then has been having ongoing seizures that have been uncontrolled. Patient is following with neurologist outpatient and is currently maintained on Lamictal. Lamictal levels were elevated on admission and has been titrated with neurology following recommending outpatient follow-up and monitoring in the outpatient setting. Patient with generalized weakness evaluated by physical therapy recommending rehab and patient is agreeable. Patient has been accepted at [facility] and insurance authorization has been obtained today. Patient has been instructed to keep his appointment with [facility] and follow-up with his neurologist appointment to reestablish with Dr. Burr early next week. Patient has been cleared by consultations. Please refer to other consultation notes for further HPI. Currently no reports of chest pain, shortness of breath, or palpitations. Patient is afebrile. No reports of nausea or vomiting and pa gingerjanett is tolerating diet. Patient will be going to [facility] on the [place] today. Physical exam: Gen: This is a 57-year-old male who is awake, alert and oriented x 3, well- developed, well-nourished, elderly appearing HEENT: Head is atraumatic, normocephalic. Pupils equal, round. Sclerae is anicteric. NECK: Supple. No JVD. No lymphadenopathy. No thyromegaly. LUNGS: Clear to auscultation. No wheezes or rhonchi. No intercostal retractions. HEART: Regular rate and rhythm. No murmur. ABDOMEN: Soft. Bowel sounds are present. No masses. No tenderness. EXTREMITIES: No pedal edema. No calf tenderness. Generalized weakness with increased weakness noted of the right lower extremity with gait NEUROLOGICAL: Patient is awake, alert and oriented x3. Cranial nerves 2 through 12 are grossly intact. Diffusely weak Please refer to medication reconciliation sheet for a list of medications. The impression and plan of care has been dictated by Freda Ellis, Nurse Practitioner as directed. Dr. Ramakrishna MD I have performed a history and examination and MDM of this patient, discussed the same with the dictator, and agree with the dictator's assessment and plan as written ,documented as a scribe. Based on total visit time, I have performed more than 50% of the visit. Patient Condition at Discharge: Stable Plan - Discharge Summary New Discharge Prescriptions: New Heparin Sodium,Porcine (1 ml) [Heparin Sodium] 5,000 unit SQ Q12HR each Acetaminophen Tab [Tylenol] 650 mg PO Q6HR PRN tab PRN Reason: Fever And/ Or Pain lamoTRIgine [LaMICtal] 25 mg PO BID tab Continue Famotidine [Pepcid] 20 mg PO BID #60 tab Atorvastatin [Lipitor] 80 mg PO DAILY Tamsulosin [Flomax] 0.4 mg PO DAILY QUEtiapine FUMARATE [SEROquel] 300 mg PO HS lamoTRIgine [LaMICtal] 200 mg PO BID Brivaracetam [Briviact] 100 mg PO BID carvediloL [Coreg] 25 mg PO BID #60 tablet Aspirin EC [Ecotrin Low Dose] 81 mg PO HS amLODIPine [Norvasc] 5 mg PO DAILY Magnesium Oxide [Mag-Ox] 400 mg PO DAILY Baclofen [Lyvispah] 20 mg PO TID Nitroglycerin Sl Tabs [Nitrostat] 0.4 mg SUBLINGUAL Q5M PRN #20 tab PRN Reason: Chest Pain Clopidogrel [Plavix] 75 mg PO DAILY Cholecalciferol [Vitamin D3 (25 Mcg = 1000 Iu)] 50 mcg PO DAILY Discontinued lamoTRIgine [LaMICtal] 75 mg PO BID Discharge Medication List Famotidine [Pepcid] 20 mg PO BID #60 tab 11/21/18 [Rx] carvediloL [Coreg] 25 mg PO BID #60 tablet 07/13/21 [Rx] Aspirin EC [Ecotrin Low Dose] 81 mg PO HS 09/04/21 [History] Atorvastatin [Lipitor] 80 mg PO DAILY 11/07/21 [History] Tamsulosin [Flomax] 0.4 mg PO DAILY 02/20/22 [History] amLODIPine [Norvasc] 5 mg PO DAILY 02/20/22 [History] Baclofen [Lyvispah] 20 mg PO TID 09/18/22 [History] Magnesium Oxide [Mag-Ox] 400 mg PO DAILY 09/18/22 [History] QUEtiapine FUMARATE [SEROquel] 300 mg PO HS 09/18/22 [History] lamoTRIgine [LaMICtal] 200 mg PO BID 09/18/22 [History] Nitroglycerin Sl Tabs [Nitrostat] 0.4 mg SUBLINGUAL Q5M PRN #20 tab 09/20/22 [Rx] Brivaracetam [Briviact] 100 mg PO BID 06/20/23 [History] Cholecalciferol [Vitamin D3 (25 Mcg = 1000 Iu)] 50 mcg PO DAILY 06/20/23 [History] Clopidogrel [Plavix] 75 mg PO DAILY 06/20/23 [History] Acetaminophen Tab [Tylenol] 650 mg PO Q6HR PRN tab 06/23/23 [Rx] Heparin Sodium,Porcine (1 ml) [Heparin Sodium] 5,000 unit SQ Q12HR each 06/23/23 [Rx] lamoTRIgine [LaMICtal] 25 mg PO BID tab 06/23/23 [Rx] Follow up Appointment(s)/Referral(s): Jaziel Lockhart MD [Primary Care Provider] - 1-2 days Taz Burr MD [Medical Doctor] - 1 Week Activity/Diet/Wound Care/Special Instructions: Activity as tolerated Patient is going to [facility] on the [place] Patient to follow-up with his neurologist Dr. Burr as scheduled Follow-up with [facility] outpatient regarding seizures Continue on current dose of Lamictal and follow-up outpatient regarding repeat labs and monitoring as doses were adjusted this admission PT HAS HOME MED THAT IS A CONTROLLED SUBSTANCE IN INPATIENT PHARMACY NEEDS TO BE GIVEN AT DISCHARGE. Discharge Disposition: TRANSFER TO SNF/ECF
[2023-06-26 14:32] VITALS: BP 132/74; PULSE 59; TEMP 97.3
== END 2023-06-26 15:37 | DRG 812 ==
LOC: EC 18:22 → 6NMEDSUR 20:19 → OBSVTOIN 20:19 → 6NMEDSUR 22:18
PROVIDERS: ADMIT Hospitalist; ATTEND Hospitalist
DX: T42.6X1A Poisoning by other antiepileptic and sedative-hypnotic drugs, accidental (unintentional), initial encounter (principal); I69.151 Hemiplegia and hemiparesis following nontraumatic intracerebral hemorrhage affecting right dominant side; I69.198 Other sequelae of nontraumatic intracerebral hemorrhage; G40.909 Epilepsy, unspecified, not intractable, without status epilepticus; K21.9 Gastro-esophageal reflux disease without esophagitis; E78.5 Hyperlipidemia, unspecified; F31.9 Bipolar disorder, unspecified; Z28.310 Unvaccinated for COVID-19; G43.909 Migraine, unspecified, not intractable, without status migrainosus; R26.81 Unsteadiness on feet; F10.11 Alcohol abuse, in remission; F19.10 Other psychoactive substance abuse, uncomplicated; Z86.010 Personal history of colon polyps; F17.200 Nicotine dependence, unspecified, uncomplicated; F41.0 Panic disorder [episodic paroxysmal anxiety]; Z79.02 Long term (current) use of antithrombotics/antiplatelets; Z79.82 Long term (current) use of aspirin; Z79.899 Other long term (current) drug therapy; Z87.01 Personal history of pneumonia (recurrent); Z82.49 Family history of ischemic heart disease and other diseases of the circulatory system
CPT/HCPCS: 36415; 70450; 80048; 80053; 80061; 80175; 82550; 82607; 82746; 83735; 84207; 84484; 85025; 85610; 85730; 93005; 94760; 99285

== ENCOUNTER 2024-01-30 15:55 | Emergency (ER) | payer OTHER ==
[2024-01-30 16:07] VITALS: PULSE 69; RESP 20; TEMP 97.4
[2024-01-30 16:12] LABS: Glucose,Whole Blood 105 mg/dL (70-110)
[2024-01-30 16:49] LABS: Basophils # (A) 0.1 k/uL (0-0.2); Basophils % (A) 1 %; Eosinophils # (A) 0.4 k/uL (0-0.7); Eosinophils % (A) 5 %; HCT 47.4 % (39.0-53.0); Lymphocytes # (A) 1.4 k/uL (1.0-4.8); Lymphocytes % (A) 22 %; MCH 32.9 pg (25.0-35.0); MCHC 33.8 g/dL (31.0-37.0); MCV 97.3 fL (80.0-100.0); Mean Platelet Volume 7.9; Monocytes # (A) 0.4 k/uL (0-1.0); Monocytes % (A) 6 %; Neutrophils # (A) 4.1 k/uL (1.3-7.7); Neutrophils % (A) 63 %; Platelet Count 270 k/uL (150-450); RBC 4.87 m/uL (4.30-5.90); RDW 11.9 % (11.5-15.5); WBC 6.5 k/uL (3.8-10.6)
[2024-01-30 17:00] LABS: ALT 19 U/L (4-49); African American GFR (CKD) 84 (>60 ml/min/1.73 sqM); Anion Gap 8 mmol/L; Blood Urea Nitrogen 16 mg/dL (9-20); Calcium 9.7 mg/dL (8.4-10.2); Carbon Dioxide 26 mmol/L (22-30); Chloride 104 mmol/L (98-107); Glucose 97 mg/dL (74-99); Magnesium 2.2 mg/dL (1.6-2.3); Non-African American GFR(CKD) 73 (>60 ml/min/1.73 sqM); Sodium 138 mmol/L (137-145)
[2024-01-30 17:06] LABS: AST 38 U/L (17-59); Albumin 4.8 g/dL (3.5-5.0); Alkaline Phosphatase 75 U/L (38-126); Potassium 5.2 mmol/L (3.5-5.1); Total Protein 7.7 g/dL (6.3-8.2)
[2024-01-30 17:37] VITALS: BP 160/104
--- NOTE | 2024-01-30 17:37 | ED ---
Seizure HPI - General Chief Complaint: Seizure Stated Complaint: seizure Time Seen by Provider: 01/30/24 16:00 Source: patient, EMS Mode of arrival: EMS Limitations: no limitations - History of Present Illness Initial Comments: 58-year-old male with past medical history of seizure disorder who presents emergency department after a seizure. He reports that he felt it starting. It starts as a twitch in his arm and goes up to his head. Seizure was witnessed by . She was driving and therefore had to last puller. EMS was called. Upon EMS arrival the patient was postictal. Presents alert and oriented upon my evaluation. Admits he has had seizures ever since he had his stroke. He does take antiepileptic medications and denies any missed doses. No injuries from the seizure. Denies headache, visual changes, chest pain, shortness of breath. No abdominal pain, fevers. No other alleviating, precipitating modifying factors - Related Data Home Medications Medication Instructions Recorded Confirmed Aspirin EC [Ecotrin Low Dose] 81 mg PO HS 09/04/21 06/20/23 Atorvastatin [Lipitor] 80 mg PO DAILY 11/07/21 06/20/23 Tamsulosin [Flomax] 0.4 mg PO DAILY 02/20/22 06/20/23 amLODIPine [Norvasc] 5 mg PO DAILY 02/20/22 06/20/23 Baclofen [Lyvispah] 20 mg PO TID 09/18/22 06/20/23 Magnesium Oxide [Mag-Ox] 400 mg PO DAILY 09/18/22 06/20/23 QUEtiapine FUMARATE [SEROquel] 300 mg PO HS 09/18/22 06/21/23 lamoTRIgine [LaMICtal] 200 mg PO BID 09/18/22 06/20/23 Cholecalciferol [Vitamin D3 (25 50 mcg PO DAILY 06/20/23 06/20/23 Mcg = 1000 Iu)] Clopidogrel [Plavix] 75 mg PO DAILY 06/20/23 06/20/23 Previous Rx's Medication Instructions Recorded Famotidine [Pepcid] 20 mg PO BID #60 tab 11/21/18 carvediloL [Coreg] 25 mg PO BID #60 tablet 07/13/21 Nitroglycerin Sl Tabs [Nitrostat] 0.4 mg SUBLINGUAL Q5M PRN #20 tab 09/20/22 Acetaminophen Tab [Tylenol] 650 mg PO Q6HR PRN tab 06/23/23 Heparin Sodium,Porcine (1 ml) 5,000 unit SQ Q12HR each 06/23/23 [Heparin Sodium] lamoTRIgine [LaMICtal] 25 mg PO BID tab 06/23/23 Brivaracetam [Briviact] 100 mg PO BID #6 tab 06/26/23 Allergies Allergy/AdvReac Type Severity Reaction Status Date / Time No Known Allergies Allergy Verified 01/30/24 16:07 Review of Systems ROS Statement: Those systems with pertinent positive or pertinent negative responses have been documented in the HPI. ROS Other: All systems not noted in ROS Statement are negative. Past Medical History Past Medical History: CVA/TIA, GERD/Reflux, Hyperlipidemia, Hypertension, Pneumonia, Seizure Disorder Additional Past Medical History / Comment(s): L hemorrhagic stroke-R sided weakness and has had occasions of increased irritability/agitation/isolation, multiple mental health unit admissions, uncontrolled seizures, L pneumothorax with chest tube, migraines History of Any Multi-Drug Resistant Organisms: None Reported Past Surgical History: No Surgical Hx Reported Additional Past Surgical History / Comment(s): COLONOSCOPY w/ POLYPS REMOVED- NEG, bilateral cataract removal, R testicular surgery as a child Past Anesthesia/Blood Transfusion Reactions: No Reported Reaction Additional Past Anesthesia/Blood Transfusion Reaction / Comment(s): Pt has never recieved blood. Past Psychological History: Anxiety, Bipolar, Depression, Panic Disorder Smoking Status: Current every day smoker Past Alcohol Use History: None Reported Past Drug Use History: None Reported - Past Family History Father Family Medical History: Cancer, Hyperlipidemia, Hypertension, Prostate Disorder Additional Family Medical History / Comment(s): PROSTATE CA Mother Family Medical History: Osteoarthritis (OA) Additional Family Medical History / Comment(s): MOM IS 71 General Exam Limitations: no limitations General appearance: alert, in no apparent distress Head exam: Present: atraumatic, normocephalic, normal inspection Eye exam: Present: normal appearance, PERRL, EOMI. Absent: scleral icterus, conjunctival injection, periorbital swelling ENT exam: Present: normal exam, mucous membranes moist Neck exam: Present: normal inspection. Absent: tenderness, meningismus, lymphadenopathy Respiratory exam: Present: normal lung sounds bilaterally. Absent: respiratory distress, wheezes, rales, rhonchi, stridor Cardiovascular Exam: Present: regular rate, normal rhythm, normal heart sounds. Absent: systolic murmur, diastolic murmur, rubs, gallop, clicks GI/Abdominal exam: Present: soft, normal bowel sounds. Absent: distended, tenderness, guarding, rebound, rigid Extremities exam: Present: normal inspection, full ROM, normal capillary refill. Absent: tenderness, pedal edema, joint swelling, calf tenderness Back exam: Present: normal inspection Neurological exam: Present: alert, oriented X3, CN II-XII intact Psychiatric exam: Present: normal affect, normal mood Skin exam: Present: warm, dry, intact, normal color. Absent: rash Course Vital Signs 01/30/24 01/30/24 15:57 17:25 Temperature 97.4 F L Pulse Rate 69 69 Respiratory 20 20 Rate Blood Pressure 147/103 160/104 O2 Sat by Pulse 93 L 97 Oximetry Medical Decision Making - Medical Decision Making Was pt. sent in by a medical professional or institution (, PA, ROLLING MILL OPERATOR HELPER, urgent care, hospital, or senior living...) When possible be specific @ -No Did you speak to anyone other than the patient for history (EMS, parent, family, police, friend...)? What history was obtained from this source @ -Spoke with EMS and for history Did you review nursing and triage notes (agree or disagree)? Why? @ -I reviewed and agree with nursing and triage notes Were old charts reviewed (outside hosp., previous admission, EMS record, old EKG, old radiological studies, urgent care reports/EKG's, senior living records)? Report findings @ -No old charts were reviewed Differential Diagnosis (chest pain, altered mental status, abdominal pain women, abdominal pain men, vaginal bleeding, weakness, fever, dyspnea, syncope, headache, dizziness, GI bleed, back pain, seizure, CVA, palpatations, mental health, musculoskeletal)? @ -Differential Seizure: Recurrent seizure disorder, febrile seizure, alcohol withdrawal, stimulants, meningitis, encephalitis, intercranial hemorrhage, intracranial tumor, stroke, eclampsia, thyrotoxicosis, hypocalcemia, hyponatremia, hypernatremia, hypomagnesemia, psychogenic, this is not meant to be an all-inclusive list. EKG interpreted by me (3pts min.). @ -Yes and demonstrates sinus rhythm with a rate of 67. NC interval 220. QRS 125. QTc of 460. No acute ST segment elevations or depressions X-rays interpreted by me (1pt min.). @ -None done CT interpreted by me (1pt min.). @ -None done U/S interpreted by me (1pt. min.). @ -None done What testing was considered but not performed or refused? (CT, X-rays, U/S, labs)? Why? @ -None What meds were considered but not given or refused? Why? @ -None Did you discuss the management of the patient with other professionals (professionals i.e. DrJulia, PA, ROLLING MILL OPERATOR HELPER, lab, RT, psych nurse, social media coordinator, director case management, teacher, veterans service officer, foster care case manager)? Give summary @ -No Was smoking cessation discussed for >3mins.? @ -No Was critical care preformed (if so, how long)? @ -No Were there social determinants of health that impacted care today? How? (Homelessness, low income, unemployed, alcoholism, drug addiction, transportation, low edu. Level, literacy, decrease access to med. care, assisted, rehab)? @ -No Was there de-escalation of care discussed even if they declined (Discuss DNR or withdrawal of care, Hospice)? DNR status @ -No What co-morbidities impacted this encounter? (DM, HTN, Smoking, COPD, CAD, Cancer, CVA, ARF, Chemo, Hep., AIDS, mental health diagnosis, sleep apnea, morbid obesity)? @ -Seizure disorder Was patient admitted / discharged? Hospital course, mention meds given and route, prescriptions, significant lab abnormalities, going to OR and other pertinent info. @ -Upon arrival patient seen and evaluated in bed 23. Thorough history and physical exam was performed. Patient reports to frequent breakthrough seizures. He does not want to be evaluated for his seizures. He is agreeable to a basic set of blood work. Results are discussed with the patient. He is hypertensive. I did go through his home medications and it appears that the patient is missing one of his home medications and his blister packs. He must call the pharmacy to ensure that he is receiving the correct medications. He is to also follow-up with his neurologist. States he is scheduled for a brain stimulator. Patient will be discharged home. Instructed to follow-up with his primary care doctor in 2 to 5 days. Return for any new or worsening symptoms Undiagnosed new problem with uncertain prognosis? @ -No Drug Therapy requiring intensive monitoring for toxicity (Heparin, Nitro, Insulin, Cardizem)? @ -No Were any procedures done? @ -No Diagnosis/symptom? @ -Acute breakthrough seizure, history of seizure disorder Acute, or Chronic, or Acute on Chronic? @ -Acute on chronic Uncomplicated (without systemic symptoms) or Complicated (systemic symptoms)? @ -Complicated Side effects of treatment? @ -No Exacerbation, Progression, or Severe Exacerbation? @ -No Poses a threat to life or bodily function? How? (Chest pain, USA, ID, pneumonia, PE, COPD, DKA, ARF, appy, cholecystitis, CVA, Diverticulitis, Homicidal, Suicidal, threat to staff... and all critical care pts) @ -No - Lab Data Result diagrams: 01/30/24 16:43 01/30/24 16:43 Lab Results 01/30/24 01/30/24 01/30/24 Range/Units 16:11 16:43 16:43 WBC 6.5 (3.8-10.6) k/uL RBC 4.87 (4.30-5.90) m/uL Hgb 16.0 (13.0-17.5) gm/dL Hct 47.4 (39.0-53.0) % MCV 97.3 (80.0-100.0) fL MCH 32.9 (25.0-35.0) pg MCHC 33.8 (31.0-37.0) g/dL RDW 11.9 (11.5-15.5) % Plt Count 270 (150-450) k/uL MPV 7.9 Neutrophils % 63 % Lymphocytes % 22 % Monocytes % 6 % Eosinophils % 5 % Basophils % 1 % Neutrophils # 4.1 (1.3-7.7) k/uL Lymphocytes # 1.4 (1.0-4.8) k/uL Monocytes # 0.4 (0-1.0) k/uL Eosinophils # 0.4 (0-0.7) k/uL Basophils # 0.1 (0-0.2) k/uL Sodium 138 (137-145) mmol/L Potassium 5.2 H (3.5-5.1) mmol/L Chloride 104 (98-107) mmol/L Carbon Dioxide 26 (22-30) mmol/L Anion Gap 8 mmol/L BUN 16 (9-20) mg/dL Creatinine 1.10 (0.66-1.25) mg/dL Est GFR (CKD-EPI)AfAm 84 (>60 ml/min/1.73 sqM) Est GFR (CKD-EPI)NonAf 73 (>60 ml/min/1.73 sqM) Glucose 97 (74-99) mg/dL POC Glucose (mg/dL) 105 (70-110) mg/dL POC Glu Gravity Prospecting Supervisor ID Galvez Farhat Plasma Lactic Acid Shahbaz (0.7-2.0) mmol/L Calcium 9.7 (8.4-10.2) mg/dL Magnesium 2.2 (1.6-2.3) mg/dL Total Bilirubin 1.0 (0.2-1.3) mg/dL AST 38 (17-59) U/L ALT 19 (4-49) U/L Alkaline Phosphatase 75 (38-126) U/L Total Protein 7.7 (6.3-8.2) g/dL Albumin 4.8 (3.5-5.0) g/dL 01/30/24 Range/Units 16:43 WBC (3.8-10.6) k/uL RBC (4.30-5.90) m/uL Hgb (13.0-17.5) gm/dL Hct (39.0-53.0) % MCV (80.0-100.0) fL MCH (25.0-35.0) pg MCHC (31.0-37.0) g/dL RDW (11.5-15.5) % Plt Count (150-450) k/uL MPV Neutrophils % % Lymphocytes % % Monocytes % % Eosinophils % % Basophils % % Neutrophils # (1.3-7.7) k/uL Lymphocytes # (1.0-4.8) k/uL Monocytes # (0-1.0) k/uL Eosinophils # (0-0.7) k/uL Basophils # (0-0.2) k/uL Sodium (137-145) mmol/L Potassium (3.5-5.1) mmol/L Chloride (98-107) mmol/L Carbon Dioxide (22-30) mmol/L Anion Gap mmol/L BUN (9-20) mg/dL Creatinine (0.66-1.25) mg/dL Est GFR (CKD-EPI)AfAm (>60 ml/min/1.73 sqM) Est GFR (CKD-EPI)NonAf (>60 ml/min/1.73 sqM) Glucose (74-99) mg/dL POC Glucose (mg/dL) (70-110) mg/dL POC Glu Gravity Prospecting Supervisor ID Plasma Lactic Acid Shahbaz 1.1 (0.7-2.0) mmol/L Calcium (8.4-10.2) mg/dL Magnesium (1.6-2.3) mg/dL Total Bilirubin (0.2-1.3) mg/dL AST (17-59) U/L ALT (4-49) U/L Alkaline Phosphatase (38-126) U/L Total Protein (6.3-8.2) g/dL Albumin (3.5-5.0) g/dL Disposition Clinical Impression: Breakthrough seizure Disposition: HOME SELF-CARE Condition: Stable Instructions (If sedation given, give patient instructions): Recurrent Seizures in Adults (ED) Additional Instructions: Please follow-up with your neurologist at [facility] for further management of your seizures. Take your blister packs to your pharmacy to ensure that your medications have been packed correctly. Return for any new or worsening symptoms Is patient prescribed a controlled substance at d/c from ED?: No Referrals: Jaziel Lockhart MD [Primary Care Provider] - 1-2 days Time of Disposition: 17:37
[2024-01-30] MEDS: amLODIPine 5 MG TAB PO STA (17:41)
[2024-01-30] MEDS: LORazepam 1 MG TAB PO STA (17:41)
== END 2024-01-30 17:51 | disposition home or self-care (01) ==
LOC: EC 15:55
DX: G40.909 Epilepsy, unspecified, not intractable, without status epilepticus (principal); F17.200 Nicotine dependence, unspecified, uncomplicated; Z86.73 Personal history of transient ischemic attack (TIA), and cerebral infarction without residual deficits
CPT/HCPCS: 36415; 80053; 83605; 83735; 85025; 93005; 99285

== ENCOUNTER 2024-04-25 21:01 | Observation (INO) | payer OTHER ==
[2024-04-25 21:26] LABS: Glucose,Whole Blood 102 mg/dL (70-110)
--- NOTE | 2024-04-25 21:28 | ED ---
General Adult HPI - General Chief complaint: Neuro Symptoms/Deficit Stated complaint: Possible seizure Time Seen by Provider: 04/25/24 21:08 Source: EMS Mode of arrival: EMS Limitations: altered mental status - History of Present Illness Initial comments: Patient is 58-year-old man who reportedly has history of seizure disorder and also history of previous hemorrhagic stroke who is brought by EMS to have evaluation after family reportedly found him on the couch at home appearing like he may have had a seizure. The patient not able to give history on arrival. Patient appears to possibly be postictal. He is looking around but is not speaking. Patient moving 3 extremities less so with left upper extremity, but not following commands. -: unknown - Related Data Home Medications Medication Instructions Recorded Confirmed Aspirin EC [Ecotrin Low Dose] 81 mg PO HS 09/04/21 06/20/23 Atorvastatin [Lipitor] 80 mg PO DAILY 11/07/21 06/20/23 Tamsulosin [Flomax] 0.4 mg PO DAILY 02/20/22 06/20/23 amLODIPine [Norvasc] 5 mg PO DAILY 02/20/22 06/20/23 Baclofen [Lyvispah] 20 mg PO TID 09/18/22 06/20/23 Magnesium Oxide [Mag-Ox] 400 mg PO DAILY 09/18/22 06/20/23 QUEtiapine FUMARATE [SEROquel] 300 mg PO HS 09/18/22 06/21/23 lamoTRIgine [LaMICtal] 200 mg PO BID 09/18/22 06/20/23 Cholecalciferol [Vitamin D3 (25 50 mcg PO DAILY 06/20/23 06/20/23 Mcg = 1000 Iu)] Clopidogrel [Plavix] 75 mg PO DAILY 06/20/23 06/20/23 Previous Rx's Medication Instructions Recorded Famotidine [Pepcid] 20 mg PO BID #60 tab 11/21/18 carvediloL [Coreg] 25 mg PO BID #60 tablet 07/13/21 Nitroglycerin Sl Tabs [Nitrostat] 0.4 mg SUBLINGUAL Q5M PRN #20 tab 09/20/22 Acetaminophen Tab [Tylenol] 650 mg PO Q6HR PRN tab 06/23/23 Heparin Sodium,Porcine (1 ml) 5,000 unit SQ Q12HR each 06/23/23 [Heparin Sodium] lamoTRIgine [LaMICtal] 25 mg PO BID tab 06/23/23 Brivaracetam [Briviact] 100 mg PO BID #6 tab 06/26/23 Allergies Allergy/AdvReac Type Severity Reaction Status Date / Time No Known Allergies Allergy Verified 04/25/24 21:09 Review of Systems ROS Statement: Those systems with pertinent positive or pertinent negative responses have been documented in the HPI. ROS Other: All systems not noted in ROS Statement are negative. Limitations: ROS unobtainable due to patients medical condition Past Medical History Past Medical History: CVA/TIA, GERD/Reflux, Hyperlipidemia, Hypertension, Pneumonia, Seizure Disorder Additional Past Medical History / Comment(s): L hemorrhagic stroke-R sided weakness and has had occasions of increased irritability/agitation/isolation, multiple mental health unit admissions, uncontrolled seizures, L pneumothorax with chest tube, migraines History of Any Multi-Drug Resistant Organisms: None Reported Past Surgical History: No Surgical Hx Reported Additional Past Surgical History / Comment(s): COLONOSCOPY w/ POLYPS REMOVED- NEG, bilateral cataract removal, R testicular surgery as a child Past Anesthesia/Blood Transfusion Reactions: No Reported Reaction Additional Past Anesthesia/Blood Transfusion Reaction / Comment(s): Pt has never recieved blood. Past Psychological History: Anxiety, Bipolar, Depression, Panic Disorder Smoking Status: Current every day smoker Past Alcohol Use History: None Reported Past Drug Use History: None Reported - Past Family History Father Family Medical History: Cancer, Hyperlipidemia, Hypertension, Prostate Disorder Additional Family Medical History / Comment(s): PROSTATE CA Mother Family Medical History: Osteoarthritis (OA) Additional Family Medical History / Comment(s): MOM IS 71 General Exam Limitations: no limitations General appearance: alert Head exam: Present: atraumatic, normocephalic Eye exam: Present: normal appearance, PERRL. Absent: scleral icterus, conjunctival injection Neck exam: Present: normal inspection, full ROM. Absent: tenderness, meningismu s Respiratory exam: Present: normal lung sounds bilaterally. Absent: respiratory distress, wheezes, rales, rhonchi, stridor, accessory muscle use Cardiovascular Exam: Present: regular rate, normal rhythm, normal heart sounds. Absent: systolic murmur, diastolic murmur, rubs, gallop GI/Abdominal exam: Present: soft. Absent: distended, tenderness, guarding, rebound, rigid, mass Extremities exam: Present: normal inspection, normal capillary refill. Absent: pedal edema, calf tenderness Back exam: Present: normal inspection Neurological exam: Present: alert, CN II-XII intact, other (On arrival, the patient is alert and looking around but not responding verbally. He does move right upper and bilateral lower extremities but less so with the left upper extremity. Patient not following commands or able to cooperate with neurologic exam.) Skin exam: Present: warm, dry, intact, normal color. Absent: rash Course Vital Signs 04/25/24 04/25/24 04/25/24 21:04 21:36 22:50 Temperature 98.8 F Pulse Rate 55 L 49 L 68 Respiratory 16 16 22 Rate Blood Pressure 154/107 160/81 112/92 O2 Sat by Pulse 98 98 97 Oximetry 04/26/24 04:14 Temperature 98.4 F Pulse Rate 63 Respiratory 19 Rate Blood Pressure 170/90 O2 Sat by Pulse 96 Oximetry EKG Findings - EKG Results: EKG: interpreted by SHANON, sinus rhythm EKG shows: bradycardia (Rate 51 bpm) - Blocks, [place], Hypertrophy, ST Abn: AV and intraventricular conduction: 1 AV block, intraventricular conduction delay Medical Decision Making - Medical Decision Making Patient is a 58-year-old man with history of seizures who is brought to have evaluation after being found on the couch, suspected of having had seizure. On the patient's exam no focal neurologic findings other than he does appear to be moving the left arm a little bit less than contralateral. The patient is sent for CT scan which per my interpretation does not reveal any acute intracranial hemorrhage, no mass effect, no bony trauma. The patient's mother subsequently arrived and stated that the patient is due to have what sounds like an AV malformation or aneurysm clipping through [facility] in May. I spoke with the patient's significant other on the phone who stated that she believed he did not have any of his anticonvulsants in the morning or his evening doses either. She confirmed that the patient is continuing to be prescribed Briviact and Lamictal. Given that the patient's postictal state does appear to be prolonged, will admit and have neurology consultation and EEG. The patient is moving all 4 extremities, when aroused he rolls in the bed and he will utter a few words but he is confused and disoriented. Patient not following commands. - Lab Data Result diagrams: 04/25/24 21:19 04/25/24 21:19 Lab Results 04/25/24 04/25/24 04/25/24 Range/Units 21:19 21:19 21:20 WBC 5.2 (3.8-10.6) k/uL RBC 4.49 (4.30-5.90) m/uL Hgb 14.9 (13.0-17.5) gm/dL Hct 43.8 (39.0-53.0) % MCV 97.5 (80.0-100.0) fL MCH 33.3 (25.0-35.0) pg MCHC 34.1 (31.0-37.0) g/dL RDW 11.8 (11.5-15.5) % Plt Count 178 (150-450) k/uL MPV 7.9 Neutrophils % 61 % Lymphocytes % 17 % Monocytes % 14 % Eosinophils % 3 % Basophils % 1 % Neutrophils # 3.2 (1.3-7.7) k/uL Lymphocytes # 0.9 L (1.0-4.8) k/uL Monocytes # 0.7 (0-1.0) k/uL Eosinophils # 0.2 (0-0.7) k/uL Basophils # 0.1 (0-0.2) k/uL Sodium 141 (137-145) mmol/L Potassium 4.0 (3.5-5.1) mmol/L Chloride 104 (98-107) mmol/L Carbon Dioxide 27 (22-30) mmol/L Anion Gap 10 mmol/L BUN 12 (9-20) mg/dL Creatinine 1.11 (0.66-1.25) mg/dL Est GFR (CKD-EPI)AfAm 83 (>60 ml/min/1.73 sqM) Est GFR (CKD-EPI)NonAf 72 (>60 ml/min/1.73 sqM) Glucose 99 (74-99) mg/dL POC Glucose (mg/dL) 102 (70-110) mg/dL POC Glu Track Service Person ID Estefania Espinoza Plasma Lactic Acid Shahbaz (0.7-2.0) mmol/L Calcium 9.3 (8.4-10.2) mg/dL Magnesium 2.3 (1.6-2.3) mg/dL Total Bilirubin 0.5 (0.2-1.3) mg/dL AST 27 (17-59) U/L ALT 33 (4-49) U/L Alkaline Phosphatase 108 (38-126) U/L Total Protein 6.8 (6.3-8.2) g/dL Albumin 4.3 (3.5-5.0) g/dL Urine Color Urine Appearance (Clear) Urine pH (5.0-8.0) Ur Specific [place] (1.001-1.035) Urine Protein (Negative) Urine Glucose (UA) (Negative) Urine Ketones (Negative) Urine Blood (Negative) Urine Nitrite (Negative) Urine Bilirubin (Negative) Urine Urobilinogen (<2.0) mg/dL Ur Leukocyte Esterase (Negative) Urine Opiates Screen (NotDetected) Ur Oxycodone Screen (NotDetected) Urine Methadone Screen (NotDetected) Ur Barbiturates Screen (NotDetected) U Tricyclic Antidepress (NotDetected) Ur Phencyclidine Scrn (NotDetected) Ur Amphetamines Screen (NotDetected) U Methamphetamines Scrn (NotDetected) U Benzodiazepines Scrn (NotDetected) Urine Cocaine Screen (NotDetected) U Marijuana (THC) Screen (NotDetected) Serum Alcohol <10 mg/dL 04/25/24 04/25/24 Range/Units 21:24 22:50 WBC (3.8-10.6) k/uL RBC (4.30-5.90) m/uL Hgb (13.0-17.5) gm/dL Hct (39.0-53.0) % MCV (80.0-100.0) fL MCH (25.0-35.0) pg MCHC (31.0-37.0) g/dL RDW (11.5-15.5) % Plt Count (150-450) k/uL MPV Neutrophils % % Lymphocytes % % Monocytes % % Eosinophils % % Basophils % % Neutrophils # (1.3-7.7) k/uL Lymphocytes # (1.0-4.8) k/uL Monocytes # (0-1.0) k/uL Eosinophils # (0-0.7) k/uL Basophils # (0-0.2) k/uL Sodium (137-145) mmol/L Potassium (3.5-5.1) mmol/L Chloride (98-107) mmol/L Carbon Dioxide (22-30) mmol/L Anion Gap mmol/L BUN (9-20) mg/dL Creatinine (0.66-1.25) mg/dL Est GFR (CKD-EPI)AfAm (>60 ml/min/1.73 sqM) Est GFR (CKD-EPI)NonAf (>60 ml/min/1.73 sqM) Glucose (74-99) mg/dL POC Glucose (mg/dL) (70-110) mg/dL POC Glu Track Service Person ID Plasma Lactic Acid Shahbaz 0.8 (0.7-2.0) mmol/L Calcium (8.4-10.2) mg/dL Magnesium (1.6-2.3) mg/dL Total Bilirubin (0.2-1.3) mg/dL AST (17-59) U/L ALT (4-49) U/L Alkaline Phosphatase (38-126) U/L Total Protein (6.3-8.2) g/dL Albumin (3.5-5.0) g/dL Urine Color Colorless Urine Appearance Clear (Clear) Urine pH 6.0 (5.0-8.0) Ur Specific [place] 1.005 (1.001-1.035) Urine Protein Negative (Negative) Urine Glucose (UA) Negative (Negative) Urine Ketones Negative (Negative) Urine Blood Negative (Negative) Urine Nitrite Negative (Negative) Urine Bilirubin Negative (Negative) Urine Urobilinogen <2.0 (<2.0) mg/dL Ur Leukocyte Esterase Negative (Negative) Urine Opiates Screen Not Detected (NotDetected) Ur Oxycodone Screen Not Detected (NotDetected) Urine Methadone Screen Not Detected (NotDetected) Ur Barbiturates Screen Not Detected (NotDetected) U Tricyclic Antidepress Detected H (NotDetected) Ur Phencyclidine Scrn Not Detected (NotDetected) Ur Amphetamines Screen Not Detected (NotDetected) U Methamphetamines Scrn Not Detected (NotDetected) U Benzodiazepines Scrn Not Detected (NotDetected) Urine Cocaine Screen Not Detected (NotDetected) U Marijuana (THC) Screen Not Detected (NotDetected) Serum Alcohol mg/dL Disposition
[2024-04-25 21:40] LABS: Basophils # (A) 0.1 k/uL (0-0.2); Basophils % (A) 1 %; Eosinophils # (A) 0.2 k/uL (0-0.7); Eosinophils % (A) 3 %; HCT 43.8 % (39.0-53.0); HGB 14.9 gm/dL (13.0-17.5); Lymphocytes # (A) 0.9 k/uL (1.0-4.8); Lymphocytes % (A) 17 %; MCH 33.3 pg (25.0-35.0); MCHC 34.1 g/dL (31.0-37.0); MCV 97.5 fL (80.0-100.0); Mean Platelet Volume 7.9; Monocytes # (A) 0.7 k/uL (0-1.0); Monocytes % (A) 14 %; Neutrophils # (A) 3.2 k/uL (1.3-7.7); Neutrophils % (A) 61 %; Platelet Count 178 k/uL (150-450); RBC 4.49 m/uL (4.30-5.90); RDW 11.8 % (11.5-15.5); WBC 5.2 k/uL (3.8-10.6)
--- NOTE | 2024-04-25 21:49 | XR ---
EXAMINATION TYPE: XR chest 1V portable DATE OF EXAM: 04/25/2024 9:37 PM COMPARISON: Chest radiographs from 09/18/2022 CLINICAL INDICATION: Male, 58 years old with history of altered mental status; [facility] TECHNIQUE: XR chest 1V portable Frontal view of the chest. FINDINGS: Lungs/Pleura: There is no evidence of pleural effusion, focal consolidation, or pneumothorax. Pulmonary vascularity: Unremarkable. Heart/mediastinum: Cardiomediastinal silhouette is unremarkable. Musculoskeletal: No acute osseous pathology. IMPRESSION: No acute cardiopulmonary disease/process. [facility], , 04/25/2024 9:46 PM
[2024-04-25 21:54] LABS: ALT 33 U/L (4-49); AST 27 U/L (17-59); African American GFR (CKD) 83 (>60 ml/min/1.73 sqM); Albumin 4.3 g/dL (3.5-5.0); Alcohol <10 mg/dL; Alkaline Phosphatase 108 U/L (38-126); Anion Gap 10 mmol/L; Blood Urea Nitrogen 12 mg/dL (9-20); Calcium 9.3 mg/dL (8.4-10.2); Carbon Dioxide 27 mmol/L (22-30); Chloride 104 mmol/L (98-107); Glucose 99 mg/dL (74-99); Magnesium 2.3 mg/dL (1.6-2.3); Non-African American GFR(CKD) 72 (>60 ml/min/1.73 sqM); Sodium 141 mmol/L (137-145); Total Bilirubin 0.5 mg/dL (0.2-1.3); Total Protein 6.8 g/dL (6.3-8.2)
[2024-04-25] MEDS: LORazepam 2 MG/ML INJ IV STA (22:50)
[2024-04-25 22:55] LABS: Appearance,Urine Clear (Clear); Bilirubin,Urine Negative (Negative); Blood,Urine Negative (Negative); Color,Urine Colorless; Glucose,Urine (UA) Negative (Negative); Ketones,Urine Negative (Negative); Leukocyte Esterase,Urine Negative (Negative); Nitrite,Urine Negative (Negative); Protein,Urine Negative (Negative); Specific Gravity,Urine 1.005 (1.001-1.035); Urobilinogen,Urine <2.0 mg/dL (<2.0)
--- NOTE | 2024-04-25 22:55 | CT ---
EXAMINATION TYPE: CT brain wo con DATE OF EXAM: 04/25/2024 10:05 PM COMPARISON: 06/20/2023. CLINICAL INDICATION: Male, 58 years old with history of altered mental status, TECHNIQUE: Brain: Axial CT images of the brain were obtained with coronal and sagittal reformats created and rev iewed. Contrast used: None. Oral contrast used: None. CT DLP: 1207 mGycm, Automated exposure control for dose reduction was used. FINDINGS: Brain: Extra-axial spaces: No abnormal extra-axial fluid collections. Ventricular system: Within normal limits Cerebral parenchyma: Prior injury with encephalomalacia in the left posterior parietal region No acut e intraparenchymal hemorrhage or mass effect. The werner-white junction is well differentiated. Cerebellum: Unremarkable. Mass effect: No evidence of midline shift. Intracranial vasculature: unremarkable Soft tissues: Normal. Calvarium/osseous structures: No depressed skull fracture. Paranasal sinuses and mastoid air cells: Mild scattered paranasal sinus disease. Visualized orbits: Orbital contents are intact. IMPRESSION: 1. No acute intracranial process. 2. Remote injury left parietal region. [facility], , 04/25/2024 10:53 PM
[2024-04-25 23:41] LABS: Amphetamine Screen,Urine Not Detected (NotDetected); Barbiturate Screen,Urine Not Detected (NotDetected); Benzodiazepines Screen,Urine Not Detected (NotDetected); Cocaine Screen,Urine Not Detected (NotDetected); Methadone Screen, Urine Not Detected (NotDetected); Opiate Screen,Urine Not Detected (NotDetected); Oxycodone Screen, Urine Not Detected (NotDetected); Phencyclidine Screen,Urine Not Detected (NotDetected); Tricyclic Antidepressant,Urine Detected (NotDetected); Urn Cannabinoid Scrn Not Detected (NotDetected)
[2024-04-26] MEDS: levETIRAcetam IV 2,000 MG in SODIUM CHLORIDE 0.9% 250 ML IVPB ONE (00:45)
[2024-04-26] MEDS ORDERED: NALOXONE 0.4 MG/ML 1 ML VIAL IV PRN (01:43)
[2024-04-26] MEDS ORDERED: LORazepam 2 MG/ML INJ IV PRN (01:49)
[2024-04-26] MEDS: hydrALAZINE HCL 20 MG/ML 1 ML VIAL IVP PRN (05:17)
[2024-04-26] MEDS: SODIUM CHLORIDE 0.9% 1,000 ML IV SCH (07:28)
[2024-04-26] MEDS: lamoTRIgine 100 MG TAB PO SCH ×2 (08:54→19:22)
[2024-04-26] MEDS ORDERED: BRIVIACT 100 MG PO SCH (09:00)
[2024-04-26] MEDS ORDERED: lamoTRIgine 25 MG TAB PO SCH (09:00)
[2024-04-26] MEDS ORDERED: NON FORMULARY DRUG (Brivaracetam [Briviact] 50 MG Tablet) PO SCH (09:00)
[2024-04-26] MEDS ORDERED: BRIVIACT 50 MG PO SCH (09:00)
[2024-04-26] MEDS ORDERED: HALOPERIDOL LACTATE 5 MG/ML 1 ML VIAL IVP PRN (09:41)
[2024-04-26] MEDS: carvediloL 12.5 MG TAB PO SCH (12:02)
[2024-04-26] MEDS: amLODIPine 5 MG TAB PO SCH (12:02)
[2024-04-26] MEDS: lamoTRIgine 25 MG TAB PO SCH ×2 (12:03→19:22)
[2024-04-26] MEDS: ATORVASTATIN 80 MG TAB PO SCH (12:03)
[2024-04-26] MEDS: CHOLECALCIFEROL 25 MCG (1000 IU) TABLET PO SCH (12:03)
[2024-04-26] MEDS: PANTOPRAZOLE 40 MG/10 ML VIAL IV SCH (12:03)
[2024-04-26] MEDS: TAMSULOSIN 0.4 MG CAP.ER.24H PO SCH ×2 (12:03→20:25)
[2024-04-26] MEDS: MAGNESIUM OXIDE 400 MG TAB PO SCH (12:03)
[2024-04-26] MEDS: BRIVIACT 100 MG PO SCH (12:04)
[2024-04-26] MEDS: BRIVIACT 50 MG PO SCH (12:06)
--- NOTE | 2024-04-26 14:06 | P.HPIM ---
History of Present Illness H&P Date: 04/26/24 History of present illness; patient 58-year-old gentleman with past medical history significant for seizures, hypertension was brought to the ER for altered mental status. Patient was apparently found sitting at home on on the couch dazing in the space. Patient has history of previous seizures and family felt as if the patient had a seizure and was in postictal state. There was no loss of fecal incontinence. There was no noticeable tongue bite. There was no obvious sign of trauma. Patient continues to be very confused and was not responding. Patient was brought to the ER Initial lab work done in the ER showed WBC 5.2, hemoglobin 14.9, platelet 178 sodium 141, potassium 4, BUN 12, creatinine 1.11, calcium 9.3, magnesium 2.3, bilirubin 0.5, AST 23, ALT 33 UA negative for infection Urine drug screen positive for TCA Serum alcohol less than 10 EKG done in the ER showed heart rate of 51 , no ST segment elevation or depression seen, no T-wave inversions seen. Chest x-ray done in the ER showed no acute cardiopulmonary process CT head done showed no acute intracranial process, remote injury left parietal region Patient admitted to internal medicine service REVIEW OF SYSTEMS: Review of system cannot be obtained as patient is encephalopathic PHYSICAL EXAMINATION: GENERAL: The patient is alert self, not in any acute distress. Well developed, well nourished. HEENT: Pupils are round and equally reacting to light. EOMI. No scleral icterus. No conjunctival pallor. Normocephalic, atraumatic. No pharyngeal erythema. No thyromegaly. CARDIOVASCULAR: S1 and S2 present. No murmurs, rubs, or gallops. PULMONARY: Chest is clear to auscultation, no wheezing or crackles. ABDOMEN: Soft, nontender, nondistended, normoactive bowel sounds. No palpable organomegaly. MUSCULOSKELETAL: No joint swelling or deformity. EXTREMITIES: No cyanosis, clubbing, or pedal edema. NEUROLOGICAL: Gross neurological examination did not reveal any focal deficits. SKIN: No rashes. Assessment and plan Acute metabolic encephalopathy Seizures Hypertension Hyperlipidemia GERD History of seizure disorder History of hemorrhagic stroke Monitor vital signs Monitor CBC Monitor CMP Continue telemetry monitoring Seizure precaution Aspiration precaution Fall precautions Ordered EEG Resume Lamictal and Briviact Consult neurology Labs and medication were reviewed.. Continue same treatment. Continue with symptomatic treatment. Resume home medication. Monitor labs and vitals. DVT and GI prophylaxis. Further recommendations as per clinical course of the patient Dictation was produced using [employer] dictation software. please excuse any grammatical, word or spelling errors. Past Medical History Past Medical History: CVA/TIA, GERD/Reflux, Hyperlipidemia, Hypertension, Pneumonia, Seizure Disorder Additional Past Medical History / Comment(s): L hemorrhagic stroke-R sided weakness and has had occasions of increased irritability/agitation/isolation, multiple mental health unit admissions, uncontrolled seizures, L pneumothorax with chest tube, migraines History of Any Multi-Drug Resistant Organisms: None Reported Past Surgical History: No Surgical Hx Reported Additional Past Surgical History / Comment(s): COLONOSCOPY w/ POLYPS REMOVED- NEG, bilateral cataract removal, R testicular surgery as a child Past Anesthesia/Blood Transfusion Reactions: No Reported Reaction Additional Past Anesthesia/Blood Transfusion Reaction / Comment(s): Pt has never recieved blood. Past Psychological History: Anxiety, Bipolar, Depression, Panic Disorder Smoking Status: Current every day smoker Past Alcohol Use History: None Reported Past Drug Use History: None Reported - Past Family History Father Family Medical History: Cancer, Hyperlipidemia, Hypertension, Prostate Disorder Additional Family Medical History / Comment(s): PROSTATE CA Mother Family Medical History: Osteoarthritis (OA) Additional Family Medical History / Comment(s): MOM IS 71 Medications and Allergies Home Medications Medication Instructions Recorded Confirmed Type Famotidine [Pepcid] 20 mg PO BID #60 tab 11/21/18 04/26/24 Rx carvediloL [Coreg] 25 mg PO BID #60 tablet 07/13/21 04/26/24 Rx Aspirin EC [Ecotrin Low Dose] 81 mg PO DAILY 09/04/21 04/26/24 History Atorvastatin [Lipitor] 80 mg PO DAILY 11/07/21 04/26/24 History Tamsulosin [Flomax] 0.4 mg PO DAILY 02/20/22 04/26/24 History amLODIPine [Norvasc] 5 mg PO DAILY 02/20/22 04/26/24 History Baclofen [Lyvispah] 20 mg PO TID 09/18/22 04/26/24 History lamoTRIgine [LaMICtal] 200 mg PO BID 09/18/22 04/26/24 History Nitroglycerin Sl Tabs [Nitrostat] 0.4 mg SUBLINGUAL Q5M PRN #20 tab 09/20/22 04/26/24 Rx Cholecalciferol [Vitamin D3 (25 50 mcg PO DAILY 06/20/23 04/26/24 History Mcg = 1000 Iu)] Brivaracetam [Briviact] 50 mg PO BID 04/26/24 04/26/24 History Brivaracetam [Briviact] 100 mg PO BID 04/26/24 04/26/24 History Midazolam [Nayzilam] 1 spray NASAL ONCE PRN 04/26/24 04/26/24 History QUEtiapine [SEROquel] 400 mg PO HS 04/26/24 04/26/24 History lamoTRIgine [LaMICtal] 50 mg PO BID 04/26/24 04/26/24 History Allergies Allergy/AdvReac Type Severity Reaction Status Date / Time No Known Allergies Allergy Verified 04/25/24 21:09 Physical Exam Vitals: Vital Signs Temp Pulse Pulse Resp BP BP Pulse Ox 04/26/24 07:55 160/92 98 04/26/24 06:09 165/84 04/26/24 05:43 176/104 04/26/24 05:01 60 198/102 04/26/24 04:50 97.3 F L 59 L 19 203/102 97 04/26/24 04:14 98.4 F 63 19 170/90 96 04/25/24 22:50 68 22 112/92 97 04/25/24 21:36 49 L 16 160/81 98 04/25/24 21:04 98.8 F 55 L 16 154/107 98 Intake and Output 04/25/24 04/26/24 04/26/24 22:59 06:59 14:59 Intake Total 0 Balance 0 Intake: Oral 0 Other: # Voids 0 Weight 97.522 kg Results CBC & Chem 7: 04/25/24 21:19 04/25/24 21:19 Labs: Abnormal Lab Results - Last 24 Hours (Table) 04/25/24 04/25/24 Range/Units 21:19 22:50 Lymphocytes # 0.9 L (1.0-4.8) k/uL U Tricyclic Antidepress Detected H (NotDetected)
[2024-04-26] MEDS: ASPIRIN 81 MG PO SCH (16:59)
[2024-04-26] MEDS: QUEtiapine 400 MG TAB PO SCH (20:25)
[2024-04-26] MEDS ORDERED: QUEtiapine 100 MG TAB PO SCH (21:00)
[2024-04-26] MEDS: MAG HYDROX/AL HYDROX/SIMETH 30 ML CUP PO PRN (21:51)
--- NOTE | 2024-04-26 22:13 | P.CNNES ---
History of Present Illness Consult date: 04/26/24 Requesting physician: Zeus Camilo Reason for Consult: Prolonged post-ictal period History of Present Illness: Patient is a 58-year-old male came to the hospital by ambulance yesterday at 9:01 PM for altered mental status, which feels like postictal state. Patient has history of medically intractable epilepsy. Patient follows up at [facility] and is scheduled for brain surgery on 05/22/2024. It appears patient received refills of his medications as a bubble pack from his pharmacy, but the seizure medication dose was not correct. Patient takes ~250 mg twice daily and Briviact 150 mg twice daily. The bubble pack did not have Lamictal 200 mg tablets whereas only 25 mg tablets were present in the bubble pack and he takes 2 tablets twice a day. Patient significant other and patient's mother both were present, who mentioned that patient usually sleeps on the couch. Patient's significant other left to get errands yesterday at 11 AM and he was perfectly fine. When she came back at 7 or 8 PM, he was sitting on the couch, totally delirious, flailing his arms, foaming from the mouth. He could not walk or talk. He was totally out. It was not a seizure, but random movement, which she feels like a postictal state, as she believes that patient had an unwitnessed seizure. He did not bite his tongue. As per EMS flowsheet, when they arrived, patient was sitting on the couch unresponsive and was unable to get any reaction from him. Patient was not responding to verbal stimuli, did open his eyes to sternal rub but also opened his eyes randomly, pupils were equal and slightly reactive, 2 mm. Patient did not move left arm. Patient appeared to combative but did not have any purpos eful movement. Vitals at the scene was blood pressure 168/90, pulse rate 56,, respiration 20, saturation 96%, blood glucose 110. Vital signs on arrival blood pressure 154/107, which came up to 160/81. Pulse rate 55 temperature 98.8 blood test shows normal CBC, CMP, UA. Urine drug screen positive for tricyclic. Blood alcohol level negative. EKG showed sinus bradycardia with first-degree AV block. CT head showed no acute intracranial process. Remote injury left parietal region. I personally reviewed CT head, and agree with the findings. Patient does take aspirin 81 mg, Lipitor 80 mg, Lamictal 200 mg twice daily, Lamictal 50 mg twice daily, baclofen 20 mg 3 times daily, Briviact 150 mg twice daily. Patient has been seen by myself previously on 02/14/2021 for breakthrough seizures. 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 Patient follows up with Dr. Ramirez. Patient has previously tried Vimpat and Lamictal. On the last time he was seen in the hospital, he was taking Lamictal 225 mg twice a day and zonisamide 200 mg twice a day. His zonisamide level was therapeutic 22 (10-40), and Lamictal level was 7.7 (2-15). On review of records, it appears patient was previously on Dilantin 200 mg 3 times a day back in April 2017. He also was on Vimpat 150 mg twice a day in the past. He was started on Lamictal on 04/23/[address] Muhammad. He also has previously tried Keppra, Trileptal, zonisamide. Review of Systems Patient not able to provide much review of systems due to mental status. Other review of systems as per HPI, reported by the family members. ROS unobtainable: due to mental status Past Medical History Past Medical History: CVA/TIA, GERD/Reflux, Hyperlipidemia, Hypertension, Pneumonia, Seizure Disorder Additional Past Medical History / Comment(s): L hemorrhagic stroke-R sided weakness and has had occasions of increased irritability/agitation/isolation, multiple mental health unit admissions, uncontrolled seizures, L pneumothorax with chest tube, migraines History of Any Multi-Drug Resistant Organisms: None Reported Past Surgical History: No Surgical Hx Reported Additional Past Surgical History / Comment(s): COLONOSCOPY w/ POLYPS REMOVED- NEG, bilateral cataract removal, R testicular surgery as a child Past Anesthesia/Blood Transfusion Reactions: No Reported Reaction Additional Past Anesthesia/Blood Transfusion Reaction / Comment(s): Pt has never recieved blood. Past Psychological History: Anxiety, Bipolar, Depression, Panic Disorder Smoking Status: Current every day smoker Past Alcohol Use History: None Reported Past Drug Use History: None Reported - Past Family History Father Family Medical History: Cancer, Hyperlipidemia, Hypertension, Prostate Disorder Additional Family Medical History / Comment(s): PROSTATE CA Mother Family Medical History: Osteoarthritis (OA) Additional Family Medical History / Comment(s): MOM IS 71 Medications and Allergies Home Medications Medication Instructions Recorded Confirmed Type Famotidine [Pepcid] 20 mg PO BID #60 tab 11/21/18 04/26/24 Rx carvediloL [Coreg] 25 mg PO BID #60 tablet 07/13/21 04/26/24 Rx Aspirin EC [Ecotrin Low Dose] 81 mg PO DAILY 09/04/21 04/26/24 History Atorvastatin [Lipitor] 80 mg PO DAILY 11/07/21 04/26/24 History Tamsulosin [Flomax] 0.4 mg PO DAILY 02/20/22 04/26/24 History amLODIPine [Norvasc] 5 mg PO DAILY 02/20/22 04/26/24 History Baclofen [Lyvispah] 20 mg PO TID 09/18/22 04/26/24 History lamoTRIgine [LaMICtal] 200 mg PO BID 09/18/22 04/26/24 History Nitroglycerin Sl Tabs [Nitrostat] 0.4 mg SUBLINGUAL Q5M PRN #20 tab 09/20/22 04/26/24 Rx Cholecalciferol [Vitamin D3 (25 50 mcg PO DAILY 06/20/23 04/26/24 History Mcg = 1000 Iu)] Brivaracetam [Briviact] 50 mg PO BID 04/26/24 04/26/24 History Brivaracetam [Briviact] 100 mg PO BID 04/26/24 04/26/24 History Midazolam [Nayzilam] 1 spray NASAL ONCE PRN 04/26/24 04/26/24 History QUEtiapine [SEROquel] 400 mg PO HS 04/26/24 04/26/24 History lamoTRIgine [LaMICtal] 50 mg PO BID 04/26/24 04/26/24 History Oseltamivir [Tamiflu] 75 mg PO Q12HR 4 Days #8 cap 04/27/24 Rx Allergies Allergy/AdvReac Type Severity Reaction Status Date / Time No Known Allergies Allergy Verified 04/25/24 21:09 Physical Examination - Vital Signs Vital Signs: Vital Signs Temp Pulse Pulse Resp BP BP Pulse Ox 04/26/24 13:28 98.9 F 92 15 140/88 93 L 04/26/24 07:55 160/92 98 04/26/24 06:09 165/84 04/26/24 05:43 176/104 04/26/24 05:01 60 198/102 04/26/24 04:50 97.3 F L 59 L 19 203/102 97 04/26/24 04:14 98.4 F 63 19 170/90 96 04/25/24 22:50 68 22 112/92 97 04/25/24 21:36 49 L 16 160/81 98 04/25/24 21:04 98.8 F 55 L 16 154/107 98 Intake and Output 04/26/24 04/26/24 04/26/24 06:59 14:59 22:59 Intake Total 0 Output Total 900 Balance 0 -900 Intake: Oral 0 Output: Urine 900 Straight 900 Other: # Voids 0 Weight 97.522 kg Patient is a middle aged male, appears obviously encephalopathic, postictal. Patient is frequently coughing. As I entered the room, patient states "I am dying now" Patient is very restless. Initially he was mumbling, but as I continue to examine, his mentation improved. He was unable to swallow any liquids, but now he is. He has not received any of his morning medications including seizure medications because of not able to take anything by mouth. Speech was initially slurred, but later cleared up. However he was still very perseverating. Patient able to name certain objects like pen, but even for eyeglasses, patient continued to say pen. Has some spontaneous speech has improved, but still quite postictal, somewhat aphasic. On cranial nerve examination, pupils are equal, round and reacting to light, visual callejas could not be tested because of his mental status. He was not cooperating. Extraocular muscles are intact. Face is symmetric, tongue protrudes to the midline. Palatal elevation and sensation normal, hearing and shoulder shrug normal, facial sensation normal. On muscle strength testing, there is right pronator drift and the strength is (right/left) deltoid 4/5, biceps 5/5, triceps 5/5, [employer] 5/5. In the lower limbs hip flexion 5-/5, ankle dorsiflexion 5/5. Deep tendon reflexes are (right/left) biceps 1+2/1, brachioradialis 1+2/1, knees 1/trace, ankles 1/1 and plantars downgoing bilaterally. Sensory to touch could not be assessed because of mental function. Cerebellar function could not be tested because of noncooperation. Tone and bulk of muscles normal. Gait deferred.. On general examination, there is no carotid bruit or murmur, S1-S2 audible. Chest is clear on consultation. Abdomen is soft nontender. No organomegaly, bowel sounds present. Peripheral pulses are present. No peripheral edema. Results - Laboratory Findings CBC and BMP: 04/25/24 21:19 04/25/24 21:19 Abnormal Lab Findings: Abnormal Labs 04/25/24 04/25/24 21:19 22:50 Lymphocytes # 0.9 L U Tricyclic Antidepress Detected H Assessment and Plan Assessment: * Seizure disorder, came with probable unwitnessed seizure with prolonged pos tictal state. * Breakthrough seizure, likely due to receiving suboptimal dose of Lamictal by the pharmacist. Patient did not receive Lamictal 200 mg twice daily in his bubble pack refill. * Post stroke epilepsy, medically intractable * History of left parietal hemorrhagic stroke in 2014 with mild residual right hemiparesis. * History of tobacco use * Hypertension * Depression Plan: * Resume Lamictal 250 mg twice daily and Briviact 150 mg twice daily. Patient's mentation has improved, was able to take his medication now. * Briviact is nonformulary, but patient's significant other will bring home medications so patient can continue to receive Briviact. * Patient's family need to inform his outside pharmacy to issue new bubble pack with correct medications. * Seizure precautions * Patient is a fall risk. * Observe overnight. * Continue aspirin 81 mg and Lipitor 80 mg. * Discussed with patient's mother and significant other. * Patient is undergoing some epilepsy surgery at [facility] on 05/22/2024. * Neurology will follow. Thank you for the consult.
[2024-04-26 22:53] LABS: Influenza A Detected (Not Detectd); Influenza B Not Detected (Not Detectd); RSV Not Detected (Not Detectd)
[2024-04-26] MEDS: OSELTAMIVIR 75 MG CAP PO SCH (23:50)
[2024-04-27 03:30] VITALS: TEMP 97.6
[2024-04-27 06:56] VITALS: PULSE 60
[2024-04-27 08:26] VITALS: BP 108/72; RESP 17
--- NOTE | 2024-04-27 11:47 | P.PN ---
Subjective Progress Note Date: 04/27/24 Patient was seen for follow-up. No further seizures overnight. Patient doing much better. Patient admits that he was taking last dose of Lamictal, as a bubble pack did not have Lamictal 200 mg. He does have extra supply of Lamictal, which he keeps under the shelf but he was not taking it, as he can re member. Objective - Vital Signs Vital signs: Vital Signs Temp 97.6 F 04/27/24 07:52 Pulse 60 04/27/24 07:52 Resp 17 04/27/24 07:52 BP 108/72 04/27/24 07:52 Pulse Ox 93 L 04/27/24 07:52 FiO2 Intake & Output 04/26/24 04/27/24 04/27/24 18:59 06:59 18:59 Intake Total 1000 Output Total 1450 50 Balance -1450 950 Intake: Oral 1000 Output: Urine 1450 50 Straight 1450 Other: # Bowel Movements 2 - Exam Patient is alert and awake. He knows it is April and the year is 2024 and that he is in [facility] in [facility]. Speech and language functions appears normal although he has slight hesitancy at times. No perseveration. Cranial nerves are normal. Visual callejas are full. On muscle testing there is no pronator drift and the strength is completely normal in the arms and legs distally and proximally. The right-sided weakness noted yesterday has resolved. Likely was a postictal effect. Sensory to touch is equal with no neglect. No ataxia for [id number] testing. - Labs CBC & Chem 7: 04/25/24 21:19 04/25/24 21:19 Labs: Abnormal Lab Results - Last 24 Hours (Table) 04/26/24 Range/Units 22:00 Influenza Type A (PCR) Detected A (Not Detectd) Assessment and Plan Assessment: * Seizure disorder, came with probable unwitnessed seizure with prolonged postic elizabeth state. * Breakthrough seizure, likely due to receiving suboptimal dose of Lamictal by the pharmacist. Patient did not receive Lamictal 200 mg twice daily in his bubble pack refill. * Post stroke epilepsy, medically intractable * History of left parietal hemorrhagic stroke in 2015 with mild residual right hemiparesis. * History of tobacco use * Hypertension * Depression Plan: * Resume Lamictal 250 mg twice daily and Briviact 150 mg twice daily. Patient's mentation has improved, was able to take his medication now. * Briviact is nonformulary, but patient's significant other will bring home medications so patient can continue to receive Briviact. * Patient's family need to inform his outside pharmacy to issue new bubble pack with correct medications. * Seizure precautions * Patient is a fall risk. * Observe overnight. * Continue aspirin 81 mg and Lipitor 80 mg. * Neurologically clear for discharge. * Patient is undergoing some epilepsy surgery at [facility] on 05/22/2024.
--- NOTE | 2024-04-27 14:11 | P.DS ---
Providers Date of admission: 04/26/24 01:48 Expected date of discharge: 04/27/24 Attending physician: Ramon Delcid Consults: 04/26/24 01:43 Consult Physician Routine Consulting Provider: Soniya Lancaster Consult Reason/Comments: Prolonged post-ictal period Do you want consulting provider notified?: Yes Primary care physician: Stated None Hospital Course: Discharge diagnoses; Acute metabolic encephalopathy Acute influenza infection Seizures Hypertension Hyperlipidemia GERD History of seizure disorder History of hemorrhagic stroke Hospital course; patient 58-year-old gentleman with past medical history significant for seizures, hypertension was brought to the ER for altered mental status. Patient was apparently found sitting at home on on the couch dazing in the space. Patient has history of previous seizures and family felt as if the patient had a seizure and was in postictal state. There was no loss of fecal incontinence. There was no noticeable tongue bite. There was no obvious sign of trauma. Patient continues to be very confused and was not responding. Patient was brought to the ER Initial lab work done in the ER showed WBC 5.2, hemoglobin 14.9, platelet 178 sodium 141, potassium 4, BUN 12, creatinine 1.11, calcium 9.3, magnesium 2.3, bilirubin 0.5, AST 23, ALT 33 UA negative for infection Urine drug screen positive for TCA Serum alcohol less than 10 EKG done in the ER showed heart rate of 51 , no ST segment elevation or depression seen, no T-wave inversions seen. Chest x-ray done in the ER showed no acute cardiopulmonary process CT head done showed no acute intracranial process, remote injury left parietal region Patient admitted to internal medicine service 04/27. Patient seen and examined. Patient had a viral workup done overnight which showed patient to be positive for influenza A. Started on Tamiflu. Neurology recommended keeping patient on home regimen of antiepileptics. PHYSICAL EXAMINATION: GENERAL: The patient is alert and oriented x3, not in any acute distress. Well developed, well nourished. HEENT: Pupils are round and equally reacting to light. EOMI. No scleral icterus. No conjunctival pallor. Normocephalic, atraumatic. No pharyngeal erythema. No thyromegaly. CARDIOVASCULAR: S1 and S2 present. No murmurs, rubs, or gallops. PULMONARY: Chest is clear to auscultation, no wheezing or crackles. ABDOMEN: Soft, nontender, nondistended, normoactive bowel sounds. No palpable organomegaly. MUSCULOSKELETAL: No joint swelling or deformity. EXTREMITIES: No cyanosis, clubbing, or pedal edema. NEUROLOGICAL: Gross neurological examination did not reveal any focal deficits. SKIN: No rashes. Dictation was produced using [employer] for [employer] dictation software. please excuse any grammatical, word or spelling errors. Patient Condition at Discharge: Good Plan - Discharge Summary Discharge Rx Participant: No New Discharge Prescriptions: New Oseltamivir [Tamiflu] 75 mg PO Q12HR 4 Days #8 cap Continue Famotidine [Pepcid] 20 mg PO BID #60 tab Atorvastatin [Lipitor] 80 mg PO DAILY Tamsulosin [Flomax] 0.4 mg PO DAILY lamoTRIgine [LaMICtal] 200 mg PO BID Brivaracetam [Briviact] 100 mg PO BID Brivaracetam [Briviact] 50 mg PO BID Midazolam [Nayzilam] 1 spray NASAL ONCE PRN PRN Reason: Seizures carvediloL [Coreg] 25 mg PO BID #60 tablet Aspirin EC [Ecotrin Low Dose] 81 mg PO DAILY amLODIPine [Norvasc] 5 mg PO DAILY Baclofen [Lyvispah] 20 mg PO TID Nitroglycerin Sl Tabs [Nitrostat] 0.4 mg SUBLINGUAL Q5M PRN #20 tab PRN Reason: Chest Pain Cholecalciferol [Vitamin D3 (25 Mcg = 1000 Iu)] 50 mcg PO DAILY lamoTRIgine [LaMICtal] 50 mg PO BID QUEtiapine [SEROquel] 400 mg PO HS Discharge Medication List Famotidine [Pepcid] 20 mg PO BID #60 tab 11/21/18 [Rx] carvediloL [Coreg] 25 mg PO BID #60 tablet 07/13/21 [Rx] Aspirin EC [Ecotrin Low Dose] 81 mg PO DAILY 09/04/21 [History] Atorvastatin [Lipitor] 80 mg PO DAILY 11/07/21 [History] Tamsulosin [Flomax] 0.4 mg PO DAILY 02/20/22 [History] amLODIPine [Norvasc] 5 mg PO DAILY 02/20/22 [History] Baclofen [Lyvispah] 20 mg PO TID 09/18/22 [History] lamoTRIgine [LaMICtal] 200 mg PO BID 09/18/22 [History] Nitroglycerin Sl Tabs [Nitrostat] 0.4 mg SUBLINGUAL Q5M PRN #20 tab 09/20/22 [Rx] Cholecalciferol [Vitamin D3 (25 Mcg = 1000 Iu)] 50 mcg PO DAILY 06/20/23 [History] Brivaracetam [Briviact] 50 mg PO BID 04/26/24 [History] Brivaracetam [Briviact] 100 mg PO BID 04/26/24 [History] Midazolam [Nayzilam] 1 spray NASAL ONCE PRN 04/26/24 [History] QUEtiapine [SEROquel] 400 mg PO HS 04/26/24 [History] lamoTRIgine [LaMICtal] 50 mg PO BID 04/26/24 [History] Oseltamivir [Tamiflu] 75 mg PO Q12HR 4 Days #8 cap 04/27/24 [Rx] Follow up Appointment(s)/Referral(s): None,Stated [Primary Care Provider] - 1-2 days (Please call a primary care provider for follow-up appointment.) Discharge Disposition: HOME SELF-CARE
== END 2024-04-27 13:16 | disposition home or self-care (01) ==
LOC: EC 21:01 → 4SSUR 04-26 01:48 → INTOOBSV 04-26 01:48 → 4SSUR 04-26 04:08
PROVIDERS: ADMIT Hospitalist; ATTEND Hospitalist
DX: G93.41 Metabolic encephalopathy (principal); I69.354 Hemiplegia and hemiparesis following cerebral infarction affecting left non-dominant side; J10.1 Influenza due to other identified influenza virus with other respiratory manifestations; G40.909 Epilepsy, unspecified, not intractable, without status epilepticus; E78.5 Hyperlipidemia, unspecified; I10 Essential (primary) hypertension; K21.9 Gastro-esophageal reflux disease without esophagitis; F31.9 Bipolar disorder, unspecified; F41.0 Panic disorder [episodic paroxysmal anxiety]; F17.200 Nicotine dependence, unspecified, uncomplicated; Z11.52 Encounter for screening for COVID-19; Z79.02 Long term (current) use of antithrombotics/antiplatelets; Z79.82 Long term (current) use of aspirin; Z79.899 Other long term (current) drug therapy
CPT/HCPCS: 96375 ×3; 96365; 99285; 36415; 93005; 80053; 83605; 83735; 85025; 81003; 80306; 87636; 71045; 70450; G0378 ×2; G0480; J2060; J0360; J1953; J2470; 80320; 96374

== ENCOUNTER 2024-07-06 15:34 | Observation (INO) | payer OTHER ==
--- NOTE | 2024-07-06 16:06 | ED ---
General Adult HPI - General Source: patient, EMS, RN notes reviewed, old records reviewed Mode of arrival: EMS <Bart West - Last Filed: 07/06/24 16:07> - General Source: patient, EMS, RN notes reviewed, old records reviewed Mode of arrival: EMS Limitations: no limitations - History of Present Illness -: days(s) Location: chest Radiation: non-radiation Severity scale (1-10): 4 Consistency: constant Improves with: none Worsens with: none Associated Symptoms: chest pain, headaches Treatments Prior to Arrival: none <Owen Farah - Last Filed: 07/06/24 17:59> - General Chief complaint: Chest Pain Stated complaint: Seizure Time Seen by Provider: 07/06/24 15:45 - History of Present Illness Initial comments: Patient is a 58-year-old male with past medical history remarkable for hypertension, hyperlipidemia, seizure disorder, history of a left-sided hemorrha gic stroke, CVA. Presents emergency department for feeling unwell for a few days. Apparently patient has been laying in bed weak for few days. Unknown if he has been compliant with his medications. Thinks he may have had a few breakthrough seizures, last occurring earlier this morning. Unknown compliance with medications. Also states he has had some left-sided chest pain over the last few days as well. Currently no chest pain. States is over the left side of his chest when it is present and has pressure. No diaphoresis or nausea associated. No radiation of the pain. Per patient, no cardiac history. He tells me a story that he recently had 10 bur holes drilled approximately 1-2 we ek ago. This is for an implant for his seizure disorder. This was done at [facility] per patient. Currently he is resting comfortably. Is alert and oriented. Has no acute complaints. Presents for further evaluation. Does complain of a mild headache. (Bart West) This is a 58-year-old male to ER complicated medical history significant recent inpatient hospitalizations, patient presents today for recurrent seizures decreased ability to ambulate and decreased activities of daily living with seizure complication post seizure, persistent chest pain (Owen Farah) - Related Data Home Medications Medication Instructions Recorded Confirmed Aspirin EC [Ecotrin Low Dose] 81 mg PO DAILY 09/04/21 04/26/24 Atorvastatin [Lipitor] 80 mg PO DAILY 11/07/21 04/26/24 Tamsulosin [Flomax] 0.4 mg PO DAILY 02/20/22 04/26/24 amLODIPine [Norvasc] 5 mg PO DAILY 02/20/22 04/26/24 Baclofen [Lyvispah] 20 mg PO TID 09/18/22 04/26/24 lamoTRIgine [LaMICtal] 200 mg PO BID 09/18/22 04/26/24 Cholecalciferol [Vitamin D3 (25 50 mcg PO DAILY 06/20/23 04/26/24 Mcg = 1000 Iu)] Brivaracetam [Briviact] 50 mg PO BID 04/26/24 04/26/24 Brivaracetam [Briviact] 100 mg PO BID 04/26/24 04/26/24 Midazolam [Nayzilam] 1 spray NASAL ONCE PRN 04/26/24 04/26/24 QUEtiapine [SEROquel] 400 mg PO HS 04/26/24 04/26/24 lamoTRIgine [LaMICtal] 50 mg PO BID 04/26/24 04/26/24 Previous Rx's Medication Instructions Recorded Famotidine [Pepcid] 20 mg PO BID #60 tab 11/21/18 carvediloL [Coreg] 25 mg PO BID #60 tablet 07/13/21 Nitroglycerin Sl Tabs [Nitrostat] 0.4 mg SUBLINGUAL Q5M PRN #20 tab 09/20/22 Oseltamivir [Tamiflu] 75 mg PO Q12HR 4 Days #8 cap 04/27/24 Allergies Allergy/AdvReac Type Severity Reaction Status Date / Time No Known Allergies Allergy Verified 07/06/24 17:52 Review of Systems ROS Other: All systems not noted in ROS Statement are negative. <Bart West - Last Filed: 07/06/24 16:07> ROS Other: All systems not noted in ROS Statement are negative. <Owen Farah - Last Filed: 07/06/24 17:59> ROS Statement: Those systems with pertinent positive or pertinent negative responses have been documented in the HPI. Review of Systems: CONST: Denies fever EYES: Denies blurry vision ENT: Denies nasal congestion C/V: Denies Chest pain RESP: Denies shortness of breath GI: Denies abdominal pain : Denies dysuria SKIN: Denies rash. MSK: Denies joint pain. NEURO: Endorses headache (Bart West) Past Medical History Past Medical History: CVA/TIA, GERD/Reflux, Hyperlipidemia, Hypertension, Pneu monia, Seizure Disorder Additional Past Medical History / Comment(s): L hemorrhagic stroke-R sided weakness and has had occasions of increased irritability/agitation/isolation, multiple mental health unit admissions, uncontrolled seizures, L pneumothorax with chest tube, migraines History of Any Multi-Drug Resistant Organisms: None Reported Past Surgical History: No Surgical Hx Reported Additional Past Surgical History / Comment(s): COLONOSCOPY w/ POLYPS REMOVED- NEG, bilateral cataract removal, R testicular surgery as a child Past Anesthesia/Blood Transfusion Reactions: No Reported Reaction Additional Past Anesthesia/Blood Transfusion Reaction / Comment(s): Pt has never recieved blood. Past Psychological History: Anxiety, Bipolar, Depression, Panic Disorder Smoking Status: Current every day smoker Past Alcohol Use History: None Reported Past Drug Use History: None Reported - Past Family History Father Family Medical History: Cancer, Hyperlipidemia, Hypertension, Prostate Disorder Additional Family Medical History / Comment(s): PROSTATE CA Mother Family Medical History: Osteoarthritis (OA) Additional Family Medical History / Comment(s): MOM IS 71 <Bart West - Last Filed: 07/06/24 16:07> General Exam <Bart West - Last Filed: 07/06/24 16:07> General appearance: alert, in no apparent distress Head exam: Present: atraumatic, normocephalic, normal inspection Eye exam: Present: normal appearance, PERRL, EOMI. Absent: scleral icterus, conjunctival injection, periorbital swelling ENT exam: Present: normal exam, mucous membranes moist Neck exam: Present: normal inspection. Absent: tenderness, meningismus, lymphadenopathy Respiratory exam: Present: normal lung sounds bilaterally. Absent: respiratory distress, wheezes, rales, rhonchi, stridor Cardiovascular Exam: Present: regular rate, normal rhythm, normal heart sounds. Absent: systolic murmur, diastolic murmur, rubs, gallop, clicks GI/Abdominal exam: Present: soft, normal bowel sounds. Absent: distended, tenderness, guarding, rebound, rigid Extremities exam: Present: normal inspection, full ROM, normal capillary refill. Absent: tenderness, pedal edema, joint swelling, calf tenderness Back exam: Present: normal inspection Neurological exam: Present: alert, oriented X3, CN II-XII intact Psychiatric exam: Present: normal affect, normal mood Skin exam: Present: warm, dry, intact, normal color. Absent: rash <Owen Farah - Last Filed: 07/06/24 17:59> - General Exam Comments Initial Comments: General: Appears in no acute distress. HEAD: Normal with no signs of head trauma.No evidence of bur holes at the skull. No evidence of trauma of the skull. EYES: PERRLA, EOMI, conjunctiva normal, no discharge. Pupils 3 mm and equal bilaterally. ENT: Hearing grossly intact, normal oropharynx. RESPIRATORY: Clear breath sounds bilaterally. No wheezes, rales, or rhonchi. C/V: Regular rate and rhythm. S1 and S2 auscultated, no edema, peripheral pulses 2+ and intact throughout ABD: Abd is soft, nontender, nondistended EXT: Normal range of motion, no obvious deformity SKIN: No rashes or lesions observed on exposed skin. NEURO: Alert and oriented x 4. Cranial nerves II-XII intact. No focal sensory or strength deficits. GCS 15. (Bart West) Course <Owen Farah - Last Filed: 07/06/24 17:59> Vital Signs 07/06/24 15:38 Temperature 97.8 F Pulse Rate 68 Respiratory 18 Rate Blood Pressure 167/106 - Reevaluation(s) Reevaluation #1: 07/06/24 17:58 Medical records reviewed (Owen Farah) Reevaluation #2: 07/06/24 17:58 No recurrent seizure here in the ER patient feels persistently weak shaky cold (Owen Farah) Reevaluation #3: 07/06/24 17:58 Patient informed of results questions answered (Owen Farah) - Consultations Consultation #1: Spoke with [facility] agrees to admit this patient (Owen Farah) Medical Decision Making - EKG Data -: EKG Interpreted by Me <Bart West - Last Filed: 07/06/24 16:07> - Lab Data Result diagrams: 07/06/24 16:28 07/06/24 16:28 <Owen Farah Mick - Last Filed: 07/06/24 17:59> - Medical Decision Making Was pt. sent in by a medical professional or institution (, PA, TRUCK DISPATCHER, urgent care, hospital, or half-way...) When possible be specific @ -No Did you speak to anyone other than the patient for history (EMS, parent, family, police, friend...)? What history was obtained from this source @ -No Did you review nursing and triage notes (agree or disagree)? Why? @ -I reviewed and agree with nursing and triage notes Were old charts reviewed (outside hosp., previous admission, EMS record, old EKG, old radiological studies, urgent care reports/EKG's, half-way records)? Report findings @ -Reviewed prior medications which shows he is on multiple seizure medications.. Today's EKG with prior EKG with no obvious significant acute c hange. Differential Diagnosis (chest pain, altered mental status, abdominal pain women, abdominal pain men, vaginal bleeding, weakness, fever, dyspnea, syncope, headache, dizziness, GI bleed, back pain, seizure, CVA, palpatations, mental health, musculoskeletal)? @ -Differential Chest Pain: Stable Angina, Unstable Angina, STEMI, NSTEMI Aortic Dissection, Pneumothorax, Musculoskeletal, Esophageal Spasm GERD, Cholecystitis, Pancreatitis, Zoster, this is not meant to be an all-inclusive list. Differential Seizure: Recurrent seizure disorder, febrile seizure, alcohol withdrawal, stimulants, men ingitis, encephalitis, intercranial hemorrhage, intracranial tumor, stroke, eclampsia, thyrotoxicosis, hypocalcemia, hyponatremia, hypernatremia, hypomagnesemia, psychogenic, this is not meant to be an all-inclusive list. EKG interpreted by me (3pts min.). @ -As above X-rays interpreted by me (1pt min.). @ -Pending CT interpreted by me (1pt min.). @ -Pending U/S interpreted by me (1pt. min.). @ -None done What testing was considered but not performed or refused? (CT, X-rays, U/S, labs)? Why? @ -None What meds were considered but not given or refused? Why? @ -None Did you discuss the management of the patient with other professionals (professionals i.e. , PA, TRUCK DISPATCHER, lab, RT, psych nurse, public health social worker, architecture consultant, teacher, sustainability officer, adult protective caseworker)? Give summary @ -No Was smoking cessation discussed for >3mins.? @ -No Was critical care preformed (if so, how long)? @ -No Were there social determinants of health that impacted care today? How? (Homelessness, low income, unemployed, alcoholism, drug addiction, transportation, low edu. Level, literacy, decrease access to med. care, senior care, rehab)? @ -No Was there de-escalation of care discussed even if they declined (Discuss DNR or withdrawal of care, Hospice)? DNR status @ -No What co-morbidities impacted this encounter? (DM, HTN, Smoking, COPD, CAD, Cancer, CVA, ARF, Chemo, Hep., AIDS, mental health diagnosis, sleep apnea, morbid obesity)? @ -Seizure disorder Was patient admitted / discharged? Hospital course, mention meds given and route, prescriptions, significant lab abnormalities, going to OR and other pertinent info. @ -Patient presents emergency department complaining of multiple complaints. Claims he recently had bur holes drilled and has had with no obvious evidence of bur hole site exam. He does have a remote history of a left parietal hemorrhagic CVA. Is complaining currently of a headache. Also thinks he may have had some seizures over the last few days. Also has had an intermittent chest pain with no acute pain. Vitals within acceptable limits. Patient will be administered IV fluids, analgesia medications and we will obtain broad workup. Patient was in agreement this plan.Patient empirically given a dose of Keppra. EKG shows no signs of acute ischemia. At this time it is the end of my shift. Patient signed out to Dr. Farah Pending results of workup. Undiagnosed new problem with uncertain prognosis? @ -No Drug Therapy requiring intensive monitoring for toxicity (Heparin, Nitro, Insulin, Cardizem)? @ -No Were any procedures done? @ -No (Bart West) 58 male to the ER with weakness recurrent seizures chest pain patient at this time will be admitted for neurology evaluation regarding seizures, chest pain evaluation with mild troponin leak, persistent weakness and decreased ability to ambulate at home which she states is normal after seizures. Patient will admit for PT OT (Owen Farah) - Lab Data Lab Results 07/06/24 07/06/24 07/06/24 Range/Units 16:15 16:28 16:28 WBC 13.97 H (4.50-10.00) 10*3/uL RBC 4.87 (4.40-5.60) 10*6/uL Hgb 16.4 (13.0-17.0) g/dL Hct 45.6 (39.6-50.0) % MCV 93.6 (80.0-97.0) fL MCH 33.7 H (27.0-32.0) pg MCHC 36.0 (32.0-37.0) g/dL Plt Count 263 (140-440) 10*3/uL MPV 10.2 (9.5-12.2) fL Immature Gran % (Auto) 0.2 % Neutrophils % 80.9 % Lymphocytes % 9.5 % Monocytes % 9.0 % Eosinophils % 0.1 % Basophils % 0.3 % Immature Gran # 0.03 (0.00-0.04) 10*3/uL Neutrophils # 11.30 H (1.80-7.70) 10*3/uL Lymphocytes # 1.33 (0.90-5.00) 10*3/uL Monocytes # 1.26 H (0.20-1.00) 10*3/uL Eosinophils # 0.01 L (0.04-0.35) 10*3/uL Basophils # 0.04 (0.00-0.10) 10*3/uL PT 11.1 (10.0-12.5) sec INR 1.0 (<1.2) APTT 23.3 (22.0-30.0) sec VBG pH (7.31-7.41) VBG pCO2 (37-51) mmHg VBG HCO3 (24-28) mmol/L Sodium (137-145) mmol/L Potassium (3.5-5.1) mmol/L Chloride (98-107) mmol/L Carbon Dioxide (22-30) mmol/L Anion Gap mmol/L BUN (9-20) mg/dL Creatinine (0.66-1.25) mg/dL Est GFR (CKD-EPI)AfAm (>60 ml/min/1.73 sqM) Est GFR (CKD-EPI)NonAf (>60 ml/min/1.73 sqM) Glucose (74-99) mg/dL Plasma Lactic Acid Shahbaz (0.7-2.0) mmol/L Calcium (8.4-10.2) mg/dL Magnesium (1.6-2.3) mg/dL Total Bilirubin (0.2-1.3) mg/dL AST (17-59) U/L ALT (4-49) U/L Alkaline Phosphatase (38-126) U/L Ammonia (<30) umol/L Troponin I (0.000-0.034) ng/mL NT-Pro-B Natriuret Pep pg/mL Total Protein (6.3-8.2) g/dL Albumin (3.5-5.0) g/dL Lipase (23-300) U/L Serum Alcohol mg/dL Influenza Type A (PCR) Not Detected (Not Detectd) Influenza Type B (PCR) Not Detected (Not Detectd) RSV (PCR) Not Detected (Not Detectd) SARS-CoV-2 (PCR) Not Detected (Not Detectd) 07/06/24 07/06/24 07/06/24 Range/Units 16:28 16:28 16:28 WBC (4.50-10.00) 10*3/uL RBC (4.40-5.60) 10*6/uL Hgb (13.0-17.0) g/dL Hct (39.6-50.0) % MCV (80.0-97.0) fL MCH (27.0-32.0) pg MCHC (32.0-37.0) g/dL Plt Count (140-440) 10*3/uL MPV (9.5-12.2) fL Immature Gran % (Auto) % Neutrophils % % Lymphocytes % % Monocytes % % Eosinophils % % Basophils % % Immature Gran # (0.00-0.04) 10*3/uL Neutrophils # (1.80-7.70) 10*3/uL Lymphocytes # (0.90-5.00) 10*3/uL Monocytes # (0.20-1.00) 10*3/uL Eosinophils # (0.04-0.35) 10*3/uL Basophils # (0.00-0.10) 10*3/uL PT (10.0-12.5) sec INR (<1.2) APTT (22.0-30.0) sec VBG pH (7.31-7.41) VBG pCO2 (37-51) mmHg VBG HCO3 (24-28) mmol/L Sodium 136 L (137-145) mmol/L Potassium 4.2 (3.5-5.1) mmol/L Chloride 103 (98-107) mmol/L Carbon Dioxide 25 (22-30) mmol/L Anion Gap 8 mmol/L BUN 19 (9-20) mg/dL Creatinine 0.77 (0.66-1.25) mg/dL Est GFR (CKD-EPI)AfAm >90 (>60 ml/min/1.73 sqM) Est GFR (CKD-EPI)NonAf >90 (>60 ml/min/1.73 sqM) Glucose 111 H (74-99) mg/dL Plasma Lactic Acid Shahbaz 1.1 (0.7-2.0) mmol/L Calcium 9.6 (8.4-10.2) mg/dL Magnesium 1.8 (1.6-2.3) mg/dL Total Bilirubin 1.1 (0.2-1.3) mg/dL AST 32 (17-59) U/L ALT 20 (4-49) U/L Alkaline Phosphatase 83 (38-126) U/L Ammonia 23 (<30) umol/L Troponin I 0.013 (0.000-0.034) ng/mL NT-Pro-B Natriuret Pep 1410 pg/mL Total Protein 7.3 (6.3-8.2) g/dL Albumin 4.6 (3.5-5.0) g/dL Lipase 24 (23-300) U/L Serum Alcohol <10 mg/dL Influenza Type A (PCR) (Not Detectd) Influenza Type B (PCR) (Not Detectd) RSV (PCR) (Not Detectd) SARS-CoV-2 (PCR) (Not Detectd) 07/06/24 Range/Units 16:28 WBC (4.50-10.00) 10*3/uL RBC (4.40-5.60) 10*6/uL Hgb (13.0-17.0) g/dL Hct (39.6-50.0) % MCV (80.0-97.0) fL MCH (27.0-32.0) pg MCHC (32.0-37.0) g/dL Plt Count (140-440) 10*3/uL MPV (9.5-12.2) fL Immature Gran % (Auto) % Neutrophils % % Lymphocytes % % Monocytes % % Eosinophils % % Basophils % % Immature Gran # (0.00-0.04) 10*3/uL Neutrophils # (1.80-7.70) 10*3/uL Lymphocytes # (0.90-5.00) 10*3/uL Monocytes # (0.20-1.00) 10*3/uL Eosinophils # (0.04-0.35) 10*3/uL Basophils # (0.00-0.10) 10*3/uL PT (10.0-12.5) sec INR (<1.2) APTT (22.0-30.0) sec VBG pH 7.43 H (7.31-7.41) VBG pCO2 41 (37-51) mmHg VBG HCO3 27 (24-28) mmol/L Sodium (137-145) mmol/L Potassium (3.5-5.1) mmol/L Chloride (98-107) mmol/L Carbon Dioxide (22-30) mmol/L Anion Gap mmol/L BUN (9-20) mg/dL Creatinine (0.66-1.25) mg/dL Est GFR (CKD-EPI)AfAm (>60 ml/min/1.73 sqM) Est GFR (CKD-EPI)NonAf (>60 ml/min/1.73 sqM) Glucose (74-99) mg/dL Plasma Lactic Acid Shahbaz (0.7-2.0) mmol/L Calcium (8.4-10.2) mg/dL Magnesium (1.6-2.3) mg/dL Total Bilirubin (0.2-1.3) mg/dL AST (17-59) U/L ALT (4-49) U/L Alkaline Phosphatase (38-126) U/L Ammonia (<30) umol/L Troponin I (0.000-0.034) ng/mL NT-Pro-B Natriuret Pep pg/mL Total Protein (6.3-8.2) g/dL Albumin (3.5-5.0) g/dL Lipase (23-300) U/L Serum Alcohol mg/dL Influenza Type A (PCR) (Not Detectd) Influenza Type B (PCR) (Not Detectd) RSV (PCR) (Not Detectd) SARS-CoV-2 (PCR) (Not Detectd) - EKG Data EKG Comments: 12-lead Electrocardiogram Interpretation Note EKG was reviewed and interpreted by myself. 12-lead ECG performed at 1543 is interpreted by me as revealing normal sinus rhythm at a rate of 67 beats per minute. Left axis deviation. OK interval is 202 ms, QRS durations 129 ms, and QTc is 465 ms.. There were no ST or T wave abnormalities to suggest myocardial ischemia or injury. R wave progression across the precordium was delayed. By my interpretation this EKG is non-diagnostic for acute ischemia. (Bart West) Disposition <Bart West - Last Filed: 07/06/24 16:07> Is patient prescribed a controlled substance at d/c from ED?: No Time of Disposition: 18:00 <Owen Farah - Last Filed: 07/06/24 17:59> Clinical Impression: Recurrent headache, Weakness, Anxiety, Recurrent seizures, Atypical chest pain, Dehydration, Chest pain Disposition: ADMITTED IP TO THIS HOSP Condition: Fair Referrals: Jaziel Lockhart MD [Primary Care Provider] - 1-2 days
[2024-07-06] MEDS: SODIUM CHLORIDE 0.9% 1,000 ML IV STA (16:29)
[2024-07-06] MEDS: MORPHINE SULFATE 4 MG/ML SYRINGE IVP STA (16:30)
[2024-07-06] MEDS: levETIRAcetam IV 500 MG/5 ML VIAL IVP STA (16:31)
[2024-07-06 16:33] LABS: Basophils # (A) 0.04 10*3/uL (0.00-0.10); Basophils % (A) 0.3 %; Eosinophils # (A) 0.01 10*3/uL (0.04-0.35); Eosinophils % (A) 0.1 %; HCT 45.6 % (39.6-50.0); HGB 16.4 g/dL (13.0-17.0); Lymphocytes # (A) 1.33 10*3/uL (0.90-5.00); Lymphocytes % (A) 9.5 %; MCH 33.7 pg (27.0-32.0); MCV 93.6 fL (80.0-97.0); Mean Platelet Volume 10.2 fL (9.5-12.2); Monocytes # (A) 1.26 10*3/uL (0.20-1.00); Neutrophils % (A) 80.9 %; Platelet Count 263 10*3/uL (140-440); RBC 4.87 10*6/uL (4.40-5.60); WBC 13.97 10*3/uL (4.50-10.00)
[2024-07-06 16:36] LABS: VBG PH 7.43 (7.31-7.41)
[2024-07-06 16:43] LABS: Partial Thromboplastin Time 23.3 sec (22.0-30.0); Prothrombin Time 11.1 sec (10.0-12.5)
[2024-07-06 16:48] LABS: ALT 20 U/L (4-49); African American GFR (CKD) >90 (>60 ml/min/1.73 sqM); Alcohol <10 mg/dL; Anion Gap 8 mmol/L; Blood Urea Nitrogen 19 mg/dL (9-20); Calcium 9.6 mg/dL (8.4-10.2); Carbon Dioxide 25 mmol/L (22-30); Chloride 103 mmol/L (98-107); Glucose 111 mg/dL (74-99); Lipase 24 U/L (23-300); Non-African American GFR(CKD) >90 (>60 ml/min/1.73 sqM); Sodium 136 mmol/L (137-145); Total Bilirubin 1.1 mg/dL (0.2-1.3)
[2024-07-06 16:49] LABS: Lactic Acid, Venous 1.1 mmol/L (0.7-2.0)
[2024-07-06 16:56] LABS: Influenza A Not Detected (Not Detectd); Influenza B Not Detected (Not Detectd); RSV Not Detected (Not Detectd)
[2024-07-06 16:56] LABS: NT-Pro-B-Type Natriuretic Pept 1410 pg/mL
--- NOTE | 2024-07-06 16:57 | XR ---
EXAMINATION TYPE: XR chest 2V DATE OF EXAM: 07/06/2024 4:52 PM COMPARISON: Prior chest radiograph 04/25/2024. CLINICAL INDICATION: Male, 58 years old with history of Chest Pain; [facility] TECHNIQUE: XR chest 2V Frontal and lateral views of the chest. FINDINGS: Lungs/Pleura: There is no evidence of pleural effusion, focal consolidation, or pneumothorax. Pulmonary vascularity: Unremarkable. Heart/mediastinum: Cardiomediastinal silhouette is unremarkable. Musculoskeletal: No acute osseous pathology. Other findings: None IMPRESSION: No acute cardiopulmonary disease/process. [facility], , 07/06/2024 4:55 PM
[2024-07-06 17:01] LABS: AST 32 U/L (17-59); Albumin 4.6 g/dL (3.5-5.0); Magnesium 1.8 mg/dL (1.6-2.3); Potassium 4.2 mmol/L (3.5-5.1); Total Protein 7.3 g/dL (6.3-8.2)
[2024-07-06 17:02] LABS: Alkaline Phosphatase 83 U/L (38-126)
--- NOTE | 2024-07-06 17:17 | CT ---
EXAMINATION TYPE: CT brain wo con DATE OF EXAM: 07/06/2024 5:11 PM COMPARISON: Multiple prior CT head studies, most recently dated 04/25/2024. CLINICAL INDICATION: Male, 58 years old with history of seizure? recent nayeli holes per patient, seizu re TECHNIQUE: Brain: Axial CT images of the brain were obtained with coronal and sagittal reformats created and rev iewed. Contrast used: None. Oral contrast used: None. CT DLP: 1143.5 mGycm, Automated exposure control for dose reduction was used. FINDINGS: Brain: Extra-axial spaces: No abnormal extra-axial fluid collections. Ventricular system: Within normal limits Cerebral parenchyma: No acute intraparenchymal hemorrhage or mass effect. The werner-white junction is well differentiated. Scattered hypoattenuating areas are seen within the white matter. Redemonstrat ion several malacia changes in the left parietal lobe. Cerebellum: Unremarkable. Mass effect: No evidence of midline shift. Intracranial vasculature: unremarkable Soft tissues: Normal. Calvarium/osseous structures: No depressed skull fracture. Paranasal sinuses and mastoid air cells: Mild scattered paranasal sinus disease. Visualized orbits: Orbital contents are intact. IMPRESSION: No acute intracranial process. [facility], , 07/06/2024 5:15 PM
[2024-07-06] MEDS ORDERED: ONDANSETRON 4 MG/2 ML VIAL IVP PRN (17:55)
[2024-07-06] MEDS ORDERED: MORPHINE SULFATE 4 MG/ML SYRINGE IV PRN (17:55)
[2024-07-06] MEDS ORDERED: NALOXONE 0.4 MG/ML 1 ML VIAL IV PRN (17:55)
[2024-07-06] MEDS ORDERED: ACETAMINOPHEN TAB 325 MG TAB PO PRN (17:55)
[2024-07-06] MEDS ORDERED: LORazepam 0.5 MG TAB PO PRN (17:59)
[2024-07-06] MEDS ORDERED: LORazepam 2 MG/ML INJ IV PRN ×3 (17:59)
[2024-07-06] MEDS ORDERED: LORazepam 1 MG TAB PO PRN ×4 (17:59)
[2024-07-06] MEDS: SODIUM CHLORIDE 0.9% 1,000 ML IV SCH (18:16)
[2024-07-06] MEDS: QUEtiapine 400 MG TAB PO SCH (21:33)
[2024-07-06] MEDS: BRIVIACT 50 MG PO SCH (21:34)
[2024-07-06] MEDS: BRIVIACT 100MG TABLET PO SCH (21:34)
[2024-07-07 00:15] LABS: Basophils # (A) 0.03 10*3/uL (0.00-0.10); Basophils % (A) 0.3 %; Eosinophils # (A) 0.03 10*3/uL (0.04-0.35); Eosinophils % (A) 0.3 %; HCT 39.4 % (39.6-50.0); HGB 14.1 g/dL (13.0-17.0); Lymphocytes # (A) 1.17 10*3/uL (0.90-5.00); Lymphocytes % (A) 9.9 %; MCH 33.8 pg (27.0-32.0); MCHC 35.8 g/dL (32.0-37.0); MCV 94.5 fL (80.0-97.0); Monocytes # (A) 0.93 10*3/uL (0.20-1.00); Monocytes % (A) 7.9 %; Neutrophils # (A) 9.59 10*3/uL (1.80-7.70); Neutrophils % (A) 81.3 %; Platelet Count 214 10*3/uL (140-440); RBC 4.17 10*6/uL (4.40-5.60); RDW 12.1 % (11.5-14.5); WBC 11.78 10*3/uL (4.50-10.00)
[2024-07-07 00:26] LABS: ALT 15 U/L (4-49); AST 20 U/L (17-59); African American GFR (CKD) >90 (>60 ml/min/1.73 sqM); Albumin 3.5 g/dL (3.5-5.0); Albumin/Globulin Ratio 1.5; Alkaline Phosphatase 80 U/L (38-126); Anion Gap 6 mmol/L; Blood Urea Nitrogen 19 mg/dL (9-20); Carbon Dioxide 24 mmol/L (22-30); Chloride 105 mmol/L (98-107); Globulin 2.3 g/dL; Glucose 111 mg/dL (74-99); Magnesium 1.7 mg/dL (1.6-2.3); Non-African American GFR(CKD) >90 (>60 ml/min/1.73 sqM); Potassium 3.4 mmol/L (3.5-5.1); Sodium 135 mmol/L (137-145); Total Bilirubin 0.8 mg/dL (0.2-1.3); Total Protein 5.8 g/dL (6.3-8.2)
[2024-07-07] MEDS ORDERED: LORazepam 1 MG/0.5 ML VIAL IV PRN ×3 (00:51→00:53)
[2024-07-07] MEDS: amLODIPine 5 MG TAB PO SCH (08:13)
[2024-07-07] MEDS: ASPIRIN 81 MG PO SCH (08:13)
[2024-07-07] MEDS: MULTIVITAMINS, THERA 1 EACH TAB PO SCH (08:13)
[2024-07-07] MEDS: FOLIC ACID 1 MG TAB PO SCH (08:14)
[2024-07-07] MEDS: THIAMINE 100 MG TAB PO SCH (08:14)
[2024-07-07] MEDS: ATORVASTATIN 80 MG TAB PO SCH (08:14)
[2024-07-07 10:22] LABS: Chol/HDL Ratio 3.65 Ratio; LDL Cholesterol,Calculated 68.5 mg/dL (0.0-131.0)
--- NOTE | 2024-07-07 10:43 | P.CRDCN ---
History of Present Illness History of present illness: HISTORY OF PRESENT ILLNESS: This is a 58-year-old male with a past medical history significant for seizure disorder, CVA, hypertension and hyperlipidemia. Patient used to follow in the of cricket with Dr. Mayberry but has not been seen since October 2022. We have been asked to see the patient in consultation for chest pain. Patient examined at the bedside. Patient presented to the hospital yesterday after having a seizure yesterday. He states that he was so weak yesterday he could not get out of bed. He states that he had to call his friend Charles for help. He reports a longstanding history of seizures. He follows with a neurologist at [facility]. Patient states that he has undergone step 1 of a step to process to have an implant placed for seizures that is to be completed in September. He states that he recently had 10 holes created as part of the process for this and plan to be inserted. The patient denied having any chest pain or pressure afterwards. He states occasionally after having a seizure he will have some chest discomfort but did not have any chest pain yesterday. He denies having any chest pain since being admitted to the hospital. He denies any shortness of breath. Reports a history of hypertension and hyperlipidemia. Denies any history of diabetes. He reports a history of a CVA which is the cause of his seizures per patient. He is a current cigarette smoker. He denies any drug or alcohol use. DIAGNOSTICS: - EKG reveals sinus mechanism with no signs of acute ischemia. - Chest xray negative for acute process. - Laboratory data: WBC 11.78. Hemoglobin 14.1. Platelet count 214. Sodium 135. Potassium 3.4. BUN 19. Creatinine 0.75. Magnesium 1.7. Troponin negative x 3. proBNP 1410. - Current home cardiac medications include carvedilol 25 mg twice a day, amlodipine 5 mg daily, Lipitor 80 mg daily, aspirin 81 mg daily. - Most recent echocardiogram obtained in September 2022 revealing ejection fraction 55 to 60% with no significant valvular abnormalities - Patient underwent dobutamine stress echo in September 2022 which was negative for ischemia REVIEW OF SYSTEMS: At the time of my exam: CONSTITUTIONAL: Denies fever or chills. HEENT: Denies blurred vision, vision changes, or eye pain. Denies hemoptysis CARDIOVASCULAR: Denies chest pain. Denies orthopnea. Denies PND. Denies palpitations RESPIRATORY: Denies shortness of breath. GASTROINTESTINAL: Denies abdominal pain. Denies nausea or vomiting. HEMATOLOGIC: Denies bleeding disorders. GENITOURINARY: Denies any blood in urine. SKIN: Denies pruitis. Denies rash. PHYSICAL EXAM: VITAL SIGNS: Reviewed. GENERAL: Well-developed in no acute distress. HEENT: Head is normocephalic. Pupils are equal, round. Sclerae anicteric. Mucous membranes of the mouth are moist. Neck supple. No JVD or thyromegaly LUNGS: Respirations even and unlabored. Lungs essentially clear to auscultation bilaterally. HEART: Regular rate and rhythm. S1 and S2 heard. ABDOMEN: Soft. Nondistended. Nontender. EXTREMITIES: Normal range of motion. No clubbing or cyanosis. Peripheral pulses intact. No lower extremity edema NEUROLOGIC: Awake and alert. Oriented x 3. ASSESSMENT: Seizure with subsequent generalized weakness Chest pain, ruled out, patient denies having any chest pain or pressure History of seizure disorder History of CVA Hypertension Hyperlipidemia Nicotine dependence PLAN: An acute coronary event has been ruled out Obtain 2D echo to assess cardiac structure and function Resume home cardiac medications Await further input from neurology No plans for stress testing or cardiac catheterization at this time Further recommendations pending patient course Nurse practitioner note has been reviewed by physician. Signing provider agrees with the documented findings, assessment, and plan of care documented by [employer] as a scribe. Past Medical History Past Medical History: CVA/TIA, GERD/Reflux, Hyperlipidemia, Hypertension, Pneumonia, Seizure Disorder Additional Past Medical History / Comment(s): L hemorrhagic stroke-R sided weakness and has had occasions of increased irritability/agitation/isolation, multiple mental health unit admissions, uncontrolled seizures, L pneumothorax with chest tube, migraines History of Any Multi-Drug Resistant Organisms: None Reported Past Surgical History: No Surgical Hx Reported Additional Past Surgical History / Comment(s): COLONOSCOPY w/ POLYPS REMOVED- NEG, bilateral cataract removal, R testicular surgery as a child Past Anesthesia/Blood Transfusion Reactions: No Reported Reaction Additional Past Anesthesia/Blood Transfusion Reaction / Comment(s): Pt has never recieved blood. Past Psychological History: Anxiety, Bipolar, Depression, Panic Disorder Additional Psychological History / Comment(s): previous mental health admissions Smoking Status: Current every day smoker Past Alcohol Use History: None Reported Additional Past Alcohol Use History / Comment(s): past hx of etoh abuse, last drink about 10 yrs ago Past Drug Use History: None Reported Additional Drug Use History / Comment(s): Pt has hx of polysubstance abuse per PMR-Adderall/xanax/flexeril/baclofen. Pt's friend states he has polysubstance abuse with prescription meds/not always his own prescriptions. - Past Family History Father Family Medical History: Cancer, Hyperlipidemia, Hypertension, Prostate Disorder Additional Family Medical History / Comment(s): PROSTATE CA Mother Family Medical History: Osteoarthritis (OA) Additional Family Medical History / Comment(s): MOM IS 71 Medications and Allergies Home Medications Medication Instructions Recorded Confirmed Type Famotidine [Pepcid] 20 mg PO BID #60 tab 11/21/18 07/06/24 Rx carvediloL [Coreg] 25 mg PO BID #60 tablet 07/13/21 07/06/24 Rx Aspirin EC [Ecotrin Low Dose] 81 mg PO DAILY 09/04/21 07/06/24 History Atorvastatin [Lipitor] 80 mg PO DAILY 11/07/21 07/06/24 History Tamsulosin [Flomax] 0.4 mg PO DAILY 02/20/22 07/06/24 History amLODIPine [Norvasc] 5 mg PO DAILY 02/20/22 07/06/24 History lamoTRIgine [LaMICtal] 200 mg PO BID 09/18/22 07/06/24 History Cholecalciferol [Vitamin D3 (25 50 mcg PO DAILY 06/20/23 07/06/24 History Mcg = 1000 Iu)] Brivaracetam [Briviact] 50 mg PO BID 04/26/24 07/06/24 History Brivaracetam [Briviact] 100 mg PO BID 04/26/24 07/06/24 History Midazolam [Nayzilam] 5 mg NASAL DIRECTED PRN 04/26/24 07/06/24 History QUEtiapine [SEROquel] 400 mg PO HS 04/26/24 07/06/24 History lamoTRIgine [LaMICtal] 50 mg PO BID 04/26/24 07/06/24 History Baclofen [Lioresal] 20 mg PO TID 07/06/24 07/06/24 History Nitroglycerin Sl Tabs [Nitrostat] 0.4 mg SL Q5M PRN 07/06/24 07/06/24 History Allergies Allergy/AdvReac Type Severity Reaction Status Date / Time No Known Allergies Allergy Verified 07/06/24 17:52 Physical Exam Vitals: Vital Signs Temp Pulse Pulse Resp BP BP Pulse Ox 07/07/24 08:10 96 07/07/24 07:00 97.3 F L 55 L 16 143/78 93 L 07/07/24 00:55 98.4 F 63 17 125/77 93 L 07/06/24 21:18 98.3 F 65 17 157/97 96 07/06/24 20:15 97.9 F 71 18 152/68 99 07/06/24 18:28 64 18 147/75 97 07/06/24 15:38 97.8 F 68 18 167/106 Intake and Output 07/06/24 07/07/24 07/07/24 22:59 06:59 14:59 Output Total 0 Balance 0 Output: Urine 0 Other: Voiding Method Urinal Urinal # Voids 0 0 Weight 81.647 kg Results 07/06/24 23:50 07/06/24 23:50 Cardiac Enzymes 07/06/24 07/06/24 07/06/24 Range/Units 16:28 16:28 20:07 AST 32 (17-59) U/L Troponin I 0.013 <0.012 (0.000-0.034) ng/mL 07/06/24 07/06/24 Range/Units 23:40 23:50 AST 20 (17-59) U/L Troponin I <0.012 (0.000-0.034) ng/mL Coagulation 07/06/24 Range/Units 16:28 PT 11.1 (10.0-12.5) sec APTT 23.3 (22.0-30.0) sec Lipids 07/07/24 Range/Units 08:02 Triglycerides 122.00 (0.00-149.00) mg/dL Cholesterol 128.00 (0.00-200.00) mg/dL HDL Cholesterol 35.10 L (40.00-60.00) mg/dL Cholesterol/HDL Ratio 3.65 Ratio CBC 07/06/24 07/06/24 Range/Units 16:28 23:50 WBC 13.97 H 11.78 H (4.50-10.00) 10*3/uL RBC 4.87 4.17 L (4.40-5.60) 10*6/uL Hgb 16.4 14.1 (13.0-17.0) g/dL Hct 45.6 39.4 L (39.6-50.0) % Plt Count 263 214 (140-440) 10*3/uL Comprehensive Metabolic Panel 07/06/24 07/06/24 Range/Units 16:28 23:50 Sodium 136 L 135 L (137-145) mmol/L Potassium 4.2 3.4 L (3.5-5.1) mmol/L Chloride 103 105 (98-107) mmol/L Carbon Dioxide 25 24 (22-30) mmol/L BUN 19 19 (9-20) mg/dL Creatinine 0.77 0.75 (0.66-1.25) mg/dL Glucose 111 H 111 H (74-99) mg/dL Calcium 9.6 9.0 (8.4-10.2) mg/dL AST 32 20 (17-59) U/L ALT 20 15 (4-49) U/L Alkaline Phosphatase 83 80 (38-126) U/L Total Protein 7.3 5.8 L (6.3-8.2) g/dL Albumin 4.6 3.5 (3.5-5.0) g/dL Current Medications Generic Name Dose Route Start Last Admin Trade Name Freq PRN Reason Stop Dose Admin Acetaminophen 650 mg 07/06/24 17:55 Acetaminophen Tab 325 Mg Tab PO Q6HR PRN Mild Pain or Fever > 100.5 Amlodipine Besylate 5 mg 07/07/24 09:00 07/07/24 08:13 Amlodipine 5 Mg Tab PO 5 mg DAILY PRISCILA Administration Aspirin 81 mg 07/07/24 09:00 07/07/24 08:13 Aspirin 81 Mg PO 81 mg DAILY PRISCILA Administration Atorvastatin Calcium 80 mg 07/07/24 09:00 07/07/24 08:14 Atorvastatin 80 Mg Tab PO 80 mg DAILY PRISCILA Administration Carvedilol 25 mg 07/07/24 09:00 Carvedilol 12.5 Mg Tab PO BID-W/MEALS [facility] Folic Acid 1 mg 07/07/24 09:00 07/07/24 08:14 Folic Acid 1 Mg Tab PO 1 mg DAILY PRISCILA Administration Sodium Chloride 1,000 mls @ 75 mls/hr 07/06/24 18:00 07/07/24 08:17 Saline 0.9% IV Not Given .[id number] PRISCILA Lorazepam 2 mg 07/06/24 17:59 Lorazepam 1 Mg Tab PO Q3HR PRN Ciwa 8 To 9 Lorazepam 2 mg 07/06/24 17:59 Lorazepam 1 Mg Tab PO Q2HR PRN Ciwa 10 or greater Lorazepam 1 mg 07/06/24 17:59 Lorazepam 1 Mg Tab PO Q4HR PRN Ciwa 6 To 7 Lorazepam 0.5 mg 07/06/24 17:59 Lorazepam 0.5 Mg Tab PO Q4HR PRN Ciwa 4 To 5 Lorazepam 1 mg 07/06/24 17:59 Lorazepam 1 Mg Tab PO Q1HR PRN Alcohol Withdrawal Lorazepam 2 mg 07/07/24 00:51 Lorazepam 1 Mg/0.5 Ml Vial IV 08/06/24 00:50 Q10M PRN CIWA 16 or higher Lorazepam 1 mg 07/07/24 00:52 Lorazepam 1 Mg/0.5 Ml Vial IV Q2HR PRN CIWA 8 or 9 Lorazepam 1 mg 07/07/24 00:53 Lorazepam 1 Mg/0.5 Ml Vial IV Q1HR PRN CIWA 10 to 15 Morphine Sulfate 4 mg 07/06/24 17:55 Morphine Sulfate 4 Mg/Ml Syringe IV Q4HR PRN Severe Pain (Scale 7 to 10) Multivitamins 1 each 07/07/24 09:00 07/07/24 08:13 Multivitamins, Thera 1 Each Tab PO 1 each DAILY PRISCILA Administration Naloxone HCl 0.2 mg 07/06/24 17:55 Naloxone 0.4 Mg/Ml 1 Ml Vial IV Q2M PRN Opioid Reversal Briviact 50mg Tablet 1 each 07/06/24 21:15 07/07/24 08:23 PO Not Given BID PRISCILA Briviact 100mg 1 each 07/06/24 21:15 07/07/24 08:23 Tablet PO Not Given BID PRISCILA Ondansetron HCl 4 mg 07/06/24 17:55 Ondansetron 4 Mg/2 Ml Vial IVP Q8HR PRN Nausea And Vomiting Quetiapine Fumarate 400 mg 07/06/24 21:15 07/06/24 21:33 Quetiapine 400 Mg Tab PO 400 mg HS PRISCILA Administration Thiamine HCl 100 mg 07/07/24 09:00 07/07/24 08:14 Thiamine 100 Mg Tab PO 100 mg DAILY PRISCILA Administration Intake and Output 07/06/24 07/07/24 07/07/24 22:59 06:59 14:59 Output Total 0 Balance 0 Output: Urine 0 Other: Voiding Method Urinal Urinal # Voids 0 0 Weight 81.647 kg 07/06/24 23:50 07/06/24 23:50
[2024-07-07] MEDS: carvediloL 12.5 MG TAB PO SCH (10:47)
[2024-07-07 11:41] LABS: Appearance,Urine Clear (Clear); Bilirubin,Urine Negative (Negative); Blood,Urine Negative (Negative); Color,Urine Yellow; Glucose,Urine (UA) Negative (Negative); Ketones,Urine Trace (Negative); Leukocyte Esterase,Urine Negative (Negative); Nitrite,Urine Negative (Negative); PH, Urine 6.5 (5.0-8.0); Protein,Urine Trace (Negative); Specific Gravity,Urine 1.028 (1.001-1.035)
--- NOTE | 2024-07-07 12:15 | CA ---
Transthoracic Echo Report Name: Robert Jeronimo Age: 58 Gender: M : 1965 Exam Date: 07/07/2024 09:56 Exam Location: [facility] Ht (in): 67 Wt (lb): 180 Ordering Physician: Shila Patel Attending/Referring Phys: [id number], Jorge Topology Teacher Hiwot Brown, AALIYAH Procedure CPT: Indications: hx of CP Cardiac Hx: Technical Quality: Fair Contrast 1: Total Dose (mL): Contrast 2: Total Dose (mL): MEASUREMENTS (Male / Female) Normal Values 2D ECHO LV Diastolic Diameter PLAX 4.4 cm 4.2 - 5.9 / 3.9 - 5.3 cm LV Systolic Diameter PLAX 3.0 cm IVS Diastolic Thickness 1.2 cm 0.6 - 1.0 / 0.6 - 0.9 cm LVPW Diastolic Thickness 1.7 cm 0.6 - 1.0 / 0.6 - 0.9 cm LV Relative Wall Thickness 0.7 RV Internal Dim ED PLAX 2.8 cm LA Systolic Diameter LX 3.5 cm 3.0 - 4.0 / 2.7 - 3.8 cm LV Diastolic Volume MOD BP 50.7 cm??? 67 - 155 / 56 - 104 cm??? LV Systolic Volume MOD BP 18.1 cm??? 22 - 58 / 19 - 49 cm??? LV Ejection Fraction MOD BP 64.3 % >= 55 % LV Cardiac Index MOD BP 887.4 cm???/min???m??? LV Diastolic Volume MOD 4C 47.4 cm??? LV Systolic Volume MOD 4C 13.8 cm??? LV Ejection Fraction MOD 4C 70.8 % LV Cardiac Index MOD 4C 914.6 cm???/min???m??? LV Diastolic Length 4C 7.3 cm LV Systolic Length 4C 6.0 cm LV Diastolic Volume MOD 2C 53.6 cm??? LV Systolic Volume MOD 2C 22.4 cm??? LV Ejection Fraction MOD 2C 58.2 % LV Cardiac Index MOD 2C 848.4 cm???/min???m??? LV Diastolic Length 2C 7.1 cm LV Systolic Length 2C 6.4 cm LA Volume 37.1 cm??? 18 - 58 / 22 - 52 cm??? LA Volume Index 18.7 cm???/m??? 16 - 28 cm???/m??? M-MODE Aortic Root Diameter MM 3.6 cm LA Systolic Diameter MM 3.3 cm LA Ao Ratio MM 0.9 AV Cusp Separation MM 2.3 cm DOPPLER MV Area PHT 2.0 cm??? Mitral E Point Velocity 73.4 cm/s Mitral A Point Velocity 85.3 cm/s Mitral E to A Ratio 0.9 MV Deceleration Time 373.4 ms FINDINGS Left Ventricle Left ventricular ejection fraction is estimated at 55-60 %. Normal left ventricular systolic function with no obvious regional wall motion abnormalities. Left ventricular cavity size normal.Moderately increased left ventricular wall thickness. Right Ventricle Right ventricular systolic pressure within normal limits. Unable to estimate the right ventricular systolic pressure. Right Atrium Normal right atrial size. Left Atrium Normal left atrial size. Mitral Valve Structurally normal mitral valve. Trace mitral regurgitation. No mitral stenosis. Aortic Valve Trileaflet aortic valve. No aortic valve stenosis or regurgitation. Tricuspid Valve Structurally normal tricuspid valve. Trace tricuspid regurgitation. No tricuspid stenosis. Pulmonic Valve Structurally normal pulmonic valve. No pulmonic stenosis. Pericardium No pericardial or pleural effusion. Aorta Normal size aortic root and proximal ascending aorta. CONCLUSIONS 1. Normal left ventricular size and systolic function 2. Trace mitral and tricuspid regurgitation Previewed by: Dr. Vamshi Cisneros MD (Electronically Signed) Final Date: 07 July 2024 12:14
--- NOTE | 2024-07-07 12:19 | P.CNNES ---
History of Present Illness Consult date: 07/07/24 Requesting physician: Owen Farah Reason for Consult: seizure History of Present Illness: This is a 58-year-old gentleman with a history of stroke epilepsy, medically intractable, left parietal hemorrhage stroke in 2015 with residual right hemiparesis, tobacco use, hypertension, depression emergency department because of seizure-like activity. Patient stated that yesterday he had is friends come over and the patient could not get out of bed or walk and does is one of his hallmarks of his seizure-like activity in the past. He denies any urinary incontinence, bowel incontinence or tongue bite. His episode lasted 4 hours and he feels today he is improving but not back to baseline. He is on Lamictal 250 mg twice daily as well as Briviact 150 mg twice daily and he states that he is compliant taking the medication to his knowledge. He follows up with [facility] neurology team and he is getting a detailed workup regarding his epilepsy. That in the past he was on so many medication and that caused him to be sleepy/drowsy and does not recall medications. Some of the workup during this hospital visit consisted of: I reviewed the lab work-up. CT head is reported as no acute intracranial process. Review of Systems As per HPI. Past Medical History Past Medical History: CVA/TIA, GERD/Reflux, Hyperlipidemia, Hypertension, Pneumonia, Seizure Disorder Additional Past Medical History / Comment(s): L hemorrhagic stroke-R sided weakness and has had occasions of increased irritability/agitation/isolation, mu ltiple mental health unit admissions, uncontrolled seizures, L pneumothorax with chest tube, migraines History of Any Multi-Drug Resistant Organisms: None Reported Past Surgical History: No Surgical Hx Reported Additional Past Surgical History / Comment(s): COLONOSCOPY w/ POLYPS REMOVED- NEG, bilateral cataract removal, R testicular surgery as a child Past Anesthesia/Blood Transfusion Reactions: No Reported Reaction Additional Past Anesthesia/Blood Transfusion Reaction / Comment(s): Pt has never recieved blood. Past Psychological History: Anxiety, Bipolar, Depression, Panic Disorder Additional Psychological History / Comment(s): previous mental health admissions Smoking Status: Current every day smoker Past Alcohol Use History: None Reported Additional Past Alcohol Use History / Comment(s): past hx of etoh abuse, last drink about 10 yrs ago Past Drug Use History: None Reported Additional Drug Use History / Comment(s): Pt has hx of polysubstance abuse per PMR-Adderall/xanax/flexeril/baclofen. Pt's friend states he has polysubstance abuse with prescription meds/not always his own prescriptions. - Past Family History Father Family Medical History: Cancer, Hyperlipidemia, Hypertension, Prostate Disorder Additional Family Medical History / Comment(s): PROSTATE CA Mother Family Medical History: Osteoarthritis (OA) Additional Family Medical History / Comment(s): MOM IS 71 Medications and Allergies Home Medications Medication Instructions Recorded Confirmed Type Famotidine [Pepcid] 20 mg PO BID #60 tab 11/21/18 07/06/24 Rx carvediloL [Coreg] 25 mg PO BID #60 tablet 07/13/21 07/06/24 Rx Aspirin EC [Ecotrin Low Dose] 81 mg PO DAILY 09/04/21 07/06/24 History Atorvastatin [Lipitor] 80 mg PO DAILY 11/07/21 07/06/24 History Tamsulosin [Flomax] 0.4 mg PO DAILY 02/20/22 07/06/24 History amLODIPine [Norvasc] 5 mg PO DAILY 02/20/22 07/06/24 History lamoTRIgine [LaMICtal] 200 mg PO BID 09/18/22 07/06/24 History Cholecalciferol [Vitamin D3 (25 50 mcg PO DAILY 06/20/23 07/06/24 History Mcg = 1000 Iu)] Brivaracetam [Briviact] 50 mg PO BID 04/26/24 07/06/24 History Brivaracetam [Briviact] 100 mg PO BID 04/26/24 07/06/24 History Midazolam [Nayzilam] 5 mg NASAL DIRECTED PRN 04/26/24 07/06/24 History QUEtiapine [SEROquel] 400 mg PO HS 04/26/24 07/06/24 History lamoTRIgine [LaMICtal] 50 mg PO BID 04/26/24 07/06/24 History Baclofen [Lioresal] 20 mg PO TID 07/06/24 07/06/24 History Nitroglycerin Sl Tabs [Nitrostat] 0.4 mg SL Q5M PRN 07/06/24 07/06/24 History Allergies Allergy/AdvReac Type Severity Reaction Status Date / Time No Known Allergies Allergy Verified 07/06/24 17:52 Physical Examination - Vital Signs Vital Signs: Vital Signs Temp Pulse Pulse Resp BP BP Pulse Ox 07/07/24 08:10 96 07/07/24 07:00 97.3 F L 55 L 16 143/78 93 L 07/07/24 00:55 98.4 F 63 17 125/77 93 L 07/06/24 21:18 98.3 F 65 17 157/97 96 07/06/24 20:15 97.9 F 71 18 152/68 99 07/06/24 18:28 64 18 147/75 97 07/06/24 15:38 97.8 F 68 18 167/106 Intake and Output 07/06/24 07/07/24 07/07/24 22:59 06:59 14:59 Output Total 0 175 Balance 0 -175 Output: Urine 0 175 Other: Voiding Method Urinal Urinal # Voids 0 0 Weight 81.647 kg General: Lying in bed and is not in acute distress. Neuro: The patient is awake alert oriented to self place and time. Patient appears minimally slow following commands and has subtle stuttering. Is following simple commands. No aphasia no neglect. The pupils are round about 3 mm and reactive to light. Visual callejas are full to confrontation throughout. Extraocular moods intact no nystagmus. No facial weakness. No dysarthria. Tongue is midline moves [id number] with any difficulty and there is no evidence of any tongue bite. Motor: Is lifting all extremities above gravity and no significant weakness. Sensation: Normal to touch throughout. Results - Laboratory Findings CBC and BMP: 07/06/24 23:50 07/06/24 23:50 Abnormal Lab Findings: Abnormal Labs 07/06/24 07/06/24 07/06/24 16:28 16:28 16:28 WBC 13.97 H RBC Hct MCH 33.7 H Neutrophils # 11.30 H Monocytes # 1.26 H Eosinophils # 0.01 L VBG pH 7.43 H Sodium 136 L Potassium Glucose 111 H Total Protein HDL Cholesterol Urine Protein Urine Ketones 07/06/24 07/06/24 07/07/24 23:50 23:50 08:02 WBC 11.78 H RBC 4.17 L Hct 39.4 L MCH 33.8 H Neutrophils # 9.59 H Monocytes # Eosinophils # 0.03 L VBG pH Sodium 135 L Potassium 3.4 L Glucose 111 H Total Protein 5.8 L HDL Cholesterol 35.10 L Urine Protein Urine Ketones 07/07/24 11:33 WBC RBC Hct MCH Neutrophils # Monocytes # Eosinophils # VBG pH Sodium Potassium Glucose Total Protein HDL Cholesterol Urine Protein Trace H Urine Ketones Trace H Assessment and Plan Assessment: * Likely Breakthrough seizure * History of Post stroke epilepsy, medically intractable. Is on Briviact 150mg bid and Lamictal 250mg bid. * History of left parietal hemorrhagic stroke in 2014 with mild residual right hemiparesis. * History of tobacco use * Hypertension * Depression Plan: Patient is resumed on his home antiseizure medication of Lamictal 250 mg twice a day and Briviact 150 mg twice daily. He does not want have his medication be increased or modified or be on any additional antiseizure medications since in past caused him to be drowsy/sleepy. I will defer the modification of his antiseizure medication to his outpatient neurology team, over at [facility]. Seizure precautions seizure pads Lamictal level is ordered and pending Per [place] DMV to avoid driving for 6 months until seizure-free, avoid height s, avoid swimming unassisted or using heavy machinery Recommend the patient to follow-up with his outpatient neurology team within 2 to 3-week PT and OT are consulted Cardiology team is consulted. If by tomorrow the patient is doing much better and no further seizure, then the patient is cleared from a neurologic perspective. Thank you for the consultation Time with Patient: Greater than 30
--- NOTE | 2024-07-07 13:10 | P.HPIM ---
History of Present Illness 58-year-old male with history of epilepsy hemorrhagic stroke in 2015 and some residual right-sided hemiparesis came in as patient was not able to get out of the bed quite lethargic which as per them a seizure for the patient. Patient takes Lamictal 2 to 3 mg twice a day and briviact 150 mg twice a day. Lamictal levels are being obtained. Neurology evaluated the patient. Patient is getting extensive evaluation as an outpatient at [facility]'s and as per the patient patient is even scheduled for surgery for epilepsy. Neurology is recommending monitoring while overnight and not planning on increasing or changing any of the doses of his medications or adding any medications. Patient was also complaining of chest pain because of which cardiology evaluate the patient was were negative EKG did not show any acute ST or T wave changes. Patient was cleared from cardiology perspective to be discharged. CT of the hea d did not show any acute intracranial abnormality.-Possible breakthrough seizure REVIEW OF SYSTEMS: All other systems are negative except those mentioned in the HPI PHYSICAL EXAMINATION: GENERAL: The patient is alert and oriented x3, not in any acute distress. Well developed, well nourished. HEENT: Pupils are round and equally reacting to light. EOMI. No scleral icterus. No conjunctival pallor. Normocephalic, atraumatic. No pharyngeal erythema. No thyromegaly. CARDIOVASCULAR: S1 and S2 present. No murmurs, rubs, or gallops. PULMONARY: Chest is clear to auscultation, no wheezing or crackles. ABDOMEN: Soft, nontender, nondistended, normoactive bowel sounds. No palpable organomegaly. MUSCULOSKELETAL: No joint swelling or deformity. EXTREMITIES: No cyanosis, clubbing, or pedal edema. NEUROLOGICAL: Gross neurological examination did not reveal any new focal deficits. SKIN: No rashes. Assessment and plan Possible breakthrough seizures: Neurology evaluated the patient no plan to change the dose of Lamictal or any of his home medications. Patient will be monitored overnight if patient does not have any seizures will be discharged tomorrow Lamictal level is being obtained. -Chest pain pain rule out acute coronary syndromes, cleared by cardiology to be discharged. Patient did get an echocardiogram which did not show any significant pathology -Left parietal hemorrhagic stroke in 2015 with residual right-sided hemiparesis - Depression - Hypertension DVT prophylaxis: Lovenox Past Medical History Past Medical History: CVA/TIA, GERD/Reflux, Hyperlipidemia, Hypertension, Pneumonia, Seizure Disorder Additional Past Medical History / Comment(s): L hemorrhagic stroke-R sided weakness and has had occasions of increased irritability/agitation/isolation, multiple mental health unit admissions, uncontrolled seizures, L pneumothorax with chest tube, migraines History of Any Multi-Drug Resistant Organisms: None Reported Past Surgical History: No Surgical Hx Reported Additional Past Surgical History / Comment(s): COLONOSCOPY w/ POLYPS REMOVED- NEG, bilateral cataract removal, R testicular surgery as a child Past Anesthesia/Blood Transfusion Reactions: No Reported Reaction Additional Past Anesthesia/Blood Transfusion Reaction / Comment(s): Pt has never recieved blood. Past Psychological History: Anxiety, Bipolar, Depression, Panic Disorder Additional Psychological History / Comment(s): previous mental health admissions Smoking Status: Current every day smoker Past Alcohol Use History: None Reported Additional Past Alcohol Use History / Comment(s): past hx of etoh abuse, last drink about 10 yrs ago Past Drug Use History: None Reported Additional Drug Use History / Comment(s): Pt has hx of polysubstance abuse per PMR-Adderall/xanax/flexeril/baclofen. Pt's friend states he has polysubstance abuse with prescription meds/not always his own prescriptions. - Past Family History Father Family Medical History: Cancer, Hyperlipidemia, Hypertension, Prostate Disorder Additional Family Medical History / Comment(s): PROSTATE CA Mother Family Medical History: Osteoarthritis (OA) Additional Family Medical History / Comment(s): MOM IS 71 Medications and Allergies Home Medications Medication Instructions Recorded Confirmed Type Famotidine [Pepcid] 20 mg PO BID #60 tab 11/21/18 07/06/24 Rx carvediloL [Coreg] 25 mg PO BID #60 tablet 07/13/21 07/06/24 Rx Aspirin EC [Ecotrin Low Dose] 81 mg PO DAILY 09/04/21 07/06/24 History Atorvastatin [Lipitor] 80 mg PO DAILY 11/07/21 07/06/24 History Tamsulosin [Flomax] 0.4 mg PO DAILY 02/20/22 07/06/24 History amLODIPine [Norvasc] 5 mg PO DAILY 02/20/22 07/06/24 History lamoTRIgine [LaMICtal] 200 mg PO BID 09/18/22 07/06/24 History Cholecalciferol [Vitamin D3 (25 50 mcg PO DAILY 06/20/23 07/06/24 History Mcg = 1000 Iu)] Brivaracetam [Briviact] 50 mg PO BID 04/26/24 07/06/24 History Brivaracetam [Briviact] 100 mg PO BID 04/26/24 07/06/24 History Midazolam [Nayzilam] 5 mg NASAL DIRECTED PRN 04/26/24 07/06/24 History QUEtiapine [SEROquel] 400 mg PO HS 04/26/24 07/06/24 History lamoTRIgine [LaMICtal] 50 mg PO BID 04/26/24 07/06/24 History Baclofen [Lioresal] 20 mg PO TID 07/06/24 07/06/24 History Nitroglycerin Sl Tabs [Nitrostat] 0.4 mg SL Q5M PRN 07/06/24 07/06/24 History Allergies Allergy/AdvReac Type Severity Reaction Status Date / Time No Known Allergies Allergy Verified 07/06/24 17:52 Physical Exam Vitals: Vital Signs Temp Pulse Pulse Resp BP BP Pulse Ox 07/07/24 08:10 96 07/07/24 07:00 97.3 F L 55 L 16 143/78 93 L 07/07/24 00:55 98.4 F 63 17 125/77 93 L 07/06/24 21:18 98.3 F 65 17 157/97 96 07/06/24 20:15 97.9 F 71 18 152/68 99 07/06/24 18:28 64 18 147/75 97 07/06/24 15:38 97.8 F 68 18 167/106 Intake and Output 07/06/24 07/07/24 07/07/24 22:59 06:59 14:59 Output Total 0 175 Balance 0 -175 Output: Urine 0 175 Other: Voiding Method Urinal Urinal # Voids 0 0 Weight 81.647 kg Results CBC & Chem 7: 07/06/24 23:50 07/06/24 23:50 Labs: Abnormal Lab Results - Last 24 Hours (Table) 07/06/24 07/06/24 07/06/24 Range/Units 16:28 16:28 16:28 WBC 13.97 H (4.50-10.00) 10*3/uL RBC (4.40-5.60) 10*6/uL Hct (39.6-50.0) % MCH 33.7 H (27.0-32.0) pg Neutrophils # 11.30 H (1.80-7.70) 10*3/uL Monocytes # 1.26 H (0.20-1.00) 10*3/uL Eosinophils # 0.01 L (0.04-0.35) 10*3/uL VBG pH 7.43 H (7.31-7.41) Sodium 136 L (137-145) mmol/L Potassium (3.5-5.1) mmol/L Glucose 111 H (74-99) mg/dL Total Protein (6.3-8.2) g/dL HDL Cholesterol (40.00-60.00) mg/dL Urine Protein (Negative) Urine Ketones (Negative) 07/06/24 07/06/24 07/07/24 Range/Units 23:50 23:50 08:02 WBC 11.78 H (4.50-10.00) 10*3/uL RBC 4.17 L (4.40-5.60) 10*6/uL Hct 39.4 L (39.6-50.0) % MCH 33.8 H (27.0-32.0) pg Neutrophils # 9.59 H (1.80-7.70) 10*3/uL Monocytes # (0.20-1.00) 10*3/uL Eosinophils # 0.03 L (0.04-0.35) 10*3/uL VBG pH (7.31-7.41) Sodium 135 L (137-145) mmol/L Potassium 3.4 L (3.5-5.1) mmol/L Glucose 111 H (74-99) mg/dL Total Protein 5.8 L (6.3-8.2) g/dL HDL Cholesterol 35.10 L (40.00-60.00) mg/dL Urine Protein (Negative) Urine Ketones (Negative) 07/07/24 Range/Units 11:33 WBC (4.50-10.00) 10*3/uL RBC (4.40-5.60) 10*6/uL Hct (39.6-50.0) % MCH (27.0-32.0) pg Neutrophils # (1.80-7.70) 10*3/uL Monocytes # (0.20-1.00) 10*3/uL Eosinophils # (0.04-0.35) 10*3/uL VBG pH (7.31-7.41) Sodium (137-145) mmol/L Potassium (3.5-5.1) mmol/L Glucose (74-99) mg/dL Total Protein (6.3-8.2) g/dL HDL Cholesterol (40.00-60.00) mg/dL Urine Protein Trace H (Negative) Urine Ketones Trace H (Negative) Thrombosis Risk Factor Assmnt - Choose All That Apply Each Factor Represents 1 point: Age 41-60 years Thrombosis Risk Factor Assessment Total Risk Factor Score: 1 Thrombosis Risk Factor Assessment Level: Low Risk
[2024-07-08 07:32] VITALS: BP 129/82; PULSE 55; RESP 18; TEMP 97.9
[2024-07-08] MEDS: ENOXAPARIN 40 MG/0.4 ML SYRINGE SQ SCH (08:37)
--- NOTE | 2024-07-08 12:12 | P.PN ---
Subjective HISTORY OF PRESENT ILLNESS: This is a 58-year-old male with a past medical history significant for seizure disorder, CVA, hypertension and hyperlipidemia. Patient used to follow in the office with Dr. Mayberry but has not been seen since October 2022. We have been asked to see the patient in consultation for chest pain. Patient examined at the bedside. Patient presented to the hospital yesterday after having a seizure yesterday. He states that he was so weak yesterday he could not get out of bed. He states that he had to call his friend Charles for help. He reports a longstanding history of seizures. He follows with a neurologist at [facility]. Patient states that he has undergone step 1 of a step to process to have an implant placed for seizures that is to be completed in September. He states that he recently had 10 holes created as part of the process for this and plan to be inserted. The patient denied having any chest pain or pressure afterwards. He states occasionally after having a seizure he will have some chest discomfort but did not have any chest pain yesterday. He denies having any chest pain since being admitted to the hospital. He denies any shortness of breath. Reports a history of hypertension and hyperlipidemia. Denies any history of diabetes. He reports a history of a CVA which is the cause of his seizures per patient. He is a current cigarette smoker. He denies any drug or alcohol use. DIAGNOSTICS: - EKG reveals sinus mechanism with no signs of acute ischemia. - Chest xray negative for acute process. - Laboratory data: WBC 11.78. Hemoglobin 14.1. Platelet count 214. Sodium 135. Potassium 3.4. BUN 19. Creatinine 0.75. Magnesium 1.7. Troponin negative x 3. proBNP 1410. - Current home cardiac medications include carvedilol 25 mg twice a day, amlodipine 5 mg daily, Lipitor 80 mg daily, aspirin 81 mg daily. - Most recent echocardiogram obtained in September 2022 revealing ejection fraction 55 to 60% with no significant valvular abnormalities - Patient underwent dobutamine stress echo in September 2022 which was negative for ischemia 07/08/2024 Patient examined this morning at bedside. Patient currently denies any chest pain or pressure. He denies any shortness of breath. Echocardiogram completed revealing ejection fraction 55 to 60%, trace MR, trace TR. PHYSICAL EXAM: VITAL SIGNS: Reviewed. GENERAL: Well-developed in no acute distress. HEENT: Head is normocephalic. Pupils are equal, round. Sclerae anicteric. Mucous membranes of the mouth are moist. Neck supple. No JVD or thyromegaly LUNGS: Respirations even and unlabored. Lungs essentially clear to auscultation bilaterally. HEART: Regular rate and rhythm. S1 and S2 heard. ABDOMEN: Soft. Nondistended. Nontender. EXTREMITIES: Normal range of motion. No clubbing or cyanosis. Peripheral pulses intact. No lower extremity edema NEUROLOGIC: Awake and alert. Oriented x 3. ASSESSMENT: Seizure with subsequent generalized weakness Chest pain, ruled out, patient denies having any chest pain or pressure History of seizure disorder History of CVA Hypertension Hyperlipidemia Nicotine dependence PLAN: 2D echo obtained and reviewed Continue current cardiac medications No indication for stress testing at this time Patient is stable for discharge today from a cardiac standpoint Nurse practitioner note has been reviewed by physician. Signing provider agrees with the documented findings, assessment, and plan of care documented by FAMILY PRACTITIONER as a scribe. Objective - Vital Signs Vital signs: Vital Signs Temp 97.9 F 07/08/24 07:00 Pulse 55 L 07/08/24 07:00 Resp 18 07/08/24 07:00 BP 129/82 07/08/24 07:00 Pulse Ox 96 07/08/24 07:00 FiO2 Intake & Output 07/07/24 07/08/24 07/08/24 18:59 06:59 18:59 Intake Total 240 Output Total 575 800 Balance -575 -800 240 Intake: Oral 240 Output: Urine 575 800 Other: Voiding Method Urinal - Labs CBC & Chem 7: 07/06/24 23:50 07/06/24 23:50
--- NOTE | 2024-07-10 13:03 | P.DS ---
Providers Date of admission: 07/06/24 17:55 Expected date of discharge: 07/08/24 Attending physician: Ramon Delcid Consults: 07/06/24 17:55 Consult Physician Routine Consulting Provider: Soniya Lancaster Consult Reason/Comments: sz Do you want consulting provider notified?: Yes Consult Physician Routine Consulting Provider: Vamshi Cisneros Consult Reason/Comments: cp Do you want consulting provider notified?: Yes Primary care physician: Jaziel Lockhart Hospital Course: Final diagnosis -breakthrough seizures -Chest pain, ruled out acute coronary syndromes, cleared by cardiology to be discharged. Patient did get an echocardiogram which did not show any significant pathology -Left parietal hemorrhagic stroke in 2015 with residual right-sided hemiparesis - Depression -History of CVA -Hyperlipidemia -Continued ongoing nicotine dependence -Previous history of severe alcohol abuse - Hypertension - GI prophylaxis -DVT prophylaxis - Full code Discharge disposition Patient is being discharged in a stable condition with guarded prognosis to home. Patient will follow-up with Dr. Ware in the outpatient setting upon discharge. Patient is to continue with current medications and follow-up with his neurologist outpatient as scheduled. Total time taken is greater than 35 minutes. Hospital course This is a 58-year-old male with history of epilepsy hemorrhagic stroke in 2015 and some residual right-sided hemiparesis came in as patient was not able to get out of the bed quite lethargic which as per them a seizure for the patient. Patient takes Lamictal 2 to 3 mg twice a day and briviact 150 mg twice a day. Lamictal levels are being obtained. Neurology evaluated the patient. Patient is getting extensive evaluation as an outpatient at [facility]'s and as per the patient patient is even scheduled for surgery for epilepsy. Neurology is recommending monitoring while overnight and not planning on increasing or changing any of the doses of his medications or adding any medications. Patient was also complaining of chest pain because of which cardiology evaluate the patient was were negative EKG did not show any acute ST or T wave changes. Priscilla ent was cleared from cardiology perspective to be discharged. CT of the head did not show any acute intracranial abnormality.-Possible breakthrough seizure 07/08/2024 Patient seen in follow-up this morning with neurology following recommending some adjustments to medications although patient does not want to change medication regimen at this time and would prefer to follow-up with primary neurologist outpatient. Patient will need cardiology follow-up outpatient as well for further diagnostic testing. Patient has been encouraged to continue with medication compliance. Patient would like to go home. Patient has been referred by consultations. Please refer to consultation notes for further HPI. PHYSICAL EXAMINATION: GENERAL: The patient is alert and oriented x3, not in any acute distress. Well developed, well nourished. HEENT: Pupils are round and equally reacting to light. EOMI. No scleral icterus. No conjunctival pallor. Normocephalic, atraumatic. No pharyngeal erythema. No th yromegaly. CARDIOVASCULAR: S1 and S2 present. No murmurs, rubs, or gallops. PULMONARY: Chest is clear to auscultation, no wheezing or crackles. ABDOMEN: Soft, nontender, nondistended, normoactive bowel sounds. No palpable organomegaly. MUSCULOSKELETAL: No joint swelling or deformity. EXTREMITIES: No cyanosis, clubbing, or pedal edema. NEUROLOGICAL: Gross neurological examination did not reveal any new focal deficits. SKIN: No rashes. Currently no reports of chest pain, shortness of breath, or palpitations. Patient is afebrile. No reports of nausea or vomiting and patient is tolerating diet. Patient [facility] be going to [facility]. Please refer to medication reconciliation see for further medications The impression and plan of care has been dictated by Freda Ellis, Nurse Practitioner as directed. Dr. Lu MD I have performed a history and examination and MDM of this patient, discussed the same with the dictator, and agree with the dictator's assessment and plan as written ,documented as a scribe. Based on total visit time, I have performed more than 50% of the visit. Patient Condition at Discharge: Fair Plan - Discharge Summary New Discharge Prescriptions: New Acetaminophen Tab [Tylenol] 650 mg PO Q6HR PRN tab PRN Reason: Mild Pain Or Fever > 100.5 Folic Acid 1 mg PO DAILY #30 tab Multivitamins, Thera [Multivitamin (formulary)] 1 each PO DAILY #30 tab Thiamine [Vitamin B-1] 100 mg PO DAILY #30 tab Continue Famotidine [Pepcid] 20 mg PO BID #60 tab Atorvastatin [Lipitor] 80 mg PO DAILY Tamsulosin [Flomax] 0.4 mg PO DAILY lamoTRIgine [LaMICtal] 200 mg PO BID Brivaracetam [Briviact] 100 mg PO BID Brivaracetam [Briviact] 50 mg PO BID Midazolam [Nayzilam] 5 mg NASAL DIRECTED PRN PRN Reason: Seizures Baclofen [Lioresal] 20 mg PO TID Nitroglycerin Sl Tabs [Nitrostat] 0.4 mg SL Q5M PRN PRN Reason: Chest Pain carvediloL [Coreg] 25 mg PO BID #60 tablet Aspirin EC [Ecotrin Low Dose] 81 mg PO DAILY amLODIPine [Norvasc] 5 mg PO DAILY Cholecalciferol [Vitamin D3 (25 Mcg = 1000 Iu)] 50 mcg PO DAILY lamoTRIgine [LaMICtal] 50 mg PO BID QUEtiapine [SEROquel] 400 mg PO HS Discharge Medication List Famotidine [Pepcid] 20 mg PO BID #60 tab 11/21/18 [Rx] carvediloL [Coreg] 25 mg PO BID #60 tablet 07/13/21 [Rx] Aspirin EC [Ecotrin Low Dose] 81 mg PO DAILY 09/04/21 [History] Atorvastatin [Lipitor] 80 mg PO DAILY 11/07/21 [History] Tamsulosin [Flomax] 0.4 mg PO DAILY 02/20/22 [History] amLODIPine [Norvasc] 5 mg PO DAILY 02/20/22 [History] lamoTRIgine [LaMICtal] 200 mg PO BID 09/18/22 [History] Cholecalciferol [Vitamin D3 (25 Mcg = 1000 Iu)] 50 mcg PO DAILY 06/20/23 [History] Brivaracetam [Briviact] 50 mg PO BID 04/26/24 [History] Brivaracetam [Briviact] 100 mg PO BID 04/26/24 [History] Midazolam [Nayzilam] 5 mg NASAL DIRECTED PRN 04/26/24 [History] QUEtiapine [SEROquel] 400 mg PO HS 04/26/24 [History] lamoTRIgine [LaMICtal] 50 mg PO BID 04/26/24 [History] Baclofen [Lioresal] 20 mg PO TID 07/06/24 [History] Nitroglycerin Sl Tabs [Nitrostat] 0.4 mg SL Q5M PRN 07/06/24 [History] Acetaminophen Tab [Tylenol] 650 mg PO Q6HR PRN tab 07/08/24 [Rx] Folic Acid 1 mg PO DAILY #30 tab 07/08/24 [Rx] Multivitamins, Thera [Multivitamin (formulary)] 1 each PO DAILY #30 tab 07/08/24 [Rx] Thiamine [Vitamin B-1] 100 mg PO DAILY #30 tab 07/08/24 [Rx] Follow up Appointment(s)/Referral(s): Jaziel Lockhart MD [Primary Care Provider] - 1-2 days Patient Instructions/Handouts: Seizure/Epilepsy Discharge Instructions & Follow-Up, Recurrent Seizures in Adults (DC) Activity/Diet/Wound Care/Special Instructions: Activity limited until follow-up Continue taking medications as prescribed Follow-up with primary care provider on discharge Follow-up with your primary neurologist this week Follow-up cardiology outpatient Avoid alcohol use Discharge Disposition: HOME SELF-CARE
== END 2024-07-08 12:28 | disposition home or self-care (01) ==
LOC: EC 15:34 → 6NMEDSUR 17:55
PROVIDERS: ADMIT Hospitalist; ATTEND Hospitalist
DX: G40.909 Epilepsy, unspecified, not intractable, without status epilepticus (principal); R07.89 Other chest pain; I69.351 Hemiplegia and hemiparesis following cerebral infarction affecting right dominant side; I10 Essential (primary) hypertension; E78.5 Hyperlipidemia, unspecified; E86.0 Dehydration; F17.210 Nicotine dependence, cigarettes, uncomplicated; F31.9 Bipolar disorder, unspecified; F41.0 Panic disorder [episodic paroxysmal anxiety]; F10.11 Alcohol abuse, in remission; Z79.82 Long term (current) use of aspirin; Z79.899 Other long term (current) drug therapy
CPT/HCPCS: 96361; 96374; 96375; 99285; 36415; 94760; 93005; 93306; 83880; 80061; 80053; 80175; 82140; 82803; 83605; 83690; 83735; 84100; 84484; 85025; 85610; 85730; 81003; 83036; 87636; 71046; 70450; G0378 ×3; G0480; J2270; J3360; J1953; 80320

== ENCOUNTER → 2024-10-06 | Outpatient (CLI) | payer OTHER ==
[2024-10-06 19:48] LABS: ALT 21 U/L (10-49); AST 18 U/L (14-35); Albumin 4.4 g/dL (3.8-4.9); Albumin/Globulin Ratio 1.91 Ratio (1.60-3.17); Alkaline Phosphatase 106 U/L (41-126); Anion Gap 11.40 mmol/L (4.00-12.00); BUN/Creat Ratio 9.00 Ratio (12.00-20.00); Blood Urea Nitrogen 9.9 mg/dL (9.0-27.0); Calcium 9.3 mg/dL (8.7-10.3); Carbon Dioxide 23.6 mmol/L (21.6-31.8); Chloride 106 mmol/L (96-109); Globulin 2.3 g/dL (1.6-3.3); Glucose 99 mg/dL (70-110); Potassium 4.7 mmol/L (3.5-5.5); Sodium 141 mmol/L (135-145); Total Protein 6.7 g/dL (6.2-8.2)
[2024-10-07 02:12] LABS: HCT 45.6 % (39.6-50.0); HGB 15.0 g/dL (13.0-17.0); MCH 32.5 pg (27.0-32.0); MCHC 32.9 g/dL (32.0-37.0); MCV 98.7 FL (80.0-97.0); NRBC Per 100 WBC 0 X 10*3/uL (0.00-0.01); Platelet Count 231 X 10*3/uL (140-440); RBC 4.62 X 10*6/uL (4.40-5.60); RDW 12.4 % (11.5-14.5); WBC 6.95 X 10*3/uL (4.50-10.00)
== END | disposition home or self-care (01) ==
LOC: LABWHC1 14:34
PROVIDERS: ATTEND Neurological Surgery
DX: G40.109 Localization-related (focal) (partial) symptomatic epilepsy and epileptic syndromes with simple partial seizures, not intractable, without status epilepticus (principal)
CPT/HCPCS: 36415; 80053; 85027